=== PATIENT | male | born 1960 | race Caucasian/White ===

== ENCOUNTER 2016-05-01 06:13 | Emergency (ER) | payer OTHER ==
[~2016-05-01] VITALS: Ht 167.6 cm; Wt 90.1 kg
[~2016-05-01 06:13] MED LIST: ALBUAER2 PO; ANT25 PO; ATR25 PO; FLUT0.15 NAE; FLV1 PO; FRS/40 PO; LCTL30 PO; OMEP20CA9 PO; ONDA4TAB46 PO; RIFA550T2 PO; SPRN100 PO; THIA100T11 PO; VALA1TAB31 PO; VTMB12100 PO
[2016-05-01 06:18] VITALS: Ht 167.6 cm; Wt 90.1 kg
[2016-05-01] MEDS ORDERED: SODIUM CHLORIDE 0.9% 1000ML 1,000 ML IV STA (06:40)
[2016-05-01] MEDS ORDERED: ONDANSETRON INJ 2 MG/ML 2 ML VIAL IV PRN (06:45)
[2016-05-01] MEDS ORDERED: VNTHFA/IN INH (06:54)
[2016-05-01 06:56] LABS: ALT/SGPT 37 U/L (12-78); BLOOD UREA NITROGEN 14 mg/dl (7-18); BUN/CREATININE RATIO 10.8 (10-20); CALCIUM 9.2 mg/dl (8.5-10.1); CARBON DIOXIDE 23 mmol/L (21-32); CHLORIDE 98 mmol/L (98-107); GLUCOSE 115 mg/dl (70-99); POTASSIUM 3.5 mmol/L (3.5-5.1); SODIUM 133 mmol/L (136-145)
--- NOTE | 2016-05-01 06:59 | EMERGENCY ROOM VISIT NOTE ---
History Report prepared by Stanley: Dakota Richardson Under the Supervision of: Dr. Kendall Faye M.D. First contact with patient: 06:36 Chief Complaint: ABDOMINAL PAIN Stated Complaint: ABDOMINAL PAIN Nursing Triage Summary: PT REPORTS 3 day of abdominal pain with a hx of cirrohsis , pt states now my head hurts and this means my ammonia level is increased , and when I move my head I feel nauseated reports increased pain with BM X 2 days. History of Present Illness The patient is a 56 year old male who presents to the Emergency Room with complaints of persistent abdominal pain for the past 3 days. The patient also complains of headache and nausea. He describes the headache as a pressure. The patient thinks this is because his ammonia levels are high. The discomfort is relieved by resting and laying down. The patient notes that he has a history of cirrhosis and used to be a heavy drinker. He denies any trouble moving his bowels or passing urine. Source of History: patient Onset: 3 days Position: abdomen Timing: other (persistent) Modifying Factors (Relieving): rest, other (laying down) Associated Symptoms: + headache, No urinary symptoms Note: Denies: trouble moving his bowels Review of Systems All systems have been listed, reviewed, and are negative other than those previously mentioned. Please see Additional Medical History Sheet. 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 (7) Genital herpes (8) Hepatic encephalopathy (9) History of portal vein thrombosis (10) Portal hypertensive gastropathy (11) Thrombocytopenia (12) Tobacco Use Disorder Surgical Problems: (1) History of carpal tunnel surgery (2) History of dental surgery Family History Alcohol abuse SISTER Cancer MOTHER (Lymphoma) Diabetes mellitus FATHER Heart disease Hypertension Social History Smoking Status: Former Smoker Alcohol Use: none Drug Use: none Marital Status: , in relationship Housing Status: lives alone Occupation Status: unemployed Current/Historical Medications Scheduled Cyanocobalamin (Vitamin B-12), 100 MCG PO QAM Fluticasone Propionate (Nasal) (Flonase Allergy Relief), 2 SPRAYS GUANAKO DAILY Folic Acid (Folic Acid), 1 MG PO QAM Furosemide (Lasix), 40 MG PO BID Lactulose (Lactulose), 2 TBS PO QID Omeprazole (Prilosec), 40 MG PO DAILY Rifaximin (Xifaxan), 550 MG PO BID Spironolactone (Spironolactone), 300 MG PO DAILY Thiamine Hcl (Vitamin B-1), 100 MG PO QAM Valacyclovir Hcl (Valtrex), 1 GM PO QAM Scheduled PRN Albuterol Hfa (Ventolin Hfa), 2 PUFFS INH Q4 PRN for SOB/Wheezing Hydroxyzine HCl (Hydroxyzine HCl), 25 MG PO Q6 PRN for Anxiety Ondansetron Hcl (Zofran), 4 MG PO Q6 PRN for Nausea Allergies Coded Allergies: No Known Allergies (Unverified , 05/01/16) Physical Exam Vital Signs Date Time Temp Pulse Resp B/P Pulse Ox O2 Delivery O2 Flow Rate FiO2 05/01/16 15:31 36.4 80 18 125/75 98 05/01/16 15:31 80 18 125/75 98 Room Air 05/01/16 11:51 80 18 123/77 98 Room Air 05/01/16 10:00 72 18 131/70 100 Room Air 05/01/16 09:07 84 05/01/16 07:44 73 16 109/74 93 Room Air 05/01/16 06:23 76 05/01/16 06:18 36.4 78 18 142/82 96 Room Air Physical Exam GENERAL: Patient awake, alert, oriented x 3. Patient follows commands. Patient does not appear toxic. Patient is adequately hydrated and well- nourished. SKIN: No erythema, pallor, cyanosis or rash HEENT: Normal head, pupils equal, reactive to light and accommodation. Oral cavity is edentulous. Neck: Without adenopathy, no neck vein distention. LUNGS: Clear to auscultation. No wheezes, no rales, no rhonchi. HEART: No murmurs. No gallops. No rubs ABDOMEN: Slightly distended but nontender. No masses, no rebound, no hepatomegaly or splenomegaly. EXTREMITIES: No signs of trauma. No pedal or pretibial edema. No calf or thigh tenderness. NEUROLOGIC: Cranial nerves II-XII within normal limits. No gross motor sensory function deficits. Medical Decision & Procedures ER Provider Diagnostic Interpretation: CT results are interpretations by the radiologist and per my review. CT ABD/PELVIS IV AND ORAL CONT CLINICAL HISTORY: Abdominal pain. Cirrhosis. Nausea, vomiting. COMPARISON STUDY: 11/18/2015 TECHNIQUE: Following the IV administration of 93 mL of Optiray-320, CT scan of the abdomen and pelvis was performed from the lung bases to the proximal femurs. Images are reviewed in the axial, sagittal, and coronal planes. IV contrast was administered without complication. CT DOSE: 881.22 mGycm FINDINGS: Lower chest: There is mild bibasilar atelectasis Liver: The liver has a nodular serosal pattern consistent with cirrhosis. No focal hepatic masses are visualized. There is recanalization of the umbilical vein. Gallbladder: There is minimal pericholecystic edema/fluid, likely secondary to hepatocellular disease. Spleen: The spleen is enlarged measuring 15 cm Pancreas: Unremarkable. Adrenal glands: Unremarkable. Kidneys: There is symmetric renal cortical enhancement. The kidneys are normal in size without hydronephrosis. Bowel: There are no transition zones indicate bowel obstruction. The appendix appears normal. There is no acute diverticulitis. Peritoneum: There is no intraperitoneal free air or abdominal ascites. Vasculature: The abdominal aorta is normal in course and caliber. Adenopathy: None. Pelvic viscera: The bladder, and pelvic viscera are unremarkable. Skeletal structures: No destructive osseous lesions are seen. IMPRESSION: 1. Hepatic cirrhosis with evidence of portal hypertension and splenomegaly. 2. No evidence of bowel obstruction. No evidence of free air 3. Normal appendix. No acute inflammatory changes Electronically signed by: Layo Murillo M.D. 05/01/2016 1:04 PM Dictated Date/Time: 05/01/2016 1:00 PM Laboratory Results 05/01/16 06:25 Red Blood Count 4.42, Mean Corpuscular Volume 97.3, Mean Corpuscular Hemoglobin 35.7, Mean Corpuscular Hemoglobin Concent 36.7, Mean Platelet Volume 12.2, Neutrophils (%) (Auto) 54.6, Lymphocytes (%) (Auto) 28.9, Monocytes (%) (Auto) 12.6, Eosinophils (%) (Auto) 2.9, Basophils (%) (Auto) 0.9, Neutrophils # (Auto ) 3.79, Lymphocytes # (Auto) 2.00, Monocytes # (Auto) 0.87, Eosinophils # (Auto ) 0.20, Basophils # (Auto) 0.06 05/01/16 06:25 Test 05/01/16 06:25 05/01/16 06:55 05/01/16 09:04 White Blood Count 6.93 K/uL (4.8-10.8) Red Blood Count 4.42 M/uL (4.7-6.1) Hemoglobin 15.8 g/dL (14.0-18.0) Hematocrit 43.0 % (42-52) Mean Corpuscular Volume 97.3 fL (80-100) Mean Corpuscular Hemoglobin 35.7 pg (25-34) Mean Corpuscular Hemoglobin Concent 36.7 g/dl (32-36) Platelet Count 72 K/uL (130-400) Mean Platelet Volume 12.2 fL (7.4-10.4) Neutrophils (%) (Auto) 54.6 % Lymphocytes (%) (Auto) 28.9 % Monocytes (%) (Auto) 12.6 % Eosinophils (%) (Auto) 2.9 % Basophils (%) (Auto) 0.9 % Neutrophils # (Auto) 3.79 K/uL (1.4-6.5) Lymphocytes # (Auto) 2.00 K/uL (1.2-3.4) Monocytes # (Auto) 0.87 K/uL (0.11-0.59) Eosinophils # (Auto) 0.20 K/uL (0-0.5) Basophils # (Auto) 0.06 K/uL (0-0.2) RDW Standard Deviation 50.2 fL (36.4-46.3) RDW Coefficient of Variation 14.0 % (11.5-14.5) Immature Granulocyte % (Auto) 0.1 % Immature Granulocyte # (Auto) 0.01 K/uL (0.00-0.02) Anion Gap 12.0 mmol/L (3-11) Est Creatinine Clear Calc Drug Dose 66.7 ml/min Estimated GFR () 70.7 Estimated GFR (Non- 61.0 BUN/Creatinine Ratio 10.8 (10-20) Calcium Level 9.2 mg/dl (8.5-10.1) Total Bilirubin 1.6 mg/dl (0.2-1) Aspartate Amino Transf (AST/SGOT) 57 U/L (15-37) Alanine Aminotransferase (ALT/SGPT) 37 U/L (12-78) Alkaline Phosphatase 93 U/L (45-117) Troponin I < 0.015 ng/ml (0-0.045) Total Protein 8.0 gm/dl (6.4-8.2) Albumin 3.6 gm/dl (3.4-5.0) Globulin 4.4 gm/dl (2.5-4.0) Albumin/Globulin Ratio 0.8 (0.9-2) Lipase 224 U/L (73-393) Ammonia 69.0 umol/L (11-32) Urine Color YELLOW Urine Appearance CLEAR (CLEAR) Urine pH 6.5 (4.5-7.5) Urine Specific Goode 1.018 (1.000-1.030) Urine Protein NEG (NEG) Urine Glucose (UA) NEG (NEG) Urine Ketones TRACE (NEG) Urine Occult Blood NEG (NEG) Urine Nitrite POS (NEG) Urine Bilirubin NEG (NEG) Urine Urobilinogen NEG (NEG) Urine Leukocyte Esterase SMALL (NEG) Urine WBC (Auto) 5-10 /hpf (0-5) Urine RBC (Auto) 0-4 /hpf (0-4) Urine Hyaline Casts (Auto) 1-5 /lpf (0-5) Urine Epithelial Cells (Auto) >30 /lpf (0-5) Urine Bacteria (Auto) 2+ (NEG) Urine Mucus PRESENT (NONE PRSENT) Laboratory results as stated above per my review. Medications Administered Medications (Trade) Dose Ordered Sig/Kiya Route Start Time Stop Time Status Last Admin Dose Admin Ondansetron HCl 4 mg 4 mg Q1HWA PRN IV 05/01/16 06:45 05/01/16 15:47 DC 05/01/16 06:58 4 MG Sodium Chloride (Nss 1000ml) 1,000 ml @ 300 mls/hr Q3H20M STAT IV 05/01/16 06:40 05/01/16 09:59 DC 05/01/16 07:01 300 MLS/HR ECG Indication: abdominal pain Rate (beats per minute): 83 Rhythm: normal sinus Findings: no acute ischemic change, prolonged QT, no ectopy ED Course 0636: Past medical records reviewed. The patient was evaluated in room B6. A complete history and physical examination was performed. 0640: Ordered NSS 1000 ml @ 300 mls/hr IV. 0645: Ordered Zofran Inj 4 mg IV/nausea. 0955: At this time, the patient was reevaluated and he was resting. The patient was still having discomfort. Further testing was discussed and ordered. 1341: At this time, I reevaluated the patient and he was starting to feel better. He wants to try to walk and eat. 1457: Upon reevaluation, the patient appeared to have improvement of his symptoms. I discussed today's findings with him. He verbalized agreement of the treatment plan. The patient was discharged home. Medical Decision Differential diagnoses include hepatic failure, hyperammonemia, cirrhosis, or metabolic disorder. Multiple labs, EKG and imaging were obtained. Please see above. The patient has chronic cirrhosis. He was concerned that his ammonia level was too high. It is elevated but not nearly as high as it has been in the past. I do not believe that is the cause for his distress. The patient is not anemic. Electrolytes are grossly within normal range. The patient was given IV fluids. CT does not really obstruction or significant ascites. Urinalysis reveals some white cells but this may be a contaminated specimen. Culture is pending. Patient did have some improvement. He was able to ambulate without difficulty. I believe the patient can safely return home but I expect him to have recurrent problems with his cirrhosis. Case management also saw the patient to see about home health. Impression Primary Impression: Hepatic insufficiency Additional Impression: History of cirrhosis Scribe Attestation The scribe's documentation has been prepared under my direction and personally reviewed by me in its entirety. I confirm that the note above accurately reflects all work, treatment, procedures, and medical decision making performed by me. Departure Information Dispostion Home / Self-Care Referrals Najma Garcia M.D. (PCP) Forms Call Back Authorization, HOME CARE DOCUMENTATION FORM, IMPORTANT VISIT INFORMATION Patient Instructions My [facility] Additional Instructions Continue all of your current medications as prescribed. Drink extra fluids. Zofran as needed for nausea. Follow-up with your family physician and or your architectural model maker this week. Problem Qualifiers
[2016-05-01 07:00] LABS: ALB/GLOB RATIO 0.8 (0.9-2); ALKALINE PHOSPHATASE 93 U/L (45-117); AST/SGOT 57 U/L (15-37)
[2016-05-01 07:45] LABS: BASO % 0.9 %; BASO ABS # 0.06 K/uL (0-0.2); COMPLETE YES; EOS % 2.9 %; IG% 0.1 %; LYMPH % 28.9 %; MEAN CELL VOLUME 97.3 fL (80-100); MEAN CORPUSCULAR HEMOGLOBIN 35.7 pg (25-34); MEAN CORPUSCULAR HGB CONC 36.7 g/dl (32-36); MEAN PLATELET VOLUME 12.2 fL (7.4-10.4); MONO % 12.6 %; NEUT % 54.6 %; PLATELET COUNT 72 K/uL (130-400); RED BLOOD COUNT 4.42 M/uL (4.7-6.1); WHITE BLOOD COUNT 6.93 K/uL (4.8-10.8)
[2016-05-01 09:18] LABS: URINE APPEARANCE CLEAR (CLEAR); URINE BILIRUBIN NEG (NEG); URINE COLOR YELLOW; URINE EPITHELIAL CELL AUTO >30 /lpf (0-5); URINE NITRITE POS (NEG); URINE PH 6.5 (4.5-7.5); URINE SPECIFIC GRAVITY 1.018 (1.000-1.030); UROBILINOGEN NEG (NEG); ZZUR CULT IF INDIC CLEAN CATCH YES
[2016-05-01 09:23] LABS: MANUAL MICROSCOPIC REQUIRED? NO; REVIEW REQ? YES
[2016-05-01 09:42] LABS: URINE MUCUS PRESENT (NONE PRSENT)
[2016-05-01] MEDS ORDERED: OPTIRAY 320 IV PRN (12:30)
--- NOTE | 2016-05-01 13:05 | DIAGNOSTIC IMAGING REPORT ---
CT ABD/PELVIS IV AND ORAL CONT CLINICAL HISTORY: Abdominal pain. Cirrhosis. Nausea, vomiting. COMPARISON STUDY: 11/18/2015 TECHNIQUE: Following the IV administration of 93 mL of Optiray-320, CT scan of the abdomen and pelvis was performed from the lung bases to the proximal femurs. Images are reviewed in the axial, sagittal, and coronal planes. IV contrast was administered without complication. CT DOSE: 881.22 mGycm FINDINGS: Lower chest: There is mild bibasilar atelectasis Liver: The liver has a nodular serosal pattern consistent with cirrhosis. No focal hepatic masses are visualized. There is recanalization of the umbilical vein. Gallbladder: There is minimal pericholecystic edema/fluid, likely secondary to hepatocellular disease. Spleen: The spleen is enlarged measuring 15 cm Pancreas: Unremarkable. Adrenal glands: Unremarkable. Kidneys: There is symmetric renal cortical enhancement. The kidneys are normal in size without hydronephrosis. Bowel: There are no transition zones indicate bowel obstruction. The appendix appears normal. There is no acute diverticulitis. Peritoneum: There is no intraperitoneal free air or abdominal ascites. Vasculature: The abdominal aorta is normal in course and caliber. Adenopathy: None. Pelvic viscera: The bladder, and pelvic viscera are unremarkable. Skeletal structures: No destructive osseous lesions are seen. IMPRESSION: 1. Hepatic cirrhosis with evidence of portal hypertension and splenomegaly. 2. No evidence of bowel obstruction. No evidence of free air 3. Normal appendix. No acute inflammatory changes Electronically signed by: Layo Murillo M.D. 05/01/2016 1:04 PM Dictated Date/Time: 05/01/2016 1:00 PM
[2016-05-01 15:31] VITALS: BP 125/75; PULSE 80; TEMP 36.4; O2SAT 98
--- NOTE | 2016-05-03 17:45 | Pharmacy Progress Note ---
ED Pharmacist Culture FollowUp Date of Service: May 03, 2016. Coag negative Staph growing from the patient's urine culture. UA with multiple epithelial cells. Patient denied trouble passing urine. Likely contaminant. Called patient - denied dysuria in addition to urinary urgency/hesitancy. No antibiotics needed at this time. Counseled to see PCP if any of aforementioned symptoms develop. Case discussed w Dr. Sorto.
== END 2016-05-01 15:32 | disposition home or self-care (01) ==
LOC: EDBD 06:13 → C.EDB 06:14
DX: K72.90 Hepatic failure, unspecified without coma (principal); K70.31 Alcoholic cirrhosis of liver with ascites; I85.10 Secondary esophageal varices without bleeding; Z86.2 Personal history of diseases of the blood and blood-forming organs and certain disorders involving the immune mechanism; Z86.718 Personal history of other venous thrombosis and embolism; D69.6 Thrombocytopenia, unspecified; Z87.891 Personal history of nicotine dependence; Z80.9 Family history of malignant neoplasm, unspecified; Z83.3 Family history of diabetes mellitus; Z82.49 Family history of ischemic heart disease and other diseases of the circulatory system; Z79.899 Other long term (current) drug therapy

== ENCOUNTER 2016-05-17 21:33 | Emergency (ER) | payer OTHER ==
[~2016-05-17] VITALS: Ht 167.6 cm; Wt 93.0 kg
[2016-05-17 21:20] VITALS: TEMP 36.7; Ht 167.6 cm; Wt 93.0 kg
[~2016-05-17 21:33] MED LIST changes: -ALBUAER2 PO; -ANT25 PO; -FLUT0.15 NAE; -FLV1 PO; -FRS/40 PO; -LCTL30 PO; -ONDA4TAB46 PO; -RIFA550T2 PO; -SPRN100 PO; -THIA100T11 PO; -VALA1TAB31 PO; -VTMB12100 PO
[2016-05-17] MEDS ORDERED: HYDROmorphone INJ 1 MG/ML SYR IV STA ×2 (22:28→23:20)
[2016-05-17] MEDS ORDERED: ONDANSETRON INJ 2 MG/ML 2 ML VIAL IV STA (22:28)
[2016-05-17] MEDS ORDERED: SODIUM CHLORIDE 0.9% 1000ML 1,000 ML IV STA (22:28)
--- NOTE | 2016-05-17 22:44 | EMERGENCY ROOM VISIT NOTE ---
History Report prepared by Stanley: Jami Newby Under the Supervision of: Dr. Efra Seymour M.D. First contact with patient: 22:17 Chief Complaint: LEG PAIN,LEG INJURY Stated Complaint: ARM & LEG CRAMPING History of Present Illness The patient is a 56 year old male who presents to the Emergency Room with complaints of persistent bilateral leg pain that began two hours prior to arrival. He currently rates his discomfort as an 8/10 in severity and describes his pain as a cramping pain. The patient states that he has had similar pain in the past, but not this severe. He states that two hours ago he first started his right arm going numb. The patient states that he went to lie down and then noted that he could not get out of bed because his legs cramped. The patient noted a stabbing pain in his left chest. He states that his leg pain has been worsened with movement. The patient additionally notes a pressure headache in his head. Source of History: patient Onset: two hours prior to arrival Position: leg (bilateral) Symptom Intensity: 8/10 Quality: cramping Timing: other (persistent) Modifying Factors (Worsening): movement Associated Symptoms: + chest pain (stabbing left chest), + headache ( pressure), + numbness (right arm) Review of Systems See HPI for pertinent positives & negatives. A total of 10 systems reviewed and were otherwise negative. 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 (7) Genital herpes (8) Hepatic encephalopathy (9) History of portal vein thrombosis (10) Portal hypertensive gastropathy (11) Thrombocytopenia (12) Tobacco Use Disorder Surgical Problems: (1) History of carpal tunnel surgery (2) History of dental surgery Family History Alcohol abuse SISTER Cancer MOTHER (Lymphoma) Diabetes mellitus FATHER Heart disease Hypertension Social History Smoking Status: Former Smoker Alcohol Use: none Drug Use: none Marital Status: , in relationship Housing Status: lives alone Occupation Status: unemployed Current/Historical Medications Scheduled Cyanocobalamin (Vitamin B-12), 100 MCG PO QAM Doxycycline Monohydrate (Monodox), 100 MG PO BID Folic Acid (Folic Acid), 1 MG PO QAM Furosemide (Lasix), 40 MG PO BID Lactulose (Lactulose), 2 TBS PO QID Omeprazole (Prilosec), 40 MG PO DAILY Rifaximin (Xifaxan), 550 MG PO BID Spironolactone (Spironolactone), 300 MG PO DAILY Thiamine Hcl (Vitamin B-1), 100 MG PO QAM Valacyclovir Hcl (Valtrex), 1 GM PO QAM Scheduled PRN Albuterol Hfa (Ventolin Hfa), 2 PUFFS INH Q4 PRN for SOB/Wheezing Fluticasone Propionate (Nasal) (Flonase Allergy Relief), 2 SPRAYS GUANAKO DAILY PRN for PRN\ Hydroxyzine HCl (Hydroxyzine HCl), 25 MG PO Q6 PRN for Anxiety Ondansetron Hcl (Zofran), 4 MG PO Q6 PRN for Nausea Allergies Coded Allergies: No Known Allergies (Unverified , 05/17/16) Physical Exam Vital Signs Date Time Temp Pulse Resp B/P Pulse Ox O2 Delivery O2 Flow Rate FiO2 05/18/16 02:34 84 18 121/73 97 05/18/16 01:59 78 16 124/81 96 Room Air 05/18/16 00:20 79 20 98/84 94 Room Air 05/17/16 23:20 76 18 121/70 94 Room Air 05/17/16 21:38 72 05/17/16 21:20 36.7 77 20 130/72 97 Room Air Physical Exam GENERAL: Patient is a healthy-appearing well-nourished HEAD: Normocephalic atraumatic EYES: Ocular movements intact pupils equal and react to light OROPHARYNX mucous membranes are moist no exudates present no erythema or edema present NECK: Supple no nuchal rigidity CHEST: Good equal expansion LUNGS: Clear and equal to auscultation CARDIAC: Normal S1 and S2 ABDOMEN: Soft nontender no guarding BACK: No CVA tenderness EXTREMITIES: No pain upon palpation normal muscle strength in all groups no clubbing cyanosis or edema NEURO: Patient is following commands is answering questions appropriately. Alert and oriented x3 Cranial Nerves 2-12 grossly intact Medical Decision & Procedures ER Provider Diagnostic Interpretation: Radiology results as stated below per my review and radiologist interpretation: HEAD CT NONCONTRAST CT DOSE: 614.27 mGy.cm HISTORY: Pain. Change in mental status. Pt c/o head pressure TECHNIQUE: Multiaxial CT images of the head were performed without the use of intravenous contrast. Comparison: 11/05/2015 Findings: The paranasal sinuses and mastoid air cells are clear. The calvarium and skull base are intact. The ventricles and sulci are within normal limits. There is no mass, hematoma, midline shift, or acute infarct. Impression: No acute intracranial abnormality. No change from the prior study. Electronically signed by: Samir Garcia M.D. 05/17/2016 10:56 PM Dictated Date/Time: 05/17/2016 10:55 PM One view chest x-ray interpreted by me: no pneumonia, congestion, or pneumothorax. Laboratory Results 05/17/16 21:45 Red Blood Count 3.74, Mean Corpuscular Volume 96.5, Mean Corpuscular Hemoglobin 35.3, Mean Corpuscular Hemoglobin Concent 36.6, Mean Platelet Volume 12.1, Neutrophils (%) (Auto) 51.2, Lymphocytes (%) (Auto) 25.4, Monocytes (%) (Auto) 19.6, Eosinophils (%) (Auto) 2.9, Basophils (%) (Auto) 0.9, Neutrophils # (Auto ) 2.80, Lymphocytes # (Auto) 1.39, Monocytes # (Auto) 1.07, Eosinophils # (Auto ) 0.16, Basophils # (Auto) 0.05 05/17/16 21:45 Test 05/17/16 21:45 05/17/16 22:28 05/18/16 00:20 White Blood Count 5.47 K/uL (4.8-10.8) Red Blood Count 3.74 M/uL (4.7-6.1) Hemoglobin 13.2 g/dL (14.0-18.0) Hematocrit 36.1 % (42-52) Mean Corpuscular Volume 96.5 fL (80-100) Mean Corpuscular Hemoglobin 35.3 pg (25-34) Mean Corpuscular Hemoglobin Concent 36.6 g/dl (32-36) Platelet Count 56 K/uL (130-400) Mean Platelet Volume 12.1 fL (7.4-10.4) Neutrophils (%) (Auto) 51.2 % Lymphocytes (%) (Auto) 25.4 % Monocytes (%) (Auto) 19.6 % Eosinophils (%) (Auto) 2.9 % Basophils (%) (Auto) 0.9 % Neutrophils # (Auto) 2.80 K/uL (1.4-6.5) Lymphocytes # (Auto) 1.39 K/uL (1.2-3.4) Monocytes # (Auto) 1.07 K/uL (0.11-0.59) Eosinophils # (Auto) 0.16 K/uL (0-0.5) Basophils # (Auto) 0.05 K/uL (0-0.2) RDW Standard Deviation 48.6 fL (36.4-46.3) RDW Coefficient of Variation 13.7 % (11.5-14.5) Immature Granulocyte % (Auto) 0.0 % Immature Granulocyte # (Auto) 0.00 K/uL (0.00-0.02) Large Platelets 1+ Anion Gap 11.0 mmol/L (3-11) Est Creatinine Clear Calc Drug Dose 67.7 ml/min Estimated GFR () 70.7 Estimated GFR (Non- 61.0 BUN/Creatinine Ratio 10.8 (10-20) Calcium Level 8.7 mg/dl (8.5-10.1) Total Bilirubin 1.4 mg/dl (0.2-1) Aspartate Amino Transf (AST/SGOT) 47 U/L (15-37) Alanine Aminotransferase (ALT/SGPT) 30 U/L (12-78) Alkaline Phosphatase 78 U/L (45-117) Total Creatine Kinase 173 U/L (39-308) Creatine Kinase MB 1.0 ng/ml (0.5-3.6) Troponin I < 0.015 ng/ml (0-0.045) Total Protein 6.8 gm/dl (6.4-8.2) Albumin 3.4 gm/dl (3.4-5.0) Globulin 3.4 gm/dl (2.5-4.0) Albumin/Globulin Ratio 1.0 (0.9-2) Creatine Kinase MB Ratio (0-3.0) Lyme Disease IgG Antibody POS (NEG) Labs reviewed by ED physician. Medications Administered Medications (Trade) Dose Ordered Sig/Kiya Route Start Time Stop Time Status Last Admin Dose Admin Sodium Chloride (Nss 1000ml) 1,000 ml @ 999 mls/hr Q1H1M STAT IV 05/17/16 22:28 05/17/16 23:28 DC 05/17/16 22:40 999 MLS/HR Hydromorphone HCl (Dilaudid Inj) 1 mg NOW STAT IV 05/17/16 22:28 05/17/16 22:31 DC 05/17/16 22:42 1 MG Ondansetron HCl (Zofran Inj) 4 mg NOW STAT IV 05/17/16 22:28 05/17/16 22:31 DC 05/17/16 22:40 4 MG Hydromorphone HCl (Dilaudid Inj) 1 mg NOW STAT IV 05/17/16 23:20 05/17/16 23:22 DC 05/17/16 23:29 1 MG Ketorolac Tromethamine (Toradol Inj) 30 mg NOW STAT IV 05/17/16 23:57 05/17/16 23:58 DC 05/18/16 00:15 30 MG Prochlorperazine Edisylate (Compazine Inj) 10 mg NOW STAT IV 05/17/16 23:57 05/17/16 23:58 DC 05/18/16 00:15 10 MG Diphenhydramine HCl (Benadryl Inj) 25 mg NOW STAT IV 05/17/16 23:57 05/17/16 23:58 DC 05/18/16 00:15 25 MG Magnesium Sulfate (Magnesium Sulfate) 1 gm NOW STAT IV 05/17/16 23:57 05/17/16 23:58 DC 05/18/16 00:15 1 GM Ceftriaxone Sodium (Rocephin Inj) 2 gm NOW STAT IV 05/18/16 01:28 05/18/16 01:29 DC 05/18/16 01:41 2 GM Doxycycline Hyclate 100 mg 100 mg ONE STAT PO 05/18/16 01:28 05/18/16 01:29 DC 05/18/16 01:41 100 MG Promethazine HCl/ Sodium Chloride (Phenergan Inj/ Nss 50ml) 51 ml @ 204 mls/hr NOW STAT IV 05/18/16 01:29 05/18/16 01:43 DC 05/18/16 01:54 204 MLS/HR ECG Indication: weakness Rate (beats per minute): 74 Rhythm: normal sinus Findings: no acute ischemic change, no ectopy ED Course 2222: Past medical records reviewed. The patient was evaluated in room C6. A complete history and physical examination was performed. 2228: Ordered Zofran Inj 4 mg IV, Dilaudid Inj 1 mg IV, Sodium Chloride 1000 ml @ 999 mls/hr IV. 2315: I reevaluated the patient and he does not feel any better. He will have further testing. 2320: Ordered Dilaudid Inj 1 mg IV. Medical Decision Differential diagnosis: Etiologies such as appendicitis, diverticulitis, PUD, biliary pathology, UTI, pancreatitis, obstruction, mesenteric ischemia, aortic pathology, infections, inflammatory bowel disease, renal colic, as well as others were entertained. This is a 56-year-old male who presents emergency Department with multiple complaints. The patient is complaining of head pressure along with right arm numbness along with bilateral leg cramping. The right arm numbness has been going on since at least 4 PM today. Aced on this finding I would expect this to show up on his CAT scan of his head if this were an acute stroke. As such it did not. In addition the patient also has a normal CTA head and neck. Because of the acuteness of the issue he was sent for an MRI of the head. His Lyme test is positive here in the emergency department for this reason he was started on 2 g of Rocephin here. I will continue the patient on doxycycline however I feel the patient needs to follow up with infectious disease. He was given a migraine cocktail for his symptoms which included Toradol Compazine and Benadryl. He was also fed in the emergency department. He has no evidence of meningitis or encephalitis on examination. Impression Primary Impression: Right upper extremity numbness Additional Impression: Lyme disease Scribe Attestation The scribe's documentation has been prepared under my direction and personally reviewed by me in its entirety. I confirm that the note above accurately reflects all work, treatment, procedures, and medical decision making performed by me. Departure Information Dispostion Home / Self-Care Prescriptions Doxycycline Monohydrate (Monodox) 100 Mg Cap 100 MG PO BID for 21 Days, #42 CAP Prov: Efra Seymour MD 05/18/16 Referrals Ezekiel Ruiz MD (PCP) Patient Instructions My [facility] Problem Qualifiers
[2016-05-17 22:46] LABS: HEMATOCRIT 36.1 % (42-52); MEAN CELL VOLUME 96.5 fL (80-100); MEAN CORPUSCULAR HEMOGLOBIN 35.3 pg (25-34); MEAN CORPUSCULAR HGB CONC 36.6 g/dl (32-36); MEAN PLATELET VOLUME 12.1 fL (7.4-10.4); PLATELET COUNT 56 K/uL (130-400); RED BLOOD COUNT 3.74 M/uL (4.7-6.1); WHITE BLOOD COUNT 5.47 K/uL (4.8-10.8)
[2016-05-17 22:49] LABS: BASO % 0.9 %; BASO ABS # 0.05 K/uL (0-0.2); COMPLETE YES; EOS % 2.9 %; LARGE PLATELETS 1+; LYMPH % 25.4 %; LYMPH ABS # 1.39 K/uL (1.2-3.4); MONO % 19.6 %; NEUT % 51.2 %
[2016-05-17 22:58] LABS: ALT/SGPT 30 U/L (12-78); AST/SGOT 47 U/L (15-37); BLOOD UREA NITROGEN 14 mg/dl (7-18); BUN/CREATININE RATIO 10.8 (10-20); CALCIUM 8.7 mg/dl (8.5-10.1); CARBON DIOXIDE 24 mmol/L (21-32); CHLORIDE 104 mmol/L (98-107); GLUCOSE 75 mg/dl (70-99); POTASSIUM 4.1 mmol/L (3.5-5.1); SODIUM 139 mmol/L (136-145)
--- NOTE | 2016-05-17 22:58 | DIAGNOSTIC IMAGING REPORT ---
HEAD CT NONCONTRAST CT DOSE: 614.27 mGy.cm HISTORY: Pain. Change in mental status. Pt c/o head pressure TECHNIQUE: Multiaxial CT images of the head were performed without the use of intravenous contrast. Comparison: 11/05/2015 Findings: The paranasal sinuses and mastoid air cells are clear. The calvarium and skull base are intact. The ventricles and sulci are within normal limits. There is no mass, hematoma, midline shift, or acute infarct. Impression: No acute intracranial abnormality. No change from the prior study. Electronically signed by: Samir Garcia M.D. 05/17/2016 10:56 PM Dictated Date/Time: 05/17/2016 10:55 PM
[2016-05-17 23:03] LABS: ALKALINE PHOSPHATASE 78 U/L (45-117); CKMB/CK RATIO 0.6 (0-3.0)
[2016-05-17] MEDS ORDERED: OPTIRAY 320 IV PRN (23:30)
[2016-05-17] MEDS ORDERED: PROCHLORPERAZINE 5 MG/ML 2 ML VIAL IV STA (23:57)
[2016-05-17] MEDS ORDERED: MAGNESIUM SULFATE 1GM / D5W 1 GM BAG IV STA (23:57)
[2016-05-17] MEDS ORDERED: DiphenhydrAMINE HCL 50 MG/ML VIAL IV STA (23:57)
[2016-05-17] MEDS ORDERED: KETOROLAC TROMETHAMINE 30 MG/ML VIAL IV STA (23:57)
[2016-05-18 01:26] LABS: LYME DISEASE AB IGG POS (NEG); LYME DISEASE AB IGM EQUIVOCAL (NEG)
[2016-05-18] MEDS ORDERED: DOXYCYCLINE HYCLATE 100 MG CAP PO STA (01:28)
[2016-05-18] MEDS ORDERED: CEFTRIAXONE SOD INJ 1 GM ADDVIAL IV STA (01:28)
[2016-05-18] MEDS ORDERED: PROMETHAZINE HCL INJ 25 MG in SODIUM CHLORIDE 0.9% 50ML 50 ML IV STA (01:29)
[2016-05-18] MEDS ORDERED: DOXY100C76 PO (02:10)
[2016-05-18 02:34] VITALS: BP 121/73; PULSE 84; O2SAT 97
--- NOTE | 2016-05-18 07:19 | DIAGNOSTIC IMAGING REPORT ---
MRI OF THE BRAIN WITHOUT IV CONTRAST CLINICAL HISTORY: Right upper extremity numbness. COMPARISON STUDY: CT of the brain dated 05/17/2016. MRI of the brain dated 11/15/2015. TECHNIQUE: MRI of the brain was performed utilizing various T1 and T2-weighted sequences in the axial, sagittal, and coronal planes. IV contrast was not administered for this examination. The examination is modestly degraded by motion artifact. FINDINGS: Brain parenchyma: There is minimal patchy subcortical and periventricular microangiopathic disease. The brain parenchyma is otherwise normal in appearance. There is no hemorrhage or mass effect. There is no restricted diffusion to suggest acute ischemia. Michel-white matter differentiation is preserved. No extra-axial fluid collection is seen. The cerebellar tonsils are normal in configuration. Ventricles, sulci, and cisterns: Normal in configuration. Pituitary and sella: Unremarkable. Intracranial vasculature: Normal flow voids are maintained at the skull base. Orbits: The bony orbits are grossly intact. Orbital contents are normal in appearance. Sinuses and mastoids: There is trace fluid within the mastoid air cells. The paranasal sinuses are clear. Calvarium: Unremarkable. Cervical cord: Partially visualized cervical spinal cord is normal in morphology and signal intensity. IMPRESSION: No acute intracranial abnormality. Electronically signed by: Jamil Freedman M.D. 05/18/2016 7:17 AM Dictated Date/Time: 05/18/2016 7:14 AM
--- NOTE | 2016-05-18 07:20 | DIAGNOSTIC IMAGING REPORT ---
NECK CTA HISTORY: Right arm numbness. TECHNIQUE: Multiaxial CT images of the neck were performed following the intravenous administration of contrast to evaluate the major cervical vessels. Maximum intensity projection images were also obtained. All measurements were calculated based on NASCET criteria. COMPARISON STUDY: None. FINDINGS: The aortic arch and proximal great vessels are widely patent. There is no significant stenosis, occlusion, or dissection identified within the bilateral common carotid, internal carotid, or vertebral arteries. IMPRESSION: No significant stenosis, occlusion, or dissection identified within the carotid or vertebral arteries. Electronically signed by: Ángel Wilson M.D. 05/18/2016 7:18 AM Dictated Date/Time: 05/18/2016 7:16 AM
--- NOTE | 2016-05-18 07:25 | DIAGNOSTIC IMAGING REPORT ---
CT ANGIOGRAM OF THE BRAIN CLINICAL HISTORY: Right upper extremity numbness. COMPARISON STUDY: Unenhanced CT of the brain dated 05/17/2016. MRI of the brain dated 11/15/2015. TECHNIQUE: Following the IV administration of 94 cc of Optiray 320, CT angiogram of the brain was performed from the skull base to the vertex. Images are reviewed in the axial, sagittal, and coronal planes. 3-D MIPS images are created and assessed. IV contrast was administered without complication. FINDINGS: Brain parenchyma: Brain parenchyma is normal in appearance. There is no evidence of hemorrhage, mass effect, or acute territorial ischemia by CT criteria. There is no evidence of enhancing mass lesion on these angiogram phase images. No extra-axial fluid collection is seen. Michel-white matter differentiation is preserved. Ventricles, sulci, and cisterns: Normal in configuration. CT angiogram of the brain: The [place] is developmentally complete noting small bilateral posterior communicating arteries. The internal carotid arteries are widely patent, as are the anterior and middle cerebral arteries. The vertebrobasilar system and posterior cerebral arteries are widely patent. The left vertebral artery is dominant. There is no aneurysm, high-grade stenosis, or focal vessel cutoff identified throughout the intracranial circulation. Dural sinuses: Clear as visualized. Orbits: The bony orbits are intact. The orbital contents are normal as visualized. Sinuses and mastoids: The visualized paranasal sinuses are clear. The mastoid air cells are well pneumatized. Calvarium: Unremarkable. IMPRESSION: 1. There is no hemorrhage, mass effect, or evidence of acute territorial ischemia by CT criteria. 2. Unremarkable CT angiogram of the brain. Electronically signed by: Jamil Freedman M.D. 05/18/2016 7:23 AM Dictated Date/Time: 05/18/2016 7:19 AM
--- NOTE | 2016-05-18 07:41 | DIAGNOSTIC IMAGING REPORT ---
SINGLE VIEW CHEST CLINICAL HISTORY: Atypical chest pain. FINDINGS: An AP, portable, upright chest radiograph is compared to study dated 11/05/2015. The examination is degraded by portable technique and apical lordotic positioning. The cardiomediastinal silhouette is unremarkable. The lungs and pleural spaces are clear. No pneumothorax is seen. The bony thorax is grossly intact. IMPRESSION: No active disease in the chest. Electronically signed by: Jamil Freedman M.D. 05/18/2016 7:39 AM Dictated Date/Time: 05/18/2016 7:39 AM
[2016-05-22 23:54] LABS: 18KDIGG BAND REACTIVE (NONREACTIVE); 23KDIGG BAND REACTIVE (NONREACTIVE); 23KDIGM BAND REACTIVE (NONREACTIVE); 28KDIGG BAND REACTIVE (NONREACTIVE); 30KDIGG BAND REACTIVE (NONREACTIVE); 39KDIGG BAND REACTIVE (NONREACTIVE); 39KDIGM BAND NONREACTIVE (NONREACTIVE); 41KDIGG BAND REACTIVE (NONREACTIVE); 41KDIGM BAND NONREACTIVE (NONREACTIVE); 45KDIGG BAND REACTIVE (NONREACTIVE); 58KDIGG BAND REACTIVE (NONREACTIVE); 66KDIGG BAND REACTIVE (NONREACTIVE); 93KDIGG BAND REACTIVE (NONREACTIVE)
--- NOTE | 2016-05-23 11:40 | Pharmacy Progress Note ---
ED Pharmacist Culture FollowUp Date of Service: May 23, 2016. Received notification from the lab today that this patient's Lyme IgG Western Blot is positive. The patient had been dx w/ Lyme dz in the ER on 05/[address] Seymour. He was given Rocephin 2mg IV and Doxy 100mg PO in the ER, then discharged w/ Rx for Doxycycline 100mg PO BID x 21 days and instructed to f/u with infectious disease. No further action required.
[2016-12-07] MEDS ORDERED: VNTHFA/IN INH (06:54)
[2016-12-07] MEDS ORDERED: OMEP40CA41 PO (08:53)
[2016-12-07] MEDS ORDERED: LCTL30 PO (09:54)
[2016-12-07] MEDS ORDERED: ONDA4TAB46 PO (09:54)
[2016-12-07] MEDS ORDERED: VTMB12100 PO (10:46)
[2016-12-07] MEDS ORDERED: FRS/40 PO (10:48)
[2016-12-07] MEDS ORDERED: FLUT0.15 NAE (14:29)
[2016-12-07] MEDS ORDERED: PRED20TA PO (16:31)
[2016-12-07] MEDS ORDERED: ANT25 PO (16:31)
[2016-12-07] MEDS ORDERED: SPIR100T PO (16:34)
[2016-12-07] MEDS ORDERED: FERR1TAB23 PO (16:34)
[2016-12-07] MEDS ORDERED: VALA1TAB31 PO (16:51)
[2016-12-07] MEDS ORDERED: RIFA550T2 PO (16:51)
[2016-12-07] MEDS ORDERED: FLV1 PO (16:51)
[2016-12-07] MEDS ORDERED: SPRN100 PO (19:24)
[2016-12-07] MEDS ORDERED: THIA100T11 PO (19:29)
== END 2016-05-18 02:36 | disposition home or self-care (01) ==
LOC: EDBD 21:33 → C.EDC 21:35 → C.EDA 05-18 02:36
DX: R20.0 Anesthesia of skin (principal); A69.20 Lyme disease, unspecified; F10.20 Alcohol dependence, uncomplicated; K70.31 Alcoholic cirrhosis of liver with ascites; R41.82 Altered mental status, unspecified; D64.9 Anemia, unspecified; D69.6 Thrombocytopenia, unspecified; Z83.3 Family history of diabetes mellitus; Z82.49 Family history of ischemic heart disease and other diseases of the circulatory system; Z87.891 Personal history of nicotine dependence; K72.90 Hepatic failure, unspecified without coma

== ENCOUNTER 2016-05-18 02:49 | Emergency (ER) | payer OTHER ==
[~2016-05-18] VITALS: Ht 167.6 cm; Wt 86.0 kg
[~2016-05-18 02:49] MED LIST changes: +DOXY100C76 PO
[2016-05-18 03:04] VITALS: TEMP 36.9; Ht 167.6 cm; Wt 86.0 kg
--- NOTE | 2016-05-18 03:33 | EMERGENCY ROOM VISIT NOTE ---
History Report prepared by Stanley: Dylan Aguilar Under the Supervision of: Dr. Venessa Donnelly M.D. First contact with patient: 03:20 Chief Complaint: PAIN (GENERALIZED) Stated Complaint: CRAMPS ALL THROUGH BODY History of Present Illness The patient is a 56 year old male who presents to the Emergency Room with complaints of persistent head pain starting a few minutes ago. He describes it to be a pressure in his head. The patient feels lethargic and reports shortness of breath. He was discharged from the Emergency Room about 30 minutes ago after being evaluated for bilateral lower extremity pain. The patient received Compazine prior to discharge. He is unable to get a ride home. He denies chest pain, or any other complaints. Source of History: patient Onset: a few minutes ago Position: head Quality: pressure Timing: other (persistent) Associated Symptoms: No chest pain Review of Systems See HPI for pertinent positives & negatives. A total of 10 systems reviewed and were otherwise negative. 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 (7) Genital herpes (8) Hepatic encephalopathy (9) History of portal vein thrombosis (10) Portal hypertensive gastropathy (11) Thrombocytopenia (12) Tobacco Use Disorder Surgical Problems: (1) History of carpal tunnel surgery (2) History of dental surgery Family History Alcohol abuse SISTER Cancer MOTHER (Lymphoma) Diabetes mellitus FATHER Heart disease Hypertension Social History Smoking Status: Never Smoker Alcohol Use: none Drug Use: none Marital Status: , in relationship Housing Status: lives alone Occupation Status: unemployed Current/Historical Medications Scheduled Cyanocobalamin (Vitamin B-12), 100 MCG PO QAM Doxycycline Monohydrate (Monodox), 100 MG PO BID Folic Acid (Folic Acid), 1 MG PO QAM Furosemide (Lasix), 40 MG PO BID Lactulose (Lactulose), 2 TBS PO QID Omeprazole (Prilosec), 40 MG PO DAILY Rifaximin (Xifaxan), 550 MG PO BID Spironolactone (Spironolactone), 300 MG PO DAILY Thiamine Hcl (Vitamin B-1), 100 MG PO QAM Valacyclovir Hcl (Valtrex), 1 GM PO QAM Scheduled PRN Albuterol Hfa (Ventolin Hfa), 2 PUFFS INH Q4 PRN for SOB/Wheezing Fluticasone Propionate (Nasal) (Flonase Allergy Relief), 2 SPRAYS GUANAKO DAILY PRN for PRN\ Hydroxyzine HCl (Hydroxyzine HCl), 25 MG PO Q6 PRN for Anxiety Ondansetron Hcl (Zofran), 4 MG PO Q6 PRN for Nausea Allergies Coded Allergies: No Known Allergies (Unverified , 05/17/16) Physical Exam Vital Signs Date Time Temp Pulse Resp B/P Pulse Ox O2 Delivery O2 Flow Rate FiO2 05/18/16 07:05 68 15 115/67 96 Room Air 05/18/16 06:00 75 05/18/16 05:53 78 16 108/81 95 Room Air 05/18/16 05:05 71 16 102/71 98 Room Air 05/18/16 03:04 36.9 117 18 136/86 96 Room Air Physical Exam Vital signs reviewed. General: Well-appearing , in no significant distress. HEENT: No scleral icterus, PERRLA, neck supple. Atraumatic. Cardiovascular: Regular rate and rhythm, no extra sounds. Pulmonary: Clear to auscultation bilaterally, normal work of breathing. Abdomen: Soft, nontender, nondistended, positive bowel sounds. Musculoskeletal: Atraumatic, no peripheral edema. Neurologic: Patient is somnolent, but arousable. Some slurred speech, no facial droop, equal waste recycler strength, equal strength in bilateral lower extremities, follows commands appropriately. Skin: Warm, dry, no rash Medical Decision & Procedures ER Provider Diagnostic Interpretation: CT results as stated below per my review and radiologist interpretation: CT HEAD Compared with MRI head tonight. CT head 05/17/16. No acute intracranial abnormality. Radiologist: Ulysses Garcia MD ED Course 0320: Past medical records reviewed. The patient was evaluated in room A02. A complete history and physical examination was performed. Medical Decision Differential diagnosis: Etiologies such as metabolic, infection, hypo/hyperglycemia, electrolyte abnormalities, cardiac sources, intracerebral event, toxicologic, neurologic, as well as others were entertained. This patient was evaluated and appeared to be in no significant distress. IV access was obtained and laboratory work was drawn. Patient was placed on the playground monitor. Patient does appear to be somnolent and has some speech slurring however does not seem to be focal on exam. The patient had had brain imaging earlier in the evening and a significant amount of medication to control his symptoms. I suspect he is not able to clear the medication as effectively as was expected. The patient was observed on the playground monitor. CT scan of the head was performed and is negative for acute abnormality. The patient slept for several hours in the emergency department. He then awoke and was able to ambulate to the restroom. Transportation arrangements have been made. The patient will be discharged to a ride and will return to the ER for worsening of symptoms or any medical concerns. He is encouraged to follow up with his primary care physician this week. Impression Primary Impression: Altered mental status Scribe Attestation The scribe's documentation has been prepared under my direction and personally reviewed by me in its entirety. I confirm that the note above accurately reflects all work, treatment, procedures, and medical decision making performed by me. Departure Information Referrals No Doctor, Assigned (PCP) Patient Instructions My [facility]
--- NOTE | 2016-05-18 07:17 | DIAGNOSTIC IMAGING REPORT ---
HEAD CT NONCONTRAST CT DOSE: 614.27 mGy.cm HISTORY: Altered mental status. TECHNIQUE: Multiaxial CT images of the head were performed without the use of intravenous contrast. Automated exposure control was utilized for this study. Comparison: Head CT 05/17/2016. Findings: The paranasal sinuses and mastoid air cells are clear. The calvarium and skull base are intact. The ventricles and sulci are within normal limits. There is no mass, hematoma, midline shift, or acute infarct. Impression: No acute intracranial abnormality. Electronically signed by: Ángel Wilson M.D. 05/18/2016 7:16 AM Dictated Date/Time: 05/18/2016 7:14 AM
[2016-05-18 07:48] VITALS: BP 116/69; PULSE 70; O2SAT 96
[2016-12-07] MEDS ORDERED: VNTHFA/IN INH (06:54)
[2016-12-07] MEDS ORDERED: OMEP40CA41 PO (08:53)
[2016-12-07] MEDS ORDERED: LCTL30 PO (09:54)
[2016-12-07] MEDS ORDERED: ONDA4TAB46 PO (09:54)
[2016-12-07] MEDS ORDERED: VTMB12100 PO (10:46)
[2016-12-07] MEDS ORDERED: FRS/40 PO (10:48)
[2016-12-07] MEDS ORDERED: FLUT0.15 NAE (14:29)
[2016-12-07] MEDS ORDERED: ANT25 PO (16:31)
[2016-12-07] MEDS ORDERED: PRED20TA PO (16:31)
[2016-12-07] MEDS ORDERED: SPIR100T PO (16:34)
[2016-12-07] MEDS ORDERED: FERR1TAB23 PO (16:34)
[2016-12-07] MEDS ORDERED: RIFA550T2 PO (16:51)
[2016-12-07] MEDS ORDERED: VALA1TAB31 PO (16:51)
[2016-12-07] MEDS ORDERED: FLV1 PO (16:51)
[2016-12-07] MEDS ORDERED: SPRN100 PO (19:24)
[2016-12-07] MEDS ORDERED: THIA100T11 PO (19:29)
== END 2016-05-18 08:07 | disposition home or self-care (01) ==
LOC: C.EDB 02:51 → C.EDA 08:07
DX: R41.82 Altered mental status, unspecified (principal); F10.20 Alcohol dependence, uncomplicated; K70.30 Alcoholic cirrhosis of liver without ascites; I85.10 Secondary esophageal varices without bleeding; Z86.718 Personal history of other venous thrombosis and embolism; Z80.7 Family history of other malignant neoplasms of lymphoid, hematopoietic and related tissues; Z83.3 Family history of diabetes mellitus; Z82.49 Family history of ischemic heart disease and other diseases of the circulatory system; Z81.1 Family history of alcohol abuse and dependence; Z79.899 Other long term (current) drug therapy; R20.0 Anesthesia of skin; A69.20 Lyme disease, unspecified; D64.9 Anemia, unspecified; D69.6 Thrombocytopenia, unspecified; Z87.891 Personal history of nicotine dependence; K72.90 Hepatic failure, unspecified without coma

== ENCOUNTER 2016-09-16 12:15 | Emergency (ER) | payer OTHER ==
[~2016-09-16] VITALS: Ht 167.6 cm; Wt 97.0 kg
[~2016-09-16 12:15] MED LIST changes: -DOXY100C76 PO; +FLUT0.15 NAE; +FLV1 PO; +FRS/40 PO; +LCTL30 PO; +ONDA4TAB46 PO; +RIFA550T2 PO; +SPRN100 PO; +THIA100T11 PO; +VALA1TAB31 PO; +VNTHFA/IN INH; +VTMB12100 PO
[2016-09-16 12:28] VITALS: TEMP 36.5; Ht 167.6 cm; Wt 97.0 kg
[2016-09-16] MEDS ORDERED: MECLIZINE HCL 25 MG TAB PO STA (12:34)
[2016-09-16] MEDS ORDERED: SODIUM CHLORIDE 0.9% 1000ML 1,000 ML IV STA (12:34)
[2016-09-16] MEDS ORDERED: ONDANSETRON INJ 2 MG/ML 2 ML VIAL IV STA (12:34)
--- NOTE | 2016-09-16 12:50 | DIAGNOSTIC IMAGING REPORT ---
CHEST ONE VIEW PORTABLE HISTORY: vomiting COMPARISON: Chest 05/17/2016. FINDINGS: The lungs are clear. Cardiac silhouette is normal in size. No pleural effusions. No pneumothorax. IMPRESSION: No acute process. Electronically signed by: Ángel Wilson M.D. 09/16/2016 12:49 PM Dictated Date/Time: 09/16/2016 12:48 PM
[2016-09-16] MEDS ORDERED: SPRN100 PO (13:24)
[2016-09-16 13:37] LABS: HEMATOCRIT 39.5 % (42-52); MEAN CORPUSCULAR HEMOGLOBIN 35.5 pg (25-34); MEAN CORPUSCULAR HGB CONC 36.2 g/dl (32-36); MEAN PLATELET VOLUME 12.5 fL (7.4-10.4); RED BLOOD COUNT 4.03 M/uL (4.7-6.1); WHITE BLOOD COUNT 4.96 K/uL (4.8-10.8)
[2016-09-16 13:45] LABS: ALT/SGPT 34 U/L (12-78); BLOOD UREA NITROGEN 17 mg/dl (7-18); BUN/CREATININE RATIO 15.3 (10-20); CALCIUM 9.1 mg/dl (8.5-10.1); CARBON DIOXIDE 25 mmol/L (21-32); CHLORIDE 103 mmol/L (98-107); GLUCOSE 91 mg/dl (70-99); POTASSIUM 4.5 mmol/L (3.5-5.1); SODIUM 134 mmol/L (136-145)
[2016-09-16] MEDS ORDERED: OPTIRAY 320 IV PRN (13:45)
[2016-09-16 13:50] LABS: ALKALINE PHOSPHATASE 74 U/L (45-117); AST/SGOT 50 U/L (15-37)
[2016-09-16 14:00] LABS: PLATELET COUNT 52 K/uL (130-400)
[2016-09-16 14:01] LABS: BASO % 0.8 %; BASO ABS # 0.04 K/uL (0-0.2); COMPLETE YES; IG% 0.2 %; LYMPH % 14.5 %; LYMPH ABS # 0.72 K/uL (1.2-3.4); MONO % 12.3 %; NEUT % 71.2 %; PLT ESTIMATE DECREASED
[2016-09-16 14:16] LABS: URINE APPEARANCE CLEAR (CLEAR); URINE BILIRUBIN NEG (NEG); URINE COLOR DK YELLOW; URINE EPITHELIAL CELL AUTO >30 /lpf (0-5); URINE NITRITE NEG (NEG); URINE PH 6.5 (4.5-7.5); UROBILINOGEN NEG (NEG); ZZUR CULT IF INDIC CLEAN CATCH NO
[2016-09-16 14:19] LABS: MANUAL MICROSCOPIC REQUIRED? NO; REVIEW REQ? NO
--- NOTE | 2016-09-16 14:40 | DIAGNOSTIC IMAGING REPORT ---
HEAD CT NONCONTRAST CT DOSE: 1702.62 mGy.cm HISTORY: Headache. Vomiting. TECHNIQUE: Multiaxial CT images of the head were performed without the use of intravenous contrast. Automated exposure control was utilized for this study. A dose lowering technique was utilized adhering to the principles of ALARA. Comparison: Head CT 05/18/2016. Findings: Mild motion artifact. The paranasal sinuses and mastoid air cells are clear. The calvarium and skull base are intact. The ventricles and sulci are within normal limits. There is no mass, hematoma, midline shift, or acute infarct. Impression: No acute intracranial abnormality. Electronically signed by: Ángel Wilson M.D. 09/16/2016 2:39 PM Dictated Date/Time: 09/16/2016 2:34 PM
--- NOTE | 2016-09-16 14:48 | DIAGNOSTIC IMAGING REPORT ---
ABDOMEN AND PELVIS CT WITH IV CONTRAST CT DOSE: HISTORY: Generalized abdominal pain with vomiting. TECHNIQUE: Multiaxial CT images of the abdomen and pelvis were performed following the use of intravenous contrast. A dose lowering technique was utilized adhering to the principles of ALARA. COMPARISON STUDY: Abdomen and pelvis CT 05/01/2016. FINDINGS: Lower chest: There are few small pericardial calcifications, unchanged. Mild dependent changes seen within the lung bases. Liver: The liver has a nodular serosal pattern consistent with cirrhosis. No focal hepatic masses are visualized. There is recanalization of the umbilical vein. Gallbladder: Mild gallbladder wall thickening, unchanged. This is likely secondary to hepatocellular disease. Spleen: The spleen is enlarged measuring 15 cm Pancreas: Unremarkable. Adrenal glands: Unremarkable. Kidneys: There is symmetric renal cortical enhancement. The kidneys are normal in size without hydronephrosis. Bowel: There are no transition zones indicate bowel obstruction. The appendix appears normal. There is no acute diverticulitis. Peritoneum: There is no intraperitoneal free air or abdominal ascites. Vasculature: The abdominal aorta is normal in course and caliber. Large varicosity within the left para-aortic location. Adenopathy: None. Pelvic viscera: The bladder, and pelvic viscera are unremarkable. Skeletal structures: No destructive osseous lesions are seen. Bilateral L5 spondylolysis. IMPRESSION: 1. Hepatic cirrhosis with evidence of portal hypertension and splenomegaly. 2. No evidence of bowel obstruction. No evidence of free air 3. Normal appendix. No acute inflammatory changes. 4. Mild gallbladder wall thickening, unchanged. This is likely secondary to the hepatocellular disease. 5. Overall, no significant change compared to the prior study. Electronically signed by: Ángel Wilson M.D. 09/16/2016 2:46 PM Dictated Date/Time: 09/16/2016 2:39 PM
[2016-09-16 17:04] VITALS: BP 135/78; PULSE 72; O2SAT 98
--- NOTE | 2016-09-16 19:47 | EMERGENCY ROOM VISIT NOTE ---
History Report prepared by Stanley: Jami Newby Under the Supervision of: Dr. Dylan Alaniz D.O. First contact with patient: 12:22 Stated Complaint: NAUSEA History of Present Illness The patient is a 56 year old male who presents to the Emergency Room with complaints of intermittent epigastric abdominal pain that began this morning when he woke. The patient states that he has a history of cirrhosis of the liver from alcohol use. He states that he has not had a drink within the last four years. The patient additionally reports nausea that began this morning with his abdominal pain. He states that when he woke this morning he was feeling dizzy with movement. The patient states that he has been experiencing a headache that he describes as a head pressure. He states that he is concerned that his ammonia level may be off. The patient states that he has been experiencing increasing shortness of breath over the last several weeks. Pt denies change in vision, fevers, chest pain, vomiting, diarrhea, pain with urination, and melena. Source of History: patient Onset: this morning when he woke Position: abdomen (epigastric) Timing: intermittent Associated Symptoms: + headache, + SOB, + nausea Note: Associated Symptoms: dizziness Review of Systems See HPI for pertinent positives & negatives. A total of 10 systems reviewed and were otherwise negative. 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 (7) Genital herpes (8) Hepatic encephalopathy (9) History of portal vein thrombosis (10) Portal hypertensive gastropathy (11) Thrombocytopenia (12) Tobacco Use Disorder Surgical Problems: (1) History of carpal tunnel surgery (2) History of dental surgery Family History Alcohol abuse SISTER Cancer MOTHER (Lymphoma) Diabetes mellitus FATHER Heart disease Hypertension Social History Smoking Status: Never Smoker Alcohol Use: none Drug Use: none Marital Status: , in relationship Housing Status: lives alone Occupation Status: unemployed Current/Historical Medications Scheduled Cyanocobalamin (Vitamin B-12), 100 MCG PO QAM Folic Acid (Folic Acid), 1 MG PO QAM Furosemide (Lasix), 40 MG PO BID Lactulose (Lactulose), 2 TBS PO QID Omeprazole (Prilosec), 40 MG PO DAILY Rifaximin (Xifaxan), 550 MG PO BID Spironolactone (Spironolactone), 200 MG PO QAM Spironolactone (Spironolactone), 100 MG PO DAILYBL Thiamine Hcl (Vitamin B-1), 100 MG PO QAM Valacyclovir Hcl (Valtrex), 1 GM PO QAM Scheduled PRN Albuterol Hfa (Ventolin Hfa), 2 PUFFS INH Q4 PRN for SOB/Wheezing Fluticasone Propionate (Nasal) (Flonase Allergy Relief), 2 SPRAYS GUANAKO DAILY PRN for PRN\ Hydroxyzine HCl (Hydroxyzine HCl), 25 MG PO Q6 PRN for Anxiety Ondansetron Hcl (Zofran), 4 MG PO Q6 PRN for Nausea Allergies Coded Allergies: No Known Allergies (Unverified , 09/16/16) Physical Exam Vital Signs Date Time Temp Pulse Resp B/P (MAP) Pulse Ox O2 Delivery O2 Flow Rate FiO2 09/16/16 17:04 72 18 135/78 98 09/16/16 15:29 84 16 123/70 98 Room Air 09/16/16 14:00 77 20 150/74 98 Room Air 09/16/16 12:51 77 09/16/16 12:28 36.5 87 18 128/69 97 Room Air Physical Exam GENERAL: Sitting up in bed, disheveled, chronically ill appearing, no acute distress EYE EXAM: normal conjunctiva, PERRL and EOM's intact OROPHARYNX: no exudate, no erythema, lips, buccal mucosa, and tongue normal and mucous membranes are moist NECK: supple, no nuchal rigidity, no adenopathy, non-tender LUNGS: Clear to auscultation. Normal chest wall mechanics HEART: no murmurs, S1 normal and S2 normal ABDOMEN: abdomen soft, non-tender, normo-active bowel sounds, no masses, no rebound or guarding. BACK: Back is symmetrical on inspection and there is no deformity, no midline tenderness, no CVA tenderness. SKIN: no rashes and no bruising UPPER EXTREMITIES: upper extremities are grossly normal. LOWER EXTREMITIES: No pitting edema. NEURO EXAM: Awake, alert, oriented to person, place, and states that he does not know the year, cranial nerves II-XII grossly intact, normal speech, no gross weakness of arms, no gross weakness of legs. No drift. Finger to nose intact. Gross sensation intact. Medical Decision & Procedures ER Provider Diagnostic Interpretation: Radiology results as stated below per my review and the radiologist's interpretation: CHEST ONE VIEW PORTABLE HISTORY: vomiting COMPARISON: Chest 05/17/2016. FINDINGS: The lungs are clear. Cardiac silhouette is normal in size. No pleural effusions. No pneumothorax. IMPRESSION: No acute process. Electronically signed by: Ángel Wilson M.D. 09/16/2016 12:49 PM Dictated Date/Time: 09/16/2016 12:[address] CT DOSE: 1702.62 mGy.cm HISTORY: Headache. Vomiting. TECHNIQUE: Multiaxial CT images of the head were performed without the use of intravenous contrast. Automated exposure control was utilized for this study. A dose lowering technique was utilized adhering to the principles of ALARA. Comparison: Head CT 05/18/2016. Findings: Mild motion artifact. The paranasal sinuses and mastoid air cells are clear. The calvarium and skull base are intact. The ventricles and sulci are within normal limits. There is no mass, hematoma, midline shift, or acute infarct. Impression: No acute intracranial abnormality. Electronically signed by: Ángel Wilson M.D. 09/16/2016 2:39 PM Dictated Date/Time: 09/16/2016 2:34 PM A[address]OMEN AND PELVIS CT WITH IV CONTRAST CT DOSE: HISTORY: Generalized abdominal pain with vomiting. TECHNIQUE: Multiaxial CT images of the abdomen and pelvis were performed following the use of intravenous contrast. A dose lowering technique was utilized adhering to the principles of ALARA. COMPARISON STUDY: Abdomen and pelvis CT 05/01/2016. FINDINGS: Lower chest: There are few small pericardial calcifications, unchanged. Mild dependent changes seen within the lung bases. Liver: The liver has a nodular serosal pattern consistent with cirrhosis. No focal hepatic masses are visualized. There is recanalization of the umbilical vein. Gallbladder: Mild gallbladder wall thickening, unchanged. This is likely secondary to hepatocellular disease. Spleen: The spleen is enlarged measuring 15 cm Pancreas: Unremarkable. Adrenal glands: Unremarkable. Kidneys: There is symmetric renal cortical enhancement. The kidneys are normal in size without hydronephrosis. Bowel: There are no transition zones indicate bowel obstruction. The appendix appears normal. There is no acute diverticulitis. Peritoneum: There is no intraperitoneal free air or abdominal ascites. Vasculature: The abdominal aorta is normal in course and caliber. Large varicosity within the left para-aortic location. Adenopathy: None. Pelvic viscera: The bladder, and pelvic viscera are unremarkable. Skeletal structures: No destructive osseous lesions are seen. Bilateral L5 spondylolysis. IMPRESSION: 1. Hepatic cirrhosis with evidence of portal hypertension and splenomegaly. 2. No evidence of bowel obstruction. No evidence of free air 3. Normal appendix. No acute inflammatory changes. 4. Mild gallbladder wall thickening, unchanged. This is likely secondary to the hepatocellular disease. 5. Overall, no significant change compared to the prior study. Electronically signed by: Ángel Wilson M.D. 09/16/2016 2:46 PM Dictated Date/Time: 09/16/2016 2:39 PM Laboratory Results 09/16/16 13:01 Red Blood Count 4.03, Mean Corpuscular Volume 98.0, Mean Corpuscular Hemoglobin 35.5, Mean Corpuscular Hemoglobin Concent 36.2, Mean Platelet Volume 12.5, Neutrophils (%) (Auto) 71.2, Lymphocytes (%) (Auto) 14.5, Monocytes (%) (Auto) 12.3, Eosinophils (%) (Auto) 1.0, Basophils (%) (Auto) 0.8, Neutrophils # (Auto ) 3.53, Lymphocytes # (Auto) 0.72, Monocytes # (Auto) 0.61, Eosinophils # (Auto ) 0.05, Basophils # (Auto) 0.04 09/16/16 13:11 Test 09/16/16 13:01 09/16/16 13:11 09/16/16 13:55 09/16/16 15:12 White Blood Count 4.96 K/uL (4.8-10.8) Red Blood Count 4.03 M/uL (4.7-6.1) Hemoglobin 14.3 g/dL (14.0-18.0) Hematocrit 39.5 % (42-52) Mean Corpuscular Volume 98.0 fL (80-100) Mean Corpuscular Hemoglobin 35.5 pg (25-34) Mean Corpuscular Hemoglobin Concent 36.2 g/dl (32-36) Platelet Count 52 K/uL (130-400) Mean Platelet Volume 12.5 fL (7.4-10.4) Neutrophils (%) (Auto) 71.2 % Lymphocytes (%) (Auto) 14.5 % Monocytes (%) (Auto) 12.3 % Eosinophils (%) (Auto) 1.0 % Basophils (%) (Auto) 0.8 % Neutrophils # (Auto) 3.53 K/uL (1.4-6.5) Lymphocytes # (Auto) 0.72 K/uL (1.2-3.4) Monocytes # (Auto) 0.61 K/uL (0.11-0.59) Eosinophils # (Auto) 0.05 K/uL (0-0.5) Basophils # (Auto) 0.04 K/uL (0-0.2) RDW Standard Deviation 47.7 fL (36.4-46.3) RDW Coefficient of Variation 13.2 % (11.5-14.5) Immature Granulocyte % (Auto) 0.2 % Immature Granulocyte # (Auto) 0.01 K/uL (0.00-0.02) Platelet Estimate DECREASED Red Blood Cell Morphology Unremarkable D-Dimer 500 ug/L FEU (0-500) Ammonia 45.0 umol/L (11-32) Anion Gap 6.0 mmol/L (3-11) Est Creatinine Clear Calc Drug Dose 81.7 ml/min Estimated GFR () 86.5 Estimated GFR (Non- 74.6 BUN/Creatinine Ratio 15.3 (10-20) Calcium Level 9.1 mg/dl (8.5-10.1) Total Bilirubin 1.1 mg/dl (0.2-1) Direct Bilirubin 0.3 mg/dl (0-0.2) Aspartate Amino Transf (AST/SGOT) 50 U/L (15-37) Alanine Aminotransferase (ALT/SGPT) 34 U/L (12-78) Alkaline Phosphatase 74 U/L (45-117) Total Protein 7.1 gm/dl (6.4-8.2) Albumin 3.2 gm/dl (3.4-5.0) Lipase 164 U/L (73-393) Urine Color DK YELLOW Urine Appearance CLEAR (CLEAR) Urine pH 6.5 (4.5-7.5) Urine Specific [place] 1.020 (1.000-1.030) Urine Protein NEG (NEG) Urine Glucose (UA) NEG (NEG) Urine Ketones TRACE (NEG) Urine Occult Blood NEG (NEG) Urine Nitrite NEG (NEG) Urine Bilirubin NEG (NEG) Urine Urobilinogen NEG (NEG) Urine Leukocyte Esterase NEG (NEG) Urine WBC (Auto) 1-5 /hpf (0-5) Urine RBC (Auto) 0-4 /hpf (0-4) Urine Hyaline Casts (Auto) 1-5 /lpf (0-5) Urine Epithelial Cells (Auto) >30 /lpf (0-5) Urine Bacteria (Auto) NEG (NEG) Troponin I ng/ml (0-0.045) Test 09/16/16 16:38 Bedside Troponin I < 0.030 ng/ml (0-0.045) Laboratory results per my review. Medications Administered Medications (Trade) Dose Ordered Sig/Kiya Route Start Time Stop Time Status Last Admin Dose Admin Sodium Chloride 1,000 ml @ 999 mls/hr Q1H1M STAT IV 09/16/16 12:34 09/16/16 13:34 DC 09/16/16 13:07 999 MLS/HR Ondansetron HCl (Zofran Inj) 4 mg NOW STAT IV 09/16/16 12:34 09/16/16 12:36 DC 09/16/16 13:11 4 MG Meclizine HCl (Antivert Tab) 25 mg NOW STAT PO 09/16/16 12:34 09/16/16 12:36 DC 09/16/16 13:11 25 MG ECG Indication: other (dizziness) Rate (beats per minute): 82 Rhythm: sinus rhythm Findings: other (normal axis low voltage) Comparison ECG Date: 05/17/16 ED Course ED COURSE: Vital signs were reviewed and showed hypertensive The patients medical record was reviewed The above diagnostic studies were performed and reviewed. ED treatments and interventions as stated above. 1225: The patient was evaluated in room C6. A complete history and physical examination was performed. 1234: Ordered Antivert Tab 25 mg PO, Zofran Inj 4 mg IV, Sodium Chloride 1000 l @ 999 mls/hr IV. 1400: I reevaluated the patient and he is resting. I updated him on his test results thus far. He will have a CT scan. 1500: I spoke to the patients sister and she notes that the patient is currently at his baseline. She has been updated on the exam findings and treatment plan. 1658: Upon reevaluation, the patient is resting comfortably.I discussed my findings with the patient and he understands and agrees with the treatment plan. Based on the patients age, coexisting illnesses, exam and lab findings the decision to treat as an outpatient was made. The patient remained stable while under my care. The patient appeared well at the time of discharge. Medical Decision Differential diagnoses includes but is not limited to gastritis, peptic ulcer disease, GERD, gallbladder disease, pancreatitis, small bowel obstruction, acute coronary syndrome, pericarditis, ischemic bowel, irritable bowel disease, irritable bowel syndrome, appendicitis, diverticulitis, malignancy, hernia, urinary tract infection, torsion, perforation, trauma, infectious. Patient is a 56 year old female who presents the ER for abdominal pain associated with dizziness. He is a previous alcoholic with cirrhosis and notes that he normally gets this way when his ammonia becomes elevated. He admits to taking all his medications. He has mid to a mild headache. CT head was negative. His dizziness which was positional has completely resolved. He was given fluids. CT abdomen and pelvis was unremarkable. D-dimer was negative and troponins were negative 2 with shortness of breath. He denies any chest pain. CBC along with BMP was unremarkable. Bilirubin was slightly elevated at 1.1. Ammonia was 45. UA was unremarkable. Discussed with sister who notes that he is at his baseline. Following this patient the patient is feeling much better. He was discharged follow-up with PCP and GI as an outpatient. Discussed with Pt concerning signs and symptoms to watch out for. Pt was instructed to follow up with their PCP and discussed with the patient their option to return to the ED at anytime for persistent or worsening symptoms. The appropriate anticipatory guidance and out-patient management, including indications for return to the emergency department, were explained at length to the patient and understood. Medication Reconcilliation Current Medication List: was personally reviewed by me Blood Pressure Screening Patient's blood pressure: Elevated blood pressure Blood pressure disposition: Elevated BP felt to be situational, Did not require urgent referral Impression Primary Impression: Diffuse abdominal pain Additional Impression: Dizzy Scribe Attestation The scribe's documentation has been prepared under my direction and personally reviewed by me in its entirety. I confirm that the note above accurately reflects all work, treatment, procedures, and medical decision making performed by me. Departure Information Dispostion Home / Self-Care Referrals No Doctor, Assigned (PCP) Najma Garcia M.D. Forms Call Back Authorization, HOME CARE DOCUMENTATION FORM, IMPORTANT VISIT INFORMATION Patient Instructions Abdominal Pain - [facility], My [facility] Additional Instructions Please follow up with your primary care doctor or if you are a student, [facility] with in the next 24 hours. Any worsening of your symptoms, please return to the ED immediately. This includes any fevers greater than 100.4, headaches, change in vision, dizziness, worsening pain, chest pain, shortness breath, persistent nausea, vomiting, unable to eat or drink, or any other concerning signs or symptoms from your standpoint. Problem Qualifiers
== END 2016-09-16 17:05 | disposition home or self-care (01) ==
LOC: EDBD 12:15 → C.EDC 12:18
DX: R10.9 Unspecified abdominal pain (principal); R42 Dizziness and giddiness; F10.10 Alcohol abuse, uncomplicated; D64.9 Anemia, unspecified; K31.89 Other diseases of stomach and duodenum; D69.6 Thrombocytopenia, unspecified; Z83.3 Family history of diabetes mellitus; Z82.49 Family history of ischemic heart disease and other diseases of the circulatory system

== ENCOUNTER 2016-09-23 15:34 | Emergency (ER) | payer OTHER ==
[~2016-09-23] VITALS: Ht 167.6 cm; Wt 90.0 kg
[2016-09-23 15:40] VITALS: TEMP 36.6; Ht 167.6 cm; Wt 90.0 kg
[2016-09-23] MEDS ORDERED: ONDANSETRON INJ 2 MG/ML 2 ML VIAL IV STA (15:59)
[2016-09-23] MEDS ORDERED: SODIUM CHLORIDE 0.9% 1000ML 1,000 ML IV STA (15:59)
[2016-09-23] MEDS ORDERED: MECLIZINE HCL 25 MG TAB PO STA (16:02)
--- NOTE | 2016-09-23 16:04 | EMERGENCY ROOM VISIT NOTE ---
History Report prepared by Stanley: Rahat Morrison Under the Supervision of: Dr. Gordy Maxwell D.O. First contact with patient: 15:40 Chief Complaint: VERTIGO Stated Complaint: NUASEA/ VOMIT Nursing Triage Summary: pt arrives via ALS per ALS pt called 911 for dizziness and nausea ALS arrived on scene and he was neeling on floor projectile vomiting he reports pain in epigastric region abd is tender to palpation pt reports he took 2 doses of meclizine, one about an hour before EMS arrived He has a history of alcohol abuse, has been clean for 4 years He has a history of liver cirrhosis and hepatits History of Present Illness The patient is a 56 year old male who presents to the Emergency Room via ALS with complaints of dizziness that began recently. The patient has a history of vertigo. While he was at [facility], the room suddenly began to spin. He felt very nauseated and says he felt his blood pressure rise. He states that he took his Meclizine like usual when he gets dizzy, once in the morning and again at [facility], but it did not help. When he got home, he vomited. He then called EMS. He states this happened to him 1 week ago as well. He denies any fevers or abdominal pain. He has a history of liver cirrhosis. Source of History: patient Onset: recently Position: other (global) Symptom Intensity: moderate Quality: other (Dizziness) Timing: constant Associated Symptoms: + nausea, + vomiting, No fevers, No abdominal pain Note: He describes his dizziness as room spinning. Review of Systems See HPI for pertinent positives & negatives. A total of 10 systems reviewed and were otherwise negative. 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 (7) Genital herpes (8) Hepatic encephalopathy (9) History of portal vein thrombosis (10) Portal hypertensive gastropathy (11) Thrombocytopenia (12) Tobacco Use Disorder Surgical Problems: (1) History of carpal tunnel surgery (2) History of dental surgery Family History Alcohol abuse SISTER Cancer MOTHER (Lymphoma) Diabetes mellitus FATHER Heart disease Hypertension Social History Smoking Status: Former Smoker Alcohol Use: none Drug Use: none Marital Status: , in relationship Housing Status: lives alone Occupation Status: unemployed Current/Historical Medications Scheduled Cyanocobalamin (Vitamin B-12), 100 MCG PO QAM Folic Acid (Folic Acid), 1 MG PO QAM Furosemide (Lasix), 40 MG PO BID Lactulose (Lactulose), 2 TBS PO QID Omeprazole (Prilosec), 40 MG PO DAILY Rifaximin (Xifaxan), 550 MG PO BID Spironolactone (Spironolactone), 200 MG PO QAM Spironolactone (Spironolactone), 100 MG PO DAILYBL Thiamine Hcl (Vitamin B-1), 100 MG PO QAM Valacyclovir Hcl (Valtrex), 1 GM PO QAM Scheduled PRN Albuterol Hfa (Ventolin Hfa), 2 PUFFS INH Q4 PRN for SOB/Wheezing Fluticasone Propionate (Nasal) (Flonase Allergy Relief), 2 SPRAYS GUANAKO DAILY PRN for PRN\ Hydroxyzine HCl (Hydroxyzine HCl), 25 MG PO Q6 PRN for Anxiety Ibuprofen (Advil), 400 MG PO Q4 PRN for Pain Ondansetron Hcl (Zofran), 4 MG PO Q6 PRN for Nausea Allergies Coded Allergies: No Known Allergies (Unverified , 09/23/16) Physical Exam Vital Signs Date Time Temp Pulse Resp B/P (MAP) Pulse Ox O2 Delivery O2 Flow Rate FiO2 09/23/16 17:28 80 19 111/71 96 Room Air 09/23/16 16:10 79 15 135/75 79 131/76 09/23/16 16:09 95 Room Air 09/23/16 16:09 95 Room Air 09/23/16 15:50 78 09/23/16 15:40 36.6 75 16 126/86 94 Room Air Physical Exam GENERAL: Patient is awake, alert, and in no acute distress. Patient is resting comfortably and showing no signs of anxiety EYES: The conjunctivae are clear. The pupils are round and reactive. EARS, NOSE, MOUTH AND THROAT: The nose is without any evidence of any deformity. Mucous membranes are moist tongue is midline NECK: The neck is nontender and supple. RESPIRATORY: Normal respiratory effort is noted there is no evidence of wheezing rhonchi or rales CARDIOVASCULAR: Regular rate and rhythm noted there no murmurs rubs or gallops normal S1 normal S2 GASTROINTESTINAL: The abdomen is soft and mildly distended. Bowel sounds are present in all quadrants. Abdomen is nontender. No guarding or rigidity. MUSCULOSKELETAL/EXTREMITIES: There is no evidence of gross deformity full range of motion is noted in the hips and shoulders SKIN: There is no obvious evidence of any rash. There are no petechiae, pallor or cyanosis noted. NEUROLOGIC: Patient is awake alert and oriented x3 strength is symmetric patellar reflexes are 2+ bilaterally Medical Decision & Procedures ER Provider Diagnostic Interpretation: Radiology results as stated below per my review and radiologist interpretation: CHEST ONE VIEW PORTABLE CLINICAL HISTORY: Altered mental status. Weakness. COMPARISON STUDY: Chest radiograph September 16, 2016. FINDINGS: There is no pneumothorax or pleural effusion. Mild bibasilar opacities favor atelectasis. There is no evidence of pulmonary edema. Cardiomediastinal silhouette is normal. IMPRESSION: 1. No acute cardiopulmonary findings. 2. Mild bibasilar opacities which favor atelectasis. Electronically signed by: Leonardo Brewster M.D. 09/23/2016 5:01 PM Dictated Date/Time: 09/23/2016 5:00 PM Laboratory Results 09/23/16 15:04 Red Blood Count 4.42, Mean Corpuscular Volume 98.4, Mean Corpuscular Hemoglobin 34.8, Mean Corpuscular Hemoglobin Concent 35.4, Mean Platelet Volume 11.7, Neutrophils (%) (Auto) 63.9, Lymphocytes (%) (Auto) 20.8, Monocytes (%) (Auto) 12.1, Eosinophils (%) (Auto) 2.2, Basophils (%) (Auto) 0.7, Neutrophils # (Auto ) 4.61, Lymphocytes # (Auto) 1.50, Monocytes # (Auto) 0.87, Eosinophils # (Auto ) 0.16, Basophils # (Auto) 0.05 09/23/16 15:04 Test 09/23/16 15:04 09/23/16 16:25 09/23/16 16:42 White Blood Count 7.21 K/uL (4.8-10.8) Red Blood Count 4.42 M/uL (4.7-6.1) Hemoglobin 15.4 g/dL (14.0-18.0) Hematocrit 43.5 % (42-52) Mean Corpuscular Volume 98.4 fL (80-100) Mean Corpuscular Hemoglobin 34.8 pg (25-34) Mean Corpuscular Hemoglobin Concent 35.4 g/dl (32-36) Platelet Count 75 K/uL (130-400) Mean Platelet Volume 11.7 fL (7.4-10.4) Neutrophils (%) (Auto) 63.9 % Lymphocytes (%) (Auto) 20.8 % Monocytes (%) (Auto) 12.1 % Eosinophils (%) (Auto) 2.2 % Basophils (%) (Auto) 0.7 % Neutrophils # (Auto) 4.61 K/uL (1.4-6.5) Lymphocytes # (Auto) 1.50 K/uL (1.2-3.4) Monocytes # (Auto) 0.87 K/uL (0.11-0.59) Eosinophils # (Auto) 0.16 K/uL (0-0.5) Basophils # (Auto) 0.05 K/uL (0-0.2) RDW Standard Deviation 48.5 fL (36.4-46.3) RDW Coefficient of Variation 13.5 % (11.5-14.5) Immature Granulocyte % (Auto) 0.3 % Immature Granulocyte # (Auto) 0.02 K/uL (0.00-0.02) Anion Gap 10.0 mmol/L (3-11) Est Creatinine Clear Calc Drug Dose 66.6 ml/min Estimated GFR () 70.7 Estimated GFR (Non- 61.0 BUN/Creatinine Ratio 13.2 (10-20) Calcium Level 9.4 mg/dl (8.5-10.1) Magnesium Level 2.1 mg/dl (1.8-2.4) Total Bilirubin 1.9 mg/dl (0.2-1) Direct Bilirubin 0.5 mg/dl (0-0.2) Aspartate Amino Transf (AST/SGOT) 49 U/L (15-37) Alanine Aminotransferase (ALT/SGPT) 34 U/L (12-78) Alkaline Phosphatase 80 U/L (45-117) Troponin I < 0.015 ng/ml (0-0.045) Total Protein 7.7 gm/dl (6.4-8.2) Albumin 3.8 gm/dl (3.4-5.0) Thyroid Stimulating Hormone (TSH) 2.990 uIu/ml (0.300-4.500) Urine Color YELLOW Urine Appearance CLEAR (CLEAR) Urine pH 7.0 (4.5-7.5) Urine Specific Charlo 1.014 (1.000-1.030) Urine Protein NEG (NEG) Urine Glucose (UA) NEG (NEG) Urine Ketones NEG (NEG) Urine Occult Blood NEG (NEG) Urine Nitrite NEG (NEG) Urine Bilirubin NEG (NEG) Urine Urobilinogen NEG (NEG) Urine Leukocyte Esterase NEG (NEG) Ammonia 41.0 umol/L (11-32) Laboratory results per my review. Medications Administered Medications (Trade) Dose Ordered Sig/Kiya Route Start Time Stop Time Status Last Admin Dose Admin Ondansetron HCl (Zofran Inj) 4 mg NOW STAT IV 09/23/16 15:59 09/23/16 16:00 DC 09/23/16 16:09 4 MG Sodium Chloride 1,000 ml @ 999 mls/hr Q1H1M STAT IV 09/23/16 15:59 09/23/16 16:59 DC 09/23/16 15:59 999 MLS/HR Meclizine HCl (Antivert Tab) 25 mg NOW STAT PO 09/23/16 16:02 09/23/16 16:03 DC 09/23/16 16:14 25 MG ECG Indication: nausea, vomiting Rate (beats per minute): 75 Rhythm: normal sinus Findings: no ectopy, other (no acute STS) Comparison ECG Date: 16 Sep 2016 Change: no significant change ED Course 1540: The patient was evaluated in room A3. A complete history and physical examination were performed. 1559: Ordered NSS 1,000 ml @ 999 mls/hr IV, Zofran Inj 4 mg IV 1602: Ordered Antivert Tab 25 mg PO 1825: Upon reevaluation, the patient is resting. I discussed the results and treatment plan with him. He verbalized agreement of the treatment plan. He was discharged home. Medical Decision Differential diagnosis: Etiologies such as benign positional vertigo, dehydration, hypovolemia, anemia, tumor, infection, hypoglycemia, electrolyte abnormalities, cardiac sources, intracerebral event, toxicologic, neurologic, as well as others were entertained. Nursing notes reviewed. Patient's previous electronic medical records reviewed. The patient is a 56-year-old male who presented to the emergency department for an evaluation of vertigo. The patient has a history of vertigo in the past. The patient has had a very significant episode of vertigo today. He presented to the emergency department with prehospital personnel. The patient took his outpatient meclizine with some response. The patient was also treated with meclizine as well as Zofran in the emergency department. He was reevaluated multiple times. On subsequent reevaluation he was feeling much better. I discussed the patient's laboratory and radiographic studies with him. I discussed his case with the emergency department pillowcase cleaner. The patient does not criteria for inpatient treatment at this time. We will try to get the patient in for outpatient rehabilitation this Sunday. He was encouraged to rest and avoid any strenuous activity. He was encouraged to continue all medications as prescribed and call his family doctor to schedule a follow-up appointment as soon as possible. He was also encouraged return to the emergency department immediately symptoms change worsen or the need arises. Medication Reconcilliation Current Medication List: was personally reviewed by me Blood Pressure Screening Patient's blood pressure: Normal blood pressure Blood pressure disposition: Did not require urgent referral Impression Primary Impression: Vertigo Scribe Attestation The scribe's documentation has been prepared under my direction and personally reviewed by me in its entirety. I confirm that the note above accurately reflects all work, treatment, procedures, and medical decision making performed by me. Departure Information Dispostion Home / Self-Care Referrals Najma Garcia M.D. (PCP) Forms HOME CARE DOCUMENTATION FORM, IMPORTANT VISIT INFORMATION, WORK / SCHOOL INSTRUCTIONS Patient Instructions ED Dizziness [facility], My [facility] Additional Instructions Continue all medications as prescribed. Call your family doctor on Sunday to schedule a follow-up appointment. Follow-up with the rehabilitation facility. We will set up this follow-up on Sunday morning our case maker.
[2016-09-23 16:09] VITALS: O2SAT 95
[2016-09-23 16:10] LABS: HEMATOCRIT 43.5 % (42-52); MEAN CELL VOLUME 98.4 fL (80-100); MEAN CORPUSCULAR HEMOGLOBIN 34.8 pg (25-34); MEAN CORPUSCULAR HGB CONC 35.4 g/dl (32-36); RED BLOOD COUNT 4.42 M/uL (4.7-6.1); WHITE BLOOD COUNT 7.21 K/uL (4.8-10.8)
[2016-09-23 16:17] LABS: MEAN PLATELET VOLUME 11.7 fL (7.4-10.4); PLATELET COUNT 75 K/uL (130-400)
[2016-09-23 16:27] LABS: ALT/SGPT 34 U/L (12-78); AST/SGOT 49 U/L (15-37); BLOOD UREA NITROGEN 17 mg/dl (7-18); BUN/CREATININE RATIO 13.2 (10-20); CALCIUM 9.4 mg/dl (8.5-10.1); CARBON DIOXIDE 23 mmol/L (21-32); CHLORIDE 100 mmol/L (98-107); GLUCOSE 91 mg/dl (70-99); MAGNESIUM 2.1 mg/dl (1.8-2.4); POTASSIUM 4.2 mmol/L (3.5-5.1); SODIUM 133 mmol/L (136-145)
[2016-09-23 16:38] LABS: ALKALINE PHOSPHATASE 80 U/L (45-117); BASO % 0.7 %; BASO ABS # 0.05 K/uL (0-0.2); COMPLETE YES; EOS % 2.2 %; IG% 0.3 %; LYMPH % 20.8 %; MONO % 12.1 %; NEUT % 63.9 %
[2016-09-23 16:38] LABS: URINE APPEARANCE CLEAR (CLEAR); URINE BILIRUBIN NEG (NEG); URINE COLOR YELLOW; URINE NITRITE NEG (NEG); URINE SPECIFIC GRAVITY 1.014 (1.000-1.030); UROBILINOGEN NEG (NEG)
[2016-09-23 16:39] LABS: MANUAL MICROSCOPIC REQUIRED? NO; REVIEW REQ? NO
--- NOTE | 2016-09-23 17:02 | DIAGNOSTIC IMAGING REPORT ---
CHEST ONE VIEW PORTABLE CLINICAL HISTORY: Altered mental status. Weakness. COMPARISON STUDY: Chest radiograph September 16, 2016. FINDINGS: There is no pneumothorax or pleural effusion. Mild bibasilar opacities favor atelectasis. There is no evidence of pulmonary edema. Cardiomediastinal silhouette is normal. IMPRESSION: 1. No acute cardiopulmonary findings. 2. Mild bibasilar opacities which favor atelectasis. Electronically signed by: Leonardo Brewster M.D. 09/23/2016 5:01 PM Dictated Date/Time: 09/23/2016 5:00 PM
[2016-09-23] MEDS ORDERED: IBUP-1050 PO (17:09)
[2016-09-23 18:59] VITALS: BP 125/75; PULSE 95; O2SAT 98
== END 2016-09-23 19:04 | disposition home or self-care (01) ==
LOC: EDBD 15:34 → C.EDA 15:37
DX: R42 Dizziness and giddiness (principal); K70.30 Alcoholic cirrhosis of liver without ascites; K70.40 Alcoholic hepatic failure without coma; D64.9 Anemia, unspecified; F17.200 Nicotine dependence, unspecified, uncomplicated; Z98.890 Other specified postprocedural states; Z87.891 Personal history of nicotine dependence; Z79.899 Other long term (current) drug therapy; Z80.9 Family history of malignant neoplasm, unspecified; Z83.3 Family history of diabetes mellitus; Z82.49 Family history of ischemic heart disease and other diseases of the circulatory system

== ENCOUNTER → 2016-11-28 | Day surgery (SDC) | payer OTHER ==
[2016-11-22 08:53] VITALS: Ht 170.2 cm; Wt 93.2 kg
[~2016-11-28] VITALS: Ht 170.2 cm; Wt 93.2 kg
[~2016-11-28] MED LIST changes: +IBUP-1050 PO; +LIDOCAINE HCL 2% 2 ML VIAL (20MG/ML) ONE; +MIDAZOLAM HCL 1 MG/ML 2ML VIAL ONE; -OMEP20CA9 PO; +OMEP40CA41 PO; +ONDANSETRON INJ 2 MG/ML 2 ML VIAL IV PRN; +ONDANSETRON INJ 2 MG/ML 2 ML VIAL ONE; +PHENYLEPHRINE 100MCG/ML 5ML SYR ONE; +PROPOFOL IV EMULSION 10 MG/ML 20 ML VIAL IV ONE
--- NOTE | 2016-11-28 12:59 | Endo History and Physical ---
History & Physical Date of Service: Nov 28, 2016. Chief Complaint: Cirrhosis Referring Physician: Dr Garcia History of Present Illness Patient with a history of cirrhosis for upper endoscopy today to screen for esophageal varices. He is also due for colorectal cancer screening. He denies having any symptoms other than persistent right-sided abdominal discomfort. Past Medical History Gastrointestinal Disorder, Hypertension, Liver Disease, Depression Past Surgical History Hx Cardiac Surgery: No Hx Internal Defibrillator: No Hx Pacemaker: No Hx Abdominal Surgery: No Hx of Implantable Prosthesis: No Hx Post-Op Nausea and Vomiting: No Hx Cancer Surgery: No Hx Thoracic Surgery: No Hx Orthopedic: Yes (RT ULNAR NERVE SX) Hx Urinary Tract Surgery: No Family History None Social History Smoking Status: Former Smoker Hx Substance Use: No Hx Alcohol Use: No (NONE FOR 4 YEARS) Allergies Coded Allergies: No Known Allergies (Unverified , 11/22/16) Current Medications Reported Home Medications Medications Dose Route/Sig Max Daily Dose Days Date Category Dose Instructions Prilosec (Omeprazole) 40 Mg Cap 40 Mg PO QAM 11/22/16 Reported Advil (Ibuprofen) 200 Mg Tab 400 Mg PO Q4 PRN 09/23/16 Reported Ventolin Hfa (Albuterol) 200 Puffs/02607 Mcg Aers 2 Puffs INH Q4 PRN 05/01/16 Reported Hydroxyzine HCl 25 Mg Tab 25 Mg PO Q6 PRN 11/05/15 Reported Flonase Allergy Relief (Fluticasone Propionate (Nasal)) 50 Mcg/Act Spr 2 Sprays GUANAKO DAILY PRN 06/07/15 Reported Zofran (Ondansetron HCl) 4 Mg Tab 4 Mg PO Q6 PRN 11/12/14 Reported Lactulose 20 Gm/30 Ml Syrp 2 Tbs PO QID 11/12/14 Reported HOLD AFTER 3 BMS A DAY. Vitamin B-1 (Thiamine HCl) 100 Mg Tab 100 Mg PO QAM 04/15/14 Reported Spironolactone 100 Mg Tab 200 Mg PO QAM 04/15/14 Reported Lasix (Furosemide) 40 Mg Tab 40 Mg PO BID 04/04/14 Reported Vitamin B-12 (Cyanocobalamin) 100 Mcg Tab 100 Mcg PO QAM 04/04/14 Reported Valtrex (Valacyclovir Hcl) 1 Gm Tab 1 Gm PO QAM 03/26/14 Reported Xifaxan (Rifaximin) 550 Mg Tab 550 Mg PO BID 03/26/14 Reported Folic Acid 1 Mg Tab 1 Mg PO QAM 03/26/14 Reported Vital Signs Weight (Kilograms): 93.18 Height (Feet): 5 Height (Inches): 7 Date Time Temp Pulse Resp B/P (MAP) Pulse Ox O2 Delivery O2 Flow Rate FiO2 11/28/16 12:49 37 94 24 141/85 (103) 99 Nasal Cannula 4 Physical Exam General Appearance: no apparent distress Respiratory/Chest: Auscultation: deminished air movement Cardiovascular: Heart Auscultation: RRR Abdomen: Inspection & Palpation: soft Assessment and Plan Patient for upper endoscopy to screen for esophageal varices and a screening colonoscopy. We've discussed the risks to include bleeding, infection, perforation pain and missed polyps.
--- NOTE | 2016-11-28 13:55 | GI REPORT ---
Procedure Date: 11/28/2016 1:04 PM Procedure: Upper GI endoscopy Indications: Cirrhosis rule out esophageal varices Medicines: Monitored Anesthesia Care Complications: No immediate complications. Estimated Blood Loss: Estimated blood loss: none. Procedure: Pre-Anesthesia Assessment: - Prior to the procedure, a History and Physical was performed, and patient medications and allergies were reviewed. The patient is competent. The risks and benefits of the procedure and the sedation options and risks were discussed with the patient. All questions were answered and informed consent was obtained. Patient identification and proposed procedure were verified by the physician, the nurse and the bilingual recruiter in the procedure room. Mental Status Examination: alert and oriented. Airway Examination: normal oropharyngeal airway and neck mobility. Respiratory Examination: clear to auscultation. CV Examination: normal. ASA Grade Assessment: III - A patient with severe systemic disease. After reviewing the risks and benefits, the patient was deemed in satisfactory condition to undergo the procedure. The anesthesia plan was to use monitored anesthesia care (MAC). Immediately prior to administration of medications, the patient was re-assessed for adequacy to receive sedatives. The heart rate, respiratory rate, oxygen saturations, blood pressure, adequacy of pulmonary ventilation, and response to care were monitored throughout the procedure. The physical status of the patient was re-assessed after the procedure. After obtaining informed consent, the endoscope was passed under direct vision. Throughout the procedure, the patient's blood pressure, pulse, and oxygen saturations were monitored continuously. The scope was introduced through the mouth, and advanced to the second part of duodenum. The upper GI endoscopy was accomplished without difficulty. The patient tolerated the procedure well. Findings: Grade I varices were found in the lower third of the esophagus. The entire examined stomach was normal. The duodenal bulb and 2nd part of the duodenum were normal. Impression: - Grade I esophageal varices. - Normal stomach. - Normal duodenal bulb and 2nd part of the duodenum. - No specimens collected. Recommendation: - Discharge patient to home (ambulatory). - Resume regular diet today. - Repeat the upper endoscopy in 3 years for surveillance. Peter Daniel D.O. Peter Daniel DO 11/28/2016 1:54:50 PM This report has been signed electronically. Cristiano Tomas M.d. Note Initiated On: 11/28/2016 1:04 PM I attest to the content of the Intraoperative Record and orders documented therein, exceptions below
--- NOTE | 2016-11-28 14:03 | Discharge Instructions ---
Endoscopy Patient Instructions Date / Procedure(s) Performed Nov 28, 2016. Colonoscopy, EGD Allergy Information Coded Allergies: No Known Allergies (Unverified , 11/22/16) Discharge Date / Findings Nov 28, 2016. Small esophageal Varices found on endoscopy otherwise unremarkable. Good prep colonoscopy. 6mm polyp in cecum resected. 20 mm sessile polyp in the transverse colon with surrounding tattoo near the polyp, this was resected in piecemeal. 6 mm polyp in the rectum resected. Nonbleeding internal hemorrhoids. Medication Instructions Reported Home Medications Medications Dose Route/Sig Max Daily Dose Days Date Category Dose Instructions Prilosec (Omeprazole) 40 Mg Cap 40 Mg PO QAM 11/22/16 Reported Advil (Ibuprofen) 200 Mg Tab 400 Mg PO Q4 PRN 09/23/16 Reported Ventolin Hfa (Albuterol) 200 Puffs/07227 Mcg Aers 2 Puffs INH Q4 PRN 05/01/16 Reported Hydroxyzine HCl 25 Mg Tab 25 Mg PO Q6 PRN 11/05/15 Reported Flonase Allergy Relief (Fluticasone Propionate (Nasal)) 50 Mcg/Act Spr 2 Sprays GUANAKO DAILY PRN 06/07/15 Reported Zofran (Ondansetron HCl) 4 Mg Tab 4 Mg PO Q6 PRN 11/12/14 Reported Lactulose 20 Gm/30 Ml Syrp 2 Tbs PO QID 11/12/14 Reported HOLD AFTER 3 BMS A DAY. Vitamin B-1 (Thiamine HCl) 100 Mg Tab 100 Mg PO QAM 04/15/14 Reported Spironolactone 100 Mg Tab 200 Mg PO QAM 04/15/14 Reported Lasix (Furosemide) 40 Mg Tab 40 Mg PO BID 04/04/14 Reported Vitamin B-12 (Cyanocobalamin) 100 Mcg Tab 100 Mcg PO QAM 04/04/14 Reported Valtrex (Valacyclovir Hcl) 1 Gm Tab 1 Gm PO QAM 03/26/14 Reported Xifaxan (Rifaximin) 550 Mg Tab 550 Mg PO BID 03/26/14 Reported Folic Acid 1 Mg Tab 1 Mg PO QAM 03/26/14 Reported Provider Instructions Activity Restrictions - No exercising or heavy lifting for 24 hours. - Do not drink alcohol the day of the procedure. - Do not drive a car or operate machinery until the day after the procedure. - Do not make any important decisions or sign important papers in 24 hours after the procedure. Following Day: - Return to full activity which may include returning to work/school. Diet Start your diet with liquids and light foods (jello, soup, juice, toast). Then eat your usual diet if not nauseated. Treatment For Common After Affects For mild abdominal pain, bloating, or excessive gas: - Rest - Eat lightly - Lie on right side Follow-Up Information Await pathology Repeat egd in 1 year repeat colonsocopy in 6 months Anesthesia Information What You Should Know You have had a procedure that required some medicine to reduce anxiety and discomfort. This treatment is called moderate sedation. After receiving the treatment, you may be sleepy, but you will be able to breathe on your own. The effects of the treatment may last for several hours. Follow these instructions along with Activity/Diet recommendations noted above: * Do NOT do anything where dizziness or clumsiness would be dangerous. * Rest quietly at home today, then you can be up and about tomorrow. * Have a responsible person stay with you the rest of today. * You may have had an I.V. today. If so, you may take the dressing off later today. Recommendations Call your doctor if: * Trouble breathing * Continuous vomiting for more than 24 hours * Temperature above 101 degrees * Severe abdominal pain or bloating * Pain not relieved by pain medicine ordered * There is increased drainage or redness from any incision * A large amount of rectal bleeding greater than 2-3 tablespoons. (If you had a polyp/s removed or have hemorrhoids, a small amount of blood - from the rectum is to be expected.) * You have any unanswered questions or concerns. IN THE EVENT OF A SERIOUS EMERGENCY, GO TO THE NEAREST EMERGENCY ROOM Your discharge instructions were prepared by provider Peter Daniel. Patient Instructions Signature Page Andrea Harvey Patient (or Guardian) Signature/Date: I have read and understand the instructions given to me by my caregivers. Caregiver/RN/Doctor Signature/Date: The above-named patient and/or guardian has received patient instructions on this date. + Original Patient Signature Page (only) stays with chart. Please make copy for patient.
--- NOTE | 2016-11-28 14:08 | GI REPORT ---
Procedure Date: 11/28/2016 1:08 PM Procedure: Colonoscopy Indications: Screening for colorectal malignant neoplasm Medicines: Monitored Anesthesia Care Complications: No immediate complications. Estimated Blood Loss: Estimated blood loss: none. Procedure: Pre-Anesthesia Assessment: - Prior to the procedure, a History and Physical was performed, and patient medications and allergies were reviewed. The patient is competent. The risks and benefits of the procedure and the sedation options and risks were discussed with the patient. All questions were answered and informed consent was obtained. Patient identification and proposed procedure were verified by the physician, the nurse and the cross country truck driver in the procedure room. Mental Status Examination: alert and oriented. Airway Examination: normal oropharyngeal airway and neck mobility. Respiratory Examination: clear to auscultation. CV Examination: normal. ASA Grade Assessment: III - A patient with severe systemic disease. After reviewing the risks and benefits, the patient was deemed in satisfactory condition to undergo the procedure. The anesthesia plan was to use monitored anesthesia care (MAC). Immediately prior to administration of medications, the patient was re-assessed for adequacy to receive sedatives. The heart rate, respiratory rate, oxygen saturations, blood pressure, adequacy of pulmonary ventilation, and response to care were monitored throughout the procedure. The physical status of the patient was re-assessed after the procedure. After I obtained informed consent, the scope was passed under direct vision. Throughout the procedure, the patient's blood pressure, pulse, and oxygen saturations were monitored continuously. The scope was introduced through the anus and advanced to the cecum, identified by appendiceal orifice and ileocecal valve. The colonoscopy was performed without difficulty. The patient tolerated the procedure well. The quality of the bowel preparation was good. The ileocecal valve, appendiceal orifice, and rectum were photographed. Findings: The perianal and digital rectal examinations were normal. A 6 mm polyp was found in the cecum. The polyp was sessile. The polyp was removed with a cold snare. Resection and retrieval were complete. Verification of patient identification for the specimen was done by the physician and nurse using the patient's name and date. Estimated blood loss was minimal. A 20 mm polyp was found in the transverse colon. The polyp was sessile. The polyp was removed with a hot snare. The polyp was removed with a piecemeal technique using a hot snare. Resection and retrieval were complete. A prior tattoo was seen in the transverse colon near the polyp. A 6 mm polyp was found in the rectum. The polyp was sessile. The polyp was removed with a cold snare. Resection and retrieval were complete. Non-bleeding internal hemorrhoids were found during retroflexion. The hemorrhoids were small. Impression: - One 6 mm polyp in the cecum, removed with a cold snare. Resected and retrieved. - One 20 mm polyp in the transverse colon, removed with a hot snare and removed piecemeal using a hot snare. Resected and retrieved. A prior tattoo was seen near the polyp. - One 6 mm polyp in the rectum, removed with a cold snare. Resected and retrieved. - Non-bleeding internal hemorrhoids. Recommendation: - Discharge patient to home (ambulatory). - Resume regular diet today. - Continue present medications. - Await pathology results. - Repeat colonoscopy in 6 months for surveillance after piecemeal polypectomy. Peter Daniel D.O. Peter Daniel, 11/28/2016 2:08:40 PM This report has been signed electronically. Cristiano Tomas M.d. Note Initiated On: 11/28/2016 1:08 PM I attest to the content of the Intraoperative Record and orders documented therein, exceptions below
--- NOTE | 2016-11-28 14:09 | Anesthesiology Progress Note ---
Anesthesia Post Op Note Date & Time Nov 28, 2016 at 14:08 Vital Signs Pain Intensity: 0 Vital Signs Past 12 Hours Date Time Temp Pulse Resp B/P (MAP) Pulse Ox O2 Delivery O2 Flow Rate FiO2 11/28/16 13:54 102 22 106/58 (74) 95 Room Air 11/28/16 12:49 37 94 24 141/85 (103) 99 Nasal Cannula 4 Notes Mental Status: alert / awake / arousable, participated in evaluation Pt Amnestic to Procedure: Yes Nausea / Vomiting: adequately controlled Pain: adequately controlled Airway Patency, RR, SpO2: stable & adequate BP & HR: stable & adequate Hydration State: stable & adequate Anesthetic Complications: no major complications apparent
[2016-11-28 14:25] VITALS: BP 123/71; PULSE 89; O2SAT 96
== END | disposition home or self-care (01) ==
LOC: C.GI 12:13
PROVIDERS: ATTEND Internal Medicine Gastroenterology
DX: K70.30 Alcoholic cirrhosis of liver without ascites (principal); D12.0 Benign neoplasm of cecum; D12.3 Benign neoplasm of transverse colon; K62.1 Rectal polyp; K64.8 Other hemorrhoids; I85.00 Esophageal varices without bleeding; K72.90 Hepatic failure, unspecified without coma; K21.9 Gastro-esophageal reflux disease without esophagitis; I10 Essential (primary) hypertension; J45.909 Unspecified asthma, uncomplicated; D69.6 Thrombocytopenia, unspecified; J44.9 Chronic obstructive pulmonary disease, unspecified; Z98.890 Other specified postprocedural states; Z87.891 Personal history of nicotine dependence; Z68.32 Body mass index [BMI] 32.0-32.9, adult

== ENCOUNTER 2017-02-21 21:38 | Inpatient (IN) | payer OTHER ==
[~2017-02-21] VITALS: Ht 167.6 cm; Wt 92.0 kg
[~2017-02-21 21:38] MED LIST changes: +ANT25 PO; -ATR25 PO; +FERR1TAB23 PO; -IBUP-1050 PO; -LIDOCAINE HCL 2% 2 ML VIAL (20MG/ML) ONE; -MIDAZOLAM HCL 1 MG/ML 2ML VIAL ONE; -ONDANSETRON INJ 2 MG/ML 2 ML VIAL IV PRN; -ONDANSETRON INJ 2 MG/ML 2 ML VIAL ONE; -PHENYLEPHRINE 100MCG/ML 5ML SYR ONE; -PROPOFOL IV EMULSION 10 MG/ML 20 ML VIAL IV ONE; +SPIR100T PO
[2017-02-21] MEDS ORDERED: DICL1GEL12 TOP (22:46)
[2017-02-21] MEDS ORDERED: NICO21DI35 TD (22:46)
[2017-02-21] MEDS ORDERED: SODIUM CHLORIDE 0.9% 500ML 500 ML IV STA (22:48)
[2017-02-21] MEDS ORDERED: ALBUT/IPRATROP 3MG/0.5MG NEB 3 ML VIAL INH STA (22:48)
[2017-02-21] MEDS ORDERED: KETOROLAC TROMETHAMINE 30 MG/ML VIAL IV STA (22:48)
[2017-02-21] MEDS ORDERED: DEXAMETHASONE **PF** INJ 10 MG/ML VIAL ONE (22:55)
[2017-02-21] MEDS ORDERED: DEXAMETHASONE INJ 10 MG in SYRINGE 0 ML IV ONE (23:00)
[2017-02-21 23:56] LABS: BLOOD UREA NITROGEN 14 mg/dl (7-18); CALCIUM 8.7 mg/dl (8.5-10.1); CARBON DIOXIDE 23 mmol/L (21-32); CREATININE 1.22 mg/dl (0.60-1.40); GLUCOSE 81 mg/dl (70-99); LIPASE 166 U/L (73-393); POTASSIUM 3.7 mmol/L (3.5-5.1); SODIUM 132 mmol/L (136-145)
[2017-02-22] VITALS (12 sets, daily range): BP systolic 98–123; BP diastolic 54–86; PULSE 80–134; TEMP 36.1–37.1; O2SAT 95–98; BMI 32.8
[2017-02-22 00:03] LABS: CKMB 2.1 ng/ml (0.5-3.6)
[2017-02-22 00:05] LABS: MEAN CORPUSCULAR HGB CONC 36.3 g/dl (32-36); MEAN PLATELET VOLUME 11.6 fL (7.4-10.4); PLATELET COUNT 49 K/uL (130-400)
[2017-02-22 00:09] LABS: HEMATOCRIT 36.1 % (42-52); HEMOGLOBIN 13.1 g/dL (14.0-18.0); MEAN CELL VOLUME 100.3 fL (80-100); MEAN CORPUSCULAR HEMOGLOBIN 36.4 pg (25-34); RED CELL DISTRIBUTION WIDTH CV 12.8 % (11.5-14.5); RED CELL DISTRIBUTION WIDTH SD 46.8 fL (36.4-46.3); WHITE BLOOD COUNT 1.87 K/uL (4.8-10.8)
[2017-02-22 00:49] LABS: ALKALINE PHOSPHATASE 57 U/L (45-117); ALT/SGPT 38 U/L (12-78); AST/SGOT 61 U/L (15-37); TOTAL PROTEIN 6.5 gm/dl (6.4-8.2)
[2017-02-22] MEDS ORDERED: CEFEPIME IV 2,000 MG in DEXTROSE 5% 100ML 100 ML IV ONE (01:00)
--- NOTE | 2017-02-22 01:20 | EMERGENCY ROOM VISIT NOTE ---
History Report prepared by Stanley: Denise Johnson Under the Supervision of: Dr. Efra Sorto D.O. First contact with patient: 22:10 Chief Complaint: COUGH Stated Complaint: COUGH, CHEST DISCOMFORT Nursing Triage Summary: pt brought to main ED by ALS services from home. ALS reports pt has been having cough/congestion "for a couple days," and reported some chest discomfort. ALS reports "he needs a new liver." pt states he is on a liver transplant list. upon assessment pt states "oh, my lungs feel like they are on fire." pt states he had chest pain 11/14 at home, states "now it's kind of mellowed out." pt c/o cough and congestion x2.5 days. pt alert and oriented x4, breathing regularly and independently. dry/hacking cough noted. History of Present Illness The patient is a 57 year old male who presents to the Emergency Room with complaints of persistent cough starting 2 days ago. The patient presents to the ED by EMS. He reports he felt something tear in his chest while he was coughing. He reports chest pain and SOB. He has a "splitting" headache. His legs feel "like rubber". He has a history of alcohol abuse. He does not drink anymore. He in on a liver transplant list. Source of History: patient Onset: 2 days ago Position: other (global) Quality: other (cough) Timing: other (persistent) Associated Symptoms: + headache, + chest pain, + SOB, + weakness Review of Systems See HPI for pertinent positives & negatives. A total of 10 systems reviewed and were otherwise negative. Past Medical & Surgical Medical Problems: (1) Alcoh Dep Nec/Nos-Unspec (2) Alcohol Cirrhosis Liver (3) Alcoholic cirrhosis of liver with ascites (4) Altered mental status (5) Anemia (6) Bolus impaction of digestive tract (7) Esophageal varices in alcoholic cirrhosis (8) Genital herpes (9) Hepatic encephalopathy (10) History of portal vein thrombosis (11) Portal hypertensive gastropathy (12) SOB (shortness of breath) (13) Thrombocytopenia (14) Tobacco Use Disorder Surgical Problems: (1) History of carpal tunnel surgery (2) History of dental surgery Family History Alcohol abuse SISTER Cancer MOTHER (Lymphoma) Diabetes mellitus FATHER Heart disease Hypertension Social History Smoking Status: Never Smoker Alcohol Use: none Drug Use: none Marital Status: , in relationship Housing Status: lives alone Occupation Status: unemployed Current/Historical Medications Scheduled Cyanocobalamin (Vitamin B-12), 100 MCG PO QAM Folic Acid (Folic Acid), 1 MG PO QAM Furosemide (Lasix), 40 MG PO BID Lactulose (Lactulose), 2 TBS PO QID Nicotine (Nicoderm Cq 21MG Patch), 1 PATCH TD DAILY Omeprazole (Prilosec), 40 MG PO QAM Rifaximin (Xifaxan), 550 MG PO BID Spironolactone (Spironolactone), 200 MG PO QAM Spironolactone (Aldactone), 100 MG PO QPM Thiamine Hcl (Vitamin B-1), 100 MG PO QAM Valacyclovir Hcl (Valtrex), 1 GM PO QAM Scheduled PRN Albuterol Hfa (Ventolin Hfa), 2 PUFFS INH Q4 PRN for SOB/Wheezing Diclofenac Sodium (Topical) (Voltaren 1% Top Gel), 1 APPLN TOP BID PRN for Fluticasone Propionate (Nasal) (Flonase Allergy Relief), 2 SPRAYS GUANAKO DAILY PRN for PRN\\ Meclizine HCl (Meclizine HCl), 25 MG PO TID PRN for Dizziness or Vertigo Ondansetron Hcl (Zofran), 4 MG PO Q6 PRN for Nausea Allergies Coded Allergies: No Known Allergies (Unverified , 11/22/16) Physical Exam Vital Signs Date Time Temp Pulse Resp B/P (MAP) Pulse Ox O2 Delivery O2 Flow Rate FiO2 02/22/17 01:02 96 Nasal Cannula 2.0 02/22/17 01:01 103 24 99/57 88 Room Air 02/22/17 00:00 99 20 103/68 93 Room Air 02/21/17 23:11 100 24 133/91 100 Nebulizer 02/21/17 22:53 94 Room Air 02/21/17 22:04 98 02/21/17 22:00 94 22 138/76 97 Room Air 02/21/17 21:45 96 Room Air 02/21/17 21:45 37.1 95 22 116/63 96 Room Air Physical Exam CONSTITUTIONAL/VITAL SIGNS: Reviewed / noted above. GENERAL: Non-toxic in appearance. INTEGUMENTARY: Warm, dry, and [place]. HEAD: Normocephalic. EYES: without scleral icterus or trauma. ENT/OROPHARYNX: clear and moist. LYMPHADENOPATHY/NECK: Is supple without lymphadenopathy or meningismus. RESPIRATORY: Scattered wheezes. CARDIOVASCULAR: Regular rate and rhythm. GI/ABDOMEN: Soft. Mild tenderness to palpation of the left upper abdomen. No organomegaly or pulsatile mass. No rebound or guarding. Normal bowel sounds. EXTREMITIES: Warm and well perfused. BACK: No CVA tenderness. NEUROLOGICAL: Intact without focal deficits. PSYCHIATRIC: normal affect. MUSCULOSKELETAL: Normally developed with good muscle tone. Medical Decision & Procedures ER Provider Diagnostic Interpretation: Chest x-ray:per my interpretation is negative for acute disease. No pneumonia or pneumothorax. Laboratory Results 02/21/17 21:45 Red Blood Count 3.60, Mean Corpuscular Volume 100.3, Mean Corpuscular Hemoglobin 36.4, Mean Corpuscular Hemoglobin Concent 36.3, Mean Platelet Volume 11.6 02/21/17 21:45 Test 02/21/17 21:45 02/22/17 00:49 02/22/17 00:52 02/22/17 01:01 White Blood Count 1.87 K/uL (4.8-10.8) Red Blood Count 3.60 M/uL (4.7-6.1) Hemoglobin 13.1 g/dL (14.0-18.0) Hematocrit 36.1 % (42-52) Mean Corpuscular Volume 100.3 fL (80-100) Mean Corpuscular Hemoglobin 36.4 pg (25-34) Mean Corpuscular Hemoglobin Concent 36.3 g/dl (32-36) Platelet Count 49 K/uL (130-400) Mean Platelet Volume 11.6 fL (7.4-10.4) RDW Standard Deviation 46.8 fL (36.4-46.3) RDW Coefficient of Variation 12.8 % (11.5-14.5) Neutrophils % (Manual) 49.5 % Lymphocytes % (Manual) 20.4 % Monocytes % (Manual) 26.5 % Eosinophils % (Manual) 1.8 % Basophils % (Manual) 1.8 % (0-2) Neutrophils # (Manual) 0.93 K/uL (1.4-6.5) Total Absolute Neutrophils 0.93 K/uL (1.4-6.5) Lymphocytes # (Manual) 0.38 K/uL (1.2-3.4) Total Absolute Lymphocytes 0.38 K/uL (1.2-3.4) Monocytes # (Manual) 0.50 K/uL (0.11-0.59) Eosinophils # (Manual) 0.03 K/uL (0-0.5) Basophils # (Manual) 0.03 K/uL (0-0.2) Anion Gap 10.0 mmol/L (3-11) Est Creatinine Clear Calc Drug Dose 71.7 ml/min Estimated GFR () 75.8 Estimated GFR (Non- 65.4 BUN/Creatinine Ratio 11.4 (10-20) Calcium Level 8.7 mg/dl (8.5-10.1) Magnesium Level 1.7 mg/dl (1.8-2.4) Total Bilirubin 1.4 mg/dl (0.2-1) Direct Bilirubin 0.4 mg/dl (0-0.2) Aspartate Amino Transf (AST/SGOT) 61 U/L (15-37) Alanine Aminotransferase (ALT/SGPT) 38 U/L (12-78) Alkaline Phosphatase 57 U/L (45-117) Total Creatine Kinase 167 U/L (39-308) Creatine Kinase MB 2.1 ng/ml (0.5-3.6) Creatine Kinase MB Ratio 1.3 (0-3.0) Troponin I < 0.015 ng/ml (0-0.045) Total Protein 6.5 gm/dl (6.4-8.2) Albumin 3.0 gm/dl (3.4-5.0) Lipase 166 U/L (73-393) Thyroid Stimulating Hormone (TSH) 0.668 uIu/ml (0.300-4.500) Laboratory results as stated above per my review. Medications Administered Medications (Trade) Dose Ordered Sig/Kiya Route Start Time Stop Time Status Last Admin Dose Admin Ketorolac Tromethamine (Toradol Inj) 30 mg NOW STAT IV 02/21/17 22:48 02/21/17 22:51 DC 02/21/17 23:03 30 MG Albuterol/ Ipratropium (Duoneb) 3 ml NOW STAT INH 02/21/17 22:48 02/21/17 22:51 DC 02/21/17 23:04 3 ML Sodium Chloride 500 ml @ 999 mls/hr Q31M STAT IV 02/21/17 22:48 02/21/17 23:18 DC 02/21/17 23:08 999 MLS/HR Dexamethasone Sodium Phosphate (Dexamethasone Inj Pf) 10 mg STK-MED ONCE .ROUTE 02/21/17 22:55 02/21/17 22:56 DC 02/21/17 23:08 10 MG ECG Indication: chest pain Rate (beats per minute): 95 Rhythm: normal sinus Findings: no ectopy, other (no acute injury, low voltage QRS) Change: Patient's electrocardiogram interpreted by me. ED Course 8: Previous medical records were reviewed. The patient was evaluated in room C10. A complete history and physical examination was performed. 2248: NSS 500 ml @ 999 mls/hr IV, Duoneb 3 ml INH, Toradol Inj 30 mg IV. 2255: Dexamethasone Sodium Phosphate 10 mg IV. 0039: On reevaluation, the patient is stable. I discussed the results and findings with him. He verbalized agreement of the treatment plan. The patient will be evaluated for further management and care. 0044: I discussed the patient's [facility] The patient will be evaluated for further treatment and disposition. Medical Decision the differential was considered includes acute myocardial infarction, acute coronary syndrome, myocarditis, pericarditis, pericardial effusions /tamponad, esophageal perforation, pulmonary embolism, pneumonia, pneumothorax, cardiomyopathy, congestive heart, anemia , COPD/asthma exacerbation. This is a 57-year-old male who presents to the ED with a chief complaint of a cough. The patient states that he is coughing frequently over the past several days. He reports that he coughs so hard he feels like he may have torn a muscle in his left upper abdomen. The patient also reports some generalized weakness. His vital signs are normal. His physical exam was relatively unremarkable with exception of some mild tenderness of the left upper quadrant. A twelve-lead EKG reveals per my interpretation normal sinus rhythm at a rate of 95 with low voltage. Chest x-ray did not show any obvious acute process per my interpretation. The patient's white blood cell count is low at 1.87, platelet count is low at 49. ANC was 0.93. Troponin and PRP were normal, lipase is negative. The patient did have some hypoxia while he was resting in bed with oxygen saturations around 88%. He also developed significant coughing at one point during his ED stay. Because of the patient's low white count, hypoxia and symptoms of cough as well as his history, the patient will be evaluated by the hospitalist for inpatient evaluation. The patient did report some generalized weakness and does not feel capable of getting around his house adequately. Medication Reconcilliation Current Medication List: was personally reviewed by me Blood Pressure Screening Patient's blood pressure: Normal blood pressure Blood pressure disposition: Did not require urgent referral Consults Time Called: 41 Consulting Physician: Dr. Goss [facility] hospitalist Returned Call: 0044 Discussed the patient's case. The patient will be evaluated for further treatment and disposition. Impression Primary Impression: Leukopenia Additional Impressions: URI (upper respiratory infection) Hypoxia Generalized weakness Thrombocytopenia Scribe Attestation The scribe's documentation has been prepared under my direction and personally reviewed by me in its entirety. I confirm that the note above accurately reflects all work, treatment, procedures, and medical decision making performed by me. Departure Information Dispostion Being Evaluated By Hospitalist Referrals Najma Garcia M.D. (PCP) Patient Instructions My [facility] Problem Qualifiers
[2017-02-22] MEDS ORDERED: MoRPHine SULFATE 4 MG/ML 1 ML CARP\\VIAL IV PRN (01:30)
[2017-02-22] MEDS ORDERED: LEVALBUTEROL/IPRATROPIUM NEB INH PRN (01:30)
[2017-02-22] MEDS ORDERED: PROCHLORPERAZINE INJ 5 MG in SYRINGE 4 ML IV PRN (01:30)
[2017-02-22] MEDS ORDERED: OPTIRAY 320 IV PRN (01:30)
[2017-02-22] MEDS ORDERED: ACETAMINOPHEN 325 MG TAB PO PRN (01:30)
[2017-02-22] MEDS ORDERED: IV FLUIDS COMPLETED PRN (01:45)
[2017-02-22 02:17] LABS: INFLUENZA B ANTIGEN Neg for Influ B (NEG)
[2017-02-22] MEDS ORDERED: MAGNESIUM SULFATE 1GM / D5W 1 GM in PREMIXED IN D5W 100 ML IV ONE (02:30)
[2017-02-22 02:31] LABS: PTT PATIENT 26.7 SECONDS (21.0-31.0)
[2017-02-22] MEDS ORDERED: LACTULOSE SYRUP 20 GM/30 ML UDC PO ONE (02:39)
[2017-02-22] MEDS ORDERED: RIFAXIMIN TAB 550 MG TAB PO ONE (02:39)
[2017-02-22] MEDS ORDERED: OSELTAMIVIR PHOSPHATE 75 MG CAP PO ONE (02:45)
[2017-02-22] MEDS ORDERED: GUAIFENESIN 600 MG TABCR PO ONE (02:45)
[2017-02-22] MEDS ORDERED: NSS + 20MEQ KCL 1000ML 1,000 ML IV ONE (02:45)
--- NOTE | 2017-02-22 02:56 | HISTORY & PHYSICAL EXAMINATION ---
DATE OF ADMISSION: 02/22/2017 PRIMARY CARE PHYSICIAN: Najma Garcia MD. CHIEF COMPLAINT: Shortness of breath. HISTORY OF PRESENT ILLNESS: History obtained from patient and records. Medical history is significant for alcoholic cirrhosis, past tobacco abuse, genital herpes on chronic acyclovir, portal vein thrombosis as per records, chronic thrombocytopenia, chronic anemia (baseline hemoglobin of 13), chronic hyponatremia. Recent confinement last December 2016 for hepatic encephalopathy. Last 2 days, the patient noted cough symptoms mostly dry with pleuritic central chest pain with shortness of breath symptoms. Denies aspiration. Patient also noted achy left-sided, abdominal pain, usual loose stools attributed to lactulose, nonbloody as per patient. No known sick contacts. Generalized weakness, "legs felt like noodles." The patient brought to Emergency Room by EMS. O2 sats 80s on room air. Given Decadron, nebs in the ER for bronchitis. MEDICAL HISTORY: As above. A 2D echo from November 2016 showed EF of 60-64%. No evidence of pulmonary hypertension. SURGERIES: none. HOME MEDICATIONS: Include Aldactone, spironolactone, thiamine, Valtrex, lactulose, meclizine, Nicoderm, Prilosec, Zofran, Ventolin, vitamin B12, Voltaren, Flonase, folic acid, Lasix. ALLERGIES: No known drug allergies. FAMILY HISTORY: Diabetes. PERSONAL AND SOCIAL HISTORY: Past tobacco/alcohol abuse, disabled. REVIEW OF SYSTEMS: As per HPI. All 10 systems reviewed. All other ROS negative. PHYSICAL EXAMINATION: VITAL SIGNS: Blood pressure was noted to be 130/91, pulse rate 105, RR 24, temperature 37.1, O2 sats 88 RA later 94 on 2 liters. GENERAL: Noted to be uncomfortable, obese, min respiratory distress. Mild slurring. SKIN: Pallor. Warm. HEENT: Pale palpebral conjunctivae. No ptosis. Dry mucosa. NECK: Supple, nontender. CHEST: Occasional expiratory wheezes. anterior chest wall tenderness. HEART: Tachycardic. No murmur. ABDOMEN: Soft, some distension, nontender. EXTREMITIES: Minimal LE edema, no tenderness. No gross deformities. NEUROLOGIC: Coherent. No gross focality except for occasional slurring. LABORATORY DATA: Hemoglobin was noted to be 13.1, hematocrit 36.1, white cell count 1.87, platelets noted to be 49. Sodium noted to be 132, potassium 3.7, chloride 99, CO2 20, BUN 40, creatinine 1.0, glucose was noted to be 81. Troponin noted to be 0.015. Chest x-ray as per my interpretation atelectasis. EKG as per my interpretation, normal sinus rhythm, no ischemia. ASSESSMENT: 1. Hypoxemic respiratory failure secondary to viral bronchitis Rule out influenza rule out pulmonary embolism with pleuritic chest pain/dyspnea symptoms. 2. Left-sided abdominal pain from cough, rule out splenic rupture . 3. History of alcoholic cirrhosis, no overt decompensation. Patient somewhat on the dry side. 4. Past tobacco abuse. 5. Occasional slurring/lethargy at the ER ? hepatic encephalopathy. 6. Leukopenia secondary to a viral illness ? acyclovir toxicity. (Chronic Rx for herpes) 7. chronic thrombocytopenia secondary to cirrhosis 8. Chronic anemia, hemoglobin at baseline 9. chronic hyponatremia secondary to cirrhosis PLAN: PCU supplemental O2. Baseline ABG. Flu swab supportive measures for viral bronchitis. CT chest, PE study. CT abdomen and pelvis, left quadrant pain. Check ammonia level Hold home diuretics for now until patient euvolemic. Peripheral blood smear, follow WBC, hold Acyclovir for now, may need Hematology opinion if without improvement DVT prophylaxis, SCDs. RE Thrombocytopenia. Full code. MTDD
[2017-02-22] MEDS: LEVALBUTEROL 1.25MG/0.5ML NEB INH SCH ×5 (03:00→18:39)
[2017-02-22] MEDS: IPRATROPIUM BROMIDE NEB SOLN 0.02% 2.5 ML VIAL INH SCH ×5 (03:00→18:39)
[2017-02-22] MEDS ORDERED: LEVALBUTEROL/IPRATROPIUM NEB INH SCH (03:00)
[2017-02-22] MEDS: NICOTINE 21 MG/24 HR TDSY TD SCH (03:01)
[2017-02-22] MEDS ORDERED: COUGH DROP (SUGAR FREE) LOZ 24 LOZ/1 BOX ONE (04:38)
[2017-02-22] MEDS ORDERED: COUGH DROP (SUGAR FREE) LOZ 24 LOZ/1 BOX PO PRN (05:00)
[2017-02-22 06:23] LABS: HEMATOCRIT 34.7 % (42-52); HEMOGLOBIN 12.5 g/dL (14.0-18.0); MEAN CELL VOLUME 100.9 fL (80-100); MEAN CORPUSCULAR HEMOGLOBIN 36.3 pg (25-34); MEAN PLATELET VOLUME 11.1 fL (7.4-10.4); PLATELET COUNT 37 K/uL (130-400); RED CELL DISTRIBUTION WIDTH CV 12.9 % (11.5-14.5); RED CELL DISTRIBUTION WIDTH SD 47.6 fL (36.4-46.3); WHITE BLOOD COUNT 0.86 K/uL (4.8-10.8)
[2017-02-22 06:24] LABS: BASO % 1.2 %; BASO ABS # 0.01 K/uL (0-0.2); EOS % 1.2 %; EOS ABS # 0.01 K/uL (0-0.5); LYMPH % 16.3 %; LYMPH ABS # 0.14 K/uL (1.2-3.4); MONO % 9.3 %; MONO ABS # 0.08 K/uL (0.11-0.59); NEUT ABS # 0.62 K/uL (1.4-6.5)
[2017-02-22 06:27] LABS: ALBUMIN 2.9 gm/dl (3.4-5.0); ALT/SGPT 37 U/L (12-78); AST/SGOT 61 U/L (15-37); BLOOD UREA NITROGEN 15 mg/dl (7-18); CALCIUM 8.3 mg/dl (8.5-10.1); CARBON DIOXIDE 21 mmol/L (21-32); CREATININE 1.42 mg/dl (0.60-1.40); GLUCOSE 210 mg/dl (70-99); SODIUM 129 mmol/L (136-145)
[2017-02-22 06:32] LABS: ALKALINE PHOSPHATASE 57 U/L (45-117); TOTAL PROTEIN 6.5 gm/dl (6.4-8.2)
--- NOTE | 2017-02-22 06:32 | DIAGNOSTIC IMAGING REPORT ---
CHEST ONE VIEW PORTABLE CLINICAL HISTORY: Fever, sepsis COMPARISON STUDY: No previous studies for comparison. FINDINGS: The heart is at the upper limits of normal in size. There is slight interstitial prominence. There is no focal pulmonary consolidation. There are no pleural effusions.[ IMPRESSION: Mild nonspecific interstitial thickening. No evidence of focal pulmonary consolidation. Electronically signed by: Layo Murillo M.D. 02/22/2017 6:31 AM Dictated Date/Time: 02/22/2017 6:30 AM
[2017-02-22] MEDS ORDERED: SODIUM CHLORIDE 0.9% 1000ML 1,000 ML IV STA (06:43)
--- NOTE | 2017-02-22 06:49 | DIAGNOSTIC IMAGING REPORT ---
(CHEST FOR PE) ANGIO WITH CT DOSE: 1097.17 mGy.cm HISTORY: 57 years-old Male presents with acute cough. TECHNIQUE: Multiple CTA images of the chest were obtained after the intravenous administration of 93 ml Optiray 320. Coronal and sagittal MIPS were obtained from the axial data set and were submitted for review. A dose lowering technique was utilized adhering to the principles of ALARA. COMPARISON: Chest radiograph 02/21/2017, CTA of the chest 03/28/2014. FINDINGS: CTA: The heart is normal in size and demonstrates scattered pericardial calcifications. The thoracic aorta is normal in both course and caliber without aneurysm or dissection. Minimal atheromatous plaquing of the aorta. The pulmonary arterial tree is opacified to level of the proximal subsegmental branches and demonstrates no focal filling defects to suggest pulmonary thromboembolic disease. CT CHEST: No dominant thyroid nodule identified. No pathologically enlarged lymph nodes about the chest identified. Mildly prominent 8 mm right hilar lymph node is seen on image 144 series 4, likely reactive. No pleural effusion or pneumothorax. Mild dependent subsegmental groundglass opacities suggest atelectasis. There is moderate bilateral bronchial wall thickening within a multilobar distribution. No lobar airspace consolidation to suggest pneumonia. No suspicious pulmonary nodules or masses. Central airways are patent. Cirrhotic morphology of the liver. No acute abnormality identified of the imaged upper abdomen. Soft tissues are unremarkable. Bones appear intact. IMPRESSION: 1. No acute aortic pathology or evidence of pulmonary thromboembolic disease. 2. Moderate multilobar bilateral distribution of bronchial wall thickening suggests bronchitis without focal airspace consolidation to suggest pneumonia. 3. Scattered pericardial calcifications suggests sequela of remote pericarditis. 4. Cirrhotic liver disease. The above report was generated using voice recognition software. It may contain grammatical, syntax or spelling errors. Electronically signed by: Eliceo Herrera M.D. 02/22/2017 6:47 AM Dictated Date/Time: 02/22/2017 6:41 AM
--- NOTE | 2017-02-22 06:56 | DIAGNOSTIC IMAGING REPORT ---
ABD/PELVIS IV CONTRAST ONLY CT DOSE: HISTORY: Pain LUQ pain TECHNIQUE: Multiaxial CT images of the abdomen and pelvis were performed following the use of intravenous contrast. A dose lowering technique was utilized adhering to the principles of ALARA. COMPARISON STUDY: 09/16/2016 FINDINGS: Lung bases are clear. Cardiac cortical scarring of the outer margins of the liver consistent with cirrhotic change. Gallbladder is negative for distention. Spleen is top limits normal terms of size. Pancreas is uniform. Small distal periesophageal nodes unaltered from the prior study. Nonobstructive bowel pattern. No free fluid within the pelvic cul-de-sac. Bladder is midline. IMPRESSION: 1. Hepatic cirrhosis. 2. Mild stable splenomegaly. 3. No acute process in the abdomen or pelvis. The above report was generated using voice recognition software. It may contain grammatical, syntax or spelling errors. Electronically signed by: Samir Garcia M.D. 02/22/2017 6:54 AM Dictated Date/Time: 02/22/2017 6:50 AM
[2017-02-22] MEDS ORDERED: PNEUMOCOCCAL ADMINISTRATION CHARGE ONE (08:00)
[2017-02-22] MEDS ORDERED: PNEUMOCOCCAL POLYSACCHARIDES 25 MCG/0.5 ML VIAL/SYR IM. ONE (08:00)
[2017-02-22] MEDS ORDERED: SODIUM CHLORIDE 0.9% 1000ML 1,000 ML IV SCH (08:00)
[2017-02-22] MEDS: THIAMINE HCL 100 MG TAB PO SCH (08:29)
[2017-02-22] MEDS: CYANOCOBALAMIN 100 MCG TAB (VIT B-12) PO SCH (08:30)
[2017-02-22] MEDS: LACTULOSE SYRUP 20 GM/30 ML UDC PO SCH ×4 (08:30→21:00)
[2017-02-22] MEDS: PANTOprazole SOD 40 MG TAB PO SCH (08:30)
[2017-02-22] MEDS: RIFAXIMIN TAB 550 MG TAB PO SCH ×2 (08:30→22:31)
[2017-02-22] MEDS: TRAMADOL HCL 50 MG TAB PO PRN ×3 (08:36→19:26)
[2017-02-22] MEDS ORDERED: MECLIZINE HCL 12.5 MG TAB PO PRN (12:15)
[2017-02-22] MEDS ORDERED: TRAMADOL HCL 50 MG TAB PO ONE (12:45)
[2017-02-22 13:14] LABS: CALCIUM 8.2 mg/dl (8.5-10.1); CREATININE 1.32 mg/dl (0.60-1.40)
[2017-02-22] MEDS: LORAZEPAM 2 MG/ML 1 ML VIAL IV PRN (15:19)
[2017-02-22] MEDS ORDERED: METOPROLOL TARTRATE 1 MG/ML VIAL IV PRN (18:15)
--- NOTE | 2017-02-22 18:58 | Progress Note ---
Medicine Progress Note Date & Time of Visit: Feb 22, 2017 at 09:43. Subjective Pt was seen and examined Lying in bed with no distress Pt said that he feels slightly better He said that He continues to cough and his breathing slightly improved Pt said that he feels very weak denies any chest pain and fever Objective Last 8 Hrs Date Time Temp Pulse Resp B/P (MAP) Pulse Ox O2 Delivery O2 Flow Rate FiO2 02/22/17 18:39 102 24 97 Nasal Cannula 2.0 02/22/17 18:23 122 02/22/17 16:00 Nasal Cannula 2.0 02/22/17 15:15 36.8 134 28 123/86 (98) 98 Nasal Cannula 2.0 02/22/17 14:29 88 28 98 Nasal Cannula 2.0 02/22/17 12:30 Nasal Cannula 2.0 02/22/17 11:26 36.6 113 20 122/68 (86) 96 Nasal Cannula 2.0 Physical Exam: General- No acute distress Head- atraumatic Eyes- PERRL, EOMI ENT- oropharynx clear Neck- supple, no JVD Lungs- + wheezing Heart- +tachycardia Abdomen- normal bowel sounds, soft Extremities- no calf tenderness Neuro- alert, oriented x 3; PERRL, EOMI Skin- warm & dry Laboratory Results: Last 24 Hours Test 02/21/17 21:45 02/22/17 01:01 02/22/17 01:41 02/22/17 05:31 White Blood Count 1.87 K/uL 0.86 K/uL Red Blood Count 3.60 M/uL 3.44 M/uL Hemoglobin 13.1 g/dL 12.5 g/dL Hematocrit 36.1 % 34.7 % Mean Corpuscular Volume 100.3 fL 100.9 fL Mean Corpuscular Hemoglobin 36.4 pg 36.3 pg Mean Corpuscular Hemoglobin Concent 36.3 g/dl 36.0 g/dl Platelet Count 49 K/uL 37 K/uL Mean Platelet Volume 11.6 fL 11.1 fL RDW Standard Deviation 46.8 fL 47.6 fL RDW Coefficient of Variation 12.8 % 12.9 % Neutrophils % (Manual) 49.5 % Lymphocytes % (Manual) 20.4 % Monocytes % (Manual) 26.5 % Eosinophils % (Manual) 1.8 % Basophils % (Manual) 1.8 % Neutrophils # (Manual) 0.93 K/uL Total Absolute Neutrophils 0.93 K/uL Lymphocytes # (Manual) 0.38 K/uL Total Absolute Lymphocytes 0.38 K/uL Monocytes # (Manual) 0.50 K/uL Eosinophils # (Manual) 0.03 K/uL Basophils # (Manual) 0.03 K/uL Peripheral Blood Smear Path Consult Sodium Level 132 mmol/L 129 mmol/L Potassium Level 3.7 mmol/L 4.0 mmol/L Chloride Level 99 mmol/L 100 mmol/L Carbon Dioxide Level 23 mmol/L 21 mmol/L Anion Gap 10.0 mmol/L 8.0 mmol/L Blood Urea Nitrogen 14 mg/dl 15 mg/dl Creatinine 1.22 mg/dl 1.42 mg/dl Est Creatinine Clear Calc Drug Dose 71.7 ml/min 61.0 ml/min Estimated GFR () 75.8 63.1 Estimated GFR (Non- 65.4 54.4 BUN/Creatinine Ratio 11.4 10.3 Random Glucose 81 mg/dl 210 mg/dl Calcium Level 8.7 mg/dl 8.3 mg/dl Magnesium Level 1.7 mg/dl 2.3 mg/dl Total Bilirubin 1.4 mg/dl 1.4 mg/dl Direct Bilirubin 0.4 mg/dl 0.5 mg/dl Aspartate Amino Transf (AST/SGOT) 61 U/L 61 U/L Alanine Aminotransferase (ALT/SGPT) 38 U/L 37 U/L Alkaline Phosphatase 57 U/L 57 U/L Total Creatine Kinase 167 U/L Creatine Kinase MB 2.1 ng/ml Creatine Kinase MB Ratio 1.3 Troponin I < 0.015 ng/ml < 0.015 ng/ml Total Protein 6.5 gm/dl 6.5 gm/dl Albumin 3.0 gm/dl 2.9 gm/dl Lipase 166 U/L Thyroid Stimulating Hormone (TSH) 0.668 uIu/ml Influenza Type A Antigen POS for Influ A Influenza Type B Antigen Neg for Influ B Activated Partial Thromboplast Time 26.7 SECONDS Partial Thromboplastin Ratio 1.0 Venous Blood pH 7.43 Venous Blood Partial Pressure CO2 36 mmHg Venous Blood Partial Pressure O2 44 mmHg Venous Blood HCO3 23 mmol/L Venous Blood Oxygen Saturation 78.8 % Venous Blood Base Excess -0.6 mEq/L Ammonia 53.0 umol/L Ethyl Alcohol mg/dL < 3.0 mg/dl Neutrophils (%) (Auto) 72.0 % Lymphocytes (%) (Auto) 16.3 % Monocytes (%) (Auto) 9.3 % Eosinophils (%) (Auto) 1.2 % Basophils (%) (Auto) 1.2 % Neutrophils # (Auto) 0.62 K/uL Lymphocytes # (Auto) 0.14 K/uL Monocytes # (Auto) 0.08 K/uL Eosinophils # (Auto) 0.01 K/uL Basophils # (Auto) 0.01 K/uL Immature Granulocyte % (Auto) 0.0 % Immature Granulocyte # (Auto) 0.00 K/uL Test 02/22/17 05:36 02/22/17 12:23 02/22/17 16:05 02/22/17 17:42 Lactic Acid Level 3.4 mmol/L 6.0 mmol/L 4.7 mmol/L Sodium Level 129 mmol/L Potassium Level 4.0 mmol/L Chloride Level 100 mmol/L Carbon Dioxide Level 15 mmol/L Anion Gap 15.0 mmol/L Blood Urea Nitrogen 15 mg/dl Creatinine 1.32 mg/dl Est Creatinine Clear Calc Drug Dose 65.6 ml/min Estimated GFR () 68.9 Estimated GFR (Non- 59.5 BUN/Creatinine Ratio 11.5 Random Glucose 307 mg/dl Calcium Level 8.2 mg/dl Ammonia 78.7 umol/L Beta-Hydroxybutyric Acid 0.94 mg/dL Bedside Glucose 283 mg/dl Date/Time Source Procedure Growth Status 02/22/17 01:41 Blood Blood Culture Pending Received 02/22/17 01:35 Blood Blood Culture Pending Received Assessment & Plan Hypoxemic respiratory failure Influenza A CXR showed Mild nonspecific interstitial thickening. No evidence of focal pulmonary consolidation. CTA chest showed NO PE Continue Tamiflu and prednisone Continue guaifenesin for the cough Elevated lactic acid, will monitor Blood cx pending Will check Procalcitonin and if positive will start on IV abx Elevated Lactic acid Possible related to hypoxia vs infection WBC 0.8 Check procalciton Will repeat lactic acid received cefepime in the ER Blood cx pending Left-sided abdominal pain Secondary to cough CT abd/pelvis showed No acute process in the abdomen or pelvis History of alcoholic cirrhosis Stable Tobacco abuse Recently quit On nicotine patch Leukopenia/Thrombocytopenia secondary to acute illness/Liver Cirrhosis Monitor CBC Will monitor for sign of bleeding Hematology consulted Chronic anemia Hbg 12.5 stable Chronic hyponatremia secondary to Liver cirrhosis Received IVF Monitor BMP ILIA on CKD Creatine on admission 1.4 Creatine today 1.3 Lasix and spironolactone held Will resume D/C IVF DVT px on SCDs due to low platelet CODE STATUS FULL CODE Current Inpatient Medications: Current Inpatient Medications Medications (Trade) Dose Ordered Sig/Kiya Route Start Time Stop Time Status Last Admin Dose Admin Ioversol (Optiray 320) 100 ml UD PRN IV 02/22/17 01:30 02/26/17 01:29 Acetaminophen (Tylenol Tab) 325 mg Q6H PRN PO 02/22/17 01:30 03/24/17 01:29 Prochlorperazine Edisylate 5 mg/ Syringe 5 ml @ 5 mls/min Q6H PRN IV 02/22/17 01:30 03/24/17 01:29 Tramadol HCl (Ultram Tab) 25 mg Q6H PRN PO 02/22/17 01:30 03/24/17 01:29 02/22/17 12:26 50 MG Lorazepam (Ativan Inj) 0.5 mg Q4H PRN IV 02/22/17 01:30 03/24/17 01:29 02/22/17 15:19 0.5 MG Morphine Sulfate (MoRPHine SULFATE INJ) 4 mg Q6H PRN IV 02/22/17 01:30 03/08/17 01:29 Guaifenesin (Mucinex Contr Rel Tab) 600 mg Q12 PO 02/22/17 21:00 03/24/17 20:59 Benzonatate (Tessalon Perles Cap) 100 mg TID PRN PO 02/22/17 01:30 03/24/17 01:29 Cyanocobalamin (Vitamin B-12 Tab) 100 mcg QAM PO 02/22/17 09:00 03/24/17 08:59 02/22/17 08:30 100 MCG Folic Acid (Folvite Tab) 1 mg QAM PO 02/22/17 09:00 03/24/17 08:59 02/22/17 08:29 1 MG Lactulose (Chronulac Syrup) 20 gm QID PO 02/22/17 09:00 03/24/17 08:59 02/22/17 17:14 20 GM Nicotine (Nicoderm Cq 21MG Patch) 1 patch DAILY TD 02/22/17 09:00 03/24/17 08:59 02/22/17 03:01 1 PATCH Rifaximin (Xifaxan Tab) 550 mg BID PO 02/22/17 09:00 03/24/17 08:59 02/22/17 08:30 550 MG Thiamine HCl (Vitamin B-1 Tab) 100 mg QAM PO 02/22/17 09:00 03/24/17 08:59 02/22/17 08:29 100 MG Pantoprazole Sodium (Protonix Tab) 40 mg QAM PO 02/22/17 09:00 03/24/17 08:59 02/22/17 08:30 40 MG Miscellaneous (Iv Fluids Completed) 1 ea PRN PRN N/A 02/22/17 01:45 02/22/18 01:44 Ipratropium [place] (Atrovent 0.02% 0.5MG/2.5ML Neb) 0.5 mg Q6R INH 02/22/17 03:00 03/24/17 02:59 02/22/17 18:39 0.5 MG Levalbuterol (Xopenex 1.25MG/ 0.5ML Neb) 1.25 mg Q6R INH 02/22/17 03:00 03/24/17 02:59 02/22/17 18:39 1.25 MG Ipratropium [place] (Atrovent 0.02% 0.5MG/2.5ML Neb) 0.5 mg Q4H PRN INH 02/22/17 02:00 03/24/17 01:59 Levalbuterol (Xopenex 1.25MG/ 0.5ML Neb) 1.25 mg Q4H PRN INH 02/22/17 02:00 03/24/17 01:59 Miscellaneous (Remove Nicoderm Patch) 1 ea QAM N/A 02/23/17 09:00 03/25/17 08:59 Oseltamivir Phosphate (Tamiflu Cap) 75 mg BID PO 02/22/17 21:00 02/27/17 20:59 Menthol (Nice Wilber) 1 wilber PRN PRN PO 02/22/17 05:00 03/24/17 04:59 Prednisone (PredniSONE TAB) 20 mg DAILY PO 02/23/17 09:00 02/27/17 08:59 Meclizine HCl (Antivert Tab) 12.5 mg Q6 PRN PO 02/22/17 12:15 03/24/17 12:14 Metoprolol Tartrate (Lopressor Iv) 2.5 mg Q6 PRN IV 02/22/17 18:15 03/24/17 18:14 02/22/17 18:23 2.5 MG
[2017-02-22] MEDS: BENZONATATE 100MG CAP PO PRN (20:15)
[2017-02-22 20:35] LABS: RETIC COUNT % 1.6 % (0.5-2.0)
--- NOTE | 2017-02-22 21:06 | Medical Consult ---
Consultation Date of Consultation: Feb 22, 2017. Attending Physician: Elizabeth Adame M.D. Reason for Consultation: pancytopenia History of Present Illness 57 year old male with history of alcoholic liver cirrhosis with portal hypertension, mild splenomegaly and chronic thrombocytopenia admitted with generalized weakness decreased appetite and cough and shortness of breath and left sided abdominal pain. Patient states that symptoms started about 2 days before with malaise and cough and generally weak. He tested positive for Influenza A. On 01/15/17 WBC 5.25 hemoglobin 14.6 and platelet count 63,000 MCV 102.5 CBC shows pancytopenia with absolute neutropenia and macrocytic anemia His platelet count is decreased from baseline He denies hemoptysis Cough is mostly nonproductive denies any known sick contacts Past Medical/Surgical History PMH: Alcoholic cirrhosis hepatic encephalopathy, past history of alcohol abuse, esophageal varices, portal hypertensive gastropathy, genital herpes PSH: elbow surgery Medical Problems: (1) Abdominal pain Status: Acute (2) Generalized weakness Status: Acute (3) Hepatic insufficiency Status: Acute (4) History of cirrhosis Status: Acute (5) Hypoxia Status: Acute (6) Leukopenia Status: Acute (7) Lyme disease Status: Acute (8) Right arm numbness Status: Acute (9) Thrombocytopenia Status: Chronic (10) URI (upper respiratory infection) Status: Acute (11) Vertigo Status: Acute Family History Alcohol abuse SISTER Cancer MOTHER (Lymphoma) Diabetes mellitus FATHER Heart disease Hypertension mother had cancer and he said she was a smoker Social History Smoking Status: Former Smoker Smokeless Tobacco Use: Yes (chew) Alcohol Use: none (denies any recent alcohol, quit in 2013) Drug Use: none Marital Status: , in relationship Housing Status: lives alone Occupation Status: unemployed Allergies Coded Allergies: No Known Allergies (Unverified , 11/22/16) Current Inpatient Medications Current Inpatient Medications Medications (Trade) Dose Ordered Sig/Kiya Route Start Time Stop Time Status Last Admin Dose Admin Ioversol (Optiray 320) 100 ml UD PRN IV 02/22/17 01:30 02/26/17 01:29 Acetaminophen (Tylenol Tab) 325 mg Q6H PRN PO 02/22/17 01:30 03/24/17 01:29 Prochlorperazine Edisylate 5 mg/ Syringe 5 ml @ 5 mls/min Q6H PRN IV 02/22/17 01:30 03/24/17 01:29 Tramadol HCl (Ultram Tab) 25 mg Q6H PRN PO 02/22/17 01:30 03/24/17 01:29 02/22/17 19:26 25 MG Lorazepam (Ativan Inj) 0.5 mg Q4H PRN IV 02/22/17 01:30 03/24/17 01:29 02/22/17 15:19 0.5 MG Morphine Sulfate (MoRPHine SULFATE INJ) 4 mg Q6H PRN IV 02/22/17 01:30 03/08/17 01:29 Guaifenesin (Mucinex Contr Rel Tab) 600 mg Q12 PO 02/22/17 21:00 03/24/17 20:59 Benzonatate (Tessalon Perles Cap) 100 mg TID PRN PO 02/22/17 01:30 03/24/17 01:29 02/22/17 20:15 100 MG Cyanocobalamin (Vitamin B-12 Tab) 100 mcg QAM PO 02/22/17 09:00 03/24/17 08:59 02/22/17 08:30 100 MCG Folic Acid (Folvite Tab) 1 mg QAM PO 02/22/17 09:00 03/24/17 08:59 02/22/17 08:29 1 MG Lactulose (Chronulac Syrup) 20 gm QID PO 02/22/17 09:00 03/24/17 08:59 02/22/17 17:14 20 GM Nicotine (Nicoderm Cq 21MG Patch) 1 patch DAILY TD 02/22/17 09:00 03/24/17 08:59 02/22/17 03:01 1 PATCH Rifaximin (Xifaxan Tab) 550 mg BID PO 02/22/17 09:00 03/24/17 08:59 02/22/17 08:30 550 MG Thiamine HCl (Vitamin B-1 Tab) 100 mg QAM PO 02/22/17 09:00 03/24/17 08:59 02/22/17 08:29 100 MG Pantoprazole Sodium (Protonix Tab) 40 mg QAM PO 02/22/17 09:00 03/24/17 08:59 02/22/17 08:30 40 MG Miscellaneous (Iv Fluids Completed) 1 ea PRN PRN N/A 02/22/17 01:45 02/22/18 01:44 Ipratropium [place] (Atrovent 0.02% 0.5MG/2.5ML Neb) 0.5 mg Q6R INH 02/22/17 03:00 03/24/17 02:59 02/22/17 18:39 0.5 MG Levalbuterol (Xopenex 1.25MG/ 0.5ML Neb) 1.25 mg Q6R INH 02/22/17 03:00 03/24/17 02:59 02/22/17 18:39 1.25 MG Ipratropium [place] (Atrovent 0.02% 0.5MG/2.5ML Neb) 0.5 mg Q4H PRN INH 02/22/17 02:00 03/24/17 01:59 Levalbuterol (Xopenex 1.25MG/ 0.5ML Neb) 1.25 mg Q4H PRN INH 02/22/17 02:00 03/24/17 01:59 Miscellaneous (Remove Nicoderm Patch) 1 ea QAM N/A 02/23/17 09:00 03/25/17 08:59 Oseltamivir Phosphate (Tamiflu Cap) 75 mg BID PO 02/22/17 21:00 02/27/17 20:59 Menthol (Nice Jovanna) 1 jovanna PRN PRN PO 02/22/17 05:00 03/24/17 04:59 Prednisone (PredniSONE TAB) 20 mg DAILY PO 02/23/17 09:00 02/27/17 08:59 Meclizine HCl (Antivert Tab) 12.5 mg Q6 PRN PO 02/22/17 12:15 03/24/17 12:14 Metoprolol Tartrate (Lopressor Iv) 2.5 mg Q6 PRN IV 02/22/17 18:15 03/24/17 18:14 02/22/17 18:23 2.5 MG Spironolactone (Aldactone Tab) 200 mg QAM PO 02/23/17 09:00 03/25/17 08:59 Review of Systems Constitutional: + weakness (generalized), + fatigue, No fever, No chills ENT: + nasal symptoms, No unusual epistaxis, No sore throat, No trouble swallowing Respiratory: + cough, + sputum, + wheezing, + shortness of breath, No hemoptysis Cardiovascular: No chest pain, No edema, No palpitations Abdomen: + pain (left sided), No nausea, No vomiting, No diarrhea, No constipation, No GI bleeding Musculoskeletal: No joint pain Genitourinary - Male: No hematuria, No dysuria, No urinary frequency Neurologic: No numbness/tingling Endocrine: + fatigue Hematologic / Lymphatic: + problem reported (easy bruising) Integumentary: No rash, No itch Physical Exam Date Time Temp Pulse Resp B/P (MAP) Pulse Ox O2 Delivery O2 Flow Rate FiO2 02/22/17 18:39 102 24 97 Nasal Cannula 2.0 02/22/17 18:23 122 02/22/17 16:00 Nasal Cannula 2.0 02/22/17 15:15 36.8 134 28 123/86 (98) 98 Nasal Cannula 2.0 02/22/17 14:29 88 28 98 Nasal Cannula 2.0 02/22/17 12:30 Nasal Cannula 2.0 02/22/17 11:26 36.6 113 20 122/68 (86) 96 Nasal Cannula 2.0 02/22/17 08:30 98 Nasal Cannula 2.0 02/22/17 07:42 36.1 114 20 119/73 (88) 98 Nasal Cannula 2.0 02/22/17 07:14 88 22 98 Nasal Cannula 2.0 02/22/17 06:12 93 22 98 Nasal Cannula 3.0 02/22/17 04:03 37.1 94 16 116/54 (74) 95 Room Air 02/22/17 04:00 Nasal Cannula 2.0 02/22/17 02:05 37.0 86 18 120/74 97 Nasal Cannula 2.0 02/22/17 01:43 97 20 97/64 98 02/22/17 01:02 96 Nasal Cannula 2.0 02/22/17 01:01 103 24 99/57 88 Room Air 02/22/17 00:00 99 20 103/68 93 Room Air 02/21/17 23:11 100 24 133/91 100 Nebulizer 02/21/17 22:53 94 Room Air 02/21/17 22:04 98 02/21/17 22:00 94 22 138/76 97 Room Air 02/21/17 21:45 96 Room Air 02/21/17 21:45 37.1 95 22 116/63 96 Room Air General Appearance: WD/WN, no apparent distress Head: normocephalic, atraumatic Eyes: EOMI, sclerae normal Neck: supple, no adenopathy, no JVD Respiratory/Chest: chest non-tender, lungs clear Cardiovascular: regular rate, rhythm, no gallop Abdomen/GI: normal bowel sounds, non tender, soft, + distended, + pertinent finding (obese, no guarding ) Back: normal inspection, no CVA tenderness Extremities/Musculoskelatal: no calf tenderness, no pedal edema Neurologic/Psych: alert, oriented x 3, + pertinent finding (grossly nonfocal) Skin: warm/dry Lymphatic: no adenopathy Laboratory Results Last 24 Hours Test 02/21/17 21:45 02/22/17 01:01 02/22/17 01:41 02/22/17 05:31 White Blood Count 1.87 K/uL 0.86 K/uL Red Blood Count 3.60 M/uL 3.44 M/uL Hemoglobin 13.1 g/dL 12.5 g/dL Hematocrit 36.1 % 34.7 % Mean Corpuscular Volume 100.3 fL 100.9 fL Mean Corpuscular Hemoglobin 36.4 pg 36.3 pg Mean Corpuscular Hemoglobin Concent 36.3 g/dl 36.0 g/dl Platelet Count 49 K/uL 37 K/uL Mean Platelet Volume 11.6 fL 11.1 fL RDW Standard Deviation 46.8 fL 47.6 fL RDW Coefficient of Variation 12.8 % 12.9 % Neutrophils % (Manual) 49.5 % Lymphocytes % (Manual) 20.4 % Monocytes % (Manual) 26.5 % Eosinophils % (Manual) 1.8 % Basophils % (Manual) 1.8 % Neutrophils # (Manual) 0.93 K/uL Total Absolute Neutrophils 0.93 K/uL Lymphocytes # (Manual) 0.38 K/uL Total Absolute Lymphocytes 0.38 K/uL Monocytes # (Manual) 0.50 K/uL Eosinophils # (Manual) 0.03 K/uL Basophils # (Manual) 0.03 K/uL Peripheral Blood Smear Path Consult Sodium Level 132 mmol/L 129 mmol/L Potassium Level 3.7 mmol/L 4.0 mmol/L Chloride Level 99 mmol/L 100 mmol/L Carbon Dioxide Level 23 mmol/L 21 mmol/L Anion Gap 10.0 mmol/L 8.0 mmol/L Blood Urea Nitrogen 14 mg/dl 15 mg/dl Creatinine 1.22 mg/dl 1.42 mg/dl Est Creatinine Clear Calc Drug Dose 71.7 ml/min 61.0 ml/min Estimated GFR () 75.8 63.1 Estimated GFR (Non- 65.4 54.4 BUN/Creatinine Ratio 11.4 10.3 Random Glucose 81 mg/dl 210 mg/dl Calcium Level 8.7 mg/dl 8.3 mg/dl Magnesium Level 1.7 mg/dl 2.3 mg/dl Total Bilirubin 1.4 mg/dl 1.4 mg/dl Direct Bilirubin 0.4 mg/dl 0.5 mg/dl Aspartate Amino Transf (AST/SGOT) 61 U/L 61 U/L Alanine Aminotransferase (ALT/SGPT) 38 U/L 37 U/L Alkaline Phosphatase 57 U/L 57 U/L Total Creatine Kinase 167 U/L Creatine Kinase MB 2.1 ng/ml Creatine Kinase MB Ratio 1.3 Troponin I < 0.015 ng/ml < 0.015 ng/ml Total Protein 6.5 gm/dl 6.5 gm/dl Albumin 3.0 gm/dl 2.9 gm/dl Lipase 166 U/L Thyroid Stimulating Hormone (TSH) 0.668 uIu/ml Influenza Type A Antigen POS for Influ A Influenza Type B Antigen Neg for Influ B Activated Partial Thromboplast Time 26.7 SECONDS Partial Thromboplastin Ratio 1.0 Venous Blood pH 7.43 Venous Blood Partial Pressure CO2 36 mmHg Venous Blood Partial Pressure O2 44 mmHg Venous Blood HCO3 23 mmol/L Venous Blood Oxygen Saturation 78.8 % Venous Blood Base Excess -0.6 mEq/L Ammonia 53.0 umol/L Ethyl Alcohol mg/dL < 3.0 mg/dl Neutrophils (%) (Auto) 72.0 % Lymphocytes (%) (Auto) 16.3 % Monocytes (%) (Auto) 9.3 % Eosinophils (%) (Auto) 1.2 % Basophils (%) (Auto) 1.2 % Neutrophils # (Auto) 0.62 K/uL Lymphocytes # (Auto) 0.14 K/uL Monocytes # (Auto) 0.08 K/uL Eosinophils # (Auto) 0.01 K/uL Basophils # (Auto) 0.01 K/uL Immature Granulocyte % (Auto) 0.0 % Immature Granulocyte # (Auto) 0.00 K/uL Test 02/22/17 05:36 02/22/17 12:23 02/22/17 16:05 02/22/17 17:42 Lactic Acid Level 3.4 mmol/L 6.0 mmol/L 4.7 mmol/L Sodium Level 129 mmol/L Potassium Level 4.0 mmol/L Chloride Level 100 mmol/L Carbon Dioxide Level 15 mmol/L Anion Gap 15.0 mmol/L Blood Urea Nitrogen 15 mg/dl Creatinine 1.32 mg/dl Est Creatinine Clear Calc Drug Dose 65.6 ml/min Estimated GFR () 68.9 Estimated GFR (Non- 59.5 BUN/Creatinine Ratio 11.5 Random Glucose 307 mg/dl Calcium Level 8.2 mg/dl Ammonia 78.7 umol/L Beta-Hydroxybutyric Acid 0.94 mg/dL Bedside Glucose 283 mg/dl Procalcitonin 0.19 ng/ml Test 02/22/17 20:01 02/22/17 20:03 02/22/17 20:08 02/22/17 20:09 Transferrin % Saturation % % Assessment & Plan 57 year old male with history of alcoholic liver cirrhosis with portal hypertension and mild splenomegaly and chronic thrombocytopenia admitted with cough and shortness of breath, left sided abdominal pain, Influenza A positive, with pancytopenia Acute on chronic thrombocytopenia, leukopenia likely due to the acute infection - patient admitted with Influenza. Paitent has chronic thrombocytopenia from cirrhosis/splenomegaly Macroytosis may be from liver disease. Check B12 folate immature platelet fraction, retic count, flow cytometry check quantitative immunoglobulins f/u blood cultures chekc fibrinogen level neutropenia precautions monitor cbc w/ diff thank you for consult
[2017-02-22] MEDS: GUAIFENESIN 600 MG TABCR PO SCH (22:31)
[2017-02-22] MEDS: OSELTAMIVIR PHOSPHATE 75 MG CAP PO SCH (22:31)
[2017-02-23] VITALS (10 sets, daily range): BP systolic 100–144; BP diastolic 70–90; PULSE 71–109; TEMP 36.5–37.1; O2SAT 95–99; Ht 167.6 cm; Wt 92.0 kg
[2017-02-23] MEDS: IPRATROPIUM BROMIDE NEB SOLN 0.02% 2.5 ML VIAL INH SCH ×4 (01:56→19:21)
[2017-02-23] MEDS: LEVALBUTEROL 1.25MG/0.5ML NEB INH SCH ×4 (01:56→19:21)
[2017-02-23] MEDS: BENZONATATE 100MG CAP PO PRN (03:35)
[2017-02-23] MEDS: LORAZEPAM 2 MG/ML 1 ML VIAL IV PRN (03:35)
[2017-02-23 08:28] LABS: HEMATOCRIT 34.1 % (42-52); HEMOGLOBIN 12.1 g/dL (14.0-18.0); MEAN CELL VOLUME 101.2 fL (80-100); MEAN CORPUSCULAR HEMOGLOBIN 35.9 pg (25-34); MEAN CORPUSCULAR HGB CONC 35.5 g/dl (32-36); RED CELL DISTRIBUTION WIDTH SD 47.5 fL (36.4-46.3)
[2017-02-23 08:37] LABS: MEAN PLATELET VOLUME 11.3 fL (7.4-10.4); PLATELET COUNT 41 K/uL (130-400)
[2017-02-23 09:00] LABS: IG# 0.01 K/uL (0.00-0.02); LYMPH % 6.5 %; LYMPH ABS # 0.35 K/uL (1.2-3.4); MONO % 8.5 %; MONO ABS # 0.46 K/uL (0.11-0.59); NEUT % 84.8 %; NEUT ABS # 4.58 K/uL (1.4-6.5)
[2017-02-23] MEDS: NICOTINE 21 MG/24 HR TDSY TD SCH ×2 (09:00→11:40)
[2017-02-23] MEDS: SPIRONOLACTONE 100 MG TAB PO SCH (09:28)
[2017-02-23] MEDS: LACTULOSE SYRUP 20 GM/30 ML UDC PO SCH ×4 (09:28→21:00)
[2017-02-23] MEDS: GUAIFENESIN 600 MG TABCR PO SCH ×2 (09:29→21:19)
[2017-02-23] MEDS: PANTOprazole SOD 40 MG TAB PO SCH (09:29)
[2017-02-23] MEDS: OSELTAMIVIR PHOSPHATE 75 MG CAP PO SCH ×2 (09:30→21:21)
[2017-02-23] MEDS: THIAMINE HCL 100 MG TAB PO SCH (09:30)
[2017-02-23] MEDS: RIFAXIMIN TAB 550 MG TAB PO SCH ×2 (09:30→21:20)
[2017-02-23] MEDS: CYANOCOBALAMIN 100 MCG TAB (VIT B-12) PO SCH (09:30)
--- NOTE | 2017-02-23 15:00 | Progress Note ---
Medicine Progress Note Date & Time of Visit: Feb 23, 2017 at 14:49. Subjective Pt was seen and examined Lying in bed with no distress Pt said that he feels slightly better He said that his cough seems to improve Denies any chest pain, palpitation, dizziness Objective Last 8 Hrs Date Time Temp Pulse Resp B/P (MAP) Pulse Ox O2 Delivery O2 Flow Rate FiO2 02/23/17 14:20 71 18 97 Nasal Cannula 2.0 02/23/17 12:00 Nasal Cannula 02/23/17 11:49 36.7 101 24 131/78 (95) 95 02/23/17 08:00 Nasal Cannula 02/23/17 07:48 36.7 74 18 100/71 (81) 99 3.0 02/23/17 07:31 77 18 97 Nasal Cannula 2.0 Physical Exam: General- No acute distress Head- atraumatic Eyes- PERRL, EOMI ENT- oropharynx clear Neck- supple, no JVD Lungs- + mild wheezing Heart- +tachycardia Abdomen- normal bowel sounds, soft Extremities- no calf tenderness Neuro- alert, oriented x 3; PERRL, EOMI Skin- warm & dry Laboratory Results: Last 24 Hours Test 02/22/17 16:05 02/22/17 17:42 02/22/17 20:03 02/22/17 20:18 Bedside Glucose 283 mg/dl Lactic Acid Level 4.7 mmol/L Procalcitonin 0.19 ng/ml Transferrin % Saturation % 19 % Immature Platelet Fraction 6.9 % Absolute Reticulocyte Count 0.05 10^6/uL Percent Reticulocyte Count 1.6 % Iron Level 52 mcg/dl Total Iron Binding Capacity 246 mcg/dl Transferrin 196 mg/dl Vitamin B12 Level 1398 pg/mL Folate 15.18 ng/mL Immunoglobulin G 1190.0 mg/dL Immunoglobulin A 287.0 mg/dL Immunoglobulin M 151.0 mg/dL Test 02/23/17 07:34 02/23/17 11:26 White Blood Count 5.40 K/uL Red Blood Count 3.37 M/uL Hemoglobin 12.1 g/dL Hematocrit 34.1 % Mean Corpuscular Volume 101.2 fL Mean Corpuscular Hemoglobin 35.9 pg Mean Corpuscular Hemoglobin Concent 35.5 g/dl Platelet Count 41 K/uL Mean Platelet Volume 11.3 fL Neutrophils (%) (Auto) 84.8 % Lymphocytes (%) (Auto) 6.5 % Monocytes (%) (Auto) 8.5 % Eosinophils (%) (Auto) 0.0 % Basophils (%) (Auto) 0.0 % Neutrophils # (Auto) 4.58 K/uL Lymphocytes # (Auto) 0.35 K/uL Monocytes # (Auto) 0.46 K/uL Eosinophils # (Auto) 0.00 K/uL Basophils # (Auto) 0.00 K/uL RDW Standard Deviation 47.5 fL RDW Coefficient of Variation 13.0 % Immature Granulocyte % (Auto) 0.2 % Immature Granulocyte # (Auto) 0.01 K/uL Fibrinogen 275 mg/dl Bedside Glucose 168 mg/dl Assessment & Plan Hypoxemic respiratory failure Influenza A CXR showed Mild nonspecific interstitial thickening. No evidence of focal pulmonary consolidation. CTA chest showed NO PE Continue Tamiflu and prednisone Continue guaifenesin for the cough Elevated lactic acid, will monitor Blood cx no growth Procalcitonin WNL Elevated Lactic acid Possible related to hypoxia vs infection WBC back to normal lactic acid trend down received cefepime in the ER Blood cx no growth Sinus Tachycardia related to acute illness Starting on low dose lopresso Improved Elevated glucose Possible related to prednisone/acute illness Will check Hba1c in am Consider to start on sliding scale Continue monitor BS Left-sided abdominal pain Secondary to cough CT abd/pelvis showed No acute process in the abdomen or pelvis Improved History of alcoholic cirrhosis Resume spironolactone/Lasix Continue rifaximin and lactulose Stable Tobacco abuse Recently quit On nicotine patch Leukopenia/Thrombocytopenia secondary to acute illness/Liver Cirrhosis Plt slightly improved to 41 WBC WNL Monitor CBC Will monitor for sign of bleeding Hematology con board Chronic anemia Hbg 12.5 stable Chronic hyponatremia secondary to Liver cirrhosis Received IVF Monitor BMP ILIA on CKD Creatine on admission 1.4 Creatine today 1.3 Lasix and spironolactone resumed D/C IVF DVT px on SCDs due to low platelet CODE STATUS FULL CODE Current Inpatient Medications: Current Inpatient Medications Medications (Trade) Dose Ordered Sig/Kiya Route Start Time Stop Time Status Last Admin Dose Admin Ioversol (Optiray 320) 100 ml UD PRN IV 02/22/17 01:30 02/26/17 01:29 Acetaminophen (Tylenol Tab) 325 mg Q6H PRN PO 02/22/17 01:30 03/24/17 01:29 Prochlorperazine Edisylate 5 mg/ Syringe 5 ml @ 5 mls/min Q6H PRN IV 02/22/17 01:30 03/24/17 01:29 Tramadol HCl (Ultram Tab) 25 mg Q6H PRN PO 02/22/17 01:30 03/24/17 01:29 02/22/17 19:26 25 MG Lorazepam (Ativan Inj) 0.5 mg Q4H PRN IV 02/22/17 01:30 03/24/17 01:29 02/23/17 03:35 0.5 MG Morphine Sulfate (MoRPHine SULFATE INJ) 4 mg Q6H PRN IV 02/22/17 01:30 03/08/17 01:29 Guaifenesin (Mucinex Contr Rel Tab) 600 mg Q12 PO 02/22/17 21:00 03/24/17 20:59 02/23/17 09:29 600 MG Benzonatate (Tessalon Perles Cap) 100 mg TID PRN PO 02/22/17 01:30 03/24/17 01:29 02/23/17 03:35 100 MG Cyanocobalamin (Vitamin B-12 Tab) 100 mcg QAM PO 02/22/17 09:00 03/24/17 08:59 02/23/17 09:30 100 MCG Folic Acid (Folvite Tab) 1 mg QAM PO 02/22/17 09:00 03/24/17 08:59 02/23/17 09:29 1 MG Lactulose (Chronulac Syrup) 20 gm QID PO 02/22/17 09:00 03/24/17 08:59 02/23/17 13:00 20 GM Nicotine (Nicoderm Cq 21MG Patch) 1 patch DAILY TD 02/22/17 09:00 03/24/17 08:59 02/23/17 11:40 1 PATCH Rifaximin (Xifaxan Tab) 550 mg BID PO 02/22/17 09:00 03/24/17 08:59 02/23/17 09:30 550 MG Thiamine HCl (Vitamin B-1 Tab) 100 mg QAM PO 02/22/17 09:00 03/24/17 08:59 02/23/17 09:30 100 MG Pantoprazole Sodium (Protonix Tab) 40 mg QAM PO 02/22/17 09:00 03/24/17 08:59 02/23/17 09:29 40 MG Miscellaneous (Iv Fluids Completed) 1 ea PRN PRN N/A 02/22/17 01:45 02/22/18 01:44 Ipratropium [place] (Atrovent 0.02% 0.5MG/2.5ML Neb) 0.5 mg Q6R INH 02/22/17 03:00 03/24/17 02:59 02/23/17 14:20 0.5 MG Levalbuterol (Xopenex 1.25MG/ 0.5ML Neb) 1.25 mg Q6R INH 02/22/17 03:00 03/24/17 02:59 02/23/17 14:20 1.25 MG Ipratropium [place] (Atrovent 0.02% 0.5MG/2.5ML Neb) 0.5 mg Q4H PRN INH 02/22/17 02:00 03/24/17 01:59 Levalbuterol (Xopenex 1.25MG/ 0.5ML Neb) 1.25 mg Q4H PRN INH 02/22/17 02:00 03/24/17 01:59 Miscellaneous (Remove Nicoderm Patch) 1 ea QAM N/A 02/23/17 09:00 03/25/17 08:59 02/23/17 09:28 1 EA Oseltamivir Phosphate (Tamiflu Cap) 75 mg BID PO 02/22/17 21:00 02/27/17 20:59 02/23/17 09:30 75 MG Menthol (Nice Wilber) 1 wilber PRN PRN PO 02/22/17 05:00 03/24/17 04:59 Prednisone (PredniSONE TAB) 20 mg DAILY PO 02/23/17 09:00 02/27/17 08:59 02/23/17 09:29 20 MG Meclizine HCl (Antivert Tab) 12.5 mg Q6 PRN PO 02/22/17 12:15 03/24/17 12:14 Metoprolol Tartrate (Lopressor Iv) 2.5 mg Q6 PRN IV 02/22/17 18:15 03/24/17 18:14 02/22/17 18:23 2.5 MG Spironolactone (Aldactone Tab) 200 mg QAM PO 02/23/17 09:00 03/25/17 08:59 02/23/17 09:28 200 MG Furosemide (Lasix Tab) 40 mg BID17 PO 02/23/17 17:00 03/25/17 16:59
[2017-02-23] MEDS: FUROSEMIDE 40 MG TAB PO SCH (17:55)
[2017-02-23] MEDS: TRAMADOL HCL 50 MG TAB PO PRN (17:56)
[2017-02-24] VITALS (10 sets, daily range): BP systolic 96–149; BP diastolic 68–100; PULSE 91–118; TEMP 36.5–37; O2SAT 94–99
[2017-02-24] MEDS: IPRATROPIUM BROMIDE NEB SOLN 0.02% 2.5 ML VIAL INH PRN (00:13)
[2017-02-24] MEDS: LEVALBUTEROL 1.25MG/0.5ML NEB INH PRN (00:13)
[2017-02-24] MEDS: IPRATROPIUM BROMIDE NEB SOLN 0.02% 2.5 ML VIAL INH SCH ×4 (02:11→19:10)
[2017-02-24] MEDS: LEVALBUTEROL 1.25MG/0.5ML NEB INH SCH ×4 (02:11→19:10)
[2017-02-24 06:55] LABS: HEMATOCRIT 32.8 % (42-52); HEMOGLOBIN 11.5 g/dL (14.0-18.0); MEAN CELL VOLUME 102.2 fL (80-100); MEAN CORPUSCULAR HEMOGLOBIN 35.8 pg (25-34); MEAN CORPUSCULAR HGB CONC 35.1 g/dl (32-36); RED CELL DISTRIBUTION WIDTH CV 13.2 % (11.5-14.5); RED CELL DISTRIBUTION WIDTH SD 49.3 fL (36.4-46.3); WHITE BLOOD COUNT 4.88 K/uL (4.8-10.8)
[2017-02-24 07:00] LABS: BASO % 0.2 %; BASO ABS # 0.01 K/uL (0-0.2); EOS % 0.2 %; EOS ABS # 0.01 K/uL (0-0.5); IG# 0.01 K/uL (0.00-0.02); LYMPH % 11.1 %; LYMPH ABS # 0.54 K/uL (1.2-3.4); MEAN PLATELET VOLUME 11.3 fL (7.4-10.4); MONO % 11.9 %; MONO ABS # 0.58 K/uL (0.11-0.59); NEUT % 76.4 %; NEUT ABS # 3.73 K/uL (1.4-6.5); PLATELET COUNT 44 K/uL (130-400)
[2017-02-24 07:34] LABS: CALCIUM 8.3 mg/dl (8.5-10.1); CREATININE 0.76 mg/dl (0.60-1.40); POTASSIUM 4.5 mmol/L (3.5-5.1)
[2017-02-24 08:31] LABS: HEMOGLOBIN A1C 5.3 % (4.5-5.6)
[2017-02-24] MEDS: SPIRONOLACTONE 100 MG TAB PO SCH ×3 (08:58→21:16)
[2017-02-24] MEDS: LACTULOSE SYRUP 20 GM/30 ML UDC PO SCH ×4 (08:59→19:53)
[2017-02-24] MEDS: NICOTINE 21 MG/24 HR TDSY TD SCH (09:00)
[2017-02-24] MEDS: GUAIFENESIN 600 MG TABCR PO SCH ×2 (09:00→19:55)
[2017-02-24] MEDS: OSELTAMIVIR PHOSPHATE 75 MG CAP PO SCH ×2 (09:01→19:55)
[2017-02-24] MEDS: PANTOprazole SOD 40 MG TAB PO SCH (09:01)
[2017-02-24] MEDS: CYANOCOBALAMIN 100 MCG TAB (VIT B-12) PO SCH (09:02)
[2017-02-24] MEDS: RIFAXIMIN TAB 550 MG TAB PO SCH ×2 (09:02→19:56)
[2017-02-24] MEDS: THIAMINE HCL 100 MG TAB PO SCH (09:02)
[2017-02-24] MEDS: TRAMADOL HCL 50 MG TAB PO PRN ×2 (09:09→16:13)
[2017-02-24] MEDS: FUROSEMIDE 40 MG TAB PO SCH ×2 (09:42→16:46)
--- NOTE | 2017-02-24 19:32 | Progress Note ---
Medicine Progress Note Date & Time of Visit: Feb 24, 2017 at 10:25. Subjective Pt was seen and examined Lying in bed with no distress Pt said that his breathing feels a little better he said that he feels weak denies any chest pain, palpitation, dizziness Objective Last 8 Hrs Date Time Temp Pulse Resp B/P (MAP) Pulse Ox O2 Delivery O2 Flow Rate FiO2 02/24/17 16:00 Nasal Cannula 02/24/17 15:41 91 16 95 Nasal Cannula 2.0 02/24/17 15:30 36.5 94 20 123/74 (90) 97 Nasal Cannula 1.0 02/24/17 12:00 Nasal Cannula 02/24/17 11:59 36.5 101 27 96/68 (77) 97 Nasal Cannula 2.0 Physical Exam: General- No acute distress Head- atraumatic Eyes- PERRL, EOMI ENT- oropharynx clear Neck- supple, no JVD Lungs- decrease BS Heart- +tachycardia Abdomen- normal bowel sounds, soft Extremities- no calf tenderness Neuro- alert, oriented x 3; PERRL, EOMI Skin- warm & dry Laboratory Results: Last 24 Hours Test 02/23/17 20:51 02/24/17 06:30 02/24/17 07:11 02/24/17 11:34 Bedside Glucose 143 mg/dl 124 mg/dl 100 mg/dl White Blood Count 4.88 K/uL Red Blood Count 3.21 M/uL Hemoglobin 11.5 g/dL Hematocrit 32.8 % Mean Corpuscular Volume 102.2 fL Mean Corpuscular Hemoglobin 35.8 pg Mean Corpuscular Hemoglobin Concent 35.1 g/dl Platelet Count 44 K/uL Mean Platelet Volume 11.3 fL Neutrophils (%) (Auto) 76.4 % Lymphocytes (%) (Auto) 11.1 % Monocytes (%) (Auto) 11.9 % Eosinophils (%) (Auto) 0.2 % Basophils (%) (Auto) 0.2 % Neutrophils # (Auto) 3.73 K/uL Lymphocytes # (Auto) 0.54 K/uL Monocytes # (Auto) 0.58 K/uL Eosinophils # (Auto) 0.01 K/uL Basophils # (Auto) 0.01 K/uL RDW Standard Deviation 49.3 fL RDW Coefficient of Variation 13.2 % Immature Granulocyte % (Auto) 0.2 % Immature Granulocyte # (Auto) 0.01 K/uL Sodium Level 133 mmol/L Potassium Level 4.5 mmol/L Chloride Level 102 mmol/L Carbon Dioxide Level 24 mmol/L Anion Gap 7.0 mmol/L Blood Urea Nitrogen 17 mg/dl Creatinine 0.76 mg/dl Est Creatinine Clear Calc Drug Dose 113.8 ml/min Estimated GFR () 117.4 Estimated GFR (Non- 101.3 BUN/Creatinine Ratio 22.9 Random Glucose 103 mg/dl Estimated Average Glucose 105 mg/dl Hemoglobin A1c 5.3 % Calcium Level 8.3 mg/dl Test 02/24/17 16:21 Bedside Glucose 139 mg/dl Assessment & Plan Hypoxemic respiratory failure Influenza A CXR showed Mild nonspecific interstitial thickening. No evidence of focal pulmonary consolidation. CTA chest showed NO PE Continue Tamiflu and prednisone Continue guaifenesin for the cough Elevated lactic acid, will monitor Blood cx no growth Procalcitonin WNL Clinically improved Elevated Lactic acid Possible related to hypoxia vs infection WBC back to normal lactic acid trend down received cefepime in the ER Blood cx no growth Sinus Tachycardia related to acute illness Starting on low dose Lopressor Improved Will transfer to medically Elevated glucose Possible related to prednisone/acute illness Hba1c 5.3 Stable Continue monitor BS Left-sided abdominal pain Secondary to cough CT abd/pelvis showed No acute process in the abdomen or pelvis Improved History of alcoholic cirrhosis Resume spironolactone/Lasix Continue rifaximin and lactulose Stable Tobacco abuse Recently quit On nicotine patch Leukopenia/Thrombocytopenia secondary to acute illness/Liver Cirrhosis Plt slightly improved to 44 WBC WNL Monitor CBC Will monitor for sign of bleeding Hematology con board Chronic anemia Hbg 11.5 stable Chronic hyponatremia secondary to Liver cirrhosis Received IVF Monitor BMP ILIA on CKD Creatine on admission 1.4 Creatine today 0.7 Lasix and spironolactone resumed D/C IVF DVT px on SCDs due to low platelet CODE STATUS FULL CODE Current Inpatient Medications: Current Inpatient Medications Medications (Trade) Dose Ordered Sig/Kiya Route Start Time Stop Time Status Last Admin Dose Admin Ioversol (Optiray 320) 100 ml UD PRN IV 02/22/17 01:30 02/26/17 01:29 Acetaminophen (Tylenol Tab) 325 mg Q6H PRN PO 02/22/17 01:30 03/24/17 01:29 Prochlorperazine Edisylate 5 mg/ Syringe 5 ml @ 5 mls/min Q6H PRN IV 02/22/17 01:30 03/24/17 01:29 Tramadol HCl (Ultram Tab) 25 mg Q6H PRN PO 02/22/17 01:30 03/24/17 01:29 02/24/17 16:13 25 MG Lorazepam (Ativan Inj) 0.5 mg Q4H PRN IV 02/22/17 01:30 03/24/17 01:29 02/23/17 03:35 0.5 MG Guaifenesin (Mucinex Contr Rel Tab) 600 mg Q12 PO 02/22/17 21:00 03/24/17 20:59 02/24/17 09:00 600 MG Benzonatate (Tessalon Perles Cap) 100 mg TID PRN PO 02/22/17 01:30 03/24/17 01:29 02/23/17 03:35 100 MG Cyanocobalamin (Vitamin B-12 Tab) 100 mcg QAM PO 02/22/17 09:00 03/24/17 08:59 02/24/17 09:02 100 MCG Folic Acid (Folvite Tab) 1 mg QAM PO 02/22/17 09:00 03/24/17 08:59 02/24/17 08:59 1 MG Lactulose (Chronulac Syrup) 20 gm QID PO 02/22/17 09:00 03/24/17 08:59 02/24/17 16:45 20 GM Nicotine (Nicoderm Cq 21MG Patch) 1 patch DAILY TD 02/22/17 09:00 03/24/17 08:59 02/23/17 11:40 1 PATCH Rifaximin (Xifaxan Tab) 550 mg BID PO 02/22/17 09:00 03/24/17 08:59 02/24/17 09:02 550 MG Thiamine HCl (Vitamin B-1 Tab) 100 mg QAM PO 02/22/17 09:00 03/24/17 08:59 02/24/17 09:02 100 MG Pantoprazole Sodium (Protonix Tab) 40 mg QAM PO 02/22/17 09:00 03/24/17 08:59 02/24/17 09:01 40 MG Miscellaneous (Iv Fluids Completed) 1 ea PRN PRN N/A 02/22/17 01:45 02/22/18 01:44 Ipratropium [place] (Atrovent 0.02% 0.5MG/2.5ML Neb) 0.5 mg Q6R INH 02/22/17 03:00 03/24/17 02:59 02/24/17 19:10 0.5 MG Levalbuterol (Xopenex 1.25MG/ 0.5ML Neb) 1.25 mg Q6R INH 02/22/17 03:00 03/24/17 02:59 02/24/17 19:10 1.25 MG Ipratropium [place] (Atrovent 0.02% 0.5MG/2.5ML Neb) 0.5 mg Q4H PRN INH 02/22/17 02:00 03/24/17 01:59 02/24/17 00:13 0.5 MG Levalbuterol (Xopenex 1.25MG/ 0.5ML Neb) 1.25 mg Q4H PRN INH 02/22/17 02:00 03/24/17 01:59 02/24/17 00:13 1.25 MG Miscellaneous (Remove Nicoderm Patch) 1 ea QAM N/A 02/23/17 09:00 03/25/17 08:59 02/24/17 08:58 1 EA Oseltamivir Phosphate (Tamiflu Cap) 75 mg BID PO 02/22/17 21:00 02/27/17 20:59 02/24/17 09:01 75 MG Menthol (Nice Wilber) 1 wilber PRN PRN PO 02/22/17 05:00 03/24/17 04:59 Prednisone (PredniSONE TAB) 20 mg DAILY PO 02/23/17 09:00 02/27/17 08:59 02/24/17 09:00 20 MG Meclizine HCl (Antivert Tab) 12.5 mg Q6 PRN PO 02/22/17 12:15 03/24/17 12:14 Metoprolol Tartrate (Lopressor Iv) 2.5 mg Q6 PRN IV 02/22/17 18:15 03/24/17 18:14 02/22/17 18:23 2.5 MG Spironolactone (Aldactone Tab) 200 mg QAM PO 02/23/17 09:00 03/25/17 08:59 02/24/17 08:58 200 MG Furosemide (Lasix Tab) 40 mg BID17 PO 02/23/17 17:00 03/25/17 16:59 02/24/17 16:46 40 MG Morphine Sulfate (MoRPHine SULFATE INJ) 2 mg Q6H PRN IV 02/23/17 19:15 03/08/17 01:29
[2017-02-24] MEDS: MoRPHine SULFATE 2 MG/ML CARP IV PRN (21:15)
[2017-02-25] VITALS (9 sets, daily range): BP systolic 115–145; BP diastolic 68–81; PULSE 89–108; TEMP 36.5–36.7; O2SAT 95–98
[2017-02-25] MEDS: IPRATROPIUM BROMIDE NEB SOLN 0.02% 2.5 ML VIAL INH SCH ×4 (02:10→19:33)
[2017-02-25] MEDS: LEVALBUTEROL 1.25MG/0.5ML NEB INH SCH ×4 (02:10→19:33)
[2017-02-25 07:20] LABS: HEMATOCRIT 33.5 % (42-52); HEMOGLOBIN 11.8 g/dL (14.0-18.0); MEAN CELL VOLUME 102.8 fL (80-100); MEAN CORPUSCULAR HEMOGLOBIN 36.2 pg (25-34); MEAN CORPUSCULAR HGB CONC 35.2 g/dl (32-36); RED CELL DISTRIBUTION WIDTH CV 13.3 % (11.5-14.5); RED CELL DISTRIBUTION WIDTH SD 50.2 fL (36.4-46.3); WHITE BLOOD COUNT 4.37 K/uL (4.8-10.8)
[2017-02-25 07:24] LABS: BASO % 0.2 %; BASO ABS # 0.01 K/uL (0-0.2); EOS % 1.4 %; EOS ABS # 0.06 K/uL (0-0.5); IG# 0.01 K/uL (0.00-0.02); LYMPH % 16.7 %; LYMPH ABS # 0.73 K/uL (1.2-3.4); MONO % 16.5 %; MONO ABS # 0.72 K/uL (0.11-0.59); NEUT ABS # 2.84 K/uL (1.4-6.5); PLATELET COUNT 48 K/uL (130-400)
[2017-02-25] MEDS: LACTULOSE SYRUP 20 GM/30 ML UDC PO SCH ×4 (09:00→20:08)
[2017-02-25] MEDS: CYANOCOBALAMIN 100 MCG TAB (VIT B-12) PO SCH (09:00)
[2017-02-25] MEDS: NICOTINE 21 MG/24 HR TDSY TD SCH (09:00)
[2017-02-25] MEDS: THIAMINE HCL 100 MG TAB PO SCH (09:00)
[2017-02-25] MEDS: GUAIFENESIN 600 MG TABCR PO SCH ×2 (09:01→20:10)
[2017-02-25] MEDS: OSELTAMIVIR PHOSPHATE 75 MG CAP PO SCH ×2 (09:01→20:09)
[2017-02-25] MEDS: FUROSEMIDE 40 MG TAB PO SCH ×2 (09:01→16:37)
[2017-02-25] MEDS: PANTOprazole SOD 40 MG TAB PO SCH (09:01)
[2017-02-25] MEDS: RIFAXIMIN TAB 550 MG TAB PO SCH ×2 (09:01→20:08)
[2017-02-25] MEDS: SPIRONOLACTONE 100 MG TAB PO SCH ×2 (09:02→20:09)
[2017-02-25] MEDS: MoRPHine SULFATE 2 MG/ML CARP IV PRN ×2 (10:19→22:34)
--- NOTE | 2017-02-25 17:19 | Progress Note ---
Medicine Progress Note Date & Time of Visit: Feb 25, 2017 at 13:14. Subjective Pt was seen and examined Sitting in bed with no distress Pt said that he is having tenderness in RUQ Tolerated diet well Breathing improved Denies any chest pain, palpitation, dizziness Objective Last 8 Hrs Date Time Temp Pulse Resp B/P (MAP) Pulse Ox O2 Delivery O2 Flow Rate FiO2 02/25/17 16:00 Nasal Cannula 2.0 02/25/17 15:52 36.6 103 20 145/80 (101) 97 Nasal Cannula 1.0 02/25/17 14:09 96 18 98 Nasal Cannula 2.0 Physical Exam: General- No acute distress Head- atraumatic Eyes- PERRL, EOMI ENT- oropharynx clear Neck- supple, no JVD Lungs- decrease BS Heart- +tachycardia Abdomen- normal bowel sounds, soft Extremities- no calf tenderness Neuro- alert, oriented x 3; PERRL, EOMI Skin- warm & dry Laboratory Results: Last 24 Hours Test 02/24/17 19:48 02/25/17 06:42 Bedside Glucose 152 mg/dl White Blood Count 4.37 K/uL Red Blood Count 3.26 M/uL Hemoglobin 11.8 g/dL Hematocrit 33.5 % Mean Corpuscular Volume 102.8 fL Mean Corpuscular Hemoglobin 36.2 pg Mean Corpuscular Hemoglobin Concent 35.2 g/dl Platelet Count 48 K/uL Mean Platelet Volume 11.0 fL Neutrophils (%) (Auto) 65.0 % Lymphocytes (%) (Auto) 16.7 % Monocytes (%) (Auto) 16.5 % Eosinophils (%) (Auto) 1.4 % Basophils (%) (Auto) 0.2 % Neutrophils # (Auto) 2.84 K/uL Lymphocytes # (Auto) 0.73 K/uL Monocytes # (Auto) 0.72 K/uL Eosinophils # (Auto) 0.06 K/uL Basophils # (Auto) 0.01 K/uL RDW Standard Deviation 50.2 fL RDW Coefficient of Variation 13.3 % Immature Granulocyte % (Auto) 0.2 % Immature Granulocyte # (Auto) 0.01 K/uL Assessment & Plan Hypoxemic respiratory failure Influenza A CXR showed Mild nonspecific interstitial thickening. No evidence of focal pulmonary consolidation. CTA chest showed NO PE Continue Tamiflu and prednisone Continue guaifenesin for the cough Elevated lactic acid, will monitor Blood cx no growth Procalcitonin WNL Clinically improved Elevated Lactic acid Possible related to hypoxia vs infection WBC back to normal lactic acid trend down received cefepime in the ER Blood cx no growth RUQ Abdominal pain Continue morphine for pain Will get an u/s of abd Check liver enzymes in am Sinus Tachycardia related to acute illness Starting on low dose Lopressor Stable Elevated glucose Possible related to prednisone/acute illness Hba1c 5.3 Stable Continue monitor BS Left-sided abdominal pain Secondary to cough CT abd/pelvis showed No acute process in the abdomen or pelvis resolved History of alcoholic cirrhosis Resume spironolactone/Lasix Continue rifaximin and lactulose Stable Tobacco abuse Recently quit On nicotine patch Leukopenia/Thrombocytopenia secondary to acute illness/Liver Cirrhosis Plt slightly improved to 48 WBC WNL Monitor CBC Will monitor for sign of bleeding Hematology con board Chronic anemia Hbg 11.8 stable Chronic hyponatremia secondary to Liver cirrhosis Received IVF Monitor BMP ILIA on CKD Creatine on admission 1.4 Creatine today 0.7 Lasix and spironolactone resumed D/C IVF DVT px on SCDs due to low platelet CODE STATUS FULL CODE Current Inpatient Medications: Current Inpatient Medications Medications (Trade) Dose Ordered Sig/Kiya Route Start Time Stop Time Status Last Admin Dose Admin Ioversol (Optiray 320) 100 ml UD PRN IV 02/22/17 01:30 02/26/17 01:29 Acetaminophen (Tylenol Tab) 325 mg Q6H PRN PO 02/22/17 01:30 03/24/17 01:29 Prochlorperazine Edisylate 5 mg/ Syringe 5 ml @ 5 mls/min Q6H PRN IV 02/22/17 01:30 03/24/17 01:29 Tramadol HCl (Ultram Tab) 25 mg Q6H PRN PO 02/22/17 01:30 03/24/17 01:29 02/24/17 16:13 25 MG Lorazepam (Ativan Inj) 0.5 mg Q4H PRN IV 02/22/17 01:30 03/24/17 01:29 02/23/17 03:35 0.5 MG Guaifenesin (Mucinex Contr Rel Tab) 600 mg Q12 PO 02/22/17 21:00 03/24/17 20:59 02/25/17 09:01 600 MG Benzonatate (Tessalon Perles Cap) 100 mg TID PRN PO 02/22/17 01:30 03/24/17 01:29 02/23/17 03:35 100 MG Cyanocobalamin (Vitamin B-12 Tab) 100 mcg QAM PO 02/22/17 09:00 03/24/17 08:59 02/25/17 09:00 100 MCG Folic Acid (Folvite Tab) 1 mg QAM PO 02/22/17 09:00 03/24/17 08:59 02/25/17 09:02 1 MG Lactulose (Chronulac Syrup) 20 gm QID PO 02/22/17 09:00 03/24/17 08:59 02/25/17 16:35 20 GM Nicotine (Nicoderm Cq 21MG Patch) 1 patch DAILY TD 02/22/17 09:00 03/24/17 08:59 02/23/17 11:40 1 PATCH Rifaximin (Xifaxan Tab) 550 mg BID PO 02/22/17 09:00 03/24/17 08:59 02/25/17 09:01 550 MG Thiamine HCl (Vitamin B-1 Tab) 100 mg QAM PO 02/22/17 09:00 03/24/17 08:59 02/25/17 09:00 100 MG Pantoprazole Sodium (Protonix Tab) 40 mg QAM PO 02/22/17 09:00 03/24/17 08:59 02/25/17 09:01 40 MG Miscellaneous (Iv Fluids Completed) 1 ea PRN PRN N/A 02/22/17 01:45 02/22/18 01:44 Ipratropium [place] (Atrovent 0.02% 0.5MG/2.5ML Neb) 0.5 mg Q6R INH 02/22/17 03:00 03/24/17 02:59 02/25/17 14:08 0.5 MG Levalbuterol (Xopenex 1.25MG/ 0.5ML Neb) 1.25 mg Q6R INH 02/22/17 03:00 03/24/17 02:59 02/25/17 14:08 1.25 MG Ipratropium [place] (Atrovent 0.02% 0.5MG/2.5ML Neb) 0.5 mg Q4H PRN INH 02/22/17 02:00 03/24/17 01:59 02/24/17 00:13 0.5 MG Levalbuterol (Xopenex 1.25MG/ 0.5ML Neb) 1.25 mg Q4H PRN INH 02/22/17 02:00 03/24/17 01:59 02/24/17 00:13 1.25 MG Miscellaneous (Remove Nicoderm Patch) 1 ea QAM N/A 02/23/17 09:00 03/25/17 08:59 02/25/17 09:04 1 EA Oseltamivir Phosphate (Tamiflu Cap) 75 mg BID PO 02/22/17 21:00 02/27/17 20:59 02/25/17 09:01 75 MG Menthol (Nice Wilber) 1 wilber PRN PRN PO 02/22/17 05:00 03/24/17 04:59 Prednisone (PredniSONE TAB) 20 mg DAILY PO 02/23/17 09:00 02/27/17 08:59 02/25/17 09:00 20 MG Meclizine HCl (Antivert Tab) 12.5 mg Q6 PRN PO 02/22/17 12:15 03/24/17 12:14 Metoprolol Tartrate (Lopressor Iv) 2.5 mg Q6 PRN IV 02/22/17 18:15 03/24/17 18:14 02/22/17 18:23 2.5 MG Spironolactone (Aldactone Tab) 200 mg QAM PO 02/23/17 09:00 03/25/17 08:59 02/25/17 09:02 200 MG Furosemide (Lasix Tab) 40 mg BID17 PO 02/23/17 17:00 03/25/17 16:59 02/25/17 16:37 40 MG Morphine Sulfate (MoRPHine SULFATE INJ) 2 mg Q6H PRN IV 02/23/17 19:15 03/08/17 01:29 02/25/17 10:19 2 MG Spironolactone (Aldactone Tab) 100 mg QPM PO 02/24/17 21:00 03/26/17 20:59 Valacyclovir HCl (Valtrex Tab) 1,000 mg QAM PO 02/25/17 09:00 03/27/17 08:59 02/25/17 09:00 1,000 MG
[2017-02-25 21:48] LABS: ALBUMIN 3.2 gm/dl (3.4-5.0); CREATININE 1.22 mg/dl (0.60-1.40); POTASSIUM 4.3 mmol/L (3.5-5.1)
[2017-02-25 21:51] LABS: TOTAL PROTEIN 6.9 gm/dl (6.4-8.2)
[2017-02-25] MEDS: LEVALBUTEROL 1.25MG/0.5ML NEB INH PRN (23:59)
[2017-02-25] MEDS: IPRATROPIUM BROMIDE NEB SOLN 0.02% 2.5 ML VIAL INH PRN (23:59)
[2017-02-26] VITALS (7 sets, daily range): BP systolic 90–137; BP diastolic 57–77; PULSE 86–102; TEMP 36.4–36.7; O2SAT 92–96
[2017-02-26] MEDS: IPRATROPIUM BROMIDE NEB SOLN 0.02% 2.5 ML VIAL INH SCH ×3 (02:03→20:21)
[2017-02-26] MEDS: LEVALBUTEROL 1.25MG/0.5ML NEB INH SCH ×3 (02:03→20:21)
--- NOTE | 2017-02-26 07:13 | DIAGNOSTIC IMAGING REPORT ---
ABDOMINAL ULTRASOUND, RIGHT UPPER QUADRANT HISTORY: Generalized abdominal pain.. COMPARISON: Abdomen and pelvis CT 02/22/2017. FINDINGS: Pancreas: The pancreas demonstrates a normal echotexture. Liver: Nodular contour consistent with cirrhosis. No hepatic masses. Gallbladder: No gallbladder wall thickening. No gallstones. CBD: 5 mm. Right kidney: No hydronephrosis. IMPRESSION: 1. Cirrhosis. 2. Normal gallbladder. No gallstones. Electronically signed by: Ángel Wilson M.D. 02/26/2017 7:12 AM Dictated Date/Time: 02/26/2017 7:11 AM
[2017-02-26 08:20] LABS: HEMATOCRIT 34.4 % (42-52); HEMOGLOBIN 12.3 g/dL (14.0-18.0); MEAN CELL VOLUME 102.4 fL (80-100); MEAN CORPUSCULAR HEMOGLOBIN 36.6 pg (25-34); MEAN CORPUSCULAR HGB CONC 35.8 g/dl (32-36); RED CELL DISTRIBUTION WIDTH CV 13.3 % (11.5-14.5); RED CELL DISTRIBUTION WIDTH SD 49.6 fL (36.4-46.3); WHITE BLOOD COUNT 5.22 K/uL (4.8-10.8)
[2017-02-26 08:29] LABS: MEAN PLATELET VOLUME 10.7 fL (7.4-10.4); PLATELET COUNT 52 K/uL (130-400)
[2017-02-26] MEDS: NICOTINE 21 MG/24 HR TDSY TD SCH (08:37)
[2017-02-26] MEDS: OSELTAMIVIR PHOSPHATE 75 MG CAP PO SCH ×2 (08:38→21:10)
[2017-02-26] MEDS: FUROSEMIDE 40 MG TAB PO SCH ×2 (08:38→17:12)
[2017-02-26] MEDS: BENZONATATE 100MG CAP PO PRN (08:39)
[2017-02-26] MEDS: CYANOCOBALAMIN 100 MCG TAB (VIT B-12) PO SCH (08:39)
[2017-02-26] MEDS: PANTOprazole SOD 40 MG TAB PO SCH (08:40)
[2017-02-26] MEDS: RIFAXIMIN TAB 550 MG TAB PO SCH ×2 (08:40→21:09)
[2017-02-26] MEDS: THIAMINE HCL 100 MG TAB PO SCH (08:41)
[2017-02-26] MEDS: GUAIFENESIN 600 MG TABCR PO SCH ×2 (08:41→21:10)
[2017-02-26] MEDS: SPIRONOLACTONE 100 MG TAB PO SCH ×2 (08:41→21:08)
[2017-02-26] MEDS: LACTULOSE SYRUP 20 GM/30 ML UDC PO SCH ×4 (08:42→21:00)
[2017-02-26 08:48] LABS: ALBUMIN 2.9 gm/dl (3.4-5.0); CALCIUM 8.7 mg/dl (8.5-10.1); CREATININE 1.14 mg/dl (0.60-1.40); POTASSIUM 3.8 mmol/L (3.5-5.1)
[2017-02-26 08:49] LABS: BASO % 0.2 %; BASO ABS # 0.01 K/uL (0-0.2); EOS % 2.5 %; EOS ABS # 0.13 K/uL (0-0.5); IG# 0.01 K/uL (0.00-0.02); LYMPH % 20.9 %; LYMPH ABS # 1.09 K/uL (1.2-3.4); MONO % 16.1 %; MONO ABS # 0.84 K/uL (0.11-0.59); NEUT % 60.1 %; NEUT ABS # 3.14 K/uL (1.4-6.5)
[2017-02-26 08:50] LABS: TOTAL PROTEIN 6.3 gm/dl (6.4-8.2)
[2017-02-26] MEDS ORDERED: LEVALBUTEROL 1.25MG/0.5ML NEB INH SCH (09:00)
[2017-02-26] MEDS ORDERED: IPRATROPIUM BROMIDE NEB SOLN 0.02% 2.5 ML VIAL INH SCH (09:00)
[2017-02-26] MEDS ORDERED: NURSING VERBAL MED ORDER ONE ×2 (14:00→14:30)
[2017-02-26] MEDS ORDERED: POLYETHYLENE (MIRALAX) 17 GM PACK PO ONE (14:00)
[2017-02-26] MEDS ORDERED: BISACODYL 10 MG SUPP PR ONE (15:00)
--- NOTE | 2017-02-26 19:25 | Progress Note ---
Medicine Progress Note Date & Time of Visit: Feb 26, 2017 at 19:18. Subjective Pt was seen and examined Sitting in bed with no distress eating Pt said that he continue to have pain between his right rib cage and his RUQ Pt is very anxious because he did not have any BM yesterday His breathing his better Denies any chest pain, palpitation, dizziness Objective Last 8 Hrs Date Time Temp Pulse Resp B/P (MAP) Pulse Ox O2 Delivery O2 Flow Rate FiO2 02/26/17 16:10 Room Air 02/26/17 16:01 36.7 86 20 137/77 (97) 96 Physical Exam: General- No acute distress Head- atraumatic Eyes- PERRL, EOMI ENT- oropharynx clear Neck- supple, no JVD Lungs- decrease BS Heart- +tachycardia Abdomen- normal bowel sounds, soft Extremities- no calf tenderness Neuro- alert, oriented x 3; PERRL, EOMI Skin- warm & dry Laboratory Results: Last 24 Hours Test 02/25/17 21:13 02/26/17 07:41 Sodium Level 133 mmol/L 134 mmol/L Potassium Level 4.3 mmol/L 3.8 mmol/L Chloride Level 98 mmol/L 99 mmol/L Carbon Dioxide Level 26 mmol/L 26 mmol/L Anion Gap 9.0 mmol/L 9.0 mmol/L Blood Urea Nitrogen 16 mg/dl 16 mg/dl Creatinine 1.22 mg/dl 1.14 mg/dl Est Creatinine Clear Calc Drug Dose 70.9 ml/min 75.9 ml/min Estimated GFR () 75.8 82.3 Estimated GFR (Non- 65.4 71.0 BUN/Creatinine Ratio 13.4 14.3 Random Glucose 96 mg/dl 81 mg/dl Calcium Level 9.0 mg/dl 8.7 mg/dl Total Bilirubin 1.2 mg/dl 1.2 mg/dl Aspartate Amino Transf (AST/SGOT) 75 U/L 67 U/L Alanine Aminotransferase (ALT/SGPT) 48 U/L 46 U/L Alkaline Phosphatase 65 U/L 61 U/L Total Protein 6.9 gm/dl 6.3 gm/dl Albumin 3.2 gm/dl 2.9 gm/dl Globulin 3.7 gm/dl 3.4 gm/dl Albumin/Globulin Ratio 0.9 0.9 Lipase 157 U/L White Blood Count 5.22 K/uL Red Blood Count 3.36 M/uL Hemoglobin 12.3 g/dL Hematocrit 34.4 % Mean Corpuscular Volume 102.4 fL Mean Corpuscular Hemoglobin 36.6 pg Mean Corpuscular Hemoglobin Concent 35.8 g/dl Platelet Count 52 K/uL Mean Platelet Volume 10.7 fL Neutrophils (%) (Auto) 60.1 % Lymphocytes (%) (Auto) 20.9 % Monocytes (%) (Auto) 16.1 % Eosinophils (%) (Auto) 2.5 % Basophils (%) (Auto) 0.2 % Neutrophils # (Auto) 3.14 K/uL Lymphocytes # (Auto) 1.09 K/uL Monocytes # (Auto) 0.84 K/uL Eosinophils # (Auto) 0.13 K/uL Basophils # (Auto) 0.01 K/uL RDW Standard Deviation 49.6 fL RDW Coefficient of Variation 13.3 % Immature Granulocyte % (Auto) 0.2 % Immature Granulocyte # (Auto) 0.01 K/uL Assessment & Plan Hypoxemic respiratory failure Influenza A CXR showed Mild nonspecific interstitial thickening. No evidence of focal pulmonary consolidation. CTA chest showed NO PE Continue Tamiflu and prednisone Continue guaifenesin for the cough Elevated lactic acid, will monitor Blood cx no growth Procalcitonin WNL Clinically improved Stable Elevated Lactic acid Possible related to hypoxia vs infection WBC back to normal lactic acid trend down received cefepime in the ER Blood cx no growth RUQ Abdominal pain Continue pain control CT abd/pelvis showed No acute process in the abdomen or pelvis U/S RUQ showed Cirrhosis. Normal gallbladder. No gallstones. Liver enzymes stable Sinus Tachycardia related to acute illness Starting on low dose Lopressor Stable Elevated glucose Possible related to prednisone/acute illness Hba1c 5.3 Stable Continue monitor BS Left-sided abdominal pain Secondary to cough CT abd/pelvis showed No acute process in the abdomen or pelvis resolved History of alcoholic cirrhosis Resume spironolactone/Lasix Continue rifaximin and lactulose Had a large BM Stable Tobacco abuse Recently quit On nicotine patch Leukopenia/Thrombocytopenia secondary to acute illness/Liver Cirrhosis Plt slightly improved to 52 WBC WNL Monitor CBC Will monitor for sign of bleeding Hematology con board Chronic anemia Hbg 12.3 stable Chronic hyponatremia secondary to Liver cirrhosis Received IVF Monitor BMP ILIA on CKD Creatine on admission 1.4 Creatine today 1.14 Lasix and spironolactone resumed D/C IVF DVT px on SCDs due to low platelet CODE STATUS FULL CODE Current Inpatient Medications: Current Inpatient Medications Medications (Trade) Dose Ordered Sig/Kiya Route Start Time Stop Time Status Last Admin Dose Admin Acetaminophen (Tylenol Tab) 325 mg Q6H PRN PO 02/22/17 01:30 03/24/17 01:29 Prochlorperazine Edisylate 5 mg/ Syringe 5 ml @ 5 mls/min Q6H PRN IV 02/22/17 01:30 03/24/17 01:29 Tramadol HCl (Ultram Tab) 25 mg Q6H PRN PO 02/22/17 01:30 03/24/17 01:29 02/24/17 16:13 25 MG Lorazepam (Ativan Inj) 0.5 mg Q4H PRN IV 02/22/17 01:30 03/24/17 01:29 02/23/17 03:35 0.5 MG Guaifenesin (Mucinex Contr Rel Tab) 600 mg Q12 PO 02/22/17 21:00 03/24/17 20:59 02/26/17 08:41 600 MG Benzonatate (Tessalon Perles Cap) 100 mg TID PRN PO 02/22/17 01:30 03/24/17 01:29 02/26/17 08:39 100 MG Cyanocobalamin (Vitamin B-12 Tab) 100 mcg QAM PO 02/22/17 09:00 03/24/17 08:59 02/26/17 08:39 100 MCG Folic Acid (Folvite Tab) 1 mg QAM PO 02/22/17 09:00 03/24/17 08:59 02/26/17 08:39 1 MG Lactulose (Chronulac Syrup) 20 gm QID PO 02/22/17 09:00 03/24/17 08:59 02/26/17 17:12 20 GM Nicotine (Nicoderm Cq 21MG Patch) 1 patch DAILY TD 02/22/17 09:00 03/24/17 08:59 02/23/17 11:40 1 PATCH Rifaximin (Xifaxan Tab) 550 mg BID PO 02/22/17 09:00 03/24/17 08:59 02/26/17 08:40 550 MG Thiamine HCl (Vitamin B-1 Tab) 100 mg QAM PO 02/22/17 09:00 03/24/17 08:59 02/26/17 08:41 100 MG Pantoprazole Sodium (Protonix Tab) 40 mg QAM PO 02/22/17 09:00 03/24/17 08:59 02/26/17 08:40 40 MG Miscellaneous (Iv Fluids Completed) 1 ea PRN PRN N/A 02/22/17 01:45 02/22/18 01:44 Ipratropium [place] (Atrovent 0.02% 0.5MG/2.5ML Neb) 0.5 mg Q6R INH 02/22/17 03:00 03/24/17 02:59 02/26/17 07:32 0.5 MG Levalbuterol (Xopenex 1.25MG/ 0.5ML Neb) 1.25 mg Q6R INH 02/22/17 03:00 03/24/17 02:59 02/26/17 07:32 1.25 MG Ipratropium [place] (Atrovent 0.02% 0.5MG/2.5ML Neb) 0.5 mg Q4H PRN INH 02/22/17 02:00 03/24/17 01:59 02/25/17 23:59 0.5 MG Levalbuterol (Xopenex 1.25MG/ 0.5ML Neb) 1.25 mg Q4H PRN INH 02/22/17 02:00 03/24/17 01:59 02/25/17 23:59 1.25 MG Miscellaneous (Remove Nicoderm Patch) 1 ea QAM N/A 02/23/17 09:00 03/25/17 08:59 02/25/17 09:04 1 EA Oseltamivir Phosphate (Tamiflu Cap) 75 mg BID PO 02/22/17 21:00 02/27/17 20:59 02/26/17 08:38 75 MG Menthol (Nice Wilber) 1 wilber PRN PRN PO 02/22/17 05:00 03/24/17 04:59 Prednisone (PredniSONE TAB) 20 mg DAILY PO 02/23/17 09:00 02/27/17 08:59 02/26/17 08:41 20 MG Meclizine HCl (Antivert Tab) 12.5 mg Q6 PRN PO 02/22/17 12:15 03/24/17 12:14 Metoprolol Tartrate (Lopressor Iv) 2.5 mg Q6 PRN IV 02/22/17 18:15 03/24/17 18:14 02/22/17 18:23 2.5 MG Spironolactone (Aldactone Tab) 200 mg QAM PO 02/23/17 09:00 03/25/17 08:59 02/26/17 08:41 200 MG Furosemide (Lasix Tab) 40 mg BID17 PO 02/23/17 17:00 03/25/17 16:59 02/26/17 17:12 40 MG Morphine Sulfate (MoRPHine SULFATE INJ) 2 mg Q6H PRN IV 02/23/17 19:15 03/08/17 01:29 02/25/17 22:34 2 MG Spironolactone (Aldactone Tab) 100 mg QPM PO 02/24/17 21:00 03/26/17 20:59 02/25/17 20:09 100 MG Valacyclovir HCl (Valtrex Tab) 1,000 mg QAM PO 02/25/17 09:00 03/27/17 08:59 02/26/17 08:41 1,000 MG
[2017-02-26] MEDS ORDERED: SODIUM CHLORIDE 0.65% NA SOLN 45 ML (OCEAN) PRN (21:15)
[2017-02-27] VITALS (7 sets, daily range): BP systolic 101–133; BP diastolic 68–82; PULSE 80–105; TEMP 36.8–36.9; O2SAT 95–97
[2017-02-27] MEDS: LEVALBUTEROL 1.25MG/0.5ML NEB INH SCH ×2 (01:58→07:37)
[2017-02-27] MEDS: IPRATROPIUM BROMIDE NEB SOLN 0.02% 2.5 ML VIAL INH SCH ×2 (01:58→07:36)
[2017-02-27 07:56] LABS: HEMOGLOBIN 12.8 g/dL (14.0-18.0); MEAN CELL VOLUME 101.7 fL (80-100); MEAN CORPUSCULAR HEMOGLOBIN 36.2 pg (25-34); MEAN CORPUSCULAR HGB CONC 35.6 g/dl (32-36); RED CELL DISTRIBUTION WIDTH CV 13.2 % (11.5-14.5); RED CELL DISTRIBUTION WIDTH SD 48.9 fL (36.4-46.3); WHITE BLOOD COUNT 6.44 K/uL (4.8-10.8)
[2017-02-27 08:02] LABS: BASO % 0.5 %; BASO ABS # 0.03 K/uL (0-0.2); EOS ABS # 0.26 K/uL (0-0.5); IG# 0.02 K/uL (0.00-0.02); LYMPH % 24.1 %; LYMPH ABS # 1.55 K/uL (1.2-3.4); MEAN PLATELET VOLUME 10.5 fL (7.4-10.4); MONO % 15.1 %; MONO ABS # 0.97 K/uL (0.11-0.59); NEUT ABS # 3.61 K/uL (1.4-6.5); PLATELET COUNT 62 K/uL (130-400)
[2017-02-27] MEDS: TRAMADOL HCL 50 MG TAB PO PRN ×2 (08:15→16:52)
[2017-02-27] MEDS: NICOTINE 21 MG/24 HR TDSY TD SCH (08:15)
[2017-02-27] MEDS: OSELTAMIVIR PHOSPHATE 75 MG CAP PO SCH (08:16)
[2017-02-27] MEDS: BENZONATATE 100MG CAP PO PRN ×2 (08:17→16:56)
[2017-02-27] MEDS: THIAMINE HCL 100 MG TAB PO SCH (08:17)
[2017-02-27] MEDS: GUAIFENESIN 600 MG TABCR PO SCH ×2 (08:17→20:50)
[2017-02-27] MEDS: SPIRONOLACTONE 100 MG TAB PO SCH ×2 (08:19→20:51)
[2017-02-27] MEDS: FUROSEMIDE 40 MG TAB PO SCH ×2 (08:19→16:52)
[2017-02-27] MEDS: CYANOCOBALAMIN 100 MCG TAB (VIT B-12) PO SCH (08:20)
[2017-02-27] MEDS: PANTOprazole SOD 40 MG TAB PO SCH (08:20)
[2017-02-27] MEDS: RIFAXIMIN TAB 550 MG TAB PO SCH ×2 (08:21→20:50)
[2017-02-27] MEDS: LACTULOSE SYRUP 20 GM/30 ML UDC PO SCH ×4 (08:22→20:46)
[2017-02-27] MEDS: NICOTINE 7 MG/24 HR TDSY TD SCH (09:15)
--- NOTE | 2017-02-27 09:52 | Progress Note ---
Medicine Progress Note Date & Time of Visit: Feb 27, 2017 at 09:52. Subjective Patient is upset about having pain in his right side, states he is worried about his liver and is upset that he is being sent out of the hospital while "still sick" and states his cough is still present and productive. No overnight events noted. Tolerating PO without difficulty. Objective Last 8 Hrs Date Time Temp Pulse Resp B/P (MAP) Pulse Ox O2 Delivery O2 Flow Rate FiO2 02/27/17 08:14 105 109/68 (82) 02/27/17 08:03 36.8 84 18 101/68 (79) 96 02/27/17 08:00 Room Air 02/27/17 02:01 80 18 97 Nasal Cannula 2.0 Physical Exam: GENERAL: Patient is in no acute distress. HEENT: No acute trauma, normocephalic, mucous membranes moist, no nasal congestion, no scleral icterus, conjunctivae clear NECK: No stridor, trachea is midline. LUNGS: Coarse breath sounds bilaterally, no wheeze, no rhonchi, breath sounds equal. HEART: Without murmurs gallops or rubs, regular rate and rhythm. ABDOMEN: Soft, nontender, bowel sounds positive, no hepatosplenomegaly EXTREMITIES: No cyanosis or edema, full range of motion of all the joints without pain or difficulty, no signs for acute trauma. NEUROLOGIC: Oriented x 3, no acute motor or sensory deficits, no focal weakness. SKIN: No rash, no jaundice, no diaphoresis. Laboratory Results: Last 24 Hours Test 02/27/17 07:25 02/27/17 07:34 Bedside Glucose 97 mg/dl White Blood Count 6.44 K/uL Red Blood Count 3.54 M/uL Hemoglobin 12.8 g/dL Hematocrit 36.0 % Mean Corpuscular Volume 101.7 fL Mean Corpuscular Hemoglobin 36.2 pg Mean Corpuscular Hemoglobin Concent 35.6 g/dl Platelet Count 62 K/uL Mean Platelet Volume 10.5 fL Neutrophils (%) (Auto) 56.0 % Lymphocytes (%) (Auto) 24.1 % Monocytes (%) (Auto) 15.1 % Eosinophils (%) (Auto) 4.0 % Basophils (%) (Auto) 0.5 % Neutrophils # (Auto) 3.61 K/uL Lymphocytes # (Auto) 1.55 K/uL Monocytes # (Auto) 0.97 K/uL Eosinophils # (Auto) 0.26 K/uL Basophils # (Auto) 0.03 K/uL RDW Standard Deviation 48.9 fL RDW Coefficient of Variation 13.2 % Immature Granulocyte % (Auto) 0.3 % Immature Granulocyte # (Auto) 0.02 K/uL Assessment & Plan ACUTE HYPOXEMIC RESPIRATORY FAILURE: -likely secondary to Influenza A and bronchitis -CXR showed Mild nonspecific interstitial thickening. No evidence of focal pulmonary consolidation. -CTA chest showed NO PE, no pneumonia, but bronchial thickening suggestive of bronchitis -completed coarse of Tamiflu -on prednisone taper -no longer requiring oxygen -continue guaifenesin for the cough -elevated lactic acid initially, likely from the respiratory distress; has since trended down -blood cx no growth -Procalcitonin WNL -clinically improved -received cefepime in the ER -leukopenia resolved RUQ PAIN/RIGHT LOWER RIBS: -pain control -CT abd/pelvis showed No acute process in the abdomen or pelvis -U/S RUQ showed Cirrhosis. Normal gallbladder. No gallstones. -Liver enzymes stable SINUS TACHYCARDIA: improved -related to acute illness -on low dose Lopressor HYPERGLYCEMIA -likely related to prednisone/acute illness -HbA1c: 5.3 -monitor BSG LEFT SIDED ABDOMINAL PAIN: -secondary to cough -CT abd/pelvis showed No acute process in the abdomen or pelvis -resolved ALCOHOLIC CIRRHOSIS: -resumed spironolactone/Lasix -continue rifaximin and lactulose -has been moving bowels PANCYTOPENIA: -acute on chronic; secondary to acute illness and longstanding Liver Cirrhosis -all counts improving -no longer neutropenic -no sign of bleeding -Hematology consulted, appreciate recs -monitor CHRONIC HYPONATREMIA: -secondary to Liver cirrhosis -was on IV fluids initially -monitor ILIA on CKD Stage II: -Creatine on admission 1.4 -Cr improved to baseline -Lasix and spironolactone resumed -IV fluids stopped Current Inpatient Medications: Current Inpatient Medications Medications (Trade) Dose Ordered Sig/Kiya Route Start Time Stop Time Status Last Admin Dose Admin Acetaminophen (Tylenol Tab) 325 mg Q6H PRN PO 02/22/17 01:30 03/24/17 01:29 Prochlorperazine Edisylate 5 mg/ Syringe 5 ml @ 5 mls/min Q6H PRN IV 02/22/17 01:30 03/24/17 01:29 Lorazepam (Ativan Inj) 0.5 mg Q4H PRN IV 02/22/17 01:30 03/24/17 01:29 02/23/17 03:35 0.5 MG Guaifenesin (Mucinex Contr Rel Tab) 600 mg Q12 PO 02/22/17 21:00 03/24/17 20:59 02/27/17 08:17 600 MG Benzonatate (Tessalon Perles Cap) 100 mg TID PRN PO 02/22/17 01:30 03/24/17 01:29 02/27/17 08:17 100 MG Cyanocobalamin (Vitamin B-12 Tab) 100 mcg QAM PO 02/22/17 09:00 03/24/17 08:59 02/27/17 08:20 100 MCG Folic Acid (Folvite Tab) 1 mg QAM PO 02/22/17 09:00 03/24/17 08:59 02/27/17 08:21 1 MG Lactulose (Chronulac Syrup) 20 gm QID PO 02/22/17 09:00 03/24/17 08:59 02/27/17 08:22 20 GM Rifaximin (Xifaxan Tab) 550 mg BID PO 02/22/17 09:00 03/24/17 08:59 02/27/17 08:21 550 MG Thiamine HCl (Vitamin B-1 Tab) 100 mg QAM PO 02/22/17 09:00 03/24/17 08:59 02/27/17 08:17 100 MG Pantoprazole Sodium (Protonix Tab) 40 mg QAM PO 02/22/17 09:00 03/24/17 08:59 02/27/17 08:20 40 MG Miscellaneous (Iv Fluids Completed) 1 ea PRN PRN N/A 02/22/17 01:45 02/22/18 01:44 Ipratropium [place] (Atrovent 0.02% 0.5MG/2.5ML Neb) 0.5 mg Q4H PRN INH 02/22/17 02:00 03/24/17 01:59 02/25/17 23:59 0.5 MG Levalbuterol (Xopenex 1.25MG/ 0.5ML Neb) 1.25 mg Q4H PRN INH 02/22/17 02:00 03/24/17 01:59 02/25/17 23:59 1.25 MG Miscellaneous (Remove Nicoderm Patch) 1 ea QAM N/A 02/23/17 09:00 03/25/17 08:59 02/25/17 09:04 1 EA Oseltamivir Phosphate (Tamiflu Cap) 75 mg BID PO 02/22/17 21:00 02/27/17 20:59 02/27/17 08:16 75 MG Menthol (Nice Wilber) 1 wilber PRN PRN PO 02/22/17 05:00 03/24/17 04:59 Meclizine HCl (Antivert Tab) 12.5 mg Q6 PRN PO 02/22/17 12:15 03/24/17 12:14 Metoprolol Tartrate (Lopressor Iv) 2.5 mg Q6 PRN IV 02/22/17 18:15 03/24/17 18:14 02/22/17 18:23 2.5 MG Spironolactone (Aldactone Tab) 200 mg QAM PO 02/23/17 09:00 03/25/17 08:59 02/27/17 08:19 200 MG Furosemide (Lasix Tab) 40 mg BID17 PO 02/23/17 17:00 03/25/17 16:59 02/27/17 08:19 40 MG Spironolactone (Aldactone Tab) 100 mg QPM PO 02/24/17 21:00 03/26/17 20:59 02/26/17 21:08 100 MG Valacyclovir HCl (Valtrex Tab) 1,000 mg QAM PO 02/25/17 09:00 03/27/17 08:59 02/27/17 08:17 1,000 MG Tramadol HCl (Ultram Tab) not relieved by tylenol @ Q6H PRN PO 02/26/17 19:30 03/24/17 01:29 02/27/17 08:15 50 MG Sodium Chloride ([place] Nasal [place]) 1 sprays PRN PRN NA 02/26/17 21:15 03/28/17 21:14 Nicotine (Nicoderm Cq 7 Mg Patch) 1 patch QAM TD 02/27/17 09:15 03/29/17 09:14 UNV Miscellaneous (Remove Nicoderm Patch) 1 ea HS N/A 02/27/17 21:00 03/29/17 20:59 UNV
[2017-02-27] MEDS ORDERED: ONDANSETRON 4MG OD TAB ONE (18:26)
[2017-02-27] MEDS ORDERED: ONDANSETRON 8MG OD TAB PO PRN (18:30)
[2017-02-28] MEDS: BENZONATATE 100MG CAP PO PRN (01:02)
[2017-02-28] MEDS: IPRATROPIUM BROMIDE NEB SOLN 0.02% 2.5 ML VIAL INH PRN (01:32)
[2017-02-28] MEDS: LEVALBUTEROL 1.25MG/0.5ML NEB INH PRN (01:32)
[2017-02-28 01:33] VITALS: PULSE 82; O2SAT 95
[2017-02-28 07:23] VITALS: BP 110/67; PULSE 67; TEMP 36.8; O2SAT 92
[2017-02-28 07:43] LABS: HEMATOCRIT 36.7 % (42-52); HEMOGLOBIN 12.9 g/dL (14.0-18.0); MEAN CELL VOLUME 101.1 fL (80-100); MEAN CORPUSCULAR HEMOGLOBIN 35.5 pg (25-34); MEAN CORPUSCULAR HGB CONC 35.1 g/dl (32-36); RED CELL DISTRIBUTION WIDTH SD 48.1 fL (36.4-46.3); WHITE BLOOD COUNT 5.69 K/uL (4.8-10.8)
[2017-02-28 07:52] LABS: PLATELET COUNT 62 K/uL (130-400)
[2017-02-28 08:10] LABS: BASO % 0.5 %; BASO ABS # 0.03 K/uL (0-0.2); EOS % 5.3 %; IG# 0.02 K/uL (0.00-0.02); LYMPH % 20.2 %; LYMPH ABS # 1.15 K/uL (1.2-3.4); MONO % 14.9 %; MONO ABS # 0.85 K/uL (0.11-0.59); NEUT % 58.7 %; NEUT ABS # 3.34 K/uL (1.4-6.5)
[2017-02-28] MEDS: NICOTINE 7 MG/24 HR TDSY TD SCH (09:45)
[2017-02-28] MEDS: PANTOprazole SOD 40 MG TAB PO SCH (09:46)
[2017-02-28] MEDS: RIFAXIMIN TAB 550 MG TAB PO SCH ×2 (09:46→17:13)
[2017-02-28] MEDS: LACTULOSE SYRUP 20 GM/30 ML UDC PO SCH ×4 (09:46→17:12)
[2017-02-28] MEDS: CYANOCOBALAMIN 100 MCG TAB (VIT B-12) PO SCH (09:46)
[2017-02-28] MEDS: FUROSEMIDE 40 MG TAB PO SCH ×2 (09:46→17:00)
[2017-02-28] MEDS: THIAMINE HCL 100 MG TAB PO SCH (09:47)
[2017-02-28] MEDS: GUAIFENESIN 600 MG TABCR PO SCH ×2 (09:47→17:12)
[2017-02-28] MEDS: SPIRONOLACTONE 100 MG TAB PO SCH ×2 (09:47→17:12)
[2017-02-28 11:41] VITALS: BP 152/69; PULSE 108; TEMP 36.8; O2SAT 93
--- NOTE | 2017-02-28 12:34 | Gastrointestinal Consultation ---
Gastrointestinal Consultation Date of Consultation: Feb 28, 2017 Attending Physician: Jaswant Consulting Physician: Fredy Reason for Consultation: UGIB History of Present Illness Patient is a 57 year old male with ETOH liver disease, sober from ETOH x 4 years and others listed below who presented to the ED for evaluation of respiratory complaints including SOB - positive for flu. Pt was seen and evaluated, chart reviewed. Pt notes he had breakfast this AM, tolerated and had some lunch. Went for a walk, noted some upper abdominal discomfort. Went back to room and had an episode of emesis. Per nursing staff, this was all BRB from his mouth. Per pt, this was clear emesis w/ some BRB from a concurrent nose bleed. Pt notes his stool have been brown, no black or bloody stools. No other episodes of hematemesis or coffee ground emesis. No fever, chills, CP, SOB. VSS updated w/ BP 152/69 pulse 104. H&H 12.9/36.7 Decompensations Hepatic encephalopathy: on lactulose and xifaxan Ascites: on Lasix and Aldactone Varices: grade 1, no BB therapy indicated Screenings EGD: due 2017 HCC: due May 2017 Immunizations: unknown RUQ US 02/25/17: Cirrhosis. Normal gallbladder. No gallstones. CT ABD/Pelvis 02/22/17: Hepatic cirrhosis. Mild stable splenomegaly. No acute process in the abdomen or pelvis EGD 11/28/16: Grade I esophageal varices. Normal stomach. Normal duodenal bulb and 2nd part of the duodenum. No specimens collected. Past Medical/Surgical History Medical Problems: (1) Abdominal pain Status: Acute (2) Generalized weakness Status: Acute (3) Hepatic insufficiency Status: Acute (4) History of cirrhosis Status: Acute (5) Hypoxia Status: Acute (6) Leukopenia Status: Acute (7) Lyme disease Status: Acute (8) Right arm numbness Status: Acute (9) Thrombocytopenia Status: Chronic (10) URI (upper respiratory infection) Status: Acute (11) Vertigo Status: Acute Past Medical History: history portal vein thrombosis, grade 1 varices, ascites, ETOH cirrhosis, portal hypertensive gastropathy, HE, SOB, adrenal insufficiency, emphysema Past Surgical History: EGD x 4, colonoscopy x 2, paracentesis x 5, dental extraction Family History Alcohol abuse SISTER Cancer MOTHER (Lymphoma) Diabetes mellitus FATHER Heart disease Hypertension Social History Smoking Status: Former Smoker Alcohol Use: none Drug Use: none Marital Status: , in relationship Housing Status: lives alone Occupation Status: unemployed Allergies Coded Allergies: No Known Allergies (Unverified , 11/22/16) Current Medications Home Meds and Scripts Medications Dose Route/Sig Max Daily Dose Days Date Category Dose Instructions Voltaren 1% Top Gel (Diclofenac Sodium (Topical)) 1 % Gel 1 Appln TOP BID PRN 02/21/17 Reported Nicoderm Cq 21MG Patch (Nicotine) 21 Mg/24 Hr Dis 1 Patch TD DAILY 02/21/17 Reported Aldactone (Spironolactone) 100 Mg Tab 100 Mg PO QPM 12/07/16 Reported TAKE IN AFTERNOON Meclizine HCl 25 Mg Tab 25 Mg PO TID PRN 12/07/16 Reported Prilosec (Omeprazole) 40 Mg Cap 40 Mg PO QAM 11/22/16 Reported Ventolin Hfa (Albuterol) 200 Puffs/30159 Mcg Aers 2 Puffs INH Q4 PRN 05/01/16 Reported Flonase Allergy Relief (Fluticasone Propionate (Nasal)) 50 Mcg/Act Spr 2 Sprays [place] DAILY PRN 06/07/15 Reported Zofran (Ondansetron HCl) 4 Mg Tab 4 Mg PO Q6 PRN 11/12/14 Reported Lactulose 20 Gm/30 Ml Syrp 2 Tbs PO QID 11/12/14 Reported HOLD AFTER 3 BMS A DAY. Vitamin B-1 (Thiamine HCl) 100 Mg Tab 100 Mg PO QAM 04/15/14 Reported Spironolactone 100 Mg Tab 200 Mg PO QAM 04/15/14 Reported Lasix (Furosemide) 40 Mg Tab 40 Mg PO BID 04/04/14 Reported Vitamin B-12 (Cyanocobalamin) 100 Mcg Tab 100 Mcg PO QAM 04/04/14 Reported Valtrex (Valacyclovir Hcl) 1 Gm Tab 1 Gm PO QAM 03/26/14 Reported Xifaxan (Rifaximin) 550 Mg Tab 550 Mg PO BID 03/26/14 Reported Folic Acid 1 Mg Tab 1 Mg PO QAM 03/26/14 Reported Review of Systems Constitutional: No fever, No chills Respiratory: + cough, + shortness of breath Cardiac: No chest pain, No edema Abdomen: + pain, + nausea, + vomiting, + GI bleeding, No diarrhea, No constipation Physical Exam Date Time Temp Pulse Resp B/P (MAP) Pulse Ox O2 Delivery O2 Flow Rate FiO2 02/28/17 11:41 36.8 108 20 152/69 (96) 93 Room Air 02/28/17 08:50 Room Air 02/28/17 07:23 36.8 67 18 110/67 (81) 92 Room Air 02/28/17 01:33 82 18 95 Nasal Cannula 2.0 02/28/17 00:30 Room Air 02/27/17 23:03 36.9 83 17 116/73 (87) 95 Room Air 02/27/17 20:00 95 Room Air 02/27/17 16:50 96 133/82 (99) 02/27/17 16:00 Room Air 02/27/17 15:22 90 18 106/70 (82) 95 Room Air General Appearance: no apparent distress Eyes: PERRL ENT: hearing grossly normal Neck: supple Respiratory/Chest: chest non-tender, no accessory muscle use, + decreased breath sounds, + pertinent finding (coarse breath sounds) Cardiovascular: regular rate, rhythm Abdomen: normal bowel sounds, non tender, soft, no organomegaly Neurologic/Psych: alert, normal mood/affect, oriented x 3 Skin: normal color, no jaundice, warm/dry, no rash Laboratory Results Last 24 Hours Test 02/28/17 07:01 White Blood Count 5.69 K/uL Red Blood Count 3.63 M/uL Hemoglobin 12.9 g/dL Hematocrit 36.7 % Mean Corpuscular Volume 101.1 fL Mean Corpuscular Hemoglobin 35.5 pg Mean Corpuscular Hemoglobin Concent 35.1 g/dl Platelet Count 62 K/uL Mean Platelet Volume 11.0 fL Neutrophils (%) (Auto) 58.7 % Lymphocytes (%) (Auto) 20.2 % Monocytes (%) (Auto) 14.9 % Eosinophils (%) (Auto) 5.3 % Basophils (%) (Auto) 0.5 % Neutrophils # (Auto) 3.34 K/uL Lymphocytes # (Auto) 1.15 K/uL Monocytes # (Auto) 0.85 K/uL Eosinophils # (Auto) 0.30 K/uL Basophils # (Auto) 0.03 K/uL RDW Standard Deviation 48.1 fL RDW Coefficient of Variation 13.0 % Immature Granulocyte % (Auto) 0.4 % Immature Granulocyte # (Auto) 0.02 K/uL Hypersegmented Polys 1+ Impression Patient is a 57 year old male w/ ETOH induced cirrhosis and known varices with UGI discomfort after breakfast and lunch with an isolated episode of emesis, per nursing staff this was hematemesis per the pt this was associated w/ a nose bleed. No BRBPR, melena. He does have some nausea. No lightheadness, he has chronic dizziness which is unchanged. No CP or SOB Plan - NPO - Plan for EGD tomorrow unless there are repeat episodes of hematemesis as the pt had breakfast and lunch - Monitor stools - Monitor emesis - Monitor vital signs - Zofran PRN - Trend H&H - Transfuse PRN - PPI Bolus and drip - Octreotide Bolus and drip - IV ceftriaxone GI to follow, please call with any acute changes, questions or concerns. I saw and evaluated the patient. He initially presented to the hospital yesterday for evaluation of nausea, shortness of breath and dyspnea on exertion. After review of the medical records it appears that he was given a diagnosis of flu. We are consult at due to a long history of cirrhosis related to alcohol abuse and a question of hematemesis. The patient reports that he's had bloody noses and suspects that the blood that came up with his emesis is related to that. He denies having dark sticky stool repeated episodes of emesis today. During our evaluation today the patient was eating a regular meal. Physical examination Mild distress Expiratory wheezes heard Mild abdominal distention noted with a fluid wave Peripheral edema noted Impression: Patient presented to the hospital with flulike symptoms presently admitted for shortness of breath. GI consult for progression of hematemesis. Upon review with the patient we suspect that this may be from nasopharyngeal etiology as opposed to varices. I would recommend that the patient be left nothing by mouth today for potential upper endoscopy if needed tomorrow. Given the patient's comorbid flu if there is no evidence of a drop in blood count we likely defer endoscopy to a later date. Recommendations Nothing by mouth Begin octreotide Begin Protonix Monitor CBC Please call with any questions or concerns Dr. Peter Daniel
[2017-02-28] MEDS ORDERED: OCTREOTIDE IV BOLUS & DRIP IV STA (12:59)
[2017-02-28] MEDS ORDERED: PANTOprazole INJ 80 MG in DEXTROSE 5% 100ML IV ONE (13:15)
[2017-02-28] MEDS ORDERED: OCTREOTIDE ACETATE INJ 100 MCG in SYR 9 ML PHA PREPARED IV ONE (13:30)
[2017-02-28] MEDS: OCTREOTIDE ACETATE INJ 500 MCG in NSS 100ML IV SCH (13:47)
[2017-02-28] MEDS: CEFTRIAXONE SOD INJ 1,000 MG in DEXTROSE 5% 50ML 50 ML IV SCH (13:47)
[2017-02-28] MEDS: PANTOprazole INJ 40 MG in DEXTROSE 5% 100ML 100 ML IV SCH ×3 (13:47→23:27)
[2017-02-28 14:52] LABS: HEMATOCRIT 37.7 % (42-52); HEMOGLOBIN 13.7 g/dL (14.0-18.0)
[2017-02-28 16:25] VITALS: BP 111/72; PULSE 85; TEMP 36.7; O2SAT 92
--- NOTE | 2017-02-28 18:59 | Progress Note ---
Medicine Progress Note Date & Time of Visit: Feb 28, 2017 at 18:59. Subjective Patient states he was doing well, he ambulated last night but it made him cough and made his right sided rib/RUQ pain worse; he reports having hematemesis this morning, the RN witnessed the emesis and said it was mostly bright red blood and appeared more significant than blood from a nose bleed as the patient was reporting. The patient denied any additional symptoms but later in the day said he might have felt a "tearing sensation" in his stomach when ambulating. Reports his cough is better. Is upset about being NPO. Objective Last 8 Hrs Date Time Temp Pulse Resp B/P (MAP) Pulse Ox O2 Delivery O2 Flow Rate FiO2 02/28/17 16:25 36.7 85 18 111/72 (85) 92 Room Air 02/28/17 11:41 36.8 108 20 152/69 (96) 93 Room Air Physical Exam: GENERAL: Patient is in no acute distress. HEENT: No acute trauma, normocephalic, mucous membranes moist, no nasal congestion, no scleral icterus, conjunctivae clear NECK: No stridor, trachea is midline. LUNGS: Coarse breath sounds bilaterally, no wheeze, no rhonchi, breath sounds equal. HEART: Without murmurs gallops or rubs, regular rate and rhythm. ABDOMEN: Soft, nontender, bowel sounds positive, no hepatosplenomegaly; tenderness between right lower ribs EXTREMITIES: No cyanosis or edema, full range of motion of all the joints without pain or difficulty, no signs for acute trauma. NEUROLOGIC: Oriented x 3, no acute motor or sensory deficits, no focal weakness. SKIN: No rash, no jaundice, no diaphoresis. Laboratory Results: Last 24 Hours Test 02/28/17 07:01 02/28/17 14:27 White Blood Count 5.69 K/uL Red Blood Count 3.63 M/uL Hemoglobin 12.9 g/dL 13.7 g/dL Hematocrit 36.7 % 37.7 % Mean Corpuscular Volume 101.1 fL Mean Corpuscular Hemoglobin 35.5 pg Mean Corpuscular Hemoglobin Concent 35.1 g/dl Platelet Count 62 K/uL Mean Platelet Volume 11.0 fL Neutrophils (%) (Auto) 58.7 % Lymphocytes (%) (Auto) 20.2 % Monocytes (%) (Auto) 14.9 % Eosinophils (%) (Auto) 5.3 % Basophils (%) (Auto) 0.5 % Neutrophils # (Auto) 3.34 K/uL Lymphocytes # (Auto) 1.15 K/uL Monocytes # (Auto) 0.85 K/uL Eosinophils # (Auto) 0.30 K/uL Basophils # (Auto) 0.03 K/uL RDW Standard Deviation 48.1 fL RDW Coefficient of Variation 13.0 % Immature Granulocyte % (Auto) 0.4 % Immature Granulocyte # (Auto) 0.02 K/uL Hypersegmented Polys 1+ Assessment & Plan ACUTE HYPOXEMIC RESPIRATORY FAILURE: -likely secondary to Influenza A and bronchitis -CXR showed Mild nonspecific interstitial thickening. No evidence of focal pulmonary consolidation. -CTA chest showed NO PE, no pneumonia, but bronchial thickening suggestive of bronchitis -completed course of Tamiflu -on prednisone taper -no longer requiring oxygen -continue guaifenesin for the cough -elevated lactic acid initially, likely from the respiratory distress; has since trended down -blood cx no growth -Procalcitonin WNL -clinically improved -received cefepime in the ER -leukopenia resolved HEMATEMESIS: -question as to whether this was from the nose however with his history of cirrhosis and varices will consult GI for further evaluation -Hb and VSS -GI to plan for possible endoscopy tomorrow RUQ PAIN/RIGHT LOWER RIBS: -pain control -CT abd/pelvis showed No acute process in the abdomen or pelvis -U/S RUQ showed Cirrhosis. Normal gallbladder. No gallstones. -Liver enzymes stable SINUS TACHYCARDIA: improved -related to acute illness -on low dose Lopressor HYPERGLYCEMIA -likely related to prednisone/acute illness -HbA1c: 5.3 -monitor BSG LEFT SIDED ABDOMINAL PAIN: -secondary to cough -CT abd/pelvis showed No acute process in the abdomen or pelvis -resolved ALCOHOLIC CIRRHOSIS: -resumed spironolactone/Lasix -continue rifaximin and lactulose -has been moving bowels PANCYTOPENIA: -acute on chronic; secondary to acute illness and longstanding Liver Cirrhosis -all counts improving -no longer neutropenic -no sign of bleeding -Hematology consulted, appreciate recs -monitor CHRONIC HYPONATREMIA: -secondary to Liver cirrhosis -was on IV fluids initially -monitor ILIA on CKD Stage II: -Creatine on admission 1.4 -Cr improved to baseline -Lasix and spironolactone resumed -IV fluids stopped Current Inpatient Medications: Current Inpatient Medications Medications (Trade) Dose Ordered Sig/Kiya Route Start Time Stop Time Status Last Admin Dose Admin Acetaminophen (Tylenol Tab) 325 mg Q6H PRN PO 02/22/17 01:30 03/24/17 01:29 Prochlorperazine Edisylate 5 mg/ Syringe 5 ml @ 5 mls/min Q6H PRN IV 02/22/17 01:30 03/24/17 01:29 02/28/17 11:45 5 MLS/MIN Lorazepam (Ativan Inj) 0.5 mg Q4H PRN IV 02/22/17 01:30 03/24/17 01:29 02/23/17 03:35 0.5 MG Guaifenesin (Mucinex Contr Rel Tab) 600 mg Q12 PO 02/22/17 21:00 03/24/17 20:59 02/28/17 09:47 600 MG Benzonatate (Tessalon Perles Cap) 100 mg TID PRN PO 02/22/17 01:30 03/24/17 01:29 02/28/17 01:02 100 MG Cyanocobalamin (Vitamin B-12 Tab) 100 mcg QAM PO 02/22/17 09:00 03/24/17 08:59 02/28/17 09:46 100 MCG Folic Acid (Folvite Tab) 1 mg QAM PO 02/22/17 09:00 03/24/17 08:59 02/28/17 09:46 1 MG Lactulose (Chronulac Syrup) 20 gm QID PO 02/22/17 09:00 03/24/17 08:59 02/28/17 09:46 20 GM Rifaximin (Xifaxan Tab) 550 mg BID PO 02/22/17 09:00 03/24/17 08:59 02/28/17 09:46 550 MG Thiamine HCl (Vitamin B-1 Tab) 100 mg QAM PO 02/22/17 09:00 03/24/17 08:59 02/28/17 09:47 100 MG Miscellaneous (Iv Fluids Completed) 1 ea PRN PRN N/A 02/22/17 01:45 02/22/18 01:44 Ipratropium [place] (Atrovent 0.02% 0.5MG/2.5ML Neb) 0.5 mg Q4H PRN INH 02/22/17 02:00 03/24/17 01:59 02/28/17 01:32 0.5 MG Levalbuterol (Xopenex 1.25MG/ 0.5ML Neb) 1.25 mg Q4H PRN INH 02/22/17 02:00 03/24/17 01:59 02/28/17 01:32 1.25 MG Miscellaneous (Remove Nicoderm Patch) 1 ea QAM N/A 02/23/17 09:00 03/25/17 08:59 02/25/17 09:04 1 EA Menthol (Nice Wilber) 1 wilber PRN PRN PO 02/22/17 05:00 03/24/17 04:59 Meclizine HCl (Antivert Tab) 12.5 mg Q6 PRN PO 02/22/17 12:15 03/24/17 12:14 Metoprolol Tartrate (Lopressor Iv) 2.5 mg Q6 PRN IV 02/22/17 18:15 03/24/17 18:14 02/22/17 18:23 2.5 MG Spironolactone (Aldactone Tab) 200 mg QAM PO 02/23/17 09:00 03/25/17 08:59 02/28/17 09:47 200 MG Furosemide (Lasix Tab) 40 mg BID17 PO 02/23/17 17:00 03/25/17 16:59 02/28/17 09:46 40 MG Spironolactone (Aldactone Tab) 100 mg QPM PO 02/24/17 21:00 03/26/17 20:59 02/27/17 20:51 100 MG Valacyclovir HCl (Valtrex Tab) 1,000 mg QAM PO 02/25/17 09:00 03/27/17 08:59 02/28/17 09:47 1,000 MG Tramadol HCl (Ultram Tab) not relieved by tylenol @ Q6H PRN PO 02/26/17 19:30 03/24/17 01:29 02/27/17 16:52 50 MG Sodium Chloride ([place] Nasal [place]) 1 sprays PRN PRN NA 02/26/17 21:15 03/28/17 21:14 Nicotine (Nicoderm Cq 7 Mg Patch) 1 patch QAM TD 02/27/17 09:15 03/29/17 09:14 02/28/17 09:45 1 PATCH Ondansetron HCl (Zofran Odt) 8 mg Q8H PRN PO 02/27/17 18:30 03/29/17 18:29 02/28/17 05:47 8 MG Pantoprazole Sodium 40 mg/ Dextrose 110 ml @ 20 mls/hr Q5H IV 02/28/17 13:30 03/30/17 13:29 02/28/17 18:33 20 MLS/HR Ceftriaxone Sodium 1000 mg/ Dextrose 60 ml @ 100 mls/hr DAILY IV 02/28/17 13:45 03/10/17 13:44 02/28/17 13:47 100 MLS/HR Octreotide Acetate 500 mcg/ Sodium Chloride 105 ml @ 10 mls/hr [id number] IV 02/28/17 13:30 03/30/17 13:29 02/28/17 13:47 10 MLS/HR
[2017-02-28 23:47] VITALS: BP 115/74; PULSE 78; TEMP 36.9; O2SAT 92
[2017-03-01] MEDS: OCTREOTIDE ACETATE INJ 500 MCG in NSS 100ML IV SCH (00:07)
[2017-03-01] MEDS: PANTOprazole INJ 40 MG in DEXTROSE 5% 100ML 100 ML IV SCH ×2 (04:22→07:51)
[2017-03-01 06:26] LABS: HEMATOCRIT 36.1 % (42-52); MEAN CELL VOLUME 100.6 fL (80-100); MEAN CORPUSCULAR HEMOGLOBIN 36.2 pg (25-34); RED CELL DISTRIBUTION WIDTH CV 12.9 % (11.5-14.5); RED CELL DISTRIBUTION WIDTH SD 47.4 fL (36.4-46.3); WHITE BLOOD COUNT 4.13 K/uL (4.8-10.8)
[2017-03-01 06:27] LABS: MEAN PLATELET VOLUME 10.5 fL (7.4-10.4); PLATELET COUNT 55 K/uL (130-400)
[2017-03-01 07:06] LABS: BASO % 0.7 %; BASO ABS # 0.03 K/uL (0-0.2); EOS % 5.1 %; EOS ABS # 0.21 K/uL (0-0.5); IG# 0.02 K/uL (0.00-0.02); LYMPH % 18.2 %; LYMPH ABS # 0.75 K/uL (1.2-3.4); MONO ABS # 0.91 K/uL (0.11-0.59); NEUT % 53.5 %; NEUT ABS # 2.21 K/uL (1.4-6.5)
[2017-03-01] MEDS: SPIRONOLACTONE 100 MG TAB PO SCH ×3 (07:42→20:20)
[2017-03-01] MEDS: LACTULOSE SYRUP 20 GM/30 ML UDC PO SCH ×6 (07:42→20:21)
[2017-03-01] MEDS: GUAIFENESIN 600 MG TABCR PO SCH ×3 (07:42→20:21)
[2017-03-01] MEDS: FUROSEMIDE 40 MG TAB PO SCH ×3 (07:42→16:51)
[2017-03-01] MEDS: THIAMINE HCL 100 MG TAB PO SCH ×2 (07:43→08:36)
[2017-03-01] MEDS: RIFAXIMIN TAB 550 MG TAB PO SCH ×3 (07:43→20:21)
[2017-03-01] MEDS: CYANOCOBALAMIN 100 MCG TAB (VIT B-12) PO SCH ×2 (07:43→08:34)
[2017-03-01] MEDS: NICOTINE 7 MG/24 HR TDSY TD SCH ×2 (07:50→08:36)
[2017-03-01] MEDS: CEFTRIAXONE SOD INJ 1,000 MG in DEXTROSE 5% 50ML 50 ML IV SCH (07:50)
[2017-03-01 08:00] VITALS: BP 118/71; PULSE 78; TEMP 36.7; O2SAT 93
[2017-03-01] MEDS ORDERED: NURSING VERBAL MED ORDER ONE (08:30)
[2017-03-01] MEDS: BENZONATATE 100MG CAP PO PRN (08:35)
--- NOTE | 2017-03-01 09:53 | Gastroenterology Progress Note ---
Progress Note Date of Service: Mar 01, 2017 Subjective Pt evaluation today including: conversation w/ patient, physical exam, chart review, lab review Pt was seen and evaluated, chart reviewed. Care coordinated w/ nursing. No plan for EGD today as there was no further question of hematemesis. Pt has been moving his bowels, brown stools no black or bloody stools. He likely had a nose bleed. Vital signs were stable and repeat H&H were stable at recheck. Pt feels well, tells me he wants to go home. He is quite irritated this AM about not being fed since last night. No fever, chills, CP, SOB. Decompensations Hepatic encephalopathy: on lactulose and xifaxan Ascites: on Lasix and Aldactone Varices: grade 1, no BB therapy indicated Screenings EGD: due 2017 HCC: due May 2017 Immunizations: unknown RUQ US 02/25/17: Cirrhosis. Normal gallbladder. No gallstones. CT ABD/Pelvis 02/22/17: Hepatic cirrhosis. Mild stable splenomegaly. No acute process in the abdomen or pelvis EGD 11/28/16: Grade I esophageal varices. Normal stomach. Normal duodenal bulb and 2nd part of the duodenum. No specimens collected. Review of Systems Constitutional: No fever, No chills Respiratory: No cough Cardiac: No chest pain Abdomen: No pain, No nausea, No vomiting, No diarrhea, No constipation, No GI bleeding Medications Current Inpatient Medications Medications (Trade) Dose Ordered Sig/Kiya Route Start Time Stop Time Status Last Admin Dose Admin Acetaminophen (Tylenol Tab) 325 mg Q6H PRN PO 02/22/17 01:30 03/24/17 01:29 Prochlorperazine Edisylate 5 mg/ Syringe 5 ml @ 5 mls/min Q6H PRN IV 02/22/17 01:30 03/24/17 01:29 02/28/17 11:45 5 MLS/MIN Lorazepam (Ativan Inj) 0.5 mg Q4H PRN IV 02/22/17 01:30 03/24/17 01:29 02/23/17 03:35 0.5 MG Guaifenesin (Mucinex Contr Rel Tab) 600 mg Q12 PO 02/22/17 21:00 03/24/17 20:59 03/01/17 08:36 600 MG Benzonatate (Tessalon Perles Cap) 100 mg TID PRN PO 02/22/17 01:30 03/24/17 01:29 03/01/17 08:35 100 MG Cyanocobalamin (Vitamin B-12 Tab) 100 mcg QAM PO 02/22/17 09:00 03/24/17 08:59 03/01/17 08:34 100 MCG Folic Acid (Folvite Tab) 1 mg QAM PO 02/22/17 09:00 03/24/17 08:59 03/01/17 08:36 1 MG Lactulose (Chronulac Syrup) 20 gm QID PO 02/22/17 09:00 03/24/17 08:59 03/01/17 08:38 20 GM Rifaximin (Xifaxan Tab) 550 mg BID PO 02/22/17 09:00 03/24/17 08:59 03/01/17 08:34 550 MG Thiamine HCl (Vitamin B-1 Tab) 100 mg QAM PO 02/22/17 09:00 03/24/17 08:59 03/01/17 08:36 100 MG Miscellaneous (Iv Fluids Completed) 1 ea PRN PRN N/A 02/22/17 01:45 02/22/18 01:44 Ipratropium [place] (Atrovent 0.02% 0.5MG/2.5ML Neb) 0.5 mg Q4H PRN INH 02/22/17 02:00 03/24/17 01:59 02/28/17 01:32 0.5 MG Levalbuterol (Xopenex 1.25MG/ 0.5ML Neb) 1.25 mg Q4H PRN INH 02/22/17 02:00 03/24/17 01:59 02/28/17 01:32 1.25 MG Miscellaneous (Remove Nicoderm Patch) 1 ea QAM N/A 02/23/17 09:00 03/25/17 08:59 03/01/17 07:50 1 EA Menthol (Nice Wilber) 1 wilber PRN PRN PO 02/22/17 05:00 03/24/17 04:59 Meclizine HCl (Antivert Tab) 12.5 mg Q6 PRN PO 02/22/17 12:15 03/24/17 12:14 Metoprolol Tartrate (Lopressor Iv) 2.5 mg Q6 PRN IV 02/22/17 18:15 03/24/17 18:14 02/22/17 18:23 2.5 MG Spironolactone (Aldactone Tab) 200 mg QAM PO 02/23/17 09:00 03/25/17 08:59 03/01/17 08:35 200 MG Furosemide (Lasix Tab) 40 mg BID17 PO 02/23/17 17:00 03/25/17 16:59 03/01/17 08:37 40 MG Spironolactone (Aldactone Tab) 100 mg QPM PO 02/24/17 21:00 03/26/17 20:59 02/27/17 20:51 100 MG Valacyclovir HCl (Valtrex Tab) 1,000 mg QAM PO 02/25/17 09:00 03/27/17 08:59 03/01/17 08:35 1,000 MG Tramadol HCl (Ultram Tab) not relieved by tylenol @ Q6H PRN PO 02/26/17 19:30 03/24/17 01:29 02/27/17 16:52 50 MG Sodium Chloride ([place] Nasal [place]) 1 sprays PRN PRN NA 02/26/17 21:15 03/28/17 21:14 Nicotine (Nicoderm Cq 7 Mg Patch) 1 patch QAM TD 02/27/17 09:15 03/29/17 09:14 03/01/17 08:36 1 PATCH Ondansetron HCl (Zofran Odt) 8 mg Q8H PRN PO 02/27/17 18:30 03/29/17 18:29 02/28/17 05:47 8 MG Objective Vital Signs Date Time Temp Pulse Resp B/P (MAP) Pulse Ox O2 Delivery O2 Flow Rate FiO2 03/01/17 08:00 36.7 78 18 118/71 (87) 93 Room Air 03/01/17 00:10 Room Air 02/28/17 23:47 36.9 78 20 115/74 (88) 92 Room Air 02/28/17 16:25 36.7 85 18 111/72 (85) 92 Room Air 02/28/17 16:00 Room Air 1/24/18 11:41 36.8 108 20 152/69 (96) 93 Room Air Physical Exam General Appearance: no apparent distress Eyes: PERRL ENT: hearing grossly normal Neck: supple Respiratory/Chest: lungs clear, normal breath sounds Cardiovascular: regular rate, rhythm Abdomen: normal bowel sounds, non tender, soft Neurologic/Psych: alert, normal mood/affect, oriented x 3 Skin: normal color Laboratory Results Last 24 Hours Test 02/28/17 14:27 03/01/17 05:47 Hemoglobin 13.7 g/dL 13.0 g/dL Hematocrit 37.7 % 36.1 % White Blood Count 4.13 K/uL Red Blood Count 3.59 M/uL Mean Corpuscular Volume 100.6 fL Mean Corpuscular Hemoglobin 36.2 pg Mean Corpuscular Hemoglobin Concent 36.0 g/dl Platelet Count 55 K/uL Mean Platelet Volume 10.5 fL Neutrophils (%) (Auto) 53.5 % Lymphocytes (%) (Auto) 18.2 % Monocytes (%) (Auto) 22.0 % Eosinophils (%) (Auto) 5.1 % Basophils (%) (Auto) 0.7 % Neutrophils # (Auto) 2.21 K/uL Lymphocytes # (Auto) 0.75 K/uL Monocytes # (Auto) 0.91 K/uL Eosinophils # (Auto) 0.21 K/uL Basophils # (Auto) 0.03 K/uL RDW Standard Deviation 47.4 fL RDW Coefficient of Variation 12.9 % Immature Granulocyte % (Auto) 0.5 % Immature Granulocyte # (Auto) 0.02 K/uL Assessment and Plan Patient is a 57 year old male w/ ETOH induced cirrhosis and known varices with UGI discomfort after breakfast and lunch with an isolated episode of emesis, per nursing staff this was hematemesis per the pt this was associated w/ a nose bleed. No BRBPR, melena. He does have some nausea. No lightheadness, he has chronic dizziness which is unchanged. No CP or SOB. Pts vitals signs, blood count were stable throughout the night, there has not been any recurrence of UGI bleed, and no evidence of lower GIB. Blood loss likely from nasopharyngeal source as pt reports a nose bleed. No plan for EGD today. GI to sign off. Please resume diet Please stop PPI, octreotide and ceftriaxone Please call with any questions, concerns, acute changes I saw and evaluated the patient this afternoon. There is been no reports of hematemesis or melena. Based on a discussion with the patient we suspect that his bleeding was epistaxis or nasopharyngeal in etiology. Recommendations Discontinue octreotide Low-sodium diet Please call with any questions or concerns, GI to sign off for the present time
[2017-03-01 15:17] VITALS: BP 124/71; PULSE 77; TEMP 36.8; O2SAT 93
--- NOTE | 2017-03-01 18:58 | Progress Note ---
Medicine Progress Note Date & Time of Visit: Mar 01, 2017 at 18:58. Subjective Patient reports feeling his cough and SOB are ongoing, states he is intentionally limiting his activity to keep himself from coughing as that also makes his pain worse. No additional episodes of hematemesis noted. No overnight events noted. Objective Last 8 Hrs Date Time Temp Pulse Resp B/P (MAP) Pulse Ox O2 Delivery O2 Flow Rate FiO2 03/01/17 16:00 Room Air 03/01/17 15:17 36.8 77 18 124/71 (88) 93 Room Air Physical Exam: GENERAL: Patient is in no acute distress. HEENT: No acute trauma, normocephalic, mucous membranes moist, no nasal congestion, no scleral icterus, conjunctivae clear NECK: No stridor, trachea is midline. LUNGS: CTA bilaterally, no wheeze, no rhonchi, breath sounds equal. HEART: Without murmurs gallops or rubs, regular rate and rhythm. ABDOMEN: Soft, nontender, bowel sounds positive, no hepatosplenomegaly; tenderness between right lower ribs and epigastric EXTREMITIES: No cyanosis or edema, full range of motion of all the joints without pain or difficulty, no signs for acute trauma. NEUROLOGIC: Oriented x 3, no acute motor or sensory deficits, no focal weakness. SKIN: No rash, no jaundice, no diaphoresis. Laboratory Results: Last 24 Hours Test 03/01/17 05:47 White Blood Count 4.13 K/uL Red Blood Count 3.59 M/uL Hemoglobin 13.0 g/dL Hematocrit 36.1 % Mean Corpuscular Volume 100.6 fL Mean Corpuscular Hemoglobin 36.2 pg Mean Corpuscular Hemoglobin Concent 36.0 g/dl Platelet Count 55 K/uL Mean Platelet Volume 10.5 fL Neutrophils (%) (Auto) 53.5 % Lymphocytes (%) (Auto) 18.2 % Monocytes (%) (Auto) 22.0 % Eosinophils (%) (Auto) 5.1 % Basophils (%) (Auto) 0.7 % Neutrophils # (Auto) 2.21 K/uL Lymphocytes # (Auto) 0.75 K/uL Monocytes # (Auto) 0.91 K/uL Eosinophils # (Auto) 0.21 K/uL Basophils # (Auto) 0.03 K/uL RDW Standard Deviation 47.4 fL RDW Coefficient of Variation 12.9 % Immature Granulocyte % (Auto) 0.5 % Immature Granulocyte # (Auto) 0.02 K/uL Assessment & Plan ACUTE HYPOXEMIC RESPIRATORY FAILURE: -likely secondary to Influenza A and bronchitis -CXR showed Mild nonspecific interstitial thickening. No evidence of focal pulmonary consolidation. -CTA chest showed NO PE, no pneumonia, but bronchial thickening suggestive of bronchitis -completed course of Tamiflu -on prednisone taper -no longer requiring oxygen -continue guaifenesin for the cough -elevated lactic acid initially, likely from the respiratory distress; has since trended down -blood cx no growth -Procalcitonin WNL -clinically improved -received cefepime in the ER -leukopenia resolved HEMATEMESIS: -question as to whether this was from the nose however with his history of cirrhosis and varices will consult GI for further evaluation -Hb and VSS -GI not planning for endoscopy as no additional episodes occurred, will follow up as outpatient RUQ PAIN/RIGHT LOWER RIBS: -pain control -CT abd/pelvis showed No acute process in the abdomen or pelvis -U/S RUQ showed Cirrhosis. Normal gallbladder. No gallstones. -Liver enzymes stable SINUS TACHYCARDIA: improved -related to acute illness -on low dose Lopressor HYPERGLYCEMIA -likely related to prednisone/acute illness -HbA1c: 5.3% -monitor BSG LEFT SIDED ABDOMINAL PAIN: -secondary to cough -CT abd/pelvis showed No acute process in the abdomen or pelvis -resolved ALCOHOLIC CIRRHOSIS: -resumed spironolactone/Lasix -continue rifaximin and lactulose -has been moving bowels PANCYTOPENIA: -acute on chronic; secondary to acute illness and longstanding Liver Cirrhosis -all counts improving -no longer neutropenic -no sign of bleeding -Hematology consulted, appreciate recs -monitor CHRONIC HYPONATREMIA: -secondary to Liver cirrhosis -was on IV fluids initially -monitor ILIA on CKD Stage II: -Creatine on admission 1.4 -Cr improved to baseline -Lasix and spironolactone resumed -IV fluids stopped Current Inpatient Medications: Current Inpatient Medications Medications (Trade) Dose Ordered Sig/Kiya Route Start Time Stop Time Status Last Admin Dose Admin Acetaminophen (Tylenol Tab) 325 mg Q6H PRN PO 02/22/17 01:30 03/24/17 01:29 Prochlorperazine Edisylate 5 mg/ Syringe 5 ml @ 5 mls/min Q6H PRN IV 02/22/17 01:30 03/24/17 01:29 02/28/17 11:45 5 MLS/MIN Lorazepam (Ativan Inj) 0.5 mg Q4H PRN IV 02/22/17 01:30 03/24/17 01:29 02/23/17 03:35 0.5 MG Guaifenesin (Mucinex Contr Rel Tab) 600 mg Q12 PO 02/22/17 21:00 03/24/17 20:59 03/01/17 08:36 600 MG Benzonatate (Tessalon Perles Cap) 100 mg TID PRN PO 02/22/17 01:30 03/24/17 01:29 03/01/17 08:35 100 MG Cyanocobalamin (Vitamin B-12 Tab) 100 mcg QAM PO 02/22/17 09:00 03/24/17 08:59 03/01/17 08:34 100 MCG Folic Acid (Folvite Tab) 1 mg QAM PO 02/22/17 09:00 03/24/17 08:59 03/01/17 08:36 1 MG Lactulose (Chronulac Syrup) 20 gm QID PO 02/22/17 09:00 03/24/17 08:59 03/01/17 14:17 20 GM Rifaximin (Xifaxan Tab) 550 mg BID PO 02/22/17 09:00 03/24/17 08:59 03/01/17 08:34 550 MG Thiamine HCl (Vitamin B-1 Tab) 100 mg QAM PO 02/22/17 09:00 03/24/17 08:59 03/01/17 08:36 100 MG Miscellaneous (Iv Fluids Completed) 1 ea PRN PRN N/A 02/22/17 01:45 02/22/18 01:44 Ipratropium [place] (Atrovent 0.02% 0.5MG/2.5ML Neb) 0.5 mg Q4H PRN INH 02/22/17 02:00 03/24/17 01:59 02/28/17 01:32 0.5 MG Levalbuterol (Xopenex 1.25MG/ 0.5ML Neb) 1.25 mg Q4H PRN INH 02/22/17 02:00 03/24/17 01:59 02/28/17 01:32 1.25 MG Miscellaneous (Remove Nicoderm Patch) 1 ea QAM N/A 02/23/17 09:00 03/25/17 08:59 03/01/17 07:50 1 EA Menthol (Nice Wilber) 1 wilber PRN PRN PO 02/22/17 05:00 03/24/17 04:59 Meclizine HCl (Antivert Tab) 12.5 mg Q6 PRN PO 02/22/17 12:15 03/24/17 12:14 Metoprolol Tartrate (Lopressor Iv) 2.5 mg Q6 PRN IV 02/22/17 18:15 03/24/17 18:14 02/22/17 18:23 2.5 MG Spironolactone (Aldactone Tab) 200 mg QAM PO 02/23/17 09:00 03/25/17 08:59 03/01/17 08:35 200 MG Furosemide (Lasix Tab) 40 mg BID17 PO 02/23/17 17:00 03/25/17 16:59 03/01/17 16:51 40 MG Spironolactone (Aldactone Tab) 100 mg QPM PO 02/24/17 21:00 03/26/17 20:59 02/27/17 20:51 100 MG Valacyclovir HCl (Valtrex Tab) 1,000 mg QAM PO 02/25/17 09:00 03/27/17 08:59 03/01/17 08:35 1,000 MG Tramadol HCl (Ultram Tab) not relieved by tylenol @ Q6H PRN PO 02/26/17 19:30 03/24/17 01:29 02/27/17 16:52 50 MG Sodium Chloride ([place] Nasal [place]) 1 sprays PRN PRN NA 02/26/17 21:15 03/28/17 21:14 Nicotine (Nicoderm Cq 7 Mg Patch) 1 patch QAM TD 02/27/17 09:15 03/29/17 09:14 03/01/17 08:36 1 PATCH Ondansetron HCl (Zofran Odt) 8 mg Q8H PRN PO 02/27/17 18:30 03/29/17 18:29 02/28/17 05:47 8 MG
[2017-03-01 23:47] VITALS: BP 113/71; PULSE 83; TEMP 36.7; O2SAT 95
[2017-03-02 00:18] VITALS: PULSE 83; O2SAT 98
[2017-03-02] MEDS: LEVALBUTEROL 1.25MG/0.5ML NEB INH PRN (00:18)
[2017-03-02] MEDS: IPRATROPIUM BROMIDE NEB SOLN 0.02% 2.5 ML VIAL INH PRN (00:18)
[2017-03-02 07:23] VITALS: BP 124/78; PULSE 80; TEMP 37.2; O2SAT 94
[2017-03-02] MEDS: CYANOCOBALAMIN 100 MCG TAB (VIT B-12) PO SCH (08:06)
[2017-03-02] MEDS: LACTULOSE SYRUP 20 GM/30 ML UDC PO SCH ×2 (08:06→13:00)
[2017-03-02] MEDS: RIFAXIMIN TAB 550 MG TAB PO SCH (08:06)
[2017-03-02] MEDS: GUAIFENESIN 600 MG TABCR PO SCH (08:07)
[2017-03-02] MEDS: THIAMINE HCL 100 MG TAB PO SCH (08:07)
[2017-03-02] MEDS: SPIRONOLACTONE 100 MG TAB PO SCH (08:07)
[2017-03-02] MEDS: FUROSEMIDE 40 MG TAB PO SCH (08:07)
[2017-03-02] MEDS: NICOTINE 7 MG/24 HR TDSY TD SCH (08:10)
[2017-03-02] MEDS ORDERED: BENZ100C7 PO (11:34)
--- NOTE | 2017-03-02 11:38 | Discharge Instructions ---
Discharge Instructions Date of Service Mar 02, 2017. Admission Reason for Admission: Respiratory Failure Discharge Discharge Diagnosis / Problem: Respiratory failure, influenza Discharge Goals Goal(s): Therapeutic intervention Activity Recommendations Activity Limitations: resume your previous activity . Instructions / Follow-Up Instructions / Follow-Up Please see Dr. Garcia on SundayMarch 06 at 2:05PM for hospital follow up Please follow up with GI as scheduled Current Hospital Diet Patient's current hospital diet: Low Sodium Diet (2gm Na) Discharge Diet Recommended Diet: Low Sodium Diet (2gm Na) Pending Studies Studies pending at discharge: no Laboratory Results Hemoglobin A1c Test 02/24/17 06:30 Range/Units Estimated Average Glucose 105 mg/dl Hemoglobin A1c 5.3 4.5-5.6 % Medical Emergencies . Who to Call and When: Medical Emergencies: If at any time you feel your situation is an emergency, please call 911 immediately. . Non-Emergent Contact Non-Emergency issues call your: Primary Care Provider, Lead Software Engineer . . "Provider Documentation" section prepared by Maria Victoria Michaud. . VTE Core Measure Inpt VTE Proph given/why not?: SCD's, Contraindicated
[2017-03-02 11:45] VITALS: BP 124/78; PULSE 80; TEMP 37.2; O2SAT 94
--- NOTE | 2017-03-03 09:07 | Discharge Summary ---
Discharge Summary Date of Service Mar 03, 2017. Discharge Summary Admission Date: Feb 22, 2017 at 01:23 Discharge Date: Mar 02, 2017 Discharge Disposition: Home Principal Diagnosis: Influenza, respiratory distress, bronchitis Pending Studies/Follow-Up: GI follow up Medication Reconciliation New Medications: Benzonatate (Benzonatate) 100 Mg Cap 100 MG PO TID PRN for Cough, #30 CAP Continued Medications: Albuterol Hfa (Ventolin Hfa) 200 Puffs/74817 Mcg Aers 2 PUFFS INH Q4 PRN for SOB/Wheezing, #1 INHALER Cyanocobalamin (Vitamin B-12) 100 Mcg Tab 100 MCG PO QAM Diclofenac Sodium (Topical) (Voltaren 1% Top Gel) 1 % Gel 1 APPLN TOP BID PRN for Fluticasone Propionate (Nasal) (Flonase Allergy Relief) 50 Mcg/Act Spr 2 SPRAYS GUANAKO DAILY PRN for PRN\\ Folic Acid (Folic Acid) 1 Mg Tab 1 MG PO QAM Furosemide (Lasix) 40 Mg Tab 40 MG PO BID, TAB Lactulose (Lactulose) 20 Gm/30 Ml Syrp 2 TBS PO QID HOLD AFTER 3 BMS A DAY. Meclizine HCl (Meclizine HCl) 25 Mg Tab 25 MG PO TID PRN for Dizziness or Vertigo Nicotine (Nicoderm Cq 21MG Patch) 21 Mg/24 Hr Dis 1 PATCH TD DAILY, PATCH Omeprazole (Prilosec) 40 Mg Cap 40 MG PO QAM, CAP Ondansetron Hcl (Zofran) 4 Mg Tab 4 MG PO Q6 PRN for Nausea, TAB Rifaximin (Xifaxan) 550 Mg Tab 550 MG PO BID Spironolactone (Spironolactone) 100 Mg Tab 200 MG PO QAM Spironolactone (Aldactone) 100 Mg Tab 100 MG PO QPM, TAB TAKE IN AFTERNOON Thiamine Hcl (Vitamin B-1) 100 Mg Tab 100 MG PO QAM Valacyclovir Hcl (Valtrex) 1 Gm Tab 1 GM PO QAM Admission Information HPI (per Admitting provider): CHIEF COMPLAINT: Shortness of breath. HISTORY OF PRESENT ILLNESS: History obtained from patient and records. Medical history is significant for alcoholic cirrhosis, past tobacco abuse, genital herpes on chronic acyclovir, portal vein thrombosis as per records, chronic thrombocytopenia, chronic anemia (baseline hemoglobin of 13), chronic hyponatremia. Recent confinement last December 2016 for hepatic encephalopathy. Last 2 days, the patient noted cough symptoms mostly dry with pleuritic central chest pain with shortness of breath symptoms. Denies aspiration. Patient also noted achy left-sided, abdominal pain, usual loose stools attributed to lactulose, nonbloody as per patient. No known sick contacts. Generalized weakness, "legs felt like noodles." The patient brought to Emergency Room by EMS. O2 sats 80s on room air. Given Decadron, nebs in the ER for bronchitis. MEDICAL HISTORY: As above. A 2D echo from November 2016 showed EF of 60-64%. No evidence of pulmonary hypertension. SURGERIES: none. HOME MEDICATIONS: Include Aldactone, spironolactone, thiamine, Valtrex, lactulose, meclizine, Nicoderm, Prilosec, Zofran, Ventolin, vitamin B12, Voltaren, Flonase, folic acid, Lasix. ALLERGIES: No known drug allergies. FAMILY HISTORY: Diabetes. PERSONAL AND SOCIAL HISTORY: Past tobacco/alcohol abuse, disabled. REVIEW OF SYSTEMS: As per HPI. All 10 systems reviewed. All other ROS negative. PHYSICAL EXAMINATION: VITAL SIGNS: Blood pressure was noted to be 130/91, pulse rate 105, RR 24, temperature 37.1, O2 sats 88 RA later 94 on 2 liters. GENERAL: Noted to be uncomfortable, obese, min respiratory distress. Mild slurring. SKIN: Pallor. Warm. HEENT: Pale palpebral conjunctivae. No ptosis. Dry mucosa. NECK: Supple, nontender. CHEST: Occasional expiratory wheezes. anterior chest wall tenderness. HEART: Tachycardic. No murmur. ABDOMEN: Soft, some distension, nontender. EXTREMITIES: Minimal LE edema, no tenderness. No gross deformities. NEUROLOGIC: Coherent. No gross focality except for occasional slurring. Hospital Course ACUTE HYPOXEMIC RESPIRATORY FAILURE: -likely secondary to Influenza A and bronchitis -CXR showed Mild nonspecific interstitial thickening. No evidence of focal pulmonary consolidation. -CTA chest showed NO PE, no pneumonia, but bronchial thickening suggestive of bronchitis -completed course of Tamiflu -on prednisone taper -no longer requiring oxygen -continue guaifenesin for the cough -elevated lactic acid initially, likely from the respiratory distress; has since trended down -blood cx no growth -Procalcitonin WNL -clinically improved -received cefepime in the ER; no indications for additional abx -leukopenia resolved HEMATEMESIS: -question as to whether this was from the nose however with his history of cirrhosis and varices will consult GI for further evaluation -Hb and VSS -GI not planning for endoscopy as no additional episodes occurred, will follow up as outpatient RUQ PAIN/RIGHT LOWER RIBS: -pain control -CT abd/pelvis showed No acute process in the abdomen or pelvis -U/S RUQ showed Cirrhosis. Normal gallbladder. No gallstones. -Liver enzymes stable SINUS TACHYCARDIA: improved -related to acute illness -on low dose Lopressor HYPERGLYCEMIA -likely related to prednisone/acute illness -HbA1c: 5.3% -monitor BSG LEFT SIDED ABDOMINAL PAIN: -secondary to cough -CT abd/pelvis showed No acute process in the abdomen or pelvis -resolved ALCOHOLIC CIRRHOSIS: -resumed spironolactone/Lasix -continue rifaximin and lactulose -has been moving bowels PANCYTOPENIA: -acute on chronic; secondary to acute illness and longstanding Liver Cirrhosis -all counts improving -no longer neutropenic -no sign of bleeding -Hematology consulted, appreciate recs -monitor CHRONIC HYPONATREMIA: -secondary to Liver cirrhosis -was on IV fluids initially -monitor ILIA on CKD Stage II: -Creatine on admission 1.4 -Cr improved to baseline -Lasix and spironolactone resumed -IV fluids stopped PHYSICAL EXAM ON DAY OF DISCHARGE: GENERAL: Patient is in no acute distress. HEENT: No acute trauma, normocephalic, mucous membranes moist, no nasal congestion, no scleral icterus, conjunctivae clear NECK: No stridor, trachea is midline. LUNGS: CTA bilaterally, no wheeze, no rhonchi, breath sounds equal. HEART: Without murmurs gallops or rubs, regular rate and rhythm. ABDOMEN: Soft, nontender, bowel sounds positive, no hepatosplenomegaly; mild pain between right lower ribs and epigastric with deep breathing EXTREMITIES: No cyanosis or edema, full range of motion of all the joints without pain or difficulty, no signs for acute trauma. NEUROLOGIC: Oriented x 3, no acute motor or sensory deficits, no focal weakness. SKIN: No rash, no jaundice, no diaphoresis. Total time spent on discharge = 37 This includes examination of the patient, discharge planning, medication reconciliation, and communication with other providers. Discharge Instructions see patient instructions
== END 2017-03-02 13:05 | disposition home or self-care (01) | DRG 193 ==
LOC: EDBD 21:38 → C.EDC 21:39 → ENRESERV 02-22 01:10 → C.2E 02-22 01:23 → EDBEDREQ 02-22 01:25 → ENRESERV 02-24 19:47 → C.MS2W 02-24 20:37
PROVIDERS: ADMIT Internal Medicine; ATTEND Internal Medicine
DX: J10.1 Influenza due to other identified influenza virus with other respiratory manifestations (principal); J96.91 Respiratory failure, unspecified with hypoxia; E87.1 Hypo-osmolality and hyponatremia; N17.9 Acute kidney failure, unspecified; T38.0X1A Poisoning by glucocorticoids and synthetic analogues, accidental (unintentional), initial encounter; K70.30 Alcoholic cirrhosis of liver without ascites; Z87.891 Personal history of nicotine dependence; A60.02 Herpesviral infection of other male genital organs; Z86.718 Personal history of other venous thrombosis and embolism; D69.6 Thrombocytopenia, unspecified; J20.8 Acute bronchitis due to other specified organisms; R10.11 Right upper quadrant pain; N18.2 Chronic kidney disease, stage 2 (mild); R73.9 Hyperglycemia, unspecified

== ENCOUNTER 2017-04-21 12:51 | Inpatient (IN) | payer OTHER ==
[~2017-04-21] VITALS: Ht 167.6 cm; Wt 89.7 kg
[~2017-04-21 12:51] MED LIST changes: +BENZ100C7 PO; +DICL1GEL12 TOP; -FERR1TAB23 PO; +NICO21DI35 TD
--- NOTE | 2017-04-21 13:28 | DIAGNOSTIC IMAGING REPORT ---
CHEST ONE VIEW PORTABLE CLINICAL HISTORY: CP eval for pna pain COMPARISON STUDY: 02/21/2017 FINDINGS: The bones soft tissues and hemidiaphragms are normal. The cardiomediastinal silhouette is normal. The lungs are clear. The pulmonary vasculature is normal. IMPRESSION: Negative chest. The above report was generated using voice recognition software. It may contain grammatical, syntax or spelling errors. Electronically signed by: Samir Garcia M.D. 04/21/2017 1:27 PM Dictated Date/Time: 04/21/2017 1:26 PM
[2017-04-21 13:39] LABS: HEMATOCRIT 42.1 % (42-52); HEMOGLOBIN 15.5 g/dL (14.0-18.0); MEAN CELL VOLUME 99.3 fL (80-100); MEAN CORPUSCULAR HEMOGLOBIN 36.6 pg (25-34); MEAN CORPUSCULAR HGB CONC 36.8 g/dl (32-36); RED CELL DISTRIBUTION WIDTH CV 14.1 % (11.5-14.5); RED CELL DISTRIBUTION WIDTH SD 50.6 fL (36.4-46.3); WHITE BLOOD COUNT 6.32 K/uL (4.8-10.8)
[2017-04-21 13:47] LABS: INR 1.1 (0.9-1.1); PTT PATIENT 25.1 SECONDS (21.0-31.0)
[2017-04-21 13:56] LABS: ALBUMIN 3.8 gm/dl (3.4-5.0); CALCIUM 9.8 mg/dl (8.5-10.1); CREATININE 1.18 mg/dl (0.60-1.40); POTASSIUM 4.4 mmol/L (3.5-5.1)
[2017-04-21 13:59] LABS: TOTAL PROTEIN 8.4 gm/dl (6.4-8.2)
[2017-04-21 14:04] LABS: MEAN PLATELET VOLUME 10.8 fL (7.4-10.4); PLATELET COUNT 66 K/uL (130-400)
[2017-04-21 14:05] LABS: BASO % 0.6 %; BASO ABS # 0.04 K/uL (0-0.2); EOS % 1.1 %; EOS ABS # 0.07 K/uL (0-0.5); IG# 0.01 K/uL (0.00-0.02); LYMPH % 12.7 %; MONO ABS # 0.76 K/uL (0.11-0.59); NEUT % 73.4 %; NEUT ABS # 4.64 K/uL (1.4-6.5)
[2017-04-21 15:00] VITALS: O2SAT 98; Ht 167.6 cm; Wt 89.7 kg
[2017-04-21] MEDS ORDERED: SERT25TA PO (15:01)
[2017-04-21] MEDS ORDERED: ONDANSETRON 4 MG TAB PO PRN (15:15)
[2017-04-21] MEDS ORDERED: FLUTICASONE PROPIONATE NA SPR 16 GM BTL NAE PRN (15:15)
[2017-04-21] MEDS ORDERED: POLYETHYLENE (MIRALAX) 17 GM PACK PO PRN (15:15)
[2017-04-21] MEDS ORDERED: ALBUTEROL HFA 8 GM INHALER INH PRN (15:15)
--- NOTE | 2017-04-21 15:17 | DIAGNOSTIC IMAGING REPORT ---
HEAD WITHOUT CONTRAST (CT) CT DOSE: 638.56 mGycm HISTORY: Mental status change dizzy eval for bleed TECHNIQUE: Multiaxial CT images of the head were performed without the use of intravenous contrast. A dose lowering technique was utilized adhering to the principles of ALARA. Comparison: 09/16/2016 Findings: The paranasal sinuses and mastoid air cells are clear. The calvarium and skull base are intact. The ventricles and sulci are within normal limits. There is no mass, hematoma, midline shift, or acute infarct. Impression: No acute intracranial abnormality. The above report was generated using voice recognition software. It may contain grammatical, syntax or spelling errors. Electronically signed by: Samir Garcia M.D. 04/21/2017 3:16 PM Dictated Date/Time: 04/21/2017 3:15 PM
[2017-04-21] MEDS ORDERED: VALA1TAB2 PO (15:20)
[2017-04-21 16:09] VITALS: BP 128/84; TEMP 36.8; O2SAT 97
--- NOTE | 2017-04-21 16:11 | History and Physical ---
History & Physical Date & Time of Service: Apr 21, 2017 at 15:21 Chief Complaint: Illness Primary Care Physician: Najma Garcia M.D. History of Present Illness Source: patient, clinic records, hospital records The patient is a 57-year-old man with alcoholic cirrhosis who presents with difficulties walking since 5 AM this morning. He reports waking up and having bowel movement, but not feeling quite right. He reports having some orange juice mixed with lactulose and immediate urgency to have another BM again which was associated with vomiting one time. There was no diarrhea noted and no blood in his stool. He has not felt ill recently. The vomitus was nonbloody. He reported feeling a dysequilibrium as he has in the past. He denies any weight gain or swelling in the abdomen or legs. He denies any changes in diuretics or diet. He is not on a fluid restriction as outpatient. He has chronic shortness of breath which has not changed. He denies any fevers chills or abdominal pain. He does have chronic visual changes which are unchanged. He denies any strokelike symptoms. He admits to some chest pain in his left anterior chest wall that felt like daggers, were not precipitated her triggered by anything, where fleeting, and were intermittent throughout the day. He denies any history of heart disease. He denies any associated symptoms of diaphoresis, palpitations, or shortness of breath cough. He is currently not having any chest pain. He reports tolerating p.o. He has a walker at home for time such as these when he has difficulty walking. He reports difficulty walking at least once weekly in the ER he is mentating well and is alert and appropriate with blood pressure 136/76 pulse 92 respirations 18 oxygenating 98% on room air. He is afebrile. Physical exam was unremarkable. A chest x-ray was negative a CT of his head was negative. Labs reveal a normal white count and H&H with a chronic thrombocytopenia, platelets of 60 6K. Sodium was 129 which is around his baseline and he had normal renal function. INR was 1.1 albumin was 3.8 urinalysis was negative liver function tests were unremarkable, ammonia level was 69. EKG revealed sinus rhythm with no ST elevations or other signs of ischemia. He was admitted to the hospital for further evaluation of his abnormal gait. Past Medical/Surgical History Medical Problems: (1) Alcoholic cirrhosis of liver with ascites Status: Chronic (2) Anemia Status: Chronic (3) Ascites due to alcoholic cirrhosis Status: Chronic (4) Bolus impaction of digestive tract Status: Resolved (5) Esophageal varices in alcoholic cirrhosis Permanent Comment: EGD 10/24/13-grade 1 varices EGD: 11/28/16 - grade 1 varices lower third esophagus Status: Chronic (6) Genital herpes Status: Chronic (7) Gynecomastia Status: Chronic (8) Hepatic encephalopathy Status: Chronic (9) History of portal vein thrombosis Status: Chronic (10) Portal hypertensive gastropathy Status: Chronic (11) Portal vein thrombosis Status: Chronic (12) Thrombocytopenia Status: Chronic Surgical Problems: (1) History of carpal tunnel surgery Status: Resolved (2) History of dental surgery Status: Resolved Family History Alcohol abuse SISTER Cancer MOTHER (Lymphoma) Diabetes mellitus FATHER Heart disease Hypertension Social History Smoking Status: Former Smoker (Quit 45 years ago) Smokeless Tobacco Use: Yes (Currently on NicoDerm) Alcohol Use: none Drug Use: none Marital Status: , in relationship Housing status: lives alone Occupational Status: unemployed Immunizations History of Influenza Vaccine: Yes Influenza Vaccine Date: Nov 21, 2016 History of Tetanus Vaccine?: Yes Tetanus Immunization Date: Mar 08, 2009 History of Pneumococcal: Yes Pneumococcal Date: Aug 01, 2016 History of Hepatitis B Vaccine: Yes Hepatitis Immunization Date: Mar 30, 2017 Allergies Coded Allergies: No Known Allergies (Unverified , 04/21/17) Home Medications Scheduled Cyanocobalamin (Vitamin B-12), 100 MCG PO QAM Folic Acid (Folic Acid), 1 MG PO QAM Furosemide (Lasix), 40 MG PO BID Lactulose (Lactulose), 20 GM PO QID Nicotine (Nicoderm Cq 21MG Patch), 1 PATCH TD DAILY Omeprazole (Prilosec), 40 MG PO QAM Rifaximin (Xifaxan), 550 MG PO BID Sertraline (Zoloft), 25 MG PO DAILY Spironolactone (Spironolactone), 200 MG PO QAM Spironolactone (Aldactone), 100 MG PO QPM Thiamine Hcl (Vitamin B-1), 100 MG PO QAM Valacyclovir Hcl (Valtrex), 1,000 MG PO DAILY Scheduled PRN Albuterol Hfa (Ventolin Hfa), 2 PUFFS INH Q4 PRN for SOB/Wheezing Diclofenac Sodium (Topical) (Voltaren 1% Top Gel), 1 APPLN TOP BID PRN for Fluticasone Propionate (Nasal) (Flonase Allergy Relief), 2 SPRAYS GUANAKO DAILY PRN for PRN\ Meclizine HCl (Meclizine HCl), 25 MG PO TID PRN for Dizziness or Vertigo Ondansetron Hcl (Zofran), 4 MG PO Q6 PRN for Nausea Review of Systems At least 10 systems were reviewed and negative except as indicated in HPI above. Physical Exam Vital Signs Date Time Temp Pulse Resp B/P (MAP) Pulse Ox O2 Delivery O2 Flow Rate FiO2 04/21/17 15:18 88 18 134/85 98 Room Air 04/21/17 13:05 104 04/21/17 12:57 36.8 92 18 136/76 98 Room Air General Appearance: WD/WN, no apparent distress Head: normocephalic, atraumatic Eyes: normal inspection, PERRL, EOMI, sclerae normal ENT: normal ENT inspection, hearing grossly normal, pharynx normal Neck: supple, no adenopathy, trachea midline Respiratory/Chest: chest non-tender, lungs clear, normal breath sounds, no respiratory distress, no accessory muscle use Cardiovascular: regular rate, rhythm, no edema, no gallop, no JVD, no murmur, normal peripheral pulses Abdomen/GI: normal bowel sounds, non tender, soft, no organomegaly Back: normal inspection Extremities/Musculoskelatal: normal inspection, no calf tenderness, no pedal edema, normal range of motion, non-tender, + pertinent finding (Strength 5/5 throughout) 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, no motor/sensory deficits, alert, normal mood/affect, oriented x 3 Skin: normal color, warm/dry, no rash Diagnostics Laboratory Results 04/21/17 13:25 Red Blood Count 4.24, Mean Corpuscular Volume 99.3, Mean Corpuscular Hemoglobin 36.6, Mean Corpuscular Hemoglobin Concent 36.8, Mean Platelet Volume 10.8, Neutrophils (%) (Auto) 73.4, Lymphocytes (%) (Auto) 12.7, Monocytes (%) (Auto) 12.0, Eosinophils (%) (Auto) 1.1, Basophils (%) (Auto) 0.6, Neutrophils # (Auto ) 4.64, Lymphocytes # (Auto) 0.80, Monocytes # (Auto) 0.76, Eosinophils # (Auto ) 0.07, Basophils # (Auto) 0.04 04/21/17 13:25 Test 04/21/17 13:05 04/21/17 13:25 Urine Color YELLOW Urine Appearance CLEAR (CLEAR) Urine pH 7.0 (4.5-7.5) Urine Specific [place] 1.005 (1.000-1.030) Urine Protein NEG (NEG) Urine Glucose (UA) NEG (NEG) Urine Ketones NEG (NEG) Urine Occult Blood NEG (NEG) Urine Nitrite NEG (NEG) Urine Bilirubin NEG (NEG) Urine Urobilinogen NEG (NEG) Urine Leukocyte Esterase NEG (NEG) White Blood Count 6.32 K/uL (4.8-10.8) Red Blood Count 4.24 M/uL (4.7-6.1) Hemoglobin 15.5 g/dL (14.0-18.0) Hematocrit 42.1 % (42-52) Mean Corpuscular Volume 99.3 fL (80-100) Mean Corpuscular Hemoglobin 36.6 pg (25-34) Mean Corpuscular Hemoglobin Concent 36.8 g/dl (32-36) Platelet Count 66 K/uL (130-400) Mean Platelet Volume 10.8 fL (7.4-10.4) Neutrophils (%) (Auto) 73.4 % Lymphocytes (%) (Auto) 12.7 % Monocytes (%) (Auto) 12.0 % Eosinophils (%) (Auto) 1.1 % Basophils (%) (Auto) 0.6 % Neutrophils # (Auto) 4.64 K/uL (1.4-6.5) Lymphocytes # (Auto) 0.80 K/uL (1.2-3.4) Monocytes # (Auto) 0.76 K/uL (0.11-0.59) Eosinophils # (Auto) 0.07 K/uL (0-0.5) Basophils # (Auto) 0.04 K/uL (0-0.2) RDW Standard Deviation 50.6 fL (36.4-46.3) RDW Coefficient of Variation 14.1 % (11.5-14.5) Immature Granulocyte % (Auto) 0.2 % Immature Granulocyte # (Auto) 0.01 K/uL (0.00-0.02) Platelet Estimate DECREASED Prothrombin Time 12.0 SECONDS (9.0-12.0) Prothromb Time International Ratio 1.1 (0.9-1.1) Activated Partial Thromboplast Time 25.1 SECONDS (21.0-31.0) Partial Thromboplastin Ratio 1.0 Anion Gap 9.0 mmol/L (3-11) Est Creatinine Clear Calc Drug Dose 73.6 ml/min Estimated GFR () 78.9 Estimated GFR (Non- 68.1 BUN/Creatinine Ratio 7.6 (10-20) Calcium Level 9.8 mg/dl (8.5-10.1) Magnesium Level 2.1 mg/dl (1.8-2.4) Total Bilirubin 2.5 mg/dl (0.2-1) Direct Bilirubin 0.8 mg/dl (0-0.2) Aspartate Amino Transf (AST/SGOT) 45 U/L (15-37) Alanine Aminotransferase (ALT/SGPT) 34 U/L (12-78) Alkaline Phosphatase 87 U/L (45-117) Ammonia 69.0 umol/L (11-32) Total Protein 8.4 gm/dl (6.4-8.2) Albumin 3.8 gm/dl (3.4-5.0) Lipase 153 U/L (73-393) Results Past 24 Hours Test 04/21/17 13:05 04/21/17 13:25 04/21/17 15:09 Range/Units Urine Color YELLOW Urine Appearance CLEAR CLEAR Urine pH 7.0 4.5-7.5 Urine Specific [place] 1.005 1.000-1.030 Urine Protein NEG NEG Urine Glucose (UA) NEG NEG Urine Ketones NEG NEG Urine Occult Blood NEG NEG Urine Nitrite NEG NEG Urine Bilirubin NEG NEG Urine Urobilinogen NEG NEG Urine Leukocyte Esterase NEG NEG White Blood Count 6.32 4.8-10.8 K/uL Red Blood Count 4.24 4.7-6.1 M/uL Hemoglobin 15.5 14.0-18.0 g/dL Hematocrit 42.1 42-52 % Mean Corpuscular Volume 99.3 80-100 fL Mean Corpuscular Hemoglobin 36.6 25-34 pg Mean Corpuscular Hemoglobin Concent 36.8 32-36 g/dl Platelet Count 66 130-400 K/uL Mean Platelet Volume 10.8 7.4-10.4 fL Neutrophils (%) (Auto) 73.4 % Lymphocytes (%) (Auto) 12.7 % Monocytes (%) (Auto) 12.0 % Eosinophils (%) (Auto) 1.1 % Basophils (%) (Auto) 0.6 % Neutrophils # (Auto) 4.64 1.4-6.5 K/uL Lymphocytes # (Auto) 0.80 1.2-3.4 K/uL Monocytes # (Auto) 0.76 0.11-0.59 K/uL Eosinophils # (Auto) 0.07 0-0.5 K/uL Basophils # (Auto) 0.04 0-0.2 K/uL RDW Standard Deviation 50.6 36.4-46.3 fL RDW Coefficient of Variation 14.1 11.5-14.5 % Immature Granulocyte % (Auto) 0.2 % Immature Granulocyte # (Auto) 0.01 0.00-0.02 K/uL Platelet Estimate DECREASED Prothrombin Time 12.0 9.0-12.0 SECONDS Prothromb Time International Ratio 1.1 0.9-1.1 Activated Partial Thromboplast Time 25.1 21.0-31.0 SECONDS Partial Thromboplastin Ratio 1.0 Sodium Level 129 136-145 mmol/L Potassium Level 4.4 3.5-5.1 mmol/L Chloride Level 96 98-107 mmol/L Carbon Dioxide Level 24 21-32 mmol/L Anion Gap 9.0 3-11 mmol/L Blood Urea Nitrogen 9 7-18 mg/dl Creatinine 1.18 0.60-1.40 mg/dl Est Creatinine Clear Calc Drug Dose 73.6 ml/min Estimated GFR () 78.9 Estimated GFR (Non- 68.1 BUN/Creatinine Ratio 7.6 10-20 Random Glucose 83 70-99 mg/dl Calcium Level 9.8 8.5-10.1 mg/dl Total Bilirubin 2.5 0.2-1 mg/dl Direct Bilirubin 0.8 0-0.2 mg/dl Aspartate Amino Transf (AST/SGOT) 45 15-37 U/L Alanine Aminotransferase (ALT/SGPT) 34 12-78 U/L Alkaline Phosphatase 87 45-117 U/L Ammonia 69.0 11-32 umol/L Total Protein 8.4 6.4-8.2 gm/dl Albumin 3.8 3.4-5.0 gm/dl Lipase 153 73-393 U/L Diagnostic Radiology HEAD WITHOUT CONTRAST (CT) CT DOSE: 638.56 mGycm HISTORY: Mental status change dizzy eval for bleed TECHNIQUE: Multiaxial CT images of the head were performed without the use of intravenous contrast. A dose lowering technique was utilized adhering to the principles of ALARA. Comparison: 09/16/2016 Findings: The paranasal sinuses and mastoid air cells are clear. The calvarium and skull base are intact. The ventricles and sulci are within normal limits. There is no mass, hematoma, midline shift, or acute infarct. Impression: No acute intracranial abnormality. CHEST ONE VIEW PORTABLE CLINICAL HISTORY: CP eval for pna pain COMPARISON STUDY: 02/21/2017 FINDINGS: The bones soft tissues and hemidiaphragms are normal. The cardiomediastinal silhouette is normal. The lungs are clear. The pulmonary vasculature is normal. IMPRESSION: Negative chest. EKG SR 96, no ST changes to suggest acute ischemia Impression Assessment and Plan 57-year-old patient with alcoholic cirrhosis 1. Dysequilibrium-cirrhosis appears compensated with normal liver function tests on lab work, no overt ascites on exam and no history of acute weight gain or swelling. SBP appears unlikely with soft benign abdomen along with no fevers or chills and compensated cirrhosis picture. Last paracentesis was 2 years ago, with patient managed well on current diuretic therapy. He does report this same type of disequilibrium frequently at home. He did have in response this morning to drinking orange juice mixed with lactulose, and did have urgency with bowel movement that he has not had in the past. He says to me that he is not sure how much longer he will be able to take the lactulose as it seems too strong. He is alert and appropriate with a ammonia level of 69 and a normal neuro exam limited by no gait assessment secondary to fall risk. Will have PT/OT evaluate him. Of note, doubt any new ascites as patient has been well-managed on diuretics for the last 2 years, with last paracentesis 2 years ago, no abdominal swelling, recent weight gain, new abdominal hernia, abdominal pain, new dyspnea, or early satiety. 2. Chest pain-no history of CAD, no active smoking, chest pain was fleeting and clinical picture not consistent with ACS. Normal EKG. Will obtain cardiac enzymes and monitor on telemetry overnight. Aspirin contraindicated in setting of thrombocytopenia. 3. Alcoholic cirrhosis-continue medical management with Lasix and Aldactone at current dosages, vitamin therapy, rifaximin 4. Tobacco use-continue NicoDerm patch. Counseled on risks of continuing to chew tobacco. 5. Chronic thrombocytopenia-2/2 underlying cirrhosis 6. hyponatremia-around baseline, likely 2/2 underlying cirrhosis. Not at level for fluid restriction, but will consider if continues to decline <125. DVT proph-SCDs, chemoprophylaxis contraindicated in setting of chronic thrombocytopenia. Full Code as discussed with him on admission. Dispo-telemetry Ct Healy DO [facility] Hospitalist Resuscitation Status VTE Prophylaxis Will order VTE Prophylaxis: Yes
[2017-04-21] MEDS: LACTULOSE SYRUP 20 GM/30 ML UDC PO SCH ×3 (16:58→20:31)
[2017-04-21] MEDS: FUROSEMIDE 40 MG TAB PO SCH (17:27)
[2017-04-21] MEDS: ONDANSETRON INJ 2 MG/ML 2 ML VIAL IV PRN ×2 (17:34→23:11)
[2017-04-21 19:25] VITALS: BP 122/80; PULSE 99; TEMP 36.3; O2SAT 99
--- NOTE | 2017-04-21 19:45 | EMERGENCY ROOM VISIT NOTE ---
History Report prepared by Stanley: Andrea Oreilly Under the Supervision of: Dr. Andrea Moore M.D. First contact with patient: 12:56 Chief Complaint: ABDOMINAL PAIN Stated Complaint: ILLNESS History of Present Illness The patient is a 57 year old male who presents to the Emergency Room with complaints of waxing and waning upper left-sided chest pain that began 8 hours ago. Patient describes the pain as sharp, brief pains. Patient has associated symptoms of a distended stomach and vomiting. Patient states that he still has a distended stomach in the ER. Patient denies diarrhea, melena, hematochezia, any changes in breathing, problems urinating, and leg swelling. Pertinent past medical history includes cirrhosis from alcoholic drinking. Patient denies drinking alcohol anymore. Patient states that his blood pressure "fluctuates from time to time". He adds that he has a history of elevated ammonia levels. Today he felt dizzy as if his ammonia level was elevated. Patient adds that he was signed up at [place] for a liver transplant but not anymore because his "liver is working better than before." Source of History: patient Onset: 8 hours ago Position: chest (left) Quality: sharp Timing: waxes/wanes Associated Symptoms: + vomiting, No melena, No hematochezia, No diarrhea, No urinary symptoms Note: Patient has a distended stomach. He denies changing in breathing and leg swelling. Review of Systems See HPI for pertinent positives & negatives. A total of 10 systems reviewed and were otherwise negative. Past Medical & Surgical Medical Problems: (1) Alcoh Dep Nec/Nos-Unspec (2) Alcohol Cirrhosis Liver (3) Alcoholic cirrhosis of liver with ascites (4) Altered mental status (5) Anemia (6) Ascites due to alcoholic cirrhosis (7) Bolus impaction of digestive tract (8) Esophageal varices in alcoholic cirrhosis (9) Generalized weakness (10) Genital herpes (11) Gynecomastia (12) Hepatic encephalopathy (13) History of portal vein thrombosis (14) Portal hypertensive gastropathy (15) Portal vein thrombosis (16) Respiratory failure (17) SOB (shortness of breath) (18) Thrombocytopenia (19) Tobacco Use Disorder Surgical Problems: (1) History of carpal tunnel surgery (2) History of dental surgery Family History Alcohol abuse SISTER Cancer MOTHER (Lymphoma) Diabetes mellitus FATHER Heart disease Hypertension Social History Smoking Status: Former Smoker Alcohol Use: none Drug Use: none Marital Status: , in relationship Housing Status: lives alone Occupation Status: unemployed Current/Historical Medications Scheduled Cyanocobalamin (Vitamin B-12), 100 MCG PO QAM Folic Acid (Folic Acid), 1 MG PO QAM Furosemide (Lasix), 40 MG PO BID Lactulose (Lactulose), 20 GM PO QID Nicotine (Nicoderm Cq 21MG Patch), 1 PATCH TD DAILY Omeprazole (Prilosec), 40 MG PO QAM Rifaximin (Xifaxan), 550 MG PO BID Sertraline (Zoloft), 25 MG PO DAILY Spironolactone (Spironolactone), 200 MG PO QAM Spironolactone (Aldactone), 100 MG PO QPM Thiamine Hcl (Vitamin B-1), 100 MG PO QAM Valacyclovir Hcl (Valtrex), 1,000 MG PO DAILY Scheduled PRN Albuterol Hfa (Ventolin Hfa), 2 PUFFS INH Q4 PRN for SOB/Wheezing Diclofenac Sodium (Topical) (Voltaren 1% Top Gel), 1 APPLN TOP BID PRN for Fluticasone Propionate (Nasal) (Flonase Allergy Relief), 2 SPRAYS GUANAKO DAILY PRN for PRN\\ Meclizine HCl (Meclizine HCl), 25 MG PO TID PRN for Dizziness or Vertigo Ondansetron Hcl (Zofran), 4 MG PO Q6 PRN for Nausea Allergies Coded Allergies: No Known Allergies (Unverified , 04/21/17) Physical Exam Vital Signs Date Time Temp Pulse Resp B/P (MAP) Pulse Ox O2 Delivery O2 Flow Rate FiO2 04/21/17 13:05 104 04/21/17 12:57 36.8 92 18 136/76 98 Room Air Physical Exam Constitutional: Vital signs reviewed. Eyes: Pupils are equal round reactive to light. Conjunctiva are noninjected. ENT: Pharynx is clear without erythema or exudate. Mucous membranes are moist. Neck supple without meningeal signs. Respiratory: Clear to auscultation bilaterally. Breath sounds are equal bilaterally. Cardiovascular: Regular rate and rhythm. No rubs or gallops. GI: Soft, nondistended mild epigastric tenderness. No guarding. Bowel sounds are present. Musculoskeletal: No peripheral edema. No lower extremity tenderness. Integumentary: No cyanosis. Neurologic: The patient is awake and alert. Cranial nerves II-XII are intact. Motor is 5 out of 5 all extremities. Sensation is intact to light touch all extremities. Normal speech. Resting tremor. No pronator drift. No asterixis. No limb ataxia. Psychiatric: Slightly anxious. Medical Decision & Procedures ER Provider Diagnostic Interpretation: Radiology results as stated below per my review and the radiologist's interpretation: CHEST ONE VIEW PORTABLE CLINICAL HISTORY: CP eval for pna pain COMPARISON STUDY: 02/21/2017 FINDINGS: The bones soft tissues and hemidiaphragms are normal. The cardiomediastinal silhouette is normal. The lungs are clear. The pulmonary vasculature is normal. IMPRESSION: Negative chest. The above report was generated using voice recognition software. It may contain grammatical, syntax or spelling errors. Electronically signed by: Samir Garcia M.D. 04/21/2017 1:27 PM HEAD WITHOUT CONTRAST (CT) CT DOSE: 638.56 mGycm HISTORY: Mental status change dizzy eval for bleed TECHNIQUE: Multiaxial CT images of the head were performed without the use of intravenous contrast. A dose lowering technique was utilized adhering to the principles of ALARA. Comparison: 09/16/2016 Findings: The paranasal sinuses and mastoid air cells are clear. The calvarium and skull base are intact. The ventricles and sulci are within normal limits. There is no mass, hematoma, midline shift, or acute infarct. Impression: No acute intracranial abnormality. The above report was generated using voice recognition software. It may contain grammatical, syntax or spelling errors. Electronically signed by: Samir Garcia M.D. 04/21/2017 3:16 PM Laboratory Results 04/21/17 13:25 Red Blood Count 4.24, Mean Corpuscular Volume 99.3, Mean Corpuscular Hemoglobin 36.6, Mean Corpuscular Hemoglobin Concent 36.8, Mean Platelet Volume 10.8, Neutrophils (%) (Auto) 73.4, Lymphocytes (%) (Auto) 12.7, Monocytes (%) (Auto) 12.0, Eosinophils (%) (Auto) 1.1, Basophils (%) (Auto) 0.6, Neutrophils # (Auto ) 4.64, Lymphocytes # (Auto) 0.80, Monocytes # (Auto) 0.76, Eosinophils # (Auto ) 0.07, Basophils # (Auto) 0.04 04/21/17 13:25 Test 04/21/17 13:05 04/21/17 13:25 Urine Color YELLOW Urine Appearance CLEAR (CLEAR) Urine pH 7.0 (4.5-7.5) Urine Specific [place] 1.005 (1.000-1.030) Urine Protein NEG (NEG) Urine Glucose (UA) NEG (NEG) Urine Ketones NEG (NEG) Urine Occult Blood NEG (NEG) Urine Nitrite NEG (NEG) Urine Bilirubin NEG (NEG) Urine Urobilinogen NEG (NEG) Urine Leukocyte Esterase NEG (NEG) White Blood Count 6.32 K/uL (4.8-10.8) Red Blood Count 4.24 M/uL (4.7-6.1) Hemoglobin 15.5 g/dL (14.0-18.0) Hematocrit 42.1 % (42-52) Mean Corpuscular Volume 99.3 fL (80-100) Mean Corpuscular Hemoglobin 36.6 pg (25-34) Mean Corpuscular Hemoglobin Concent 36.8 g/dl (32-36) Platelet Count 66 K/uL (130-400) Mean Platelet Volume 10.8 fL (7.4-10.4) Neutrophils (%) (Auto) 73.4 % Lymphocytes (%) (Auto) 12.7 % Monocytes (%) (Auto) 12.0 % Eosinophils (%) (Auto) 1.1 % Basophils (%) (Auto) 0.6 % Neutrophils # (Auto) 4.64 K/uL (1.4-6.5) Lymphocytes # (Auto) 0.80 K/uL (1.2-3.4) Monocytes # (Auto) 0.76 K/uL (0.11-0.59) Eosinophils # (Auto) 0.07 K/uL (0-0.5) Basophils # (Auto) 0.04 K/uL (0-0.2) RDW Standard Deviation 50.6 fL (36.4-46.3) RDW Coefficient of Variation 14.1 % (11.5-14.5) Immature Granulocyte % (Auto) 0.2 % Immature Granulocyte # (Auto) 0.01 K/uL (0.00-0.02) Platelet Estimate DECREASED Prothrombin Time 12.0 SECONDS (9.0-12.0) Prothromb Time International Ratio 1.1 (0.9-1.1) Activated Partial Thromboplast Time 25.1 SECONDS (21.0-31.0) Partial Thromboplastin Ratio 1.0 Anion Gap 9.0 mmol/L (3-11) Est Creatinine Clear Calc Drug Dose 73.6 ml/min Estimated GFR () 78.9 Estimated GFR (Non- 68.1 BUN/Creatinine Ratio 7.6 (10-20) Calcium Level 9.8 mg/dl (8.5-10.1) Magnesium Level 2.1 mg/dl (1.8-2.4) Total Bilirubin 2.5 mg/dl (0.2-1) Direct Bilirubin 0.8 mg/dl (0-0.2) Aspartate Amino Transf (AST/SGOT) 45 U/L (15-37) Alanine Aminotransferase (ALT/SGPT) 34 U/L (12-78) Alkaline Phosphatase 87 U/L (45-117) Ammonia 69.0 umol/L (11-32) Troponin I < 0.015 ng/ml (0-0.045) Total Protein 8.4 gm/dl (6.4-8.2) Albumin 3.8 gm/dl (3.4-5.0) Lipase 153 U/L (73-393) Laboratory results as reviewed by me. ECG Per My Interpretation Indication: chest pain Rate (beats per minute): 96 Rhythm: normal sinus Findings: no ectopy, other (No ST elevations, low voltage QRS) ED Course 1258: The patient was evaluated in room B2. A complete history and physical exam was performed. 1540: I discussed the patient's test results with him. Patient states that he still feels dizzy and nauseated. [facility] Patient was agreeable to the treatment plan. Medical Decision This is a 57-year-old male who presents with chest pain and abdominal discomfort with dizziness. Differential diagnosis includes hepatic encephalopathy, hyperammonemia, pleurisy, pneumonia, WI, hepatitis. I did perform a limited focused review of portions of the patient's old chart on the electronic medical record. The patient was admitted in February for influenza. Patient had abdominal pain at the time and had an unremarkable CT Abd/Pelvis. I did evaluate the patient as noted above. The patient is presenting with left- sided chest pain which is intermittent since yesterday. He currently has no chest pain. He also states that he feels dizzy and off balance as if his ammonia was elevated. He is neurologically intact. He has a resting tremor but no asterixis. IV access was established. The patient was placed on a continuous hospital monitor. I did order and personally review the patient's 12- lead EKG and chest x-ray as described above. I did order and review the patient 's blood work as noted in the electronic medical record. His ammonia is 69. He does have chronic thrombocytopenia. He also has some hyponatremia. I did order a CT of the head. I did review the images myself as well as the radiology report as described above. I did discuss the test results with the patient. He did have difficulty walking to the bathroom. He will require hospitalization for further care and evaluation. I did discuss the case with the hospitalist and outpatient case manager. Medication Reconcilliation Current Medication List: was personally reviewed by me Blood Pressure Screening Patient's blood pressure: Elevated blood pressure Blood pressure disposition: Elevated BP felt to be situational Consults Time Called: 1420 Consulting Physician: Dr. Healy - [facility] Returned Call: [address] Healy of [facility]. We discussed the patient and his results. The patient will be further evaluated by Dr. Healy. Impression Primary Impression: Dizziness Additional Impressions: Hyponatremia Hyperammonemia Left sided chest pain Thrombocytopenia Scribe Attestation The scribe's documentation has been prepared under my direct and personally reviewed by me in its entirety. I confirm that the note above accurately reflects all work, treatment, procedures, and medical decision making performed by me. Departure Information Dispostion Being Evaluated By Hospitalist Referrals Najma Garcia M.D. (PCP) Forms Call Back Authorization, HOME CARE DOCUMENTATION FORM, IMPORTANT VISIT INFORMATION Patient Instructions My [facility] Health Problem Qualifiers
[2017-04-21 20:00] VITALS: O2SAT 97
[2017-04-21] MEDS: RIFAXIMIN TAB 550 MG TAB PO SCH (20:31)
[2017-04-21] MEDS: SPIRONOLACTONE 100 MG TAB PO SCH (20:31)
[2017-04-21 23:35] VITALS: BP 108/64; PULSE 84; TEMP 36.6; O2SAT 97
[2017-04-22] VITALS (10 sets, daily range): BP systolic 100–147; BP diastolic 59–82; PULSE 70–87; TEMP 36.4–36.9; O2SAT 93–98
[2017-04-22] MEDS ORDERED: MECLIZINE HCL 12.5 MG TAB PO PRN (05:45)
[2017-04-22 06:43] LABS: CALCIUM 8.7 mg/dl (8.5-10.1); CREATININE 1.16 mg/dl (0.60-1.40); POTASSIUM 3.9 mmol/L (3.5-5.1)
[2017-04-22] MEDS: LACTULOSE SYRUP 20 GM/30 ML UDC PO SCH ×4 (08:05→20:53)
[2017-04-22] MEDS: THIAMINE HCL 100 MG TAB PO SCH (08:05)
[2017-04-22] MEDS: CYANOCOBALAMIN 100 MCG TAB (VIT B-12) PO SCH (08:05)
[2017-04-22] MEDS: SERTRALINE HCL 50 MG TAB PO SCH (08:05)
[2017-04-22] MEDS: FUROSEMIDE 40 MG TAB PO SCH ×2 (08:54→16:48)
[2017-04-22] MEDS: RIFAXIMIN TAB 550 MG TAB PO SCH ×2 (08:54→20:53)
[2017-04-22] MEDS: SPIRONOLACTONE 100 MG TAB PO SCH ×2 (08:54→20:53)
[2017-04-22] MEDS: PANTOprazole SOD 40 MG TAB PO SCH (08:54)
[2017-04-22] MEDS: NICOTINE 21 MG/24 HR TDSY TD SCH (08:54)
--- NOTE | 2017-04-22 09:25 | Progress Note ---
Internal Med Progress Note Date of Service: Apr 22, 2017. Provider Documentation: SUBJECTIVE: Seen and examined at bedside Reports feeling nauseous this morning but denies vomiting (Has chronic nausea intermittently) Denies any chest pain, SOB Has some dizziness Denies abd pain, diarrhea Also reports chronic Vertigo No other complaints Reports being compliant with medications Denies recent alcohol use OBJECTIVE: Vital Signs-as noted below Physical Exam: Vitals signs as noted above General Appearance:Moderately built and nourished, no apparent distress Head: normocephalic, Atraumatic Eyes: normal inspection, EOMI, PERRL Neck: supple, Trachea midline Respiratory/Chest: Normal breath sounds, CTA Cardiovascular: S1, S2, No murmur Abdomen/GI:Soft, Non tender, Bowel sounds present Extremities/Musculoskelatal:normal inspection, no edema Neurologic/Psych:AAOX3, grossly no focal neurological deficits Skin: normal color, warm Lab data as noted below. ASSESSMENT & PLAN: Patient is a 57 yr old patient with alcoholic cirrhosis presents with Dysequilibrium and chest pain Dysequilibrium: Likely secondary to Vertigo CT head:No acute intracranial abnormality Reports having Vertigo since many years Using Meclizine PRN which helps Denies weakness in extremities PT/OT Hyponatremia and hyperammonemia could be contributing Chest pain: No H/O CAD EKG: No signs of Ischemia Chest pain resolved par patient Troponin X 2: negative Aspirin contraindicated in setting of thrombocytopenia. Chronic Hyponatremia: Likely secondary to Cirrhosis Gentle IV Fluids given Monitor Sodium levels Chronic Thrombocytopenia: Likely secondary to Cirrhosis No active bleeding issues Monitor Platelets Hb stable Alcoholic Cirrhosis: No signs of decompensation Denies any recent alcohol use Has been complaints with meds Continue Diuretics, Lactulose, Rifaximin Follows with as outpatient Chronic Vertigo: Meclizine PRN May need follow up with ENT as outpatient Tobacco use: Counseled to quit smoking Nicotine Patch DVT Px: SCDs Re:thrombocytopenia Code Status: Full Code Disposition: Expect to discharge home when stable PT/OT Vital Signs: Date Time Temp Pulse Resp B/P (MAP) Pulse Ox O2 Delivery O2 Flow Rate FiO2 04/22/17 08:00 Room Air 04/22/17 07:34 36.6 74 20 126/78 (94) 98 Room Air 04/22/17 05:46 87 147/82 (103) 04/22/17 04:00 97 Room Air 3/18/18 03:40 36.7 70 18 100/59 (73) 96 Room Air 04/22/17 00:00 97 Room Air 04/21/17 23:35 36.6 84 16 108/64 (79) 97 Room Air 04/21/17 20:00 97 Room Air 04/21/17 19:25 36.3 99 22 122/80 (94) 99 Room Air 04/21/17 16:09 36.8 20 128/84 (99) 97 Room Air 04/21/17 15:18 88 18 134/85 98 Room Air 04/21/17 15:00 98 Room Air 04/21/17 13:05 104 04/21/17 12:57 36.8 92 18 136/76 98 Room Air Lab Results: Results Past 24 Hours Test 04/21/17 13:05 04/21/17 13:25 04/21/17 22:16 04/22/17 06:10 Range/Units Urine Color YELLOW Urine Appearance CLEAR CLEAR Urine pH 7.0 4.5-7.5 Urine Specific [place] 1.005 1.000-1.030 Urine Protein NEG NEG Urine Glucose (UA) NEG NEG Urine Ketones NEG NEG Urine Occult Blood NEG NEG Urine Nitrite NEG NEG Urine Bilirubin NEG NEG Urine Urobilinogen NEG NEG Urine Leukocyte Esterase NEG NEG White Blood Count 6.32 4.8-10.8 K/uL Red Blood Count 4.24 4.7-6.1 M/uL Hemoglobin 15.5 14.0-18.0 g/dL Hematocrit 42.1 42-52 % Mean Corpuscular Volume 99.3 80-100 fL Mean Corpuscular Hemoglobin 36.6 25-34 pg Mean Corpuscular Hemoglobin Concent 36.8 32-36 g/dl Platelet Count 66 130-400 K/uL Mean Platelet Volume 10.8 7.4-10.4 fL Neutrophils (%) (Auto) 73.4 % Lymphocytes (%) (Auto) 12.7 % Monocytes (%) (Auto) 12.0 % Eosinophils (%) (Auto) 1.1 % Basophils (%) (Auto) 0.6 % Neutrophils # (Auto) 4.64 1.4-6.5 K/uL Lymphocytes # (Auto) 0.80 1.2-3.4 K/uL Monocytes # (Auto) 0.76 0.11-0.59 K/uL Eosinophils # (Auto) 0.07 0-0.5 K/uL Basophils # (Auto) 0.04 0-0.2 K/uL RDW Standard Deviation 50.6 36.4-46.3 fL RDW Coefficient of Variation 14.1 11.5-14.5 % Immature Granulocyte % (Auto) 0.2 % Immature Granulocyte # (Auto) 0.01 0.00-0.02 K/uL Platelet Estimate DECREASED Prothrombin Time 12.0 9.0-12.0 SECONDS Prothromb Time International Ratio 1.1 0.9-1.1 Activated Partial Thromboplast Time 25.1 21.0-31.0 SECONDS Partial Thromboplastin Ratio 1.0 Sodium Level 129 125 136-145 mmol/L Potassium Level 4.4 3.9 3.5-5.1 mmol/L Chloride Level 96 93 98-107 mmol/L Carbon Dioxide Level 24 22 21-32 mmol/L Anion Gap 9.0 9.0 3-11 mmol/L Blood Urea Nitrogen 9 13 7-18 mg/dl Creatinine 1.18 1.16 0.60-1.40 mg/dl Est Creatinine Clear Calc Drug Dose 73.6 73.6 ml/min Estimated GFR () 78.9 80.6 Estimated GFR (Non- 68.1 69.5 BUN/Creatinine Ratio 7.6 11.5 10-20 Random Glucose 83 124 70-99 mg/dl Calcium Level 9.8 8.7 8.5-10.1 mg/dl Magnesium Level 2.1 2.0 1.8-2.4 mg/dl Total Bilirubin 2.5 0.2-1 mg/dl Direct Bilirubin 0.8 0-0.2 mg/dl Aspartate Amino Transf (AST/SGOT) 45 15-37 U/L Alanine Aminotransferase (ALT/SGPT) 34 12-78 U/L Alkaline Phosphatase 87 45-117 U/L Ammonia 69.0 101.4 11-32 umol/L Troponin I < 0.015 < 0.015 0-0.045 ng/ml Total Protein 8.4 6.4-8.2 gm/dl Albumin 3.8 3.4-5.0 gm/dl Lipase 153 73-393 U/L
[2017-04-22] MEDS ORDERED: SODIUM CHLORIDE 0.9% 1000ML 500 ML IV ONE (09:30)
[2017-04-22] MEDS: ONDANSETRON INJ 2 MG/ML 2 ML VIAL IV PRN (09:53)
[2017-04-23] VITALS: O2SAT 97
[2017-04-23 03:40] VITALS: BP 125/70; PULSE 76; TEMP 36.5; O2SAT 97
[2017-04-23 05:30] LABS: HEMATOCRIT 40.1 % (42-52); HEMOGLOBIN 14.8 g/dL (14.0-18.0); MEAN CELL VOLUME 99.3 fL (80-100); MEAN CORPUSCULAR HEMOGLOBIN 36.6 pg (25-34); MEAN CORPUSCULAR HGB CONC 36.9 g/dl (32-36); MEAN PLATELET VOLUME 11.1 fL (7.4-10.4); PLATELET COUNT 64 K/uL (130-400); RED CELL DISTRIBUTION WIDTH CV 13.9 % (11.5-14.5); RED CELL DISTRIBUTION WIDTH SD 50.3 fL (36.4-46.3); WHITE BLOOD COUNT 6.14 K/uL (4.8-10.8)
[2017-04-23 05:48] LABS: CALCIUM 8.8 mg/dl (8.5-10.1); CREATININE 1.19 mg/dl (0.60-1.40); POTASSIUM 4.2 mmol/L (3.5-5.1)
[2017-04-23 07:25] VITALS: BP 126/76; PULSE 76; TEMP 37.1; O2SAT 96
[2017-04-23] MEDS: LACTULOSE SYRUP 20 GM/30 ML UDC PO SCH ×4 (08:11→20:25)
[2017-04-23] MEDS: THIAMINE HCL 100 MG TAB PO SCH (08:12)
[2017-04-23] MEDS: RIFAXIMIN TAB 550 MG TAB PO SCH ×2 (08:13→20:25)
[2017-04-23] MEDS: SPIRONOLACTONE 100 MG TAB PO SCH ×2 (08:13→20:25)
[2017-04-23] MEDS: PANTOprazole SOD 40 MG TAB PO SCH (08:13)
[2017-04-23] MEDS: FUROSEMIDE 40 MG TAB PO SCH ×2 (08:14→17:13)
[2017-04-23] MEDS: CYANOCOBALAMIN 100 MCG TAB (VIT B-12) PO SCH (08:14)
[2017-04-23] MEDS: NICOTINE 21 MG/24 HR TDSY TD SCH (08:14)
[2017-04-23] MEDS: SERTRALINE HCL 50 MG TAB PO SCH (08:15)
[2017-04-23] MEDS: ONDANSETRON INJ 2 MG/ML 2 ML VIAL IV PRN (09:06)
--- NOTE | 2017-04-23 09:36 | Progress Note ---
Internal Med Progress Note Date of Service: Apr 23, 2017. Provider Documentation: SUBJECTIVE: Seen and examined at bedside Reports persistent nausea, denies vomiting, abd pain Denies any chest pain, SOB reports chronic Vertigo but denies change with position No other complaints OBJECTIVE: Vital Signs-as noted below Physical Exam: Vitals signs as noted above General Appearance:Moderately built and nourished, no apparent distress Head: normocephalic, Atraumatic Eyes: normal inspection, EOMI, PERRL Neck: supple, Trachea midline Respiratory/Chest: Normal breath sounds, CTA Cardiovascular: S1, S2, No murmur Abdomen/GI:Soft, Non tender, Bowel sounds present Extremities/Musculoskelatal:normal inspection, no edema Neurologic/Psych:AAOX3, grossly no focal neurological deficits Skin: normal color, warm Lab data as noted below. ASSESSMENT & PLAN: Patient is a 57 yr old patient with alcoholic cirrhosis presents with Dysequilibrium and chest pain Dysequilibrium: Likely secondary to Vertigo CT head:No acute intracranial abnormality Reports having Vertigo since many years Denies any change with position Using Meclizine PRN which helps Denies weakness in extremities PT/OT Hyponatremia and hyperammonemia could be contributing Chest pain: Resolved No H/O CAD EKG: No signs of Ischemia Troponin X 2: negative Aspirin contraindicated in setting of thrombocytopenia. Chronic Hyponatremia: Likely secondary to Cirrhosis S/P IV Fluids Monitor Sodium levels improving Chronic Thrombocytopenia: Likely secondary to Cirrhosis No active bleeding issues Monitor Platelets Hb stable Alcoholic Cirrhosis: No signs of decompensation Denies any recent alcohol use Has been complaints with meds Continue Diuretics, Lactulose, Rifaximin Follows with as outpatient Check KUB for persistent nausea Consulted GI for Input Chronic Vertigo: Denies change with position Meclizine PRN May need follow up with ENT as outpatient Tobacco use: Counseled to quit smoking Nicotine Patch DVT Px: SCDs Re:thrombocytopenia Code Status: Full Code Disposition: Expect to discharge home when stable PT/OT Vital Signs: Date Time Temp Pulse Resp B/P (MAP) Pulse Ox O2 Delivery O2 Flow Rate FiO2 04/23/17 08:00 Room Air 04/23/17 07:25 37.1 76 20 126/76 (93) 96 Room Air 04/23/17 04:00 Room Air 04/23/17 03:40 36.5 76 17 125/70 (88) 97 Room Air 04/23/17 00:00 97 Room Air 04/22/17 23:40 36.8 75 20 122/73 (89) 97 Room Air 04/22/17 20:00 97 Room Air 04/22/17 19:11 36.9 72 20 112/67 (82) 97 Room Air 04/22/17 16:00 Room Air 04/22/17 15:28 36.4 77 20 115/73 (87) 93 Room Air 04/22/17 12:00 Room Air 04/22/17 11:48 36.7 79 16 118/62 (80) 98 Room Air Lab Results: Results Past 24 Hours Test 04/23/17 05:18 04/23/17 05:19 Range/Units Ammonia 75.0 11-32 umol/L White Blood Count 6.14 4.8-10.8 K/uL Red Blood Count 4.04 4.7-6.1 M/uL Hemoglobin 14.8 14.0-18.0 g/dL Hematocrit 40.1 42-52 % Mean Corpuscular Volume 99.3 80-100 fL Mean Corpuscular Hemoglobin 36.6 25-34 pg Mean Corpuscular Hemoglobin Concent 36.9 32-36 g/dl RDW Standard Deviation 50.3 36.4-46.3 fL RDW Coefficient of Variation 13.9 11.5-14.5 % Platelet Count 64 130-400 K/uL Mean Platelet Volume 11.1 7.4-10.4 fL Sodium Level 129 136-145 mmol/L Potassium Level 4.2 3.5-5.1 mmol/L Chloride Level 97 98-107 mmol/L Carbon Dioxide Level 25 21-32 mmol/L Anion Gap 7.0 3-11 mmol/L Blood Urea Nitrogen 14 7-18 mg/dl Creatinine 1.19 0.60-1.40 mg/dl Est Creatinine Clear Calc Drug Dose 71.7 ml/min Estimated GFR () 78.1 Estimated GFR (Non- 67.4 BUN/Creatinine Ratio 11.4 10-20 Random Glucose 99 70-99 mg/dl Calcium Level 8.8 8.5-10.1 mg/dl
[2017-04-23] MEDS ORDERED: PROMETHAZINE HCL INJ 12.5 MG in SODIUM CHLORIDE 0.9% 50ML 50 ML IV STA (10:27)
--- NOTE | 2017-04-23 10:45 | DIAGNOSTIC IMAGING REPORT ---
KUB HISTORY: Generalized abdominal pain. persistent nausea COMPARISON: Chest and abdominal series 07/22/2013. FINDINGS: The bowel gas pattern is unremarkable. There are no dilated loops of small bowel to suggest an obstruction. No renal calculi. No ureteral calculi. Calcifications in the deep pelvis likely represent phleboliths. No change in the mild bilateral femoral head deformity, left greater than right. No pneumoperitoneum or pneumatosis. IMPRESSION: Unremarkable bowel gas pattern. No evidence for bowel obstruction. Electronically signed by: Ángel Wilson M.D. 04/23/2017 10:44 AM Dictated Date/Time: 04/23/2017 10:42 AM
[2017-04-23 11:06] VITALS: BP 126/76; PULSE 76; TEMP 37.1; O2SAT 96
[2017-04-23 11:36] VITALS: BP 123/75; PULSE 72; TEMP 36.6; O2SAT 96
--- NOTE | 2017-04-23 12:17 | Gastrointestinal Consultation ---
Gastrointestinal Consultation Date of Consultation: Apr 23, 2017 Attending Physician: Darshan Arevalo Consulting Physician: Harjinder Napoles Reason for Consultation: ETOH cirrhosis, nausea History of Present Illness Patient is a 57 year old male with hx of ETOH cirrhosis, presented to ED w c/o weakness, n/v. He does have chronic nausea at baseline but not this bad per his report. Mild abd pain and loose stools but had been on Lactulose for hx of encephalopathy. He denies any blood in emesis or stools. He denies any sick contact. Does feel also to have vertigo. No CP, SOB. Reports weight is down as he's not eating much, and doesn't leg edema. No jaundice. Labs on eval quite at baseline - no leukocytosis, no anemia, + thrombocytopenia at baseline. Na 120s with known chronic hyponatremia. No increased BUN/Cr. LFTs showed elevated Tbili also at baseline. Mild AST elevation. CXR and Head CT negative. Last EGD/Colonoscopy 11/201617. Grade I varices. + colon polyps (Tubular adenoma and hyperplastic). EGD to be repeated in 3 yrs, Colonoscopy due in 6 months to eval piecemeal polyp Past Medical/Surgical History Medical Problems: (1) Abdominal pain Status: Acute (2) Dizziness Status: Acute (3) Generalized weakness Status: Acute (4) Hepatic insufficiency Status: Acute (5) History of cirrhosis Status: Acute (6) Hyperammonemia Status: Acute (7) Hyponatremia Status: Acute (8) Hypoxia Status: Acute (9) Left sided chest pain Status: Acute (10) Leukopenia Status: Acute (11) Lyme disease Status: Acute (12) Right arm numbness Status: Acute (13) Thrombocytopenia Status: Chronic (14) URI (upper respiratory infection) Status: Acute (15) Vertigo Status: Acute Past Medical History: See above; anemia, genital herpes, gynecomastia, hepatic encephalopathy, PVT, Past Surgical History: Carpal tunnel, dental surgery Family History Alcohol abuse SISTER Cancer MOTHER (Lymphoma) Diabetes mellitus FATHER Heart disease Hypertension Social History Smoking Status: Former Smoker Alcohol Use: none Drug Use: none Marital Status: , in relationship Housing Status: lives alone Occupation Status: unemployed Allergies Coded Allergies: No Known Allergies (Unverified , 04/21/17) Current Medications Home Meds and Scripts Medications Dose Route/Sig Max Daily Dose Days Date Category Dose Instructions Valtrex (Valacyclovir Hcl) 1 Gm Tab 1,000 Mg PO DAILY 04/21/17 Reported Zoloft (Sertraline HCl) 25 Mg Tab 25 Mg PO DAILY 04/21/17 Reported Voltaren 1% Top Gel (Diclofenac Sodium (Topical)) 1 % Gel 1 Appln TOP BID PRN 02/21/17 Reported Nicoderm Cq 21MG Patch (Nicotine) 21 Mg/24 Hr Dis 1 Patch TD DAILY 02/21/17 Reported Aldactone (Spironolactone) 100 Mg Tab 100 Mg PO QPM 12/07/16 Reported TAKE IN AFTERNOON Meclizine HCl 25 Mg Tab 25 Mg PO TID PRN 12/07/16 Reported Prilosec (Omeprazole) 40 Mg Cap 40 Mg PO QAM 11/22/16 Reported Ventolin Hfa (Albuterol) 200 Puffs/99651 Mcg Aers 2 Puffs INH Q4 PRN 05/01/16 Reported Flonase Allergy Relief (Fluticasone Propionate (Nasal)) 50 Mcg/Act Spr 2 Sprays GUANAKO DAILY PRN 06/07/15 Reported Zofran (Ondansetron HCl) 4 Mg Tab 4 Mg PO Q6 PRN 11/12/14 Reported Lactulose 20 Gm/30 Ml Syrp 20 Gm PO QID 11/12/14 Reported HOLD AFTER 3 BMS A DAY. Vitamin B-1 (Thiamine HCl) 100 Mg Tab 100 Mg PO QAM 04/15/14 Reported Spironolactone 100 Mg Tab 200 Mg PO QAM 04/15/14 Reported Lasix (Furosemide) 40 Mg Tab 40 Mg PO BID 04/04/14 Reported Vitamin B-12 (Cyanocobalamin) 100 Mcg Tab 100 Mcg PO QAM 04/04/14 Reported Xifaxan (Rifaximin) 550 Mg Tab 550 Mg PO BID 03/26/14 Reported Folic Acid 1 Mg Tab 1 Mg PO QAM 03/26/14 Reported Review of Systems Constitutional: + weakness, No fever, No chills Respiratory: No cough, No shortness of breath Cardiac: No chest pain Abdomen: No pain, No nausea, No vomiting, No GI bleeding Neuro: + vertigo Skin: No rash, No itch, No jaundice Physical Exam Date Time Temp Pulse Resp B/P (MAP) Pulse Ox O2 Delivery O2 Flow Rate FiO2 04/23/17 11:36 36.6 72 17 123/75 (91) 96 Room Air 04/23/17 11:06 37.1 76 20 96 04/23/17 08:00 Room Air 04/23/17 07:25 37.1 76 20 126/76 (93) 96 Room Air 04/23/17 04:00 Room Air 04/23/17 03:40 36.5 76 17 125/70 (88) 97 Room Air 04/23/17 00:00 97 Room Air 04/22/17 23:40 36.8 75 20 122/73 (89) 97 Room Air 04/22/17 20:00 97 Room Air 04/22/17 19:11 36.9 72 20 112/67 (82) 97 Room Air 04/22/17 16:00 Room Air 04/22/17 15:28 36.4 77 20 115/73 (87) 93 Room Air General Appearance: + mild distress (seen at commode having nausea, no vomiting ), + cachetic Eyes: normal inspection, PERRL, EOMI Neck: supple, no JVD, trachea midline Respiratory/Chest: normal breath sounds, no respiratory distress, no accessory muscle use Cardiovascular: regular rate, rhythm, no gallop, no murmur Abdomen: normal bowel sounds, non tender, soft Extremities: normal inspection, no pedal edema, no calf tenderness Neurologic/Psych: alert, normal mood/affect, oriented x 3 Skin: normal color, no jaundice, no rash Laboratory Results Last 24 Hours Test 04/23/17 05:18 04/23/17 05:19 Ammonia 75.0 umol/L White Blood Count 6.14 K/uL Red Blood Count 4.04 M/uL Hemoglobin 14.8 g/dL Hematocrit 40.1 % Mean Corpuscular Volume 99.3 fL Mean Corpuscular Hemoglobin 36.6 pg Mean Corpuscular Hemoglobin Concent 36.9 g/dl RDW Standard Deviation 50.3 fL RDW Coefficient of Variation 13.9 % Platelet Count 64 K/uL Mean Platelet Volume 11.1 fL Sodium Level 129 mmol/L Potassium Level 4.2 mmol/L Chloride Level 97 mmol/L Carbon Dioxide Level 25 mmol/L Anion Gap 7.0 mmol/L Blood Urea Nitrogen 14 mg/dl Creatinine 1.19 mg/dl Est Creatinine Clear Calc Drug Dose 71.7 ml/min Estimated GFR () 78.1 Estimated GFR (Non- 67.4 BUN/Creatinine Ratio 11.4 Random Glucose 99 mg/dl Calcium Level 8.8 mg/dl Impression Patient is a 57 year old male w hx of ETOH cirrhosis admitted for weakness, n/v , vertigo. From cirrhosis standpoint he's stable w/o s/s of worsening decompensation. No confusion, jaundice, increased abd distension w ascites or edema. + chronic thrombocytopenia and hyponatremia at baseline. He had in fact just been seen by Liver Transplant team last month, MELD score 11 and may be too good for transplant. - F/U KUB - Abd u/s to check for ascites; if present may obtain diagnostic tap to r/o SBP though less likely - CL diet at most for now - Symptomatic management; IVF hydration. - May consider EGD eval if not improved n/v I performed a history and physical examination of the patient. I have discussed the patient's case, impression and plan with BECKY Khan. Her note reflects my findings and plan. Agree with martin. Patient was able to tolerate some of his lunch tray today. Harjinder Napoles MD
--- NOTE | 2017-04-23 14:01 | DIAGNOSTIC IMAGING REPORT ---
ASCITES-ABDOMEN LIMITED CLINICAL HISTORY: 57 years-old Male presenting with ascites check. TECHNIQUE: Real-time grayscale and limited color Doppler ultrasound imaging of the abdomen was performed for a focused evaluation for ascites. COMPARISON: 02/25/2017. FINDINGS: No ascites. Mildly enlarged spleen measuring 14.8 cm in sagittal dimension. IMPRESSION: 1. No ascites. 2. Splenomegaly. Electronically signed by: Lavon Church M.D. 04/23/2017 2:00 PM Dictated Date/Time: 04/23/2017 1:59 PM
[2017-04-23 15:58] VITALS: BP 135/73; PULSE 74; TEMP 36.7; O2SAT 97
[2017-04-24 00:44] VITALS: BP 118/69; PULSE 77; TEMP 36.7; O2SAT 96
[2017-04-24 04:00] VITALS: BP 137/74; PULSE 71; TEMP 36.5; O2SAT 97
[2017-04-24] MEDS ORDERED: LACTULOSE SYRUP 20 GM/30 ML UDC PO ONE (04:23)
[2017-04-24] MEDS ORDERED: POLYETHYLENE (MIRALAX) 17 GM PACK PO ONE (04:23)
[2017-04-24] MEDS ORDERED: DOCUSATE SODIUM/SENNA 50/8.6MG TAB PO ONE (04:23)
[2017-04-24] MEDS ORDERED: RIFAXIMIN TAB 550 MG TAB PO ONE (04:23)
[2017-04-24] MEDS ORDERED: POLYETHYLENE (MIRALAX) 17 GM PACK PO PRN ×2 (04:30)
[2017-04-24 07:22] LABS: HEMATOCRIT 35.4 % (42-52); HEMOGLOBIN 13.2 g/dL (14.0-18.0); MEAN CELL VOLUME 98.1 fL (80-100); MEAN CORPUSCULAR HEMOGLOBIN 36.6 pg (25-34); MEAN CORPUSCULAR HGB CONC 37.3 g/dl (32-36); RED CELL DISTRIBUTION WIDTH CV 13.6 % (11.5-14.5); RED CELL DISTRIBUTION WIDTH SD 48.6 fL (36.4-46.3); WHITE BLOOD COUNT 4.28 K/uL (4.8-10.8)
[2017-04-24 07:26] LABS: MEAN PLATELET VOLUME 11.3 fL (7.4-10.4); PLATELET COUNT 54 K/uL (130-400)
[2017-04-24 07:39] VITALS: BP 125/69; PULSE 64; TEMP 36.6; O2SAT 97
[2017-04-24 07:48] LABS: CALCIUM 8.5 mg/dl (8.5-10.1); CREATININE 1.12 mg/dl (0.60-1.40); POTASSIUM 3.8 mmol/L (3.5-5.1)
[2017-04-24] MEDS: NICOTINE 21 MG/24 HR TDSY TD SCH (07:52)
[2017-04-24] MEDS: SERTRALINE HCL 50 MG TAB PO SCH (07:53)
[2017-04-24] MEDS: THIAMINE HCL 100 MG TAB PO SCH (07:56)
[2017-04-24] MEDS: FUROSEMIDE 40 MG TAB PO SCH (07:56)
[2017-04-24] MEDS: PANTOprazole SOD 40 MG TAB PO SCH (07:56)
[2017-04-24] MEDS: SPIRONOLACTONE 100 MG TAB PO SCH (07:56)
[2017-04-24] MEDS: CYANOCOBALAMIN 100 MCG TAB (VIT B-12) PO SCH (07:56)
[2017-04-24] MEDS: POLYETHYLENE (MIRALAX) 17 GM PACK PO SCH (07:58)
[2017-04-24] MEDS: LACTULOSE SYRUP 20 GM/30 ML UDC PO SCH ×3 (11:18→20:15)
--- NOTE | 2017-04-24 11:43 | Gastroenterology Progress Note ---
Progress Note Date of Service: Apr 24, 2017 Subjective Pt evaluation today including: conversation w/ patient, physical exam, chart review, lab review, review of inpatient medication list Pt w mild nausea, no vomiting, tolerating solid meals. He is c/o today of some constipation. Had been given Miralax and Lactulose Review of Systems Constitutional: No fever Respiratory: No cough, No shortness of breath Cardiac: No chest pain Abdomen: + nausea, + constipation, No pain, No vomiting, No diarrhea Medications Current Inpatient Medications Medications (Trade) Dose Ordered Sig/Kiya Route Start Time Stop Time Status Last Admin Dose Admin Ondansetron HCl (Zofran Inj) 4 mg Q6H PRN IV 04/21/17 15:15 05/21/17 15:14 04/23/17 09:06 4 MG Albuterol (Ventolin Hfa Inhaler) 2 puffs Q4 PRN INH 04/21/17 15:15 05/21/17 15:14 Cyanocobalamin (Vitamin B-12 Tab) 100 mcg QAM PO 04/22/17 09:00 05/22/17 08:59 04/24/17 07:56 100 MCG Fluticasone Propionate (Flonase Nasal [place]) 2 sprays DAILY PRN GUANAKO 04/21/17 15:15 05/21/17 15:14 Folic Acid (Folvite Tab) 1 mg QAM PO 04/22/17 09:00 05/22/17 08:59 04/24/17 07:56 1 MG Furosemide (Lasix Tab) 40 mg BID17 PO 04/21/17 17:00 05/21/17 16:59 04/24/17 07:56 40 MG Ondansetron HCl (Zofran Tab) 4 mg Q6 PRN PO 04/21/17 15:15 05/21/17 15:14 Sertraline HCl (Zoloft Tab) 25 mg DAILY PO 04/22/17 09:00 05/22/17 08:59 04/23/17 08:15 25 MG Spironolactone (Aldactone Tab) 200 mg QAM PO 04/22/17 09:00 05/22/17 08:59 04/24/17 07:56 200 MG Spironolactone (Aldactone Tab) 100 mg QPM PO 04/21/17 21:00 05/21/17 20:59 3/19/18 20:25 100 MG Thiamine HCl (Vitamin B-1 Tab) 100 mg QAM PO 04/22/17 09:00 05/22/17 08:59 04/24/17 07:56 100 MG Pantoprazole Sodium (Protonix Tab) 40 mg QAM PO 04/22/17 09:00 05/22/17 08:59 04/24/17 07:56 40 MG Valacyclovir HCl (Valtrex Tab) 1,000 mg DAILY PO 04/22/17 09:00 05/22/17 08:59 04/24/17 07:56 1,000 MG Nicotine (Nicoderm Cq 21MG Patch) 1 patch DAILY TD 04/22/17 09:00 05/22/17 08:59 Meclizine HCl (Antivert Tab) 12.5 mg TID PRN PO 04/22/17 05:45 05/22/17 05:44 04/22/17 06:45 12.5 MG Lactulose (Chronulac Syrup) 20 gm QID PO 04/24/17 12:00 05/21/17 16:59 04/24/17 11:18 20 GM Rifaximin (Xifaxan Tab) 550 mg BID PO 04/24/17 20:00 05/21/17 20:59 Senna/Docusate Sodium (Senokot S Tab) 1 tab BID PO 04/24/17 20:00 05/24/17 19:59 Polyethylene (Miralax Powder Packet) 17 gm DAILY PRN PO 04/24/17 04:30 05/24/17 04:29 Polyethylene (Miralax Powder Packet) 17 gm DAILY PO 04/24/17 08:00 05/24/17 07:59 04/24/17 07:58 17 GM Objective Vital Signs Date Time Temp Pulse Resp B/P (MAP) Pulse Ox O2 Delivery O2 Flow Rate FiO2 04/24/17 08:00 Room Air 04/24/17 07:39 36.6 64 18 125/69 (87) 97 Room Air 04/24/17 04:00 36.5 71 18 137/74 (95) 97 Room Air 04/24/17 00:44 36.7 77 20 118/69 (85) 96 Room Air 04/23/17 23:15 Room Air 04/23/17 16:00 Room Air 04/23/17 15:58 36.7 74 18 135/73 (93) 97 Room Air Physical Exam General Appearance: WD/WN, no apparent distress Eyes: normal inspection, PERRL, EOMI Neck: supple, no JVD, trachea midline Respiratory/Chest: normal breath sounds, no respiratory distress, no accessory muscle use Cardiovascular: regular rate, rhythm, no gallop, no murmur Abdomen: normal bowel sounds, soft, + tenderness (mid abd ) Extremities: normal inspection, no pedal edema, no calf tenderness Neurologic/Psych: alert, normal mood/affect, oriented x 3 Skin: normal color, no jaundice, no rash Laboratory Results Last 24 Hours Test 04/24/17 07:12 White Blood Count 4.28 K/uL Red Blood Count 3.61 M/uL Hemoglobin 13.2 g/dL Hematocrit 35.4 % Mean Corpuscular Volume 98.1 fL Mean Corpuscular Hemoglobin 36.6 pg Mean Corpuscular Hemoglobin Concent 37.3 g/dl RDW Standard Deviation 48.6 fL RDW Coefficient of Variation 13.6 % Platelet Count 54 K/uL Mean Platelet Volume 11.3 fL Sodium Level 127 mmol/L Potassium Level 3.8 mmol/L Chloride Level 95 mmol/L Carbon Dioxide Level 23 mmol/L Anion Gap 8.0 mmol/L Blood Urea Nitrogen 12 mg/dl Creatinine 1.12 mg/dl Est Creatinine Clear Calc Drug Dose 76.3 ml/min Estimated GFR () 84.1 Estimated GFR (Non- 72.5 BUN/Creatinine Ratio 11.1 Random Glucose 95 mg/dl Calcium Level 8.5 mg/dl Ammonia 117.4 umol/L Assessment and Plan Patient is a 57 year old male w hx of ETOH cirrhosis admitted for weakness, n/v , vertigo. From cirrhosis standpoint he's stable w/o s/s of worsening decompensation. No confusion, jaundice, increased abd distension w ascites or edema. + chronic thrombocytopenia and hyponatremia at baseline. He had in fact just been seen by Liver Transplant team last month, MELD score 11 and may be too good for transplant. Nausea better, no vomiting. Tolerating solid meals. No imaging evidence of bowel obstruction, severe constipation or ascites. - June DC home from GI standpoint I have seen and examined the patient with BECKY Khan whose note reflects our findings and plan.
--- NOTE | 2017-04-24 13:25 | Progress Note ---
Medicine Progress Note Date & Time of Visit: Apr 24, 2017 at 13:17. Subjective resting in bed, comfortable reports nausea this morning (+) constipation (+) flatus still feels "lightheaded" when standing no other symptoms Objective Last 8 Hrs Date Time Temp Pulse Resp B/P (MAP) Pulse Ox O2 Delivery O2 Flow Rate FiO2 04/24/17 08:00 Room Air 04/24/17 07:39 36.6 64 18 125/69 (87) 97 Room Air Physical Exam: General- oriented x 3, not in distress, speaks in sentences with no effort Head- atraumatic Eyes- PERRL, EOMI, anicteric ENT- oropharynx clear Neck- supple, no JVD, no adenopathy, no thyromegaly; carotids +2/2 Lungs- clear breath sounds bilaterally, no rales/wheezes Heart- regular rhythm; no murmur, normal rate Abdomen- normal bowel sounds, mildly distended, soft, nontender Extremities- no pretibial edema, no calf tenderness; peripheral pulses intact Neuro- alert, oriented x 3; no gross focal deficits Skin- warm & dry Laboratory Results: Last 24 Hours Test 04/24/17 07:12 04/24/17 13:12 White Blood Count 4.28 K/uL Red Blood Count 3.61 M/uL Hemoglobin 13.2 g/dL Hematocrit 35.4 % Mean Corpuscular Volume 98.1 fL Mean Corpuscular Hemoglobin 36.6 pg Mean Corpuscular Hemoglobin Concent 37.3 g/dl RDW Standard Deviation 48.6 fL RDW Coefficient of Variation 13.6 % Platelet Count 54 K/uL Mean Platelet Volume 11.3 fL Sodium Level 127 mmol/L Potassium Level 3.8 mmol/L Chloride Level 95 mmol/L Carbon Dioxide Level 23 mmol/L Anion Gap 8.0 mmol/L Blood Urea Nitrogen 12 mg/dl Creatinine 1.12 mg/dl Est Creatinine Clear Calc Drug Dose 76.3 ml/min Estimated GFR () 84.1 Estimated GFR (Non- 72.5 BUN/Creatinine Ratio 11.1 Random Glucose 95 mg/dl Calcium Level 8.5 mg/dl Ammonia 117.4 umol/L Assessment & Plan Patient is a 57 yr old patient with alcoholic cirrhosis presents with Dysequilibrium and chest pain Dysequilibrium: Likely secondary to Vertigo Hyponatremia and hyperammonemia could be contributing CT head:No acute intracranial abnormality Using Meclizine PRN which helps PT/OT: recommend return home management of hyponatremia and hyper-ammonemia as noted below Hyponatremia baseline low 130s decreased to 127 again today patient appears clinically dry repeat Na this afternoon may need to hold off on PM Lasix and Aldactone will consult Nephro Elevated Ammonia increased again today no signs of hepatic encephalopathy continue Lactulose QID GI consulted Chest pain: Resolved No H/O CAD EKG: No signs of Ischemia Troponin X 2: negative Aspirin contraindicated in setting of thrombocytopenia. Chronic Thrombocytopenia: Likely secondary to Cirrhosis No active bleeding issues Monitor Platelets Hb stable Alcoholic Cirrhosis: No signs of decompensation Denies any recent alcohol use Has been complaints with meds Continue Diuretics, Lactulose, Rifaximin Follows with as outpatient KUB: no obstruction Chronic Vertigo: Denies change with position Meclizine PRN May need follow up with ENT as outpatient check Orthostatic vital signs Tobacco use: Counseled to quit smoking Nicotine Patch DVT Px: SCDs Re:thrombocytopenia Code Status: Full Code Disposition: Expect to discharge home when stable PT/OT Current Inpatient Medications: Current Inpatient Medications Medications (Trade) Dose Ordered Sig/Kiya Route Start Time Stop Time Status Last Admin Dose Admin Ondansetron HCl (Zofran Inj) 4 mg Q6H PRN IV 04/21/17 15:15 05/21/17 15:14 04/23/17 09:06 4 MG Albuterol (Ventolin Hfa Inhaler) 2 puffs Q4 PRN INH 04/21/17 15:15 05/21/17 15:14 Cyanocobalamin (Vitamin B-12 Tab) 100 mcg QAM PO 04/22/17 09:00 05/22/17 08:59 04/24/17 07:56 100 MCG Fluticasone Propionate (Flonase Nasal [place]) 2 sprays DAILY PRN GUANAKO 04/21/17 15:15 05/21/17 15:14 Folic Acid (Folvite Tab) 1 mg QAM PO 04/22/17 09:00 05/22/17 08:59 04/24/17 07:56 1 MG Furosemide (Lasix Tab) 40 mg BID17 PO 04/21/17 17:00 05/21/17 16:59 04/24/17 07:56 40 MG Ondansetron HCl (Zofran Tab) 4 mg Q6 PRN PO 04/21/17 15:15 05/21/17 15:14 Sertraline HCl (Zoloft Tab) 25 mg DAILY PO 04/22/17 09:00 05/22/17 08:59 04/23/17 08:15 25 MG Spironolactone (Aldactone Tab) 200 mg QAM PO 04/22/17 09:00 05/22/17 08:59 04/24/17 07:56 200 MG Spironolactone (Aldactone Tab) 100 mg QPM PO 04/21/17 21:00 05/21/17 20:59 04/23/17 20:25 100 MG Thiamine HCl (Vitamin B-1 Tab) 100 mg QAM PO 04/22/17 09:00 05/22/17 08:59 04/24/17 07:56 100 MG Pantoprazole Sodium (Protonix Tab) 40 mg QAM PO 04/22/17 09:00 05/22/17 08:59 04/24/17 07:56 40 MG Valacyclovir HCl (Valtrex Tab) 1,000 mg DAILY PO 04/22/17 09:00 05/22/17 08:59 04/24/17 07:56 1,000 MG Nicotine (Nicoderm Cq 21MG Patch) 1 patch DAILY TD 04/22/17 09:00 05/22/17 08:59 Meclizine HCl (Antivert Tab) 12.5 mg TID PRN PO 04/22/17 05:45 05/22/17 05:44 04/22/17 06:45 12.5 MG Lactulose (Chronulac Syrup) 20 gm QID PO 04/24/17 12:00 05/21/17 16:59 04/24/17 11:18 20 GM Rifaximin (Xifaxan Tab) 550 mg BID PO 04/24/17 20:00 05/21/17 20:59 Senna/Docusate Sodium (Senokot S Tab) 1 tab BID PO 04/24/17 20:00 05/24/17 19:59 Polyethylene (Miralax Powder Packet) 17 gm DAILY PRN PO 04/24/17 04:30 05/24/17 04:29 Polyethylene (Miralax Powder Packet) 17 gm DAILY PO 04/24/17 08:00 05/24/17 07:59 04/24/17 07:58 17 GM
--- NOTE | 2017-04-24 14:56 | NEPHROLOGY CONSULTATION ---
DATE OF CONSULTATION: 04/24/2017 ATTENDING OF RECORD: Dr. Gaming. REASON FOR CONSULTATION: Hyponatremia. HISTORY OF PRESENT ILLNESS: This is a 57-year-old male who came in with some chest discomfort. He does have an underlying history of alcoholic cirrhosis. He has been alcohol free for about 5 years and was recently evaluated by the liver transplant service. He has not required any recent paracenteses. He has been stable on his current outpatient diuretics. He does have a history of grade 1 varices and does have thrombocytopenia at baseline and does suffer with sodium levels in the 120s with known chronic hyponatremia although previous sodium levels have been in the 130s. The patient had been feeling constipated, having some worsening nausea. Ammonia levels were trending up; however, now starting to move bowels better and having some more diarrhea. He is more comfortable now. PAST MEDICAL HISTORY: Alcoholic cirrhosis, chronic thrombocytopenia, and history of chronic hyponatremia. PAST SURGICAL HISTORY: Carpal tunnel surgery. FAMILY HISTORY: Alcohol abuse and diabetes and hypertension. SOCIAL HISTORY: Former smoker. No alcohol in the last 5 years. No drugs. Lives alone. REVIEW OF SYSTEMS: Positive headache. Positive lightheadedness when standing up. Positive constipation, now with diarrhea. Positive intermittent nausea. Positive decreased appetite. Positive generalized weakness. No blurry vision, no dysphagia, and no shortness of breath. All other review of systems otherwise negative. CURRENT MEDICATIONS: Rifaximin 550 mg p.o. b.i.d., senna 1 tab p.o. b.i.d., lactulose 20 grams p.o. 4 times a day, MiraLax 17 grams daily, vitamin B12 of 100 mcg daily, folic acid 1 mg daily, spironolactone 200 mg a day, thiamine 100 mg a day, Protonix 40 mg a day, Valtrex 1 gram p.o. daily, Nicoderm patch daily, Lasix 40 mg p.o. b.i.d., and spironolactone 100 mg at night. PHYSICAL EXAMINATION: VITAL SIGNS: Temperature 36.6, pulse 64, respiratory rate 18, blood pressure 125/69, and satting 97% on room air. GENERAL: Awake, alert, and oriented x3. EYES: No scleral icterus. ENT: Moist mucous membranes. NECK: Supple. PULMONARY: Clear to auscultation. CARDIAC: Regular rate and rhythm. ABDOMEN: Mildly distended. Bowel sounds positive. Soft and nontender. EXTREMITIES: No significant clubbing, cyanosis or edema. NEUROLOGICALLY: Nonfocal. DERMATOLOGIC: No rash or ulcers noted. LABORATORIES: White count is 4, H&H 13 and 35, and platelet count is 54. Sodium level is 125 and down from 127, potassium 3.8, chlorides 95, bicarbonate is 23, BUN is 12, creatinine is 1.12, glucose is 95, and calcium is 8.5. Ammonia level is trending up from 69 now up to 117.4. Sodium level was 129 on admission on the and now has trended down to 125. UA was bland with specific gravity of 1.005. Abdominal ultrasound shows no ascites or splenomegaly. ASSESSMENT AND PLAN: Hyponatremia in the setting of alcoholic cirrhosis. Normally with alcoholic cirrhosis, hyponatremia is secondary to volume overload. Currently on appropriate doses of Lasix and spironolactone. He has not required any recent paracenteses. Abdominal ultrasound revealed no ascites at this time. The patient does get lightheaded when he stands up and I feel that the patient may be on the dry side contributing to the hyponatremia. I would like to temporarily hold the diuretics and give normal saline at 80 mL an hour. Check urine osmolality and repeat the sodium levels in the morning and place on 1 liter fluid restriction. I feel that the patient may have hyponatremia from volume depletion since no overt signs of volume overload. He is alcoholic cirrhotic, who was relatively well maintained as an outpatient. With a combination of fluid restriction and normal saline, sodium level should improve nicely. I appreciate the consultation. ANTHONY
[2017-04-24] MEDS: SODIUM CHLORIDE 0.9% 1000ML 1,000 ML IV SCH (15:48)
[2017-04-24 16:11] VITALS: BP_SYST 108; BP_SYST 122; BP_DIAS 53; BP_DIAS 65; BP_DIAS 67; PULSE 75; PULSE 80; PULSE 81; TEMP 36.7; O2SAT 96
[2017-04-24] MEDS: DOCUSATE SODIUM/SENNA 50/8.6MG TAB PO SCH (20:15)
[2017-04-24] MEDS: RIFAXIMIN TAB 550 MG TAB PO SCH (20:15)
[2017-04-24 23:18] VITALS: BP_SYST 111; BP_SYST 116; BP_SYST 85; BP_DIAS 49; BP_DIAS 59; BP_DIAS 66; PULSE 70; TEMP 36.6; O2SAT 97
[2017-04-25] MEDS: SODIUM CHLORIDE 0.9% 1000ML 1,000 ML IV SCH ×2 (03:07→15:37)
[2017-04-25] MEDS ORDERED: IBUPROFEN 200 MG TAB PO STA (04:19)
[2017-04-25 07:46] VITALS: BP 125/80; PULSE 85; TEMP 36.6; O2SAT 96
[2017-04-25 08:22] LABS: CALCIUM 8.5 mg/dl (8.5-10.1); POTASSIUM 4.3 mmol/L (3.5-5.1)
--- NOTE | 2017-04-25 08:46 | Nephrology Progress Note ---
Nephrology Progress Note Date of Service: Apr 25, 2017. Subjective 57 yo male with alcoholic cirrhosis who developed hyponatremia. attributed to volume depletion. pt concerned about lightheadedness which he states is chronic but would like it to improve. pt also having difficult time with fluid restriction. Objective Date Time Temp Pulse Resp B/P (MAP) Pulse Ox O2 Delivery O2 Flow Rate FiO2 04/25/17 08:00 Room Air 04/25/17 07:46 36.6 85 20 125/80 (95) 96 Room Air 04/24/17 23:45 Room Air 04/24/17 23:18 36.6 70 18 85/49 (61) 97 Room Air 116/66 (83) 111/59 (76) 04/24/17 16:11 36.7 75 16 122/67 (85) 96 Room Air 81 108/65 (79) 80 108/53 (71) 04/24/17 16:10 Room Air Physical Exam: General-aaox3 Eyes-no scleral icterus ENT-mmm Neck-supple Lungs-cta Heart-rrr Abdomen-bs+ s/nt/nd Extremities-no c/c/e Neuro-nonfocal Current Inpatient Medications Medications (Trade) Dose Ordered Sig/Kiya Route Start Time Stop Time Status Last Admin Dose Admin Ondansetron HCl (Zofran Inj) 4 mg Q6H PRN IV 04/21/17 15:15 05/21/17 15:14 04/23/17 09:06 4 MG Albuterol (Ventolin Hfa Inhaler) 2 puffs Q4 PRN INH 04/21/17 15:15 05/21/17 15:14 Cyanocobalamin (Vitamin B-12 Tab) 100 mcg QAM PO 04/22/17 09:00 05/22/17 08:59 04/24/17 07:56 100 MCG Fluticasone Propionate (Flonase Nasal [place]) 2 sprays DAILY PRN GUANAKO 04/21/17 15:15 05/21/17 15:14 Folic Acid (Folvite Tab) 1 mg QAM PO 04/22/17 09:00 05/22/17 08:59 04/24/17 07:56 1 MG Ondansetron HCl (Zofran Tab) 4 mg Q6 PRN PO 04/21/17 15:15 05/21/17 15:14 Sertraline HCl (Zoloft Tab) 25 mg DAILY PO 04/22/17 09:00 05/22/17 08:59 04/23/17 08:15 25 MG Thiamine HCl (Vitamin B-1 Tab) 100 mg QAM PO 04/22/17 09:00 05/22/17 08:59 04/24/17 07:56 100 MG Pantoprazole Sodium (Protonix Tab) 40 mg QAM PO 04/22/17 09:00 05/22/17 08:59 04/24/17 07:56 40 MG Valacyclovir HCl (Valtrex Tab) 1,000 mg DAILY PO 04/22/17 09:00 05/22/17 08:59 04/24/17 07:56 1,000 MG Nicotine (Nicoderm Cq 21MG Patch) 1 patch DAILY TD 04/22/17 09:00 05/22/17 08:59 Meclizine HCl (Antivert Tab) 12.5 mg TID PRN PO 04/22/17 05:45 05/22/17 05:44 04/22/17 06:45 12.5 MG Lactulose (Chronulac Syrup) 20 gm QID PO 04/24/17 12:00 05/21/17 16:59 04/24/17 20:15 20 GM Rifaximin (Xifaxan Tab) 550 mg BID PO 04/24/17 20:00 05/21/17 20:59 04/24/17 20:15 550 MG Senna/Docusate Sodium (Senokot S Tab) 1 tab BID PO 04/24/17 20:00 05/24/17 19:59 04/24/17 20:15 1 TAB Polyethylene (Miralax Powder Packet) 17 gm DAILY PRN PO 04/24/17 04:30 05/24/17 04:29 Polyethylene (Miralax Powder Packet) 17 gm DAILY PO 04/24/17 08:00 05/24/17 07:59 04/24/17 07:58 17 GM Sodium Chloride 1,000 ml @ 80 mls/hr [id number] IV 04/24/17 15:00 05/24/17 14:59 04/25/17 03:07 80 MLS/HR Last 24 Hours Test 04/24/17 13:12 04/25/17 03:00 04/25/17 07:26 04/25/17 08:20 Sodium Level 125 mmol/L 131 mmol/L Urine Osmolality 390 mOms/kg Potassium Level 4.3 mmol/L Chloride Level 100 mmol/L Carbon Dioxide Level 24 mmol/L Anion Gap 7.0 mmol/L Blood Urea Nitrogen 13 mg/dl Creatinine 1.00 mg/dl Est Creatinine Clear Calc Drug Dose 85.5 ml/min Estimated GFR () 96.4 Estimated GFR (Non- 83.2 BUN/Creatinine Ratio 12.6 Random Glucose 85 mg/dl Calcium Level 8.5 mg/dl Ammonia umol/L Assessment & Plan hyponatremia-sodium levels are improving on fluid restriction and low rate normal saline and holding of diuretics. sodium is above 130 although is still concerned about his lightheadedness. discussed options with patient. would like to continue current therapy for another 24 hours to see if any improvement in the lightheadedness and may also improve the sodium levels into the mid 130s which would be ideal. then restart the diuretics and stop the fluid restriction tomorrow.
[2017-04-25] MEDS: POLYETHYLENE (MIRALAX) 17 GM PACK PO SCH (09:18)
[2017-04-25] MEDS: NICOTINE 21 MG/24 HR TDSY TD SCH (09:19)
[2017-04-25] MEDS: SERTRALINE HCL 50 MG TAB PO SCH (09:19)
[2017-04-25] MEDS: LACTULOSE SYRUP 20 GM/30 ML UDC PO SCH ×4 (09:21→19:59)
[2017-04-25] MEDS: RIFAXIMIN TAB 550 MG TAB PO SCH ×2 (09:22→19:59)
[2017-04-25] MEDS: DOCUSATE SODIUM/SENNA 50/8.6MG TAB PO SCH ×2 (09:22→19:59)
[2017-04-25] MEDS: CYANOCOBALAMIN 100 MCG TAB (VIT B-12) PO SCH (09:22)
[2017-04-25] MEDS: THIAMINE HCL 100 MG TAB PO SCH (09:22)
[2017-04-25] MEDS: PANTOprazole SOD 40 MG TAB PO SCH (09:22)
[2017-04-25 15:14] VITALS: BP_SYST 108; BP_SYST 117; BP_DIAS 57; PULSE 75; TEMP 36.6; O2SAT 98
[2017-04-25 15:15] VITALS: BP 117/63; PULSE 75
[2017-04-25] MEDS ORDERED: BISACODYL 10 MG SUPP PR PRN (16:30)
[2017-04-25] MEDS ORDERED: BISACODYL 10 MG SUPP PR ONE (16:30)
[2017-04-25] MEDS ORDERED: TAP WATER ENEMA PR PRN (16:30)
--- NOTE | 2017-04-25 16:35 | Progress Note ---
Medicine Progress Note Date & Time of Visit: Apr 25, 2017 at 16:32. Subjective seen resting in bed, comfortable states he feels a little better today less lightheadedness still with no BM no abdominal pain ,nausea (+) Flatus no other symptoms Objective Last 8 Hrs Date Time Temp Pulse Resp B/P (MAP) Pulse Ox O2 Delivery O2 Flow Rate FiO2 04/25/17 16:00 Room Air 04/25/17 15:15 75 117/63 (81) 04/25/17 15:14 75 117/57 (77) 04/25/17 15:14 36.6 75 20 108/57 (74) 98 Room Air Physical Exam: General- oriented x 3, not in distress, speaks in sentences with no effort Eyes- anicteric ENT- oropharynx clear Neck- supple, no JVD Lungs- clear breath sounds bilaterally Heart- regular rhythm; no murmur, normal rate Abdomen- normal bowel sounds, mildly distended, soft, nontender Extremities- no pretibial edema, no calf tenderness; peripheral pulses intact Neuro- alert, oriented x 3; no gross focal deficits Skin- warm & dry Laboratory Results: Last 24 Hours Test 04/25/17 03:00 04/25/17 07:26 04/25/17 08:20 Urine Osmolality 390 mOms/kg Sodium Level 131 mmol/L Potassium Level 4.3 mmol/L Chloride Level 100 mmol/L Carbon Dioxide Level 24 mmol/L Anion Gap 7.0 mmol/L Blood Urea Nitrogen 13 mg/dl Creatinine 1.00 mg/dl Est Creatinine Clear Calc Drug Dose 85.5 ml/min Estimated GFR () 96.4 Estimated GFR (Non- 83.2 BUN/Creatinine Ratio 12.6 Random Glucose 85 mg/dl Calcium Level 8.5 mg/dl Ammonia umol/L 89.5 umol/L Assessment & Plan Patient is a 57 yr old patient with alcoholic cirrhosis presents with Dysequilibrium and chest pain Dysequilibrium: Likely secondary to Vertigo Hyponatremia and hyperammonemia could be contributing CT head:No acute intracranial abnormality Using Meclizine PRN which helps PT/OT: recommend return home --management of hyponatremia and hyper-ammonemia as noted below Hyponatremia baseline low 130s decreased to 127 again --> held off diuretics, given IV NSS Nephro consulted Na improving to 130s continue gentle IV NSS monitor Na appreciate Dr. Valle's recommendations Elevated Ammonia improved no signs of hepatic encephalopathy continue Lactulose QID GI consulted Constipation add PRN Dulcolax suppository add PRN Tap water enema monitor Chest pain: Resolved No H/O CAD EKG: No signs of Ischemia Troponin X 2: negative Aspirin contraindicated in setting of thrombocytopenia. Chronic Thrombocytopenia: Likely secondary to Cirrhosis No active bleeding issues Monitor Platelets Hb stable Alcoholic Cirrhosis: No signs of decompensation Denies any recent alcohol use Has been complaints with meds hold diuretics continue Lactulose, Rifaximin Follows with as outpatient KUB: no obstruction Chronic Vertigo: Denies change with position Meclizine PRN May need follow up with ENT as outpatient Orthostatic vital signs: no orthostasis Tobacco use: Counseled to quit smoking Nicotine Patch DVT Px: SCDs Re:thrombocytopenia Code Status: Full Code Disposition: Expect to discharge home when stable PT/OT Current Inpatient Medications: Current Inpatient Medications Medications (Trade) Dose Ordered Sig/Kiya Route Start Time Stop Time Status Last Admin Dose Admin Ondansetron HCl (Zofran Inj) 4 mg Q6H PRN IV 04/21/17 15:15 05/21/17 15:14 04/23/17 09:06 4 MG Albuterol (Ventolin Hfa Inhaler) 2 puffs Q4 PRN INH 04/21/17 15:15 05/21/17 15:14 Cyanocobalamin (Vitamin B-12 Tab) 100 mcg QAM PO 04/22/17 09:00 05/22/17 08:59 04/25/17 09:22 100 MCG Fluticasone Propionate (Flonase Nasal [place]) 2 sprays DAILY PRN GUA[place]KO 04/21/17 15:15 05/21/17 15:14 Folic Acid (Folvite Tab) 1 mg QAM PO 04/22/17 09:00 05/22/17 08:59 04/25/17 09:21 1 MG Ondansetron HCl (Zofran Tab) 4 mg Q6 PRN PO 04/21/17 15:15 05/21/17 15:14 Sertraline HCl (Zoloft Tab) 25 mg DAILY PO 04/22/17 09:00 05/22/17 08:59 04/23/17 08:15 25 MG Thiamine HCl (Vitamin B-1 Tab) 100 mg QAM PO 04/22/17 09:00 05/22/17 08:59 04/25/17 09:22 100 MG Pantoprazole Sodium (Protonix Tab) 40 mg QAM PO 04/22/17 09:00 05/22/17 08:59 04/25/17 09:22 40 MG Valacyclovir HCl (Valtrex Tab) 1,000 mg DAILY PO 04/22/17 09:00 05/22/17 08:59 04/25/17 09:22 1,000 MG Nicotine (Nicoderm Cq 21MG Patch) 1 patch DAILY TD 04/22/17 09:00 05/22/17 08:59 Meclizine HCl (Antivert Tab) 12.5 mg TID PRN PO 04/22/17 05:45 05/22/17 05:44 04/22/17 06:45 12.5 MG Lactulose (Chronulac Syrup) 20 gm QID PO 04/24/17 12:00 05/21/17 16:59 04/25/17 11:43 20 GM Rifaximin (Xifaxan Tab) 550 mg BID PO 04/24/17 20:00 05/21/17 20:59 04/25/17 09:22 550 MG Senna/Docusate Sodium (Senokot S Tab) 1 tab BID PO 04/24/17 20:00 05/24/17 19:59 04/25/17 09:22 1 TAB Polyethylene (Miralax Powder Packet) 17 gm DAILY PRN PO 04/24/17 04:30 05/24/17 04:29 Polyethylene (Miralax Powder Packet) 17 gm DAILY PO 04/24/17 08:00 05/24/17 07:59 04/24/17 07:58 17 GM Sodium Chloride 1,000 ml @ 80 mls/hr [id number] IV 04/24/17 15:00 05/24/17 14:59 04/25/17 15:37 80 MLS/HR
[2017-04-25 23:36] VITALS: BP 103/62; PULSE 73; TEMP 36.8; O2SAT 98
[2017-04-26] MEDS: SODIUM CHLORIDE 0.9% 1000ML 1,000 ML IV SCH (04:06)
[2017-04-26 07:44] LABS: CALCIUM 8.2 mg/dl (8.5-10.1); CREATININE 0.91 mg/dl (0.60-1.40); POTASSIUM 4.2 mmol/L (3.5-5.1)
[2017-04-26 07:56] VITALS: BP_SYST 100; BP_SYST 114; BP_SYST 92; BP_DIAS 50; BP_DIAS 62; BP_DIAS 71; PULSE 69; PULSE 75; PULSE 93; TEMP 36.7; O2SAT 96
[2017-04-26 08:00] VITALS: O2SAT 96
[2017-04-26] MEDS: LACTULOSE SYRUP 20 GM/30 ML UDC PO SCH ×4 (08:00→20:22)
[2017-04-26] MEDS: SERTRALINE HCL 50 MG TAB PO SCH (08:00)
[2017-04-26] MEDS: PANTOprazole SOD 40 MG TAB PO SCH (08:30)
[2017-04-26] MEDS: THIAMINE HCL 100 MG TAB PO SCH (08:31)
[2017-04-26] MEDS: DOCUSATE SODIUM/SENNA 50/8.6MG TAB PO SCH ×2 (08:31→20:23)
[2017-04-26] MEDS: CYANOCOBALAMIN 100 MCG TAB (VIT B-12) PO SCH (08:31)
[2017-04-26] MEDS: RIFAXIMIN TAB 550 MG TAB PO SCH ×2 (08:32→20:23)
[2017-04-26] MEDS: NICOTINE 21 MG/24 HR TDSY TD SCH (08:34)
[2017-04-26] MEDS: POLYETHYLENE (MIRALAX) 17 GM PACK PO SCH (08:40)
[2017-04-26 14:51] VITALS: BP 115/71; PULSE 78; TEMP 36.8; O2SAT 96
--- NOTE | 2017-04-26 15:01 | Nephrology Progress Note ---
Nephrology Progress Note Date of Service: Apr 26, 2017. Subjective 57 yo male with alcoholic cirrhosis who developed hyponatremia. attributed to volume depletion. today patient states that he is eager to go home. he was concerned with constipation but has had 4 bm's since receiving an enema yesterday. patient also reports good urine output. has issues with fluid restriction at home. continues to report lightheadedness which he says is unchanged. Objective Date Time Temp Pulse Resp B/P (MAP) Pulse Ox O2 Delivery O2 Flow Rate FiO2 04/26/17 14:51 36.8 78 17 115/71 (86) 96 Room Air 04/26/17 08:00 96 Room Air 04/26/17 07:56 36.7 69 18 92/50 (64) 96 Room Air 75 100/62 (75) 93 114/71 (85) 04/25/17 23:36 36.8 73 18 103/62 (76) 98 Room Air 04/25/17 23:20 Room Air 04/25/17 16:00 Room Air 04/25/17 15:15 75 117/63 (81) 04/25/17 15:14 75 117/57 (77) 04/25/17 15:14 36.6 75 20 108/57 (74) 98 Room Air Physical Exam: General-aaox3 Eyes-no scleral icterus ENT-mmm Neck-supple Lungs-cta Heart-rrr Abdomen-bs+ s/nt/nd Extremities-no c/c/e Neuro-nonfocal Current Inpatient Medications Medications (Trade) Dose Ordered Sig/Kiya Route Start Time Stop Time Status Last Admin Dose Admin Ondansetron HCl (Zofran Inj) 4 mg Q6H PRN IV 04/21/17 15:15 05/21/17 15:14 04/23/17 09:06 4 MG Albuterol (Ventolin Hfa Inhaler) 2 puffs Q4 PRN INH 04/21/17 15:15 05/21/17 15:14 04/26/17 01:56 2 PUFFS Cyanocobalamin (Vitamin B-12 Tab) 100 mcg QAM PO 04/22/17 09:00 05/22/17 08:59 04/26/17 08:31 100 MCG Fluticasone Propionate (Flonase Nasal [place]) 2 sprays DAILY PRN GUANAKO 04/21/17 15:15 05/21/17 15:14 Folic Acid (Folvite Tab) 1 mg QAM PO 04/22/17 09:00 05/22/17 08:59 04/26/17 08:32 1 MG Ondansetron HCl (Zofran Tab) 4 mg Q6 PRN PO 04/21/17 15:15 05/21/17 15:14 Sertraline HCl (Zoloft Tab) 25 mg DAILY PO 04/22/17 09:00 05/22/17 08:59 04/23/17 08:15 25 MG Thiamine HCl (Vitamin B-1 Tab) 100 mg QAM PO 04/22/17 09:00 05/22/17 08:59 04/26/17 08:31 100 MG Pantoprazole Sodium (Protonix Tab) 40 mg QAM PO 04/22/17 09:00 05/22/17 08:59 04/26/17 08:30 40 MG Valacyclovir HCl (Valtrex Tab) 1,000 mg DAILY PO 04/22/17 09:00 05/22/17 08:59 04/26/17 08:32 1,000 MG Nicotine (Nicoderm Cq 21MG Patch) 1 patch DAILY TD 04/22/17 09:00 05/22/17 08:59 04/26/17 08:34 1 PATCH Meclizine HCl (Antivert Tab) 12.5 mg TID PRN PO 04/22/17 05:45 05/22/17 05:44 04/22/17 06:45 12.5 MG Lactulose (Chronulac Syrup) 20 gm QID PO 04/24/17 12:00 05/21/17 16:59 04/26/17 12:47 20 GM Rifaximin (Xifaxan Tab) 550 mg BID PO 04/24/17 20:00 05/21/17 20:59 04/26/17 08:32 550 MG Senna/Docusate Sodium (Senokot S Tab) 1 tab BID PO 04/24/17 20:00 05/24/17 19:59 04/26/17 08:31 1 TAB Polyethylene (Miralax Powder Packet) 17 gm DAILY PRN PO 04/24/17 04:30 05/24/17 04:29 Polyethylene (Miralax Powder Packet) 17 gm DAILY PO 04/24/17 08:00 05/24/17 07:59 04/26/17 08:40 17 GM Sodium Chloride 1,000 ml @ 80 mls/hr [id number] IV 04/24/17 15:00 05/24/17 14:59 04/26/17 04:06 80 MLS/HR Bisacodyl (Dulcolax Supp) 10 mg DAILY PRN [place] 04/25/17 16:30 05/25/17 16:29 Miscellaneous (Tap Water Enema) 1 ea DAILY PRN [place] 04/25/17 16:30 05/25/17 16:29 04/25/17 19:04 1 EA Last 24 Hours Test 04/25/17 19:50 04/26/17 06:51 Urine Color YELLOW Urine Appearance CLEAR Urine pH 6.0 Urine Specific [place] 1.015 Urine Protein NEG Urine Glucose (UA) NEG Urine Ketones NEG Urine Occult Blood NEG Urine Nitrite NEG Urine Bilirubin NEG Urine Urobilinogen NEG Urine Leukocyte Esterase NEG Sodium Level 134 mmol/L Potassium Level 4.2 mmol/L Chloride Level 106 mmol/L Carbon Dioxide Level 20 mmol/L Anion Gap 8.0 mmol/L Blood Urea Nitrogen 11 mg/dl Creatinine 0.91 mg/dl Est Creatinine Clear Calc Drug Dose 93.9 ml/min Estimated GFR () 108.0 Estimated GFR (Non- 93.2 BUN/Creatinine Ratio 12.3 Random Glucose 113 mg/dl Calcium Level 8.2 mg/dl Assessment & Plan hyponatremia-sodium levels are improving on fluid restriction and low rate normal saline and holding of diuretics. sodium continues to improve. now at 134. patient states that he feels well. volume status appropriate. plan to restart diuretics and stop fluid restriction tomorrow. as long as tolerated patient is good from a renal standpoint to go home. This patient was seen and treated with direct collaboration with Dr. Valle. Thank you for the opportunity to participate in this patient's care. Appreciate the Consult. ATTENDING NOTE: I performed a history and physical examination of the patient, including specifically on history- continues to feel lightheaded when he sits up,on physical exam-cta, no edema, and my impression and plan are hyponatremia-sodium levels improved with normal saline. stop the iv fluids and restart home diuretics. ok from renal perspective to go home. would recommend repeating sodium next week. I have discussed the patient's management with Cherrie Madsen PA-C, Please refer to above note for the documented findings and plan of care. Lula Oncu DO
--- NOTE | 2017-04-26 16:46 | Progress Note ---
Medicine Progress Note Date & Time of Visit: Apr 26, 2017 at 16:45. Subjective feeling better overall today had BMs no abdominal pain, confusion lightheadedness improving denies other symptoms Objective Last 8 Hrs Date Time Temp Pulse Resp B/P (MAP) Pulse Ox O2 Delivery O2 Flow Rate FiO2 04/26/17 16:10 Room Air 04/26/17 14:51 36.8 78 17 115/71 (86) 96 Room Air Physical Exam: General- oriented x 3, not in distress, speaks in sentences with no effort Neck- no JVD Lungs- clear breath sounds bilaterally Heart- regular rhythm; no murmur, normal rate Abdomen- normal bowel sounds, mildly distended, soft, nontender Extremities- no pretibial edema, no calf tenderness; peripheral pulses intact Neuro- alert, oriented x 3; no gross focal deficits Skin- warm & dry Laboratory Results: Last 24 Hours Test 04/25/17 19:50 04/26/17 06:51 Urine Color YELLOW Urine Appearance CLEAR Urine pH 6.0 Urine Specific [place] 1.015 Urine Protein NEG Urine Glucose (UA) NEG Urine Ketones NEG Urine Occult Blood NEG Urine Nitrite NEG Urine Bilirubin NEG Urine Urobilinogen NEG Urine Leukocyte Esterase NEG Sodium Level 134 mmol/L Potassium Level 4.2 mmol/L Chloride Level 106 mmol/L Carbon Dioxide Level 20 mmol/L Anion Gap 8.0 mmol/L Blood Urea Nitrogen 11 mg/dl Creatinine 0.91 mg/dl Est Creatinine Clear Calc Drug Dose 93.9 ml/min Estimated GFR () 108.0 Estimated GFR (Non- 93.2 BUN/Creatinine Ratio 12.3 Random Glucose 113 mg/dl Calcium Level 8.2 mg/dl Assessment & Plan Patient is a 57 yr old patient with alcoholic cirrhosis presents with Dysequilibrium and chest pain Dysequilibrium: Likely secondary to Vertigo Hyponatremia and hyperammonemia could be contributing CT head:No acute intracranial abnormality Using Meclizine PRN which helps PT/OT: recommend return home --management of hyponatremia and hyper-ammonemia as noted below Hyponatremia baseline low 130s decreased to 127 again --> held off diuretics, given IV NSS Nephro consulted Na improved to 134 d/c IV fluids resume diuretics tomorrow monitor Na in [address] Valle's recommendations Elevated Ammonia improved no signs of hepatic encephalopathy continue Lactulose QID GI consulted Constipation, resolved PRN Dulcolax suppository PRN Tap water enema Chest pain: Resolved No H/O CAD EKG: No signs of Ischemia Troponin X 2: negative Aspirin contraindicated in setting of thrombocytopenia. Chronic Thrombocytopenia: Likely secondary to Cirrhosis No active bleeding issues Monitor Platelets Hb stable Alcoholic Cirrhosis: No signs of decompensation Denies any recent alcohol use Has been complaints with meds resume diuretics tomorrow continue Lactulose, Rifaximin Follows with as outpatient KUB: no obstruction Chronic Vertigo: Denies change with position Meclizine PRN May need follow up with ENT as outpatient Orthostatic vital signs: no orthostasis Tobacco use: Counseled to quit smoking Nicotine Patch DVT Px: SCDs Re:thrombocytopenia Code Status: Full Code Disposition: anticipate d/c home tomorrow Current Inpatient Medications: Current Inpatient Medications Medications (Trade) Dose Ordered Sig/Kiya Route Start Time Stop Time Status Last Admin Dose Admin Ondansetron HCl (Zofran Inj) 4 mg Q6H PRN IV 04/21/17 15:15 05/21/17 15:14 04/23/17 09:06 4 MG Albuterol (Ventolin Hfa Inhaler) 2 puffs Q4 PRN INH 04/21/17 15:15 05/21/17 15:14 04/26/17 01:56 2 PUFFS Cyanocobalamin (Vitamin B-12 Tab) 100 mcg QAM PO 04/22/17 09:00 05/22/17 08:59 04/26/17 08:31 100 MCG Fluticasone Propionate (Flonase Nasal [place]) 2 sprays DAILY PRN GUANAKO 04/21/17 15:15 05/21/17 15:14 Folic Acid (Folvite Tab) 1 mg QAM PO 04/22/17 09:00 05/22/17 08:59 04/26/17 08:32 1 MG Ondansetron HCl (Zofran Tab) 4 mg Q6 PRN PO 04/21/17 15:15 05/21/17 15:14 Sertraline HCl (Zoloft Tab) 25 mg DAILY PO 04/22/17 09:00 05/22/17 08:59 04/23/17 08:15 25 MG Thiamine HCl (Vitamin B-1 Tab) 100 mg QAM PO 04/22/17 09:00 05/22/17 08:59 04/26/17 08:31 100 MG Pantoprazole Sodium (Protonix Tab) 40 mg QAM PO 04/22/17 09:00 05/22/17 08:59 04/26/17 08:30 40 MG Valacyclovir HCl (Valtrex Tab) 1,000 mg DAILY PO 04/22/17 09:00 05/22/17 08:59 04/26/17 08:32 1,000 MG Nicotine (Nicoderm Cq 21MG Patch) 1 patch DAILY TD 04/22/17 09:00 05/22/17 08:59 04/26/17 08:34 1 PATCH Meclizine HCl (Antivert Tab) 12.5 mg TID PRN PO 04/22/17 05:45 05/22/17 05:44 04/22/17 06:45 12.5 MG Lactulose (Chronulac Syrup) 20 gm QID PO 04/24/17 12:00 05/21/17 16:59 04/26/17 12:47 20 GM Rifaximin (Xifaxan Tab) 550 mg BID PO 04/24/17 20:00 05/21/17 20:59 04/26/17 08:32 550 MG Senna/Docusate Sodium (Senokot S Tab) 1 tab BID PO 04/24/17 20:00 05/24/17 19:59 04/26/17 08:31 1 TAB Polyethylene (Miralax Powder Packet) 17 gm DAILY PRN PO 04/24/17 04:30 05/24/17 04:29 Polyethylene (Miralax Powder Packet) 17 gm DAILY PO 04/24/17 08:00 05/24/17 07:59 04/26/17 08:40 17 GM Bisacodyl (Dulcolax Supp) 10 mg DAILY PRN [place] 04/25/17 16:30 05/25/17 16:29 Miscellaneous (Tap Water Enema) 1 ea DAILY PRN [place] 04/25/17 16:30 05/25/17 16:29 04/25/17 19:04 1 EA
[2017-04-27] VITALS: BP 137/80; PULSE 80; TEMP 36.7; O2SAT 97
[2017-04-27 07:33] VITALS: BP 111/65; PULSE 84; TEMP 36.7; O2SAT 98
--- NOTE | 2017-04-27 08:07 | Progress Note ---
Medicine Progress Note Date & Time of Visit: Apr 27, 2017 at 08:04. Subjective patient seen resting in bed. comfortable alert states he feels fine overall has BMs no confusion lightheadedness is better ambulating at baseline no other symptoms states he is ready and would like to be discharged today Objective Last 8 Hrs Date Time Temp Pulse Resp B/P (MAP) Pulse Ox O2 Delivery O2 Flow Rate FiO2 04/27/17 07:38 Room Air 04/27/17 07:33 36.7 84 18 111/65 (80) 98 Room Air Physical Exam: General- oriented x 3, not in distress, speaks in sentences with no effort Neck- no JVD Lungs- clear breath sounds bilaterally, no rales. no wheezes Heart- regular rhythm; no murmur, normal rate Abdomen- normal bowel sounds, non distended, soft, nontender Extremities- no pretibial edema, no calf tenderness; peripheral pulses intact Neuro- alert, oriented x 3; no gross focal deficits Skin- warm & dry Assessment & Plan Patient is a 57 yr old patient with alcoholic cirrhosis presents with Dysequilibrium and chest pain Dysequilibrium: Likely secondary to Vertigo Hyponatremia and hyperammonemia could be contributory CT head:No acute intracranial abnormality Using Meclizine PRN which helps PT/OT: recommend return home --management of hyponatremia and hyper-ammonemia as noted below Hyponatremia baseline low 130s Na decreased to 127 --> held off diuretics, given IV NSS Nephro consulted Dr. Valle Na improved to 134 resume diuretics monitor Na in 1 week and regularly Elevated Ammonia improved no signs of hepatic encephalopathy continue Lactulose QID GI consulted Constipation, resolved PRN Dulcolax suppository PRN Tap water enema Chest pain: Resolved No H/O CAD EKG: No signs of Ischemia Troponin X 2: negative Aspirin contraindicated in setting of thrombocytopenia. Chronic Thrombocytopenia: Likely secondary to Cirrhosis No active bleeding issues Monitor Platelets and Hg Alcoholic Cirrhosis: No signs of decompensation Denies any recent alcohol use Has been adherent with meds continue Diuretics, Lactulose, Rifaximin Follows with as outpatient Chronic Vertigo: Orthostatic vital signs: no orthostasis Meclizine PRN May need follow up with ENT as outpatient Tobacco use: Counseled to quit smoking Nicotine Patch DVT Px: SCDs Re:thrombocytopenia Code Status: Full Code Disposition: d/c home ff up with PCP in 3-5 days ff up with GI in 1-2 weeks Current Inpatient Medications: Current Inpatient Medications Medications (Trade) Dose Ordered Sig/Kiya Route Start Time Stop Time Status Last Admin Dose Admin Ondansetron HCl (Zofran Inj) 4 mg Q6H PRN IV 04/21/17 15:15 05/21/17 15:14 04/23/17 09:06 4 MG Albuterol (Ventolin Hfa Inhaler) 2 puffs Q4 PRN INH 04/21/17 15:15 05/21/17 15:14 04/26/17 01:56 2 PUFFS Cyanocobalamin (Vitamin B-12 Tab) 100 mcg QAM PO 04/22/17 09:00 05/22/17 08:59 04/26/17 08:31 100 MCG Fluticasone Propionate (Flonase Nasal [place]) 2 sprays DAILY PRN GUA[place] 04/21/17 15:15 05/21/17 15:14 Folic Acid (Folvite Tab) 1 mg QAM PO 04/22/17 09:00 05/22/17 08:59 04/26/17 08:32 1 MG Ondansetron HCl (Zofran Tab) 4 mg Q6 PRN PO 04/21/17 15:15 05/21/17 15:14 Sertraline HCl (Zoloft Tab) 25 mg DAILY PO 04/22/17 09:00 05/22/17 08:59 04/23/17 08:15 25 MG Thiamine HCl (Vitamin B-1 Tab) 100 mg QAM PO 04/22/17 09:00 05/22/17 08:59 04/26/17 08:31 100 MG Pantoprazole Sodium (Protonix Tab) 40 mg QAM PO 04/22/17 09:00 05/22/17 08:59 04/26/17 08:30 40 MG Valacyclovir HCl (Valtrex Tab) 1,000 mg DAILY PO 04/22/17 09:00 05/22/17 08:59 04/26/17 08:32 1,000 MG Nicotine (Nicoderm Cq 21MG Patch) 1 patch DAILY TD 04/22/17 09:00 05/22/17 08:59 04/26/17 08:34 1 PATCH Meclizine HCl (Antivert Tab) 12.5 mg TID PRN PO 04/22/17 05:45 05/22/17 05:44 04/22/17 06:45 12.5 MG Lactulose (Chronulac Syrup) 20 gm QID PO 04/24/17 12:00 05/21/17 16:59 04/26/17 20:22 20 GM Rifaximin (Xifaxan Tab) 550 mg BID PO 04/24/17 20:00 05/21/17 20:59 04/26/17 20:23 550 MG Senna/Docusate Sodium (Senokot S Tab) 1 tab BID PO 04/24/17 20:00 05/24/17 19:59 04/26/17 20:23 1 TAB Polyethylene (Miralax Powder Packet) 17 gm DAILY PRN PO 04/24/17 04:30 05/24/17 04:29 Polyethylene (Miralax Powder Packet) 17 gm DAILY PO 04/24/17 08:00 05/24/17 07:59 04/26/17 08:40 17 GM Bisacodyl (Dulcolax Supp) 10 mg DAILY PRN [place] 04/25/17 16:30 05/25/17 16:29 Miscellaneous (Tap Water Enema) 1 ea DAILY PRN [place] 04/25/17 16:30 05/25/17 16:29 04/25/17 19:04 1 EA
[2017-04-27] MEDS ORDERED: SPIR100T PO (08:11)
[2017-04-27] MEDS ORDERED: ANT25 PO (08:11)
--- NOTE | 2017-04-27 08:17 | Discharge Instructions ---
Discharge Instructions Date of Service Apr 27, 2017. Admission Reason for Admission: Generalized Weakness Discharge Discharge Diagnosis / Problem: DIZZINESS Discharge Goals Goal(s): Diagnostic testing, Therapeutic intervention Activity Recommendations Activity Limitations: as noted below (NO HEAVY EXERTION UNTIL RE-EVALUATED BY PRIMARY CARE PHYSICIAN) Lifting Limitations: until after follow-up appointment Exercise/Sports Limitations: until after follow-up appointment Driving or Machine Use: no driving until re-evaluated by primary care physician . Instructions / Follow-Up Instructions / Follow-Up PLEASE REVIEW YOUR NEW MEDICATION LIST AND FOLLOW INSTRUCTIONS CAREFULLY. PLEASE CALL PRIMARY CARE PHYSICIAN OR RETURN TO ER IMMEDIATELY IF WITH RECURRENCE OF SYMPTOMS, INCREASED DIZZINESS, WEAKNESS, CONFUSION, CONSTIPATION, ABDOMINAL OR LEG SWELLING. FOLLOW UP WITH DR. MARITNEZ WEDNESDAY MAY 03, 2017 AT 1045 AM. FOLLOW UP WITH GASTROENTEROLOGY CLINIC IN 1-2 WEEKS. Current Hospital Diet Patient's current hospital diet: Low Sodium Diet (2gm Na) Discharge Diet Recommended Diet: Low Sodium Diet (2gm Na) Pending Studies Studies pending at discharge: yes List of pending studies: REPEAT BLOOD WORK C/O PRIMARY CARE PHYSICIAN NEXT WEEK. Laboratory Results Hemoglobin A1c Test 02/24/17 06:30 Range/Units Estimated Average Glucose 105 mg/dl Hemoglobin A1c 5.3 4.5-5.6 % Medical Emergencies . Who to Call and When: Medical Emergencies: If at any time you feel your situation is an emergency, please call 911 immediately. . Non-Emergent Contact Non-Emergency issues call your: Primary Care Provider, Bedspread Seamer Call Non-Emergent contact if: you have a fever, you have any medication questions . . "Provider Documentation" section prepared by Fernando Gaming. .
--- NOTE | 2017-04-27 08:22 | Discharge Summary ---
Discharge Summary Date of Service Apr 27, 2017. Discharge Summary Admission Date: Apr 21, 2017 at 14:53 Discharge Date: Apr 27, 2017 Discharge Disposition: Home Principal Diagnosis: Dysequilibrium: Likely secondary to Vertigo; Hyponatremia and hyperammonemia could be contributory Secondary Diagnoses/Problems: Please refer to hospital course below for further details. Procedures: CHEST ONE VIEW PORTABLE CLINICAL HISTORY: CP eval for pna pain COMPARISON STUDY: 02/21/2017 FINDINGS: The bones soft tissues and hemidiaphragms are normal. The cardiomediastinal silhouette is normal. The lungs are clear. The pulmonary vasculature is normal. IMPRESSION: Negative chest. HEAD WITHOUT CONTRAST (CT) CT DOSE: 638.56 mGycm HISTORY: Mental status change dizzy eval for bleed TECHNIQUE: Multiaxial CT images of the head were performed without the use of intravenous contrast. A dose lowering technique was utilized adhering to the principles of ALARA. Comparison: 09/16/2016 Findings: The paranasal sinuses and mastoid air cells are clear. The calvarium and skull base are intact. The ventricles and sulci are within normal limits. There is no mass, hematoma, midline shift, or acute infarct. Impression: No acute intracranial abnormality. The above report was generated using voice recognition software. It may contain grammatical, syntax or spelling errors. Electronically signed by: Samir Garcia M.D. 04/21/2017 3:16 PM KUB HISTORY: Generalized abdominal pain. persistent nausea COMPARISON: Chest and abdominal series 07/22/2013. FINDINGS: The bowel gas pattern is unremarkable. There are no dilated loops of small bowel to suggest an obstruction. No renal calculi. No ureteral calculi. Calcifications in the deep pelvis likely represent phleboliths. No change in the mild bilateral femoral head deformity, left greater than right. No pneumoperitoneum or pneumatosis. IMPRESSION: Unremarkable bowel gas pattern. No evidence for bowel obstruction. Electronically signed by: Ángel Wilson M.D. 04/23/2017 10:44 AM ASCITES-ABDOMEN LIMITED CLINICAL HISTORY: 57 years-old Male presenting with ascites check. TECHNIQUE: Real-time grayscale and limited color Doppler ultrasound imaging of the abdomen was performed for a focused evaluation for ascites. COMPARISON: 02/25/2017. FINDINGS: No ascites. Mildly enlarged spleen measuring 14.8 cm in sagittal dimension. IMPRESSION: 1. No ascites. 2. Splenomegaly. Electronically signed by: Lavon Church M.D. 04/23/2017 2:00 PM Consultations: GASTROENTEROLOGY Pending Studies/Follow-Up: REPEAT PARTIAL RENAL PROFILE ON FOLLOW UP WITH PCP 1 WEEK POST DISCHARGE, PLEASE REFER TO HOSPITAL COURSE BELOW. Medication Reconciliation Changed Medications: Meclizine HCl (Meclizine HCl) 25 Mg Tab 12.5 MG PO TID PRN for Dizziness or Vertigo for 30 Days (Changed from: 25 MG) Spironolactone (Aldactone) 100 Mg Tab 100 MG PO BID for 30 Days (Changed from: QPM; Removed Instructions) Continued Medications: Albuterol Hfa (Ventolin Hfa) 200 Puffs/08088 Mcg Aers 2 PUFFS INH Q4 PRN for SOB/Wheezing, #1 INHALER Cyanocobalamin (Vitamin B-12) 100 Mcg Tab 100 MCG PO QAM Diclofenac Sodium (Topical) (Voltaren 1% Top Gel) 1 % Gel 1 APPLN TOP BID PRN for Fluticasone Propionate (Nasal) (Flonase Allergy Relief) 50 Mcg/Act Spr 2 SPRAYS GUANAKO DAILY PRN for PRN\\ Folic Acid (Folic Acid) 1 Mg Tab 1 MG PO QAM Furosemide (Lasix) 40 Mg Tab 40 MG PO BID, TAB Lactulose (Lactulose) 20 Gm/30 Ml Syrp 20 GM PO QID HOLD AFTER 3 BMS A DAY. Nicotine (Nicoderm Cq 21MG Patch) 21 Mg/24 Hr Dis 1 PATCH TD DAILY, PATCH Omeprazole (Prilosec) 40 Mg Cap 40 MG PO QAM, CAP Ondansetron Hcl (Zofran) 4 Mg Tab 4 MG PO Q6 PRN for Nausea, TAB Rifaximin (Xifaxan) 550 Mg Tab 550 MG PO BID Sertraline (Zoloft) 25 Mg Tab 25 MG PO DAILY, TAB Thiamine Hcl (Vitamin B-1) 100 Mg Tab 100 MG PO QAM Valacyclovir Hcl (Valtrex) 1 Gm Tab 1000 MG PO DAILY, #21 TAB Discontinued Medications: Spironolactone (Spironolactone) 100 Mg Tab 200 MG PO QAM Admission Information HPI (per Admitting provider): The patient is a 57-year-old man with alcoholic cirrhosis who presents with difficulties walking since 5 AM this morning. He reports waking up and having bowel movement, but not feeling quite right. He reports having some orange juice mixed with lactulose and immediate urgency to have another BM again which was associated with vomiting one time. There was no diarrhea noted and no blood in his stool. He has not felt ill recently. The vomitus was nonbloody. He reported feeling a dysequilibrium as he has in the past. He denies any weight gain or swelling in the abdomen or legs. He denies any changes in diuretics or diet. He is not on a fluid restriction as outpatient. He has chronic shortness of breath which has not changed. He denies any fevers chills or abdominal pain. He does have chronic visual changes which are unchanged. He denies any strokelike symptoms. He admits to some chest pain in his left anterior chest wall that felt like daggers, were not precipitated her triggered by anything, where fleeting, and were intermittent throughout the day. He denies any history of heart disease. He denies any associated symptoms of diaphoresis, palpitations, or shortness of breath cough. He is currently not having any chest pain. He reports tolerating p.o. He has a walker at home for time such as these when he has difficulty walking. He reports difficulty walking at least once weekly in the ER he is mentating well and is alert and appropriate with blood pressure 136/76 pulse 92 respirations 18 oxygenating 98% on room air. He is afebrile. Physical exam was unremarkable. A chest x-ray was negative a CT of his head was negative. Labs reveal a normal white count and H&H with a chronic thrombocytopenia, platelets of 60 6K. Sodium was 129 which is around his baseline and he had normal renal function. INR was 1.1 albumin was 3.8 urinalysis was negative liver function tests were unremarkable, ammonia level was 69. EKG revealed sinus rhythm with no ST elevations or other signs of ischemia. He was admitted to the hospital for further evaluation of his abnormal gait. Physical Exam (per Admitting): General Appearance: WD/WN, no apparent distress Head: normocephalic, atraumatic Eyes: normal inspection, PERRL, EOMI, sclerae normal ENT: normal ENT inspection, hearing grossly normal, pharynx normal Neck: supple, no adenopathy, trachea midline Respiratory/Chest: chest non-tender, lungs clear, normal breath sounds, no respiratory distress, no accessory muscle use Cardiovascular: regular rate, rhythm, no edema, no gallop, no JVD, no murmur , normal peripheral pulses Abdomen/GI: normal bowel sounds, non tender, soft, no organomegaly Back: normal inspection Extremities/Musculoskelatal: normal inspection, no calf tenderness, no pedal edema, normal range of motion, non-tender, + pertinent finding (Strength 5 /5 throughout) Neurologic/Psych: bone char operator II-XII nml as tested, no motor/sensory deficits, alert , normal mood/affect, oriented x 3 Skin: normal color, warm/dry, no rash Hospital Course Patient is a 57 yr old patient with alcoholic cirrhosis presents with Dysequilibrium and chest pain Dysequilibrium: Likely secondary to Vertigo Hyponatremia and Hyperammonemia could be contributory CT head: No acute intracranial abnormality Using Meclizine PRN which helps PT/OT: recommend return home --management of hyponatremia and hyper-ammonemia as noted below Hyponatremia baseline low 130s Na decreased to 127 --> held off diuretics, given IV NSS Nephro consulted Dr. Valle Na improved to 134 resume diuretics , decrease Spironolactone from 200mg in AM and 100mg in PM to 100mg BID monitor Na and K level in 1 week and regularly monitor volume status, and adjust Spironolactone accordingly Elevated Ammonia improved no signs of hepatic encephalopathy continue Lactulose QID GI consulted Constipation, resolved PRN Dulcolax suppository PRN Tap water enema Chest pain: Resolved No H/O CAD EKG: No signs of Ischemia Troponin X 2: negative Aspirin contraindicated in setting of thrombocytopenia. Chronic Thrombocytopenia: Likely secondary to Cirrhosis No active bleeding issues Monitor Platelets and Hg Alcoholic Cirrhosis: No signs of decompensation Denies any recent alcohol use Has been adherent with meds continue Diuretics, Lactulose, Rifaximin Follows with as outpatient Chronic Vertigo: Orthostatic vital signs: no orthostasis Meclizine PRN May need follow up with ENT as outpatient Tobacco use: Counseled to quit smoking Nicotine Patch Disposition: d/c home ff up with PCP in 3-5 days ff up with GI in 1-2 weeks Total time spent on discharge = 35 minutes This includes examination of the patient, discharge planning, medication reconciliation, and communication with other providers. Discharge Instructions Discharge Instructions Date of Service Apr 27, 2017. Admission Reason for Admission: Generalized Weakness Discharge Discharge Diagnosis / Problem: DIZZINESS Discharge Goals Goal(s): Diagnostic testing, Therapeutic intervention Activity Recommendations Activity Limitations: as noted below (NO HEAVY EXERTION UNTIL RE-EVALUATED BY PRIMARY CARE PHYSICIAN) Lifting Limitations: until after follow-up appointment Exercise/Sports Limitations: until after follow-up appointment Driving or Machine Use: no driving until re-evaluated by primary care physician . Instructions / Follow-Up Instructions / Follow-Up PLEASE REVIEW YOUR NEW MEDICATION LIST AND FOLLOW INSTRUCTIONS CAREFULLY. PLEASE CALL PRIMARY CARE PHYSICIAN OR RETURN TO ER IMMEDIATELY IF WITH RECURRENCE OF SYMPTOMS, INCREASED DIZZINESS, WEAKNESS, CONFUSION, CONSTIPATION, ABDOMINAL OR LEG SWELLING. FOLLOW UP WITH DR. MARTINEZ WEDNESDAY MAY 03, 2017 AT 1045 AM. FOLLOW UP WITH GASTROENTEROLOGY CLINIC IN 1-2 WEEKS. Current Hospital Diet Patient's current hospital diet: Low Sodium Diet (2gm Na) Discharge Diet Recommended Diet: Low Sodium Diet (2gm Na) Pending Studies Studies pending at discharge: yes List of pending studies: REPEAT BLOOD WORK C/O PRIMARY CARE PHYSICIAN NEXT WEEK. Laboratory Results Hemoglobin A1c Test 02/24/17 06:30 Range/Units Estimated Average Glucose 105 mg/dl Hemoglobin A1c 5.3 4.5-5.6 % Medical Emergencies . Who to Call and When: Medical Emergencies: If at any time you feel your situation is an emergency, please call 911 immediately. . Non-Emergent Contact Non-Emergency issues call your: Primary Care Provider, Brick Grader Call Non-Emergent contact if: you have a fever, you have any medication questions . . "Provider Documentation" section prepared by Fernando Gaming. .
[2017-04-27] MEDS: PANTOprazole SOD 40 MG TAB PO SCH (08:33)
[2017-04-27] MEDS: DOCUSATE SODIUM/SENNA 50/8.6MG TAB PO SCH (08:33)
[2017-04-27] MEDS: SERTRALINE HCL 50 MG TAB PO SCH (08:33)
[2017-04-27] MEDS: RIFAXIMIN TAB 550 MG TAB PO SCH (08:34)
[2017-04-27] MEDS: THIAMINE HCL 100 MG TAB PO SCH (08:34)
[2017-04-27] MEDS: CYANOCOBALAMIN 100 MCG TAB (VIT B-12) PO SCH (08:35)
[2017-04-27] MEDS: NICOTINE 21 MG/24 HR TDSY TD SCH (08:36)
[2017-04-27] MEDS: LACTULOSE SYRUP 20 GM/30 ML UDC PO SCH ×2 (08:36→12:00)
[2017-04-27] MEDS: POLYETHYLENE (MIRALAX) 17 GM PACK PO SCH (08:38)
[2017-04-27 08:58] VITALS: BP 111/65; PULSE 84; TEMP 36.7; O2SAT 98
--- NOTE | 2017-04-27 10:00 | Nephrology Progress Note ---
Nephrology Progress Note Date of Service: Apr 27, 2017. Subjective 57 yo male with alcoholic cirrhosis who developed hyponatremia. attributed to volume depletion.Patient is seated comfortably in bed. awaiting discharge. reviewed outpatient diuretic dosing and importance of not having excessive fluid intake. bowel movements still good. good urine output. chronic lightheadedness unchanged with sudden elevating movement such as standing quickly. Objective Date Time Temp Pulse Resp B/P (MAP) Pulse Ox O2 Delivery O2 Flow Rate FiO2 04/27/17 08:58 36.7 84 18 98 Room Air 04/27/17 07:38 Room Air 04/27/17 07:33 36.7 84 18 111/65 (80) 98 Room Air 04/27/17 00:00 36.7 80 20 137/80 (99) 97 Room Air 04/27/17 00:00 Room Air 04/26/17 16:10 Room Air 04/26/17 14:51 36.8 78 17 115/71 (86) 96 Room Air Physical Exam: General-aaox3 Eyes-no scleral icterus ENT-mmm Neck-supple Lungs-cta Heart-rrr Abdomen-bs+ s/nt/nd Extremities-no c/c/e Neuro-nonfocal Current Inpatient Medications Medications (Trade) Dose Ordered Sig/Kiya Route Start Time Stop Time Status Last Admin Dose Admin Ondansetron HCl (Zofran Inj) 4 mg Q6H PRN IV 04/21/17 15:15 05/21/17 15:14 04/23/17 09:06 4 MG Albuterol (Ventolin Hfa Inhaler) 2 puffs Q4 PRN INH 04/21/17 15:15 05/21/17 15:14 04/26/17 01:56 2 PUFFS Cyanocobalamin (Vitamin B-12 Tab) 100 mcg QAM PO 04/22/17 09:00 05/22/17 08:59 04/27/17 08:35 100 MCG Fluticasone Propionate (Flonase Nasal [place]) 2 sprays DAILY PRN GUANAKO 04/21/17 15:15 05/21/17 15:14 Folic Acid (Folvite Tab) 1 mg QAM PO 04/22/17 09:00 05/22/17 08:59 04/27/17 08:35 1 MG Ondansetron HCl (Zofran Tab) 4 mg Q6 PRN PO 04/21/17 15:15 05/21/17 15:14 Sertraline HCl (Zoloft Tab) 25 mg DAILY PO 04/22/17 09:00 05/22/17 08:59 04/27/17 08:33 25 MG Thiamine HCl (Vitamin B-1 Tab) 100 mg QAM PO 04/22/17 09:00 05/22/17 08:59 04/27/17 08:34 100 MG Pantoprazole Sodium (Protonix Tab) 40 mg QAM PO 04/22/17 09:00 05/22/17 08:59 04/27/17 08:33 40 MG Valacyclovir HCl (Valtrex Tab) 1,000 mg DAILY PO 04/22/17 09:00 05/22/17 08:59 04/27/17 08:33 1,000 MG Nicotine (Nicoderm Cq 21MG Patch) 1 patch DAILY TD 04/22/17 09:00 05/22/17 08:59 04/27/17 08:36 1 PATCH Meclizine HCl (Antivert Tab) 12.5 mg TID PRN PO 04/22/17 05:45 05/22/17 05:44 04/22/17 06:45 12.5 MG Lactulose (Chronulac Syrup) 20 gm QID PO 04/24/17 12:00 05/21/17 16:59 04/26/17 20:22 20 GM Rifaximin (Xifaxan Tab) 550 mg BID PO 04/24/17 20:00 05/21/17 20:59 04/27/17 08:34 550 MG Senna/Docusate Sodium (Senokot S Tab) 1 tab BID PO 04/24/17 20:00 05/24/17 19:59 04/27/17 08:33 1 TAB Polyethylene (Miralax Powder Packet) 17 gm DAILY PRN PO 04/24/17 04:30 05/24/17 04:29 Polyethylene (Miralax Powder Packet) 17 gm DAILY PO 04/24/17 08:00 05/24/17 07:59 04/26/17 08:40 17 GM Bisacodyl (Dulcolax Supp) 10 mg DAILY PRN [place] 04/25/17 16:30 05/25/17 16:29 Miscellaneous (Tap Water Enema) 1 ea DAILY PRN NH 04/25/17 16:30 05/25/17 16:29 04/25/17 19:04 1 EA Assessment & Plan hyponatremia-to continue outpt diuretics and to avoid high fluid intake. volume status appropriate. can continue to follow hyponatremia from an outpatient setting. This patient was seen and treated with direct collaboration with Dr. Valle. Thank you for the opportunity to participate in this patient's care. Appreciate the Consult. ATTENDING NOTE: I performed a history and physical examination of the patient, including specifically on history-continued lightheadedness which is a chronic condition , on physical exam-cta, and my impression and plan are hyponatremia-continue outpt diuretics and repeat bmp as an outpt. I have discussed the patient's management with Cherrie Madsen PA-C, Please refer to above note for the documented findings and plan of care. Lula Valle DO
== END 2017-04-27 13:40 | disposition home health service (06) | DRG 642 ==
LOC: EDBD 12:51 → C.EDB 12:55 → C.2T 14:53 → ENRESERV 15:24 → C.MS4W 04-23 11:16
PROVIDERS: ADMIT Hospitalist; ATTEND Internal Medicine
DX: E72.20 Disorder of urea cycle metabolism, unspecified (principal); E87.1 Hypo-osmolality and hyponatremia; R42 Dizziness and giddiness; K70.30 Alcoholic cirrhosis of liver without ascites; R07.9 Chest pain, unspecified; K59.00 Constipation, unspecified; D69.59 Other secondary thrombocytopenia; A60.02 Herpesviral infection of other male genital organs; F10.21 Alcohol dependence, in remission; F17.220 Nicotine dependence, chewing tobacco, uncomplicated; Z79.899 Other long term (current) drug therapy; Z81.1 Family history of alcohol abuse and dependence; Z82.49 Family history of ischemic heart disease and other diseases of the circulatory system; Z83.3 Family history of diabetes mellitus

== ENCOUNTER 2017-05-04 11:09 | Observation (INO) | payer OTHER ==
[~2017-05-04] VITALS: Ht 167.6 cm; Wt 93.6 kg
[~2017-05-04 11:09] MED LIST changes: -BENZ100C7 PO; +SERT25TA PO; -SPRN100 PO; +VALA1TAB2 PO; -VALA1TAB31 PO
[2017-05-04] MEDS ORDERED: ONDANSETRON INJ 2 MG/ML 2 ML VIAL IV STA (11:59)
[2017-05-04] MEDS ORDERED: HYDROmorphone INJ 1 MG/ML SYR IV ONE ×2 (12:00→16:15)
--- NOTE | 2017-05-04 12:28 | EMERGENCY ROOM VISIT NOTE ---
History First contact with patient: 11:44 Chief Complaint: ABDOMINAL PAIN Stated Complaint: BACK/ABDOMINAL PAIN History of Present Illness The patient is a 57 year old male who presents to the Emergency Room with complaints of left-sided flank pain radiating to the left side of the abdomen and up into his chest that started at 2 AM this morning. It awoke him from sleep. He describes as a sharp, stabbing sensation that is worse with sitting up. He also had 2 episodes of nausea, vomiting and diarrhea. He denies any fever. The patient has a history of alcoholic cirrhosis. He was admitted to the hospital 1 week ago. He reports never feeling a whole lot better after being discharged. He denies any difficulty breathing. He tried Zofran at home for his symptoms with no relief Review of Systems 10 system review performed and negative unless noted in HPI or below Past Medical/Surgical History Medical Problems: (1) Abdominal pain (2) Alcoh Dep Nec/Nos-Unspec (3) Alcohol Cirrhosis Liver (4) Alcoholic cirrhosis of liver with ascites (5) Anemia (6) Ascites due to alcoholic cirrhosis (7) Esophageal varices in alcoholic cirrhosis (8) Genital herpes (9) Gynecomastia (10) Hepatic encephalopathy (11) History of portal vein thrombosis (12) Intractable nausea and vomiting (13) Portal hypertensive gastropathy (14) Portal vein thrombosis (15) Thrombocytopenia (16) Tobacco Use Disorder Surgical Problems: (1) History of carpal tunnel surgery (2) History of dental surgery Family History Alcohol abuse SISTER Cancer MOTHER (Lymphoma) Diabetes mellitus FATHER Heart disease Hypertension Social History Smoking Status: Former Smoker Alcohol Use: none Drug Use: none Marital Status: , in relationship Housing Status: lives alone Occupation Status: unemployed Current/Historical Medications Scheduled Cyanocobalamin (Vitamin B-12), 100 MCG PO QAM Folic Acid (Folic Acid), 1 MG PO QAM Furosemide (Lasix), 40 MG PO BID Lactulose (Lactulose), 20 GM PO QID Nicotine (Nicoderm Cq 21MG Patch), 1 PATCH TD DAILY Omeprazole (Prilosec), 40 MG PO QAM Rifaximin (Xifaxan), 550 MG PO BID Sertraline (Zoloft), 25 MG PO DAILY Spironolactone (Aldactone), 100 MG PO BID Thiamine Hcl (Vitamin B-1), 100 MG PO QAM Valacyclovir Hcl (Valtrex), 1,000 MG PO DAILY Scheduled PRN Albuterol Hfa (Ventolin Hfa), 2 PUFFS INH Q4 PRN for SOB/Wheezing Diclofenac Sodium (Topical) (Voltaren 1% Top Gel), 1 APPLN TOP BID PRN for Fluticasone Propionate (Nasal) (Flonase Allergy Relief), 2 SPRAYS GUANAKO DAILY PRN for PRN\ Meclizine HCl (Meclizine HCl), 12.5 MG PO TID PRN for Dizziness or Vertigo Ondansetron Hcl (Zofran), 4 MG PO Q6 PRN for Nausea Physical Exam Vital Signs Date Time Temp Pulse Resp B/P (MAP) Pulse Ox O2 Delivery O2 Flow Rate FiO2 05/04/17 20:08 101 20 132/95 96 Room Air 05/04/17 18:12 91 05/04/17 17:28 88 20 110/74 95 Room Air 05/04/17 16:29 96 20 115/67 95 Room Air 05/04/17 15:30 93 16 117/74 95 Room Air 05/04/17 15:12 95 20 152/97 95 Room Air 05/04/17 13:46 92 18 108/66 93 Room Air 05/04/17 12:53 95 05/04/17 12:50 92 20 95/56 95 Room Air 05/04/17 11:17 37.3 95 18 134/69 97 Room Air Physical Exam VITALS: Vitals are noted on the nurse's note and reviewed by myself. Vital signs stable. GENERAL: 57-year-old male, in moderate discomfort, SKIN: Old ecchymosis noted to the left arm HEAD: Normocephalic atraumatic. MOUTH: Mucous membranes slightly dry NECK: Supple without nuchal rigidity. No lymphadenopathy. Cervical spine is nontender. No JVD. HEART: Regular rate and rhythm without murmurs gallops or rubs. LUNGS: Clear to auscultation bilaterally without wheezes, rales or rhonchi. No accessory muscle use. ABDOMEN: Positive bowel sounds x 4.Soft, tenderness to palpation in the epigastric region without organomegaly. No guarding or rebound tenderness. MUSCULOSKELETAL: +1 pitting edema in the lower extremities bilaterally Strength 5/5 throughout. NEURO: Patient was alert and oriented to person place and time. Normal sensation to touch. No focal neurological deficits. Medical Decision & Procedures ER Provider Diagnostic Interpretation: CT abd/pelvis IMPRESSION: 1. No evidence of bowel obstruction or acute intra-abdominal pathology. 2. Cirrhosis with portal hypertension evidenced by splenomegaly and varices. 3. Physiologically distended gallbladder without other evidence to suggest cholecystitis. Electronically signed by: Lavon Church M.D. 05/04/2017 4:58 PM Dictated Date/Time: 05/04/2017 4:51 PM The status of this report is Signed. Draft = Not yet reviewed or approved by Radiologist. Signed = Reviewed and approved by Radiologist. Chest and abdominal x-ray IMPRESSION: 1. Interval development of mild small bowel dilatation since KUB of April 23, 2017. This may reflect a partial small bowel obstruction or ileus. 2. No acute cardiopulmonary findings. Electronically signed by: Leonardo Brewster M.D. 05/04/2017 1:13 PM Dictated Date/Time: 05/04/2017 1:10 PM The status of this report is Signed. Draft = Not yet reviewed or approved by Radiologist. Signed = Reviewed and approved by Radiologist. <AttendingPhy></AttendingPhy> <FamilyPhy>Najma Garcia M.D.</FamilyPhy> < PrimaryPhy>Najma Garcia M.D.</PrimaryPhy> <UnitNumber>[id number]</UnitNumber > <VisitNumber>[id number]</VisitNumber> <PatientName>KENDYAFBIANA W</ PatientName> <DateOfBirth>1960</DateOfBirth> <Location>C.EDB</Location> < ServiceDate>05/04/17</ServiceDate> <MNE>ESINDI</MNE> <OrderingPhy>Allison Castellano PA-C</OrderingPhy> <OrderingPhyMNE>f rep ord dr adkins</OrderingPhyMNE> < DictatingPhyMNE>f rep dict dr adkins</DictatingPhyMNE> <CCListMNE>f rep ct mne</ CCListMNE> <AdmittingPhyMNE>f pt admit dr adkins</AdmittingPhyMNE> <AttendingPhyMNE >f pt attend dr adkins</AttendingPhyMNE> <ConsultingPhyMNE>f pt consult dr adkins</ConsultingPhyMNE> <FamilyPhyMNE>f pt fam dr adkins</FamilyPhyMNE> <OtherPhyMNE>f pt other dr adkins</OtherPhyMNE> < PrimaryPhyMNE>f pt prim care dr adkins</PrimaryPhyMNE> <ReferringPhyMNE>f pt referring dr adkins</ReferringPhyMNE> Laboratory Results 05/04/17 12:30 Red Blood Count 3.76, Mean Corpuscular Volume 101.9, Mean Corpuscular Hemoglobin 35.4, Mean Corpuscular Hemoglobin Concent 34.7, Mean Platelet Volume 11.0, Neutrophils (%) (Auto) 90.6, Lymphocytes (%) (Auto) 2.4, Monocytes (%) ( Auto) 6.2, Eosinophils (%) (Auto) 0.6, Basophils (%) (Auto) 0.2, Neutrophils # ( Auto) 4.57, Lymphocytes # (Auto) 0.12, Monocytes # (Auto) 0.31, Eosinophils # ( Auto) 0.03, Basophils # (Auto) 0.01 05/04/17 12:30 Test 05/04/17 12:30 05/04/17 15:10 White Blood Count 5.04 K/uL (4.8-10.8) Red Blood Count 3.76 M/uL (4.7-6.1) Hemoglobin 13.3 g/dL (14.0-18.0) Hematocrit 38.3 % (42-52) Mean Corpuscular Volume 101.9 fL (80-100) Mean Corpuscular Hemoglobin 35.4 pg (25-34) Mean Corpuscular Hemoglobin Concent 34.7 g/dl (32-36) Platelet Count 56 K/uL (130-400) Mean Platelet Volume 11.0 fL (7.4-10.4) Neutrophils (%) (Auto) 90.6 % Lymphocytes (%) (Auto) 2.4 % Monocytes (%) (Auto) 6.2 % Eosinophils (%) (Auto) 0.6 % Basophils (%) (Auto) 0.2 % Neutrophils # (Auto) 4.57 K/uL (1.4-6.5) Lymphocytes # (Auto) 0.12 K/uL (1.2-3.4) Monocytes # (Auto) 0.31 K/uL (0.11-0.59) Eosinophils # (Auto) 0.03 K/uL (0-0.5) Basophils # (Auto) 0.01 K/uL (0-0.2) RDW Standard Deviation 51.0 fL (36.4-46.3) RDW Coefficient of Variation 13.6 % (11.5-14.5) Immature Granulocyte % (Auto) 0.0 % Immature Granulocyte # (Auto) 0.00 K/uL (0.00-0.02) Anion Gap 6.0 mmol/L (3-11) Est Creatinine Clear Calc Drug Dose 79.3 ml/min Estimated GFR () 85.9 Estimated GFR (Non- 74.1 BUN/Creatinine Ratio 13.3 (10-20) Lactic Acid Level 1.8 mmol/L (0.4-2.0) Calcium Level 8.6 mg/dl (8.5-10.1) Total Bilirubin 1.8 mg/dl (0.2-1) Aspartate Amino Transf (AST/SGOT) 44 U/L (15-37) Alanine Aminotransferase (ALT/SGPT) 30 U/L (12-78) Alkaline Phosphatase 62 U/L (45-117) Ammonia 38.0 umol/L (11-32) Troponin I < 0.015 ng/ml (0-0.045) Total Protein 6.9 gm/dl (6.4-8.2) Albumin 3.2 gm/dl (3.4-5.0) Globulin 3.7 gm/dl (2.5-4.0) Albumin/Globulin Ratio 0.9 (0.9-2) Lipase 121 U/L (73-393) Urine Color DK YELLOW Urine Appearance CLOUDY (CLEAR) Urine pH 6.5 (4.5-7.5) Urine Specific [place] 1.026 (1.000-1.030) Urine Protein NEG (NEG) Urine Glucose (UA) NEG (NEG) Urine Ketones TRACE (NEG) Urine Occult Blood NEG (NEG) Urine Nitrite POS (NEG) Urine Bilirubin NEG (NEG) Urine Urobilinogen NEG (NEG) Urine Leukocyte Esterase TRACE (NEG) Urine WBC (Auto) 1-5 /hpf (0-5) Urine RBC (Auto) 5-10 /hpf (0-4) Urine Hyaline Casts (Auto) 5-10 /lpf (0-5) Urine Epithelial Cells (Auto) >30 /lpf (0-5) Urine Bacteria (Auto) NEG (NEG) Medications Administered Medications (Trade) Dose Ordered Sig/Kiya Route Start Time Stop Time Status Last Admin Dose Admin Hydromorphone HCl (Dilaudid Inj) 1 mg ONE ONCE IV 05/04/17 12:00 05/04/17 12:02 DC 05/04/17 12:40 1 MG Ondansetron HCl (Zofran Inj) 4 mg NOW STAT IV 05/04/17 11:59 05/04/17 12:02 DC 05/04/17 12:40 4 MG Hydromorphone HCl (Dilaudid Inj) 0.5 mg ONE ONCE IV 05/04/17 16:15 05/04/17 16:16 DC 05/04/17 16:30 0.5 MG Promethazine HCl 25 mg/Sodium Chloride 51 ml @ 204 mls/hr NOW STAT IV 05/04/17 17:03 05/04/17 17:21 DC 05/04/17 17:27 204 MLS/HR ECG Per My Interpretation Indication: nausea Rate (beats per minute): 91 Rhythm: normal sinus ED Course Patient was seen and examined Vital signs including blood pressure were reviewed medications list was verified with patient Labs were obtained, and a saline lock was established The patient was medicated with Dilaudid 1 mg IV and Zofran 4 mg IV Upon reassessment, the patient was still complaining of nausea. He was given Phenergan 25 mg IV. Imaging was performed and reviewed Upon reassessment, the patient was resting. We discussed his workup. He voiced understanding, was comfortable being admitted. The case was discussed with case management and the [facility] service. He will be admitted for further workup and treatment. Medical Decision Differential diagnosis: Pancreatitis, cirrhosis, metabolic encephalopathy, bowel obstruction, ileus, viral GI illness, bacterial GI illness, ureteral stone , diverticulitis, cardiac ischemia, choledocholithiasis, cholecystitis This patient is a 57-year-old male with a history of cirrhosis that presents to the emergency department with abdominal pain, nausea and vomiting. On exam, he was dehydrated and tender in the epigastric region. His labs are fairly unchanged when compared to previous. His ammonia has improved. There is no leukocytosis. X-rays were performed concerning for an ileus or partial small bowel obstruction. A CT was ordered. No bowel obstruction was noted. The patient unfortunately continued to have nausea and vomiting despite treatments with multiple antiemetics. For this reason, I do not feel comfortable sending the patient home. He will be admitted to the hospital for further workup and treatment. This chart was completed in part utilizing [employer] Speech Voice Recognition software. Attempts were made to minimize the grammatical errors, random word insertions, pronoun errors and incomplete sentences. Any formal questions or concerns about the content, text or information contained within the body of this dictation should be directly addressed to the provider for clarification. Medication Reconcilliation Current Medication List: was personally reviewed by me Blood Pressure Screening Patient's blood pressure: Normal blood pressure Consults Consulting Physician: Dick hiltonist Impression Primary Impression: Intractable nausea and vomiting Departure Information Referrals Najma Garcia M.D. (PCP) Patient Instructions My [facility]
[2017-05-04 12:53] LABS: HEMATOCRIT 38.3 % (42-52); HEMOGLOBIN 13.3 g/dL (14.0-18.0); MEAN CELL VOLUME 101.9 fL (80-100); MEAN CORPUSCULAR HEMOGLOBIN 35.4 pg (25-34); MEAN CORPUSCULAR HGB CONC 34.7 g/dl (32-36); RED CELL DISTRIBUTION WIDTH CV 13.6 % (11.5-14.5); WHITE BLOOD COUNT 5.04 K/uL (4.8-10.8)
[2017-05-04 12:55] LABS: PLATELET COUNT 56 K/uL (130-400)
[2017-05-04 13:13] LABS: ALBUMIN 3.2 gm/dl (3.4-5.0); ALKALINE PHOSPHATASE 62 U/L (45-117); ALT/SGPT 30 U/L (12-78); AST/SGOT 44 U/L (15-37); BLOOD UREA NITROGEN 15 mg/dl (7-18); CALCIUM 8.6 mg/dl (8.5-10.1); CARBON DIOXIDE 23 mmol/L (21-32); GLUCOSE 87 mg/dl (70-99); LIPASE 121 U/L (73-393); POTASSIUM 4.6 mmol/L (3.5-5.1); SODIUM 135 mmol/L (136-145); TOTAL PROTEIN 6.9 gm/dl (6.4-8.2)
--- NOTE | 2017-05-04 13:14 | DIAGNOSTIC IMAGING REPORT ---
PA CHEST RADIOGRAPH AND UPRIGHT AND SUPINE AP RADIOGRAPHS OF THE ABDOMEN CLINICAL HISTORY: Epigastric pain, nausea and vomiting. COMPARISON STUDY: Chest CT February 22, 2017 and KUB April 23, 2017. FINDINGS: Pericardial calcifications are again noted. There is no pneumothorax or pleural effusion. There is no consolidation. Pulmonary vascularity is normal. Cardiomediastinal silhouette is stable. There is no free air. There has been interval development of mild small bowel dilatation since KUB of April 23, 2017. There is scattered colonic gas. Chronic deformity of both femoral heads is incidentally noted. IMPRESSION: 1. Interval development of mild small bowel dilatation since KUB of April 23, 2017. This may reflect a partial small bowel obstruction or ileus. 2. No acute cardiopulmonary findings. Electronically signed by: Leonardo Brewster M.D. 05/04/2017 1:13 PM Dictated Date/Time: 05/04/2017 1:10 PM
[2017-05-04 13:17] LABS: BASO % 0.2 %; BASO ABS # 0.01 K/uL (0-0.2); EOS % 0.6 %; EOS ABS # 0.03 K/uL (0-0.5); LYMPH % 2.4 %; LYMPH ABS # 0.12 K/uL (1.2-3.4); MONO % 6.2 %; MONO ABS # 0.31 K/uL (0.11-0.59); NEUT % 90.6 %; NEUT ABS # 4.57 K/uL (1.4-6.5)
[2017-05-04] MEDS ORDERED: OPTIRAY 320 IV PRN (14:15)
--- NOTE | 2017-05-04 14:17 | EMERGENCY ROOM VISIT NOTE ---
ED Visit Note First contact with patient: 11:44 I did evaluate and examine this patient myself. I did guide management for the patient. I agree with the PA's assessment as discussed. Please see the PAs dictation for further details. I did independently review the x-rays, CAT scan and blood work.
--- NOTE | 2017-05-04 16:59 | DIAGNOSTIC IMAGING REPORT ---
ABD/PELVIS IV AND ORAL CONT CLINICAL HISTORY: 57 years-old Male presenting with n/v abd pain ?SBO. TECHNIQUE: Multidetector CT of the abdomen and pelvis was performed after the administration of oral and intravenous contrast. IV contrast: 93 mL of Optiray 320. A dose lowering technique was used consistent with the principles of ALARA (as low as reasonably achievable). COMPARISON: 02/22/2017. CT DOSE (mGy.cm): The estimated cumulative dose is 588.12 mGy.cm. 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 Lung bases: Minimal basilar opacities, likely atelectasis. Normal heart size. Coronary artery calcification. No pericardial or pleural effusion. Liver: Nodular contour of the liver consistent with cirrhosis. No focal lesion allowing for the single phase of contrast. Patent hepatic vasculature with hypertrophy of the hepatic artery. Recanalization of periumbilical veins. Biliary: No intrahepatic or extrahepatic biliary ductal dilatation. Physiologically distended gallbladder. No wall thickening, pericholecystic fluid, or inflammatory change. Pancreas: Normal. Spleen: Enlarged, which measures 16.3 cm in maximal sagittal dimension.. Adrenal glands: Normal. 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 Normal renal parenchyma. No hydronephrosis. No nephrolithiasis. Normal ureters. Bladder: Incompletely evaluated secondary to underdistention. Pelvic organs: Prostate and seminal vesicles normal. Bowel: Normal appendix. No bowel obstruction. Peritoneal cavity: No free fluid or intraperitoneal gas. Trace vague infiltration of the root of the small bowel mesentery somewhat centered at the pancreatic head and tail. Lymph nodes: No enlarged lymph nodes in the abdomen or pelvis. Vasculature: Aorta and IVC patent and normal in caliber. Evidence of esophageal/esophageal varices. Abdominal wall: Normal. Musculoskeletal: Degenerative changes of the spine. Bilateral pars defects of L5. IMPRESSION: 1. No evidence of bowel obstruction or acute intra-abdominal pathology. 2. Cirrhosis with portal hypertension evidenced by splenomegaly and varices. 3. Physiologically distended gallbladder without other evidence to suggest cholecystitis. Electronically signed by: Lavon Church M.D. 05/04/2017 4:58 PM Dictated Date/Time: 05/04/2017 4:51 PM
[2017-05-04] MEDS ORDERED: PROMETHAZINE HCL INJ 25 MG in SODIUM CHLORIDE 0.9% 50ML 50 ML IV STA (17:03)
--- NOTE | 2017-05-04 18:31 | History and Physical ---
History & Physical Date & Time of Service: May 04, 2017 at 18:30 Chief Complaint: Back/Abdominal Pain Primary Care Physician: Najma Garcia M.D. History of Present Illness Source: patient, clinic records, hospital records Patient is a 57-year-old male with a past medical history of alcoholic cirrhosis , chronic thrombocytopenia, hyponatremia and vertigo and other medical problems listed below who presents with nausea/vomiting beginning last night. Patient states that he awoke during the night with sharp, stabbing left-sided flank pain with radiation to his LLQ. Today, pain localized to bilateral lower abdomen. Pain is described as a constant, 6/10 pressure. Associated nausea and 3 episodes of bilious vomit. Took Zofran at home without relief. Denies any hematemesis, melena or hematochezia but does endorse frontal headache, dizziness (chronic) and generalized weakness. Has shortness of breath but states that it is at baseline. Denies fever, chills, lightheadedness, near syncope, visual changes, chest pain, dysuria, constipation or LE swelling. Had a pork chop for dinner last night. Has been having 2-3 loose BMs daily on lactulose QID for h/o hepatic encephalopathy. States that has not been taking all medications but is unable to tell me which ones. Patient was recently hospitalized from 04/21-04/27 for ambulatory dysfunction, hyponatremia and dizziness. During admission, patient was seen by nephrology and GI. Spironolactone dose was changed from 200mg in the morning 100mg day and meclizine dose was decreased from 25-12.[address], orthostatics and chest x-ray were without abnormalities. Patient completed in-patient PT/OT and was discharged home with home health. States that he has continued to feel generally weak since discharge. Follows with [facility] and last EGD was in Nov 2016 with Grade 1 esophageal varices and colonoscopy was in Nov 2016 with colon polyps (Tubular adenoma and hyperplastic). Past Medical/Surgical History Medical Problems: (1) Alcoholic cirrhosis of liver with ascites Status: Chronic (2) Anemia Status: Chronic (3) Ascites due to alcoholic cirrhosis Status: Chronic (4) Esophageal varices in alcoholic cirrhosis Permanent Comment: EGD 10/24/13-grade 1 varices EGD: 11/28/16 - grage 1 varices lower third esophagus Status: Chronic (5) Genital herpes Status: Chronic (6) Gynecomastia Status: Chronic (7) Hepatic encephalopathy Status: Chronic (8) History of portal vein thrombosis Status: Chronic (9) Portal hypertensive gastropathy Status: Chronic (10) Portal vein thrombosis Status: Chronic (11) Thrombocytopenia Status: Chronic Surgical Problems: (1) History of carpal tunnel surgery Status: Resolved (2) History of dental surgery Status: Resolved Family History Alcohol abuse SISTER Cancer MOTHER (Lymphoma) Diabetes mellitus FATHER Heart disease Hypertension Social History Smoking Status: Former Smoker Smokeless Tobacco Use: Yes (some days) Drug Use: none Marital Status: , in relationship Housing status: lives alone Occupational Status: unemployed Immunizations History of Influenza Vaccine: Yes Influenza Vaccine Date: Nov 21, 2016 History of Tetanus Vaccine?: Yes Tetanus Immunization Date: Mar 08, 2009 History of Pneumococcal: Yes Pneumococcal Date: Aug 01, 2016 History of Hepatitis B Vaccine: Yes Hepatitis Immunization Date: Mar 30, 2017 Allergies Coded Allergies: No Known Allergies (Unverified , 05/04/17) Home Medications Scheduled Cyanocobalamin (Vitamin B-12), 100 MCG PO QAM Folic Acid (Folic Acid), 1 MG PO QAM Furosemide (Lasix), 40 MG PO BID Lactulose (Lactulose), 20 GM PO QID Nicotine (Nicoderm Cq 21MG Patch), 1 PATCH TD DAILY Omeprazole (Prilosec), 40 MG PO QAM Rifaximin (Xifaxan), 550 MG PO BID Sertraline (Zoloft), 25 MG PO DAILY Spironolactone (Aldactone), 100 MG PO BID Thiamine Hcl (Vitamin B-1), 100 MG PO QAM Valacyclovir Hcl (Valtrex), 1,000 MG PO DAILY Scheduled PRN Albuterol Hfa (Ventolin Hfa), 2 PUFFS INH Q4 PRN for SOB/Wheezing Diclofenac Sodium (Topical) (Voltaren 1% Top Gel), 1 APPLN TOP BID PRN for Fluticasone Propionate (Nasal) (Flonase Allergy Relief), 2 SPRAYS GUANAKO DAILY PRN for PRN\ Meclizine HCl (Meclizine HCl), 12.5 MG PO TID PRN for Dizziness or Vertigo Ondansetron Hcl (Zofran), 4 MG PO Q6 PRN for Nausea Review of Systems Constitutional: + weakness, + fatigue, No fever, No chills Eyes: No worsening of vision, No diplopia ENT: No hearing loss, No unusual epistaxis, No nasal symptoms Respiratory: + shortness of breath (chronic ) Cardiovascular: No chest pain, No orthopnea, No PND, No edema, No palpitations Abdomen: + pain, + nausea, + vomiting Musculoskeletal: No joint pain, No muscle pain Genitourinary - Male: No hematuria, No dysuria, No urinary frequency, No urinary urgency Neurologic: + balance problems, No memory loss, No paralysis, No weakness, No numbness/tingling Integumentary: No rash, No itch, No new/changing skin lesions, No bleeding Physical Exam Vital Signs Date Time Temp Pulse Resp B/P (MAP) Pulse Ox O2 Delivery O2 Flow Rate FiO2 05/04/17 18:12 91 05/04/17 17:28 88 20 110/74 95 Room Air 05/04/17 16:29 96 20 115/67 95 Room Air 05/04/17 15:30 93 16 117/74 95 Room Air 05/04/17 15:12 95 20 152/97 95 Room Air 05/04/17 13:46 92 18 108/66 93 Room Air 05/04/17 12:53 95 05/04/17 12:50 92 20 95/56 95 Room Air 05/04/17 11:17 37.3 95 18 134/69 97 Room Air General Appearance: no apparent distress, + pertinent finding (appears older than stated age ) Head: normocephalic, atraumatic Eyes: normal inspection, PERRL, sclerae normal ENT: normal ENT inspection, hearing grossly normal, pharynx normal (dry mucous membranes ) Neck: supple, thyroid normal, trachea midline Respiratory/Chest: chest non-tender, lungs clear, normal breath sounds, no respiratory distress, no accessory muscle use Cardiovascular: regular rate, rhythm, no murmur, normal peripheral pulses Abdomen/GI: soft, no organomegaly, + tenderness (Diffuse TTP, no guarding ) Back: normal inspection Extremities/Musculoskelatal: normal inspection, no calf tenderness, no pedal edema Neurologic/Psych: car examiner II-XII nml as tested, no motor/sensory deficits, alert, normal mood/affect, oriented x 3, + abnormal gait (unsteady ) Skin: normal color, warm/dry, + pertinent finding (multiple bruises on forearms ) Diagnostics Laboratory Results Results Past 24 Hours Test 05/04/17 12:30 05/04/17 15:10 Range/Units White Blood Count 5.04 4.8-10.8 K/uL Red Blood Count 3.76 4.7-6.1 M/uL Hemoglobin 13.3 14.0-18.0 g/dL Hematocrit 38.3 42-52 % Mean Corpuscular Volume 101.9 80-100 fL Mean Corpuscular Hemoglobin 35.4 25-34 pg Mean Corpuscular Hemoglobin Concent 34.7 32-36 g/dl Platelet Count 56 130-400 K/uL Mean Platelet Volume 11.0 7.4-10.4 fL Neutrophils (%) (Auto) 90.6 % Lymphocytes (%) (Auto) 2.4 % Monocytes (%) (Auto) 6.2 % Eosinophils (%) (Auto) 0.6 % Basophils (%) (Auto) 0.2 % Neutrophils # (Auto) 4.57 1.4-6.5 K/uL Lymphocytes # (Auto) 0.12 1.2-3.4 K/uL Monocytes # (Auto) 0.31 0.11-0.59 K/uL Eosinophils # (Auto) 0.03 0-0.5 K/uL Basophils # (Auto) 0.01 0-0.2 K/uL RDW Standard Deviation 51.0 36.4-46.3 fL RDW Coefficient of Variation 13.6 11.5-14.5 % Immature Granulocyte % (Auto) 0.0 % Immature Granulocyte # (Auto) 0.00 0.00-0.02 K/uL Sodium Level 135 136-145 mmol/L Potassium Level 4.6 3.5-5.1 mmol/L Chloride Level 106 98-107 mmol/L Carbon Dioxide Level 23 21-32 mmol/L Anion Gap 6.0 3-11 mmol/L Blood Urea Nitrogen 15 7-18 mg/dl Creatinine 1.10 0.60-1.40 mg/dl Est Creatinine Clear Calc Drug Dose 79.3 ml/min Estimated GFR () 85.9 Estimated GFR (Non- 74.1 BUN/Creatinine Ratio 13.3 10-20 Random Glucose 87 70-99 mg/dl Lactic Acid Level 1.8 0.4-2.0 mmol/L Calcium Level 8.6 8.5-10.1 mg/dl Total Bilirubin 1.8 0.2-1 mg/dl Aspartate Amino Transf (AST/SGOT) 44 15-37 U/L Alanine Aminotransferase (ALT/SGPT) 30 12-78 U/L Alkaline Phosphatase 62 45-117 U/L Ammonia 38.0 11-32 umol/L Troponin I < 0.015 0-0.045 ng/ml Total Protein 6.9 6.4-8.2 gm/dl Albumin 3.2 3.4-5.0 gm/dl Globulin 3.7 2.5-4.0 gm/dl Albumin/Globulin Ratio 0.9 0.9-2 Lipase 121 73-393 U/L Urine Color DK YELLOW Urine Appearance CLOUDY CLEAR Urine pH 6.5 4.5-7.5 Urine Specific [place] 1.026 1.000-1.030 Urine Protein NEG NEG Urine Glucose (UA) NEG NEG Urine Ketones TRACE NEG Urine Occult Blood NEG NEG Urine Nitrite POS NEG Urine Bilirubin NEG NEG Urine Urobilinogen NEG NEG Urine Leukocyte Esterase TRACE NEG Urine WBC (Auto) 1-5 0-5 /hpf Urine RBC (Auto) 5-10 0-4 /hpf Urine Hyaline Casts (Auto) 5-10 0-5 /lpf Urine Epithelial Cells (Auto) >30 0-5 /lpf Urine Bacteria (Auto) NEG NEG Diagnostic Radiology Abd/pelvis CT: IMPRESSION: 1. No evidence of bowel obstruction or acute intra-abdominal pathology. 2. Cirrhosis with portal hypertension evidenced by splenomegaly and varices. 3. Physiologically distended gallbladder without other evidence to suggest cholecystitis. Chest/abd XR: IMPRESSION: 1. Interval development of mild small bowel dilatation since KUB of April 23, 2017. This may reflect a partial small bowel obstruction or ileus. 2. No acute cardiopulmonary findings. Abd us: IMPRESSION: 1. No acute sonographic abnormality is identified in the right upper quadrant. No gallstones are seen. 2. Cirrhotic liver morphology. EKG NSR at 91 bpm Normal EKG Impression Assessment and Plan Patient is a 57-year-old male with a past medical history of alcoholic cirrhosis , chronic thrombocytopenia, hyponatremia and vertigo and other medical problems listed below who presents with nausea/vomiting beginning last night. Diffuse abdominal pain: -Pain began last night after dinner of pork chops -Ddx: Viral gastroenteritis vs. cholecystitis vs ? -CT abd/pelvis with cirrhosis with portal hypertension evidenced by splenomegaly and varices No evidence of SBO, ascites Physiologically distended gallbladder -RUQ ultrasound without evidence of gall stones, cholecystitis -Liver enzymes at baseline. Lipase wnl. Consider GI consult if no improvement -Repeat CMP in AM Nausea, vomiting: -Clinically dry on exam -Gentle IVF resuscitation -Hold diuretics for now until able to tolerate -Antiemetics PRN Etoh cirrhosis: -H/o esophageal varices, hepatic encephalopathy -Compensated -Continue Rifaximin BID, Lactulose QID Ambulatory dysfunction: -Generally weak since previous admission -Unsteady gait with cane -PT/OT eval Chronic hyponatremia: -Improved from baseline -Gentle IVF Vertigo: -Chronic -Often is nauseated -Previous work up: negative MRI of the brain May 2016 -Has been to vestibular therapy without benefit -Meclizine PRN Chronic thrombocytopenia: -Stable with plt of 60 -SCDs for VTE ppx Dispo: -May benefit from rehab vs longer term care in prolonged setting of ambulatory dysfunction, difficulty with self-care -Discharge planning ordered DVT Ppx: SCDs Code status: FULL PCP: Radha Dispo: Observation med/surg. Discharge planning ordered. Patient seen in collaboration with Dr. Arevalo. Please see addendum. Attending Note: Patient is a 57 yr male with PMH of Alcoholic cirrhosis, chronic vertigo and dizziness, Tobacco use, Chronic Hyponatremia and chronic thrombocytopenia presents with history of nausea, vomiting, abdominal pain and diarrhea which started after eating Pork Chop yesterday. States abdominal is predominantly LLQ , sharp radiates to left flank region. Denies fever, chills, any blood in stools. Reports chronic dizziness which is unchanged. Denies any chest pain, SOB , dysuria. Patient is on lactulose at home. CT abdomen showed no acute process. Denies any recent antibiotic use. Last colonoscopy was in Nov 2016 which showed colonic polyp and internal hemorrhoids. Physical Exam: Vitals signs as noted above General Appearance:Moderately built and nourished, no apparent distress Head: normocephalic, Atraumatic Eyes: normal inspection, EOMI, PERRL Neck: supple, Trachea midline Respiratory/Chest: Normal breath sounds, CTA Cardiovascular: S1, S2, No murmur Abdomen/GI:Soft, LLQ mild tender, distended, No guarding, rigidity, Bowel sounds present Extremities/Musculoskelatal:normal inspection, 1+ b/l edema Neurologic/Psych:grossly no focal neurological deficits Skin:normal color,warm Assessment and Plan: Nausea, Vomiting, Abdominal Pain, Diarrhea: Likely Gastroenteritis: No signs of decompensated Cirrhosis Consider stool studies if diarrhea persistent (Also on lactulose) CT abd, ABD USD: No acute process, No signs of obstruction Gentle IV fluids as clinically mild dehydration 2/2 nausea, vomiting, diarrhea Resume diuretics as able consider GI eval if clinically deteriorates Chronic thrombocytopenia: No acute bleeding issues monitor platelets Chronic Dizziness: 2/2 chronic Vertigo Meclizine PRN I personally reviewed the record. Patient is interviewed and examined at bedside. Patient's care is coordinated with Daina Olmos PA-C. Please refer to the documentation above for details of patient's presentation and for discussion of other issues. Resuscitation Status VTE Prophylaxis Will order VTE Prophylaxis: Yes
[2017-05-04] MEDS ORDERED: ONDANSETRON INJ 2 MG/ML 2 ML VIAL IV PRN (19:00)
[2017-05-04] MEDS ORDERED: IV FLUIDS COMPLETED PRN (19:00)
[2017-05-04] MEDS ORDERED: KETOROLAC TROMETHAMINE 15 MG/ML VIAL IM PRN (19:00)
[2017-05-04 20:11] VITALS: BP 169/80; PULSE 91; TEMP 37.2; Ht 167.6 cm; Wt 93.6 kg
--- NOTE | 2017-05-04 21:22 | DIAGNOSTIC IMAGING REPORT ---
ULTRASOUND RIGHT UPPER QUADRANT ABDOMEN CLINICAL HISTORY: Right upper quadrant abdominal pain. COMPARISON STUDY: Abdominal CT dated 05/04/2017. TECHNIQUE: Real-time, grayscale, and color flow sonography of the right upper quadrant of the abdomen was performed. Images are reviewed in the transverse and longitudinal planes. FINDINGS: Liver: The liver is stroke and morphology and heterogeneous in echotexture. There is nodularity of the surface contour. There is no intrahepatic biliary ductal dilatation. The main portal vein is patent. Gallbladder: The gallbladder is mildly distended and otherwise normal in appearance. No gallstones are identified. There is no gallbladder wall thickening or pericholecystic fluid. A sonographic Garcia's sign is reportedly absent. The common bile duct measures up to 0.5 cm in diameter. Pancreas: Not well visualized due to overlying bowel gas. Right kidney: Survey images of the right kidney demonstrate normal size and echotexture. There is no hydronephrosis. Ascites: None. IMPRESSION: 1. No acute sonographic abnormality is identified in the right upper quadrant. No gallstones are seen. 2. Cirrhotic liver morphology. Electronically signed by: Jamil Freedman M.D. 05/04/2017 9:21 PM Dictated Date/Time: 05/04/2017 9:19 PM
[2017-05-04] MEDS ORDERED: ALBUTEROL HFA 8 GM INHALER INH PRN (21:45)
[2017-05-04] MEDS ORDERED: FLUTICASONE PROPIONATE NA SPR 16 GM BTL NAE PRN (21:45)
[2017-05-04] MEDS ORDERED: MECLIZINE HCL 25 MG TAB PO PRN (21:45)
[2017-05-04] MEDS: SODIUM CHLORIDE 0.9% 1000ML 1,000 ML IV SCH (21:50)
[2017-05-04 23:15] VITALS: BP 119/73; PULSE 85; TEMP 37; O2SAT 95
[2017-05-05] MEDS ORDERED: OXYCODONE HCL IR 5 MG TAB (IMMEDIATE RELEASE) PO PRN (03:00)
[2017-05-05] MEDS ORDERED: ACETAMINOPHEN 325 MG TAB PO PRN (03:00)
[2017-05-05] MEDS ORDERED: MoRPHine SULFATE 4 MG/ML 1 ML CARP\\VIAL IV PRN (03:00)
[2017-05-05] MEDS ORDERED: OXYCODONE HCL IR 5 MG TAB (IMMEDIATE RELEASE) ONE (03:16)
[2017-05-05 06:14] LABS: HEMATOCRIT 33.4 % (42-52); HEMOGLOBIN 11.3 g/dL (14.0-18.0); MEAN CELL VOLUME 101.8 fL (80-100); MEAN CORPUSCULAR HEMOGLOBIN 34.5 pg (25-34); MEAN CORPUSCULAR HGB CONC 33.8 g/dl (32-36); RED CELL DISTRIBUTION WIDTH CV 13.7 % (11.5-14.5); RED CELL DISTRIBUTION WIDTH SD 51.4 fL (36.4-46.3); WHITE BLOOD COUNT 4.01 K/uL (4.8-10.8)
[2017-05-05 06:18] LABS: MEAN PLATELET VOLUME 10.5 fL (7.4-10.4); PLATELET COUNT 51 K/uL (130-400)
[2017-05-05 06:21] LABS: INR 1.3 (0.9-1.1)
[2017-05-05 06:58] LABS: ALBUMIN 2.9 gm/dl (3.4-5.0); CALCIUM 7.9 mg/dl (8.5-10.1); CREATININE 1.04 mg/dl (0.60-1.40); POTASSIUM 4.2 mmol/L (3.5-5.1)
[2017-05-05 07:01] LABS: TOTAL PROTEIN 6.1 gm/dl (6.4-8.2)
[2017-05-05 07:43] VITALS: BP 111/69; PULSE 77; TEMP 36.8; O2SAT 96
[2017-05-05 08:00] VITALS: O2SAT 96
[2017-05-05] MEDS ORDERED: LACTULOSE SYRUP 20 GM/30 ML UDC PO SCH (08:00)
[2017-05-05] MEDS: NICOTINE 21 MG/24 HR TDSY TD SCH (08:00)
[2017-05-05] MEDS: SERTRALINE HCL 50 MG TAB PO SCH (08:00)
[2017-05-05] MEDS: PANTOprazole SOD 40 MG TAB PO SCH (08:20)
[2017-05-05] MEDS: CYANOCOBALAMIN 100 MCG TAB (VIT B-12) PO SCH (08:21)
[2017-05-05] MEDS: RIFAXIMIN TAB 550 MG TAB PO SCH ×2 (08:21→20:05)
[2017-05-05] MEDS: THIAMINE HCL 100 MG TAB PO SCH (08:21)
--- NOTE | 2017-05-05 08:42 | Progress Note ---
Medicine Progress Note Date & Time of Visit: May 05, 2017 at 08:20 . Subjective Admitted yesterday with abdominal pain, nausea, and frequent loose stools. Feels better today. Nausea, vomiting, abdominal pain improved. Persistent loose watery stool without gross blood. No fever. No chills or sweats since yesterday. No chest pain, cough, shortness of breath. . Objective Last 8 Hrs Date Time Temp Pulse Resp B/P (MAP) Pulse Ox O2 Delivery O2 Flow Rate FiO2 05/05/17 07:43 36.8 77 18 111/69 (83) 96 Room Air Physical Exam: General- sitting on side of bed; no distress Eyes- anicteric Lungs- clear to auscultation; no respiratory distress Cardiovascular- RRR; no gallop appreciated; no JVD; 1+ pretibial edema Abdomen- + bowel sounds, soft, mild epigastric tenderness Extremities- no cyanosis; no calf tenderness Neuro- alert, oriented Skin- warm & dry . Laboratory Results: Last 24 Hours Test 05/04/17 12:30 05/04/17 15:10 05/05/17 05:51 White Blood Count 5.04 K/uL 4.01 K/uL Red Blood Count 3.76 M/uL 3.28 M/uL Hemoglobin 13.3 g/dL 11.3 g/dL Hematocrit 38.3 % 33.4 % Mean Corpuscular Volume 101.9 fL 101.8 fL Mean Corpuscular Hemoglobin 35.4 pg 34.5 pg Mean Corpuscular Hemoglobin Concent 34.7 g/dl 33.8 g/dl Platelet Count 56 K/uL 51 K/uL Mean Platelet Volume 11.0 fL 10.5 fL Neutrophils (%) (Auto) 90.6 % Lymphocytes (%) (Auto) 2.4 % Monocytes (%) (Auto) 6.2 % Eosinophils (%) (Auto) 0.6 % Basophils (%) (Auto) 0.2 % Neutrophils # (Auto) 4.57 K/uL Lymphocytes # (Auto) 0.12 K/uL Monocytes # (Auto) 0.31 K/uL Eosinophils # (Auto) 0.03 K/uL Basophils # (Auto) 0.01 K/uL RDW Standard Deviation 51.0 fL 51.4 fL RDW Coefficient of Variation 13.6 % 13.7 % Immature Granulocyte % (Auto) 0.0 % Immature Granulocyte # (Auto) 0.00 K/uL Sodium Level 135 mmol/L 131 mmol/L Potassium Level 4.6 mmol/L 4.2 mmol/L Chloride Level 106 mmol/L 104 mmol/L Carbon Dioxide Level 23 mmol/L 20 mmol/L Anion Gap 6.0 mmol/L 7.0 mmol/L Blood Urea Nitrogen 15 mg/dl 13 mg/dl Creatinine 1.10 mg/dl 1.04 mg/dl Est Creatinine Clear Calc Drug Dose 79.3 ml/min 83.9 ml/min Estimated GFR () 85.9 91.9 Estimated GFR (Non- 74.1 79.3 BUN/Creatinine Ratio 13.3 12.6 Random Glucose 87 mg/dl 79 mg/dl Lactic Acid Level 1.8 mmol/L Calcium Level 8.6 mg/dl 7.9 mg/dl Total Bilirubin 1.8 mg/dl 1.7 mg/dl Aspartate Amino Transf (AST/SGOT) 44 U/L 39 U/L Alanine Aminotransferase (ALT/SGPT) 30 U/L 26 U/L Alkaline Phosphatase 62 U/L 52 U/L Ammonia 38.0 umol/L Troponin I < 0.015 ng/ml Total Protein 6.9 gm/dl 6.1 gm/dl Albumin 3.2 gm/dl 2.9 gm/dl Globulin 3.7 gm/dl 3.2 gm/dl Albumin/Globulin Ratio 0.9 0.9 Lipase 121 U/L Urine Color DK YELLOW Urine Appearance CLOUDY Urine pH 6.5 Urine Specific [place] 1.026 Urine Protein NEG Urine Glucose (UA) NEG Urine Ketones TRACE Urine Occult Blood NEG Urine Nitrite POS Urine Bilirubin NEG Urine Urobilinogen NEG Urine Leukocyte Esterase TRACE Urine WBC (Auto) 1-5 /hpf Urine RBC (Auto) 5-10 /hpf Urine Hyaline Casts (Auto) 5-10 /lpf Urine Epithelial Cells (Auto) >30 /lpf Urine Bacteria (Auto) NEG Prothrombin Time 13.4 SECONDS Prothromb Time International Ratio 1.3 Assessment & Plan GI SYMPTOMS Presented with abdominal pain, nausea, vomiting, diarrhea. No coffee grounds, grossly bloody emesis, melena, hematochezia. No acute findings on CT of abdomen. Probable gastroenteritis. Check stools for fecal leukocytes, routine enteric pathogens, C. difficile. Advance diet as tolerated. CIRRHOSIS History of cirrhosis with portal hypertension. Compensated. No encephalopathy or ascites. Hold diuretics until diarrhea improves. Hold lactulose until diarrhea improves. HYPONATREMIA Chronic. Due to underlying hepatic disease. Follow. COPD Stable. Albuterol PRN. VERTIGO Has undergone evaluation. Continue meclizine PRN. VTE PROPHYLAXIS SCD's. Ambulate. DISPOSITION Expected discharge to home. Family Medicine follow-up with Dr. Roy. Follow-up with [facility]. . Current Inpatient Medications: Current Inpatient Medications Medications (Trade) Dose Ordered Sig/Kiya Route Start Time Stop Time Status Last Admin Dose Admin Ioversol (Optiray 320) 125 ml UD PRN IV 05/04/17 14:15 05/08/17 14:14 Sodium Chloride 1,000 ml @ 75 mls/hr [id number] IV 05/04/17 19:00 06/03/17 18:59 05/04/17 21:50 75 MLS/HR Ondansetron HCl (Zofran Inj) 4 mg Q6H PRN IV 05/04/17 19:00 06/03/17 18:59 Miscellaneous (Iv Fluids Completed) 1 ea PRN PRN N/A 05/04/17 19:00 05/04/18 18:59 Albuterol (Ventolin Hfa Inhaler) 2 puffs Q4 PRN INH 05/04/17 21:45 06/03/17 21:44 Cyanocobalamin (Vitamin B-12 Tab) 100 mcg QAM PO 05/05/17 08:00 06/04/17 07:59 05/05/17 08:21 100 MCG Fluticasone Propionate (Flonase Nasal [place]) 2 sprays DAILY PRN GUANAKO 05/04/17 21:45 06/03/17 21:44 Folic Acid (Folvite Tab) 1 mg QAM PO 05/05/17 08:00 06/04/17 07:59 05/05/17 08:20 1 MG Lactulose (Chronulac Syrup) 20 gm QID PO 05/05/17 08:00 06/04/17 07:59 Meclizine HCl (Antivert Tab) 12.5 mg TID PRN PO 05/04/17 21:45 06/03/17 21:44 Nicotine (Nicoderm Cq 21MG Patch) 1 patch DAILY TD 05/05/17 08:00 06/04/17 07:59 Rifaximin (Xifaxan Tab) 550 mg BID PO 05/05/17 08:00 06/04/17 07:59 05/05/17 08:21 550 MG Sertraline HCl (Zoloft Tab) 25 mg DAILY PO 05/05/17 08:00 06/04/17 07:59 Thiamine HCl (Vitamin B-1 Tab) 100 mg QAM PO 05/05/17 08:00 06/04/17 07:59 05/05/17 08:21 100 MG Valacyclovir HCl (Valtrex Tab) 1,000 mg DAILY PO 05/05/17 08:00 06/04/17 07:59 05/05/17 08:20 1,000 MG Pantoprazole Sodium (Protonix Tab) 40 mg QAM PO 05/05/17 08:00 06/04/17 07:59 05/05/17 08:20 40 MG Miscellaneous (Remove Nicoderm Patch) 1 ea QPM N/A 05/04/17 21:00 06/03/17 20:59 Acetaminophen (Tylenol Tab) 325 mg Q6H PRN PO 05/05/17 03:00 06/04/17 02:59 Oxycodone HCl (Roxicodone Immediate Rel Tab) 5 mg Q6H PRN PO 05/05/17 03:00 05/19/17 02:59 Morphine Sulfate (MoRPHine SULFATE INJ) 4 mg Q8H PRN IV 05/05/17 03:00 05/19/17 02:59
[2017-05-05] MEDS: SODIUM CHLORIDE 0.9% 1000ML 1,000 ML IV SCH (08:53)
[2017-05-05] MEDS ORDERED: SPIRONOLACTONE 100 MG TAB PO SCH (09:00)
--- NOTE | 2017-05-05 09:00 | Gastrointestinal Consultation ---
Gastrointestinal Consultation Date of Consultation: May 05, 2017 Attending Physician: Rich Person Consulting Physician: Diomedes Preciado Reason for Consultation: Diarrhea History of Present Illness Patient is a 57 year old male medical comorbid of alcoholic cirrhosis (MELD 11) , chronic thrombocytopenia, hyponatremia and vertigo, presented to the hospital with nausea, vomiting and diarrhea after eating Pork chops few days ago. He denies abdominal pain now but bothered by the diarrhea. No hematemesis, melena or rectal bleeding, no fever, chills or jaundice. No recent ABx use but multiple hospitalizations recently. Usually takes Lactulose for diarrhea. Recent EGD showed small esophageal varices and colonoscopy showed few polyps. CT scan and Sono this admission are unremarkable for acute pathology. Past Medical/Surgical History Medical Problems: (1) Abdominal pain Status: Acute (2) Dizziness Status: Acute (3) Generalized weakness Status: Acute (4) Hepatic insufficiency Status: Acute (5) History of cirrhosis Status: Acute (6) Hyperammonemia Status: Acute (7) Hyponatremia Status: Acute (8) Hypoxia Status: Acute (9) Left sided chest pain Status: Acute (10) Leukopenia Status: Acute (11) Lyme disease Status: Acute (12) Right arm numbness Status: Acute (13) URI (upper respiratory infection) Status: Acute (14) Vertigo Status: Acute Family History Alcohol abuse SISTER Cancer MOTHER (Lymphoma) Diabetes mellitus FATHER Heart disease Hypertension Social History Smoking Status: Former Smoker Alcohol Use: none Drug Use: none Marital Status: , in relationship Housing Status: lives alone Occupation Status: unemployed Allergies Coded Allergies: No Known Allergies (Unverified , 05/04/17) Current Medications Home Meds and Scripts Medications Dose Route/Sig Max Daily Dose Days Date Category Dose Instructions Aldactone (Spironolactone) 100 Mg Tab 100 Mg PO BID 30 04/27/17 Rx Meclizine HCl 25 Mg Tab 12.5 Mg PO TID PRN 30 04/27/17 Rx Valtrex (Valacyclovir Hcl) 1 Gm Tab 1,000 Mg PO DAILY 04/21/17 Reported Zoloft (Sertraline HCl) 25 Mg Tab 25 Mg PO DAILY 04/21/17 Reported Voltaren 1% Top Gel (Diclofenac Sodium (Topical)) 1 % Gel 1 Appln TOP BID PRN 02/21/17 Reported Nicoderm Cq 21MG Patch (Nicotine) 21 Mg/24 Hr Dis 1 Patch TD DAILY 02/21/17 Reported Prilosec (Omeprazole) 40 Mg Cap 40 Mg PO QAM 11/22/16 Reported Ventolin Hfa (Albuterol) 200 Puffs/[id number] Mcg Aers 2 Puffs INH Q4 PRN 05/01/16 Reported Flonase Allergy Relief (Fluticasone Propionate (Nasal)) 50 Mcg/Act Spr 2 Sprays GUANAKO DAILY PRN 06/07/15 Reported Zofran (Ondansetron HCl) 4 Mg Tab 4 Mg PO Q6 PRN 11/12/14 Reported Lactulose 20 Gm/30 Ml Syrp 20 Gm PO QID 11/12/14 Reported HOLD AFTER 3 BMS A DAY. Vitamin B-1 (Thiamine HCl) 100 Mg Tab 100 Mg PO QAM 04/15/14 Reported Lasix (Furosemide) 40 Mg Tab 40 Mg PO BID 04/04/14 Reported Vitamin B-12 (Cyanocobalamin) 100 Mcg Tab 100 Mcg PO QAM 04/04/14 Reported Xifaxan (Rifaximin) 550 Mg Tab 550 Mg PO BID 03/26/14 Reported Folic Acid 1 Mg Tab 1 Mg PO QAM 03/26/14 Reported Review of Systems Constitutional: No fever, No chills Eyes: No worsening of vision, No eye pain ENT: No hearing loss, No unusual epistaxis Respiratory: No cough, No sputum Cardiac: No chest pain, No PND Abdomen: + see HPI Musculoskeletal: No joint pain, No muscle pain Male : No dysuria, No urinary frequency Neuro: No memory loss, No weakness Psych: No anxiety Heme: No abnormal bleeding/bruising Endo: No fatigue Skin: No rash, No itch Physical Exam Date Time Temp Pulse Resp B/P (MAP) Pulse Ox O2 Delivery O2 Flow Rate FiO2 05/05/17 07:43 36.8 77 18 111/69 (83) 96 Room Air 05/05/17 00:00 Room Air 05/04/17 23:15 37.0 85 18 119/73 (88) 95 Room Air 05/04/17 20:11 37.2 91 18 169/80 Room Air 05/04/17 20:08 101 20 132/95 96 Room Air 05/04/17 18:12 91 05/04/17 17:28 88 20 110/74 95 Room Air 05/04/17 16:29 96 20 115/67 95 Room Air 05/04/17 15:30 93 16 117/74 95 Room Air 05/04/17 15:12 95 20 152/97 95 Room Air 05/04/17 13:46 92 18 108/66 93 Room Air 05/04/17 12:53 95 05/04/17 12:50 92 20 95/56 95 Room Air 05/04/17 11:17 37.3 95 18 134/69 97 Room Air General Appearance: no apparent distress Eyes: PERRL ENT: pharynx normal Neck: supple, no JVD Respiratory/Chest: lungs clear, normal breath sounds Cardiovascular: regular rate, rhythm, no edema Abdomen: normal bowel sounds, non tender, soft Neurologic/Psych: oriented x 3 Skin: normal color, no jaundice Laboratory Results Last 24 Hours Test 05/04/17 12:30 05/04/17 15:10 05/05/17 05:51 White Blood Count 5.04 K/uL 4.01 K/uL Red Blood Count 3.76 M/uL 3.28 M/uL Hemoglobin 13.3 g/dL 11.3 g/dL Hematocrit 38.3 % 33.4 % Mean Corpuscular Volume 101.9 fL 101.8 fL Mean Corpuscular Hemoglobin 35.4 pg 34.5 pg Mean Corpuscular Hemoglobin Concent 34.7 g/dl 33.8 g/dl Platelet Count 56 K/uL 51 K/uL Mean Platelet Volume 11.0 fL 10.5 fL Neutrophils (%) (Auto) 90.6 % Lymphocytes (%) (Auto) 2.4 % Monocytes (%) (Auto) 6.2 % Eosinophils (%) (Auto) 0.6 % Basophils (%) (Auto) 0.2 % Neutrophils # (Auto) 4.57 K/uL Lymphocytes # (Auto) 0.12 K/uL Monocytes # (Auto) 0.31 K/uL Eosinophils # (Auto) 0.03 K/uL Basophils # (Auto) 0.01 K/uL RDW Standard Deviation 51.0 fL 51.4 fL RDW Coefficient of Variation 13.6 % 13.7 % Immature Granulocyte % (Auto) 0.0 % Immature Granulocyte # (Auto) 0.00 K/uL Sodium Level 135 mmol/L 131 mmol/L Potassium Level 4.6 mmol/L 4.2 mmol/L Chloride Level 106 mmol/L 104 mmol/L Carbon Dioxide Level 23 mmol/L 20 mmol/L Anion Gap 6.0 mmol/L 7.0 mmol/L Blood Urea Nitrogen 15 mg/dl 13 mg/dl Creatinine 1.10 mg/dl 1.04 mg/dl Est Creatinine Clear Calc Drug Dose 79.3 ml/min 83.9 ml/min Estimated GFR () 85.9 91.9 Estimated GFR (Non- 74.1 79.3 BUN/Creatinine Ratio 13.3 12.6 Random Glucose 87 mg/dl 79 mg/dl Lactic Acid Level 1.8 mmol/L Calcium Level 8.6 mg/dl 7.9 mg/dl Total Bilirubin 1.8 mg/dl 1.7 mg/dl Aspartate Amino Transf (AST/SGOT) 44 U/L 39 U/L Alanine Aminotransferase (ALT/SGPT) 30 U/L 26 U/L Alkaline Phosphatase 62 U/L 52 U/L Ammonia 38.0 umol/L Troponin I < 0.015 ng/ml Total Protein 6.9 gm/dl 6.1 gm/dl Albumin 3.2 gm/dl 2.9 gm/dl Globulin 3.7 gm/dl 3.2 gm/dl Albumin/Globulin Ratio 0.9 0.9 Lipase 121 U/L Urine Color DK YELLOW Urine Appearance CLOUDY Urine pH 6.5 Urine Specific [place] 1.026 Urine Protein NEG Urine Glucose (UA) NEG Urine Ketones TRACE Urine Occult Blood NEG Urine Nitrite POS Urine Bilirubin NEG Urine Urobilinogen NEG Urine Leukocyte Esterase TRACE Urine WBC (Auto) 1-5 /hpf Urine RBC (Auto) 5-10 /hpf Urine Hyaline Casts (Auto) 5-10 /lpf Urine Epithelial Cells (Auto) >30 /lpf Urine Bacteria (Auto) NEG Prothrombin Time 13.4 SECONDS Prothromb Time International Ratio 1.3 Impression Patient is a 57 year old male with compensated Liver cirrhosis, admitted with symptoms suggestive of acute gastroenteritis and diarrhea likely food born illness. No acute pathology on CT scan. Plan Stool work up including stool for C.diff and Cx. Supportive care. Hold Lactulose till diarrhea resolve. Further plan based on results of C.diff.
[2017-05-05 16:00] VITALS: O2SAT 96
[2017-05-05 16:14] VITALS: BP 116/66; PULSE 76; TEMP 36.5; O2SAT 95
[2017-05-06 00:01] VITALS: BP 128/75; PULSE 81; TEMP 36.2; O2SAT 96
[2017-05-06 06:28] LABS: HEMOGLOBIN 10.7 g/dL (14.0-18.0); MEAN CORPUSCULAR HEMOGLOBIN 35.7 pg (25-34); MEAN CORPUSCULAR HGB CONC 35.7 g/dl (32-36); MEAN PLATELET VOLUME 10.4 fL (7.4-10.4); PLATELET COUNT 41 K/uL (130-400); RED CELL DISTRIBUTION WIDTH CV 13.6 % (11.5-14.5); RED CELL DISTRIBUTION WIDTH SD 49.8 fL (36.4-46.3); WHITE BLOOD COUNT 2.34 K/uL (4.8-10.8)
[2017-05-06 07:13] LABS: ALBUMIN 2.5 gm/dl (3.4-5.0); CALCIUM 7.7 mg/dl (8.5-10.1); CREATININE 0.7 mg/dl (0.60-1.40); POTASSIUM 3.9 mmol/L (3.5-5.1); TOTAL PROTEIN 5.5 gm/dl (6.4-8.2)
[2017-05-06 07:52] VITALS: BP 96/60; PULSE 74; TEMP 36.5; O2SAT 96
[2017-05-06 08:00] VITALS: O2SAT 96
[2017-05-06] MEDS: SERTRALINE HCL 50 MG TAB PO SCH (08:00)
[2017-05-06] MEDS: NICOTINE 21 MG/24 HR TDSY TD SCH (08:00)
[2017-05-06] MEDS ORDERED: PROMETHAZINE HCL INJ 12.5 MG in SODIUM CHLORIDE 0.9% 50ML 50 ML IV PRN (08:45)
[2017-05-06] MEDS: PANTOprazole SOD 40 MG TAB PO SCH (09:59)
[2017-05-06] MEDS: THIAMINE HCL 100 MG TAB PO SCH (09:59)
[2017-05-06] MEDS: CYANOCOBALAMIN 100 MCG TAB (VIT B-12) PO SCH (09:59)
[2017-05-06] MEDS: RIFAXIMIN TAB 550 MG TAB PO SCH ×2 (10:00→20:26)
--- NOTE | 2017-05-06 10:03 | Gastroenterology Progress Note ---
Gastroenterology Progress Note Patient seen and examined, feels better today, diarrhea is less by 50% as per patient. No abdominal pain. On exam abdomen is soft and nontender. C.diff is negative. Likely acute gastroenteritis related to food born illness, no clinical indication for ABx given lack of fever and rectal bleeding. Continue supportive care. Recall GI if needed.
[2017-05-06 16:00] VITALS: O2SAT 96
[2017-05-06 16:03] VITALS: BP 113/71; PULSE 70; TEMP 36.2; O2SAT 97
[2017-05-06] MEDS ORDERED: LACTULOSE SYRUP 30 GM/45 ML UDP PO ONE (16:30)
[2017-05-06] MEDS: LACTULOSE SYRUP 30 GM/45 ML UDP PO SCH (20:26)
--- NOTE | 2017-05-06 21:30 | Progress Note ---
Medicine Progress Note Date & Time of Visit: May 06, 2017 at 14:30 . Subjective Diarrhea improved. Would like to resume lactulose therapy. Has some nausea earlier; relieved by promethazine. No fever. No cough or shortness of breath. No chest pain. . Objective Last 8 Hrs Date Time Temp Pulse Resp B/P (MAP) Pulse Ox O2 Delivery O2 Flow Rate FiO2 05/06/17 19:45 Room Air 05/06/17 16:03 36.2 70 20 113/71 (85) 97 Room Air 05/06/17 16:00 96 Room Air Physical Exam: General- lying in bed; no distress Eyes- anicteric Lungs- clear to auscultation; no respiratory distress Cardiovascular- RRR; no gallop appreciated; no JVD; 1+ pretibial edema Abdomen- + bowel sounds, slightly distended, soft, mild epigastric tenderness Extremities- no cyanosis; no calf tenderness Neuro- alert, oriented Skin- warm & dry . Laboratory Results: Last 24 Hours Test 05/06/17 06:14 White Blood Count 2.34 K/uL Red Blood Count 3.00 M/uL Hemoglobin 10.7 g/dL Hematocrit 30.0 % Mean Corpuscular Volume 100.0 fL Mean Corpuscular Hemoglobin 35.7 pg Mean Corpuscular Hemoglobin Concent 35.7 g/dl RDW Standard Deviation 49.8 fL RDW Coefficient of Variation 13.6 % Platelet Count 41 K/uL Mean Platelet Volume 10.4 fL Sodium Level 134 mmol/L Potassium Level 3.9 mmol/L Chloride Level 106 mmol/L Carbon Dioxide Level 22 mmol/L Anion Gap 6.0 mmol/L Blood Urea Nitrogen 11 mg/dl Creatinine 0.70 mg/dl Est Creatinine Clear Calc Drug Dose 124.7 ml/min Estimated GFR () 121.4 Estimated GFR (Non- 104.8 BUN/Creatinine Ratio 15.5 Random Glucose 87 mg/dl Calcium Level 7.7 mg/dl Magnesium Level 2.0 mg/dl Total Bilirubin 1.3 mg/dl Aspartate Amino Transf (AST/SGOT) 42 U/L Alanine Aminotransferase (ALT/SGPT) 24 U/L Alkaline Phosphatase 48 U/L Total Protein 5.5 gm/dl Albumin 2.5 gm/dl Globulin 3.0 gm/dl Albumin/Globulin Ratio 0.8 Assessment & Plan GI SYMPTOMS Presented with abdominal pain, nausea, vomiting, diarrhea. No coffee grounds, grossly bloody emesis, melena, hematochezia. No acute findings on CT of abdomen. Probable gastroenteritis. Stools negative for fecal leukocytes, routine enteric pathogens, C. difficile. Advance diet as tolerated. CIRRHOSIS History of cirrhosis with portal hypertension. Compensated. No encephalopathy or ascites. Hold diuretics and lactulose due to profuse diarrhea. Diarrhea improving, so we will resume usual medications. HYPONATREMIA Chronic. Due to underlying hepatic disease. Serum sodium today = 134. Follow. COPD Stable. Albuterol PRN. VERTIGO Has undergone evaluation. Continue meclizine PRN. VTE PROPHYLAXIS SCD's. Ambulate. DISPOSITION Expected discharge to home. Family Medicine follow-up with Dr. Roy. Follow-up with Elida [facility]. . Current Inpatient Medications: Current Inpatient Medications Medications (Trade) Dose Ordered Sig/Kiya Route Start Time Stop Time Status Last Admin Dose Admin Ioversol (Optiray 320) 125 ml UD PRN IV 05/04/17 14:15 05/08/17 14:14 Ondansetron HCl (Zofran Inj) 4 mg Q6H PRN IV 05/04/17 19:00 06/03/17 18:59 Miscellaneous (Iv Fluids Completed) 1 ea PRN PRN N/A 05/04/17 19:00 05/04/18 18:59 Albuterol (Ventolin Hfa Inhaler) 2 puffs Q4 PRN INH 05/04/17 21:45 06/03/17 21:44 Cyanocobalamin (Vitamin B-12 Tab) 100 mcg QAM PO 05/05/17 08:00 06/04/17 07:59 05/06/17 09:59 100 MCG Fluticasone Propionate (Flonase Nasal [place]) 2 sprays DAILY PRN GUANAKO 05/04/17 21:45 06/03/17 21:44 Folic Acid (Folvite Tab) 1 mg QAM PO 05/05/17 08:00 06/04/17 07:59 05/06/17 09:59 1 MG Lactulose (Chronulac Syrup) 20 gm QID PO 05/05/17 08:00 06/04/17 07:59 Future Hold Meclizine HCl (Antivert Tab) 12.5 mg TID PRN PO 05/04/17 21:45 06/03/17 21:44 Nicotine (Nicoderm Cq 21MG Patch) 1 patch DAILY TD 05/05/17 08:00 06/04/17 07:59 Rifaximin (Xifaxan Tab) 550 mg BID PO 05/05/17 08:00 06/04/17 07:59 05/06/17 20:26 550 MG Sertraline HCl (Zoloft Tab) 25 mg DAILY PO 05/05/17 08:00 06/04/17 07:59 Thiamine HCl (Vitamin B-1 Tab) 100 mg QAM PO 05/05/17 08:00 06/04/17 07:59 05/06/17 09:59 100 MG Pantoprazole Sodium (Protonix Tab) 40 mg QAM PO 05/05/17 08:00 06/04/17 07:59 05/06/17 09:59 40 MG Miscellaneous (Remove Nicoderm Patch) 1 ea QPM N/A 05/04/17 21:00 06/03/17 20:59 05/06/17 20:27 1 EA Acetaminophen (Tylenol Tab) 325 mg Q6H PRN PO 05/05/17 03:00 06/04/17 02:59 Oxycodone HCl (Roxicodone Immediate Rel Tab) 5 mg Q6H PRN PO 05/05/17 03:00 05/19/17 02:59 Morphine Sulfate (MoRPHine SULFATE INJ) 4 mg Q8H PRN IV 05/05/17 03:00 05/19/17 02:59 Valacyclovir HCl (Valtrex Tab) 1,000 mg BID PO 05/05/17 20:00 06/04/17 07:59 05/06/17 20:26 1,000 MG Promethazine HCl 12.5 mg/Sodium Chloride 50.5 ml @ 204 mls/hr Q6H PRN IV 05/06/17 08:45 06/05/17 08:44 05/06/17 08:58 204 MLS/HR Lactulose (Chronulac Syrup) 30 gm TID PO 05/06/17 20:00 06/05/17 19:59 05/06/17 20:26 30 GM
[2017-05-07] VITALS (8 sets, daily range): BP systolic 106–147; BP diastolic 65–79; PULSE 63–80; TEMP 36.4–36.9; O2SAT 94–99
[2017-05-07] MEDS: THIAMINE HCL 100 MG TAB PO SCH (07:54)
[2017-05-07] MEDS: RIFAXIMIN TAB 550 MG TAB PO SCH (07:54)
[2017-05-07] MEDS: NICOTINE 21 MG/24 HR TDSY TD SCH (07:55)
[2017-05-07] MEDS: LACTULOSE SYRUP 30 GM/45 ML UDP PO SCH ×2 (07:55→15:19)
[2017-05-07] MEDS: CYANOCOBALAMIN 100 MCG TAB (VIT B-12) PO SCH (07:55)
[2017-05-07] MEDS: PANTOprazole SOD 40 MG TAB PO SCH (07:55)
[2017-05-07] MEDS: SERTRALINE HCL 50 MG TAB PO SCH (07:56)
[2017-05-07] MEDS ORDERED: FUROSEMIDE 40 MG TAB PO SCH (08:00)
[2017-05-07] MEDS ORDERED: SPIRONOLACTONE 100 MG TAB PO SCH (08:00)
--- NOTE | 2017-05-07 14:55 | Progress Note ---
Medicine Progress Note Date & Time of Visit: May 07, 2017 at 14:55 . Subjective Abdominal pain, nausea, vomiting, profuse diarrhea resolved. Back on lactulose. Episode of vertigo this morning, improved after receiving meclizine. Vertigo is a chronic problem and nothing unusual for him. . Objective Last 8 Hrs Date Time Temp Pulse Resp B/P (MAP) Pulse Ox O2 Delivery O2 Flow Rate FiO2 05/07/17 10:50 36.5 63 18 108/65 (79) 95 Room Air 05/07/17 09:24 98 Room Air 05/07/17 09:05 74 20 108/ (36) 76 115/67 (83) 05/07/17 08:55 36.6 80 18 147/79 (101) 99 05/07/17 08:30 97 Room Air 05/07/17 07:39 36.4 72 18 108/70 (83) 97 Physical Exam: General- lying in bed; no distress Eyes- anicteric Lungs- clear to auscultation; no respiratory distress Cardiovascular- RRR; no gallop appreciated; no JVD; 1+ pretibial edema Abdomen- + bowel sounds, slightly distended, soft, mild epigastric tenderness Extremities- no cyanosis; no calf tenderness Neuro- alert, oriented Skin- warm & dry . Assessment & Plan GI SYMPTOMS Presented with abdominal pain, nausea, vomiting, diarrhea. No coffee grounds, grossly bloody emesis, melena, hematochezia. No acute findings on CT of abdomen. Probable gastroenteritis. Stools negative for fecal leukocytes, routine enteric pathogens, C. difficile. Diet advance. CIRRHOSIS History of cirrhosis with portal hypertension. Compensated. No encephalopathy or ascites. Held diuretics and lactulose due to profuse diarrhea. Discharge on usual medications. HYPONATREMIA Chronic. Due to underlying hepatic disease. Serum sodium 05/06 was 134. Follow. COPD Stable. Albuterol PRN. VERTIGO Has undergone evaluation. Continue meclizine PRN. VTE PROPHYLAXIS SCD's. Ambulate. DISPOSITION Discharge to home. Family Medicine follow-up with Dr. Garcia. Follow-up with Elida [facility]. . Current Inpatient Medications: Current Inpatient Medications Medications (Trade) Dose Ordered Sig/Kiya Route Start Time Stop Time Status Last Admin Dose Admin Ioversol (Optiray 320) 125 ml UD PRN IV 05/04/17 14:15 05/08/17 14:14 Ondansetron HCl (Zofran Inj) 4 mg Q6H PRN IV 05/04/17 19:00 06/03/17 18:59 Miscellaneous (Iv Fluids Completed) 1 ea PRN PRN N/A 05/04/17 19:00 05/04/18 18:59 Albuterol (Ventolin Hfa Inhaler) 2 puffs Q4 PRN INH 05/04/17 21:45 06/03/17 21:44 Cyanocobalamin (Vitamin B-12 Tab) 100 mcg QAM PO 05/05/17 08:00 06/04/17 07:59 05/07/17 07:55 100 MCG Fluticasone Propionate (Flonase Nasal [place]) 2 sprays DAILY PRN GUANAKO 05/04/17 21:45 06/03/17 21:44 Folic Acid (Folvite Tab) 1 mg QAM PO 05/05/17 08:00 06/04/17 07:59 05/07/17 07:54 1 MG Lactulose (Chronulac Syrup) 20 gm QID PO 05/05/17 08:00 06/04/17 07:59 Future Hold Meclizine HCl (Antivert Tab) 12.5 mg TID PRN PO 05/04/17 21:45 06/03/17 21:44 05/07/17 12:10 12.5 MG Nicotine (Nicoderm Cq 21MG Patch) 1 patch DAILY TD 05/05/17 08:00 06/04/17 07:59 Rifaximin (Xifaxan Tab) 550 mg BID PO 05/05/17 08:00 06/04/17 07:59 05/07/17 07:54 550 MG Sertraline HCl (Zoloft Tab) 25 mg DAILY PO 05/05/17 08:00 06/04/17 07:59 Thiamine HCl (Vitamin B-1 Tab) 100 mg QAM PO 05/05/17 08:00 06/04/17 07:59 05/07/17 07:54 100 MG Pantoprazole Sodium (Protonix Tab) 40 mg QAM PO 05/05/17 08:00 06/04/17 07:59 05/07/17 07:55 40 MG Miscellaneous (Remove Nicoderm Patch) 1 ea QPM N/A 05/04/17 21:00 06/03/17 20:59 05/06/17 20:27 1 EA Acetaminophen (Tylenol Tab) 325 mg Q6H PRN PO 05/05/17 03:00 06/04/17 02:59 Oxycodone HCl (Roxicodone Immediate Rel Tab) 5 mg Q6H PRN PO 05/05/17 03:00 05/19/17 02:59 Morphine Sulfate (MoRPHine SULFATE INJ) 4 mg Q8H PRN IV 05/05/17 03:00 05/19/17 02:59 Valacyclovir HCl (Valtrex Tab) 1,000 mg BID PO 05/05/17 20:00 06/04/17 07:59 05/07/17 07:55 1,000 MG Promethazine HCl 12.5 mg/Sodium Chloride 50.5 ml @ 204 mls/hr Q6H PRN IV 05/06/17 08:45 06/05/17 08:44 05/06/17 08:58 204 MLS/HR Lactulose (Chronulac Syrup) 30 gm TID PO 05/06/17 20:00 06/05/17 19:59 05/06/17 20:26 30 GM Furosemide (Lasix Tab) 40 mg BID PO 05/07/17 08:00 06/06/17 07:59 05/07/17 05:49 40 MG Spironolactone (Aldactone Tab) 100 mg BID PO 05/07/17 08:00 06/06/17 07:59 05/07/17 05:50 100 MG
--- NOTE | 2017-05-07 15:00 | Discharge Instructions ---
Discharge Instructions Date of Service May 07, 2017. Admission Reason for Admission: nausea, vomiting, diarrhea . Discharge Discharge Diagnosis / Problem: probable gastroenteritis Discharge Goals Goal(s): Improve disease control Activity Recommendations Activity Limitations: resume your previous activity . Instructions / Follow-Up Instructions / Follow-Up APPOINTMENTS: NEPHROLOGY 05/10/2017 1:10 PM Lula Valle DO GASTROENTEROLOGY 06/14/2017 8:40 AM Peter Daniel DO FAMILY MEDICINE 06/28/2017 11:20 AM Najma Garcia MD OTHER INSTRUCTIONS: Seek medical attention if you have: * temperature above 101 * chest pain or trouble breathing * abdominal pain, nausea, vomiting * diarrhea, dark stools or bloody stools * any unanswered questions or concerns Call 911 if symptoms are severe. Call if you have any questions or problems. My cell # is [phone]. You can also reach a [facility] hospitalist on duty at [facility] 24 hours a day by calling [phone]. Please take good care of yourself. Diomedes Preciado . Current Hospital Diet Patient's current hospital diet: Low Fiber Diet, Low Fat Diet, Low Lactose Diet Discharge Diet Recommended Diet: Low Sodium Diet (2gm Na) Pending Studies Studies pending at discharge: no Laboratory Results Hemoglobin A1c Test 02/24/17 06:30 Range/Units Estimated Average Glucose 105 mg/dl Hemoglobin A1c 5.3 4.5-5.6 % Medical Emergencies . Who to Call and When: Medical Emergencies: If at any time you feel your situation is an emergency, please call 911 immediately. . Non-Emergent Contact Non-Emergency issues call your: Primary Care Provider, Acid Condenser, Hospital Doctor . . "Provider Documentation" section prepared by Diomedes Preciado. .
--- NOTE | 2017-05-14 10:09 | Discharge Summary ---
Discharge Summary Date of Service May 14, 2017. Discharge Summary Admission Date: May 04, 2017 at 18:50 Discharge Date: May 07, 2017 Discharge Disposition: Home Principal Diagnosis: abdominal pain, diarrhea . Secondary Diagnoses/Problems: Chronic and Resolved Medical Problems: (1) Alcoholic cirrhosis of liver with ascites Status: Chronic (2) Anemia Status: Chronic (3) Ascites due to alcoholic cirrhosis Status: Chronic (4) Esophageal varices in alcoholic cirrhosis Permanent Comment: EGD 10/24/13-grade 1 varices EGD: 11/28/16 - grage 1 varices lower third esophagus Status: Chronic (5) Genital herpes Status: Chronic (6) Gynecomastia Status: Chronic (7) Hepatic encephalopathy Status: Chronic (8) History of portal vein thrombosis Status: Chronic (9) Portal hypertensive gastropathy Status: Chronic (10) Portal vein thrombosis Status: Chronic (11) Thrombocytopenia Status: Chronic Surgical Problems: (1) History of carpal tunnel surgery Status: Resolved (2) History of dental surgery Status: Resolved . Medication Reconciliation Continued Medications: Albuterol Hfa (Ventolin Hfa) 200 Puffs/76976 Mcg Aers 2 PUFFS INH Q4 PRN for SOB/Wheezing, #1 INHALER Cyanocobalamin (Vitamin B-12) 100 Mcg Tab 100 MCG PO QAM Diclofenac Sodium (Topical) (Voltaren 1% Top Gel) 1 % Gel 1 APPLN TOP BID PRN for Fluticasone Propionate (Nasal) (Flonase Allergy Relief) 50 Mcg/Act Spr 2 SPRAYS GUANAKO DAILY PRN for PRN\\ Folic Acid (Folic Acid) 1 Mg Tab 1 MG PO QAM Furosemide (Lasix) 40 Mg Tab 40 MG PO BID, TAB Lactulose (Lactulose) 20 Gm/30 Ml Syrp 20 GM PO QID HOLD AFTER 3 BMS A DAY. Meclizine HCl (Meclizine HCl) 25 Mg Tab 12.5 MG PO TID PRN for Dizziness or Vertigo for 30 Days Nicotine (Nicoderm Cq 21MG Patch) 21 Mg/24 Hr Dis 1 PATCH TD DAILY, PATCH Omeprazole (Prilosec) 40 Mg Cap 40 MG PO QAM, CAP Ondansetron Hcl (Zofran) 4 Mg Tab 4 MG PO Q6 PRN for Nausea, TAB Rifaximin (Xifaxan) 550 Mg Tab 550 MG PO BID Sertraline (Zoloft) 25 Mg Tab 25 MG PO DAILY, TAB Spironolactone (Aldactone) 100 Mg Tab 100 MG PO BID for 30 Days Thiamine Hcl (Vitamin B-1) 100 Mg Tab 100 MG PO QAM Valacyclovir Hcl (Valtrex) 1 Gm Tab 1000 MG PO DAILY, #21 TAB Admission Information HPI (per Admitting provider): Patient is a 57-year-old male with a past medical history of alcoholic cirrhosis , chronic thrombocytopenia, hyponatremia and vertigo and other medical problems listed below who presents with nausea/vomiting beginning last night. Patient states that he awoke during the night with sharp, stabbing left-sided flank pain with radiation to his LLQ. Today, pain localized to bilateral lower abdomen. Pain is described as a constant, 6/10 pressure. Associated nausea and 3 episodes of bilious vomit. Took Zofran at home without relief. Denies any hematemesis, melena or hematochezia but does endorse frontal headache, dizziness (chronic) and generalized weakness. Has shortness of breath but states that it is at baseline. Denies fever, chills, lightheadedness, near syncope, visual changes, chest pain, dysuria, constipation or LE swelling. Had a pork chop for dinner last night. Has been having 2-3 loose BMs daily on lactulose QID for h/o hepatic encephalopathy. States that has not been taking all medications but is unable to tell me which ones. Patient was recently hospitalized from 04/21-04/27 for ambulatory dysfunction, hyponatremia and dizziness. During admission, patient was seen by nephrology and GI. Spironolactone dose was changed from 200mg in the morning 100mg day and meclizine dose was decreased from 25-12.[address], orthostatics and chest x-ray were without abnormalities. Patient completed in-patient PT/OT and was discharged home with home health. States that he has continued to feel generally weak since discharge. Follows with [facility] and last EGD was in Nov 2016 with Grade 1 esophageal varices and colonoscopy was in Nov 2016 with colon polyps (Tubular adenoma and hyperplastic). . Physical Exam (per Admitting): General Appearance: no apparent distress, + pertinent finding (appears older than stated age ) Head: normocephalic, atraumatic Eyes: normal inspection, PERRL, sclerae normal ENT: normal ENT inspection, hearing grossly normal, pharynx normal (dry mucous membranes ) Neck: supple, thyroid normal, trachea midline Respiratory/Chest: chest non-tender, lungs clear, normal breath sounds, no respiratory distress, no accessory muscle use Cardiovascular: regular rate, rhythm, no murmur, normal peripheral pulses Abdomen/GI: soft, no organomegaly, + tenderness (Diffuse TTP, no guarding ) Back: normal inspection Extremities/Musculoskelatal: normal inspection, no calf tenderness, no pedal edema Neurologic/Psych: 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 No coffee grounds, grossly bloody emesis, melena, hematochezia. No acute findings on CT of abdomen. Probable gastroenteritis. Stools negative for fecal leukocytes, routine enteric pathogens, C. difficile. Diet advanced. CIRRHOSIS History of cirrhosis with portal hypertension. Compensated. No encephalopathy or ascites. Held diuretics and lactulose due to profuse diarrhea. Discharged on usual medications. HYPONATREMIA Chronic. Due to underlying hepatic disease. Serum sodium 05/06 was 134. Follow. COPD Stable. Albuterol PRN. VERTIGO Has undergone evaluation. Continue meclizine PRN. VTE PROPHYLAXIS SCD's. Ambulate. DISPOSITION Discharged to home. Family Medicine follow-up with Dr. Garcia. Follow-up with Elida ABDUL . [place] [address] Discharge Medical Patient Name: Andrea Harvey Unit Number: [id number] Date of : 1960 Patient Status: Discharged Inpatient (obs) Attending Doctor: Diomedes Preciado M.D. DI: Medical v5 Discharge Instructions Date of Service May 07, 2017. Admission Reason for Admission: nausea, vomiting, diarrhea . Discharge Discharge Diagnosis / Problem: probable gastroenteritis Discharge Goals Goal(s): Improve disease control Activity Recommendations Activity Limitations: resume your previous activity . Instructions / Follow-Up Instructions / Follow-Up APPOINTMENTS: NEPHROLOGY 05/10/2017 1:10 PM Lula Kathleen Oncu, DO GASTROENTEROLOGY 06/14/2017 8:40 AM Peter Daniel DO FAMILY MEDICINE 06/28/2017 11:20 AM Najma Garcia MD OTHER INSTRUCTIONS: Seek medical attention if you have: * temperature above 101 * chest pain or trouble breathing * abdominal pain, nausea, vomiting * diarrhea, dark stools or bloody stools * any unanswered questions or concerns Call 911 if symptoms are severe. Call if you have any questions or problems. My cell # is [phone]. You can also reach a [facility] hospitalist on duty at [facility] 24 hours a day by calling [phone]. Please take good care of yourself. Diomedes Preciado . Current Hospital Diet Patient's current hospital diet: Low Fiber Diet, Low Fat Diet, Low Lactose Diet Discharge Diet Recommended Diet: Low Sodium Diet (2gm Na) Pending Studies Studies pending at discharge: no Laboratory Results Hemoglobin A1c Test 02/24/17 06:30 Range/Units Estimated Average Glucose 105 mg/dl Hemoglobin A1c 5.3 4.5-5.6 % Medical Emergencies . Who to Call and When: Medical Emergencies: If at any time you feel your situation is an emergency, please call 911 immediately. . Non-Emergent Contact Non-Emergency issues call your: Primary Care Provider, Geophysical Observer, Hospital Doctor . . "Provider Documentation" section prepared by Diomedes Preciado. . .
== END 2017-05-07 16:15 | disposition home or self-care (01) ==
LOC: EDBD 11:09 → C.EDB 11:10 → C.4E 18:50 → ENRESERV 19:53
PROVIDERS: ADMIT Internal Medicine; ATTEND Hospitalist
DX: R11.2 Nausea with vomiting, unspecified (principal); R19.7 Diarrhea, unspecified; R10.9 Unspecified abdominal pain; M54.9 Dorsalgia, unspecified; K70.30 Alcoholic cirrhosis of liver without ascites; K76.6 Portal hypertension; E87.1 Hypo-osmolality and hyponatremia; J44.9 Chronic obstructive pulmonary disease, unspecified; I81 Portal vein thrombosis; D69.6 Thrombocytopenia, unspecified; R26.9 Unspecified abnormalities of gait and mobility; A60.02 Herpesviral infection of other male genital organs; N62 Hypertrophy of breast; Z87.891 Personal history of nicotine dependence; Z81.1 Family history of alcohol abuse and dependence; Z83.3 Family history of diabetes mellitus; Z82.49 Family history of ischemic heart disease and other diseases of the circulatory system

== ENCOUNTER → 2017-08-27 | Outpatient (CLI) | payer OTHER ==
[~2017-08-27] MED LIST changes: +CYAN100T6 PO; +FLNIN/ NAE; +FOLI800T17 PO; +LACT10SO3 PO; -LCTL30 PO; +MECL1TAB42 PO; -NICO21DI35 TD; -SERT25TA PO; +SPRN100 PO; +THIA100T10 PO; -THIA100T11 PO; +THIA100T27 PO; -VALA1TAB2 PO; +VALA1TAB31 PO; +VALA500T60 PO
== END | disposition home or self-care (01) ==
LOC: C.LABPBG 08:48
PROVIDERS: ATTEND Internal Medicine Endocrinology, Diabetes & Metabolism
DX: E16.2 Hypoglycemia, unspecified (principal); R41.82 Altered mental status, unspecified

== ENCOUNTER 2017-09-04 18:34 | Inpatient (IN) | payer OTHER ==
[~2017-09-04] VITALS: Ht 167.6 cm; Wt 93.2 kg
[~2017-09-04 18:34] MED LIST changes: -ANT25 PO; -FLNIN/ NAE; -FLV1 PO; -OMEP40CA41 PO; -SPRN100 PO; -THIA100T27 PO; -VALA1TAB31 PO; -VTMB12100 PO
[2017-09-04] MEDS ORDERED: ONDANSETRON INJ 2 MG/ML 2 ML VIAL IV STA (18:46)
[2017-09-04] MEDS ORDERED: DIPHTHERIA/TETANUS/PERTUSSIS 0.5 ML SYR/VIAL IM. ONE (19:00)
--- NOTE | 2017-09-04 19:19 | DIAGNOSTIC IMAGING REPORT ---
CHEST ONE VIEW PORTABLE HISTORY: 57 years-old Male EVALUATE FOR TRAUMA/INJURY acute chest trauma status post fall with syncope COMPARISON: Acute abdominal series radiographs 05/04/2017 TECHNIQUE: Portable AP view of the chest FINDINGS: Cardiomediastinal and hilar silhouettes are within normal limits. No pneumothorax, pleural effusion, focal airspace consolidation or overt pulmonary edema. Bones of the chest appear grossly intact. IMPRESSION: No acute process. The above report was generated using voice recognition software. It may contain grammatical, syntax or spelling errors. Electronically signed by: Eliceo Herrera M.D. 09/04/2017 7:18 PM Dictated Date/Time: 09/04/2017 7:17 PM
[2017-09-04 19:49] LABS: HEMATOCRIT 39.5 % (42-52); HEMOGLOBIN 14.3 g/dL (14.0-18.0); MEAN CELL VOLUME 99.5 fL (80-100); MEAN CORPUSCULAR HGB CONC 36.2 g/dl (32-36); MEAN PLATELET VOLUME 12.4 fL (7.4-10.4); PLATELET COUNT 61 K/uL (130-400); RED CELL DISTRIBUTION WIDTH CV 13.5 % (11.5-14.5); RED CELL DISTRIBUTION WIDTH SD 48.5 fL (36.4-46.3); WHITE BLOOD COUNT 5.51 K/uL (4.8-10.8)
--- NOTE | 2017-09-04 19:50 | DIAGNOSTIC IMAGING REPORT ---
HEAD WITHOUT CONTRAST (CT) CLINICAL HISTORY: 57 years-old Male with EVALUATE FOR TRAUMA/INJURY. Acute head injury TECHNIQUE: Multiple axial CT images of the head were obtained without contrast. A dose lowering technique was utilized adhering to the principles of ALARA. COMPARISON: CT cervical spine of same day, CT head 04/21/2017 FINDINGS: No acute intracranial hemorrhage, midline shift, intracranial mass, hydrocephalus, territorial ischemia or abnormal extra-axial collection. Cerebral vascular calcifications are noted. The calvarium is intact. The paranasal sinuses, mastoid air cells, and middle ear cavities are clear. IMPRESSION: No acute intracranial abnormality. The above report was generated using voice recognition software. It may contain grammatical, syntax or spelling errors. Electronically signed by: Eliceo Herrera M.D. 09/04/2017 7:49 PM Dictated Date/Time: 09/04/2017 7:46 PM
[2017-09-04 19:52] LABS: INR 1.1 (0.9-1.1); PTT PATIENT 25.7 SECONDS (21.0-31.0)
--- NOTE | 2017-09-04 20:00 | DIAGNOSTIC IMAGING REPORT ---
CERVICAL SPINE W/O CT DOSE: 1019.23 mGy.cm CLINICAL HISTORY: 57 years-old Male with EVALUATE FOR TRAUMA/INJURY. Acute neck injury COMPARISON: CTA of the neck 05/17/2016 TECHNIQUE: Multiple axial CT images of the cervical spine were obtained without contrast. A dose lowering technique was utilized adhering to the principles of ALARA. FINDINGS: Mastoid air cells and middle ear cavities are clear. No acute cervical spine fracture or subluxation. Moderate intervertebral disc space narrowing at C6-C7. 2 mm retrolisthesis C6 on C7 is likely on a degenerative basis. Posterior disc osteophyte complex formation is noted at this level. Mild multilevel facet arthropathy. Evaluation of the central canal and neuroforamina is better assessed by MRI. C6-C7 there is moderate left and mild right foraminal narrowing. There is no prevertebral soft tissue swelling. No definite high-grade central canal stenosis. Soft tissues of the neck are unremarkable. Mild mixed plaque formation about the left carotid bulb. Lung apices are clear. IMPRESSION: 1. No acute cervical spine fracture or subluxation. 2. Moderate intervertebral disc space narrowing with posterior disc osteophyte complex formation at C6-C7. 2 mm retrolisthesis C6 on C7 is likely on a degenerative basis. The above report was generated using voice recognition software. It may contain grammatical, syntax or spelling errors. Electronically signed by: Eliceo Herrera M.D. 09/04/2017 7:59 PM Dictated Date/Time: 09/04/2017 7:52 PM
[2017-09-04 20:06] LABS: ALBUMIN 3.3 gm/dl (3.4-5.0); ALT/SGPT 35 U/L (12-78); BLOOD UREA NITROGEN 14 mg/dl (7-18); CALCIUM 8.7 mg/dl (8.5-10.1); CARBON DIOXIDE 23 mmol/L (21-32); CREATININE 0.99 mg/dl (0.60-1.40); GLUCOSE 84 mg/dl (70-99); LIPASE 164 U/L (73-393); POTASSIUM 3.9 mmol/L (3.5-5.1); SODIUM 135 mmol/L (136-145)
[2017-09-04 20:07] LABS: BASO % 0.5 %; BASO ABS # 0.03 K/uL (0-0.2); EOS % 1.8 %; LYMPH ABS # 0.99 K/uL (1.2-3.4); MONO % 13.2 %; MONO ABS # 0.73 K/uL (0.11-0.59); NEUT % 66.5 %; NEUT ABS # 3.66 K/uL (1.4-6.5)
[2017-09-04] MEDS ORDERED: VALA1TAB31 PO (20:07)
[2017-09-04] MEDS ORDERED: FLNIN/ NAE (20:07)
[2017-09-04] MEDS ORDERED: THIA100T27 PO (20:07)
[2017-09-04] MEDS ORDERED: VTMB12100 PO (20:07)
[2017-09-04] MEDS ORDERED: ANT25 PO (20:07)
[2017-09-04] MEDS ORDERED: OMEP40CA41 PO (20:07)
[2017-09-04] MEDS ORDERED: FLV1 PO (20:07)
[2017-09-04 20:08] LABS: ALKALINE PHOSPHATASE 86 U/L (45-117); TOTAL PROTEIN 7.6 gm/dl (6.4-8.2)
[2017-09-04 20:09] LABS: AST/SGOT 58 U/L (15-37)
[2017-09-04] MEDS ORDERED: SPRN100 PO (20:10)
--- NOTE | 2017-09-04 20:37 | EMERGENCY ROOM VISIT NOTE ---
History Report prepared by Stanley: Dana Frost Under the Supervision of: Dr. Fredo Edwards M.D. First contact with patient: 18:38 Chief Complaint: FALL Stated Complaint: FALL/SYNCOPE History of Present Illness The patient is a 57 year old male who presents to the Emergency Room with complaints of an episode of syncope beginning this evening. He notes he lost consciousness and hit the ground. The patient reports he is experiencing neck and L shoulder pain. He notes he does not remember the fall and that he woke up in a puddle of ice water from a glass he dropped. He reports he is unsure how long he was out. The patient denies abdominal pain, chest pain, leg pain, or vision changes. He notes some mild nausea that improved following Zofran. The patient also reports dizziness that worsens with movement. Nursing staff notes the patient is diabetic and had a normal blood sugar. The patient notes he felt fine and ate as usual today before the fall, and did not feel dizzy before the episode of syncope. He reports he was able to get to his feet on his own and slowly made his way to his bedroom after the event. The patient notes he has not drank alcohol for 4.5 years and he does not smoke. Source of History: patient, nursing staff Onset: this evening Position: head Quality: other (syncope) Timing: other (episode) Associated Symptoms: + nausea (mild, improved with Zofran), No chest pain, No abdominal pain Note: Associated symptom: dizziness. Denies: leg pain or vision changes Review of Systems See HPI for pertinent positives and negatives. A total of ten systems were reviewed and were otherwise negative. Past Medical & Surgical Medical Problems: (1) Abdominal pain (2) Alcoh Dep Nec/Nos-Unspec (3) Alcohol Cirrhosis Liver (4) Alcoholic cirrhosis of liver with ascites (5) Anemia (6) Ascites due to alcoholic cirrhosis (7) Esophageal varices in alcoholic cirrhosis (8) Genital herpes (9) Gynecomastia (10) Hepatic encephalopathy (11) History of portal vein thrombosis (12) Intractable nausea and vomiting (13) Portal hypertensive gastropathy (14) Portal vein thrombosis (15) Thrombocytopenia (16) Tobacco Use Disorder Surgical Problems: (1) History of carpal tunnel surgery (2) History of dental surgery Family History Alcohol abuse SISTER Cancer MOTHER (Lymphoma) Diabetes mellitus FATHER Heart disease Hypertension Social History Smoking Status: Never Smoker Smokeless Tobacco Use: No Alcohol Use: none Drug Use: none Marital Status: , in relationship Housing Status: lives alone Occupation Status: unemployed Current/Historical Medications Scheduled Cyanocobalamin (Vitamin B-12), 100 MCG PO DAILY Folic Acid (Folic Acid), 1 MG PO DAILY Furosemide (Lasix), 40 MG PO BID Lactulose (Chronulac), 30 ML PO QID Omeprazole (Prilosec), 40 MG PO DAILY Rifaximin (Xifaxan), 550 MG PO BID Spironolactone (Spironolactone), 100 MG PO BID Thiamine HCl (Vitamin B-1), 100 MG PO DAILY Valacyclovir Hcl (Valtrex), 1 GM PO DAILY Scheduled PRN Albuterol Hfa (Ventolin Hfa), 2 PUFFS INH Q4H PRN for Shortness of Breath Diclofenac Sodium (Topical) (Voltaren 1% Top Gel), 2 GM TOP BID PRN for Pain Fluticasone Propionate (Fluticasone Propionate), 2 SPRAYS GUANAKO DAILY PRN for Allergy Symptoms Meclizine HCl (Meclizine HCl), 12.5-25 MG PO TID PRN for Dizziness or Vertigo Allergies Coded Allergies: No Known Allergies (Verified , 07/25/17) Physical Exam Vital Signs Date Time Temp Pulse Resp B/P (MAP) Pulse Ox O2 Delivery O2 Flow Rate FiO2 09/04/17 22:09 81 16 136/93 95 Room Air 09/04/17 20:24 79 18 146/97 97 Room Air 09/04/17 19:35 97 Room Air 09/04/17 19:35 97 Room Air 09/04/17 18:35 37.1 81 20 117/76 97 Room Air Physical Exam GENERAL: Awake, alert, well-appearing, in no distress. C-collar in place. HENT: Normocephalic, 2cm contusion over L forehead. Oropharynx unremarkable. EYES: Normal conjunctiva. Sclera non-icteric. NECK: Supple. Mild R sided posterior neck pain RESPIRATORY: Clear to auscultation. No wheezes. Normal respiratory effort. CARDIAC: Normal rate. Normal rhythm. Extremities warm and well perfused. GI: Soft, non-distended. No tenderness to palpation. No rebound or guarding. No masses. RECTAL: Deferred. MUSCULOSKELETAL: Atraumatic. Chest examination reveals no tenderness. There is no CVA tenderness to palpation. UPPER EXTREMITIES: 3x7cm area of contusion and superficial abrasion in the L upper arm without evidence of foreign body. LOWER EXTREMITIES: Calves are equal size bilaterally and non-tender. No edema NEURO: Normal sensorium. No sensory or motor deficits noted. No facial droop. SKIN: Warm and dry. No rash or jaundice noted. Medical Decision & Procedures ER Provider Diagnostic Interpretation: Radiology results as stated below per my review and radiologist interpretation: HEAD WITHOUT CONTRAST (CT) CLINICAL HISTORY: 57 years-old Male with EVALUATE FOR TRAUMA/INJURY. Acute head injury TECHNIQUE: Multiple axial CT images of the head were obtained without contrast. A dose lowering technique was utilized adhering to the principles of ALARA. COMPARISON: CT cervical spine of same day, CT head 04/21/2017 FINDINGS: No acute intracranial hemorrhage, midline shift, intracranial mass, hydrocephalus, territorial ischemia or abnormal extra-axial collection. Cerebral vascular calcifications are noted. The calvarium is intact. The paranasal sinuses, mastoid air cells, and middle ear cavities are clear. IMPRESSION: No acute intracranial abnormality. The above report was generated using voice recognition software. It may contain grammatical, syntax or spelling errors. Electronically signed by: Eliceo Herrera M.D. 09/04/2017 7:49 PM Dictated Date/Time: 09/04/2017 7:46 PM CERVICAL SPINE W/O CT DOSE: 1019.23 mGy.cm CLINICAL HISTORY: 57 years-old Male with EVALUATE FOR TRAUMA/INJURY. Acute neck injury COMPARISON: CTA of the neck 05/17/2016 TECHNIQUE: Multiple axial CT images of the cervical spine were obtained without contrast. A dose lowering technique was utilized adhering to the principles of ALARA. FINDINGS: Mastoid air cells and middle ear cavities are clear. No acute cervical spine fracture or subluxation. Moderate intervertebral disc space narrowing at C6-C7. 2 mm retrolisthesis C6 on C7 is likely on a degenerative basis. Posterior disc osteophyte complex formation is noted at this level. Mild multilevel facet arthropathy. Evaluation of the central canal and neuroforamina is better assessed by MRI. C6-C7 there is moderate left and mild right foraminal narrowing. There is no prevertebral soft tissue swelling. No definite high-grade central canal stenosis. Soft tissues of the neck are unremarkable. Mild mixed plaque formation about the left carotid bulb. Lung apices are clear. IMPRESSION: 1. No acute cervical spine fracture or subluxation. 2. Moderate intervertebral disc space narrowing with posterior disc osteophyte complex formation at C6-C7. 2 mm retrolisthesis C6 on C7 is likely on a degenerative basis. The above report was generated using voice recognition software. It may contain grammatical, syntax or spelling errors. Electronically signed by: Eliceo Herrera M.D. 09/04/2017 7:59 PM Dictated Date/Time: 09/04/2017 7:52 PM CHEST ONE VIEW PORTABLE HISTORY: 57 years-old Male EVALUATE FOR TRAUMA/INJURY acute chest trauma status post fall with syncope COMPARISON: Acute abdominal series radiographs 05/04/2017 TECHNIQUE: Portable AP view of the chest FINDINGS: Cardiomediastinal and hilar silhouettes are within normal limits. No pneumothorax, pleural effusion, focal airspace consolidation or overt pulmonary edema. Bones of the chest appear grossly intact. IMPRESSION: No acute process. The above report was generated using voice recognition software. It may contain grammatical, syntax or spelling errors. Electronically signed by: Eliceo Herrera M.D. 09/04/2017 7:18 PM Dictated Date/Time: 09/04/2017 7:17 PM L SHOULDER MIN 2 VIEWS ROUTINE HISTORY: 57 years-old Male pain, fall acute left shoulder pain status post fall COMPARISON: Chest radiograph 02/21/2017 TECHNIQUE: 2 views of the left shoulder FINDINGS: Mild glenohumeral and AC joint osteoarthritis. There is no acute fracture or dislocation. Imaged lung munguia appear clear. No opaque foreign body. IMPRESSION: No acute fracture or dislocation. The above report was generated using voice recognition software. It may contain grammatical, syntax or spelling errors. Electronically signed by: Eliceo Herrera M.D. 09/04/2017 9:12 PM Dictated Date/Time: 09/04/2017 9:11 PM Laboratory Results 09/04/17 19:26 Red Blood Count 3.97, Mean Corpuscular Volume 99.5, Mean Corpuscular Hemoglobin 36.0, Mean Corpuscular Hemoglobin Concent 36.2, Mean Platelet Volume 12.4, Neutrophils (%) (Auto) 66.5, Lymphocytes (%) (Auto) 18.0, Monocytes (%) (Auto) 13.2, Eosinophils (%) (Auto) 1.8, Basophils (%) (Auto) 0.5, Neutrophils # (Auto ) 3.66, Lymphocytes # (Auto) 0.99, Monocytes # (Auto) 0.73, Eosinophils # (Auto ) 0.10, Basophils # (Auto) 0.03 09/04/17 19:26 Test 09/04/17 00:00 09/04/17 19:26 09/04/17 19:48 09/04/17 22:22 Urine Color YELLOW Urine Appearance CLEAR (CLEAR) Urine pH 6.0 (4.5-7.5) Urine Specific [place] 1.012 (1.000-1.030) Urine Protein NEG (NEG) Urine Glucose (UA) NEG (NEG) Urine Ketones NEG (NEG) Urine Occult Blood NEG (NEG) Urine Nitrite NEG (NEG) Urine Bilirubin NEG (NEG) Urine Urobilinogen NEG (NEG) Urine Leukocyte Esterase NEG (NEG) White Blood Count 5.51 K/uL (4.8-10.8) Red Blood Count 3.97 M/uL (4.7-6.1) Hemoglobin 14.3 g/dL (14.0-18.0) Hematocrit 39.5 % (42-52) Mean Corpuscular Volume 99.5 fL (80-100) Mean Corpuscular Hemoglobin 36.0 pg (25-34) Mean Corpuscular Hemoglobin Concent 36.2 g/dl (32-36) Platelet Count 61 K/uL (130-400) Mean Platelet Volume 12.4 fL (7.4-10.4) Neutrophils (%) (Auto) 66.5 % Lymphocytes (%) (Auto) 18.0 % Monocytes (%) (Auto) 13.2 % Eosinophils (%) (Auto) 1.8 % Basophils (%) (Auto) 0.5 % Neutrophils # (Auto) 3.66 K/uL (1.4-6.5) Lymphocytes # (Auto) 0.99 K/uL (1.2-3.4) Monocytes # (Auto) 0.73 K/uL (0.11-0.59) Eosinophils # (Auto) 0.10 K/uL (0-0.5) Basophils # (Auto) 0.03 K/uL (0-0.2) RDW Standard Deviation 48.5 fL (36.4-46.3) RDW Coefficient of Variation 13.5 % (11.5-14.5) Immature Granulocyte % (Auto) 0.0 % Immature Granulocyte # (Auto) 0.00 K/uL (0.00-0.02) Tear Drop Cells 1+ Prothrombin Time 11.4 SECONDS (9.0-12.0) Prothromb Time International Ratio 1.1 (0.9-1.1) Activated Partial Thromboplast Time 25.7 SECONDS (21.0-31.0) Partial Thromboplastin Ratio 1.0 Anion Gap 8.0 mmol/L (3-11) Est Creatinine Clear Calc Drug Dose 88.4 ml/min Estimated GFR () 97.6 Estimated GFR (Non- 84.2 BUN/Creatinine Ratio 13.8 (10-20) Calcium Level 8.7 mg/dl (8.5-10.1) Magnesium Level 2.1 mg/dl (1.8-2.4) Total Bilirubin 1.1 mg/dl (0.2-1) Direct Bilirubin 0.5 mg/dl (0-0.2) Aspartate Amino Transf (AST/SGOT) 58 U/L (15-37) Alanine Aminotransferase (ALT/SGPT) 35 U/L (12-78) Alkaline Phosphatase 86 U/L (45-117) Troponin I < 0.015 ng/ml (0-0.045) Total Protein 7.6 gm/dl (6.4-8.2) Albumin 3.3 gm/dl (3.4-5.0) Lipase 164 U/L (73-393) Ethyl Alcohol mg/dL < 3.0 mg/dl (0-3) Bedside Glucose 81 mg/dl (70-99) Ammonia 125.2 umol/L (11-32) Laboratory results reviewed by me Medications Administered Medications (Trade) Dose Ordered Sig/Kiya Route Start Time Stop Time Status Last Admin Dose Admin Ondansetron HCl (Zofran Inj) 4 mg NOW STAT IV 09/04/17 18:46 09/04/17 18:50 DC 09/04/17 20:23 4 MG Diphtheria/ Pertussis/Tetanus Vacc (Adacel Inj) 0.5 ml ONCE ONCE IM. 09/04/17 19:00 09/04/17 19:01 DC 09/04/17 19:34 0.5 ML Fentanyl Citrate (Fentanyl Inj) 25 mcg NOW ONCE IV 09/04/17 22:45 09/04/17 22:46 DC 09/04/17 22:56 25 MCG ECG Per My Interpretation Indication: syncope Rate (beats per minute): 79 Rhythm: normal sinus Findings: other (normal axis. normal intervals. no ST segment elevation. ) Comparison ECG Date: 05/04/17 Change: no significant change ED Course 1838: The patient was evaluated in room A11B. A complete history and physical exam was performed. 1845: Ordered Zofran Inj 4 mg IV. 1899: Ordered Adacel Inj 0.5 ml IM. 2012: I reevaluated and updated the patient. 2241: Upon reevaluation, the patient is complaining of significant diffuse pain. His ammonia level is 125. 2244: Ordered Fentanyl Inj 25 mcg IV. 2258: Discussed the patient's case with Dr. Goss, [facility]. The patient will be evaluated for further treatment and disposition. Medical Decision Etiologies such as vasovagal event, infection, hypoglycemia, electrolyte abnormalities, cardiac sources, intracerebral event, toxicologic, neurologic, as well as others were entertained. Patient presents after feeling somewhat dizzy and lightheaded passing out following the ground at home. Unsure how long the stent was able to get up and make his way to his room. Called his home nursing agency recommend he take his Antivert. Has chronic dizziness issues and then call 911. Patient complains of some neck pain and left shoulder pain. Abrasion over the left shoulder. Unsure of last tetanus shot. This was updated. Denies any chest pain or abdominal pain. No foreign body noted in the wound. Does not require closure. CT of the cervical spine unremarkable for acute injury and CT the head is unremarkable. Patient did have significant posterior midline tenderness. Will maintain a c-collar and follow-up with orthopedic spine. EKG unremarkable. Negative alcohol level. No signs of infection. Benign abdomen. Has chronic vertiginous symptoms likely caused his symptoms today. Chronic thrombocytopenia. I did check an ammonia level given his liver history which was significantly elevated 125. Difficult for me to assess if the patient is having encephalopathy from this although he is a bit slow to respond; prior NH3 levels much lower. Complains of diffuse pain. Shoulder x-rays negative. Head imaging is negative. Unable to clear his cervical collar secondary to significant pain on palpation. Kept in hard collar. Discussed with him the need to maintain this at all times until follow-up. Given that he had a syncopal episode and his ammonia is elevated have concerns about sending this gentleman home especially in a c-collar. Discussed with the [facility] hospitalist group will evaluate for admission. Medication Reconcilliation Current Medication List: was personally reviewed by me Blood Pressure Screening Patient's blood pressure: Normal blood pressure Blood pressure disposition: Did not require urgent referral Consults Time Called: 2250 Consulting Physician: Elida Stark [facility], [place] Returned Call: [phone] [facility] the [facility] The patient will be evaluated for further treatment and disposition. Impression Primary Impression: Syncope Additional Impressions: Neck pain Vertigo Hyperammonemia Scribe Attestation The scribe's documentation has been prepared under my direction and personally reviewed by me in its entirety. I confirm that the note above accurately reflects all work, treatment, procedures, and medical decision making performed by me. Departure Information Dispostion Being Evaluated By Hospitalist Referrals Najma Garcia M.D. (PCP) Patient Instructions My [facility] Health Problem Qualifiers Primary Impression: Syncope Syncope type: unspecified Qualified Codes: R55 - Syncope and collapse
--- NOTE | 2017-09-04 21:13 | DIAGNOSTIC IMAGING REPORT ---
L SHOULDER MIN 2 VIEWS ROUTINE HISTORY: 57 years-old Male pain, fall acute left shoulder pain status post fall COMPARISON: Chest radiograph 02/21/2017 TECHNIQUE: 2 views of the left shoulder FINDINGS: Mild glenohumeral and AC joint osteoarthritis. There is no acute fracture or dislocation. Imaged lung munguia appear clear. No opaque foreign body. IMPRESSION: No acute fracture or dislocation. The above report was generated using voice recognition software. It may contain grammatical, syntax or spelling errors. Electronically signed by: Eliceo Herrera M.D. 09/04/2017 9:12 PM Dictated Date/Time: 09/04/2017 9:11 PM
[2017-09-04] MEDS ORDERED: FENTANYL CITRATE INJ 50 MCG/1 ML 2 ML VIAL IV ONE (22:45)
[2017-09-04] MEDS ORDERED: RIFAXIMIN TAB 550 MG TAB PO ONE (23:41)
[2017-09-04] MEDS ORDERED: NITROGLYCERIN 0.4 MG SL PER TAB CHARGE SL PRN (23:45)
[2017-09-04] MEDS ORDERED: MoRPHine SULFATE 4 MG/ML 1 ML CARP\\VIAL IV PRN (23:45)
[2017-09-04] MEDS ORDERED: ACETAMINOPHEN 325 MG TAB PO PRN (23:45)
[2017-09-04] MEDS ORDERED: FLUTICASONE PROPIONATE NA SPR 16 GM BTL NAE PRN (23:45)
[2017-09-04] MEDS ORDERED: PROCHLORPERAZINE INJ 5 MG in SYRINGE 4 ML IV PRN (23:45)
[2017-09-05] VITALS (12 sets, daily range): BP systolic 105–157; BP diastolic 50–104; PULSE 68–87; TEMP 36.4–37.2; O2SAT 97–99; Ht 167.6 cm; Wt 93.2 kg
[2017-09-05] MEDS ORDERED: LACTULOSE SYRUP 30 GM/45 ML UDP PO ONE (00:45)
[2017-09-05] MEDS: TRAMADOL HCL 50 MG TAB PO PRN ×3 (00:58→22:02)
[2017-09-05] MEDS ORDERED: NSS + 20MEQ KCL 1000ML 1,000 ML IV SCH (01:00)
[2017-09-05] MEDS ORDERED: LACTULOSE SYRUP 20 GM/30 ML UDC PO ONE (01:00)
--- NOTE | 2017-09-05 02:10 | HISTORY & PHYSICAL EXAMINATION ---
DATE OF ADMISSION: 09/04/2017 PRIMARY CARE DOCTOR. Najma Garcia MD. CHIEF COMPLAINT: Fall, black-out. HISTORY OF PRESENT ILLNESS: Medical history significant for alcoholic cirrhosis, past tobacco and alcohol abuse, chronic anemia (baseline hemoglobin 13), history of portal vein thrombosis as per records. Recent confinement last May 2017 for acute gastroenteritis. Last night, patient had attack of dizziness, some spinning, felt lightheaded. Subsequently blacked out prior to hitting the floor. Some head trauma after. No chest pain, no shortness of breath, no unusual abdominal distention. Appetite not too good. No black, no bloody stools. Compliant with home meds. Patient brought to the ER. MEDICAL HISTORY: As above. A 2D echo from November 2016 showed EF of 63%, normal LV wall motion. RV chamber size normal. No valvular disease. SURGERIES: He has had carpal tunnel surgery, dental surgery. HOME MEDICATIONS: Include Valtrex, lactulose, magnesium, Prilosec, Xifaxan, spironolactone, thiamine, Ventolin, B12, Voltaren, fluticasone, folic acid, Lasix. ALLERGIES: No known drug allergies. FAMILY HISTORY: Heart disease, hypertension, alcohol abuse. PERSONAL AND SOCIAL HISTORY: Past tobacco/ETOH abuse. He is disabled. REVIEW OF SYSTEMS: As per HPI, all 10 systems reviewed, all other ROS negative. PHYSICAL EXAMINATION: VITAL SIGNS: Blood pressure was noted to be 117/76, pulse rate 81, RR 20, temperature 37.1, sats 97 on room air. GENERAL: Noted to be obese, slightly uncomfortable, in no respiratory distress. SKIN: Pallor, warm. HEENT: Contusion, left forehead, pink palpebral conjunctivae. No ptosis. Dry mucosa. NECK: Cervical collar noted. Unable to test for mobility. CHEST: Decreased breath sounds. No tenderness. HEART: Regular rate and rhythm, no murmur. ABDOMEN: Minimal epigastric tenderness, some distention. EXTREMITIES: Minimal LE edema, no tenderness. No other gross deformities. NEUROLOGIC: Coherent. No gross focality. LABORATORY DATA: Hemoglobin was noted to be 14.3, hematocrit 39.4, white blood cells 5.5, platelets 61. Sodium noted to be 135, potassium 3.9, BUN 14, creatinine 0.9, glucose 84. Troponin 0.015. serum ammonia 125 CT head, no acute pathology. CT neck, no dislocation. EKG as per my interpretation, NSR, low voltage, PRWP ASSESSMENT: 1. Syncope secondary to acute vertiginous attack rule out orthostasis, arrhythmia. 2. Alcoholic cirrhosis no overt decompensation/encephalopathy despite hyperammonemia Patient possibly on the dry side. 3. Past tobacco abuse 4. chronic anemia, hemoglobin better than baseline likely secondary to hemoconcentration . PLAN: PCU Check orthostatic vitals. Gentle IV fluids. Hold home diuretics for now until patient is euvolemic. Symptomatic management for vertigo. Facilitate home lactulose/Xifaxan for hyperammonemia. Follow ammonia levels. PT eval DVT prophylaxis, SCDs RE thrombocytopenia. Full code. MTDD
[2017-09-05 06:17] LABS: HEMATOCRIT 35.9 % (42-52); HEMOGLOBIN 12.9 g/dL (14.0-18.0); MEAN CELL VOLUME 99.2 fL (80-100); MEAN CORPUSCULAR HEMOGLOBIN 35.6 pg (25-34); MEAN CORPUSCULAR HGB CONC 35.9 g/dl (32-36); MEAN PLATELET VOLUME 12.2 fL (7.4-10.4); PLATELET COUNT 50 K/uL (130-400); RED CELL DISTRIBUTION WIDTH CV 13.5 % (11.5-14.5); RED CELL DISTRIBUTION WIDTH SD 48.8 fL (36.4-46.3); WHITE BLOOD COUNT 3.23 K/uL (4.8-10.8)
[2017-09-05 06:40] LABS: BASO % 0.9 %; BASO ABS # 0.03 K/uL (0-0.2); EOS % 3.1 %; LYMPH ABS # 0.97 K/uL (1.2-3.4); MONO % 16.4 %; MONO ABS # 0.53 K/uL (0.11-0.59); NEUT % 49.6 %
[2017-09-05 07:02] LABS: ALBUMIN 2.9 gm/dl (3.4-5.0); CALCIUM 8.7 mg/dl (8.5-10.1); CREATININE 0.91 mg/dl (0.60-1.40); POTASSIUM 3.6 mmol/L (3.5-5.1); TOTAL PROTEIN 6.1 gm/dl (6.4-8.2)
[2017-09-05] MEDS: LACTULOSE SYRUP 20 GM/30 ML UDC PO SCH ×4 (08:09→19:46)
[2017-09-05] MEDS: PANTOprazole SOD 40 MG TAB PO SCH (08:11)
[2017-09-05] MEDS: RIFAXIMIN TAB 550 MG TAB PO SCH ×2 (08:11→20:08)
[2017-09-05] MEDS: THIAMINE HCL 100 MG TAB PO SCH (08:11)
[2017-09-05] MEDS: CYANOCOBALAMIN 100 MCG TAB (VIT B-12) PO SCH (08:12)
[2017-09-05] MEDS ORDERED: NURSING VERBAL MED ORDER ONE (16:45)
--- NOTE | 2017-09-05 17:26 | Progress Note ---
Medicine Progress Note Date & Time of Visit: Sep 05, 2017 at 17:05. Subjective Pt was seen and examined Lying in bed with no distress Pt said that today while walking with physical therapy, he felt dizzy He said that he continues to have pain in his shoulder and hip Denies any chest pain, palpitation and fever Objective Last 8 Hrs Date Time Temp Pulse Resp B/P (MAP) Pulse Ox O2 Delivery O2 Flow Rate FiO2 09/05/17 15:42 Room Air 09/05/17 15:31 37.2 74 18 120/77 (91) 97 Nasal Cannula 09/05/17 15:13 115/70 (85) 09/05/17 15:12 113/62 (79) 09/05/17 14:55 116/69 (85) 09/05/17 11:15 72 98 09/05/17 11:06 36.6 72 18 125/76 (92) 98 Room Air 09/05/17 09:31 Room Air Physical Exam: General- No acute distress Head- atraumatic Eyes- PERRL, EOMI ENT- oropharynx clear Neck- supple, no JVD Lungs- No wheezing Heart- regular rhythm Abdomen- normal bowel sounds, +tenderness Extremities- no calf tenderness Neuro- alert, oriented x 3; PERRL, EOMI Skin- warm & dry Laboratory Results: Last 24 Hours Test 09/04/17 19:26 09/04/17 19:48 09/04/17 20:15 09/04/17 21:34 White Blood Count 5.51 K/uL Red Blood Count 3.97 M/uL Hemoglobin 14.3 g/dL Hematocrit 39.5 % Mean Corpuscular Volume 99.5 fL Mean Corpuscular Hemoglobin 36.0 pg Mean Corpuscular Hemoglobin Concent 36.2 g/dl Platelet Count 61 K/uL Mean Platelet Volume 12.4 fL Neutrophils (%) (Auto) 66.5 % Lymphocytes (%) (Auto) 18.0 % Monocytes (%) (Auto) 13.2 % Eosinophils (%) (Auto) 1.8 % Basophils (%) (Auto) 0.5 % Neutrophils # (Auto) 3.66 K/uL Lymphocytes # (Auto) 0.99 K/uL Monocytes # (Auto) 0.73 K/uL Eosinophils # (Auto) 0.10 K/uL Basophils # (Auto) 0.03 K/uL RDW Standard Deviation 48.5 fL RDW Coefficient of Variation 13.5 % Immature Granulocyte % (Auto) 0.0 % Immature Granulocyte # (Auto) 0.00 K/uL Tear Drop Cells 1+ Prothrombin Time 11.4 SECONDS Prothromb Time International Ratio 1.1 Activated Partial Thromboplast Time 25.7 SECONDS Partial Thromboplastin Ratio 1.0 Sodium Level 135 mmol/L Potassium Level 3.9 mmol/L Chloride Level 103 mmol/L Carbon Dioxide Level 23 mmol/L Anion Gap 8.0 mmol/L Blood Urea Nitrogen 14 mg/dl Creatinine 0.99 mg/dl Est Creatinine Clear Calc Drug Dose 88.4 ml/min Estimated GFR () 97.6 Estimated GFR (Non- 84.2 BUN/Creatinine Ratio 13.8 Random Glucose 84 mg/dl Calcium Level 8.7 mg/dl Magnesium Level 2.1 mg/dl Total Bilirubin 1.1 mg/dl Direct Bilirubin 0.5 mg/dl Aspartate Amino Transf (AST/SGOT) 58 U/L Alanine Aminotransferase (ALT/SGPT) 35 U/L Alkaline Phosphatase 86 U/L Ammonia umol/L umol/L umol/L Troponin I < 0.015 ng/ml Total Protein 7.6 gm/dl Albumin 3.3 gm/dl Lipase 164 U/L Ethyl Alcohol mg/dL < 3.0 mg/dl Bedside Glucose 81 mg/dl Test 09/04/17 22:22 09/05/17 05:51 Ammonia 125.2 umol/L 113.9 umol/L White Blood Count 3.23 K/uL Red Blood Count 3.62 M/uL Hemoglobin 12.9 g/dL Hematocrit 35.9 % Mean Corpuscular Volume 99.2 fL Mean Corpuscular Hemoglobin 35.6 pg Mean Corpuscular Hemoglobin Concent 35.9 g/dl Platelet Count 50 K/uL Mean Platelet Volume 12.2 fL Neutrophils (%) (Auto) 49.6 % Lymphocytes (%) (Auto) 30.0 % Monocytes (%) (Auto) 16.4 % Eosinophils (%) (Auto) 3.1 % Basophils (%) (Auto) 0.9 % Neutrophils # (Auto) 1.60 K/uL Lymphocytes # (Auto) 0.97 K/uL Monocytes # (Auto) 0.53 K/uL Eosinophils # (Auto) 0.10 K/uL Basophils # (Auto) 0.03 K/uL RDW Standard Deviation 48.8 fL RDW Coefficient of Variation 13.5 % Immature Granulocyte % (Auto) 0.0 % Immature Granulocyte # (Auto) 0.00 K/uL Large Platelets 1+ Sodium Level 139 mmol/L Potassium Level 3.6 mmol/L Chloride Level 106 mmol/L Carbon Dioxide Level 25 mmol/L Anion Gap 8.0 mmol/L Blood Urea Nitrogen 13 mg/dl Creatinine 0.91 mg/dl Est Creatinine Clear Calc Drug Dose 94.6 ml/min Estimated GFR () 108.0 Estimated GFR (Non- 93.2 BUN/Creatinine Ratio 14.2 Random Glucose 90 mg/dl Calcium Level 8.7 mg/dl Total Bilirubin 1.0 mg/dl Aspartate Amino Transf (AST/SGOT) 47 U/L Alanine Aminotransferase (ALT/SGPT) 28 U/L Alkaline Phosphatase 65 U/L Total Protein 6.1 gm/dl Albumin 2.9 gm/dl Globulin 3.2 gm/dl Albumin/Globulin Ratio 0.9 Assessment & Plan Syncope Seems to be related to vertigo Prior episode of dizziness CT head on admission showed no acute finding Orthostatic BP Will get a carotid doppler Fall precaution Elevated Ammonia no signs of hepatic encephalopathy continue Lactulose QID Chronic Thrombocytopenia: Likely secondary to Cirrhosis No active bleeding issues Monitor Platelets Platelet 50 Alcoholic Cirrhosis: No signs of decompensation Denies any recent alcohol use continue Lactulose, Rifaximin Resume diuretics tomorrow Chronic Vertigo: Denies change with position Meclizine PRN Orthostatic vital signs: no orthostasis Tobacco use: Counseled to quit smoking DVT Px: SCDs Re:thrombocytopenia Code Status: Full Code Current Inpatient Medications: Current Inpatient Medications Medications (Trade) Dose Ordered Sig/Kiya Route Start Time Stop Time Status Last Admin Dose Admin Acetaminophen (Tylenol Tab) 325 mg Q6H PRN PO 09/04/17 23:45 10/04/17 23:44 Nitroglycerin (Nitrostat Tab) 0.4 mg UD PRN SL 09/04/17 23:45 10/04/17 23:44 Prochlorperazine Edisylate 5 mg/ Syringe 5 ml @ 5 mls/min Q6H PRN IV 09/04/17 23:45 10/04/17 23:44 Tramadol HCl (Ultram Tab) 25 mg Q6H PRN PO 09/04/17 23:45 10/04/17 23:44 09/05/17 11:16 25 MG Morphine Sulfate (MoRPHine SULFATE INJ) 4 mg Q8H PRN IV 09/04/17 23:45 09/18/17 23:44 Cyanocobalamin (Vitamin B-12 Tab) 100 mcg DAILY PO 09/05/17 09:00 10/05/17 08:59 09/05/17 08:12 100 MCG Fluticasone Propionate (Flonase Nasal [place]) 2 sprays DAILY PRN GUANAKO 09/04/17 23:45 10/04/17 23:44 Folic Acid (Folvite Tab) 1 mg DAILY PO 09/05/17 09:00 10/05/17 08:59 09/05/17 08:12 1 MG Lactulose (Chronulac Syrup) 20 gm QID PO 09/05/17 09:00 10/05/17 08:59 09/05/17 16:57 20 GM Rifaximin (Xifaxan Tab) 550 mg BID PO 09/05/17 09:00 10/05/17 08:59 09/05/17 08:11 550 MG Thiamine HCl (Vitamin B-1 Tab) 100 mg DAILY PO 09/05/17 09:00 10/05/17 08:59 09/05/17 08:11 100 MG Pantoprazole Sodium (Protonix Tab) 40 mg QAM PO 09/05/17 09:00 10/05/17 08:59 09/05/17 08:11 40 MG Meclizine HCl (Antivert Tab) 12.5 mg QID PRN PO 09/05/17 00:15 10/05/17 00:14
[2017-09-05] MEDS: FUROSEMIDE 40 MG TAB PO SCH (18:12)
[2017-09-06 00:21] VITALS: BP 117/63; PULSE 71; TEMP 37.1; O2SAT 98
[2017-09-06 03:06] VITALS: BP 100/62; PULSE 73; TEMP 37.2; O2SAT 96
[2017-09-06] MEDS: TRAMADOL HCL 50 MG TAB PO PRN ×2 (03:32→21:32)
[2017-09-06 06:59] VITALS: BP 134/75; PULSE 78; TEMP 37.1; O2SAT 99
[2017-09-06] MEDS: FUROSEMIDE 40 MG TAB PO SCH ×2 (07:56→17:23)
[2017-09-06] MEDS: RIFAXIMIN TAB 550 MG TAB PO SCH ×2 (07:57→21:31)
[2017-09-06] MEDS: CYANOCOBALAMIN 100 MCG TAB (VIT B-12) PO SCH (07:57)
[2017-09-06] MEDS: PANTOprazole SOD 40 MG TAB PO SCH (07:57)
[2017-09-06] MEDS: THIAMINE HCL 100 MG TAB PO SCH (07:57)
[2017-09-06] MEDS: LACTULOSE SYRUP 20 GM/30 ML UDC PO SCH ×4 (07:58→21:31)
[2017-09-06 11:04] VITALS: BP 122/77; PULSE 78; TEMP 36.8; O2SAT 98
[2017-09-06] MEDS: MECLIZINE HCL 12.5 MG TAB PO PRN ×2 (12:02→15:09)
--- NOTE | 2017-09-06 15:29 | DIAGNOSTIC IMAGING REPORT ---
ULTRASOUND OF THE CAROTID ARTERIES CLINICAL HISTORY: dizziness COMPARISON STUDY: December 2014 TECHNIQUE: Real-time, grayscale, and color Doppler sonography of the carotid arteries was performed. Imaging reviewed in the transverse and longitudinal planes. NASCET criteria was utilized for stenosis calcification. FINDINGS: There is minimal atherosclerotic plaque present . The peak systolic velocity within the right internal carotid artery is 110 cm/sec. The systolic velocity ratio of right internal to common carotid artery is 0.9. The peak systolic velocity within the left internal carotid artery is 155 cm/sec. The systolic velocity ratio left internal to common carotid artery is 1.5. Antegrade flow is seen in the vertebral arteries. The external carotid arteries are patent. IMPRESSION: Slight elevation of the peak systolic velocity of the left internal carotid artery, but no evidence of hemodynamically significant carotid stenosis. Electronically signed by: Layo Murillo M.D. 09/06/2017 3:28 PM Dictated Date/Time: 09/06/2017 3:26 PM
[2017-09-06 15:48] VITALS: BP 106/63; PULSE 72; TEMP 36.8; O2SAT 96
--- NOTE | 2017-09-06 18:37 | Progress Note ---
Medicine Progress Note Date & Time of Visit: Sep 06, 2017 at 18:30. Subjective Pt was seen and examined Lying in bed with no distress Continue complaint of shoulder pain and dizziness Denies any chest pain, palpitation, dizziness and SOB Objective Last 8 Hrs Date Time Temp Pulse Resp B/P (MAP) Pulse Ox O2 Delivery O2 Flow Rate FiO2 09/06/17 15:48 36.8 72 20 106/63 (77) 96 Room Air 09/06/17 11:04 36.8 78 20 122/77 (92) 98 Room Air Physical Exam: General- No acute distress Head- atraumatic Eyes- PERRL, EOMI ENT- oropharynx clear Neck- supple, no JVD Lungs- No wheezing Heart- regular rhythm Abdomen- normal bowel sounds, +tenderness Extremities- no calf tenderness Neuro- alert, oriented x 3; PERRL, EOMI Skin- warm & dry Laboratory Results: Last 24 Hours Test 09/06/17 05:29 09/06/17 15:13 Ammonia 129.0 umol/L Bedside Glucose 134 mg/dl Assessment & Plan Syncope Seems to be related to vertigo Previous admission for dizziness CT head on admission showed no acute finding Carotid Doppler showed no evidence of hemodynamically significant carotid stenosis. Orthostatic BP Fall precaution Elevated Ammonia no signs of hepatic encephalopathy continue Lactulose QID Chronic Thrombocytopenia: Likely secondary to Cirrhosis No active bleeding issues Monitor Platelets Platelet 50 Alcoholic Cirrhosis: No signs of decompensation Denies any recent alcohol use continue Lactulose, Rifaximin Continue Lasix bid Spironolactone resumed Chronic Vertigo Denies change with position Carotid doppler showed no significant stenosis Meclizine PRN Orthostatic vital signs: no orthostasis Tobacco use: Counseled to quit smoking DVT Px: SCDs Re:thrombocytopenia Code Status: Full Code Disposition Will transfer to Medical Current Inpatient Medications: Current Inpatient Medications Medications (Trade) Dose Ordered Sig/Kiya Route Start Time Stop Time Status Last Admin Dose Admin Acetaminophen (Tylenol Tab) 325 mg Q6H PRN PO 09/04/17 23:45 10/04/17 23:44 Nitroglycerin (Nitrostat Tab) 0.4 mg UD PRN SL 09/04/17 23:45 10/04/17 23:44 Prochlorperazine Edisylate 5 mg/ Syringe 5 ml @ 5 mls/min Q6H PRN IV 09/04/17 23:45 10/04/17 23:44 Tramadol HCl (Ultram Tab) 25 mg Q6H PRN PO 09/04/17 23:45 10/04/17 23:44 09/06/17 03:32 25 MG Morphine Sulfate (MoRPHine SULFATE INJ) 4 mg Q8H PRN IV 09/04/17 23:45 09/18/17 23:44 Cyanocobalamin (Vitamin B-12 Tab) 100 mcg DAILY PO 09/05/17 09:00 10/05/17 08:59 09/06/17 07:57 100 MCG Fluticasone Propionate (Flonase Nasal [place]) 2 sprays DAILY PRN GUANAKO 09/04/17 23:45 10/04/17 23:44 Folic Acid (Folvite Tab) 1 mg DAILY PO 09/05/17 09:00 10/05/17 08:59 09/06/17 07:57 1 MG Lactulose (Chronulac Syrup) 20 gm QID PO 09/05/17 09:00 10/05/17 08:59 09/06/17 17:22 20 GM Rifaximin (Xifaxan Tab) 550 mg BID PO 09/05/17 09:00 10/05/17 08:59 09/06/17 07:57 550 MG Thiamine HCl (Vitamin B-1 Tab) 100 mg DAILY PO 09/05/17 09:00 10/05/17 08:59 09/06/17 07:57 100 MG Pantoprazole Sodium (Protonix Tab) 40 mg QAM PO 09/05/17 09:00 10/05/17 08:59 09/06/17 07:57 40 MG Meclizine HCl (Antivert Tab) 12.5 mg QID PRN PO 09/05/17 00:15 10/05/17 00:14 09/06/17 15:09 12.5 MG Furosemide (Lasix Tab) 40 mg BID17 PO 09/05/17 18:00 10/05/17 17:59 09/06/17 17:23 40 MG
[2017-09-06 19:28] VITALS: BP 122/73; PULSE 71; TEMP 36.8; O2SAT 97
[2017-09-07] VITALS (7 sets, daily range): BP systolic 94–128; BP diastolic 58–76; PULSE 66–85; TEMP 36.5–36.8; O2SAT 95–98
[2017-09-07] MEDS: RIFAXIMIN TAB 550 MG TAB PO SCH (09:54)
[2017-09-07] MEDS: CYANOCOBALAMIN 100 MCG TAB (VIT B-12) PO SCH (09:54)
[2017-09-07] MEDS: THIAMINE HCL 100 MG TAB PO SCH (09:54)
[2017-09-07] MEDS: LACTULOSE SYRUP 20 GM/30 ML UDC PO SCH ×3 (09:55→16:05)
[2017-09-07] MEDS: FUROSEMIDE 40 MG TAB PO SCH ×2 (09:55→16:05)
[2017-09-07] MEDS: PANTOprazole SOD 40 MG TAB PO SCH (09:55)
[2017-09-07] MEDS: SPIRONOLACTONE 100 MG TAB PO SCH ×2 (12:23→16:05)
[2017-09-07] MEDS: MECLIZINE HCL 12.5 MG TAB PO PRN (13:24)
--- NOTE | 2017-09-07 15:35 | Progress Note ---
Medicine Progress Note Date & Time of Visit: Sep 07, 2017 at 15:29. Subjective Pt was seen and examined He was sitting in bed with no distress He said that his dizziness improves Denies any chest pain, palpitation, dizziness and SOB Objective Last 8 Hrs Date Time Temp Pulse Resp B/P (MAP) Pulse Ox O2 Delivery O2 Flow Rate FiO2 09/07/17 11:26 36.8 85 18 112/60 (77) 95 09/07/17 10:31 96 Room Air 09/07/17 07:40 36.7 82 20 116/69 (85) 96 Room Air Physical Exam: General- No acute distress Head- atraumatic Eyes- PERRL, EOMI ENT- oropharynx clear Neck- supple, no JVD Lungs- No wheezing Heart- regular rhythm Abdomen- normal bowel sounds, +tenderness Extremities- no calf tenderness Neuro- alert, oriented x 3; PERRL, EOMI Skin- warm & dry Assessment & Plan Syncope Seems to be related to vertigo Previous admission for dizziness CT head on admission showed no acute finding Carotid Doppler showed no evidence of hemodynamically significant carotid stenosis. Orthostatic BP Fall precaution Continue meclizine Elevated Ammonia no signs of hepatic encephalopathy continue Lactulose QID Chronic Thrombocytopenia: Likely secondary to Cirrhosis No active bleeding issues Monitor Platelets Platelet 50 Alcoholic Cirrhosis: No signs of decompensation Denies any recent alcohol use continue Lactulose, Rifaximin Continue Lasix bid Spironolactone resumed Chronic Vertigo Denies change with position Carotid doppler showed no significant stenosis Meclizine PRN Orthostatic vital signs: no orthostasis Tobacco use: Counseled to quit smoking DVT Px: SCDs Re:thrombocytopenia Code Status: Full Code Disposition Continue PT Current Inpatient Medications: Current Inpatient Medications Medications (Trade) Dose Ordered Sig/Kiya Route Start Time Stop Time Status Last Admin Dose Admin Acetaminophen (Tylenol Tab) 325 mg Q6H PRN PO 09/04/17 23:45 10/04/17 23:44 Nitroglycerin (Nitrostat Tab) 0.4 mg UD PRN SL 09/04/17 23:45 10/04/17 23:44 Prochlorperazine Edisylate 5 mg/ Syringe 5 ml @ 5 mls/min Q6H PRN IV 09/04/17 23:45 10/04/17 23:44 Tramadol HCl (Ultram Tab) 25 mg Q6H PRN PO 09/04/17 23:45 10/04/17 23:44 09/06/17 21:32 25 MG Morphine Sulfate (MoRPHine SULFATE INJ) 4 mg Q8H PRN IV 09/04/17 23:45 09/18/17 23:44 Cyanocobalamin (Vitamin B-12 Tab) 100 mcg DAILY PO 09/05/17 09:00 10/05/17 08:59 09/07/17 09:54 100 MCG Fluticasone Propionate (Flonase Nasal [place]) 2 sprays DAILY PRN GUANAKO 09/04/17 23:45 10/04/17 23:44 Folic Acid (Folvite Tab) 1 mg DAILY PO 09/05/17 09:00 10/05/17 08:59 09/07/17 09:54 1 MG Lactulose (Chronulac Syrup) 20 gm QID PO 09/05/17 09:00 10/05/17 08:59 09/07/17 12:25 20 GM Rifaximin (Xifaxan Tab) 550 mg BID PO 09/05/17 09:00 10/05/17 08:59 09/07/17 09:54 550 MG Thiamine HCl (Vitamin B-1 Tab) 100 mg DAILY PO 09/05/17 09:00 10/05/17 08:59 09/07/17 09:54 100 MG Pantoprazole Sodium (Protonix Tab) 40 mg QAM PO 09/05/17 09:00 10/05/17 08:59 09/07/17 09:55 40 MG Meclizine HCl (Antivert Tab) 12.5 mg QID PRN PO 09/05/17 00:15 10/05/17 00:14 09/07/17 13:24 12.5 MG Furosemide (Lasix Tab) 40 mg BID17 PO 09/05/17 18:00 10/05/17 17:59 09/07/17 09:55 40 MG Spironolactone (Aldactone Tab) 100 mg BID17 PO 09/07/17 09:00 10/07/17 08:59 09/07/17 12:23 100 MG Valacyclovir HCl (Valtrex Tab) 1,000 mg DAILY PO 09/07/17 09:00 10/07/17 08:59 09/07/17 12:23 1,000 MG
--- NOTE | 2017-09-07 15:44 | Discharge Instructions ---
Discharge Instructions Date of Service Sep 07, 2017. Admission Reason for Admission: Hyperammonemia,Syncope Discharge Discharge Diagnosis / Problem: Syncope, Dizziness, Alcoholic Cirrhosis, Chronic thrombocytopenia Discharge Goals Goal(s): Decrease discomfort, Improve function, Improve disease control Activity Recommendations Activity Limitations: resume your previous activity (as tolerated) . Instructions / Follow-Up Instructions / Follow-Up Follow up with your primary care provider Dr. Garcia on 09/13 @ 10:45 AM Fall precaution Continue physical therapy (order given to patient) Counseling on smoking cessation Avoid NSAID such as (Naproxen, aleve, motrin, ibuprofen, advil) due to risk of bleeding Check CBC in 1 week to monitor platelet level Current Hospital Diet Patient's current hospital diet: Low Sodium Diet (2gm Na) Discharge Diet Recommended Diet: Low Sodium Diet (2gm Na) Pending Studies Studies pending at discharge: no Medical Emergencies . Who to Call and When: Medical Emergencies: If at any time you feel your situation is an emergency, please call 911 immediately. . Non-Emergent Contact Non-Emergency issues call your: Primary Care Provider Call Non-Emergent contact if: you have any medication questions . . "Provider Documentation" section prepared by Elizabeth Adame. .
--- NOTE | 2017-09-10 08:11 | Discharge Summary ---
Discharge Summary Date of Service Sep 10, 2017. Discharge Summary Admission Date: Sep 05, 2017 at 00:05 Discharge Date: Sep 07, 2017 Discharge Disposition: Home with services Principal Diagnosis: Syncope Secondary Diagnoses/Problems: Elevated Ammonia Chronic Thrombocytopenia Alcoholic Cirrhosis: Chronic Vertigo Tobacco use: Procedures: ULTRASOUND OF THE CAROTID ARTERIES CLINICAL HISTORY: dizziness COMPARISON STUDY: December 2014 TECHNIQUE: Real-time, grayscale, and color Doppler sonography of the carotid arteries was performed. Imaging reviewed in the transverse and longitudinal planes. NASCET criteria was utilized for stenosis calcification. FINDINGS: There is minimal atherosclerotic plaque present . The peak systolic velocity within the right internal carotid artery is 110 cm/sec. The systolic velocity ratio of right internal to common carotid artery is 0.9. The peak systolic velocity within the left internal carotid artery is 155 cm/sec. The systolic velocity ratio left internal to common carotid artery is 1.5. Antegrade flow is seen in the vertebral arteries. The external carotid arteries are patent. IMPRESSION: Slight elevation of the peak systolic velocity of the left internal carotid artery, but no evidence of hemodynamically significant carotid stenosis. Electronically signed by: Layo Murillo M.D. 09/06/2017 3:28 PM Dictated Date/Time: 09/06/2017 3:26 PM L SHOULDER MIN 2 VIEWS ROUTINE HISTORY: 57 years-old Male pain, fall acute left shoulder pain status post fall COMPARISON: Chest radiograph 02/21/2017 TECHNIQUE: 2 views of the left shoulder FINDINGS: Mild glenohumeral and AC joint osteoarthritis. There is no acute fracture or dislocation. Imaged lung munguia appear clear. No opaque foreign body. IMPRESSION: No acute fracture or dislocation. The above report was generated using voice recognition software. It may contain grammatical, syntax or spelling errors. Electronically signed by: Eliceo Herrera M.D. 09/04/2017 9:12 PM Dictated Date/Time: 09/04/2017 9:11 PM CERVICAL SPINE W/O CT DOSE: 1019.23 mGy.cm CLINICAL HISTORY: 57 years-old Male with EVALUATE FOR TRAUMA/INJURY. Acute neck injury COMPARISON: CTA of the neck 05/17/2016 TECHNIQUE: Multiple axial CT images of the cervical spine were obtained without contrast. A dose lowering technique was utilized adhering to the principles of ALARA. FINDINGS: Mastoid air cells and middle ear cavities are clear. No acute cervical spine fracture or subluxation. Moderate intervertebral disc space narrowing at C6-C7. 2 mm retrolisthesis C6 on C7 is likely on a degenerative basis. Posterior disc osteophyte complex formation is noted at this level. Mild multilevel facet arthropathy. Evaluation of the central canal and neuroforamina is better assessed by MRI. C6-C7 there is moderate left and mild right foraminal narrowing. There is no prevertebral soft tissue swelling. No definite high-grade central canal stenosis. Soft tissues of the neck are unremarkable. Mild mixed plaque formation about the left carotid bulb. Lung apices are clear. IMPRESSION: 1. No acute cervical spine fracture or subluxation. 2. Moderate intervertebral disc space narrowing with posterior disc osteophyte complex formation at C6-C7. 2 mm retrolisthesis C6 on C7 is likely on a degenerative basis. The above report was generated using voice recognition software. It may contain grammatical, syntax or spelling errors. Electronically signed by: Eliceo Herrera M.D. 09/04/2017 7:59 PM Dictated Date/Time: 09/04/2017 7:52 PM HEAD WITHOUT CONTRAST (CT) CLINICAL HISTORY: 57 years-old Male with EVALUATE FOR TRAUMA/INJURY. Acute head injury TECHNIQUE: Multiple axial CT images of the head were obtained without contrast. A dose lowering technique was utilized adhering to the principles of ALARA. COMPARISON: CT cervical spine of same day, CT head 04/21/2017 FINDINGS: No acute intracranial hemorrhage, midline shift, intracranial mass, hydrocephalus, territorial ischemia or abnormal extra-axial collection. Cerebral vascular calcifications are noted. The calvarium is intact. The paranasal sinuses, mastoid air cells, and middle ear cavities are clear. IMPRESSION: No acute intracranial abnormality. The above report was generated using voice recognition software. It may contain grammatical, syntax or spelling errors. Electronically signed by: Eliceo Herrera M.D. 09/04/2017 7:49 PM Dictated Date/Time: 09/04/2017 7:46 PM CHEST ONE VIEW PORTABLE HISTORY: 57 years-old Male EVALUATE FOR TRAUMA/INJURY acute chest trauma status post fall with syncope COMPARISON: Acute abdominal series radiographs 05/04/2017 TECHNIQUE: Portable AP view of the chest FINDINGS: Cardiomediastinal and hilar silhouettes are within normal limits. No pneumothorax, pleural effusion, focal airspace consolidation or overt pulmonary edema. Bones of the chest appear grossly intact. IMPRESSION: No acute process. The above report was generated using voice recognition software. It may contain grammatical, syntax or spelling errors. Electronically signed by: Eliceo Herrera M.D. 09/04/2017 7:18 PM Dictated Date/Time: 09/04/2017 7:17 PM Medication Reconciliation Continued Medications: Albuterol Hfa (Ventolin Hfa) 200 Puffs/10409 Mcg Aers 2 PUFFS INH Q4H PRN for Shortness of Breath, INHALER Cyanocobalamin (Vitamin B-12) 100 Mcg Tab 100 MCG PO DAILY Diclofenac Sodium (Topical) (Voltaren 1% Top Gel) 1 % Gel 2 GM TOP BID PRN for Pain Fluticasone Propionate (Fluticasone Propionate) 120 Sprays/6000 Mcg Inha 2 SPRAYS GUANAKO DAILY PRN for Allergy Symptoms Folic Acid (Folic Acid) 1 Mg Tab 1 MG PO DAILY Furosemide (Lasix) 40 Mg Tab 40 MG PO BID, TAB Lactulose (Chronulac) 10 Gm/15 Ml Syrp 30 ML PO QID HOLD THIS MEDICATION AFTER 3 BOWEL MOVEMENTS A DAY Meclizine HCl (Meclizine HCl) 25 Mg Tab 12.5-25 MG PO TID PRN for Dizziness or Vertigo Omeprazole (Prilosec) 40 Mg Cap 40 MG PO DAILY Rifaximin (Xifaxan) 550 Mg Tab 550 MG PO BID, TAB Spironolactone (Spironolactone) 100 Mg Tab 100 MG PO BID Thiamine HCl (Vitamin B-1) 100 Mg Tab 100 MG PO DAILY Valacyclovir Hcl (Valtrex) 1 Gm Tab 1 GM PO DAILY Admission Information HPI (per Admitting provider): CHIEF COMPLAINT: Fall, black-out. HISTORY OF PRESENT ILLNESS: Medical history significant for alcoholic cirrhosis, past tobacco and alcohol abuse, chronic anemia (baseline hemoglobin 13), history of portal vein thrombosis as per records. Recent confinement last May 2017 for acute gastroenteritis. Last night, patient had attack of dizziness, some spinning, felt lightheaded. Subsequently blacked out prior to hitting the floor. Some head trauma after. No chest pain, no shortness of breath, no unusual abdominal distention. Appetite not too good. No black, no bloody stools. Compliant with home meds. Patient brought to the ER. Physical Exam (per Admitting): PHYSICAL EXAMINATION: VITAL SIGNS: Blood pressure was noted to be 117/76, pulse rate 81, RR 20, temperature 37.1, sats 97 on room air. GENERAL: Noted to be obese, slightly uncomfortable, in no respiratorydistress. SKIN: Pallor, warm. HEENT: Contusion, left forehead, pink palpebral conjunctivae. No ptosis. Dry mucosa. NECK: Cervical collar noted. Unable to test for mobility. CHEST: Decreased breath sounds. No tenderness. HEART: Regular rate and rhythm, no murmur. ABDOMEN: Minimal epigastric tenderness, some distention. EXTREMITIES: Minimal LE edema, no tenderness. No other gross deformities. NEUROLOGIC: Coherent. No gross focality. Hospital Course Syncope Seems to be related to vertigo Previous admission for dizziness CT head on admission showed no acute finding Carotid Doppler showed no evidence of hemodynamically significant carotid stenosis. Orthostatic BP Fall precaution Continue meclizine Elevated Ammonia no signs of hepatic encephalopathy continue Lactulose QID Chronic Thrombocytopenia: Likely secondary to Cirrhosis No active bleeding issues Monitor Platelets Platelet 50 Alcoholic Cirrhosis: No signs of decompensation Denies any recent alcohol use continue Lactulose, Rifaximin Continue Lasix bid Spironolactone resumed Chronic Vertigo Denies change with position Carotid doppler showed no significant stenosis Meclizine PRN Orthostatic vital signs: no orthostasis Tobacco use: Counseled to quit smoking DVT Px: SCDs Re:thrombocytopenia Code Status: Full Code Disposition Continue PT Total time spent on discharge = 35 minutes This includes examination of the patient, discharge planning, medication reconciliation, and communication with other providers. Discharge Instructions Discharge Instructions Date of Service Sep 07, 2017. Admission Reason for Admission: Hyperammonemia,Syncope Discharge Discharge Diagnosis / Problem: Syncope, Dizziness, Alcoholic Cirrhosis, Chronic thrombocytopenia Discharge Goals Goal(s): Decrease discomfort, Improve function, Improve disease control Activity Recommendations Activity Limitations: resume your previous activity (as tolerated) . Instructions / Follow-Up Instructions / Follow-Up Follow up with your primary care provider Dr. Garcia on 09/13 @ 10:45 AM Fall precaution Continue physical therapy (order given to patient) Counseling on smoking cessation Avoid NSAID such as (Naproxen, aleve, motrin, ibuprofen, advil) due to risk of bleeding Check CBC in 1 week to monitor platelet level Current Hospital Diet Patient's current hospital diet: Low Sodium Diet (2gm Na) Discharge Diet Recommended Diet: Low Sodium Diet (2gm Na) Pending Studies Studies pending at discharge: no Medical Emergencies . Who to Call and When: Medical Emergencies: If at any time you feel your situation is an emergency, please call 911 immediately. . Non-Emergent Contact Non-Emergency issues call your: Primary Care Provider Call Non-Emergent contact if: you have any medication questions . . "Provider Documentation" section prepared by Elizabeth Adame. . Additional Copies To Najma Garcia M.D.
== END 2017-09-07 16:05 | disposition home or self-care (01) | DRG 149 ==
LOC: EDBD 18:34 → C.EDA 18:35 → UNDOADMIN 23:11 → C.2T 23:11 → ENRESERV 23:19 → C.2T 09-05 00:05 → C.MED 09-06 23:47
PROVIDERS: ADMIT Internal Medicine; ATTEND Internal Medicine
DX: R42 Dizziness and giddiness (principal); I85.10 Secondary esophageal varices without bleeding; F10.21 Alcohol dependence, in remission; K70.30 Alcoholic cirrhosis of liver without ascites; D69.6 Thrombocytopenia, unspecified; K31.89 Other diseases of stomach and duodenum; Z87.891 Personal history of nicotine dependence

== ENCOUNTER 2018-10-25 07:32 | Inpatient (IN) ==
--- NOTE | 2018-09-24 17:27 | PAT Medication Instructions ---
Medication Instructions Date of Service September 25, 2018 Home Medications Xifaxan 550 mg PO BID cyanocobalamin (vitamin B-12) [Vitamin B-12] 100 mcg PO Q OTHER DAY folic acid 1 mg PO QAM furosemide [Lasix] 40 mg PO BID lactulose 10 g PO DAILY NEEDED meclizine 25 mg PO TID NEEDED omeprazole 40 mg PO QAM spironolactone 100 mg PO BID thiamine HCl (vitamin B1) [Vitamin B-1] 100 mg PO QAM valacyclovir [Valtrex] 1,000 mg PO QAM fluticasone propionate 2 spray INTRANASAL DAILY NEEDED ondansetron HCl [Zofran] 4 mg PO Q6H NEEDED albuterol sulfate [Ventolin HFA] 2 puff INHALATION Q4 NEEDED duloxetine 40 mg PO QPM potassium chloride 20 meq PO DAILY NEEDED amitriptyline 10 mg PO HS DO NOT take the morning of surgery cyanocobalamin (vitamin B-12) [Vitamin B-12] 100 mcg PO Q OTHER DAY folic acid 1 mg PO QAM furosemide [Lasix] 40 mg PO BID meclizine 25 mg PO TID NEEDED spironolactone 100 mg PO BID thiamine HCl (vitamin B1) [Vitamin B-1] 100 mg PO QAM fluticasone propionate 2 spray INTRANASAL DAILY NEEDED ondansetron HCl [Zofran] 4 mg PO Q6H NEEDED potassium chloride 20 meq PO DAILY NEEDED Take morning of surgery With a small sip of water, OTHERWISE NOTHING TO EAT OR DRINK AFTER MIDNIGHT: Xifaxan 550 mg PO BID omeprazole 40 mg PO QAM valacyclovir [Valtrex] 1,000 mg PO QAM lactulose 10 g PO DAILY NEEDED (if needed) albuterol sulfate [Ventolin HFA] 2 puff INHALATION Q4 NEEDED (if needed; bring to hospital) Take evening before surgery Xifaxan 550 mg PO BID furosemide [Lasix] 40 mg PO BID spironolactone 100 mg PO BID duloxetine 40 mg PO QPM amitriptyline 10 mg PO HS lactulose 10 g PO DAILY NEEDED (if needed) meclizine 25 mg PO TID NEEDED (if needed) albuterol sulfate [Ventolin HFA] 2 puff INHALATION Q4 NEEDED (if needed) ondansetron HCl [Zofran] 4 mg PO Q6H NEEDED (if needed) Other Notes If you have any questions please call us at [phone] or [phone] or [phone] or [phone]
--- NOTE | 2018-09-25 13:13 | Anesthesiology Consultation ---
Date of Service September 25, 2018 Assessment & Plan (1) Encounter for pre-operative examination: - Discussed labs with Daina at Dr. Recinos office. She will discuss with Dr. Allen re: possible platelet transfusion or referral to GI prior to surgery. Discussed the fact that patient will likely not be able to have spinal due to low platelets. Dr. Allen's office to let us know. Chart Review Chart Review: Pending: Refer to Additional Notes / Consult section (Pending input from Dr. Allen re: low platelets and from PCP preoperative evaluation. May need platelet transfusion. ) and Patient seen in Pre Admission Testing Consults Requested medical & cardiac (Dr. Garcia (10/02) & Samir White (09/03)) Patient was seen by cardiology on 09/03 for preoperative evaluation. Per note from that visit, "I see no overt cardiac contraindications to right hip replacement as planned." Teaching & Discussion Pre-Anesthesia Teaching/Discussion Notes: Instructed NPO after midnight before surgery, except medications with 15 cc of water. Medication instructions provided according to the PAT guidelines. History Surgery Operation Date: 10/25/18 08:55 Proposed Procedures p Right Anterior Total Hip Arthroplasty - Quinn Allen, Height/Weight Height: 5 ft 6 in Weight: 85.2 kg Allergies Allergy/AdvReac Type Severity Reaction Status Date / Time No Known Allergies Allergy Verified 09/11/18 11:31 Medications Home Medications Medication Instructions Recorded Confirmed Last Taken Xifaxan 550 mg PO BID 11/04/17 09/11/18 05/08/18 06:00 cyanocobalamin (vitamin B-12) 100 mcg PO Q OTHER DAY 11/04/17 09/11/18 05/07/18 08:00 [Vitamin B-12] folic acid 1 mg PO QAM 11/04/17 09/11/18 05/07/18 08:00 furosemide [Lasix] 40 mg PO BID 11/04/17 09/11/18 05/07/18 15:00 lactulose 10 g PO DAILY PRN 11/04/17 09/11/18 05/07/18 11:00 meclizine 25 mg PO TID PRN 11/04/17 09/11/18 05/06/18 13:00 omeprazole 40 mg PO QAM 11/04/17 09/11/18 05/07/18 08:00 spironolactone 100 mg PO BID 11/04/17 09/11/18 05/07/18 08:00 thiamine HCl (vitamin B1) [Vitamin 100 mg PO QAM 11/04/17 09/11/18 05/07/18 08:00 B-1] valacyclovir [Valtrex] 1,000 mg PO QAM 11/04/17 09/11/18 05/06/18 20:00 fluticasone propionate 2 spray INTRANASAL DAILY PRN 04/11/18 09/11/18 05/06/18 12:00 ondansetron HCl [Zofran] 4 mg PO Q6H PRN 04/11/18 09/11/18 05/07/18 20:00 albuterol sulfate [Ventolin HFA] 2 puff INHALATION Q4 PRN 04/30/18 09/11/18 04/23/18 12:00 duloxetine 40 mg PO QPM 04/30/18 09/11/18 05/07/18 14:00 potassium chloride 20 meq PO DAILY PRN 04/30/18 09/11/18 05/06/18 08:00 amitriptyline 10 mg PO HS 09/11/18 09/11/18 Unknown Past Medical History Medical History Anxiety Chronic back pain Depression Hearing deficit History of alcohol abuse History of anemia History of cirrhosis of liver D/T ALCOHOL - LAST ALCOHOL 5 YR AGO History of colon polyps Hx of ascites Hx of encephalopathy HEAPTIC Hx of esophageal varices Hx of gynecomastia Hx of herpes genitalis Hx of thrombocytopenia Hypertension Osteoarthritis Vertigo Exercise / Class Metabolic Activity IV < 2 Limit ADL/Bedbound (Uses motorized wheelchair mostly. Walks occasionally with walker. Does UE stretches. Able to climb 3 stairs to get into house if holding onto something. Can SLOWLY climb full FOS to get up/down to basement. Does get very SOB. H/O chest pain with normal cardiac testing. No chest pain recently. ) Past Family History Family History Father Family history of diabetes mellitus Other No family history of adverse response to anesthesia No pertinent family history Past Surgical History Surgical History History of colonoscopy History of esophagogastroduodenoscopy (EGD) History of tooth extraction all teeth removed Hx of decompression of ulnar nerve RIGHT Past Anesthesia History No Hx of Anesthesia Complications and No Family Hx of Anesthesia Complications History of PONV No Hx of PONV and Hx of Motion Sickness (When sitting at red lights) Social History Smoking Status: Former smoker Smoking cigarettes per day: 1ppd x 2 years Do You Dip or Chew Tobacco: Yes (Rarely - Advised) Smoking End Date: QUIT 40 YR AGO Hx Alcohol Use: Yes Alcohol type: beer Alcohol Intake Frequency Comment: HX ALCOHOL ABUSE - quit 06/07/13 Hx Substance Use: No substance use type: marijuana Last Used Substance Other:: 2 months ago Review of Systems Patient denies chest pain, cough, wheezing, palpitations. +SOB/ROONEY +Joint Pain (Back, Hips, knees) +Acid Reflux (controlled by current medications) Physical Exam Vital Signs BP: 114/75 P: 66 R: 16 T: 98.6 SPO2: 98% on RA ENMT Mouth: + dentures (has upper and lower dentures, but isn't wearing them today) and + edentulous Thyromental Distance: > or= 3.5 Finger Breadths (4) Mallampati Class: I Neck normal visual inspection and + facial hair (Advised); neck extension not limited Respiratory normal respiratory effort Auscultation: lungs clear to auscultation bilaterally Cardiovascular Rate/Rhythm: regular rate and regular rhythm Heart Sounds: no murmur Vessels: no carotid bruit Neurologic moves all extremities Psychiatric Orientation: alert and oriented x 3 Testing Laboratory Results 09/25/18 13:34 09/25/18 13:34 PT 12.3 Seconds (9.0-12.0) H 09/25/18 13:34 INR 1.2 (0.9-1.1) H 09/25/18 13:34 APTT 26.2 Seconds (21.0-31.0) 09/25/18 13:34 Urine Color Dark Yellow 09/25/18 Unknown Urine Appearance Clear (Clear) 09/25/18 Unknown Urine pH 5.5 (4.5-7.5) 09/25/18 Unknown Ur Specific [place] 1.020 (1.000-1.030) 09/25/18 Unknown Urine Protein Negative (Negative) 09/25/18 Unknown Urine Glucose (UA) Negative (Negative) 09/25/18 Unknown Urine Ketones Negative (Negative) 09/25/18 Unknown Urine Nitrite Negative (Negative) 09/25/18 Unknown Ur Leukocyte Esterase Negative (Negative) 09/25/18 Unknown Blood Type A Positive 09/25/18 13:34 Antibody Screen NEGATIVE 09/25/18 13:34 Discussed labs with Daina at Dr. Recinos office. She will discuss with Dr. Allen re: possible platelet transfusion or referral to GI prior to surgery. Discussed the fact that patient will likely not be able to have spinal due to low platelets. Dr. Allen's office to let us know. Electrocardiogram Date: 06/20/18 Findings: + NSR @ (81) and + no change from (11/14/16) Rightward axis Echocardiogram Date: 03/27/14 EF: 55-60% LV Function: normal RWMA: + none Other Findings: + diastolic dysfunction (Grade I (abnormal relaxation pattern)) Valvular Disease: + no significant valvular disease Stress Test Date: 07/10/18 Type: DSE Findings: + WNL Resting EF: 55-59% Resting LV Function: normal LV diastolic function is mildly abnormal (grade I)
[2018-09-25 14:10] LABS: Hematocrit (blood only) 41.7 % (42-52); Hemoglobin 14.8 g/dL (14.0-18.0); Mean Corpuscular Hgb Conc 35.5 g/dL (32-36); Mean Corpuscular Volume 98.6 fL (80-100); Mean Platelet Volume 11.7 fL (7.4-10.4); Platelet Count 63 K/uL (130-400); RDW Coefficient of Variation 14.1 % (11.5-14.5); RDW Standard Deviation 50.8 fL (36.4-46.3); Red Blood Count 4.23 M/uL (4.7-6.1); White Blood Count 4.87 K/uL (4.8-10.8)
[2018-09-25 14:20] LABS: Albumin Level 3.5 gm/dl (3.4-5.0); BUN Creatinine Ratio 11.4 (10-20); Bilirubin Direct 0.6 mg/dl (0-0.2); Creatinine Clr Calc Pharmacy 99.3 ml/min; Est GFR (African American) 112.4; Potassium 3.6 mmol/L (3.5-5.1)
[2018-09-25 14:22] LABS: Bilirubin,Total 2.2 mg/dl (0.2-1); Total Protein 7.2 gm/dl (6.4-8.2)
[2018-09-25 14:29] LABS: Basophils # (auto) 0.03 K/uL (0-0.2); Basophils % (auto) 0.6 %; Eosinophils # (auto) 0.11 K/uL (0-0.5); Eosinophils % (auto) 2.3 %; Immature Granulocytes # (auto) 0.01 K/uL (0.00-0.02); Immature Granulocytes % (auto) 0.2 %; Lymphocytes # (auto) 1.16 K/uL (1.2-3.4); Lymphocytes % (auto) 23.8 %; Monocytes # (auto) 0.56 K/uL (0.11-0.59); Monocytes % (auto) 11.5 %; Neutrophils % (auto) 61.6 %
[2018-09-25 14:30] LABS: INR 1.2 (0.9-1.1); Partial Thromboplastin Time 26.2 Seconds (21.0-31.0); Prothrombin Time 12.3 Seconds (9.0-12.0)
[2018-09-25 14:40] LABS: Appearance Urine Clear (Clear); Bilirubin Urine Negative (Negative); Blood Urine Negative (Negative); Color Urine Dark Yellow; Glucose Urine UA Negative (Negative); Ketones Urine Negative (Negative); Leukocyte Esterase Urine Negative (Negative); Nitrite Urine Negative (Negative); Protein Urine Negative (Negative); Urobilinogen Urine Positive (Negative); pH Urine 5.5 (4.5-7.5)
--- NOTE | 2018-10-24 15:08 | History & Physical Report ---
Date of Service October 24, 2018 Assessment & Plan (1) Osteoarthritis of right hip: We will proceed with a right anterior total hip arthroplasty. Postoperatively he will be placed on aspirin for DVT prophylaxis and kept overnight in the hospital for postoperative medical management. He plans to use Cognea upon discharge. Present on Admission?: Yes History of Present Illness Chief Complaint: Primary osteoarthritis of the right hip Primary Care Provider: Najma Garcia MD Andrea is a pleasant 58-year-old male who is been dealing with increasing severe right hip pain. X-rays and clinical examination have been diagnostic for advanced osteoarthritis and a little dysplasia of his right hip. He needs a cane in the scooter to ambulate because of his hip. After failing extensive conservative treatment, he has elected proceed with a right total hip arthroplasty. Allergies Allergy/AdvReac Type Severity Reaction Status Date / Time No Known Allergies Allergy Verified 09/11/18 11:31 Home Medications Home Medications Medication Instructions Recorded Confirmed Type Xifaxan 550 mg PO BID 11/04/17 09/11/18 History cyanocobalamin (vitamin B-12) 100 mcg PO Q OTHER DAY 11/04/17 09/11/18 History [Vitamin B-12] folic acid 1 mg PO QAM 11/04/17 09/11/18 History furosemide [Lasix] 40 mg PO BID 11/04/17 09/11/18 History lactulose 10 g PO DAILY PRN 11/04/17 09/11/18 History meclizine 25 mg PO TID PRN 11/04/17 09/11/18 History omeprazole 40 mg PO QAM 11/04/17 09/11/18 History spironolactone 100 mg PO BID 11/04/17 09/11/18 History thiamine HCl (vitamin B1) [Vitamin 100 mg PO QAM 11/04/17 09/11/18 History B-1] valacyclovir [Valtrex] 1,000 mg PO QAM 11/04/17 09/11/18 History fluticasone propionate 2 spray INTRANASAL DAILY PRN 04/11/18 09/11/18 History ondansetron HCl [Zofran] 4 mg PO Q6H PRN 04/11/18 09/11/18 History albuterol sulfate [Ventolin HFA] 2 puff INHALATION Q4 PRN 04/30/18 09/11/18 History duloxetine 40 mg PO QPM 04/30/18 09/11/18 History potassium chloride 20 meq PO DAILY PRN 04/30/18 09/11/18 History amitriptyline 10 mg PO HS 09/11/18 09/11/18 History Past Med/Surg History Medical History Anxiety Chronic back pain Depression Hearing deficit History of alcohol abuse History of anemia History of cirrhosis of liver D/T ALCOHOL - LAST ALCOHOL 5 YR AGO History of colon polyps Hx of ascites Hx of encephalopathy HEAPTIC Hx of esophageal varices Hx of gynecomastia Hx of herpes genitalis Hx of thrombocytopenia Hypertension Osteoarthritis Vertigo Surgical History History of colonoscopy History of esophagogastroduodenoscopy (EGD) History of tooth extraction all teeth removed Hx of decompression of ulnar nerve RIGHT Family History Father Family history of diabetes mellitus Other No family history of adverse response to anesthesia No pertinent family history Social History Preferred Language: Polish Communication Ability: Effective Contribution Solicitor Required: No Beliefs That Will Affect Care: None Current Living Situation: Alone Current Living Situation Comment: [facility] s/o Feels Safe at Home: Yes Smoking Status: Former smoker Cigarettes Per Day: 1ppd x 2 years ; Second Hand Exposure: Yes (REGULAR BASIS) ; Hx Alcohol Use: Yes Alcohol type: beer Alcohol Intake Frequency Comment: history of alcoholism, quit 4+ years ago Hx Substance Use: No Review of Systems All systems reviewed & are unremarkable except as noted in HPI & below Physical Exam Constitutional: WD/WN, vitals as above Eyes: PERRL, conjunctivae normal, anicteric sclerae ENMT: external ear and nose normal, oropharynx normal Neck: trachea midline, no thyromegaly Respiratory: normal respiratory effort Cardiovascular: RRR, no murmur, no edema Gastrointestinal (Abdomen): normal bowel sounds, soft, nontender, no hepatosplenomegaly Musculoskeletal: Physical examination of the right hip reveals decreased range of motion with flexion, internal and external rotation. There is significant groin pain with forced internal rotation of the hip his leg lengths are essentially equal. Psychiatric: A+Ox3, euthymic affect Results & Data Diagnostic Findings Radiographs of the right hip and pelvis demonstrate advanced osteoarthritis with joint space narrowing osteophyte formation and [id number] articulation.
[~2018-10-25 07:32] MED LIST changes: +ACETAMINOPHEN 500 MG TAB PO SCH; +BUPIVACAINE 0.5 % 5 MG/1 ML PF 10ML VIAL ONE; +CEFAZOLIN 2000MG 2,000 MG/15 ML SYR IV SCH; -CYAN100T6 PO; -DICL1GEL12 TOP; -FLUT0.15 NAE; -FOLI800T17 PO; -FRS/40 PO; +GABAPENTIN 600 MG DOSE PO SCH; -LACT10SO3 PO; +LR 500ML BOLUS, THEN 15ML/HR IV SCH; +LR 60ML/HR IV SCH; -MECL1TAB42 PO; -ONDA4TAB46 PO; -RIFA550T2 PO; +ROPIVACAINE 0.5% HCL/PF 150 MG, BUPIVACAINE 0.5% MPF 30 ML, EPINEPHrine 30MG/30ML (OR U... INFIL SCH; +SODIUM CHLORIDE 0.9% 250 ML IV PRN; -SPIR100T PO; -THIA100T10 PO; +TRANEXAMIC ACID 1,000 MG **IV Intra-op IV SCH; +TRANEXAMIC ACID 1,000 MG **IV Pre-op IV SCH; -VALA500T60 PO; -VNTHFA/IN INH
--- NOTE | 2018-10-25 08:27 | History & Physical Bridge Note ---
Date of Service October 25, 2018 History & Physical Bridge Note I have examined the patient, reviewed the History & Physical and in the interval since the performance of the History & Physical I have noted the following changes of clinical significance: no changes noted
[2018-10-25 08:29] LABS: Hematocrit (blood only) 37.2 % (42-52); Hemoglobin 13.2 g/dL (14.0-18.0); Mean Corpuscular Hemoglobin 35.1 pg (25-34); Mean Corpuscular Volume 98.9 fL (80-100); RDW Coefficient of Variation 13.4 % (11.5-14.5); RDW Standard Deviation 48.4 fL (36.4-46.3); Red Blood Count 3.76 M/uL (4.7-6.1); White Blood Count 3.38 K/uL (4.8-10.8)
[2018-10-25 08:40] LABS: INR 1.2 (0.9-1.1); Partial Thromboplastin Time 25.9 Seconds (21.0-31.0)
[2018-10-25 08:42] LABS: Mean Corpuscular Hgb Conc 35.5 g/dL (32-36); Mean Platelet Volume 11.4 fL (7.4-10.4); Platelet Count 50 K/uL (130-400)
[2018-10-25] MEDS ORDERED: MIDAZOLAM HCL 1 MG/ML 2ML VIAL ONE (08:50)
[2018-10-25] MEDS ORDERED: ONDANSETRON INJ 2 MG/ML 2 ML VIAL ONE (08:50)
[2018-10-25] MEDS ORDERED: PROPOFOL IV EMULSION 10 MG/ML 20 ML VIAL IV ONE (08:50)
[2018-10-25] MEDS ORDERED: fentaNYL citrate 100 MCG/2 ML VIAL ONE (08:50)
[2018-10-25] MEDS ORDERED: CISATRACURIUM BESYLATE IV SOLN 2 MG/ML 10 ML VIAL IV ONE (08:50)
[2018-10-25] MEDS ORDERED: LIDOCAINE HCL 2% 2 ML VIAL/AMP(20MG/ML) INFIL ONE (08:50)
[2018-10-25 09:08] LABS: Basophils # (auto) 0.03 K/uL (0-0.2); Basophils % (auto) 0.9 %; Eosinophils # (auto) 0.08 K/uL (0-0.5); Eosinophils % (auto) 2.4 %; Giant Platelets 1+; Lymphocytes # (auto) 0.94 K/uL (1.2-3.4); Lymphocytes % (auto) 27.8 %; Monocytes # (auto) 0.47 K/uL (0.11-0.59); Monocytes % (auto) 13.9 %; Neutrophils # (auto) 1.86 K/uL (1.4-6.5)
[2018-10-25] MEDS ORDERED: HYDROmorphone INJ 1 MG/ML SYRINGE IV PRN (09:27)
[2018-10-25] MEDS ORDERED: ONDANSETRON INJ 2 MG/ML 2 ML VIAL IV PRN ×2 (09:27→13:11)
[2018-10-25] MEDS ORDERED: ePHEDrine sulfate 50 MG/ML AMP IV PRN (09:27)
[2018-10-25] MEDS ORDERED: ATROPINE SULFATE 0.1 MG/ML 10ML SYR IV PRN (09:27)
[2018-10-25] MEDS ORDERED: ORTHO JOINT ANESTHETIC ONE (10:00)
[2018-10-25] MEDS ORDERED: HYDROmorphone INJ 2 MG/ML SYR/VIAL ONE (10:21)
[2018-10-25] MEDS ORDERED: ALBUMIN HUMAN 5% 12.5 GM/250 ML VIAL IV ONE (10:53)
--- NOTE | 2018-10-25 11:32 | Operative Report ---
Post Operative Report Pre & Post Diagnosis Operation Date: 10/25/18 10:20 Pre-Op Diagnosis: RIGHT HIP DEGENERATIVE JOINT DISEASE Post-Op Diagnosis: RIGHT HIP DEGENERATIVE JOINT DISEASE Procedure Operation Date: 10/25/18 10:20 Actual Procedures p Right Anterior Total Hip Arthroplasty(Right) - Quinn Allen DO Surgeon Quinn Allen DO Leader Assembler Quinn Tsai PAC Estimated Blood Loss 800 Findings Consistent with Post-Op Diagnosis Specimens Right femoral head Complications none Disposition Disposition: Recovery Room Indications Amara is a pleasant 58-year-old male with a history of cirrhosis of the liver from alcoholism and thrombocytopenia. Unfortunately he is been dealing with severe right hip pain. X-rays and clinical examination were diagnostic for osteoarthritis of the right hip. It is affecting his quality of life. He needs a cane and a scooter to get around. After extensive discussions in the office. He elected proceed with a right total hip arthroplasty. Description of Procedure Implants used Biomet Taperloc total hip arthroplasty system with a size 10 high offset Taperloc stem, a 56 mm G7 cup with a 25mm screw, an E1 polyethylene liner, a 40 mm ceramic head with a -3 neck. Patient arrived at the hospital for the above procedure. They were seen in the preoperative holding area and the operative extremity was identified and signed. They were given a spinal anesthetic. They were given a preoperative antibiotic and TXA. They were taken back To the operating room and laid on the table in the supine position. The leg was brought out through a Puristst leg positioner. The hip was then prepped and draped in sterile fashion. A timeout was done and the patient in upper extremities properly identified. An anterior approach was used. Dissection was taken down through the fascia and the tensor muscle belly was retracted laterally and the rectus was retracted medially. The circumflex vessels were identified and ligated. The capsule was then incised and tagged for later repair. The femoral neck was then cut and the femoral head was removed. The acetabulum was exposed. Time was spent doing a complete circumferential labral release. Sequential reaming of the acetabulum up to a size 55 reamer was done. Final reamings were done under fluoroscopy to ensure appropriate version. A Biomet 56 mm G7 cup was then impacted into place. A single 25 mm screw was placed. The E1 polyethylene liner was then snapped into place. Surrounding soft tissues were then injected with 100 cc of an orthopedic pain control cocktail. The proximal femur was then exposed. Sequential broaching up to a size 10 broach was done. Off that broach a size 40 head with a -3 neck was trialed. The hip was reduced and fluoroscopic images showed anatomic alignment of the implants in acceptable length. The broach was removed. The final size 10 high offset Taperloc stem was then impacted into place. A ceramic 40 mm head with a -3 neck was then impacted into place in the hip was reduced. Final fluoroscopic images showed anatomic reduction of the hip. The capsule was then closed with #1 Vicryl suture. A dilute betadyne lavage was then done for 3 minutes. The joint was then irrigated with normal saline solution. The fascia was closed with #1 PDS suture. Skin was closed with 2-0 Vicryl, tegan, and a Lalita VAC dressing. The patient was then transferred to a hospital bed and taken to the post anesthesia care unit in stable condition. They tolerated the procedure well. I attest to the content of the Intraoperative Record and any orders documented therein. Any exceptions are noted below.
--- NOTE | 2018-10-25 12:15 | Fluoroscopy Report ---
FL hip RT 1V CLINICAL HISTORY: Intraoperative study during right hip arthroplasty COMPARISON STUDY: X-ray study performed July 2018 FLUOROSCOPY TIME: 32 seconds. NUMBER OF FLUOROSCOPIC IMAGES: 2 FINDINGS: Image #1 demonstrates a prosthetic acetabular cup. The femoral head has been resected image #2 demonstrates a total right hip arthroplasty. There is no dislocation. IMPRESSION: Intraoperative fluoroscopic spot images demonstrating a total right hip arthroplasty. Electronically signed by: Layo Murillo M.D. 10/25/2018 12:14 PM
[2018-10-25] MEDS: fentaNYL citrate 100 MCG/2 ML VIAL IV PRN ×2 (12:20→12:26)
--- NOTE | 2018-10-25 12:30 | XRay Report ---
XR hip 1V RT w pelvis CLINICAL HISTORY: IN PACU - A/P PELVIS and LATERAL HIP COMPARISON: None. DISCUSSION: Anatomic alignment posttotal right hip arthroplasty. Could contact between prosthetic and underlying bone. Expected soft tissue postoperative change. Note is made of dysplastic changes left hip. IMPRESSION: Anatomic alignment posttotal right hip arthroplasty. note is made of dysplastic changes l eft hip. The above report was generated using voice recognition software. It may contain grammatical, syntax or spelling errors. Electronically signed by: Samir Garcia M.D. 10/25/2018 12:29 PM
[2018-10-25 12:32] LABS: iSTAT Creatinine 0.8 mg/dl (0.6-1.3); iSTAT Hemoglobin 9.9 g/dl (14.0-18.0); iSTAT Ionized Calcium 1.14 mmol/l (1.12-1.32); iSTAT Potassium 3.8 mEq/L (3.3-5.0)
[2018-10-25] MEDS ORDERED: METOCLOPRAMIDE HCL INJ 5 MG/ML 2 ML VIAL IV PRN (13:11)
[2018-10-25] MEDS ORDERED: NALOXONE HCL 0.4 MG/1 ML VIAL/CARP IV PRN (13:11)
[2018-10-25] MEDS ORDERED: BISACODYL 10 MG SUPP PR PRN (13:11)
[2018-10-25] MEDS ORDERED: ALBUTEROL HFA 8 GM INHALER INH PRN (13:11)
[2018-10-25] MEDS ORDERED: FLUTICASONE PROPIONATE NA SPR 16 GM BTL PRN (13:11)
[2018-10-25] MEDS ORDERED: HYDROmorphone INJ 0.5 MG/0.5 ML SYR IV PRN (13:11)
[2018-10-25] MEDS ORDERED: MAGNESIUM HYDROXIDE SUSP 30 ML UDC PO PRN (13:11)
[2018-10-25] MEDS ORDERED: POTASSIUM CHLORIDE PWD 20 MEQ PACK PO PRN (13:11)
[2018-10-25] MEDS ORDERED: MECLIZINE HCL 25 MG TAB PO PRN (13:11)
[2018-10-25] MEDS ORDERED: SODIUM CHLORIDE 0.9% 1000ML 1,000 ML IV SCH (13:30)
--- NOTE | 2018-10-25 13:50 | Anesthesiology Progress Note ---
Date of Service October 25, 2018 Anesthesia Post Procedure Vital Signs Vital Signs: Temp Pulse Pulse Resp BP Pulse Ox 10/25/18 13:22 97.3 F L 94 H 18 116/69 100 10/25/18 12:55 97.5 F L 98 H 16 120/68 100 10/25/18 12:45 97.5 F L 98 H 14 122/70 98 10/25/18 12:35 100 H 12 127/68 98 10/25/18 12:25 105 H 14 118/78 100 10/25/18 12:15 106 H 13 128/78 100 10/25/18 12:05 97.9 F 116 H 15 142/80 H 100 10/25/18 08:22 98.4 F 76 17 124/76 98 Pain Intensity Right Hip: Pain Intensity: 10 Lower Back: Pain Intensity: 4 Transfer of Care Handoff Completed per policy Notes Mental Status: alert / awake / arousable and participated in evaluation Patient Amnestic to Procedure: Yes Nausea / Vomiting: adequately controlled Pain: adequately controlled Airway Patency, RR, SpO2: stable & adequate BP & HR: stable & adequate Hydration State: stable & adequate Anesthetic Complications: no major complications apparent and Pt Satisfied with anesthetic care
[2018-10-25] MEDS: KETOROLAC 30 MG/ML VIAL IV SCH ×2 (14:08→19:26)
[2018-10-25] MEDS: ACETAMINOPHEN 500 MG TAB PO SCH ×3 (14:09→21:13)
[2018-10-25] MEDS: FUROSEMIDE 40 MG TAB PO SCH (16:14)
[2018-10-25] MEDS: SPIRONOLACTONE 100 MG TAB PO SCH (16:14)
[2018-10-25] MEDS: CEFAZOLIN 2000MG 2,000 MG/15 ML SYR IV SCH (17:21)
[2018-10-25] MEDS: DOCUSATE SODIUM 100 MG CAP PO SCH (20:13)
[2018-10-25] MEDS: DULOXETINE HCL 20 MG CAP PO SCH (20:13)
[2018-10-25] MEDS: ASPIRIN 81 MG ECTAB PO SCH (20:14)
[2018-10-25] MEDS: SENNA 8.6 MG TAB PO SCH (20:14)
[2018-10-25] MEDS: RIFAXIMIN 550 MG TABLET PO SCH (20:14)
[2018-10-25] MEDS: AMITRIPTYLINE HCL 10 MG TAB PO SCH (20:15)
[2018-10-26] MEDS: CEFAZOLIN 2000MG 2,000 MG/15 ML SYR IV SCH (02:18)
[2018-10-26] MEDS: KETOROLAC 30 MG/ML VIAL IV SCH ×4 (02:19→19:51)
[2018-10-26] MEDS: ACETAMINOPHEN 500 MG TAB PO SCH ×3 (05:55→21:12)
[2018-10-26 06:57] LABS: Hematocrit (blood only) 27.8 % (42-52); Hemoglobin 9.8 g/dL (14.0-18.0); Mean Corpuscular Hemoglobin 35.4 pg (25-34); Mean Corpuscular Hgb Conc 35.3 g/dL (32-36); Mean Corpuscular Volume 100.4 fL (80-100); Mean Platelet Volume 11.7 fL (7.4-10.4); Platelet Count 66 K/uL (130-400); RDW Coefficient of Variation 13.6 % (11.5-14.5); RDW Standard Deviation 48.7 fL (36.4-46.3); Red Blood Count 2.77 M/uL (4.7-6.1); White Blood Count 11.92 K/uL (4.8-10.8)
[2018-10-26 07:13] LABS: Basophils # (auto) 0.01 K/uL (0-0.2); Basophils % (auto) 0.1 %; Calcium 8.8 mg/dl (8.5-10.1); Est GFR (African American) 70.4; Est GFR (Non-African American) 60.7; Immature Granulocytes # (auto) 0.02 K/uL (0.00-0.02); Immature Granulocytes % (auto) 0.2 %; Lymphocytes # (auto) 0.73 K/uL (1.2-3.4); Lymphocytes % (auto) 6.1 %; Monocytes # (auto) 1.28 K/uL (0.11-0.59); Monocytes % (auto) 10.7 %; Neutrophils # (auto) 9.88 K/uL (1.4-6.5); Neutrophils % (auto) 82.9 %; Potassium 4.4 mmol/L (3.5-5.1)
--- NOTE | 2018-10-26 08:32 | Orthopedic Progress Note ---
Date of Service October 26, 2018 Assessment & Plan (1) Osteoarthritis of right hip: Overall he is doing fairly well. He is on aspirin for DVT prophylaxis. His blood counts look okay today but we will get another complete blood count tomorrow. He is feeling well. He will be seen by physical therapy today for ambulation and range of motion exercises. It is a little bit unclear right now if he is a better candidate for rehab or returning to home. He states that if he did return to home that he will have full-time nursing care at home. Case management will look into this. We will keep him in the hospital today and plan discharge to home possibly tomorrow, or to rehab tomorrow or Sunday. Present on Admission?: Yes Subjective Ed was seen and examined at bedside this morning. Overall is doing fairly well. He is a little bit of soreness in his right hip but is not too bad. He is happy with his progress to this point and has no complaints. Physical Exam Musculoskeletal: On physical examination of the right hip, the Lalita VAC dressing is to suction. His leg lengths are equal. He has active dorsiflexion and plantarflexion of the right ankle. Results & Data Vital Signs (Past 12 Hours) Vital Signs Temp Pulse Resp BP Pulse Ox 10/26/18 07:54 36.9 C 89 16 105/61 93 10/26/18 03:12 36.7 C 101 H 16 97/63 L 96 10/25/18 23:06 36.3 C L 96 H 16 104/71 100 10/25/18 21:09 36.3 C L 89 16 95/59 L 95 Laboratory Results H & H 09/25/18 10/25/18 10/26/18 Range/Units 13:34 08:21 06:20 Hgb 14.8 13.2 L 9.8 L D (14.0-18.0) g/dL Hct 41.7 L 37.2 L 27.8 L (42-52) % Coagulation 09/25/18 10/25/18 Range/Units 13:34 08:21 INR 1.2 H 1.2 H (0.9-1.1) Diagnostic Findings Postoperative x-rays of the right hip show the prosthesis to be in anatomic alignment without any evidence of fracture, dislocation, or loosening. PG Care Time/CCT Total # of Minutes Spent Total Time Spent with Patient: Total time spent is greater than 50% in coordination of care (as documented) at patient's floor/unit and/or counseling patient:
[2018-10-26] MEDS: SPIRONOLACTONE 100 MG TAB PO SCH ×2 (08:46→17:54)
[2018-10-26] MEDS: ASPIRIN 81 MG ECTAB PO SCH ×2 (08:46→21:12)
[2018-10-26] MEDS: DOCUSATE SODIUM 100 MG CAP PO SCH ×2 (08:46→21:11)
[2018-10-26] MEDS: FUROSEMIDE 40 MG TAB PO SCH ×2 (08:46→17:54)
[2018-10-26] MEDS: FOLIC ACID 1 MG TAB PO SCH (08:46)
[2018-10-26] MEDS: MULTIVITAMIN TAB PO SCH (08:47)
[2018-10-26] MEDS: VALACYCLOVIR HCL 500 MG TABLET PO SCH (08:47)
[2018-10-26] MEDS: RIFAXIMIN 550 MG TABLET PO SCH ×2 (08:47→21:11)
[2018-10-26] MEDS: PANTOprazole 40 MG TAB PO SCH (08:47)
[2018-10-26] MEDS: THIAMINE HCL 100 MG TAB PO SCH (08:47)
[2018-10-26] MEDS ORDERED: CYANOCOBALAMIN (VITAMIN B-12) 100 MCG TABLET PO SCH (09:00)
[2018-10-26] MEDS: OXYCODONE HCL IR 5 MG TAB (IMMEDIATE RELEASE) PO PRN (18:38)
[2018-10-26] MEDS: DULOXETINE HCL 20 MG CAP PO SCH (21:11)
[2018-10-26] MEDS: AMITRIPTYLINE HCL 10 MG TAB PO SCH (21:11)
[2018-10-26] MEDS: SENNA 8.6 MG TAB PO SCH (21:11)
[2018-10-27] MEDS: KETOROLAC 30 MG/ML VIAL IV SCH ×2 (02:26→08:09)
[2018-10-27] MEDS: ACETAMINOPHEN 500 MG TAB PO SCH ×3 (05:22→21:32)
[2018-10-27 05:34] LABS: Hematocrit (blood only) 24.2 % (42-52); Hemoglobin 8.6 g/dL (14.0-18.0); Mean Corpuscular Hemoglobin 35.4 pg (25-34); Mean Corpuscular Hgb Conc 35.5 g/dL (32-36); Mean Corpuscular Volume 99.6 fL (80-100); RDW Coefficient of Variation 13.8 % (11.5-14.5); RDW Standard Deviation 49.4 fL (36.4-46.3); Red Blood Count 2.43 M/uL (4.7-6.1); White Blood Count 7.83 K/uL (4.8-10.8)
[2018-10-27 05:43] LABS: Mean Platelet Volume 11.9 fL (7.4-10.4); Platelet Count 44 K/uL (130-400)
[2018-10-27 06:10] LABS: Basophils # (auto) 0.01 K/uL (0-0.2); Basophils % (auto) 0.1 %; Eosinophils # (auto) 0.01 K/uL (0-0.5); Eosinophils % (auto) 0.1 %; Immature Granulocytes # (auto) 0.01 K/uL (0.00-0.02); Immature Granulocytes % (auto) 0.1 %; Lymphocytes # (auto) 0.87 K/uL (1.2-3.4); Lymphocytes % (auto) 11.1 %; Monocytes # (auto) 1.07 K/uL (0.11-0.59); Monocytes % (auto) 13.7 %; Neutrophils # (auto) 5.86 K/uL (1.4-6.5); Neutrophils % (auto) 74.9 %
[2018-10-27] MEDS ORDERED: SODIUM CHLORIDE 0.9% 250 ML IV PRN (07:44)
[2018-10-27] MEDS: SPIRONOLACTONE 100 MG TAB PO SCH ×2 (08:34→16:55)
[2018-10-27] MEDS: FOLIC ACID 1 MG TAB PO SCH (08:35)
[2018-10-27] MEDS: DOCUSATE SODIUM 100 MG CAP PO SCH ×2 (08:35→21:30)
[2018-10-27] MEDS: PANTOprazole 40 MG TAB PO SCH (08:36)
[2018-10-27] MEDS: MULTIVITAMIN TAB PO SCH (08:36)
[2018-10-27] MEDS: FUROSEMIDE 40 MG TAB PO SCH ×2 (08:36→16:55)
[2018-10-27] MEDS: VALACYCLOVIR HCL 500 MG TABLET PO SCH (08:36)
[2018-10-27] MEDS: THIAMINE HCL 100 MG TAB PO SCH (08:37)
[2018-10-27] MEDS: RIFAXIMIN 550 MG TABLET PO SCH ×2 (08:37→21:31)
[2018-10-27] MEDS: ASPIRIN 81 MG ECTAB PO SCH ×2 (08:59→21:31)
--- NOTE | 2018-10-27 09:30 | Orthopedic Progress Note ---
Date of Service October 27, 2018 Assessment & Plan (1) Osteoarthritis of right hip: Overall he is doing okay. He will be seen by physical therapy again today for some ambulation. I am going to give him 2 units of packed red blood cells. His postoperative anemia was expected. He has cirrhosis of the liver and thrombocytopenia. I will also get an ultrasound of his right calf. He was complaining of some calf pain. I would be surprised if he has a DVT given his cirrhosis and thrombocytopenia. We will continue aspirin for DVT prophylaxis. [facility] if he is discharged home, however, I think he be a better candidate for rehab placement. Case management should see him today. If he is medically stable we can possibly get him to rehab tomorrow. Present on Admission?: Yes Subjective Ed was seen and examined at bedside this morning. Overall he is doing fairly well. He is having some soreness in his hip but is not too bad. He has been up and ambulating yesterday with physical therapy. He is relying on the walker. He feels a little bit weak and lightheaded today. He is concerned that he has only had one bowel movement. He has no other complaints. Physical Exam Musculoskeletal: On physical examination of the right hip, the Lalita VAC dressing is to suction. His leg lengths are equal. He is neurovascularly intact. He was complaining of some right calf pain. Results & Data Vital Signs (Past 12 Hours) Vital Signs Temp Pulse Pulse Resp BP BP Pulse Ox 10/27/18 08:46 36.8 C 79 18 97/60 L 98 10/27/18 08:31 36.5 C 86 18 104/62 10/27/18 08:28 36.9 C 79 18 103/60 95 10/27/18 08:12 36.5 C 66 20 105/62 98 10/27/18 06:57 36.8 C 76 18 116/59 L 96 10/26/18 23:34 36.7 C 66 16 92/56 L 95 Laboratory Results H & H 09/25/18 10/25/18 10/26/18 Range/Units 13:34 08:21 06:20 Hgb 14.8 13.2 L 9.8 L D (14.0-18.0) g/dL Hct 41.7 L 37.2 L 27.8 L (42-52) % 10/27/18 Range/Units 05:08 Hgb 8.6 L (14.0-18.0) g/dL Hct 24.2 L (42-52) % Coagulation 09/25/18 10/25/18 Range/Units 13:34 08:21 INR 1.2 H 1.2 H (0.9-1.1) PG Care Time/CCT Total # of Minutes Spent Total Time Spent with Patient: Total time spent is greater than 50% in coordination of care (as documented) at patient's floor/unit and/or counseling patient:
[2018-10-27] MEDS ORDERED: Nursing to Pharmacy Communication ONE (11:05)
--- NOTE | 2018-10-27 11:11 | Ultrasound Report ---
US venous doppler LE RT CLINICAL HISTORY: 58 years-old Male presenting with right calf pain and swelling. TECHNIQUE: Real-time grayscale and color and spectral Doppler ultrasound imaging of the veins of the right lower extremity was performed. Compression and augmentation were also utilized. COMPARISON: None. FINDINGS: RIGHT: Common femoral vein: Patent. Greater saphenous vein (superficial): Patent. Deep femoral vein: Patent. Femoral vein: Patent. Popliteal vein: Patent. Calf veins: Patent. Other: In the proximal lateral right thigh, there is a complex hypoechoic collection measuring 12.8 x 1.0 x 6.7 cm. This is in the region of the total right hip arthroplasty. This is superficial to the musculature and tracks along the superficial fascia. IMPRESSION: 1. No evidence of deep venous thrombosis. 2. Laminar collection in the region of the total hip arthroplasty tracking along the superficial fas irasema, possibly expected postsurgical fluid/seroma versus hematoma. Sterility cannot be confirmed. Electronically signed by: Lavon Church M.D. 10/27/2018 11:10 AM
[2018-10-27] MEDS ORDERED: CYANOCOBALAMIN (VITAMIN B-12) 100 MCG TABLET PO SCH (11:15)
[2018-10-27] MEDS: OXYCODONE HCL IR 5 MG TAB (IMMEDIATE RELEASE) PO PRN ×2 (13:48→21:34)
[2018-10-27] MEDS: DULOXETINE HCL 20 MG CAP PO SCH (21:30)
[2018-10-27] MEDS: AMITRIPTYLINE HCL 10 MG TAB PO SCH (21:30)
[2018-10-27] MEDS: SENNA 8.6 MG TAB PO SCH (21:31)
[2018-10-28] MEDS: ACETAMINOPHEN 500 MG TAB PO SCH ×2 (06:21→14:23)
--- NOTE | 2018-10-28 06:38 | Orthopedic Progress Note ---
Date of Service October 28, 2018 Assessment & Plan (1) Osteoarthritis of right hip: Overall is doing well. He is feeling better after his blood transfusion yesterday. He will be seen by physical therapy today for ambulation and range of motion exercises. The ultrasound of his right lower extremity was negative for DVT. I ordered a repeat H&H this morning which should be back briefly. We will hopefully get him discharged to rehab later today. He is on aspirin for DVT prophylaxis. He will follow-up with orthopedics in 2 weeks. Present on Admission?: Yes Subjective Ed was seen and examined at bedside this morning. Overall he is doing very well. He suffered a little bit of soreness in his hip but is not too bad. He is been participating well with physical therapy. He received 2 units of packed red blood cells yesterday and is feeling better. He is awaiting discharge to rehab. Physical Exam Musculoskeletal: Physical examination of the right hip, the Lalita VAC dressing is to suction. His leg lengths are equal. He has active dorsiflexion and plantarflexion of his right ankle. Sensation is intact throughout. Results & Data Vital Signs (Past 12 Hours) Vital Signs Temp Pulse Resp BP Pulse Ox 10/27/18 22:51 36.5 C 62 16 95/55 L 95 PG Care Time/CCT Total # of Minutes Spent Total Time Spent with Patient: Total time spent is greater than 50% in coordination of care (as documented) at patient's floor/unit and/or counseling patient:
[2018-10-28 07:14] LABS: Hemoglobin 11.5 g/dL (14.0-18.0)
[2018-10-28] MEDS: SPIRONOLACTONE 100 MG TAB PO SCH ×2 (08:26→17:50)
[2018-10-28] MEDS: ASPIRIN 81 MG ECTAB PO SCH (08:26)
[2018-10-28] MEDS: DOCUSATE SODIUM 100 MG CAP PO SCH (08:26)
[2018-10-28] MEDS: FOLIC ACID 1 MG TAB PO SCH (08:27)
[2018-10-28] MEDS: PANTOprazole 40 MG TAB PO SCH (08:27)
[2018-10-28] MEDS: FUROSEMIDE 40 MG TAB PO SCH ×2 (08:27→17:50)
[2018-10-28] MEDS: THIAMINE HCL 100 MG TAB PO SCH (08:27)
[2018-10-28] MEDS: MULTIVITAMIN TAB PO SCH (08:27)
[2018-10-28] MEDS: RIFAXIMIN 550 MG TABLET PO SCH (08:28)
[2018-10-28] MEDS ORDERED: CYANOCOBALAMIN (VITAMIN B-12) 100 MCG TABLET PO SCH (09:00)
[2018-10-28] MEDS: OXYCODONE HCL IR 5 MG TAB (IMMEDIATE RELEASE) PO PRN (15:15)
== END 2018-10-28 18:50 | disposition home health service (06) | DRG 470 ==
LOC: ASU 07:32 → 3E 12:08
DX: M16.11 Unilateral primary osteoarthritis, right hip; Z87.891 Personal history of nicotine dependence; M79.662 Pain in left lower leg; Z79.899 Other long term (current) drug therapy

== ENCOUNTER 2018-10-31 11:52 | Observation (INO) ==
[2018-10-31] MEDS ORDERED: SODIUM CHLORIDE 0.9% 1000ML 1,000 ML IV SCH ×2 (12:45→19:45)
[2018-10-31] MEDS ORDERED: SODIUM CHLORIDE 0.9% 500 ML IV SCH (12:45)
--- NOTE | 2018-10-31 12:54 | XRay Report ---
SINGLE VIEW CHEST CLINICAL HISTORY: Generalized weakness. FINDINGS: An AP, portable, upright chest radiograph is compared to study dated 11/04/2017. The cardiom ediastinal silhouette is unremarkable. The lungs and pleural spaces are clear. No pneumothorax is see n. The bony thorax is grossly intact. IMPRESSION: No active disease in the chest. Electronically signed by: Jamil Freedman M.D. 10/31/2018 12:52 PM
[2018-10-31 13:30] LABS: INR 1.2 (0.9-1.1); Prothrombin Time 11.9 Seconds (9.0-12.0)
[2018-10-31 13:35] LABS: Albumin Level 2.8 gm/dl (3.4-5.0); Calcium 8.1 mg/dl (8.5-10.1); Creatinine Clr Calc Pharmacy 88.9 ml/min; Est GFR (African American) 101.9; Est GFR (Non-African American) 87.9; Potassium 3.8 mmol/L (3.5-5.1)
[2018-10-31 13:37] LABS: Albumin Globulin Ratio 0.9 (0.9-2); Bilirubin,Total 1.7 mg/dl (0.2-1); Total Protein 5.8 gm/dl (6.4-8.2)
--- NOTE | 2018-10-31 14:19 | Ultrasound Report ---
RIGHT LOWER EXTREMITY VENOUS DOPPLER HISTORY: Right leg swelling. COMPARISON STUDY: None. FINDINGS: There is normal compressibility, flow, and augmentation within the right lower extremity de ep venous system. IMPRESSION: No DVT within the right lower extremity Electronically signed by: Ángel Wilson M.D. 10/31/2018 2:18 PM
[2018-10-31 15:10] LABS: Hematocrit (blood only) 31.1 % (42-52); Hemoglobin 10.8 g/dL (14.0-18.0); Mean Corpuscular Hemoglobin 33.8 pg (25-34); Mean Corpuscular Hgb Conc 34.7 g/dL (32-36); Mean Corpuscular Volume 97.2 fL (80-100); Mean Platelet Volume 11.4 fL (7.4-10.4); Platelet Count 78 K/uL (130-400); RDW Coefficient of Variation 17.1 % (11.5-14.5); White Blood Count 4.17 K/uL (4.8-10.8)
[2018-10-31 15:11] LABS: Basophils # (auto) 0.01 K/uL (0-0.2); Basophils % (auto) 0.2 %; Eosinophils # (auto) 0.15 K/uL (0-0.5); Eosinophils % (auto) 3.6 %; Immature Granulocytes # (auto) 0.01 K/uL (0.00-0.02); Immature Granulocytes % (auto) 0.2 %; Lymphocytes # (auto) 0.94 K/uL (1.2-3.4); Lymphocytes % (auto) 22.5 %; Monocytes # (auto) 0.59 K/uL (0.11-0.59); Monocytes % (auto) 14.1 %; Neutrophils # (auto) 2.47 K/uL (1.4-6.5); Neutrophils % (auto) 59.4 %
--- NOTE | 2018-10-31 15:35 | XRay Report ---
XR hip RT min 2V CLINICAL HISTORY: 58 years-old Male presenting with ELI. TECHNIQUE: Frontal and frog-leg lateral views of the right hip were obtained. COMPARISON: 10/25/2018. FINDINGS: Postsurgical changes of total right hip arthroplasty. No malalignment or periprosthetic fracture. Ove rlying skin tegan and wound VAC in place. Resolution of prior soft tissue emphysema. The bony pelvi s is intact and the visualized portion. IMPRESSION: Expected postsurgical appearance status post total right hip arthroplasty. Electronically signed by: Lavon Church M.D. 10/31/2018 3:34 PM
--- NOTE | 2018-10-31 16:21 | Emergency Department Note ---
Entered by Ramírez Gatica acting as a scribe for History of Present Illness General Chief complaint: Swelling/Edema to Extremity Source: patient History of Present Illness Onset (ago): hour(s) (this morning) Location: lower extremity and right Severity: moderate Pain Consistency: + constant Maximum Pain Intensity: 6 Quality: + other (swelling) Associated symptoms: + denies other symptoms (abdominal pain) and + other; no chest pain and no shortness of breath The patient is a 58 y/o male who presents to the ED w/ CC of constant, moderate, swelling to his right lower extremity beginning this morning. The patient states he woke up this morning and his right lower extremity was hard, swollen, and hot. He reports he had a hip replacement on Sunday by Dr. Allen. The patient notes he has a WoundVac. He states he cannot walk because doing so causes too much discomfort and pain. The patient reports a history of cirrhosis of the liver secondary to alcoholism, and he has been sober for five years. He notes he is on Lasix. The patient denies abdominal pain, chest pain, and any increased shortness of breath. Home Medications Home Medications Medication Instructions Recorded Confirmed Type Xifaxan 550 mg PO BID 11/04/17 10/31/18 History cyanocobalamin (vitamin B-12) 100 mcg PO Q2D 11/04/17 10/31/18 History [Vitamin B-12] folic acid 1 mg PO QAM 11/04/17 10/31/18 History furosemide [Lasix] 40 mg PO BID 11/04/17 10/31/18 History lactulose 10 g PO DAILY PRN 11/04/17 10/31/18 History meclizine 25 mg PO TID PRN 11/04/17 10/31/18 History omeprazole 40 mg PO QAM 11/04/17 10/31/18 History spironolactone 100 mg PO BID 11/04/17 10/31/18 History thiamine HCl (vitamin B1) [Vitamin 100 mg PO QAM 11/04/17 10/31/18 History B-1] valacyclovir [Valtrex] 1,000 mg PO HS 11/04/17 10/31/18 History fluticasone propionate 2 spray INTRANASAL DAILY PRN 04/11/18 10/31/18 History ondansetron HCl [Zofran] 4 mg PO Q6H PRN 04/11/18 10/31/18 History albuterol sulfate [Ventolin HFA] 2 puff INHALATION Q4 PRN 04/30/18 10/31/18 History duloxetine 40 mg PO HS 04/30/18 10/31/18 History potassium chloride 20 meq PO Q2D PRN 04/30/18 10/31/18 History amitriptyline 10 mg PO HS 09/11/18 10/31/18 History aspirin [Ecotrin Low Strength] 81 mg PO BID #84 tab 10/27/18 10/31/18 Rx oxycodone 5 mg PO Q4H PRN #30 tab 11/02/18 Rx Allergies Allergy/AdvReac Type Severity Reaction Status Date / Time No Known Allergies Allergy Verified 10/25/18 08:09 Past Med/Surg History Medical History History of hepatitis C (Acute) Anxiety Chronic back pain Depression Hearing deficit History of alcohol abuse History of anemia History of cirrhosis of liver D/T ALCOHOL - LAST ALCOHOL 5 YR AGO History of colon polyps Hx of ascites Hx of encephalopathy HEAPTIC Hx of esophageal varices Hx of gynecomastia Hx of herpes genitalis Hx of thrombocytopenia Hypertension Osteoarthritis Vertigo Surgical History History of colonoscopy History of esophagogastroduodenoscopy (EGD) History of tooth extraction all teeth removed Hx of decompression of ulnar nerve RIGHT Family History Father Family history of diabetes mellitus Other No family history of adverse response to anesthesia No pertinent family history Social History Preferred Language: Iranian Communication Ability: Effective Poultry 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 and A total of 10 systems reviewed and were otherwise negative Physical Exam Vital Signs Vital Signs - 24 hr 09/26/19 12:09 10/31/18 12:18 10/31/18 12:26 Temperature 36.2 C L Temperature Source Oral Sepsis Recent Fever Within 48 Hours Yes Sepsis New/Unexplained Change in Mental Status No Sepsis Action Taken by Nursing Physician Notified Pulse Rate 77 79 78 Pulse Rate from SpO2 Sensor 78 77 Respiratory Rate 19 19 14 Respiratory Effort / Characteristics Non-Labored Spontaneous Respiratory Depth Normal Respiratory Pattern Regular Blood Pressure 130/72 130/72 Blood Pressure Mean 91 91 Pulse Oximetry 99 98 97 Oxygen Delivery Method Room Air 10/31/18 12:30 10/31/18 13:00 10/31/18 13:30 Temperature Temperature Source Sepsis Recent Fever Within 48 Hours Sepsis New/Unexplained Change in Mental Status Sepsis Action Taken by Nursing Pulse Rate 78 69 74 Pulse Rate from SpO2 Sensor 78 70 74 Respiratory Rate 24 19 13 Respiratory Effort / Characteristics Respiratory Depth Respiratory Pattern Blood Pressure 118/70 Blood Pressure Mean 86 Pulse Oximetry 99 96 96 Oxygen Delivery Method 10/31/18 14:29 10/31/18 14:30 10/31/18 16:46 Temperature Temperature Source Sepsis Recent Fever Within 48 Hours Sepsis New/Unexplained Change in Mental Status Sepsis Action Taken by Nursing Pulse Rate 74 74 Pulse Rate from SpO2 Sensor 71 78 76 Respiratory Rate 18 20 13 Respiratory Effort / Characteristics Respiratory Depth Respiratory Pattern Blood Pressure 107/52 L 119/58 L Blood Pressure Mean 70 78 Pulse Oximetry 98 96 97 Oxygen Delivery Method 10/31/18 16:47 10/31/18 17:00 10/31/18 17:30 Temperature Temperature Source Sepsis Recent Fever Within 48 Hours Sepsis New/Unexplained Change in Mental Status Sepsis Action Taken by Nursing Pulse Rate 68 73 69 Pulse Rate from SpO2 Sensor 70 73 70 Respiratory Rate 18 15 16 Respiratory Effort / Characteristics Respiratory Depth Respiratory Pattern Blood Pressure 97/61 L 101/57 L Blood Pressure Mean 73 71 Pulse Oximetry 98 96 97 Oxygen Delivery Method 10/31/18 18:00 10/31/18 18:30 10/31/18 19:00 Temperature Temperature Source Sepsis Recent Fever Within 48 Hours Sepsis New/Unexplained Change in Mental Status Sepsis Action Taken by Nursing Pulse Rate 78 69 68 Pulse Rate from SpO2 Sensor 79 69 Respiratory Rate 14 13 12 Respiratory Effort / Characteristics Respiratory Depth Respiratory Pattern Blood Pressure 102/59 L 112/57 L Blood Pressure Mean 73 75 Pulse Oximetry 96 95 Oxygen Delivery Method 10/31/18 19:01 Temperature Temperature Source Sepsis Recent Fever Within 48 Hours Sepsis New/Unexplained Change in Mental Status Sepsis Action Taken by Nursing Pulse Rate 64 Pulse Rate from SpO2 Sensor Respiratory Rate 16 Respiratory Effort / Characteristics Respiratory Depth Respiratory Pattern Blood Pressure 128/64 Blood Pressure Mean 85 Pulse Oximetry Oxygen Delivery Method Vital signs reviewed. General: Chronically ill appearing, in no significant distress. HEENT: No scleral icterus, PERRLA, neck supple. Atraumatic. Somewhat pale appearance to the conjunctiva. Cardiovascular: Regular rate and rhythm, no extra sounds. Pulmonary: Clear to auscultation bilaterally, normal work of breathing. Abdomen: Soft, nontender, nondistended, positive bowel sounds. Musculoskeletal: Atraumatic. Anterior hip has WoundVac with surrounding ecchymotic changes with 3+ pitting edema to the RLE. Neurologic: Patient awake alert and oriented x 3. Skin: Warm, dry, RLE skin changes as above Course 1224: Past medical records reviewed. The patient was evaluated in room C10. A complete history and physical examination was performed. 1501: I discussed the patient's case with Dr. Allen, Orthopedics, after he evaluated the patient. He recommends the patient receive inpatient rehab because he is unable to ambulate and continue post-operative care independently. 1519: Upon reevaluation, the patient is resting comfortably. I discussed labora tory and radiographic results with him. He verbalized agreement of the treatment plan. Case management will find a rehabilitation facility for the patient. 1809: I rediscussed with Dr. Allen. He will keep him for observation until rehabilitation services can be found. Administered Medications Discontinued Medications Amitriptyline HCl (Elavil) 10 mg PO HS AMBER Stop: 11/30/18 20:59 Last Admin: 11/01/18 20:51 Dose: 10 mg Documented by: [id number] Admin: 10/31/18 20:51 Dose: 10 mg Documented by: [id number] Aspirin (Ecotrin Ectab) 81 mg PO BID AMBER Stop: 11/30/18 20:59 Last Admin: 11/02/18 09:29 Dose: 81 mg Documented by: [id number] Admin: 11/01/18 20:53 Dose: 81 mg Documented by: [id number] Admin: 11/01/18 09:12 Dose: 81 mg Documented by: [id number] Admin: 10/31/18 20:49 Dose: 81 mg Documented by: [id number] Cyanocobalamin (Vitamin B-12) 100 mcg PO Q2D@0900 AMBER Stop: 12/02/18 08:59 Last Admin: 11/02/18 09:29 Dose: 100 mcg Documented by: [id number] Docusate Sodium (Colace) 100 mg PO BID AMBER Stop: 11/30/18 20:59 Last Admin: 11/02/18 09:29 Dose: Not Given Documented by: [id number] Admin: 11/01/18 18:42 Dose: Not Given Documented by: [id number] Admin: 11/01/18 09:12 Dose: 100 mg Documented by: [id number] Admin: 10/31/18 20:47 Dose: Not Given Documented by: [id number] Duloxetine HCl (Cymbalta) 40 mg PO HS AMBER Stop: 11/30/18 20:59 Last Admin: 11/01/18 20:54 Dose: 40 mg Documented by: [id number] Admin: 10/31/18 21:02 Dose: Not Given Documented by: [id number] Folic Acid (Folvite) 1 mg PO QAM AMBER Stop: 12/01/18 08:59 Last Admin: 11/02/18 09:29 Dose: 1 mg Documented by: [id number] Admin: 11/01/18 09:12 Dose: 1 mg Documented by: [id number] Furosemide (Lasix) 40 mg PO BID17 AMBER Stop: 11/30/18 20:59 Last Admin: 11/02/18 09:29 Dose: 40 mg Documented by: [id number] Admin: 11/01/18 15:53 Dose: 40 mg Documented by: [id number] Admin: 11/01/18 09:12 Dose: 40 mg Documented by: [id number] Admin: 10/31/18 20:50 Dose: 40 mg Documented by: [id number] Sodium Chloride (Nss) 500 mls @ 999 mls/hr IV .Q31M AMBER Stop: 10/31/18 13:15 Last Infusion: 10/31/18 14:07 Dose: 0 mls/hr Documented by: [id number] Admin: 10/31/18 13:25 Dose: 999 mls/hr Documented by: [id number] Sodium Chloride (Nss 1000ml) 1,000 mls @ 100 mls/hr IV .Q10H AMBER Stop: 11/01/18 06:00 Last Admin: 10/31/18 20:25 Dose: Not Given Documented by: [id number] Influenza Virus Vaccine Quadrival (Flucelvax Quad Vaccine) 0.5 ml IM .ONCE ONE Stop: 10/31/18 22:01 Last Admin: 11/01/18 06:30 Dose: 0.5 ml Documented by: [id number] Ketorolac Tromethamine (Toradol) 30 mg IV Q6 AMBER Stop: 11/02/18 18:01 Last Admin: 11/02/18 12:07 Dose: 30 mg Documented by: [id number] Admin: 11/02/18 06:08 Dose: 30 mg Documented by: [id number] Admin: 11/01/18 23:37 Dose: 30 mg Documented by: [id number] Admin: 11/01/18 18:36 Dose: 30 mg Documented by: [id number] Admin: 11/01/18 11:51 Dose: 30 mg Documented by: [id number] Admin: 11/01/18 06:36 Dose: 30 mg Documented by: [id number] Admin: 10/31/18 20:51 Dose: 30 mg Documented by: [id number] Menthol (Nice) Confirm Administered Dose 24 jovanna BUCCAL .STK-MED ONE Stop: 11/01/18 21:00 Last Admin: 11/01/18 21:01 Dose: 24 jovanna Documented by: [id number] Multivitamins (Multivitamin Tab) [address] [facility] Stop: 12/01/18 08:59 Last Admin: 11/02/18 09:29 Dose: 1 tab Documented by: [id number] Admin: 11/01/18 09:12 Dose: 1 tab Documented by: [id number] Oxycodone HCl (Roxicodone Immediate Rel) 5 mg PO Q4H PRN PRN Reason: pain Stop: 11/14/18 19:44 Last Admin: 11/01/18 20:57 Dose: 5 mg Documented by: [id number] Admin: 11/01/18 15:53 Dose: 5 mg Documented by: [id number] Admin: 11/01/18 10:06 Dose: 5 mg Documented by: [id number] Admin: 10/31/18 20:02 Dose: 5 mg Documented by: [id number] Pantoprazole S[facility] (Protonix) [facility] Stop: 12/01/18 08:59 Last Admin: 11/02/18 09:29 Dose: 40 mg Documented by: [id number] Admin: 11/01/18 09:12 Dose: 40 mg Documented by: [id number] Potassium Chloride (Klor-Con Pwd) 20 meq PO Q2D PRN PRN Reason: CRAMPING Stop: 11/30/18 19:44 Last Admin: 11/01/18 09:11 Dose: 20 meq Documented by: [id number] Rifaximin (Xifaxan) 550 mg PO BID [facility] Stop: 11/30/18 20:59 Last Admin: 11/02/18 09:29 Dose: 550 mg Documented by: [id number] Admin: 11/01/18 20:53 Dose: 550 mg Documented by: [id number] Admin: 11/01/18 09:13 Dose: 550 mg Documented by: [id number] Admin: 10/31/18 20:51 Dose: 550 mg Documented by: [id number] Sennosides (Senokot) 17.2 mg PO [facility] Stop: 11/30/18 20:59 Last Admin: 11/01/18 18:42 Dose: Not Given Documented by: [id number] Admin: 10/31/18 20:48 Dose: Not Given Documented by: [id number] Spironolactone (Aldactone) 100 mg PO BID17 [facility] Stop: 11/30/18 20:59 Last Admin: 11/02/18 09:29 Dose: 100 mg Documented by: [id number] Admin: 11/01/18 15:53 Dose: 100 mg Documented by: [id number] Admin: 11/01/18 09:12 Dose: 100 mg Documented by: [id number] Admin: 10/31/18 20:47 Dose: 100 mg Documented by: [id number] Thiamine HCl (Vitamin B-1) [facility] Stop: 12/01/18 08:59 Last Admin: 11/02/18 09:28 Dose: 100 mg Documented by: [id number] Admin: 11/01/18 09:12 Dose: 100 mg Documented by: [id number] Valacyclovir HCl (Valtrex) 1,000 mg PO [facility] Stop: 11/30/18 20:59 Last Admin: 11/01/18 20:52 Dose: 1,000 mg Documented by: [id number] Admin: 10/31/18 20:50 Dose: 1,000 mg Documented by: [id number] Medical Decision Making Differential Diagnosis Differential diagnosis: Etiologies such as DVT, vascular ischemia, radiculopathy, fracture, hem atoma/contusion, myositis, abscess, septic arthritis cellulitis, joint effusion, trauma, lymphedema, idiopathic, CHF, as well as others were entertained. Medical Records Attestation: I reviewed the patient's medical records. Home Medications Current Medication List: was personally reviewed by me Laboratory Data Attestation: I reviewed the patient's lab results. Result diagrams: 10/31/18 14:35 10/31/18 13:07 Lab Results 10/31/18 10/31/18 10/31/18 Range/Units 13:07 13:07 13:07 WBC (4.8-10.8) K/uL RBC (4.7-6.1) M/uL Hgb (14.0-18.0) g/dL Hct (42-52) % MCV (80-100) fL MCH (25-34) pg MCHC (32-36) g/dL RDW Std Deviation (36.4-46.3) fL RDW Coeff of Abhijit (11.5-14.5) % Plt Count (130-400) K/uL MPV (7.4-10.4) fL Immature Gran % (Auto) % Neut % (Auto) % Lymph % (Auto) % [place] % (Auto) % Eos % (Auto) % Baso % (Auto) % Immature Gran # (Auto) (0.00-0.02) K/uL Neut # (Auto) (1.4-6.5) K/uL Lymph # (Auto) (1.2-3.4) K/uL [place] # (Auto) (0.11-0.59) K/uL Eos # (Auto) (0-0.5) K/uL Baso # (Auto) (0-0.2) K/uL PT 11.9 (9.0-12.0) Seconds INR 1.2 H (0.9-1.1) Sodium (136-145) mmol/L Potassium (3.5-5.1) mmol/L Chloride (98-107) mmol/L Carbon Dioxide (21-32) mmol/L Anion Gap (3-11) BUN (7-18) mg/dl Creatinine (0.6-1.4) mg/dl Est Cr Clr Drug Dosing ml/min Est GFR ( Amer) Est GFR (Non-Af Amer) BUN/Creatinine Ratio (10-20) Glucose (70-99) mg/dl Lactate 1.5 (0.4-2.0) mmol/L Calcium (8.5-10.1) mg/dl Magnesium 2.0 (1.8-2.4) mg/dl Total Bilirubin (0.2-1) mg/dl AST (15-37) U/L ALT (12-78) U/L Alkaline Phosphatase (45-117) U/L Total Protein (6.4-8.2) gm/dl Albumin (3.4-5.0) gm/dl Globulin (2.5-4.0) gm/dl Albumin/Globulin Ratio (0.9-2) 10/31/18 10/31/18 Range/Units 13:07 14:35 WBC 4.17 L (4.8-10.8) K/uL RBC 3.20 L (4.7-6.1) M/uL Hgb 10.8 L (14.0-18.0) g/dL Hct 31.1 L (42-52) % MCV 97.2 (80-100) fL MCH 33.8 (25-34) pg MCHC 34.7 (32-36) g/dL RDW Std Deviation 59.0 H (36.4-46.3) fL RDW Coeff of Abhijit 17.1 H (11.5-14.5) % Plt Count 78 L (130-400) K/uL MPV 11.4 H (7.4-10.4) fL Immature Gran % (Auto) 0.2 % Neut % (Auto) 59.4 % Lymph % (Auto) 22.5 % [place] % (Auto) 14.1 % Eos % (Auto) 3.6 % Baso % (Auto) 0.2 % Immature Gran # (Auto) 0.01 (0.00-0.02) K/uL Neut # (Auto) 2.47 (1.4-6.5) K/uL Lymph # (Auto) 0.94 L (1.2-3.4) K/uL [place] # (Auto) 0.59 (0.11-0.59) K/uL Eos # (Auto) 0.15 (0-0.5) K/uL Baso # (Auto) 0.01 (0-0.2) K/uL PT (9.0-12.0) Seconds INR (0.9-1.1) Sodium 135 L (136-145) mmol/L Potassium 3.8 (3.5-5.1) mmol/L Chloride 101 (98-107) mmol/L Carbon Dioxide 28 (21-32) mmol/L Anion Gap 6.0 (3-11) BUN 15 (7-18) mg/dl Creatinine 0.95 (0.6-1.4) mg/dl Est Cr Clr Drug Dosing 88.9 ml/min Est GFR ( Amer) 101.9 Est GFR (Non-Af Amer) 87.9 BUN/Creatinine Ratio 16.0 (10-20) Glucose 92 (70-99) mg/dl Lactate (0.4-2.0) mmol/L Calcium 8.1 L (8.5-10.1) mg/dl Magnesium (1.8-2.4) mg/dl Total Bilirubin 1.7 H (0.2-1) mg/dl AST 94 H (15-37) U/L ALT 33 (12-78) U/L Alkaline Phosphatase 87 (45-117) U/L Total Protein 5.8 L (6.4-8.2) gm/dl Albumin 2.8 L (3.4-5.0) gm/dl Globulin 3.0 (2.5-4.0) gm/dl Albumin/Globulin Ratio 0.9 (0.9-2) Imaging Data Radiologist's Impression: Radiology results as stated below per my review and the radiologist's interpretation: RIGHT LOWER EXTREMITY VENOUS DOPPLER HISTORY: Right leg swelling. COMPARISON STUDY: None. FINDINGS: There is normal compressibility, flow, and augmentation within the right lower extremity deep venous system. IMPRESSION: No DVT within the right lower extremity Electronically signed by: Ángel Wilson M.D. 10/31/2018 2:18 PM SINGLE VIEW CHEST CLINICAL HISTORY: Generalized weakness. FINDINGS: An AP, portable, upright chest radiograph is compared to study dated 11/04/2017. The cardiomediastinal silhouette is unremarkable. The lungs and pleural spaces are clear. No pneumothorax is seen. The bony thorax is grossly intact. IMPRESSION: No active disease in the chest. Electronically signed by: Jamil Freedman M.D. 10/31/2018 12:52 PM XR hip RT min 2V CLINICAL HISTORY: 58 years-old Male presenting with ELI. TECHNIQUE: Frontal and frog-leg lateral views of the right hip were obtained. COMPARISON: 10/25/2018. FINDINGS: Postsurgical changes of total right hip arthroplasty. No malalignment or periprosthetic fracture. Overlying skin tegan and wound VAC in place. Resolution of prior soft tissue emphysema. The bony pelvis is intact and the visualized portion. IMPRESSION: Expected postsurgical appearance status post total right hip arthroplasty. Electronically signed by: Lavon Church M.D. 10/31/2018 3:34 PM ECG Data Attestation: I personally reviewed and interpreted this ECG as follows: Indication: weakness Rate (beats per minute): 72 Rhythm: normal sinus Findings: + other (low voltage, QTc 457, old septal infarct); no PAC, no PVC, no ST depression, no ST elevation, no acute ischemic change and no ectopy Blood Pressure Blood Pressure Findings: Normal blood pressure Blood Pressure Disposition: did not require urgent referral MDM Narrative This pt was evaluated and appeared to be in no distress. PT was placed on the school lunch monitor. RLE is edematous and ecchymotic. DVT study is negative. Lab work reveals a mild leukopenia and anemia, but is otherwise reassuring. Dr. Allen of orthopedics evaluated the pt and feels the leg is c/w post-operative changes. No cellulitic concerns. XR of the R hip was performed and reveals ELI, no acute anna fx or dislocation. Attempts to get pt to rehab were made after PT/OT consults, however the insurance company was not able to make the approval before closing. Dr Allen was made aware and will keep the pt at [facility] until inpt rehab can be established. Impression & Plan Generalized weakness, Swelling of right lower extremity, S/P total hip arthroplasty Discharge Plan Visit Data *Final* Discharge Date/Time: 10/31/18 19:31 Chief Complaint: Swelling/Edema to Extremity ED Provider: Venessa Donnelly Discharge Problem: Generalized weakness, Swelling of right lower extremity, S/P total hip arthroplasty Patient Disposition: Admitted As Inpatient Discharge Instructions Interventions: ED Discharge Assessment Last Done: 10/31/18 19:31 Discharge Problem: S/P total hip arthroplasty Qualifiers: Laterality: right Qualified Code(s): Z96.641 - Presence of right artificial hip joint The scribe's documentation has been prepared under my direction and personally reviewed by me in its entirety. I confirm that the note above accurately reflects all work, treatment, procedures, and medical decision making performed by me.
[2018-10-31] MEDS ORDERED: LACTULOSE SYRUP 10 GM/15 ML BTL 473 ML PO PRN (19:45)
[2018-10-31] MEDS ORDERED: MAGNESIUM HYDROXIDE SUSP 30 ML UDC PO PRN (19:45)
[2018-10-31] MEDS ORDERED: MECLIZINE HCL 25 MG TAB PO PRN (19:45)
[2018-10-31] MEDS ORDERED: bisacodyL 10 MG SUPP PR PRN (19:45)
[2018-10-31] MEDS ORDERED: ALBUTEROL HFA 8 GM INHALER INH PRN (19:45)
[2018-10-31] MEDS ORDERED: METOCLOPRAMIDE HCL INJ 5 MG/ML 2 ML VIAL IV PRN (19:45)
[2018-10-31] MEDS ORDERED: NALOXONE HCL 0.4 MG/1 ML VIAL/CARP IV PRN (19:45)
[2018-10-31] MEDS ORDERED: ONDANSETRON 4 MG TAB PO PRN (19:45)
[2018-10-31] MEDS ORDERED: POTASSIUM CHLORIDE PWD 20 MEQ PACK PO PRN (19:45)
[2018-10-31] MEDS ORDERED: ONDANSETRON INJ 2 MG/ML 2 ML VIAL IV PRN (19:45)
[2018-10-31] MEDS ORDERED: FLUTICASONE PROPIONATE NA SPR 16 GM BTL NAE PRN (19:45)
[2018-10-31] MEDS ORDERED: HYDROmorphone INJ 0.5 MG/0.5 ML SYR IV PRN (19:45)
[2018-10-31] MEDS: OXYCODONE HCL IR 5 MG TAB (IMMEDIATE RELEASE) PO PRN (20:02)
[2018-10-31] MEDS: SPIRONOLACTONE 100 MG TAB PO SCH (20:47)
[2018-10-31] MEDS: DOCUSATE SODIUM 100 MG CAP PO SCH (20:47)
[2018-10-31] MEDS: SENNA 8.6 MG TAB PO SCH (20:48)
[2018-10-31] MEDS: DULOXETINE HCL 20 MG CAP PO SCH ×2 (20:49→21:02)
[2018-10-31] MEDS: ASPIRIN 81 MG ECTAB PO SCH (20:49)
[2018-10-31] MEDS: VALACYCLOVIR HCL 500 MG TABLET PO SCH (20:50)
[2018-10-31] MEDS: FUROSEMIDE 40 MG TAB PO SCH (20:50)
[2018-10-31] MEDS: AMITRIPTYLINE HCL 10 MG TAB PO SCH (20:51)
[2018-10-31] MEDS: KETOROLAC 30 MG/ML VIAL IV SCH (20:51)
[2018-10-31] MEDS: RIFAXIMIN 550 MG TABLET PO SCH (20:51)
[2018-10-31] MEDS ORDERED: INFLUENZA VIRUS QUAD VACCINE 0.5 ML SYR IM ONE (22:00)
[2018-10-31] MEDS ORDERED: INFLUENZA ADMINISTRATION CHARGE ONE (22:00)
--- NOTE | 2018-11-01 06:23 | History & Physical Report ---
Date of Service November 01, 2018 Assessment & Plan (1) Swelling of right lower extremity: The swelling of his right leg is expected postoperatively from a hip replacement surgery, especially if the patient is in a hypocoagulable state. The ultrasound of his lower extremity was negative and x-rays were negative of his hip. His H&H is normal. We are going to keep him in the hospital under observation for now. He will be seen by physical therapy. Case management will hopefully work at eating him set up for discharge to a rehab facility. We will continue the use of LASHA hose stockings and ice on his right leg to help calm down some of the swelling. Present on Admission?: Yes History of Present Illness Chief Complaint: Postoperative right leg swelling Primary Care Provider: Najma Garcia MD Andrea is a pleasant 58-year-old male who underwent a right anterior total hip arthroplasty last week. He lives by himself and normally ambulates with a scooter or a cane. He has alcohol induced liver cirrhosis as well as thrombocytopenia and is in a general hypocoagulable state. Postoperatively he initially did fairly well with physical therapy, however, given his home status I recommended discharge to a rehab facility. Unfortunately the insurance company denied a rehab stay. He was subsequently discharged home with [facility] nursing. He was initially doing well until the morning of October 31. He said he woke up and there was a lot of swelling in his right leg and he had trouble moving it. He called [facility] who sent him directly to the emergency room via ambulance. While in the emergency room a Doppler ultrasound of his right lower extremity was negative for DVT and x-rays of his hip were negative. He was seen by physical therapy but had difficulty ambulating. The swelling of his leg is likely secondary to postoperative hematoma extending down his leg secondary to his hypercoagulable state. His H&H was within normal limits. After discussions with case management in the emergency room team, we elected to admit him to the hospital under observation awaiting transfer to a rehab facility. Allergies Allergy/AdvReac Type Severity Reaction Status Date / Time No Known Allergies Allergy Verified 10/25/18 08:09 Home Medications Home Medications Medication Instructions Recorded Confirmed Type Xifaxan 550 mg PO BID 11/04/17 10/31/18 History cyanocobalamin (vitamin B-12) 100 mcg PO Q2D 11/04/17 10/31/18 History [Vitamin B-12] folic acid 1 mg PO QAM 11/04/17 10/31/18 History furosemide [Lasix] 40 mg PO BID 11/04/17 10/31/18 History lactulose 10 g PO DAILY PRN 11/04/17 10/31/18 History meclizine 25 mg PO TID PRN 11/04/17 10/31/18 History omeprazole 40 mg PO QAM 11/04/17 10/31/18 History spironolactone 100 mg PO BID 11/04/17 10/31/18 History thiamine HCl (vitamin B1) [Vitamin 100 mg PO QAM 11/04/17 10/31/18 History B-1] valacyclovir [Valtrex] 1,000 mg PO HS 11/04/17 10/31/18 History fluticasone propionate 2 spray INTRANASAL DAILY PRN 04/11/18 10/31/18 History ondansetron HCl [Zofran] 4 mg PO Q6H PRN 04/11/18 10/31/18 History albuterol sulfate [Ventolin HFA] 2 puff INHALATION Q4 PRN 04/30/18 10/31/18 History duloxetine 40 mg PO HS 04/30/18 10/31/18 History potassium chloride 20 meq PO Q2D PRN 04/30/18 10/31/18 History amitriptyline 10 mg PO HS 09/11/18 10/31/18 History aspirin [Ecotrin Low Strength] 81 mg PO BID #84 tab 10/27/18 10/31/18 Rx oxycodone 5 mg PO Q4H PRN #40 tab 10/27/18 10/31/18 Rx Past Med/Surg History Medical History History of hepatitis C (Acute) Anxiety Chronic back pain Depression Hearing deficit History of alcohol abuse History of anemia History of cirrhosis of liver D/T ALCOHOL - LAST ALCOHOL 5 YR AGO History of colon polyps Hx of ascites Hx of encephalopathy HEAPTIC Hx of esophageal varices Hx of gynecomastia Hx of herpes genitalis Hx of thrombocytopenia Hypertension Osteoarthritis Vertigo Surgical History History of colonoscopy History of esophagogastroduodenoscopy (EGD) History of tooth extraction all teeth removed Hx of decompression of ulnar nerve RIGHT Family History Father Family history of diabetes mellitus Other No family history of adverse response to anesthesia No pertinent family history Social History Preferred Language: Kazakh Communication Ability: Effective C 40A Crew Chief Required: No Beliefs That Will Affect Care: None Current Living Situation: Alone Current Living Situation Comment: [facility] s/o Feels Safe at Home: Yes Smoking Status: Former smoker Cigarettes Per Day: 1ppd x 2 years ; Second Hand Exposure: Yes (parents smoked) ; Hx Alcohol Use: No Hx Substance Use: No Review of Systems All systems reviewed & are unremarkable except as noted in HPI & below Physical Exam Musculoskeletal: On physical examination of his right leg, his leg lengths are equal. He has active dorsi flexion plantar flexion of his right ankle. The Lalita VAC dressing is to suction. He does have significant swelling of his whole right leg. It is all dependent edema. He has ecchymosis from his knee down towards his ankle. There is no signs of cellulitis, no signs of infection. Results & Data Vital Signs (Past 12 Hours) Vital Signs Temp Pulse Pulse Pulse Resp BP BP 10/31/18 23:09 36.6 C 91 H 16 118/56 L 10/31/18 20:15 36.3 C L 76 18 129/62 10/31/18 19:31 36.2 C L 64 16 128/64 10/31/18 19:30 36.2 C L 64 16 128/64 10/31/18 19:01 64 16 128/64 10/31/18 19:00 68 12 10/31/18 18:30 69 13 112/57 L Pulse Ox 10/31/18 23:09 97 10/31/18 20:15 96 10/31/18 19:31 95 10/31/18 19:30 95 10/31/18 19:01 10/31/18 19:00 10/31/18 18:30 95 Laboratory Results H & H 10/31/18 Range/Units 14:35 Hgb 10.8 L (14.0-18.0) g/dL Hct 31.1 L (42-52) % Coagulation 10/31/18 Range/Units 13:07 INR 1.2 H (0.9-1.1) Diagnostic Findings X-rays of his right hip show the prosthesis to be in anatomic alignment without any evidence of fracture, dislocation, or loosening. Code Status & VTE Plan VTE Prophylaxis Plan VTE Prophylaxis will be ordered: Yes
[2018-11-01] MEDS: KETOROLAC 30 MG/ML VIAL IV SCH ×4 (06:36→23:37)
[2018-11-01] MEDS: DOCUSATE SODIUM 100 MG CAP PO SCH ×2 (09:12→18:42)
[2018-11-01] MEDS: FUROSEMIDE 40 MG TAB PO SCH ×2 (09:12→15:53)
[2018-11-01] MEDS: MULTIVITAMIN TAB PO SCH (09:12)
[2018-11-01] MEDS: ASPIRIN 81 MG ECTAB PO SCH ×2 (09:12→20:53)
[2018-11-01] MEDS: THIAMINE HCL 100 MG TAB PO SCH (09:12)
[2018-11-01] MEDS: SPIRONOLACTONE 100 MG TAB PO SCH ×2 (09:12→15:53)
[2018-11-01] MEDS: FOLIC ACID 1 MG TAB PO SCH (09:12)
[2018-11-01] MEDS: PANTOprazole 40 MG TAB PO SCH (09:12)
[2018-11-01] MEDS: RIFAXIMIN 550 MG TABLET PO SCH ×2 (09:13→20:53)
[2018-11-01] MEDS: OXYCODONE HCL IR 5 MG TAB (IMMEDIATE RELEASE) PO PRN ×3 (10:06→20:57)
--- NOTE | 2018-11-01 16:46 | Orthopedic Progress Note ---
Date of Service November 01, 2018 Assessment & Plan (1) Swelling of right lower extremity: Overall he is doing better. He is in better spirits today. His pain is better controlled. He can be discharged to [facility] tomorrow at 1:00. He will follow-up with orthopedics in 2 weeks. Present on Admission?: Yes Subjective Ed was seen and examined at bedside this afternoon. Overall is doing better. He still some swelling in his leg but he was able to ambulate up and down the hallways earlier today with physical therapy. He is just waiting for discharge at this time. Physical Exam Musculoskeletal: On physical examination of his right leg, he still has a lot of swelling. The Lalita VAC dressing is intact. His leg lengths are equal he has good range of motion of his right ankle. The ecchymosis is actually improved from yesterday. Results & Data Vital Signs (Past 12 Hours) Vital Signs Temp Pulse Resp BP Pulse Ox 11/01/18 15:22 36.5 C 75 19 115/62 99 11/01/18 07:40 36.3 C L 65 18 110/72 95 PG Care Time/CCT Total # of Minutes Spent Total Time Spent with Patient: Total time spent is greater than 50% in coordination of care (as documented) at patient's floor/unit and/or counseling patient:
[2018-11-01] MEDS: SENNA 8.6 MG TAB PO SCH (18:42)
[2018-11-01] MEDS: AMITRIPTYLINE HCL 10 MG TAB PO SCH (20:51)
[2018-11-01] MEDS: VALACYCLOVIR HCL 500 MG TABLET PO SCH (20:52)
[2018-11-01] MEDS: DULOXETINE HCL 20 MG CAP PO SCH (20:54)
[2018-11-01] MEDS ORDERED: COUGH DROP (SUGAR FREE) LOZ 24 LOZ/1 BOX BUCCAL ONE (20:59)
[2018-11-02] MEDS: KETOROLAC 30 MG/ML VIAL IV SCH ×2 (06:08→12:07)
--- NOTE | 2018-11-02 08:29 | Orthopedic Progress Note ---
Date of Service November 02, 2018 Assessment & Plan (1) Swelling of right lower extremity: Overall is doing well. He is improving from when he arrived at the hospital. He has been ambulating well with physical therapy. He is scheduled to go to [facility] today. He is orthopedically stable for discharge. He will continue aspirin twice a day. He will follow-up with orthopedics as previously scheduled in about 2 weeks. Present on Admission?: Yes Subjective Ed was seen and examined at bedside this morning. Overall is doing very well. He is not having much pain in the right leg. The swelling is improving. He has no complaints. Physical Exam Musculoskeletal: On physical examination of the right leg, the Lalita VAC dressing has been removed. The incision looks good. His leg swelling is starting to go down. He is neurovascular intact. Results & Data Vital Signs (Past 12 Hours) Vital Signs Temp Pulse Resp BP Pulse Ox 11/02/18 07:36 36.4 C L 63 18 111/61 95 11/01/18 23:42 36.8 C 78 16 107/60 95 PG Care Time/CCT Total # of Minutes Spent Total Time Spent with Patient: Total time spent is greater than 50% in coordination of care (as documented) at patient's floor/unit and/or counseling patient:
--- NOTE | 2018-11-02 08:31 | Discharge Summary ---
Date of Service November 02, 2018 Admission HPI Per Admitting Provider Andrea is a pleasant 58-year-old male who underwent a right anterior total hip arthroplasty last week. He lives by himself and normally ambulates with a scooter or a cane. He has alcohol induced liver cirrhosis as well as thrombocytopenia and is in a general hypocoagulable state. Postoperatively he initially did fairly well with physical therapy, however, given his home status I recommended discharge to a rehab facility. Unfortunately the insurance company denied a rehab stay. He was subsequently discharged home with [facility] nursing. He was initially doing well until the morning of October 31. He said he woke up and there was a lot of swelling in his right leg and he had trouble moving it. He called [facility] who sent him directly to the emergency room via ambulance. While in the emergency room a Doppler ultrasound of his right lower extremity was negative for DVT and x-rays of his hip were negative. He was seen by physical therapy but had difficulty ambulating. The swelling of his leg is likely secondary to postoperative hematoma extending down his leg secondary to his hypercoagulable state. His H&H was within normal limits. After discussions with case management in the emergency room team, we elected to admit him to the hospital under observation awaiting transfer to a rehab facility. Principal Diagnosis Postoperative right leg swelling Discharge Data Allergies Allergy/AdvReac Type Severity Reaction Status Date / Time No Known Allergies Allergy Verified 10/25/18 08:09 Consultations 10/31/18 18:09 ED Decision to Admit Stat 11/01/18 08:00 Consult Case Management - Discharge Planning Routine Ordered Studies 10/31/18 12:38 US venous doppler LE RT Stat Hospital Course (1) Swelling of right lower extremity: On October 31, 2018 and was admitted to the hospital for his postoperative leg swelling. He was told to keep his leg elevated and put plenty of ice over the leg. On hospital day #1 he was seen by case management and set up for discharge to [facility] facility at [facility]. He was also seen by physical therapy and able to ambulate into the hallways. On hospital day #2 he continued to improve. His swelling was starting to subside. He was then discharged to [facility]. He will follow-up with orthopedics as previously scheduled. Total Time Total Time Spent Total Time Spent (In Minutes): 20 Discharge Plan Discharge Items Patient Disposition: Transfer [facility] Reason For Visit: POST OP LEG SWELLING Discharge Diagnosis: Postop leg swelling Activity: As commented below Non-emergency contact: Surgeon Call non-emergency contact if: your wound has increased redness and your wound has increased drainage Follow-up/Referrals: Najma Garcia MD [Primary Care Provider] - Diet: Regular Addtl Attending Provider Instructions: Activity and Therapy Recommendations: * If you are using [facility] then therapy will be provided at your home until they feel you have accomplished all of your goals. * If you are using [facility] then Physical Therapy will be provided until they feel you are ready to start Outpatient Physical Therapy. * If you are not using home therapy then Outpatient Physical Therapy should start about 3-5 days from your day of surgery. Therapy will last about 6-10 weeks * You were shown a series of exercises in the hospital. Do these exercises three times each day including the exercises you were shown in physical therapy. * Get up and walk several times each day.~ For the first four weeks, try not to stand or walk for more than one hour at a time. If you do stand or walk for more than one hour, you will not hurt anything, but your leg will likely swell.~~ * As you feel comfortable, you may change from the walker or crutches to a cane and~then to independent walking. Medications: * Narcotic You will likely be sent home from the hospital with a prescription for the narcotic pain medication that worked best throughout your stay. * Aspirin Most patients will be required to take Aspirin 81mg twice a day for 6 weeks after surgery. This is obtained [id number] and a prescription is not necessary. * Other medications may be prescribed for specific circumstances. If you have any questions, please call the office at . * Resume previous home medications unless otherwise instructed TEDs/Elastic Stockings: The white elastic stockings help limit swelling and prevent blood clots from forming in your legs. The more you wear them, the more they work. Wear them for six weeks. Dressing Care: You will likely have a purple VAC dressing after surgery. This dressing will keep the incision dry and promote early healing. After about 7 days the batteries will wear out and the VAC will lose suction. Simply remove the dressing at that time and throw everything away, including the small suction machine. Then, you may leave the tegan open to air or cover them with a dry dressing so they do not rub on your pants. The tegan will be removed at your 2 week follow-up appointment. Showering: You may shower immediately with the purple VAC dressing. Let the shower spray hit your opposite side and slowly pat the plastic dry. Do not soak the dressing. After the dressing is removed you may shower normally with the tegan exposed. Let soapy water run over the tegan and pat them dry. Things To Watch For: * Drainage from the incision site that occurs more than one week after your surgery. * Increased redness at the incision site. * Fever above 102 degrees Fahrenheit. * Unusual chest pain or shortness of breath. * Call [facility] at with any of the above problems Follow-Up Visit: Follow-up with Dr. Allen 2-3 weeks after your day of surgery. An appointment was probably scheduled when you signed-up for surgery in the office. If you have any questions call Office Instructions: More detailed instructions as well as Frequently Asked Questions were provided in a folder by our office when you signed-up for surgery. Please review these instructions when you get home. If you have any further questions or concerns, please feel free to call the office at [phone] Pending Studies at Discharge: No Stand-Alone Forms: My [facility] Skilled Items Patient informed of condition?: Yes DNR: No Discharge Level of Care: Skilled Communicable Disease: No Discharge Prognosis: Improving Lines: None Urinary Catheter: No Medications and DC Order Prescriptions: New oxycodone 5 mg Tablet 5 mg PO Q4H PRN (Reason: pain) Qty: 30 RF: 0 Continued fluticasone propionate 50 mcg/actuation [place],Suspension 2 spray INTRANASAL DAILY PRN (Reason: Nasal Congestion) RF: 0 ondansetron HCl [Zofran] 4 mg Tablet 4 mg PO Q6H PRN (Reason: nausea/vomiting) RF: 0 potassium chloride 20 mEq Packet 20 meq PO Q2D PRN (Reason: CRAMPING) RF: 0 albuterol sulfate [Ventolin HFA] 90 mcg/actuation Hfa Aerosol Inhaler 2 puff INHALATION Q4 PRN (Reason: Shortness Of Breath) RF: 0 duloxetine 20 mg Capsule,Delayed Release(Dr/Ec) 40 mg PO HS RF: 0 amitriptyline 10 mg Tablet 10 mg PO HS RF: 0 aspirin [Ecotrin Low Strength] 81 mg Tablet,Delayed Release (Dr/Ec) 81 mg PO BID Qty: 84 RF: 0 furosemide [Lasix] 40 mg Tablet 40 mg PO BID RF: 0 cyanocobalamin (vitamin B-12) [Vitamin B-12] 100 mcg Tablet 100 mcg PO Q2D RF: 0 valacyclovir [Valtrex] 1 gram Tablet 1,000 mg PO HS RF: 0 spironolactone 100 mg Tablet 100 mg PO BID RF: 0 thiamine HCl (vitamin B1) [Vitamin B-1] 100 mg Tablet 100 mg PO QAM RF: 0 omeprazole 40 mg Capsule,Delayed Release(Dr/Ec) 40 mg PO QAM RF: 0 meclizine 25 mg Tablet 25 mg PO TID PRN (Reason: Dizziness) RF: 0 folic acid 1 mg Tablet 1 mg PO QAM RF: 0 lactulose 10 gram/15 mL Solution 10 g PO DAILY PRN (Reason: Constipation) RF: 0 Xifaxan 550 mg Tablet 550 mg PO BID RF: 0 Discharge Orders: Discharge Order (Routine); Ordered 11/02/18 Ordered By: Quinn Aleln Admission Data Admit Date/Time: 10/31/18 19:05 Attending Provider: Quinn Allen Admit Provider: uQinn Allen Primary Care Provider: Najma Garcia Other Providers: Quinn Allen ; [facility]
[2018-11-02] MEDS ORDERED: CYANOCOBALAMIN (VITAMIN B-12) 100 MCG TABLET PO SCH (09:00)
[2018-11-02] MEDS: THIAMINE HCL 100 MG TAB PO SCH (09:28)
[2018-11-02] MEDS: MULTIVITAMIN TAB PO SCH (09:29)
[2018-11-02] MEDS: ASPIRIN 81 MG ECTAB PO SCH (09:29)
[2018-11-02] MEDS: DOCUSATE SODIUM 100 MG CAP PO SCH (09:29)
[2018-11-02] MEDS: FOLIC ACID 1 MG TAB PO SCH (09:29)
[2018-11-02] MEDS: PANTOprazole 40 MG TAB PO SCH (09:29)
[2018-11-02] MEDS: SPIRONOLACTONE 100 MG TAB PO SCH (09:29)
[2018-11-02] MEDS: RIFAXIMIN 550 MG TABLET PO SCH (09:29)
[2018-11-02] MEDS: FUROSEMIDE 40 MG TAB PO SCH (09:29)
--- NOTE | 2018-11-25 09:57 | Coding Query ---
A supporting diagnosis is required for the test/procedure performed on this patient in order for us to be reimbursed by the patient's insurance. Please provide a supporting diagnosis for the following test/procedure listed below next to the test name along with your signature. *If there is no additional diagnosis for this patient that would support the following test/procedure please document that below next to the test/procedure. Test(s)/Procedure(s) that require a supporting diagnosis: VENOUS DOPPLER LOWER EXT UNILATERAL DIAGNOSIS: Provider Signature: Date: Thank you Vanesa Dinero Health Information Management Once completed, please kindly fax back to [phone] For questions please call [phone] ANTHONY
== END 2018-11-02 12:56 ==
LOC: 3W 11:52 → ED 11:52 → 3W 19:31

== ENCOUNTER 2018-12-17 10:05 | Observation (INO) ==
[2018-12-17 11:15] LABS: Hematocrit (blood only) 34.6 % (42-52); Hemoglobin 11.5 g/dL (14.0-18.0); Mean Corpuscular Hgb Conc 33.2 g/dL (32-36); Mean Corpuscular Volume 96.4 fL (80-100); RDW Coefficient of Variation 14.8 % (11.5-14.5); Red Blood Count 3.59 M/uL (4.7-6.1)
[2018-12-17 11:20] LABS: Mean Platelet Volume 11.5 fL (7.4-10.4); Platelet Count 65 K/uL (130-400)
[2018-12-17 11:26] LABS: INR 1.2 (0.9-1.1); Partial Thromboplastin Time 26.5 Seconds (21.0-31.0); Prothrombin Time 12.5 Seconds (9.0-12.0)
[2018-12-17 11:32] LABS: BUN Creatinine Ratio 17.8 (10-20); Bilirubin Direct 0.4 mg/dl (0-0.2); Calcium 8.9 mg/dl (8.5-10.1); Creatinine Clr Calc Pharmacy 112.3 ml/min; Est GFR (African American) 118.5; Est GFR (Non-African American) 102.2; Potassium 4.1 mmol/L (3.5-5.1)
[2018-12-17 11:33] LABS: Bilirubin,Total 1.1 mg/dl (0.2-1); Total Protein 6.6 gm/dl (6.4-8.2)
[2018-12-17 11:51] LABS: Basophils # (auto) 0.02 K/uL (0-0.2); Basophils % (auto) 0.7 %; Eosinophils % (auto) 3.6 %; Lymphocytes # (auto) 0.87 K/uL (1.2-3.4); Lymphocytes % (auto) 31.1 %; Monocytes % (auto) 14.3 %; Neutrophils # (auto) 1.41 K/uL (1.4-6.5); Neutrophils % (auto) 50.3 %
--- NOTE | 2018-12-17 12:49 | XRay Report ---
XR abdomen 2V w PA chest HISTORY: 58 years-old Male ab pain s/p colonoscopy acute generalized abdominal pain with rectal blee ding. Recent colonoscopy COMPARISON: Chest radiograph 10/31/2018 TECHNIQUE: PA view of the chest with erect and supine views of the abdomen FINDINGS: Cardiomediastinal and hilar silhouettes are within normal limits. No pneumothorax, pleural effusion, focal airspace consolidation or overt pulmonary edema. Bones of the chest appear grossly intact. No p neumatosis or pneumoperitoneum. Mild fecal retention. Mildly prominent air-filled loops of small new l are seen within the abdominal right upper quadrant measuring up to 2.8 cm. Nonobstructive bowel gas pattern. No definite urolith identified. Mild convex left curvature of the lumbar spine. Right hip t otal joint arthroplasty. Abnormally widened appearance of the left femoral head. IMPRESSION: 1. Nonobstructive bowel gas pattern. There are a few mildly prominent air-filled loops of small bowel within the central abdomen which may be physiologic or reflect a mild enteritis or ileus. 2. Mild fecal retention. 3. No pneumatosis or pneumoperitoneum. 4. No acute process of the chest. The above report was generated using voice recognition software. It may contain grammatical, syntax o r spelling errors. Electronically signed by: Eliceo Herrera M.D. 12/17/2018 12:48 PM
--- NOTE | 2018-12-17 12:56 | Gastrointestinal Consultation ---
Date of Consultation December 17, 2018 Supervising Physician Co-Signing Physician Notes I saw and evaluated the patient and agree with the plan from . History of Present Illness Reason for Consultation: Rectal bleeding Attending Physician: Elida Velasquez History of Present Illness Mr. Andrea Harvey is a 58 yr old male pt of Dr. Griffin with a hx of Cirrhosis with ascites, prior hepatic encephalopathy, Grade I EV. He underwent colonoscopy yesterday with polypectomy with a cold snare. It was a 5mm sigmoid polyp. Last evening, around 7Pm and again around 9PM, he experienced abdominal cramping and passed clots, each time about 2 clots, each being about a big as his thumb. He did not sleep well last night due to worry. This morning, when he called the GI office, he was directed to present to the ED. On arrival, Hb is 11.5, actually higher than prior in October of 10.8. He is mildly hypotensive: BP 99/53/. His BPs typically run 110 - 120/50 -60. HR is normal in the 60's. He is awake, alert, oriented and feels well while resting in bed but c/o feeling lightheaded/dizzy if he tries to stand. BUN 13/Cr 0.7, and INR 1.2. He has some mild upper abdomen discomfort, no significant abdominal pain. Allergies Allergy/AdvReac Type Severity Reaction Status Date / Time No Known Allergies Allergy Verified 12/17/18 11:37 Home Medications Home Medications Medication Instructions Recorded Confirmed Type Xifaxan 550 mg PO BID 11/04/17 12/17/18 History cyanocobalamin (vitamin B-12) 100 mcg PO Q2D 11/04/17 12/17/18 History [Vitamin B-12] folic acid 1 mg PO QAM 11/04/17 12/17/18 History furosemide [Lasix] 40 mg PO BID 11/04/17 12/17/18 History lactulose 20 g PO QID PRN 11/04/17 12/17/18 History meclizine 25 mg PO TID PRN 11/04/17 12/17/18 History omeprazole 40 mg PO QAM 11/04/17 12/17/18 History spironolactone 100 mg PO BID 11/04/17 12/17/18 History thiamine HCl (vitamin B1) [Vitamin 100 mg PO QAM 11/04/17 12/17/18 History B-1] valacyclovir [Valtrex] 1,000 mg PO HS 11/04/17 12/17/18 History fluticasone propionate 2 spray INTRANASAL DAILY PRN 04/11/18 12/17/18 History ondansetron HCl [Zofran] 4 mg PO Q6H PRN 04/11/18 12/17/18 History albuterol sulfate [Ventolin HFA] 2 puff INHALATION Q4 PRN 04/30/18 12/17/18 History potassium chloride 20 meq PO Q2D 04/30/18 12/17/18 History amitriptyline 10 mg PO HS 09/11/18 12/17/18 History oxycodone 5 mg PO Q4H PRN #30 tab 11/02/18 12/17/18 Rx duloxetine 60 mg PO DAILY 12/17/18 12/17/18 History Patient History Medical History Anxiety Chronic back pain Depression Genital herpes GERD (gastroesophageal reflux disease) Hearing deficit History of alcohol abuse History of anemia History of cirrhosis of liver D/T ALCOHOL History of colon polyps History of hepatitis C (Acute) Hx of ascites Hx of encephalopathy HEAPTIC Hx of esophageal varices Hx of gynecomastia Hx of thrombocytopenia Hypertension Osteoarthritis Portal hypertensive gastropathy Portal vein thrombosis Vertigo Surgical History History of tooth extraction all teeth removed History of total right hip arthroplasty Hx of decompression of ulnar nerve RIGHT Family History Father Diabetes Other No family history of adverse response to anesthesia Social History Preferred Language: Hungarian Communication Ability: Effective Product Director Required: No Beliefs That Will Affect Care: None marital status: / Current Living Situation: Alone Current Living Situation Comment: Coral Sherman s/o Other Information That Helps Us Care for You: No Feels Safe at Home: Yes Safety Concerns: Feels Safe At This Time Smoking Status: Former smoker Tobacco Type: smokeless tobacco ; Cigarettes Per Day: 1ppd x 2 years ; Second Hand Exposure: Yes (parents smoked) ; Hx Alcohol Use: No (Former heavy alcohol use) Hx Substance Use: Yes substance use type: marijuana Substance Use Type Other:: Occasional marijuana use Review of Systems Review of Systems: ROS: Gen: + lightheaded when he tries to stand. No fevers. Eyes: No eye redness, or pain, no recent vision changes Resp: No SOB, no cough Cardio: No palpitations/irregular beats, no chest pain GI: + bright red blood/clots rectally yesterday; + upper abdomen discomfort; intermittent lower abdomen discomfort; no nausea/vomiting : Denies pain on urination Skin: No jaundice, itching or new rashes M/S: no red swollen or painful joints Physical Exam Constitutional: WD/WN, vitals as above average body habitus Eyes: PERRL, conjunctivae normal, anicteric sclerae ENMT: external ear and nose normal, oropharynx normal Neck: trachea midline, no thyromegaly Respiratory: normal respiratory effort, lungs clear to auscultation Cardiovascular: RRR, no murmur, no edema Gastrointestinal (Abdomen): Inspection/Auscultation: abdomen normal to inspection; abdomen not distended Percussion/Palpation: + abdomen tender (mild epigastric discomfort) and abdomen soft Musculoskeletal: no cyanosis or clubbing, extremities motor strength 5/5 Skin: no rashes, warm and dry no jaundice Neurologic: PERRL, EOMI, accommodation nl, no face palsy, no dysarthria Psychiatric: A+Ox3, euthymic affect Lymphatic: no cervical or axillary lymphadenopathy Results & Data Vital Signs (Past 12 Hours) Vital Signs Temp Pulse Resp BP Pulse Ox 12/17/18 11:15 78 14 97 12/17/18 11:00 78 15 98 12/17/18 10:45 88 18 97 12/17/18 10:31 65 16 97 12/17/18 10:30 64 17 99/53 L 94 12/17/18 10:21 65 18 95 12/17/18 10:16 68 19 119/66 95 12/17/18 10:05 36.6 C 67 18 119/66 99 Diagnostic Findings X-ray chest/abdomen: Non obstructive process, mild fecal retention, no pneumatosis or pneumoperitoneum.
--- NOTE | 2018-12-17 13:55 | History & Physical Report ---
Date of Service December 17, 2018 Assessment & Plan (1) Rectal bleeding: -Admit to [facility] -Patient presented from home with reports of rectal bleeding; underwent colonoscopy yesterday and had a polyp removed from the sigmoid colon, internal hemorrhoids were also noted -Suspect bleeding is from polypectomy -Hgb stable at 11.5 (baseline ~ 10-12) -Case was discussed with BECKY Gonzales -Full liquid diet for today -Recheck H&H this evening -Transfuse PRN -BP is intermittent/borderline low, will hold diuretics for today and give gentle IVF (2) Portal hypertensive gastropathy: (3) Hx of esophageal varices: (4) Alcoholic cirrhosis: -Sober for 5 years -Holding diuretics as above -Continue routine medications including Xifaxan and lactulose; not on beta- louis therapy secondary to hypotension in the past (5) Thrombocytopenia: (6) Anemia: -Hgb and platelets at baseline (7) Chronic back pain: -Continue routine home medications (8) DVT prophylaxis: -SCDs due to rectal bleeding, anemia, from a cytopenia History of Present Illness Chief Complaint: Rectal bleeding Primary Care Provider: Najma Garcia MD 58-year-old male who presents to the ED for evaluation of rectal bleeding. Patient underwent routine colonoscopy as an outpatient yesterday. One polyp was removed from the sigmoid colon and internal hemorrhoids were noted as well. Patient reports that last evening, he started to pass blood clots per rectum. He had some associated bright red bleeding as well. He reports he felt lightheaded and dizzy however denies any syncopal event. This morning, patient reports a brown-colored bowel movement. No further bleeding. However he reports he continued to feel lightheaded and dizzy and therefore came to the ED for further evaluation. Patient denies nausea and vomiting. No abdominal pain. He denies chest pain. He has chronic exertional shortness of breath which is unchanged from baseline. No fevers or chills. He denies any urinary symptoms. In the ED, Hgb is 11.5 (at baseline). He is also chronically thrombocytopenic with platelet count 65K. Patient is hemodynamically stable. Allergies Allergy/AdvReac Type Severity Reaction Status Date / Time No Known Allergies Allergy Verified 12/17/18 11:37 Home Medications Home Medications Medication Instructions Recorded Confirmed Type Xifaxan 550 mg PO BID 11/04/17 12/17/18 History cyanocobalamin (vitamin B-12) 100 mcg PO Q2D 11/04/17 12/17/18 History [Vitamin B-12] folic acid 1 mg PO QAM 11/04/17 12/17/18 History furosemide [Lasix] 40 mg PO BID 11/04/17 12/17/18 History lactulose 20 g PO QID PRN 11/04/17 12/17/18 History meclizine 25 mg PO TID PRN 11/04/17 12/17/18 History omeprazole 40 mg PO QAM 11/04/17 12/17/18 History spironolactone 100 mg PO BID 11/04/17 12/17/18 History thiamine HCl (vitamin B1) [Vitamin 100 mg PO QAM 11/04/17 12/17/18 History B-1] valacyclovir [Valtrex] 1,000 mg PO HS 11/04/17 12/17/18 History fluticasone propionate 2 spray INTRANASAL DAILY PRN 04/11/18 12/17/18 History ondansetron HCl [Zofran] 4 mg PO Q6H PRN 04/11/18 12/17/18 History albuterol sulfate [Ventolin HFA] 2 puff INHALATION Q4 PRN 04/30/18 12/17/18 History potassium chloride 20 meq PO Q2D 04/30/18 12/17/18 History amitriptyline 10 mg PO HS 09/11/18 12/17/18 History oxycodone 5 mg PO Q4H PRN #30 tab 11/02/18 12/17/18 Rx duloxetine 60 mg PO DAILY 12/17/18 12/17/18 History Past Med/Surg History Medical History Anxiety Chronic back pain Depression Genital herpes GERD (gastroesophageal reflux disease) Hearing deficit History of alcohol abuse History of anemia History of cirrhosis of liver D/T ALCOHOL History of colon polyps History of hepatitis C (Acute) Hx of ascites Hx of encephalopathy HEAPTIC Hx of esophageal varices Hx of gynecomastia Hx of thrombocytopenia Hypertension Osteoarthritis Portal hypertensive gastropathy Portal vein thrombosis Vertigo Surgical History History of tooth extraction all teeth removed History of total right hip arthroplasty Hx of decompression of ulnar nerve RIGHT Family History Father Diabetes Other No family history of adverse response to anesthesia Social History Preferred Language: Guamanian Communication Ability: Effective Medical Operations Supervisor Required: No Beliefs That Will Affect Care: None marital status: / Current Living Situation: Alone Current Living Situation Comment: Coral Sherman s/o Other Information That Helps Us Care for You: No Feels Safe at Home: Yes Safety Concerns: Feels Safe At This Time Smoking Status: Former smoker Tobacco Type: smokeless tobacco ; Cigarettes Per Day: 1ppd x 2 years ; Second Hand Exposure: Yes (parents smoked) ; Hx Alcohol Use: No (Former heavy alcohol use) Hx Substance Use: Yes substance use type: marijuana Substance Use Type Other:: Occasional marijuana use Review of Systems Review of Systems: ROS per HPI, all other systems reviewed and negative Physical Exam Constitutional: WD/WN, vitals as above Eyes: PERRL, conjunctivae normal, anicteric sclerae ENMT: external ear and nose normal, oropharynx normal Respiratory: normal respiratory effort, lungs clear to auscultation Cardiovascular: Rate/Rhythm: regular rate and regular rhythm Vessels: normal peripheral pulses Extremities: no edema Gastrointestinal (Abdomen): normal bowel sounds, soft, nontender, no hepatosplenomegaly Musculoskeletal: no cyanosis or clubbing, extremities motor strength 5/5 Skin: no rashes, warm and dry Neurologic: PERRL, EOMI, accommodation nl, no face palsy, no dysarthria Psychiatric: A+Ox3, euthymic affect Results & Data Vital Signs (Past 12 Hours) Vital Signs Temp Pulse Resp BP Pulse Ox 12/17/18 12:15 76 16 99 12/17/18 12:01 79 22 100 12/17/18 12:00 72 18 115/66 95 12/17/18 11:45 79 20 96 12/17/18 11:31 70 19 94 12/17/18 11:30 66 21 113/68 95 12/17/18 11:15 78 14 97 12/17/18 11:00 78 15 98 12/17/18 10:45 88 18 97 12/17/18 10:31 65 16 97 12/17/18 10:30 64 17 99/53 L 94 12/17/18 10:21 65 18 95 12/17/18 10:16 68 19 119/66 95 12/17/18 10:05 36.6 C 67 18 119/66 99 Laboratory Results Short CBC 12/17/18 Range/Units 10:46 WBC 2.80 L (4.8-10.8) K/uL Hgb 11.5 L (14.0-18.0) g/dL Hct 34.6 L (42-52) % Plt Count 65 L (130-400) K/uL BMP 12/17/18 10:46 Sodium 139 Potassium 4.1 Chloride 108 H Carbon Dioxide 25 BUN 13 Creatinine 0.73 Glucose 79 Calcium 8.9 Liver Function 12/17/18 Range/Units 10:46 Total Bilirubin 1.1 H (0.2-1) mg/dl Direct Bilirubin 0.4 H (0-0.2) mg/dl AST 45 H (15-37) U/L ALT 27 (12-78) U/L Alkaline Phosphatase 96 (45-117) U/L Albumin 3.0 L (3.4-5.0) gm/dl Diagnostic Findings CXR/ABDOMEN X-RAY IMPRESSION: 1. Nonobstructive bowel gas pattern. There are a few mildly prominent air-filled loops of small bowel within the central abdomen which may be physiologic or reflect a mild enteritis or ileus. 2. Mild fecal retention. 3. No pneumatosis or pneumoperitoneum. 4. No acute process of the chest. Code Status & VTE Plan VTE Prophylaxis Plan VTE Prophylaxis will be ordered: Yes Supervising Physician Co-Signing Physician Notes Date of Service: December 17, 2018 Attending Addendum: care coordinated with BECKY Monten[place]ro please refer to her notes for full details, I agree with her notes patient seen and examined, records reviewed by myself as well on exam, patient seen resting in bed, comfortable no recurrence of rectal bleed at the ER denies abdominal discomfort, nausea, dyspnea, dizziness no other symptoms VS noted and reviewed oriented x 3, not in distress, speaks in sentences with no effort nor accessory muscle use normal rate, regular rhythm, no murmurs clear breath sounds bilaterally non distended, soft, nontender no bipedal edema, erythema, warmth no neuro deficits WBC 2.8 Hg 11.5 Plt 65 Crea 0.73 Chest/Abd xray: IMPRESSION: 1. Nonobstructive bowel gas pattern. There are a few mildly prominent air-filled loops of small bowel within the central abdomen which may be physiologic or reflect a mild enteritis or ileus. 2. Mild fecal retention. 3. No pneumatosis or pneumoperitoneum. 4. No acute process of the chest. ASSESSMENT AND PLAN RECTAL BLEED, S/P COLONOSCOPY WITH POLYPECTOMY Hg at baseline chronic thrombocytopenia monitor above discussed with GI, full liquid diet for today, observe overnight ALCOHOLIC LIVER CIRRHOSIS compensated other diagnoses and plan of care as per BECKY Montenegro's notes Fernando Gaming MD
--- NOTE | 2018-12-17 14:05 | Communication Note ---
Date of Service: December 17, 2018 Attending Addendum: care coordinated with BECKY [place] please refer to her notes for full details, I agree with her notes patient seen and examined, records reviewed by myself as well on exam, patient seen resting in bed, comfortable no recurrence of rectal bleed at the ER denies abdominal discomfort, nausea, dyspnea, dizziness no other symptoms VS noted and reviewed oriented x 3, not in distress, speaks in sentences with no effort nor accessory muscle use normal rate, regular rhythm, no murmurs clear breath sounds bilaterally non distended, soft, nontender no bipedal edema, erythema, warmth no neuro deficits WBC 2.8 Hg 11.5 Plt 65 Crea 0.73 Chest/Abd xray: IMPRESSION: 1. Nonobstructive bowel gas pattern. There are a few mildly prominent air-filled loops of small bowel within the central abdomen which may be physiologic or reflect a mild enteritis or ileus. 2. Mild fecal retention. 3. No pneumatosis or pneumoperitoneum. 4. No acute process of the chest. ASSESSMENT AND PLAN RECTAL BLEED, S/P COLONOSCOPY WITH POLYPECTOMY Hg at baseline chronic thrombocytopenia monitor above discussed with GI, full liquid diet for today, observe overnight ALCOHOLIC LIVER CIRRHOSIS compensated other diagnoses and plan of care as per BECKY Montenegro's notes Fernando Gaming MD
[2018-12-17] MEDS ORDERED: LACTULOSE SYRUP 20 GM/30 ML UDC PO PRN (14:39)
[2018-12-17] MEDS ORDERED: ACETAMINOPHEN 325 MG TAB PO PRN (14:39)
[2018-12-17] MEDS ORDERED: SODIUM CHLORIDE 0.9% 1000ML 1,000 ML IV SCH (15:00)
--- NOTE | 2018-12-17 17:46 | Emergency Department Note ---
Entered by Vishnu Parker acting as a scribe for History of Present Illness General Chief complaint: Rectal Bleed Time Seen by Provider: 12/17/18 10:31 Source: patient History of Present Illness Provider complaint: Rectal bleed Onset (ago): hour(s) (This morning) Location: abdomen Pain Consistency: + other (Episodic) Maximum Pain Intensity: 6 Current Pain Intensity: 6 Associated symptoms: + other (Abdominal pain, Dizzy ); no nausea/vomiting The patient is a 58 year old male who presents to the Emergency Room with complaints of an episode of hematochezia that occurred this morning. The patient reports that he felt as though he needed to move his bowels but when he did all that came out was a blood clot which he described as "bright red and about the size of my thumb". The patient states that a short time later he felt a similar sensation so he went to move his bowels and could not. During this episode the patient became dizzy but did not lose consciousness. The patient mentioned that yesterday he had a colonoscopy done with Dr. Daniel but he has had multiple in the past and has never moved blood clots like this before. Currently the patient endorses some upper abdominal pain rating it a 6/10. The patient denies any nausea or vomiting. He also mentioned that he quit drinking 5 years ago after developing cirrhosis of the liver. Home Medications Home Medications Medication Instructions Recorded Confirmed Type Xifaxan 550 mg PO BID 11/04/17 12/17/18 History cyanocobalamin (vitamin B-12) 100 mcg PO Q2D 11/04/17 12/17/18 History [Vitamin B-12] folic acid 1 mg PO QAM 11/04/17 12/17/18 History furosemide [Lasix] 40 mg PO BID 11/04/17 12/17/18 History lactulose 20 g PO QID PRN 11/04/17 12/17/18 History meclizine 25 mg PO TID PRN 11/04/17 12/17/18 History omeprazole 40 mg PO QAM 11/04/17 12/17/18 History spironolactone 100 mg PO BID 11/04/17 12/17/18 History thiamine HCl (vitamin B1) [Vitamin 100 mg PO QAM 11/04/17 12/17/18 History B-1] valacyclovir [Valtrex] 1,000 mg PO HS 11/04/17 12/17/18 History fluticasone propionate 2 spray INTRANASAL DAILY PRN 04/11/18 12/17/18 History ondansetron HCl [Zofran] 4 mg PO Q6H PRN 04/11/18 12/17/18 History albuterol sulfate [Ventolin HFA] 2 puff INHALATION Q4 PRN 04/30/18 12/17/18 History potassium chloride 20 meq PO Q2D 04/30/18 12/17/18 History amitriptyline 10 mg PO HS 09/11/18 12/17/18 History oxycodone 5 mg PO Q4H PRN #30 tab 11/02/18 12/17/18 Rx duloxetine 60 mg PO DAILY 12/17/18 12/17/18 History Allergies Allergy/AdvReac Type Severity Reaction Status Date / Time No Known Allergies Allergy Verified 12/17/18 11:37 Past Med/Surg History Medical History Anxiety Chronic back pain Depression Genital herpes GERD (gastroesophageal reflux disease) Hearing deficit History of alcohol abuse History of anemia History of cirrhosis of liver D/T ALCOHOL History of colon polyps History of hepatitis C (Acute) Hx of ascites Hx of encephalopathy HEAPTIC Hx of esophageal varices Hx of gynecomastia Hx of thrombocytopenia Hypertension Osteoarthritis Portal hypertensive gastropathy Portal vein thrombosis Vertigo Surgical History History of tooth extraction all teeth removed History of total right hip arthroplasty Hx of decompression of ulnar nerve RIGHT Family History Father Diabetes Other No family history of adverse response to anesthesia Social History Preferred Language: Italian Communication Ability: Effective Spinner Frame Required: No Beliefs That Will Affect Care: None marital status: / Current Living Situation: Alone Current Living Situation Comment: [facility] s/o Other Information That Helps Us Care for You: No Feels Safe at Home: Yes Safety Concerns: Feels Safe At This Time Smoking Status: Former smoker Tobacco Type: smokeless tobacco ; Cigarettes Per Day: 1ppd x 2 years ; Second Hand Exposure: Yes (parents smoked) ; Hx Alcohol Use: No (Former heavy alcohol use) Hx Substance Use: Yes substance use type: marijuana Substance Use Type Other:: Occasional marijuana use Review of Systems See HPI for pertinent positives & negatives. and A total of 10 systems reviewed and were otherwise negative Physical Exam Vital Signs Vital Signs - 24 hr 12/17/18 10:05 12/17/18 10:16 12/17/18 10:21 Temperature 36.6 C Temperature Source Oral Pulse Rate 67 68 65 Pulse Rate from SpO2 Sensor 68 66 Respiratory Rate 18 19 18 Respiratory Effort / Characteristics Non-Labored Spontaneous Respiratory Depth Normal Respiratory Pattern Regular Blood Pressure 119/66 119/66 Blood Pressure Mean 83 82 Blood Pressure Position Lying Pulse Oximetry 99 95 95 Oxygen Delivery Method Room Air Sepsis Recent Fever Within 48 Hours No Sepsis New/Unexplained Change in Mental Status No Sepsis Action Taken by Nursing No Action Required 12/17/18 10:30 12/17/18 10:31 12/17/18 10:45 Temperature Temperature Source Pulse Rate 64 65 88 Pulse Rate from SpO2 Sensor 64 66 84 Respiratory Rate 17 16 18 Respiratory Effort / Characteristics Respiratory Depth Respiratory Pattern Blood Pressure 99/53 L Blood Pressure Mean 61 Blood Pressure Position Pulse Oximetry 94 97 97 Oxygen Delivery Method Sepsis Recent Fever Within 48 Hours Sepsis New/Unexplained Change in Mental Status Sepsis Action Taken by Nursing 12/17/18 11:00 12/17/18 11:15 12/17/18 11:30 Temperature Temperature Source Pulse Rate 78 78 66 Pulse Rate from SpO2 Sensor 77 78 68 Respiratory Rate 15 14 21 Respiratory Effort / Characteristics Respiratory Depth Respiratory Pattern Blood Pressure 113/68 Blood Pressure Mean 84 Blood Pressure Position Pulse Oximetry 98 97 95 Oxygen Delivery Method Sepsis Recent Fever Within 48 Hours Sepsis New/Unexplained Change in Mental Status Sepsis Action Taken by Nursing 12/17/18 11:31 12/17/18 11:45 12/17/18 12:00 Temperature Temperature Source Pulse Rate 70 79 72 Pulse Rate from SpO2 Sensor 67 78 67 Respiratory Rate 19 20 18 Respiratory Effort / Characteristics Respiratory Depth Respiratory Pattern Blood Pressure 115/66 Blood Pressure Mean 75 Blood Pressure Position Pulse Oximetry 94 96 95 Oxygen Delivery Method Sepsis Recent Fever Within 48 Hours Sepsis New/Unexplained Change in Mental Status Sepsis Action Taken by Nursing 12/17/18 12:01 12/17/18 12:15 Temperature Temperature Source Pulse Rate 79 76 Pulse Rate from SpO2 Sensor 79 76 Respiratory Rate 22 16 Respiratory Effort / Characteristics Respiratory Depth Respiratory Pattern Blood Pressure Blood Pressure Mean Blood Pressure Position Pulse Oximetry 100 99 Oxygen Delivery Method Sepsis Recent Fever Within 48 Hours Sepsis New/Unexplained Change in Mental Status Sepsis Action Taken by Nursing GENERAL: He is oriented to person, place, and time. He appears well-developed and well-nourished. He does not appear distressed. HENT: Exam performed. - Head: Normocephalic and atraumatic. - Right Ear: External ear normal. No mastoid tenderness. - Left Ear: External ear normal. No mastoid tenderness. - Mouth/Throat: The oropharynx is clear and moist. No trismus in the jaw. No dental abscesses or uvula swelling. No oropharyngeal exudate or tonsillar abscesses. EYES: Conjunctivae and EOM are normal. Pupils are equal, round, and reactive to light. Right eye exhibits no discharge. Left eye exhibits no discharge. Mild scleral icterus. NECK: Normal range of motion. Neck supple. No JVD present. No spinous process tenderness present. No carotid bruit present. No rigidity. No tracheal deviation and normal range of motion present. No Brudzinski's sign and no Kernig's sign noted. CV: Normal rate, regular rhythm, normal heart sounds and intact distal pulses. There is no peripheral edema. Palpable radial pulses bue. PULM/CHEST: Effort normal and breath sounds normal. No respiratory distress. No stridor. He has no wheezes. He has no rales. - Chest Wall: He exhibits no tenderness. ABD: The abdomen is soft. Bowel sounds are normal. He has no distension. No mass is present. There is no tenderness. There is no rebound, no guarding, no Garcia's sign and no tenderness at McBurney's point. Rovsig negative. RECTAL: Heme negative. MUSC/SKEL: Normal range of motion. There is no peripheral edema, tenderness or deformity. LYMPH: No cervical adenopathy. NEURO: He is alert and oriented to person, place, and time. He has normal strength. No cranial nerve deficit or sensory deficit. Coordination and gait normal. GCS eye subscore is 4. GCS verbal subscore is 5. GCS motor subscore is 6. Cerebellar tests wnl. SKIN: Skin is warm and dry. He is not diaphoretic. PSYCH: He has a normal mood and affect. Behavior is normal. Judgment and thought content normal. Course Course 1039: Past medical records reviewed. The patient was evaluated in room B06, and a complete history and physical examination were performed.EMR showed colonoscopy was done yesterday by Dr. Daniel. During the procedure he had a 5mm polyp removed and internal hemorrhoids were noted. He has a history of anemia, thrombocytopenia, and cirrhosis. 1220: I spoke to Zohaib LINK who evaluated the patient and would like for him to be admitted for observation for a GI bleed. Vital signs are stable. Hemoglobin, platelet and bilirubin are baseline. I spoke to Daina Marrero PAC under Dr. Gaming about the patient's case. They are going to accept the patient for further evaluation. Consultations Consultation #1: I spoke to Zohaib LINK who evaluated the patient and would like for him to be admitted for observation for a GI bleed. Time: 12:20 Consultation #2: I spoke to Daina Marrero PAC under Dr. Gaming about the patient's case. They are going to accept the patient for further evaluation. Time: 12:20 Administered Medications Sodium Chloride (Nss 1000ml) 1,000 mls @ 80 mls/hr IV .[id number] AMBER Stop: 12/18/18 03:29 Last Admin: 12/17/18 15:05 Dose: 80 mls/hr Documented by: [id number] Impression & Plan Anemia, Thrombocytopenia Medical Decision Making Medical Records Attestation: I reviewed the patient's medical records. Home Medications Current Medication List: was personally reviewed by me Laboratory Data Attestation: I reviewed the patient's lab results. Result diagrams: 12/17/18 10:46 12/17/18 10:46 Lab Results 12/17/18 12/17/18 12/17/18 Range/Units 10:46 10:46 10:46 WBC 2.80 L (4.8-10.8) K/uL RBC 3.59 L (4.7-6.1) M/uL Hgb 11.5 L (14.0-18.0) g/dL Hct 34.6 L (42-52) % MCV 96.4 (80-100) fL MCH 32.0 (25-34) pg MCHC 33.2 (32-36) g/dL RDW Std Deviation 52.0 H (36.4-46.3) fL RDW Coeff of Abhijit 14.8 H (11.5-14.5) % Plt Count 65 L (130-400) K/uL MPV 11.5 H (7.4-10.4) fL Immature Gran % (Auto) 0.0 % Neut % (Auto) 50.3 % Lymph % (Auto) 31.1 % [place] % (Auto) 14.3 % Eos % (Auto) 3.6 % Baso % (Auto) 0.7 % Immature Gran # (Auto) 0.00 (0.00-0.02) K/uL Neut # (Auto) 1.41 (1.4-6.5) K/uL Lymph # (Auto) 0.87 L (1.2-3.4) K/uL [place] # (Auto) 0.40 (0.11-0.59) K/uL Eos # (Auto) 0.10 (0-0.5) K/uL Baso # (Auto) 0.02 (0-0.2) K/uL PT 12.5 H (9.0-12.0) Seconds INR 1.2 H (0.9-1.1) APTT 26.5 (21.0-31.0) Seconds PTT Ratio 1.0 Sodium (136-145) mmol/L Potassium (3.5-5.1) mmol/L Chloride (98-107) mmol/L Carbon Dioxide (21-32) mmol/L Anion Gap (3-11) BUN (7-18) mg/dl Creatinine (0.6-1.4) mg/dl Est Cr Clr Drug Dosing ml/min Est GFR ( Amer) Est GFR (Non-Af Amer) BUN/Creatinine Ratio (10-20) Glucose (70-99) mg/dl Calcium (8.5-10.1) mg/dl Total Bilirubin (0.2-1) mg/dl Direct Bilirubin (0-0.2) mg/dl AST (15-37) U/L ALT (12-78) U/L Alkaline Phosphatase (45-117) U/L Total Protein (6.4-8.2) gm/dl Albumin (3.4-5.0) gm/dl Lipase (73-393) U/L Blood Type A Positive Antibody Screen NEGATIVE 12/17/18 Range/Units 10:46 WBC (4.8-10.8) K/uL RBC (4.7-6.1) M/uL Hgb (14.0-18.0) g/dL Hct (42-52) % MCV (80-100) fL MCH (25-34) pg MCHC (32-36) g/dL RDW Std Deviation (36.4-46.3) fL RDW Coeff of Abhijit (11.5-14.5) % Plt Count (130-400) K/uL MPV (7.4-10.4) fL Immature Gran % (Auto) % Neut % (Auto) % Lymph % (Auto) % [place] % (Auto) % Eos % (Auto) % Baso % (Auto) % Immature Gran # (Auto) (0.00-0.02) K/uL Neut # (Auto) (1.4-6.5) K/uL Lymph # (Auto) (1.2-3.4) K/uL [place] # (Auto) (0.11-0.59) K/uL Eos # (Auto) (0-0.5) K/uL Baso # (Auto) (0-0.2) K/uL PT (9.0-12.0) Seconds INR (0.9-1.1) APTT (21.0-31.0) Seconds PTT Ratio Sodium 139 (136-145) mmol/L Potassium 4.1 (3.5-5.1) mmol/L Chloride 108 H (98-107) mmol/L Carbon Dioxide 25 (21-32) mmol/L Anion Gap 6.0 (3-11) BUN 13 (7-18) mg/dl Creatinine 0.73 (0.6-1.4) mg/dl Est Cr Clr Drug Dosing 112.3 ml/min Est GFR ( Amer) 118.5 Est GFR (Non-Af Amer) 102.2 BUN/Creatinine Ratio 17.8 (10-20) Glucose 79 (70-99) mg/dl Calcium 8.9 (8.5-10.1) mg/dl Total Bilirubin 1.1 H (0.2-1) mg/dl Direct Bilirubin 0.4 H (0-0.2) mg/dl AST 45 H (15-37) U/L ALT 27 (12-78) U/L Alkaline Phosphatase 96 (45-117) U/L Total Protein 6.6 (6.4-8.2) gm/dl Albumin 3.0 L (3.4-5.0) gm/dl Lipase 141 (73-393) U/L Blood Type Antibody Screen Imaging Data Radiologist's Impression: Radiology results as stated below per my review and the radiologist's interpretation: XR abdomen 2V w PA chest HISTORY: 58 years-old Male ab pain s/p colonoscopy acute generalized abdominal pain with rectal bleeding. Recent colonoscopy COMPARISON: Chest radiograph 10/31/2018 TECHNIQUE: PA view of the chest with erect and supine views of the abdomen FINDINGS: Cardiomediastinal and hilar silhouettes are within normal limits. No pneumothorax, pleural effusion, focal airspace consolidation or overt pulmonary edema. Bones of the chest appear grossly intact. No pneumatosis or pneumoperitoneum. Mild fecal retention. Mildly prominent air-filled loops of small bowel are seen within the abdominal right upper quadrant measuring up to 2.8 cm. Nonobstructive bowel gas pattern. No definite urolith identified. Mild convex left curvature of the lumbar spine. Right hip total joint arthroplasty. Abnormally widened appearance of the left femoral head. IMPRESSION: 1. Nonobstructive bowel gas pattern. There are a few mildly prominent air-filled loops of small bowel within the central abdomen which may be physiologic or refl ect a mild enteritis or ileus. 2. Mild fecal retention. 3. No pneumatosis or pneumoperitoneum. 4. No acute process of the chest. The above report was generated using voice recognition software. It may contain grammatical, syntax or spelling errors. Electronically signed by: Eliceo Herrera M.D. 12/17/2018 12:48 PM Blood Pressure Blood Pressure Findings: Normal blood pressure MDM Narrative 1039: Past medical records reviewed. The patient was evaluated in room B06, and a complete history and physical examination were performed.EMR showed colonoscopy was done yesterday by Dr. Daniel. During the procedure he had a 5mm polyp removed and internal hemorrhoids were noted. He has a history of anemia, thrombocytopenia, and cirrhosis. 1220: I spoke to Zohaib LINK who evaluated the patient and would like for him to be admitted for observation for a GI bleed. Vital signs are stable. Hemoglobin, platelet and bilirubin are baseline. I spoke to Daina Marrero PAC under Dr. Gaming about the patient's case. They are going to accept the patient for further evaluation. Discharge Plan Visit Data *Final* Discharge Date/Time: 12/17/18 14:07 Chief Complaint: Rectal Bleed ED Provider: Alessio Roland Discharge Problem: Anemia, Thrombocytopenia Patient Disposition: Being Evaluated by Hospitalist Discharge Instructions Interventions: ED Discharge Assessment Last Done: 12/17/18 14:07 Discharge Problem: Anemia Qualifiers: Anemia type: unspecified type Qualified Code(s): D64.9 - Anemia, unspecified The scribe's documentation has been prepared under my direction and personally reviewed by me in its entirety. I confirm that the note above accurately reflects all work, treatment, procedures, and medical decision making performed by me.
[2018-12-17 19:17] LABS: Hematocrit (blood only) 32.2 % (42-52); Hemoglobin 10.8 g/dL (14.0-18.0)
[2018-12-17] MEDS: RIFAXIMIN 550 MG TABLET PO SCH (20:24)
[2018-12-17] MEDS ORDERED: VALACYCLOVIR HCL 500 MG TABLET PO SCH (21:00)
[2018-12-17] MEDS ORDERED: AMITRIPTYLINE HCL 10 MG TAB PO SCH (21:00)
[2018-12-18] MEDS ORDERED: MoRPHine SULFATE 4 MG/ML 1 ML CARP\\VIAL IV STA (00:26)
[2018-12-18 06:09] LABS: Hematocrit (blood only) 31.1 % (42-52); Hemoglobin 10.6 g/dL (14.0-18.0); Mean Corpuscular Hemoglobin 32.5 pg (25-34); Mean Corpuscular Hgb Conc 34.1 g/dL (32-36); Mean Corpuscular Volume 95.4 fL (80-100); Platelet Count 56 K/uL (130-400); RDW Coefficient of Variation 14.6 % (11.5-14.5); RDW Standard Deviation 50.6 fL (36.4-46.3); Red Blood Count 3.26 M/uL (4.7-6.1); White Blood Count 2.33 K/uL (4.8-10.8)
[2018-12-18 06:26] LABS: BUN Creatinine Ratio 13.1 (10-20); Calcium 8.5 mg/dl (8.5-10.1); Creatinine Clr Calc Pharmacy 130.1 ml/min; Est GFR (African American) 125.9; Est GFR (Non-African American) 108.6; Potassium 3.9 mmol/L (3.5-5.1)
[2018-12-18] MEDS ORDERED: DULOXETINE HCL 60 MG CAP PO SCH (09:00)
[2018-12-18] MEDS ORDERED: PANTOprazole 40 MG TAB PO SCH (09:00)
[2018-12-18] MEDS ORDERED: FOLIC ACID 1 MG TAB PO SCH (09:00)
[2018-12-18] MEDS ORDERED: THIAMINE HCL 100 MG TAB PO SCH (09:00)
[2018-12-18] MEDS ORDERED: CYANOCOBALAMIN (VITAMIN B-12) 100 MCG TABLET PO SCH (09:00)
[2018-12-18] MEDS: RIFAXIMIN 550 MG TABLET PO SCH (09:01)
--- NOTE | 2018-12-18 09:54 | Gastroenterology Progress Note ---
Date of Service December 18, 2018 Assessment & Plan (1) Rectal bleedin58 year old male admitted with 2 episodes of scant rectal bleeding following colonoscopy w/ polypectomy (5mm sigmoid polyp) w/ stable hemoglobin, vital signs, now passing formed, brown stools. No GI contraindication to advancing diet No GI contraindication to D/C home HGB remained stable No further evidence of lower GIB Continued follow up as OP for cirrhosis Thank you for allowing us to participate in the care of this patient. Please call with any acute changes, questions or concerns. Please see addendum below with additional recommendation from my supervising physician. Present on Admission?: Yes Supervising Physician Co-Signing Physician Notes I saw and evaluated the patient. He had no recurrent hematochezia overnight. I suspect the initial hematochezia from the day of his procedure was simply from the polyp that was removed with a cold snare technique. Please call with any additional questions or concerns. Subjective pt was seen and evaluated, chart reviewed tolerating clear liquid diet no abd pain no nausea, vomiting having semi-formed brown stools no further episodes of rectal bleeding vitals stable hgb stable Review of Systems Constitutional: no fever and no chills Respiratory: no cough and no dyspnea Cardiovascular: no chest pain and no radiating jaw, neck or arm pain Gastrointestinal: no abdominal pain, no vomiting, no coffee ground emesis, no hematemesis, no blood in stools and no melena Physical Exam Constitutional: well nourished; no acute distress Neck: trachea midline Respiratory: normal respiratory effort Cardiovascular: Rate/Rhythm: regular rate and regular rhythm Gastrointestinal (Abdomen): normal bowel sounds, soft, nontender, no hepatosplenomegaly Skin: no rashes, warm and dry Results & Data Vital Signs (Past 12 Hours) Vital Signs Temp Pulse Resp BP Pulse Ox 12/18/18 07:09 36.6 C 70 18 121/50 L 98 12/17/18 22:33 36.6 C 75 18 145/76 H 98 Laboratory Results 12/18/18 12/18/18 12/17/18 Range/Units 05:24 05:24 18:59 WBC 2.33 L (4.8-10.8) K/uL RBC 3.26 L (4.7-6.1) M/uL Hgb 10.6 L 10.8 L (14.0-18.0) g/dL Hct 31.1 L 32.2 L (42-52) % MCV 95.4 (80-100) fL MCH 32.5 (25-34) pg MCHC 34.1 (32-36) g/dL RDW Std Deviation 50.6 H (36.4-46.3) fL RDW Coeff of Abhijit 14.6 H (11.5-14.5) % Plt Count 56 L (130-400) K/uL MPV 12.0 H (7.4-10.4) fL Immature Gran % (Auto) % Neut % (Auto) % Lymph % (Auto) % [place] % (Auto) % Eos % (Auto) % Baso % (Auto) % Immature Gran # (Auto) (0.00-0.02) K/uL Neut # (Auto) (1.4-6.5) K/uL Lymph # (Auto) (1.2-3.4) K/uL [place] # (Auto) (0.11-0.59) K/uL Eos # (Auto) (0-0.5) K/uL Baso # (Auto) (0-0.2) K/uL PT (9.0-12.0) Seconds INR (0.9-1.1) APTT (21.0-31.0) Seconds PTT Ratio Sodium 141 (136-145) mmol/L Potassium 3.9 (3.5-5.1) mmol/L Chloride 111 H (98-107) mmol/L Carbon Dioxide 23 (21-32) mmol/L Anion Gap 7.0 (3-11) BUN 8 D (7-18) mg/dl Creatinine 0.63 (0.6-1.4) mg/dl Est Cr Clr Drug Dosing 130.1 ml/min Est GFR ( Amer) 125.9 Est GFR (Non-Af Amer) 108.6 BUN/Creatinine Ratio 13.1 (10-20) Glucose 73 (70-99) mg/dl Calcium 8.5 (8.5-10.1) mg/dl Total Bilirubin (0.2-1) mg/dl Direct Bilirubin (0-0.2) mg/dl AST (15-37) U/L ALT (12-78) U/L Alkaline Phosphatase (45-117) U/L Total Protein (6.4-8.2) gm/dl Albumin (3.4-5.0) gm/dl Lipase (73-393) U/L Blood Type Antibody Screen 12/17/18 12/17/18 12/17/18 Range/Units 10:46 10:46 10:46 WBC 2.80 L (4.8-10.8) K/uL RBC 3.59 L (4.7-6.1) M/uL Hgb 11.5 L (14.0-18.0) g/dL Hct 34.6 L (42-52) % MCV 96.4 (80-100) fL MCH 32.0 (25-34) pg MCHC 33.2 (32-36) g/dL RDW Std Deviation 52.0 H (36.4-46.3) fL RDW Coeff of Abhijit 14.8 H (11.5-14.5) % Plt Count 65 L (130-400) K/uL MPV 11.5 H (7.4-10.4) fL Immature Gran % (Auto) 0.0 % Neut % (Auto) 50.3 % Lymph % (Auto) 31.1 % [place] % (Auto) 14.3 % Eos % (Auto) 3.6 % Baso % (Auto) 0.7 % Immature Gran # (Auto) 0.00 (0.00-0.02) K/uL Neut # (Auto) 1.41 (1.4-6.5) K/uL Lymph # (Auto) 0.87 L (1.2-3.4) K/uL [place] # (Auto) 0.40 (0.11-0.59) K/uL Eos # (Auto) 0.10 (0-0.5) K/uL Baso # (Auto) 0.02 (0-0.2) K/uL PT 12.5 H (9.0-12.0) Seconds INR 1.2 H (0.9-1.1) APTT 26.5 (21.0-31.0) Seconds PTT Ratio 1.0 Sodium 139 (136-145) mmol/L Potassium 4.1 (3.5-5.1) mmol/L Chloride 108 H (98-107) mmol/L Carbon Dioxide 25 (21-32) mmol/L Anion Gap 6.0 (3-11) BUN 13 (7-18) mg/dl Creatinine 0.73 (0.6-1.4) mg/dl Est Cr Clr Drug Dosing 112.3 ml/min Est GFR ( Amer) 118.5 Est GFR (Non-Af Amer) 102.2 BUN/Creatinine Ratio 17.8 (10-20) Glucose 79 (70-99) mg/dl Calcium 8.9 (8.5-10.1) mg/dl Total Bilirubin 1.1 H (0.2-1) mg/dl Direct Bilirubin 0.4 H (0-0.2) mg/dl AST 45 H (15-37) U/L ALT 27 (12-78) U/L Alkaline Phosphatase 96 (45-117) U/L Total Protein 6.6 (6.4-8.2) gm/dl Albumin 3.0 L (3.4-5.0) gm/dl Lipase 141 (73-393) U/L Blood Type Antibody Screen 12/17/18 Range/Units 10:46 WBC (4.8-10.8) K/uL RBC (4.7-6.1) M/uL Hgb (14.0-18.0) g/dL Hct (42-52) % MCV (80-100) fL MCH (25-34) pg MCHC (32-36) g/dL RDW Std Deviation (36.4-46.3) fL RDW Coeff of Abhijit (11.5-14.5) % Plt Count (130-400) K/uL MPV (7.4-10.4) fL Immature Gran % (Auto) % Neut % (Auto) % Lymph % (Auto) % [place] % (Auto) % Eos % (Auto) % Baso % (Auto) % Immature Gran # (Auto) (0.00-0.02) K/uL Neut # (Auto) (1.4-6.5) K/uL Lymph # (Auto) (1.2-3.4) K/uL [place] # (Auto) (0.11-0.59) K/uL Eos # (Auto) (0-0.5) K/uL Baso # (Auto) (0-0.2) K/uL PT (9.0-12.0) Seconds INR (0.9-1.1) APTT (21.0-31.0) Seconds PTT Ratio Sodium (136-145) mmol/L Potassium (3.5-5.1) mmol/L Chloride (98-107) mmol/L Carbon Dioxide (21-32) mmol/L Anion Gap (3-11) BUN (7-18) mg/dl Creatinine (0.6-1.4) mg/dl Est Cr Clr Drug Dosing ml/min Est GFR ( Amer) Est GFR (Non-Af Amer) BUN/Creatinine Ratio (10-20) Glucose (70-99) mg/dl Calcium (8.5-10.1) mg/dl Total Bilirubin (0.2-1) mg/dl Direct Bilirubin (0-0.2) mg/dl AST (15-37) U/L ALT (12-78) U/L Alkaline Phosphatase (45-117) U/L Total Protein (6.4-8.2) gm/dl Albumin (3.4-5.0) gm/dl Lipase (73-393) U/L Blood Type A Positive Antibody Screen NEGATIVE
--- NOTE | 2018-12-18 10:41 | Hospitalist Progress Note ---
Date of Service December 18, 2018 Assessment & Plan (1) Rectal bleeding: -Patient presented from home with reports of rectal bleeding -recent colonoscopy had a polyp removed from the sigmoid colon, internal hemorrhoids were also noted -Suspect bleeding is from polypectomy -another possibility is that patient recently completed course of aspirin after surgery at end of October 2018 -baseline hemoglobin of 10 to 12 -admission hemoglobin 11.5 on 12/17/18 -hemoglobin has been stable above 10 and rectal bleeding has appeared to have stopped -patient seen by gastroenterology which has advised non-invasive course and hospital discharge -Patient should have blood counts repeated after hospital discharge through outpatient gastroenterology clinic or primary care clinic (2) Anemia: -management as above (3) Thrombocytopenia: -chronic thrombocytopenia -discharge day 12/18/18 platelets are above 50,000 (4) Alcoholic cirrhosis: -Sober for 5 years -Holding diuretics as above -Continue routine medications including Xifaxan and lactulose; not on beta- louis therapy secondary to hypotension in the past (5) Portal hypertensive gastropathy: -chronic (6) Hx of esophageal varices: (7) Chronic back pain: -Continue routine home medications (8) DVT prophylaxis: -SCDs while in the hospital Discharge Diagnosis: Rectal bleeding, anemia, thrombocytopenia, history of alcoholic cirrhosis Subjective Patient reports that he has been able to tolerate the regular diet. he denies any recent bleeding in the hospital stay. Denies acute abdominal pain. no vomiting. no lightheadedness. no dizziness Review of Systems Review of Systems: All systems reviewed & are unremarkable except as noted in HPI & below Results & Data Vital Signs (Past 12 Hours) Vital Signs Temp Pulse Resp BP Pulse Ox 12/18/18 07:09 36.6 C 70 18 121/50 L 98 (1) Anemia Anemia type: unspecified type Qualified Code(s): D64.9 - Anemia, unspecified
--- NOTE | 2018-12-18 11:08 | Discharge Summary ---
Date of Service December 18, 2018 Admission HPI Per Admitting Provider 58-year-old male who presents to the ED for evaluation of rectal bleeding. Patient underwent routine colonoscopy as an outpatient yesterday. One polyp was removed from the sigmoid colon and internal hemorrhoids were noted as well. Patient reports that last evening, he started to pass blood clots per rectum. He had some associated bright red bleeding as well. He reports he felt lightheaded and dizzy however denies any syncopal event. This morning, patient reports a brown-colored bowel movement. No further bleeding. However he reports he continued to feel lightheaded and dizzy and therefore came to the ED for further evaluation. Patient denies nausea and vomiting. No abdominal pain. He denies chest pain. He has chronic exertional shortness of breath which is unchanged from baseline. No fevers or chills. He denies any urinary symptoms. In the ED, Hgb is 11.5 (at baseline). He is also chronically thrombocytopenic with platelet count 65K. Patient is hemodynamically stable. Principal Diagnosis Rectal Bleeding, Anemia, Thrombocytopenia, History of alcoholic cirrhosis Discharge Exam Constitutional WD/WN, vitals as above Eyes PERRL, conjunctivae normal, anicteric sclerae ENMT external ear and nose normal, oropharynx normal Neck normal visual inspection Respiratory normal respiratory effort, lungs clear to auscultation Cardiovascular RRR, no murmur, no edema Gastrointestinal (Abdomen) normal bowel sounds, soft, nontender, no hepatosplenomegaly Musculoskeletal no cyanosis or clubbing, extremities motor strength 5/5 Head/Neck/Chest: normocephalic and head atraumatic Neurologic PERRL, EOMI, accommodation nl, no face palsy, no dysarthria CN's II-XI intact bilaterally Psychiatric A+Ox3, euthymic affect Discharge Data Allergies Allergy/AdvReac Type Severity Reaction Status Date / Time No Known Allergies Allergy Verified 12/17/18 11:37 Consultations 12/17/18 12:22 ED Decision to Admit Stat 12/17/18 14:39 Consult Gastroenterology Routine Hospital Course (1) Rectal bleeding: -Patient presented from home with reports of rectal bleeding -recent colonoscopy had a polyp removed from the sigmoid colon, internal hemorrhoids were also noted -Suspect bleeding is from polypectomy -another possibility is that patient recently completed course of aspirin after surgery at end of October 2018 -baseline hemoglobin of 10 to 12 -admission hemoglobin 11.5 on 12/17/18 -hemoglobin has been stable above 10 and rectal bleeding has appeared to have stopped -patient seen by gastroenterology which has advised non-invasive course and hospital discharge -Patient should have blood counts repeated after hospital discharge through outpatient gastroenterology clinic or primary care clinic (2) Anemia: -management as above (3) Thrombocytopenia: -chronic thrombocytopenia -discharge day 12/18/18 platelets are above 50,000 (4) Alcoholic cirrhosis: -Sober for 5 years -Holding diuretics as above -Continue routine medications including Xifaxan and lactulose; not on beta- louis therapy secondary to hypotension in the past (5) Portal hypertensive gastropathy: -chronic (6) Hx of esophageal varices: (7) Chronic back pain: -Continue routine home medications (8) DVT prophylaxis: -SCDs while in the hospital Discharge Diagnosis: Rectal bleeding, anemia, thrombocytopenia, history of alcoholic cirrhosis Total Time Total Time Spent Total Time Spent (In Minutes): 40 minutes Total Time Includes: Examination of the Patient, Discharge Planning, Medication Reconciliation and Communication With Other Providers Discharge Plan Discharge Items Patient Disposition: Home - Self-Care Reason For Visit: RECTAL BLEED Discharge Diagnosis: Rectal Bleeding, Anemia, Thrombocytopenia, History of Alcoholic Cirrohosis Activity: Per Instructions section Non-emergency contact: Primary Care Provider and [employer] Call non-emergency contact if: you have any medication questions Follow-up/Referrals: Najma Garcia MD [Primary Care Provider] - Diet: Regular Addtl Attending Provider Instructions: Patient should have repeat blood counts checked by outpatient gastroenterology or primary care doctor after hospital stay Follow up appointments Dr. Ezekiel Ruiz of Gastroenterology at [facility] on 12/25/18 at 1:[address] Najma Garcia of primary care on 12/27/18 at 1 PM Pending Studies at Discharge: No Stand-Alone Forms: My [employer], Smoking Cessation Medications and DC Order Prescriptions: Continued fluticasone propionate 50 mcg/actuation Zamora,Suspension 2 spray INTRANASAL DAILY PRN (Reason: Nasal Congestion) RF: 0 ondansetron HCl [Zofran] 4 mg Tablet 4 mg PO Q6H PRN (Reason: nausea/vomiting) RF: 0 potassium chloride 20 mEq Packet 20 meq PO Q2D RF: 0 albuterol sulfate [Ventolin HFA] 90 mcg/actuation Hfa Aerosol Inhaler 2 puff INHALATION Q4 PRN (Reason: Shortness Of Breath) RF: 0 amitriptyline 10 mg Tablet 10 mg PO HS RF: 0 oxycodone 5 mg Tablet 5 mg PO Q4H PRN (Reason: pain) Qty: 30 RF: 0 duloxetine 60 mg capsule,delayed release(DR/EC) 60 mg PO DAILY RF: 0 furosemide [Lasix] 40 mg Tablet 40 mg PO BID RF: 0 cyanocobalamin (vitamin B-12) [Vitamin B-12] 100 mcg Tablet 100 mcg PO Q2D RF: 0 valacyclovir [Valtrex] 1 gram Tablet 1,000 mg PO HS RF: 0 spironolactone 100 mg Tablet 100 mg PO BID RF: 0 thiamine HCl (vitamin B1) [Vitamin B-1] 100 mg Tablet 100 mg PO QAM RF: 0 omeprazole 40 mg Capsule,Delayed Release(Dr/Ec) 40 mg PO QAM RF: 0 meclizine 25 mg Tablet 25 mg PO TID PRN (Reason: Dizziness) RF: 0 folic acid 1 mg Tablet 1 mg PO QAM RF: 0 lactulose 10 gram/15 mL Solution 20 g PO QID PRN (Reason: Constipation) RF: 0 Xifaxan 550 mg Tablet 550 mg PO BID RF: 0 Discharge Orders: Discharge Order (Routine); Ordered 12/18/18 Ordered By: Gomez Viera Admission Data Admit Date/Time: 12/17/18 13:08 Attending Provider: Gomez Viera Admit Provider: Fernando Gaming Primary Care Provider: Najma Garcai Other Interventions: Discharge Summary Assessment (RN) Last Done: 12/18/18 10:57
== END 2018-12-18 16:11 | disposition home health service (06) ==
LOC: ED 10:05 → 4W 10:05 → SUATTDRO 13:08 → 4W 14:07

== ENCOUNTER 2019-03-01 16:33 | Inpatient (IN) ==
[2019-03-01] MEDS ORDERED: ONDANSETRON INJ 2 MG/ML 2 ML VIAL IV STA (16:46)
[2019-03-01] MEDS ORDERED: DEXAMETHASONE SOD INJ 4 MG/ML VIAL IV STA (16:46)
--- NOTE | 2019-03-01 16:48 | Emergency Department Note ---
Entered by Giulia Ornelas acting as a scribe for Gordy Maxwell DO History of Present Illness General Chief complaint: Back Injury/Pain Stated complaint: BACK PAIN, FALLS, TOE PAIN Time Seen by Provider: 03/01/19 16:35 Source: patient History of Present Illness Onset (ago): year(s) 1 Location: back (lower ), lower extremity (bilateral leg numbness and weakness (recently worse on left)), left (ongoing pain on left side of body ) and right (flank pain ) Severity: similar to prior episodes (today is worse than past episodes, 5 episodes of left leg numbness today ) Pain Consistency: + constant (back pain, flank pain ) and + intermittent (leg pain/numbness) Relieved By: + other (leg numbness relieved by laying or sitting down) Exacerbated By: + other (leg numbness exacerbated by standing in one position for too long ) Associated symptoms: + denies other symptoms (mid back pain, trouble urinating), + diaphoresis (1x today ), + headaches and + nausea/vomiting (1x today ) The patient is a 59 year old male with a history of chronic back pain, sacroiliitis, anemia, alcoholic cirrhosis, DVT prophylaxis, and thrombocytopenia who presents to the Emergency Room with complaints of back injury/pain. The patient states that 1 year ago he began to experience intermittent bilateral leg numbness and weakness which is exacerbated when he stands in one position for too long and is relieved when he sits or lays down. He explains that these episodes have gotten worse since onset and that his left leg gave out 5 times today. The patient also reports experiencing ongoing pain in his left side as well as pain in his right flank which radiates to his lower back. He also complains of a headache as well as an episode of nausea, vomiting, and diaphoresis today. The patient was seen at [facility] 2 days ago for the same where he received x-rays but was not yet informed of the results. He admits that he does not think he ever had an MRI done of his back. Of note, he takes Lasix and recently began a steroid. He denies mid back pain and trouble urinating. The patient offers no further concerns at this time. Home Medications Home Medications Medication Instructions Recorded Confirmed Type Xifaxan 550 mg PO BID 11/04/17 03/01/19 History cyanocobalamin (vitamin B-12) 100 mcg PO Q2D 11/04/17 03/01/19 History [Vitamin B-12] folic acid 1 mg PO QAM 11/04/17 03/01/19 History furosemide [Lasix] 40 mg PO BID 11/04/17 03/01/19 History meclizine 25 mg PO TID PRN 11/04/17 03/01/19 History omeprazole 40 mg PO QAM 11/04/17 03/01/19 History spironolactone 100 mg PO BID 11/04/17 03/01/19 History thiamine HCl (vitamin B1) [Vitamin 100 mg PO QAM 11/04/17 03/01/19 History B-1] valacyclovir [Valtrex] 1,000 mg PO HS 11/04/17 03/01/19 History fluticasone propionate 2 spray INTRANASAL DAILY PRN 04/11/18 03/01/19 History ondansetron HCl [Zofran] 4 mg PO Q6H PRN 04/11/18 03/01/19 History albuterol sulfate [Ventolin HFA] 2 puff INHALATION Q4 PRN 04/30/18 03/01/19 History potassium chloride 20 meq PO Q2D 04/30/18 03/01/19 History duloxetine 60 mg PO DAILY 12/17/18 03/01/19 History diclofenac sodium [Voltaren] 2 g TOPICAL QID PRN 03/01/19 03/01/19 History lactulose [Kristalose] 10 g PO QAM 03/01/19 03/01/19 History methylprednisolone 0 mg PO .DAILY/UD 03/01/19 03/01/19 History Allergies Allergy/AdvReac Type Severity Reaction Status Date / Time No Known Allergies Allergy Verified 03/01/19 18:21 Past Med/Surg History Medical History Anxiety Chronic back pain Depression Genital herpes GERD (gastroesophageal reflux disease) Hearing deficit History of alcohol abuse History of anemia History of cirrhosis of liver D/T ALCOHOL History of colon polyps History of hepatitis C (Acute) Hx of ascites Hx of encephalopathy HEAPTIC Hx of esophageal varices Hx of gynecomastia Hx of thrombocytopenia Hypertension Osteoarthritis Portal hypertensive gastropathy Portal vein thrombosis Vertigo Surgical History History of tooth extraction all teeth removed History of total right hip arthroplasty Hx of decompression of ulnar nerve RIGHT Family History Father Diabetes Other No family history of adverse response to anesthesia Social History Preferred Language: French Communication Ability: Effective E Commerce Developer Required: No Beliefs That Will Affect Care: None marital status: / Current Living Situation: Alone Current Living Situation Comment: [facility] s/o Feels Safe at Home: Yes Smoking Status: Former smoker Tobacco Type: smokeless tobacco ; Cigarettes Per Day: 1ppd x 2 years ; Second Hand Exposure: Yes (parents smoked) ; Hx Alcohol Use: No (Former heavy alcohol use) Hx Substance Use: Yes substance use type: marijuana Substance Use Type Other:: Occasional marijuana use Review of Systems See HPI for pertinent positives & negatives. and A total of 10 systems reviewed and were otherwise negative Physical Exam Vital Signs Vital Signs - 24 hr 03/01/19 16:35 03/01/19 16:46 03/01/19 17:09 Temperature 37.3 C Temperature Source Oral Pulse Rate 72 70 Pulse Rate from SpO2 Sensor 67 Respiratory Rate 20 19 Respiratory Effort / Characteristics Non-Labored Spontaneous Respiratory Depth Normal Respiratory Pattern Regular Blood Pressure 113/62 117/75 Blood Pressure Mean 79 79 Pulse Oximetry 98 99 98 Oxygen Delivery Method Room Air Room Air Sepsis Recent Fever Within 48 Hours No Sepsis New/Unexplained Change in Mental Status No Sepsis Action Taken by Nursing No Action Required 03/01/19 18:00 03/01/19 18:09 03/01/19 19:56 Temperature Temperature Source Pulse Rate 71 76 Pulse Rate from SpO2 Sensor 70 64 67 Respiratory Rate 19 16 Respiratory Effort / Characteristics Respiratory Depth Respiratory Pattern Blood Pressure 138/71 124/71 Blood Pressure Mean 105 104 Pulse Oximetry 97 98 97 Oxygen Delivery Method Sepsis Recent Fever Within 48 Hours Sepsis New/Unexplained Change in Mental Status Sepsis Action Taken by Nursing GENERAL: The patient is awake and alert. He is very anxious appearing and appears to be uncomfortable. EYES: The conjunctivae are clear. The pupils are round and reactive. EARS, NOSE, MOUTH AND THROAT: The nose is without any evidence of any deformity. Mucous membranes are moist. Tongue is midline. NECK: The neck is nontender and supple. RESPIRATORY: Normal respiratory effort is noted there is no evidence of wheezing rhonchi or rales CARDIOVASCULAR: Regular rate and rhythm noted there no murmurs rubs or gallops normal S1 normal S2. GASTROINTESTINAL: The abdomen is soft. Abdomen is nontender. BACK: Low lumbar spine tenderness was noted to palpation. There is also significant left paravertebral muscle tenderness especially in low lumbar spine. Range of motion elicited significant pain. Straight leg raise elicited pain with the left leg. MUSCULOSKELETAL/EXTREMITIES: There is no evidence of gross deformity full range of motion is noted in the hips and shoulders. SKIN: There is no obvious evidence of any rash. Skin was warm and dry. Pulses were symmetric in both feet. NEUROLOGIC: Patient is awake alert and oriented x3. Patellar tendon reflexes were absent bilaterally. Achilles tendon reflexes were absent bilaterally. Great toe raise was symmetric. Course Course 163: Past medical records reviewed. The patient was evaluated in room A04B. A complete history and physical exam was performed. 1799: I checked on the patient and updated him on test results. 1939: I spoke to Dr. Newman, Ortho Spine about the patient. 1999: I spoke to Dr. Snyder who will evaluate the patient for inpatient admission. 2004: I re-checked the patient and updated him on plan to admit. The patient verbally expressed understanding and agreement of the treatment plan. The patient will be evaluated for further treatment. Administered Medications Fentanyl Citrate (Fentanyl Citrate) 50 mcg IV Q15M PRN PRN Reason: Pain Stop: 03/15/19 16:45 Last Admin: 03/01/19 18:20 Dose: 50 mcg Documented by: [id number] Admin: 03/01/19 17:05 Dose: 50 mcg Documented by: [id number] Discontinued Medications Dexamethasone (Decadron) 10 mg IV NOW STA Stop: 03/01/19 16:47 Last Admin: 03/01/19 17:04 Dose: 10 mg Documented by: [id number] Sodium Chloride (Nss) 500 mls @ 999 mls/hr IV .Q31M AMBER Stop: 03/01/19 17:30 Last Infusion: 03/01/19 17:38 Dose: 0 mls/hr Documented by: [id number] Admin: 03/01/19 17:05 Dose: 999 mls/hr Documented by: [id number] Ondansetron HCl (Zofran) 4 mg IV NOW STA Stop: 03/01/19 16:47 Last Admin: 03/01/19 17:05 Dose: 4 mg Documented by: [id number] Medical Decision Making Differential Diagnosis Differential diagnoses includes but is not limited to lumbar radiculopathy, muscle strain, fracture, cauda equina, mass, and disc herniation. Medical Records Attestation: I reviewed the patient's medical records. Home Medications Current Medication List: was personally reviewed by me Laboratory Data Attestation: I reviewed the patient's lab results. Result diagrams: 03/01/19 16:49 03/01/19 16:49 Lab Results 03/01/19 03/01/19 Range/Units 16:49 16:49 WBC 5.47 (4.8-10.8) K/uL RBC 3.68 L (4.7-6.1) M/uL Hgb 11.8 L (14.0-18.0) g/dL Hct 35.4 L (42-52) % MCV 96.2 (80-100) fL MCH 32.1 (25-34) pg MCHC 33.3 (32-36) g/dL RDW Std Deviation 58.0 H (36.4-46.3) fL RDW Coeff of Abhijit 16.6 H (11.5-14.5) % Plt Count 74 L (130-400) K/uL MPV 11.0 H (7.4-10.4) fL Immature Gran % (Auto) 0.2 % Neut % (Auto) 70.2 % Lymph % (Auto) 15.2 % [place] % (Auto) 13.3 % Eos % (Auto) 0.9 % Baso % (Auto) 0.2 % Immature Gran # (Auto) 0.01 (0.00-0.02) K/uL Neut # (Auto) 3.84 (1.4-6.5) K/uL Lymph # (Auto) 0.83 L (1.2-3.4) K/uL [place] # (Auto) 0.73 H (0.11-0.59) K/uL Eos # (Auto) 0.05 (0-0.5) K/uL Baso # (Auto) 0.01 (0-0.2) K/uL Sodium 139 (136-145) mmol/L Potassium 4.0 (3.5-5.1) mmol/L Chloride 109 H (98-107) mmol/L Carbon Dioxide 27 (21-32) mmol/L Anion Gap 3.0 (3-11) BUN 15 (7-18) mg/dl Creatinine 0.88 (0.6-1.4) mg/dl Est Cr Clr Drug Dosing 90.4 ml/min Est GFR ( Amer) 109.0 Est GFR (Non-Af Amer) 94.0 BUN/Creatinine Ratio 17.3 (10-20) Glucose 98 (70-99) mg/dl Calcium 8.6 (8.5-10.1) mg/dl Total Bilirubin 1.5 H (0.2-1) mg/dl AST 63 H (15-37) U/L ALT 52 (12-78) U/L Alkaline Phosphatase 90 (45-117) U/L Total Protein 6.4 (6.4-8.2) gm/dl Albumin 2.9 L (3.4-5.0) gm/dl Globulin 3.5 (2.5-4.0) gm/dl Albumin/Globulin Ratio 0.8 L (0.9-2) Lipase 294 (73-393) U/L Imaging Data Radiologist's Impression: Radiology results as stated below per my review and the radiologist's interpretation: MRI LUMBAR SPINE WITHOUT IV CONTRAST CLINICAL HISTORY: Low back pain. Left lower extremity radiculopathy. COMPARISON STUDY: Radiographs of lumbar spine dated 01/08/2019. Abdominal CT dated 05/04/2017. TECHNIQUE: MRI of the lumbar spine is performed using various T1 and T2-weighted sequences in the axial and sagittal planes. IV contrast was not administered for this examination. The examination is degraded by motion artifact. Several sequences were repeated. FINDINGS: Lumbar spine: Marrow signal intensity is heterogeneous. Vertebral body height and alignment are maintained throughout the lumbar spine. Anterior and lateral marginal osteophytes are seen throughout. The transverse and spinous processes appear intact. There are bilateral pars defects at L5. Chronic degenerative endplate change seen at all levels between L2-L3 and L5-S1. Degenerative endplate edema is noted at L3-L4. No destructive osseous lesion is identified. Intervertebral discs: Degenerative disc desiccation is seen throughout the lumbar spine. There is mild loss of height at L2-L3 and L3-L4. Spinal cord: The visualized spinal cord is normal in morphology and signal intensity. The conus medullaris terminates at the level of T12. The nerve roots of the cauda equina are normal in morphology. L1-L2: There is minimal posterior disc bulge. The central canal is clear. Disc bulge contributes to mild bilateral neural foraminal stenosis. L2-L3: There is broad-based posterior disc bulge. In conjunction with hy pertrophy of the ligamentum flavum there is minimal acquired compromise of the central canal. The minimum AP diameter measures 9 mm. There is bilateral subarticular stenosis, right greater than left. This likely impinges on the exiting bilateral L2 nerve roots. This also abuts the transiting bilateral nerve roots. In conjunction with facet arthropathy there is mild to moderate bilateral neural foraminal stenosis. L3-L4: There is a disc herniation eccentric to the left with a superiorly extruded fragment. The disc fragment measures 2.2 cm, best seen on sagittal image #11. There is severe central canal stenosis identified at L3 and L3-L4. The minimum central canal diameter measures 5 mm. There is severe bilateral subarticular stenosis with probable impingement on the exiting bilateral L3 ne rve roots. In conjunction with facet arthropathy there is severe bilateral neural foraminal stenosis. There are bilateral facet joint effusions at this level. L4-L5: There is no significant acquired compromise of the central canal. Lateral disc bulge causes bilateral subarticular stenosis. This abuts the exiting bilateral L4 and the transiting bilateral L5 nerve roots. In conjunction with facet arthropathy there is mild bilateral neural foraminal stenosis. L5-S1: There is no significant acquired compromise of the central canal. There is bilateral subarticular stenosis, with possible impingement on the exiting bilateral L5 nerve roots. Facet arthropathy contributes to mild bilateral neural foraminal stenosis. Sacrum: The visualized sacrum is normal in morphology and signal intensity. Soft tissues: The paraspinous soft tissues are normal in appearance. The partially visualized retroperitoneal structures are grossly unremarkable but incompletely assessed. Cirrhotic liver morphology and splenomegaly are noted on the manager proposal sequence. IMPRESSION: 1. There is a disc herniation eccentric to the left at L3-L4 with a superiorly extruded fragment. This causes severe central canal stenosis at this level. 2. Multilevel lumbosacral spondylosis at additional levels as above. See discussion for detailed level by level analysis. 3. No destructive bony lesion is identified. Dictated: 03/01/2019 7:18 PM Transcribed: 03/01/2019 7:35 PM Danica [id number] [email or web address] Electronically signed by: Jamil Freedman M.D. 03/01/2019 7:36 PM LEFT FOOT 3 VIEWS CLINICAL HISTORY: Left foot pain. FINDINGS: 3 views of the left foot are obtained. No prior studies are available for comparison at the time of dictation. The skeletal structures are well mineralized. There is a subtle nondisplaced distracted fracture through the proximal shaft of the fifth proximal phalanx. No additional fracture is seen. Minimal degenerative change is seen at the first metatarsophalangeal joint. The overlying soft tissues are normal in appearance. There is mild atherosclerotic calcification of the regional arteries. IMPRESSION: Nondistracted fracture of the fifth proximal phalanx as above. Electronically signed by: Jamil Freedman M.D. 03/01/2019 5:27 PM Blood Pressure Blood Pressure Findings: Elevated blood pressure Blood Pressure Disposition: further management by hospitalist MDM Narrative The patient is a 59-year-old male who presented to the emergency department for an evaluation of left leg pain and back pain. The patient has had ongoing back pain for many months. He has been having episodes of his leg "buckling underneath" him. The patient presented to the emergency department today after his left leg became weak and he was unable to stand. The patient's history and physical exam appear to be consistent with a significant lumbar radiculopathy. MRI of the spine did reveal a very significant disc herniation with superior extrusion and central canal stenosis. The patient was treated with steroids in the emergency department. He was reevaluated multiple times. I discussed the patient's laboratory and radiographic studies with him. I also discussed his case with the on-call orthopedic product marketing specialist. I discussed his case with the on-call [facility] hospitalist group. They have agreed to evaluate the pat ient in the emergency department for further inpatient management and disposition. The patient may require surgery due to the degree of symptoms in his left leg as well as the findings on MRI. The patient was agreeable to this. Impression & Plan Lumbar disc herniation, Lumbar radiculopathy, Closed fracture of fifth toe of left foot, Weakness of left lower extremity Discharge Plan Visit Data Chief Complaint: Back Injury/Pain Stated Complaint: BACK PAIN, FALLS, TOE PAIN ED Provider: Gordy Maxwell Discharge Problem: Lumbar disc herniation, Lumbar radiculopathy, Closed fracture of fifth toe of left foot, Weakness of left lower extremity Patient Disposition: Being Evaluated by Hospitalist Forms Stand Alone Forms: My [facility] Prescriptions Prescriptions: No Action fluticasone propionate 50 mcg/actuation [place],Suspension 2 spray INTRANASAL DAILY PRN (Reason: Nasal Congestion) RF: 0 ondansetron HCl [Zofran] 4 mg Tablet 4 mg PO Q6H PRN (Reason: nausea/vomiting) RF: 0 potassium chloride 20 mEq Packet 20 meq PO Q2D RF: 0 albuterol sulfate [Ventolin HFA] 90 mcg/actuation Hfa Aerosol Inhaler 2 puff INHALATION Q4 PRN (Reason: Shortness Of Breath) RF: 0 duloxetine 60 mg capsule,delayed release(DR/EC) 60 mg PO DAILY RF: 0 lactulose [Kristalose] 10 gram Packet 10 g PO QAM RF: 0 methylprednisolone 4 mg tablets,dose pack 0 mg PO .DAILY/UD RF: 0 diclofenac sodium [Voltaren] 1 % Gel 2 g TOPICAL QID PRN (Reason: Pain) RF: 0 furosemide [Lasix] 40 mg Tablet 40 mg PO BID RF: 0 cyanocobalamin (vitamin B-12) [Vitamin B-12] 100 mcg Tablet 100 mcg PO Q2D RF: 0 valacyclovir [Valtrex] 1 gram Tablet 1,000 mg PO HS RF: 0 spironolactone 100 mg Tablet 100 mg PO BID RF: 0 thiamine HCl (vitamin B1) [Vitamin B-1] 100 mg Tablet 100 mg PO QAM RF: 0 omeprazole 40 mg Capsule,Delayed Release(Dr/Ec) 40 mg PO QAM RF: 0 meclizine 25 mg Tablet 25 mg PO TID PRN (Reason: Dizziness) RF: 0 folic acid 1 mg Tablet 1 mg PO QAM RF: 0 Xifaxan 550 mg Tablet 550 mg PO BID RF: 0 Referrals Referrals: Najma Garcia MD [Primary Care Provider] - Discharge Problem: Closed fracture of fifth toe of left foot Qualifiers: Encounter type: initial encounter Qualified Code(s): S92.502A - Displaced unspecified fracture of left lesser toe(s), initial encounter for closed fracture The scribe's documentation has been prepared under my direction and personally reviewed by me in its entirety. I confirm that the note above accurately reflects all work, treatment, procedures, and medical decision making performed by me.
[2019-03-01] MEDS ORDERED: SODIUM CHLORIDE 0.9% 500 ML IV SCH (17:00)
[2019-03-01 17:02] LABS: Hematocrit (blood only) 35.4 % (42-52); Hemoglobin 11.8 g/dL (14.0-18.0); Mean Corpuscular Hemoglobin 32.1 pg (25-34); Mean Corpuscular Hgb Conc 33.3 g/dL (32-36); Mean Corpuscular Volume 96.2 fL (80-100); RDW Coefficient of Variation 16.6 % (11.5-14.5); Red Blood Count 3.68 M/uL (4.7-6.1); White Blood Count 5.47 K/uL (4.8-10.8)
[2019-03-01] MEDS: fentaNYL citrate 100 MCG/2 ML VIAL IV PRN ×2 (17:05→18:20)
[2019-03-01 17:19] LABS: Albumin Level 2.9 gm/dl (3.4-5.0); BUN Creatinine Ratio 17.3 (10-20); Calcium 8.6 mg/dl (8.5-10.1); Creatinine Clr Calc Pharmacy 90.4 ml/min
[2019-03-01 17:20] LABS: Platelet Count 74 K/uL (130-400)
[2019-03-01 17:21] LABS: Albumin Globulin Ratio 0.8 (0.9-2); Bilirubin,Total 1.5 mg/dl (0.2-1); Globulin 3.5 gm/dl (2.5-4.0); Total Protein 6.4 gm/dl (6.4-8.2)
[2019-03-01 17:27] LABS: Basophils # (auto) 0.01 K/uL (0-0.2); Basophils % (auto) 0.2 %; Eosinophils # (auto) 0.05 K/uL (0-0.5); Eosinophils % (auto) 0.9 %; Immature Granulocytes # (auto) 0.01 K/uL (0.00-0.02); Immature Granulocytes % (auto) 0.2 %; Lymphocytes # (auto) 0.83 K/uL (1.2-3.4); Lymphocytes % (auto) 15.2 %; Monocytes # (auto) 0.73 K/uL (0.11-0.59); Monocytes % (auto) 13.3 %; Neutrophils # (auto) 3.84 K/uL (1.4-6.5); Neutrophils % (auto) 70.2 %
--- NOTE | 2019-03-01 17:28 | XRay Report ---
LEFT FOOT 3 VIEWS CLINICAL HISTORY: Left foot pain. FINDINGS: 3 views of the left foot are obtained. No prior studies are available for comparison at the time of dictation. The skeletal structures are well mineralized. There is a subtle nondisplaced dist racted fracture through the proximal shaft of the fifth proximal phalanx. No additional fracture is s een. Minimal degenerative change is seen at the first metatarsophalangeal joint. The overlying soft t issues are normal in appearance. There is mild atherosclerotic calcification of the regional arteries . IMPRESSION: Nondistracted fracture of the fifth proximal phalanx as above. Electronically signed by: Jamil Freedman M.D. 03/01/2019 5:27 PM
--- NOTE | 2019-03-01 19:37 | Magnetic Resonance Report ---
MRI LUMBAR SPINE WITHOUT IV CONTRAST CLINICAL HISTORY: Low back pain. Left lower extremity radiculopathy. COMPARISON STUDY: Radiographs of lumbar spine dated 01/08/2019. Abdominal CT dated 05/04/2017. TECHNIQUE: MRI of the lumbar spine is performed using various T1 and T2-weighted sequences in the axi al and sagittal planes. IV contrast was not administered for this examination. The examination is deg raded by motion artifact. Several sequences were repeated. FINDINGS: Lumbar spine: Marrow signal intensity is heterogeneous. Vertebral body height and alignment are maint ained throughout the lumbar spine. Anterior and lateral marginal osteophytes are seen throughout. The transverse and spinous processes appear intact. There are bilateral pars defects at L5. Chronic dege nerative endplate change seen at all levels between L2-L3 and L5-S1. Degenerative endplate edema is n oted at L3-L4. No destructive osseous lesion is identified. Intervertebral discs: Degenerative disc desiccation is seen throughout the lumbar spine. There is mil d loss of height at L2-L3 and L3-L4. Spinal cord: The visualized spinal cord is normal in morphology and signal intensity. The conus medul gigi terminates at the level of T12. The nerve roots of the cauda equina are normal in morphology. L1-L2: There is minimal posterior disc bulge. The central canal is clear. Disc bulge contributes to m ild bilateral neural foraminal stenosis. L2-L3: There is broad-based posterior disc bulge. In conjunction with hypertrophy of the ligamentum f lavum there is minimal acquired compromise of the central canal. The minimum AP diameter measures 9 m m. There is bilateral subarticular stenosis, right greater than left. This likely impinges on the exi ting bilateral L2 nerve roots. This also abuts the transiting bilateral nerve roots. In conjunction w ith facet arthropathy there is mild to moderate bilateral neural foraminal stenosis. L3-L4: There is a disc herniation eccentric to the left with a superiorly extruded fragment. The disc fragment measures 2.2 cm, best seen on sagittal image #11. There is severe central canal stenosis id entified at L3 and L3-L4. The minimum central canal diameter measures 5 mm. There is severe bilateral subarticular stenosis with probable impingement on the exiting bilateral L3 nerve roots. In conjunct ion with facet arthropathy there is severe bilateral neural foraminal stenosis. There are bilateral f acet joint effusions at this level. L4-L5: There is no significant acquired compromise of the central canal. Lateral disc bulge causes bi lateral subarticular stenosis. This abuts the exiting bilateral L4 and the transiting bilateral L5 ne rve roots. In conjunction with facet arthropathy there is mild bilateral neural foraminal stenosis. L5-S1: There is no significant acquired compromise of the central canal. There is bilateral subarticu lar stenosis, with possible impingement on the exiting bilateral L5 nerve roots. Facet arthropathy co ntributes to mild bilateral neural foraminal stenosis. Sacrum: The visualized sacrum is normal in morphology and signal intensity. Soft tissues: The paraspinous soft tissues are normal in appearance. The partially visualized retrope ritoneal structures are grossly unremarkable but incompletely assessed. Cirrhotic liver morphology an d splenomegaly are noted on the ssis architect sequence. IMPRESSION: 1. There is a disc herniation eccentric to the left at L3-L4 with a superiorly extruded fragment. Thi s causes severe central canal stenosis at this level. 2. Multilevel lumbosacral spondylosis at additional levels as above. See discussion for detailed leve l by level analysis. 3. No destructive bony lesion is identified. Dictated: 03/01/2019 7:18 PM Transcribed: 03/01/2019 7:35 PM Danica [id number] [email or web address] Electronically signed by: Jamil Freedman M.D. 03/01/2019 7:36 PM
[2019-03-01] MEDS ORDERED: PANTOprazole 40 MG TAB PO STA (20:36)
[2019-03-01] MEDS ORDERED: FAMOTIDINE 20MG IV PUSH 20 MG/5 ML SYR IV STA (20:36)
[2019-03-01] MEDS ORDERED: POLYETHYLENE (MIRALAX) 17 GM PACK PO PRN (21:26)
[2019-03-01] MEDS ORDERED: ACETAMINOPHEN 325 MG TAB PO PRN (21:26)
[2019-03-01] MEDS ORDERED: ONDANSETRON INJ 2 MG/ML 2 ML VIAL IV PRN (21:26)
[2019-03-01] MEDS ORDERED: D5W AND NSS 1,000 ML IV SCH (21:26)
[2019-03-01] MEDS ORDERED: DICLOFENAC SOD 1% GEL 100 GM TUBE EXT PRN (21:26)
[2019-03-01] MEDS ORDERED: ALBUTEROL HFA 8 GM INHALER INH PRN (21:26)
[2019-03-01] MEDS ORDERED: FLUTICASONE PROPIONATE NA SPR 16 GM BTL PRN (21:26)
[2019-03-01] MEDS ORDERED: ONDANSETRON 4 MG TAB PO PRN (21:26)
[2019-03-01] MEDS ORDERED: MECLIZINE HCL 25 MG TAB PO PRN (21:31)
[2019-03-01] MEDS: VALACYCLOVIR HCL 500 MG TABLET PO SCH (22:02)
[2019-03-01] MEDS: SPIRONOLACTONE 100 MG TAB PO SCH (22:03)
[2019-03-01] MEDS: FUROSEMIDE 40 MG TAB PO SCH (22:03)
[2019-03-01] MEDS: RIFAXIMIN 550 MG TABLET PO SCH (22:05)
[2019-03-01] MEDS: HYDROmorphone INJ 0.5 MG/0.5 ML SYR IV PRN (22:12)
--- NOTE | 2019-03-01 22:20 | History and Physical Report ---
DATE OF ADMISSION: 03/01/2019 CHIEF COMPLAINT: Severe back pain. HISTORY OF PRESENT ILLNESS: A 59-year-old male with past medical history significant for alcoholic liver cirrhosis and alcoholism who was in remission for the last 5 years. Smokes marijuana every twice a month, which helps his back pain. Quit drugs 30 years ago, history of hypoglycemia, hyperinsulinemia, history of esophageal varices, portal vein thrombosis, hypertension, portal hypertensive gastropathy, GERD, status post right hip replacement, peripheral polyneuropathy, chronic thrombocytopenia, recurrent vertigo, ambulatory dysfunction, anxiety, depression, lives in a rented house, walks with a cane outside, but at home he walks with a walker, having back pain since last about a year, follows with the PCP, generally uses heating pad or ice to his back in the morning and he was able to get around, but it is getting worse lately and recently started on prednisone but is not helping and today it did seem different when he tried to get up from the bed. He was not able to lift his left leg up and walk, he fell several times today and he had episode of nausea and he was diaphoretic and with severe excruciating pain in the back and decided to come to the ER. He received a dose of Decadron and fentanyl in the ER. Currently, pain is better. He has some decreased sensation in the left leg. Denies any bowel or bladder incontinence. Denies any fever, chills. Appetite is okay. No chest pain or shortness of breath. No cough. He had some headache, no blurred visions, no earache, no runny nose, has some sore throat, No dysphagia or odynophagia. He takes lactulose daily in the morning which helps in 3-4 bowel movements every day. He takes his diuretics which makes him micturate many times a day. Denies any burning micturition or blood in the urine or any black stools. Currently, resting comfortable and hemodynamically stable. ALLERGIES: No known drug allergies. PAST MEDICAL HISTORY: As mentioned above. PAST SURGICAL HISTORY: Abdominal paracentesis in 2013, right aspiration of the bursa, colonoscopy, dental surgery, EGDs, surgery on the right elbow, injection of sacroiliac joint in 2018, right total hip replacement in 10/2018. MEDICATIONS: The patient currently on albuterol 2 puffs every 4 hours p.r.n., vitamin B12 100 mcg every other day, diclofenac sodium 2 g topically q.i.d. p.r.n., Cymbalta 60 mg p.o. daily, Flonase 2 sprays intranasal daily p.r.n., folic acid 1 mg p.o. daily, Lasix 40 mg p.o. b.i.d., lactulose 10 grams p.o. a.m., meclizine 25 mg p.o. t.i.d. p.r.n., prednisone tapering dose, omeprazole 40 mg p.o. q.a.m., Zofran 4 mg p.o. q. 6 hours p.r.n., potassium 20 mEq p.o. every other day, spironolactone 100 mg p.o. b.i.d., vitamin B1 100 mg p.o. q.a.m., Valtrex 1000 mg p.o. at bedtime, Xifaxan 550 mg p.o. b.i.d. SOCIAL HISTORY: , currently living alone. Quit smoking in , smoked half pack a day for 15 years, currently snuffs tobacco. History of alcoholism, but last drink was in June 2013. Used to do drugs, but stopped in , 30 years ago. Currently smokes marijuana a couple of times a month. FAMILY HISTORY: Significant for father had diabetes. Mother has lymphoma. Sister had alcoholism. REVIEW OF SYMPTOMS: As per HPI. Rest of review of symptoms are negative. PHYSICAL EXAMINATION: GENERAL: The patient is of moderate build, not in acute distress. VITAL SIGNS: Temperature 37.3, pulse 76, respiratory rate 16, blood pressure 124/71, oxygen 97% room air. HEENT: No pallor, no icterus. Pupils equal, round, reactive to light. NECK: No JVD, no neck masses, no carotid bruits. Supple. CARDIOVASCULAR: S1, S2 heard, regular rate and rhythm, no murmur, no gallop. RESPIRATORY SYSTEM: Normal AP diameter. No accessory muscle use. No wheezing, no crackles. ABDOMEN: Soft, bowel sounds present, nontender. No distention. CENTRAL NERVOUS SYSTEM: Alert and oriented. Obeys commands. Speech is clear. Moves extremities, but decreased sensation in the left lower extremity and mild weakness in the left lower extremities. EXTREMITIES: Trace pedal edema present. MUSCULOSKELETAL: Straight leg raise positive on the left leg. LABORATORY DATA: WBC 5.4, hemoglobin 11.8, hematocrit 35.4, platelets 74. Sodium 139, potassium 4, chloride 109, bicarbonate 27, BUN 15, creatinine 0.8, serum glucose 98, calcium 8.6, total bilirubin 1.5, AST 63, ALT 52, alkaline phosphatase 90, lipase 294. Foot x-ray, nondisplaced fracture of the fifth proximal phalanx. Lumbar spine MRI with disc herniation, eccentric to the left at L3-L4 with a superiorly extended fragment. This causes severe central stenosis at this level. Multilevel lumbosacral spondylosis. No destructive bony lesions identified. ASSESSMENT AND PLAN: This 59-year-old male presents with severe back pain. 1. Severe back pain and some mild weakness in left lower extremity and also mild decreased sensation in left lower extremity, ambulatory dysfunction. MRI scans showing disc herniation, eccentric to left L3-L4 with a superior extruded fragment which is causing severe central canal stenosis at this level and also multilevel lumbosacral spondylosis. We going to admit the patient in the hospital. Received a dose of Decadron in the ER and also fentanyl. He was recently started on prednisone taper and last dose tomorrow as per patient which was not helping. We will admit to medical floor. We will hold on further steroids at this time and wait for the Ortho input. Ortho consulted and notified. IV Dilaudid p.r.n. PT/OT when stable. Await Ortho input. Monitor on medical floor. 2. History of alcoholic liver cirrhosis: Currently not drinking alcohol since last 5 years. Continue his home diuretics and lactulose and Xifaxan and monitor. 3. Gastroesophageal reflux disease. PPI 4. Depression. Continue Cymbalta. 5. History of portal hypertensive gastropathy, history of esophageal varices: Not on beta louis secondary to hypotension in the past.ON PPI 6. Chronic thrombocytopenia from his cirrhosis. We will monitor. 7. History of recent rectal bleeding in December after colonoscopy which showed hyperplastic polyp. There is a plan for repeat colonoscopy in 3 years. 8. Deep venous thrombosis prophylaxis, sequential compression devices for now. 9. Disposition: Admit to medical floor. Expect to discharge home and follow with family doctor. PT and OT prior to discharge. Social Service to help with discharge planning. Level 1 full code. MTDD
[2019-03-02] MEDS: HYDROmorphone INJ 0.5 MG/0.5 ML SYR IV PRN ×4 (01:13→23:33)
[2019-03-02 03:18] LABS: Appearance Urine Clear (Clear); Bilirubin Urine Negative (Negative); Blood Urine Negative (Negative); Color Urine Dark Yellow; Glucose Urine UA Negative (Negative); Ketones Urine Negative (Negative); Leukocyte Esterase Urine Negative (Negative); Nitrite Urine Negative (Negative); Protein Urine Negative (Negative); Specific Gravity Urine 1.026 (1.000-1.030); Urobilinogen Urine Negative (Negative); pH Urine 5.5 (4.5-7.5)
[2019-03-02 05:34] LABS: Hematocrit (blood only) 34.7 % (42-52); Hemoglobin 11.5 g/dL (14.0-18.0); Mean Corpuscular Hemoglobin 32.2 pg (25-34); Mean Corpuscular Hgb Conc 33.1 g/dL (32-36); Mean Corpuscular Volume 97.2 fL (80-100); RDW Coefficient of Variation 16.5 % (11.5-14.5); RDW Standard Deviation 58.4 fL (36.4-46.3); Red Blood Count 3.57 M/uL (4.7-6.1); White Blood Count 3.32 K/uL (4.8-10.8)
[2019-03-02 05:50] LABS: Lymphocytes # (auto) 0.21 K/uL (1.2-3.4); Lymphocytes % (auto) 6.3 %; Mean Platelet Volume 12.1 fL (7.4-10.4); Monocytes # (auto) 0.23 K/uL (0.11-0.59); Monocytes % (auto) 6.9 %; Neutrophils # (auto) 2.88 K/uL (1.4-6.5); Neutrophils % (auto) 86.8 %; Platelet Count 52 K/uL (130-400); Platelet Estimate Decreased (Normal)
[2019-03-02 05:53] LABS: BUN Creatinine Ratio 18.3 (10-20); Calcium 8.3 mg/dl (8.5-10.1); Creatinine Clr Calc Pharmacy 80.5 ml/min; Est GFR (African American) 96.2; Magnesium 2.1 mg/dl (1.8-2.4); Potassium 4.2 mmol/L (3.5-5.1)
--- NOTE | 2019-03-02 07:41 | Hospitalist Progress Note ---
Date of Service March 02, 2019 Subjective Addendum to hand p: Non displaced fracture of left fifth proximal phalanx on xr ay. Patient says when he fell today he injured his left foot but currently has no pain. Await ortho input. Results & Data Vital Signs (Past 12 Hours) Vital Signs Temp Pulse Pulse Resp BP BP Pulse Ox 03/01/19 22:53 37.0 C 72 16 123/69 96 03/01/19 21:31 37.1 C 81 18 142/73 H 96 03/01/19 21:17 71 18 124/71 97 03/01/19 19:56 124/71 97
[2019-03-02] MEDS: CYANOCOBALAMIN (VITAMIN B-12) 100 MCG TABLET PO SCH (07:56)
[2019-03-02] MEDS: RIFAXIMIN 550 MG TABLET PO SCH ×2 (07:56→20:27)
[2019-03-02] MEDS: LACTULOSE SYRUP 10 GM/15 ML BTL 960 ML PO SCH ×2 (07:56→08:52)
[2019-03-02] MEDS: PANTOprazole 40 MG TAB PO SCH (07:57)
[2019-03-02] MEDS: THIAMINE HCL 100 MG TAB PO SCH (07:57)
[2019-03-02] MEDS: POTASSIUM CHLORIDE PWD 20 MEQ PACK PO SCH (07:57)
[2019-03-02] MEDS: SPIRONOLACTONE 100 MG TAB PO SCH ×2 (07:57→20:26)
[2019-03-02] MEDS: FUROSEMIDE 40 MG TAB PO SCH ×3 (07:57→20:31)
[2019-03-02] MEDS: FOLIC ACID 1 MG TAB PO SCH (07:58)
[2019-03-02] MEDS ORDERED: DULOXETINE HCL 60 MG CAP PO SCH (09:00)
--- NOTE | 2019-03-02 09:02 | Orthopedic Consultation ---
Date of Consultation March 02, 2019 Assessment & Plan (1) Lumbar disc herniation: Images: His lumbar spine films were reviewed in detail plain x-rays MRI scan. Profound stenosis lumbar spine L3-4 he has a large disc herniation L3-4. He has significant compromise of the cauda equina he has no cauda equina syndrome Plan: We have gone over conservative care surgical care nonoperative care by to cover all her bases here today. I have analyzed him thoroughly the most appropriate professional and medical decision making as to address his problem surgically during this hospital stay. Believe it is inappropriate send the patient home the potential of significant consequences Explained to the patient my situation I will be here in [facility] for the next 6 weeks should allow good follow-up appointments appropriate care. We will make connections that he will have follow-up care as well with other community surgeons. He is pleased he is asked intelligent questions he would like us to proceed as he cannot continue with his current state of health (2) Lumbar radiculopathy: History of Present Illness Reason for Consultation: Back pain lower extremity difficulty dense weakness to the lower extremities. Falling several times over last several weeks History: Andrea is a pleasant gentleman he is 59 years of age. He has a profound problem of spinal stenosis and lower extremity difficulties with severe spinal stenosis of lumbar spine on top of which she has a disc herniation at L3- 4 compromising the cauda equina area nerve roots. Amazingly he has no bowel bladder consequences. I reviewed his history thoroughly and to make a long story shorter we will proceed with surgery while he is here at [facility] Attending Physician: Diomedes Preciado MD Allergies Allergy/AdvReac Type Severity Reaction Status Date / Time No Known Allergies Allergy Verified 03/01/19 18:21 Home Medications Home Medications Medication Instructions Recorded Confirmed Type Xifaxan 550 mg PO BID 11/04/17 03/01/19 History cyanocobalamin (vitamin B-12) 100 mcg PO Q2D 11/04/17 03/01/19 History [Vitamin B-12] folic acid 1 mg PO QAM 11/04/17 03/01/19 History furosemide [Lasix] 40 mg PO BID 11/04/17 03/01/19 History meclizine 25 mg PO TID PRN 11/04/17 03/01/19 History omeprazole 40 mg PO QAM 11/04/17 03/01/19 History spironolactone 100 mg PO BID 11/04/17 03/01/19 History thiamine HCl (vitamin B1) [Vitamin 100 mg PO QAM 11/04/17 03/01/19 History B-1] valacyclovir [Valtrex] 1,000 mg PO HS 11/04/17 03/01/19 History fluticasone propionate 2 spray INTRANASAL DAILY PRN 04/11/18 03/01/19 History ondansetron HCl [Zofran] 4 mg PO Q6H PRN 04/11/18 03/01/19 History albuterol sulfate [Ventolin HFA] 2 puff INHALATION Q4 PRN 04/30/18 03/01/19 History potassium chloride 20 meq PO Q2D 04/30/18 03/01/19 History duloxetine 60 mg PO DAILY 12/17/18 03/01/19 History diclofenac sodium [Voltaren] 2 g TOPICAL QID PRN 03/01/19 03/01/19 History lactulose [Kristalose] 10 g PO QAM 03/01/19 03/01/19 History methylprednisolone 0 mg PO .DAILY/UD 03/01/19 03/01/19 History Patient History Medical History Anxiety Chronic back pain Depression Genital herpes GERD (gastroesophageal reflux disease) Hearing deficit History of alcohol abuse History of anemia History of cirrhosis of liver D/T ALCOHOL History of colon polyps History of hepatitis C (Acute) Hx of ascites Hx of encephalopathy HEAPTIC Hx of esophageal varices Hx of gynecomastia Hx of thrombocytopenia Hypertension Osteoarthritis Portal hypertensive gastropathy Portal vein thrombosis Vertigo Surgical History History of tooth extraction all teeth removed History of total right hip arthroplasty Hx of decompression of ulnar nerve RIGHT Family History Father Diabetes Other No family history of adverse response to anesthesia Social History Preferred Language: Ivorian Communication Ability: Effective Soap Slabber Required: No Beliefs That Will Affect Care: None marital status: / Current Living Situation: Alone Current Living Situation Comment: [facility] s/o Feels Safe at Home: Yes Smoking Status: Former smoker Tobacco Type: smokeless tobacco ; Cigarettes Per Day: 1ppd x 2 years ; Do You Dip or Chew Tobacco: Yes (Smokes marijuana 2-3 times a month for back pain) ; Second Hand Exposure: Yes ; Tobacco Cessation Education Requested by Patient: No Hx Alcohol Use: No Hx Substance Use: Yes substance use type: marijuana Substance Use Type Other:: 2-3 times a month Last Used Substance: Days (ago) Last Used Substance Other:: 02/24/2019 Review of Systems Review of Systems: He denies any fever sweats chills weight loss gain Denies any chest pain palpitations No asthma wheezing shortness of breath currently No nausea vomiting or bowel bladder incontinence. Negative for urgency frequency dysuria Positive musculoskeletal back and lower extremity difficulty Admits to significant weakness to the lower extremities particularly the left leg and left quadriceps region Physical Exam Physical Exam: Eitel signs stable blood pressure 132/72. Pulse 68. Afebrile. HEENT examination essentially normal Lungs clear to auscultation no rales rhonchi wheezing Abdomen soft nontender Extremities and examined in detail he has no upper motor neuron pathology His weakness of quadriceps graded at 3/5 in the supine position. His leg gives out on him when he stands.. He cannot stand without the use of a walker his legs will completely give out on him He also reports difficulty with his right lower extremity. No weakness of dorsiflexion plantar flexion Results & Data Vital Signs (Past 12 Hours) Vital Signs Temp Pulse Pulse Resp BP BP Pulse Ox 03/02/19 08:25 36.8 C 68 18 132/72 98 03/01/19 22:53 37.0 C 72 16 123/69 96 03/01/19 21:31 37.1 C 81 18 142/73 H 96 03/01/19 21:17 71 18 124/71 97 PG Care Time/CCT Total # of Minutes Spent Total Time Spent with Patient: Total time spent is greater than 50% in coordination of care (as documented) at patient's floor/unit and/or counseling patient: Coding Level of Care Code 71715 Initial Inpt Care Lvl 3 Diagnoses Lumbar disc herniation M51.26 Lumbar radiculopathy M54.16
--- NOTE | 2019-03-02 11:28 | XRay Report ---
XR chest 1V portable HISTORY: 59 years-old Male preop clearance preoperative exam. No acute chest complaints COMPARISON: Acute abdominal series radiographs 12/17/2018 TECHNIQUE: Portable AP view of the chest FINDINGS: Cardiac mediastinal and hilar silhouettes are within normal limits. No pneumothorax, pleural effusion , focal airspace consolidation or overt pulmonary edema. Bones of the chest appear grossly intact. IMPRESSION: No acute process. ACT 112: Negative or not required by law. The above report was generated using voice recognition software. It may contain grammatical, syntax o r spelling errors. Electronically signed by: Eliceo Herrera M.D. 03/02/2019 11:27 AM
[2019-03-02] MEDS ORDERED: COUGH DROP (SUGAR FREE) LOZ 24 LOZ/1 BOX BUCCAL PRN (12:42)
--- NOTE | 2019-03-02 17:56 | Hospitalist Progress Note ---
Date of Service March 02, 2019 Assessment & Plan (1) Lumbar disc herniation: MR imaging as noted. Seen in consultation by Ortho Spine. Surgical intervention recommended. (2) Alcoholic cirrhosis: Compensated. INR 1.2. Chronic thrombocytopenia. Sober x several years. (3) Thrombocytopenia: Chronic, secondary to cirrhosis. (4) DVT prophylaxis: No anticoagulants due to thrombocytopenia. SCD's. Ambulate as able. (5) Discharge planning issues: Disposition to be determined. May need rehab. Family Medicine follow-up with Dr. Garcia. Subjective Recheck for severe back pain. Patient seen in their room around 1150. Ongoing severe low back pain with left sciatica and LLE weakness. No bowel or bladder dysfunction. Review of Systems: Constitutional- no fever. Cardiac- no chest pain. Pulmonary- no cough or SOB. GI- no nausea, vomiting, diarrhea, melena, hematochezia. - no urinary symptoms. Otherwise, as noted above. Physical Exam Constitutional: no acute distress Respiratory: no respiratory distress Auscultation: lungs clear to auscultation bilaterally Cardiovascular: Rate/Rhythm: regular rate and regular rhythm Vessels: no JVD Extremities: no calf tenderness and no edema Gastrointestinal (Abdomen): normal bowel sounds, soft, nontender, no hepatosplenomegaly Musculoskeletal: Spine: + lumbar spinal tenderness and + paraspinal tenderness Skin: no rashes, warm and dry Psychiatric: Orientation: alert and oriented x 3 Results & Data Vital Signs (Past 12 Hours) Vital Signs Temp Pulse Resp BP Pulse Ox 03/02/19 15:09 37.1 C 77 16 123/66 98 03/02/19 08:25 36.8 C 68 18 132/72 98 Laboratory Results Laboratory Results - last 24 hr 03/02/19 03/02/19 03/02/19 03:05 04:48 04:48 WBC 3.32 L RBC 3.57 L Hgb 11.5 L Hct 34.7 L MCV 97.2 MCH 32.2 MCHC 33.1 RDW Std Deviation 58.4 H RDW Coeff of Abhijit 16.5 H Plt Count 52 L MPV 12.1 H Immature Gran % (Auto) 0.0 Neut % (Auto) 86.8 Lymph % (Auto) 6.3 Grant % (Auto) 6.9 Eos % (Auto) 0.0 Baso % (Auto) 0.0 Immature Gran # (Auto) 0.00 Neut # (Auto) 2.88 Lymph # (Auto) 0.21 L Grant # (Auto) 0.23 Eos # (Auto) 0.00 Baso # (Auto) 0.00 Platelet Estimate Decreased L Sodium 139 Potassium 4.2 Chloride 109 H Carbon Dioxide 25 Anion Gap 5.0 BUN 18 Creatinine 0.99 Est Cr Clr Drug Dosing 80.5 Est GFR ( Amer) 96.2 Est GFR (Non-Af Amer) 83.0 BUN/Creatinine Ratio 18.3 Glucose 157 H Calcium 8.3 L Magnesium 2.1 Urine Color Dark Yellow Urine Appearance Clear Urine pH 5.5 Ur Specific [place] 1.026 Urine Protein Negative Urine Glucose (UA) Negative Urine Ketones Negative Urine Blood Negative Urine Nitrite Negative Urine Bilirubin Negative Urine Urobilinogen Negative Ur Leukocyte Esterase Negative Diagnostic Findings PORTABLE CHEST X-RAY FINDINGS: Cardiac mediastinal and hilar silhouettes are within normal limits. No pneumothorax, pleural effusion, focal airspace consolidation or overt pulmonary edema. Bones of the chest appear grossly intact. IMPRESSION: No acute process. ACT 112: Negative or not required by law. The above report was generated using voice recognition software. It may contain grammatical, syntax or spelling errors. Electronically signed by: Eliceo Herrera M.D. MRI LUMBAR SPINE 03/01/19 IMPRESSION: 1. There is a disc herniation eccentric to the left at L3-L4 with a superiorly extruded fragment. This causes severe central canal stenosis at this level. 2. Multilevel lumbosacral spondylosis at additional levels as above. See discussion for detailed level by level analysis. 3. No destructive bony lesion is identified. Electronically signed by: Jamil Freedman M.D.
--- NOTE | 2019-03-02 18:15 | Electrocardiogram Report ---
Test Reason : Blood Pressure : / mmHG Vent. Rate : 064 BPM Atrial Rate : 064 BPM P-R Int : 152 ms QRS Dur : 082 ms QT Int : 414 ms P-R-T Axes : 066 057 067 degrees QTc Int : 427 ms Normal sinus rhythm Low voltage QRS Abnormal ECG When compared with ECG of 31-OCT-2018 13:19, No significant change was found Confirmed by Rey Edwards ([id number]) on 03/02/2019 6:15:18 PM Referred By: REFERRED SELF Confirmed By:Jac Edwards
[2019-03-02] MEDS: DULOXETINE HCL 60 MG CAP PO SCH (20:26)
[2019-03-02] MEDS: VALACYCLOVIR HCL 500 MG TABLET PO SCH (20:26)
[2019-03-03] MEDS: HYDROmorphone INJ 0.5 MG/0.5 ML SYR IV PRN (08:38)
[2019-03-03] MEDS ORDERED: MIDAZOLAM HCL 1 MG/ML 2ML VIAL ONE (09:10)
[2019-03-03] MEDS ORDERED: fentaNYL citrate 100 MCG/2 ML VIAL ONE (09:10)
--- NOTE | 2019-03-03 09:40 | History & Physical Bridge Note ---
Date of Service March 03, 2019 History & Physical Bridge Note I have examined the patient, reviewed the History & Physical and in the interval since the performance of the History & Physical I have noted the following changes of clinical significance: no changes noted
[2019-03-03] MEDS ORDERED: THROMBIN FOR SOLN 20000 UNIT KIT ONE (10:01)
[2019-03-03] MEDS ORDERED: BACITRACIN INJ 50,000 UNIT VIAL ONE (10:01)
[2019-03-03] MEDS ORDERED: BUPIVACAINE/EPINEPHRINE 0.25% 1:200,000 30 ML VIAL ONE (10:01)
[2019-03-03] MEDS ORDERED: GELATIN SPONGE SZ 100 ONE ×2 (10:01→11:44)
[2019-03-03] MEDS ORDERED: VANCOMYCIN HCL 1000MG/20ML VIAL ONE (10:01)
[2019-03-03] MEDS ORDERED: CEFAZOLIN 2000MG 2,000 MG/15 ML SYR IV ONE (10:16)
[2019-03-03] MEDS: FUROSEMIDE 40 MG TAB PO SCH ×2 (10:17→16:47)
[2019-03-03] MEDS: LACTULOSE SYRUP 10 GM/15 ML BTL 960 ML PO SCH (10:17)
--- NOTE | 2019-03-03 10:17 | Anesthesiology Consultation ---
Date of Service March 03, 2019 Assessment & Plan Chart Review Chart Review: Acceptable Risk for Surgery Consults Requested none History Surgery Operation Date: 03/03/19 10:30 Proposed Procedures p L3-L4 Decompression and Fusion - Diomedes Newman DO Height/Weight Height: 5 ft 6 in Weight: 81.4 kg Allergies Allergy/AdvReac Type Severity Reaction Status Date / Time No Known Allergies Allergy Verified 03/01/19 18:21 Medications Home Medications Medication Instructions Recorded Confirmed Last Taken Xifaxan 550 mg PO BID 11/04/17 03/01/19 12/16/18 08:00 cyanocobalamin (vitamin B-12) 100 mcg PO Q2D 11/04/17 03/01/19 12/16/18 [Vitamin B-12] folic acid 1 mg PO QAM 11/04/17 03/01/19 12/16/18 furosemide [Lasix] 40 mg PO BID 11/04/17 03/01/19 12/16/18 08:00 meclizine 25 mg PO TID PRN 11/04/17 03/01/19 10/30/18 omeprazole 40 mg PO QAM 11/04/17 03/01/19 12/16/18 spironolactone 100 mg PO BID 11/04/17 03/01/19 12/16/18 08:00 thiamine HCl (vitamin B1) [Vitamin 100 mg PO QAM 11/04/17 03/01/19 12/16/18 08:00 B-1] valacyclovir [Valtrex] 1,000 mg PO HS 11/04/17 03/01/19 12/15/18 fluticasone propionate 2 spray INTRANASAL DAILY PRN 04/11/18 03/01/19 10/22/18 ondansetron HCl [Zofran] 4 mg PO Q6H PRN 04/11/18 03/01/19 12/09/18 albuterol sulfate [Ventolin HFA] 2 puff INHALATION Q4 PRN 04/30/18 03/01/19 12/17/18 potassium chloride 20 meq PO Q2D 04/30/18 03/01/19 02/28/19 duloxetine 60 mg PO DAILY 12/17/18 03/01/19 Unknown diclofenac sodium [Voltaren] 2 g TOPICAL QID PRN 03/01/19 03/01/19 Unknown lactulose [Kristalose] 10 g PO QAM 03/01/19 03/01/19 Unknown methylprednisolone 0 mg PO .DAILY/UD 03/01/19 03/01/19 Unknown Active Medications Generic Name Dose Route Start Last Admin Trade Name Freq PRN Reason Stop Dose Admin Cyanocobalamin 100 mcg 03/02/19 09:00 03/02/19 07:56 Vitamin B-12 PO 04/01/19 08:59 100 mcg Q2D@0900 AMBER Administration Duloxetine HCl 60 mg 03/02/19 21:00 03/02/19 20:26 Cymbalta PO 04/01/19 20:59 60 mg HS AMBER Administration Folic Acid 1 mg 03/02/19 09:00 03/02/19 07:58 Folvite PO 04/01/19 08:59 1 mg QAM AMBER Administration Hydromorphone HCl 0.5 mg 03/01/19 21:26 03/03/19 08:38 Dilaudid IV 03/15/19 21:25 0.5 mg Q3H PRN Administration Pain Lactulose 10 gm 03/02/19 09:00 03/02/19 08:52 Chronulac PO 04/01/19 08:59 Not Given QAM AMBER Pantoprazole Sodium 40 mg 03/02/19 09:00 03/02/19 07:57 Protonix PO 04/01/19 08:59 40 mg QAM AMBER Administration Potassium Chloride 20 meq 03/02/19 09:00 03/02/19 07:57 Klor-Con Pwd PO 04/01/19 08:59 20 meq Q2D@0900 AMBER Administration Rifaximin 550 mg 03/01/19 21:26 03/02/19 20:27 Xifaxan PO 03/31/19 21:25 550 mg BID AMBER Administration Spironolactone 100 mg 03/01/19 21:26 03/02/19 20:26 Aldactone PO 03/31/19 21:25 100 mg BID AMBER Administration Thiamine HCl 100 mg 03/02/19 09:00 03/02/19 07:57 Vitamin B-1 PO 04/01/19 08:59 100 mg QAM AMBER Administration Valacyclovir HCl 1,000 mg 03/01/19 21:26 03/02/19 20:26 Valtrex PO 03/31/19 21:25 1,000 mg HS AMBER Administration NPO Date Last Intake of Fluids: 03/02/19 Time Last Intake of Fluids: 23:00 Date Last Intake of Solids: 03/02/19 Time Last Intake of Solids: 22:00 Past Medical History Medical History Anxiety Chronic back pain Depression Genital herpes GERD (gastroesophageal reflux disease) Hearing deficit History of alcohol abuse History of anemia History of cirrhosis of liver D/T ALCOHOL History of colon polyps History of hepatitis C (Acute) Hx of ascites Hx of encephalopathy HEAPTIC Hx of esophageal varices Hx of gynecomastia Hx of thrombocytopenia Hypertension Osteoarthritis Portal hypertensive gastropathy Portal vein thrombosis Vertigo Past Family History Family History Father Diabetes Other No family history of adverse response to anesthesia Past Surgical History Surgical History History of tooth extraction all teeth removed History of total right hip arthroplasty Hx of decompression of ulnar nerve RIGHT Social History Smoking Status: Former smoker tobacco type: smokeless tobacco Smoking cigarettes per day: 1ppd x 2 years Do You Dip or Chew Tobacco: Yes (Smokes marijuana 2-3 times a month for back pain) Hx Alcohol Use: No Alcohol type: beer Alcohol Intake Frequency Comment: Quit 5 years ago Hx Substance Use: Yes substance use type: marijuana Substance Use Type Other:: 2-3 times a month Last Used Substance: Days (ago) Last Used Substance Other:: 02/24/2019 Physical Exam Vital Signs Last Vital Signs Temp 36.9 C 03/03/19 10:06 Pulse 69 03/03/19 10:06 Resp 18 03/03/19 10:06 BP 139/75 03/03/19 10:06 Pulse Ox 96 03/03/19 10:06 Testing Laboratory Results 03/02/19 04:48 03/02/19 04:48 Urine Color Dark Yellow 03/02/19 03:05 Urine Appearance Clear (Clear) 03/02/19 03:05 Urine pH 5.5 (4.5-7.5) 03/02/19 03:05 Ur Specific [place] 1.026 (1.000-1.030) 03/02/19 03:05 Urine Protein Negative (Negative) 03/02/19 03:05 Urine Glucose (UA) Negative (Negative) 03/02/19 03:05 Urine Ketones Negative (Negative) 03/02/19 03:05 Urine Nitrite Negative (Negative) 03/02/19 03:05 Ur Leukocyte Esterase Negative (Negative) 03/02/19 03:05
[2019-03-03] MEDS: SPIRONOLACTONE 100 MG TAB PO SCH ×2 (10:18→21:38)
[2019-03-03] MEDS ORDERED: CEFAZOLIN 2,000 MG/15 ML IV PUSH IV ONE (10:18)
[2019-03-03] MEDS: RIFAXIMIN 550 MG TABLET PO SCH ×2 (10:19→21:38)
[2019-03-03] MEDS ORDERED: PROMETHAZINE HCL 12.5 MG in SODIUM CHLORIDE 0.9% 50 ML IV PRN ×2 (10:20→15:53)
[2019-03-03] MEDS ORDERED: KETOROLAC 30 MG/ML VIAL IV PRN (10:20)
[2019-03-03] MEDS ORDERED: ONDANSETRON INJ 2 MG/ML 2 ML VIAL IV PRN ×2 (10:20→15:53)
[2019-03-03] MEDS ORDERED: HYDROmorphone INJ 2 MG/ML SYR/VIAL IV PRN (10:20)
[2019-03-03] MEDS ORDERED: METOCLOPRAMIDE HCL INJ 5 MG/ML 2 ML VIAL IV PRN (10:20)
[2019-03-03] MEDS ORDERED: ePHEDrine sulfate 50 MG/ML AMP IV PRN (10:20)
[2019-03-03] MEDS ORDERED: DEXAMETHASONE SOD INJ 4 MG/ML VIAL IV PRN (10:20)
[2019-03-03] MEDS ORDERED: ATROPINE SULFATE 0.1 MG/ML 10ML SYR IV PRN (10:20)
[2019-03-03] MEDS ORDERED: fentaNYL citrate 100 MCG/2 ML VIAL IV PRN (10:20)
[2019-03-03] MEDS ORDERED: NEOSTIGMINE METHYLSULFATE 5 MG/5 ML SYR ONE (11:06)
[2019-03-03] MEDS ORDERED: LARYING-O-JET KIT (LTA) ONE (11:06)
[2019-03-03] MEDS ORDERED: DEXAMETHASONE SOD INJ 4 MG/ML VIAL ONE (11:06)
[2019-03-03] MEDS ORDERED: ROCURONIUM BROMIDE 10 MG/ML 5 ML VIAL ONE (11:06)
[2019-03-03] MEDS ORDERED: ePHEDrine sulfate 50 MG/ML SYR ONE (11:06)
[2019-03-03] MEDS ORDERED: ONDANSETRON INJ 2 MG/ML 2 ML VIAL ONE (11:06)
[2019-03-03] MEDS ORDERED: PROPOFOL IV EMULSION 10 MG/ML 20 ML VIAL IV ONE (11:06)
[2019-03-03] MEDS ORDERED: GLYCOPYRROLATE 0.2 MG/ML VIAL ONE (11:06)
[2019-03-03] MEDS ORDERED: LIDOCAINE HCL 2% 2 ML VIAL/AMP(20MG/ML) INFIL ONE (11:06)
[2019-03-03] MEDS ORDERED: HYDROmorphone INJ 2 MG/ML SYR/VIAL ONE (11:07)
[2019-03-03] MEDS ORDERED: SODIUM CHLORIDE 0.9% 250 ML IV PRN (11:24)
[2019-03-03] MEDS ORDERED: FLOSEAL HEMOSTATIC MATRIX 10ML TOP ONE (12:32)
--- NOTE | 2019-03-03 13:01 | Post Operative Brief Note ---
PG Immediate Post Op with CF Date of Surgery March 03, 2019 Pre & Post Diagnosis Operation Date: 03/03/19 10:30 Pre-Op Diagnosis: Lumbar disc herniation Post-Op Diagnosis: Lumbar disc herniation I identified the patient and participated in the time-out.: Yes Procedure Operation Date: 03/03/19 10:30 Actual Procedures p L3-L4 Decompression and Fusion, Discectomy(Not Applicable) - Diomedes Newman DO Surgeon Diomedes Newman DO Brush Loader And Handle Attacher Coy minor Estimated Blood Loss 300 Findings Consistent with Post-Op Diagnosis Specimens Specimen Description: none Drains Reyes Catheter and Hemovac Drain (10 fr single trocar) Disposition Accompanied Patient To Recovery: Yes Overlapping Procedure I was immediately available: during the entire case.
--- NOTE | 2019-03-03 13:05 | Operative Report ---
PG Post Operative Report Pre & Post Diagnosis Operation Date: 03/03/19 10:30 Pre-Op Diagnosis: Lumbar disc herniation Post-Op Diagnosis: Lumbar disc herniation I identified the patient and participated in the time-out.: Yes Procedure Operation Date: 03/03/19 10:30 Actual Procedures p L3-L4 Decompression and Fusion, Discectomy(Not Applicable) - Diomedes Newman DO Surgeon Diomedes Newman DO Car Groomer Coy minor Estimated Blood Loss 300 Findings Consistent with Post-Op Diagnosis Specimens No specimens Drains Hemovac Anesthesia Type General Disposition Accompanied Patient To Recovery: Yes Indications Profound pain, inability to stand or walk unaided, decreased quadriceps strength, multiple falls Description of Procedure Procedure: Patient was taken to the operating room a general intubated anesthetic provide the patient. Reyes catheter administered placed prone on the Norm table he was first scrubbed prepped draped sterile. Normal timeout derrick en. We made a skin incision made a fascial incision we came down on the lamina and the facet joints. As his platelets were low we used multiple techniques meticulously got all leading surfaces controlled. Approximately 30 minutes into the procedure we ordered transfusion of 2 packs of platelets. We carefully dissected free the neural structures and a classic laminectomy of 3 classic laminectomy at 4 me partial facetectomy. Was profound redundancy of the ligamentum flavum this was resected massive herniation L3-4 on the left that had migrated up into the L3 nerve root total aggregate estimated to be 2 cm x 2 cm x 1 cm in size. I was pleased with the decompression procedure performed no evidence of any injury to the neurovascular structures Patient had a low-grade spondylolisthesis. We sacrificed all the facet joints for the most part. I felt he had very little structural integrity and was essentially unstable. I use the pedicle screw system safely getting pedicle screws into 3 and 4 bilaterally. Is controlled the spondylolisthesis and spinal segment. Locked down the construct. Then bone grafted out of the transverse processes with demineralized bone matrix initiate the spinal fusion implants used were the [employer] Estimated blood loss 300 cc No apparent intraoperative complications. Sponge and needle count was correct at the close Implants used [employer] Bone use demineralized bone matrix, no autograft I attest to the content of the Intraoperative Record and any orders documented therein. Any exceptions are noted below.
[2019-03-03 13:40] LABS: Hematocrit (blood only) 35.3 % (42-52); Hemoglobin 11.8 g/dL (14.0-18.0); Mean Corpuscular Hemoglobin 32.9 pg (25-34); Mean Corpuscular Hgb Conc 33.4 g/dL (32-36); Mean Corpuscular Volume 98.3 fL (80-100); Mean Platelet Volume 10.9 fL (7.4-10.4); Platelet Count 94 K/uL (130-400); RDW Coefficient of Variation 16.6 % (11.5-14.5); RDW Standard Deviation 59.7 fL (36.4-46.3); Red Blood Count 3.59 M/uL (4.7-6.1)
[2019-03-03] MEDS: THIAMINE HCL 100 MG TAB PO SCH (13:41)
[2019-03-03] MEDS: PANTOprazole 40 MG TAB PO SCH (13:41)
[2019-03-03] MEDS: FOLIC ACID 1 MG TAB PO SCH (13:41)
--- NOTE | 2019-03-03 13:48 | Fluoroscopy Report ---
FL spine 1V any level CLINICAL HISTORY: L3-L4 Decompression and Fusion COMPARISON STUDY: 01/08/2019 FLUOROSCOPY TIME: 13 seconds. NUMBER OF FLUOROSCOPIC IMAGES: 2 FINDINGS: 2 lateral fluoroscopic spot images are provided for interpretation. The first demonstrates a metallic probe projected over the posterior aspect of the L3-4 disc. The second demonstrates consec utive level dual pedicle screws. Exact numbering is difficult due to the limited [id number] but th is appears to be at the L3-4 level. IMPRESSION: Intraoperative fluoroscopic spot images obtained during an L3-4 spinal decompression and fusion. ACT 112: Negative or not required by law. Electronically signed by: Layo Murillo M.D. 03/03/2019 1:47 PM
--- NOTE | 2019-03-03 13:56 | Anesthesiology Progress Note ---
Date of Service March 03, 2019 Anesthesia Post Procedure Vital Signs Vital Signs: Temp Pulse Pulse Resp BP Pulse Ox 03/03/19 13:50 112 H 13 175/95 H 99 03/03/19 13:40 110 H 14 211/95 H 97 03/03/19 13:30 111 H 14 219/105 H 97 03/03/19 13:20 110 H 17 173/97 H 95 03/03/19 13:10 110 H 17 174/98 H 96 03/03/19 13:04 36.4 C L 113 H 18 205/97 H 99 03/03/19 10:06 36.9 C 69 18 139/75 96 03/03/19 07:48 36.7 C 69 16 135/68 95 03/02/19 23:20 36.7 C 73 18 133/67 95 03/02/19 15:09 37.1 C 77 16 123/66 98 Pain Intensity Back: Pain Intensity: 8 Transfer of Care Handoff Completed per policy Notes Mental Status: alert / awake / arousable and participated in evaluation Patient Amnestic to Procedure: Yes Nausea / Vomiting: adequately controlled Pain: adequately controlled Airway Patency, RR, SpO2: stable & adequate BP & HR: stable & adequate Hydration State: stable & adequate Anesthetic Complications: no major complications apparent
[2019-03-03 14:00] LABS: Basophils # (auto) 0.01 K/uL (0-0.2); Basophils % (auto) 0.1 %; Eosinophils # (auto) 0.03 K/uL (0-0.5); Eosinophils % (auto) 0.2 %; Immature Granulocytes # (auto) 0.05 K/uL (0.00-0.02); Immature Granulocytes % (auto) 0.4 %; Lymphocytes # (auto) 1.43 K/uL (1.2-3.4); Lymphocytes % (auto) 11.6 %; Monocytes # (auto) 1.13 K/uL (0.11-0.59); Monocytes % (auto) 9.2 %; Neutrophils # (auto) 9.65 K/uL (1.4-6.5); Neutrophils % (auto) 78.5 %
[2019-03-03] MEDS ORDERED: SOD PHOSPHATE/SOD BIPHOSPHATE ENEMA 132 ML BTL PR PRN (15:53)
[2019-03-03] MEDS ORDERED: DO NOT ADMINISTER FLU VACCINE PRN (15:53)
[2019-03-03] MEDS ORDERED: ONDANSETRON 4 MG OD TAB PO PRN (15:53)
[2019-03-03] MEDS ORDERED: HYDROmorphone INJ 0.5 MG/0.5 ML SYR IV PRN (15:53)
[2019-03-03] MEDS ORDERED: FAMOTIDINE 20 MG TAB PO PRN (15:53)
[2019-03-03] MEDS ORDERED: MAGNESIUM HYDROXIDE SUSP 30 ML UDC PO PRN (15:53)
[2019-03-03] MEDS ORDERED: DO NOT ADMINISTER PNEUMOCOCCAL VACCINE PRN (15:53)
[2019-03-03] MEDS ORDERED: ACETAMINOPHEN 1,000 MG/100 ML VIAL IV PRN (15:53)
[2019-03-03] MEDS ORDERED: NALOXONE HCL 0.4 MG/1 ML VIAL/CARP IV PRN (15:53)
[2019-03-03] MEDS ORDERED: ALUMINUM/MAGNESIUM SUSP 30 ML UDC PO PRN (15:53)
[2019-03-03] MEDS ORDERED: bisacodyL 10 MG SUPP PR PRN (15:53)
[2019-03-03] MEDS: SODIUM CHLORIDE 0.9% 1000ML 1,000 ML IV SCH (16:39)
[2019-03-03] MEDS: KETOROLAC 30 MG/ML VIAL IV SCH ×2 (16:48→22:10)
[2019-03-03] MEDS: CEFAZOLIN 2000MG 2,000 MG/15 ML SYR IV SCH (18:01)
--- NOTE | 2019-03-03 20:04 | Hospitalist Progress Note ---
Date of Service March 03, 2019 Assessment & Plan (1) Lumbar disc herniation: MR imaging as noted. Seen in consultation by Ortho Spine. Surgical intervention recommended. Lumbar decompression performed by Dr. Newman. (2) Alcoholic cirrhosis: Compensated. INR 1.2. Chronic thrombocytopenia. Sober x several years. (3) Thrombocytopenia: Chronic, secondary to cirrhosis. (4) DVT prophylaxis: No anticoagulants due to thrombocytopenia. SCD's. Ambulate as able. (5) Discharge planning issues: Disposition to be determined. May need rehab. Family Medicine follow-up with Dr. Garcia. Subjective Recheck for severe back pain. Patient seen in their room around 1520. Underwent lumbar decompression this morning. Sedated postop. Review of Systems: Unable to obtain due to sedation. Physical Exam Constitutional: no acute distress Respiratory: no respiratory distress Auscultation: + rhonchi (few) Cardiovascular: Rate/Rhythm: regular rate and regular rhythm Vessels: no JVD Extremities: no calf tenderness and no edema Gastrointestinal (Abdomen): normal bowel sounds, soft, nontender, no hepatosplenomegaly Musculoskeletal: SCD's applied. Skin: no rashes, warm and dry Psychiatric: Orientation: + not alert (sedated) Results & Data Vital Signs (Past 12 Hours) Vital Signs Temp Pulse Pulse Resp BP BP Pulse Ox 03/03/19 17:35 36.8 C 67 18 130/69 96 03/03/19 17:27 37.1 C 66 16 124/58 L 99 03/03/19 16:37 36.8 C 72 16 149/73 H 97 03/03/19 15:44 36.8 C 70 16 146/76 H 95 03/03/19 15:06 36.3 C L 84 20 169/83 H 96 03/03/19 14:35 36.7 C 76 12 140/66 94 03/03/19 14:00 36.6 C 107 H 19 165/89 H 97 03/03/19 13:50 112 H 13 175/95 H 99 03/03/19 13:40 110 H 14 211/95 H 97 03/03/19 13:30 111 H 14 219/105 H 97 03/03/19 13:20 110 H 17 173/97 H 95 03/03/19 13:10 110 H 17 174/98 H 96 03/03/19 13:04 36.4 C L 113 H 18 205/97 H 99 03/03/19 10:06 36.9 C 69 18 139/75 96 Laboratory Results 03/03/19 13:20 03/02/19 04:48
[2019-03-03] MEDS: DOCUSATE SODIUM/SENNA 50/8.6MG TAB PO SCH (21:38)
[2019-03-03] MEDS: VALACYCLOVIR HCL 500 MG TABLET PO SCH (21:39)
[2019-03-03] MEDS: DULOXETINE HCL 60 MG CAP PO SCH (21:39)
[2019-03-04] MEDS ORDERED: Nursing to Pharmacy Communication ONE (02:48)
[2019-03-04] MEDS: CEFAZOLIN 2000MG 2,000 MG/15 ML SYR IV SCH (02:51)
[2019-03-04] MEDS: KETOROLAC 30 MG/ML VIAL IV SCH ×2 (04:52→10:25)
[2019-03-04 05:04] LABS: Hematocrit (blood only) 29.3 % (42-52); Hemoglobin 9.7 g/dL (14.0-18.0); Mean Corpuscular Hemoglobin 32.2 pg (25-34); Mean Corpuscular Hgb Conc 33.1 g/dL (32-36); Mean Corpuscular Volume 97.3 fL (80-100); RDW Coefficient of Variation 16.3 % (11.5-14.5); RDW Standard Deviation 58.2 fL (36.4-46.3); Red Blood Count 3.01 M/uL (4.7-6.1); White Blood Count 6.64 K/uL (4.8-10.8)
[2019-03-04 05:06] LABS: Mean Platelet Volume 10.9 fL (7.4-10.4); Platelet Count 57 K/uL (130-400)
[2019-03-04 05:21] LABS: BUN Creatinine Ratio 26.3 (10-20); Calcium 7.6 mg/dl (8.5-10.1); Creatinine Clr Calc Pharmacy 83.9 ml/min; Est GFR (African American) 101.1; Est GFR (Non-African American) 87.3; Potassium 4.3 mmol/L (3.5-5.1)
[2019-03-04] MEDS: SODIUM CHLORIDE 0.9% 1000ML 1,000 ML IV SCH (05:27)
[2019-03-04] MEDS: POLYETHYLENE (MIRALAX) 17 GM PACK PO SCH ×4 (05:28→23:38)
[2019-03-04 05:31] LABS: Immature Granulocytes # (auto) 0.02 K/uL (0.00-0.02); Immature Granulocytes % (auto) 0.3 %; Lymphocytes # (auto) 0.59 K/uL (1.2-3.4); Lymphocytes % (auto) 8.9 %; Monocytes # (auto) 1.03 K/uL (0.11-0.59); Monocytes % (auto) 15.5 %; Neutrophils % (auto) 75.3 %
--- NOTE | 2019-03-04 07:53 | Anesthesiology Progress Note ---
Date of Service March 04, 2019 Anesthesia Post Procedure Vital Signs Vital Signs: Temp Pulse Pulse Resp BP BP Pulse Ox 03/04/19 02:30 37.1 C 84 16 136/71 96 03/03/19 23:25 36.8 C 70 16 109/56 L 93 03/03/19 21:37 106/59 L 03/03/19 20:00 36.6 C 75 16 117/58 L 93 03/03/19 17:35 36.8 C 67 18 130/69 96 03/03/19 17:27 37.1 C 66 16 124/58 L 99 03/03/19 16:37 36.8 C 72 16 149/73 H 97 03/03/19 15:44 36.8 C 70 16 146/76 H 95 03/03/19 15:06 36.3 C L 84 20 169/83 H 96 03/03/19 14:35 36.7 C 76 12 140/66 94 03/03/19 14:00 36.6 C 107 H 19 165/89 H 97 03/03/19 13:50 112 H 13 175/95 H 99 03/03/19 13:40 110 H 14 211/95 H 97 03/03/19 13:30 111 H 14 219/105 H 97 03/03/19 13:20 110 H 17 173/97 H 95 03/03/19 13:10 110 H 17 174/98 H 96 03/03/19 13:04 36.4 C L 113 H 18 205/97 H 99 03/03/19 10:06 36.9 C 69 18 139/75 96 Pain Intensity Back: Pain Intensity: 0 Notes Mental Status: alert / awake / arousable and participated in evaluation Nausea / Vomiting: adequately controlled Pain: adequately controlled Airway Patency, RR, SpO2: stable & adequate BP & HR: stable & adequate Hydration State: stable & adequate
[2019-03-04] MEDS: FOLIC ACID 1 MG TAB PO SCH (09:30)
[2019-03-04] MEDS: SPIRONOLACTONE 100 MG TAB PO SCH ×2 (09:30→20:19)
[2019-03-04] MEDS: POTASSIUM CHLORIDE PWD 20 MEQ PACK PO SCH (09:30)
[2019-03-04] MEDS: THIAMINE HCL 100 MG TAB PO SCH (09:31)
[2019-03-04] MEDS: FUROSEMIDE 40 MG TAB PO SCH ×2 (09:31→16:15)
[2019-03-04] MEDS: RIFAXIMIN 550 MG TABLET PO SCH ×2 (09:31→20:19)
[2019-03-04] MEDS: CYANOCOBALAMIN (VITAMIN B-12) 100 MCG TABLET PO SCH (09:31)
[2019-03-04] MEDS: PANTOprazole 40 MG TAB PO SCH (09:31)
[2019-03-04] MEDS: LACTULOSE SYRUP 10 GM/15 ML BTL 960 ML PO SCH (11:02)
[2019-03-04] MEDS: OXYCODONE HCL IR 5 MG TAB (IMMEDIATE RELEASE) PO PRN ×2 (17:07→21:29)
[2019-03-04] MEDS: DOCUSATE SODIUM/SENNA 50/8.6MG TAB PO SCH (20:19)
[2019-03-04] MEDS: DULOXETINE HCL 60 MG CAP PO SCH (20:19)
[2019-03-04] MEDS: VALACYCLOVIR HCL 500 MG TABLET PO SCH (20:19)
--- NOTE | 2019-03-04 21:03 | Hospitalist Progress Note ---
Date of Service March 04, 2019 Assessment & Plan (1) Lumbar disc herniation: MR imaging as noted. Seen in consultation by Ortho Spine. Surgical intervention recommended. Lumbar decompression performed by Dr. Newman - POD # 1. Increase activity as tolerated. (2) Alcoholic cirrhosis: Compensated. INR 1.2. Chronic thrombocytopenia. Sober x several years. (3) Thrombocytopenia: Chronic, secondary to cirrhosis. (4) DVT prophylaxis: No anticoagulants due to thrombocytopenia. SCD's. Ambulate as able. (5) Discharge planning issues: Anticipated discharge to home once able to ambulate safely. Family Medicine follow-up with Dr. Garcia. Orthopedics follow-up with Dr. eNwman. Subjective Recheck for severe back pain. Patient seen in their room around 0930. Underwent lumbar decompression yesterday. Having postop low back pain with left sciatica. Review of Systems: Constitutional- no fever. Cardiac- no chest pain. Pulmonary- no cough or SOB. GI- no nausea, vomiting, diarrhea, melena, hematochezia. - no urinary symptoms. Otherwise, as noted above. Physical Exam Constitutional: no acute distress Respiratory: no respiratory distress Cardiovascular: Rate/Rhythm: regular rate and regular rhythm Vessels: no JVD Extremities: no calf tenderness and no edema Gastrointestinal (Abdomen): normal bowel sounds, soft, nontender, no hepatosplenomegaly Musculoskeletal: Spine: + lumbar spinal tenderness and + paraspinal tenderness Skin: no rashes, warm and dry Psychiatric: Orientation: alert (sedated) Results & Data Vital Signs (Past 12 Hours) Vital Signs Temp Pulse Resp BP BP Pulse Ox 03/04/19 20:18 83 121/61 03/04/19 14:55 36.8 C 75 16 133/69 98 03/04/19 11:05 36.7 C 80 16 110/68 96 Laboratory Results 03/04/19 04:38 03/04/19 04:38
[2019-03-05] MEDS: OXYCODONE HCL IR 5 MG TAB (IMMEDIATE RELEASE) PO PRN ×4 (03:50→20:37)
[2019-03-05] MEDS: POLYETHYLENE (MIRALAX) 17 GM PACK PO SCH ×4 (05:59→23:34)
[2019-03-05 07:03] LABS: Mean Corpuscular Hemoglobin 32.5 pg (25-34); Mean Corpuscular Hgb Conc 33.3 g/dL (32-36); Mean Corpuscular Volume 97.4 fL (80-100); RDW Coefficient of Variation 16.2 % (11.5-14.5); RDW Standard Deviation 57.7 fL (36.4-46.3); Red Blood Count 3.08 M/uL (4.7-6.1); White Blood Count 5.61 K/uL (4.8-10.8)
[2019-03-05 07:16] LABS: Mean Platelet Volume 11.4 fL (7.4-10.4); Platelet Count 53 K/uL (130-400)
[2019-03-05 07:41] LABS: Albumin Globulin Ratio 0.8 (0.9-2); Albumin Level 2.5 gm/dl (3.4-5.0); BUN Creatinine Ratio 22.1 (10-20); Bilirubin,Total 1.1 mg/dl (0.2-1); Creatinine Clr Calc Pharmacy 82.2 ml/min; Est GFR (African American) 98.6; Est GFR (Non-African American) 85.1; Globulin 3.2 gm/dl (2.5-4.0); Potassium 4.1 mmol/L (3.5-5.1); Total Protein 5.7 gm/dl (6.4-8.2)
[2019-03-05 08:07] LABS: Eosinophils # (auto) 0.06 K/uL (0-0.5); Eosinophils % (auto) 1.1 %; Immature Granulocytes # (auto) 0.02 K/uL (0.00-0.02); Immature Granulocytes % (auto) 0.4 %; Lymphocytes # (auto) 0.76 K/uL (1.2-3.4); Lymphocytes % (auto) 13.5 %; Monocytes # (auto) 0.94 K/uL (0.11-0.59); Monocytes % (auto) 16.8 %; Neutrophils # (auto) 3.83 K/uL (1.4-6.5); Neutrophils % (auto) 68.2 %; RBC Morphology Unremarkable
[2019-03-05] MEDS ORDERED: bisacodyL 5 MG TABEC PO ONE (08:37)
--- NOTE | 2019-03-05 08:45 | Orthopedic Progress Note ---
Date of Service March 05, 2019 Assessment & Plan (1) Lumbar disc herniation: Assessment: Status post reconstructive spine surgery removal of massive disc herniation stabilization for a spondylolisthesis pedicle screw instrumentation Plan: Dressing change today, Dulcolax tablets ordered for constipation, discharge home tomorrow with home health. Present on Admission?: Yes Subjective Moderate complaints of low back pain. Minimal complaints of leg pain.. Denies chest pain shortness of breath he is not confuse.no calf tenderness d Review of Systems Review of Systems: Denies any fever sweats chills shakes. Denies any nausea vomiting is constipated No dysuria Physical Exam Physical Exam: Wound clean dry protected. Ambulatory without deficits Results & Data ([facility]) Vital Signs (Past 12 Hours) Vital Signs Temp Pulse Resp BP Pulse Ox 03/05/19 07:23 36.6 C 89 19 162/78 H 97 03/04/19 23:17 37.1 C 80 16 144/70 H 96 PG Care Time/CCT Total # of Minutes Spent Total Time Spent with Patient: Total time spent is greater than 50% in coordination of care (as documented) at patient's floor/unit and/or counseling patient: Coding Level of Care Code 01646 Subseq Hosp Care Lvl 1 Diagnoses Lumbar disc herniation M51.26
[2019-03-05] MEDS: LACTULOSE SYRUP 10 GM/15 ML BTL 960 ML PO SCH (09:39)
[2019-03-05] MEDS: SPIRONOLACTONE 100 MG TAB PO SCH ×2 (09:39→20:37)
[2019-03-05] MEDS: THIAMINE HCL 100 MG TAB PO SCH (09:40)
[2019-03-05] MEDS: RIFAXIMIN 550 MG TABLET PO SCH ×2 (09:40→20:37)
[2019-03-05] MEDS: PANTOprazole 40 MG TAB PO SCH (09:40)
[2019-03-05] MEDS: FOLIC ACID 1 MG TAB PO SCH (09:40)
[2019-03-05] MEDS: FUROSEMIDE 40 MG TAB PO SCH ×2 (09:40→16:54)
--- NOTE | 2019-03-05 10:03 | Hospitalist Progress Note ---
Date of Service March 05, 2019 Assessment & Plan (1) Lumbar disc herniation: MR imaging as noted. Seen in consultation by Ortho Spine. Surgical intervention recommended. Lumbar decompression performed by Dr. Newman - POD # 2. Increase activity as tolerated. (2) Alcoholic cirrhosis: Compensated. INR 1.2. Chronic thrombocytopenia. Sober x several years. (3) Thrombocytopenia: Chronic, secondary to cirrhosis. Anemia acute on chronic - normocytic, likely secondary to chronic liver disease - current Hgb down to 10.0 (stable since yesterday), but Hgb 11.8 on admission - likely acute blood anemia secondary surg. procedure - cont. to monitor (4) DVT prophylaxis: No anticoagulants due to thrombocytopenia. SCD's. Ambulate as able. (5) Discharge planning issues: Anticipated discharge to home once able to ambulate safely. Family Medicine follow-up with Dr. Garcia. Orthopedics follow-up with Dr. Newman. Subjective Pt is sitting up in bed, in no acute distress, eating supper. Says his LE feels better, however, complains of low back pain. Denies any fevers, chills, chest pain, shortness of breath, abdominal pain, nausea or vomiting. Patient is ambulating with a walker, says that he has walker, cane, and scooter at home. Review of Systems Review of Systems: All systems reviewed & are unremarkable except as noted in HPI & below Constitutional: no fever and no chills Respiratory: no cough and no dyspnea Cardiovascular: no chest pain, no dyspnea on exertion and no palpitations Gastrointestinal: no abdominal pain, no nausea and no vomiting Physical Exam Physical Exam: Constitutional: WD, WN male sitting up in bed, in no acute distress Respiratory: no respiratory distress, clear to auscultation bilaterally, no wheezing, rhonchi or crackles Cardiovascular: Rate/Rhythm: regular rate and regular rhythm Vessels: no JVD Extremities: no calf tenderness and no edema Gastrointestinal (Abdomen): normal bowel sounds, soft, nontender, nondistended Musculoskeletal: Normocephalic, atraumatic, moves all extremities spontaneously Back : Clean dry dressings applied on lower back, no edema, erythema or drainage noted Skin: no rashes, warm and dry Neuro/Psych: Alert and oriented x3, no facial asymmetry, speech is fluent, moves all 4 extremities spontaneously Results & Data Vital Signs (Past 12 Hours) Vital Signs Temp Pulse Resp BP Pulse Ox 03/05/19 07:23 36.6 C 89 19 162/78 H 97 03/04/19 23:17 37.1 C 80 16 144/70 H 96 Laboratory Results 03/05/19 03/05/19 03/05/19 Range/Units 07:46 06:39 06:39 WBC 5.61 (4.8-10.8) K/uL RBC 3.08 L (4.7-6.1) M/uL Hgb 10.0 L (14.0-18.0) g/dL Hct 30.0 L (42-52) % MCV 97.4 (80-100) fL MCH 32.5 (25-34) pg MCHC 33.3 (32-36) g/dL RDW Std Deviation 57.7 H (36.4-46.3) fL RDW Coeff of Abhijit 16.2 H (11.5-14.5) % Plt Count 53 L (130-400) K/uL MPV 11.4 H (7.4-10.4) fL Immature Gran % (Auto) 0.4 % Neut % (Auto) 68.2 % Lymph % (Auto) 13.5 % Hand % (Auto) 16.8 % Eos % (Auto) 1.1 % Baso % (Auto) 0.0 % Immature Gran # (Auto) 0.02 (0.00-0.02) K/uL Neut # (Auto) 3.83 (1.4-6.5) K/uL Lymph # (Auto) 0.76 L (1.2-3.4) K/uL Hand # (Auto) 0.94 H (0.11-0.59) K/uL Eos # (Auto) 0.06 (0-0.5) K/uL Baso # (Auto) 0.00 (0-0.2) K/uL RBC Morphology Unremarkable Sodium 136 (136-145) mmol/L Potassium 4.1 (3.5-5.1) mmol/L Chloride 105 (98-107) mmol/L Carbon Dioxide 27 (21-32) mmol/L Anion Gap 4.0 (3-11) BUN 21 H (7-18) mg/dl Creatinine 0.97 (0.6-1.4) mg/dl Est Cr Clr Drug Dosing 82.2 ml/min Est GFR ( Amer) 98.6 Est GFR (Non-Af Amer) 85.1 BUN/Creatinine Ratio 22.1 H (10-20) Glucose 146 H (70-99) mg/dl Calcium 8.0 L (8.5-10.1) mg/dl Total Bilirubin 1.1 H (0.2-1) mg/dl Direct Bilirubin 0.3 H (0-0.2) mg/dl AST 56 H (15-37) U/L ALT 39 (12-78) U/L Alkaline Phosphatase 91 (45-117) U/L Total Protein 5.7 L (6.4-8.2) gm/dl Albumin 2.5 L (3.4-5.0) gm/dl Globulin 3.2 (2.5-4.0) gm/dl Albumin/Globulin Ratio 0.8 L (0.9-2) Specimen Hemolysis Medications Administered Current Inpatient Medications Al Hydrox/Mg Hydrox/Simethicone (Maalox) 30 ml PO Q6H PRN PRN Reason: Dyspepsia Stop: 04/02/19 15:52 Albuterol (Ventolin Hfa) 2 puffs INH Q4 PRN PRN Reason: Shortness Of Breath Stop: 03/31/19 21:25 Bisacodyl (Dulcolax) 10 mg NE DAILY PRN PRN Reason: Constipation Stop: 04/02/19 15:52 Cyanocobalamin (Vitamin B-12) 100 mcg PO Q2D@0900 AMBER Stop: 04/01/19 08:59 Last Admin: 03/04/19 09:31 Dose: 100 mcg Documented by: Diclofenac Sodium (Voltaren 1% Top) 2 gm EXT QID PRN PRN Reason: Pain Stop: 03/31/19 21:25 Duloxetine HCl (Cymbalta) 60 mg PO HS AMBER Stop: 04/01/19 20:59 Last Admin: 03/04/19 20:19 Dose: 60 mg Documented by: Famotidine (Pepcid) 20 mg PO Q12H PRN PRN Reason: Dyspepsia Stop: 04/02/19 15:52 Fluticasone Propionate (Flonase) 2 sprays NA DAILY PRN PRN Reason: Nasal Congestion Stop: 03/31/19 21:25 Folic Acid (Folvite) 1 mg PO QAM [facility] Stop: 04/01/19 08:59 Last Admin: 03/05/19 09:40 Dose: 1 mg Documented by: Furosemide (Lasix) 40 mg PO BID@0900,1600 [facility] Stop: 03/31/19 21:25 Last Admin: 03/05/19 09:40 Dose: 40 mg Documented by: Hydromorphone HCl (Dilaudid) 0.5 mg IV Q3H PRN PRN Reason: Severe Pain Stop: 03/17/19 15:52 Last Admin: 03/04/19 02:51 Dose: 0.5 mg Documented by: Promethazine HCl 12.5 mg/ (Sodium Chloride) 50.5 mls @ 204 mls/hr IV Q6H PRN PRN Reason: Nausea &/or Vomiting Stop: 04/02/19 15:52 Influenza Virus Vaccine Quadrival (Flu Vaccine, Do Not Administer) 1 ea N/A PRN PRN PRN Reason: Notification Stop: 04/02/19 15:52 Lactulose (Chronulac) 10 gm PO [facility] Stop: 04/01/19 08:59 Last Admin: 03/05/19 09:39 Dose: 10 gm Documented by: Magnesium Hydroxide (Milk Of Magnesia) 30 ml PO DAILY PRN PRN Reason: Constipation Stop: 04/02/19 15:52 Meclizine HCl (Antivert) 25 mg PO TID PRN PRN Reason: UD Stop: 03/31/19 21:30 Menthol (Nice) 1 jovanna BUCCAL PRN PRN PRN Reason: Sore Throat Stop: 04/01/19 12:41 Last Admin: 03/04/19 03:41 Dose: 1 jovanna Documented by: Naloxone HCl (Narcan) 0.1 mg IV Q5M PRN; Protocol PRN Reason: Oversedation/Resp Depression Stop: 04/02/19 15:52 Ondansetron HCl (Zofran) 4 mg IV Q6H PRN PRN Reason: Nausea &/or Vomiting Stop: 04/02/19 15:52 Last Admin: 03/05/19 09:33 Dose: 4 mg Documented by: Ondansetron HCl (Zofran Odt) 4 mg PO Q6H PRN PRN Reason: Nausea Stop: 04/02/19 15:52 Oxycodone HCl (Roxicodone Immediate Rel) 5 - 10 mg PO Q4H PRN PRN Reason: Moderate-Severe Pain Stop: 03/17/19 15:52 Last Admin: 03/05/19 09:57 Dose: 10 mg Documented by: Pantoprazole Sodium (Protonix) 40 mg PO QAM [facility] Stop: 04/01/19 08:59 Last Admin: 03/05/19 09:40 Dose: 40 mg Documented by: Pneumococcal Polyvalent Vaccine (Pneumococcal Vacc, Do Not Administer) 1 ea N/A PRN PRN PRN Reason: Notification Stop: 04/02/19 15:52 Polyethylene Glycol (Miralax Powder Packet) 17 gm PO Q6 [facility] Stop: 04/03/19 05:59 Last Admin: 03/05/19 05:59 Dose: 17 gm Documented by: Potassium Chloride (Klor-Con Pwd) 20 meq PO Q2D@0900 [facility] Stop: 04/01/19 08:59 Last Admin: 03/04/19 09:30 Dose: 20 meq Documented by: Rifaximin (Xifaxan) 550 mg PO BID [facility] Stop: 03/31/19 21:25 Last Admin: 03/05/19 09:40 Dose: 550 mg Documented by: Senna/Docusate Sodium (Senokot S) 2 tab PO [facility] Stop: 04/02/19 20:59 Last Admin: 03/04/19 20:19 Dose: 2 tab Documented by: Sodium Biphosphate/Sodium Phosphate (Fleet Enema) 132 ml NE ONE PRN PRN Reason: Constipation Stop: 04/02/19 15:52 Spironolactone (Aldactone) 100 mg PO BID [facility] Stop: 03/31/19 21:25 Last Admin: 03/05/19 09:39 Dose: 100 mg Documented by: Thiamine HCl (Vitamin B-1) 100 mg PO QAM [facility] Stop: 04/01/19 08:59 Last Admin: 03/05/19 09:40 Dose: 100 mg Documented by: Valacyclovir HCl (Valtrex) 1,000 mg PO [facility] Stop: 03/31/19 21:25 Last Admin: 03/04/19 20:19 Dose: 1,000 mg Documented by:
[2019-03-05] MEDS ORDERED: OXYCODONE HCL IR 5 MG TAB (IMMEDIATE RELEASE) PO PRN (12:49)
[2019-03-05] MEDS: VALACYCLOVIR HCL 500 MG TABLET PO SCH (20:37)
[2019-03-05] MEDS: DULOXETINE HCL 60 MG CAP PO SCH (20:37)
[2019-03-05] MEDS: DOCUSATE SODIUM/SENNA 50/8.6MG TAB PO SCH (20:37)
[2019-03-06] MEDS: OXYCODONE HCL IR 5 MG TAB (IMMEDIATE RELEASE) PO PRN ×3 (00:45→11:42)
[2019-03-06] MEDS: POLYETHYLENE (MIRALAX) 17 GM PACK PO SCH (05:58)
[2019-03-06 06:21] LABS: Hematocrit (blood only) 30.5 % (42-52); Hemoglobin 10.1 g/dL (14.0-18.0); Mean Corpuscular Hemoglobin 32.5 pg (25-34); Mean Corpuscular Hgb Conc 33.1 g/dL (32-36); Mean Corpuscular Volume 98.1 fL (80-100); RDW Coefficient of Variation 16.2 % (11.5-14.5); Red Blood Count 3.11 M/uL (4.7-6.1); White Blood Count 8.41 K/uL (4.8-10.8)
[2019-03-06 06:25] LABS: Mean Platelet Volume 11.6 fL (7.4-10.4); Platelet Count 65 K/uL (130-400)
[2019-03-06 06:58] LABS: Calcium 7.8 mg/dl (8.5-10.1); Creatinine Clr Calc Pharmacy 102.2 ml/min; Est GFR (African American) 114.5; Est GFR (Non-African American) 98.8; Potassium 4.4 mmol/L (3.5-5.1)
[2019-03-06] MEDS: SPIRONOLACTONE 100 MG TAB PO SCH (08:50)
[2019-03-06] MEDS: LACTULOSE SYRUP 10 GM/15 ML BTL 960 ML PO SCH (08:50)
[2019-03-06] MEDS: POTASSIUM CHLORIDE PWD 20 MEQ PACK PO SCH (08:50)
[2019-03-06] MEDS: FOLIC ACID 1 MG TAB PO SCH (08:50)
[2019-03-06] MEDS: RIFAXIMIN 550 MG TABLET PO SCH (08:51)
[2019-03-06] MEDS: FUROSEMIDE 40 MG TAB PO SCH (08:51)
[2019-03-06] MEDS: CYANOCOBALAMIN (VITAMIN B-12) 100 MCG TABLET PO SCH (08:51)
[2019-03-06] MEDS: PANTOprazole 40 MG TAB PO SCH (08:51)
[2019-03-06] MEDS: THIAMINE HCL 100 MG TAB PO SCH (08:51)
--- NOTE | 2019-03-06 10:57 | Discharge Summary ---
Date of Service March 06, 2019 Admission HPI Per Admitting Provider A 59-year-old male with past medical history significant for alcoholic liver cirrhosis and alcoholism who was in remission for the last 5 years. Smokes marijuana every twice a month, which helps his back pain. Quit drugs 30 years ago, history of hypoglycemia, hyperinsulinemia, history of esophageal varices, portal vein thrombosis, hypertension, portal hypertensive gastropathy, GERD, status post right hip replacement, peripheral polyneuropathy, chronic thrombocytopenia, recurrent vertigo, ambulatory dysfunction, anxiety, depression, lives in a rented house, walks with a cane outside, but at home he walks with a walker, having back pain since last about a year, follows with the PCP, generally uses heating pad or ice to his back in the morning and he was able to get around, but it is getting worse lately and recently started on prednisone but is not helping and today it did seem different when he tried to get up from the bed. He was not able to lift his left leg up and walk, he fell several times today and he had episode of nausea and he was diaphoretic and with severe excruciating pain in the back and decided to come to the ER. He received a dose of Decadron and fentanyl in the ER. Currently, pain is better. He has some decreased sensation in the left leg. Denies any bowel or bladder incontinence. Denies any fever, chills. Appetite is okay. No chest pain or shortness of breath. No cough. He had some headache, no blurred visions, no earache, no runny nose, has some sore throat, No dysphagia or odynophagia. He takes lactulose daily in the morning which helps in 3-4 bowel movements every day. He takes his diuretics which makes him micturate many times a day. Denies any burning micturition or blood in the urine or any black stools. Currently, resting comfortable and hemodynamically stable. Admission Exam Per Admitting Provider GENERAL: The patient is of moderate build, not in acute distress. VITAL SIGNS: Temperature 37.3, pulse 76, respiratory rate 16, blood pressure 124/71, oxygen 97% room air. HEENT: No pallor, no icterus. Pupils equal, round, reactive to light. NECK: No JVD, no neck masses, no carotid bruits. Supple. CARDIOVASCULAR: S1, S2 heard, regular rate and rhythm, no murmur, no gallop. RESPIRATORY SYSTEM: Normal AP diameter. No accessory muscle use. No wheezing, no crackles. ABDOMEN: Soft, bowel sounds present, nontender. No distention. CENTRAL NERVOUS SYSTEM: Alert and oriented. Obeys commands. Speech is clear. Moves extremities, but decreased sensation in the left lower extremity and mild weakness in the left lower extremities. EXTREMITIES: Trace pedal edema present. MUSCULOSKELETAL: Straight leg raise positive on the left leg. Principal Diagnosis Large disc herniation spondylolisthesis severe spinal stenosis Discharge Exam Constitutional: WD, WN male sitting up in bed, in no acute distress Respiratory: no respiratory distress, clear to auscultation bilaterally, no wheezing, or crackles Cardiovascular: Rate/Rhythm: regular rate and regular rhythm Vessels: no JVD Extremities: no calf tenderness and no edema Gastrointestinal (Abdomen): normal bowel sounds, soft, nontender, nondistended Musculoskeletal: Normocephalic, atraumatic, moves all extremities spontaneously Back : Clean dry dressings applied on lower back, no edema, erythema or drainage noted Skin: no rashes, warm and dry Neuro/Psych: Alert and oriented x3, no facial asymmetry, speech is fluent, moves all 4 extremities spontaneously Discharge Data Allergies Allergy/AdvReac Type Severity Reaction Status Date / Time No Known Allergies Allergy Verified 03/01/19 18:21 Consultations 03/01/19 19:59 ED Decision to Admit Stat 03/01/19 21:26 Consult Case Management - Discharge Planning Routine Consult Orthopedic Surgery Routine 03/03/19 15:53 Consult Case Management - Discharge Planning Routine 03/04/19 08:34 Consult Case Management - Discharge Planning Routine Procedures Performed Operation Date: 03/03/19 10:30 Actual Procedures p L3-L4 Decompression and Fusion, Discectomy(Not Applicable) - Diomedes Newman DO Ordered Studies 03/01/19 16:46 MR lumbar spine wo con Stat 03/03/19 07:00 FL fluoroscopy <1hr Routine FL spine 1V any level Routine Hospital Course (1) Lumbar disc herniation: MR imaging as noted. Seen in consultation by Ortho Spine. Surgical intervention recommended. Lumbar decompression performed by Dr. Newman - POD # 3. Increase activity as tolerated. Pt ambulates with a walker. (2) Alcoholic cirrhosis: Compensated. INR 1.2. Chronic thrombocytopenia. Sober x several years. (3) Thrombocytopenia: Chronic, secondary to cirrhosis. Anemia acute on chronic - normocytic, likely secondary to chronic liver disease - current Hgb down to 10.1 (stable for past 3 days), but Hgb 11.8 on admission - likely acute blood anemia secondary surg. procedure - cont. to monitor (4) DVT prophylaxis: No anticoagulants due to thrombocytopenia. SCD's. Ambulate as able. (5) Discharge planning issues: Anticipated discharge to home with home health today. Family Medicine follow-up with Dr. Garcia. Orthopedics follow-up with Dr. Newman. Total Time Total Time Spent Total Time Spent (In Minutes): 35 Total Time Includes: Examination of the Patient, Discharge Planning, Medication Reconciliation and Communication With Other Providers Discharge Plan Discharge Items Patient Disposition: Home - Home Health Services Reason For Visit: SEVERE BACK PAIN Discharge Diagnosis: Large disc herniation spondylolisthesis severe spinal stenosis Activity: As commented below Activity Comment: Home rest recover. Short walks permitted.. Back brace mandatory when ambulatory Lifting: No more than 5 pounds Bathing: Keep incision dry Bathing Comment: May change dressing approximately every 48 hours. Keep the wound clean dry. Shower should be appropriate on March 07 Non-emergency contact: Primary Care Provider Call non-emergency contact if: you have any medication questions Follow-up/Referrals: Najma Garcia MD [Primary Care Provider] - Diet: Regular Addtl Attending Provider Instructions: MEDICATIONS: Please take your prescriptions as instructed at your pre-op appointment. SPECIAL CARE: The following information is intended to answer some of the common questions and concerns regarding your surgery. Each patient is an individual and receives individual counselling throughout the course of treatment, from diagnosis to surgery all the way through recovery. What follows is not an exhaustive list, but should be a useful guide to some of the common questions and concerns patients have regarding their surgeries. These are not provided to keep you from calling us; rather, they give you something accurate and concrete to reference as you recover from your procedure. If you need us, we are available to you. As always, if you are not sure about something, call us at [phone]. MEDICAL EMERGENCIES: For these conditions, call 911 or go to your local hospital-based Emergency Department - not [facility] or equivalent. * Paralysis * Severe chest pain or difficulty breathing * Swelling or redness of either leg Spine procedures can be rather complex and though complications are rare, they do occur. In such cases, effective advice regarding emergency situations cannot always be addressed over the telephone. You may be referred to the emergency department for more effective management of your problem. Activity Limitations: It is important to give your body time to heal, so please limit your activities: * In general, don't do anything that moves your spine too much. You should avoid contact sports, twisting or heavy lifting while you recover. * 5-10 pounds is all you should attempt to lift. * You should not plan on driving for approximately 3 weeks and you should avoid traveling more than 30-45 minutes at a time. Longer trips should be broken down with walking breaks spaced appropriately. * Physical therapy is not usually required. * Walking and good posture practices will help you recover and regain your function. * Avoid straining or sudden changes in position. * In general, the goal is to take it easy and recover. Don't cause any new problems. Just relax. Showers: * Do not take a bath, use a Jacuzzi or hot tub or otherwise submerge your in cision. * It is usually safe to take a shower 4-5 days after your surgery. * Your incision does not require any special creams or ointments. * Simply clean it with soap and water, dry and re-dress with a clean bandage afterwards. Incision: * Keep incision clean, dry and protected until your first follow-up appointment. * Some amount of drainage and redness is normal. Any drainage should be fairly clear and not have a foul odor. * If you feel anything is wrong or you have excessive drainage, please call us. * Your stitches and tegan will be removed 10-14 days after your surgery. At the time of your first post-op visit. * Neck surgeries are typically closed with a suture underneath the skin. The steri-strips over the incision should be maintained until we see you in the office. Bracing: * You may be provided with a back or neck brace to encourage good posture and prevent injury. It will remind you not to do too much as you heal and will alert others to the fact that you have had a surgery. * Back braces may be removed for showers and when you are resting at home. They must be worn when you are walking around for any period of time or for travel. * For neck surgery, you will likely be provided with two cervical collars. The soft collar (Fleming or foam rubber) is worn most commonly throughout the day and while sleeping. The plastic collar (provided at the hospital) is for showering/bathing. * Except while eating, collars should remain in place. More specifically, bracing is provided for a purpose and should be worn. * Please obtain your brace or collars prior to your operation and bring them to the hospital with you on the day of surgery. * You should also bring your collars to your post-op appointment with Dr. Newman. You should always take good care of your body and practice healthy habits, especially following surgery. You should: * Follow your doctor's treatment plan * Sit and stand properly with good posture (ears over shoulders, shoulders over hips) Don't slouch * Learn to lift correctly * Exercise regularly (low-impact aerobic exercise is especially good, but check with your doctor first) * Generally, be up and walking for 5-10 minutes at a time at least 3-4 times per day from the day you get home * Increasing walking to tolerance until you can walk for 20-30 minutes at a time * Attain and maintain a healthy body weight * Eat healthy foods ( a well-balanced, low-fat diet rich in fruits and vegetable s) and get enough calcium * Avoid excessive use of alcohol When to call our office - If you notice any of the following: * Increased pain not relieve by pain medicine * Fevers greater then 100 degrees F, chills or flu symptoms * Increased redness around incision * Drainage from the incision that is not clear * Any foul smelling drainage * Swelling or fluid collection beneath the skin Miscellaneous: * In the hospital, you may be given a walker or cane for support while walking. These are temporary needs and are intended to prevent injuries due to falls. You may discontinue them when you feel strong and steady enough on your feet. * Sleep in a comfortable position. We find that many patients find a lounge chair or recliner with several pillows to be beneficial in the early post-operative period. * The support stockings should be used for 7-10 days and may be discontinued when you are back to walking more and conducting usual household activities. No problem is insignificant. We are here to help you and get you well. Contact us at [phone]. Definitions: Foraminotomy: If part of the disc or a bone spur (osteophyte) is pressing on a nerve as it leaves the vertebra (through an exit called the foramen), a foraminotomy may be done. Otomy means "to make an opening." A foraminotomy is making the opening of the foramen larger, so the nerve can exit without being compressed. Laminotomy: Similar to the foraminotomy, a laminotomy makes a larger opening, this time in your bony plate protecting your spinal canal and spinal cord (the lamina). The lamina may be pressing on your nerve, so the surgeon may make more room for the nerves using a laminotomy. Laminectomy: Sometimes, a laminotomy is not sufficient. The surgeon may need to remove all or part of the lamina. This procedure is called a laminectomy. This can often be done at many levels without any harmful effects. Addtl Glue Jointer Operator Provider Instructions: call [phone], and make an appointment to see Dr. Newman (orthopedic surgeon) in 10 days to 2 weeks You should also follow up with your primary care provider in 1-2 weeks. For pain, you can take tylenol (but no more than 2,000 mg a day because of your liver disease), advil 200 mg very 4 to 6 hrs. For more severe pain, take o xycodone as prescribed. Pending Studies at Discharge: No Stand-Alone Forms: My [facility], Opioid Pain Management, Smoking Cessation Medications and DC Order Prescriptions: New oxycodone 5 mg capsule 10 mg PO Q6H PRN (Reason: pain) Qty: 40 RF: 0 oxycodone 10 mg tablet 10 mg PO Q6H PRN (Reason: pain) Qty: 40 RF: 0 Continued fluticasone propionate 50 mcg/actuation [place],Suspension 2 spray INTRANASAL DAILY PRN (Reason: Nasal Congestion) RF: 0 ondansetron HCl [Zofran] 4 mg Tablet 4 mg PO Q6H PRN (Reason: nausea/vomiting) RF: 0 potassium chloride 20 mEq Packet 20 meq PO Q2D RF: 0 albuterol sulfate [Ventolin HFA] 90 mcg/actuation Hfa Aerosol Inhaler 2 puff INHALATION Q4 PRN (Reason: Shortness Of Breath) RF: 0 duloxetine 60 mg capsule,delayed release(DR/EC) 60 mg PO DAILY RF: 0 lactulose [Kristalose] 10 gram Packet 10 g PO QAM RF: 0 methylprednisolone 4 mg tablets,dose pack 0 mg PO .DAILY/UD RF: 0 diclofenac sodium [Voltaren] 1 % Gel 2 g TOPICAL QID PRN (Reason: Pain) RF: 0 furosemide [Lasix] 40 mg Tablet 40 mg PO BID RF: 0 cyanocobalamin (vitamin B-12) [Vitamin B-12] 100 mcg Tablet 100 mcg PO Q2D RF: 0 valacyclovir [Valtrex] 1 gram Tablet 1,000 mg PO HS RF: 0 spironolactone 100 mg Tablet 100 mg PO BID RF: 0 thiamine HCl (vitamin B1) [Vitamin B-1] 100 mg Tablet 100 mg PO QAM RF: 0 omeprazole 40 mg Capsule,Delayed Release(Dr/Ec) 40 mg PO QAM RF: 0 meclizine 25 mg Tablet 25 mg PO TID PRN (Reason: Dizziness) RF: 0 folic acid 1 mg Tablet 1 mg PO QAM RF: 0 Xifaxan 550 mg Tablet 550 mg PO BID RF: 0 Discharge Orders: Discharge Order (Routine); Ordered 03/05/19 Ordered By: Diomedes Tidwell/Other Patient Handouts: Surgery Prevent DVT After Admission Data Admit Date/Time: 03/03/19 13:05 Attending Provider: John Cisse Admit Provider: Maynor Snyder Primary Care Provider: Najma Garcia Other Providers: Maynor Snyder ; Diomedes Newman ; Diomedes Preciado Other Interventions: Discharge Summary Assessment (RN) Last Done: 03/06/19 09:16
--- NOTE | 2019-03-06 11:30 | Discharge Summary ---
Andrea was admitted a few days ago with severe back pain and large herniation, spondylolisthesis and profound spinal stenosis. I took him to surgery within 24 hours, decompressed the spinal canal, and fused the spine at L3-L4. He has done well. He has been out of bed to chair. His wound has been clean, dry. Other than back pain he has no chest pain, shortness of breath. He has no confusion. He has no lower extremity difficulties such as calf tenderness. OBJECTIVE: Vital signs stable, afebrile. Wound clean. PLAN: He will be discharged home later on today 03/06/2019 improved stable condition. He has a prescription sent to his pharmacy. He has a back brace for support. He is to use ice as much as possible. Up ambulatory. Careful with bending, stooping, lifting as he recovers. No heavy activity. He is existence is really bed to chair to commode and stick with that activity until I see him back for followup. The patient is to call the office at [phone]. I am to see him in followup examination in approximately 10-14 days.
== END 2019-03-06 12:53 | disposition home health service (06) | DRG 460 ==
LOC: ED 16:33 → INTOOBSV 20:48 → 3N 20:48 → SUATTDRO 03-03 13:05

== ENCOUNTER 2019-08-06 16:41 | Inpatient (IN) ==
--- NOTE | 2019-08-06 17:29 | Emergency Department Note ---
Impression & Plan Hyperammonemia, Acute confusion, History of cirrhosis of liver, Pancytopenia ED Provider Note NAME: FABIANA LARRY AGE: 59 SEX: M : 1960 ARRIVES VIA: Ambulance INFORMANT: Patient, ED PROVIDER(S): Des Burns MD Chief Complaint: Confusion HPI: Patient believes that his confusion began this morning. The patient does have a known history of cirrhosis and states that he does take lactulose daily. The patient denies any recent falls, chest pains. Patient does have some chronic shortness of breath but no nausea or vomiting. No concerns for COVID at this time. The patient last drank alcohol in 2001. The patient denies tobacco or drug use. Patient states that he has been taking his medications and is compliant. Patient does have trouble with thinking. The patient denies any weakness but does have some chronic numbness in the left lower extremity which is been present ever since he had a back surgery. Patient denies any fevers or chills or urinary symptoms. Patient has had a recent bowel movement. ROS: See HPI for pertinent positives and negatives. A total of 10 systems were reviewed and otherwise negative. Past medical history: See below Surgical history: See below Social history: See below Physical Exam: GENERAL: Wearing glasses, NAD, non-toxic. EYE EXAM: Normal conjunctiva. PERRL, no anisocoria and EOM's grossly intact w/o pain. NECK: Supple, no nuchal rigidity, no adenopathy, non-tender. No signs of meningismus. LUNGS: Clear to auscultation. Normal chest wall mechanics. HEART: NSR, no MRG. ABDOMEN: Abdomen soft, non-tender, normo-active bowel sounds, no masses, no rebound or guarding. BACK: No CVA TTP. SKIN: No rashes and no bruising. UPPER EXTREMITIES: Upper extremities are grossly normal. LOWER EXTREMITIES: Grossly normal, no edema. NEURO EXAM: Awake and alert, follows basic commands is oriented to person place and birthdate does have some intermittent confusion, good [id number] no sensory deficits with exception of left lower extremity which is chronic. Symmetric strength in bilateral upper and lower extremities with no focal weakness. Differential diagnoses: Infection, dehydration, metabolic abnormality, hypo/hyperglycemia, electrolyte disturbance, anemia, hypoxia, cardiac sources, intracerebral event, toxicologic, neurologic, as well as other pathologies. Course: Patient was seen and evaluated the bedside. Full history physical exam was performed. EKG: Indication: Confusion Normal sinus rhythm, rate of 97, prolonged QTC, normal axis, no obvious ST changes or T WI. Rate and QT is lengthened compared to EKG March 02, 2019. Imaging Studies: Radiology results as stated below per my review in the radiologist's interpretation: XR chest 1V portable CLINICAL HISTORY: weakness dyspnea COMPARISON STUDY: No previous studies for comparison. FINDINGS: The bones soft tissues and hemidiaphragms are normal. The cardiomediastinal silhouette is normal. The lungs are clear. The pulmonary vasculature is normal. IMPRESSION: Negative chest. ACT 112: Negative or not required by law. The above report was generated using voice recognition software. It may contain grammatical, syntax or spelling errors. Electronically signed by: Samir Garcia M.D. 08/06/2019 5:[address] head/brain wo con CT DOSE: 614.27 mGy.cm HISTORY: Mental status change confusion TECHNIQUE: Multiaxial CT images of the head were performed without the use of intravenous contrast. A dose lowering technique was utilized adhering to the principles of ALARA. Comparison: None. Findings: The paranasal sinuses and mastoid air cells are clear. The calvarium and skull base are intact. The ventricles and sulci are within normal limits. There is no mass, hematoma, midline shift, or acute infarct. Impression: No acute intracranial abnormality. ACT 112: Negative or not required by law. The above report was generated using voice recognition software. It may contain grammatical, syntax or spelling errors. Electronically signed by: Samir Garcia M.D. 08/06/2019 7:21 PM Dictated: 08/06/191917 Transcribed: 08/06/191917 Cardiac monitoring: An order was placed for continuous cardiac monitoring. The monitor shows a rate of 96 with sinus rhythm. MDM: Patient was seen due to confusion. Blood work was obtained along with urinalysi s EKG ammonia alcohol and CT of the head. Patient's blood work shows very mild leukopenia with trace anemia. Platelet count is 77,000. Anemia and thrombocytopenia appear chronic. INR 1.2. Patient has unremarkable kidney function. Bilirubin 1.8 with slight changes in AST and alk phos. Ammonia 62. Patient is still somewhat confused. Urinalysis was obtained which does show positive nitrites and leuks but no whites or bacteria. Many epithelial cells. Alcohol negative. Given the patient's persistent confusion with the patient would benefit for treatment given the patient's elevated ammonia. CT of the head was negative as was the patient's chest x-ray. I did speak with the on-call hospitalist Dr. Asencio and the patient was admitted to [facility]. Past Med/Surg History Medical History Anxiety Chronic back pain Depression Genital herpes GERD (gastroesophageal reflux disease) Hearing deficit History of alcohol abuse History of anemia History of cirrhosis of liver D/T ALCOHOL History of colon polyps History of hepatitis C (Acute) Hx of ascites Hx of encephalopathy HEAPTIC Hx of esophageal varices Hx of gynecomastia Hx of thrombocytopenia Hypertension Osteoarthritis Portal hypertensive gastropathy Portal vein thrombosis Vertigo Surgical History History of tooth extraction all teeth removed History of total right hip arthroplasty Hx of decompression of ulnar nerve RIGHT Family History Father Diabetes Other No family history of adverse response to anesthesia Social History Preferred Language: Kittitian Communication Ability: Effective Director Process Improvement Required: No Beliefs That Will Affect Care: None marital status: / Current Living Situation: Alone Current Living Situation Comment: [facility] s/o Feels Safe at Home: Yes Smoking Status: Never smoker Tobacco Type: smokeless tobacco ; Cigarettes Per Day: 1ppd x 2 years ; Second Hand Exposure: Yes ; Hx Alcohol Use: No Hx Substance Use: Yes substance use type: marijuana Substance Use Type Other:: 2-3 times a month Last Used Substance: Days (ago) Allergies Allergies Allergy/AdvReac Type Severity Reaction Status Date / Time No Known Allergies Allergy Verified 08/06/19 22:07 Home Meds Home Medications Medication Instructions Recorded Confirmed Xifaxan 550 mg PO BID 11/04/17 08/06/19 cyanocobalamin (vitamin B-12) 100 mcg PO DAILY 11/04/17 08/06/19 [Vitamin B-12] folic acid 1 mg PO QAM 11/04/17 08/06/19 furosemide [Lasix] 40 mg PO BID 11/04/17 08/06/19 meclizine 25 mg PO TID PRN 11/04/17 08/06/19 omeprazole 40 mg PO QAM 11/04/17 08/06/19 spironolactone 100 mg PO BID 11/04/17 08/06/19 thiamine HCl (vitamin B1) [Vitamin 100 mg PO QAM 11/04/17 08/06/19 B-1] valacyclovir [Valtrex] 1,000 mg PO HS 11/04/17 08/06/19 fluticasone propionate 2 spray INTRANASAL DAILY PRN 04/11/18 08/06/19 ondansetron HCl [Zofran] 4 mg PO Q6H PRN 04/11/18 08/06/19 albuterol sulfate [Ventolin HFA] 2 puff INHALATION Q4 PRN 04/30/18 08/06/19 duloxetine 60 mg PO DAILY 12/17/18 08/06/19 diclofenac sodium [Voltaren] 2 g TOPICAL QID PRN 03/01/19 08/06/19 lactulose [Kristalose] 10 g PO DAILY 03/01/19 08/06/19 baclofen 10 mg PO BID PRN 08/06/19 08/06/19 potassium chloride 20 meq PO DAILY 08/06/19 08/06/19 sildenafil (pulm.hypertension) 40 mg PO WK PRN 08/06/19 08/06/19 [Revatio] Results & Data (ED) Vital Signs Vital Signs - 24 hr 08/06/19 16:48 08/06/19 16:56 08/06/19 18:39 Temperature 36.9 C Temperature Source Oral Pulse Rate 96 H 96 H 105 H Pulse Rate [Finger] Respiratory Rate 14 20 18 Respiratory Effort / Characteristics Non-Labored Respiratory Depth Normal Blood Pressure 145/80 H 145/80 H 160/85 H Blood Pressure [Right Arm] Blood Pressure Mean 94 101 119 Blood Pressure Mean [Right Arm] Blood Pressure Position Lying Pulse Oximetry 97 94 98 Oxygen Delivery Method Room Air Sepsis Recent Fever Within 48 Hours No Sepsis Action Taken by Nursing No Action Required 08/06/19 20:07 Temperature Temperature Source Pulse Rate Pulse Rate [Finger] 108 H Respiratory Rate 18 Respiratory Effort / Characteristics Respiratory Depth Blood Pressure Blood Pressure [Right Arm] 141/98 H Blood Pressure Mean Blood Pressure Mean [Right Arm] 112 Blood Pressure Position Pulse Oximetry 98 Oxygen Delivery Method Room Air Sepsis Recent Fever Within 48 Hours Sepsis Action Taken by Half-Way Medications Current Medication List: was personally reviewed by me Laboratory Data Attestation: I reviewed the patient's lab results. Result diagrams: 08/06/19 17:42 08/06/19 17:42 Lab Results 08/06/19 08/06/19 08/06/19 Range/Units 17:42 17:42 17:42 WBC 4.14 L (4.8-10.8) K/uL RBC 4.15 L (4.7-6.1) M/uL Hgb 12.2 L (14.0-18.0) g/dL Hct 37.0 L (42-52) % MCV 89.2 (80-100) fL MCH 29.4 (25-34) pg MCHC 33.0 (32-36) g/dL RDW Std Deviation 59.3 H (36.4-46.3) fL RDW Coeff of Abhijit 18.5 H (11.5-14.5) % Plt Count 77 L (130-400) K/uL MPV 10.4 (7.4-10.4) fL Immature Gran % (Auto) 0.0 % Neut % (Auto) 62.4 % Lymph % (Auto) 21.0 % [place] % (Auto) 13.5 % Eos % (Auto) 1.9 % Baso % (Auto) 1.2 % Neut # (Auto) 2.58 (1.4-6.5) K/uL Lymph # (Auto) 0.87 L (1.2-3.4) K/uL [place] # (Auto) 0.56 (0.11-0.59) K/uL Eos # (Auto) 0.08 (0-0.5) K/uL Baso # (Auto) 0.05 (0-0.2) K/uL Immature Gran # (Auto) 0.00 (0.00-0.02) K/uL Echinocytes 1+ PT 12.4 H (9.0-12.0) Seconds INR 1.2 H (0.9-1.1) Sodium 144 (136-145) mmol/L Potassium 3.9 (3.5-5.1) mmol/L Chloride 115 H (98-107) mmol/L Carbon Dioxide 22 (21-32) mmol/L Anion Gap 7.0 (3-11) BUN 14 (7-18) mg/dl Creatinine 0.93 (0.6-1.4) mg/dl Est Cr Clr Drug Dosing 87.6 ml/min Est GFR ( Amer) 103.8 Est GFR (Non-Af Amer) 89.5 BUN/Creatinine Ratio 15.5 (10-20) Glucose 76 (70-99) mg/dl Lactate (0.4-2.0) mmol/L Calcium 9.2 (8.5-10.1) mg/dl Magnesium 2.1 (1.8-2.4) mg/dl Total Bilirubin 1.8 H (0.2-1) mg/dl AST 49 H (15-37) U/L ALT 26 (12-78) U/L Alkaline Phosphatase 121 H (45-117) U/L Ammonia (11-32) umol/L Troponin I < 0.015 (0-0.045) ng/ml Total Protein 7.4 (6.4-8.2) gm/dl Albumin 3.2 L (3.4-5.0) gm/dl Globulin 4.2 H (2.5-4.0) gm/dl Albumin/Globulin Ratio 0.8 L (0.9-2) TSH 1.690 (0.300-4.500) uIu/ml Urine Color Urine Appearance (Clear) Urine pH (4.5-7.5) Ur Specific [place] (1.000-1.030) Urine Protein (Negative) Urine Glucose (UA) (Negative) Urine Ketones (Negative) Urine Blood (Negative) Urine Nitrite (Negative) Urine Bilirubin (Negative) Urine Urobilinogen (Negative) Ur Leukocyte Esterase (Negative) Urine WBC (Auto) (0-5) /hpf Urine RBC (Auto) (0-4) /hpf U Hyaline Cast (Auto) (0-5) /lpf U Epithel Cells (Auto) (0-5) /lpf Urine Bacteria (Auto) (Negative) Urine Yeast (None Prsent) Ethyl Alcohol mg/dL (0-3) mg/dl 08/06/19 08/06/19 08/06/19 Range/Units 17:42 17:42 20:00 WBC (4.8-10.8) K/uL RBC (4.7-6.1) M/uL Hgb (14.0-18.0) g/dL Hct (42-52) % MCV (80-100) fL MCH (25-34) pg MCHC (32-36) g/dL RDW Std Deviation (36.4-46.3) fL RDW Coeff of Abhijit (11.5-14.5) % Plt Count (130-400) K/uL MPV (7.4-10.4) fL Immature Gran % (Auto) % Neut % (Auto) % Lymph % (Auto) % [place] % (Auto) % Eos % (Auto) % Baso % (Auto) % Neut # (Auto) (1.4-6.5) K/uL Lymph # (Auto) (1.2-3.4) K/uL [place] # (Auto) (0.11-0.59) K/uL Eos # (Auto) (0-0.5) K/uL Baso # (Auto) (0-0.2) K/uL Immature Gran # (Auto) (0.00-0.02) K/uL Echinocytes PT (9.0-12.0) Seconds INR (0.9-1.1) Sodium (136-145) mmol/L Potassium (3.5-5.1) mmol/L Chloride (98-107) mmol/L Carbon Dioxide (21-32) mmol/L Anion Gap (3-11) BUN (7-18) mg/dl Creatinine (0.6-1.4) mg/dl Est Cr Clr Drug Dosing ml/min Est GFR ( Amer) Est GFR (Non-Af Amer) BUN/Creatinine Ratio (10-20) Glucose (70-99) mg/dl Lactate (0.4-2.0) mmol/L Calcium (8.5-10.1) mg/dl Magnesium (1.8-2.4) mg/dl Total Bilirubin (0.2-1) mg/dl AST (15-37) U/L ALT (12-78) U/L Alkaline Phosphatase (45-117) U/L Ammonia 62.0 H (11-32) umol/L Troponin I (0-0.045) ng/ml Total Protein (6.4-8.2) gm/dl Albumin (3.4-5.0) gm/dl Globulin (2.5-4.0) gm/dl Albumin/Globulin Ratio (0.9-2) TSH (0.300-4.500) uIu/ml Urine Color Dark Yellow Urine Appearance Cloudy A (Clear) Urine pH 5.5 (4.5-7.5) Ur Specific [place] 1.026 (1.000-1.030) Urine Protein Negative (Negative) Urine Glucose (UA) Negative (Negative) Urine Ketones 1+ H (Negative) Urine Blood Negative (Negative) Urine Nitrite Positive A (Negative) Urine Bilirubin Negative (Negative) Urine Urobilinogen Positive H (Negative) Ur Leukocyte Esterase Trace H (Negative) Urine WBC (Auto) 1-5 (0-5) /hpf Urine RBC (Auto) 0-4 (0-4) /hpf U Hyaline Cast (Auto) 1-5 (0-5) /lpf U Epithel Cells (Auto) >30 H (0-5) /lpf Urine Bacteria (Auto) Negative (Negative) Urine Yeast Budding A (None Prsent) Ethyl Alcohol mg/dL < 3.0 (0-3) mg/dl 08/06/19 Range/Units 21:06 WBC (4.8-10.8) K/uL RBC (4.7-6.1) M/uL Hgb (14.0-18.0) g/dL Hct (42-52) % MCV (80-100) fL MCH (25-34) pg MCHC (32-36) g/dL RDW Std Deviation (36.4-46.3) fL RDW Coeff of Abhijit (11.5-14.5) % Plt Count (130-400) K/uL MPV (7.4-10.4) fL Immature Gran % (Auto) % Neut % (Auto) % Lymph % (Auto) % [place] % (Auto) % Eos % (Auto) % Baso % (Auto) % Neut # (Auto) (1.4-6.5) K/uL Lymph # (Auto) (1.2-3.4) K/uL [place] # (Auto) (0.11-0.59) K/uL Eos # (Auto) (0-0.5) K/uL Baso # (Auto) (0-0.2) K/uL Immature Gran # (Auto) (0.00-0.02) K/uL Echinocytes PT (9.0-12.0) Seconds INR (0.9-1.1) Sodium (136-145) mmol/L Potassium (3.5-5.1) mmol/L Chloride (98-107) mmol/L Carbon Dioxide (21-32) mmol/L Anion Gap (3-11) BUN (7-18) mg/dl Creatinine (0.6-1.4) mg/dl Est Cr Clr Drug Dosing ml/min Est GFR ( Amer) Est GFR (Non-Af Amer) BUN/Creatinine Ratio (10-20) Glucose (70-99) mg/dl Lactate 2.0 (0.4-2.0) mmol/L Calcium (8.5-10.1) mg/dl Magnesium (1.8-2.4) mg/dl Total Bilirubin (0.2-1) mg/dl AST (15-37) U/L ALT (12-78) U/L Alkaline Phosphatase (45-117) U/L Ammonia (11-32) umol/L Troponin I (0-0.045) ng/ml Total Protein (6.4-8.2) gm/dl Albumin (3.4-5.0) gm/dl Globulin (2.5-4.0) gm/dl Albumin/Globulin Ratio (0.9-2) TSH (0.300-4.500) uIu/ml Urine Color Urine Appearance (Clear) Urine pH (4.5-7.5) Ur Specific [place] (1.000-1.030) Urine Protein (Negative) Urine Glucose (UA) (Negative) Urine Ketones (Negative) Urine Blood (Negative) Urine Nitrite (Negative) Urine Bilirubin (Negative) Urine Urobilinogen (Negative) Ur Leukocyte Esterase (Negative) Urine WBC (Auto) (0-5) /hpf Urine RBC (Auto) (0-4) /hpf U Hyaline Cast (Auto) (0-5) /lpf U Epithel Cells (Auto) (0-5) /lpf Urine Bacteria (Auto) (Negative) Urine Yeast (None Prsent) Ethyl Alcohol mg/dL (0-3) mg/dl Administered Medications Lactated Ringer's (Lr) 1,000 mls @ 60 mls/hr IV .[id number] ONE Stop: 08/07/19 14:09 Last Admin: 08/06/19 22:19 Dose: 60 mls/hr Documented by: [id number] Discontinued Medications Ceftriaxone Sodium (Rocephin) 1,000 mg in 50 mls @ 100 mls/hr IV NOW STA Stop: 08/06/19 21:07 Last Infusion: 08/06/19 21:38 Dose: 0 mls/hr Documented by: [id number] Admin: 08/06/19 21:04 Dose: 100 mls/hr Documented by: [id number] Sodium Chloride (Nss) 500 mls @ 500 mls/hr IV .Q1H ONE Stop: 08/06/19 21:39 Last Infusion: 08/06/19 22:26 Dose: 0 mls/hr Documented by: [id number] Admin: 08/06/19 21:04 Dose: 500 mls/hr Documented by: [id number] Lactulose (Chronulac) 30 gm PO NOW STA Stop: 08/06/19 21:26 Last Admin: 08/06/19 21:43 Dose: 30 gm Documented by: [id number] Discharge Plan Visit Data *Final* Discharge Date/Time: 08/06/19 22:02 Chief Complaint: Confusion Stated Complaint: CONFUSION ED Provider: Des Burns Discharge Problem: Hyperammonemia, Acute confusion, History of cirrhosis of liver, Pancytopenia Patient Disposition: Admitted As Inpatient Discharge Instructions Interventions: ED Discharge Assessment Last Done: 08/06/19 22:02
--- NOTE | 2019-08-06 17:36 | XRay Report ---
XR chest 1V portable CLINICAL HISTORY: weakness dyspnea COMPARISON STUDY: No previous studies for comparison. FINDINGS: The bones soft tissues and hemidiaphragms are normal. The cardiomediastinal silhouette is n ormal. The lungs are clear. The pulmonary vasculature is normal. IMPRESSION: Negative chest. ACT 112: Negative or not required by law. The above report was generated using voice recognition software. It may contain grammatical, syntax or spelling errors. Electronically signed by: Samir Garcia M.D. 08/06/2019 5:34 PM
[2019-08-06 18:26] LABS: Alanine Aminotransferase 26 U/L (12-78); Albumin Level 3.2 gm/dl (3.4-5.0); Aspartate Aminotransferase 49 U/L (15-37); BUN Creatinine Ratio 15.5 (10-20); Blood Urea Nitrogen 14 mg/dl (7-18); Calcium 9.2 mg/dl (8.5-10.1); Carbon Dioxide 22 mmol/L (21-32); Chloride 115 mmol/L (98-107); Creatinine Clr Calc Pharmacy 87.6 ml/min; Est GFR (African American) 103.8; Est GFR (Non-African American) 89.5; Glucose 76 mg/dl (70-99); Magnesium 2.1 mg/dl (1.8-2.4); Potassium 3.9 mmol/L (3.5-5.1); Sodium 144 mmol/L (136-145)
[2019-08-06 18:33] LABS: Hemoglobin 12.2 g/dL (14.0-18.0); Mean Corpuscular Hemoglobin 29.4 pg (25-34); Mean Corpuscular Volume 89.2 fL (80-100); Mean Platelet Volume 10.4 fL (7.4-10.4); Platelet Count 77 K/uL (130-400); RDW Coefficient of Variation 18.5 % (11.5-14.5); RDW Standard Deviation 59.3 fL (36.4-46.3); Red Blood Count 4.15 M/uL (4.7-6.1); White Blood Count 4.14 K/uL (4.8-10.8)
[2019-08-06 18:36] LABS: Albumin Globulin Ratio 0.8 (0.9-2); Alkaline Phosphatase 121 U/L (45-117); Bilirubin,Total 1.8 mg/dl (0.2-1); Globulin 4.2 gm/dl (2.5-4.0); Total Protein 7.4 gm/dl (6.4-8.2); Troponin I < 0.015 ng/ml (0-0.045)
[2019-08-06 18:38] LABS: INR 1.2 (0.9-1.1); Prothrombin Time 12.4 Seconds (9.0-12.0)
[2019-08-06 18:47] LABS: Basophils # (auto) 0.05 K/uL (0-0.2); Basophils % (auto) 1.2 %; Echinocytes 1+; Eosinophils # (auto) 0.08 K/uL (0-0.5); Eosinophils % (auto) 1.9 %; Lymphocytes # (auto) 0.87 K/uL (1.2-3.4); Monocytes # (auto) 0.56 K/uL (0.11-0.59); Monocytes % (auto) 13.5 %; Neutrophils # (auto) 2.58 K/uL (1.4-6.5); Neutrophils % (auto) 62.4 %
--- NOTE | 2019-08-06 19:22 | CT Scan Report ---
CT head/brain wo con CT DOSE: 614.27 mGy.cm HISTORY: Mental status change confusion TECHNIQUE: Multiaxial CT images of the head were performed without the use of intravenous contrast. A dose lowering technique was utilized adhering to the principles of ALARA. Comparison: None. Findings: The paranasal sinuses and mastoid air cells are clear. The calvarium and skull base are int act. The ventricles and sulci are within normal limits. There is no mass, hematoma, midline shift, or acute infarct. Impression: No acute intracranial abnormality. ACT 112: Negative or not required by law. The above report was generated using voice recognition software. It may contain grammatical, syntax or spelling errors. Electronically signed by: Samir Garcia M.D. 08/06/2019 7:21 PM
[2019-08-06 20:15] LABS: Appearance Urine Cloudy (Clear); Bacteria Urine Automated Negative (Negative); Bilirubin Urine Negative (Negative); Blood Urine Negative (Negative); Color Urine Dark Yellow; Epithelial Cell Urine Auto >30 /lpf (0-5); Glucose Urine UA Negative (Negative); Ketones Urine 1+ (Negative); Leukocyte Esterase Urine Trace (Negative); Nitrite Urine Positive (Negative); Protein Urine Negative (Negative); RBC Urine Automated 0-4 /hpf (0-4); Specific Gravity Urine 1.026 (1.000-1.030); Urobilinogen Urine Positive (Negative); pH Urine 5.5 (4.5-7.5)
[2019-08-06] MEDS ORDERED: cefTRIAXone SODIUM 1,000 MG/50 ML BAG IV STA (20:38)
[2019-08-06] MEDS ORDERED: SODIUM CHLORIDE 0.9% 500 ML IV ONE (20:40)
[2019-08-06] MEDS ORDERED: LACTULOSE SYRUP 20 GM/30 ML UDC PO STA (21:25)
--- NOTE | 2019-08-06 21:25 | History & Physical Report ---
Date of Service August 06, 2019 Assessment & Plan (1) Altered mental status: Slowed mentation/trouble concentrating as per patient account Multifactorial : Hepatic encephalopathy Complicated UTI, possible sepsis hx alcoholic cirrhosis, elevated ammonia, patient intravascularly dry however on my assessment past tobacco and alcohol abuse, chronic anemia, hemoglobin at baseline Medical telemetry Increase lactulose to twice daily dosing for now, facilitate Xifaxan Cultures. Check lactic acid IVF, Ceftriaxone for now Hold home diuretics until volume status improved DVT prophylaxis. SCDs RE thrombocytopenia Full code Text document was generated using [employer] voice recognition software. It may contain grammatical or spelling errors. Kindly contact undersigned for clarification of any documentation item in question. History of Present Illness Chief Complaint: Feel confused Primary Care Provider: Najma Garcia MD History obtained from patient and records. Medical history significant for alcoholic cirrhosis, past tobacco and alcohol abuse, chronic anemia (baseline hemoglobin 10), history of portal vein thrombosis as per records. Recent confinement February 2019 for lumbar disc herniation status post surgery. This morning patient woke up having trouble thinking. No chest pain, no S OB. Claims to be compliant with home medications. No abdominal pain, diarrhea/dysuria symptoms. Usual dark green stools. No chest pain, S OB, flulike symptoms. No known recent COVID-19 contacts. MEDICAL HISTORY: As above. SURGERIES: He has had carpal tunnel surgery, dental surgery, back surgery, hip replacement. FAMILY HISTORY: Heart disease, hypertension, alcohol abuse. PERSONAL AND SOCIAL HISTORY: Past tobacco/ETOH abuse. He is disabled. Allergies Allergy/AdvReac Type Severity Reaction Status Date / Time No Known Allergies Allergy Verified 08/06/19 22:07 Home Medications Home Medications Medication Instructions Recorded Confirmed Type Xifaxan 550 mg PO BID 11/04/17 08/06/19 History cyanocobalamin (vitamin B-12) 100 mcg PO DAILY 11/04/17 08/06/19 History [Vitamin B-12] folic acid 1 mg PO QAM 11/04/17 08/06/19 History furosemide [Lasix] 40 mg PO BID 11/04/17 08/06/19 History meclizine 25 mg PO TID PRN 11/04/17 08/06/19 History omeprazole 40 mg PO QAM 11/04/17 08/06/19 History spironolactone 100 mg PO BID 11/04/17 08/06/19 History thiamine HCl (vitamin B1) [Vitamin 100 mg PO QAM 11/04/17 08/06/19 History B-1] valacyclovir [Valtrex] 1,000 mg PO HS 11/04/17 08/06/19 History fluticasone propionate 2 spray INTRANASAL DAILY PRN 04/11/18 08/06/19 History ondansetron HCl [Zofran] 4 mg PO Q6H PRN 04/11/18 08/06/19 History albuterol sulfate [Ventolin HFA] 2 puff INHALATION Q4 PRN 04/30/18 08/06/19 History duloxetine 60 mg PO DAILY 12/17/18 08/06/19 History diclofenac sodium [Voltaren] 2 g TOPICAL QID PRN 03/01/19 08/06/19 History lactulose [Kristalose] 10 g PO DAILY 03/01/19 08/06/19 History baclofen 10 mg PO BID PRN 08/06/19 08/06/19 History potassium chloride 20 meq PO DAILY 08/06/19 08/06/19 History sildenafil (pulm.hypertension) 40 mg PO WK PRN 08/06/19 08/06/19 History [Revatio] Past Med/Surg History Medical History Anxiety Chronic back pain Depression Genital herpes GERD (gastroesophageal reflux disease) Hearing deficit History of alcohol abuse History of anemia History of cirrhosis of liver D/T ALCOHOL History of colon polyps History of hepatitis C (Acute) Hx of ascites Hx of encephalopathy HEAPTIC Hx of esophageal varices Hx of gynecomastia Hx of thrombocytopenia Hypertension Osteoarthritis Portal hypertensive gastropathy Portal vein thrombosis Vertigo Surgical History History of tooth extraction all teeth removed History of total right hip arthroplasty Hx of decompression of ulnar nerve RIGHT Family History Father Diabetes Other No family history of adverse response to anesthesia Social History Preferred Language: B[place] Communication Ability: Effective Cloth Shrinker Required: No Beliefs That Will Affect Care: None marital status: / Current Living Situation: Alone Current Living Situation Comment: [facility] s/o Feels Safe at Home: Yes Smoking Status: Former smoker Tobacco Type: smokeless tobacco ; Cigarettes Per Day: 1ppd x 2 years ; Second Hand Exposure: Yes ; Hx Alcohol Use: No Hx Substance Use: Yes substance use type: marijuana Substance Use Type Other:: 2-3 times a month Last Used Substance: Unknown Review of Systems Review of Systems: As per HPI, all 10 systems reviewed, all other ROS negative Physical Exam Physical Exam: GENERAL: Anxious, coherent, occasional slowed response to questions, no respiratory distress SKIN: Pallor , warm HEENT: Pale palpebral conjunctivae, no ptosis, dry buccal mucosa NECK : Supple, no tenderness CHEST : CTA, no tenderness HEART : Tachycardic, no obvious murmurs ABDOMEN: Some distention, nontender EXTREMITIES : No LE swelling/tenderness, no other conspicuous deformities noted NEUROLOGIC : Coherent, occasional slow response to questions, no facial asymmetry, no other gross focality Results & Data Results & Data ([facility]) Vital Signs (Past 12 Hours) Vital Signs Temp Pulse Pulse Resp BP BP Pulse Ox 08/06/19 20:07 108 H 18 141/98 H 98 08/06/19 18:39 105 H 18 160/85 H 98 08/06/19 16:56 36.9 C 96 H 20 145/80 H 94 08/06/19 16:48 96 H 14 145/80 H 97 Laboratory Results Laboratory Results WBC 4.14 K/uL (4.8-10.8) L 08/06/19 17:42 RBC 4.15 M/uL (4.7-6.1) L 08/06/19 17:42 Hgb 12.2 g/dL (14.0-18.0) L 08/06/19 17:42 Hct 37.0 % (42-52) L 08/06/19 17:42 MCV 89.2 fL (80-100) 08/06/19 17:42 MCH 29.4 pg (25-34) 08/06/19 17:42 MCHC 33.0 g/dL (32-36) 08/06/19 17:42 RDW Std Deviation 59.3 fL (36.4-46.3) H 08/06/19 17:42 RDW Coeff of Abhijit 18.5 % (11.5-14.5) H 08/06/19 17:42 Plt Count 77 K/uL (130-400) L 08/06/19 17:42 MPV 10.4 fL (7.4-10.4) 08/06/19 17:42 Immature Gran % (Auto) 0.0 % 08/06/19 17:42 Neut % (Auto) 62.4 % 08/06/19 17:42 Lymph % (Auto) 21.0 % 08/06/19 17:42 [place] % (Auto) 13.5 % 08/06/19 17:42 Eos % (Auto) 1.9 % 08/06/19 17:42 Baso % (Auto) 1.2 % 08/06/19 17:42 Neut # (Auto) 2.58 K/uL (1.4-6.5) 08/06/19 17:42 Lymph # (Auto) 0.87 K/uL (1.2-3.4) L 08/06/19 17:42 [place] # (Auto) 0.56 K/uL (0.11-0.59) 08/06/19 17:42 Eos # (Auto) 0.08 K/uL (0-0.5) 08/06/19 17:42 Baso # (Auto) 0.05 K/uL (0-0.2) 08/06/19 17:42 Immature Gran # (Auto) 0.00 K/uL (0.00-0.02) 08/06/19 17:42 Echinocytes 1+ 08/06/19 17:42 PT 12.4 Seconds (9.0-12.0) H 08/06/19 17:42 INR 1.2 (0.9-1.1) H 08/06/19 17:42 Sodium 144 mmol/L (136-145) 08/06/19 17:42 Potassium 3.9 mmol/L (3.5-5.1) 08/06/19 17:42 Chloride 115 mmol/L (98-107) H 08/06/19 17:42 Carbon Dioxide 22 mmol/L (21-32) 08/06/19 17:42 Anion Gap 7.0 (3-11) 08/06/19 17:42 BUN 14 mg/dl (7-18) 08/06/19 17:42 Creatinine 0.93 mg/dl (0.6-1.4) 08/06/19 17:42 Est Cr Clr Drug Dosing 87.6 ml/min 08/06/19 17:42 Est GFR ( Amer) 103.8 08/06/19 17:42 Est GFR (Non-Af Amer) 89.5 08/06/19 17:42 BUN/Creatinine Ratio 15.5 (10-20) 08/06/19 17:42 Glucose 76 mg/dl (70-99) 08/06/19 17:42 Calcium 9.2 mg/dl (8.5-10.1) 08/06/19 17:42 Magnesium 2.1 mg/dl (1.8-2.4) 08/06/19 17:42 Total Bilirubin 1.8 mg/dl (0.2-1) H 08/06/19 17:42 AST 49 U/L (15-37) H 08/06/19 17:42 ALT 26 U/L (12-78) 08/06/19 17:42 Alkaline Phosphatase 121 U/L (45-117) H 08/06/19 17:42 Ammonia 62.0 umol/L (11-32) H 08/06/19 17:42 Troponin I < 0.015 ng/ml (0-0.045) 08/06/19 17:42 Total Protein 7.4 gm/dl (6.4-8.2) 08/06/19 17:42 Albumin 3.2 gm/dl (3.4-5.0) L 08/06/19 17:42 Globulin 4.2 gm/dl (2.5-4.0) H 08/06/19 17:42 Albumin/Globulin Ratio 0.8 (0.9-2) L 08/06/19 17:42 TSH 1.690 uIu/ml (0.300-4.500) 08/06/19 17:42 Urine Color Dark Yellow 08/06/19 20:00 Urine Appearance Cloudy (Clear) A 08/06/19 20:00 Urine pH 5.5 (4.5-7.5) 08/06/19 20:00 Ur Specific [place] 1.026 (1.000-1.030) 08/06/19 20:00 Urine Protein Negative (Negative) 08/06/19 20:00 Urine Glucose (UA) Negative (Negative) 08/06/19 20:00 Urine Ketones 1+ (Negative) H 08/06/19 20:00 Urine Blood Negative (Negative) 08/06/19 20:00 Urine Nitrite Positive (Negative) A 08/06/19 20:00 Urine Bilirubin Negative (Negative) 08/06/19 20:00 Urine Urobilinogen Positive (Negative) H 08/06/19 20:00 Ur Leukocyte Esterase Trace (Negative) H 08/06/19 20:00 Urine WBC (Auto) 1-5 /hpf (0-5) 08/06/19 20:00 Urine RBC (Auto) 0-4 /hpf (0-4) 08/06/19 20:00 U Hyaline Cast (Auto) 1-5 /lpf (0-5) 08/06/19 20:00 U Epithel Cells (Auto) >30 /lpf (0-5) H 08/06/19 20:00 Urine Bacteria (Auto) Negative (Negative) 08/06/19 20:00 Urine Yeast Budding (None Prsent) A 08/06/19 20:00 Ethyl Alcohol mg/dL < 3.0 mg/dl (0-3) 08/06/19 17:[address] head: No acute intracranial abnormality. Chest x-ray : Negative EKG as per my interpretation : Rate 95, normal axis, septal infarct, low voltage
[2019-08-06] MEDS ORDERED: LACTATED RINGER'S 1,000 ML IV ONE (21:30)
[2019-08-06] MEDS ORDERED: ACETAMINOPHEN 325 MG TAB PO PRN (22:42)
[2019-08-06] MEDS ORDERED: TRAMADOL HCL 50 MG TABLET PO PRN (22:42)
[2019-08-06] MEDS ORDERED: PROMETHAZINE HCL 12.5 MG in SODIUM CHLORIDE 0.9% 50 ML IV PRN (22:42)
[2019-08-06] MEDS ORDERED: FLUTICASONE PROPIONATE NA SPR 16 GM BTL PRN (22:52)
[2019-08-06] MEDS ORDERED: DICLOFENAC SOD 1% GEL 100 GM TUBE EXT PRN (22:52)
[2019-08-06] MEDS ORDERED: BACLOFEN 10 MG TAB PO PRN (22:52)
[2019-08-07] MEDS: RIFAXIMIN 550 MG TABLET PO SCH ×3 (00:11→20:26)
[2019-08-07 05:42] LABS: Hematocrit (blood only) 32.6 % (42-52); Hemoglobin 10.5 g/dL (14.0-18.0); Mean Corpuscular Hemoglobin 28.7 pg (25-34); Mean Corpuscular Hgb Conc 32.2 g/dL (32-36); Mean Corpuscular Volume 89.1 fL (80-100); RDW Coefficient of Variation 18.8 % (11.5-14.5); RDW Standard Deviation 60.8 fL (36.4-46.3); Red Blood Count 3.66 M/uL (4.7-6.1); White Blood Count 2.58 K/uL (4.8-10.8)
[2019-08-07 06:01] LABS: Albumin Level 2.7 gm/dl (3.4-5.0); BUN Creatinine Ratio 19.3 (10-20); Calcium 8.3 mg/dl (8.5-10.1); Est GFR (African American) 117.7; Est GFR (Non-African American) 101.5
[2019-08-07 06:04] LABS: Mean Platelet Volume 11.9 fL (7.4-10.4); Platelet Count 66 K/uL (130-400)
[2019-08-07 06:09] LABS: Albumin Globulin Ratio 0.8 (0.9-2); Bilirubin,Total 1.6 mg/dl (0.2-1); Globulin 3.3 gm/dl (2.5-4.0)
[2019-08-07 06:19] LABS: Basophils # (auto) 0.02 K/uL (0-0.2); Basophils % (auto) 0.8 %; Eosinophils # (auto) 0.06 K/uL (0-0.5); Eosinophils % (auto) 2.3 %; Lymphocytes # (auto) 0.85 K/uL (1.2-3.4); Lymphocytes % (auto) 32.9 %; Monocytes # (auto) 0.46 K/uL (0.11-0.59); Monocytes % (auto) 17.8 %; Neutrophils # (auto) 1.19 K/uL (1.4-6.5); Neutrophils % (auto) 46.2 %; Ovalocytes 1+
[2019-08-07] MEDS: DULOXETINE HCL 60 MG CAP PO SCH (07:12)
[2019-08-07] MEDS: CYANOCOBALAMIN (VITAMIN B-12) 100 MCG TABLET PO SCH (07:12)
[2019-08-07] MEDS: FOLIC ACID 1 MG TAB PO SCH (07:12)
[2019-08-07] MEDS: PANTOprazole 40 MG TAB PO SCH (07:12)
[2019-08-07] MEDS: THIAMINE HCL 100 MG TAB PO SCH (07:12)
[2019-08-07] MEDS: LACTULOSE SYRUP 30 GM/45 ML UDP PO SCH ×3 (07:12→20:21)
--- NOTE | 2019-08-07 08:13 | Electrocardiogram Report ---
Test Reason : Blood Pressure : / mmHG Vent. Rate : 097 BPM Atrial Rate : 097 BPM P-R Int : 174 ms QRS Dur : 088 ms QT Int : 386 ms P-R-T Axes : 067 038 053 degrees QTc Int : 490 ms Normal sinus rhythm Low voltage QRS Borderline ECG When compared with ECG of 02-MAR-2019 09:26, Vent. rate has increased BY 33 BPM QT has lengthened Confirmed by Selvin Chandler ([id number]) on 08/07/2019 8:13:49 AM Referred By: REFERRED SELF Confirmed By:Selvin Chandler
--- NOTE | 2019-08-07 15:37 | Hospitalist Progress Note ---
Date of Service August 07, 2019 Assessment & Plan (1) Altered mental status: Hepatic/Metabolic Encephalopathy CT head:No acute intracranial abnormality. Ammonia:62 on admission Mental status seems to have much improved Continue lactulose, rifaximin Continue antibiotics for UTI Monitor Urinary tract infection Possible Sepsis CXR: No signs of pneumonia Normal lactate levels Blood culture: pending Urine culture: staph species Received IV fluids Continue Rocephin empirically H/O Alcoholic cirrhosis Denies any recent alcohol use, drug use Evaluated by [facility] gastroenterology previously ? Compliance Continue lactulose, rifaximin Resume home diuretics as able Chronic anemia Hb at baseline Monitor Thrombocytopenia Chronic secondary to cirrhosis Monitor No acute bleeding issues DVT Px: SCDs RE thrombocytopenia Code Status Full code Disposition Expected discharge home when medically stable Admission and Anticipated Discharge Date Admission Date: August 06, 2019 Subjective Patient is seen and examined at bedside Feels a lot better this morning Confusion seems to have resolved Nauseous earlier today but resolved Denies any dysuria, hematuria, increased urinary frequency Denies any chest pain, shortness of breath, dizziness, abdominal pain Review of Systems Review of Systems: All systems reviewed & are unremarkable except as noted in HPI & below Physical Exam Physical Exam: Physical Exam: Vitals signs as noted above General Appearance:Moderately built and nourished, no apparent distress Head: normocephalic, Atraumatic Eyes: normal inspection, EOMI Neck: supple, Trachea midline Respiratory/Chest: Normal breath sounds, CTA, No accessory muscle use Cardiovascular: S1, S2, No murmur Abdomen/GI:Soft, Non tender, mild distended, Bowel sounds present Extremities/Musculoskelatal:normal inspection, no edema Neurologic/Psych:AAOX3, grossly no focal neurological deficits Skin: normal color, warm Results & Data Results & Data ([facility]) Vital Signs (Past 12 Hours) Vital Signs Temp Pulse Pulse Resp BP BP Pulse Ox 08/07/19 11:06 36.9 C 70 16 158/64 H 97 08/07/19 08:44 74 08/07/19 07:20 37.0 C 84 18 132/71 98 Laboratory Results Short CBC 08/06/19 08/07/19 Range/Units 17:42 05:35 WBC 4.14 L 2.58 L (4.8-10.8) K/uL Hgb 12.2 L 10.5 L (14.0-18.0) g/dL Hct 37.0 L 32.6 L (42-52) % Plt Count 77 L 66 L (130-400) K/uL BMP 08/06/19 08/07/19 17:42 05:35 Sodium 144 144 Potassium 3.9 4.0 Chloride 115 H 118 H Carbon Dioxide 22 23 BUN 14 14 Creatinine 0.93 0.73 Glucose 76 82 Calcium 9.2 8.3 L Cardiac Enzymes 08/06/19 Range/Units 17:42 Troponin I < 0.015 (0-0.045) ng/ml Liver Function 08/06/19 08/07/19 Range/Units 17:42 05:35 Total Bilirubin 1.8 H 1.6 H (0.2-1) mg/dl AST 49 H 33 (15-37) U/L ALT 26 21 (12-78) U/L Alkaline Phosphatase 121 H 92 (45-117) U/L Albumin 3.2 L 2.7 L (3.4-5.0) gm/dl Urine 08/06/19 Range/Units 20:00 Urine Color Dark Yellow Urine Appearance Cloudy A (Clear) Urine pH 5.5 (4.5-7.5) Ur Specific [place] 1.026 (1.000-1.030) Urine Protein Negative (Negative) Urine Glucose (UA) Negative (Negative)
[2019-08-07] MEDS ORDERED: cefTRIAXone SODIUM 2,000 MG in DEXTROSE 5% 50 ML IV SCH (21:00)
[2019-08-08] MEDS: RIFAXIMIN 550 MG TABLET PO SCH ×2 (08:17→20:41)
[2019-08-08] MEDS: DULOXETINE HCL 60 MG CAP PO SCH (08:17)
[2019-08-08] MEDS: LACTULOSE SYRUP 30 GM/45 ML UDP PO SCH (08:17)
[2019-08-08] MEDS: THIAMINE HCL 100 MG TAB PO SCH (08:17)
[2019-08-08] MEDS: CYANOCOBALAMIN (VITAMIN B-12) 100 MCG TABLET PO SCH (08:17)
[2019-08-08] MEDS: PANTOprazole 40 MG TAB PO SCH (08:18)
[2019-08-08] MEDS: FOLIC ACID 1 MG TAB PO SCH (08:18)
[2019-08-08 08:37] LABS: Hematocrit (blood only) 33.9 % (42-52); Mean Corpuscular Hemoglobin 29.2 pg (25-34); Mean Corpuscular Hgb Conc 32.4 g/dL (32-36); Mean Corpuscular Volume 89.9 fL (80-100); RDW Coefficient of Variation 18.6 % (11.5-14.5); Red Blood Count 3.77 M/uL (4.7-6.1); White Blood Count 3.36 K/uL (4.8-10.8)
[2019-08-08 08:38] LABS: INR 1.2 (0.9-1.1); Prothrombin Time 12.5 Seconds (9.0-12.0)
[2019-08-08 08:41] LABS: Mean Platelet Volume 9.8 fL (7.4-10.4); Platelet Count 65 K/uL (130-400)
[2019-08-08 08:47] LABS: Albumin Level 2.9 gm/dl (3.4-5.0); BUN Creatinine Ratio 16.9 (10-20); Calcium 8.7 mg/dl (8.5-10.1); Creatinine Clr Calc Pharmacy 107.7 ml/min; Est GFR (African American) 116.4; Est GFR (Non-African American) 100.4; Magnesium 1.9 mg/dl (1.8-2.4); Potassium 4.1 mmol/L (3.5-5.1)
[2019-08-08 08:50] LABS: Albumin Globulin Ratio 0.8 (0.9-2); Bilirubin,Total 1.3 mg/dl (0.2-1); Globulin 3.6 gm/dl (2.5-4.0); Total Protein 6.5 gm/dl (6.4-8.2)
[2019-08-08] MEDS: LACTULOSE SYRUP 10 GM/15 ML BTL 960 ML PO SCH ×2 (14:52→20:42)
--- NOTE | 2019-08-08 17:54 | Hospitalist Progress Note ---
Date of Service August 08, 2019 Assessment & Plan (1) Altered mental status: Hepatic/Metabolic Encephalopathy CT head:No acute intracranial abnormality. Ammonia:62 on admission Continue lactulose, rifaximin Continue antibiotics for UTI Mental status is back to baseline We will decrease lactulose to titrate for 3-4 BMs Urinary tract infection Possible Sepsis CXR: No signs of pneumonia Normal lactate levels Blood culture: No growth to date Urine culture: Coagulase negative staph Received IV fluids Rocephin transition to Augmentin H/O Alcoholic cirrhosis Denies any recent alcohol use, drug use Evaluated by [facility] gastroenterology previously ? Compliance Continue lactulose, rifaximin Resume home diuretics as able Chronic anemia Hb at baseline Monitor Thrombocytopenia Chronic secondary to cirrhosis Monitor No acute bleeding issues DVT Px: SCDs RE thrombocytopenia Code Status Full code Disposition Expected discharge home when medically stable Admission and Anticipated Discharge Date Admission Date: August 06, 2019 Subjective Patient is seen and examined at bedside Reports having 7-8 bowel movements overnight States having nausea Dysuria resolved Denies any chest pain, SOB, hematuria, dizziness Review of Systems Review of Systems: All systems reviewed & are unremarkable except as noted in HPI & below Physical Exam Physical Exam: Physical Exam: Vitals signs as noted above General Appearance:Moderately built and nourished, no apparent distress Head: normocephalic, Atraumatic Eyes: normal inspection, EOMI Neck: supple, Trachea midline Respiratory/Chest: Normal breath sounds, CTA, No accessory muscle use Cardiovascular: S1, S2, No murmur Abdomen/GI:Soft, Non tender, mild distended, Bowel sounds present Extremities/Musculoskelatal:normal inspection, no edema Neurologic/Psych:AAOX3, grossly no focal neurological deficits Skin: normal color, warm Results & Data Results & Data ([facility]) Vital Signs (Past 12 Hours) Vital Signs Temp Pulse Pulse Resp BP Pulse Ox 08/08/19 15:11 36.7 C 87 18 144/72 H 94 08/08/19 11:35 37.0 C 64 18 130/69 95 08/08/19 07:26 65 08/08/19 07:17 37.0 C 68 16 118/74 95 Laboratory Results Short CBC 08/08/19 Range/Units 08:18 WBC 3.36 L (4.8-10.8) K/uL Hgb 11.0 L (14.0-18.0) g/dL Hct 33.9 L (42-52) % Plt Count 65 L (130-400) K/uL BMP 08/08/19 08:18 Sodium 139 Potassium 4.1 Chloride 111 H Carbon Dioxide 22 BUN 13 Creatinine 0.75 Glucose 101 H Calcium 8.7 Liver Function 08/08/19 Range/Units 08:18 Total Bilirubin 1.3 H (0.2-1) mg/dl AST 39 H (15-37) U/L ALT 22 (12-78) U/L Alkaline Phosphatase 98 (45-117) U/L Albumin 2.9 L (3.4-5.0) gm/dl
[2019-08-09] MEDS: THIAMINE HCL 100 MG TAB PO SCH (07:50)
[2019-08-09] MEDS: LACTULOSE SYRUP 10 GM/15 ML BTL 960 ML PO SCH ×2 (07:50→13:45)
[2019-08-09] MEDS: DULOXETINE HCL 60 MG CAP PO SCH (07:50)
[2019-08-09] MEDS: FOLIC ACID 1 MG TAB PO SCH (07:50)
[2019-08-09] MEDS: PANTOprazole 40 MG TAB PO SCH (07:50)
[2019-08-09] MEDS: CYANOCOBALAMIN (VITAMIN B-12) 100 MCG TABLET PO SCH (07:51)
[2019-08-09] MEDS: RIFAXIMIN 550 MG TABLET PO SCH (07:51)
[2019-08-09] MEDS ORDERED: AMOXICILLIN/CLAVULANATE 500 MG TAB PO SCH ×2 (08:00→12:30)
[2019-08-09 08:23] LABS: Hematocrit (blood only) 34.4 % (42-52); Hemoglobin 10.8 g/dL (14.0-18.0); Mean Corpuscular Hemoglobin 28.6 pg (25-34); Mean Corpuscular Hgb Conc 31.4 g/dL (32-36); RDW Coefficient of Variation 18.2 % (11.5-14.5); RDW Standard Deviation 58.9 fL (36.4-46.3); Red Blood Count 3.78 M/uL (4.7-6.1); White Blood Count 3.63 K/uL (4.8-10.8)
[2019-08-09 08:30] LABS: Mean Platelet Volume 10.9 fL (7.4-10.4); Platelet Count 65 K/uL (130-400)
[2019-08-09 08:44] LABS: Albumin Level 2.9 gm/dl (3.4-5.0); BUN Creatinine Ratio 13.3 (10-20); Calcium 8.5 mg/dl (8.5-10.1); Creatinine Clr Calc Pharmacy 123.3 ml/min; Est GFR (African American) 122.7; Est GFR (Non-African American) 105.8; Magnesium 1.8 mg/dl (1.8-2.4); Potassium 3.8 mmol/L (3.5-5.1)
[2019-08-09 08:53] LABS: Albumin Globulin Ratio 0.8 (0.9-2); Bilirubin,Total 1.7 mg/dl (0.2-1); Globulin 3.5 gm/dl (2.5-4.0); Total Protein 6.4 gm/dl (6.4-8.2)
--- NOTE | 2019-08-09 12:38 | Hospitalist Progress Note ---
Date of Service August 09, 2019 Assessment & Plan (1) Altered mental status: Hepatic/Metabolic Encephalopathy CT head:No acute intracranial abnormality. Ammonia:62 on admission Continue lactulose, rifaximin Continue antibiotics for UTI Mental status is back to baseline Resolved Urinary tract infection Possible Sepsis CXR: No signs of pneumonia Normal lactate levels Blood culture: No growth to date Urine culture: Coagulase negative staph Received IV fluids Rocephin transition to Augmentin H/O Alcoholic cirrhosis Denies any recent alcohol use, drug use Evaluated by [facility] gastroenterology previously ? Compliance Continue lactulose, rifaximin Continue home diuretics upon discharge Chronic anemia Hb at baseline Monitor Thrombocytopenia Chronic secondary to cirrhosis Monitor No acute bleeding issues DVT Px: SCDs RE thrombocytopenia Code Status Full code Disposition Expected discharge home when medically stable Admission and Anticipated Discharge Date Admission Date: August 06, 2019 Subjective Patient is seen and examined at bedside Doing well today 2 BMs today Confusion completely resolved No new complaints Denies any chest pain, SOB, hematuria, dizziness, nausea, abd pain, dysuria Review of Systems Review of Systems: All systems reviewed & are unremarkable except as noted in HPI & below Physical Exam Physical Exam: Physical Exam: Vitals signs as noted above General Appearance:Moderately built and nourished, no apparent distress Head: normocephalic, Atraumatic Eyes: normal inspection, EOMI Neck: supple, Trachea midline Respiratory/Chest: Normal breath sounds, CTA, No accessory muscle use Cardiovascular: S1, S2, No murmur Abdomen/GI:Soft, Non tender, Bowel sounds present Extremities/Musculoskelatal:normal inspection, no edema Neurologic/Psych:AAOX3, grossly no focal neurological deficits Skin: normal color, warm Results & Data Results & Data ([facility]) Vital Signs (Past 12 Hours) Vital Signs Temp Pulse Pulse Resp BP BP Pulse Ox 08/09/19 11:25 36.8 C 65 20 117/62 129/73 98 08/09/19 11:23 36.8 C 65 20 129/73 98 08/09/19 08:42 63 08/09/19 07:29 36.8 C 66 18 126/71 98 08/09/19 04:07 37 C 64 20 118/70 96 Laboratory Results Short CBC 08/09/19 Range/Units 07:40 WBC 3.63 L (4.8-10.8) K/uL Hgb 10.8 L (14.0-18.0) g/dL Hct 34.4 L (42-52) % Plt Count 65 L (130-400) K/uL BMP 08/09/19 07:40 Sodium 135 L Potassium 3.8 Chloride 105 Carbon Dioxide 22 BUN 9 Creatinine 0.66 Glucose 84 Calcium 8.5 Liver Function 08/09/19 Range/Units 07:40 Total Bilirubin 1.7 H (0.2-1) mg/dl AST 45 H (15-37) U/L ALT 23 (12-78) U/L Alkaline Phosphatase 94 (45-117) U/L Albumin 2.9 L (3.4-5.0) gm/dl
--- NOTE | 2019-08-09 12:45 | Discharge Summary ---
Date of Service August 09, 2019 Admission HPI Per Admitting Provider History obtained from patient and records. Medical history significant for alcoholic cirrhosis, past tobacco and alcohol abuse, chronic anemia (baseline hemoglobin 10), history of portal vein thrombosis as per records. Recent confinement February 2019 for lumbar disc herniation status post surgery. This morning patient woke up having trouble thinking. No chest pain, no S OB. Claims to be compliant with home medications. No abdominal pain, diarrhea/dysuria symptoms. Usual dark green stools. No chest pain, S OB, flulike symptoms. No known recent COVID-19 contacts. MEDICAL HISTORY: As above. SURGERIES: He has had carpal tunnel surgery, dental surgery, back surgery, hip replacement. FAMILY HISTORY: Heart disease, hypertension, alcohol abuse. PERSONAL AND SOCIAL HISTORY: Past tobacco/ETOH abuse. He is disabled. Admission Exam Per Admitting Provider Physical Exam Physical Exam: GENERAL: Anxious, coherent, occasional slowed response to questions, no respiratory distress SKIN: Pallor , warm HEENT: Pale palpebral conjunctivae, no ptosis, dry buccal mucosa NECK : Supple, no tenderness CHEST : CTA, no tenderness HEART : Tachycardic, no obvious murmurs ABDOMEN: Some distention, nontender EXTREMITIES : No LE swelling/tenderness, no other conspicuous deformities noted NEUROLOGIC : Coherent, occasional slow response to questions, no facial asymmetry, no other gross focality Principal Diagnosis Urinary tract infection Acute metabolic/Hepatic encephalopathy Thrombocytopenia Discharge Data Allergies Allergy/AdvReac Type Severity Reaction Status Date / Time No Known Allergies Allergy Verified 08/06/19 22:07 Consultations 08/06/19 20:20 ED Decision to Admit Stat Procedures Performed CT head:No acute intracranial abnormality. CXR: Negative chest. Ordered Studies 08/06/19 17:16 CT head/brain wo con Stat Hospital Course (1) Altered mental status: Hepatic/Metabolic Encephalopathy CT head:No acute intracranial abnormality. Ammonia:62 on admission Continue lactulose, rifaximin Continue antibiotics for UTI Mental status is back to baseline Resolved Urinary tract infection Possible Sepsis CXR: No signs of pneumonia Normal lactate levels Blood culture: No growth to date Urine culture: Coagulase negative staph Received IV fluids Rocephin transition to Augmentin H/O Alcoholic cirrhosis Denies any recent alcohol use, drug use Evaluated by [facility] gastroenterology previously ? Compliance Continue lactulose, rifaximin Continue home diuretics upon discharge Chronic anemia Hb at baseline Monitor Thrombocytopenia Chronic secondary to cirrhosis Monitor No acute bleeding issues DVT Px: SCDs RE thrombocytopenia Code Status Full code Disposition Expected discharge home when medically stable Total Time Total Time Spent Total Time Spent (In Minutes): 37 minutes Total Time Includes: Examination of the Patient, Discharge Planning, Medication Reconciliation, Communication With Other Providers and Other Discharge Plan Discharge Items Patient Disposition: Home - Self-Care Reason For Visit: SEPSIS Discharge Diagnosis: Urinary tract infection Acute metabolic/Hepatic encephalopathy Thrombocytopenia Activity: Resume your previous activity Exercise/Sports: Gradually increase as tolerated Driving/Machine Use: No driving until cleared by your primary care physician. Non-emergency contact: Primary Care Provider and Academic Affairs Vice President Call non-emergency contact if: you have any medication questions, your symptoms worsen, your pain is not controlled, your pain is worsening, your pain is unusual for you, your pain is concerning for you and you have a fever Follow-up/Referrals: Najma Garcia MD [Primary Care Provider] - Diet: Low Sodium (2gm) Addtl Attending Provider Instructions: Follow-up with your primary care physician Dr. Garcia in 1 week as advised Follow-up with your jailkeeper in 3 to 4 weeks as advised Complete antibiotic course Augmentin for urinary tract infection as prescribed Titrate your lactulose for 3-4 good bowel movements as instructed. Seek immediate medical attention if your symptoms reoccur or worsen Pending Studies at Discharge: No Stand-Alone Forms: My [employer], Smoking Cessation Medications and DC Order Prescriptions: New amoxicillin-pot clavulanate 500-125 mg Tablet 1 tab PO BIDM 5 Days Qty: 10 RF: 0 Lactobacillus acidoph-L.bulgar [Floranex] 1 million cell Tablet 4 tab PO TIDM 7 Days Qty: 84 RF: 0 Continued fluticasone propionate 50 mcg/actuation Gary,Suspension 2 spray INTRANASAL DAILY PRN (Reason: Nasal Congestion) RF: 0 ondansetron HCl [Zofran] 4 mg Tablet 4 mg PO Q6H PRN (Reason: nausea/vomiting) RF: 0 albuterol sulfate [Ventolin HFA] 90 mcg/actuation Hfa Aerosol Inhaler 2 puff INHALATION Q4 PRN (Reason: Shortness Of Breath) RF: 0 duloxetine 60 mg capsule,delayed release(DR/EC) 60 mg PO DAILY RF: 0 diclofenac sodium [Voltaren] 1 % Gel 2 g TOPICAL QID PRN (Reason: Pain) RF: 0 baclofen 10 mg tablet 10 mg PO BID PRN (Reason: MUSCLE SPASMS) RF: 0 sildenafil (pulm.hypertension) [Revatio] 20 mg tablet 40 mg PO WK PRN (Reason: Sexual Activity) RF: 0 potassium chloride 20 mEq tablet extended release 20 meq PO DAILY RF: 0 furosemide [Lasix] 40 mg Tablet 40 mg PO BID RF: 0 cyanocobalamin (vitamin B-12) [Vitamin B-12] 100 mcg Tablet 100 mcg PO DAILY RF: 0 valacyclovir [Valtrex] 1 gram Tablet 1,000 mg PO HS RF: 0 spironolactone 100 mg Tablet 100 mg PO BID RF: 0 thiamine HCl (vitamin B1) [Vitamin B-1] 100 mg Tablet 100 mg PO QAM RF: 0 omeprazole 40 mg Capsule,Delayed Release(Dr/Ec) 40 mg PO QAM RF: 0 meclizine 25 mg Tablet 25 mg PO TID PRN (Reason: Dizziness) RF: 0 folic acid 1 mg Tablet 1 mg PO QAM RF: 0 Xifaxan 550 mg Tablet 550 mg PO BID RF: 0 Changed lactulose [Kristalose] 10 gram Packet 10 g PO BID Qty: 0 RF: 0 Discharge Orders: Discharge Order (Routine); Ordered 08/09/19 Ordered By: Darshan Arevalo Admission Data Admit Date/Time: 08/06/19 21:26 Attending Provider: Darshan Arevalo Admit Provider: Yoni Goss Primary Care Provider: Najma Garcia Other Providers: Yoni Goss Other Interventions: Discharge Summary Assessment (RN) Last Done: 08/09/19 11:25 DC Date/Time DO NOT enter until pt leaves facility: 08/09/19 14:47
[2019-08-09] MEDS ORDERED: LACTOBACILLUS ACIDOPHILUS (FLORANEX) TAB PO SCH (17:00)
== END 2019-08-09 14:47 | disposition home health service (06) | DRG 871 ==
LOC: ED 16:41 → 2W 21:26

== ENCOUNTER 2019-11-10 21:15 | Inpatient (IN) ==
[2019-11-10 21:47] LABS: Appearance Urine Clear (Clear); Bilirubin Urine Negative (Negative); Blood Urine Negative (Negative); Color Urine Yellow; Glucose Urine UA Negative (Negative); Ketones Urine Negative (Negative); Leukocyte Esterase Urine Negative (Negative); Nitrite Urine Negative (Negative); Protein Urine Negative (Negative); Specific Gravity Urine 1.014 (1.000-1.030); Urobilinogen Urine Negative (Negative)
[2019-11-10 21:57] LABS: Hematocrit (blood only) 42.5 % (42-52); Hemoglobin 15.1 g/dL (14.0-18.0); Mean Corpuscular Hemoglobin 34.3 pg (25-34); Mean Corpuscular Hgb Conc 35.5 g/dL (32-36); Mean Corpuscular Volume 96.6 fL (80-100); Mean Platelet Volume 11.7 fL (7.4-10.4); Platelet Count 62 K/uL (130-400); RDW Coefficient of Variation 15.7 % (11.5-14.5); RDW Standard Deviation 55.5 fL (36.4-46.3); White Blood Count 8.71 K/uL (4.8-10.8)
[2019-11-10 22:10] LABS: Basophils # (auto) 0.01 K/uL (0-0.2); Basophils % (auto) 0.1 %; Eosinophils # (auto) 0.22 K/uL (0-0.5); Eosinophils % (auto) 2.5 %; Immature Granulocytes # (auto) 0.03 K/uL (0.00-0.02); Immature Granulocytes % (auto) 0.3 %; Lymphocytes # (auto) 1.05 K/uL (1.2-3.4); Lymphocytes % (auto) 12.1 %; Monocytes # (auto) 1.14 K/uL (0.11-0.59); Monocytes % (auto) 13.1 %; Neutrophils # (auto) 6.26 K/uL (1.4-6.5); Neutrophils % (auto) 71.9 %
[2019-11-10 22:12] LABS: Alanine Aminotransferase 60 U/L (12-78); Albumin Globulin Ratio 0.8 (0.9-2); Albumin Level 2.9 gm/dl (3.4-5.0); Alkaline Phosphatase 128 U/L (45-117); Aspartate Aminotransferase 56 U/L (15-37); BUN Creatinine Ratio 18.5 (10-20); Blood Urea Nitrogen 21 mg/dl (7-18); Calcium 9.1 mg/dl (8.5-10.1); Carbon Dioxide 25 mmol/L (21-32); Chloride 104 mmol/L (98-107); Est GFR (Non-African American) 70.8; Globulin 3.7 gm/dl (2.5-4.0); Glucose 148 mg/dl (70-99); Potassium 3.8 mmol/L (3.5-5.1); Sodium 137 mmol/L (136-145); Total Protein 6.6 gm/dl (6.4-8.2)
[2019-11-10] MEDS ORDERED: IOVERSOL 100ml IV ONE (23:27)
[2019-11-11 00:22] LABS: INR 1.2 (0.9-1.1); Prothrombin Time 12.1 Seconds (9.0-12.0)
--- NOTE | 2019-11-11 02:19 | Emergency Department Note ---
History of Present Illness General Chief complaint: Illness Time Seen by Provider: 11/10/19 22:33 Source: patient Mode of arrival: EMS Limitations: no limitations History of Present Illness Maximum Pain Intensity: 5 This patient is a 59-year-old male who presents to the emergency department for evaluation of generalized illness for the past 1 week. Patient reports that he feels like his ammonia is elevated. He states that he has had upper abdominal pain, nausea/vomiting and increased gassiness over the past week. He reports that "his head feels off." He states that he feels "all over the place." He reports that he has felt this way in the past when his ammonia was elevated. He has a history of alcoholic cirrhosis. Denies any recent alcohol use. He denies any blood in his vomit, melena or hematochezia. He denies any fevers, chest pain or shortness of breath. Home Medications Home Medications Medication Instructions Recorded Confirmed Type Xifaxan 550 mg PO BID 11/04/17 11/10/19 History cyanocobalamin (vitamin B-12) 100 mcg PO DAILY 11/04/17 11/10/19 History [Vitamin B-12] folic acid 1 mg PO QAM 11/04/17 11/10/19 History furosemide [Lasix] 40 mg PO BID 11/04/17 11/10/19 History omeprazole 40 mg PO QAM 11/04/17 11/10/19 History spironolactone 100 mg PO BID 11/04/17 11/10/19 History thiamine HCl (vitamin B1) [Vitamin 100 mg PO QAM 11/04/17 11/10/19 History B-1] valacyclovir [Valtrex] 1,000 mg PO HS 11/04/17 11/10/19 History albuterol sulfate [Ventolin HFA] 2 puff INHALATION Q4 PRN 04/30/18 11/10/19 History sildenafil (pulm.hypertension) 40 mg PO WK PRN 08/06/19 11/10/19 History [Revatio] diclofenac sodium 2 g TOPICAL BID PRN 11/10/19 11/10/19 History gabapentin 100 mg PO TID 11/10/19 11/10/19 History sucralfate 1 g PO BID 11/10/19 11/10/19 History duloxetine 60 mg PO BID 11/11/19 11/11/19 History potassium chloride 20 meq PO DAILY 11/11/19 11/11/19 History Allergies Allergy/AdvReac Type Severity Reaction Status Date / Time No Known Allergies Allergy Verified 11/10/19 23:50 Past Med/Surg History Medical History Anxiety Chronic back pain Depression Fusion of spine February 2019 Genital herpes GERD (gastroesophageal reflux disease) Hearing deficit right ear perf eardrum History of alcohol abuse History of anemia History of cirrhosis of liver D/T ALCOHOL History of colon polyps History of hepatitis C Hx of ascites Hx of encephalopathy HEAPTIC Hx of esophageal varices Hx of gynecomastia Hx of thrombocytopenia Hypertension Osteoarthritis Portal hypertensive gastropathy Portal vein thrombosis Urinary tract infection history of Surgical History History of tooth extraction all teeth removed History of total right hip arthroplasty 2018 Hx of decompression of ulnar nerve RIGHT Family History Father Diabetes Other No family history of adverse response to anesthesia Social History Smoking Status: Former smoker Cigarettes Per Day: 1ppd x 2 years; Second Hand Exposure: Yes; Hx Alcohol Use: No Hx Substance Use: No Preferred Language: Iraqi Communication Ability: Effective Salvage Grinder Required: No Beliefs That Will Affect Care: None marital status: / Current Living Situation: Alone Current Living Situation Comment: Lives with friend How many Children do You have: 0 Other Information That Helps Us Care for You: No Feels Safe at Home: Yes Safety Concerns: Feels Safe At This Time Assistive Devices: Cane Review of Systems A total of 10 systems reviewed and were otherwise negative Physical Exam Vital Signs Vital Signs - 24 hr 11/10/19 21:27 11/10/19 21:31 11/10/19 23:00 Temperature 37.0 C Temperature Source Oral Pulse Rate 108 H 105 H 104 H Pulse Rate from SpO2 Sensor 106 H 104 H Respiratory Rate 20 19 16 Respiratory Effort / Characteristics Non-Labored Spontaneous Respiratory Depth Normal Respiratory Pattern Regular Blood Pressure 153/139 H 136/89 126/73 Blood Pressure Mean 143 115 98 Pulse Oximetry 96 96 97 Oxygen Delivery Method Room Air Sepsis Recent Fever Within 48 Hours No Sepsis New/Unexplained Change in Mental Status N/A Sepsis Action Taken by Nursing No Action Required 11/11/19 00:51 Temperature Temperature Source Pulse Rate 99 H Pulse Rate from SpO2 Sensor Respiratory Rate 18 Respiratory Effort / Characteristics Respiratory Depth Respiratory Pattern Blood Pressure 156/87 H Blood Pressure Mean 110 Pulse Oximetry 96 Oxygen Delivery Method Room Air Sepsis Recent Fever Within 48 Hours Sepsis New/Unexplained Change in Mental Status Sepsis Action Taken by Nursing VITALS: Vitals are noted on the nurse's note and reviewed by myself. Vital signs stable. GENERAL: This is a 59-year-old male, in no acute distress, well-developed well- nourished. SKIN: The skin was without rashes. HEAD: Normocephalic atraumatic. EARS: External auditory canals clear, tympanic membranes pearly dorantes without erythema or effusion bilaterally. EYES: Pupils equal round and reactive to light and accommodation. No scleral icterus noted. MOUTH: Mucous membranes moist. Tonsils are not enlarged. Pharynx without erythema or exudate. NECK: Supple without nuchal rigidity. No lymphadenopathy. HEART: Regular rate and rhythm without murmurs gallops or rubs. LUNGS: Clear to auscultation bilaterally without wheezes, rales or rhonchi. ABDOMEN: Positive bowel sounds x 4. Soft, mild epigastric tenderness to palpation. No guarding or rebound tenderness. NEURO: Patient was alert and oriented to person place and time. Course Administered Medications Dextrose/Sodium Chloride (D5w And Nss) 1,000 mls @ 50 mls/hr IV .Q20H AMBER Stop: 11/11/19 18:00 Last Admin: 11/11/19 04:40 Dose: 50 mls/hr Documented by: [id number] Discontinued Medications Ioversol (Ioversol 100ml) 95 ml IV ONCE ONE Stop: 11/10/19 23:28 Last Admin: 11/10/19 23:27 Dose: 95 ml Documented by: [id number] Lactulose (Lactulose Syrup 30 Gm/45 Ml Udp) 30 gm PO NOW STA Stop: 11/11/19 03:47 Last Admin: 11/11/19 04:40 Dose: 30 gm Documented by: [id number] Medical Decision Making Differential Diagnosis Appendicitis, testicular torsion, infections, diverticulitis, UTI, obstruction, mesenteric ischemia, aortic pathology, inflammatory bowel disease, renal colic, PUD, pancreatitis, biliary pathology, hernia, volvulus, constipation, as well as other pathologies. Home Medications Current Medication List: was personally reviewed by me Laboratory Data Attestation: I reviewed the patient's lab results. Result diagrams: 11/10/19 20:58 11/10/19 20:58 Lab Results 11/10/19 11/10/19 11/10/19 Range/Units 20:58 20:58 21:35 WBC 8.71 (4.8-10.8) K/uL RBC 4.40 L (4.7-6.1) M/uL Hgb 15.1 (14.0-18.0) g/dL Hct 42.5 (42-52) % MCV 96.6 (80-100) fL MCH 34.3 H (25-34) pg MCHC 35.5 (32-36) g/dL RDW Std Deviation 55.5 H (36.4-46.3) fL RDW Coeff of Abhijit 15.7 H (11.5-14.5) % Plt Count 62 L (130-400) K/uL MPV 11.7 H (7.4-10.4) fL Immature Gran % (Auto) 0.3 % Neut % (Auto) 71.9 % Lymph % (Auto) 12.1 % Guthrie % (Auto) 13.1 % Eos % (Auto) 2.5 % Baso % (Auto) 0.1 % Neut # (Auto) 6.26 (1.4-6.5) K/uL Lymph # (Auto) 1.05 L (1.2-3.4) K/uL Guthrie # (Auto) 1.14 H (0.11-0.59) K/uL Eos # (Auto) 0.22 (0-0.5) K/uL Baso # (Auto) 0.01 (0-0.2) K/uL Immature Gran # (Auto) 0.03 H (0.00-0.02) K/uL PT (9.0-12.0) Seconds INR (0.9-1.1) Sodium 137 (136-145) mmol/L Potassium 3.8 (3.5-5.1) mmol/L Chloride 104 (98-107) mmol/L Carbon Dioxide 25 (21-32) mmol/L Anion Gap 8.0 (3-11) BUN 21 H (7-18) mg/dl Creatinine 1.13 (0.6-1.4) mg/dl Est Cr Clr Drug Dosing Not Reportable Est GFR ( Amer) 82.0 Est GFR (Non-Af Amer) 70.8 BUN/Creatinine Ratio 18.5 (10-20) Glucose 148 H (70-99) mg/dl Calcium 9.1 (8.5-10.1) mg/dl Total Bilirubin 3.0 H (0.2-1) mg/dl AST 56 H (15-37) U/L ALT 60 (12-78) U/L Alkaline Phosphatase 128 H (45-117) U/L Ammonia (11-32) umol/L Total Protein 6.6 (6.4-8.2) gm/dl Albumin 2.9 L (3.4-5.0) gm/dl Globulin 3.7 (2.5-4.0) gm/dl Albumin/Globulin Ratio 0.8 L (0.9-2) Specimen Hemolysis Urine Color Yellow Urine Appearance Clear (Clear) Urine pH 6.0 (4.5-7.5) Ur Specific Coy 1.014 (1.000-1.030) Urine Protein Negative (Negative) Urine Glucose (UA) Negative (Negative) Urine Ketones Negative (Negative) Urine Blood Negative (Negative) Urine Nitrite Negative (Negative) Urine Bilirubin Negative (Negative) Urine Urobilinogen Negative (Negative) Ur Leukocyte Esterase Negative (Negative) 11/10/19 11/10/19 Range/Units 23:56 23:56 WBC (4.8-10.8) K/uL RBC (4.7-6.1) M/uL Hgb (14.0-18.0) g/dL Hct (42-52) % MCV (80-100) fL MCH (25-34) pg MCHC (32-36) g/dL RDW Std Deviation (36.4-46.3) fL RDW Coeff of Abhijit (11.5-14.5) % Plt Count (130-400) K/uL MPV (7.4-10.4) fL Immature Gran % (Auto) % Neut % (Auto) % Lymph % (Auto) % Guthrie % (Auto) % Eos % (Auto) % Baso % (Auto) % Neut # (Auto) (1.4-6.5) K/uL Lymph # (Auto) (1.2-3.4) K/uL Guthrie # (Auto) (0.11-0.59) K/uL Eos # (Auto) (0-0.5) K/uL Baso # (Auto) (0-0.2) K/uL Immature Gran # (Auto) (0.00-0.02) K/uL PT 12.1 H (9.0-12.0) Seconds INR 1.2 H (0.9-1.1) Sodium (136-145) mmol/L Potassium (3.5-5.1) mmol/L Chloride (98-107) mmol/L Carbon Dioxide (21-32) mmol/L Anion Gap (3-11) BUN (7-18) mg/dl Creatinine (0.6-1.4) mg/dl Est Cr Clr Drug Dosing Est GFR ( Amer) Est GFR (Non-Af Amer) BUN/Creatinine Ratio (10-20) Glucose (70-99) mg/dl Calcium (8.5-10.1) mg/dl Total Bilirubin (0.2-1) mg/dl AST (15-37) U/L ALT (12-78) U/L Alkaline Phosphatase (45-117) U/L Ammonia 132.0 H (11-32) umol/L Total Protein (6.4-8.2) gm/dl Albumin (3.4-5.0) gm/dl Globulin (2.5-4.0) gm/dl Albumin/Globulin Ratio (0.9-2) Specimen Hemolysis Urine Color Urine Appearance (Clear) Urine pH (4.5-7.5) Ur Specific Coy (1.000-1.030) Urine Protein (Negative) Urine Glucose (UA) (Negative) Urine Ketones (Negative) Urine Blood (Negative) Urine Nitrite (Negative) Urine Bilirubin (Negative) Urine Urobilinogen (Negative) Ur Leukocyte Esterase (Negative) Imaging Data Attestation: I personally reviewed and interpreted this imaging study as follows: Radiologist's Impression: CT ABDOMEN & PELVIS With Contrast: The liver is somewhat small and nodular. There are signs of cirrhosis including splenomegaly measuring 15 cm craniocaudad, a recanalized paraumbilical vein, and a large portal systemic collateral vein in the central mesentery measuring 1.6 cm in diameter. No ascites. No focal liver mass lesion is seen. The pancreas, adrenal glands, and kidneys are unremarkable. Bowel loops are nondilated but no pneumoperitoneum, free fluid, or acute focal inflammatory changes are seen involving the bowel. Degenerative changes in the spine with previous instrumentation and fusion of L3-4. There is a right hip arthroplasty. Radiologist: Fredo Olmos MD ECG Data Rate (beats per minute): 107 Rhythm: + normal sinus ECG ST segments: + Normal ST segments ECG Findings: + Other (low voltage QRS) Change: no significant change MDM Narrative The patient is a 59-year-old male who presents today complaining of upper abdominal pain and confusion. Patient feels similar to when his ammonia has been elevated in the past. Labs revealed no leukocytosis or anemia. Patient has a stable thrombocytopenia. INR is 1.2 which is unchanged. Bilirubin is elevated at 3.0, which is up from the patient's baseline. Patient's ammonia found to be significantly elevated at 132, which is well above the patient's baseline. The case was discussed with the [facility] hospitalist, who agreed to evaluate the patient for inpatient care. Impression & Plan Hyperammonemia, Encephalopathy, hepatic Discharge Plan Visit Data Chief Complaint: Illness ED Provider: Dylan Alaniz ED Midlevel Provider: Emma Aguilera Discharge Problem: Hyperammonemia, Encephalopathy, hepatic Patient Disposition: Admitted As Inpatient Discharge Instructions Interventions: ED Discharge Assessment Last Done: 11/11/19 03:11
--- NOTE | 2019-11-11 02:54 | History and Physical Report ---
DATE OF ADMISSION: 11/11/2019 CHIEF COMPLAINT: Not feeling well, elevated ammonia. HISTORY OF PRESENT ILLNESS: This is a 59-year-old male with past medical history significant for alcoholic liver cirrhosis, alcoholism in remission, history of portal hypertensive gastropathy, GERD, without esophagitis, hypertension, portal vein thrombosis, esophageal varices, peripheral neuropathy, history of thrombocytopenia, history of pancytopenia, history of cocaine use disorder in remission; cannabis use disorder in remission, gynecomastia, ambulatory dysfunction, anxiety, depression, who lives with a roommate, comes because of not feeling well since last 1 week. He says he does not feel good. Loss of appetite and he is also having abdominal pain. He says he has burning micturition yesterday, his home nurse told him he might have got UTI. Denies any fever, chills. Denies any cough, no loss of sense of smell or taste. No exposure to COVID patients. Denies any headache, no blurred vision, no earache, no runny nose, no sore throat. No dysphagia, no chest pain. He is always short of breath, no cough. He says he is taking his lactulose, but he says has a small amount of bowel movement today. He is trying to go, but is not coming. No swelling in the legs. Currently resting comfortably and hemodynamically stable and alert and oriented. ALLERGIES: No known drug allergies. PAST MEDICAL HISTORY: As mentioned above. PAST SURGICAL HISTORY: History of paracentesis, right, colonoscopy, dental procedure, EGDs, ulnar nerve surgery, back surgery, sacroiliac joint injection, right total hip replacement. MEDICATIONS: As per [facility]. The patient is on Lasix 40 mg p.o. b.i.d., lactulose 10 mg 1-2 packet daily for 2-3 bowel movements a day, rifaximin 550 mg p.o. b.i.d., albuterol 2 puffs every 4 hours p.r.n., diclofenac sodium 1 gm topically to affected area b.i.d. p.r.n., duloxetine 60 mg p.o. daily, Flonase 2 sprays into each nostril daily, folic acid 1 mg p.o. daily, Prilosec 40 mg p.o. daily, potassium chloride 20 mEq p.o. daily, Revatio 20 mg 2 tablets once a week, spironolactone 100 mg p.o. b.i.d., valacyclovir 1 gram p.o. daily, vitamin B1 100 mg p.o. daily, vitamin B12 100 mcg p.o. daily. FAMILY HISTORY: Significant for sister has alcoholism, mother has lymphoma. Father has diabetes. SOCIAL HISTORY: . Former smoker, quit in , smoked 1 pack a day for 15 years. Snuffs tobacco 1 can every 3 days. History of alcoholism, last drink was in 2013, stopped crank, marijuana prior to . REVIEW OF SYMPTOMS: As per HPI. Rest of review of symptoms negative. PHYSICAL EXAMINATION: GENERAL: The patient is of moderate build, not in acute distress. VITAL SIGNS: Temperature 37, pulse 99, respiratory rate 18, blood pressure 156/87, oxygen 96% on room air. HEENT: No pallor. Pupils equal, round, and reactive to light. Oral mucosa moist. NECK: No JVD, no neck masses. CARDIOVASCULAR: S1, S2 heard, regular rate and rhythm, no murmur, no gallop. RESPIRATORY SYSTEM: Normal AP diameter. No accessory muscle use. No wheezing, no crackles. ABDOMEN: Soft, bowel sounds present, nontender. No distention. CENTRAL NERVOUS SYSTEM: Cranial nerves II-XII grossly intact, nonfocal. EXTREMITIES: No edema, no erythema. LABORATORY DATA: WBC 8.7, hemoglobin 15.1, hematocrit 42.5, platelets 62. PT 12.1, INR 1.2. Sodium 137, potassium 3.8, chloride 104, bicarbonate 25, BUN 21, creatinine 1.1, serum glucose 148, calcium 9.1, total bilirubin 3, AST 56, ALT 60, alkaline phosphatase 128. Ammonia 132. Urinalysis negative. IMAGING: CT of abdomen and pelvis, no ascites, liver cirrhosis seen. EKG: Sinus tachycardia at a rate of 107, no significant change from previous EKG. ASSESSMENT AND PLAN: A 59-year-old male who presents with not feeling well since 1 week, poor appetite and found to have elevated ammonia. 1. Elevated ammonia. The patient is not confused. The patient has liver cirrhosis, he says he takes lactulose, but he is not moving his bowels well, so I have place on lactulose 30 grams q.i.d. and recheck ammonia levels and consult GI in the a.m. for further recommendation, and adjustment of medication. Abdominal pain but Ct scan no ascites. 2. Elevated total bilirubin. The patient has liver cirrhosis, not drinking alcohol currently, we will follow the repeat labs .Await GI input. 3. Alcohol liver cirrhosis. Continue his home Lasix and Aldactone. The patient also potassium supplements. We will follow the labs. 4. History of thrombocytopenia secondary to liver cirrhosis. Follow the labs. 5. History of depression and anxiety, seem to be on duloxetine as per Epic. Will check with patient when he is more stable. 6. Chronic anemia, hemoglobin 15.. We will follow the labs. 7. Deep venous thrombosis prophylaxis, sequential compression devices. DISPOSITION: Admit to med/tele. PT and OT prior to discharge. Social service help with discharge planning. Level 1 full code. MTDD
[2019-11-11] MEDS ORDERED: DICLOFENAC SOD 1% GEL 100 GM TUBE EXT PRN (03:46)
[2019-11-11] MEDS ORDERED: ALBUTEROL HFA 8 GM INHALER INH PRN (03:46)
[2019-11-11] MEDS ORDERED: LACTULOSE SYRUP 30 GM/45 ML UDP PO STA (03:46)
[2019-11-11] MEDS ORDERED: NITROGLYCERIN SL 0.4 MG/TAB TAB SL PRN (03:46)
[2019-11-11] MEDS ORDERED: ONDANSETRON INJ 2 MG/ML 2 ML VIAL IV PRN (03:46)
[2019-11-11] MEDS ORDERED: D5W AND NSS 1,000 ML IV SCH (03:46)
[2019-11-11 07:20] LABS: Hematocrit (blood only) 40.5 % (42-52); Hemoglobin 14.2 g/dL (14.0-18.0); Mean Corpuscular Hemoglobin 33.9 pg (25-34); Mean Corpuscular Hgb Conc 35.1 g/dL (32-36); Mean Corpuscular Volume 96.7 fL (80-100); Platelet Count 52 K/uL (130-400); RDW Standard Deviation 56.7 fL (36.4-46.3); Red Blood Count 4.19 M/uL (4.7-6.1); White Blood Count 6.32 K/uL (4.8-10.8)
--- NOTE | 2019-11-11 07:26 | CT Scan Report ---
CT abd pelvis IV con only CLINICAL HISTORY: Upper abdominal pain. History of cirrhosis. COMPARISON STUDY: May 04, 2017 TECHNIQUE: The patient was scanned in a dynamic helical fashion during the intravenous administration of 95 cc of Optiray 320 A dose lowering technique was utilized adhering to the principles of ALARA. CT DOSE: 611.98 mGy.cm FINDINGS: Lower chest: There are pericardial calcifications. There is no significant pericardial effusion. Ther e are no significant pleural effusions Liver: The liver has a cirrhotic morphology. No focal masses are visualized. The portal vein appears patent. There is recanalization of the umbilical vein. There are multiple varices. Gallbladder: Contracted which likely explains the minimal thickened wall Spleen: Enlarged measuring 15.5 cm Pancreas: Unremarkable. Adrenal glands: Unremarkable. Kidneys: There is symmetric renal cortical enhancement. The kidneys are normal in size without hydron ephrosis. Bowel: There are no transition zones indicate bowel obstruction. There is no evidence of acute divert iculitis. The appendix appears normal Peritoneum: There is no intraperitoneal free air or abdominal ascites. There is a tiny umbilical jessica ia. A small bowel loop is beginning to insinuate into itself into the base the hernia. No obstructive changes are evident the Vasculature: The abdominal aorta is normal in course and caliber. Adenopathy: None. Pelvic viscera: The uterus is surgically Skeletal structures: No destructive lesions are visualized. The patient is status post a total right hip arthroplasty. Postsurgical changes are present within the lumbar spine. There are bilateral L5 pa rs defects. At the L4 level, there is a pars fracture as well as a fracture the superior articulating facet IMPRESSION: 1. Hepatic cirrhosis, multiple large varices, and splenomegaly 2. No evidence of bowel structure. No evidence of free air 3. No acute inflammatory changes ACT 112: Negative or not required by law. Electronically signed by: Layo Murillo M.D. 11/11/2019 7:24 AM
[2019-11-11 07:38] LABS: Eosinophils # (auto) 0.29 K/uL (0-0.5); Eosinophils % (auto) 4.6 %; Immature Granulocytes # (auto) 0.03 K/uL (0.00-0.02); Immature Granulocytes % (auto) 0.5 %; Lymphocytes # (auto) 1.18 K/uL (1.2-3.4); Lymphocytes % (auto) 18.7 %; Monocytes # (auto) 0.95 K/uL (0.11-0.59); Neutrophils # (auto) 3.87 K/uL (1.4-6.5); Neutrophils % (auto) 61.2 %
[2019-11-11 07:43] LABS: Calcium 8.8 mg/dl (8.5-10.1); Creatinine Clr Calc Pharmacy 82.9 ml/min; Est GFR (African American) 97.4; Est GFR (Non-African American) 84.1; Magnesium 2.2 mg/dl (1.8-2.4); Potassium 3.6 mmol/L (3.5-5.1)
[2019-11-11] MEDS: LACTULOSE SYRUP 30 GM/45 ML UDP PO SCH ×3 (08:10→16:27)
[2019-11-11] MEDS: FUROSEMIDE 40 MG TAB PO SCH ×2 (08:10→16:27)
[2019-11-11] MEDS: SPIRONOLACTONE 100 MG TAB PO SCH ×2 (08:10→16:27)
[2019-11-11] MEDS ORDERED: RIFAXIMIN 550 MG TABLET PO SCH (09:00)
[2019-11-11] MEDS ORDERED: SUCRALFATE 1 GM TAB PO SCH (09:00)
[2019-11-11] MEDS ORDERED: FOLIC ACID 1 MG TAB PO SCH (09:00)
[2019-11-11] MEDS ORDERED: THIAMINE HCL 100 MG TAB PO SCH (09:00)
[2019-11-11] MEDS ORDERED: PANTOprazole 40 MG TAB PO SCH (09:00)
[2019-11-11] MEDS ORDERED: CYANOCOBALAMIN (VITAMIN B-12) 100 MCG TABLET PO SCH (09:00)
--- NOTE | 2019-11-11 09:42 | Gastrointestinal Consultation ---
Date of Consultation November 11, 2019 Assessment & Plan (1) Alcoholic cirrhosis: (2) Encephalopathy, hepatic: (3) Abdominal pain: Pt is a 59 y/o male w ETOH cirrhosis, portal HTN, varices (baseline MELD 10), admitted overnight for nausea, abd discomfort, burning urination symptoms. No leukocytosis, UA normal, CT abd/pelvis w/o signs of inflammatory/obstructive changes. Noted on LFTs, Tbili up around 3. Ammonia 130s, suspected due to less stool output despite Lactulose/Rifaximin uses at home. On exam today, he's seen eating solid breakfast, abd generalized tenderness on palpation - Continue current doses of Lactulose and Rifaximin. Goal BM 3-5x a day - Obtain CXR to r/o infectious process; MRCP to r/o biliary obstruction - Continue routine f/u in outpt GI clinic for cirrhosis care. Supervising Physician Co-Signing Physician Notes I performed a history and physical examination of the patient today, including specifically on physical exam - soft abdomen. I have discussed the patient's management with the advanced practitioner. Please refer to the nurse practitioner's note for the documented findings and plan of care. Obtain MRCP. Septic work up. Lactulose + Xifaxan. History of Present Illness Reason for Consultation: Cirrhosis, elevated ammonia Requesting Physician: Dr. Marissa Bower Attending Physician: Dr. Rich Person History of Present Illness Pt is a 59 y/o male w hx of ETOH cirrhosis complicated by portal HTN, varices who presented yesterday w generalized feeling of unwell. He noted low appetite and abd discomfort in last few days. Also burning w urination. On eval not signs of leukocytosis, no anemia, he denies any s/s of dong GI bleeding. It's noted that his Tbili is up at 3, baseline around 1. Ammonia level 130s. Though he is taking Lactulose and Rifaximin at home, he noted smaller amt of stools in last few days. On exam today, he is AAOx3, in NAD, mild asterixis. He has generalized abd tenderness, but no n/v, he is eating solid breakfast. Last EGD 08/2019: grade I varices, portal HTN; recall 1 year Last colonoscopy 12/2018: hyperplastic polyp; recall [address] abd/pelvis w contrast: 1. Hepatic cirrhosis, multiple large varices, and splenomegaly 2. No evidence of bowel structure. No evidence of free air 3. No acute inflammatory change Allergies Allergy/AdvReac Type Severity Reaction Status Date / Time No Known Allergies Allergy Verified 11/10/19 23:50 Home Medications Home Medications Medication Instructions Recorded Confirmed Type Xifaxan 550 mg PO BID 11/04/17 11/10/19 History cyanocobalamin (vitamin B-12) 100 mcg PO DAILY 11/04/17 11/10/19 History [Vitamin B-12] folic acid 1 mg PO QAM 11/04/17 11/10/19 History furosemide [Lasix] 40 mg PO BID 11/04/17 11/10/19 History omeprazole 40 mg PO QAM 11/04/17 11/10/19 History spironolactone 100 mg PO BID 11/04/17 11/10/19 History thiamine HCl (vitamin B1) [Vitamin 100 mg PO QAM 11/04/17 11/10/19 History B-1] valacyclovir [Valtrex] 1,000 mg PO HS 11/04/17 11/10/19 History albuterol sulfate [Ventolin HFA] 2 puff INHALATION Q4 PRN 04/30/18 11/10/19 History sildenafil (pulm.hypertension) 40 mg PO WK PRN 08/06/19 11/10/19 History [Revatio] diclofenac sodium 2 g TOPICAL BID PRN 11/10/19 11/10/19 History gabapentin 100 mg PO TID 11/10/19 11/10/19 History sucralfate 1 g PO BID 11/10/19 11/10/19 History duloxetine 60 mg PO BID 11/11/19 11/11/19 History potassium chloride 20 meq PO DAILY 11/11/19 11/11/19 History Patient History Medical History Anxiety Chronic back pain Depression Fusion of spine February 2019 Genital herpes GERD (gastroesophageal reflux disease) Hearing deficit right ear perf eardrum History of alcohol abuse History of anemia History of cirrhosis of liver D/T ALCOHOL History of colon polyps History of hepatitis C Hx of ascites Hx of encephalopathy HEAPTIC Hx of esophageal varices Hx of gynecomastia Hx of thrombocytopenia Hypertension Osteoarthritis Portal hypertensive gastropathy Portal vein thrombosis Urinary tract infection history of Surgical History History of tooth extraction all teeth removed History of total right hip arthroplasty 2019 Sept Hx of decompression of ulnar nerve RIGHT Family History Father Diabetes Other No family history of adverse response to anesthesia Social History Smoking Status: Former smoker Cigarettes Per Day: 1ppd x 2 years; Second Hand Exposure: Yes; Hx Alcohol Use: No Hx Substance Use: No Preferred Language: Yemeni Communication Ability: Effective Radial Drill Operator Required: No Beliefs That Will Affect Care: None marital status: Single Current Living Situation: Alone Current Living Situation Comment: Lives with friend How many Children do You have: 0 Other Information That Helps Us Care for You: No Feels Safe at Home: Yes Safety Concerns: Feels Safe At This Time Assistive Devices: Cane and Glasses Review of Systems Review of Systems: All systems reviewed & are unremarkable except as noted in HPI & below Physical Exam Constitutional: WD/WN, vitals as above well groomed, cooperative and comfortable Eyes: PERRL, conjunctivae normal, anicteric sclerae ENMT: external ear and nose normal, oropharynx normal Respiratory: normal respiratory effort, lungs clear to auscultation Cardiovascular: RRR, no murmur, no edema Gastrointestinal (Abdomen): Inspection/Auscultation: normal bowel sounds Percussion/Palpation: + abdomen tender (generalized) and abdomen soft Skin: no rashes, warm and dry no jaundice Neurologic: Motor/Sensory: + asterixis (mild) Psychiatric: A+Ox3, euthymic affect Lymphatic: no lymphedema Results & Data ([facility]) Vital Signs (Past 12 Hours) Vital Signs Temp Pulse Pulse Resp BP BP Pulse Ox 11/11/19 08:00 36.5 C 111 H 111 H 22 142/86 H 95 11/11/19 05:28 98 H 15 133/81 95 11/11/19 04:28 73 16 153/72 H 96 11/11/19 03:40 36.7 C 91 H 16 135/79 96 11/11/19 03:15 102 H 20 148/92 H 98 11/11/19 00:51 99 H 18 156/87 H 96 11/10/19 23:00 104 H 16 126/73 97
--- NOTE | 2019-11-11 13:48 | XRay Report ---
XR chest 2V PA/lateral CLINICAL HISTORY: Cough. COMPARISON STUDY: Chest radiograph August 06, 2019. FINDINGS: Lung volumes are normal. Lungs are clear. There is no pneumothorax or pleural effusion. Car diac size is normal. Mediastinal contours are normal. There is no evidence for pulmonary edema. IMPRESSION: No acute cardiopulmonary findings. No change in appearance of the chest. ACT 112: Negative or not required by law. Electronically signed by: Leonardo Brewster M.D. 11/11/2019 1:47 PM
--- NOTE | 2019-11-11 15:48 | Hospitalist Progress Note ---
Date of Service November 11, 2019 Assessment & Plan (1) Abdominal pain: History of alcoholic cirrhosis with portal hypertension and varices was admitted with nausea and abdominal discomfort CT scan of the abdomen remains unremarkable Complains to have abdominal discomfort Could be secondary to ulcer disease, stretching of the liver capsule and/or splenomegaly We will continue Protonix and sucralfate and try Maalox and or Mylanta on top of that (2) Alcoholic cirrhosis: History of alcoholic cirrhosis with varices thrombocytopenia, splenomegaly and portal hypertension. Appreciate GI input and recommendation Will have MRCP (3) Generalized weakness: Secondary to comorbid conditions Does not have any infection during this time PT and OT evaluation (4) Hyperammonemia: Noted to have ammonia more than 130 No acute confusion, hepatic flap is negative No encephalopathy We will continue lactulose to have regular bowel movement (5) Thrombocytopenia: Has multiple generalized bruising Letter count is low at 52 Depression and anxiety Continue current medication DVT prophylaxis STD Admission and Anticipated Discharge Date Admission Date: November 11, 2019 Subjective 11/11/2019 Patient was seen and examined in ICU He was admitted with generalized weakness not feeling well and noted to have high ammonia Complains of epigastric discomfort with some nausea but no vomiting Denies any other symptoms Review of Systems Review of Systems: All systems reviewed and are unremarkable except as noted below Gastrointestinal: + abdominal pain (Epigastric discomfort), + bloating and + nausea; no vomiting Integumentary: + unusual bruising Physical Exam Physical Exam: Lying in bed with some distress secondary to epigastric discomfort Constitutional: well developed, well nourished, + ill appearing and + obese Eyes: PERRL, conjunctivae normal, anicteric sclerae ENMT: external ear and nose normal, oropharynx normal Neck: trachea midline, no thyromegaly Respiratory: normal respiratory effort; no respiratory distress Auscultation: lungs clear to auscultation bilaterally Cardiovascular: Rate/Rhythm: regular rate and regular rhythm Heart Sounds: no murmur Gastrointestinal (Abdomen): Inspection/Auscultation: + abdomen distended and normal bowel sounds Percussion/Palpation: + abdomen tender (Minimally tender upper quadrants mainly in the epigastrium) Musculoskeletal: No acute arthritis involving any joints Skin: Generalized bruising Psychiatric: Orientation: alert Insight: + limited insight Lymphatic: no cervical or axillary lymphadenopathy Results & Data Results & Data ([facility]) Vital Signs (Past 12 Hours) Vital Signs Temp Pulse Pulse Resp BP BP Pulse Ox 11/11/19 08:00 36.5 C 111 H 111 H 22 142/86 H 95 11/11/19 05:28 98 H 15 133/81 95 11/11/19 04:28 73 16 153/72 H 96 11/11/19 03:40 36.7 C 91 H 16 135/79 96 Laboratory Results Short CBC 11/10/19 11/11/19 Range/Units 20:58 07:02 WBC 8.71 6.32 (4.8-10.8) K/uL Hgb 15.1 14.2 (14.0-18.0) g/dL Hct 42.5 40.5 L (42-52) % Plt Count 62 L 52 L (130-400) K/uL BMP 11/10/19 11/11/19 20:58 07:02 Sodium 137 138 Potassium 3.8 3.6 Chloride 104 105 Carbon Dioxide 25 28 BUN 21 H 19 H Creatinine 1.13 0.98 Glucose 148 H 149 H Calcium 9.1 8.8 Liver Function 11/10/19 Range/Units 20:58 Total Bilirubin 3.0 H (0.2-1) mg/dl AST 56 H (15-37) U/L ALT 60 (12-78) U/L Alkaline Phosphatase 128 H (45-117) U/L Albumin 2.9 L (3.4-5.0) gm/dl Urine 11/10/19 Range/Units 21:35 Urine Color Yellow Urine Appearance Clear (Clear) Urine pH 6.0 (4.5-7.5) Ur Specific [place] 1.014 (1.000-1.030) Urine Protein Negative (Negative) Urine Glucose (UA) Negative (Negative) Medications Administered Current Inpatient Medications Albuterol (Albuterol Hfa 8 Gm Inhaler) 2 puffs INH Q4 PRN PRN Reason: Shortness Of Breath Stop: 12/11/19 03:45 Cyanocobalamin (Cyanocobalamin (Vitamin B-12) 100 Mcg Tablet) 100 mcg PO DAILY AMBER Stop: 12/11/19 08:59 Last Admin: 11/11/19 08:10 Dose: 100 mcg Documented by: Diclofenac Sodium (Diclofenac Sod 1% Gel 100 Gm Tube) 2 gm EXT BID PRN PRN Reason: Pain Stop: 12/11/19 03:45 Folic Acid (Folic Acid 1 Mg Tab) 1 mg PO QAM [facility] Stop: 12/11/19 08:59 Last Admin: 11/11/19 08:10 Dose: 1 mg Documented by: Furosemide (Furosemide 40 Mg Tab) 40 mg PO BID17 [facility] Stop: 12/11/19 08:59 Last Admin: 11/11/19 08:10 Dose: 40 mg Documented by: Dextrose/Sodium Chloride (D5w And Nss) 1,000 mls @ 50 mls/hr IV .Q20H AMBER Stop: 11/11/19 18:00 Last Admin: 11/11/19 04:40 Dose: 50 mls/hr Documented by: Lactulose (Lactulose Syrup 30 Gm/45 Ml Udp) 30 gm PO QID [facility] Stop: 12/11/19 08:59 Last Admin: 11/11/19 13:05 Dose: 30 gm Documented by: Nitroglycerin (Nitroglycerin Sl 0.4 Mg/Tab Tab) 0.4 mg SL UD PRN PRN Reason: Chest Pain Stop: 12/11/19 03:45 Ondansetron HCl (Ondansetron Inj 2 Mg/Ml 2 Ml Vial) 4 mg IV Q6H PRN PRN Reason: Nausea Stop: 12/11/19 03:45 Pantoprazole Sodium (Pantoprazole 40 Mg Tab) [facility] Stop: 12/11/19 08:59 Last Admin: 11/11/19 08:10 Dose: 40 mg Documented by: Rifaximin (Rifaximin 550 Mg Tablet) 550 mg PO BID [facility] Stop: 12/11/19 08:59 Last Admin: 11/11/19 08:10 Dose: 550 mg Documented by: Spironolactone (Spironolactone 100 Mg Tab) 100 mg PO BID17 [facility] Stop: 12/11/19 08:59 Last Admin: 11/11/19 08:10 Dose: 100 mg Documented by: Sucralfate (Sucralfate 1 Gm Tab) 1 gm PO BID [facility] Stop: 12/11/19 08:59 Last Admin: 11/11/19 08:10 Dose: 1 gm Documented by: Thiamine HCl (Thiamine Hcl 100 Mg Tab) 100 mg PO QAM [facility] Stop: 12/11/19 08:59 Last Admin: 11/11/19 08:10 Dose: 100 mg Documented by: Valacyclovir HCl (Valacyclovir Hcl 500 Mg Tablet) 1,000 mg PO [facility]; Protocol Stop: 12/11/19 20:59
--- NOTE | 2019-11-11 16:44 | Magnetic Resonance Report ---
MRCP CLINICAL HISTORY: Generalized abdominal pain. Elevated bilirubin. COMPARISON STUDY: Abdominal CT dated 11/10/2019. Abdominal ultrasound dated 05/04/2017. TECHNIQUE: Abdominal MRCP is performed utilizing various T2-weighted sequences in the axial and coron al planes. IV contrast was not administered for this examination. 3-D reformats are created and asses sed. The examination is degraded by motion artifact. FINDINGS: Mild gallbladder wall thickening is likely related to cirrhosis. No gallstones are identified. There is no intra or extrahepatic biliary ductal dilatation. The common bile duct measures up to 3.5 mm in diameter. There are no intraluminal filling defects to suggest choledocholithiasis. The pancreatic du ct is normal in caliber. The liver is cirrhotic in morphology and heterogeneous in signal intensity. There is recanalization o f the periumbilical vein. The spleen is enlarged, measuring 14.1 cm in length. The unenhanced pancrea s, kidneys, and adrenal glands are grossly normal. The abdominal aorta is normal in caliber. There is no abdominal ascites. No bowel obstruction is seen. No abdominal lymphadenopathy is identified. Fusi on hardware is noted in the lumbar spine. There is no pleural effusion. Esophageal varices are noted. IMPRESSION: 1. Normal MRCP. 2. Cirrhosis. 3. Splenomegaly, a recanalized umbilical vein, and esophageal varices indicate portal hypertension. 4. Mild gallbladder wall thickening is likely related to adjacent hepatocellular disease. Dictated: 11/11/2019 4:15 PM Transcribed: 11/11/2019 4:27 PM Vicki [id number] [email or web address] Electronically signed by: Jamil Freedman M.D. 11/11/2019 4:43 PM
--- NOTE | 2019-11-11 17:22 | Electrocardiogram Report ---
Test Reason : Blood Pressure : / mmHG Vent. Rate : 107 BPM Atrial Rate : 107 BPM P-R Int : 150 ms QRS Dur : 084 ms QT Int : 362 ms P-R-T Axes : 071 051 066 degrees QTc Int : 483 ms Sinus tachycardia Possible Left atrial enlargement Low voltage QRS Abnormal ECG When compared with ECG of 06-AUG-2019 16:53, No significant change was found Confirmed by Rey Edwards ([id number]) on 11/11/2019 5:22:04 PM Referred By: REFERRED SELF Confirmed By:Jac Edwards
[2019-11-11] MEDS ORDERED: VALACYCLOVIR HCL 500 MG TABLET PO SCH (21:00)
--- NOTE | 2019-11-12 10:32 | Discharge Summary ---
Date of Service November 12, 2019 Admission HPI Per Admitting Provider DICTATED BY: Maynor Snyder MD DATE OF ADMISSION: 11/11/2019 CHIEF COMPLAINT: Not feeling well, elevated ammonia. HISTORY OF PRESENT ILLNESS: This is a 59-year-old male with past medical history significant for alcoholic liver cirrhosis, alcoholism in remission, history of portal hypertensive gastropathy, GERD, without esophagitis, hypertension, portal vein thrombosis, esophageal varices, peripheral neuropathy, history of thrombocytopenia, history of pancytopenia, history of cocaine use disorder in remission; cannabis use disorder in remission, gynecomastia, ambulatory dysfunction, anxiety, depression, who lives with a roommate, comes because of not feeling well since last 1 week. He says he does not feel good. Loss of appetite and he is also having abdominal pain. He says he has burning micturition yesterday, his home nurse told him he might have got UTI. Denies any fever, chills. Denies any cough, no loss of sense of smell or taste. No exposure to COVID patients. Denies any headache, no blurred vision, no earache, no runny nose, no sore throat. No dysphagia, no chest pain. He is always short of breath, no cough. He says he is taking his lactulose, but he says has a small amount of bowel movement today. He is trying to go, but is not coming. No swelling in the legs. Currently resting comfortably and hemodynamically stable and alert and oriented. Admission Exam Per Admitting Provider GENERAL: The patient is of moderate build, not in acute distress. VITAL SIGNS: Temperature 37, pulse 99, respiratory rate 18, blood pressure 156/87, oxygen 96% on room air. HEENT: No pallor. Pupils equal, round, and reactive to light. Oral mucosa moist. NECK: No JVD, no neck masses. CARDIOVASCULAR: S1, S2 heard, regular rate and rhythm, no murmur, no gallop. RESPIRATORY SYSTEM: Normal AP diameter. No accessory muscle use. No wheezing, no crackles. ABDOMEN: Soft, bowel sounds present, nontender. No distention. CENTRAL NERVOUS SYSTEM: Cranial nerves II-XII grossly intact, nonfocal. EXTREMITIES: No edema, no erythema. Principal Diagnosis Alcoholic cirrhosis, abdominal discomfort-no significant colitis found, generalized weakness, diarrhea secondary to overuse of lactulose Discharge Exam Constitutional well developed, well nourished, + ill appearing and + obese Eyes PERRL, conjunctivae normal, anicteric sclerae ENMT external ear and nose normal, oropharynx normal Neck trachea midline, no thyromegaly Respiratory normal respiratory effort; no respiratory distress Auscultation: lungs clear to auscultation bilaterally Cardiovascular Rate/Rhythm: regular rate and regular rhythm Heart Sounds: no murmur Gastrointestinal (Abdomen) Inspection/Auscultation: + abdomen distended and normal bowel sounds Percussion/Palpation: + abdomen tender (Minimally tender upper quadrants mainly in the epigastrium) Psychiatric Orientation: alert Insight: + limited insight Lymphatic no cervical or axillary lymphadenopathy Discharge Data Allergies Allergy/AdvReac Type Severity Reaction Status Date / Time No Known Allergies Allergy Verified 11/10/19 23:50 Consultations 11/11/19 00:44 ED Decision to Admit Stat 11/11/19 03:46 Consult Case Management - Discharge Planning Routine 11/11/19 08:00 Consult Gastroenterology Routine Ordered Studies 11/10/19 22:43 CT abd pelvis IV con only Urgent 11/11/19 09:42 MR MRCP Routine Hospital Course (1) Abdominal pain: History of alcoholic cirrhosis with portal hypertension and varices was admitted with nausea and abdominal discomfort CT scan of the abdomen remains unremarkable Complains to have abdominal discomfort Could be secondary to ulcer disease, stretching of the liver capsule and/or splenomegaly We will continue Protonix and sucralfate and try Maalox and or Mylanta on top of that (2) Alcoholic cirrhosis: History of alcoholic cirrhosis with varices thrombocytopenia, splenomegaly and portal hypertension. Appreciate GI input and recommendation Will have MRCP (3) Generalized weakness: Secondary to comorbid conditions Does not have any infection during this time PT and OT evaluation (4) Hyperammonemia: Noted to have ammonia more than 130 No acute confusion, hepatic flap is negative No encephalopathy We will continue lactulose to have regular bowel movement (5) Thrombocytopenia: Has multiple generalized bruising Letter count is low at 52 Depression and anxiety Continue current medication DVT prophylaxis STD Total Time Total Time Spent Total Time Spent (In Minutes): 35 minutes Total Time Includes: Examination of the Patient, Discharge Planning, Medication Reconciliation and Communication With Other Providers Discharge Plan Discharge Items Patient Disposition: Home - Home Health Services Reason For Visit: ILLNESS Discharge Diagnosis: Alcoholic cirrhosis, abdominal discomfort-no significant colitis found, generalized weakness, diarrhea secondary to overuse of lactulose Condition on Discharge: Fair Activity: Resume your previous activity Non-emergency contact: Primary Care Provider Call non-emergency contact if: you have any medication questions and your symptoms worsen Follow-up/Referrals: Najma Garcia MD [Primary Care Provider] - (Your PCPs office will call you with an appointment within 7 days) Diet: Regular and Low Sodium (2gm) Fluids: 1500ml (6 cups) Addtl Attending Provider Instructions: Please take precaution to avoid falls Take your lactulose as needed to have 2 or 3 bowel movements daily as advised Pending Studies at Discharge: No Stand-Alone Forms: [employer], Smoking Cessation Medications and DC Order Prescriptions: New lactulose 20 gram packet 20 g PO TID Qty: 30 RF: 0 Continued albuterol sulfate [Ventolin HFA] 90 mcg/actuation Hfa Aerosol Inhaler 2 puff INHALATION Q4 PRN (Reason: Shortness Of Breath) RF: 0 sildenafil (pulm.hypertension) [Revatio] 20 mg tablet 40 mg PO WK PRN (Reason: Sexual Activity) RF: 0 furosemide [Lasix] 40 mg Tablet 40 mg PO BID RF: 0 cyanocobalamin (vitamin B-12) [Vitamin B-12] 100 mcg Tablet 100 mcg PO DAILY RF: 0 valacyclovir [Valtrex] 1 gram Tablet 1,000 mg PO HS RF: 0 spironolactone 100 mg Tablet 100 mg PO BID RF: 0 thiamine HCl (vitamin B1) [Vitamin B-1] 100 mg Tablet 100 mg PO QAM RF: 0 omeprazole 40 mg Capsule,Delayed Release(Dr/Ec) 40 mg PO QAM RF: 0 folic acid 1 mg Tablet 1 mg PO QAM RF: 0 Xifaxan 550 mg Tablet 550 mg PO BID RF: 0 sucralfate 1 gram tablet 1 g PO BID RF: 0 gabapentin 100 mg capsule 100 mg PO TID RF: 0 diclofenac sodium 1 % gel 2 g TOPICAL BID PRN (Reason: Pain) RF: 0 duloxetine 60 mg capsule,delayed release(DR/EC) 60 mg PO BID RF: 0 potassium chloride 20 mEq Tablet Extended Release 20 meq PO DAILY RF: 0 Discharge Orders: Discharge Order (Routine); Ordered 11/11/19 Ordered By: Marissa Bower Admission Data Admit Date/Time: 10/06/20 01:51 Attending Provider: Marissa Bower Admit Provider: Maynor Snyder Primary Care Provider: Najma Garcia Other Providers: Laron [facility] ; Maynor Snyder Other Interventions: Discharge Summary Assessment (RN) Last Done: 11/11/19 17:43
== END 2019-11-11 18:57 | disposition home health service (06) | DRG 433 ==
LOC: ED 21:15 → 1E 11-11 01:51

== ENCOUNTER 2020-01-28 14:44 | Inpatient (IN) ==
--- NOTE | 2020-01-28 15:55 | Emergency Department Note ---
Impression & Plan Lethargic, Medication reaction ED Provider Note Provider: Fredo Edwards MD DATE OF SERVICE:01/28/2020 CHIEF COMPLAINT: Lethargy HISTORY OF PRESENT ILLNESS: Patient is a 59-year-old gentleman history of GERD, lumbar fusion and chronic back pain, alcoholic cirrhosis, esophageal varices, pancytopenia and setting of EMS today from his home. EMS reports patient was found by family member with 4 Butrans patches on (prescription for only 1 at a time) and seemed groggy/sleepy. EMS reports this was possibly these multiple patches over the past 3 days but unsure the validity of that information. Some possible report of a recent lip surgery/repair. Patient evidently recently tested Covid negative they said but did have contact with family MRSA Covid positive. Patient self denies trauma. He states he lives alone. States he did eat earlier but unable provide a good history of this. States he has some diffuse pain in his back and stomach. Denies significant chest pain or shortness of breath. Denies alcohol use. Unable to explain how he might of had multiple pain patches on before but states he has chronic pain issues. During all this he is somewhat slow to answer and seems a bit groggy requiring multiple prompts. REVIEW OF SYSTEMS: A total of 10 review of systems was obtained and negative except as stated above in the HPI obtained after some slow extensive questioning. PAST MEDICAL HISTORY: As noted above MEDICATIONS: Reviewed home education listings SOCIAL HISTORY: , former smoker, prior history of alcoholism. PHYSICAL EXAM: GENERAL: alert to verbal stimuli but appears somewhat fatigued and is a bit slow to answer. Initially resting with eyes closed upon my entering the room Head: normocephalic and atraumatic EYES: No significant discharge. Eyes are PERRL. NECK: Trachea midline. Supple. ENT: Mucous membranes pink and moist. LUNGS: Airway patent. No retractions. Breath sounds clear HEART: Regular rate and rhythm. No chest wall tenderness ABDOMEN: Soft with some slight diffuse tenderness but not peritoneal without guarding or rebound. No masses appreciated. Not tense. SKIN: Acyanotic, warm, dry with some scattered bruising in the upper extremities. EXTREMITIES: Without swelling, tenderness or deformity NEUROLOGICAL: No focal deficits. No aphasia. No facial droop but occasionally a little bit of slurred speech. Follows commands but slowly to do this. Not the best historian is somewhat slow to answer appears somewhat groggy. EK bpm normal sinus rhythm. No PVC or PAC. No acute ST segment elevation or depression. QTC 467. CONTINUOUS CARDIAC MONITORING: was ordered and showed a heart rate of 86 bpm in normal sinus rhythm PDMP was checked Patient's laboratory studies and imaging reviewed. Differential includes Infection, dehydration, metabolic abnormality, hypo/hyperglycemia, electrolyte disturbance, anemia, hypoxia, cardiac sources, intracerebral event, toxicologic, neurologic, as well as other pathologies. IMPRESSION/MEDICAL DECISION MAKING: Patient presents after being found confused and altered by family members with multiple pain patches on. This is likely contributing. Does have a history of liver disease and cirrhosis and questionable possible hepatic encephalopathy. Recent Covid exposure and will retest. Complains of some abdominal pain. Not peritoneal or guarding and lower suspicion for SBP but a CT scan of the abdomen pelvis to be completed given his history was basic laboratory studies. CT head was completed given his fatigue/grogginess although his exam is nonfocal and I have a lower suspicion for acute intracranial hemorrhage or mass at this time. There is no trauma history related no significant findings of trauma though he has some scattered bruising on extremities and body believe is likely related to his history of pancytopenia. Medical alcohol, Tylenol/aspirin, UDS, and VBG were sent as well for completeness to exclude other toxic/metabolic causes for symptoms. Patient's lip without significant swelling or obvious signs of infection or injury. Unsure what possible surgery he may have had here recently that EMS reported. Chest x-ray without acute pathology noted per radiology my review of the film. Covid test as well as influenza is negative today. Leukopenia slightly worse than previous but no significant anemia. Thrombocytopenia appears stable. VBG without significant hypercarbia pH of 7.34. Ammonia is only elevated at 38 not explaining his symptoms today. This is not indicative of hepatic encephalopathy. No significant electrolyte abnormality noted or signs of renal dysfunction. AST slightly elevated at 69 and bilirubin of 3.4. These are not that far off previous values. Troponin is undetectable. Procalcitonin is extremely low and TSH is within normal limits and I doubt an acute thyroid dysfunction issue or systemic infection. Alcohol is undetectable. Acetaminophen and salicylate levels compromise secondary to the bilirubin elevation to perform the testing here but does not sound like this was an aspirin or Tylenol overdose do not feel that we need to empirically give Acetadote or alkalize. CT the head was completed and per radiology without acute intracranial abnormality bleed or fracture appreciated. CT abdomen pelvis showed no acute intra-abdominal or pelvic pathologies but does question possible loosening of L3-L4 pedicle screws from prior hardware/surgery. Not having acute neurological deficit on reassessment the patient's resting comfortably in bed. Still quite groggy. Appears that time the majority of his symptoms are likely related to the effects of wearing multiple Butrans patches earlier and this medication does have somewhat of a long half-life. Given that he still appears groggy after multiple hours here in the emergency department or observational I do not feel he needs Narcan at this time I do not feel that discharge home would be appropriate as he lives by himself. Patient was in agreement with this plan. The hospitalist contacted. DIAGNOSIS: Lethargy, medication reaction DISPOSITION: Hospitalist will evaluate Past Med/Surg History Medical History (Updated 01/28/20 @ 19:31 by Fredo Edwards M.D.) Anxiety Chronic back pain Depression Encephalopathy, hepatic Fusion of spine February 2019 Genital herpes GERD (gastroesophageal reflux disease) Hearing deficit right ear perf eardrum History of alcohol abuse History of anemia History of cirrhosis of liver D/T ALCOHOL History of colon polyps History of hepatitis C Hx of ascites Hx of encephalopathy HEAPTIC Hx of esophageal varices Hx of gynecomastia Hx of thrombocytopenia Hypertension Osteoarthritis Portal hypertensive gastropathy Portal vein thrombosis Urinary tract infection history of Surgical History (Updated 12/04/19 @ 10:58 by Coy Castellon PA-C) History of lumbar fusion History of tooth extraction all teeth removed History of total right hip arthroplasty 2018 Hx of decompression of ulnar nerve RIGHT Family History Father Diabetes Other No family history of adverse response to anesthesia Social History Smoking Status: Never smoker Cigarettes Per Day: 1ppd x 2 years; Second Hand Exposure: Yes; Hx Alcohol Use: No Hx Substance Use: No Preferred Language: Filipino Communication Ability: Effective Allied Health Instructor Required: No Beliefs That Will Affect Care: None marital status: Single Current Living Situation: Alone Current Living Situation Comment: Lives with friend How many Children do You have: 0 Feels Safe at Home: Yes Assistive Devices: Cane and Glasses Allergies Allergies Allergy/AdvReac Type Severity Reaction Status Date / Time No Known Allergies Allergy Verified 12/21/19 01:53 Home Meds Home Medications Medication Instructions Recorded Confirmed Xifaxan 550 mg PO BID 11/04/17 12/21/19 cyanocobalamin (vitamin B-12) 100 mcg PO DAILY 11/04/17 12/21/19 [Vitamin B-12] folic acid 1 mg PO QAM 11/04/17 12/21/19 furosemide [Lasix] 40 mg PO BID 11/04/17 12/21/19 omeprazole 40 mg PO QAM 11/04/17 12/21/19 spironolactone 100 mg PO BID 11/04/17 12/21/19 thiamine HCl (vitamin B1) [Vitamin 100 mg PO QAM 11/04/17 12/21/19 B-1] valacyclovir [Valtrex] 1,000 mg PO HS 11/04/17 12/21/19 albuterol sulfate [Ventolin HFA] 2 puff INHALATION Q4 PRN 04/30/18 12/21/19 sildenafil (pulm.hypertension) 40 mg PO WK PRN 08/06/19 12/21/19 [Revatio] diclofenac sodium 2 g TOPICAL BID PRN 11/10/19 12/21/19 sucralfate 1 g PO DAILY 11/10/19 12/21/19 potassium chloride 20 meq PO DAILY 11/11/19 12/21/19 duloxetine 30 mg PO DAILY 12/21/19 12/21/19 lactulose [Kristalose] 20 g PO TID 12/21/19 12/21/19 Results & Data (ED) Vital Signs Vital Signs - 24 hr 01/28/20 14:53 01/28/20 16:11 01/28/20 16:13 Temperature 37.2 C Temperature Source Oral Pulse Rate 97 H Pulse Rate [Apical] 89 89 Pulse Rhythm [Apical] Regular Pulse Strength [Apical] Normal Respiratory Rate 16 20 Respiratory Effort / Characteristics Non-Labored Spontaneous Non-Labored Spontaneous Respiratory Depth Normal Normal Respiratory Pattern Regular Blood Pressure 148/81 H Blood Pressure [Right Arm] 148/81 H 124/66 Blood Pressure Mean 103 Blood Pressure Mean [Right Arm] 103 85 Blood Pressure Position [Right Arm] Pulse Oximetry 97 96 97 Oxygen Delivery Method Room Air Room Air Room Air Sepsis Recent Fever Within 48 Hours No Sepsis New/Unexplained Change in Mental Status Yes Sepsis Action Taken by Nursing No Action Required 01/28/20 18:00 Temperature Temperature Source Pulse Rate Pulse Rate [Apical] 90 Pulse Rhythm [Apical] Regular Pulse Strength [Apical] Normal Respiratory Rate 18 Respiratory Effort / Characteristics Non-Labored Spontaneous Respiratory Depth Normal Respiratory Pattern Regular Blood Pressure Blood Pressure [Right Arm] 126/83 Blood Pressure Mean Blood Pressure Mean [Right Arm] 97 Blood Pressure Position [Right Arm] Lying Pulse Oximetry 97 Oxygen Delivery Method Room Air Sepsis Recent Fever Within 48 Hours Sepsis New/Unexplained Change in Mental Status Sepsis Action Taken by Nursing Laboratory Data Result diagrams: 01/28/20 17:27 01/28/20 17:27 Lab Results 01/28/20 01/28/20 01/28/20 Range/Units 16:45 16:45 16:45 WBC (4.8-10.8) K/uL RBC (4.7-6.1) M/uL Hgb (14.0-18.0) g/dL Hct (42-52) % MCV (80-100) fL MCH (25-34) pg MCHC (32-36) g/dL RDW Std Deviation (36.4-46.3) fL RDW Coeff of Abhijit (11.5-14.5) % Plt Count (130-400) K/uL MPV (7.4-10.4) fL Immature Gran % (Auto) % Neut % (Auto) % Lymph % (Auto) % [place] % (Auto) % Eos % (Auto) % Baso % (Auto) % Neut # (Auto) (1.4-6.5) K/uL Lymph # (Auto) (1.2-3.4) K/uL [place] # (Auto) (0.11-0.59) K/uL Eos # (Auto) (0-0.5) K/uL Baso # (Auto) (0-0.2) K/uL Immature Gran # (Auto) (0.00-0.02) K/uL Platelet Estimate (Normal) VBG pH (7.36-7.41) VBG pCO2 (38-50) mmHg VBG pO2 mmHg VBG HCO3 mmol/L VBG O2 Saturation % VBG Base Excess mEq/L Barometric Pressure mm/Hg Sodium (136-145) mmol/L Potassium (3.5-5.1) mmol/L Chloride (98-107) mmol/L Carbon Dioxide (21-32) mmol/L Anion Gap (3-11) BUN (7-18) mg/dl Creatinine (0.6-1.4) mg/dl Est Cr Clr Drug Dosing ml/min Est GFR ( Amer) Est GFR (Non-Af Amer) BUN/Creatinine Ratio (10-20) Glucose (70-99) mg/dl Calcium (8.5-10.1) mg/dl Magnesium (1.8-2.4) mg/dl Total Bilirubin (0.2-1) mg/dl AST (15-37) U/L ALT (12-78) U/L Alkaline Phosphatase (45-117) U/L Ammonia (11-32) umol/L Troponin I (0-0.045) ng/ml Total Protein (6.4-8.2) gm/dl Albumin (3.4-5.0) gm/dl Globulin (2.5-4.0) gm/dl Albumin/Globulin Ratio (0.9-2) Lipase (73-393) U/L Procalcitonin (0-0.5) ng/ml TSH (0.300-4.500) uIu/ml Specimen Hemolysis Salicylates (2.8-20) mg/dl Acetaminophen (10-30) ug/ml Ethyl Alcohol mg/dL (0-3) mg/dl COVID-19 Eval [facility] Influ A Molecular Assay Negative (Negative) Influ B Molecular Assay Negative (Negative) SARS-CoV-2, RNA, NAAT NEGATIVE (NEGATIVE) 01/28/20 01/28/20 01/28/20 Range/Units 17:27 17:27 17:27 WBC 4.72 L (4.8-10.8) K/uL RBC 4.32 L (4.7-6.1) M/uL Hgb 14.8 (14.0-18.0) g/dL Hct 43.4 (42-52) % MCV 100.5 H (80-100) fL MCH 34.3 H (25-34) pg MCHC 34.1 (32-36) g/dL RDW Std Deviation 48.5 H (36.4-46.3) fL RDW Coeff of Abhijit 13.2 (11.5-14.5) % Plt Count 64 L (130-400) K/uL MPV 10.8 H (7.4-10.4) fL Immature Gran % (Auto) 0.0 % Neut % (Auto) 54.7 % Lymph % (Auto) 24.6 % [place] % (Auto) 16.7 % Eos % (Auto) 3.4 % Baso % (Auto) 0.6 % Neut # (Auto) 2.58 (1.4-6.5) K/uL Lymph # (Auto) 1.16 L (1.2-3.4) K/uL [place] # (Auto) 0.79 H (0.11-0.59) K/uL Eos # (Auto) 0.16 (0-0.5) K/uL Baso # (Auto) 0.03 (0-0.2) K/uL Immature Gran # (Auto) 0.00 (0.00-0.02) K/uL Platelet Estimate Decreased L (Normal) VBG pH (7.36-7.41) VBG pCO2 (38-50) mmHg VBG pO2 mmHg VBG HCO3 mmol/L VBG O2 Saturation % VBG Base Excess mEq/L Barometric Pressure mm/Hg Sodium 141 (136-145) mmol/L Potassium 4.2 (3.5-5.1) mmol/L Chloride 109 H (98-107) mmol/L Carbon Dioxide 27 (21-32) mmol/L Anion Gap 5.0 (3-11) BUN 13 (7-18) mg/dl Creatinine 0.83 (0.6-1.4) mg/dl Est Cr Clr Drug Dosing 102.1 ml/min Est GFR ( Amer) 111.6 Est GFR (Non-Af Amer) 96.3 BUN/Creatinine Ratio 16.0 (10-20) Glucose 73 (70-99) mg/dl Calcium 9.4 (8.5-10.1) mg/dl Magnesium 2.2 (1.8-2.4) mg/dl Total Bilirubin 3.4 H (0.2-1) mg/dl AST 69 H (15-37) U/L ALT 35 (12-78) U/L Alkaline Phosphatase 109 (45-117) U/L Ammonia 38.0 H (11-32) umol/L Troponin I < 0.015 (0-0.045) ng/ml Total Protein 7.1 (6.4-8.2) gm/dl Albumin 3.3 L (3.4-5.0) gm/dl Globulin 3.8 (2.5-4.0) gm/dl Albumin/Globulin Ratio 0.9 (0.9-2) Lipase 99 (73-393) U/L Procalcitonin (0-0.5) ng/ml TSH 0.729 (0.300-4.500) uIu/ml Specimen Hemolysis Salicylates (2.8-20) mg/dl Acetaminophen (10-30) ug/ml Ethyl Alcohol mg/dL (0-3) mg/dl COVID-19 Eval Order Influ A Molecular Assay (Negative) Influ B Molecular Assay (Negative) SARS-CoV-2, RNA, NAAT (NEGATIVE) 01/28/20 01/28/20 01/28/20 Range/Units 17:27 17:27 17:27 WBC (4.8-10.8) K/uL RBC (4.7-6.1) M/uL Hgb (14.0-18.0) g/dL Hct (42-52) % MCV (80-100) fL MCH (25-34) pg MCHC (32-36) g/dL RDW Std Deviation (36.4-46.3) fL RDW Coeff of Abhijit (11.5-14.5) % Plt Count (130-400) K/uL MPV (7.4-10.4) fL Immature Gran % (Auto) % Neut % (Auto) % Lymph % (Auto) % [place] % (Auto) % Eos % (Auto) % Baso % (Auto) % Neut # (Auto) (1.4-6.5) K/uL Lymph # (Auto) (1.2-3.4) K/uL [place] # (Auto) (0.11-0.59) K/uL Eos # (Auto) (0-0.5) K/uL Baso # (Auto) (0-0.2) K/uL Immature Gran # (Auto) (0.00-0.02) K/uL Platelet Estimate (Normal) VBG pH 7.34 L (7.36-7.41) VBG pCO2 50 (38-50) mmHg VBG pO2 26 mmHg VBG HCO3 27 mmol/L VBG O2 Saturation < 60.0 % VBG Base Excess 0.1 mEq/L Barometric Pressure 738.6 mm/Hg Sodium (136-145) mmol/L Potassium (3.5-5.1) mmol/L Chloride (98-107) mmol/L Carbon Dioxide (21-32) mmol/L Anion Gap (3-11) BUN (7-18) mg/dl Creatinine (0.6-1.4) mg/dl Est Cr Clr Drug Dosing ml/min Est GFR ( Amer) Est GFR (Non-Af Amer) BUN/Creatinine Ratio (10-20) Glucose (70-99) mg/dl Calcium (8.5-10.1) mg/dl Magnesium (1.8-2.4) mg/dl Total Bilirubin (0.2-1) mg/dl AST (15-37) U/L ALT (12-78) U/L Alkaline Phosphatase (45-117) U/L Ammonia (11-32) umol/L Troponin I (0-0.045) ng/ml Total Protein (6.4-8.2) gm/dl Albumin (3.4-5.0) gm/dl Globulin (2.5-4.0) gm/dl Albumin/Globulin Ratio (0.9-2) Lipase (73-393) U/L Procalcitonin 0.09 (0-0.5) ng/ml TSH (0.300-4.500) uIu/ml Specimen Hemolysis Salicylates (2.8-20) mg/dl Acetaminophen (10-30) ug/ml Ethyl Alcohol mg/dL (0-3) mg/dl COVID-19 Eval Order Influ A Molecular Assay (Negative) Influ B Molecular Assay (Negative) SARS-CoV-2, RNA, NAAT (NEGATIVE) 01/28/20 Range/Units 17:27 WBC (4.8-10.8) K/uL RBC (4.7-6.1) M/uL Hgb (14.0-18.0) g/dL Hct (42-52) % MCV (80-100) fL MCH (25-34) pg MCHC (32-36) g/dL RDW Std Deviation (36.4-46.3) fL RDW Coeff of Abhijit (11.5-14.5) % Plt Count (130-400) K/uL MPV (7.4-10.4) fL Immature Gran % (Auto) % Neut % (Auto) % Lymph % (Auto) % [place] % (Auto) % Eos % (Auto) % Baso % (Auto) % Neut # (Auto) (1.4-6.5) K/uL Lymph # (Auto) (1.2-3.4) K/uL [place] # (Auto) (0.11-0.59) K/uL Eos # (Auto) (0-0.5) K/uL Baso # (Auto) (0-0.2) K/uL Immature Gran # (Auto) (0.00-0.02) K/uL Platelet Estimate (Normal) VBG pH (7.36-7.41) VBG pCO2 (38-50) mmHg VBG pO2 mmHg VBG HCO3 mmol/L VBG O2 Saturation % VBG Base Excess mEq/L Barometric Pressure mm/Hg Sodium (136-145) mmol/L Potassium (3.5-5.1) mmol/L Chloride (98-107) mmol/L Carbon Dioxide (21-32) mmol/L Anion Gap (3-11) BUN (7-18) mg/dl Creatinine (0.6-1.4) mg/dl Est Cr Clr Drug Dosing ml/min Est GFR ( Amer) Est GFR (Non-Af Amer) BUN/Creatinine Ratio (10-20) Glucose (70-99) mg/dl Calcium (8.5-10.1) mg/dl Magnesium (1.8-2.4) mg/dl Total Bilirubin (0.2-1) mg/dl AST (15-37) U/L ALT (12-78) U/L Alkaline Phosphatase (45-117) U/L Ammonia (11-32) umol/L Troponin I (0-0.045) ng/ml Total Protein (6.4-8.2) gm/dl Albumin (3.4-5.0) gm/dl Globulin (2.5-4.0) gm/dl Albumin/Globulin Ratio (0.9-2) Lipase (73-393) U/L Procalcitonin (0-0.5) ng/ml TSH (0.300-4.500) uIu/ml Specimen Hemolysis Salicylates (2.8-20) mg/dl Acetaminophen (10-30) ug/ml Ethyl Alcohol mg/dL < 3.0 (0-3) mg/dl COVID-19 Eval Order Influ A Molecular Assay (Negative) Influ B Molecular Assay (Negative) SARS-CoV-2, RNA, NAAT (NEGATIVE) Administered Medications Discontinued Medications Ioversol (Ioversol 100ml) 94 ml IV ONCE ONE Stop: 01/28/20 19:00 Last Admin: 01/28/20 19:00 Dose: 94 ml Documented by: [id number] Discharge Plan Visit Data Chief Complaint: Overdose (Intentional) ED Provider: Fredo Edwards Discharge Problem: Lethargic, Medication reaction Patient Disposition: Being Evaluated by Hospitalist Forms Stand Alone Forms: [facility], Suicide Prevention Resources Prescriptions Prescriptions: No Action albuterol sulfate [Ventolin HFA] 90 mcg/actuation Hfa Aerosol Inhaler 2 puff INHALATION Q4 PRN (Reason: Shortness Of Breath) RF: 0 sildenafil (pulm.hypertension) [Revatio] 20 mg tablet 40 mg PO WK PRN (Reason: Sexual Activity) RF: 0 furosemide [Lasix] 40 mg Tablet 40 mg PO BID RF: 0 cyanocobalamin (vitamin B-12) [Vitamin B-12] 100 mcg Tablet 100 mcg PO DAILY RF: 0 valacyclovir [Valtrex] 1 gram Tablet 1,000 mg PO HS RF: 0 spironolactone 100 mg Tablet 100 mg PO BID RF: 0 thiamine HCl (vitamin B1) [Vitamin B-1] 100 mg Tablet 100 mg PO QAM RF: 0 omeprazole 40 mg Capsule,Delayed Release(Dr/Ec) 40 mg PO QAM RF: 0 folic acid 1 mg Tablet 1 mg PO QAM RF: 0 Xifaxan 550 mg Tablet 550 mg PO BID RF: 0 sucralfate 1 gram tablet 1 g PO DAILY RF: 0 diclofenac sodium 1 % gel 2 g TOPICAL BID PRN (Reason: Pain) RF: 0 potassium chloride 20 mEq Tablet Extended Release 20 meq PO DAILY RF: 0 Kristalose 20 gram packet 20 g PO TID RF: 0 duloxetine 30 mg capsule,delayed release(DR/EC) 30 mg PO DAILY RF: 0 Referrals Referrals: Najma Garcia MD [Primary Care Provider] - Discharge Problem: Medication reaction Qualifiers: Encounter type: initial encounter Qualified Code(s): T50.905A - Adverse effect of unspecified drugs, medicaments and biological substances, initial encounter
--- NOTE | 2020-01-28 16:32 | XRay Report ---
XR chest 1V portable HISTORY: 59 years-old Male confusion/lethargy acutely altered mental status with lethargy. Acute carolann g overdose. COMPARISON: Chest radiograph 12/21/2019 TECHNIQUE: Portable AP view of the chest FINDINGS: Cardiomediastinal and hilar silhouettes are unchanged. There is no pneumothorax, pleural effusion, ai rspace consolidation or overt pulmonary edema. Bones of the chest appear grossly intact. Mild chronic interstitial coarsening. IMPRESSION: No acute process. ACT 112: Negative or not required by law. The above report was generated using voice recognition software. It may contain grammatical, syntax o r spelling errors. Electronically signed by: Eliceo Herrera M.D. 01/28/2020 4:31 PM
[2020-01-28 17:30] LABS: Influenza A virus by PCR Negative (Negative); Influenza B virus by PCR Negative (Negative)
[2020-01-28 17:40] LABS: Hematocrit (blood only) 43.4 % (42-52); Hemoglobin 14.8 g/dL (14.0-18.0); Mean Corpuscular Hemoglobin 34.3 pg (25-34); Mean Corpuscular Hgb Conc 34.1 g/dL (32-36); Mean Corpuscular Volume 100.5 fL (80-100); RDW Coefficient of Variation 13.2 % (11.5-14.5); RDW Standard Deviation 48.5 fL (36.4-46.3); Red Blood Count 4.32 M/uL (4.7-6.1); White Blood Count 4.72 K/uL (4.8-10.8)
[2020-01-28 17:46] LABS: Base Excess VBG 0.1 mEq/L; HCO3 VBG 27 mmol/L; Oxygen Saturation VBG < 60.0 %; PCO2 VBG 50 mmHg (38-50); PO2 VBG 26 mmHg; pH VBG 7.34 (7.36-7.41)
[2020-01-28 17:59] LABS: Alanine Aminotransferase 35 U/L (12-78); Albumin Level 3.3 gm/dl (3.4-5.0); Aspartate Aminotransferase 69 U/L (15-37); Blood Urea Nitrogen 13 mg/dl (7-18); Calcium 9.4 mg/dl (8.5-10.1); Carbon Dioxide 27 mmol/L (21-32); Chloride 109 mmol/L (98-107); Creatinine Clr Calc Pharmacy 102.1 ml/min; Est GFR (African American) 111.6; Est GFR (Non-African American) 96.3; Glucose 73 mg/dl (70-99); Lipase 99 U/L (73-393); Magnesium 2.2 mg/dl (1.8-2.4); Potassium 4.2 mmol/L (3.5-5.1); Sodium 141 mmol/L (136-145)
[2020-01-28 18:06] LABS: Basophils # (auto) 0.03 K/uL (0-0.2); Basophils % (auto) 0.6 %; Eosinophils # (auto) 0.16 K/uL (0-0.5); Eosinophils % (auto) 3.4 %; Lymphocytes # (auto) 1.16 K/uL (1.2-3.4); Lymphocytes % (auto) 24.6 %; Mean Platelet Volume 10.8 fL (7.4-10.4); Monocytes # (auto) 0.79 K/uL (0.11-0.59); Monocytes % (auto) 16.7 %; Neutrophils # (auto) 2.58 K/uL (1.4-6.5); Neutrophils % (auto) 54.7 %; Platelet Count 64 K/uL (130-400); Platelet Estimate Decreased (Normal)
[2020-01-28 18:09] LABS: Albumin Globulin Ratio 0.9 (0.9-2); Alkaline Phosphatase 109 U/L (45-117); Bilirubin,Total 3.4 mg/dl (0.2-1); Globulin 3.8 gm/dl (2.5-4.0); Thyroid Stimulating Hormone 0.729 uIu/ml (0.300-4.500); Total Protein 7.1 gm/dl (6.4-8.2); Troponin I < 0.015 ng/ml (0-0.045)
[2020-01-28] MEDS ORDERED: IOVERSOL 100ml IV ONE (18:59)
--- NOTE | 2020-01-28 19:13 | CT Scan Report ---
CT head/brain wo con CLINICAL HISTORY: 59 years-old Male with weakness. Acute weakness TECHNIQUE: Multiple axial CT images of the head were obtained without contrast. A dose lowering tech nique was utilized adhering to the principles of ALARA. CT DOSE: 537.48 mGy.cm COMPARISON: Head CT 08/06/2019 FINDINGS: No acute intracranial hemorrhage, midline shift, intracranial mass, hydrocephalus, territorial ischem ia or abnormal extra-axial collection. The calvarium is intact. The paranasal sinuses, mastoid air cells, and middle ear cavities are clear . IMPRESSION: No acute intracranial abnormality. ACT 112: Negative or not required by law. The above report was generated using voice recognition software. It may contain grammatical, syntax o r spelling errors. Electronically signed by: Eliceo Herrera M.D. 01/28/2020 7:12 PM
--- NOTE | 2020-01-28 19:23 | CT Scan Report ---
ABDOMEN AND PELVIS CT WITH IV CONTRAST CT DOSE: 533.06 mGy.cm HISTORY: Acute upper abdominal pain with confusion upper abdominal pain, confusion TECHNIQUE: Multiaxial CT images of the abdomen and pelvis were performed following the IV administrat ion of 94 cc of Optiray 320, A dose lowering technique was utilized adhering to the principles of AL JACK. COMPARISON STUDY: CT abdomen and pelvis 11/10/2019 FINDINGS: Pericardial calcifications. The imaged inferior cardiac chambers are otherwise unremarkable . Bibasilar groundglass densities suggest probable atelectasis. No pneumatosis or pneumoperitoneum. T he spleen is enlarged measuring up to 14.5 cm. Unremarkable pancreas and adrenal glands. Mildly diste nded gallbladder with equivocal gallbladder wall thickening. No cholelithiasis or biliary ductal dila tion. Cirrhotic morphology of the liver. No hepatic mass lesion identified. Numerous varices of the u pper abdomen included periesophageal varices. No hydronephrosis. Kidneys appear unremarkable. Delayed phase imaging with contrast noted within the dependent urinary bladder. Unremarkable prostate. No aortic aneurysm or adenopathy. There is no bowel obstruction or bowel wall thickening. Colonic diverticulosis. Mild fecal retention. There is no ascites or mesenteric inflammation. Noninflamed appendix. Unremarkable soft tissues. No acute fracture. Prior laminectomy with posterior interbody mohan and screw fusion at L3-L4. There is derek cency surrounding the bilateral L3 and left L4 pedicle screws. The right L3 pedicle screw partially e xtends through the superior endplate. Mild levoscoliosis. Remote bilateral L5 and L4 pars defects. IMPRESSION: 1. No bowel obstruction or bowel wall thickening. Normal appendix. 2. Cirrhotic morphology of the liver with stigmata of portal venous hypertension including splenomega ly with abdominal varices. 3. Prior laminectomy with posterior interbody mohan and screw fusion at L3-L4. Lucency surrounding the bilateral L3 and left L4 pedicle screws suggests hardware loosening. 4. Additional findings as above. ACT 112: Negative or not required by law. The above report was generated using voice recognition software. It may contain grammatical, syntax o r spelling errors. Electronically signed by: Eliceo Herrera M.D. 01/28/2020 7:22 PM
[2020-01-28 20:50] LABS: Amphetamines+Metham, Urine Neg (Neg); Barbiturates, Urine Neg (Neg); Benzodiazepine, Urine Neg (Neg); Cocaine, Urine Neg (Neg); MDMA (Ecstacy), Urine Neg (Neg); Methadone, Urine Neg (Neg); Opiate, Urine Neg (Neg); Phencyclidine, Urine Neg (Neg)
[2020-01-28] MEDS ORDERED: ALBUTEROL HFA 8 GM INHALER INH PRN (23:51)
[2020-01-28] MEDS ORDERED: SODIUM CHLORIDE 0.9% 1000ML 1,000 ML IV SCH (23:51)
[2020-01-28] MEDS ORDERED: DICLOFENAC SOD 1% GEL 100 GM TUBE EXT PRN (23:51)
[2020-01-28] MEDS ORDERED: NITROGLYCERIN SL 0.4 MG/TAB TAB SL PRN (23:51)
--- NOTE | 2020-01-29 01:51 | History and Physical Report ---
DATE OF ADMISSION: 01/28/2020 CHIEF COMPLAINT: Drug overdose. HISTORY OF PRESENT ILLNESS: This is a 59-year-old male with past medical history significant for alcoholic liver cirrhosis, history of alcoholism, in remission, history of portal hypertensive gastropathy, GERD without esophagitis, hypertension, portal vein thrombosis, esophageal varices, peripheral neuropathy, history of thrombocytopenia, history of pancytopenia, history of cocaine use disorder, in remission, cannabis use disorder, in remission, gynecomastia, ambulatory dysfunction, anxiety, depression, who lives alone, was brought into the hospital because family members found that he had 4 buprenorphine patches on him. As per the family he needs to be on one at a time for a week, and seems groggy and sleepy. There is a question that he might be having these patches for the last few days. The patient is currently awake but somewhat groggy in the ER, afebrile currently, somewhat restless, but alert to name. When questioned, he states that he is in the hospital and denies any back pain or belly pain or chest pain. No nausea, no cough, no fever. Appetite is okay. Denies any other complaints. Could not get a complete review of systems on the patient. He was somewhat slow to answer and also somewhat groggy. ALLERGIES: No known drug allergies. PAST MEDICAL HISTORY: As mentioned above. PAST SURGICAL HISTORY: Abdominal paracentesis, arthrocentesis, colonoscopy, dental surgery, EGDs, surgery on right elbow, back surgery, injection of the sacroiliac joint, right total hip replacement. MEDICATIONS: The patient is on folic acid 1 mg p.o. daily, lactulose 20 grams p.o. t.i.d., buprenorphine 5 mcg per hour transdermal patch weekly, rifaximin 550 mg p.o. b.i.d., prednisone tapering dose, duloxetine 30 mg p.o. daily, Zofran 4 mg p.o. p.r.n., Lasix 40 mg p.o. b.i.d., albuterol 2 puffs every 4 hours p.r.n., diclofenac sodium 2 grams topical b.i.d. p.r.n., Flonase 2 sprays each nostril daily, omeprazole 40 mg p.o. daily, potassium chloride 20 mEq p.o. daily, Revatio 2 tablets once a week p.r.n., spironolactone 100 mg p.o. daily, Valtrex 1 gram p.o. daily, vitamin B 100 mcg p.o. daily, vitamin B12 100 mcg p.o. daily. FAMILY HISTORY: Significant for sister has alcoholism and mental disorder; mother had lymphoma; father had diabetes; daughter has cirrhosis. SOCIAL HISTORY: , lives alone. Former smoker, quit in 1979, smoked half pack a day for 15 years. Snuffs tobacco 1 can for every 3 days. Last drink of his alcohol was in June 2013. No drug use currently. Stopped crank and marijuana prior to 1979. REVIEW OF SYSTEMS: As per HPI. Rest of review of the systems, could not get as the patient is somewhat groggy. PHYSICAL EXAMINATION: GENERAL: The patient is alert and awake, oriented to name, questionable to place. VITAL SIGNS: Temperature 37.2, pulse 90, respiratory rate 20, blood pressure 173/98, oxygen 96% on room air. HEENT: Pupils are equal, round, reactive to light. Oral mucosa dry. NECK: No neck masses seen. CARDIOVASCULAR: S1, S2 heard. Regular rate and rhythm. No murmur, no gallop. RESPIRATORY SYSTEM: Normal AP diameter. No accessory muscle use. No wheezing, no crackles. ABDOMEN: Soft, bowel sounds present, nontender. No distention. CENTRAL NERVOUS SYSTEM: Alert and awake and oriented to name. Obeys simple commands. Moves extremities. EXTREMITIES: Mild bilateral lower extremity pedal edema present, no erythema seen. LABORATORY DATA: WBC 4.7, hemoglobin 14.8, hematocrit 43.4, platelets 64. Venous blood gas, pH of 7.34, pCO2 of 50, pO2 of 26, and bicarbonate of 27. Sodium 141, potassium 4.2, chloride 109, bicarbonate 27, BUN 13, creatinine 0.8, serum glucose 73, calcium 9.4, magnesium 2.2, total bilirubin 3.4, AST 16, ALT 35, alkaline phosphatase 109, ammonia 38. Troponin I less than 0.015. Lipase 99. Procalcitonin 0.09. TSH 0.7. Urine drug screen negative. Alcohol level less than 3. COVID-19 SARS-CoV-2 RNA negative. IMAGING DATA: Chest x-ray, no acute process. CT of the head, no acute intracranial abnormality seen. CT of the abdomen and pelvis, no bowel obstruction or bowel wall thickening, normal appendix. Chronic cirrhotic morphology of the liver with stigmata of portal venous hypertension including splenomegaly with abdominal varices. Prior laminectomy with posterior interbody mohan and screw fixation into L3-L4, lucency surrounding the bilateral L3 and L4 pedestal screw suggestive of hardware loosening. EKG: Normal sinus rhythm, rate of 88, no significant change was found. ASSESSMENT AND PLAN: This is a 59-year-old male presents with prescription drug overdose. 1. Prescription drug overdose. The patient is on buprenorphine 5 mcg once a week, but he has 4 patches on his body and is somewhat groggy. Rest of the drug screen is negative. He is hemodynamically stable. We will monitor in the tele floor. Follow the labs in the a.m., gentle fluids. If he gets any hypoxia or any respiratory distress, we will give him naloxone. Closely monitor in the tele floor. 2. Leukopenia and thrombocytopenia secondary to alcoholic liver cirrhosis. Follow the labs. 3. Alcoholic liver cirrhosis, quit alcohol in 2013. Holding his diuretics. . Continue Xifaxan and lactulose. His ammonia is 38, not in hepatic encephalopathy. Will follow the repeat ammonia level in the a.m. His bilirubin is 3.4, chronically it is around 2.3 to 3 from his cirrhosis. We will follow the repeat labs in a.m. Monitor for any volume overload as diuretics are held. 4. Chronic pain from back surgery. The CAT scan is showing his back surgery screws are loosening. We will consult orthopedics when the patient is stable, and PT/OT, . 5. Depression and anxiety. Currently holding all his p.o. medications. 6. Deep vein thrombosis prophylaxis, sequential compression devices for now. 7. Disposition: Closely monitor in the tele floor. Level 1 full code. MTDD
[2020-01-29 05:35] LABS: Hemoglobin 15.2 g/dL (14.0-18.0); Mean Corpuscular Hemoglobin 34.8 pg (25-34); Mean Corpuscular Hgb Conc 34.5 g/dL (32-36); Mean Corpuscular Volume 100.7 fL (80-100); RDW Coefficient of Variation 13.3 % (11.5-14.5); RDW Standard Deviation 48.8 fL (36.4-46.3); Red Blood Count 4.37 M/uL (4.7-6.1); White Blood Count 4.99 K/uL (4.8-10.8)
[2020-01-29 05:40] LABS: Mean Platelet Volume 10.7 fL (7.4-10.4); Platelet Count 74 K/uL (130-400)
[2020-01-29 05:51] LABS: BUN Creatinine Ratio 15.9 (10-20); Creatinine Clr Calc Pharmacy 103.3 ml/min; Est GFR (African American) 112.2; Est GFR (Non-African American) 96.8; Magnesium 1.9 mg/dl (1.8-2.4); Potassium 3.7 mmol/L (3.5-5.1)
[2020-01-29 06:42] LABS: Basophils # (auto) 0.07 K/uL (0-0.2); Basophils % (auto) 1.4 %; Eosinophils # (auto) 0.24 K/uL (0-0.5); Eosinophils % (auto) 4.8 %; Immature Granulocytes # (auto) 0.01 K/uL (0.00-0.02); Immature Granulocytes % (auto) 0.2 %; Lymphocytes # (auto) 1.66 K/uL (1.2-3.4); Lymphocytes % (auto) 33.3 %; Monocytes # (auto) 0.77 K/uL (0.11-0.59); Monocytes % (auto) 15.4 %; Neutrophils # (auto) 2.24 K/uL (1.4-6.5); Neutrophils % (auto) 44.9 %
[2020-01-29] MEDS ORDERED: LACTULOSE SYRUP 30 GM/45 ML UDP PO STA (06:46)
--- NOTE | 2020-01-29 07:53 | Electrocardiogram Report ---
Test Reason : Blood Pressure : / mmHG Vent. Rate : 088 BPM Atrial Rate : 088 BPM P-R Int : 168 ms QRS Dur : 078 ms QT Int : 386 ms P-R-T Axes : 061 026 053 degrees QTc Int : 467 ms Normal sinus rhythm Low voltage QRS Old Septal infarct (cited on or before 21-DEC-2019) Abnormal ECG When compared with ECG of 21-DEC-2019 00:51, No significant change was found Confirmed by Selvin Chandler ([id number]) on 01/29/2020 7:53:12 AM Referred By: REFERRED SELF Confirmed By:Selvin Chandler
[2020-01-29] MEDS: THIAMINE HCL 100 MG TAB PO SCH (08:25)
[2020-01-29] MEDS: LACTULOSE SYRUP 20 GM/30 ML UDC PO SCH ×3 (08:25→20:21)
[2020-01-29] MEDS: PANTOprazole 40 MG TAB PO SCH (08:25)
[2020-01-29] MEDS: SUCRALFATE 1 GM TAB PO SCH (08:25)
[2020-01-29] MEDS: FOLIC ACID 1 MG TAB PO SCH (08:26)
[2020-01-29] MEDS: CYANOCOBALAMIN (VITAMIN B-12) 100 MCG TABLET PO SCH (08:26)
[2020-01-29] MEDS: rifAXIMin 550 MG TABLET PO SCH ×2 (08:26→20:17)
--- NOTE | 2020-01-29 09:35 | Electrocardiogram Report ---
Test Reason : Blood Pressure : / mmHG Vent. Rate : 073 BPM Atrial Rate : 073 BPM P-R Int : 174 ms QRS Dur : 088 ms QT Int : 436 ms P-R-T Axes : 070 049 077 degrees QTc Int : 480 ms Normal sinus rhythm Low voltage QRS Old Septal infarct (cited on or before 21-DEC-2019) Abnormal ECG When compared with ECG of 28-JAN-2020 14:53, No significant change was found Confirmed by Selvin Chandler ([id number]) on 01/29/2020 9:35:24 AM Referred By: REFERRED SELF Confirmed By:Selvin Chandler
--- NOTE | 2020-01-29 12:31 | Hospitalist Progress Note ---
Date of Service January 29, 2020 Assessment & Plan (1) Acute metabolic encephalopathy: Drug Overdose Possible Hepatic Encephalopathy -This is a patient who presented to the ED on 01/28/2020 by EMS with altered mental status ( EMS reports patient was found by family member with 4 Butrans patches on (prescription for only 1 at a time) and seemed groggy/sleepy. EMS reports this was possibly these multiple patches over the past 3 days but unsure the validity of that information) and was admitted by hospitalist Dr. Snyder to medical telemetry gomez -Patient also noted to have history of alcoholic liver cirrhosis and fluctuating elevation in serum ammonia levels -Patient was given IV fluids by admitting physician in regards to buprenorphine overdose but nurse concerns of possible noncompliance with lactulose - patient's serum second ammonia level increased compared to 83 compared to initial serum ammonia of 38 but suspect that patient's ammonia can be fluctuating up and down above normal levels at baseline -when seen in the day time of 01/29/2020, patient demanding to go home but he reports of gaps in his memory and he does not appear to able to make medical decisions for himself as he could not follow with hospitalist medicine about consequences of action or demonstrate he can comprehend the medical medical care. Review of systems is unobtainable despite patient being verbal -will request behavioral health service to follow with medicine hospitalist team in regards to mental status Alcoholic liver cirrhosis Leukopenia and thrombocytopenia secondary to alcoholic liver cirrhosis -management with lactulose or Xifaxan and furosemide depends on patient's medical adherence History of depression and anxiety -will request behavioral health service to follow with medicine hospitalist team in regards to mental status or any psychiatric medications History of Back Surgery -Prior laminectomy with posterior interbody mohan and screw fusion at L3-L4. Lucency surrounding the bilateral L3 and left L4 pedicle screws suggests hardware loosening. -admitting physician Dr. Snyder requesting orthopedic surgery consult but this issue appears to be secondary to patient's confusion Deep vein thrombosis prophylaxis: sequential compression devices for now Admission and Anticipated Discharge Date Admission Date: January 28, 2020 Subjective -when seen in the day time of 01/29/2020, patient demanding to go home but he reports of gaps in his memory and he does not appear to able to make medical decisions for himself as he could not follow with hospitalist medicine about consequences of action or demonstrate he can comprehend the medical medical care . Review of systems is unobtainable despite patient being verbal Review of Systems Review of Systems: Unobtainable due to cognitive status Physical Exam Constitutional: + disheveled Eyes: EOM intact bilaterally ENMT: external ear and nose normal, oropharynx normal Neck: normal visual inspection Respiratory: normal respiratory effort, lungs clear to auscultation Cardiovascular: Rate/Rhythm: regular rate and regular rhythm Gastrointestinal (Abdomen): Inspection/Auscultation: normal bowel sounds Percussion/Palpation: abdomen soft Musculoskeletal: Head/Neck/Chest: normocephalic and head atraumatic Neurologic: PERRL, EOMI, accommodation nl, no face palsy, no dysarthria moves all extremities Psychiatric: Orientation: alert Results & Data Results & Data ([facility]) Vital Signs (Past 12 Hours) Vital Signs Temp Pulse Pulse Resp BP Pulse Ox 01/29/20 08:08 36.5 C 77 18 128/77 93 01/29/20 07:00 73 01/29/20 05:03 36.4 C L 90 18 124/76 96 01/29/20 01:00 70
[2020-01-29] MEDS: valACYclovir HCL 500 MG TABLET PO SCH (20:17)
[2020-01-30] MEDS: SUCRALFATE 1 GM TAB PO SCH (08:05)
[2020-01-30] MEDS: rifAXIMin 550 MG TABLET PO SCH ×2 (08:05→20:24)
[2020-01-30] MEDS: THIAMINE HCL 100 MG TAB PO SCH (08:05)
[2020-01-30] MEDS: CYANOCOBALAMIN (VITAMIN B-12) 100 MCG TABLET PO SCH (08:06)
[2020-01-30] MEDS: PANTOprazole 40 MG TAB PO SCH (08:06)
[2020-01-30] MEDS: FOLIC ACID 1 MG TAB PO SCH (08:06)
[2020-01-30] MEDS: LACTULOSE SYRUP 20 GM/30 ML UDC PO SCH ×3 (08:09→20:25)
--- NOTE | 2020-01-30 09:28 | Hospitalist Progress Note ---
Date of Service January 30, 2020 Assessment & Plan (1) Acute metabolic encephalopathy: Drug Overdose Possible Hepatic Encephalopathy Hyperammonemia -This is a patient who presented to the ED on 01/28/2020 by EMS with altered mental status ( EMS reports patient was found by family member with 4 Butrans (buprenorphine) patches on (prescription for only 1 at a time) and seemed groggy/sleepy. EMS reports this was possibly these multiple patches over the past 3 days but unsure the validity of that information) and was admitted by hospitalist Dr. Snyder to medical telemetry gomez.Patient also noted to have history of alcoholic liver cirrhosis and fluctuating elevation in serum ammonia levels. Patient was given IV fluids by admitting physician in regards to buprenorphine overdose but nurse concerns of possible noncompliance with lactulose - patient's serum second ammonia level increased compared to 83 compared to initial serum ammonia of 38 but suspect that patient's ammonia can be fluctuating up and down above normal levels at baseline. when seen in the day time of 01/29/2020, patient demanding to go home but he reports of gaps in his memory and he does not appear to able to make medical decisions for himself as he could not follow with hospitalist medicine about consequences of action or demonstrate he can comprehend the medical medical care. Review of systems is unobtainable despite patient being verbal -as of 01/30/2020 exam, patient is far more oriented and explains that he understood that he was found to have too many buprenorphine patches when he came to the ED. He cannot explain as to why he had multiples patches on at home but he now says he will no longer use those patches for back pain. By his history today, he reports that besides his use of the patches, he claims his only other medication use at home is lactulose 3 times a day at home. Patient is cooperative today to allow blood draws and for re-assessment of his health while in the hospital by 01/31/2020 Alcoholic liver cirrhosis Leukopenia and thrombocytopenia secondary to alcoholic liver cirrhosis -management with lactulose or Xifaxan and furosemide depends on patient's medical adherence History of depression and anxiety -behavioral health service was asked to follow with medicine hospitalist team if any acute issues regarding mental health History of Back Surgery -Prior laminectomy with posterior interbody mohan and screw fusion at L3-L4. Lucency surrounding the bilateral L3 and left L4 pedicle screws suggests hardware loosening. -request hospital orthopedic back surgeon to assess this issue -patient appears to be walking on his own power -avoid buprenorphine patches Prolonger QTc on EKG -QTC appears to be chronically prolonged based on review of past EKGs in [facility] system Deep vein thrombosis prophylaxis: sequential compression devices for now Admission and Anticipated Discharge Date Admission Date: January 28, 2020 Subjective -as of 01/30/2020 exam, patient is far more oriented and explains that he understood that he was found to have too many buprenorphine patches when he came to the ED. He cannot explain as to why he had multiples patches on at home but he now says he will no longer use those patches for back pain. By his history today, he reports that besides his use of the patches, he claims his only other medication use at home is lactulose 3 times a day at home. Patient is cooperative today to allow blood draws and for re-assessment of his health while in the hospital by 01/31/2020 Review of Systems Review of Systems: All systems reviewed & are unremarkable except as noted in Subjective Physical Exam Constitutional: + disheveled Eyes: EOM intact bilaterally ENMT: external ear and nose normal, oropharynx normal Neck: normal visual inspection Respiratory: normal respiratory effort, lungs clear to auscultation Cardiovascular: Rate/Rhythm: regular rate and regular rhythm Gastrointestinal (Abdomen): Inspection/Auscultation: normal bowel sounds Percussion/Palpation: abdomen soft Musculoskeletal: Head/Neck/Chest: normocephalic and head atraumatic Neurologic: PERRL, EOMI, accommodation nl, no face palsy, no dysarthria moves all extremities Psychiatric: Orientation: alert Results & Data Results & Data ([facility]) Vital Signs (Past 12 Hours) Vital Signs Temp Pulse Resp BP Pulse Ox 01/29/20 23:42 36.7 C 84 17 127/60 95
[2020-01-30 09:48] LABS: Hematocrit (blood only) 39.4 % (42-52); Hemoglobin 13.7 g/dL (14.0-18.0); Mean Corpuscular Hemoglobin 34.5 pg (25-34); Mean Corpuscular Hgb Conc 34.8 g/dL (32-36); Mean Corpuscular Volume 99.2 fL (80-100); RDW Coefficient of Variation 13.1 % (11.5-14.5); Red Blood Count 3.97 M/uL (4.7-6.1); White Blood Count 3.29 K/uL (4.8-10.8)
[2020-01-30 10:10] LABS: ALC (manual) 0.78 K/uL (1.2-3.4); ANC (manual) 1.85 K/uL (1.4-6.5); Basophils # (manual) 0.03 K/uL (0-0.2); Basophils % (manual) 0.9 %; Eosinophils # (manual) 0.14 K/uL (0-0.5); Eosinophils % (manual) 4.4 %; Lymphocytes # (manual) 0.29 K/uL (1.2-3.4); Lymphocytes % (manual) 8.8 %; Mean Platelet Volume 10.8 fL (7.4-10.4); Monocytes # (manual) 0.49 K/uL (0.11-0.59); Monocytes % (manual) 14.9 %; Neutrophils # (manual) 1.85 K/uL (1.4-6.5); Neutrophils % (manual) 56.1 %; Platelet Count 66 K/uL (130-400); Platelet Estimate Decreased (Normal); Reactive Lymphocytes # (manual) 0.49 K/uL; Reactive Lymphocytes % (manual) 14.9 %
[2020-01-30 10:12] LABS: Albumin Level 3.2 gm/dl (3.4-5.0); Creatinine Clr Calc Pharmacy 92.1 ml/min; Est GFR (African American) 105.1; Est GFR (Non-African American) 90.7; Magnesium 1.8 mg/dl (1.8-2.4); Potassium 3.7 mmol/L (3.5-5.1)
[2020-01-30 10:22] LABS: Albumin Globulin Ratio 0.9 (0.9-2); Bilirubin,Total 2.7 mg/dl (0.2-1); Globulin 3.5 gm/dl (2.5-4.0); Phosphorus 2.2 mg/dl (2.5-4.9); Total Protein 6.7 gm/dl (6.4-8.2)
[2020-01-30] MEDS ORDERED: MAGNESIUM SULFATE / D5W 1 GM/100 ML BAG IV ONE (15:30)
[2020-01-30] MEDS: MAGNESIUM OXIDE 400 MG TAB PO SCH (15:51)
[2020-01-30] MEDS: valACYclovir HCL 500 MG TABLET PO SCH (20:24)
[2020-01-31] MEDS: SUCRALFATE 1 GM TAB PO SCH (08:45)
[2020-01-31] MEDS: LACTULOSE SYRUP 20 GM/30 ML UDC PO SCH (08:46)
[2020-01-31] MEDS: PANTOprazole 40 MG TAB PO SCH (08:46)
[2020-01-31] MEDS: rifAXIMin 550 MG TABLET PO SCH (08:46)
[2020-01-31] MEDS: FOLIC ACID 1 MG TAB PO SCH (08:46)
[2020-01-31] MEDS: MAGNESIUM OXIDE 400 MG TAB PO SCH (08:46)
[2020-01-31] MEDS: THIAMINE HCL 100 MG TAB PO SCH (08:46)
[2020-01-31] MEDS: CYANOCOBALAMIN (VITAMIN B-12) 100 MCG TABLET PO SCH (08:46)
--- NOTE | 2020-01-31 11:04 | Orthopedic Consultation ---
Date of Consultation January 31, 2020 Assessment & Plan (1) History of lumbar fusion: This time the patient is planning to leave today. He would require a outpatient follow-up and most likely a CAT scan and MRI lumbar spine for thorough evaluation. Present on Admission?: Yes History of Present Illness Reason for Consultation: Chronic back and right leg pain Attending Physician: Gomez Viera MD History of Present Illness This is a 59-year-old male who presents with chronic back and leg pain status post lumbar decompression fusion. There are some concern of loosening hardware. He states his symptoms are worse with standing and walking. They radiate predominantly in the right buttock and groin. He denies any weakness. States he has numbness affecting both the bilateral anterior thighs to the knees. Describes himself as a recovering alcoholic and is not had a drink in 6 years. Allergies Allergy/AdvReac Type Severity Reaction Status Date / Time No Known Allergies Allergy Verified 01/28/20 21:22 Home Medications Medication Instructions Recorded Confirmed Type Xifaxan 550 mg PO BID 11/04/17 01/28/20 History cyanocobalamin (vitamin B-12) 100 mcg PO DAILY 11/04/17 01/28/20 History [Vitamin B-12] folic acid 1 mg PO QAM 11/04/17 01/28/20 History furosemide [Lasix] 40 mg PO BID 11/04/17 01/28/20 History omeprazole 40 mg PO QAM 11/04/17 01/28/20 History spironolactone 100 mg PO BID 11/04/17 01/28/20 History thiamine HCl (vitamin B1) [Vitamin 100 mg PO QAM 11/04/17 01/28/20 History B-1] albuterol sulfate [Ventolin HFA] 2 puff INHALATION Q4H PRN 04/30/18 01/28/20 History sildenafil (pulm.hypertension) 40 mg PO WK PRN 08/06/19 01/28/20 History [Revatio] diclofenac sodium 2 g TOPICAL BID PRN 11/10/19 01/28/20 History potassium chloride 20 meq PO DAILY 11/11/19 01/28/20 History duloxetine 30 mg PO DAILY 12/21/19 01/28/20 History lactulose [Kristalose] 20 g PO TID 12/21/19 01/28/20 History buprenorphine 1 patch TRANSDERMAL Q7D 01/28/20 01/28/20 History fluticasone propionate [Flonase 2 spray INTRANASAL DAILY 01/28/20 01/28/20 History Allergy Relief] ondansetron 4 mg PO Q6H PRN 01/28/20 01/28/20 History valacyclovir 1,000 mg PO HS 01/28/20 01/28/20 History Patient History Medical History (Updated 01/29/20 @ 12:19 by Gomez Viera MD) Anxiety Chronic back pain Depression Encephalopathy, hepatic Fusion of spine February 2019 Genital herpes GERD (gastroesophageal reflux disease) Hearing deficit right ear perf eardrum History of alcohol abuse History of anemia History of cirrhosis of liver D/T ALCOHOL History of colon polyps History of hepatitis C Hx of ascites Hx of encephalopathy HEAPTIC Hx of esophageal varices Hx of gynecomastia Hx of thrombocytopenia Hypertension Osteoarthritis Portal hypertensive gastropathy Portal vein thrombosis Urinary tract infection history of Surgical History (Updated 12/04/19 @ 10:58 by Coy Castellon PA-C) History of lumbar fusion History of tooth extraction all teeth removed History of total right hip arthroplasty 2018 Hx of decompression of ulnar nerve RIGHT Family History Father Diabetes Other No family history of adverse response to anesthesia Social History Smoking Status: Never smoker Cigarettes Per Day: 1ppd x 2 years; Second Hand Exposure: Yes; Hx Alcohol Use: No Hx Substance Use: No Preferred Language: Uzbek Communication Ability: Impaired Adult Neurologist Required: No Beliefs That Will Affect Care: None marital status: Single Current Living Situation: Alone Current Living Situation Comment: Lives with friend How many Children do You have: 0 Other Information That Helps Us Care for You: No Feels Safe at Home: Yes Safety Concerns: Feels Safe At This Time Assistive Devices: None Physical Exam Physical Exam: Patient is able to stand. Muscle strength testing. Incision of the lumbar spine well-healed. Results & Data ([facility]) Vital Signs (Past 12 Hours) Vital Signs Temp Pulse Pulse Resp BP Pulse Ox 01/31/20 09:53 106 H 01/31/20 07:22 36.8 C 102 H 20 171/82 H 98 01/31/20 03:38 36.3 C L 97 H 18 144/90 H 99 01/30/20 23:32 96 H 01/30/20 23:27 36.5 C 90 18 129/69 98
--- NOTE | 2020-01-31 11:37 | Hospitalist Progress Note ---
Date of Service January 31, 2020 Assessment & Plan (1) Acute metabolic encephalopathy: Drug Overdose Possible Hepatic Encephalopathy Hyperammonemia -This is a patient who presented to the ED on 01/28/2020 by EMS with altered mental status ( EMS reports patient was found by family member with 4 Butrans (buprenorphine) patches on (prescription for only 1 at a time) and seemed groggy/sleepy. EMS reports this was possibly these multiple patches over the past 3 days but unsure the validity of that information) and was admitted by hospitalist Dr. Snyder to medical telemetry gomez.Patient also noted to have history of alcoholic liver cirrhosis and fluctuating elevation in serum ammonia levels. Patient was given IV fluids by admitting physician in regards to buprenorphine overdose but nurse concerns of possible noncompliance with lactulose - patient's serum second ammonia level increased compared to 83 compared to initial serum ammonia of 38 but suspect that patient's ammonia can be fluctuating up and down above normal levels at baseline. when seen in the day time of 01/29/2020, patient demanding to go home but he reports of gaps in his memory and he does not appear to able to make medical decisions for himself as he could not follow with hospitalist medicine about consequences of action or demonstrate he can comprehend the medical medical care. Review of systems is unobtainable despite patient being verbal -as of 01/30/2020 exam, patient is far more oriented and explains that he understood that he was found to have too many buprenorphine patches when he came to the ED. He cannot explain as to why he had multiples patches on at home but he now says he will no longer use those patches for back pain. By his history today, he reports that besides his use of the patches, he claims his only other medication use at home is lactulose 3 times a day at home. Patient is cooperative today to allow blood draws and for re-assessment of his health while in the hospital by 01/31/2020 -as of 01/31/2020, patient seen by hospitalist and he is ambulating well and s peaking comfortably. He was seen by orthopedics Dr. Bauer who made outpatient recommendations. Hospitalist to discharge the patient as per his request and medications to help optimize the chronic liver issues have been sent sent electronically to [facility] [id number] [place] [address]. Patient is advised on medical adherence Patient is recommended to follow up with orthopedic clinic in regards to management of back pain including any potential issues with hardware of the back. Review of [facility] notes that patient follows with [facility] orthopedics group (as per inpatient orthopedic assessment Dr. Bauer, he recommends outpatient follow-up and most likely a CAT scan and MRI lumbar spine for thorough evaluation) scheduled appointments 02/05/2020 3:00 PM Provider Kermit Roy MD Department Internal Medicine [facility] 02/17/2020 10:00 AM Provider BECKY Valdez Department Gastroenterology, [facility] 02/27/2020 10:00 AM Provider Gene Vallejo MD Department [facility] [place], [facility] Alcoholic liver cirrhosis Leukopenia and thrombocytopenia secondary to alcoholic liver cirrhosis -management with lactulose or Xifaxan and furosemide depends on patient's medical adherence History of depression and anxiety -behavioral health service was asked to follow with medicine hospitalist team if any acute issues regarding mental health History of Back Surgery -Prior laminectomy with posterior interbody mohan and screw fusion at L3-L4. Lucency surrounding the bilateral L3 and left L4 pedicle screws suggests hardware loosening. -request hospital orthopedic back surgeon to assess this issue -patient appears to be walking on his own power -avoid buprenorphine patches -He would require a outpatient follow-up and most likely a CAT scan and MRI lumbar spine for thorough evaluation as outpatient Prolonger QTc on EKG -QTC appears to be chronically prolonged based on review of past EKGs in [facility] system Admission and Anticipated Discharge Date Admission Date: January 28, 2020 Subjective Patient in no acute distress. Ambulating well. Breathing on room air. He is answering questions well. He denies any new acute symptoms Review of Systems Review of Systems: All systems reviewed & are unremarkable except as noted in Subjective Physical Exam Constitutional: comfortable Eyes: EOM intact bilaterally ENMT: external ear and nose normal, oropharynx normal Neck: normal visual inspection Respiratory: normal respiratory effort, lungs clear to auscultation Cardiovascular: Rate/Rhythm: regular rate and regular rhythm Gastrointestinal (Abdomen): Inspection/Auscultation: normal bowel sounds Percussion/Palpation: abdomen soft Musculoskeletal: Head/Neck/Chest: normocephalic and head atraumatic Neurologic: PERRL, EOMI, accommodation nl, no face palsy, no dysarthria moves all extremities Psychiatric: A+Ox3, euthymic affect Results & Data Results & Data ([facility]) Vital Signs (Past 12 Hours) Vital Signs Temp Pulse Pulse Resp BP Pulse Ox 01/31/20 09:53 106 H 01/31/20 07:22 36.8 C 102 H 20 171/82 H 98 01/31/20 03:38 36.3 C L 97 H 18 144/90 H 99
--- NOTE | 2020-01-31 11:45 | Discharge Summary ---
Date of Service January 31, 2020 Admission HPI Per Admitting Provider DATE OF ADMISSION: 01/28/2020 CHIEF COMPLAINT: Drug overdose. HISTORY OF PRESENT ILLNESS: This is a 59-year-old male with past medical history significant for alcoholic liver cirrhosis, history of alcoholism, in remission, history of portal hypertensive gastropathy, GERD without esophagitis, hypertension, portal vein thrombosis, esophageal varices, peripheral neuropathy, history of thrombocytopenia, history of pancytopenia, history of cocaine use disorder, in remission, cannabis use disorder, in remission, gynecomastia, ambulatory dysfunction, anxiety, depression, who lives alone, was brought into the hospital because family members found that he had 4 buprenorphine patches on him. As per the family he needs to be on one at a time for a week, and seems groggy and sleepy. There is a question that he might be having these patches for the last few days. The patient is currently awake but somewhat groggy in the ER, afebrile currently, somewhat restless, but alert to name. When questioned, he states that he is in the hospital and denies any back pain or belly pain or chest pain. No nausea, no cough, no fever. Appetite is okay. Denies any other complaints. Could not get a complete review of systems on the patient. He was somewhat slow to answer and also somewhat groggy. Principal Diagnosis Acute metabolic encephalopathy from Drug Overdose, Possible Hepatic Encephalopathy Hyperammonemia from Alcoholic liver cirrhosis with Leukopenia and thrombocytopenia secondary to alcoholic liver cirrhosis Prolonged QTc on EKG (chronic) History of Back Surgery (Prior laminectomy with posterior interbody mohan and screw fusion at L3-L4. Lucency surrounding the bilateral L3 and left L4 pedicle screws suggests hardware loosening.) Discharge Exam Constitutional comfortable Eyes EOM intact bilaterally ENMT external ear and nose normal, oropharynx normal Neck normal visual inspection Respiratory normal respiratory effort, lungs clear to auscultation Cardiovascular Rate/Rhythm: regular rate and regular rhythm Gastrointestinal (Abdomen) Inspection/Auscultation: normal bowel sounds Percussion/Palpation: abdomen soft Musculoskeletal Head/Neck/Chest: normocephalic and head atraumatic Neurologic PERRL, EOMI, accommodation nl, no face palsy, no dysarthria moves all extremities Psychiatric A+Ox3, euthymic affect Orientation: alert Discharge Data Allergies Allergy/AdvReac Type Severity Reaction Status Date / Time No Known Allergies Allergy Verified 01/28/20 21:22 Consultations 01/28/20 19:43 ED Decision to Admit Stat 01/28/20 23:51 Consult Case Management - Discharge Planning Routine 01/29/20 12:16 Consult Behavioral Health Liaison Routine 01/30/20 09:33 Consult Orthopedic Surgery Routine Ordered Studies 01/28/20 15:51 CT abd pelvis IV con only Stat CT head/brain wo con Stat Hospital Course (1) Acute metabolic encephalopathy: Drug Overdose Possible Hepatic Encephalopathy Hyperammonemia -This is a patient who presented to the ED on 01/28/2020 by EMS with altered mental status ( EMS reports patient was found by family member with 4 Butrans (buprenorphine) patches on (prescription for only 1 at a time) and seemed groggy/sleepy. EMS reports this was possibly these multiple patches over the past 3 days but unsure the validity of that information) and was admitted by hospitalist Dr. Snyder to medical telemetry gomez.Patient also noted to have history of alcoholic liver cirrhosis and fluctuating elevation in serum ammonia levels. Patient was given IV fluids by admitting physician in regards to buprenorphine overdose but nurse concerns of possible noncompliance with lactulose - patient's serum second ammonia level increased compared to 83 compared to initial serum ammonia of 38 but suspect that patient's ammonia can be fluctuating up and down above normal levels at baseline. when seen in the day time of 01/29/2020, patient demanding to go home but he reports of gaps in his memory and he does not appear to able to make medical decisions for himself as he could not follow with hospitalist medicine about consequences of action or demonstrate he can comprehend the medical medical care. Review of systems is unobtainable despite patient being verbal -as of 01/30/2020 exam, patient is far more oriented and explains that he understood that he was found to have too many buprenorphine patches when he came to the ED. He cannot explain as to why he had multiples patches on at home but he now says he will no longer use those patches for back pain. By his history today, he reports that besides his use of the patches, he claims his only other medication use at home is lactulose 3 times a day at home. 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 He was seen by orthopedics Dr. Bauer who made outpatient recommendations. Hospitalist to discharge the patient as per his request and medications to help optimize the chronic liver issues have been sent sent electronically to [address] [id number] Patient is advised on medical adherence Patient is recommended to follow up with orthopedic clinic in regards to managem ent of back pain including any potential issues with hardware of the back. Review of [facility] notes that patient follows with [facility] orthopedics group (as per inpatient orthopedic assessment Dr. Bauer, he recommends outpatient follow-up and most likely a CAT scan and MRI lumbar spine for thorough evaluation) scheduled appointments 02/05/2020 3:00 PM Provider Kermit Roy MD Department Internal Medicine [facility] 02/17/2020 10:00 AM Provider BECKY Valdez Department Gastroenterology, [facility] 02/27/2020 10:00 AM Provider Gene Vallejo MD Department [facility] Alcoholic liver cirrhosis Leukopenia and thrombocytopenia secondary to alcoholic liver cirrhosis -management with lactulose or Xifaxan and furosemide depends on patient's medical adherence History of depression and anxiety -behavioral health service was asked to follow with medicine hospitalist team if any acute issues regarding mental health History of Back Surgery -Prior laminectomy with posterior interbody mohan and screw fusion at L3-L4. Lucency surrounding the bilateral L3 and left L4 pedicle screws suggests hardware loosening. -request hospital orthopedic back surgeon to assess this issue -patient appears to be walking on his own power -avoid buprenorphine patches -He would require a outpatient follow-up and most likely a CAT scan and MRI lumbar spine for thorough evaluation as outpatient Prolonger QTc on EKG -QTC appears to be chronically prolonged based on review of past EKGs in [facility] system Total Time Total Time Spent Total Time Spent (In Minutes): 40 minutes Total Time Includes: Examination of the Patient, Discharge Planning, Medication Reconciliation and Communication With Other Providers Discharge Plan Discharge Items Patient Disposition: Home - Home Health Services Reason For Visit: DRUG OVERDOSE Discharge Diagnosis: Acute metabolic encephalopathy from Drug Overdose, Possible Hepatic Encephalopathy Hyperammonemia from Alcoholic liver cirrhosis with Leukopenia and thrombocy topenia secondary to alcoholic liver cirrhosis Prolonged QTc on EKG (chronic) History of Back Surgery (Prior laminectomy with posterior interbody mohan and screw fusion at L3-L4. Lucency surrounding the bilateral L3 and left L4 pedicle screws suggests hardware loosening.) Condition on Discharge: Fair Activity: Per Instructions section Weightbearing: Full weightbearing Non-emergency contact: Primary Care Provider and Mine Motor Engineer Call non-emergency contact if: you have any medication questions Follow-up/Referrals: Najma Garcia MD [Primary Care Provider] - Diet: Low Sodium (2gm) Addtl Attending Provider Instructions: discharge medications sent electronically to [address] [address] Patient is recommended to follow up with orthopedic clinic in regards to management of back pain including any potential issues with hardware of the back. Review of [facility] notes that patient follows with [facility] orthopedics group (as per inpatient orthopedic assessment Dr. Bauer, he recommends outpatient follow-up and most likely a CAT scan and MRI lumbar spine for thorough evaluation) scheduled appointments 02/05/2020 3:00 PM Provider Kermit Roy MD Department Internal Medicine [facility] 02/17/2020 10:00 AM Provider BECKY Valdez Department Gastroenterology, [facility] 02/27/2020 10:00 AM Provider Gene Vallejo MD Department [facility] [place], [facility] Pending Studies at Discharge: No Stand-Alone Forms: My [facility], Smoking Cessation Medications and DC Order Prescriptions: New Xifaxan 550 mg Tablet 550 mg PO BID 30 Days Qty: 60 RF: 0 magnesium oxide 400 mg (241.3 mg magnesium) Tablet 400 mg PO QAM 30 Days Qty: 30 RF: 0 pantoprazole 40 mg Tablet,Delayed Release (Dr/Ec) 40 mg PO QAM 30 Days Qty: 30 RF: 0 lactulose 20 gram/30 mL Solution 30 ml PO TID 30 Days Qty: 2700 RF: 0 cyanocobalamin (vitamin B-12) [Vitamin B-12] 100 mcg Tablet 100 mcg PO DAILY 30 Days Qty: 30 RF: 0 thiamine HCl (vitamin B1) [Vitamin B-1] 100 mg Tablet 100 mg PO QAM 30 Days Qty: 30 RF: 0 folic acid 1 mg Tablet 1 mg PO QAM 30 Days Qty: 30 RF: 0 furosemide [Lasix] 40 mg tablet 40 mg PO DAILY 30 Days Qty: 30 RF: 0 spironolactone 100 mg tablet 100 mg PO DAILY 30 Days Qty: 30 RF: 0 potassium chloride 20 mEq tablet,ER particles/crystals 20 meq PO DAILY 30 Days Qty: 30 RF: 0 Continued albuterol sulfate [Ventolin HFA] 90 mcg/actuation Hfa Aerosol Inhaler 2 puff INHALATION Q4H PRN (Reason: Shortness Of Breath) RF: 0 sildenafil (pulm.hypertension) [Revatio] 20 mg tablet 40 mg PO WK PRN (Reason: Sexual Activity) RF: 0 Discontinued furosemide [Lasix] 40 mg Tablet 40 mg PO BID RF: 0 cyanocobalamin (vitamin B-12) [Vitamin B-12] 100 mcg Tablet 100 mcg PO DAILY RF: 0 spironolactone 100 mg Tablet 100 mg PO BID RF: 0 thiamine HCl (vitamin B1) [Vitamin B-1] 100 mg Tablet 100 mg PO QAM RF: 0 omeprazole 40 mg Capsule,Delayed Release(Dr/Ec) 40 mg PO QAM RF: 0 folic acid 1 mg Tablet 1 mg PO QAM RF: 0 Xifaxan 550 mg Tablet 550 mg PO BID RF: 0 diclofenac sodium 1 % gel 2 g TOPICAL BID PRN (Reason: Pain) RF: 0 potassium chloride 20 mEq Tablet Extended Release 20 meq PO DAILY RF: 0 Kristalose 20 gram packet 20 g PO TID RF: 0 duloxetine 30 mg capsule,delayed release(DR/EC) 30 mg PO DAILY RF: 0 ondansetron 4 mg tablet,disintegrating 4 mg PO Q6H PRN (Reason: Nausea) RF: 0 fluticasone propionate [Flonase Allergy Relief] 50 mcg/actuation spray,suspension 2 spray INTRANASAL DAILY RF: 0 buprenorphine 5 mcg/hour Patch Weekly 1 patch TRANSDERMAL Q7D RF: 0 valacyclovir 1 gram tablet 1,000 mg PO HS RF: 0 Discharge Orders: Discharge Order (Routine); Ordered 01/31/20 Ordered By: Gomez Viera Admission Data Admit Date/Time: 01/28/20 20:16 Attending Provider: Gomez Viera Admit Provider: Maynor Snyder Primary Care Provider: Najma Garcia Other Providers: Maynor Snyder ; Viraj Bauer
--- NOTE | 2020-01-31 13:20 | Electrocardiogram Report ---
Test Reason : Blood Pressure : / mmHG Vent. Rate : 084 BPM Atrial Rate : 084 BPM P-R Int : 162 ms QRS Dur : 096 ms QT Int : 406 ms P-R-T Axes : 071 064 061 degrees QTc Int : 479 ms Normal sinus rhythm Low voltage QRS Borderline ECG When compared with ECG of 29-JAN-2020 07:47, No significant change was found Confirmed by Gordy Pinto ([id number]) on 01/31/2020 1:20:02 PM Referred By: REFERRED SELF Confirmed By:Gordy Pinto
== END 2020-01-31 12:02 | disposition home health service (06) | DRG 917 ==
LOC: ED 14:44 → 2S 20:16

== ENCOUNTER 2020-02-29 15:29 | Inpatient (IN) ==
[2020-02-29 15:54] LABS: Hematocrit (blood only) 43.4 % (42-52); Hemoglobin 15.4 g/dL (14.0-18.0); Mean Corpuscular Hemoglobin 34.5 pg (25-34); Mean Corpuscular Hgb Conc 35.5 g/dL (32-36); Mean Corpuscular Volume 97.3 fL (80-100); RDW Standard Deviation 49.7 fL (36.4-46.3); Red Blood Count 4.46 M/uL (4.7-6.1); White Blood Count 4.69 K/uL (4.8-10.8)
[2020-02-29] MEDS ORDERED: rifAXIMin 550 MG TABLET PO ONE (15:59)
--- NOTE | 2020-02-29 16:00 | Emergency Department Note ---
Impression & Plan Acute hepatic encephalopathy, Confusion ED Provider Note Provider: Fredo Edwards MD DATE OF SERVICE:02/29/2020 CHIEF COMPLAINT: Confusion HISTORY OF PRESENT ILLNESS: Patient is a 60-year-old gentleman history of thrombocytopenia, lumbar disc herniation status post repair, liver cirrhosis wi th a history of hyperammonemia, esophageal varices, and GERD presenting here today via ambulance. Patient evidently was feeling more confused and called the ambulance. He states he limits this way when his ammonia is a bit off states has been taking his lactulose (he later tells me that he is only taking a little bit and then the story continues to change I do have some compliance questions with his home lactulose dosing). Denies fall. Patient is somewhat confused on exam and do not provide the clearest of histories. Denies any nausea or vomiting or abdominal pain. States he had multiple bowel movements today. Patient denies headache. His only complaint is occasionally have a little bit of pain in his right knee but again denies falling. Patient denies use of any drugs or medication patches. Denies use of alcohol. REVIEW OF SYSTEMS: A total of 10 review of systems was obtained and negative except as stated above in the HPI. PAST MEDICAL HISTORY: As noted above MEDICATIONS: Reviewed home medications. SOCIAL HISTORY:, former smoker, denies current alcohol use. 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 PERRL NECK: Trachea midline. Supple. ENT: Mucous membranes pink and moist. LUNGS: Airway patent. No retractions. Breath sounds clear HEART: Regular rate and rhythm. No chest wall tenderness ABDOMEN: Soft and non-tender, without guarding or rebound. BACK: No midline tenderness, no SI joint tenderness. SKIN: Acyanotic, warm, dry, without rashes EXTREMITIES: Without swelling, tenderness or deformity except for some slight tenderness of the right kneecap. No obvious deformity. Neuro intact distal in the right foot. NEUROLOGICAL: Moves all extremities. No facial droop. Occasionally some slightly slurred speech. Moves all extremities and follows commands. Denies numbness in the extremities. Patient does appear to have a bit of asterixis on exam. He is occasionally making some odd comments about his being in the room, she is not. EK bpm sinus tachycardia. No PVC or PAC. No acute ST segment elevation or depression. CONTINUOUS CARDIAC MONITORING: was ordered and showed a heart rate of bpm in Patient's laboratory studies and imaging reviewed. Differential includes Infection, dehydration, metabolic abnormality, hypo/hyperglycemia, electrolyte disturbance, anemia, hypoxia, cardiac sources, intracerebral event, toxicologic, neurologic, gastrointestinal, hyperammonemia, as well as other pathologies. IMPRESSION/MEDICAL DECISION MAKING: Patient presents via ambulance complaining of some confusion. Has a long history of liver dysfunction as well as some recent history of possible drug overdose. Patient denies any intoxicant usage. Does not appear to have any transdermal medication patches in place. Does have some asterixis and question if he has having elevated ammonia. Patient is compliant with home lactulose and has had multiple bowel movements per his report initially but this report from the patient later changes to only taking small amounts once a day and I do question if he is actually being compliant with this at home. Did give a dose of rifaximin here with concerns for hyperammonemia while labs were pending. VBG was ordered. Patient has history of thrombocytopenia and while he does not report trauma given his altered status although nonfocal a CT of the head will be completed. Patient states his little bit of pain of the right knee but denies falling and there is no significant swelling or erythema or wound here. Neuro intact. Doubt joint infection or hemarthrosis. Patient denies any s ymptoms consistent with GI bleed at this time Blood work shows slightly improved leukopenia, no anemia, and stable thrombocytopenia with a platelet of 61. INR of 1.2 appears stable. Bilirubin 2.6 similar to previous. Ammonia significantly better 112 today. Troponin is undetectable. No evidence of severe electrolyte abnormality or renal dysfunction. VBG without significant acidosis or hypercarbia. Rapid Covid test was ordered for need for admission for this patient with a negative result. CT the head again will be complete exclude intracranial abnormality. Chest x-ray with active disease in the chest. Medical alcohol to be added to to exclude this is etiology although the patient denies alcohol use. Again the patient received rifaximin here already but is declining lactulose at this time. Small amount of normal saline given. Discussed with patient need for admission he is in agreement and the hospitalist team was contacted. Patient is having some intermittent odd comments and seems to be having some hallucinations at times. DIAGNOSIS: Hepatic encephalopathy, confusion DISPOSITION: Hospitalist will evaluate Patient was agreeable with this plan. Past Med/Surg History Medical History (Updated 02/29/20 @ 16:44 by Fredo Edwards M.D.) Anxiety Chronic back pain Depression Encephalopathy, hepatic Fusion of spine February 2019 Genital herpes GERD (gastroesophageal reflux disease) Hearing deficit right ear perf eardrum History of alcohol abuse History of anemia History of cirrhosis of liver D/T ALCOHOL History of colon polyps History of hepatitis C Hx of ascites Hx of encephalopathy HEAPTIC Hx of esophageal varices Hx of gynecomastia Hx of thrombocytopenia Hypertension Lethargic Medication reaction Osteoarthritis Portal hypertensive gastropathy Portal vein thrombosis Urinary tract infection history of Surgical History (Updated 12/04/19 @ 10:58 by Coy Castellon PA-C) History of lumbar fusion History of tooth extraction all teeth removed History of total right hip arthroplasty 2018 Sept Hx of decompression of ulnar nerve RIGHT Family History Father Diabetes Other No family history of adverse response to anesthesia Social History Smoking Status: Current some day smoker Cigarettes Per Day: 1ppd x 2 years; Second Hand Exposure: Yes; Hx Alcohol Use: No Hx Substance Use: No Preferred Language: Macedonian Communication Ability: Impaired Clutch Specialist Required: No Beliefs That Will Affect Care: None marital status: Single Current Living Situation: Alone Current Living Situation Comment: Lives with friend How many Children do You have: 0 Feels Safe at Home: Yes Assistive Devices: None Allergies Allergies Allergy/AdvReac Type Severity Reaction Status Date / Time No Known Allergies Allergy Verified 02/29/20 17:02 Home Meds Home Medications Medication Instructions Recorded Confirmed sildenafil (pulm.hypertension) 40 mg PO WK PRN 08/06/19 02/29/20 [Revatio] amoxicillin 500 mg PO BID 02/29/20 02/29/20 diclofenac sodium 2 g TOPICAL BID PRN 02/29/20 02/29/20 duloxetine 60 mg PO DAILY 02/29/20 02/29/20 oxycodone 5 mg PO Q4H PRN 02/29/20 02/29/20 Previous Rx's Medication Instructions Recorded cyanocobalamin (vitamin B-12) 100 mcg PO DAILY 30 Days #30 tab 01/31/20 [Vitamin B-12] folic acid 1 mg PO QAM 30 Days #30 tab 01/31/20 furosemide [Lasix] 40 mg PO DAILY 30 Days #30 tab 01/31/20 lactulose 30 ml PO TID 30 Days #2700 ml 01/31/20 magnesium oxide 400 mg PO QAM 30 Days #30 tab 01/31/20 pantoprazole 40 mg PO QAM 30 Days #30 tab 01/31/20 potassium chloride 20 meq PO DAILY 30 Days #30 tab 01/31/20 rifaximin [Xifaxan] 550 mg PO BID 30 Days #60 tab 01/31/20 spironolactone 100 mg PO DAILY 30 Days #30 tab 01/31/20 thiamine HCl (vitamin B1) [Vitamin 100 mg PO QAM 30 Days #30 tab 01/31/20 B-1] Results & Data (ED) Vital Signs Vital Signs - 24 hr 02/29/20 15:35 02/29/20 15:40 02/29/20 15:43 Temperature 36.7 C Temperature Source Oral Pulse Rate 103 H 101 H 103 H Pulse Rate [Left] Pulse Rate from SpO2 Sensor 102 H 100 H Respiratory Rate 22 20 20 Respiratory Effort / Characteristics Blood Pressure 148/83 H 161/90 H Blood Pressure [Right Arm] Blood Pressure Mean 104 113 Blood Pressure Mean [Right Arm] Blood Pressure Position [Right Arm] Pulse Oximetry 99 98 95 Oxygen Delivery Method Room Air Sepsis Recent Fever Within 48 Hours No Sepsis New/Unexplained Change in Mental Status Yes Sepsis Action Taken by Nursing No Action Required 02/29/20 15:53 02/29/20 15:56 02/29/20 16:00 Temperature Temperature Source Pulse Rate 109 H 100 H 104 H Pulse Rate [Left] Pulse Rate from SpO2 Sensor Respiratory Rate 18 13 19 Respiratory Effort / Characteristics Blood Pressure 142/110 H 161/90 H Blood Pressure [Right Arm] Blood Pressure Mean 120 113 Blood Pressure Mean [Right Arm] Blood Pressure Position [Right Arm] Pulse Oximetry Oxygen Delivery Method Sepsis Recent Fever Within 48 Hours Sepsis New/Unexplained Change in Mental Status Sepsis Action Taken by Nursing 02/29/20 16:01 02/29/20 16:10 02/29/20 16:20 Temperature Temperature Source Pulse Rate 103 H 105 H 103 H Pulse Rate [Left] Pulse Rate from SpO2 Sensor 103 H Respiratory Rate 17 17 17 Respiratory Effort / Characteristics Blood Pressure Blood Pressure [Right Arm] Blood Pressure Mean Blood Pressure Mean [Right Arm] Blood Pressure Position [Right Arm] Pulse Oximetry 96 Oxygen Delivery Method Sepsis Recent Fever Within 48 Hours Sepsis New/Unexplained Change in Mental Status Sepsis Action Taken by Nursing 02/29/20 16:25 02/29/20 16:30 02/29/20 16:31 Temperature Temperature Source Pulse Rate 103 H 100 H 99 H Pulse Rate [Left] 107 H Pulse Rate from SpO2 Sensor 106 H 100 H Respiratory Rate 18 20 18 Respiratory Effort / Characteristics Non-Labored Spontaneous Blood Pressure 121/83 Blood Pressure [Right Arm] 161/90 H Blood Pressure Mean 95 Blood Pressure Mean [Right Arm] 113 Blood Pressure Position [Right Arm] Lying Pulse Oximetry 99 98 Oxygen Delivery Method Room Air Sepsis Recent Fever Within 48 Hours Sepsis New/Unexplained Change in Mental Status Sepsis Action Taken by Nursing 02/29/20 16:40 02/29/20 16:50 Temperature Temperature Source Pulse Rate 104 H 100 H Pulse Rate [Left] Pulse Rate from SpO2 Sensor 104 H 100 H Respiratory Rate 19 18 Respiratory Effort / Characteristics Blood Pressure Blood Pressure [Right Arm] Blood Pressure Mean Blood Pressure Mean [Right Arm] Blood Pressure Position [Right Arm] Pulse Oximetry 96 94 Oxygen Delivery Method Sepsis Recent Fever Within 48 Hours Sepsis New/Unexplained Change in Mental Status Sepsis Action Taken by Nursing Laboratory Data Result diagrams: 02/29/20 15:41 02/29/20 15:41 Lab Results 02/29/20 02/29/20 02/29/20 Range/Units 15:41 15:41 15:41 WBC 4.69 L (4.8-10.8) K/uL RBC 4.46 L (4.7-6.1) M/uL Hgb 15.4 (14.0-18.0) g/dL Hct 43.4 (42-52) % MCV 97.3 (80-100) fL MCH 34.5 H (25-34) pg MCHC 35.5 (32-36) g/dL RDW Std Deviation 49.7 H (36.4-46.3) fL RDW Coeff of Abhijit 14.0 (11.5-14.5) % Plt Count 61 L (130-400) K/uL MPV 11.2 H (7.4-10.4) fL Immature Gran % (Auto) 0.0 % Neut % (Auto) 66.1 % Lymph % (Auto) 18.3 % [place] % (Auto) 12.6 % Eos % (Auto) 2.1 % Baso % (Auto) 0.9 % Neut # (Auto) 3.10 (1.4-6.5) K/uL Lymph # (Auto) 0.86 L (1.2-3.4) K/uL [place] # (Auto) 0.59 (0.11-0.59) K/uL Eos # (Auto) 0.10 (0-0.5) K/uL Baso # (Auto) 0.04 (0-0.2) K/uL Immature Gran # (Auto) 0.00 (0.00-0.02) K/uL PT 12.8 H (9.0-12.0) Seconds INR 1.2 H (0.9-1.1) APTT 24.7 (21.0-31.0) Seconds PTT Ratio 0.9 VBG pH (7.36-7.41) VBG pCO2 (38-50) mmHg VBG pO2 mmHg VBG HCO3 mmol/L VBG O2 Saturation % VBG Base Excess mEq/L Barometric Pressure mm/Hg Sodium 142 (136-145) mmol/L Potassium 3.7 (3.5-5.1) mmol/L Chloride 108 H (98-107) mmol/L Carbon Dioxide 26 (21-32) mmol/L Anion Gap 8.0 (3-11) BUN 15 (7-18) mg/dl Creatinine 1.06 (0.6-1.4) mg/dl Est Cr Clr Drug Dosing 81.5 ml/min Est GFR ( Amer) 88.0 Est GFR (Non-Af Amer) 75.9 BUN/Creatinine Ratio 13.8 (10-20) Glucose 90 (70-99) mg/dl Calcium 9.4 (8.5-10.1) mg/dl Magnesium 2.0 (1.8-2.4) mg/dl Total Bilirubin 2.6 H (0.2-1) mg/dl AST 43 H (15-37) U/L ALT 32 (12-78) U/L Alkaline Phosphatase 118 H (45-117) U/L Ammonia (11-32) umol/L Troponin I < 0.015 (0-0.045) ng/ml Total Protein 7.0 (6.4-8.2) gm/dl Albumin 3.2 L (3.4-5.0) gm/dl Globulin 3.8 (2.5-4.0) gm/dl Albumin/Globulin Ratio 0.9 (0.9-2) TSH 1.230 (0.300-4.500) uIu/ml Ethyl Alcohol mg/dL (0-3) mg/dl COVID-19 Eval Order SARS-CoV-2, RNA, NAAT (NEGATIVE) 02/29/20 02/29/20 02/29/20 Range/Units 15:41 16:20 16:20 WBC (4.8-10.8) K/uL RBC (4.7-6.1) M/uL Hgb (14.0-18.0) g/dL Hct (42-52) % MCV (80-100) fL MCH (25-34) pg MCHC (32-36) g/dL RDW Std Deviation (36.4-46.3) fL RDW Coeff of Abhijit (11.5-14.5) % Plt Count (130-400) K/uL MPV (7.4-10.4) fL Immature Gran % (Auto) % Neut % (Auto) % Lymph % (Auto) % [place] % (Auto) % Eos % (Auto) % Baso % (Auto) % Neut # (Auto) (1.4-6.5) K/uL Lymph # (Auto) (1.2-3.4) K/uL [place] # (Auto) (0.11-0.59) K/uL Eos # (Auto) (0-0.5) K/uL Baso # (Auto) (0-0.2) K/uL Immature Gran # (Auto) (0.00-0.02) K/uL PT (9.0-12.0) Seconds INR (0.9-1.1) APTT (21.0-31.0) Seconds PTT Ratio VBG pH (7.36-7.41) VBG pCO2 (38-50) mmHg VBG pO2 mmHg VBG HCO3 mmol/L VBG O2 Saturation % VBG Base Excess mEq/L Barometric Pressure mm/Hg Sodium (136-145) mmol/L Potassium (3.5-5.1) mmol/L Chloride (98-107) mmol/L Carbon Dioxide (21-32) mmol/L Anion Gap (3-11) BUN (7-18) mg/dl Creatinine (0.6-1.4) mg/dl Est Cr Clr Drug Dosing ml/min Est GFR ( Amer) Est GFR (Non-Af Amer) BUN/Creatinine Ratio (10-20) Glucose (70-99) mg/dl Calcium (8.5-10.1) mg/dl Magnesium (1.8-2.4) mg/dl Total Bilirubin (0.2-1) mg/dl AST (15-37) U/L ALT (12-78) U/L Alkaline Phosphatase (45-117) U/L Ammonia 112.6 H (11-32) umol/L Troponin I (0-0.045) ng/ml Total Protein (6.4-8.2) gm/dl Albumin (3.4-5.0) gm/dl Globulin (2.5-4.0) gm/dl Albumin/Globulin Ratio (0.9-2) TSH (0.300-4.500) uIu/ml Ethyl Alcohol mg/dL (0-3) mg/dl COVID-19 Eval [id number] SARS-CoV-2, RNA, NAAT NEGATIVE (NEGATIVE) 02/29/20 02/29/20 Range/Units 16:27 16:36 WBC (4.8-10.8) K/uL RBC (4.7-6.1) M/uL Hgb (14.0-18.0) g/dL Hct (42-52) % MCV (80-100) fL MCH (25-34) pg MCHC (32-36) g/dL RDW Std Deviation (36.4-46.3) fL RDW Coeff of Abhijit (11.5-14.5) % Plt Count (130-400) K/uL MPV (7.4-10.4) fL Immature Gran % (Auto) % Neut % (Auto) % Lymph % (Auto) % [place] % (Auto) % Eos % (Auto) % Baso % (Auto) % Neut # (Auto) (1.4-6.5) K/uL Lymph # (Auto) (1.2-3.4) K/uL [place] # (Auto) (0.11-0.59) K/uL Eos # (Auto) (0-0.5) K/uL Baso # (Auto) (0-0.2) K/uL Immature Gran # (Auto) (0.00-0.02) K/uL PT (9.0-12.0) Seconds INR (0.9-1.1) APTT (21.0-31.0) Seconds PTT Ratio VBG pH 7.44 H (7.36-7.41) VBG pCO2 36 L (38-50) mmHg VBG pO2 40 mmHg VBG HCO3 24 mmol/L VBG O2 Saturation 73.1 % VBG Base Excess 0.2 mEq/L Barometric Pressure 735.2 mm/Hg Sodium (136-145) mmol/L Potassium (3.5-5.1) mmol/L Chloride (98-107) mmol/L Carbon Dioxide (21-32) mmol/L Anion Gap (3-11) BUN (7-18) mg/dl Creatinine (0.6-1.4) mg/dl Est Cr Clr Drug Dosing ml/min Est GFR ( Amer) Est GFR (Non-Af Amer) BUN/Creatinine Ratio (10-20) Glucose (70-99) mg/dl Calcium (8.5-10.1) mg/dl Magnesium (1.8-2.4) mg/dl Total Bilirubin (0.2-1) mg/dl AST (15-37) U/L ALT (12-78) U/L Alkaline Phosphatase (45-117) U/L Ammonia (11-32) umol/L Troponin I (0-0.045) ng/ml Total Protein (6.4-8.2) gm/dl Albumin (3.4-5.0) gm/dl Globulin (2.5-4.0) gm/dl Albumin/Globulin Ratio (0.9-2) TSH (0.300-4.500) uIu/ml Ethyl Alcohol mg/dL < 3.0 (0-3) mg/dl COVID-19 Eval Order SARS-CoV-2, RNA, NAAT (NEGATIVE) Administered Medications Discontinued Medications Sodium Chloride (Nss) 500 mls @ 999 mls/hr IV .Q31M ONE Stop: 02/29/20 17:06 Last Infusion: 02/29/20 17:29 Dose: 0 mls/hr Documented by: [id number] Admin: 02/29/20 16:50 Dose: 999 mls/hr Documented by: [id number] Rifaximin (Rifaximin 550 Mg Tablet) 550 mg PO ONCE ONE Stop: 02/29/20 16:00 Last Admin: 02/29/20 16:18 Dose: 550 mg Documented by: [id number] Discharge Plan Visit Data Chief Complaint: Confusion Stated Complaint: CONFUSION ED Provider: Fredo Edwards Discharge Problem: Acute hepatic encephalopathy, Confusion Patient Disposition: Being Evaluated by Hospitalist Forms Stand Alone Forms: [facility] Prescriptions Prescriptions: No Action sildenafil (pulm.hypertension) [Revatio] 20 mg tablet 40 mg PO WK PRN (Reason: Sexual Activity) RF: 0 Xifaxan 550 mg Tablet 550 mg PO BID 30 Days Qty: 60 RF: 0 magnesium oxide 400 mg (241.3 mg magnesium) Tablet 400 mg PO QAM 30 Days Qty: 30 RF: 0 pantoprazole 40 mg Tablet,Delayed Release (Dr/Ec) 40 mg PO QAM 30 Days Qty: 30 RF: 0 lactulose 20 gram/30 mL Solution 30 ml PO TID 30 Days Qty: 2700 RF: 0 cyanocobalamin (vitamin B-12) [Vitamin B-12] 100 mcg Tablet 100 mcg PO DAILY 30 Days Qty: 30 RF: 0 thiamine HCl (vitamin B1) [Vitamin B-1] 100 mg Tablet 100 mg PO QAM 30 Days Qty: 30 RF: 0 folic acid 1 mg Tablet 1 mg PO QAM 30 Days Qty: 30 RF: 0 furosemide [Lasix] 40 mg tablet 40 mg PO DAILY 30 Days Qty: 30 RF: 0 spironolactone 100 mg tablet 100 mg PO DAILY 30 Days Qty: 30 RF: 0 potassium chloride 20 mEq tablet,ER particles/crystals 20 meq PO DAILY 30 Days Qty: 30 RF: 0 amoxicillin 500 mg capsule 500 mg PO BID RF: 0 oxycodone 5 mg tablet 5 mg PO Q4H PRN (Reason: Pain) RF: 0 duloxetine 60 mg capsule,delayed release(DR/EC) 60 mg PO DAILY RF: 0 diclofenac sodium 1 % gel 2 g topical BID PRN (Reason: Pain) RF: 0 Referrals Referrals: Najma Garcia MD [Primary Care Provider] -
[2020-02-29 16:06] LABS: INR 1.2 (0.9-1.1); Partial Thromboplastin Ratio 0.9; Partial Thromboplastin Time 24.7 Seconds (21.0-31.0); Prothrombin Time 12.8 Seconds (9.0-12.0)
[2020-02-29 16:13] LABS: Mean Platelet Volume 11.2 fL (7.4-10.4); Platelet Count 61 K/uL (130-400)
[2020-02-29 16:15] LABS: Basophils # (auto) 0.04 K/uL (0-0.2); Basophils % (auto) 0.9 %; Eosinophils % (auto) 2.1 %; Lymphocytes # (auto) 0.86 K/uL (1.2-3.4); Lymphocytes % (auto) 18.3 %; Monocytes # (auto) 0.59 K/uL (0.11-0.59); Monocytes % (auto) 12.6 %; Neutrophils % (auto) 66.1 %
[2020-02-29 16:23] LABS: Alanine Aminotransferase 32 U/L (12-78); Albumin Level 3.2 gm/dl (3.4-5.0); Aspartate Aminotransferase 43 U/L (15-37); BUN Creatinine Ratio 13.8 (10-20); Blood Urea Nitrogen 15 mg/dl (7-18); Calcium 9.4 mg/dl (8.5-10.1); Carbon Dioxide 26 mmol/L (21-32); Chloride 108 mmol/L (98-107); Creatinine Clr Calc Pharmacy 81.5 ml/min; Est GFR (Non-African American) 75.9; Glucose 90 mg/dl (70-99); Potassium 3.7 mmol/L (3.5-5.1); Sodium 142 mmol/L (136-145)
--- NOTE | 2020-02-29 16:27 | XRay Report ---
SINGLE VIEW CHEST CLINICAL HISTORY: Change in mental status. FINDINGS: An AP, portable, upright chest radiograph is compared to study dated 01/28/2020. The cardio mediastinal silhouette is unremarkable. Pericardial calcification is similar to previous. There is mi ld bibasilar atelectasis. The lungs and pleural spaces are otherwise clear. No pneumothorax is seen. The bony thorax is grossly intact. IMPRESSION: No active disease in the chest. Electronically signed by: Jamil Freedman M.D. 02/29/2020 4:26 PM
[2020-02-29 16:33] LABS: Albumin Globulin Ratio 0.9 (0.9-2); Alkaline Phosphatase 118 U/L (45-117); Bilirubin,Total 2.6 mg/dl (0.2-1); Globulin 3.8 gm/dl (2.5-4.0); Troponin I < 0.015 ng/ml (0-0.045)
[2020-02-29] MEDS ORDERED: SODIUM CHLORIDE 0.9% 500 ML IV ONE (16:36)
[2020-02-29 16:49] LABS: Base Excess VBG 0.2 mEq/L; Oxygen Saturation VBG 73.1 %; pH VBG 7.44 (7.36-7.41)
--- NOTE | 2020-02-29 17:55 | CT Scan Report ---
CT SCAN OF THE BRAIN WITHOUT IV CONTRAST CLINICAL HISTORY: Change in mental status. COMPARISON STUDY: CT of the brain dated 01/28/2020. TECHNIQUE: Unenhanced axial CT scan of the brain is performed from the vertex to the skull base. A d ose lowering technique was utilized adhering to the principles of ALARA. CT DOSE: 614.27 mGy.cm FINDINGS: Brain parenchyma: The brain parenchyma is normal in appearance. There is no hemorrhage, mass effect, or evidence of acute territorial ischemia by CT criteria. Michel-white matter differentiation is preser kb. No extra-axial fluid collection is seen. Ventricles, sulci, cisterns: Normal in configuration. Intracranial vasculature: There is atherosclerotic calcification of the cavernous carotid and vertebr al arteries. Calvarium: Unremarkable. Sinuses and mastoids: The visualized paranasal sinuses are clear. The mastoid air cells are well pneu matized. Orbits: The bony orbits are grossly intact. IMPRESSION: There is no hemorrhage, mass effect, or evidence of acute territorial ischemia by CT reny robins. ACT 112: Negative or not required by law. Electronically signed by: Jamil Freedman M.D. 02/29/2020 5:54 PM
--- NOTE | 2020-02-29 18:59 | History & Physical Report ---
Date of Service February 29, 2020 Assessment & Plan (1) Confusion: (2) Acute hepatic encephalopathy: Possible drug related confusion Pt is 60 y/o M with PMH alcoholic liver cirrhosis, prior history of alcoholism, portal vein thrombosis, esophageal varices, portal hypertensive gastropathy, GERD, HTN, peripheral neuropathy, thrombocytopenia, pancytopenia, prior drug use, anxiety, depression presented to ER for confusion. PDMP reviewed oxycodone filled 02/27/2020 for #28 tablets In ER pt afebrile, P: 103 down to 98, R: 18, BP: 151/81, 95% on RA. WBC: 4, ammonia: 112. negative ETOH. CT head negative. CXR: no acute process. Negative COVID 19 testing. In ER given rifaximin as pt refused lactulose UA and urine drug tox pending. Blood cultures pending however no overt signs of infection at this time. No abdominal pain Reports last ETOH use and drug use 6 years ago Increase lactulose dosing to QID Continue rifaximin, Lasix, Aldactone, potassium and magnesium supplements Hold oxycodone for now Repeat labs in am GI consult H/O ANEMIA & THROMBOCYTOPENIA Hgb: 15 (baseline in 14's), Plt: 61 (baseline 60-70s) DEPRESSION/ANXIETY Continue duloxetine DVT Prophylaxis -SCDs Follows with Dr Roy for routine care Pt was seen and care coordinated with Dr Parekh. See addendum History of Present Illness Chief Complaint: Confusion Primary Care Provider: Najma Garcia MD Pt is 60 y/o M with PMH alcoholic liver cirrhosis, prior history of alcoholism, portal vein thrombosis, esophageal varices, portal hypertensive gastropathy, GERD, HTN, peripheral neuropathy, thrombocytopenia, pancytopenia, prior drug use, anxiety, depression presented to ER for confusion. History obtained from ER staff and record review secondary to pt's confusion. Pt oriented to self and knows he is in hospital. He states his head feels weird and he feels confused. Pt states taking his lactulose daily, however having a difficult time remembering so it is unclear if pt taking his medications appropriately. Of note pt with recent hospital admission 01/28/20-01/31/20 for encephalopathy related to drug overdose (had 4 buprenorphine patches on) and possible hepatic encephalopathy. Pt denies CP, SOB. Reports "don't feel good & I don't feel right". Allergies Allergy/AdvReac Type Severity Reaction Status Date / Time No Known Allergies Allergy Verified 02/29/20 17:02 Home Medications Medication Instructions Recorded Confirmed Type sildenafil (pulm.hypertension) 40 mg PO WK PRN 08/06/19 02/29/20 History [Revatio] cyanocobalamin (vitamin B-12) 100 mcg PO DAILY 30 Days #30 tab 01/31/20 02/29/20 Rx [Vitamin B-12] folic acid 1 mg PO QAM 30 Days #30 tab 01/31/20 02/29/20 Rx furosemide [Lasix] 40 mg PO DAILY 30 Days #30 tab 01/31/20 02/29/20 Rx lactulose 30 ml PO TID 30 Days #2700 ml 01/31/20 02/29/20 Rx magnesium oxide 400 mg PO QAM 30 Days #30 tab 01/31/20 02/29/20 Rx pantoprazole 40 mg PO QAM 30 Days #30 tab 01/31/20 02/29/20 Rx potassium chloride 20 meq PO DAILY 30 Days #30 tab 01/31/20 02/29/20 Rx rifaximin [Xifaxan] 550 mg PO BID 30 Days #60 tab 01/31/20 02/29/20 Rx spironolactone 100 mg PO DAILY 30 Days #30 tab 01/31/20 02/29/20 Rx thiamine HCl (vitamin B1) [Vitamin 100 mg PO QAM 30 Days #30 tab 01/31/20 02/29/20 Rx B-1] amoxicillin 500 mg PO BID 02/29/20 02/29/20 History diclofenac sodium 2 g TOPICAL BID PRN 02/29/20 02/29/20 History duloxetine 60 mg PO DAILY 02/29/20 02/29/20 History oxycodone 5 mg PO Q4H PRN 02/29/20 02/29/20 History Past Med/Surg History Medical History Anxiety Chronic back pain Depression Encephalopathy, hepatic Fusion of spine February 2019 Genital herpes GERD (gastroesophageal reflux disease) Hearing deficit right ear perf eardrum History of alcohol abuse History of anemia History of cirrhosis of liver D/T ALCOHOL History of colon polyps History of hepatitis C Hx of ascites Hx of encephalopathy HEAPTIC Hx of esophageal varices Hx of gynecomastia Hx of thrombocytopenia Hypertension Lethargic Medication reaction Osteoarthritis Portal hypertensive gastropathy Portal vein thrombosis Urinary tract infection history of Surgical History History of lumbar fusion History of tooth extraction all teeth removed History of total right hip arthroplasty 2019 Sept Hx of decompression of ulnar nerve RIGHT Family History Father Diabetes Other No family history of adverse response to anesthesia Social History Smoking Status: Current some day smoker Cigarettes Per Day: 1ppd x 2 years; Second Hand Exposure: Yes; Hx Alcohol Use: No Hx Substance Use: No Preferred Language: [place] Communication Ability: Impaired Stubber Required: No Beliefs That Will Affect Care: None marital status: Single Current Living Situation: Alone Current Living Situation Comment: Lives with friend How many Children do You have: 0 Feels Safe at Home: Yes Assistive Devices: None Review of Systems Review of Systems: Unobtainable due to cognitive status Physical Exam Physical Exam: Per Dr Parekh Results & Data Results & Data ([facility]) Vital Signs (Past 12 Hours) Vital Signs Temp Pulse Pulse Resp BP BP Pulse Ox 02/29/20 18:36 98 H 21 151/81 H 95 02/29/20 17:31 99 H 18 163/91 H 02/29/20 17:30 97 H 15 02/29/20 17:00 98 H 14 120/78 97 02/29/20 16:50 100 H 18 94 02/29/20 16:40 104 H 19 96 02/29/20 16:31 99 H 18 121/83 98 02/29/20 16:30 100 H 20 02/29/20 16:25 103 H 107 H 18 161/90 H 99 02/29/20 16:20 103 H 17 96 02/29/20 16:10 105 H 17 02/29/20 16:01 103 H 17 02/29/20 16:00 104 H 19 161/90 H 02/29/20 15:56 100 H 13 142/110 H 02/29/20 15:53 109 H 18 02/29/20 15:43 36.7 C 103 H 20 161/90 H 95 02/29/20 15:40 101 H 20 98 02/29/20 15:35 103 H 22 148/83 H 99 Laboratory Results Short CBC 02/29/20 02/29/20 Range/Units 15:41 15:41 WBC 4.69 L (4.8-10.8) K/uL Hgb 15.4 (14.0-18.0) g/dL Hct 43.4 (42-52) % Plt Count 61 L (130-400) K/uL Ammonia 112.6 H (11-32) umol/L BMP 02/29/20 15:41 Sodium 142 Potassium 3.7 Chloride 108 H Carbon Dioxide 26 BUN 15 Creatinine 1.06 Glucose 90 Calcium 9.4 Cardiac Enzymes 02/29/20 Range/Units 15:41 Troponin I < 0.015 (0-0.045) ng/ml Liver Function 02/29/20 Range/Units 15:41 Total Bilirubin 2.6 H (0.2-1) mg/dl AST 43 H (15-37) U/L ALT 32 (12-78) U/L Alkaline Phosphatase 118 H (45-117) U/L Albumin 3.2 L (3.4-5.0) gm/dl Diagnostic Findings CT HEAD: IMPRESSION: There is no hemorrhage, mass effect, or evidence of acute territorial ischemia by CT criteria. CXR: IMPRESSION: No active disease in the chest. Code Status & VTE Plan VTE Prophylaxis Plan VTE Prophylaxis will be ordered: Yes Supervising Physician Co-Signing Physician Notes 60 y/o M with PMH alcoholic liver cirrhosis, prior history of alcoholism, portal vein thrombosis, esophageal varices, portal hypertensive gastropathy, GERD, HTN, peripheral neuropathy, thrombocytopenia, pancytopenia, prior drug use, anxiety, depression presented to ER for confusion. Patient could not provide detailed history due to mental status. General: Alert but confused, in no distress Eyes: PERRL, conjunctivae normal, EOM intact bilaterally ENMT: External ear and nose normal, oropharynx normal Respiratory: Normal respiratory effort, no respiratory distress, lungs clear to auscultation, no crackles and no wheezes Cardiovascular: RRR S1-S2 Gastrointestinal (Abdomen): Abdomen is not distended, soft, non-tender to palpation, no guarding, no palpable hepatosplenomegaly, normal bowel sounds Musculoskeletal: No cyanosis or clubbing, all extremities motor strength 5/5 Genitourinary: No CVA tenderness Neurologic: Alert and oriented to person only, confused, has asterixis, no focal deficits Psychiatric: Confused Lab work notable for bilirubin of 2.6, AST of 43, alkaline phosphatase of 118, ammonia of 112 CT head did not show any acute abnormalities -Hepatic encephalopathy in the setting of liver cirrhosis Likely due to poor adherence Start lactulose 4 times daily monitor mental status Continue rifaximin Check UDS Hold opioids for now. Appeared to have been started on oxycodone by palliative care for chronic pain GI consult Follow-up urinalysis and culture and blood cultures. Low suspicion for sepsis at this time Other plans as detailed above
[2020-02-29] MEDS ORDERED: DICLOFENAC SOD 1% GEL 100 GM TUBE EXT PRN (20:04)
[2020-02-29] MEDS ORDERED: ACETAMINOPHEN 325 MG TAB PO PRN (20:04)
[2020-02-29 20:33] LABS: Appearance Urine Clear (Clear); Bacteria Urine Automated Negative (Negative); Blood Urine Negative (Negative); Color Urine Dark Yellow; Epithelial Cell Urine Auto >30 /lpf (0-5); Glucose Urine UA Negative (Negative); Ketones Urine 1+ (Negative); Leukocyte Esterase Urine Trace (Negative); Nitrite Urine Positive (Negative); Protein Urine Negative (Negative); RBC Urine Automated 0-4 /hpf (0-4); Specific Gravity Urine 1.028 (1.000-1.030); Urobilinogen Urine Positive (Negative); pH Urine 5.5 (4.5-7.5)
[2020-02-29 20:45] LABS: Bilirubin Urine 1+ (Negative)
[2020-02-29] MEDS: LACTULOSE SYRUP 20 GM/30 ML UDC PO SCH ×2 (21:05→21:06)
[2020-02-29] MEDS: rifAXIMin 550 MG TABLET PO SCH (21:06)
[2020-02-29 21:09] LABS: Amphetamines+Metham, Urine Neg (Neg); Barbiturates, Urine Neg (Neg); Benzodiazepine, Urine Neg (Neg); Cocaine, Urine Neg (Neg); MDMA (Ecstacy), Urine Neg (Neg); Methadone, Urine Neg (Neg); Opiate, Urine Neg (Neg); Phencyclidine, Urine Neg (Neg)
[2020-03-01 06:00] LABS: Hematocrit (blood only) 38.2 % (42-52); Hemoglobin 13.3 g/dL (14.0-18.0); Mean Corpuscular Hgb Conc 34.8 g/dL (32-36); Mean Corpuscular Volume 97.7 fL (80-100); RDW Coefficient of Variation 14.1 % (11.5-14.5); RDW Standard Deviation 50.6 fL (36.4-46.3); Red Blood Count 3.91 M/uL (4.7-6.1); White Blood Count 3.41 K/uL (4.8-10.8)
[2020-03-01 06:08] LABS: Mean Platelet Volume 11.6 fL (7.4-10.4); Platelet Count 57 K/uL (130-400)
[2020-03-01 06:37] LABS: Albumin Level 2.8 gm/dl (3.4-5.0); BUN Creatinine Ratio 17.9 (10-20); Bilirubin Direct 0.8 mg/dl (0-0.2); Calcium 8.7 mg/dl (8.5-10.1); Creatinine Clr Calc Pharmacy 94.6 ml/min; Est GFR (African American) 110.8; Est GFR (Non-African American) 95.6; Potassium 3.5 mmol/L (3.5-5.1)
[2020-03-01 06:39] LABS: Albumin Globulin Ratio 0.9 (0.9-2); Bilirubin,Total 2.4 mg/dl (0.2-1); Globulin 3.1 gm/dl (2.5-4.0); Total Protein 5.9 gm/dl (6.4-8.2)
--- NOTE | 2020-03-01 08:34 | Gastrointestinal Consultation ---
Date of Consultation March 01, 2020 Assessment & Plan (1) Acute hepatic encephalopathy: This is a 60 y/o male with h/o ETOH cirrhosis with ascites, hepatic encephalopathy, varices, PHG, admitted with mental status changes, confusion, but pt seems improved with regular doses of lactulose. Labs are stable; he's had no GIB; ascites appears well controlled. MELD 12 (baseline 10). Overall picture c/w confusion, likely related to HE (? compliance with home meds), unclear what role recent addition of narcotics for chronic pain may have had as well. Abd is soft. - Head CT neg - CXR neg - Awaiting septic w/u with BC/UC - Continue Lactulose, TID-QID, aim for 3-4 loose BMs daily - Continue rifaximin - Continue Lasix - Continue Aldactone - Continue daily PPI - Encouraged to continuing to abstain from ETOH, illicit drugs - APAP no more than 2g daily - Low Na diet < 2 gm daily - Daily weights Supervising Physician Co-Signing Physician Notes Late entry: Patient was seen and examined on 03/01 with Mir Elam PA-C whose note reflects our findings and plan. Hep enceph. Improving alreadt with lactulose. Work up for potential triggers negative so far. History of Present Illness Reason for Consultation: hepatic encephalopathy Requesting Physician: Mai Garnica PA-C Attending Physician: Ct Healy DO History of Present Illness Andrea Harvey is a 59 year old male w hx of ETOH cirrhosis, complicated by hepatic encephalopathy, esophageal varices, ascites, portal HTN, admitted yesterday with mental status changes, confusion. On arrival, WBC 4, ammonia 112, ETOH neg, COVID neg. Head CT and CXR neg. Labs today with AST 39, ALT 26, tbili 2.4 (chronically elevated), INR 1.2, ALP 99, Na 144, K 3.5, BUN/Cr WNL, WBC 3, HGB 13.3, plt 57. BC/US pending. Appears he's been started on opioids for chronic pain and these have been held. Baseline MELD is 10, is 12 today. Pt states he feels more alert today, tolerated solid food for breakfast. Reports 2 loose brown BMs since admission. States he felt "mentally foggy" over the last few days. States he takes lactulose sometimes 2-3 x per day; has 2-3 loose stools per day. States he is complaint with rifaximin, Lasix, Aldactone, K and mag supplements. States his last drink was 6 years ago. Denies nausea, vomiting, hematemesis, melena, hematochezia, abd pain, jaundice, fever, falls, headaches, dysuria, CP, SOB, leg or abd edema. - Last EGD 08/21/19: Nonbleeding grade I EV, PHG, repeat 1 year - Last Colonoscopy: 12/16/2018, hyperplastic polyp. Recall in 3 yrs Allergies Allergy/AdvReac Type Severity Reaction Status Date / Time No Known Allergies Allergy Verified 02/29/20 17:02 Home Medications Medication Instructions Recorded Confirmed Type sildenafil (pulm.hypertension) 40 mg PO WK PRN 08/06/19 02/29/20 History [Revatio] cyanocobalamin (vitamin B-12) 100 mcg PO DAILY 30 Days #30 tab 01/31/20 02/29/20 Rx [Vitamin B-12] folic acid 1 mg PO QAM 30 Days #30 tab 01/31/20 02/29/20 Rx furosemide [Lasix] 40 mg PO DAILY 30 Days #30 tab 01/31/20 02/29/20 Rx lactulose 30 ml PO TID 30 Days #2700 ml 01/31/20 02/29/20 Rx magnesium oxide 400 mg PO QAM 30 Days #30 tab 01/31/20 02/29/20 Rx pantoprazole 40 mg PO QAM 30 Days #30 tab 01/31/20 02/29/20 Rx potassium chloride 20 meq PO DAILY 30 Days #30 tab 01/31/20 02/29/20 Rx rifaximin [Xifaxan] 550 mg PO BID 30 Days #60 tab 01/31/20 02/29/20 Rx spironolactone 100 mg PO DAILY 30 Days #30 tab 01/31/20 02/29/20 Rx thiamine HCl (vitamin B1) [Vitamin 100 mg PO QAM 30 Days #30 tab 01/31/20 02/29/20 Rx B-1] amoxicillin 500 mg PO BID 02/29/20 02/29/20 History diclofenac sodium 2 g TOPICAL BID PRN 02/29/20 02/29/20 History duloxetine 60 mg PO DAILY 02/29/20 02/29/20 History Patient History Medical History Anxiety Chronic back pain Depression Encephalopathy, hepatic Fusion of spine February 2019 Genital herpes GERD (gastroesophageal reflux disease) Hearing deficit right ear perf eardrum History of alcohol abuse History of anemia History of cirrhosis of liver D/T ALCOHOL History of colon polyps History of hepatitis C Hx of ascites Hx of encephalopathy HEAPTIC Hx of esophageal varices Hx of gynecomastia Hx of thrombocytopenia Hypertension Lethargic Medication reaction Osteoarthritis Portal hypertensive gastropathy Portal vein thrombosis Urinary tract infection history of Surgical History History of lumbar fusion History of tooth extraction all teeth removed History of total right hip arthroplasty 2018 Hx of decompression of ulnar nerve RIGHT Family History Father Diabetes Other No family history of adverse response to anesthesia Social History Smoking Status: Former smoker Cigarettes Per Day: 1ppd x 2 years; Smoking End Date: 1998; Second Hand Exposure: No; Do You Dip or Chew Tobacco: Yes; Hx Alcohol Use: Yes Alcohol type: beer Alcohol Intake Frequency Comment: history of alcoholism, quit 4+ years ago Hx Substance Use: Yes Last Used Substance: Unknown Last Used Substance Other:: 5 months ago Substance Use Type Other:: 2-3 times a month Preferred Language: [place] Communication Ability: Effective Tile Erector Required: No Beliefs That Will Affect Care: None marital status: Single Current Living Situation: Other Current Living Situation Comment: [facility] How many Children do You have: 0 Other Information That Helps Us Care for You: No Feels Safe at Home: Yes Safety Concerns: Feels Safe At This Time Assistive Devices: Glasses Review of Systems Constitutional: no fever and no weight loss Respiratory: as per Subjective / HPI Cardiovascular: as per Subjective / HPI Gastrointestinal: as per Subjective / HPI Neurologic: Denies jaundice Physical Exam Constitutional: WD/WN, vitals as above Eyes: + anicteric sclerae Respiratory: normal respiratory effort, lungs clear to auscultation Cardiovascular: RRR, no murmur, no edema Gastrointestinal (Abdomen): Inspection/Auscultation: abdomen normal to inspection and normal bowel sounds; abdomen not distended Percussion/Palpation: abdomen soft; abdomen nontender and no guarding Skin: no rashes, warm and dry Psychiatric: A+Ox3, euthymic affect + mild asterixis Results & Data ([facility]) Vital Signs (Past 12 Hours) Vital Signs Temp Pulse Pulse Pulse Resp BP Pulse Ox 03/01/20 07:27 36.5 C 69 18 151/74 H 95 03/01/20 07:17 72 03/01/20 04:09 36.6 C 78 15 128/70 94 03/01/20 00:48 82 02/29/20 22:44 36.7 C 75 18 115/71 96 02/29/20 22:21 36.9 C 87 18 127/77 96 02/29/20 22:18 90 Laboratory Results 03/01/20 03/01/20 03/01/20 Range/Units 05:48 05:48 05:48 WBC 3.41 L (4.8-10.8) K/uL RBC 3.91 L (4.7-6.1) M/uL Hgb 13.3 L (14.0-18.0) g/dL Hct 38.2 L (42-52) % MCV 97.7 (80-100) fL MCH 34.0 (25-34) pg MCHC 34.8 (32-36) g/dL RDW Std Deviation 50.6 H (36.4-46.3) fL RDW Coeff of Abhijti 14.1 (11.5-14.5) % Plt Count 57 L (130-400) K/uL MPV 11.6 H (7.4-10.4) fL Immature Gran % (Auto) % Neut % (Auto) % Lymph % (Auto) % Taney % (Auto) % Eos % (Auto) % Baso % (Auto) % Neut # (Auto) (1.4-6.5) K/uL Lymph # (Auto) (1.2-3.4) K/uL Taney # (Auto) (0.11-0.59) K/uL Eos # (Auto) (0-0.5) K/uL Baso # (Auto) (0-0.2) K/uL Immature Gran # (Auto) (0.00-0.02) K/uL PT (9.0-12.0) Seconds INR (0.9-1.1) APTT (21.0-31.0) Seconds PTT Ratio VBG pH (7.36-7.41) VBG pCO2 (38-50) mmHg VBG pO2 mmHg VBG HCO3 mmol/L VBG O2 Saturation % VBG Base Excess mEq/L Barometric Pressure mm/Hg Sodium 144 (136-145) mmol/L Potassium 3.5 (3.5-5.1) mmol/L Chloride 113 H (98-107) mmol/L Carbon Dioxide 26 (21-32) mmol/L Anion Gap 5.0 (3-11) BUN 15 (7-18) mg/dl Creatinine 0.83 (0.6-1.4) mg/dl Est Cr Clr Drug Dosing 94.6 ml/min Est GFR ( Amer) 110.8 Est GFR (Non-Af Amer) 95.6 BUN/Creatinine Ratio 17.9 (10-20) Glucose 126 H (70-99) mg/dl Calcium 8.7 (8.5-10.1) mg/dl Magnesium (1.8-2.4) mg/dl Total Bilirubin 2.4 H (0.2-1) mg/dl Direct Bilirubin 0.8 H (0-0.2) mg/dl AST 39 H (15-37) U/L ALT 26 (12-78) U/L Alkaline Phosphatase 99 (45-117) U/L Ammonia 104.0 H (11-32) umol/L Troponin I (0-0.045) ng/ml Total Protein 5.9 L (6.4-8.2) gm/dl Albumin 2.8 L (3.4-5.0) gm/dl Globulin 3.1 (2.5-4.0) gm/dl Albumin/Globulin Ratio 0.9 (0.9-2) TSH (0.300-4.500) uIu/ml Urine Color Urine Appearance (Clear) Urine pH (4.5-7.5) Ur Specific [place] (1.000-1.030) Urine Protein (Negative) Urine Glucose (UA) (Negative) Urine Ketones (Negative) Urine Blood (Negative) Urine Nitrite (Negative) Urine Bilirubin (Negative) Urine Urobilinogen (Negative) Ur Leukocyte Esterase (Negative) Urine WBC (Auto) (0-5) /hpf Urine RBC (Auto) (0-4) /hpf U Hyaline Cast (Auto) (0-5) /lpf U Epithel Cells (Auto) (0-5) /lpf Urine Bacteria (Auto) (Negative) Urine Yeast Urine Opiates Screen (Neg) Ur Methadone, Qual (Neg) Urine Barbiturates (Neg) Ur Phencyclidine (PCP) (Neg) U Amphetamin/Meth Scrn (Neg) MDMA (Ecstasy) Screen (Neg) U Benzodiazepines Scrn (Neg) Ur Cocaine Metabolite (Neg) U Marijuana (THC) Screen (Neg) Ethyl Alcohol mg/dL (0-3) mg/dl COVID-19 Eval Order SARS-CoV-2, RNA, NAAT (NEGATIVE) 02/29/20 02/29/20 02/29/20 Range/Units 20:00 20:00 16:36 WBC (4.8-10.8) K/uL RBC (4.7-6.1) M/uL Hgb (14.0-18.0) g/dL Hct (42-52) % MCV (80-100) fL MCH (25-34) pg MCHC (32-36) g/dL RDW Std Deviation (36.4-46.3) fL RDW Coeff of Abhijit (11.5-14.5) % Plt Count (130-400) K/uL MPV (7.4-10.4) fL Immature Gran % (Auto) % Neut % (Auto) % Lymph % (Auto) % [place] % (Auto) % Eos % (Auto) % Baso % (Auto) % Neut # (Auto) (1.4-6.5) K/uL Lymph # (Auto) (1.2-3.4) K/uL Taney # (Auto) (0.11-0.59) K/uL Eos # (Auto) (0-0.5) K/uL Baso # (Auto) (0-0.2) K/uL Immature Gran # (Auto) (0.00-0.02) K/uL PT (9.0-12.0) Seconds INR (0.9-1.1) APTT (21.0-31.0) Seconds PTT Ratio VBG pH 7.44 H (7.36-7.41) VBG pCO2 36 L (38-50) mmHg VBG pO2 40 mmHg VBG HCO3 24 mmol/L VBG O2 Saturation 73.1 % VBG Base Excess 0.2 mEq/L Barometric Pressure 735.2 mm/Hg Sodium (136-145) mmol/L Potassium (3.5-5.1) mmol/L Chloride (98-107) mmol/L Carbon Dioxide (21-32) mmol/L Anion Gap (3-11) BUN (7-18) mg/dl Creatinine (0.6-1.4) mg/dl Est Cr Clr Drug Dosing ml/min Est GFR ( Amer) Est GFR (Non-Af Amer) BUN/Creatinine Ratio (10-20) Glucose (70-99) mg/dl Calcium (8.5-10.1) mg/dl Magnesium (1.8-2.4) mg/dl Total Bilirubin (0.2-1) mg/dl Direct Bilirubin (0-0.2) mg/dl AST (15-37) U/L ALT (12-78) U/L Alkaline Phosphatase (45-117) U/L Ammonia (11-32) umol/L Troponin I (0-0.045) ng/ml Total Protein (6.4-8.2) gm/dl Albumin (3.4-5.0) gm/dl Globulin (2.5-4.0) gm/dl Albumin/Globulin Ratio (0.9-2) TSH (0.300-4.500) uIu/ml Urine Color Dark Yellow Urine Appearance Clear (Clear) Urine pH 5.5 (4.5-7.5) Ur Specific [place] 1.028 (1.000-1.030) Urine Protein Negative (Negative) Urine Glucose (UA) Negative (Negative) Urine Ketones 1+ H (Negative) Urine Blood Negative (Negative) Urine Nitrite Positive A (Negative) Urine Bilirubin 1+ H (Negative) Urine Urobilinogen Positive H (Negative) Ur Leukocyte Esterase Trace H (Negative) Urine WBC (Auto) 1-5 (0-5) /hpf Urine RBC (Auto) 0-4 (0-4) /hpf U Hyaline Cast (Auto) 5-10 H (0-5) /lpf U Epithel Cells (Auto) >30 H (0-5) /lpf Urine Bacteria (Auto) Negative (Negative) Urine Yeast Not Reportable Urine Opiates Screen Neg (Neg) Ur Methadone, Qual Neg (Neg) Urine Barbiturates Neg (Neg) Ur Phencyclidine (PCP) Neg (Neg) U Amphetamin/Meth Scrn Neg (Neg) MDMA (Ecstasy) Screen Neg (Neg) U Benzodiazepines Scrn Neg (Neg) Ur Cocaine Metabolite Neg (Neg) U Marijuana (THC) Screen Neg (Neg) Ethyl Alcohol mg/dL (0-3) mg/dl COVID-19 Eval Order SARS-CoV-2, RNA, NAAT (NEGATIVE) 02/29/20 02/29/20 02/29/20 Range/Units 16:27 16:20 16:20 WBC (4.8-10.8) K/uL RBC (4.7-6.1) M/uL Hgb (14.0-18.0) g/dL Hct (42-52) % MCV (80-100) fL MCH (25-34) pg MCHC (32-36) g/dL RDW Std Deviation (36.4-46.3) fL RDW Coeff of Abhijit (11.5-14.5) % Plt Count (130-400) K/uL MPV (7.4-10.4) fL Immature Gran % (Auto) % Neut % (Auto) % Lymph % (Auto) % [place] % (Auto) % Eos % (Auto) % Baso % (Auto) % Neut # (Auto) (1.4-6.5) K/uL Lymph # (Auto) (1.2-3.4) K/uL T[place] # (Auto) (0.11-0.59) K/uL Eos # (Auto) (0-0.5) K/uL Baso # (Auto) (0-0.2) K/uL Immature Gran # (Auto) (0.00-0.02) K/uL PT (9.0-12.0) Seconds INR (0.9-1.1) APTT (21.0-31.0) Seconds PTT Ratio VBG pH (7.36-7.41) VBG pCO2 (38-50) mmHg VBG pO2 mmHg VBG HCO3 mmol/L VBG O2 Saturation % VBG Base Excess mEq/L Barometric Pressure mm/Hg Sodium (136-145) mmol/L Potassium (3.5-5.1) mmol/L Chloride (98-107) mmol/L Carbon Dioxide (21-32) mmol/L Anion Gap (3-11) BUN (7-18) mg/dl Creatinine (0.6-1.4) mg/dl Est Cr Clr Drug Dosing ml/min Est GFR ( Amer) Est GFR (Non-Af Amer) BUN/Creatinine Ratio (10-20) Glucose (70-99) mg/dl Calcium (8.5-10.1) mg/dl Magnesium (1.8-2.4) mg/dl Total Bilirubin (0.2-1) mg/dl Direct Bilirubin (0-0.2) mg/dl AST (15-37) U/L ALT (12-78) U/L Alkaline Phosphatase (45-117) U/L Ammonia (11-32) umol/L Troponin I (0-0.045) ng/ml Total Protein (6.4-8.2) gm/dl Albumin (3.4-5.0) gm/dl Globulin (2.5-4.0) gm/dl Albumin/Globulin Ratio (0.9-2) TSH (0.300-4.500) uIu/ml Urine Color Urine Appearance (Clear) Urine pH (4.5-7.5) Ur Specific [place] (1.000-1.030) Urine Protein (Negative) Urine Glucose (UA) (Negative) Urine Ketones (Negative) Urine Blood (Negative) Urine Nitrite (Negative) Urine Bilirubin (Negative) Urine Urobilinogen (Negative) Ur Leukocyte Esterase (Negative) Urine WBC (Auto) (0-5) /hpf Urine RBC (Auto) (0-4) /hpf U Hyaline Cast (Auto) (0-5) /lpf U Epithel Cells (Auto) (0-5) /lpf Urine Bacteria (Auto) (Negative) Urine Yeast Urine Opiates Screen (Neg) Ur Methadone, Qual (Neg) Urine Barbiturates (Neg) Ur Phencyclidine (PCP) (Neg) U Amphetamin/Meth Scrn (Neg) MDMA (Ecstasy) Screen (Neg) U Benzodiazepines Scrn (Neg) Ur Cocaine Metabolite (Neg) U Marijuana (THC) Screen (Neg) Ethyl Alcohol mg/dL < 3.0 (0-3) mg/dl COVID-19 Eval [email or web address] SARS-CoV-2, RNA, NAAT NEGATIVE (NEGATIVE) 02/29/20 02/29/20 02/29/20 Range/Units 15:41 15:41 15:41 WBC (4.8-10.8) K/uL RBC (4.7-6.1) M/uL Hgb (14.0-18.0) g/dL Hct (42-52) % MCV (80-100) fL MCH (25-34) pg MCHC (32-36) g/dL RDW Std Deviation (36.4-46.3) fL RDW Coeff of Abhijit (11.5-14.5) % Plt Count (130-400) K/uL MPV (7.4-10.4) fL Immature Gran % (Auto) % Neut % (Auto) % Lymph % (Auto) % [place] % (Auto) % Eos % (Auto) % Baso % (Auto) % Neut # (Auto) (1.4-6.5) K/uL Lymph # (Auto) (1.2-3.4) K/uL Taney # (Auto) (0.11-0.59) K/uL Eos # (Auto) (0-0.5) K/uL Baso # (Auto) (0-0.2) K/uL Immature Gran # (Auto) (0.00-0.02) K/uL PT 12.8 H (9.0-12.0) Seconds INR 1.2 H (0.9-1.1) APTT 24.7 (21.0-31.0) Seconds PTT Ratio 0.9 VBG pH (7.36-7.41) VBG pCO2 (38-50) mmHg VBG pO2 mmHg VBG HCO3 mmol/L VBG O2 Saturation % VBG Base Excess mEq/L Barometric Pressure mm/Hg Sodium 142 (136-145) mmol/L Potassium 3.7 (3.5-5.1) mmol/L Chloride 108 H (98-107) mmol/L Carbon Dioxide 26 (21-32) mmol/L Anion Gap 8.0 (3-11) BUN 15 (7-18) mg/dl Creatinine 1.06 (0.6-1.4) mg/dl Est Cr Clr Drug Dosing 81.5 ml/min Est GFR ( Amer) 88.0 Est GFR (Non-Af Amer) 75.9 BUN/Creatinine Ratio 13.8 (10-20) Glucose 90 (70-99) mg/dl Calcium 9.4 (8.5-10.1) mg/dl Magnesium 2.0 (1.8-2.4) mg/dl Total Bilirubin 2.6 H (0.2-1) mg/dl Direct Bilirubin (0-0.2) mg/dl AST 43 H (15-37) U/L ALT 32 (12-78) U/L Alkaline Phosphatase 118 H (45-117) U/L Ammonia 112.6 H (11-32) umol/L Troponin I < 0.015 (0-0.045) ng/ml Total Protein 7.0 (6.4-8.2) gm/dl Albumin 3.2 L (3.4-5.0) gm/dl Globulin 3.8 (2.5-4.0) gm/dl Albumin/Globulin Ratio 0.9 (0.9-2) TSH 1.230 (0.300-4.500) uIu/ml Urine Color Urine Appearance (Clear) Urine pH (4.5-7.5) Ur Specific [place] (1.000-1.030) Urine Protein (Negative) Urine Glucose (UA) (Negative) Urine Ketones (Negative) Urine Blood (Negative) Urine Nitrite (Negative) Urine Bilirubin (Negative) Urine Urobilinogen (Negative) Ur Leukocyte Esterase (Negative) Urine WBC (Auto) (0-5) /hpf Urine RBC (Auto) (0-4) /hpf U Hyaline Cast (Auto) (0-5) /lpf U Epithel Cells (Auto) (0-5) /lpf Urine Bacteria (Auto) (Negative) Urine Yeast Urine Opiates Screen (Neg) Ur Methadone, Qual (Neg) Urine Barbiturates (Neg) Ur Phencyclidine (PCP) (Neg) U Amphetamin/Meth Scrn (Neg) MDMA (Ecstasy) Screen (Neg) U Benzodiazepines Scrn (Neg) Ur Cocaine Metabolite (Neg) U Marijuana (THC) Screen (Neg) Ethyl Alcohol mg/dL (0-3) mg/dl COVID-19 Eval Order SARS-CoV-2, RNA, NAAT (NEGATIVE) 02/29/20 Range/Units 15:41 WBC 4.69 L (4.8-10.8) K/uL RBC 4.46 L (4.7-6.1) M/uL Hgb 15.4 (14.0-18.0) g/dL Hct 43.4 (42-52) % MCV 97.3 (80-100) fL MCH 34.5 H (25-34) pg MCHC 35.5 (32-36) g/dL RDW Std Deviation 49.7 H (36.4-46.3) fL RDW Coeff of Abhijit 14.0 (11.5-14.5) % Plt Count 61 L (130-400) K/uL MPV 11.2 H (7.4-10.4) fL Immature Gran % (Auto) 0.0 % Neut % (Auto) 66.1 % Lymph % (Auto) 18.3 % [place] % (Auto) 12.6 % Eos % (Auto) 2.1 % Baso % (Auto) 0.9 % Neut # (Auto) 3.10 (1.4-6.5) K/uL Lymph # (Auto) 0.86 L (1.2-3.4) K/uL [place] # (Auto) 0.59 (0.11-0.59) K/uL Eos # (Auto) 0.10 (0-0.5) K/uL Baso # (Auto) 0.04 (0-0.2) K/uL Immature Gran # (Auto) 0.00 (0.00-0.02) K/uL PT (9.0-12.0) Seconds INR (0.9-1.1) APTT (21.0-31.0) Seconds PTT Ratio VBG pH (7.36-7.41) VBG pCO2 (38-50) mmHg VBG pO2 mmHg VBG HCO3 mmol/L VBG O2 Saturation % VBG Base Excess mEq/L Barometric Pressure mm/Hg Sodium (136-145) mmol/L Potassium (3.5-5.1) mmol/L Chloride (98-107) mmol/L Carbon Dioxide (21-32) mmol/L Anion Gap (3-11) BUN (7-18) mg/dl Creatinine (0.6-1.4) mg/dl Est Cr Clr Drug Dosing ml/min Est GFR ( Amer) Est GFR (Non-Af Amer) BUN/Creatinine Ratio (10-20) Glucose (70-99) mg/dl Calcium (8.5-10.1) mg/dl Magnesium (1.8-2.4) mg/dl Total Bilirubin (0.2-1) mg/dl Direct Bilirubin (0-0.2) mg/dl AST (15-37) U/L ALT (12-78) U/L Alkaline Phosphatase (45-117) U/L Ammonia (11-32) umol/L Troponin I (0-0.045) ng/ml Total Protein (6.4-8.2) gm/dl Albumin (3.4-5.0) gm/dl Globulin (2.5-4.0) gm/dl Albumin/Globulin Ratio (0.9-2) TSH (0.300-4.500) uIu/ml Urine Color Urine Appearance (Clear) Urine pH (4.5-7.5) Ur Specific [place] (1.000-1.030) Urine Protein (Negative) Urine Glucose (UA) (Negative) Urine Ketones (Negative) Urine Blood (Negative) Urine Nitrite (Negative) Urine Bilirubin (Negative) Urine Urobilinogen (Negative) Ur Leukocyte Esterase (Negative) Urine WBC (Auto) (0-5) /hpf Urine RBC (Auto) (0-4) /hpf U Hyaline Cast (Auto) (0-5) /lpf U Epithel Cells (Auto) (0-5) /lpf Urine Bacteria (Auto) (Negative) Urine Yeast Urine Opiates Screen (Neg) Ur Methadone, Qual (Neg) Urine Barbiturates (Neg) Ur Phencyclidine (PCP) (Neg) U Amphetamin/Meth Scrn (Neg) MDMA (Ecstasy) Screen (Neg) U Benzodiazepines Scrn (Neg) Ur Cocaine Metabolite (Neg) U Marijuana (THC) Screen (Neg) Ethyl Alcohol mg/dL (0-3) mg/dl COVID-19 Eval Order SARS-CoV-2, RNA, NAAT (NEGATIVE) Diagnostic Findings CT head: IMPRESSION: There is no hemorrhage, mass effect, or evidence of acute territorial ischemia by CT criteria. CXR: IMPRESSION: No active disease in the chest.
[2020-03-01] MEDS: MAGNESIUM OXIDE 400 MG TAB PO SCH (09:17)
[2020-03-01] MEDS: FUROSEMIDE 40 MG TAB PO SCH (09:17)
[2020-03-01] MEDS: SPIRONOLACTONE 100 MG TAB PO SCH (09:17)
[2020-03-01] MEDS: FOLIC ACID 1 MG TAB PO SCH (09:17)
[2020-03-01] MEDS: DULoxetine HCL 60 MG CAP PO SCH ×3 (09:17→20:02)
[2020-03-01] MEDS: THIAMINE HCL 100 MG TAB PO SCH (09:17)
[2020-03-01] MEDS: CYANOCOBALAMIN (VITAMIN B-12) 100 MCG TABLET PO SCH (09:17)
[2020-03-01] MEDS: POTASSIUM CHLORIDE CRTAB 20 MEQ TABCR PO SCH (09:17)
[2020-03-01] MEDS: PANTOprazole 40 MG TAB PO SCH ×2 (09:18→09:28)
[2020-03-01] MEDS: rifAXIMin 550 MG TABLET PO SCH ×2 (09:18→20:01)
[2020-03-01] MEDS: LACTULOSE SYRUP 20 GM/30 ML UDC PO SCH ×2 (09:18→13:13)
--- NOTE | 2020-03-01 11:17 | Electrocardiogram Report ---
Test Reason : Blood Pressure : / mmHG Vent. Rate : 103 BPM Atrial Rate : 103 BPM P-R Int : 170 ms QRS Dur : 096 ms QT Int : 372 ms P-R-T Axes : 068 069 053 degrees QTc Int : 487 ms Sinus tachycardia Low voltage QRS Abnormal ECG When compared with ECG of 30-JAN-2020 09:40, No significant change was found Confirmed by Rey Edwards ([id number] on 03/01/2020 11:16:56 AM Referred By: ED Confirmed By:Jac Edwards
--- NOTE | 2020-03-01 14:26 | Hospitalist Progress Note ---
Date of Service March 01, 2020 Assessment & Plan (1) Acute hepatic encephalopathy: Urine tox is negative. Elevated ammonia level. Concerns for hepatic encephalopathy. Patient is currently oriented x 3 and mentating very clearly this afternoon. He reports compliance with his lactulose, rifaximin and diuretics at home. No evidence or report of infectious symptoms. No abdominal pain or fever and denies any increase in swelling of his abdomen or weight gain recently. Per GI cont with current therapy and observe. (2) Chronic back pain: Intermittent narcotic use with oxycodone that is not consistently written daily use per PDMP data. Removed oxycodone from home med list so we don't become confused. This is given to him intermittently. The patient was recently seen by Dr. Bauer (ortho spine surgeon) n mid-Feb. There is some concern for hardware failure with plan to pursue additional imaging with Lspine MRI wo contrast and CT scan wo contrast as the patient appears to be quite limited by this. Will continue to pursue this after discharge. For now would recommend against any narcotics. Patient may benefit from a pain management consultation. (3) Alcoholic cirrhosis: Patient reports abstinence from alcohol for 6 years. Possible decompensation with HE. Appreciate GI recs. cont plan as above. (4) Esophageal varices: 2/2 chronic portal hypertension. No evidence of GI bleeding. (5) Depression with anxiety: chronic, stable. Cont duloxetine per home regimen. (6) Tobacco abuse: Cont to encourage to stay quit. (7) DVT prophylaxis: SCDs/ambulation-chemoprophy relatively contraindicated in setting of thrombocytopenia. Full Code Dispo-cont hospitalization. Remove telemetry monitoring. Ct Healy DO [facility] Hospitalist Admission and Anticipated Discharge Date Admission Date: February 29, 2020 Subjective cc: confusion, admitted with concerns of hepatic encephalopathy -patient is currently oriented -he denies abdominal pain -he is tolerating PO -denies fevers or chills -has had 3 BMs at least already (confirmed by nurse)-further lactulose held for today Review of Systems Review of Systems: All systems reviewed & are unremarkable except as noted in Subjective Physical Exam Physical Exam: CONSTITUTIONAL: WNWD, vitals as above, generally well- appearing EYES: normal conjunctivae, no scleral icterus ENT: external ear and nose normal, MMM RESPIRATORY: clear to auscultation bilaterally, no crackles, rales or wheezes, normal respiratory effort CARDIOVASCULAR: regular rate and rhythm, S1 and 2 heard without murmurs, gallops or rubs, no JVD, no peripheral edema GASTROINTESTINAL: soft, nontender, nondistended, slightly protuberant, no fluid wave MUSCULOSKELETAL: strength 5/5 throughout, head is normocephalic and atraumatic, ambulatory SKIN: warm and dry NEUROLOGIC: CN 2-12 grossly intact, no sensory deficit, normal cognition, normal speech, no tremor. No gross focal deficits. PSYCHIATRIC: alert cooperative and oriented to person, place and time. Results & Data Results & Data ([facility]) Vital Signs (Past 12 Hours) Vital Signs Temp Pulse Pulse Resp BP Pulse Ox 03/01/20 11:32 36.8 C 76 18 160/72 H 95 03/01/20 07:27 36.5 C 69 18 151/74 H 95 03/01/20 07:17 72 03/01/20 04:09 36.6 C 78 15 128/70 94 Laboratory Results Short CBC 02/29/20 03/01/20 Range/Units 15:41 05:48 WBC 4.69 L 3.41 L (4.8-10.8) K/uL Hgb 15.4 13.3 L (14.0-18.0) g/dL Hct 43.4 38.2 L (42-52) % Plt Count 61 L 57 L (130-400) K/uL BMP 02/29/20 03/01/20 15:41 05:48 Sodium 142 144 Potassium 3.7 3.5 Chloride 108 H 113 H Carbon Dioxide 26 26 BUN 15 15 Creatinine 1.06 0.83 Glucose 90 126 H Calcium 9.4 8.7 Cardiac Enzymes 02/29/20 Range/Units 15:41 Troponin I < 0.015 (0-0.045) ng/ml Liver Function 02/29/20 03/01/20 Range/Units 15:41 05:48 Total Bilirubin 2.6 H 2.4 H (0.2-1) mg/dl Direct Bilirubin 0.8 H (0-0.2) mg/dl AST 43 H 39 H (15-37) U/L ALT 32 26 (12-78) U/L Alkaline Phosphatase 118 H 99 (45-117) U/L Albumin 3.2 L 2.8 L (3.4-5.0) gm/dl Urine 02/29/20 Range/Units 20:00 Urine Color Dark Yellow Urine Appearance Clear (Clear) Urine pH 5.5 (4.5-7.5) Ur Specific [place] 1.028 (1.000-1.030) Urine Protein Negative (Negative) Urine Glucose (UA) Negative (Negative) Medications Administered Current Inpatient Medications Acetaminophen (Acetaminophen 325 Mg Tab) 650 mg PO Q4H PRN PRN Reason: Pain or Fever Stop: 03/30/20 20:03 Last Admin: 03/01/20 09:20 Dose: 650 mg Documented by: Cyanocobalamin (Cyanocobalamin (Vitamin B-12) 100 Mcg Tablet) 100 mcg PO DAILY [facility] Stop: 03/31/20 08:59 Last Admin: 03/01/20 09:17 Dose: 100 mcg Documented by: Diclofenac Sodium (Diclofenac Sod 1% Gel 100 Gm Tube) 2 gm EXT BID PRN PRN Reason: Pain Stop: 03/30/20 20:03 Duloxetine HCl (Duloxetine Hcl 60 Mg Cap) 60 mg PO HS [facility] Stop: 03/31/20 20:59 Folic Acid (Folic Acid 1 Mg Tab) 1 mg PO QAM [facility] Stop: 03/31/20 08:59 Last Admin: 03/01/20 09:17 Dose: 1 mg Documented by: Furosemide (Furosemide 40 Mg Tab) 40 mg PO DAILY [facility] Stop: 03/31/20 08:59 Last Admin: 03/01/20 09:17 Dose: 40 mg Documented by: Lactulose (Lactulose Syrup 20 Gm/30 Ml Udc) 20 gm PO QID [facility] Stop: 03/30/20 20:03 Last Admin: 03/01/20 13:13 Dose: 20 gm Documented by: Magnesium Oxide (Magnesium Oxide 400 Mg Tab) 400 mg PO QAM [facility] Stop: 03/31/20 08:59 Last Admin: 03/01/20 09:17 Dose: 400 mg Documented by: Pantoprazole Sodium (Pantoprazole 40 Mg Tab) 40 mg PO QAM [facility] Stop: 03/31/20 08:59 Last Admin: 03/01/20 09:28 Dose: Not Given Documented by: Potassium Chloride (Potassium Chloride Crtab 20 Meq Tabcr) 20 meq PO DAILY [facility] Stop: 03/31/20 08:59 Last Admin: 03/01/20 09:17 Dose: 20 meq Documented by: Rifaximin (Rifaximin 550 Mg Tablet) 550 mg PO BID [facility] Stop: 03/30/20 20:59 Last Admin: 03/01/20 09:18 Dose: 550 mg Documented by: Spironolactone (Spironolactone 100 Mg Tab) 100 mg PO DAILY [facility] Stop: 03/31/20 08:59 Last Admin: 03/01/20 09:17 Dose: 100 mg Documented by: Thiamine HCl (Thiamine Hcl 100 Mg Tab) 100 mg PO QAM [facility] Stop: 03/31/20 08:59 Last Admin: 03/01/20 09:17 Dose: 100 mg Documented by:
[2020-03-01] MEDS ORDERED: LACTULOSE SYRUP 20 GM/30 ML UDC PO PRN (16:08)
[2020-03-01] MEDS ORDERED: ONDANSETRON INJ 2 MG/ML 2 ML VIAL IV STA (23:14)
[2020-03-02 06:17] LABS: Albumin Globulin Ratio 0.9 (0.9-2); Albumin Level 2.6 gm/dl (3.4-5.0); BUN Creatinine Ratio 20.1 (10-20); Bilirubin,Total 1.5 mg/dl (0.2-1); Calcium 8.6 mg/dl (8.5-10.1); Creatinine Clr Calc Pharmacy 82.7 ml/min; Est GFR (African American) 100.4; Est GFR (Non-African American) 86.7; Potassium 4.4 mmol/L (3.5-5.1); Total Protein 5.6 gm/dl (6.4-8.2)
[2020-03-02 06:21] LABS: Hematocrit (blood only) 35.9 % (42-52); Hemoglobin 12.3 g/dL (14.0-18.0); Mean Corpuscular Hemoglobin 33.6 pg (25-34); Mean Corpuscular Hgb Conc 34.3 g/dL (32-36); Mean Corpuscular Volume 98.1 fL (80-100); Mean Platelet Volume 11.7 fL (7.4-10.4); Platelet Count 48 K/uL (130-400); RDW Coefficient of Variation 13.8 % (11.5-14.5); RDW Standard Deviation 49.2 fL (36.4-46.3); Red Blood Count 3.66 M/uL (4.7-6.1); White Blood Count 3.34 K/uL (4.8-10.8)
[2020-03-02] MEDS ORDERED: LACTULOSE SYRUP 30 GM/45 ML UDP PO STA (06:47)
[2020-03-02] MEDS: FUROSEMIDE 40 MG TAB PO SCH (08:14)
[2020-03-02] MEDS: POTASSIUM CHLORIDE CRTAB 20 MEQ TABCR PO SCH (08:15)
[2020-03-02] MEDS: THIAMINE HCL 100 MG TAB PO SCH (08:15)
[2020-03-02] MEDS: MAGNESIUM OXIDE 400 MG TAB PO SCH (08:15)
[2020-03-02] MEDS: rifAXIMin 550 MG TABLET PO SCH ×2 (08:15→20:18)
[2020-03-02] MEDS: FOLIC ACID 1 MG TAB PO SCH (08:16)
[2020-03-02] MEDS: SPIRONOLACTONE 100 MG TAB PO SCH (08:16)
[2020-03-02] MEDS: CYANOCOBALAMIN (VITAMIN B-12) 100 MCG TABLET PO SCH (08:16)
--- NOTE | 2020-03-02 10:55 | Gastroenterology Progress Note ---
Date of Service March 02, 2020 Assessment & Plan (1) Acute hepatic encephalopathy: This is a 60 y/o male with h/o ETOH cirrhosis with ascites, hepatic encephalopathy, varices, PHG, admitted with mental status changes, confusion, was improved with regular doses of lactulose, however overnight has become more confused; BMs have slowed. Suspect on the basis of missed doses of lactulose, and UC + for staph which can also contribute to AMS. VS stable and he's not hypoxic; abd is soft, don't suspect GIB or acute neuro event. Labs are overall stable including electrolytes; ammonia bumped. - Head CT neg - CXR neg - UC as above, awaiting final BC - Give another dose of lactulose now; would use 30 mg, and continue Lactulose 30 mg TID, aim for 3-4 loose BMs daily; order placed - ABX for UTI as per primary team - Daily LFTs, INR, CBC, BMP - Would hold meals until confusion improves - Continue rifaximin - Continue Lasix - Continue Aldactone - Continue daily PPI - Encouraged to continuing to abstain from ETOH, illicit drugs - APAP no more than 2g daily - Low Na diet < 2 gm daily - Daily weights Admission and Anticipated Discharge Date Admission Date: February 29, 2020 Supervising Physician Co-Signing Physician Notes Late entry: Patient was seen and examined on 03/02 with Mir Elam PA-C whose note reflects our findings and plan. Hep enceph. Was improving with lactulose but again confused in Am. Needs more lactulose. Only 2 BM yesterday. Work up for potential triggers in process. R/o infection. Subjective Pt seen and examined in f/u of encephalopathy. Overnight has become more confused, this AM not oriented stating he doesn't feel well but no specific abd pain, vomiting, CP, SOB, headache, fever, leg swelling. Only had 2 doses of lactulose yesterday; no documented BMs overnight, and this AM had a stat dose of lactulose 20 mg given around 7 AM and just now had a brown solid BM. UC + for staph species and was started on ceftriaxone. BC pending, preliminary neg. Labs overall stable, save for ammonia 100->200. Review of Systems Review of Systems: All systems reviewed & are unremarkable except as noted in HPI & below Physical Exam 2 Constitutional: WD/WN, vitals as above Eyes: + anicteric sclerae Respiratory: normal respiratory effort; no respiratory distress Auscultation: lungs clear to auscultation bilaterally Cardiovascular: RRR, no murmur, no edema Gastrointestinal (Abdomen): Inspection/Auscultation: abdomen normal to inspection and normal bowel sounds; abdomen not distended Percussi on/Palpation: abdomen soft; abdomen nontender no significant ascites Skin: no rashes, warm and dry Neurologic: Brief neuro exam with symmetric facies, no droop, control and recovery special tactics strength 5/5 bilat; without stretched arms there is no drift but + moderate asterixis; speech slightly garbled Psychiatric: Orientation: + not oriented x 3 Results & Data ([facility]) Vital Signs (Past 12 Hours) Vital Signs Temp Pulse Pulse Resp BP Pulse Ox 03/02/20 07:41 36.5 C 89 18 117/60 95 03/02/20 07:16 67 03/01/20 23:33 36.8 C 94 H 20 129/71 94 03/01/20 23:00 91 H Laboratory Results 03/02/20 03/02/20 03/02/20 Range/Units 05:30 05:30 05:30 WBC (4.8-10.8) K/uL RBC (4.7-6.1) M/uL Hgb (14.0-18.0) g/dL Hct (42-52) % MCV (80-100) fL MCH (25-34) pg MCHC (32-36) g/dL RDW Std Deviation (36.4-46.3) fL RDW Coeff of Abhijit (11.5-14.5) % Plt Count (130-400) K/uL MPV (7.4-10.4) fL Absolute Nucleated RBC (0-0) K/uL Nucleated RBC % (auto) % ESR 4 (0-14) mm/hr Sodium 142 (136-145) mmol/L Potassium 4.4 D (3.5-5.1) mmol/L Chloride 112 H (98-107) mmol/L Carbon Dioxide 28 (21-32) mmol/L Anion Gap 2.0 L (3-11) BUN 19 H (7-18) mg/dl Creatinine 0.95 (0.6-1.4) mg/dl Est Cr Clr Drug Dosing 82.7 ml/min Est GFR ( Amer) 100.4 Est GFR (Non-Af Amer) 86.7 BUN/Creatinine Ratio 20.1 H (10-20) Glucose 97 (70-99) mg/dl Calcium 8.6 (8.5-10.1) mg/dl Total Bilirubin 1.5 H (0.2-1) mg/dl AST 32 (15-37) U/L ALT 25 (12-78) U/L Alkaline Phosphatase 103 (45-117) U/L Ammonia 205.0 H (11-32) umol/L Total Creatine Kinase 138 (39-308) U/L Total Protein 5.6 L (6.4-8.2) gm/dl Albumin 2.6 L (3.4-5.0) gm/dl Globulin 3.0 (2.5-4.0) gm/dl Albumin/Globulin Ratio 0.9 (0.9-2) 03/02/20 Range/Units 05:30 WBC 3.34 L (4.8-10.8) K/uL RBC 3.66 L (4.7-6.1) M/uL Hgb 12.3 L (14.0-18.0) g/dL Hct 35.9 L (42-52) % MCV 98.1 (80-100) fL MCH 33.6 (25-34) pg MCHC 34.3 (32-36) g/dL RDW Std Deviation 49.2 H (36.4-46.3) fL RDW Coeff of Abhijit 13.8 (11.5-14.5) % Plt Count 48 L (130-400) K/uL MPV 11.7 H (7.4-10.4) fL Absolute Nucleated RBC 0.00 (0-0) K/uL Nucleated RBC % (auto) 0.0 % ESR (0-14) mm/hr Sodium (136-145) mmol/L Potassium (3.5-5.1) mmol/L Chloride (98-107) mmol/L Carbon Dioxide (21-32) mmol/L Anion Gap (3-11) BUN (7-18) mg/dl Creatinine (0.6-1.4) mg/dl Est Cr Clr Drug Dosing ml/min Est GFR ( Amer) Est GFR (Non-Af Amer) BUN/Creatinine Ratio (10-20) Glucose (70-99) mg/dl Calcium (8.5-10.1) mg/dl Total Bilirubin (0.2-1) mg/dl AST (15-37) U/L ALT (12-78) U/L Alkaline Phosphatase (45-117) U/L Ammonia (11-32) umol/L Total Creatine Kinase (39-308) U/L Total Protein (6.4-8.2) gm/dl Albumin (3.4-5.0) gm/dl Globulin (2.5-4.0) gm/dl Albumin/Globulin Ratio (0.9-2)
[2020-03-02] MEDS: cefTRIAXone SODIUM 2,000 MG in DEXTROSE 5% 50 ML IV SCH (11:41)
[2020-03-02 11:56] LABS: INR 1.2 (0.9-1.1)
[2020-03-02] MEDS: LACTULOSE SYRUP 30 GM/45 ML UDP PO SCH ×2 (14:46→20:18)
--- NOTE | 2020-03-02 15:40 | Hospitalist Progress Note ---
Date of Service March 02, 2020 Assessment & Plan (1) Acute hepatic encephalopathy: Urine tox is negative. Elevated ammonia level but patient remains oriented. Some intermittent confusion reported by nurses. Concerns for hepatic encephalopathy. Patient is again oriented x 3 and mentating very clearly this afternoon. He remains compliant with his lactulose, rifaximin and diuretics. UTI present-increased urinary urgency reported and now has staph in urine similar to last year. Started on ceftriaxone pending further sensitivities. Cont current management and monitor. (2) Acute cystitis without hematuria: Pansensitive coag negative staph twice in the past 2 years on prior urine cultures. He is currently growing staph species. Continue with Rocephin pending further sensitivities. (3) Chronic back pain: Intermittent narcotic use with oxycodone that is not consistently written daily for use per PDMP data. Removed oxycodone from home med list so we don't become confused. This is given to him very intermittently. The patient was recently seen by Dr. Bauer (ortho spine surgeon) in mid-Feb. There is some concern for hardware failure with plan to pursue additional imaging with L-spine MRI wo contrast and CT scan wo contrast as the patient appears to be quite limited by this. He was evaluated by therapy this admission and cleared to return home. Would continue to pursue this after discharge and follow-up with Dr. Bauer per the initial plan. For now would recommend against any narcotics with intermittent confusion and h/o substance abuse. 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 Patient may benefit from a pain management consultation. (4) Alcoholic cirrhosis: Patient reports abstinence from alcohol for 6 years. Possible de compensation with HE, although clinically he is improved. Ammonia levels remain high. Appreciate GI recs. cont plan as above. (5) Esophageal varices: 2/2 chronic portal hypertension. No evidence of GI bleeding. (6) Depression with anxiety: chronic, stable. Cont duloxetine per home regimen. (7) Tobacco abuse: Cont to encourage to stay quit. Declines nicotine replacement today. (8) Thrombocytopenia: chronic 2/2 cirrhosis. (9) DVT prophylaxis: SCDs/ambulation-chemoprophy relatively contraindicated in setting of thrombocytopenia. Full Code Dispo-cont hospitalization. Remove telemetry monitoring. Ct Healy DO [facility] Hospitalist Admission and Anticipated Discharge Date Admission Date: February 29, 2020 Subjective cc: encephalopathy Patient is oriented and feeling better per his report Urine culture positive for staph and started on abx patient reports urinary urgency recently but denies dysuria, or increased urinary frequency or pelvic pain he is wanting snuff and denying nicotine replacement. Review of Systems Review of Systems: All systems reviewed & are unremarkable except as noted in Subjective Physical Exam Physical Exam: CONSTITUTIONAL: WNWD, vitals as above, generally well- appearing EYES: normal conjunctivae, no scleral icterus ENT: external ear and nose normal, MMM RESPIRATORY: clear to auscultation bilaterally, no crackles, rales or wheezes, normal respiratory effort CARDIOVASCULAR: regular rate and rhythm, S1 and 2 heard without murmurs, gallops or rubs, no JVD, no peripheral edema GASTROINTESTINAL: soft, nontender, nondistended, slightly protuberant, no fluid wave MUSCULOSKELETAL: strength 5/5 throughout, head is normocephalic and atraumatic, ambulatory SKIN: warm and dry NEUROLOGIC: CN 2-12 grossly intact, no sensory deficit, normal cognition, normal speech, no tremor. No gross focal deficits. PSYCHIATRIC: alert cooperative and oriented to person, place and time. Results & Data Results & Data ([facility]) Vital Signs (Past 12 Hours) Vital Signs Temp Pulse Pulse Resp BP Pulse Ox 03/02/20 15:07 36.5 C 65 18 146/68 H 99 03/02/20 11:43 36.5 C 71 18 119/59 L 96 03/02/20 07:41 36.5 C 89 18 117/60 95 03/02/20 07:16 67 Laboratory Results Short CBC 03/02/20 Range/Units 05:30 WBC 3.34 L (4.8-10.8) K/uL Hgb 12.3 L (14.0-18.0) g/dL Hct 35.9 L (42-52) % Plt Count 48 L (130-400) K/uL BMP 03/02/20 05:30 Sodium 142 Potassium 4.4 D Chloride 112 H Carbon Dioxide 28 BUN 19 H Creatinine 0.95 Glucose 97 Calcium 8.6 Cardiac Enzymes 03/02/20 Range/Units 05:30 Total Creatine Kinase 138 (39-308) U/L Liver Function 03/02/20 Range/Units 05:30 Total Bilirubin 1.5 H (0.2-1) mg/dl AST 32 (15-37) U/L ALT 25 (12-78) U/L Alkaline Phosphatase 103 (45-117) U/L Albumin 2.6 L (3.4-5.0) gm/dl Medications Administered Current Inpatient Medications Acetaminophen (Acetaminophen 325 Mg Tab) 650 mg PO Q4H PRN PRN Reason: Pain or Fever Stop: 03/30/20 20:03 Last Admin: 03/01/20 09:20 Dose: 650 mg Documented by: Cyanocobalamin (Cyanocobalamin (Vitamin B-12) 100 Mcg Tablet) 100 mcg PO DAILY [facility] Stop: 03/31/20 08:59 Last Admin: 03/02/20 08:16 Dose: 100 mcg Documented by: Diclofenac Sodium (Diclofenac Sod 1% Gel 100 Gm Tube) 2 gm EXT BID PRN PRN Reason: Pain Stop: 03/30/20 20:03 Duloxetine HCl (Duloxetine Hcl 60 Mg Cap) 60 mg PO HS [facility] Stop: 03/31/20 20:59 Last Admin: 03/01/20 20:02 Dose: 60 mg Documented by: Folic Acid (Folic Acid 1 Mg Tab) 1 mg PO QAM [facility] Stop: 03/31/20 08:59 Last Admin: 03/02/20 08:16 Dose: 1 mg Documented by: Furosemide (Furosemide 40 Mg Tab) 40 mg PO DAILY [facility] Stop: 03/31/20 08:59 Last Admin: 03/02/20 08:14 Dose: 40 mg Documented by: Ceftriaxone Sodium 2,000 mg/ (Dextrose) 70 mls @ 100 mls/hr IV Q24H [facility]; Protocol Stop: 03/07/20 10:59 Last Infusion: 03/02/20 12:23 Dose: Infused Documented by: Lactulose (Lactulose Syrup 30 Gm/45 Ml Udp) 30 gm PO TID [facility] Stop: 04/01/20 13:59 Last Admin: 03/02/20 14:46 Dose: 30 gm Documented by: Magnesium Oxide (Magnesium Oxide 400 Mg Tab) 400 mg PO QAM [facility] Stop: 03/31/20 08:59 Last Admin: 03/02/20 08:15 Dose: 400 mg Documented by: Pantoprazole Sodium (Pantoprazole 40 Mg Tab) 40 mg PO QAM [facility] Stop: 03/31/20 08:59 Last Admin: 03/01/20 09:28 Dose: Not Given Documented by: Potassium Chloride (Potassium Chloride Crtab 20 Meq Tabcr) 20 meq PO DAILY [facility] Stop: 03/31/20 08:59 Last Admin: 03/02/20 08:15 Dose: 20 meq Documented by: Rifaximin (Rifaximin 550 Mg Tablet) 550 mg PO BID [facility] Stop: 03/30/20 20:59 Last Admin: 03/02/20 08:15 Dose: 550 mg Documented by: Spironolactone (Spironolactone 100 Mg Tab) 100 mg PO DAILY [facility] Stop: 03/31/20 08:59 Last Admin: 03/02/20 08:16 Dose: 100 mg Documented by: Thiamine HCl (Thiamine Hcl 100 Mg Tab) 100 mg PO QAM [facility] Stop: 03/31/20 08:59 Last Admin: 03/02/20 08:15 Dose: 100 mg Documented by:
[2020-03-02] MEDS: DULoxetine HCL 60 MG CAP PO SCH (20:18)
[2020-03-02 23:46] VITALS: O2SAT 97
[2020-03-03] MEDS ORDERED: CALCIUM CARBONATE 500 MG CHEWABLE TAB PO PRN (01:38)
[2020-03-03 07:04] LABS: BUN Creatinine Ratio 16.2 (10-20); Calcium 8.9 mg/dl (8.5-10.1); Creatinine Clr Calc Pharmacy 109.1 ml/min; Est GFR (African American) 117.5; Est GFR (Non-African American) 101.4; Magnesium 1.8 mg/dl (1.8-2.4); Potassium 4.1 mmol/L (3.5-5.1)
[2020-03-03 07:24] VITALS: BP 167/93; PULSE 80; TEMP 98.4
[2020-03-03] MEDS: THIAMINE HCL 100 MG TAB PO SCH (08:56)
[2020-03-03] MEDS: MAGNESIUM OXIDE 400 MG TAB PO SCH (08:56)
[2020-03-03] MEDS: rifAXIMin 550 MG TABLET PO SCH (08:56)
[2020-03-03] MEDS: CYANOCOBALAMIN (VITAMIN B-12) 100 MCG TABLET PO SCH (08:57)
[2020-03-03] MEDS: FUROSEMIDE 40 MG TAB PO SCH (08:57)
[2020-03-03] MEDS: POTASSIUM CHLORIDE CRTAB 20 MEQ TABCR PO SCH (08:57)
[2020-03-03] MEDS: FOLIC ACID 1 MG TAB PO SCH (08:57)
[2020-03-03] MEDS: SPIRONOLACTONE 100 MG TAB PO SCH (08:57)
[2020-03-03] MEDS: LACTULOSE SYRUP 30 GM/45 ML UDP PO SCH (08:58)
--- NOTE | 2020-03-03 11:19 | Gastroenterology Progress Note ---
Date of Service March 03, 2020 Assessment & Plan (1) Acute hepatic encephalopathy: This is a 60 y/o male with h/o ETOH cirrhosis with ascites, hepatic encephalopathy, varices, PHG, admitted with mental status changes, confusion, much improved today on lactulose. UC + for staph which can also contribute to AMS; ABX on board. Labs are overall stable; ammonia level diminished. Final results of septic work-up still pending. Unclear what inciting event was (? med compliance, UTI)? - Head CT neg - CXR neg - UC as above, awaiting final BC - Stressed importance of continuing Lactulose 30 mg TID, aim for 3-4 loose BMs daily; pt agrees to comply with this - ABX for UTI as per primary team - Monitor LFTs, INR, CBC, BMP - Continue rifaximin - Continue Lasix - Continue Aldactone - Continue daily PPI - Encouraged to continuing to abstain from ETOH, illicit drugs - APAP no more than 2g daily - Low Na diet < 2 gm daily - Daily weights Recommend he f/u with GI as an outpt on discharge. Admission and Anticipated Discharge Date Admission Date: February 29, 2020 Supervising Physician Co-Signing Physician Notes Late entry: Patient was seen and examined on 03/03 with Mir Elam PA-C whose note reflects our findings and plan. Hep enceph. Improved with lactulose. Being treated for UTI as well. Subjective Patient seen and examined, chart reviewed. Feeling much better today; encephalopathy improved. He's awake, alert, oriented; wanting to go home. Tolerated breakfast. Last documented stool was last evening, but pt reports having loose stool this AM. Denies specific complaints, including CP, SOB, abd pain, n/v, melena, hematochezia. Labs are stable. Review of Systems Review of Systems: All systems reviewed & are unremarkable except as noted in HPI & below Physical Exam Constitutional: WD/WN, vitals as above Eyes: + anicteric sclerae Respiratory: normal respiratory effort and + respiratory distress Auscultation: lungs clear to auscultation bilaterally Cardiovascular: RRR, no murmur, no edema Gastrointestinal (Abdomen): Inspection/Auscultation: abdomen normal to inspection and normal bowel sounds; abdomen not distended Percussion/Palpation: abdomen soft; abdomen nontender and no guarding Skin: no rashes, warm and dry Neurologic: no asterixis Psychiatric: Orientation: alert and oriented x 3 Results & Data ([facility]) Vital Signs (Past 12 Hours) Vital Signs Temp Pulse Resp BP Pulse Ox 03/03/20 07:23 36.9 C 80 16 167/93 H 97 03/02/20 23:45 36.7 C 86 17 139/69 97 Laboratory Results 03/03/20 03/03/20 03/02/20 Range/Units 06:12 06:12 11:29 PT 13.0 H (9.0-12.0) Seconds INR 1.2 H (0.9-1.1) Sodium 137 (136-145) mmol/L Potassium 4.1 (3.5-5.1) mmol/L Chloride 109 H (98-107) mmol/L Carbon Dioxide 23 (21-32) mmol/L Anion Gap 5.0 (3-11) BUN 12 (7-18) mg/dl Creatinine 0.72 (0.6-1.4) mg/dl Est Cr Clr Drug Dosing 109.1 ml/min Est GFR ( Amer) 117.5 Est GFR (Non-Af Amer) 101.4 BUN/Creatinine Ratio 16.2 (10-20) Glucose 89 (70-99) mg/dl Calcium 8.9 (8.5-10.1) mg/dl Magnesium 1.8 (1.8-2.4) mg/dl Ammonia 82.9 H (11-32) umol/L
--- NOTE | 2020-03-03 12:32 | Hospitalist Progress Note ---
Date of Service March 03, 2020 Assessment & Plan (1) Confusion: Possible related to hepatic encephalopathy VS UTI VS narcotic Urine tox is negative. Elevated ammonia level on admission 112 then increased to 205 CT head showed no acute intracranial abnormality Continue Lactulose 30mg TID and Rifaximin 550 mg BID Clinically improved. (2) Acute cystitis without hematuria: Urine cx positive for staph On IV Rocephin, will transition to macrobid PO 100mg BID (3) Chronic back pain: Intermittent narcotic use with oxycodone that is not consistently written daily for use per PDMP data. Removed oxycodone from home med list so we don't become confused. This is given to him very intermittently. The patient was recently seen by Dr. Bauer (ortho spine surgeon) in mid-Feb. There is some concern for hardware failure with plan to pursue additional imaging with L-spine MRI wo contrast and CT scan wo contrast as the patient appears to be quite limited by this. He was evaluated by therapy this admission and cleared to return home. Plan to follow up with Dr. Bauer on discharges. Advised pt to avoid taking any narcotic due to intermittent confusion (4) Alcoholic cirrhosis: Patient reports abstinence from alcohol for 6 years. Possible decompensation with HE, although clinically he is improved. GI on board and Lactulose increased to 30mg TID Will need outpatient follow up with GI (5) Esophageal varices: Due chronic portal hypertension. No evidence of GI bleeding (6) Depression with anxiety: chronic, stable. Continue duloxetine per home regimen. (7) Tobacco abuse: Declines nicotine replacement today. Counseling on tobacco cessation (8) Thrombocytopenia: chronic 2/2 cirrhosis. (9) DVT prophylaxis: SCDs/ambulation-chemoprophy relatively contraindicated in setting of thrombocytopenia. Full Code Admission and Anticipated Discharge Date Admission Date: February 29, 2020 Subjective Pt was seen and examined for follow up of confusion Sitting in chair with no distress Pt said that he feels ok He said that he is ready to discharge today He said that that he has to go home home to schedule for his back surgery He said that his back pain is stable He said that he has a bowel movement this morning He does not want to stay in the hospital tonight and said that he would leave today Denies any chest pain, palpitation, dizziness, dysuria and fever Physical Exam Physical Exam: General- No acute distress Head- atraumatic Eyes- PERRL, EOMI, ENT- oropharynx clear Neck- supple, no JVD Lungs- clear to auscultation Heart- regular rhythm; no murmur Abdomen- normal bowel sounds, soft, nontender Extremities- no calf tenderness Neuro- alert, oriented x 3; PERRL, EOMI; no facial palsy; no dysarthria Skin- warm & dry Results & Data Results & Data ([facility]) Vital Signs (Past 12 Hours) Vital Signs Temp Pulse Resp BP Pulse Ox 03/03/20 07:23 36.9 C 80 16 167/93 H 97
[2020-03-03] MEDS: cefTRIAXone SODIUM 2,000 MG in DEXTROSE 5% 50 ML IV SCH (12:55)
--- NOTE | 2020-03-05 09:20 | Discharge Summary ---
Date of Service March 03, 2020 Admission HPI Per Admitting Provider Pt is 60 y/o M with PMH alcoholic liver cirrhosis, prior history of alcoholism, portal vein thrombosis, esophageal varices, portal hypertensive gastropathy, GERD, HTN, peripheral neuropathy, thrombocytopenia, pancytopenia, prior drug use, anxiety, depression presented to ER for confusion. History obtained from ER staff and record review secondary to pt's confusion. Pt oriented to self and knows he is in hospital. He states his head feels weird and he feels confused. Pt states taking his lactulose daily, however having a difficult time remembering so it is unclear if pt taking his medications appropriately. Of note pt with recent hospital admission 01/28/20-01/31/20 for encephalopathy related to drug overdose (had 4 buprenorphine patches on) and possible hepatic encephalopathy. Pt denies CP, SOB. Reports "don't feel good & I don't feel right". Admission Exam Per Admitting Provider General: Alert but confused, in no distress Eyes: PERRL, conjunctivae normal, EOM intact bilaterally ENMT: External ear and nose normal, oropharynx normal Respiratory: Normal respiratory effort, no respiratory distress, lungs clear to auscultation, no crackles and no wheezes Cardiovascular: RRR S1-S2 Gastrointestinal (Abdomen): Abdomen is not distended, soft, non-tender to palpation, no guarding, no palpable hepatosplenomegaly, normal bowel sounds Musculoskeletal: No cyanosis or clubbing, all extremities motor strength 5/5 Genitourinary: No CVA tenderness Neurologic: Alert and oriented to person only, confused, has asterixis, no focal deficits Psychiatric: Confused Principal Diagnosis Confusion Acute cystitis without hematuria Chronic back pain Alcoholic cirrhosis Esophageal varices Depression with anxiety Tobacco abuse Thrombocytopenia Discharge Exam General- No acute distress Head- atraumatic Eyes- PERRL, EOMI, ENT- oropharynx clear Neck- supple, no JVD Lungs- clear to auscultation Heart- regular rhythm; no murmur Abdomen- normal bowel sounds, soft, nontender Extremities- no calf tenderness Neuro- alert, oriented x 3; PERRL, EOMI; no facial palsy; no dysarthria Skin- warm & dry Discharge Data Allergies Allergy/AdvReac Type Severity Reaction Status Date / Time No Known Allergies Allergy Verified 02/29/20 17:02 Consultations 02/29/20 17:51 ED Decision to Admit Stat 02/29/20 20:04 Consult Case Management - Discharge Planning Routine 03/01/20 08:00 Consult Gastroenterology Routine Ordered Studies 02/29/20 16:01 CT head/brain wo con Stat CT SCAN OF THE BRAIN WITHOUT IV CONTRAST CLINICAL HISTORY: Change in mental status. COMPARISON STUDY: CT of the brain dated 01/28/2020. TECHNIQUE: Unenhanced axial CT scan of the brain is performed from the vertex to the skull base. A dose lowering technique was utilized adhering to the principles of ALARA. CT DOSE: 614.27 mGy.cm FINDINGS: Brain parenchyma: The brain parenchyma is normal in appearance. There is no hemorrhage, mass effect, or evidence of acute territorial ischemia by CT criteria. Michel-white matter differentiation is preserved. No extra-axial fluid collection is seen. Ventricles, sulci, cisterns: Normal in configuration. Intracranial vasculature: There is atherosclerotic calcification of the cavernous carotid and vertebral arteries. Calvarium: Unremarkable. Sinuses and mastoids: The visualized paranasal sinuses are clear. The mastoid air cells are well pneumatized. Orbits: The bony orbits are grossly intact. IMPRESSION: There is no hemorrhage, mass effect, or evidence of acute territorial ischemia by CT criteria. ACT 112: Negative or not required by law. Electronically signed by: Jamil Freedman M.D. 02/29/2020 5:54 PM Dictated: 02/29/201751Transcribed: 02/29/201751 SINGLE VIEW CHEST CLINICAL HISTORY: Change in mental status. FINDINGS: An AP, portable, upright chest radiograph is compared to study dated 01/28/2020. The cardiomediastinal silhouette is unremarkable. Pericardial calcification is similar to previous. There is mild bibasilar atelectasis. The lungs and pleural spaces are otherwise clear. No pneumothorax is seen. The bony thorax is grossly intact. IMPRESSION: No active disease in the chest. Electronically signed by: Jamil Freedman M.D. 02/29/2020 4:26 PM Dictated: 02/29/20 1624Transcribed: 02/29/20 1624 Hospital Course (1) Confusion: Possible related to hepatic encephalopathy VS UTI VS narcotic Urine tox is negative. Elevated ammonia level on admission 112 then increased to 205 CT head showed no acute intracranial abnormality Continue Lactulose 30mg TID and Rifaximin 550 mg BID Clinically improved. (2) Acute cystitis without hematuria: Urine cx positive for staph On IV Rocephin, will transition to macrobid PO 100mg BID (3) Chronic back pain: Intermittent narcotic use with oxycodone that is not consistently written daily for use per PDMP data. Removed oxycodone from home med list so we don't become confused. This is given to him very intermittently. The patient was recently seen by Dr. Bauer (ortho spine surgeon) in mid-Feb. There is some concern for hardware failure with plan to pursue additional imaging with L-spine MRI wo contrast and CT scan wo contrast as the patient appears to be quite limited by this. He was evaluated by therapy this admission and cleared to return home. Plan to follow up with Dr. Bauer on discharges. Advised pt to avoid taking any narcotic due to intermittent confusion (4) Alcoholic cirrhosis: Patient reports abstinence from alcohol for 6 years. Possible decompensation with HE, although clinically he is improved. GI on board and Lactulose increased to 30mg TID Will need outpatient follow up with GI (5) Esophageal varices: Due chronic portal hypertension. No evidence of GI bleeding (6) Depression with anxiety: chronic, stable. Continue duloxetine per home regimen. (7) Tobacco abuse: Declines nicotine replacement today. Counseling on tobacco cessation (8) Thrombocytopenia: chronic 2/2 cirrhosis. (9) DVT prophylaxis: SCDs/ambulation-chemoprophy relatively contraindicated in setting of thrombocytopenia. Full Code Total Time Total Time Spent Total Time Spent (In Minutes): 35 minutes Total Time Includes: Examination of the Patient, Discharge Planning, Medication Reconciliation, Communication With Other Providers and Other Discharge Plan Discharge Items Patient Disposition: Home - Home Health Services Reason For Visit: AMS Discharge Diagnosis: Confusion Acute cystitis without hematuria Chronic back pain Alcoholic cirrhosis Esophageal varices Depression with anxiety Tobacco abuse Thrombocytopenia Activity: Resume your previous activity Non-emergency contact: Primary Care Provider, Surgeon and [employer] Call non-emergency contact if: you have any medication questions and your temperature is above 101 Follow-up/Referrals: Najma Garcia MD [Primary Care Provider] - Diet: Heart Healthy and Low Sodium (2gm) Addtl Attending Provider Instructions: Follow up with primary care provider Dr. Saucedo ( Dr. Garcia's colleague ) on 03/09/20 @ 12PM Follow up with Gastroenterology (Please call for the appointment) Follow up with Orthopedic Dr. Bauer for the back pain Fall precaution Continue daily Lactulose to have between 3-4 bowel movement per day Encouraged to continuing to abstain from ETOH, illicit drugs Counseling on tobacco abuse Please avoid any narcotic due to intermittent confusion Follow a low salt diet Pending Studies at Discharge: No Stand-Alone Forms: My [facility], Smoking Cessation Medications and DC Order Prescriptions: Continued sildenafil (pulm.hypertension) [Revatio] 20 mg tablet 40 mg PO WK PRN (Reason: Sexual Activity) RF: 0 amoxicillin 500 mg capsule 500 mg PO BID RF: 0 duloxetine 60 mg capsule,delayed release(DR/EC) 60 mg PO DAILY RF: 0 diclofenac sodium 1 % gel 2 g topical BID PRN (Reason: Pain) RF: 0 Discharge Orders: Discharge Order (Routine); Ordered 03/03/20 Ordered By: Elizabeth Adame Admission Data Admit Date/Time: 02/29/20 18:31 Attending Provider: Elizabeth Adame Admit Provider: Ledy Parekh I. Primary Care Provider: Najma Garcia Other Providers: Ledy Parekh I. ; Ritu Toribio ; Ct Healy ; Mateus Alvarez [facility] Other Interventions: Discharge Summary Assessment (RN) Last Done: 03/03/20 13:19
== END 2020-03-03 13:59 | disposition home health service (06) | DRG 442 ==
LOC: ED 15:29 → SUATTDRO 18:31 → 2N 18:31

== ENCOUNTER 2020-04-04 18:00 | Inpatient (IN) ==
--- NOTE | 2020-04-04 18:04 | Emergency Department Note ---
Impression & Plan Acute hepatic encephalopathy, Dehydration, Cystitis ED Provider Note NAME: FABIANA LARRY AGE: 60 SEX: M : 1960 ARRIVES VIA: Ambulance INFORMANT: Patient, ED PROVIDER(S): Des Burns MD Chief Complaint: Confusion HPI: The patient does present with worsening confusion that began yesterday. The patient reportedly had been going over to his neighbor's home trying to find his cell phone but was unaware to where it is. Patient did present via EMS with the patient had stable vitals and a BSG was in the 1 teens. The patient denies any fevers or chills but has noticed the confusion since yesterday has gotten progressively worse. The patient has had a history of liver cirrhosis and hyperammonemia. The patient states that he has been compliant with his medications. The patient denies fevers or chills. The patient denies any dysuria hematuria or issues with bowel movements. The patient denies any recent falls or head trauma. The patient denies taking any blood thinning medications. Patient also does have complaint of chronic back pain. The patient did have a prior procedure [address] Newman and is to follow with Dr. Bauer in the future. ROS: See HPI for pertinent positives and negatives. A total of 10 systems were reviewed and otherwise negative. Past medical history: See below Surgical history: See below Social history: See below Physical Exam: GENERAL: Wearing a mask. NAD, non-toxic. EYE EXAM: Normal conjunctiva. PERRL, no anisocoria and EOM's grossly intact w/o pain. NECK: Supple, no nuchal rigidity, no adenopathy, non-tender. No signs of meningismus. LUNGS: Clear to auscultation. Normal chest wall mechanics. HEART: NSR, no MRG. ABDOMEN: Abdomen soft, non-tender, normo-active bowel sounds, no masses, no rebound or guarding. BACK: Mild discomfort to the lower lumbar spine, well-healed midline lumbar incisional scar without overlying skin changes crepitus, erythema, fluctuance, or drainage.No CVA TTP. SKIN: No rashes and no bruising. UPPER EXTREMITIES: Upper extremities are grossly normal. Asterixis noted bilaterally. LOWER EXTREMITIES: Grossly normal, no edema. NEURO EXAM: A&O x3, cranial nerves II-XII grossly intact, normal speech, moves all 4 extremities on command w/o issue. Differential diagnoses: Infection, dehydration, metabolic abnormality, hypo/hyperglycemia, electrolyte disturbance, anemia, hypoxia, cardiac sources, intracerebral event, toxicologic, neurologic, as well as other pathologies. Course: Patient was seen and evaluated the bedside. Full history physical exam was performed. EKG: Indication: Confusion Normal sinus rhythm, rate of 92, normal W[place] and QRS, prolonged QTC, normal axis, no ST changes. Imaging Studies: Radiology results as stated below per my review in the radiologist's interpretation: XR chest 1V portable CLINICAL HISTORY: SEPSIS COMPARISON STUDY: Chest radiograph February 29, 2020. FINDINGS: Lung volumes are normal. Lungs are clear. There is no pneumothorax or pleural effusion. Cardiac size is normal. Mediastinal contours are normal. There is no evidence for pulmonary edema. IMPRESSION: No acute cardiopulmonary findings. ACT 112: Negative or not required by law. Electronically signed by: Leonardo Brewster M.D. 04/04/2020 8:01 PM Dictated: 04/04/202000 Transcribed: 04/04/202000 CT OF THE HEAD WITHOUT CONTRAST CLINICAL HISTORY: confusion COMPARISON STUDY: Head CT February 29, 2020. CT DOSE: 537.48 mGy.cm TECHNIQUE: Helical axial images of the head were obtained without IV contrast. Automated exposure control was utilized for the study. A dose lowering t echnique was utilized adhering to the principles of ALARA. FINDINGS: No acute intracranial hemorrhage, midline shift or mass effect is present. The ventricular system is unremarkable. The basal cisterns are patent. No extra-axial collections are present. There are no findings to suggest acute dural sinus thrombosis or acute territorial infarct. No significant calvarial abnormalities are present. Visualized portions of the sinuses and mastoid air cells are clear. IMPRESSION: No acute intracranial findings. ACT 112: Negative or not required by law. Electronically signed by: Leonardo Brewster M.D. 04/04/2020 7:28 PM Dictated: 04/04/201925 Transcribed: 04/04/201925 Cardiac monitoring: An order was placed for continuous cardiac monitoring. The monitor shows a rate of 94 with sinus rhythm. MDM: Patient did present with for concern for confusion. The patient does have a known history of liver cirrhosis and hyperammonemia. He is compliant with his lactulose. Patient did have bladder completed along with blood and urine cultures and IV fluids were given. The patient also did relate that he does have some chronic back pain. The patient does not have any bowel or bladder incontinence or retention. No sensory deficits in the lower extremities. The patient does have a well-healed midline lower lumbar incisional scar. Patient's blood work showed mild leukopenia with a normal hemoglobin and thrombocytopenia. Thrombocytopenia is chronic. Lactate of 2.4. The patient's bilirubin AST at 2.1 and 60 respectively. Ammonia at 92. Lactulose was ordered. Troponin undetectable. Urinalysis does show evidence of possible infection with positive nitrites and bacteria but has multiple epithelial cells. Given this and the patient's known cirrhosis history Rocephin ordered. Past Med/Surg History Medical History Acute hepatic encephalopathy Anxiety Chronic back pain Confusion Depression Encephalopathy, hepatic Fusion of spine February 2019 Genital herpes GERD (gastroesophageal reflux disease) Hearing deficit right ear perf eardrum History of alcohol abuse History of anemia History of cirrhosis of liver D/T ALCOHOL History of colon polyps History of hepatitis C Hx of ascites Hx of encephalopathy HEAPTIC Hx of esophageal varices Hx of gynecomastia Hx of thrombocytopenia Hypertension Lethargic Medication reaction Osteoarthritis Portal hypertensive gastropathy Portal vein thrombosis Urinary tract infection history of Surgical History History of lumbar fusion History of tooth extraction all teeth removed History of total right hip arthroplasty 2018 Hx of decompression of ulnar nerve RIGHT Family History Father Diabetes Other No family history of adverse response to anesthesia Social History Smoking Status: Unknown if ever smoked Cigarettes Per Day: 1ppd x 2 years; Second Hand Exposure: No; Hx Alcohol Use: Yes Alcohol type: beer Alcohol Intake Frequency Comment: history of alcoholism, quit 4+ years ago Hx Substance Use: Yes Last Used Substance: Unknown Last Used Substance Other:: 5 months ago Substance Use Type Other:: 2-3 times a month Preferred Language: Russian Communication Ability: Effective Radio Performer Required: No Beliefs That Will Affect Care: None marital status: Single Current Living Situation: Other Current Living Situation Comment: [facility] How many Children do You have: 0 Feels Safe at Home: Yes Assistive Devices: Cane Allergies Allergies Allergy/AdvReac Type Severity Reaction Status Date / Time No Known Allergies Allergy Verified 04/04/20 20:18 Home Meds Home Medications Medication Instructions Recorded Confirmed diclofenac sodium 2 g TOPICAL BID PRN 02/29/20 04/04/20 cyanocobalamin (vitamin B-12) 100 mcg PO DAILY 04/04/20 04/04/20 duloxetine 30 mg PO DAILY 04/04/20 04/04/20 furosemide 40 mg PO BID 04/04/20 04/04/20 rifaximin [Xifaxan] 550 mg PO BID 04/04/20 04/04/20 spironolactone 100 mg PO BID 04/04/20 04/04/20 thiamine mononitrate (vit B1) 100 mg PO DAILY 04/04/20 04/04/20 vitamin A 0 unit PO DAILY 04/04/20 04/04/20 Results & Data (ED) Vital Signs Vital Signs - 24 hr 04/04/20 18:07 04/04/20 19:03 04/04/20 19:07 Temperature 36.8 C Temperature Source Oral Pulse Rate 94 H Pulse Rate from SpO2 Sensor Respiratory Rate 18 18 Respiratory Effort / Characteristics Non-Labored Blood Pressure 155/81 H Blood Pressure Mean 105 Pulse Oximetry 98 96 99 Oxygen Delivery Method Room Air Room Air Sepsis Recent Fever Within 48 Hours No Sepsis New/Unexplained Change in Mental Status No Sepsis Action Taken by Nursing No Action Required 04/04/20 19:08 04/04/20 19:30 04/04/20 20:08 Temperature Temperature Source Pulse Rate 91 H 94 H 97 H Pulse Rate from SpO2 Sensor 92 H 94 H 97 H Respiratory Rate 15 22 17 Respiratory Effort / Characteristics Blood Pressure 101/60 175/101 H 172/94 H Blood Pressure Mean 73 125 120 Pulse Oximetry 99 98 100 Oxygen Delivery Method Room Air Room Air Room Air Sepsis Recent Fever Within 48 Hours Sepsis New/Unexplained Change in Mental Status Sepsis Action Taken by [facility] Medications Current Medication List: was personally reviewed by me Laboratory Data Attestation: I reviewed the patient's lab results. Result diagrams: 04/04/20 18:47 04/04/20 18:47 Lab Results 04/04/20 04/04/20 04/04/20 Range/Units 18:47 18:47 18:47 WBC 3.75 L (4.8-10.8) K/uL RBC 4.22 L (4.7-6.1) M/uL Hgb 14.4 (14.0-18.0) g/dL Hct 40.7 L (42-52) % MCV 96.4 (80-100) fL MCH 34.1 H (25-34) pg MCHC 35.4 (32-36) g/dL RDW Std Deviation 50.0 H (36.4-46.3) fL RDW Coeff of Abhijit 14.2 (11.5-14.5) % Plt Count 59 L (130-400) K/uL MPV 11.5 H (7.4-10.4) fL Immature Gran % (Auto) 0.0 % Neut % (Auto) 59.4 % Lymph % (Auto) 26.4 % Motley % (Auto) 9.9 % Eos % (Auto) 3.5 % Baso % (Auto) 0.8 % Neut # (Auto) 2.23 (1.4-6.5) K/uL Lymph # (Auto) 0.99 L (1.2-3.4) K/uL Motley # (Auto) 0.37 (0.11-0.59) K/uL Eos # (Auto) 0.13 (0-0.5) K/uL Baso # (Auto) 0.03 (0-0.2) K/uL Immature Gran # (Auto) 0.00 (0.00-0.02) K/uL PT 12.0 (9.0-12.0) Seconds INR 1.2 H (0.9-1.1) APTT 25.0 (21.0-31.0) Seconds PTT Ratio 1.0 Sodium 144 (136-145) mmol/L Potassium 4.0 (3.5-5.1) mmol/L Chloride 113 H (98-107) mmol/L Carbon Dioxide 22 (21-32) mmol/L Anion Gap 9.0 (3-11) BUN 13 (7-18) mg/dl Creatinine 0.86 (0.6-1.4) mg/dl Est Cr Clr Drug Dosing 91.6 ml/min Est GFR ( Amer) 109.2 Est GFR (Non-Af Amer) 94.3 BUN/Creatinine Ratio 14.8 (10-20) Glucose 83 (70-99) mg/dl Lactate (0.4-2.0) mmol/L Calcium 9.2 (8.5-10.1) mg/dl Magnesium 2.2 (1.8-2.4) mg/dl Total Bilirubin 2.1 H (0.2-1) mg/dl AST 60 H (15-37) U/L ALT 35 (12-78) U/L Alkaline Phosphatase 133 H (45-117) U/L Ammonia (11-32) umol/L Troponin I < 0.015 (0-0.045) ng/ml Total Protein 7.3 (6.4-8.2) gm/dl Albumin 3.4 (3.4-5.0) gm/dl Globulin 3.9 (2.5-4.0) gm/dl Albumin/Globulin Ratio 0.9 (0.9-2) Procalcitonin (0-0.5) ng/ml Urine Color Urine Appearance (Clear) Urine pH (4.5-7.5) Ur Specific Wesson (1.000-1.030) Urine Protein (Negative) Urine Glucose (UA) (Negative) Urine Ketones (Negative) Urine Blood (Negative) Urine Nitrite (Negative) Urine Bilirubin (Negative) Urine Urobilinogen (Negative) Ur Leukocyte Esterase (Negative) Urine WBC (Auto) (0-5) /hpf Urine RBC (Auto) (0-4) /hpf U Hyaline Cast (Auto) (0-5) /lpf U Epithel Cells (Auto) (0-5) /lpf Urine Bacteria (Auto) (Negative) COVID-19 Eval Order SARS-CoV-2, RNA, NAAT (NEGATIVE) 04/04/20 04/04/20 04/04/20 Range/Units 18:47 18:47 18:47 WBC (4.8-10.8) K/uL RBC (4.7-6.1) M/uL Hgb (14.0-18.0) g/dL Hct (42-52) % MCV (80-100) fL MCH (25-34) pg MCHC (32-36) g/dL RDW Std Deviation (36.4-46.3) fL RDW Coeff of Abhijit (11.5-14.5) % Plt Count (130-400) K/uL MPV (7.4-10.4) fL Immature Gran % (Auto) % Neut % (Auto) % Lymph % (Auto) % Motley % (Auto) % Eos % (Auto) % Baso % (Auto) % Neut # (Auto) (1.4-6.5) K/uL Lymph # (Auto) (1.2-3.4) K/uL Motley # (Auto) (0.11-0.59) K/uL Eos # (Auto) (0-0.5) K/uL Baso # (Auto) (0-0.2) K/uL Immature Gran # (Auto) (0.00-0.02) K/uL PT (9.0-12.0) Seconds INR (0.9-1.1) APTT (21.0-31.0) Seconds PTT Ratio Sodium (136-145) mmol/L Potassium (3.5-5.1) mmol/L Chloride (98-107) mmol/L Carbon Dioxide (21-32) mmol/L Anion Gap (3-11) BUN (7-18) mg/dl Creatinine (0.6-1.4) mg/dl Est Cr Clr Drug Dosing ml/min Est GFR ( Amer) Est GFR (Non-Af Amer) BUN/Creatinine Ratio (10-20) Glucose (70-99) mg/dl Lactate 2.4 H* (0.4-2.0) mmol/L Calcium (8.5-10.1) mg/dl Magnesium (1.8-2.4) mg/dl Total Bilirubin (0.2-1) mg/dl AST (15-37) U/L ALT (12-78) U/L Alkaline Phosphatase (45-117) U/L Ammonia 92.0 H (11-32) umol/L Troponin I (0-0.045) ng/ml Total Protein (6.4-8.2) gm/dl Albumin (3.4-5.0) gm/dl Globulin (2.5-4.0) gm/dl Albumin/Globulin Ratio (0.9-2) Procalcitonin 0.09 (0-0.5) ng/ml Urine Color Urine Appearance (Clear) Urine pH (4.5-7.5) Ur Specific Wesson (1.000-1.030) Urine Protein (Negative) Urine Glucose (UA) (Negative) Urine Ketones (Negative) Urine Blood (Negative) Urine Nitrite (Negative) Urine Bilirubin (Negative) Urine Urobilinogen (Negative) Ur Leukocyte Esterase (Negative) Urine WBC (Auto) (0-5) /hpf Urine RBC (Auto) (0-4) /hpf U Hyaline Cast (Auto) (0-5) /lpf U Epithel Cells (Auto) (0-5) /lpf Urine Bacteria (Auto) (Negative) COVID-19 Eval Order SARS-CoV-2, RNA, NAAT (NEGATIVE) 04/04/20 04/04/20 04/04/20 Range/Units 19:08 19:08 19:50 WBC (4.8-10.8) K/uL RBC (4.7-6.1) M/uL Hgb (14.0-18.0) g/dL Hct (42-52) % MCV (80-100) fL MCH (25-34) pg MCHC (32-36) g/dL RDW Std Deviation (36.4-46.3) fL RDW Coeff of Abhijit (11.5-14.5) % Plt Count (130-400) K/uL MPV (7.4-10.4) fL Immature Gran % (Auto) % Neut % (Auto) % Lymph % (Auto) % Motley % (Auto) % Eos % (Auto) % Baso % (Auto) % Neut # (Auto) (1.4-6.5) K/uL Lymph # (Auto) (1.2-3.4) K/uL Motley # (Auto) (0.11-0.59) K/uL Eos # (Auto) (0-0.5) K/uL Baso # (Auto) (0-0.2) K/uL Immature Gran # (Auto) (0.00-0.02) K/uL PT (9.0-12.0) Seconds INR (0.9-1.1) APTT (21.0-31.0) Seconds PTT Ratio Sodium (136-145) mmol/L Potassium (3.5-5.1) mmol/L Chloride (98-107) mmol/L Carbon Dioxide (21-32) mmol/L Anion Gap (3-11) BUN (7-18) mg/dl Creatinine (0.6-1.4) mg/dl Est Cr Clr Drug Dosing ml/min Est GFR ( Amer) Est GFR (Non-Af Amer) BUN/Creatinine Ratio (10-20) Glucose (70-99) mg/dl Lactate (0.4-2.0) mmol/L Calcium (8.5-10.1) mg/dl Magnesium (1.8-2.4) mg/dl Total Bilirubin (0.2-1) mg/dl AST (15-37) U/L ALT (12-78) U/L Alkaline Phosphatase (45-117) U/L Ammonia (11-32) umol/L Troponin I (0-0.045) ng/ml Total Protein (6.4-8.2) gm/dl Albumin (3.4-5.0) gm/dl Globulin (2.5-4.0) gm/dl Albumin/Globulin Ratio (0.9-2) Procalcitonin (0-0.5) ng/ml Urine Color Dark Yellow Urine Appearance Clear (Clear) Urine pH 7.5 (4.5-7.5) Ur Specific W[place]on 1.023 (1.000-1.030) Urine Protein Negative (Negative) Urine Glucose (UA) Negative (Negative) Urine Ketones Trace H (Negative) Urine Blood Negative (Negative) Urine Nitrite Positive A (Negative) Urine Bilirubin Negative (Negative) Urine Urobilinogen Positive H (Negative) Ur Leukocyte Esterase Negative (Negative) Urine WBC (Auto) 1-5 (0-5) /hpf Urine RBC (Auto) 0-4 (0-4) /hpf U Hyaline Cast (Auto) 1-5 (0-5) /lpf U Epithel Cells (Auto) 20-30 H (0-5) /lpf Urine Bacteria (Auto) 2+ H (Negative) COVID-19 Eval Order Covid19 [facility] SARS-CoV-2, RNA, NAAT NEGATIVE (NEGATIVE) Administered Medications Discontinued Medications Sodium Chloride (Nss 1000ml) 1,000 mls @ 999 mls/hr IV .[id number] AMBER Stop: 04/04/20 19:30 Last Infusion: 04/04/20 19:36 Dose: 0 mls/hr Documented by: [id number] Admin: 04/04/20 18:35 Dose: 999 mls/hr Documented by: [id number] Lactulose (Lactulose Syrup 20 Gm/30 Ml Udc) 30 gm PO NOW STA Stop: 04/04/20 19:51 Last Admin: 04/04/20 20:08 Dose: 30 gm Documented by: [id number] Ondansetron HCl (Ondansetron Inj 2 Mg/Ml 2 Ml Vial) 4 mg IV NOW STA Stop: 04/04/20 18:23 Last Admin: 04/04/20 18:35 Dose: 4 mg Documented by: [id number] Discharge Plan Visit Data Chief Complaint: Illness ED Provider: Des Burns Discharge Problem: Acute hepatic encephalopathy, Dehydration, Cystitis Forms Stand Alone Forms: [facility] Prescriptions Prescriptions: No Action furosemide 40 mg tablet 40 mg PO BID RF: 0 vitamin A 8,000 unit Capsule 0 unit PO DAILY RF: 0 cyanocobalamin (vitamin B-12) 100 mcg tablet 100 mcg PO DAILY RF: 0 spironolactone 100 mg tablet 100 mg PO BID RF: 0 duloxetine 30 mg capsule,delayed release(DR/EC) 30 mg PO DAILY RF: 0 Xifaxan 550 mg tablet 550 mg PO BID RF: 0 thiamine mononitrate (vit B1) 100 mg tablet 100 mg PO DAILY RF: 0 diclofenac sodium 1 % gel 2 g topical BID PRN (Reason: Pain) RF: 0
[2020-04-04] MEDS ORDERED: ONDANSETRON INJ 2 MG/ML 2 ML VIAL IV STA (18:22)
[2020-04-04] MEDS ORDERED: SODIUM CHLORIDE 0.9% 1000ML 1,000 ML IV SCH (18:30)
[2020-04-04 19:07] LABS: Hematocrit (blood only) 40.7 % (42-52); Hemoglobin 14.4 g/dL (14.0-18.0); Mean Corpuscular Hemoglobin 34.1 pg (25-34); Mean Corpuscular Hgb Conc 35.4 g/dL (32-36); Mean Corpuscular Volume 96.4 fL (80-100); RDW Coefficient of Variation 14.2 % (11.5-14.5); Red Blood Count 4.22 M/uL (4.7-6.1); White Blood Count 3.75 K/uL (4.8-10.8)
[2020-04-04 19:17] LABS: INR 1.2 (0.9-1.1)
[2020-04-04 19:23] LABS: Mean Platelet Volume 11.5 fL (7.4-10.4); Platelet Count 59 K/uL (130-400)
--- NOTE | 2020-04-04 19:29 | CT Scan Report ---
CT OF THE HEAD WITHOUT CONTRAST CLINICAL HISTORY: confusion COMPARISON STUDY: Head CT February 29, 2020. CT DOSE: 537.48 mGy.cm TECHNIQUE: Helical axial images of the head were obtained without IV contrast. Automated exposure con trol was utilized for the study. A dose lowering technique was utilized adhering to the principles o f ALARA. FINDINGS: No acute intracranial hemorrhage, midline shift or mass effect is present. The ventricular system is unremarkable. The basal cisterns are patent. No extra-axial collections are present. There are no findings to suggest acute dural sinus thrombosis or acute territorial infarct. No significant calvarial abnormalities are present. Visualized portions of the sinuses and mastoid air cells are lalita ar. IMPRESSION: No acute intracranial findings. ACT 112: Negative or not required by law. Electronically signed by: Leonardo Brewster M.D. 04/04/2020 7:28 PM
[2020-04-04 19:32] LABS: Basophils # (auto) 0.03 K/uL (0-0.2); Basophils % (auto) 0.8 %; Eosinophils # (auto) 0.13 K/uL (0-0.5); Eosinophils % (auto) 3.5 %; Lymphocytes # (auto) 0.99 K/uL (1.2-3.4); Lymphocytes % (auto) 26.4 %; Monocytes # (auto) 0.37 K/uL (0.11-0.59); Monocytes % (auto) 9.9 %; Neutrophils # (auto) 2.23 K/uL (1.4-6.5); Neutrophils % (auto) 59.4 %
[2020-04-04 19:33] LABS: Alanine Aminotransferase 35 U/L (12-78); Albumin Level 3.4 gm/dl (3.4-5.0); Aspartate Aminotransferase 60 U/L (15-37); BUN Creatinine Ratio 14.8 (10-20); Blood Urea Nitrogen 13 mg/dl (7-18); Calcium 9.2 mg/dl (8.5-10.1); Carbon Dioxide 22 mmol/L (21-32); Chloride 113 mmol/L (98-107); Creatinine Clr Calc Pharmacy 91.6 ml/min; Est GFR (African American) 109.2; Est GFR (Non-African American) 94.3; Glucose 83 mg/dl (70-99); Magnesium 2.2 mg/dl (1.8-2.4); Sodium 144 mmol/L (136-145)
[2020-04-04 19:38] LABS: Albumin Globulin Ratio 0.9 (0.9-2); Alkaline Phosphatase 133 U/L (45-117); Bilirubin,Total 2.1 mg/dl (0.2-1); Globulin 3.9 gm/dl (2.5-4.0); Total Protein 7.3 gm/dl (6.4-8.2); Troponin I < 0.015 ng/ml (0-0.045)
[2020-04-04] MEDS ORDERED: LACTULOSE SYRUP 20 GM/30 ML UDC PO STA (19:50)
[2020-04-04 20:02] LABS: Appearance Urine Clear (Clear); Bacteria Urine Automated 2+ (Negative); Bilirubin Urine Negative (Negative); Blood Urine Negative (Negative); Color Urine Dark Yellow; Epithelial Cell Urine Auto 20-30 /lpf (0-5); Glucose Urine UA Negative (Negative); Ketones Urine Trace (Negative); Leukocyte Esterase Urine Negative (Negative); Nitrite Urine Positive (Negative); Protein Urine Negative (Negative); RBC Urine Automated 0-4 /hpf (0-4); Specific Gravity Urine 1.023 (1.000-1.030); Urobilinogen Urine Positive (Negative); pH Urine 7.5 (4.5-7.5)
--- NOTE | 2020-04-04 20:03 | XRay Report ---
XR chest 1V portable CLINICAL HISTORY: SEPSIS COMPARISON STUDY: Chest radiograph February 29, 2020. FINDINGS: Lung volumes are normal. Lungs are clear. There is no pneumothorax or pleural effusion. Car diac size is normal. Mediastinal contours are normal. There is no evidence for pulmonary edema. IMPRESSION: No acute cardiopulmonary findings. ACT 112: Negative or not required by law. Electronically signed by: Leonardo Brewster M.D. 04/04/2020 8:01 PM
[2020-04-04] MEDS ORDERED: ACETAMINOPHEN 325 MG TAB PO PRN (20:11)
[2020-04-04] MEDS ORDERED: cefTRIAXone SODIUM 2,000 MG/70 ML BAG IV STA (20:33)
[2020-04-04] MEDS: LIDOCAINE 5% 1 PATCH TD SCH (20:36)
[2020-04-04] MEDS: oxyCODONE HCL IR 5 MG TAB (IMMEDIATE RELEASE) PO PRN (20:36)
[2020-04-04] MEDS ORDERED: LACTATED RINGER'S 1,000 ML IV ONE (21:43)
--- NOTE | 2020-04-04 22:02 | History & Physical Report ---
Date of Service April 04, 2020 Assessment & Plan (1) Acute hepatic encephalopathy: Precipitated by complicated UTI, GI illness, no sepsis for now hx alcoholic cirrhosis, elevated ammonia past tobacco and alcohol abuse, chronic anemia, hemoglobin better than baseline likely secondary to h emoconcentration Medical telemetry Facilitate lactulose Follow urine CS, Ceftriaxone IVF, follow lactic acid Appropriate to hold home diuretics until patient euvolemic. DVT prophylaxis. SCDs RE thrombocytopenia Full code Text document was generated using PPT [employer] voice recognition software. It may contain grammatical or spelling errors. Kindly contact undersigned for clarification of any documentation item in question. History of Present Illness Chief Complaint: Confusion, abdominal pain Primary Care Provider: Najma Garcia MD History obtained from patient and records. Medical history significant for alcoholic cirrhosis, past tobacco and alcohol abuse, chronic anemia (baseline hemoglobin 11-12), history of portal vein thrombosis as per records. Recent confinement February 2020 for hepatic encephalopathy. Few days history of achy epigastric pain without unusual diarrhea symptoms. Some nausea, no emesis. Stools not black or bloody. No chest pain, no S OB. Usual back pain complaints. Achy headache symptoms. Patient noted to be confused. Denies recent alcohol intake. Patient brought to the ER for evaluation. Lactulose and ceftriaxone given for hepatic encephalopathy and UTI, respectively . MEDICAL HISTORY: As above. SURGERIES: He has had carpal tunnel surgery, dental surgery, back surgery, hip replacement. FAMILY HISTORY: Heart disease, hypertension, alcohol abuse. PERSONAL AND SOCIAL HISTORY: Past tobacco/ETOH abuse. He is disabled. Allergies Allergy/AdvReac Type Severity Reaction Status Date / Time No Known Allergies Allergy Verified 04/04/20 20:18 Home Medications Medication Instructions Recorded Confirmed Type diclofenac sodium 2 g TOPICAL BID PRN 02/29/20 04/04/20 History cyanocobalamin (vitamin B-12) 100 mcg PO DAILY 04/04/20 04/04/20 History duloxetine 30 mg PO DAILY 04/04/20 04/04/20 History furosemide 40 mg PO BID 04/04/20 04/04/20 History rifaximin [Xifaxan] 550 mg PO BID 04/04/20 04/04/20 History spironolactone 100 mg PO BID 04/04/20 04/04/20 History thiamine mononitrate (vit B1) 100 mg PO DAILY 04/04/20 04/04/20 History vitamin A 0 unit PO DAILY 04/04/20 04/04/20 History Past Med/Surg History Medical History Acute hepatic encephalopathy Anxiety Chronic back pain Confusion Depression Encephalopathy, hepatic Fusion of spine February 2019 Genital herpes GERD (gastroesophageal reflux disease) Hearing deficit right ear perf eardrum History of alcohol abuse History of anemia History of cirrhosis of liver D/T ALCOHOL History of colon polyps History of hepatitis C Hx of ascites Hx of encephalopathy HEAPTIC Hx of esophageal varices Hx of gynecomastia Hx of thrombocytopenia Hypertension Lethargic Medication reaction Osteoarthritis Portal hypertensive gastropathy Portal vein thrombosis Urinary tract infection history of Surgical History History of lumbar fusion History of tooth extraction all teeth removed History of total right hip arthroplasty 2018 Hx of decompression of ulnar nerve RIGHT Family History Father Diabetes Other No family history of adverse response to anesthesia Social History Smoking Status: Smoker, status unknown Cigarettes Per Day: 1ppd x 2 years; Second Hand Exposure: No; Hx Alcohol Use: No Hx Substance Use: Yes Last Used Substance: Unknown Last Used Substance Other:: 5 months ago Substance Use Type Other:: 2-3 times a month Preferred Language: Indonesian Communication Ability: Effective 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 Beliefs That Will Affect Care: None marital status: Single Current Living Situation: Alone Current Living Situation Comment: [facility] How many Children do You have: 0 Other Information That Helps Us Care for You: No Feels Safe at Home: Yes Safety Concerns: Feels Safe At This Time Assistive Devices: None Review of Systems Review of Systems: As per HPI, all 10 systems reviewed, all other ROS negative Physical Exam Physical Exam: GENERAL: Slightly restless and uncomfortable, coherent but episodic slowed speech, no respiratory distress SKIN: Pallor , warm HEENT: Pale palpebral conjunctivae, no ptosis, dry buccal mucosa NECK : Supple, no tenderness CHEST : Decreased breath sounds , no tenderness HEART : RRR, no obvious murmurs ABDOMEN: Some distention, minimal epigastric tenderness EXTREMITIES : No LE swelling, no LE tenderness, no other conspicuous deformities noted NEUROLOGIC : Coherent, no facial asymmetry, speech slow from time to time, episodic RUE tremors, no other gross focality Results & Data Results & Data ([facility]) Vital Signs (Past 12 Hours) Vital Signs Temp Pulse Resp BP Pulse Ox 04/04/20 21:00 95 H 15 135/68 95 04/04/20 20:49 102 H 21 122/75 99 04/04/20 20:08 97 H 17 172/94 H 100 04/04/20 19:30 94 H 22 175/101 H 98 04/04/20 19:08 91 H 15 101/60 99 04/04/20 19:07 18 99 04/04/20 19:03 96 04/04/20 18:07 36.8 C 94 H 18 155/81 H 98 Laboratory Results Laboratory Results WBC 3.75 K/uL (4.8-10.8) L 04/04/20 18:47 RBC 4.22 M/uL (4.7-6.1) L 04/04/20 18:47 Hgb 14.4 g/dL (14.0-18.0) 04/04/20 18:47 Hct 40.7 % (42-52) L 04/04/20 18:47 MCV 96.4 fL (80-100) 04/04/20 18:47 MCH 34.1 pg (25-34) H 04/04/20 18:47 MCHC 35.4 g/dL (32-36) 04/04/20 18:47 RDW Std Deviation 50.0 fL (36.4-46.3) H 04/04/20 18:47 RDW Coeff of Abhijit 14.2 % (11.5-14.5) 04/04/20 18:47 Plt Count 59 K/uL (130-400) L 04/04/20 18:47 MPV 11.5 fL (7.4-10.4) H 04/04/20 18:47 Immature Gran % (Auto) 0.0 % 04/04/20 18:47 Neut % (Auto) 59.4 % 04/04/20 18:47 Lymph % (Auto) 26.4 % 04/04/20 18:47 Callahan % (Auto) 9.9 % 04/04/20 18:47 Eos % (Auto) 3.5 % 04/04/20 18:47 Baso % (Auto) 0.8 % 04/04/20 18:47 Neut # (Auto) 2.23 K/uL (1.4-6.5) 04/04/20 18:47 Lymph # (Auto) 0.99 K/uL (1.2-3.4) L 04/04/20 18:47 Callahan # (Auto) 0.37 K/uL (0.11-0.59) 04/04/20 18:47 Eos # (Auto) 0.13 K/uL (0-0.5) 04/04/20 18:47 Baso # (Auto) 0.03 K/uL (0-0.2) 04/04/20 18:47 Immature Gran # (Auto) 0.00 K/uL (0.00-0.02) 04/04/20 18:47 PT 12.0 Seconds (9.0-12.0) 04/04/20 18:47 INR 1.2 (0.9-1.1) H 04/04/20 18:47 APTT 25.0 Seconds (21.0-31.0) 04/04/20 18:47 PTT Ratio 1.0 04/04/20 18:47 Sodium 144 mmol/L (136-145) 04/04/20 18:47 Potassium 4.0 mmol/L (3.5-5.1) 04/04/20 18:47 Chloride 113 mmol/L (98-107) H 04/04/20 18:47 Carbon Dioxide 22 mmol/L (21-32) 04/04/20 18:47 Anion Gap 9.0 (3-11) 04/04/20 18:47 BUN 13 mg/dl (7-18) 04/04/20 18:47 Creatinine 0.86 mg/dl (0.6-1.4) 04/04/20 18:47 Est Cr Clr Drug Dosing 91.6 ml/min 04/04/20 18:47 Est GFR ( Amer) 109.2 04/04/20 18:47 Est GFR (Non-Af Amer) 94.3 04/04/20 18:47 BUN/Creatinine Ratio 14.8 (10-20) 04/04/20 18:47 Glucose 83 mg/dl (70-99) 04/04/20 18:47 Lactate 2.4 mmol/L (0.4-2.0) H* 04/04/20 20:38 Calcium 9.2 mg/dl (8.5-10.1) 04/04/20 18:47 Magnesium 2.2 mg/dl (1.8-2.4) 04/04/20 18:47 Total Bilirubin 2.1 mg/dl (0.2-1) H 04/04/20 18:47 AST 60 U/L (15-37) H 04/04/20 18:47 ALT 35 U/L (12-78) 04/04/20 18:47 Alkaline Phosphatase 133 U/L (45-117) H 04/04/20 18:47 Ammonia 92.0 umol/L (11-32) H 04/04/20 18:47 Troponin I < 0.015 ng/ml (0-0.045) 04/04/20 18:47 Total Protein 7.3 gm/dl (6.4-8.2) 04/04/20 18:47 Albumin 3.4 gm/dl (3.4-5.0) 04/04/20 18:47 Globulin 3.9 gm/dl (2.5-4.0) 04/04/20 18:47 Albumin/Globulin Ratio 0.9 (0.9-2) 04/04/20 18:47 Procalcitonin 0.09 ng/ml (0-0.5) 04/04/20 18:47 Urine Color Dark Yellow 04/04/20 19:50 Urine Appearance Clear (Clear) 04/04/20 19:50 Urine pH 7.5 (4.5-7.5) 04/04/20 19:50 Ur Specific [place] 1.023 (1.000-1.030) 04/04/20 19:50 Urine Protein Negative (Negative) 04/04/20 19:50 Urine Glucose (UA) Negative (Negative) 04/04/20 19:50 Urine Ketones Trace (Negative) H 04/04/20 19:50 Urine Blood Negative (Negative) 04/04/20 19:50 Urine Nitrite Positive (Negative) A 04/04/20 19:50 Urine Bilirubin Negative (Negative) 04/04/20 19:50 Urine Urobilinogen Positive (Negative) H 04/04/20 19:50 Ur Leukocyte Esterase Negative (Negative) 04/04/20 19:50 Urine WBC (Auto) 1-5 /hpf (0-5) 04/04/20 19:50 Urine RBC (Auto) 0-4 /hpf (0-4) 04/04/20 19:50 U Hyaline Cast (Auto) 1-5 /lpf (0-5) 04/04/20 19:50 U Epithel Cells (Auto) 20-30 /lpf (0-5) H 04/04/20 19:50 Urine Bacteria (Auto) 2+ (Negative) H 04/04/20 19:50 Ethyl Alcohol mg/dL < 3.0 mg/dl (0-3) 04/04/20 20:38 COVID-19 Eval [facility] Cov[facility] [place] 04/04/20 19:08 SARS-CoV-2, RNA, NAAT NEGATIVE (NEGATIVE) 04/04/20 19:[address] head: No acute intracranial findings. CT abdomen pelvis initial read: Atelectasis. Liver nodularity, cirrhosis. Splenomegaly. Small bowel distention, enteritis versus malabsorption. Unremarkable urinary bladder. No appendicitis. Chest x-ray : No acute cardiopulmonary findings. EKG as per my interpretation: Rate 90, NSR, normal axis, no ischemia, low volt age EKG as per my interpretation :
[2020-04-04] MEDS ORDERED: OPTIRAY 320 100ml IV ONE (23:01)
[2020-04-04] MEDS ORDERED: DICLOFENAC SOD 1% GEL 100 GM TUBE EXT PRN (23:18)
[2020-04-04] MEDS ORDERED: PROMETHAZINE HCL 12.5 MG in SODIUM CHLORIDE 0.9% 50 ML IV PRN (23:18)
[2020-04-05] MEDS: oxyCODONE HCL IR 5 MG TAB (IMMEDIATE RELEASE) PO PRN ×3 (00:35→21:13)
[2020-04-05] MEDS: rifAXIMin 550 MG TABLET PO SCH ×3 (00:36→21:10)
[2020-04-05] MEDS ORDERED: LACTATED RINGER'S 1,000 ML IV ONE ×2 (00:58→01:45)
[2020-04-05 05:42] LABS: Amphetamines+Metham, Urine Neg (Neg); Barbiturates, Urine Neg (Neg); Benzodiazepine, Urine Neg (Neg); Cocaine, Urine Neg (Neg); MDMA (Ecstacy), Urine Neg (Neg); Methadone, Urine Neg (Neg); Opiate, Urine Neg (Neg); Phencyclidine, Urine Neg (Neg)
[2020-04-05 05:42] LABS: Hematocrit (blood only) 34.5 % (42-52); Mean Corpuscular Hemoglobin 33.5 pg (25-34); Mean Corpuscular Hgb Conc 34.8 g/dL (32-36); Mean Corpuscular Volume 96.4 fL (80-100); RDW Coefficient of Variation 14.1 % (11.5-14.5); Red Blood Count 3.58 M/uL (4.7-6.1); White Blood Count 3.82 K/uL (4.8-10.8)
[2020-04-05 06:00] LABS: Albumin Level 2.9 gm/dl (3.4-5.0); BUN Creatinine Ratio 14.4 (10-20); Calcium 8.5 mg/dl (8.5-10.1); Creatinine Clr Calc Pharmacy 125.1 ml/min; Est GFR (African American) 123.3; Est GFR (Non-African American) 106.4; Mean Platelet Volume 11.4 fL (7.4-10.4); Platelet Count 59 K/uL (130-400); Potassium 3.7 mmol/L (3.5-5.1)
[2020-04-05 06:14] LABS: Albumin Globulin Ratio 0.9 (0.9-2); Bilirubin,Total 1.9 mg/dl (0.2-1); Globulin 3.1 gm/dl (2.5-4.0)
[2020-04-05 06:22] LABS: Basophils # (auto) 0.03 K/uL (0-0.2); Basophils % (auto) 0.8 %; Eosinophils # (auto) 0.18 K/uL (0-0.5); Eosinophils % (auto) 4.7 %; Immature Granulocytes # (auto) 0.01 K/uL (0.00-0.02); Immature Granulocytes % (auto) 0.3 %; Lymphocytes # (auto) 1.39 K/uL (1.2-3.4); Lymphocytes % (auto) 36.4 %; Monocytes # (auto) 0.51 K/uL (0.11-0.59); Monocytes % (auto) 13.4 %; Neutrophils % (auto) 44.4 %
--- NOTE | 2020-04-05 08:28 | CT Scan Report ---
CT OF THE ABDOMEN AND PELVIS WITH CONTRAST CLINICAL HISTORY: Abdominal pain. COMPARISON STUDY: CT of the abdomen and pelvis January 28, 2020. TECHNIQUE: Following IV administration of 94 mL of Optiray-320, axial images of the abdomen and pelvi s were obtained from the lung bases to the proximal femurs. Images were reviewed in the axial, sagitt al, and coronal planes. IV contrast was administered without complication. Automated exposure contro l was utilized for the study. A dose lowering technique was utilized adhering to the principles of A JANET. CT DOSE: 561.70 mGy.cm FINDINGS: Lung bases are unremarkable. Pericardial calcification is chronic. No pneumatosis, free air or portal venous gas is present. The liver is cirrhotic. Sensitivity for detection of hepatic lesion s is diminished on this portal venous phase exam but none are identified. Recanalized umbilical vein is noted. Splenomegaly is again noted. No evidence for ascites. Varices are again noted. The adrenal glands, kidneys and pancreas are normal. There is no biliary or pancreatic ductal dilatation. No hydr onephrosis. There is no evidence for a bowel obstruction. The appendix is normal. The caliber and wal l thickness of small and large bowel are normal. Right hip arthroplasty is noted. There is chronic de formity of the left femoral head with flattening. There may be avascular necrosis of the left femoral head. Postoperative findings within lumbar spine is similar to CT of March 16, 2020. There is an L 3-L4 posterior decompression with bilateral pedicle screw fusion. Lucency surrounding pedicle screws again noted. Incompletely healed fractures of the right pedicle of L4 and left pars interarticularis of L4 noted. Old L5 pars defects. Appearance is unchanged. IMPRESSION: 1. No acute process within the abdomen or pelvis. 2. Cirrhosis with manifestations of portal hypertension, as described above. 3. No bowel obstruction. Normal appendix. No bowel wall thickening. ACT 112: Negative or not required by law. Electronically signed by: Leonardo Brewster M.D. 04/05/2020 8:27 AM
[2020-04-05] MEDS: THIAMINE HCL 100 MG TAB PO SCH (08:42)
[2020-04-05] MEDS: CYANOCOBALAMIN (VITAMIN B-12) 100 MCG TABLET PO SCH (08:42)
[2020-04-05] MEDS: DULoxetine HCL 30 MG CAP PO SCH (08:42)
--- NOTE | 2020-04-05 09:11 | Gastrointestinal Consultation ---
Date of Consultation April 05, 2020 Assessment & Plan (1) Acute hepatic encephalopathy: 60 y/o male with h/o ETOH cirrhosis with ascites, hepatic encephalopathy, varices, PHG, admitted with mental status changes, confusion, much improved today on lactulose. Being treated for UTI w. ABX - Stressed importance of continuing Lactulose 30 mg TID, aim for 3-4 loose BMs daily; pt agrees to comply with this - ABX for UTI as per primary team - Monitor LFTs, INR, CBC, BMP - Continue rifaximin - Continue Lasix - Continue Aldactone - Continue daily PPI - Encouraged to continuing to abstain from ETOH, illicit drugs - APAP no more than 2g daily - Low Na diet < 2 gm daily - Daily weights - Will sign off. Thank you for allowing us to participate in the care of this patient. Please call with any acute changes, questions or concerns. Please see addendum below with additional recommendation from my supervising physician. Supervising Physician Co-Signing Physician Notes I performed a history and physical examination of the patient today, including specifically on physical exam - soft abdomen. I have discussed the patient's management with the advanced practitioner. Please refer to the nurse practitioner's note for the documented findings and plan of care. HE resolved. Follow up as OP in GI clinic. History of Present Illness Reason for Consultation: HE Requesting Physician: Deep Attending Physician: Elizabeth Adame MD History of Present Illness 60 year old male w hx of ETOH cirrhosis, complicated by hepatic encephalopathy, esophageal varices, ascites, portal HTN, admitted yesterday with mental status changes, confusion - UTI. Started on Lactulose and ceftriaxone. This AM denies abd pain. No nausea,vomiting. Just finished breakfast. Moving bowels. Denies black or bloody stools. Is awake, oriented to person, place, year but not month. Allergies Allergy/AdvReac Type Severity Reaction Status Date / Time No Known Allergies Allergy Verified 04/04/20 20:18 Home Medications Medication Instructions Recorded Confirmed Type diclofenac sodium 2 g TOPICAL BID PRN 02/29/20 04/04/20 History cyanocobalamin (vitamin B-12) 100 mcg PO DAILY 04/04/20 04/04/20 History duloxetine 30 mg PO DAILY 04/04/20 04/04/20 History furosemide 40 mg PO BID 04/04/20 04/04/20 History rifaximin [Xifaxan] 550 mg PO BID 04/04/20 04/04/20 History spironolactone 100 mg PO BID 04/04/20 04/04/20 History thiamine mononitrate (vit B1) 100 mg PO DAILY 04/04/20 04/04/20 History vitamin A 0 unit PO DAILY 04/04/20 04/04/20 History Patient History Medical History Acute hepatic encephalopathy Anxiety Chronic back pain Confusion Depression Encephalopathy, hepatic Fusion of spine February 2019 Genital herpes GERD (gastroesophageal reflux disease) Hearing deficit right ear perf eardrum History of alcohol abuse History of anemia History of cirrhosis of liver D/T ALCOHOL History of colon polyps History of hepatitis C Hx of ascites Hx of encephalopathy HEAPTIC Hx of esophageal varices Hx of gynecomastia Hx of thrombocytopenia Hypertension Lethargic Medication reaction Osteoarthritis Portal hypertensive gastropathy Portal vein thrombosis Urinary tract infection history of Surgical History History of lumbar fusion History of tooth extraction all teeth removed History of total right hip arthroplasty 2018 Hx of decompression of ulnar nerve RIGHT Family History Father Diabetes Other No family history of adverse response to anesthesia Social History Smoking Status: Smoker, status unknown Cigarettes Per Day: 1ppd x 2 years; Second Hand Exposure: No; Hx Alcohol Use: No Hx Substance Use: Yes Last Used Substance: Unknown Last Used Substance Other:: 5 months ago Substance Use Type Other:: 2-3 times a month Preferred Language: Greek Communication Ability: Effective Director Of Casino Required: No Beliefs That Will Affect Care: None marital status: Single Current Living Situation: Alone Current Living Situation Comment: [facility] How many Children do You have: 0 Other Information That Helps Us Care for You: No Feels Safe at Home: Yes Safety Concerns: Feels Safe At This Time Assistive Devices: None Review of Systems Constitutional: no fever, no chills and no fatigue Respiratory: no cough and no dyspnea Cardiovascular: no chest pain and no dyspnea Gastrointestinal: no abdominal pain, no nausea, no coffee ground emesis, no blood in stools and no melena Physical Exam Constitutional: + not well developed, + not well nourished, no acute distress and not ill appearing Neck: trachea midline Respiratory: normal respiratory effort, lungs clear to auscultation Gastrointestinal (Abdomen): Percussion/Palpation: abdomen soft; abdomen nontender, no guarding and abdomen not rigid Skin: no rashes, warm and dry Results & Data ([facility]) Vital Signs (Past 12 Hours) Vital Signs Temp Pulse Pulse Resp BP BP Pulse Ox 04/05/20 07:41 36.6 C 86 18 119/75 98 04/05/20 03:31 36.6 C 91 H 19 169/75 H 99 04/04/20 23:21 36.6 C 77 18 148/71 H 100 04/04/20 22:48 74 20 128/75 Laboratory Results 04/05/20 04/05/20 04/05/20 Range/Units 05:33 05:33 05:33 WBC 3.82 L (4.8-10.8) K/uL RBC 3.58 L (4.7-6.1) M/uL Hgb 12.0 L (14.0-18.0) g/dL Hct 34.5 L (42-52) % MCV 96.4 (80-100) fL MCH 33.5 (25-34) pg MCHC 34.8 (32-36) g/dL RDW Std Deviation 49.0 H (36.4-46.3) fL RDW Coeff of Abhijit 14.1 (11.5-14.5) % Plt Count 59 L (130-400) K/uL MPV 11.4 H (7.4-10.4) fL Immature Gran % (Auto) 0.3 % Neut % (Auto) 44.4 % Lymph % (Auto) 36.4 % Guthrie % (Auto) 13.4 % Eos % (Auto) 4.7 % Baso % (Auto) 0.8 % Neut # (Auto) 1.70 (1.4-6.5) K/uL Lymph # (Auto) 1.39 (1.2-3.4) K/uL Guthrie # (Auto) 0.51 (0.11-0.59) K/uL Eos # (Auto) 0.18 (0-0.5) K/uL Baso # (Auto) 0.03 (0-0.2) K/uL Immature Gran # (Auto) 0.01 (0.00-0.02) K/uL PT (9.0-12.0) Seconds INR (0.9-1.1) APTT (21.0-31.0) Seconds PTT Ratio Sodium 142 (136-145) mmol/L Potassium 3.7 (3.5-5.1) mmol/L Chloride 112 H (98-107) mmol/L Carbon Dioxide 22 (21-32) mmol/L Anion Gap 8.0 (3-11) BUN 9 (7-18) mg/dl Creatinine 0.64 (0.6-1.4) mg/dl Est Cr Clr Drug Dosing 125.1 ml/min Est GFR ( Amer) 123.3 Est GFR (Non-Af Amer) 106.4 BUN/Creatinine Ratio 14.4 (10-20) Glucose 84 (70-99) mg/dl Lactate 1.5 (0.4-2.0) mmol/L Calcium 8.5 (8.5-10.1) mg/dl Magnesium (1.8-2.4) mg/dl Total Bilirubin 1.9 H (0.2-1) mg/dl AST 46 H (15-37) U/L ALT 27 (12-78) U/L Alkaline Phosphatase 111 (45-117) U/L Ammonia (11-32) umol/L Troponin I (0-0.045) ng/ml Total Protein 6.0 L (6.4-8.2) gm/dl Albumin 2.9 L (3.4-5.0) gm/dl Globulin 3.1 (2.5-4.0) gm/dl Albumin/Globulin Ratio 0.9 (0.9-2) Procalcitonin (0-0.5) ng/ml Urine Color Urine Appearance (Clear) Urine pH (4.5-7.5) Ur Specific Addison (1.000-1.030) Urine Protein (Negative) Urine Glucose (UA) (Negative) Urine Ketones (Negative) Urine Blood (Negative) Urine Nitrite (Negative) Urine Bilirubin (Negative) Urine Urobilinogen (Negative) Ur Leukocyte Esterase (Negative) Urine WBC (Auto) (0-5) /hpf Urine RBC (Auto) (0-4) /hpf U Hyaline Cast (Auto) (0-5) /lpf U Epithel Cells (Auto) (0-5) /lpf Urine Bacteria (Auto) (Negative) Urine Opiates Screen (Neg) Ur Methadone, Qual (Neg) Urine Barbiturates (Neg) Ur Phencyclidine (PCP) (Neg) U Amphetamin/Meth Scrn (Neg) MDMA (Ecstasy) Screen (Neg) U Benzodiazepines Scrn (Neg) Ur Cocaine Metabolite (Neg) U Marijuana (THC) Screen (Neg) Ethyl Alcohol mg/dL (0-3) mg/dl COVID-19 Eval Order SARS-CoV-2, RNA, NAAT (NEGATIVE) 04/05/20 04/05/20 04/04/20 Range/Units 05:14 00:18 20:38 WBC (4.8-10.8) K/uL RBC (4.7-6.1) M/uL Hgb (14.0-18.0) g/dL Hct (42-52) % MCV (80-100) fL MCH (25-34) pg MCHC (32-36) g/dL RDW Std Deviation (36.4-46.3) fL RDW Coeff of Abhijit (11.5-14.5) % Plt Count (130-400) K/uL MPV (7.4-10.4) fL Immature Gran % (Auto) % Neut % (Auto) % Lymph % (Auto) % Guthrie % (Auto) % Eos % (Auto) % Baso % (Auto) % Neut # (Auto) (1.4-6.5) K/uL Lymph # (Auto) (1.2-3.4) K/uL Guthrie # (Auto) (0.11-0.59) K/uL Eos # (Auto) (0-0.5) K/uL Baso # (Auto) (0-0.2) K/uL Immature Gran # (Auto) (0.00-0.02) K/uL PT (9.0-12.0) Seconds INR (0.9-1.1) APTT (21.0-31.0) Seconds PTT Ratio Sodium (136-145) mmol/L Potassium (3.5-5.1) mmol/L Chloride (98-107) mmol/L Carbon Dioxide (21-32) mmol/L Anion Gap (3-11) BUN (7-18) mg/dl Creatinine (0.6-1.4) mg/dl Est Cr Clr Drug Dosing ml/min Est GFR ( Amer) Est GFR (Non-Af Amer) BUN/Creatinine Ratio (10-20) Glucose (70-99) mg/dl Lactate 2.7 H* 2.4 H* (0.4-2.0) mmol/L Calcium (8.5-10.1) mg/dl Magnesium (1.8-2.4) mg/dl Total Bilirubin (0.2-1) mg/dl AST (15-37) U/L ALT (12-78) U/L Alkaline Phosphatase (45-117) U/L Ammonia (11-32) umol/L Troponin I (0-0.045) ng/ml Total Protein (6.4-8.2) gm/dl Albumin (3.4-5.0) gm/dl Globulin (2.5-4.0) gm/dl Albumin/Globulin Ratio (0.9-2) Procalcitonin (0-0.5) ng/ml Urine Color Urine Appearance (Clear) Urine pH (4.5-7.5) Ur Specific Addison (1.000-1.030) Urine Protein (Negative) Urine Glucose (UA) (Negative) Urine Ketones (Negative) Urine Blood (Negative) Urine Nitrite (Negative) Urine Bilirubin (Negative) Urine Urobilinogen (Negative) Ur Leukocyte Esterase (Negative) Urine WBC (Auto) (0-5) /hpf Urine RBC (Auto) (0-4) /hpf U Hyaline Cast (Auto) (0-5) /lpf U Epithel Cells (Auto) (0-5) /lpf Urine Bacteria (Auto) (Negative) Urine Opiates Screen Neg (Neg) Ur Methadone, Qual Neg (Neg) Urine Barbiturates Neg (Neg) Ur Phencyclidine (PCP) Neg (Neg) U Amphetamin/Meth Scrn Neg (Neg) MDMA (Ecstasy) Screen Neg (Neg) U Benzodiazepines Scrn Neg (Neg) Ur Cocaine Metabolite Neg (Neg) U Marijuana (THC) Screen Neg (Neg) Ethyl Alcohol mg/dL (0-3) mg/dl COVID-19 Eval Order SARS-CoV-2, RNA, NAAT (NEGATIVE) 04/04/20 04/04/20 04/04/20 Range/Units 20:38 19:50 19:08 WBC (4.8-10.8) K/uL RBC (4.7-6.1) M/uL Hgb (14.0-18.0) g/dL Hct (42-52) % MCV (80-100) fL MCH (25-34) pg MCHC (32-36) g/dL RDW Std Deviation (36.4-46.3) fL RDW Coeff of Abhijit (11.5-14.5) % Plt Count (130-400) K/uL MPV (7.4-10.4) fL Immature Gran % (Auto) % Neut % (Auto) % Lymph % (Auto) % Guthrie % (Auto) % Eos % (Auto) % Baso % (Auto) % Neut # (Auto) (1.4-6.5) K/uL Lymph # (Auto) (1.2-3.4) K/uL Guthrie # (Auto) (0.11-0.59) K/uL Eos # (Auto) (0-0.5) K/uL Baso # (Auto) (0-0.2) K/uL Immature Gran # (Auto) (0.00-0.02) K/uL PT (9.0-12.0) Seconds INR (0.9-1.1) APTT (21.0-31.0) Seconds PTT Ratio Sodium (136-145) mmol/L Potassium (3.5-5.1) mmol/L Chloride (98-107) mmol/L Carbon Dioxide (21-32) mmol/L Anion Gap (3-11) BUN (7-18) mg/dl Creatinine (0.6-1.4) mg/dl Est Cr Clr Drug Dosing ml/min Est GFR ( Amer) Est GFR (Non-Af Amer) BUN/Creatinine Ratio (10-20) Glucose (70-99) mg/dl Lactate (0.4-2.0) mmol/L Calcium (8.5-10.1) mg/dl Magnesium (1.8-2.4) mg/dl Total Bilirubin (0.2-1) mg/dl AST (15-37) U/L ALT (12-78) U/L Alkaline Phosphatase (45-117) U/L Ammonia (11-32) umol/L Troponin I (0-0.045) ng/ml Total Protein (6.4-8.2) gm/dl Albumin (3.4-5.0) gm/dl Globulin (2.5-4.0) gm/dl Albumin/Globulin Ratio (0.9-2) Procalcitonin (0-0.5) ng/ml Urine Color Dark Yellow Urine Appearance Clear (Clear) Urine pH 7.5 (4.5-7.5) Ur Specific Addison 1.023 (1.000-1.030) Urine Protein Negative (Negative) Urine Glucose (UA) Negative (Negative) Urine Ketones Trace H (Negative) Urine Blood Negative (Negative) Urine Nitrite Positive A (Negative) Urine Bilirubin Negative (Negative) Urine Urobilinogen Positive H (Negative) Ur Leukocyte Esterase Negative (Negative) Urine WBC (Auto) 1-5 (0-5) /hpf Urine RBC (Auto) 0-4 (0-4) /hpf U Hyaline Cast (Auto) 1-5 (0-5) /lpf U Epithel Cells (Auto) 20-30 H (0-5) /lpf Urine Bacteria (Auto) 2+ H (Negative) Urine Opiates Screen (Neg) Ur Methadone, Qual (Neg) Urine Barbiturates (Neg) Ur Phencyclidine (PCP) (Neg) U Amphetamin/Meth Scrn (Neg) MDMA (Ecstasy) Screen (Neg) U Benzodiazepines Scrn (Neg) Ur Cocaine Metabolite (Neg) U Marijuana (THC) Screen (Neg) Ethyl Alcohol mg/dL < 3.0 (0-3) mg/dl COVID-19 Eval Order SARS-CoV-2, RNA, NAAT NEGATIVE (NEGATIVE) 04/04/20 04/04/20 04/04/20 Range/Units 19:08 18:47 18:47 WBC (4.8-10.8) K/uL RBC (4.7-6.1) M/uL Hgb (14.0-18.0) g/dL Hct (42-52) % MCV (80-100) fL MCH (25-34) pg MCHC (32-36) g/dL RDW Std Deviation (36.4-46.3) fL RDW Coeff of Abhijit (11.5-14.5) % Plt Count (130-400) K/uL MPV (7.4-10.4) fL Immature Gran % (Auto) % Neut % (Auto) % Lymph % (Auto) % Guthrie % (Auto) % Eos % (Auto) % Baso % (Auto) % Neut # (Auto) (1.4-6.5) K/uL Lymph # (Auto) (1.2-3.4) K/uL Guthrie # (Auto) (0.11-0.59) K/uL Eos # (Auto) (0-0.5) K/uL Baso # (Auto) (0-0.2) K/uL Immature Gran # (Auto) (0.00-0.02) K/uL PT (9.0-12.0) Seconds INR (0.9-1.1) APTT (21.0-31.0) Seconds PTT Ratio Sodium (136-145) mmol/L Potassium (3.5-5.1) mmol/L Chloride (98-107) mmol/L Carbon Dioxide (21-32) mmol/L Anion Gap (3-11) BUN (7-18) mg/dl Creatinine (0.6-1.4) mg/dl Est Cr Clr Drug Dosing ml/min Est GFR ( Amer) Est GFR (Non-Af Amer) BUN/Creatinine Ratio (10-20) Glucose (70-99) mg/dl Lactate (0.4-2.0) mmol/L Calcium (8.5-10.1) mg/dl Magnesium (1.8-2.4) mg/dl Total Bilirubin (0.2-1) mg/dl AST (15-37) U/L ALT (12-78) U/L Alkaline Phosphatase (45-117) U/L Ammonia 92.0 H (11-32) umol/L Troponin I (0-0.045) ng/ml Total Protein (6.4-8.2) gm/dl Albumin (3.4-5.0) gm/dl Globulin (2.5-4.0) gm/dl Albumin/Globulin Ratio (0.9-2) Procalcitonin 0.09 (0-0.5) ng/ml Urine Color Urine Appearance (Clear) Urine pH (4.5-7.5) Ur Specific Addison (1.000-1.030) Urine Protein (Negative) Urine Glucose (UA) (Negative) Urine Ketones (Negative) Urine Blood (Negative) Urine Nitrite (Negative) Urine Bilirubin (Negative) Urine Urobilinogen (Negative) Ur Leukocyte Esterase (Negative) Urine WBC (Auto) (0-5) /hpf Urine RBC (Auto) (0-4) /hpf U Hyaline Cast (Auto) (0-5) /lpf U Epithel Cells (Auto) (0-5) /lpf Urine Bacteria (Auto) (Negative) Urine Opiates Screen (Neg) Ur Methadone, Qual (Neg) Urine Barbiturates (Neg) Ur Phencyclidine (PCP) (Neg) U Amphetamin/Meth Scrn (Neg) MDMA (Ecstasy) Screen (Neg) U Benzodiazepines Scrn (Neg) Ur Cocaine Metabolite (Neg) U Marijuana (THC) Screen (Neg) Ethyl Alcohol mg/dL (0-3) mg/dl COVID-19 Eval Order Covid19 IDNow atMDEC SARS-CoV-2, RNA, NAAT (NEGATIVE) 04/04/20 04/04/20 04/04/20 Range/Units 18:47 18:47 18:47 WBC (4.8-10.8) K/uL RBC (4.7-6.1) M/uL Hgb (14.0-18.0) g/dL Hct (42-52) % MCV (80-100) fL MCH (25-34) pg MCHC (32-36) g/dL RDW Std Deviation (36.4-46.3) fL RDW Coeff of Abhijit (11.5-14.5) % Plt Count (130-400) K/uL MPV (7.4-10.4) fL Immature Gran % (Auto) % Neut % (Auto) % Lymph % (Auto) % Guthrie % (Auto) % Eos % (Auto) % Baso % (Auto) % Neut # (Auto) (1.4-6.5) K/uL Lymph # (Auto) (1.2-3.4) K/uL Guthrie # (Auto) (0.11-0.59) K/uL Eos # (Auto) (0-0.5) K/uL Baso # (Auto) (0-0.2) K/uL Immature Gran # (Auto) (0.00-0.02) K/uL PT 12.0 (9.0-12.0) Seconds INR 1.2 H (0.9-1.1) APTT 25.0 (21.0-31.0) Seconds PTT Ratio 1.0 Sodium 144 (136-145) mmol/L Potassium 4.0 (3.5-5.1) mmol/L Chloride 113 H (98-107) mmol/L Carbon Dioxide 22 (21-32) mmol/L Anion Gap 9.0 (3-11) BUN 13 (7-18) mg/dl Creatinine 0.86 (0.6-1.4) mg/dl Est Cr Clr Drug Dosing 91.6 ml/min Est GFR ( Amer) 109.2 Est GFR (Non-Af Amer) 94.3 BUN/Creatinine Ratio 14.8 (10-20) Glucose 83 (70-99) mg/dl Lactate 2.4 H* (0.4-2.0) mmol/L Calcium 9.2 (8.5-10.1) mg/dl Magnesium 2.2 (1.8-2.4) mg/dl Total Bilirubin 2.1 H (0.2-1) mg/dl AST 60 H (15-37) U/L ALT 35 (12-78) U/L Alkaline Phosphatase 133 H (45-117) U/L Ammonia (11-32) umol/L Troponin I < 0.015 (0-0.045) ng/ml Total Protein 7.3 (6.4-8.2) gm/dl Albumin 3.4 (3.4-5.0) gm/dl Globulin 3.9 (2.5-4.0) gm/dl Albumin/Globulin Ratio 0.9 (0.9-2) Procalcitonin (0-0.5) ng/ml Urine Color Urine Appearance (Clear) Urine pH (4.5-7.5) Ur Specific Addison (1.000-1.030) Urine Protein (Negative) Urine Glucose (UA) (Negative) Urine Ketones (Negative) Urine Blood (Negative) Urine Nitrite (Negative) Urine Bilirubin (Negative) Urine Urobilinogen (Negative) Ur Leukocyte Esterase (Negative) Urine WBC (Auto) (0-5) /hpf Urine RBC (Auto) (0-4) /hpf U Hyaline Cast (Auto) (0-5) /lpf U Epithel Cells (Auto) (0-5) /lpf Urine Bacteria (Auto) (Negative) Urine Opiates Screen (Neg) Ur Methadone, Qual (Neg) Urine Barbiturates (Neg) Ur Phencyclidine (PCP) (Neg) U Amphetamin/Meth Scrn (Neg) MDMA (Ecstasy) Screen (Neg) U Benzodiazepines Scrn (Neg) Ur Cocaine Metabolite (Neg) U Marijuana (THC) Screen (Neg) Ethyl Alcohol mg/dL (0-3) mg/dl COVID-19 Eval Order SARS-CoV-2, RNA, NAAT (NEGATIVE) 04/04/20 Range/Units 18:47 WBC 3.75 L (4.8-10.8) K/uL RBC 4.22 L (4.7-6.1) M/uL Hgb 14.4 (14.0-18.0) g/dL Hct 40.7 L (42-52) % MCV 96.4 (80-100) fL MCH 34.1 H (25-34) pg MCHC 35.4 (32-36) g/dL RDW Std Deviation 50.0 H (36.4-46.3) fL RDW Coeff of Abhijit 14.2 (11.5-14.5) % Plt Count 59 L (130-400) K/uL MPV 11.5 H (7.4-10.4) fL Immature Gran % (Auto) 0.0 % Neut % (Auto) 59.4 % Lymph % (Auto) 26.4 % Guthrie % (Auto) 9.9 % Eos % (Auto) 3.5 % Baso % (Auto) 0.8 % Neut # (Auto) 2.23 (1.4-6.5) K/uL Lymph # (Auto) 0.99 L (1.2-3.4) K/uL Guthrie # (Auto) 0.37 (0.11-0.59) K/uL Eos # (Auto) 0.13 (0-0.5) K/uL Baso # (Auto) 0.03 (0-0.2) K/uL Immature Gran # (Auto) 0.00 (0.00-0.02) K/uL PT (9.0-12.0) Seconds INR (0.9-1.1) APTT (21.0-31.0) Seconds PTT Ratio Sodium (136-145) mmol/L Potassium (3.5-5.1) mmol/L Chloride (98-107) mmol/L Carbon Dioxide (21-32) mmol/L Anion Gap (3-11) BUN (7-18) mg/dl Creatinine (0.6-1.4) mg/dl Est Cr Clr Drug Dosing ml/min Est GFR ( Amer) Est GFR (Non-Af Amer) BUN/Creatinine Ratio (10-20) Glucose (70-99) mg/dl Lactate (0.4-2.0) mmol/L Calcium (8.5-10.1) mg/dl Magnesium (1.8-2.4) mg/dl Total Bilirubin (0.2-1) mg/dl AST (15-37) U/L ALT (12-78) U/L Alkaline Phosphatase (45-117) U/L Ammonia (11-32) umol/L Troponin I (0-0.045) ng/ml Total Protein (6.4-8.2) gm/dl Albumin (3.4-5.0) gm/dl Globulin (2.5-4.0) gm/dl Albumin/Globulin Ratio (0.9-2) Procalcitonin (0-0.5) ng/ml Urine Color Urine Appearance (Clear) Urine pH (4.5-7.5) Ur Specific Addison (1.000-1.030) Urine Protein (Negative) Urine Glucose (UA) (Negative) Urine Ketones (Negative) Urine Blood (Negative) Urine Nitrite (Negative) Urine Bilirubin (Negative) Urine Urobilinogen (Negative) Ur Leukocyte Esterase (Negative) Urine WBC (Auto) (0-5) /hpf Urine RBC (Auto) (0-4) /hpf U Hyaline Cast (Auto) (0-5) /lpf U Epithel Cells (Auto) (0-5) /lpf Urine Bacteria (Auto) (Negative) Urine Opiates Screen (Neg) Ur Methadone, Qual (Neg) Urine Barbiturates (Neg) Ur Phencyclidine (PCP) (Neg) U Amphetamin/Meth Scrn (Neg) MDMA (Ecstasy) Screen (Neg) U Benzodiazepines Scrn (Neg) Ur Cocaine Metabolite (Neg) U Marijuana (THC) Screen (Neg) Ethyl Alcohol mg/dL (0-3) mg/dl COVID-19 Eval Order SARS-CoV-2, RNA, NAAT (NEGATIVE)
[2020-04-05] MEDS: LACTULOSE SYRUP 30 GM/45 ML UDP PO SCH ×3 (09:16→21:10)
--- NOTE | 2020-04-05 14:01 | Electrocardiogram Report ---
Test Reason : Blood Pressure : / mmHG Vent. Rate : 092 BPM Atrial Rate : 092 BPM P-R Int : 188 ms QRS Dur : 092 ms QT Int : 394 ms P-R-T Axes : 070 054 061 degrees QTc Int : 487 ms Normal sinus rhythm Low voltage QRS Prolonged QT Abnormal ECG When compared with ECG of 29-FEB-2020 15:41, No significant change was found Confirmed by Gordy Pinto ([id number]) on 04/05/2020 2:01:15 PM Referred By: REFERRED SELF Confirmed By:Gordy Pinto
--- NOTE | 2020-04-05 16:04 | Hospitalist Progress Note ---
Date of Service April 05, 2020 Assessment & Plan (1) Acute hepatic encephalopathy: Possible related to hepatic encephalopathy VS UTI Urine tox is negative. Elevated ammonia level on admission 92 CT head showed no acute intracranial abnormality gastro on board Continue Lactulose 30mg TID and Rifaximin 550 mg BID UTI UA positive for nitrite and bacteria urine cx pending Continue IV abx with Ceftriaxone Chronic back pain: Intermittent narcotic use with oxycodone that is not consistently written daily for use per PDMP data. Removed oxycodone from home med list so we don't become confused. This is given to him very intermittently. The patient was recently seen by Dr. Bauer (ortho spine surgeon) in mid-Feb. There is some concern for hardware failure with plan to pursue additional imaging with L-spine MRI wo contrast and CT scan wo contrast as the patient appears to be quite limited by this. He requested to see Dr. Bauer while admitting in the hospital Continue PT/OT eval On Oxycodone PRN Will consider to avoid taking too much narcotic due to intermittent confusion Alcoholic cirrhosis: Patient reports abstinence from alcohol for 6 years. GI on board and Lactulose increased to 30mg TID and Rifaximin Will need outpatient follow up with GI Esophageal varices: Due chronic portal hypertension. No evidence of GI bleeding Depression with anxiety: Continue duloxetine per home regimen. Stable Tobacco abuse: Declines nicotine replacement today. Counseling on tobacco cessation Thrombocytopenia: Mostly due to chronic liver cirrhosis Platelet stable at 59 DVT prophylaxis: SCDs/ambulation- contraindicated in setting of thrombocytopenia Full Code Admission and Anticipated Discharge Date Admission Date: April 04, 2020 Subjective Pt was seen and examined for follow up of confusion Lying in bed with no distress watching TV Pt said that he feels much better He did not want to take too much lactulose because he had multiple episodes of diarrhea last night about 8-9 times He said that he only has 1 BM so far He was walking in the hallway with therapy Denies any chest pain, palpitation, dizziness and fever Physical Exam Physical Exam: General- No acute distress Head- atraumatic Eyes- PERRL, EOMI, ENT- oropharynx clear Neck- supple, no JVD Lungs- clear to auscultation Heart- regular rhythm; no murmur Abdomen- normal bowel sounds, soft, nontender Extremities- no calf tenderness Neuro- alert, oriented x 3; PERRL, EOMI; no facial palsy; no dysarthria Skin- warm & dry Results & Data Results & Data ([facility]) Vital Signs (Past 12 Hours) Vital Signs Temp Pulse Pulse Resp BP Pulse Ox 04/05/20 14:53 36.5 C 68 20 148/68 H 96 04/05/20 13:14 96 H 04/05/20 11:40 36.8 C 75 18 128/73 98 04/05/20 07:41 36.6 C 86 18 119/75 98
[2020-04-05] MEDS ORDERED: cefTRIAXone SODIUM 2,000 MG in DEXTROSE 5% 50 ML IV SCH (20:30)
[2020-04-05] MEDS: LIDOCAINE 5% 1 PATCH TD SCH (21:10)
[2020-04-05] MEDS ORDERED: COUGH DROP (SUGAR FREE) LOZ 24 LOZ/1 BOX BUCCAL STA (23:15)
[2020-04-06 07:55] LABS: Hemoglobin 11.1 g/dL (14.0-18.0); Mean Corpuscular Hemoglobin 33.3 pg (25-34); Mean Corpuscular Hgb Conc 34.7 g/dL (32-36); Mean Corpuscular Volume 96.1 fL (80-100); RDW Coefficient of Variation 13.8 % (11.5-14.5); RDW Standard Deviation 48.3 fL (36.4-46.3); Red Blood Count 3.33 M/uL (4.7-6.1); White Blood Count 2.31 K/uL (4.8-10.8)
[2020-04-06 08:07] LABS: Mean Platelet Volume 11.7 fL (7.4-10.4); Platelet Count 42 K/uL (130-400)
[2020-04-06 08:24] LABS: Albumin Level 2.6 gm/dl (3.4-5.0); BUN Creatinine Ratio 17.1 (10-20); Calcium 8.5 mg/dl (8.5-10.1); Est GFR (Non-African American) 107.8
[2020-04-06 08:27] LABS: Albumin Globulin Ratio 0.9 (0.9-2); Bilirubin,Total 1.4 mg/dl (0.2-1); Globulin 2.9 gm/dl (2.5-4.0); Total Protein 5.5 gm/dl (6.4-8.2)
[2020-04-06] MEDS: CYANOCOBALAMIN (VITAMIN B-12) 100 MCG TABLET PO SCH (08:34)
[2020-04-06] MEDS: THIAMINE HCL 100 MG TAB PO SCH (08:34)
[2020-04-06] MEDS: DULoxetine HCL 30 MG CAP PO SCH (08:34)
[2020-04-06] MEDS: LACTULOSE SYRUP 30 GM/45 ML UDP PO SCH ×2 (08:34→13:37)
[2020-04-06] MEDS: rifAXIMin 550 MG TABLET PO SCH (08:34)
[2020-04-06] MEDS: oxyCODONE HCL IR 5 MG TAB (IMMEDIATE RELEASE) PO PRN (09:26)
--- NOTE | 2020-04-06 11:40 | Consultation ---
Date of Consultation April 06, 2020 Assessment & Plan (1) History of lumbar fusion: Case has been discussed and reviewed with Dr. Bauer. At this point time we will order a rigid LSO brace today. My recommendation is that he wear this with any type of ambulation or activity. Does not need to wear when sitting or lying down. This is for comfort measure only. There are no acute emergent surgical indications. It does appear to be to be a combination of factors of hardware lucency and a chronic pars defect of L5 which certainly could be contributing to some of his pain as well. He is going to keep his appointment with me in 2 days and we will discuss more detailed plan with possible revision surgery. Obviously medically he needs to be optimized before this can take place. Orthopedically stable for discharge from my standpoint. Supervising Physician Co-Signing Physician Notes Dr. Viraj Bauer History of Present Illness Is a pleasant 60-year-old gentleman well-known to us that we are asked to see in consultation regarding his lumbar spine. I have personally seen this patient about 3 to 4 weeks ago in our office for same complaints. He is status post posterior lumbar decompression and fusion by Dr.'s Newman in February 2019. Unfortunately short time thereafter Dr.' Newman left the area. Patient reports he has had no follow-up for his lumbar spine since. He has had chronic pain ever since. Pain is located on the lumbar area down the right buttock, right groin, right anterior lateral thigh to his knee. He also reports chronic numbness from the left knee distally to the ankle. He alternates between a scooter, walker, cane for ambulation. Any type of ambulation reproduces his pain. He is most comfortable lying down or in a seated position. He reports his family doctor provides him with oxycodone which he takes on an intermittent basis. Currently has a urinary tract infection. Has multiple medical comorbidities that appear to be chronic. Upon our visit a few weeks ago I had ordered updated imaging to include lumbar MRI and CT scan which were performed at [facility] in March. I do have an upcoming appointment with him to rev iew these 2 days from now which is April 082020. Attending Physician: Elizabeth Adame MD Allergies Allergy/AdvReac Type Severity Reaction Status Date / Time No Known Allergies Allergy Verified 04/04/20 20:18 Home Medications Medication Instructions Recorded Confirmed Type diclofenac sodium 2 g TOPICAL BID PRN 02/29/20 04/04/20 History cyanocobalamin (vitamin B-12) 100 mcg PO DAILY 04/04/20 04/04/20 History duloxetine 30 mg PO DAILY 04/04/20 04/04/20 History furosemide 40 mg PO BID 04/04/20 04/04/20 History rifaximin [Xifaxan] 550 mg PO BID 04/04/20 04/04/20 History spironolactone 100 mg PO BID 04/04/20 04/04/20 History thiamine mononitrate (vit B1) 100 mg PO DAILY 04/04/20 04/04/20 History vitamin A 0 unit PO DAILY 04/04/20 04/04/20 History Patient History Medical History Acute hepatic encephalopathy Anxiety Chronic back pain Confusion Depression Encephalopathy, hepatic Fusion of spine February 2019 Genital herpes GERD (gastroesophageal reflux disease) Hearing deficit right ear perf eardrum History of alcohol abuse History of anemia History of cirrhosis of liver D/T ALCOHOL History of colon polyps History of hepatitis C Hx of ascites Hx of encephalopathy HEAPTIC Hx of esophageal varices Hx of gynecomastia Hx of thrombocytopenia Hypertension Lethargic Medication reaction Osteoarthritis Portal hypertensive gastropathy Portal vein thrombosis Urinary tract infection history of Surgical History History of lumbar fusion History of tooth extraction all teeth removed History of total right hip arthroplasty 2018 Hx of decompression of ulnar nerve RIGHT Family History Father Diabetes Other No family history of adverse response to anesthesia Social History Smoking Status: Smoker, status unknown Cigarettes Per Day: 1ppd x 2 years; Second Hand Exposure: No; Hx Alcohol Use: No Hx Substance Use: Yes Last Used Substance: Unknown Last Used Substance Other:: 5 months ago Substance Use Type Other:: 2-3 times a month Preferred Language: Palauan Communication Ability: Effective Dispute Coordinator Required: No Beliefs That Will Affect Care: None marital status: Single Current Living Situation: Alone Current Living Situation Comment: [facility] How many Children do You have: 0 Other Information That Helps Us Care for You: No Feels Safe at Home: Yes Safety Concerns: Feels Safe At This Time Assistive Devices: Cane Review of Systems Review of Systems: All systems reviewed & are unremarkable except as noted in HPI & below Physical Exam Physical Exam: Patient sitting on the edge of the bed. Does have a cane in the room. He is cooperative with exam. Alert and oriented x3. Negative logrolling bilaterally. Negative tension signs bilaterally. He has a well-healed midline lumbar incision. Modest tenderness over the right sacroiliac notch. Motor testing is 5 5 bilateral EHL, dorsiflexion, plantarflexion, quadriceps, hamstrings, hip flexors, hip abductor's and hip adductor's. Constitutional: WD/WN, vitals as above Eyes: normal visual munguia by confrontation ENMT: external ear and nose normal, oropharynx normal Neck: normal visual inspection Respiratory: normal respiratory effort Cardiovascular: Extremities: normal capillary refill Chest (Breasts): Chest: normal inspection of chest Gastrointestinal (Abdomen): Inspection/Auscultation: abdomen normal to inspection Musculoskeletal: no cyanosis or clubbing, extremities motor strength 5/5 Skin: no rashes, warm and dry Neurologic: moves all extremities Psychiatric: A+Ox3, euthymic affect Results & Data ([facility]) Vital Signs (Past 12 Hours) Vital Signs Temp Pulse Pulse Resp BP Pulse Ox 04/06/20 07:57 36.5 C 60 18 111/65 94 04/06/20 07:17 64 04/06/20 02:49 36.5 C 87 18 121/70 94 04/06/20 01:17 68 Diagnostic Findings [facility], [id number] Magnetic Resonance Report Patient: FABIANA LARRY [facility] Date: 03/16/20#: [id number]: [address] RDAcct ID:[id number]: Date: 1960[facility] Zip: [place], [place] [address]Hda: 60Location: MRISex: MRoom/Bed:Att Phy: Ramírez Berrios PA-CDiagnosis: B/L LOWER EXTPri Phy: Najma Garcia MDService Date: 03/16/20Fa Phy:Interpreting Phy: Ángel Maldonadomadhavflash MDAdmit Phy: Ordering Phy: Ramírez Berrios PA-C cc: ~ LUMBAR SPINE MRI HISTORY: Bilateral lower extremity weakness. TECHNIQUE: Multiplanar multisequence MRI of the lumbar spine was performed without the use of contrast. COMPARISON: Lumbar spine MRI 03/01/2019. FINDINGS: For the purpose of the report the L5-S1 disc space will be located on axial image 23 of . Mild levoscoliosis. There is 3 mm of anterolisthesis of L3 on L4. This remains unchanged. There is suggestion of bilateral L5 spondylolysis. The conus terminates at the T12 level. Paravertebral soft tissues are unremarkable. Interval posterior decompression and fusion at L3-L4 with pedicle screws and rods. Mild to moderate disc space narrowing at L2-L3, unchanged. Moderate facet degenerative changes at L3-L4 and L4-L5. Mild disc space narrowing at T12-L1, unchanged. Fractures within the posterior elements of L4 better appreciated on the same day lumbar spine CT. L1-L2: Tiny broad-based posterior disc bulge with ligamentum and facet hypertrophy resulting in minimal central canal narrowing. No significant neural foraminal narrowing. L2-L3: Broad-based posterior disc bulge with ligamentum and facet hypertrophy resulting in [id number] central canal and mild bilateral neural foraminal narrowing. This has progressed in the interval. L3-L4: No significant central canal narrowing due to the posterior decompression. There is moderate bilateral neural foraminal narrowing. Broad- based posterior disc bulge at this level has improved. L4-L5: Broad-based posterior disc bulge with ligamentum and facet hypertrophy resulting in mild central canal and mild bilateral neural foraminal narrowing. Small focus of hypointense signal posteriorly within the central canal best seen on axial image 17. This could represent a small amount of hemosiderin or calcification within the subdural space. Therefore, this is of doubtful clinical significance. L5-S1: Small broad-based posterior disc bulge with a focal central annular tear. No significant central canal or neural foraminal narrowing. IMPRESSION: 1. Interval posterior decompression and fusion at L3-L4 with pedicle screws and rods. 2. The posterior element fractures at L4 are better present in the same day lumbar spine CT. 3. No significant central canal narrowing at L3-L4 due to the posterior decompression. Additional degenerative changes as described above with [id number] central canal narrowing at L2-L3 which has slightly progressed. ACT 112: Negative or not required by law. Electronically signed by: Ángel Wilson M.D. 03/16/2020 2:19 PM Dictated: 03/16/20 1407Transcribed: 03/16/20 140 [facility], [id number] CT Scan Report [facility]: [facility]MR#: [id number]: [address] RDAcct ID:[id number]: Date: 1960[facility] [place] [address]Hca: 60Location: MRISex: MRoom/Bed:Att Phy: Ramírez Berriosagnosis: B/L LOWER EXTPri Phy: Najma Garcia MDService Date: 03/16/20Fa Phy:Interpreting Phy: Leonardo Brewster [facility] Phy: Ordering Phy: Ramírez Berrios PA-C cc: ~ CT OF THE LUMBAR SPINE WITHOUT CONTRAST CLINICAL HISTORY: Bilateral lower extremity pain and left leg numbness. COMPARISON STUDY: Lumbar spine MRI March 16, 2020. TECHNIQUE: Axial images of the lumbar spine were obtained without IV contrast. Sagittal and coronal reconstructions were viewed. Automated exposure control was utilized for the study. A dose lowering technique was utilized adhering to the principles of ALARA. FINDINGS: For purposes of numbering on this exam, the L5-S1 disc space is assigned to axial image 344 of 408. There is 5 mm anterolisthesis of L3 on L4. There is mild levoscoliosis of the lumbar spine. The central canal and neural foramen are better depicted on the MRI of the lumbar spine which will be reported separately. There are postoperative findings consistent with an L3-L4 posterior decompression and bilateral pedicle screw fusion. There is lucency surrounding the bilateral L3 pedicle screws and to a lesser extent the bilateral L4 pedicle screws. The hardware is intact. There is moderate disc space narrowing at L2-L3. There is moderate multilevel facet arthrosis. There are old bilateral L5 pars defects. There is an incompletely healed fracture through the right pedicle of L4. Callus formation is noted. There is an incompletely healed fracture through the left pars interarticularis of L4 with mild callus formation. A lucency through the left inferior articulating facet of L3 is likely chronic. IMPRESSION: 1. Status post L3-L4 posterior decompression bilateral pedicle screw fusion. Lucency surrounding the bilateral L3 and L4 pedicle screws raises the possibility of loosening. 2. Incompletely healed fractures of the right pedicle of L4 and left pars interarticularis of L4. These fractures are likely subacute to chronic. Old bilateral L5 pars defects. Grade I anterolisthesis of L3 on L4. 3. Suboptimal evaluation of the central canal and neural foramen which are better depicted on the MRI of the lumbar spine which will be reported separately. ACT 112: Negative or not required by law. Electronically signed by: Leonardo Brewster M.D. 03/16/2020 2:38 PM Dictated: 03/16/20 1411Transcribed: 03/16/20 1412
--- NOTE | 2020-04-06 14:05 | Hospitalist Progress Note ---
Date of Service April 06, 2020 Assessment & Plan (1) Acute hepatic encephalopathy: Possible related to hepatic encephalopathy VS UTI Urine tox is negative. Elevated ammonia level on admission 92 CT head showed no acute intracranial abnormality gastro on board Continue Lactulose 30mg TID and Rifaximin 550 mg BID resolved UTI UA positive for nitrite and bacteria urine cx grew staph species Received IV abx with Ceftriaxone x 3 days Sensitivity pending, but patient would like to go home today We usually don't treat staph species in the urine since it might be contaminated Since pt came for confusion that might be related to hepatic encephalopathy vs uti, will do an additional 2 more days of Amoxicillin to complete 5 days course Chronic back pain: Intermittent narcotic use with oxycodone that is not consistently written daily for use per PDMP data. Removed oxycodone from home med list so we don't become confused. This is given to him very intermittently. The patient was recently seen by Dr. Bauer (ortho spine surgeon) in mid-Feb. There is some concern for hardware failure with plan to pursue additional imaging with L-spine MRI wo contrast and CT scan wo contrast as the patient appears to be quite limited by this. He requested to see Dr. Bauer while admitting in the hospital Continue PT/OT eval No acute emergent surgical intervention as per ortho recommended Rigid LSO brace to wear during ambulation or activity only for comfort only On Oxycodone PRN Will consider to avoid taking too much narcotic due to intermittent confusion Follow up with Dr. Bauer on 04/08 (Already scheduled) Alcoholic cirrhosis: Patient reports abstinence from alcohol for 6 years. GI on board and Lactulose increased to 30mg TID and Rifaximin Will need outpatient follow up with GI Esophageal varices: Due chronic portal hypertension. No evidence of GI bleeding Depression with anxiety: Continue duloxetine per home regimen. Stable Tobacco abuse: Declines nicotine replacement today. Counseling on tobacco cessation Thrombocytopenia: Mostly due to chronic liver cirrhosis Platelet 42 DVT prophylaxis: SCDs/ambulation- contraindicated in setting of thrombocytopenia Full Code Disposition Discharge home today Admission and Anticipated Discharge Date Admission Date: April 04, 2020 Subjective Pt was seen and examined for follow up of confusion Lying in bed with no distress watching TV He said that he is back to his baseline He said that he had 2 bowel movement so far He is very anxious to go home today because he has to go check a house Denies any chest pain, palpitation, dizziness and fever Review of Systems Review of Systems: All systems reviewed & are unremarkable except as noted in Subjective Physical Exam Physical Exam: General- No acute distress Head- atraumatic Eyes- PERRL, EOMI, ENT- oropharynx clear Neck- supple, no JVD Lungs- clear to auscultation Heart- regular rhythm; no murmur Abdomen- normal bowel sounds, soft, nontender Extremities- no calf tenderness Neuro- alert, oriented x 3; PERRL, EOMI; no facial palsy; no dysarthria Skin- warm & dry Results & Data Results & Data ([facility]) Vital Signs (Past 12 Hours) Vital Signs Temp Pulse Pulse Resp BP Pulse Ox 04/06/20 11:54 36.8 C 88 20 113/65 96 04/06/20 07:57 36.5 C 60 18 111/65 94 04/06/20 07:17 64 04/06/20 02:49 36.5 C 87 18 121/70 94
--- NOTE | 2020-04-11 08:24 | Discharge Summary ---
Date of Service April 06, 2020 Admission HPI Per Admitting Provider History obtained from patient and records. Medical history significant for alcoholic cirrhosis, past tobacco and alcohol abuse, chronic anemia (baseline hemoglobin 11-12), history of portal vein thrombosis as per records. Recent confinement February 2020 for hepatic encephalopathy. Few days history of achy epigastric pain without unusual diarrhea symptoms. Some nausea, no emesis. Stools not black or bloody. No chest pain, no S OB. Usual back pain complaints. Achy headache symptoms. Patient noted to be confused. Denies recent alcohol intake. Patient brought to the ER for evaluation. Lactulose and ceftriaxone given for hepatic encephalopathy and UTI, respectively. MEDICAL HISTORY: As above. SURGERIES: He has had carpal tunnel surgery, dental surgery, back surgery, hip replacement. FAMILY HISTORY: Heart disease, hypertension, alcohol abuse. PERSONAL AND SOCIAL HISTORY: Past tobacco/ETOH abuse. He is disabled. Admission Exam Per Admitting Provider GENERAL: Slightly restless and uncomfortable, coherent but episodic slowed speech, no respiratory distress SKIN: Pallor , warm HEENT: Pale palpebral conjunctivae, no ptosis, dry buccal mucosa NECK : Supple, no tenderness CHEST : Decreased breath sounds , no tenderness HEART : RRR, no obvious murmurs ABDOMEN: Some distention, minimal epigastric tenderness EXTREMITIES : No LE swelling, no LE tenderness, no other conspicuous deformities noted NEUROLOGIC : Coherent, no facial asymmetry, speech slow from time to time, episodic RUE tremors, no other gross focality Principal Diagnosis Acute hepatic encephalopathy: UTI (Urinary tract infection) Chronic back pain: History Alcoholic cirrhosis Esophageal varices Depression with anxiety: Tobacco abuse: Thrombocytopenia: Discharge Exam General- No acute distress Head- atraumatic Eyes- PERRL, EOMI, ENT- oropharynx clear Neck- supple, no JVD Lungs- clear to auscultation Heart- regular rhythm; no murmur Abdomen- normal bowel sounds, soft, nontender Extremities- no calf tenderness Neuro- alert, oriented x 3; PERRL, EOMI; no facial palsy; no dysarthria Skin- warm & dry Discharge Data Allergies Allergy/AdvReac Type Severity Reaction Status Date / Time No Known Allergies Allergy Verified 04/04/20 20:18 Consultations 04/04/20 19:50 ED Decision to Admit Stat 04/04/20 23:18 Consult Case Management - Discharge Planning Routine Consult Gastroenterology Routine 04/05/20 16:17 Consult Orthopedic Surgery Routine Ordered Studies 04/04/20 18:22 CT head/brain wo con Stat 04/04/20 22:16 CT abd pelvis IV con only Urgent CT OF THE ABDOMEN AND PELVIS WITH CONTRAST CLINICAL HISTORY: Abdominal pain. COMPARISON STUDY: CT of the abdomen and pelvis January 28, 2020. TECHNIQUE: Following IV administration of 94 mL of Optiray-320, axial images of the abdomen and pelvis were obtained from the lung bases to the proximal femurs. Images were reviewed in the axial, sagittal, and coronal planes. IV contrast was administered without complication. Automated exposure control was utilized for the study. A dose lowering technique was utilized adhering to the principles of ALARA. CT DOSE: 561.70 mGy.cm FINDINGS: Lung bases are unremarkable. Pericardial calcification is chronic. No pneumatosis, free air or portal venous gas is present. The liver is cirrhotic. Sensitivity for detection of hepatic lesions is diminished on this portal venous phase exam but none are identified. Recanalized umbilical vein is noted. Splenomegaly is again noted. No evidence for ascites. Varices are again noted. The adrenal glands, kidneys and pancreas are normal. There is no biliary or pancreatic ductal dilatation. No hydronephrosis. There is no evidence for a bowel obstruction. The appendix is normal. The caliber and wall thickness of small and large bowel are normal. Right hip arthroplasty is noted. There is chronic deformity of the left femoral head with flattening. There may be avascular necrosis of the left femoral head. Postoperative findings within lumbar spine is similar to CT of March 16, 2020. There is an L3-L4 posterior decompression with bilateral pedicle screw fusion. Lucency surrounding pedicle screws again noted. Incompletely healed fractures of the right pedicle of L4 and left pars interarticularis of L4 noted. Old L5 pars defects. Appearance is unchanged. IMPRESSION: 1. No acute process within the abdomen or pelvis. 2. Cirrhosis with manifestations of portal hypertension, as described above. 3. No bowel obstruction. Normal appendix. No bowel wall thickening. ACT 112: Negative or not required by law. Electronically signed by: Leonardo Brewster M.D. 04/05/2020 8:27 AM Dictated: 04/05/20 0813Transcribed: 04/05/2014 CT OF THE HEAD WITHOUT CONTRAST CLINICAL HISTORY: confusion COMPARISON STUDY: Head CT February 29, 2020. CT DOSE: 537.48 mGy.cm TECHNIQUE: Helical axial images of the head were obtained without IV contrast. Automated exposure control was utilized for the study. A dose lowering technique was utilized adhering to the principles of ALARA. FINDINGS: No acute intracranial hemorrhage, midline shift or mass effect is present. The ventricular system is unremarkable. The basal cisterns are patent. No extra-axial collections are present. There are no findings to suggest acute dural sinus thrombosis or acute territorial infarct. No significant calvarial abnormalities are present. Visualized portions of the sinuses and mastoid air cells are clear. IMPRESSION: No acute intracranial findings. ACT 112: Negative or not required by law. Electronically signed by: Leonardo Brewster M.D. 04/04/2020 7:28 PM Dictated: 04/04/201925Transcribed: 04/04/201925 XR chest 1V portable CLINICAL HISTORY: SEPSIS COMPARISON STUDY: Chest radiograph February 29, 2020. FINDINGS: Lung volumes are normal. Lungs are clear. There is no pneumothorax or pleural effusion. Cardiac size is normal. Mediastinal contours are normal. There is no evidence for pulmonary edema. IMPRESSION: No acute cardiopulmonary findings. ACT 112: Negative or not required by law. Electronically signed by: Leonardo Brewster M.D. 04/04/2020 8:01 PM Dictated: 04/04/202000Transcribed: 04/04/202000 Hospital Course (1) Acute hepatic encephalopathy: Possible related to hepatic encephalopathy VS UTI Urine tox is negative. Elevated ammonia level on admission 92 CT head showed no acute intracranial abnormality gastro on board Continue Lactulose 30mg TID and Rifaximin 550 mg BID resolved UTI UA positive for nitrite and bacteria urine cx grew staph species Received IV abx with Ceftriaxone x 3 days Sensitivity pending, but patient would like to go home today We usually don't treat staph species in the urine since it might be contaminated Since pt came for confusion that might be related to hepatic encephalopathy vs uti, will do an additional 2 more days of Amoxicillin to complete 5 days course Chronic back pain: Intermittent narcotic use with oxycodone that is not consistently written daily for use per PDMP data. Removed oxycodone from home med list so we don't become confused. This is given to him very intermittently. The patient was recently seen by Dr. Bauer (ortho spine surgeon) in mid-Feb. There is some concern for hardware failure with plan to pursue additional imaging with L-spine MRI wo contrast and CT scan wo contrast as the patient appears to be quite limited by this. He requested to see Dr. Bauer while admitting in the hospital Continue PT/OT eval No acute emergent surgical intervention as per ortho recommended Rigid LSO brace to wear during ambulation or activity only for comfort only On Oxycodone PRN Will consider to avoid taking too much narcotic due to intermittent confusion Follow up with Dr. Bauer on 04/08 (Already scheduled) Alcoholic cirrhosis: Patient reports abstinence from alcohol for 6 years. GI on board and Lactulose increased to 30mg TID and Rifaximin Will need outpatient follow up with GI Esophageal varices: Due chronic portal hypertension. No evidence of GI bleeding Depression with anxiety: Continue duloxetine per home regimen. Stable Tobacco abuse: Declines nicotine replacement today. Counseling on tobacco cessation Thrombocytopenia: Mostly due to chronic liver cirrhosis Platelet 42 DVT prophylaxis: SCDs/ambulation- contraindicated in setting of thrombocytopenia Full Code Disposition Discharge home today Total Time Total Time Spent Total Time Spent (In Minutes): 35 minutes Total Time Includes: Examination of the Patient, Discharge Planning, Medication Reconciliation, Communication With Other Providers and Other Discharge Plan Discharge Items Patient Disposition: Home - Self-Care Reason For Visit: ENCEPHALOPATHY Discharge Diagnosis: Acute hepatic encephalopathy: UTI (Urinary tract infection) Chronic back pain: History Alcoholic cirrhosis Esophageal varices Depression with anxiety: Tobacco abuse: Thrombocytopenia: Activity: Resume your previous activity Non-emergency contact: Primary Care Provider Call non-emergency contact if: you have any medication questions and your temperature is above 101 Follow-up/Referrals: Najma Garcia MD [Primary Care Provider] - (Date & Time 04/12/2020 12:40 PM Provider Najma Garcia MD Department Internal Medicine [facility] ) Diet: Low Sodium (2gm) Addtl Attending Provider Instructions: Follow up with your primary care provider Dr. Yao on 04/12/2020 @ 12:40 PM Follow up with orthopedic Dr. Bauer on (04/08) Follow up with Gastroenterology (Please call for the appointment) Continue to wear the brace during ambulation and activity for comfort care only (No need to wear it when sitting or lying down) Fall precaution Continue daily Lactulose to have between 3-4 bowel movement per day Encouraged to continuing to abstain from ETOH, illicit drugs Counseling on tobacco abuse Please avoid any narcotic due to intermittent confusion Follow a low salt diet Complete the course of the antibiotic Pending Studies at Discharge: Yes Studies:: urine sensitivity Stand-Alone Forms: My [facility], Smoking Cessation Medications and DC Order Prescriptions: Continued furosemide 40 mg tablet 40 mg PO BID RF: 0 vitamin A 8,000 unit Capsule 0 unit PO DAILY RF: 0 cyanocobalamin (vitamin B-12) 100 mcg tablet 100 mcg PO DAILY RF: 0 spironolactone 100 mg tablet 100 mg PO BID RF: 0 duloxetine 30 mg capsule,delayed release(DR/EC) 30 mg PO DAILY RF: 0 Xifaxan 550 mg tablet 550 mg PO BID RF: 0 thiamine mononitrate (vit B1) 100 mg tablet 100 mg PO DAILY RF: 0 diclofenac sodium 1 % gel 2 g topical BID PRN (Reason: Pain) RF: 0 Discharge Orders: Discharge Order (Routine); Ordered 04/06/20 Ordered By: Elizabeth Adame Admission Data Admit Date/Time: 04/04/20 22:00 Attending Provider: Elizabeth Adame Admit Provider: Yoni Goss Primary Care Provider: Najma Garcia Other Providers: Yoni Goss ; Zohaib Mendez ; Mely Elam ; Iraj Mendez ; Magdalena Olsen ; Ezekiel Ruiz ; Peter Daniel ; Laron Yuan ; Gordy Milner ; Harjinder Napoles ; Steph Swenson ; Ritu Toribio ; Micki Lundy ; Emilia Velarde ; Rich Person ; Viraj Bauer Other Interventions: Discharge Summary Assessment (RN) Last Done: 04/06/20 15:24
== END 2020-04-06 16:54 | disposition home or self-care (01) | DRG 442 ==
LOC: ED 18:00 → 2N 22:00

== ENCOUNTER 2020-05-27 07:44 | Inpatient (IN) ==
--- NOTE | 2020-04-29 15:04 | Anesthesiology Consultation ---
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 Preoperative COVID19 testing to be completed prior to surgery per surgeon's arrangements. Patient with chronic thrombocytopenia. Will check platelet count DOS. Surgeon's office aware, will let us know if surgeon planning transfusion prior to surgery. Chart Review Chart Review: Acceptable Risk for Surgery and Patient NOT seen in Pre Admission Testing History Surgery Operation Date: 05/27/20 07:45 Proposed Procedures p L3-S1 Decompression and Fusion, L3-L4 Hardware Removal, Spinal Cord Monitoring - Viraj Bauer, Height/Weight Height: 5 ft 6 in Weight: 82.554 kg Allergies Allergy/AdvReac Type Severity Reaction Status Date / Time No Known Allergies Allergy Verified 04/16/20 12:26 Medications Home Medications Medication Instructions Recorded Confirmed Last Taken diclofenac sodium 2 g TOPICAL TID PRN 02/29/20 04/16/20 04/04/20 Xifaxan 550 mg PO BID 04/04/20 04/16/20 04/04/20 cyanocobalamin (vitamin B-12) 100 mcg PO QAM 04/04/20 04/16/20 04/04/20 duloxetine 30 mg PO HS 04/04/20 04/16/20 04/04/20 furosemide 40 mg PO BID 04/04/20 04/16/20 04/04/20 spironolactone 100 mg PO BID 04/04/20 04/16/20 04/04/20 thiamine mononitrate (vit B1) 100 mg PO QAM 04/04/20 04/16/20 04/04/20 fluticasone propionate [Flonase 2 spray INTRANASAL DAILY PRN 04/16/20 04/16/20 Unknown Allergy Relief] lactulose [Kristalose] 20 g PO TID 04/16/20 04/16/20 Unknown ondansetron HCl [Zofran] 4 mg PO Q8H PRN 04/16/20 04/16/20 Unknown oxycodone 5 mg PO Q6H PRN 04/16/20 04/16/20 Unknown Past Medical History Medical History Anxiety Chronic back pain Confusion Admitted to [facility] 04/2020 for confusion felt 2/2 hepatic encephalopathy vs UTI. Cystitis Depression Genital herpes GERD (gastroesophageal reflux disease) Hearing deficit right ear perf eardrum History of alcohol abuse quit drinking 5 years ago History of anemia History of cirrhosis of liver D/T ALCOHOL History of colon polyps History of hepatitis C Hx of ascites Hx of encephalopathy See recent admission 04/2020 [facility] Hx of esophageal varices 2/2 chronic portal HTN Hx of gynecomastia Hx of thrombocytopenia Baseline platelets ~ 50-75k. 2/2 cirrhosis. Hypertension Osteoarthritis Portal hypertensive gastropathy Portal vein thrombosis hx Urinary tract infection hx, recurrent Past Family History Family History Father Diabetes Other No family history of adverse response to anesthesia Past Surgical History Surgical History Fusion of spine February 2019 History of tooth extraction all teeth removed History of total right hip arthroplasty 2018 Hx of decompression of ulnar nerve RIGHT Social History Smoking Status: Former smoker tobacco type: cigarettes Smoking cigarettes per day: 1ppd x 2 years Do You Dip or Chew Tobacco: Yes (1 every 3 days) Smoking End Date: 40 years ago Hx Alcohol Use: No Alcohol type: beer alcohol intake frequency: other Hx Substance Use: Yes substance use type: marijuana Substance Use Type Other:: special occassions Last Used Substance: Unknown Last Used Substance Other:: advised Testing Laboratory Results Blood Type A Positive 04/29/20 11:11 Antibody Screen NEGATIVE 04/29/20 11:11 04/29/20 WBC: 4.39 H/H: 12.8/37.1 PLATELETS: 76* SODIUM: 141 POTASSIUM: 3.8 CHLORIDE: 109 CO2: 27 BUN: 17 CREATININE: 0.83 GLUCOSE: 84 PT: 11.9 PTT: 26.2 INR: 1.2 UA: neg *SURGEON'S OFFICE MADE AWARE OF CHRONICALLY LOW PLATELETS. Electrocardiogram Date: 04/29/20 Findings: + NSR @ (78bpm) Low voltage QRS. No significant change from 03/2020. Chest X-Ray Date: 04/29/20 IMPRESSION: 1. No active disease in the chest 2. Stable pericardial calcifications Stress Test Date: 07/10/18 Type: DSE Resting EF: 55-59% Resting LV Function: normal Resting RWMA: + none Valvular Disease: no significant valvular disease and pertinent finding (grade I diastolic dysfunction) Negative for inducible ischemia by echo and EKG.
[~2020-05-27 07:44] MED LIST changes: -BUPIVACAINE 0.5 % 5 MG/1 ML PF 10ML VIAL ONE; -CEFAZOLIN 2000MG 2,000 MG/15 ML SYR IV SCH; +CeleBREX 200 MG CAP PO SCH; +LACTATED RINGER'S 1,000 ML IV SCH; -LR 500ML BOLUS, THEN 15ML/HR IV SCH; -LR 60ML/HR IV SCH; -ROPIVACAINE 0.5% HCL/PF 150 MG, BUPIVACAINE 0.5% MPF 30 ML, EPINEPHrine 30MG/30ML (OR U... INFIL SCH; -TRANEXAMIC ACID 1,000 MG **IV Intra-op IV SCH; -TRANEXAMIC ACID 1,000 MG **IV Pre-op IV SCH; +ceFAZolin 2000MG 2,000 MG/15 ML SYR IV SCH
[2020-05-27] MEDS ORDERED: fentaNYL citrate 100 MCG/2 ML VIAL ONE (08:16)
[2020-05-27] MEDS ORDERED: MIDAZOLAM HCL 1 MG/ML 2ML VIAL ONE (08:16)
[2020-05-27 08:51] LABS: Platelet Count 74 K/uL (130-400)
[2020-05-27 09:01] LABS: INR 1.2 (0.9-1.1); Partial Thromboplastin Time 25.5 Seconds (21.0-31.0); Prothrombin Time 11.8 Seconds (9.0-12.0)
[2020-05-27] MEDS ORDERED: ONDANSETRON INJ 2 MG/ML 2 ML VIAL IV PRN ×2 (09:24→14:10)
[2020-05-27] MEDS ORDERED: ATROPINE SULFATE 0.1 MG/ML 10ML SYR IV PRN (09:24)
[2020-05-27] MEDS ORDERED: fentaNYL citrate 100 MCG/2 ML VIAL IV PRN (09:24)
[2020-05-27] MEDS ORDERED: ePHEDrine sulfate 50 MG/ML AMP IV PRN (09:24)
[2020-05-27] MEDS ORDERED: METOCLOPRAMIDE HCL INJ 5 MG/ML 2 ML VIAL IV PRN ×2 (09:24→14:10)
[2020-05-27] MEDS ORDERED: PROMETHAZINE HCL 12.5 MG in SODIUM CHLORIDE 0.9% 50 ML IV PRN ×2 (09:24→14:10)
[2020-05-27] MEDS ORDERED: HYDROmorphone INJ 2 MG/ML SYR/VIAL IV PRN (09:24)
--- NOTE | 2020-05-27 09:28 | History & Physical Bridge Note ---
Date of Service May 27, 2020 History & Physical Bridge Note I have examined the patient, reviewed the History & Physical and in the interval since the performance of the History & Physical I have noted the following changes of clinical significance: no changes noted
--- NOTE | 2020-05-27 09:29 | History & Physical Report ---
Date of Service May 27, 2020 Assessment & Plan (1) Lumbar radiculopathy: Admission and Anticipated Discharge Date Admission Date: L3-S1 decompression fusion, L3-L4 hardware removal History of Present Illness Chief Complaint: Back and leg pain Primary Care Provider: Najma Garcia MD This is a 6-year-old male who presents with chronic persistent back and leg pain. After failing course of nonoperative care is here for surgical invention. Allergies Allergy/AdvReac Type Severity Reaction Status Date / Time No Known Allergies Allergy Verified 05/27/20 08:02 Home Medications Medication Instructions Recorded Confirmed Type diclofenac sodium 2 g TOPICAL TID PRN 02/29/20 05/27/20 History Xifaxan 550 mg PO BID 04/04/20 05/27/20 History cyanocobalamin (vitamin B-12) 100 mcg PO QAM 04/04/20 05/27/20 History duloxetine 30 mg PO HS 04/04/20 05/27/20 History furosemide 40 mg PO BID 04/04/20 05/27/20 History spironolactone 100 mg PO BID 04/04/20 05/27/20 History thiamine mononitrate (vit B1) 100 mg PO QAM 04/04/20 05/27/20 History fluticasone propionate [Flonase 2 spray INTRANASAL DAILY PRN 04/16/20 05/27/20 History Allergy Relief] lactulose [Kristalose] 20 g PO TID 04/16/20 05/27/20 History ondansetron HCl [Zofran] 4 mg PO Q8H PRN 04/16/20 05/27/20 History oxycodone 5 mg PO Q6H PRN 04/16/20 05/27/20 History Past Med/Surg History Medical History Anxiety Chronic back pain Confusion Admitted to [facility] 04/2020 for confusion felt 2/2 hepatic encephalopathy vs UTI. Cystitis Depression Genital herpes GERD (gastroesophageal reflux disease) Hearing deficit right ear perf eardrum History of alcohol abuse quit drinking 5 years ago History of anemia History of cirrhosis of liver D/T ALCOHOL History of colon polyps History of hepatitis C Hx of ascites Hx of encephalopathy See recent admission 04/2020 [facility] Hx of esophageal varices 2/2 chronic portal HTN Hx of gynecomastia Hx of thrombocytopenia Baseline platelets ~ 50-75k. 2/2 cirrhosis. Hypertension Osteoarthritis Portal hypertensive gastropathy Portal vein thrombosis hx Urinary tract infection hx, recurrent Surgical History Fusion of spine February 2019 History of tooth extraction all teeth removed History of total right hip arthroplasty 2018 Hx of decompression of ulnar nerve RIGHT Family History Father Diabetes Other No family history of adverse response to anesthesia Social History Smoking Status: Smoker, status unknown Cigarettes Per Day: 1ppd x 2 years; Smoking End Date: 40 years ago; Second Hand Exposure: No; Do You Dip or Chew Tobacco: Yes (1 every 3 days); Hx Alcohol Use: No Hx Substance Use: Yes Last Used Substance: Unknown Last Used Substance Other:: 5 months ago Substance Use Type Other:: 2-3 times a month Preferred Language: [place] Communication Ability: Effective Dials Supervisor Required: No Beliefs That Will Affect Care: None marital status: Single Current Living Situation: Alone Current Living Situation Comment: [facility] How many Children do You have: 0 Other Information That Helps Us Care for You: No Feels Safe at Home: Yes Safety Concerns: Feels Safe At This Time Assistive Devices: Cane, Crutches, Denture - Upper, Denture - Lower, Glasses and Walker Assistive Devices Comment: scooter Physical Exam Physical Exam: Patient is alert and oriented Heart regular in rhythm Lungs clear to auscultation Results & Data ([facility]) Vital Signs (Past 12 Hours) Vital Signs Temp Pulse Resp BP Pulse Ox 05/27/20 08:05 37 C 80 18 147/86 H 99
[2020-05-27] MEDS ORDERED: BACITRACIN INJ 50,000 UNIT VIAL ONE (09:32)
[2020-05-27] MEDS ORDERED: BUPIVACAINE/EPINEPHRINE 0.5% MPF 1:200,000 30 ML VIAL ONE (09:32)
[2020-05-27] MEDS ORDERED: THROMBIN FOR SOLN 20000 UNIT KIT ONE (10:16)
[2020-05-27] MEDS ORDERED: ROCURONIUM BROMIDE 10 MG/ML 5 ML VIAL IV ONE (10:30)
[2020-05-27] MEDS ORDERED: ONDANSETRON INJ 2 MG/ML 2 ML VIAL ONE (10:30)
[2020-05-27] MEDS ORDERED: NEOSTIGMINE METHYLSULFATE 1 MG/ML 10ML VIAL ONE (10:30)
[2020-05-27] MEDS ORDERED: PROPOFOL IV EMULSION 10 MG/ML 20 ML VIAL IV ONE (10:30)
[2020-05-27] MEDS ORDERED: PHENYLEPHRINE 100MCG/ML 5ML SYR ONE (10:30)
[2020-05-27] MEDS ORDERED: HYDROmorphone INJ 2 MG/ML SYR/VIAL ONE (10:30)
[2020-05-27] MEDS ORDERED: LIDOCAINE HCL 2% 2 ML VIAL/AMP(20MG/ML) INFIL ONE (10:30)
[2020-05-27] MEDS ORDERED: ePHEDrine sulfate 50 MG/ML SYR ONE (10:30)
[2020-05-27] MEDS ORDERED: DEXAMETHASONE SOD INJ 4 MG/ML VIAL ONE (10:30)
[2020-05-27] MEDS ORDERED: GLYCOPYRROLATE 0.2 MG/ML VIAL ONE (10:30)
[2020-05-27] MEDS ORDERED: LARYING-O-JET KIT (LTA) ONE (10:30)
[2020-05-27] MEDS ORDERED: FLOSEAL HEMOSTATIC MATRIX 10ML TOP ONE (10:42)
--- NOTE | 2020-05-27 11:54 | Operative Report ---
Post Operative Report Pre & Post Diagnosis Operation Date: 05/27/20 09:35 Pre-Op Diagnosis: #1 spondylolisthesis L3-L4. #2 recurrent disc herniation L3-L4. #3 nonunion of fusion L3-L4. Post-Op Diagnosis: Same I identified the patient and participated in the time-out.: Yes Procedure Operation Date: 05/27/20 09:35 Actual Procedures #1 removal of posterior instrumentation L3-L4. #2 exploration of fusion L3-L4. #3 revision decompression with medial facetectomy and foraminotomies L3-L4. #4 posterior spinal fusion L3-L4. #5 placement posterior instrumentation L3-L4. #6 interbody fusion L3-L4. #7 placement peek cage 13 x 26 mm at L3-L4. #8 placement locally harvested morselized autograft in the posterior gutters. #9 placement infuse collagen sponge, master graft in the posterior lateral gutters and I factor in the interbody space. Surgeon Viraj Bauer, Refrigeration Engineer Marisela Alford Estimated Blood Loss 150 Findings Consistent with Post-Op Diagnosis Specimens None Indications This is a 60-year-old male who presents above-mentioned diagnosis after failing course of nonoperative care is here for surgical invention. Description of Procedure Patient was met with identified informed consent obtained. Patient was then taken to the operative suite underwent a patient placed in prone position injectable top Francisco frame. All bony prominences well-padded eyes inspected to ensure no external pressure placed upon the bed at this point lumbar spine was prepped and draped in a sterile fashion. Sharp dissection with the assistance of Bovie cautery was then performed down to and exposing the instrumentation at L3-L4. Proceeded move the instrumentation bilaterally. Obvious loosening of the screws was noted bilaterally. There was no evidence of any mature bone graft that was very unstable. In light of this finding and the patient's underlying health issues I elected to forego the L4-5 L5-S1 levels. Majority of symptom complex undoubtedly is from the 3 level I had considerable concerns regarding his ability to heal a 3 level fusion. At this time procedure performed revision decompression L3-L4 with complete facetectomy on the right exposing and markedly compressed exiting L3 nerve root. There is evidence of recurrent disc herniation at this level as well. I remove the disc herniation. Larger pedicle screws were then placed in L3-L4 bilaterally with assistance of fluoroscopy the proper sized mohan placed. By way of a transforaminal approach on the right a complete discectomy was performed endplates curetted to subcortically bone and a 13 x 26 mm peek cage filled with I factor tapped in position. The rods were then locked into final position bilaterally. The transverse processes of L3 and L4 burred to subcortical leading bone. Infuse collagen sponge master graft lobe autograft was placed in the posterior gutters. 15 round MORAIMA drain inserted. The incision was then closed with 1 Vicryl the fascia 2-0 Vicryl subcutaneously and 4 Monocryl for final skin closure. Steri- Strip sterile dressings placed. Patient waken taken to PACU stable condition. Please note spinal cord monitoring was utilized at the procedure no changes noted. Lastly Marisela Alford was present at the entire surgery involved in patient positioning complex portions of the surgery and final skin closure. I attest to the content of the Intraoperative Record and any orders documented therein. Any exceptions are noted below.
[2020-05-27] MEDS ORDERED: MEPERIDINE HCL 25 MG/ML CARP/VIAL ONE (12:22)
[2020-05-27] MEDS ORDERED: LABETALOL HCL IV 5 MG/ML 20ML IV ONE (12:36)
[2020-05-27] MEDS: LABETALOL HCL IV 5 MG/ML 20ML IV PRN ×2 (12:37→12:42)
[2020-05-27] MEDS ORDERED: MEPERIDINE HCL 25 MG/ML CARP/VIAL IV PRN (12:38)
[2020-05-27] MEDS ORDERED: MEPERIDINE HCL 25 MG/ML CARP/VIAL IV ONE (12:42)
--- NOTE | 2020-05-27 12:50 | Fluoroscopy Report ---
FL lumbar spine 2-3V CLINICAL HISTORY: Hardware removal and fusion. COMPARISON STUDY: CT of the lumbar spine March 26, 2020. FLUOROSCOPY TIME: 6 seconds. FLUOROSCOPIC IMAGES: 2 FINDINGS: Fluoroscopy was provided during hardware removal with L3-L4 discectomy with interbody space r placement. Bilateral pedicle screws are noted at the L3 and L4 levels with interconnecting rods. Mcghee rdware is intact. IMPRESSION: Fluoroscopy provided during revision L3-L4 decompression and fusion. ACT 112: Negative or not required by law. Electronically signed by: Leonardo Brewster M.D. 05/27/2020 12:49 PM
--- NOTE | 2020-05-27 13:40 | Anesthesiology Progress Note ---
Date of Service May 27, 2020 Anesthesia Post Procedure Vital Signs Vital Signs: Temp Pulse Pulse Resp BP BP Pulse Ox 05/27/20 13:20 78 16 109/61 96 05/27/20 13:10 74 16 123/71 96 05/27/20 13:00 36.5 C 74 16 110/71 96 05/27/20 12:50 72 16 117/76 96 05/27/20 12:40 80 16 182/104 H 95 05/27/20 12:30 100 H 16 216/114 H 100 05/27/20 12:20 110 H 16 194/107 H 100 05/27/20 12:11 36.0 C L 110 H 16 180/96 H 100 05/27/20 08:05 37 C 80 18 147/86 H 99 Pain Intensity Back: Pain Intensity: 4 Transfer of Care Handoff Completed per policy Notes Mental Status: alert / awake / arousable and participated in evaluation Patient Amnestic to Procedure: Yes Nausea / Vomiting: adequately controlled Pain: adequately controlled Airway Patency, RR, SpO2: stable & adequate BP & HR: stable & adequate Hydration State: stable & adequate Anesthetic Complications: no major complications apparent
[2020-05-27] MEDS ORDERED: NON-FORMULARY MEDICATION (Ondansetron Hcl 4 mg Tablet) PO PRN (14:10)
[2020-05-27] MEDS ORDERED: HYDROmorphone INJ 0.5 MG/0.5 ML SYR IV PRN (14:10)
[2020-05-27] MEDS ORDERED: FAMOTIDINE 20 MG TAB PO PRN (14:10)
[2020-05-27] MEDS ORDERED: SOD PHOSPHATE/SOD BIPHOSPHATE ENEMA 132 ML BTL PR PRN (14:10)
[2020-05-27] MEDS ORDERED: ACETAMINOPHEN 500 MG TAB PO PRN (14:10)
[2020-05-27] MEDS ORDERED: LACTATED RINGER'S 1,000 ML IV SCH (14:10)
[2020-05-27] MEDS ORDERED: DO NOT ADMINISTER FLU VACCINE PRN (14:10)
[2020-05-27] MEDS ORDERED: hydrOXYzine HCl 25 MG TAB PO PRN (14:10)
[2020-05-27] MEDS ORDERED: HYDROmorphone INJ 1 MG/ML SYRINGE IV PRN (14:10)
[2020-05-27] MEDS ORDERED: LORazepam 0.5 MG TAB PO PRN (14:10)
[2020-05-27] MEDS ORDERED: bisacodyL 10 MG SUPP PR PRN (14:10)
[2020-05-27] MEDS ORDERED: ONDANSETRON 4 MG OD TAB PO PRN (14:10)
[2020-05-27] MEDS ORDERED: NALOXONE HCL 0.4 MG/1 ML VIAL/CARP IV PRN (14:10)
[2020-05-27] MEDS ORDERED: ALUMINUM/MAGNESIUM SUSP 30 ML UDC PO PRN (14:10)
[2020-05-27] MEDS ORDERED: MAGNESIUM HYDROXIDE SUSP 30 ML UDC PO PRN (14:10)
[2020-05-27] MEDS ORDERED: LORazepam 0.5 MG/1 ML VIAL IV PRN (14:10)
[2020-05-27] MEDS ORDERED: ACETAMINOPHEN 1,000 MG/100 ML VIAL IV PRN (14:10)
[2020-05-27] MEDS ORDERED: traMADol HCL 50 MG TABLET PO PRN (14:10)
[2020-05-27] MEDS ORDERED: diphenhydrAMINE Capsule 25 MG CAP PO PRN (14:10)
[2020-05-27] MEDS ORDERED: DO NOT ADMINISTER PNEUMOCOCCAL VACCINE PRN (14:10)
--- NOTE | 2020-05-27 14:29 | Hospitalist Consultation ---
Date of Consultation May 27, 2020 Assessment & Plan (1) S/P spinal surgery: (2) Thrombocytopenia: (3) Anemia: (4) History of cirrhosis of liver: (5) Hx of esophageal varices: (6) GERD (gastroesophageal reflux disease): (7) Depression: This is a 60-year-old male with PMH of alcoholic cirrhosis of liver, history of esophageal varices, thrombocytopenia, spinal stenosis of lumbar spine, history of alcohol and substance abuse and other medical problems listed below who is POD #0 s/p removal of posterior instrumentation L3-L4, revision decompression with medial facetectomy and foraminotomies L3 and posterior spinal fusion L3-L4 by Dr. Bauer. Status post spinal surgery POD #0 s/p removal of posterior instrumentation L3-L4, revision decompression with medial facetectomy and foraminotomies L3 and posterior spinal fusion L3-L4 by Dr. Bauer. Per ortho for pain control, wound care, anticoagulation and activities Monitor H&H (preop hgb 12.8), continue incentive spirometry, PT/OT when appropriate Fall precautions and bed alarm in place Alcohol cirrhosis of liver History of esophageal varices Delirious likely 2/2 anesthesia. Easily redirected. Considering possibility of hepatic encephalopathy given cirrhosis - ordering ammonia level Continue lactulose and Xifaxan as scheduled Continue home dose Lasix, spironolactone Thrombocytopenia Chronic, in setting of cirrhosis Platelets 74 today (baseline 50s-70s) Anemia Baseline hgb 11-12. Monitor with daily CBC Depression Continue duloxetine History of alcohol abuse Quit 5 years ago. Continue thiamine, B12 supplementation PCP: Radha Dispo: Per primary service Patient seen in collaboration with Dr. Sevilla. Please see addendum. Supervising Physician Co-Signing Physician Notes Attending note : pt seen and examined , care co-ordinated with Daina Olmos PA-C 60 yo M with of prior hx of alcohol and substance abuse ( Marijuana ) , alcoholic liver disease ( Cirrhosis ) , Esophageal varices /chronic thrombocytopenia due to liver cirrhosis , GERD , hx of prior lumber spine surgery underwent complex lumber spine surgery on L3-L4 level ( removal of prior instrumentation/foraminectomy and fusion ) by Dr Bauer today . pt seen post op in room 320/1 with Daina DILLARD pt was very lethargic , falling off to sleep in mid conversation ,wakes up to voice - very confused , seeing things in room " his scooter on the corner , asking for his Hat which is on the scooter " tried to sit up , later attempt to get out of bed settles down in bed after talking to him Physical Exam : as per Daina Olmos PA-C A/P : Chronic Back pain s/p lumber spine surgery : -cont post spinal surgery as per Ortho protocol post op H&H stable ~12 pt has MORAIMA drain , follow AM lab Confusion /Hepatic encephalopathy : ammonia level elevated 54 no s/s infection or GI bleed LFT's wnl ordered for 40 mg PO Lactulose now continue TID lactulose 30 mg ( dose increased from 20mg TID ) d/c other stool softener laxatives repeat ammonia level in am Delusion /Hallucination : possible due to above fall precaution /utilize bed and chair alarm urine tox screen ordered avoid sedatives/hypnotics as much as possible Chronic thrombocytopenia : Esophageal varices GERD : please refer to further documentation by Daina Olmos PA-C for detail Maxine Sevilla MD History of Present Illness Reason for Consultation: Postop medical management Attending Physician: Viraj Bauer DO History of Present Illness This is a 60-year-old male with PMH of alcoholic cirrhosis of liver, history of esophageal varices, thrombocytopenia, spinal stenosis of lumbar spine, history of alcohol and substance abuse and other medical problems listed below who is POD #0 s/p removal of posterior instrumentation L3-L4, revision decompression with medial facetectomy and foraminotomies L3 and posterior spinal fusion L3-L4 by Dr. Bauer. Patient is feeling confused following surgery and is "seeing things fly all over his room". Denies any surgical site pain. No fever, chills, dizziness or headache. No chest pain, shortness of breath or abdominal pain. Reyes catheter in place. Able to answer questions appropriately. Denies any recent alcohol or drug use. Allergies Allergy/AdvReac Type Severity Reaction Status Date / Time No Known Allergies Allergy Verified 05/27/20 08:02 Home Medications Medication Instructions Recorded Confirmed Type diclofenac sodium 2 g TOPICAL TID PRN 02/29/20 05/27/20 History Xifaxan 550 mg PO BID 04/04/20 05/27/20 History cyanocobalamin (vitamin B-12) 100 mcg PO QAM 04/04/20 05/27/20 History duloxetine 30 mg PO HS 04/04/20 05/27/20 History furosemide 40 mg PO BID 04/04/20 05/27/20 History spironolactone 100 mg PO BID 04/04/20 05/27/20 History thiamine mononitrate (vit B1) 100 mg PO QAM 04/04/20 05/27/20 History fluticasone propionate [Flonase 2 spray INTRANASAL DAILY PRN 04/16/20 05/27/20 History Allergy Relief] lactulose [Kristalose] 20 g PO TID 04/16/20 05/27/20 History ondansetron HCl [Zofran] 4 mg PO Q8H PRN 04/16/20 05/27/20 History oxycodone 5 mg PO Q6H PRN 04/16/20 05/27/20 History oxycodone 5 mg PO Q6H PRN #20 tab 05/28/20 Rx tramadol 50 mg PO Q6H PRN #30 tab 05/28/20 Rx Patient History Medical History Anxiety Chronic back pain Confusion Admitted to [facility] 04/2020 for confusion felt 2/2 hepatic encephalopathy vs UTI. Cystitis Depression Genital herpes GERD (gastroesophageal reflux disease) Hearing deficit right ear perf eardrum History of alcohol abuse quit drinking 5 years ago History of anemia History of cirrhosis of liver D/T ALCOHOL History of colon polyps History of hepatitis C Hx of ascites Hx of encephalopathy See recent admission 04/2020 [facility] Hx of esophageal varices 2/2 chronic portal HTN Hx of gynecomastia Hx of thrombocytopenia Baseline platelets ~ 50-75k. 2/2 cirrhosis. Hypertension Medial meniscus tear Osteoarthritis Osteoarthritis of right knee Portal hypertensive gastropathy Portal vein thrombosis hx Urinary tract infection hx, recurrent Surgical History Fusion of spine February 2019 History of tooth extraction all teeth removed History of total right hip arthroplasty 2018 Hx of decompression of ulnar nerve RIGHT Family History Father Diabetes Other No family history of adverse response to anesthesia Social History Smoking Status: Smoker, status unknown Cigarettes Per Day: 1ppd x 2 years; Smoking End Date: 40 years ago; Second Hand Exposure: No; Do You Dip or Chew Tobacco: Yes (1 every 3 days); Hx Alcohol Use: No Hx Substance Use: Yes Last Used Substance: Unknown Last Used Substance Other:: 5 months ago Substance Use Type Other:: 2-3 times a month Preferred Language: Swiss Communication Ability: Effective Square Shear Operator Required: No Beliefs That Will Affect Care: None marital status: Single Current Living Situation: Alone Current Living Situation Comment: [facility] How many Children do You have: 0 Other Information That Helps Us Care for You: No Feels Safe at Home: Yes Safety Concerns: Feels Safe At This Time Assistive Devices: None Assistive Devices Comment: scooter Review of Systems Review of Systems: At least ten systems reviewed and negative except as noted in the HPI. Physical Exam Physical Exam: General Appearance: WD/WN, vitals as above, NAD, sitting up in bed, pleasantly disoriented but easily redirected Head: normocephalic, atraumatic Eyes: normal inspection, PERRL, conjunctivae normal, anicteric sclerae ENT: external ear and nose normal, oropharynx normal Neck: normal visual inspection, trachea midline, no thyromegaly Respiratory: normal respiratory effort, lungs clear to auscultation, no wheeze, rales, rhonchi. No accessory muscle use Cardiovascular: regular rate, rhythm, no murmur, normal peripheral pulses, no BLE edema. Vessels: no JVD Abdomen/GI: normal bowel sounds, soft, nontender, no hepatosplenomegaly Extremities/Musculoskeletal: Lumbar surgical dressing c/d/i. MORAIMA drain visualized. No cyanosis or clubbing, extremities motor strength 5/5 Neurologic: PERRL, EOMI, CN's II-XI intact bilaterally and moves all extremities Psychiatric: A+Ox1 but not to place or time, euthymic affect Skin: no rashes, normal color, warm/dry Results & Data Results & Data ([facility]) Vital Signs (Past 12 Hours) Vital Signs Temp Pulse Pulse Resp BP BP Pulse Ox 05/27/20 13:20 78 16 109/61 96 05/27/20 13:10 74 16 123/71 96 05/27/20 13:00 36.5 C 74 16 110/71 96 05/27/20 12:50 72 16 117/76 96 05/27/20 12:40 80 16 182/104 H 95 05/27/20 12:30 100 H 16 216/114 H 100 05/27/20 12:20 110 H 16 194/107 H 100 05/27/20 12:11 36.0 C L 110 H 16 180/96 H 100 05/27/20 08:05 37 C 80 18 147/86 H 99 Laboratory Results Short CBC 05/27/20 Range/Units 08:33 Plt Count 74 L (130-400) K/uL Diagnostic Findings Lumbar Spine X-Ray 05/27/20 09:35 FL lumbar spine 2-3V CLINICAL HISTORY: Hardware removal and fusion. COMPARISON STUDY: CT of the lumbar spine March 26, 2020. FLUOROSCOPY TIME: 6 seconds. FLUOROSCOPIC IMAGES: 2 FINDINGS: Fluoroscopy was provided during hardware removal with L3-L4 discectomy with interbody spacer placement. Bilateral pedicle screws are noted at the L3 and L4 levels with interconnecting rods. Hardware is intact. IMPRESSION: Fluoroscopy provided during revision L3-L4 decompression and fusion. ACT 112: Negative or not required by law. Electronically signed by: Leonardo Brewster M.D. 05/27/2020 12:49 PM (1) Anemia Anemia type: unspecified type Qualified Code(s): D64.9 - Anemia, unspecified
[2020-05-27] MEDS ORDERED: LACTULOSE SYRUP 20 GM/30 ML UDC PO SCH (15:00)
[2020-05-27 15:30] LABS: Hematocrit (blood only) 36.6 % (42-52); Hemoglobin 12.8 g/dL (14.0-18.0); Mean Corpuscular Hemoglobin 33.4 pg (25-34); Mean Corpuscular Volume 95.6 fL (80-100); RDW Coefficient of Variation 14.5 % (11.5-14.5); RDW Standard Deviation 50.5 fL (36.4-46.3); Red Blood Count 3.83 M/uL (4.7-6.1); White Blood Count 4.23 K/uL (4.8-10.8)
[2020-05-27] MEDS ORDERED: SODIUM CHLORIDE 0.9% 500 ML IV SCH (15:30)
[2020-05-27 15:54] LABS: Mean Platelet Volume 11.7 fL (7.4-10.4); Platelet Count 69 K/uL (130-400); Platelet Estimate Decreased (Normal)
[2020-05-27] MEDS: FUROSEMIDE 40 MG TAB PO SCH (15:59)
[2020-05-27 16:01] LABS: Albumin Level 2.8 gm/dl (3.4-5.0); BUN Creatinine Ratio 18.4 (10-20); Calcium 8.9 mg/dl (8.5-10.1); Est GFR (African American) 114.3; Est GFR (Non-African American) 98.6; Potassium 4.1 mmol/L (3.5-5.1)
[2020-05-27 16:06] LABS: Albumin Globulin Ratio 0.8 (0.9-2); Bilirubin,Total 1.5 mg/dl (0.2-1); Globulin 3.5 gm/dl (2.5-4.0); Phosphorus 3.8 mg/dl (2.5-4.9); Total Protein 6.3 gm/dl (6.4-8.2)
[2020-05-27 16:10] LABS: Amphetamines+Metham, Urine Neg (Neg); Barbiturates, Urine Neg (Neg); Benzodiazepine, Urine Pos (Neg); Cocaine, Urine Neg (Neg); MDMA (Ecstacy), Urine Pos (Neg); Methadone, Urine Neg (Neg); Opiate, Urine Pos (Neg); Phencyclidine, Urine Neg (Neg)
[2020-05-27 16:30] LABS: Appearance Urine Cloudy (Clear); Bacteria Urine Automated Negative (Negative); Blood Urine 3+ (Negative); Epithelial Cell Urine Auto >30 /lpf (0-5); Glucose Urine UA Negative (Negative); Ketones Urine Trace (Negative); Leukocyte Esterase Urine Trace (Negative); Nitrite Urine Negative (Negative); Protein Urine 1+ (Negative); RBC Urine Automated >30 /hpf (0-4); Specific Gravity Urine 1.031 (1.000-1.030); Urobilinogen Urine Negative (Negative)
[2020-05-27] MEDS ORDERED: LACTULOSE PO SCH (16:30)
[2020-05-27 16:33] LABS: Bilirubin Urine 1+ (Negative); Color Urine Dark Yellow
[2020-05-27 16:53] LABS: Cast Urine Automated 0 /lpf (0-5)
[2020-05-27] MEDS: ceFAZolin 2000MG 2,000 MG/15 ML SYR IV SCH (17:26)
[2020-05-27] MEDS ORDERED: LACTULOSE SYRUP 20 GM/30 ML UDC PO ONE (18:01)
[2020-05-27] MEDS ORDERED: LACTULOSE PO ONE (18:45)
[2020-05-27] MEDS ORDERED: GLUCOSE 40% GEL 15 GM TUBE PO PRN (20:55)
[2020-05-27] MEDS ORDERED: DEXTROSE 50% 50 ML SYRINGE IV PRN (20:55)
[2020-05-27] MEDS ORDERED: GLUCOSE 10 TABS/TUBE PO PRN (20:55)
[2020-05-27] MEDS ORDERED: CARBOHYDRATES FOR HYPOGLYCEMIA PO PRN (20:55)
[2020-05-27] MEDS ORDERED: GLUCAGON FOR INJ 1 MG VIAL SQ PRN (20:55)
[2020-05-27] MEDS ORDERED: FUROSEMIDE 40 MG TAB PO SCH (21:00)
[2020-05-27] MEDS ORDERED: DOCUSATE SODIUM/SENNA 50/8.6MG TAB PO SCH (21:00)
[2020-05-27] MEDS ORDERED: LACTULOSE SYRUP 30 GM/45 ML UDP PO SCH (21:00)
--- NOTE | 2020-05-27 21:10 | Communication Note ---
Date of Service: May 27, 2020 Notified by RN around 8:50 PM of patient complaints of double vision when looking at the TV only. Blurred vision not present at other directions of gaze as per RN. Patient denies headache. Denies eye pain. BP 117/63. BSG noted to be 255. Patient self medicated with left over prednisone pills at home for back pain last week. AP Blurred vision ? secondary to steroid induced hyperglycemia Rule out DM ISS BG goal 110-1 40, check hemoglobin A1c May need basal Lantus pending hemoglobin A1c results. ADDENDUM : 2:20 AM BSG recheck post insulin administration 150. No further complaints of double vision as per RN.
[2020-05-27] MEDS: DULoxetine HCL 30 MG CAP PO SCH (21:11)
[2020-05-27] MEDS: SPIRONOLACTONE 100 MG TAB PO SCH (21:12)
[2020-05-27] MEDS: rifAXIMin 550 MG TABLET PO SCH (21:12)
[2020-05-27] MEDS: LACTULOSE PO SCH (21:13)
[2020-05-27] MEDS: INSULIN ASPART 100 UNITS/ML 3 ML PEN SC SCH (21:20)
[2020-05-27] MEDS: oxyCODONE HCL IR 5 MG TAB (IMMEDIATE RELEASE) PO PRN (23:07)
[2020-05-28] MEDS: ceFAZolin 2000MG 2,000 MG/15 ML SYR IV SCH (02:04)
[2020-05-28] MEDS: POLYETHYLENE (MIRALAX) 17 GM PACK PO SCH ×3 (06:14→17:55)
[2020-05-28] MEDS: FUROSEMIDE 40 MG TAB PO SCH ×2 (06:15→15:36)
[2020-05-28 06:38] LABS: Estimated Average Glucose 103 mg/dl; Hemoglobin A1C 5.2 % (4.5-5.6)
[2020-05-28] MEDS: SPIRONOLACTONE 100 MG TAB PO SCH ×2 (08:49→21:08)
[2020-05-28] MEDS: THIAMINE HCL 100 MG TAB PO SCH (08:49)
[2020-05-28] MEDS: rifAXIMin 550 MG TABLET PO SCH ×2 (08:49→21:09)
[2020-05-28] MEDS: CYANOCOBALAMIN (VITAMIN B-12) 100 MCG TABLET PO SCH (08:49)
[2020-05-28] MEDS: LACTULOSE PO SCH ×3 (08:50→21:08)
[2020-05-28] MEDS: INSULIN ASPART 100 UNITS/ML 3 ML PEN SC SCH ×4 (08:54→21:10)
--- NOTE | 2020-05-28 09:18 | Hospitalist Progress Note ---
Date of Service May 28, 2020 Assessment & Plan (1) S/P spinal surgery: (2) Thrombocytopenia: (3) Anemia: (4) History of cirrhosis of liver: (5) Hx of esophageal varices: (6) GERD (gastroesophageal reflux disease): (7) Depression: This is a 60-year-old male with PMH of alcoholic cirrhosis of liver, history of esophageal varices, thrombocytopenia, spinal stenosis of lumbar spine, history of alcohol and substance abuse and other medical problems listed below who is POD #1 s/p removal of posterior instrumentation L3-L4, revision decompression with medial facetectomy and foraminotomies L3 and posterior spinal fusion L3-L4 by Dr. Bauer. Status post spinal surgery POD #1 s/p removal of posterior instrumentation L3-L4, revision decompression with medial facetectomy and foraminotomies L3 and posterior spinal fusion L3-L4 by Dr. Bauer. Per ortho for pain control, wound care, anticoagulation and activities Monitor H&H (hgb 11.5 today, down from 12.8 yesterday), continue incentive spirometry, PT/OT when appropriate Fall precautions and bed alarm in place Alcohol cirrhosis of liver History of esophageal varices Post op delirium from yesterday fully resolved Cirrhosis appears compensated. Continue Lasix, spironolactone, lactulose and Xifaxan as scheduled Thrombocytopenia Chronic, in setting of cirrhosis Platelets 69 today (baseline 50s-70s) Anemia Baseline hgb 11-12. Monitor with daily CBC Depression Continue duloxetine History of alcohol abuse Quit 5 years ago. Continue thiamine, B12 supplementation PCP: Radha Dispo: Per primary service Patient seen in collaboration with Dr. Adame. Please see addendum. Admission and Anticipated Discharge Date Admission Date: May 27, 2020 Subjective Seen and examined in 320-1. Feeling better today. Minimal surgical site discomfort. No fever chills. Denies lightheadedness or headache. No chest pain or shortness of breath. Tolerating diet without issue. Having bowel move ments already on lactulose. Review of Systems Review of Systems: At least ten systems reviewed and negative except as noted in the HPI. Physical Exam Physical Exam: General Appearance: WD/WN, vitals as above, NAD, sitting up in bed, pleasantly disoriented but easily redirected Head: normocephalic, atraumatic Eyes: normal inspection, PERRL, conjunctivae normal, anicteric sclerae ENT: external ear and nose normal, oropharynx normal Neck: normal visual inspection, trachea midline, no thyromegaly Respiratory: normal respiratory effort, lungs clear to auscultation, no wheeze, rales, rhonchi. No accessory muscle use Cardiovascular: regular rate, rhythm, no murmur, normal peripheral pulses, no BLE edema. Vessels: no JVD Abdomen/GI: normal bowel sounds, soft, nontender, no hepatosplenomegaly Extremities/Musculoskeletal: Lumbar surgical dressing c/d/i. MORAIMA drain visualized. No cyanosis or clubbing, extremities motor strength 5/5 Neurologic: PERRL, EOMI, CN's II-XI intact bilaterally and moves all extremities Psychiatric: A+Ox1 but not to place or time, euthymic affect Skin: no rashes, normal color, warm/dry Results & Data Results & Data ([facility]) Vital Signs (Past 12 Hours) Vital Signs Temp Pulse Resp BP Pulse Ox 05/28/20 07:30 36.7 C 74 16 116/55 L 97 05/28/20 02:21 36.8 C 78 18 164/79 H 97 05/27/20 23:12 36.9 C 75 18 124/70 95 Laboratory Results Short CBC 05/27/20 Range/Units 15:23 WBC 4.23 L (4.8-10.8) K/uL Hgb 12.8 L (14.0-18.0) g/dL Hct 36.6 L (42-52) % Plt Count 69 L (130-400) K/uL BMP 05/27/20 15:23 Sodium 138 Potassium 4.1 Chloride 107 Carbon Dioxide 27 BUN 14 Creatinine 0.77 Glucose 114 H Calcium 8.9 Liver Function 05/27/20 Range/Units 15:23 Total Bilirubin 1.5 H (0.2-1) mg/dl AST 48 H (15-37) U/L ALT 30 (12-78) U/L Alkaline Phosphatase 106 (45-117) U/L Albumin 2.8 L (3.4-5.0) gm/dl Urine 05/27/20 Range/Units 15:24 Urine Color Dark Yellow Urine Appearance Cloudy A (Clear) Urine pH 5.0 (4.5-7.5) Ur Specific [place] 1.031 H (1.000-1.030) Urine Protein 1+ H (Negative) Urine Glucose (UA) Negative (Negative) Diagnostic Findings Lumbar Spine X-Ray 05/27/20 09:35 FL lumbar spine 2-3V CLINICAL HISTORY: Hardware removal and fusion. COMPARISON STUDY: CT of the lumbar spine March 26, 2020. FLUOROSCOPY TIME: 6 seconds. FLUOROSCOPIC IMAGES: 2 FINDINGS: Fluoroscopy was provided during hardware removal with L3-L4 discectomy with interbody spacer placement. Bilateral pedicle screws are noted at the L3 and L4 levels with interconnecting rods. Hardware is intact. IMPRESSION: Fluoroscopy provided during revision L3-L4 decompression and fusion. ACT 112: Negative or not required by law. Electronically signed by: Leonardo Brewster M.D. 05/27/2020 12:49 PM (1) Anemia Anemia type: unspecified type Qualified Code(s): D64.9 - Anemia, unspecified
[2020-05-28 09:30] LABS: Hematocrit (blood only) 32.9 % (42-52); Hemoglobin 11.5 g/dL (14.0-18.0); Mean Corpuscular Volume 94.3 fL (80-100); Mean Platelet Volume 11.2 fL (7.4-10.4); Platelet Count 76 K/uL (130-400); RDW Coefficient of Variation 14.3 % (11.5-14.5); RDW Standard Deviation 48.8 fL (36.4-46.3); Red Blood Count 3.49 M/uL (4.7-6.1); White Blood Count 10.89 K/uL (4.8-10.8)
[2020-05-28 09:44] LABS: Albumin Level 2.7 gm/dl (3.4-5.0); BUN Creatinine Ratio 20.8 (10-20); Calcium 8.5 mg/dl (8.5-10.1); Creatinine Clr Calc Pharmacy 83.5 ml/min; Est GFR (African American) 100.4; Est GFR (Non-African American) 86.7; Magnesium 1.9 mg/dl (1.8-2.4); Potassium 4.1 mmol/L (3.5-5.1)
[2020-05-28 09:48] LABS: Albumin Globulin Ratio 0.8 (0.9-2); Bilirubin,Total 1.8 mg/dl (0.2-1); Globulin 3.2 gm/dl (2.5-4.0); Phosphorus 2.7 mg/dl (2.5-4.9); Total Protein 5.9 gm/dl (6.4-8.2)
[2020-05-28 10:09] LABS: Basophils # (auto) 0.01 K/uL (0-0.2); Basophils % (auto) 0.1 %; Immature Granulocytes # (auto) 0.01 K/uL (0.00-0.02); Immature Granulocytes % (auto) 0.1 %; Lymphocytes # (auto) 0.73 K/uL (1.2-3.4); Lymphocytes % (auto) 6.7 %; Monocytes # (auto) 0.71 K/uL (0.11-0.59); Monocytes % (auto) 6.5 %; Neutrophils # (auto) 9.43 K/uL (1.4-6.5); Neutrophils % (auto) 86.6 %
[2020-05-28] MEDS: oxyCODONE HCL IR 5 MG TAB (IMMEDIATE RELEASE) PO PRN (12:28)
--- NOTE | 2020-05-28 14:03 | Orthopedic Progress Note ---
Date of Service May 28, 2020 Assessment & Plan (1) Lumbar radiculopathy: Admission and Anticipated Discharge Date Admission Date: May 27, 2020 At this time initiate physical therapy monitor his MORAIMA output. Hopefully discharge home later after this weekend. Subjective Back pain is controlled leg symptoms markedly improved. Physical Exam Physical Exam: Patient is sitting up in bed. Is good strength testing. Appears comfortable. Results & Data ([facility]) Vital Signs (Past 12 Hours) Vital Signs Temp Pulse Resp BP Pulse Ox 05/28/20 11:56 36.6 C 86 14 126/62 94 05/28/20 07:30 36.7 C 74 16 116/55 L 97 05/28/20 02:21 36.8 C 78 18 164/79 H 97
[2020-05-28] MEDS ORDERED: CHLORASEPTIC 1.4% SOLN 180 ML BTL MT PRN (19:35)
[2020-05-28] MEDS: DULoxetine HCL 30 MG CAP PO SCH (21:07)
[2020-05-29] MEDS: POLYETHYLENE (MIRALAX) 17 GM PACK PO SCH ×4 (00:27→17:31)
[2020-05-29 05:40] LABS: Hematocrit (blood only) 29.5 % (42-52); Hemoglobin 10.4 g/dL (14.0-18.0); Mean Corpuscular Hemoglobin 33.2 pg (25-34); Mean Corpuscular Hgb Conc 35.3 g/dL (32-36); Mean Corpuscular Volume 94.2 fL (80-100); RDW Coefficient of Variation 14.3 % (11.5-14.5); RDW Standard Deviation 48.8 fL (36.4-46.3); Red Blood Count 3.13 M/uL (4.7-6.1); White Blood Count 5.79 K/uL (4.8-10.8)
[2020-05-29 05:49] LABS: Platelet Count 59 K/uL (130-400)
[2020-05-29 06:17] LABS: BUN Creatinine Ratio 29.1 (10-20); Creatinine Clr Calc Pharmacy 114.9 ml/min; Est GFR (African American) 119.6; Est GFR (Non-African American) 103.2; Magnesium 2.4 mg/dl (1.8-2.4); Phosphorus 2.6 mg/dl (2.5-4.9); Potassium 3.8 mmol/L (3.5-5.1)
[2020-05-29] MEDS: CYANOCOBALAMIN (VITAMIN B-12) 100 MCG TABLET PO SCH (08:16)
[2020-05-29] MEDS: FUROSEMIDE 40 MG TAB PO SCH ×2 (08:16→15:29)
[2020-05-29] MEDS: dexAMETHasone 8 MG in SYRINGE 0 ML IV SCH (08:16)
[2020-05-29] MEDS: LACTULOSE PO SCH ×3 (08:17→21:47)
[2020-05-29] MEDS: THIAMINE HCL 100 MG TAB PO SCH (08:17)
[2020-05-29] MEDS: rifAXIMin 550 MG TABLET PO SCH ×2 (08:17→21:47)
[2020-05-29] MEDS: SPIRONOLACTONE 100 MG TAB PO SCH ×2 (08:17→21:48)
[2020-05-29] MEDS: INSULIN ASPART 100 UNITS/ML 3 ML PEN SC SCH ×4 (08:36→21:49)
--- NOTE | 2020-05-29 10:13 | Orthopedic Progress Note ---
Date of Service May 29, 2020 Assessment & Plan (1) Lumbar radiculopathy: Admission and Anticipated Discharge Date Admission Date: May 27, 2020 At this time we will continue physical therapy monitor his MORAIMA output anticipate discharge home Sunday. Subjective Patient's back and leg symptoms are improved. Physical Exam Physical Exam: Patient is standing and ambulating well. Good strength testing. Results & Data ([facility]) Vital Signs (Past 12 Hours) Vital Signs Temp Pulse Resp BP Pulse Ox 05/29/20 08:11 36.5 C 68 18 128/68 98 05/28/20 23:02 36.9 C 88 16 99/48 L 95
--- NOTE | 2020-05-29 10:50 | Hospitalist Progress Note ---
Date of Service May 29, 2020 Assessment & Plan (1) S/P spinal surgery: (2) Thrombocytopenia: (3) Anemia: (4) History of cirrhosis of liver: (5) Hx of esophageal varices: (6) GERD (gastroesophageal reflux disease): (7) Depression: This is a 60-year-old male with PMH of alcoholic cirrhosis of liver, history of esophageal varices, thrombocytopenia, spinal stenosis of lumbar spine, history of alcohol and substance abuse and other medical problems listed below who is POD #2 s/p removal of posterior instrumentation L3-L4, revision decompression with medial facetectomy and foraminotomies L3 and posterior spinal fusion L3-L4 by Dr. Bauer. Status post spinal surgery POD #2 s/p removal of posterior instrumentation L3-L4, revision decompression with medial facetectomy and foraminotomies L3 and posterior spinal fusion L3-L4 by Dr. Bauer. Per ortho for pain control, wound care, anticoagulation and activities Monitor H&H (hgb 10.4 today, down from 12.8 on day of surgery), continue incentive spirometry, PT/OT when appropriate Fall precautions and bed alarm in place Anemia Hemoglobin and hematocrit 10.4 and 29.5 Preop 12.8 Likely in setting of acute blood loss and dilutional Alcohol cirrhosis of liver History of esophageal varices Initially patient experienced postoperative delirium, this has resolved Cirrhosis appears compensated. Continue Lasix, spironolactone, lactulose and Xifaxan as scheduled Thrombocytopenia Chronic, in setting of cirrhosis Platelets 59 today (baseline 50s-70s) Depression Continue duloxetine History of alcohol abuse Quit 5 years ago. Continue thiamine, B12 supplementation PCP: Radha Dispo: Per primary service Patient seen in collaboration with Dr. Adame. Please see addendum. Thank you for this consultation. We will follow the patient with you during their hospital stay. You can reach a member of the [facility] [address] [facility] Hospitalist Team 28/08 via hospitalist role on tiger text. Admission and Anticipated Discharge Date Admission Date: May 27, 2020 Subjective Patient was seen and examined in room 320. Follow-up lumbar surgery and postoperative delirium. He is standing up at bedside today and states, "I am sore from all the therapy." He otherwise feels well and offers no acute concerns. He denies fever, chills, sweats, lightheadedness, dizziness, chest pain, shortness of breath, nausea, vom iting, abdominal pain. He had 2 BMs this morning. He takes lactulose chronically secondary to cirrhosis and maintains approximately 3-4 bowel movements a day. Appetite has been good. He offers no acute concerns. Review of Systems Review of Systems: All systems reviewed & are unremarkable except as noted in HPI & below Physical Exam Physical Exam: Gen: WD/WN, male, standing up at bedside, NAD, A&O x3 HEENT: Normocephalic, atraumatic, conjunctivae moist, sclerae anicteric, mucous membranes moist. Lung: Clear to Auscultation bilaterally, no wheezes/rales/rhonchi Heart: Regular rate, regular rhythm, no murmurs, rubs, or gallops Abdomen: Soft, NT, ND +BS x 4 Extremities: No edema, lumbar dressing CDI, MORAIMA drain with serosanguineous drainage Skin: Warm, no rash, negative turgor. Results & Data Results & Data ([facility]) Vital Signs (Past 12 Hours) Vital Signs Temp Pulse Resp BP Pulse Ox 05/29/20 08:11 36.5 C 68 18 128/68 98 05/28/20 23:02 36.9 C 88 16 99/48 L 95 Laboratory Results Short CBC 05/29/20 Range/Units 05:26 WBC 5.79 (4.8-10.8) K/uL Hgb 10.4 L (14.0-18.0) g/dL Hct 29.5 L (42-52) % Plt Count 59 L (130-400) K/uL BMP 05/29/20 05:26 Sodium 139 Potassium 3.8 Chloride 107 Carbon Dioxide 28 BUN 20 H Creatinine 0.69 Glucose 112 H Calcium 8.0 L Medications Administered Cyanocobalamin (Cyanocobalamin (Vitamin B-12) 100 Mcg Tablet) 100 mcg PO [facility] AMBER Stop: 06/27/20 08:59 Last Admin: 05/29/20 08:16 Dose: 100 mcg Documented by: [id number] Admin: 05/28/20 08:49 Dose: 100 mcg Documented by: [id number] Duloxetine HCl (Duloxetine Hcl 30 Mg Cap) 30 mg PO AMBER Stop: 06/26/20 20:59 Last Admin: 05/28/20 21:07 Dose: 30 mg Documented by: [id number] Admin: 05/27/20 21:11 Dose: 30 mg Documented by: [id number] Furosemide (Furosemide 40 Mg Tab) 40 mg PO BID@0700,1500 AMBER Stop: 06/26/20 14:59 Last Admin: 05/29/20 08:16 Dose: 40 mg Documented by: [id number] Admin: 05/28/20 15:36 Dose: 40 mg Documented by: [id number] Admin: 05/28/20 06:15 Dose: 40 mg Documented by: [id number] Admin: 05/27/20 15:59 Dose: 40 mg Documented by: [id number] Dexamethasone 8 mg/ Syringe 2 mls @ 1 mls/min IV DAILY AMBER Stop: 06/28/20 08:59 Last Admin: 05/29/20 08:16 Dose: 1 mls/min Documented by: [id number] Insulin Aspart (Insulin Aspart 100 Units/Ml 3 Ml Pen) 0 units SC ACHS AMBER Stop: 06/26/20 20:59 Last Admin: 05/29/20 08:36 Dose: Not Given Documented by: [id number] Admin: 05/28/20 21:10 Dose: Not Given Documented by: [id number] Cosigned by: [id number] Admin: 05/28/20 17:49 Dose: 3 units Documented by: [id number] Cosigned by: [id number] Admin: 05/28/20 12:30 Dose: 4 units Documented by: [id number] Cosigned by: [id number] Admin: 05/28/20 08:54 Dose: 5 units Documented by: [id number] Cosigned by: [id number] Admin: 05/27/20 21:20 Dose: 5 units Documented by: [id number] Cosigned by: [id number] Lactulose (Pt Own Med - Lactulose Powder Packet 20 Gm Pack) 30 gm PO TID AMBER Stop: 06/26/20 20:59 Last Admin: 05/29/20 08:17 Dose: 30 gm Documented by: [id number] Admin: 05/28/20 21:08 Dose: 30 gm Documented by: [id number] Admin: 05/28/20 15:37 Dose: 30 gm Documented by: [id number] Admin: 05/28/20 08:50 Dose: 30 gm Documented by: [id number] Admin: 05/27/20 21:13 Dose: 30 gm Documented by: [id number] Oxycodone HCl (Oxycodone Hcl Ir 5 Mg Tab (Immediate Release)) 5 - 10 mg PO Q4H PRN PRN Reason: Moderate-Severe Pain & Pre PT Stop: 06/10/20 14:09 Last Admin: 05/28/20 12:28 Dose: 10 mg Documented by: [id number] Admin: 05/27/20 23:07 Dose: 10 mg Documented by: [id number] Phenol (Chloraseptic 1.4% Soln 180 Ml Btl) 2 sprays MT PRN PRN PRN Reason: Sore Throat Stop: 06/27/20 19:34 Last Admin: 05/28/20 21:14 Dose: 2 sprays Documented by: [id number] Polyethylene Glycol (Polyethylene (Miralax) 17 Gm Pack) 17 gm PO Q6 [facility] Stop: 06/27/20 05:59 Last Admin: 05/29/20 06:08 Dose: Not Given Documented by: [id number] Admin: 05/29/20 00:27 Dose: Not Given Documented by: [id number] Admin: 05/28/20 17:55 Dose: Not Given Documented by: [id number] Admin: 05/28/20 12:33 Dose: Not Given Documented by: [id number] Admin: 05/28/20 06:14 Dose: Not Given Documented by: [id number] Rifaximin (Rifaximin 550 Mg Tablet) 550 mg PO BID [facility] Stop: 06/26/20 20:59 Last Admin: 05/29/20 08:17 Dose: 550 mg Documented by: [id number] Admin: 05/28/20 21:09 Dose: 550 mg Documented by: [id number] Admin: 05/28/20 08:49 Dose: 550 mg Documented by: [id number] Admin: 05/27/20 21:12 Dose: 550 mg Documented by: [id number] Spironolactone (Spironolactone 100 Mg Tab) 100 mg PO BID [facility] Stop: 06/26/20 20:59 Last Admin: 05/29/20 08:17 Dose: 100 mg Documented by: [id number] Admin: 05/28/20 21:08 Dose: 100 mg Documented by: [id number] Admin: 05/28/20 08:49 Dose: 100 mg Documented by: [id number] Admin: 05/27/20 21:12 Dose: 100 mg Documented by: [id number] Thiamine HCl (Thiamine Hcl 100 Mg Tab) 100 mg PO QAM [facility] Stop: 06/27/20 08:59 Last Admin: 05/29/20 08:17 Dose: 100 mg Documented by: [id number] Admin: 05/28/20 08:49 Dose: 100 mg Documented by: [id number] Discontinued Medications Acetaminophen (Acetaminophen 500 Mg Tab) 1,000 mg PO PREOP AMBER Stop: 05/27/20 18:00 Last Admin: 05/27/20 08:29 Dose: Not Given Documented by: [id number] Bacitracin (Bacitracin Inj 50,000 Unit Vial) Confirm Administered Dose 50,000 units .ROUTE .STK-MED ONE Stop: 05/27/20 09:33 Last Admin: 05/27/20 11:03 Dose: 50,000 units Documented by: [id number] Bupivacaine HCl/Epinephrine Bitart (Bupivacaine/Epinephrine 0.5% Mpf 1:200,000 30 Ml Vial) Confirm Administered Dose 30 ml .ROUTE .STK-MED ONE Stop: 05/27/20 09:33 Last Admin: 05/27/20 10:42 Dose: 20 ml Documented by: [id number] Celecoxib (Celebrex 200 Mg Cap) 200 mg PO PREOP AMBER Stop: 05/27/20 18:00 Last Admin: 05/27/20 08:30 Dose: 200 mg Documented by: [id number] Gabapentin (Gabapentin 600 Mg Dose) 600 mg PO PREOP AMBER Stop: 05/27/20 18:00 Last Admin: 05/27/20 08:30 Dose: 600 mg Documented by: [id number] Cefazolin Sodium (Ancef 2000mg) 2,000 mg in 15 mls @ 3.75 mls/min IV PREOP AMBER; Protocol Stop: 05/27/20 18:00 Last Admin: 05/27/20 09:48 Dose: 3.75 mls/min Documented by: [id number] Lactated Ringer's (Lr) 1,000 mls @ 15 mls/hr IV .Q24H AMBER Stop: 05/28/20 05:59 Last Infusion: 05/27/20 09:48 Dose: 0 mls/hr Documented by: [id number] Admin: 05/27/20 08:37 Dose: 15 mls/hr Documented by: [id number] Lactated Ringer's (Lr) 1,000 mls @ 100 mls/hr IV .Q10H AMBER Stop: 06/26/20 14:09 Last Admin: 05/27/20 15:45 Dose: Not Given Documented by: [id number] Cefazolin Sodium (Ancef 2000mg) 2,000 mg in 15 mls @ 3.75 mls/min IV Q8H [facility]; Protocol Stop: 05/28/20 02:03 Last Admin: 05/28/20 02:04 Dose: 3.75 mls/min Documented by: [id number] Admin: 05/27/20 17:26 Dose: 3.75 mls/min Documented by: [id number] Sodium Chloride (Nss) 500 mls @ 80 mls/hr IV .Q6H15M [facility] Stop: 05/27/20 21:44 Last Infusion: 05/27/20 19:29 Dose: 0 mls/hr Documented by: [id number] Admin: 05/27/20 15:59 Dose: 80 mls/hr Documented by: [id number] Labetalol HCl (Labetalol Hcl Iv 5 Mg/Ml 20ml) Confirm Administered Dose 10 mg IV .STK-MED ONE Stop: 05/27/20 12:37 Last Admin: 05/27/20 14:15 Dose: Not Given Documented by: [id number] Labetalol HCl (Labetalol Hcl Iv 5 Mg/Ml 20ml) 10 mg IV Q5M PRN PRN Reason: PACU Use-SBP>160 or DBP>100 Stop: 05/27/20 20:39 Last Admin: 05/27/20 12:42 Dose: 10 mg Documented by: [id number] Cosigned by: [id number] Admin: 05/27/20 12:37 Dose: 10 mg Documented by: [id number] Cosigned by: [id number] Lactulose (Lactulose Powder Packet 20 Gm Pack) 20 gm PO TID [facility] Stop: 06/26/20 16:29 Last Admin: 05/27/20 16:26 Dose: 20 gm Documented by: [id number] Lactulose (Pt Own Med - Lactulose Powder Packet 20 Gm Pack) 40 gm PO NOW ONE Stop: 05/27/20 18:46 Last Admin: 05/27/20 18:37 Dose: 40 gm Documented by: [id number] Meperidine HCl (Meperidine Hcl 25 Mg/Ml Carp/Vial) Confirm Administered Dose 25 mg .ROUTE .STK-MED ONE Stop: 05/27/20 12:23 Last Admin: 05/27/20 14:16 Dose: Not Given Documented by: [id number] Meperidine HCl (Meperidine Hcl 25 Mg/Ml Carp/Vial) 25 mg IV Q5M PRN PRN Reason: PACU Use Only-Pain/Shivering Stop: 05/27/20 20:39 Last Admin: 05/27/20 12:22 Dose: 25 mg Documented by: [id number] Miscellaneous ( Floseal Hemostatic Matrix 10ml) 10 ml TOP ONCE ONE Stop: 05/27/20 10:43 Last Admin: 05/27/20 11:42 Dose: 23 ml Documented by: [id number] Thrombin (Thrombin For Soln 55358 Unit Kit) Confirm Administered Dose 20,000 units .ROUTE .STK-MED ONE Stop: 05/27/20 10:17 Last Admin: 05/27/20 11:42 Dose: 20,000 units Documented by: [id number] (1) Anemia Anemia type: unspecified type Qualified Code(s): D64.9 - Anemia, unspecified
[2020-05-29] MEDS: DULoxetine HCL 30 MG CAP PO SCH (21:47)
[2020-05-30] MEDS: POLYETHYLENE (MIRALAX) 17 GM PACK PO SCH ×4 (00:21→17:54)
[2020-05-30] MEDS: FUROSEMIDE 40 MG TAB PO SCH ×2 (05:56→14:41)
[2020-05-30 06:31] LABS: Hematocrit (blood only) 28.6 % (42-52); Hemoglobin 10.1 g/dL (14.0-18.0); Mean Corpuscular Hemoglobin 33.1 pg (25-34); Mean Corpuscular Hgb Conc 35.3 g/dL (32-36); Mean Corpuscular Volume 93.8 fL (80-100); RDW Coefficient of Variation 14.3 % (11.5-14.5); RDW Standard Deviation 48.9 fL (36.4-46.3); Red Blood Count 3.05 M/uL (4.7-6.1); White Blood Count 6.81 K/uL (4.8-10.8)
[2020-05-30 06:32] LABS: Mean Platelet Volume 10.5 fL (7.4-10.4); Platelet Count 52 K/uL (130-400)
[2020-05-30 07:12] LABS: Calcium 8.3 mg/dl (8.5-10.1); Creatinine Clr Calc Pharmacy 136.7 ml/min; Est GFR (African American) 128.4; Est GFR (Non-African American) 110.8; Potassium 4.5 mmol/L (3.5-5.1)
[2020-05-30] MEDS: rifAXIMin 550 MG TABLET PO SCH ×2 (08:05→20:07)
[2020-05-30] MEDS: CYANOCOBALAMIN (VITAMIN B-12) 100 MCG TABLET PO SCH (08:05)
[2020-05-30] MEDS: dexAMETHasone 8 MG in SYRINGE 0 ML IV SCH (08:05)
[2020-05-30] MEDS: SPIRONOLACTONE 100 MG TAB PO SCH ×2 (08:05→20:08)
[2020-05-30] MEDS: LACTULOSE PO SCH ×3 (08:06→20:08)
[2020-05-30] MEDS: THIAMINE HCL 100 MG TAB PO SCH (08:06)
[2020-05-30] MEDS: INSULIN ASPART 100 UNITS/ML 3 ML PEN SC SCH ×4 (08:19→21:00)
--- NOTE | 2020-05-30 10:47 | Orthopedic Progress Note ---
Date of Service May 30, 2020 Assessment & Plan (1) Lumbar radiculopathy: Admission and Anticipated Discharge Date Admission Date: May 27, 2020 This time we will continue physical therapy anticipate discharge home tomorrow. Subjective Patient's back pain is controlled leg symptoms markedly improved. Physical Exam Physical Exam: Patient appears comfortable is good strength testing. Results & Data ([facility]) Vital Signs (Past 12 Hours) Vital Signs Temp Pulse Resp BP Pulse Ox 05/30/20 07:05 36.7 C 66 16 119/67 97
--- NOTE | 2020-05-30 11:11 | Hospitalist Progress Note ---
Date of Service May 30, 2020 Assessment & Plan (1) S/P spinal surgery: (2) Thrombocytopenia: (3) Anemia: (4) History of cirrhosis of liver: (5) Hx of esophageal varices: (6) GERD (gastroesophageal reflux disease): (7) Depression: This is a 60-year-old male with PMH of alcoholic cirrhosis of liver, history of esophageal varices, thrombocytopenia, spinal stenosis of lumbar spine, history of alcohol and substance abuse and other medical problems listed below who is POD #2 s/p removal of posterior instrumentation L3-L4, revision decompression with medial facetectomy and foraminotomies L3 and posterior spinal fusion L3-L4 by Dr. Bauer. Status post spinal surgery POD #3 s/p removal of posterior instrumentation L3-L4, revision decompression with medial facetectomy and foraminotomies L3 and posterior spinal fusion L3-L4 by Dr. Baure. Per ortho for pain control, wound care, anticoagulation and activities Monitor H&H (hgb 10.1 today, down from 12.8 on day of surgery), continue incentive spirometry, PT/OT when appropriate Fall precautions and bed alarm in place Anemia Hemoglobin and hematocrit 10.1 and 28.6 Preop 12.8 Likely in setting of acute blood loss and dilutional Alcohol cirrhosis of liver History of esophageal varices Initially patient experienced postoperative delirium, this has resolved Cirrhosis appears compensated. Continue Lasix, spironolactone, lactulose and Xifaxan as scheduled Thrombocytopenia Chronic, in setting of cirrhosis Platelets 59 today (baseline 50s-70s) Depression Continue duloxetine History of alcohol abuse Quit 5 years ago. Continue thiamine, B12 supplementation PCP: Radha Dispo: Per primary service Thank you for this consultation. We will follow the patient with you during their hospital stay. You can reach a member of the [facility] Hospitalist Team 28/08 via hospitalist role on tiger text. Admission and Anticipated Discharge Date Admission Date: May 27, 2020 Subjective Pt was seen and examined for post op follow up Pt was walking in the hallway with therapy He said that he feels fine Denies any chest pain. palpitation and Dizziness Review of Systems Review of Systems: All systems reviewed & are unremarkable except as noted in Subjective Physical Exam Physical Exam: Gen: WD/WN, male, standing up at bedside, NAD, A&O x3 HEENT: Normocephalic, atraumatic, conjunctivae moist, sclerae anicteric, mucous membranes moist. Lung: Clear to Auscultation bilaterally, no wheezes/rales/rhonchi Heart: Regular rate, regular rhythm, no murmurs, rubs, or gallops Abdomen: Soft, NT, ND +BS x 4 Extremities: No edema, lumbar dressing CDI, Skin: Warm, no rash, negative turgor. Results & Data Results & Data ([facility]) Vital Signs (Past 12 Hours) Vital Signs Temp Pulse Resp BP Pulse Ox 05/30/20 07:05 36.7 C 66 16 119/67 97 (1) Anemia Anemia type: unspecified type Qualified Code(s): D64.9 - Anemia, unspecified
[2020-05-30] MEDS: oxyCODONE HCL IR 5 MG TAB (IMMEDIATE RELEASE) PO PRN ×2 (14:41→20:12)
[2020-05-30] MEDS: DULoxetine HCL 30 MG CAP PO SCH (20:08)
[2020-05-31] MEDS: POLYETHYLENE (MIRALAX) 17 GM PACK PO SCH ×3 (01:41→12:38)
[2020-05-31] MEDS: LACTULOSE PO SCH (08:51)
[2020-05-31] MEDS: CYANOCOBALAMIN (VITAMIN B-12) 100 MCG TABLET PO SCH (08:52)
[2020-05-31] MEDS: FUROSEMIDE 40 MG TAB PO SCH (08:52)
[2020-05-31] MEDS: THIAMINE HCL 100 MG TAB PO SCH (08:52)
[2020-05-31] MEDS: rifAXIMin 550 MG TABLET PO SCH (08:53)
[2020-05-31] MEDS: SPIRONOLACTONE 100 MG TAB PO SCH (08:53)
[2020-05-31] MEDS: INSULIN ASPART 100 UNITS/ML 3 ML PEN SC SCH ×2 (08:54→12:38)
[2020-05-31] MEDS: dexAMETHasone 8 MG in SYRINGE 0 ML IV SCH (08:54)
--- NOTE | 2020-05-31 10:14 | Discharge Summary ---
Date of Service May 31, 2020 Admission HPI Per Admitting Provider This is a 6-year-old male who presents with chronic persistent back and leg pain. After failing course of nonoperative care is here for surgical invention. Principal Diagnosis Lumbar spinal stenosis with neurogenic claudication Discharge Data Allergies Allergy/AdvReac Type Severity Reaction Status Date / Time No Known Allergies Allergy Verified 05/27/20 08:02 Consultations 05/27/20 14:10 Consult Hospitalist Routine Procedures Performed Operation Date: 05/27/20 09:35 Actual Procedures p L3-L4 Decompression and Fusion, Spinal Cord Monitoring(Not Applicable) - Viraj Bauer DO s L3-L4 Hardware Removal,(Not Applicable) - Viraj Bauer DO Ordered Studies 05/27/20 09:35 FL lumbar spine 2-3V Routine Hospital Course (1) Lumbar radiculopathy: Patient underwent revision decompression fusion tolerated this well was taken to orthopedic for postoperative. Postop day 1 he was up and ambulating progressed to postop day #2 on postop day #3 his pain was well controlled MORAIMA dis continued and discharged home on postop day #4. Discharge orders and instructions found the chart for further review. 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 Activity: As commented below Non-emergency contact: Primary Care Provider Call non-emergency contact if: you have any medication questions Follow-up/Referrals: Najma Garcia MD [Primary Care Provider] - Diet: Regular Addtl Attending Provider Instructions: ACTIVITY RECOMMENDATIONS: SELF CARE INSTRUCTIONS AFTER THORACIC/LUMBAR FUSIONS 1. You may walk to your tolerance. It is good exercise for your legs and back. Expect some back and intermittent leg aches and pains. 2. You may perform "counter-top" level activities (make a sandwich, huber with a project, etc.). 3. No bending or lifting of more than 10 pounds or back twisting of any nature (roll like a log when turning in bed). 4. You may ride in a car for 20-30 minutes at a time. No driving until after your first visit with your doctor. 5. Frequent changes of position and restricting sitting to 30 minutes at a time will help limit the amount of back spasms and stiffness you may experience. 6. You may discontinue the use of ambulatory aids (cane, crutches, etc.) once your strength and confidence allow. 7. You may electric blasting cap assembler the shower and let water strike your incision when you arrive home at least once daily. Do not take a tub bath, sit in a hot tub or go into a swimming pool until after your first recheck in the office. SPECIAL CARE INSTRUCTIONS: VERY IMPORTANT TO READ AND REVIEW A. Your surgical incision has been closed with a cosmetic suture under the skin that will dissolve in about 6 weeks. In 14 days, you can use a pair of clean scissors and cut the suture that is left outside of the skin at th e ends of your incision. 1. The small skin tapes can be removed 7 days after surgery if they have not fallen off by that point. 2. You may keep the wound open to air as much as possible to promote healing after post-op day number 5 unless told otherwise by your doctor. 3. If you think the wound looks like it is becoming infected (redness or worsening drainage) and/or you are experiencing fever, chill or worsening back pain and muscle spasms, contact the office so that we may evaluate you as soon as possible. B. Complications are uncommon, but please contact us if you have any signs or symptoms of: 1. wound infection (fever higher than 102.5 degrees F, redness, separation of wound, drainage, or increasing pain from the incision) 2. blood clots in legs (pain, swelling, redness and warmth in legs) 3. urinary tract infection (fever higher than 102.5 degrees F, burning upon urination or increased frequency of urination) 4. nerve problems (inability to walk on your toes or heels, numbness, loss of bowel or bladder control) 5. any other symptoms that concern you C. Please call the office at if you have any concerns or questions about your operation or recovery. D. No smoking! Smoking drastically decreases the chance of a solid fusion. E. Do not take any anti-inflammatory medications (Indocin, Advil, Motrin, Aspirin, Naprosyn, etc.) as these may inhibit the chance of a solid fusion. Tylenol is okay to take for pain. MANAGING PAIN AFTER SPINAL SURGERY 1. Narcotic medication is intended for short-term use and will be provided for surgical pain. Surgical pain usually lasts for a period of 4-6 weeks. Narcotic medication includes Percocet, Vicodin, Darvocet, Tylenol #3 or Lortab. 2. Longer-term pain is more appropriately treated with non-narcotic medication such as Tylenol ES. 3. Muscle spasm is not appropriately treated with narcotics. Muscle relaxers such as Soma, Flexeril or Skelaxin can be used along with Tylenol ES. 4. Remember that we all live with some "aches and pains". This is not unusual or uncommon after an injury or as we get older. a. Back pain is expected and may include muscle spasms for 4 to 6 weeks after surgery. The pain should gradually improve. If the pain worsens for no apparent reason, please contact the office. b. Intermittent leg pain may also be experienced and should not be concerned about unless it worsens for no apparent reason. If so, please contact the office. 5. We will provide appropriate medication within the normal guidelines of their prescribed use. We will also be very cautious and aware of potential abuse and extended duration of patients' medication needs. a. Pain medications are for your comfort and to assist with sleep and rest so that the tissue can heal. They are not provided in order to return to normal activity and should not be used through the day. To do so or worsening pain at night can result from ongoing tissue damage and development of tolerance to the prescribed medicine. 6. Please allow 2-3 days to process refills. Prescriptions will not be mailed but must be picked up at the office. FOLLOW UP VISIT: Keep your scheduled follow-up appointment. Any questions, please call the office at . Pending Studies at Discharge: No Stand-Alone Forms: [employer], Smoking Cessation Medications and DC Order Prescriptions: New oxycodone 5 mg tablet 5 mg PO Q6H PRN (Reason: pain, severe) Qty: 20 RF: 0 tramadol 50 mg tablet 50 mg PO Q6H PRN (Reason: pain, moderate) Qty: 30 RF: 0 Continued furosemide 40 mg tablet 40 mg PO BID RF: 0 cyanocobalamin (vitamin B-12) 100 mcg tablet 100 mcg PO QAM RF: 0 spironolactone 100 mg tablet 100 mg PO BID RF: 0 duloxetine 30 mg capsule,delayed release(DR/EC) 30 mg PO HS RF: 0 Xifaxan 550 mg tablet 550 mg PO BID RF: 0 thiamine mononitrate (vit B1) 100 mg tablet 100 mg PO QAM RF: 0 diclofenac sodium 1 % gel 2 g topical TID PRN (Reason: Pain) RF: 0 ondansetron HCl [Zofran] 4 mg Tablet 4 mg PO Q8H PRN (Reason: Nausea) RF: 0 Kristalose 20 gram Packet 20 g PO TID RF: 0 fluticasone propionate [Flonase Allergy Relief] 50 mcg/actuation [place],Suspension 2 spray INTRANASAL DAILY PRN (Reason: Allergy Symptoms) RF: 0 oxycodone 5 mg Tablet 5 mg PO Q6H PRN (Reason: Pain) RF: 0 Discharge Orders: Discharge Order (Routine); Ordered 05/31/20 Ordered By: Viraj Bauer Admission Data Admit Date/Time: 05/27/20 12:28 Attending Provider: Viraj Bauer Admit Provider: Viraj Bauer Primary Care Provider: Najma Garcia Other Providers: Ct Healy ; Mateus Alvarez [facility] ; [facility] ; [place] ; Elizabeth Adame
--- NOTE | 2020-05-31 11:45 | Hospitalist Progress Note ---
Date of Service May 31, 2020 Assessment & Plan (1) S/P spinal surgery: (2) Thrombocytopenia: (3) Anemia: (4) History of cirrhosis of liver: (5) Hx of esophageal varices: (6) GERD (gastroesophageal reflux disease): (7) Depression: This is a 60-year-old male with PMH of alcoholic cirrhosis of liver, history of esophageal varices, thrombocytopenia, spinal stenosis of lumbar spine, history of alcohol and substance abuse and other medical problems listed below who is POD #2 s/p removal of posterior instrumentation L3-L4, revision decompression with medial facetectomy and foraminotomies L3 and posterior spinal fusion L3-L4 by Dr. Bauer. Status post spinal surgery POD #4 s/p removal of posterior instrumentation L3-L4, revision decompression with medial facetectomy and foraminotomies L3 and posterior spinal fusion L3-L4 by Dr. Bauer. Per ortho for pain control, wound care, anticoagulation and activities Monitor H&H (hgb 10.1 today, down from 12.8 on day of surgery), continue incentive spirometry, PT/OT when appropriate Follow up with ortho Fall precautions Anemia Hemoglobin and hematocrit 10.1 and 28.6 Preop 12.8 Likely in setting of acute blood loss and dilutional Alcohol cirrhosis of liver History of esophageal varices Initially patient experienced postoperative delirium, this has resolved Cirrhosis appears compensated. Continue Lasix, spironolactone, lactulose and Xifaxan as scheduled Thrombocytopenia Chronic, in setting of cirrhosis Platelets 59 today (baseline 50s-70s) Depression Continue duloxetine History of alcohol abuse Quit 5 years ago. Continue thiamine, B12 supplementation PCP: Radha Dispo: Per primary service Thank you for this consultation. We will follow the patient with you during their hospital stay. You can reach a member of the [facility] Hospitalist Team 28/08 via hospitalist role on tiger text. Admission and Anticipated Discharge Date Admission Date: May 27, 2020 Subjective Pt was seen and examined for post op follow up Sitting in bed with no distress He said that he feels fine He is going to discharge today Denies any chest pain. palpitation and Dizziness Review of Systems Review of Systems: All systems reviewed & are unremarkable except as noted in Subjective Physical Exam Physical Exam: Gen: WD/WN, male, standing up at bedside, NAD, A&O x3 HEENT: Normocephalic, atraumatic, conjunctivae moist, sclerae anicteric, mucous membranes moist. Lung: Clear to Auscultation bilaterally, no wheezes/rales/rhonchi Heart: Regular rate, regular rhythm, no murmurs, rubs, or gallops Abdomen: Soft, NT, ND +BS x 4 Extremities: No edema, lumbar dressing CDI, Skin: Warm, no rash, negative turgor. Results & Data Results & Data ([facility]) Vital Signs (Past 12 Hours) Vital Signs Temp Pulse Resp BP Pulse Ox 05/31/20 07:08 36.7 C 67 15 121/71 97 (1) Anemia Anemia type: unspecified type Qualified Code(s): D64.9 - Anemia, unspecified
[2020-06-02 11:02] LABS: 7-Aminoclonaz, Confirm NEGATIVE ng/mL (<25); Codeine Urine NEGATIVE ng/mL (<50); Hydro-Alp Ur, GC/MS NEGATIVE ng/mL (<25); Hydrocodone Urine NEGATIVE ng/mL (<50); Hydromor Urine 2920 ng/mL (<50); Hydroxyethylflurazepam, Conf NEGATIVE ng/mL (<50); Hydroxymidazolam Ur, GC/MS >2000 ng/mL (<50); Hydroxytriazolam NEGATIVE ng/mL (<50); Lorazepam, Ur GC/MS NEGATIVE ng/mL (<50); MDA negative; MDEA negative; MDMA (Ecstasy) Urine, Confirm negative; Morphine Urine NEGATIVE ng/mL (<50); Nordiazepam, Confirm NEGATIVE ng/mL (<50); Norhydrocodone Conf Ur NEGATIVE ng/mL (<50); Noroxycodone Urine 2600 ng/mL (<50); Oxazepam Ur, GC/MS NEGATIVE ng/mL (<50); Oxycodone Urine 1020 ng/mL (<50); Oxymorph Urine 266 ng/mL (<50); Temazepam, Confirm NEGATIVE ng/mL (<50)
== END 2020-05-31 15:15 | disposition home health service (06) | DRG 454 ==
LOC: ASU 07:44 → 3E 12:28

== ENCOUNTER 2020-09-19 12:53 | Inpatient (IN) ==
--- NOTE | 2020-09-19 13:50 | Emergency Department Note ---
Impression & Plan Acute confusion, Hyperammonemia, Weakness, Slurred speech, Acute UTI ED Provider Note NAME: FABIANA LARRY AGE: 60 SEX: M : 1960 ARRIVES VIA: Ambulance INFORMANT: [Patient][ems] ED PROVIDER(S): [Jamil Leiva MD] CHIEF COMPLAINT: Infusion HISTORY OF PRESENT ILLNESS: The patient is a 60-year-old male who presents by EMS for confusion. He by report had a high ammonia level on recent laboratory testing. As per EMS, the patient was found sitting on the floor in his bathroom. He was quite confused but did agree to come to the hospital. The patient is a terrible historian. He admits to drinking alcohol recently. He describes some diffuse, mild abdominal discomfort. He denies falling. The patient denies any previous stroke. No further history is really obtainable given his mental state. REVIEW OF SYSTEMS: Unobtainable given the mental state. PMHx/PSHx: See Below SOCIAL HISTORY: See Below. PHYSICAL EXAM: GENERAL: Patient is in no acute distress. HEENT: No acute trauma, normocephalic atraumatic, mucous membranes moist, no nasal congestion, no scleral icterus. NECK: No stridor, no adenopathy, no meningismus, trachea is midline. LUNGS: Clear to auscultation bilaterally when listening anterior, no wheeze, no rhonchi, breath sounds equal. HEART: Without murmurs gallops or rubs, regular rate and rhythm. ABDOMEN: Soft, mildly diffusely tender, bowel sounds positive, no hernias, no peritonitis. EXTREMITIES: No cyanosis, moderate bilateral pedal edema, full range of motion of all the joints without pain or difficulty, no signs for acute trauma. NEUROLOGIC: Awake but somnolent. Moves all extremities. Does not slur his speech, confused. SKIN: No rash, no jaundice, no diaphoresis. Groin: No erythema to suggest cellulitis. DIFFERENTIAL DIAGNOSIS: Infection, dehydration, metabolic abnormality, hypo/hyperglycemia, alcohol abuse, liver or renal failure, COVID-19, electrolyte disturbance, anemia, hypo catina, cardiac sources, intracerebral event, toxicologic issues, stroke, TIA, as well as other pathologies. EMERGENCY DEPARTMENT COURSE/PROCEDURES: ECG: Indication was weakness and confusion. The ECG shows a sinus rhythm with a rate of 76. There is an old septal infarct. No ST elevation, no PVCs. The QTc is 470. Continuous Cardiac Monitoring: An order was placed for continuous cardiac monitoring. The monitor shows a rate of 86 with normal sinus rhythm. Critical Care Note: I have personally spent 39 minutes of critical care time in the direct management of this patient. This includes bedside care, inter pretation of diagnostic studies, and testing, discussion with consultants, patient, and family members, and other required patient management activities. This 39 minutes is in excess of all separately billable procedures. MEDICAL DECISION MAKING: There is a lower white blood cell count, this has been demonstrated before. There is no anemia. Platelet count was low but at baseline when looking back at previous testing. There was no coagulopathy. No significant electrolyte abnormality or kidney failure. Lactic acid level was not elevated making sepsis less likely. There were some subtle liver enzyme elevations consistent with his liver disease. Total CK was only around 300, no significant elevation that would indicate rhabdomyolysis. ECG showed a sinus rhythm, no acute ischemia. Cardiac enzyme testing x1 was not consistent with acute cardiac injury. Patient appeared to be in a euthyroid state. Ammonia level was quite high at 93. Urinalysis returned consistent with possible infection. Urine tox returned negative. Alcohol level returned undetectable. Covid test returned negative. Chest x-ray did not show pneumonia or CHF. Brain CT showed no acute bleed or mass-effect. On exam, the patient was confused, slurring his speech and quite somnolent. No one-sided weakness noted. The patient received IV ceftriaxone as antibiotic therapy. The patient requires a hospital stay. He is in no condition to be discharged home. He has had presentations similar to today's presentation. I spoke with the patient, I talked with case maker. The on-call hospitalist has been consulted. I do think the elevation in his ammonia level could explain his confusion and slurred speech. Certainly, the UTI could be contributing. Past Med/Surg History Medical History Anxiety Chronic back pain Confusion Admitted to [facility] 04/2020 for confusion felt 2/2 hepatic encephalopathy vs UTI. Depression GERD (gastroesophageal reflux disease) Hearing deficit right ear perf eardrum History of alcohol abuse quit drinking 5 years ago History of anemia History of cirrhosis of liver D/T ALCOHOL History of hepatitis C Hx of ascites Hx of encephalopathy See recent admission 04/2020 [facility] Hx of esophageal varices 2/2 chronic portal HTN Hx of gynecomastia Hx of thrombocytopenia Baseline platelets ~ 50-75k. 2/2 cirrhosis. Hypertension Osteoarthritis of right knee Portal hypertensive gastropathy Portal vein thrombosis hx Urinary tract infection hx, recurrent Surgical History (Updated 08/24/20 @ 12:28 by Quinn Allen, DO) Fusion of spine February 2019 History of colonoscopy with polypectomy History of esophagogastroduodenoscopy (EGD) History of lumbar spinal fusion (~05/27/20) Dr. Bauer @ [facility] History of tooth extraction all teeth removed History of total right hip arthroplasty 2018 Hx of decompression of ulnar nerve RIGHT Family History Father Diabetes Other No family history of adverse response to anesthesia Social History Smoking Status: Never smoker Cigarettes Per Day: 1ppd x 2 years; Second Hand Exposure: No; Hx Alcohol Use: No Hx Substance Use: Yes (smokes marijuana once a month) Last Used Substance: Unknown Last Used Substance Other:: 5 months ago Substance Use Type Other:: 2-3 times a month Preferred Language: [place] African Communication Ability: Effective Carousel Operator Required: No Beliefs That Will Affect Care: None marital status: Single Current Living Situation: Alone Current Living Situation Comment: [facility] How many Children do You have: 0 Feels Safe at Home: Yes Allergies Allergies Allergy/AdvReac Type Severity Reaction Status Date / Time No Known Allergies Allergy Verified 09/19/20 14:12 Home Meds Home Medications Medication Instructions Recorded Confirmed diclofenac sodium 1 % topical gel 2 g TOPICAL TID PRN 02/29/20 09/19/20 cyanocobalamin (vitamin B-12) 100 100 mcg PO QAM 04/04/20 09/19/20 mcg tablet duloxetine 30 mg capsule,delayed 30 mg PO HS 04/04/20 09/19/20 release furosemide 40 mg tablet 40 mg PO BID 04/04/20 09/19/20 rifaximin 550 mg tablet (Xifaxan) 550 mg PO BID 04/04/20 09/19/20 spironolactone 100 mg tablet 100 mg PO BID 04/04/20 09/19/20 thiamine mononitrate (vit B1) 100 100 mg PO QAM 04/04/20 09/19/20 mg tablet fluticasone propionate 50 2 spray INTRANASAL DAILY PRN 04/16/20 09/19/20 mcg/actuation nasal spray,suspension (Flonase Allergy Relief) cyclobenzaprine 5 mg tablet 5 mg PO HS 09/19/20 09/19/20 ferrous sulfate 325 mg (65 mg 325 mg PO BID 09/19/20 09/19/20 iron) tablet folic acid 1 mg tablet 1 mg PO DAILY 09/19/20 09/19/20 lactulose 10 gram/15 mL oral syrup 20 g PO TID 09/19/20 09/19/20 oxycodone 10 mg tablet 10 mg PO Q6 PRN 09/19/20 09/19/20 pantoprazole 40 mg tablet,delayed 40 mg PO DAILY 09/19/20 09/19/20 release potassium chloride 20 mEq oral 20 meq PO DAILY 09/19/20 09/19/20 packet Results & Data (ED) Vital Signs Vital Signs - 24 hr 09/19/20 13:15 09/19/20 13:48 Temperature 36.8 C Temperature Source Oral Pulse Rate 86 Pulse Rate [Apical] 86 Respiratory Rate 17 20 Blood Pressure 146/82 H Blood Pressure [Right Arm] 146/82 H Blood Pressure Mean 103 Blood Pressure Mean [Right Arm] 103 Blood Pressure Position Lying Blood Pressure Position [Right Arm] Lying Pulse Oximetry 99 99 Oxygen Delivery Method Room Air Room Air Sepsis Recent Fever Within 48 Hours No Sepsis New/Unexplained Change in Mental Status Yes Sepsis Action Taken by Nursing No Action Required Home Medications Current Medication List: was personally reviewed by me Laboratory Data Attestation: I reviewed the patient's lab results. Result diagrams: 09/19/20 14:15 09/19/20 14:14 Lab Results 09/19/20 09/19/20 09/19/20 Range/Units 13:51 13:51 13:51 WBC (4.8-10.8) K/uL RBC (4.7-6.1) M/uL Hgb (14.0-18.0) g/dL Hct (42-52) % MCV (80-100) fL MCH (25-34) pg MCHC (32-36) g/dL RDW Std Deviation (36.4-46.3) fL RDW Coeff of Abhijit (11.5-14.5) % Plt Count (130-400) K/uL MPV (7.4-10.4) fL Immature Gran % (Auto) % Neut % (Auto) % Lymph % (Auto) % [place] % (Auto) % Eos % (Auto) % Baso % (Auto) % Neut # (Auto) (1.4-6.5) K/uL Lymph # (Auto) (1.2-3.4) K/uL [place] # (Auto) (0.11-0.59) K/uL Eos # (Auto) (0-0.5) K/uL Baso # (Auto) (0-0.2) K/uL Immature Gran # (Auto) (0.00-0.02) K/uL PT (9.0-12.0) Seconds INR (0.9-1.1) APTT (21.0-31.0) Seconds PTT Ratio Sodium (136-145) mmol/L Potassium (3.5-5.1) mmol/L Chloride (98-107) mmol/L Carbon Dioxide (21-32) mmol/L Anion Gap (3-11) BUN (7-18) mg/dl Creatinine (0.6-1.4) mg/dl Est Cr Clr Drug Dosing ml/min Est GFR ( Amer) ml/min Est GFR (Non-Af Amer) ml/min BUN/Creatinine Ratio (10-20) Glucose (70-99) mg/dl Lactate (0.4-2.0) mmol/L Calcium (8.5-10.1) mg/dl Magnesium (1.8-2.4) mg/dl Total Bilirubin (0.2-1) mg/dl AST (15-37) U/L ALT (12-78) U/L Alkaline Phosphatase (45-117) U/L Ammonia (11-32) umol/L Total Creatine Kinase (39-308) U/L Troponin I (0-0.045) ng/ml Total Protein (6.4-8.2) gm/dl Albumin (3.4-5.0) gm/dl Globulin (2.5-4.0) gm/dl Albumin/Globulin Ratio (0.9-2) TSH (0.300-4.500) uIu/ml Urine Color Yellow Urine Appearance Clear (Clear) Urine pH 8.0 H (4.5-7.5) Ur Specific [place] 1.005 (1.000-1.030) Urine Protein Negative (Negative) Urine Glucose (UA) Negative (Negative) Urine Ketones Negative (Negative) Urine Blood Trace H (Negative) Urine Nitrite Negative (Negative) Urine Bilirubin Negative (Negative) Urine Urobilinogen Negative (Negative) Ur Leukocyte Esterase 2+ H (Negative) Urine WBC (Auto) >30 H (0-5) /hpf Urine RBC (Auto) 0-4 (0-4) /hpf U Hyaline Cast (Auto) 1-5 (0-5) /lpf U Epithel Cells (Auto) 0-5 (0-5) /lpf Urine Bacteria (Auto) 2+ H (Negative) Urine Opiates Screen Neg (Neg) Ur Methadone, Qual Neg (Neg) Urine Barbiturates Neg (Neg) Ur Phencyclidine (PCP) Neg (Neg) U Amphetamin/Meth Scrn Neg (Neg) MDMA (Ecstasy) Screen Neg (Neg) U Benzodiazepines Scrn Neg (Neg) Ur Cocaine Metabolite Neg (Neg) U Marijuana (THC) Screen Neg (Neg) Ethyl Alcohol mg/dL (0-3) mg/dl COVID-19 Eval Order Covid19 at [facility] SARS-CoV-2 (PCR) (Negative) 09/19/20 09/19/20 09/19/20 Range/Units 13:51 14:14 14:14 WBC (4.8-10.8) K/uL RBC (4.7-6.1) M/uL Hgb (14.0-18.0) g/dL Hct (42-52) % MCV (80-100) fL MCH (25-34) pg MCHC (32-36) g/dL RDW Std Deviation (36.4-46.3) fL RDW Coeff of Abhijit (11.5-14.5) % Plt Count (130-400) K/uL MPV (7.4-10.4) fL Immature Gran % (Auto) % Neut % (Auto) % Lymph % (Auto) % [place] % (Auto) % Eos % (Auto) % Baso % (Auto) % Neut # (Auto) (1.4-6.5) K/uL Lymph # (Auto) (1.2-3.4) K/uL [place] # (Auto) (0.11-0.59) K/uL Eos # (Auto) (0-0.5) K/uL Baso # (Auto) (0-0.2) K/uL Immature Gran # (Auto) (0.00-0.02) K/uL PT 11.5 (9.0-12.0) Seconds INR 1.1 (0.9-1.1) APTT 25.6 (21.0-31.0) Seconds PTT Ratio 1.0 Sodium 141 (136-145) mmol/L Potassium 4.6 (3.5-5.1) mmol/L Chloride 111 H (98-107) mmol/L Carbon Dioxide 23 (21-32) mmol/L Anion Gap 7.0 (3-11) BUN 13 (7-18) mg/dl Creatinine 0.80 (0.6-1.4) mg/dl Est Cr Clr Drug Dosing 98.5 ml/min Est GFR ( Amer) 112.5 ml/min Est GFR (Non-Af Amer) 97.1 ml/min BUN/Creatinine Ratio 16.4 (10-20) Glucose 83 (70-99) mg/dl Lactate (0.4-2.0) mmol/L Calcium 9.6 (8.5-10.1) mg/dl Magnesium 2.3 (1.8-2.4) mg/dl Total Bilirubin 1.6 H (0.2-1) mg/dl AST 63 H (15-37) U/L ALT 42 (12-78) U/L Alkaline Phosphatase 116 (45-117) U/L Ammonia (11-32) umol/L Total Creatine Kinase 354 H (39-308) U/L Troponin I < 0.015 (0-0.045) ng/ml Total Protein 8.0 (6.4-8.2) gm/dl Albumin 3.7 (3.4-5.0) gm/dl Globulin 4.3 H (2.5-4.0) gm/dl Albumin/Globulin Ratio 0.9 (0.9-2) TSH 1.520 (0.300-4.500) uIu/ml Urine Color Urine Appearance (Clear) Urine pH (4.5-7.5) Ur Specific [place] (1.000-1.030) Urine Protein (Negative) Urine Glucose (UA) (Negative) Urine Ketones (Negative) Urine Blood (Negative) Urine Nitrite (Negative) Urine Bilirubin (Negative) Urine Urobilinogen (Negative) Ur Leukocyte Esterase (Negative) Urine WBC (Auto) (0-5) /hpf Urine RBC (Auto) (0-4) /hpf U Hyaline Cast (Auto) (0-5) /lpf U Epithel Cells (Auto) (0-5) /lpf Urine Bacteria (Auto) (Negative) Urine Opiates Screen (Neg) Ur Methadone, Qual (Neg) Urine Barbiturates (Neg) Ur Phencyclidine (PCP) (Neg) U Amphetamin/Meth Scrn (Neg) MDMA (Ecstasy) Screen (Neg) U Benzodiazepines Scrn (Neg) Ur Cocaine Metabolite (Neg) U Marijuana (THC) Screen (Neg) Ethyl Alcohol mg/dL (0-3) mg/dl COVID-19 Eval Order SARS-CoV-2 (PCR) NEGATIVE (Negative) 09/19/20 09/19/20 09/19/20 Range/Units 14:15 14:15 14:15 WBC 3.76 L (4.8-10.8) K/uL RBC 4.81 (4.7-6.1) M/uL Hgb 15.7 (14.0-18.0) g/dL Hct 45.3 (42-52) % MCV 94.2 (80-100) fL MCH 32.6 (25-34) pg MCHC 34.7 (32-36) g/dL RDW Std Deviation 55.3 H (36.4-46.3) fL RDW Coeff of Abhijit 15.9 H (11.5-14.5) % Plt Count 68 L (130-400) K/uL MPV 10.8 H (7.4-10.4) fL Immature Gran % (Auto) 0.0 % Neut % (Auto) 72.8 % Lymph % (Auto) 18.1 % [place] % (Auto) 6.4 % Eos % (Auto) 1.6 % Baso % (Auto) 1.1 % Neut # (Auto) 2.74 (1.4-6.5) K/uL Lymph # (Auto) 0.68 L (1.2-3.4) K/uL [place] # (Auto) 0.24 (0.11-0.59) K/uL Eos # (Auto) 0.06 (0-0.5) K/uL Baso # (Auto) 0.04 (0-0.2) K/uL Immature Gran # (Auto) 0.00 (0.00-0.02) K/uL PT (9.0-12.0) Seconds INR (0.9-1.1) APTT (21.0-31.0) Seconds PTT Ratio Sodium (136-145) mmol/L Potassium (3.5-5.1) mmol/L Chloride (98-107) mmol/L Carbon Dioxide (21-32) mmol/L Anion Gap (3-11) BUN (7-18) mg/dl Creatinine (0.6-1.4) mg/dl Est Cr Clr Drug Dosing ml/min Est GFR ( Amer) ml/min Est GFR (Non-Af Amer) ml/min BUN/Creatinine Ratio (10-20) Glucose (70-99) mg/dl Lactate 2.0 (0.4-2.0) mmol/L Calcium (8.5-10.1) mg/dl Magnesium (1.8-2.4) mg/dl Total Bilirubin (0.2-1) mg/dl AST (15-37) U/L ALT (12-78) U/L Alkaline Phosphatase (45-117) U/L Ammonia 93.5 H (11-32) umol/L Total Creatine Kinase (39-308) U/L Troponin I (0-0.045) ng/ml Total Protein (6.4-8.2) gm/dl Albumin (3.4-5.0) gm/dl Globulin (2.5-4.0) gm/dl Albumin/Globulin Ratio (0.9-2) TSH (0.300-4.500) uIu/ml Urine Color Urine Appearance (Clear) Urine pH (4.5-7.5) Ur Specific [place] (1.000-1.030) Urine Protein (Negative) Urine Glucose (UA) (Negative) Urine Ketones (Negative) Urine Blood (Negative) Urine Nitrite (Negative) Urine Bilirubin (Negative) Urine Urobilinogen (Negative) Ur Leukocyte Esterase (Negative) Urine WBC (Auto) (0-5) /hpf Urine RBC (Auto) (0-4) /hpf U Hyaline Cast (Auto) (0-5) /lpf U Epithel Cells (Auto) (0-5) /lpf Urine Bacteria (Auto) (Negative) Urine Opiates Screen (Neg) Ur Methadone, Qual (Neg) Urine Barbiturates (Neg) Ur Phencyclidine (PCP) (Neg) U Amphetamin/Meth Scrn (Neg) MDMA (Ecstasy) Screen (Neg) U Benzodiazepines Scrn (Neg) Ur Cocaine Metabolite (Neg) U Marijuana (THC) Screen (Neg) Ethyl Alcohol mg/dL (0-3) mg/dl COVID-19 Eval Order SARS-CoV-2 (PCR) (Negative) 09/19/20 Range/Units 14:15 WBC (4.8-10.8) K/uL RBC (4.7-6.1) M/uL Hgb (14.0-18.0) g/dL Hct (42-52) % MCV (80-100) fL MCH (25-34) pg MCHC (32-36) g/dL RDW Std Deviation (36.4-46.3) fL RDW Coeff of Abhijit (11.5-14.5) % Plt Count (130-400) K/uL MPV (7.4-10.4) fL Immature Gran % (Auto) % Neut % (Auto) % Lymph % (Auto) % [place] % (Auto) % Eos % (Auto) % Baso % (Auto) % Neut # (Auto) (1.4-6.5) K/uL Lymph # (Auto) (1.2-3.4) K/uL [place] # (Auto) (0.11-0.59) K/uL Eos # (Auto) (0-0.5) K/uL Baso # (Auto) (0-0.2) K/uL Immature Gran # (Auto) (0.00-0.02) K/uL PT (9.0-12.0) Seconds INR (0.9-1.1) APTT (21.0-31.0) Seconds PTT Ratio Sodium (136-145) mmol/L Potassium (3.5-5.1) mmol/L Chloride (98-107) mmol/L Carbon Dioxide (21-32) mmol/L Anion Gap (3-11) BUN (7-18) mg/dl Creatinine (0.6-1.4) mg/dl Est Cr Clr Drug Dosing ml/min Est GFR ( Amer) ml/min Est GFR (Non-Af Amer) ml/min BUN/Creatinine Ratio (10-20) Glucose (70-99) mg/dl Lactate (0.4-2.0) mmol/L Calcium (8.5-10.1) mg/dl Magnesium (1.8-2.4) mg/dl Total Bilirubin (0.2-1) mg/dl AST (15-37) U/L ALT (12-78) U/L Alkaline Phosphatase (45-117) U/L Ammonia (11-32) umol/L Total Creatine Kinase (39-308) U/L Troponin I (0-0.045) ng/ml Total Protein (6.4-8.2) gm/dl Albumin (3.4-5.0) gm/dl Globulin (2.5-4.0) gm/dl Albumin/Globulin Ratio (0.9-2) TSH (0.300-4.500) uIu/ml Urine Color Urine Appearance (Clear) Urine pH (4.5-7.5) Ur Specific [place] (1.000-1.030) Urine Protein (Negative) Urine Glucose (UA) (Negative) Urine Ketones (Negative) Urine Blood (Negative) Urine Nitrite (Negative) Urine Bilirubin (Negative) Urine Urobilinogen (Negative) Ur Leukocyte Esterase (Negative) Urine WBC (Auto) (0-5) /hpf Urine RBC (Auto) (0-4) /hpf U Hyaline Cast (Auto) (0-5) /lpf U Epithel Cells (Auto) (0-5) /lpf Urine Bacteria (Auto) (Negative) Urine Opiates Screen (Neg) Ur Methadone, Qual (Neg) Urine Barbiturates (Neg) Ur Phencyclidine (PCP) (Neg) U Amphetamin/Meth Scrn (Neg) MDMA (Ecstasy) Screen (Neg) U Benzodiazepines Scrn (Neg) Ur Cocaine Metabolite (Neg) U Marijuana (THC) Screen (Neg) Ethyl Alcohol mg/dL < 3.0 (0-3) mg/dl COVID-19 Eval Order SARS-CoV-2 (PCR) (Negative) Administered Medications Discontinued Medications Ceftriaxone Sodium (Rocephin) 2,000 mg in 70 mls @ 140 mls/hr IV NOW STA Stop: 09/19/20 14:59 Last Infusion: 09/19/20 15:22 Dose: 0 mls/hr Documented by: [id number] Admin: 09/19/20 14:52 Dose: 140 mls/hr Documented by: [id number] Imaging Data Radiologist's Impression: Chest X-Ray 09/19/20 13:38 XR chest 1V portable HISTORY: weakness COMPARISON: Chest 04/29/2020. FINDINGS: A few small bibasilar linear densities consistent with subsegmental atelectasis. Otherwise, lungs are clear. No pleural effusions. No pneumothorax. No evidence for pulmonary edema. The heart is normal in size. Pericardial calcifications are again noted. IMPRESSION: No significant change compared to the prior study. No acute process. ACT 112: Negative or not required by law. Electronically signed by: Ángel Wilson M.D. 09/19/2020 2:[address] 09/19/20 13:[address] DOSE: 537.48 mGy.cm HISTORY: confusion TECHNIQUE: Multiaxial CT images of the head were performed without the use of intravenous contrast. Automated exposure control was utilized for this study. A dose lowering technique was utilized adhering to the principles of ALARA. Comparison: Head CT 04/04/2020. Findings: The paranasal sinuses and mastoid air cells are clear. The calvarium and skull base are intact. The ventricles and sulci are within normal limits. There is no mass, hematoma, midline shift, or acute infarct. Impression: No acute intracranial abnormality. ACT 112: Negative or not required by law. Electronically signed by: Ángel Wilson M.D. 09/19/2020 2:04 PM Discharge Plan Visit Data Chief Complaint: Abnormal Labs/Diagnostic Testing ED Provider: Jamil Leiva Discharge Problem: Acute confusion, Hyperammonemia, Weakness, Slurred speech, Acute UTI Patient Disposition: Admitted As Inpatient Condition: Fair Forms Stand Alone Forms: [facility] [employer] Prescriptions Prescriptions: No Action furosemide 40 mg tablet 40 mg PO BID RF: 0 cyanocobalamin (vitamin B-12) 100 mcg tablet 100 mcg PO QAM RF: 0 spironolactone 100 mg tablet 100 mg PO BID RF: 0 duloxetine 30 mg capsule,delayed release(DR/EC) 30 mg PO HS RF: 0 Xifaxan 550 mg tablet 550 mg PO BID RF: 0 thiamine mononitrate (vit B1) 100 mg tablet 100 mg PO QAM RF: 0 diclofenac sodium 1 % gel 2 g topical TID PRN (Reason: Pain) RF: 0 fluticasone propionate [Flonase Allergy Relief] 50 mcg/actuation [place],Suspension 2 spray INTRANASAL DAILY PRN (Reason: Allergy Symptoms) RF: 0 folic acid 1 mg tablet 1 mg PO DAILY RF: 0 pantoprazole 40 mg tablet,delayed release (DR/EC) 40 mg PO DAILY RF: 0 potassium chloride 20 mEq packet 20 meq PO DAILY RF: 0 oxycodone 10 mg tablet 10 mg PO Q6 PRN (Reason: Pain, Severe) RF: 0 lactulose 10 gram/15 mL Syrup 20 g PO TID RF: 0 ferrous sulfate 325 mg (65 mg iron) Tablet 325 mg PO BID RF: 0 cyclobenzaprine 5 mg tablet 5 mg PO HS RF: 0 Referrals Referrals: Najma Garcia MD [Primary Care Provider] -
[2020-09-19 14:05] LABS: Appearance Urine Clear (Clear); Bacteria Urine Automated 2+ (Negative); Bilirubin Urine Negative (Negative); Blood Urine Trace (Negative); Color Urine Yellow; Epithelial Cell Urine Auto 0-5 /lpf (0-5); Glucose Urine UA Negative (Negative); Ketones Urine Negative (Negative); Leukocyte Esterase Urine 2+ (Negative); Nitrite Urine Negative (Negative); Protein Urine Negative (Negative); RBC Urine Automated 0-4 /hpf (0-4); Specific Gravity Urine 1.005 (1.000-1.030); Urobilinogen Urine Negative (Negative); WBC Urine Automated >30 /hpf (0-5)
--- NOTE | 2020-09-19 14:05 | CT Scan Report ---
HEAD CT NONCONTRAST CT DOSE: 537.48 mGy.cm HISTORY: confusion TECHNIQUE: Multiaxial CT images of the head were performed without the use of intravenous contrast. A utomated exposure control was utilized for this study. A dose lowering technique was utilized adheri ng to the principles of ALARA. Comparison: Head CT 04/04/2020. Findings: The paranasal sinuses and mastoid air cells are clear. The calvarium and skull base are int act. The ventricles and sulci are within normal limits. There is no mass, hematoma, midline shift, or acute infarct. Impression: No acute intracranial abnormality. ACT 112: Negative or not required by law. Electronically signed by: Ángel Wilson M.D. 09/19/2020 2:04 PM
--- NOTE | 2020-09-19 14:07 | XRay Report ---
XR chest 1V portable HISTORY: weakness COMPARISON: Chest 04/29/2020. FINDINGS: A few small bibasilar linear densities consistent with subsegmental atelectasis. Otherwise, lungs are clear. No pleural effusions. No pneumothorax. No evidence for pulmonary edema. The heart i s normal in size. Pericardial calcifications are again noted. IMPRESSION: No significant change compared to the prior study. No acute process. ACT 112: Negative or not required by law. Electronically signed by: Ángel Wilson M.D. 09/19/2020 2:06 PM
[2020-09-19] MEDS ORDERED: cefTRIAXone SODIUM 2,000 MG/70 ML BAG IV STA (14:30)
[2020-09-19 14:34] LABS: Amphetamines+Metham, Urine Neg (Neg); Barbiturates, Urine Neg (Neg); Benzodiazepine, Urine Neg (Neg); Cocaine, Urine Neg (Neg); MDMA (Ecstacy), Urine Neg (Neg); Methadone, Urine Neg (Neg); Opiate, Urine Neg (Neg); Phencyclidine, Urine Neg (Neg)
[2020-09-19 14:43] LABS: Hematocrit (blood only) 45.3 % (42-52); Hemoglobin 15.7 g/dL (14.0-18.0); Mean Corpuscular Hemoglobin 32.6 pg (25-34); Mean Corpuscular Hgb Conc 34.7 g/dL (32-36); Mean Corpuscular Volume 94.2 fL (80-100); Mean Platelet Volume 10.8 fL (7.4-10.4); Platelet Count 68 K/uL (130-400); RDW Coefficient of Variation 15.9 % (11.5-14.5); RDW Standard Deviation 55.3 fL (36.4-46.3); Red Blood Count 4.81 M/uL (4.7-6.1); White Blood Count 3.76 K/uL (4.8-10.8)
[2020-09-19 14:46] LABS: INR 1.1 (0.9-1.1); Partial Thromboplastin Time 25.6 Seconds (21.0-31.0); Prothrombin Time 11.5 Seconds (9.0-12.0)
[2020-09-19 14:48] LABS: Alanine Aminotransferase 42 U/L (12-78); Albumin Level 3.7 gm/dl (3.4-5.0); Aspartate Aminotransferase 63 U/L (15-37); BUN Creatinine Ratio 16.4 (10-20); Blood Urea Nitrogen 13 mg/dl (7-18); Calcium 9.6 mg/dl (8.5-10.1); Carbon Dioxide 23 mmol/L (21-32); Chloride 111 mmol/L (98-107); Creatinine Clr Calc Pharmacy 98.5 ml/min; Est GFR (African American) 112.5 ml/min; Est GFR (Non-African American) 97.1 ml/min; Glucose 83 mg/dl (70-99); Magnesium 2.3 mg/dl (1.8-2.4); Potassium 4.6 mmol/L (3.5-5.1); Sodium 141 mmol/L (136-145)
[2020-09-19 14:50] LABS: Basophils # (auto) 0.04 K/uL (0-0.2); Basophils % (auto) 1.1 %; Eosinophils # (auto) 0.06 K/uL (0-0.5); Eosinophils % (auto) 1.6 %; Lymphocytes # (auto) 0.68 K/uL (1.2-3.4); Lymphocytes % (auto) 18.1 %; Monocytes # (auto) 0.24 K/uL (0.11-0.59); Monocytes % (auto) 6.4 %; Neutrophils # (auto) 2.74 K/uL (1.4-6.5); Neutrophils % (auto) 72.8 %
[2020-09-19 14:59] LABS: Albumin Globulin Ratio 0.9 (0.9-2); Alkaline Phosphatase 116 U/L (45-117); Bilirubin,Total 1.6 mg/dl (0.2-1); Creatine Kinase 354 U/L (39-308); Globulin 4.3 gm/dl (2.5-4.0); Troponin I < 0.015 ng/ml (0-0.045)
--- NOTE | 2020-09-19 16:22 | Ultrasound Report ---
US abdomen ltd ascites CLINICAL HISTORY: ascites. Cirrhosis. COMPARISON STUDY: Abdomen and pelvis CT 04/04/2020. FINDINGS: Real-time sonographic imaging of the abdomen was performed with treasury representative images submi tted. No ascites identified. Nodular contour to the liver consistent with cirrhosis. The spleen is en larged measuring 16 cm in length. This is similar to the prior study is likely due to the portal hype rtension. IMPRESSION: 1. No ascites. 2. Cirrhosis with splenomegaly, unchanged. ACT 112: Negative or not required by law. Electronically signed by: Ángel Wilson M.D. 09/19/2020 4:21 PM
--- NOTE | 2020-09-19 17:57 | History & Physical Report ---
Date of Service September 19, 2020 Assessment & Plan (1) History of cirrhosis of liver: (2) Hepatic encephalopathy: Plan: -[facility] -Patient presenting from home with reports of confusion -History of alcoholic cirrhosis with grade 1 esophageal varices, ascites, portal hypertension, thrombocytopenia -Prescribed lactulose however has not been filled since May 2020 -Also noted to have possible UTI -Increase lactulose to 30g TID -Continue Xifaxan, furosemide, spironolactone -Hold Cymbalta and oxycodone until mental status improves -Ultrasound negative for ascites -GI consult, input appreciated (3) Acute UTI: Plan: -UA suggest possible UTI -Does not appear septic -History of MRSA UTI -IV ceftriaxone, p.o. doxy -Follow culture (4) Thrombocytopenia: Plan: -Chronic, due to underlying cirrhosis -Platelet count 68K, at baseline, no signs of bleeding (5) DVT prophylaxis: Plan: -SCDs due to thrombocytopenia History of Present Illness Chief Complaint: Confusion Primary Care Provider: Najma Garcia MD 60-year-old male with PMH alcoholic cirrhosis with grade 1 esophageal varices and portal hypertension, chronic thrombocytopenia, GERD, and other problems listed below who presents to the ED for evaluation of confusion. History is unobtainable from the patient. Reviewed outpatient record. Patient's roommate reports that the patient was walking around their apartment naked and he locked himself in the bathroom. Patient with history of alcoholic cirrhosis on lactulose, noted that this medication has not been filled since May 2020. In the ED, labs show ammonia level 93.5, otherwise unremarkable/at patient's baseline. Head CT negative for acute findings. Tox screen and alcohol level negative. UA suggestive of UTI. Patient was given IV ceftriaxone. Allergies Allergy/AdvReac Type Severity Reaction Status Date / Time No Known Allergies Allergy Verified 09/19/20 14:12 Home Medications Medication Instructions Recorded Confirmed Type diclofenac sodium 1 % topical gel 2 g TOPICAL TID PRN 02/29/20 09/19/20 History cyanocobalamin (vitamin B-12) 100 100 mcg PO QAM 04/04/20 09/19/20 History mcg tablet duloxetine 30 mg capsule,delayed 30 mg PO HS 04/04/20 09/19/20 History release furosemide 40 mg tablet 40 mg PO BID 04/04/20 09/19/20 History rifaximin 550 mg tablet (Xifaxan) 550 mg PO BID 04/04/20 09/19/20 History spironolactone 100 mg tablet 100 mg PO BID 04/04/20 09/19/20 History thiamine mononitrate (vit B1) 100 100 mg PO QAM 04/04/20 09/19/20 History mg tablet fluticasone propionate 50 2 spray INTRANASAL DAILY PRN 04/16/20 09/19/20 History mcg/actuation nasal spray,suspension (Flonase Allergy Relief) cyclobenzaprine 5 mg tablet 5 mg PO HS 09/19/20 09/19/20 History ferrous sulfate 325 mg (65 mg 325 mg PO BID 09/19/20 09/19/20 History iron) tablet folic acid 1 mg tablet 1 mg PO DAILY 09/19/20 09/19/20 History lactulose 10 gram/15 mL oral syrup 20 g PO TID 09/19/20 09/19/20 History oxycodone 10 mg tablet 10 mg PO Q6 PRN 09/19/20 09/19/20 History pantoprazole 40 mg tablet,delayed 40 mg PO DAILY 09/19/20 09/19/20 History release potassium chloride 20 mEq oral 20 meq PO DAILY 09/19/20 09/19/20 History packet Past Med/Surg History Medical History Anxiety Chronic back pain Closed fracture of fifth toe of left foot Depression GERD (gastroesophageal reflux disease) Hearing deficit right ear perf eardrum History of alcohol abuse quit drinking 5 years ago History of anemia History of cirrhosis of liver D/T ALCOHOL History of hepatitis C Hx of ascites Hx of encephalopathy See recent admission 04/2020 [facility] Hx of esophageal varices 2/2 chronic portal HTN Hx of gynecomastia Hx of thrombocytopenia Baseline platelets ~ 50-75k. 2/2 cirrhosis. Hypertension Lumbar disc herniation Lumbar radiculopathy Osteoarthritis of right knee Portal hypertensive gastropathy Portal vein thrombosis hx Sacroiliitis Urinary tract infection hx, recurrent Surgical History Fusion of spine February 2019 History of colonoscopy with polypectomy History of esophagogastroduodenoscopy (EGD) History of lumbar spinal fusion (~05/27/20) Dr. Bauer @ [facility] History of tooth extraction all teeth removed History of total right hip arthroplasty 2018 Hx of decompression of ulnar nerve RIGHT Family History Father Diabetes Other No family history of adverse response to anesthesia Social History Smoking Status: Never smoker Cigarettes Per Day: 1ppd x 2 years; Second Hand Exposure: No; Hx Alcohol Use: No Hx Substance Use: Yes (smokes marijuana once a month) Last Used Substance: Unknown Last Used Substance Other:: 5 months ago Substance Use Type Other:: 2-3 times a month Preferred Language: Irish Communication Ability: Effective 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 Arevalo's addendum for physical exam. Results & Data Results & Data ([facility]) Vital Signs (Past 12 Hours) Vital Signs Temp Pulse Pulse Resp BP BP Pulse Ox 09/19/20 13:48 20 99 09/19/20 13:15 36.8 C 86 86 17 146/82 H 146/82 H 99 Laboratory Results Short CBC 09/19/20 Range/Units 14:15 WBC 3.76 L (4.8-10.8) K/uL Hgb 15.7 (14.0-18.0) g/dL Hct 45.3 (42-52) % Plt Count 68 L (130-400) K/uL BMP 09/19/20 14:14 Sodium 141 Potassium 4.6 Chloride 111 H Carbon Dioxide 23 BUN 13 Creatinine 0.80 Glucose 83 Calcium 9.6 Cardiac Enzymes 09/19/20 Range/Units 14:14 Total Creatine Kinase 354 H (39-308) U/L Troponin I < 0.015 (0-0.045) ng/ml Liver Function 09/19/20 Range/Units 14:14 Total Bilirubin 1.6 H (0.2-1) mg/dl AST 63 H (15-37) U/L ALT 42 (12-78) U/L Alkaline Phosphatase 116 (45-117) U/L Albumin 3.7 (3.4-5.0) gm/dl Urine 09/19/20 Range/Units 13:51 Urine Color Yellow Urine Appearance Clear (Clear) Urine pH 8.0 H (4.5-7.5) Ur Specific [place] 1.005 (1.000-1.030) Urine Protein Negative (Negative) Urine Glucose (UA) Negative (Negative) Diagnostic Findings Chest X-Ray 09/19/20 13:38 XR chest 1V portable HISTORY: weakness COMPARISON: Chest 04/29/2020. FINDINGS: A few small bibasilar linear densities consistent with subsegmental atelectasis. Otherwise, lungs are clear. No pleural effusions. No pneumothorax. No evidence for pulmonary edema. The heart is normal in size. Pericardial calcifications are again noted. IMPRESSION: No significant change compared to the prior study. No acute process. ACT 112: Negative or not required by law. Electronically signed by: Ángel Wilson M.D. 09/19/2020 2:[address] 09/19/20 13:[address] DOSE: 537.48 mGy.cm HISTORY: confusion TECHNIQUE: Multiaxial CT images of the head were performed without the use of intravenous contrast. Automated exposure control was utilized for this study. A dose lowering technique was utilized adhering to the principles of ALARA. Comparison: Head CT 04/04/2020. Findings: The paranasal sinuses and mastoid air cells are clear. The calvarium and skull base are intact. The ventricles and sulci are within normal limits. There is no mass, hematoma, midline shift, or acute infarct. Impression: No acute intracranial abnormality. ACT 112: Negative or not required by law. Electronically signed by: Ángel Wilson M.D. 09/19/2020 2:04 PM Abdomen Ultrasound 09/19/20 15:42 US abdomen ltd ascites CLINICAL HISTORY: ascites. Cirrhosis. COMPARISON STUDY: Abdomen and pelvis CT 04/04/2020. FINDINGS: Real-time sonographic imaging of the abdomen was performed with authorization representative images submitted. No ascites identified. Nodular contour to the liver consistent with cirrhosis. The spleen is enlarged measuring 16 cm in length. This is similar to the prior study is likely due to the portal hypertension. IMPRESSION: 1. No ascites. 2. Cirrhosis with splenomegaly, unchanged. ACT 112: Negative or not required by law. Electronically signed by: Ángel Wilson M.D. 09/19/2020 4:21 PM Code Status & VTE Plan VTE Prophylaxis Plan VTE Prophylaxis will be ordered: Yes Supervising Physician Co-Signing Physician Notes Patient is a 60-year-old male with history of alcoholic cirrhosis, esophageal varices, portal hypertension and other medical problems presents with history of altered mental status. Currently patient is confused and oriented only to pe rson. Patient unable to provide any history, most of the history is obtained from old records and ER physician. Please review HPI for complete details of presentation. He was noted to have thrombocytopenia, bilirubin elevated 1.6, AST 63, ammonia 93, CK 354. Urinalysis suggestive of possible urinary tract infection. Toxicology screen negative. Chest x-ray, CT head no acute findings. Abdominal ultrasound showed findings suggestive of cirrhosis with splenomegaly. He follows simple commands while in ED. Physical Exam: Vitals signs as noted above General Appearance:Moderately built and nourished, no apparent distress Head: normocephalic, Atraumatic Eyes: normal inspection, EOMI Neck: supple, Trachea midline Respiratory/Chest: Normal breath sounds, CTA, No accessory muscle use Cardiovascular: S1, S2, No murmur Abdomen/GI:Soft, generalized tender, Bowel sounds present, no guarding or rigidity, +mild distention Extremities/Musculoskeletal:normal inspection, 1+ B/L LE edema Neurologic/Psych:AAOX1, Confused, grossly no focal neurological deficits, moves all extremities Skin: normal color, warm Acute metabolic/hepatic encephalopathy Acute urinary tract infection Thrombocytopenia Questionable compliance with home medications CT head as above Agree with increasing lactulose to 30 mg 3 times daily Continue rifaximin, diuretics Hold sedating meds, psychotropic meds Consulted GI for further input Follow-up cultures Avoid anticoagulation due to thrombocytopenia. I personally reviewed the record. Patient is interviewed and examined at bedside. Patient's care is coordinated with Echo Montenegro NP. Please refer to the documentation above for details of patient's presentation and for discussion of other issues.
[2020-09-19] MEDS: DOXYCYCLINE HYCLATE 100 MG CAP PO SCH (21:12)
[2020-09-19] MEDS: FERROUS SULFATE 325 MG TAB PO SCH (21:13)
[2020-09-19] MEDS: FUROSEMIDE 40 MG TAB PO SCH (21:14)
[2020-09-19] MEDS: LACTULOSE SYRUP 30 GM/45 ML UDP PO SCH (21:15)
[2020-09-19] MEDS: rifAXIMin 550 MG TABLET PO SCH (21:16)
[2020-09-19] MEDS: SPIRONOLACTONE 100 MG TAB PO SCH (21:17)
[2020-09-19] MEDS ORDERED: GABAPENTIN 600 MG TAB PO ONE (21:24)
[2020-09-19] MEDS ORDERED: LORazepam 1 MG/2 ML VIAL IV PRN (21:24)
[2020-09-19] MEDS ORDERED: LORazepam 2 MG/4 ML VIAL IV PRN (21:24)
[2020-09-19] MEDS ORDERED: LORazepam 3 MG/6 ML VIAL IV PRN (21:24)
[2020-09-19] MEDS ORDERED: GABAPENTIN 1200MG ALCOHOL WITHDRAWAL LOAD PO STA (21:24)
[2020-09-19] MEDS ORDERED: ATIVAN IV ALCOHOL WITHDRAWL IV PRN (21:24)
--- NOTE | 2020-09-19 21:26 | Communication Note ---
Date of Service: September 19, 2020 Made aware by RN of patient confusion, agitation. AP Possible alcohol withdrawal MARLIN S, DT precautions Will relay to AM provider.
[2020-09-19] MEDS ORDERED: LACTULOSE SYRUP 20 GM/30 ML UDC PO ONE (23:30)
[2020-09-20] MEDS: ACETAMINOPHEN 325 MG TAB PO PRN ×2 (05:49→18:24)
[2020-09-20] MEDS: GABAPENTIN 600 MG TAB PO SCH ×3 (06:07→21:03)
[2020-09-20] MEDS: FUROSEMIDE 40 MG TAB PO SCH ×2 (06:33→15:25)
[2020-09-20 07:24] LABS: Hematocrit (blood only) 39.8 % (42-52); Hemoglobin 13.5 g/dL (14.0-18.0); Mean Corpuscular Hemoglobin 32.4 pg (25-34); Mean Corpuscular Hgb Conc 33.9 g/dL (32-36); Mean Corpuscular Volume 95.4 fL (80-100); RDW Coefficient of Variation 16.3 % (11.5-14.5); RDW Standard Deviation 56.8 fL (36.4-46.3); Red Blood Count 4.17 M/uL (4.7-6.1); White Blood Count 4.19 K/uL (4.8-10.8)
[2020-09-20 07:31] LABS: INR 1.2 (0.9-1.1); Mean Platelet Volume 10.2 fL (7.4-10.4); Platelet Count 65 K/uL (130-400); Prothrombin Time 12.4 Seconds (9.0-12.0)
[2020-09-20 08:07] LABS: Albumin Level 2.9 gm/dl (3.4-5.0); Calcium 8.8 mg/dl (8.5-10.1); Creatinine Clr Calc Pharmacy 89.1 ml/min; Est GFR (African American) 108.2 ml/min; Est GFR (Non-African American) 93.4 ml/min; Potassium 4.1 mmol/L (3.5-5.1)
[2020-09-20 08:12] LABS: Albumin Globulin Ratio 0.8 (0.9-2); Bilirubin,Total 1.8 mg/dl (0.2-1); Globulin 3.5 gm/dl (2.5-4.0); Total Protein 6.4 gm/dl (6.4-8.2)
[2020-09-20] MEDS: LACTULOSE SYRUP 30 GM/45 ML UDP PO SCH ×3 (08:58→21:04)
[2020-09-20] MEDS: FERROUS SULFATE 325 MG TAB PO SCH ×2 (08:59→17:20)
[2020-09-20] MEDS: THIAMINE HCL 100 MG TAB PO SCH (08:59)
[2020-09-20] MEDS: SPIRONOLACTONE 100 MG TAB PO SCH ×2 (08:59→17:19)
[2020-09-20] MEDS: DOXYCYCLINE HYCLATE 100 MG CAP PO SCH ×2 (08:59→21:01)
[2020-09-20] MEDS: FOLIC ACID 1 MG TAB PO SCH (08:59)
[2020-09-20] MEDS: CYANOCOBALAMIN (VITAMIN B-12) 100 MCG TABLET PO SCH (08:59)
[2020-09-20] MEDS: PANTOprazole 40 MG TAB PO SCH (08:59)
[2020-09-20] MEDS: POTASSIUM CHLORIDE PWD 20 MEQ PACK PO SCH (08:59)
[2020-09-20] MEDS: rifAXIMin 550 MG TABLET PO SCH ×2 (08:59→21:02)
--- NOTE | 2020-09-20 11:02 | Gastrointestinal Consultation ---
Date of Consultation September 20, 2020 Assessment & Plan (1) Hepatic encephalopathy: Urine and blood cultures. VDUS to r/o PVT. Increase lactulose to 45ml TID. Continue Rifaximin 550mg BID. Will check Zinc level Hold diuretics until confusion resolves. Then would restart prior to DC. Supervising Physician Co-Signing Physician Notes I saw and evaluated the patient. He is known to our service for history of cirr hosis related to prior alcohol abuse. The patient has been abstinent for a number of years but has never undergone any formal rehabilitation. It appears that he presented with worsening hepatic encephalopathy. The patient does have a history notable for hepatic encephalopathy and is typically treated as an outpatient with twice daily rifaximin and lactulose. Physical examination Tremor noted Asterixis noted Problems with word finding and slurring of speech noted Impression: Patient presenting with recurrent hepatic encephalopathy, unclear if this is related to medical compliance as an outpatient. I would recommend continued use of rifaximin 550 twice daily, use of lactulose 3 times daily and obtaining a zinc level. Upon discharge we will likely recommend twice daily rifaximin in addition to once daily lactulose. History of Present Illness Reason for Consultation: Hepatic Encephalopathy Attending Physician: Darshan Arevalo MD History of Present Illness Mr. Andrea Harvey is a 60 yr old male pt of Dr. Garcia with a hx of ETOH cirrhosis (abstaining), complicated by prior hepatic encephalopathy (maintained on Xifaxian 550mg BID and lactulose 30ml TID), esophageal varices, ascites (maintained on furosemide 40/spironolactone 100mg BID), portal HTN, who was admitted yesterday with mental status changes, confusion. The pt is sitting up in bed, confused, unable to remember the details of his transport/admission. He is able to feed himself but is unable to tell his name or where he his. He has 2 bts of asterix present. He denies any alcohol intake. On arrival, CT head and CXR were normal. US w/o ascites. Urine with leukocytes, bacteria. Ammonia was 93 yesterday ->44 today. Allergies Allergy/AdvReac Type Severity Reaction Status Date / Time No Known Allergies Allergy Verified 09/19/20 14:12 Home Medications Medication Instructions Recorded Confirmed Type diclofenac sodium 1 % topical gel 2 g TOPICAL TID PRN 02/29/20 09/19/20 History cyanocobalamin (vitamin B-12) 100 100 mcg PO QAM 04/04/20 09/19/20 History mcg tablet duloxetine 30 mg capsule,delayed 30 mg PO HS 04/04/20 09/19/20 History release furosemide 40 mg tablet 40 mg PO BID 04/04/20 09/19/20 History rifaximin 550 mg tablet (Xifaxan) 550 mg PO BID 04/04/20 09/19/20 History spironolactone 100 mg tablet 100 mg PO BID 04/04/20 09/19/20 History thiamine mononitrate (vit B1) 100 100 mg PO QAM 04/04/20 09/19/20 History mg tablet fluticasone propionate 50 2 spray INTRANASAL DAILY PRN 04/16/20 09/19/20 History mcg/actuation nasal spray,suspension (Flonase Allergy Relief) cyclobenzaprine 5 mg tablet 5 mg PO HS 09/19/20 09/19/20 History ferrous sulfate 325 mg (65 mg 325 mg PO BID 09/19/20 09/19/20 History iron) tablet folic acid 1 mg tablet 1 mg PO DAILY 09/19/20 09/19/20 History lactulose 10 gram/15 mL oral syrup 20 g PO TID 09/19/20 09/19/20 History oxycodone 10 mg tablet 10 mg PO Q6 PRN 09/19/20 09/19/20 History pantoprazole 40 mg tablet,delayed 40 mg PO DAILY 09/19/20 09/19/20 History release potassium chloride 20 mEq oral 20 meq PO DAILY 09/19/20 09/19/20 History packet Patient History Medical History Anxiety Chronic back pain Closed fracture of fifth toe of left foot Depression GERD (gastroesophageal reflux disease) Hearing deficit right ear perf eardrum History of alcohol abuse quit drinking 5 years ago History of anemia History of cirrhosis of liver D/T ALCOHOL History of hepatitis C Hx of ascites Hx of encephalopathy See recent admission 04/2020 [facility] Hx of esophageal varices 2/2 chronic portal HTN Hx of gynecomastia Hx of thrombocytopenia Baseline platelets ~ 50-75k. 2/2 cirrhosis. Hypertension Lumbar disc herniation Lumbar radiculopathy Osteoarthritis of right knee Portal hypertensive gastropathy Portal vein thrombosis hx Sacroiliitis Urinary tract infection hx, recurrent Surgical History Fusion of spine February 2019 History of colonoscopy with polypectomy History of esophagogastroduodenoscopy (EGD) History of lumbar spinal fusion (~05/27/20) Dr. Bauer @ [facility] History of tooth extraction all teeth removed History of total right hip arthroplasty 2018 Hx of decompression of ulnar nerve RIGHT Family History Father Diabetes Other No family history of adverse response to anesthesia Social History Smoking Status: Current every day smoker Cigarettes Per Day: 1ppd x 2 years; Smoking End Date: 40 years ago; Second Hand Exposure: No; Do You Dip or Chew Tobacco: Yes; Hx Alcohol Use: Yes Alcohol type: beer Alcohol Intake Frequency Comment: history of alcoholism, quit 4+ years ago Hx Substance Use: Yes Last Used Substance: Unknown Last Used Substance Other:: 5 months ago Substance Use Type Other:: special occasions Preferred Language: Lithuanian Communication Ability: Effective 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 Service 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: No Beliefs That Will Affect Care: None marital status: Single Current Living Situation: Alone Current Living Situation Comment: [facility] How many Children do You have: 0 Other Information That Helps Us Care for You: No Feels Safe at Home: Yes Safety Concerns: Feels Safe At This Time Assistive Devices: None Review of Systems Review of Systems: ROS: Gen: + weakness, + confusion; denies any symptoms of illness such as fevers, aches/pain/chills/sweats Eyes: No eye redness, or pain, no recent vision changes Resp: No SOB, no cough Cardio: No palpitations/irregular beats, no chest pain GI: No abdominal pain, no nausea/vomiting : Denies pain on urination Skin: No jaundice, itching or new rashes Physical Exam Constitutional: + ill appearing (chronically), + thin, + disheveled and cooperative Eyes: PERRL, conjunctivae normal, anicteric sclerae ENMT: external ear and nose normal, oropharynx normal Neck: trachea midline, no thyromegaly Respiratory: normal respiratory effort, lungs clear to auscultation Cardiovascular: RRR, no murmur, no edema Gastrointestinal (Abdomen): normal bowel sounds, soft, nontender, no hepatosplenomegaly Neurologic: Coordination: + abnormal [id number] test 2+ ascterixes Psychiatric: Orientation: alert and cooperative; + not oriented x 3 Apperance: + disheveled Eye Contact: good eye contact Motor Behavior: + psychomotor agitation and + tremor Speech: + pressured speech Affect: + irritable affect Results & Data ([facility]) Vital Signs (Past 12 Hours) Vital Signs Temp Pulse Pulse Resp BP Pulse Ox 09/20/20 07:22 36.7 C 68 20 127/71 97 09/20/20 04:09 36.7 C 90 20 112/64 92 09/20/20 03:49 36.7 C 90 20 112/64 92 09/20/20 00:45 36.8 C 75 18 111/69 96 09/19/20 22:58 36.4 C L 79 18 157/88 H 98 Laboratory Results WBC 4, Hb 13.5, Hct 39, Plts 65, PT 12.4, INR 1.2, Na 143, K 4.1, BUN 12, Cr. 0.8. Diagnostic Findings Head CT 09/19/20: No acute intracranial abnormality. CXR 09/19/20: No significant change compared to the prior study. No acute process. US 09/19/20: 1. No ascites. 2. Cirrhosis with splenomegaly, unchanged.
[2020-09-20] MEDS ORDERED: LACTULOSE SYRUP 30 GM/45 ML UDP PO SCH (13:00)
--- NOTE | 2020-09-20 14:02 | Ultrasound Report ---
US duplex portal hepatic veins CLINICAL HISTORY: cirrhosis, hepatic encephalopathy, r/o portal vein thrombosis COMPARISON STUDY: Abdomen and pelvis CT 04/04/2020. FINDINGS: Nondiagnostic evaluation of the portal and hepatic veins due to patient motion and limited acoustic windows. Nodular contour to the liver consistent with cirrhosis. IMPRESSION: 1. Nondiagnostic evaluation of the portal vein. 2. Cirrhotic liver. ACT 112: Negative or not required by law. Electronically signed by: Ángel Wilson M.D. 09/20/2020 2:01 PM
[2020-09-20] MEDS: cefTRIAXone SODIUM 2,000 MG in DEXTROSE 5% 50 ML IV SCH (15:24)
[2020-09-20] MEDS: NICOTINE 21 MG/24 HR TDSY TD SCH (15:25)
--- NOTE | 2020-09-20 16:07 | Electrocardiogram Report ---
Test Reason : Blood Pressure : / mmHG Vent. Rate : 076 BPM Atrial Rate : 076 BPM P-R Int : 180 ms QRS Dur : 086 ms QT Int : 418 ms P-R-T Axes : 064 047 061 degrees QTc Int : 470 ms Sinus rhythm with Premature atrial complexes Low voltage QRS Borderline ECG When compared with ECG of 29-APR-2020 11:59, Premature atrial complexes are now Present Confirmed by Gordy Pinto ([id number]) on 09/20/2020 4:07:18 PM Referred By: Najma Garcia Confirmed By:Gordy Pinto
--- NOTE | 2020-09-20 16:23 | Electrocardiogram Report ---
Test Reason : Blood Pressure : / mmHG Vent. Rate : 084 BPM Atrial Rate : 084 BPM P-R Int : 176 ms QRS Dur : 082 ms QT Int : 412 ms P-R-T Axes : 080 064 076 degrees QTc Int : 486 ms Normal sinus rhythm Possible Left atrial enlargement Low voltage QRS Septal infarct (cited on or before 19-SEP-2020) Abnormal ECG When compared with ECG of 19-SEP-2020 13:03, (unconfirmed) Premature atrial complexes are no longer Present Confirmed by Gordy Pinto ([id number]) on 09/20/2020 4:23:00 PM Referred By: Najma Garcia Confirmed By:Gordy Pinto
--- NOTE | 2020-09-20 16:43 | Hospitalist Progress Note ---
Date of Service September 20, 2020 Assessment & Plan (1) History of cirrhosis of liver: (2) Hepatic encephalopathy: Plan: Hepatic encephalopathy -CT Head:No acute intracranial abnormality. -Portal vein ultrasound:Nondiagnostic evaluation of the portal vein. Cirrhotic liver. Questionable compliance with home medications Ammonia level improved Mental status improved as well Continue lactulose--titrate to have good 3-4 bowel movements per day Continue rifaximin Hold sedative, psychotropic meds for now Zinc levels pending Avoid hepatotoxic medications Appreciate GI Input Marijuana use States being prescribed medically as per patient Likely contributed to mental status change as well Counseled to quit marijuana use (3) Acute UTI: Plan: Urine culture growing gram-positive cocci Blood cultures negative to date On ceftriaxone, Doxy Day #2 Plan to adjust antibiotics as per cultures (4) Thrombocytopenia: Plan: Chronic, due to underlying cirrhosis Platelet count 65K No signs of bleeding Monitor H/O alcohol use Denies any recent use Last drinks more than 6 years ago as per patient On gabapentin protocol Thiamine, folic acid Tobacco use disorder Nicotine patch Counseled to quit smoking (5) DVT prophylaxis: Plan: SCDs due to thrombocytopenia Admission and Anticipated Discharge Date Admission Date: September 19, 2020 Subjective Patient is seen and examined at bedside Mental status slowly improving Complains of shakiness Admits to using marijuana Also states having chronic back pain Denies any dysuria, hematuria, chest pain, dyspnea Reports having dizziness as well. Review of Systems Review of Systems: All systems reviewed & are unremarkable except as noted in Subjective Physical Exam Physical Exam: Physical Exam: Vitals signs as noted above General Appearance:Moderately built and nourished, no apparent distress Head: normocephalic, Atraumatic Eyes: normal inspection, EOMI Neck: supple, Trachea midline Respiratory/Chest: Normal breath sounds, CTA, No accessory muscle use Cardiovascular: S1, S2, No murmur Abdomen/GI:Soft, generalized tender, Bowel sounds present, no guarding or rigidity, +mild distention Extremities/Musculoskeletal:normal inspection, 1+ B/L LE edema Neurologic/Psych:AAOX3, grossly no focal neurological deficits Skin: normal color, warm Results & Data Results & Data ([facility]) Vital Signs (Past 12 Hours) Vital Signs Temp Pulse Pulse Resp BP Pulse Ox 09/20/20 15:05 36.7 C 77 20 162/90 H 97 09/20/20 10:58 67 09/20/20 07:22 36.7 C 68 20 127/71 97 Laboratory Results Short CBC 09/20/20 Range/Units 07:14 WBC 4.19 L (4.8-10.8) K/uL Hgb 13.5 L (14.0-18.0) g/dL Hct 39.8 L (42-52) % Plt Count 65 L (130-400) K/uL BMP 09/20/20 07:14 Sodium 143 Potassium 4.1 Chloride 114 H Carbon Dioxide 26 BUN 12 Creatinine 0.88 Glucose 109 H Calcium 8.8 Liver Function 09/20/20 Range/Units 07:14 Total Bilirubin 1.8 H (0.2-1) mg/dl AST 42 H (15-37) U/L ALT 30 (12-78) U/L Alkaline Phosphatase 86 (45-117) U/L Albumin 2.9 L (3.4-5.0) gm/dl
[2020-09-20] MEDS: oxyCODONE HCL IR 5 MG TAB (IMMEDIATE RELEASE) PO PRN (21:03)
[2020-09-21] MEDS: oxyCODONE HCL IR 5 MG TAB (IMMEDIATE RELEASE) PO PRN (06:27)
[2020-09-21] MEDS: GABAPENTIN 600 MG TAB PO SCH ×2 (06:28→14:31)
[2020-09-21] MEDS: FUROSEMIDE 40 MG TAB PO SCH ×2 (06:28→15:05)
[2020-09-21 07:12] LABS: Hematocrit (blood only) 39.5 % (42-52); Hemoglobin 13.6 g/dL (14.0-18.0); Mean Corpuscular Hemoglobin 32.5 pg (25-34); Mean Corpuscular Hgb Conc 34.4 g/dL (32-36); Mean Corpuscular Volume 94.3 fL (80-100); RDW Coefficient of Variation 15.6 % (11.5-14.5); RDW Standard Deviation 54.2 fL (36.4-46.3); Red Blood Count 4.19 M/uL (4.7-6.1); White Blood Count 4.61 K/uL (4.8-10.8)
[2020-09-21 07:13] LABS: Platelet Count 68 K/uL (130-400)
[2020-09-21 07:55] LABS: BUN Creatinine Ratio 21.3 (10-20); Creatinine Clr Calc Pharmacy 105.4 ml/min; Est GFR (African American) 116.2 ml/min; Est GFR (Non-African American) 100.3 ml/min; Potassium 3.4 mmol/L (3.5-5.1)
[2020-09-21] MEDS: POTASSIUM CHLORIDE PWD 20 MEQ PACK PO SCH (08:01)
[2020-09-21] MEDS: FOLIC ACID 1 MG TAB PO SCH (08:01)
[2020-09-21] MEDS: SPIRONOLACTONE 100 MG TAB PO SCH ×2 (08:01→15:58)
[2020-09-21] MEDS: THIAMINE HCL 100 MG TAB PO SCH (08:01)
[2020-09-21] MEDS: rifAXIMin 550 MG TABLET PO SCH ×2 (08:01→20:12)
[2020-09-21] MEDS: DOXYCYCLINE HYCLATE 100 MG CAP PO SCH ×2 (08:01→20:12)
[2020-09-21] MEDS: PANTOprazole 40 MG TAB PO SCH (08:01)
[2020-09-21] MEDS: CYANOCOBALAMIN (VITAMIN B-12) 100 MCG TABLET PO SCH (08:01)
[2020-09-21] MEDS: NICOTINE 21 MG/24 HR TDSY TD SCH (08:01)
[2020-09-21] MEDS: LACTULOSE SYRUP 30 GM/45 ML UDP PO SCH ×3 (08:02→15:06)
[2020-09-21 08:13] LABS: Albumin Globulin Ratio 0.9 (0.9-2); Bilirubin,Total 1.5 mg/dl (0.2-1); Globulin 3.5 gm/dl (2.5-4.0); Total Protein 6.5 gm/dl (6.4-8.2)
--- NOTE | 2020-09-21 08:40 | Hospitalist Progress Note ---
Date of Service September 21, 2020 Assessment & Plan (1) History of cirrhosis of liver: (2) Hepatic encephalopathy: Plan: Hepatic encephalopathy -CT Head:No acute intracranial abnormality. -Portal vein ultrasound:Nondiagnostic evaluation of the portal vein. Cirrhotic liver. Questionable compliance with home medications--Patient reports to being compliant Ammonia level improved Continue lactulose--titrate to have good 3-4 bowel movements per day Continue rifaximin Mental status is back to baseline Zinc levels pending Avoid hepatotoxic medications Appreciate GI Input Advised to follow up with GI upon discharge Marijuana use States being prescribed medically as per patient Likely contributed to mental status change as well Counseled to quit marijuana use (3) Acute UTI: Plan: Urine culture growing gram-positive cocci Blood cultures negative to date On ceftriaxone, Doxy Day #3 Plan to adjust antibiotics as per cultures (4) Thrombocytopenia: Plan: Chronic, due to underlying cirrhosis Platelet count 68K No signs of bleeding Monitor H/O alcohol use Denies any recent use Last drinks more than 6 years ago as per patient On gabapentin protocol Thiamine, folic acid Chronic back pain S/P L3-L4 decompression fusion surgery by Dr. Bauer ? Greater trochanter bursitis Appreciate orthopedics input Advised to get injections to her SI joint as outpatient Tobacco use disorder Nicotine patch Counseled to quit smoking (5) DVT prophylaxis: Plan: SCDs due to thrombocytopenia Admission and Anticipated Discharge Date Admission Date: September 19, 2020 Subjective Patient is seen and examined at bedside Doing much better today Only minimal Tremor Mental status seemed to be back to baseline Has chronic back pain Denies any dysuria, hematuria, chest pain, dyspnea Review of Systems Review of Systems: All systems reviewed & are unremarkable except as noted in Subjective Physical Exam Physical Exam: Physical Exam: Vitals signs as noted above General Appearance:Moderately built and nourished, no apparent distress Head: normocephalic, Atraumatic Eyes: normal inspection, EOMI Neck: supple, Trachea midline Respiratory/Chest: Normal breath sounds, CTA, No accessory muscle use Cardiovascular: S1, S2, No murmur Abdomen/GI:Soft, generalized tender, Bowel sounds present, no guarding or rigidity, +mild distention Extremities/Musculoskeletal:normal inspection, 1+ B/L LE edema Neurologic/Psych:AAOX3, grossly no focal neurological deficits Skin: normal color, warm Results & Data Results & Data ([facility]) Vital Signs (Past 12 Hours) Vital Signs Temp Pulse Pulse Resp BP BP Pulse Ox 09/21/20 07:28 87 09/21/20 07:20 36.8 C 88 20 158/79 H 97 09/21/20 03:20 36.4 C L 68 18 130/69 97 09/20/20 23:38 87 09/20/20 22:32 92 H Laboratory Results Short CBC 09/21/20 Range/Units 06:36 WBC 4.61 L (4.8-10.8) K/uL Hgb 13.6 L (14.0-18.0) g/dL Hct 39.5 L (42-52) % Plt Count 68 L (130-400) K/uL BMP 09/21/20 06:36 Sodium 140 Potassium 3.4 L D Chloride 110 H Carbon Dioxide 23 BUN 16 Creatinine 0.74 Glucose 84 Calcium 9.0 Liver Function 09/21/20 Range/Units 06:36 Total Bilirubin 1.5 H (0.2-1) mg/dl AST 39 H (15-37) U/L ALT 30 (12-78) U/L Alkaline Phosphatase 94 (45-117) U/L Albumin 3.0 L (3.4-5.0) gm/dl
[2020-09-21] MEDS: FERROUS SULFATE 325 MG TAB PO SCH ×2 (09:37→16:59)
--- NOTE | 2020-09-21 10:24 | Consultation ---
Date of Consultation September 21, 2020 Assessment & Plan (1) Chronic back pain: Patient is 4 months status post revision fusion L3-[address] Bauer due to pseudoarthrosis. He is overall doing quite well compared to his pre-op status. Ambulate ad karin. Suggest a lifting limitation of 20-25 pounds. I believe the majority of his current pain is right SI joint dysfunction and right greater trochanter bursitis. These can be managed on an outpatient basis with injections. Patient requests these be performed in [place] as this is most convenient and easy for him to get a ride. He states he has had injections performed at this location in the past. I have urged him to keep his regular scheduled follow-up in our office. He is orthopedically stable. Will sign off. Thank you for this consult Supervising Physician Co-Signing Physician Notes Dr. Viraj Bauer History of Present Illness Reason for Consultation: Chronic back pain Attending Physician: Darshan Arevalo MD History of Present Illness This is a 60-year-old gentleman well-known to us. He was currently brought in to the emergency room with subsequent admission due to hepatic encephalopathy and acute UTI. About 4 months ago he underwent a revision hardware removal and fusion by Dr. Bauer. Initial surgery was performed by Dr.'s Newman almost 2 years ago. Postoperatively his right lower extremity pain has completely resolved. Currently he states he has numbness from the left knee distally. He has chronic back pain. Sometimes this requires oxycodone. He states about 4 weeks ago he had a follow-up in our office. There was concern for acetabular loosening of his right hip replacement and therefore was referred back to Dr. Allen for evaluation. Dr. Allen saw the patient on August 24 who felt x-rays were stable and no evidence of loosening. Recommended continue follow-up with for his lower back. Upon evaluation most of his pain is across the right sacroiliac joint and right greater trochanter bursa region. He alternates between a scooter, walker, cane for ambulation at home. Allergies Allergy/AdvReac Type Severity Reaction Status Date / Time No Known Allergies Allergy Verified 09/19/20 14:12 Home Medications Medication Instructions Recorded Confirmed Type diclofenac sodium 1 % topical gel 2 g TOPICAL TID PRN 02/29/20 09/19/20 History cyanocobalamin (vitamin B-12) 100 100 mcg PO QAM 04/04/20 09/19/20 History mcg tablet duloxetine 30 mg capsule,delayed 30 mg PO HS 04/04/20 09/19/20 History release furosemide 40 mg tablet 40 mg PO BID 04/04/20 09/19/20 History rifaximin 550 mg tablet (Xifaxan) 550 mg PO BID 04/04/20 09/19/20 History spironolactone 100 mg tablet 100 mg PO BID 04/04/20 09/19/20 History thiamine mononitrate (vit B1) 100 100 mg PO QAM 04/04/20 09/19/20 History mg tablet fluticasone propionate 50 2 spray INTRANASAL DAILY PRN 04/16/20 09/19/20 History mcg/actuation nasal spray,suspension (Flonase Allergy Relief) cyclobenzaprine 5 mg tablet 5 mg PO HS 09/19/20 09/19/20 History ferrous sulfate 325 mg (65 mg 325 mg PO BID 09/19/20 09/19/20 History iron) tablet folic acid 1 mg tablet 1 mg PO DAILY 09/19/20 09/19/20 History lactulose 10 gram/15 mL oral syrup 20 g PO TID 09/19/20 09/19/20 History oxycodone 10 mg tablet 10 mg PO Q6 PRN 09/19/20 09/19/20 History pantoprazole 40 mg tablet,delayed 40 mg PO DAILY 09/19/20 09/19/20 History release potassium chloride 20 mEq oral 20 meq PO DAILY 09/19/20 09/19/20 History packet Patient History Medical History (Updated 09/21/20 @ 10:31 by Marisela Mccain PA-C) Anxiety Chronic back pain Closed fracture of fifth toe of left foot Depression GERD (gastroesophageal reflux disease) Hearing deficit right ear perf eardrum History of alcohol abuse quit drinking 5 years ago History of anemia History of cirrhosis of liver D/T ALCOHOL History of hepatitis C Hx of ascites Hx of encephalopathy See recent admission 04/2020 [facility] Hx of esophageal varices 2/2 chronic portal HTN Hx of gynecomastia Hx of thrombocytopenia Baseline platelets ~ 50-75k. 2/2 cirrhosis. Hypertension Lumbar disc herniation Lumbar radiculopathy Osteoarthritis of right knee Portal hypertensive gastropathy Portal vein thrombosis hx Sacroiliitis Urinary tract infection hx, recurrent Surgical History Fusion of spine February 2019 History of colonoscopy with polypectomy History of esophagogastroduodenoscopy (EGD) History of lumbar spinal fusion (~05/27/20) Dr. Bauer @ [facility] History of tooth extraction all teeth removed History of total right hip arthroplasty 2018 Hx of decompression of ulnar nerve RIGHT Family History Father Diabetes Other No family history of adverse response to anesthesia Social History Smoking Status: Current every day smoker Cigarettes Per Day: 1ppd x 2 years; Smoking End Date: 40 years ago; Second Hand Exposure: No; Do You Dip or Chew Tobacco: Yes; Hx Alcohol Use: Yes Alcohol type: beer Alcohol Intake Frequency Comment: history of alcoholism, quit 4+ years ago Hx Substance Use: Yes Last Used Substance: Unknown Last Used Substance Other:: 5 months ago Substance Use Type Other:: special occasions Preferred Language: Maltese Communication Ability: Impaired School Transportation Supervisor Required: No Beliefs That Will Affect Care: None marital status: Single Current Living Situation: Alone Current Living Situation Comment: [facility] How many Children do You have: 3 Other Information That Helps Us Care for You: No Feels Safe at Home: Yes Safety Concerns: Feels Safe At This Time Assistive Devices: None Review of Systems Review of Systems: See HPI Physical Exam Physical Exam: Patient sitting on the edge of the bed eating breakfast No acute distress alert and oriented x3 He stands up with ease. Well-healed midline lumbar incision Tender to palpation over the right sacroiliac notch as well as over the right greater trochanter bursa region. 5/5 strength bilateral EHL, dorsiflexion, plantarflexion, quadriceps, hamstrings, hip flexors, hip abductor's and hip adductor's Negative logrolling bilaterally. Negative tension signs bilaterally Constitutional: WD/WN, vitals as above Eyes: normal visual munguia by confrontation ENMT: external ear and nose normal, oropharynx normal Neck: normal visual inspection Respiratory: normal respiratory effort Cardiovascular: Extremities: normal capillary refill Gastrointestinal (Abdomen): Inspection/Auscultation: abdomen normal to inspection Musculoskeletal: Extremities: extremities normal to inspection and strength 5/5 throughout Skin: no rashes, warm and dry Neurologic: moves all extremities Psychiatric: Orientation: alert and oriented x 3 Results & Data ([facility]) Vital Signs (Past 12 Hours) Vital Signs Temp Pulse Pulse Resp BP BP Pulse Ox 09/21/20 07:28 87 09/21/20 07:20 36.8 C 88 20 158/79 H 97 09/21/20 03:20 36.4 C L 68 18 130/69 97 09/20/20 23:38 87 09/20/20 22:32 92 H Diagnostic Findings Lumbar spine x-rays were performed this morning. Report not available. I have personally reviewed these images. Demonstrates instrumented fusion of L3-4. There is modest evidence of bone graft fusion mass and posterior gutters. No evidence of hardware failure. Adjacent level is well-maintained.
--- NOTE | 2020-09-21 10:46 | XRay Report ---
LUMBAR SPINE 3 VIEWS CLINICAL HISTORY: Low back pain. FINDINGS: 3 views of the lumbar spine are compared to study dated 01/08/[address] of the lumbar spine dated 03/16/2020. The skeletal structures are osteopenic. There is no radiographic ev idence of acute fracture or malalignment. There are minimal chronic compression deformities of L3 and L4. Vertebral body height is otherwise maintained throughout the lumbar spine. Alignment is preserve d. There is postoperative change from discectomy at L3-L4 with laminectomy and posterior fusion at th is level. Intrapedicular screws are in place. The orthopedic hardware appears intact. Small anterior and lateral marginal osteophytes are seen throughout. There is minimal lumbar levocurvature centered at L3-L4. The transverse processes are intact as visualized. The disc spaces appear maintained. Multi level facet arthropathy is identified. The bony pelvis is intact as imaged. Sclerotic change is noted in the sacroiliac joints. A right hip arthroplasty is partially imaged. There is no bowel obstructio n. IMPRESSION: 1. No acute bony abnormality is seen involving the lumbar spine. 2. Osteopenia with postoperative and spondylotic changes as above. Dictated: 09/21/2020 9:59 AM Transcribed: 09/21/2020 10:13 AM Jeannette [id number] JORGE_Arina Electronically signed by: Jamil Freedman M.D. 09/21/2020 10:45 AM
--- NOTE | 2020-09-21 11:41 | Gastroenterology Progress Note ---
Date of Service September 21, 2020 Assessment & Plan (1) Hepatic encephalopathy: Plan: Suspect UTI was trigger for heaptic encephalopathy. Will decrease lactulose to daily. Continue Rifaximin 550mg BID. Restart diuretics before discharge. Appreciate hospitalists management of UTI. GI will sign off. Continue OP GI f/u for cirrhosis. Admission and Anticipated Discharge Date Admission Date: September 19, 2020 Supervising Physician Co-Signing Physician Notes I saw and evaluated the patient. He appears much improved from the standpoint of his mental status this morning. He is no longer slurring his speech nor has evidence of asterixis. It appears that the patient did have a urinary tract infection which could certainly have contributed to his presentation with recurrent encephalopathy. Recommendations Continue rifaximin twice daily Continue lactulose 1 time daily Treatment and management of urinary tract infection per internal medicine service. Perhaps the patient would benefit from a urology evaluation. Please call with any questions or concerns, GI to sign off Subjective 60 yr old male admitted on 09/20 for ETOH cirrhosis (abstaining) with hepatic encephalopathy. Mentation back to baseline today. Able to walk with only slight instability likely secondary to back pain and left leg radiculopathy. Talked about frustration that he was told not to use marijuana. Urine + for gram + cocci. Review of Systems Review of Systems: ROS: Gen: today - no confusion, no weakness and no new problems. Eyes: No eye redness, or pain, no recent vision changes Resp: No SOB, no cough Cardio: No palpitations/irregular beats, no chest pain GI: No abdominal pain, no nausea/vomiting : Denies pain on urination Skin: No jaundice, itching or new rashes A total of 12 systems reviewed, all others (-). Physical Exam Constitutional: + ill appearing (chronically), + thin, + disheveled and cooperative Eyes: PERRL, conjunctivae normal, anicteric sclerae ENMT: external ear and nose normal, oropharynx normal Neck: trachea midline, no thyromegaly Respiratory: normal respiratory effort, lungs clear to auscultation Cardiovascular: RRR, no murmur, no edema Gastrointestinal (Abdomen): normal bowel sounds, soft, nontender, no hepatosplenomegaly Neurologic: PERRL, EOMI, accommodation nl, no face palsy, no dysarthria Psychiatric: Orientation: oriented x 3 Apperance: + disheveled Eye Contact: good eye contact Speech: + pressured speech Affect: + irritable affect Results & Data ([facility]) Vital Signs (Past 12 Hours) Vital Signs Temp Pulse Pulse Resp BP BP Pulse Ox 09/21/20 11:06 36.5 C 81 18 148/82 H 98 09/21/20 07:28 87 09/21/20 07:20 36.8 C 88 20 158/79 H 97 09/21/20 03:20 36.4 C L 68 18 130/69 97 09/20/20 23:38 87 Laboratory Results WBC 4, Hb 13, Hct 39, Plts 68, Na 140, K 3.4, Cl 110, CO2 23, BUN 16, Cr 0.74, glucose 84. T Bili 1.8-> 1.5, AST 42->39, ALT 30, Alk Phos 94. Zinc level is pending Diagnostic Findings US 09/19/20: 1. No ascites. 2. Cirrhosis with splenomegaly, unchanged.
[2020-09-21] MEDS ORDERED: FLUTICASONE PROPIONATE NA SPR 16 GM BTL PRN (14:05)
[2020-09-21] MEDS: cefTRIAXone SODIUM 2,000 MG in DEXTROSE 5% 50 ML IV SCH (14:29)
[2020-09-21] MEDS ORDERED: POTASSIUM CHLORIDE CRTAB 20 MEQ TABCR PO ONE (16:00)
[2020-09-21] MEDS ORDERED: DULoxetine HCL 30 MG CAP PO SCH (21:00)
[2020-09-21] MEDS: PROMETHAZINE HCL 12.5 MG in SODIUM CHLORIDE 0.9% 50 ML IV PRN (22:45)
[2020-09-22] MEDS: GABAPENTIN 600 MG TAB PO SCH ×2 (02:13→12:05)
[2020-09-22] MEDS: PROMETHAZINE HCL 12.5 MG in SODIUM CHLORIDE 0.9% 50 ML IV PRN (03:33)
[2020-09-22] MEDS: FUROSEMIDE 40 MG TAB PO SCH (07:02)
[2020-09-22 07:57] LABS: Hematocrit (blood only) 38.8 % (42-52); Hemoglobin 13.6 g/dL (14.0-18.0); Mean Corpuscular Hemoglobin 32.2 pg (25-34); Mean Corpuscular Hgb Conc 35.1 g/dL (32-36); Mean Corpuscular Volume 91.9 fL (80-100); RDW Coefficient of Variation 15.4 % (11.5-14.5); RDW Standard Deviation 51.8 fL (36.4-46.3); Red Blood Count 4.22 M/uL (4.7-6.1); White Blood Count 5.13 K/uL (4.8-10.8)
[2020-09-22 08:02] LABS: Mean Platelet Volume 11.2 fL (7.4-10.4); Platelet Count 65 K/uL (130-400)
[2020-09-22 08:16] LABS: Albumin Level 3.1 gm/dl (3.4-5.0); BUN Creatinine Ratio 18.1 (10-20); Creatinine Clr Calc Pharmacy 123.1 ml/min; Est GFR (African American) 123.3 ml/min; Est GFR (Non-African American) 106.4 ml/min; Magnesium 1.7 mg/dl (1.8-2.4)
[2020-09-22 08:21] LABS: Albumin Globulin Ratio 0.8 (0.9-2); Bilirubin,Total 1.2 mg/dl (0.2-1); Globulin 3.7 gm/dl (2.5-4.0); Total Protein 6.8 gm/dl (6.4-8.2)
[2020-09-22] MEDS ORDERED: LACTULOSE SYRUP 30 GM/45 ML UDP PO SCH (09:00)
[2020-09-22] MEDS: THIAMINE HCL 100 MG TAB PO SCH (09:39)
[2020-09-22] MEDS: CYANOCOBALAMIN (VITAMIN B-12) 100 MCG TABLET PO SCH (09:39)
[2020-09-22] MEDS: PANTOprazole 40 MG TAB PO SCH (09:39)
[2020-09-22] MEDS: NICOTINE 21 MG/24 HR TDSY TD SCH (09:39)
[2020-09-22] MEDS: POTASSIUM CHLORIDE PWD 20 MEQ PACK PO SCH (09:39)
[2020-09-22] MEDS: FOLIC ACID 1 MG TAB PO SCH (09:39)
[2020-09-22] MEDS: SPIRONOLACTONE 100 MG TAB PO SCH (09:40)
[2020-09-22] MEDS: FERROUS SULFATE 325 MG TAB PO SCH (09:40)
[2020-09-22] MEDS: DOXYCYCLINE HYCLATE 100 MG CAP PO SCH (09:40)
[2020-09-22] MEDS: rifAXIMin 550 MG TABLET PO SCH (09:40)
--- NOTE | 2020-09-22 11:18 | Hospitalist Progress Note ---
Date of Service September 22, 2020 Assessment & Plan (1) Hepatic encephalopathy: Plan: (1) History of cirrhosis of liver: (2) Hepatic encephalopathy: Plan: Hepatic encephalopathy Toxic and Metabolic Encephalopathy -CT Head:No acute intracranial abnormality. -Portal vein ultrasound:Nondiagnostic evaluation of the portal vein. Cirrhotic liver. Questionable compliance with home medications--Patient reports to being compliant Ammonia level elevated, improved Mental status is back to baseline GI consulted recommend to decrease Lactulose to once a day (goal 3-4 bowel movements per day, PRN second dose- explained to patient, he verbalized understanding) Continue rifaximin follow up with GI upon discharge Marijuana use States being prescribed medically as per patient Likely contributed to encephalopathy Counseled to quit marijuana use (3) Acute UTI: Plan: Urine culture: MRSA , > 100,000 colony units Blood cultures negative to date On ceftriaxone, Doxy Day #4 discharge on Doxycycline x 4 more days to complete 8 day course (4) Thrombocytopenia: Plan: Chronic, due to underlying cirrhosis Platelet count 68K No signs of bleeding H/O alcohol use Denies any recent use Last drinks more than 6 years ago as per patient placed On gabapentin protocol Thiamine, folic acid -- no signs of overt alcohol withdrawal Chronic back pain S/P L3-L4 decompression fusion surgery by Dr. Bauer ? Greater trochanter bursitis Ortho consulted: recommended SI joint injection as outpatient Tobacco use disorder Nicotine patch Counseled to quit smoking Disposition d/c home ff up with PCP in 1 week ff up with GI in 2 weeks ff up for SI joint injection as outpatient plan of care discussed with patient in detail and at length all questions answered he is understanding, agreeable, comfortable with the plan of care Admission and Anticipated Discharge Date Admission Date: September 19, 2020 Subjective ff up for hep enceph, etc seen resting in bed, comfortable oriented x 3, answers all questions appropriately states he feels much better overall no urinary symptoms no fever/chills denies other symptoms states he is ready and would like to be discharged today Review of Systems Review of Systems: all noted and negative except for above Physical Exam Physical Exam: General- oriented x 3, not in distress, speaks in sentences with no effort or accessory muscle use Eyes- anicteric Neck- no JVD Lungs- clear BS BL no rales/wheezing Heart- normal rate, regular rhythm; no murmurs Abdomen- normal bowel sounds, nondistended, soft, nontender Extremities- no pretibial edema, no calf tenderness Neuro- alert, oriented x 3; no gross focal neurologic deficits Skin- warm & dry Results & Data Results & Data ([facility]) Vital Signs (Past 12 Hours) Vital Signs Temp Pulse Pulse Pulse Resp BP Pulse Ox 09/22/20 07:51 91 H 09/22/20 07:45 37 C 67 20 145/81 H 96 09/22/20 03:43 36.6 C 88 18 132/70 96 09/22/20 00:36 81 09/21/20 23:56 36.5 C 77 18 116/66 97 all noted and reviewed including below
--- NOTE | 2020-09-22 11:49 | Discharge Summary ---
Date of Service September 22, 2020 Admission HPI Per Admitting Provider 60-year-old male with PMH alcoholic cirrhosis with grade 1 esophageal varices and portal hypertension, chronic thrombocytopenia, GERD, and other problems listed below who presents to the ED for evaluation of confusion. History is unobtainable from the patient. Reviewed outpatient record. Patient's roommate reports that the patient was walking around their apartment naked and he locked himself in the bathroom. Patient with history of alcoholic cirrhosis on lactulose, noted that this medication has not been filled since May 2020. In the ED, labs show ammonia level 93.5, otherwise unremarkable/at patient's baseline. Head CT negative for acute findings. Tox screen and alcohol level negative. UA suggestive of UTI. Patient was given IV ceftriaxone. Admission Exam Per Admitting Provider General Appearance:Moderately built and nourished, no apparent distress Head: normocephalic, Atraumatic Eyes: normal inspection, EOMI Neck: supple, Trachea midline Respiratory/Chest: Normal breath sounds, CTA, No accessory muscle use Cardiovascular: S1, S2, No murmur Abdomen/GI:Soft, generalized tender, Bowel sounds present, no guarding or rigidity, +mild distention Extremities/Musculoskeletal:normal inspection, 1+ B/L LE edema Neurologic/Psych:AAOX1, Confused, grossly no focal neurological deficits, moves all extremities Skin: normal color, warm Principal Diagnosis Hepatic encephalopathy Discharge Exam General- oriented x 3, not in distress, speaks in sentences with no effort or accessory muscle use Eyes- anicteric Neck- no JVD Lungs- clear BS BL no rales/wheezing Heart- normal rate, regular rhythm; no murmurs Abdomen- normal bowel sounds, nondistended, soft, nontender Extremities- no pretibial edema, no calf tenderness Neuro- alert, oriented x 3; no gross focal neurologic deficits Skin- warm & dry Discharge Data Allergies Allergy/AdvReac Type Severity Reaction Status Date / Time No Known Allergies Allergy Verified 09/19/20 14:12 Consultations 09/19/20 15:13 ED Decision to Admit Stat 09/19/20 19:42 Consult Gastroenterology Routine 09/20/20 12:09 Consult Orthopedic Surgery Routine Ordered Studies 09/19/20 13:38 CT head/brain wo con Stat Findings: The paranasal sinuses and mastoid air cells are clear. The calvarium and skull base are intact. The ventricles and sulci are within normal limits. There is no mass, hematoma, midline shift, or acute infarct. Impression: No acute intracranial abnormality. 09/19/20 15:42 US abdomen ltd ascites Urgent FINDINGS: Real-time sonographic imaging of the abdomen was performed with customer loyalty representative images submitted. No ascites identified. Nodular contour to the liver consistent with cirrhosis. The spleen is enlarged measuring 16 cm in length. This is similar to the prior study is likely due to the portal hypertension. IMPRESSION: 1. No ascites. 2. Cirrhosis with splenomegaly, unchanged. 09/20/20 11:03 US duplex portal hepatic veins Routine FINDINGS: Nondiagnostic evaluation of the portal and hepatic veins due to patient motion and limited acoustic windows. Nodular contour to the liver consistent with cirrhosis. IMPRESSION: 1. Nondiagnostic evaluation of the portal vein. 2. Cirrhotic liver. Hospital Course (1) Hepatic encephalopathy: Hepatic encephalopathy Toxic and Metabolic Encephalopathy History of cirrhosis of liver -CT Head:No acute intracranial abnormality. -Portal vein ultrasound:Nondiagnostic evaluation of the portal vein. Cirrhotic liver. Questionable compliance with home medications--Patient reports to being compliant Ammonia level elevated, improved Mental status is back to baseline GI consulted recommend to decrease Lactulose to once a day (goal 3-4 bowel movements per day, PRN second dose- explained to patient, he verbalized understanding) Continue rifaximin follow up with GI upon discharge Marijuana use States being prescribed medically as per patient Likely contributed to encephalopathy Counseled to quit marijuana use Acute UTI: Urine culture: MRSA , > 100,000 colony units Blood cultures negative to date On ceftriaxone, Doxy Day #4 discharge on Doxycycline x 4 more days to complete 8 day course Thrombocytopenia: Chronic, due to underlying cirrhosis Platelet count 68K No signs of bleeding H/O alcohol use Denies any recent use Last drinks more than 6 years ago as per patient placed On gabapentin protocol Thiamine, folic acid -- no signs of overt alcohol withdrawal Chronic back pain S/P L3-L4 decompression fusion surgery by Dr. Bauer ? Greater trochanter bursitis Ortho consulted: recommended SI joint injection as outpatient Tobacco use disorder Nicotine patch Counseled to quit smoking Disposition d/c home ff up with PCP in 1 week ff up with GI in 2 weeks ff up for SI joint injection as outpatient plan of care discussed with patient in detail and at length all questions answered he is understanding, agreeable, comfortable with the plan of care Total Time Total Time Spent Total Time Spent (In Minutes): > 30 minutes Discharge Plan Discharge Items Patient Disposition: Home - Self-Care Reason For Visit: ABNORMAL LABS Discharge Diagnosis: Hepatic encephalopathy Activity: Resume your previous activity Activity Comment: Resume activity gradually as tolerated Lifting: No more than 25 pounds Exercise/Sports: Wait until after follow-up appointment Driving/Machine Use: No driving until reevaluated and allowed by primary care physician Non-emergency contact: Primary Care Provider Call non-emergency contact if: you have any medication questions, your symptoms worsen, your pain is not controlled, your pain is worsening, your pain is unusual for you, your pain is concerning for you and you have a fever Follow-up/Referrals: Peter Daniel DO [Physician] - Najma Garcia MD [Primary Care Provider] - 09/28/20 12:00 pm Diet: Heart Healthy Addtl Attending Provider Instructions: Please review new medication list and follow instructions carefully. Medication change: Decrease lactulose to once a day, may take a second dose to ensure 3-4 bowel movements per day New medication: Doxycycline-antibiotic for bladder infection Follow-up with primary care physician as outlined above. Follow-up with [facility] Dr. Peter Daniel in 2 weeks. Please call their office for an appointment. Call primary care physician or return to the ER immediately if with worsening of symptoms. No smoking or alcohol. Always talk to your primary care physician before starting any new medication. Pending Studies at Discharge: No Stand-Alone Forms: My [facility] [employer], Smoking Cessation Medications and DC Order Prescriptions: New doxycycline hyclate 100 mg Capsule 100 mg PO BID 4 Days Qty: 8 RF: 0 lactulose 20 gram/30 mL Solution 30 g PO DAILY Qty: 1200 RF: 0 Continued furosemide 40 mg tablet 40 mg PO BID RF: 0 cyanocobalamin (vitamin B-12) 100 mcg tablet 100 mcg PO QAM RF: 0 spironolactone 100 mg tablet 100 mg PO BID RF: 0 duloxetine 30 mg capsule,delayed release(DR/EC) 30 mg PO HS RF: 0 Xifaxan 550 mg tablet 550 mg PO BID RF: 0 thiamine mononitrate (vit B1) 100 mg tablet 100 mg PO QAM RF: 0 diclofenac sodium 1 % gel 2 g topical TID PRN (Reason: Pain) RF: 0 fluticasone propionate [Flonase Allergy Relief] 50 mcg/actuation [place],Suspension 2 spray INTRANASAL DAILY PRN (Reason: Allergy Symptoms) RF: 0 folic acid 1 mg tablet 1 mg PO DAILY RF: 0 pantoprazole 40 mg tablet,delayed release (DR/EC) 40 mg PO DAILY RF: 0 potassium chloride 20 mEq packet 20 meq PO DAILY RF: 0 oxycodone 10 mg tablet 10 mg PO Q6 PRN (Reason: Pain, Severe) RF: 0 ferrous sulfate 325 mg (65 mg iron) Tablet 325 mg PO BID RF: 0 cyclobenzaprine 5 mg tablet 5 mg PO HS RF: 0 Discontinued lactulose 10 gram/15 mL Syrup 20 g PO TID RF: 0 Discharge Orders: Discharge Order (Routine); Ordered 09/22/20 Ordered By: Fernando Gaming Admission Data Admit Date/Time: 09/19/20 15:27 Attending Provider: Fernando Gaming Admit Provider: Darshan Arevalo Primary Care Provider: Najma Garcia Other Providers: Darshan Arevalo ; Emilia Velarde ; Viraj Bauer
[2020-09-22] MEDS: cefTRIAXone SODIUM 2,000 MG in DEXTROSE 5% 50 ML IV SCH (13:51)
[2020-09-23 03:16] LABS: Zinc 49 mcg/dL (60-130)
[2020-09-23] MEDS ORDERED: GABAPENTIN 600 MG TAB PO SCH (12:00)
== END 2020-09-22 15:39 | disposition home or self-care (01) | DRG 441 ==
LOC: ED 12:53 → SUATTDRO 15:27 → 2N 15:27

== ENCOUNTER 2021-04-25 13:30 | Inpatient (IN) ==
--- NOTE | 2021-04-25 14:39 | Emergency Department Note ---
Impression & Plan Hepatic encephalopathy, Hx of esophageal varices, Thrombocytopenia, History of cirrhosis of liver ED Provider Note NAME: FABIANA LARRY AGE: 61 SEX: M : 1960 ARRIVES VIA: Ambulance INFORMANT: Patient, ED PROVIDER(S): Des Burns MD Chief Complaint: Confusion HPI: Patient presents due to concern for some confusion. The patient states that he went to go turn his bed on and corrected himself and stated his TV on but was unable to do so this morning. [facility] nurse had called EMS and stated that he had about a 30-minute episode of confusion prior to their arrival the patient has been retaining some fluids. Patient did have recent changes in medications from Lasix to torsemide. BSG was 114 prior to arrival and the patient does use a cane to ambulate. Patient denies any head neck or chest pain currently although he reported some chest discomfort upon arrival here to the emergency department. The patient denies any fevers or chills. He does have a nonproductive cough and does chew tobacco. Patient is not used alcohol in over 6 years. Patient states been compliant with his medications especially his lactulose and has been having regular bowel movements. The patient denies any burning with urination but does have some low back pain with radiation to left lower extremity. Patient does complain of some decreased range of motion. No recent falls in the last 30 days. Patient denies any abdominal pain nausea or vomiting. Patient denies any fevers or chills or bowel or bladder continence or retention. Patient denies any saddle anesthesia. ROS: See HPI for pertinent positives and negatives. A total of 10 systems were reviewed and otherwise negative. Past medical history: See below Surgical history: See below Social history: See below Physical Exam: GENERAL: NAD, wearing glasses, wearing a mask, non-toxic. EYE EXAM: Normal conjunctiva. PERRL, no anisocoria and EOM's grossly intact w/o pain. OROPHARYNX: Dry mucous membranes, edentulous. NECK: Supple, no nuchal rigidity, no adenopathy, non-tender. No signs of meningismus. LUNGS: Clear to auscultation. Normal chest wall mechanics. HEART: NSR, no MRG. ABDOMEN: Abdomen soft, non-tender, normo-active bowel sounds, no masses, no rebound or guarding. BACK: Mild left paraspinal discomfort but no overlying skin changes. SKIN: No rashes and no bruising. UPPER EXTREMITIES: Upper extremities are grossly normal. LOWER EXTREMITIES: Grossly normal, no edema. EKG range of motion left lower extremity secondary pain but is able to raise the leg off the bed and bend the left knee. NEURO EXAM: Awake and alert oriented to person place but not time. Patient is oriented to location and does answer answer simple arithmetic appropriately, cranial nerves II-XII grossly intact, normal speech, moves all 4 extremities on command w/o issue. Good finger to nose, no drift, no sensory deficits. Differential diagnoses: Infection, dehydration, metabolic abnormality, hypo/hyperglycemia, electrolyte disturbance, anemia, hypoxia, cardiac sources, intracerebral event, toxicologic, neurologic, as well as other pathologies. Course: Patient was seen and evaluated the bedside. Full history physical exam was per formed. EKG interpreted by me Normal sinus rhythm, rate of 95, normal intervals, normal axis, no obvious ST elevations Imaging Studies: See Below Cardiac monitoring: An order was placed for continuous cardiac monitoring. The monitor shows a rate of 88 with sinus rhythm. MDM: Patient presented due to concern for confusion. The patient does have a known history of cirrhosis and is on lactulose. Blood work was obtained along with CT of the head urinalysis and ammonia level. Lower shows a normal white count and hemoglobin. The patient's platelet count is slightly low at 86,000. Is likely secondary to the patient's chronic history of liver dysfunction. The patient does have mild elevation in AST and bilirubin. Patient CK slightly elevated at 500. Patient did receive IV fluids. Ammonia is elevated at 106 and believe this is likely etiology of his symptoms as the patient's urinalysis is negative and CT of the head is negative. I did speak with the on-call hospitalist Dr. Healy and the patient was admitted to the medicine service. Patient was ordered first dose of lactulose. Patient's CT of the head is negative. The patient's chest x-ray is clear. The patient's L-spine x-ray does not show any acute bony abnormality. Past Med/Surg History Medical History Anxiety Chronic back pain Closed fracture of fifth toe of left foot Depression GERD (gastroesophageal reflux disease) Hearing deficit right ear perf eardrum History of alcohol abuse quit drinking 5 years ago History of anemia History of cirrhosis of liver D/T ALCOHOL History of hepatitis C Hx of ascites Hx of encephalopathy See recent admission 04/2020 [facility] Hx of esophageal varices 2/2 chronic portal HTN Hx of gynecomastia Hx of thrombocytopenia Baseline platelets ~ 50-75k. 2/2 cirrhosis. Hypertension Lumbar disc herniation Lumbar radiculopathy Osteoarthritis of right knee Portal hypertensive gastropathy Portal vein thrombosis hx Sacroiliitis Urinary tract infection hx, recurrent Surgical History Fusion of spine February 2019 History of colonoscopy with polypectomy History of esophagogastroduodenoscopy (EGD) History of lumbar spinal fusion (~05/27/20) Dr. Bauer @ [facility] History of tooth extraction all teeth removed History of total right hip arthroplasty 2018 Hx of decompression of ulnar nerve RIGHT Family History Father Diabetes Other No family history of adverse response to anesthesia Social History Smoking Status: Former smoker Tobacco Type: Cigarettes Cigarettes Per Day: 1ppd x 2 years; Second Hand Exposure: No; Hx Alcohol Use: Yes Alcohol type: beer Alcohol Intake Frequency Comment: history of alcoholism, quit 4+ years ago Hx Substance Use: Yes Last Used Substance: Days (ago) Last Used Substance Other:: 2 months ago Substance Use Type Other:: special occasions Preferred Language: Czech Communication Ability: Impaired Bottle Tester Required: No Beliefs That Will Affect Care: None marital status: Single Current Living Situation: Alone Current Living Situation Comment: [facility] How many Children do You have: 3 Other Information That Helps Us Care for You: No Feels Safe at Home: Yes Safety Concerns: Feels Safe At This Time Assistive Devices: Cane, Glasses and Walker Allergies Allergies Allergy/AdvReac Type Severity Reaction Status Date / Time No Known Allergies Allergy Verified 04/25/21 16:37 Home Meds Home Medications Medication Instructions Recorded Confirmed diclofenac sodium 1 % topical gel 2 g TOPICAL TID PRN 02/29/20 04/25/21 cyanocobalamin (vitamin B-12) 100 100 mcg PO QAM 04/04/20 04/25/21 mcg tablet duloxetine 30 mg capsule,delayed 30 mg PO HS 04/04/20 04/25/21 release rifaximin 550 mg tablet (Xifaxan) 550 mg PO BID 04/04/20 04/25/21 spironolactone 100 mg tablet 100 mg PO BID 04/04/20 04/25/21 thiamine mononitrate (vit B1) 100 100 mg PO QAM 04/04/20 04/25/21 mg tablet fluticasone propionate 50 2 spray INTRANASAL DAILY PRN 04/16/20 04/25/21 mcg/actuation nasal spray,suspension (Flonase Allergy Relief) ferrous sulfate 325 mg (65 mg 325 mg PO BID 09/19/20 04/25/21 iron) tablet folic acid 1 mg tablet 1 mg PO DAILY 09/19/20 04/25/21 oxycodone 10 mg tablet 10 mg PO Q6 PRN 09/19/20 04/25/21 pantoprazole 40 mg tablet,delayed 40 mg PO DAILY 09/19/20 04/25/21 release potassium chloride 20 mEq oral 20 meq PO DAILY 09/19/20 04/25/21 packet albuterol sulfate 90 mcg/actuation 2 puff INHALATION Q4 PRN 04/25/21 04/25/21 aerosol inhaler cyclobenzaprine 10 mg tablet 10 mg PO TID PRN 04/25/21 04/25/21 duloxetine 60 mg capsule,delayed 60 mg PO HS 04/25/21 04/25/21 release pregabalin 50 mg capsule 50 mg PO AMHS 04/25/21 04/25/21 torsemide 20 mg tablet 20 mg PO AMHS 04/25/21 04/25/21 Previous Rx's Medication Instructions Recorded lactulose 20 gram/30 mL oral 30 g PO DAILY #1200 ml 09/22/20 solution Results & Data (ED) Vital Signs Vital Signs - 24 hr 04/25/21 13:18 04/25/21 13:40 04/25/21 13:58 Temperature 37 C Temperature Source Oral Pulse Rate 97 H Pulse Rate [Apical] 92 H Pulse Rhythm [Apical] Respiratory Rate 17 21 Respiratory Effort / Characteristics Non-Labored Spontaneous Non-Labored Spontaneous Respiratory Depth Normal Normal Blood Pressure 141/92 H Blood Pressure [Right Arm] Blood Pressure Mean 108 Blood Pressure Mean [Right Arm] Blood Pressure Position Lying Pulse Oximetry 95 98 98 Oxygen Delivery Method Room Air Room Air Room Air Sepsis Recent Fever Within 48 Hours No Sepsis New/Unexplained Change in Mental Status Yes Sepsis Action Taken by Nursing No Action Required 04/25/21 14:31 04/25/21 17:00 Temperature Temperature Source Pulse Rate Pulse Rate [Apical] 90 Pulse Rhythm [Apical] Regular Respiratory Rate 12 Respiratory Effort / Characteristics Respiratory Depth Normal Blood Pressure Blood Pressure [Right Arm] 90/70 L Blood Pressure Mean Blood Pressure Mean [Right Arm] 76 Blood Pressure Position Pulse Oximetry 94 98 Oxygen Delivery Method Room Air Room Air Sepsis Recent Fever Within 48 Hours Sepsis New/Unexplained Change in Mental Status Sepsis Action Taken by Retirement Medications Current Medication List: was personally reviewed by me Laboratory Data Attestation: I reviewed the patient's lab results. Result diagrams: 04/25/21 13:00 04/25/21 13:00 Lab Results 04/25/21 04/25/21 04/25/21 Range/Units 13:00 13:00 13:00 WBC 5.14 (4.8-10.8) K/uL RBC 4.22 L (4.7-6.1) M/uL Hgb 15.0 (14.0-18.0) g/dL Hct 41.8 L (42-52) % MCV 99.1 (80-100) fL MCH 35.5 H (25-34) pg MCHC 35.9 (32-36) g/dL RDW Std Deviation 48.1 H (36.4-46.3) fL RDW Coeff of Abhijit 13.5 (11.5-14.5) % Plt Count 86 L (130-400) K/uL MPV 11.6 H (7.4-10.4) fL Immature Gran % (Auto) 0.0 % Neut % (Auto) 64.4 % Lymph % (Auto) 22.2 % [place] % (Auto) 10.9 % Eos % (Auto) 2.1 % Baso % (Auto) 0.4 % Neut # (Auto) 3.31 (1.4-6.5) K/uL Lymph # (Auto) 1.14 L (1.2-3.4) K/uL [place] # (Auto) 0.56 (0.11-0.59) K/uL Eos # (Auto) 0.11 (0-0.5) K/uL Baso # (Auto) 0.02 (0-0.2) K/uL Immature Gran # (Auto) 0.00 (0.00-0.02) K/uL Sodium 136 (136-145) mmol/L Potassium 3.9 (3.5-5.1) mmol/L Chloride 105 (98-107) mmol/L Carbon Dioxide 24 (21-32) mmol/L Anion Gap 7 (3-11) BUN 15 (6-23) mg/dl Creatinine 0.87 (0.6-1.4) mg/dl Est Cr Clr Drug Dosing 95.6 ml/min Est GFR ( Amer) 108.0 ml/min Est GFR (Non-Af Amer) 93.2 ml/min BUN/Creatinine Ratio 17.2 (10-20) Glucose 95 (70-99(Fasting)) mg/dl Calcium 9.3 (8.5-10.1) mg/dl Total Bilirubin 1.5 H (0.2-1.0) mg/dl AST 63 H (13-39) U/L ALT 34 (7-52) U/L Alkaline Phosphatase 92 (34-104) U/L Ammonia (18-72) umol/L Total Creatine Kinase 512 H (30-223) U/L Troponin I < 0.03 (0-0.04) ng/ml Total Protein 7.5 (6.0-8.3) gm/dl Albumin 3.9 (3.4-5.0) gm/dl Globulin 3.6 (2.5-4.0) gm/dl Albumin/Globulin Ratio 1.1 (0.9-2) TSH 1.508 (0.300-4.500) uIu/ml Urine Color Urine Appearance (Clear) Urine pH (4.5-7.5) Ur Specific [place] (1.000-1.030) Urine Protein (Negative) Urine Glucose (UA) (Negative) Urine Ketones (Negative) Urine Blood (Negative) Urine Nitrite (Negative) Urine Bilirubin (Negative) Urine Urobilinogen (Negative) Ur Leukocyte Esterase (Negative) SARS-CoV-2, RNA, NAAT (NEGATIVE) 04/25/21 04/25/21 04/25/21 Range/Units 13:00 15:14 15:47 WBC (4.8-10.8) K/uL RBC (4.7-6.1) M/uL Hgb (14.0-18.0) g/dL Hct (42-52) % MCV (80-100) fL MCH (25-34) pg MCHC (32-36) g/dL RDW Std Deviation (36.4-46.3) fL RDW Coeff of Abhijit (11.5-14.5) % Plt Count (130-400) K/uL MPV (7.4-10.4) fL Immature Gran % (Auto) % Neut % (Auto) % Lymph % (Auto) % [place] % (Auto) % Eos % (Auto) % Baso % (Auto) % Neut # (Auto) (1.4-6.5) K/uL Lymph # (Auto) (1.2-3.4) K/uL [place] # (Auto) (0.11-0.59) K/uL Eos # (Auto) (0-0.5) K/uL Baso # (Auto) (0-0.2) K/uL Immature Gran # (Auto) (0.00-0.02) K/uL Sodium (136-145) mmol/L Potassium (3.5-5.1) mmol/L Chloride (98-107) mmol/L Carbon Dioxide (21-32) mmol/L Anion Gap (3-11) BUN (6-23) mg/dl Creatinine (0.6-1.4) mg/dl Est Cr Clr Drug Dosing ml/min Est GFR ( Amer) ml/min Est GFR (Non-Af Amer) ml/min BUN/Creatinine Ratio (10-20) Glucose (70-99(Fasting)) mg/dl Calcium (8.5-10.1) mg/dl Total Bilirubin (0.2-1.0) mg/dl AST (13-39) U/L ALT (7-52) U/L Alkaline Phosphatase (34-104) U/L Ammonia 106.0 H (18-72) umol/L Total Creatine Kinase (30-223) U/L Troponin I (0-0.04) ng/ml Total Protein (6.0-8.3) gm/dl Albumin (3.4-5.0) gm/dl Globulin (2.5-4.0) gm/dl Albumin/Globulin Ratio (0.9-2) TSH (0.300-4.500) uIu/ml Urine Color Yellow Urine Appearance Clear (Clear) Urine pH 6.5 (4.5-7.5) Ur Specific [place] 1.011 (1.000-1.030) Urine Protein Negative (Negative) Urine Glucose (UA) Negative (Negative) Urine Ketones Negative (Negative) Urine Blood Negative (Negative) Urine Nitrite Negative (Negative) Urine Bilirubin Negative (Negative) Urine Urobilinogen Negative (Negative) Ur Leukocyte Esterase Negative (Negative) SARS-CoV-2, RNA, NAAT NEGATIVE (NEGATIVE) Administered Medications Discontinued Medications Lactulose (Lactulose Syrup 20 Gm/30 Ml Udc) 20 gm PO NOW ONE Stop: 04/25/21 16:21 Last Admin: 04/25/21 17:59 Dose: 20 gm Documented by: [id number] Imaging Data Radiologist's Impression: Chest X-Ray 04/25/21 14:31 XR chest 1V portable CLINICAL HISTORY: weakness. Evaluate cardiopulmonary status. COMPARISON STUDY: 09/19/2020 TECHNIQUE: 1 view of the chest FINDINGS: Single frontal view of the chest demonstrates the cardiomediastinal silhouette to be within normal limits. The lungs are clear of alveolar opacities. There is no evidence for pleural effusion. There is no evidence for vascular congestion. There is no acute osseous pathology. IMPRESSION: 1. No acute cardiopulmonary disease. ACT 112: Negative or not required by law. Electronically signed by: Chilo Smith M.D. 04/25/2021 3:[address] 04/25/21 14:56 CT head/brain wo con CLINICAL HISTORY: confusion, h/o liver disease COMPARISON STUDY: 09/19/2020 CT DOSE: 537.48 mGy.cm TECHNIQUE: Standard CT of the Brain was performed without IV contrast. A dose lowering technique was utilized adhering to the principles of ALARA. FINDINGS: Extraaxial space: There is no evidence for subdural hematoma. There are no extra-axial fluid collections. Ventricles and cisterns: The ventricles are normal in size and configuration. There is no evidence for midline shift or mass effect. Parenchyma: There is no subarachnoid or intraparenchymal hemorrhage. There is no evidence for an acute infarct or cerebral edema. There is homogeneous attenuation of the brain parenchyma. There are no gross mass lesions. Osseous structures: There is no evidence for an acute fracture. The visualized paranasal sinuses are clear. The mastoid air cells are clear bilaterally. Soft tissues: There is no evidence for focal soft tissue swelling. IMPRESSION: 1. No acute intracerebral pathology. ACT 112: Negative or not required by law. Electronically signed by: Chilo Smith M.D. 04/25/2021 3:41 PM Lumbar Spine X-Ray 04/25/21 15:14 LUMBAR SPINE 3 VIEWS CLINICAL HISTORY: Chronic low back pain. FINDINGS: 3 views of the lumbar spine are compared to study dated 09/21/[address] of the lumbar spine dated 03/16/2020. The skeletal structures are osteopenic. There is no radiographic evidence of acute fracture or malalignment. There are minimal chronic compression deformities of L3 and L4. Vertebral body height is otherwise maintained throughout the lumbar spine. Alignment is preserved. There is postoperative change from discectomy at L3-L4 with laminectomy and posterior fusion at this level. Intrapedicular screws are in place. The orthopedic hardware appears intact. Small anterior and lateral marginal osteophytes are seen throughout. There is minimal lumbar levocurvature centered at L3-L4. The transverse processes are intact as visualized. The disc spaces appear maintained. Multilevel facet arthropathy is identified. The bony pelvis is intact as imaged. Sclerotic change is noted in the sacroiliac joints. A right hip arthroplasty is partially imaged. There is no bowel obstruction. Moderate fecal retention is noted throughout the left colon. IMPRESSION: 1. No acute bony abnormality is seen involving the lumbar spine. 2. Osteopenia with postoperative and spondylotic changes as above. Electronically signed by: Jamil Freedman M.D. 04/25/2021 4:51 PM Discharge Plan Visit Data Chief Complaint: Confusion ED Provider: Des Burns Discharge Problem: Hepatic encephalopathy, Hx of esophageal varices, Thrombocytopenia, History of cirrhosis of liver Patient Disposition: Admitted As Inpatient Discharge Instructions Interventions: ED Discharge Assessment Last Done: 04/25/21 19:19
[2021-04-25 14:44] LABS: Appearance Urine Clear (Clear); Bilirubin Urine Negative (Negative); Blood Urine Negative (Negative); Color Urine Yellow; Glucose Urine UA Negative (Negative); Ketones Urine Negative (Negative); Leukocyte Esterase Urine Negative (Negative); Nitrite Urine Negative (Negative); Protein Urine Negative (Negative); Specific Gravity Urine 1.011 (1.000-1.030); Urobilinogen Urine Negative (Negative); pH Urine 6.5 (4.5-7.5)
[2021-04-25 15:02] LABS: Hematocrit (blood only) 41.8 % (42-52); Mean Corpuscular Hemoglobin 35.5 pg (25-34); Mean Corpuscular Hgb Conc 35.9 g/dL (32-36); Mean Corpuscular Volume 99.1 fL (80-100); Mean Platelet Volume 11.6 fL (7.4-10.4); Platelet Count 86 K/uL (130-400); RDW Coefficient of Variation 13.5 % (11.5-14.5); RDW Standard Deviation 48.1 fL (36.4-46.3); Red Blood Count 4.22 M/uL (4.7-6.1); White Blood Count 5.14 K/uL (4.8-10.8)
[2021-04-25 15:14] LABS: Alanine Aminotransferase 34 U/L (7-52); Albumin Globulin Ratio 1.1 (0.9-2); Albumin Level 3.9 gm/dl (3.4-5.0); Alkaline Phosphatase 92 U/L (34-104); Anion Gap 7 (3-11); Aspartate Aminotransferase 63 U/L (13-39); BUN Creatinine Ratio 17.2 (10-20); Basophils # (auto) 0.02 K/uL (0-0.2); Basophils % (auto) 0.4 %; Bilirubin,Total 1.5 mg/dl (0.2-1.0); Blood Urea Nitrogen 15 mg/dl (6-23); Calcium 9.3 mg/dl (8.5-10.1); Carbon Dioxide 24 mmol/L (21-32); Chloride 105 mmol/L (98-107); Creatine Kinase 512 U/L (30-223); Creatinine Clr Calc Pharmacy 95.6 ml/min; Eosinophils # (auto) 0.11 K/uL (0-0.5); Eosinophils % (auto) 2.1 %; Est GFR (Non-African American) 93.2 ml/min; Globulin 3.6 gm/dl (2.5-4.0); Glucose 95 mg/dl (70-99(Fasting)); Lymphocytes # (auto) 1.14 K/uL (1.2-3.4); Lymphocytes % (auto) 22.2 %; Monocytes # (auto) 0.56 K/uL (0.11-0.59); Monocytes % (auto) 10.9 %; Neutrophils # (auto) 3.31 K/uL (1.4-6.5); Neutrophils % (auto) 64.4 %; Potassium 3.9 mmol/L (3.5-5.1); Sodium 136 mmol/L (136-145); Total Protein 7.5 gm/dl (6.0-8.3); Troponin I < 0.03 ng/ml (0-0.04)
--- NOTE | 2021-04-25 15:40 | XRay Report ---
XR chest 1V portable CLINICAL HISTORY: weakness. Evaluate cardiopulmonary status. COMPARISON STUDY: 09/19/2020 TECHNIQUE: 1 view of the chest FINDINGS: Single frontal view of the chest demonstrates the cardiomediastinal silhouette to be within normal li mits. The lungs are clear of alveolar opacities. There is no evidence for pleural effusion. There is no evidence for vascular congestion. There is no acute osseous pathology. IMPRESSION: 1. No acute cardiopulmonary disease. ACT 112: Negative or not required by law. Electronically signed by: Chilo Smith M.D. 04/25/2021 3:39 PM
--- NOTE | 2021-04-25 15:43 | CT Scan Report ---
CT head/brain wo con CLINICAL HISTORY: confusion, h/o liver disease COMPARISON STUDY: 09/19/2020 CT DOSE: 537.48 mGy.cm TECHNIQUE: Standard CT of the Brain was performed without IV contrast. A dose lowering technique was utilized adhering to the principles of ALARA. FINDINGS: Extraaxial space: There is no evidence for subdural hematoma. There are no extra-axial fluid collecti ons. Ventricles and cisterns: The ventricles are normal in size and configuration. There is no evidence fo r midline shift or mass effect. Parenchyma: There is no subarachnoid or intraparenchymal hemorrhage. There is no evidence for an acut e infarct or cerebral edema. There is homogeneous attenuation of the brain parenchyma. There are no g ross mass lesions. Osseous structures: There is no evidence for an acute fracture. The visualized paranasal sinuses are clear. The mastoid air cells are clear bilaterally. Soft tissues: There is no evidence for focal soft tissue swelling. IMPRESSION: 1. No acute intracerebral pathology. ACT 112: Negative or not required by law. Electronically signed by: Chilo Smith M.D. 04/25/2021 3:41 PM
[2021-04-25] MEDS ORDERED: LACTULOSE SYRUP 20 GM/30 ML UDC PO ONE (16:20)
--- NOTE | 2021-04-25 16:53 | XRay Report ---
LUMBAR SPINE 3 VIEWS CLINICAL HISTORY: Chronic low back pain. FINDINGS: 3 views of the lumbar spine are compared to study dated 09/21/[address] of the lumbar spine dated 03/16/2020. The skeletal structures are osteopenic. There is no radiographic ev idence of acute fracture or malalignment. There are minimal chronic compression deformities of L3 and L4. Vertebral body height is otherwise maintained throughout the lumbar spine. Alignment is preserve d. There is postoperative change from discectomy at L3-L4 with laminectomy and posterior fusion at th is level. Intrapedicular screws are in place. The orthopedic hardware appears intact. Small anterior and lateral marginal osteophytes are seen throughout. There is minimal lumbar levocurvature centered at L3-L4. The transverse processes are intact as visualized. The disc spaces appear maintained. Multi level facet arthropathy is identified. The bony pelvis is intact as imaged. Sclerotic change is noted in the sacroiliac joints. A right hip arthroplasty is partially imaged. There is no bowel obstructio n. Moderate fecal retention is noted throughout the left colon. IMPRESSION: 1. No acute bony abnormality is seen involving the lumbar spine. 2. Osteopenia with postoperative and spondylotic changes as above. Electronically signed by: Jamil Freedman M.D. 04/25/2021 4:51 PM
--- NOTE | 2021-04-25 16:57 | Electrocardiogram Report ---
Test Reason : Blood Pressure : / mmHG Vent. Rate : 095 BPM Atrial Rate : 095 BPM P-R Int : 176 ms QRS Dur : 100 ms QT Int : 368 ms P-R-T Axes : 069 028 068 degrees QTc Int : 462 ms Normal sinus rhythm Low voltage QRS Borderline ECG Poor R wave progression, consider anterior ND vs. lead placement vs. LVH Confirmed by Rey Edwards ([id number]) on 04/25/2021 4:57:02 PM Referred By: Confirmed By:Jac Edwards
--- NOTE | 2021-04-25 16:58 | History & Physical Report ---
Date of Service April 25, 2021 Assessment & Plan (1) Hepatic encephalopathy: Plan: Saleem confusion present with uncertain precipitating factors. Reports compliance with lactulose, no constipation and reports 2 BMs this am. He did have IV lasix in the past week via [facility] and has had his oral lasix switched to oral torsemide recently. Reports compliance with other medications. There is no evidence of infection or bleeding or renal failure. Increase lactulose to TID. Evaluate abdomen with US for presence of ascites, although SBP felt to be less likely with no fevers, chills, abdominal pain, fluid wave on exam and no leukocytosis. Will trend ammonia in am and consult GI. Low protein, low salt diet recommended. (2) Cirrhosis: Plan: chronic, 2/2 alcohol and reports cessation since 2014. Plan as above. Follow liver labs in am and monitor for clinical improvement with lactulose. (3) Hx of esophageal varices: Plan: No reports of bleeding. (4) Protein calorie malnutrition: Plan: Noted in outpatient record on review. Consider nutrition consult. (5) DVT prophylaxis: Plan: Lovenox Full Code per my discussion with him on admission. Dispo-to telemetry Ct Healy DO [facility] Hospitalist History of Present Illness Chief Complaint: confusion Primary Care Provider: Najma Garcia MD 61 yo M with a history of alcoholic cirrhosis since 2014 who presents with an elevated ammonia level and worsening confusion over the past two days. He has a known h/o esophageal varices, h/o hepatic encephalopathy and h/o ascites. He is taking furosemide, spironolactone, potassium and rifaximin. He lives with roommates and has a "house lady" who runs the home. He reports waking up this morning very confused when he tried to use the TV remote. He also reports some concerns with his breathing at the time, although he only points to his chest and cannot accurately describe what was happening. He is currently not requiring oxygen supplementation and is no working to breathe or demonstrating conversational dyspnea. He denies chest pain. He denies fevers or chills and has no abdominal pain. He cannot tell me where he is or the date today but is oriented to self and knows some of his medical history. He reports having two doses of lactulose this morning and taking two bowel movements. Denies hematemesis and denies any blood per rectum. Takes oxycodone three times daily chronically for low back pain. Allergies Allergy/AdvReac Type Severity Reaction Status Date / Time No Known Allergies Allergy Verified 04/25/21 16:37 Home Medications Medication Instructions Recorded Confirmed Type diclofenac sodium 1 % topical gel 2 g TOPICAL TID PRN 02/29/20 04/25/21 History cyanocobalamin (vitamin B-12) 100 100 mcg PO QAM 04/04/20 04/25/21 History mcg tablet duloxetine 30 mg capsule,delayed 30 mg PO HS 04/04/20 04/25/21 History release rifaximin 550 mg tablet (Xifaxan) 550 mg PO BID 04/04/20 04/25/21 History spironolactone 100 mg tablet 100 mg PO BID 04/04/20 04/25/21 History thiamine mononitrate (vit B1) 100 100 mg PO QAM 04/04/20 04/25/21 History mg tablet fluticasone propionate 50 2 spray INTRANASAL DAILY PRN 04/16/20 04/25/21 History mcg/actuation nasal spray,suspension (Flonase Allergy Relief) ferrous sulfate 325 mg (65 mg 325 mg PO BID 09/19/20 04/25/21 History iron) tablet folic acid 1 mg tablet 1 mg PO DAILY 09/19/20 04/25/21 History oxycodone 10 mg tablet 10 mg PO Q6 PRN 09/19/20 04/25/21 History pantoprazole 40 mg tablet,delayed 40 mg PO DAILY 09/19/20 04/25/21 History release potassium chloride 20 mEq oral 20 meq PO DAILY 09/19/20 04/25/21 History packet lactulose 20 gram/30 mL oral 30 g PO DAILY #1200 ml 09/22/20 04/25/21 Rx solution albuterol sulfate 90 mcg/actuation 2 puff INHALATION Q4 PRN 04/25/21 04/25/21 History aerosol inhaler cyclobenzaprine 10 mg tablet 10 mg PO TID PRN 04/25/21 04/25/21 History duloxetine 60 mg capsule,delayed 60 mg PO HS 04/25/21 04/25/21 History release pregabalin 50 mg capsule 50 mg PO AMHS 04/25/21 04/25/21 History torsemide 20 mg tablet 20 mg PO AMHS 04/25/21 04/25/21 History Past Med/Surg History Medical History Anxiety Chronic back pain Closed fracture of fifth toe of left foot Depression GERD (gastroesophageal reflux disease) Hearing deficit right ear perf eardrum History of alcohol abuse quit drinking 5 years ago History of anemia History of cirrhosis of liver D/T ALCOHOL History of hepatitis C Hx of ascites Hx of encephalopathy See recent admission 04/2020 [facility] Hx of esophageal varices 2/2 chronic portal HTN Hx of gynecomastia Hx of thrombocytopenia Baseline platelets ~ 50-75k. 2/2 cirrhosis. Hypertension Lumbar disc herniation Lumbar radiculopathy Osteoarthritis of right knee Portal hypertensive gastropathy Portal vein thrombosis hx Sacroiliitis Urinary tract infection hx, recurrent Surgical History Fusion of spine February 2019 History of colonoscopy with polypectomy History of esophagogastroduodenoscopy (EGD) History of lumbar spinal fusion (~05/27/20) Dr. Bauer @ [facility] History of tooth extraction all teeth removed History of total right hip arthroplasty 2018 Hx of decompression of ulnar nerve RIGHT Family History Father Diabetes Other No family history of adverse response to anesthesia Social History Smoking Status: Former smoker Tobacco Type: Cigarettes Cigarettes Per Day: 1ppd x 2 years; Second Hand Exposure: No; Hx Alcohol Use: Yes Alcohol type: beer Alcohol Intake Frequency Comment: history of alcoholism, quit 4+ years ago Hx Substance Use: Yes Last Used Substance: Days (ago) Last Used Substance Other:: 2 months ago Substance Use Type Other:: special occasions Preferred Language: Sinhala Communication Ability: Impaired K9 Handler Required: No Beliefs That Will Affect Care: None marital status: Single Current Living Situation: Alone Current Living Situation Comment: [facility] How many Children do You have: 3 Other Information That Helps Us Care for You: No Feels Safe at Home: Yes Safety Concerns: Feels Safe At This Time Assistive Devices: Cane, Glasses and Walker Review of Systems Review of Systems: All systems were reviewed and negative except as indicated above. Physical Exam Physical Exam: CONSTITUTIONAL: vitals as above, generally well-appearing, NAD EYES: normal conjunctivae, no scleral icterus ENT: external ear and nose normal, MMM NECK: trachea midline RESPIRATORY: clear to auscultation bilaterally, no crackles, rales or wheezes, normal respiratory effort CARDIOVASCULAR: regular rate and rhythm, S1 and 2 heard without murmurs, gallops or rubs, no JVD, no peripheral edema CHEST: inspection of chest was normal GASTROINTESTINAL: soft, nontender, no guarding, not distended, no fluid wave. MUSCULOSKELETAL: strength 5/5 throughout, head is normocephalic and atraumatic, neck supple, normal palpation of chest wall without tenderness SKIN: warm and dry NEUROLOGIC: No facial palsy, no dysarthria. Touch, pain and proprioception normal. CN 2-12 grossly intact, no sensory deficit, normal cognition, normal speech, no tremor PSYCHIATRIC: alert cooperative and oriented to person,only. Results & Data Results & Data ([facility]) Vital Signs (Past 12 Hours) Vital Signs Temp Pulse Pulse Resp BP Pulse Ox 04/25/21 14:31 94 04/25/21 13:58 92 H 21 98 04/25/21 13:40 37 C 97 H 17 141/92 H 98 04/25/21 13:18 95 Laboratory Results Short CBC 04/25/21 Range/Units 13:00 WBC 5.14 (4.8-10.8) K/uL Hgb 15.0 (14.0-18.0) g/dL Hct 41.8 L (42-52) % Plt Count 86 L (130-400) K/uL BMP 04/25/21 13:00 Sodium 136 Potassium 3.9 Chloride 105 Carbon Dioxide 24 BUN 15 Creatinine 0.87 Glucose 95 Calcium 9.3 Cardiac Enzymes 04/25/21 Range/Units 13:00 Total Creatine Kinase 512 H (30-223) U/L Troponin I < 0.03 (0-0.04) ng/ml Liver Function 04/25/21 Range/Units 13:00 Total Bilirubin 1.5 H (0.2-1.0) mg/dl AST 63 H (13-39) U/L ALT 34 (7-52) U/L Alkaline Phosphatase 92 (34-104) U/L Albumin 3.9 (3.4-5.0) gm/dl Urine 04/25/21 Range/Units 13:00 Urine Color Yellow Urine Appearance Clear (Clear) Urine pH 6.5 (4.5-7.5) Ur Specific [place] 1.011 (1.000-1.030) Urine Protein Negative (Negative) Urine Glucose (UA) Negative (Negative) Diagnostic Findings Chest X-Ray 04/25/21 14:31 XR chest 1V portable CLINICAL HISTORY: weakness. Evaluate cardiopulmonary status. COMPARISON STUDY: 09/19/2020 TECHNIQUE: 1 view of the chest FINDINGS: Single frontal view of the chest demonstrates the cardiomediastinal silhouette to be within normal limits. The lungs are clear of alveolar opacities. There is no evidence for pleural effusion. There is no evidence for vascular congestion. There is no acute osseous pathology. IMPRESSION: 1. No acute cardiopulmonary disease. ACT 112: Negative or not required by law. Electronically signed by: Chilo Smith M.D. 04/25/2021 3:[address] 04/25/21 14:56 CT head/brain wo con CLINICAL HISTORY: confusion, h/o liver disease COMPARISON STUDY: 09/19/2020 CT DOSE: 537.48 mGy.cm TECHNIQUE: Standard CT of the Brain was performed without IV contrast. A dose lowering technique was utilized adhering to the principles of ALARA. FINDINGS: Extraaxial space: There is no evidence for subdural hematoma. There are no extra-axial fluid collections. Ventricles and cisterns: The ventricles are normal in size and configuration. There is no evidence for midline shift or mass effect. Parenchyma: There is no subarachnoid or intraparenchymal hemorrhage. There is no evidence for an acute infarct or cerebral edema. There is homogeneous attenuation of the brain parenchyma. There are no gross mass lesions. Osseous structures: There is no evidence for an acute fracture. The visualized paranasal sinuses are clear. The mastoid air cells are clear bilaterally. Soft tissues: There is no evidence for focal soft tissue swelling. IMPRESSION: 1. No acute intracerebral pathology. ACT 112: Negative or not required by law. Electronically signed by: Chilo Smith M.D. 04/25/2021 3:41 PM Lumbar Spine X-Ray 04/25/21 15:14 LUMBAR SPINE 3 VIEWS CLINICAL HISTORY: Chronic low back pain. FINDINGS: 3 views of the lumbar spine are compared to study dated 09/21/[address] of the lumbar spine dated 03/16/2020. The skeletal structures are osteopenic. There is no radiographic evidence of acute fracture or malalignment. There are minimal chronic compression deformities of L3 and L4. Vertebral body height is otherwise maintained throughout the lumbar spine. Alignment is preserved. There is postoperative change from discectomy at L3-L4 with laminectomy and posterior fusion at this level. Intrapedicular screws are in place. The orthopedic hardware appears intact. Small anterior and lateral marginal osteophytes are seen throughout. There is minimal lumbar levocurvature centered at L3-L4. The transverse processes are intact as visualized. The disc spaces appear maintained. Multilevel facet arthropathy is identified. The bony pelvis is intact as imaged. Sclerotic change is noted in the sacroiliac joints. A right hip arthroplasty is partially imaged. There is no bowel obstruction. Moderate fecal retention is noted throughout the left colon. IMPRESSION: 1. No acute bony abnormality is seen involving the lumbar spine. 2. Osteopenia with postoperative and spondylotic changes as above. Electronically signed by: Jamil Freedman M.D. 04/25/2021 4:51 PM Medications Administered lactulose in ER
[2021-04-25] MEDS ORDERED: oxyCODONE HCL IR 5 MG TAB (IMMEDIATE RELEASE) PO PRN (19:47)
[2021-04-25] MEDS ORDERED: ACETAMINOPHEN 325 MG TAB PO PRN (19:47)
[2021-04-25] MEDS: SPIRONOLACTONE 100 MG TAB PO SCH (21:39)
[2021-04-25] MEDS: PREGABALIN 50 MG CAP PO SCH (21:39)
[2021-04-25] MEDS: DULoxetine HCL 30 MG CAP PO SCH (21:39)
[2021-04-25] MEDS: DULoxetine HCL 60 MG CAP PO SCH (21:40)
[2021-04-25] MEDS: rifAXIMin 550 MG TABLET PO SCH (21:40)
[2021-04-25] MEDS: LACTULOSE SYRUP 20 GM/30 ML UDC PO SCH (21:41)
[2021-04-25] MEDS: TORSEMIDE 20 MG TAB PO SCH (21:41)
[2021-04-26 06:51] LABS: INR 1.2 (0.9-1.1); Prothrombin Time 12.6 Seconds (9.0-12.0)
[2021-04-26 07:08] LABS: Albumin Globulin Ratio 1.1 (0.9-2); Albumin Level 3.5 gm/dl (3.4-5.0); BUN Creatinine Ratio 17.6 (10-20); Bilirubin,Total 1.7 mg/dl (0.2-1.0); Calcium 8.6 mg/dl (8.5-10.1); Creatinine Clr Calc Pharmacy 96.4 ml/min; Globulin 3.3 gm/dl (2.5-4.0); Phosphorus 3.5 mg/dl (2.5-4.9); Potassium 3.9 mmol/L (3.5-5.1); Total Protein 6.8 gm/dl (6.0-8.3)
[2021-04-26] MEDS: ENOXAPARIN INJ 40 MG/0.4 ML SYR SQ SCH (08:30)
[2021-04-26] MEDS: TORSEMIDE 20 MG TAB PO SCH ×2 (08:31→19:35)
[2021-04-26] MEDS: SPIRONOLACTONE 100 MG TAB PO SCH ×2 (08:31→19:35)
[2021-04-26] MEDS: FOLIC ACID 1 MG TAB PO SCH (08:31)
[2021-04-26] MEDS: PANTOprazole 40 MG TAB PO SCH (08:31)
[2021-04-26] MEDS: POTASSIUM CHLORIDE CRTAB 20 MEQ TABCR PO SCH (08:31)
[2021-04-26] MEDS: rifAXIMin 550 MG TABLET PO SCH ×2 (08:31→20:44)
[2021-04-26] MEDS: THIAMINE HCL 100 MG TAB PO SCH (08:31)
[2021-04-26] MEDS: LACTULOSE SYRUP 20 GM/30 ML UDC PO SCH ×3 (08:31→19:35)
[2021-04-26] MEDS: CYANOCOBALAMIN (B-12) 100 MCG TABLET PO SCH (08:32)
[2021-04-26] MEDS: PREGABALIN 50 MG CAP PO SCH ×2 (08:34→20:43)
--- NOTE | 2021-04-26 09:11 | Ultrasound Report ---
ULTRASOUND ASCITES CHECK CLINICAL HISTORY: Abdominal distention. Ascites check. FINDINGS: Real-time grayscale sonography of all 4 quadrants of the abdomen is performed to assess for abdominal ascites. No abdominal ascites is identified. The spleen is enlarged measuring at least 15. 5 cm in length. IMPRESSION: No abdominal ascites is identified. Electronically signed by: Jamil Freedman M.D. 04/26/2021 9:10 AM
--- NOTE | 2021-04-26 19:48 | Hospitalist Progress Note ---
Date of Service April 26, 2021 Assessment & Plan (1) Hepatic encephalopathy: Plan: Saleem confusion present with uncertain precipitating factors. Reports compliance with lactulose, no constipation and reports 2 BMs in the morning of admission. He did have IV lasix in the past week via [facility] and has had his oral lasix switched to oral torsemide recently. Reports compliance with other medications. There is no evidence of infection or bleeding or renal failure. Increase lactulose to TID-to increase bowel movement Evaluate abdomen with US for presence of ascites-no ascites identified. Ammonia level is noted to be high at 106 on admission and that has improved to 94 the morning of 04/26/2021 We will continue rifaximin Clinically much better and seems to have improved to baseline We will recheck ammonia in the morning GI consult in the morning (2) Cirrhosis: Plan: chronic, 2/2 alcohol and reports cessation since 2014. Plan as above. Follow liver labs in am and monitor for clinical improvement with lactulose. (3) Hx of esophageal varices: Plan: No reports of bleeding. (4) Protein calorie malnutrition: Plan: Noted in outpatient record on review. Consider nutrition consult. (5) DVT prophylaxis: Plan: Lovenox Full Code per my discussion with him on admission. Dispo-to telemetry Admission and Anticipated Discharge Date Admission Date: April 25, 2021 Subjective 04/26/2021 The patient was seen and examined in telemetry unit He has been feeling much better since admission and still has mild confusion He complains to have minimal shortness of breath at rest Denies any abdominal distention, pain, nausea and vomiting Review of Systems Review of Systems: All systems reviewed and are unremarkable except as noted below Respiratory: Minimal shortness of breath Gastrointestinal: Minimal abdominal distention Neurologic: Has minimal tremor involving bilateral upper extremities Physical Exam Physical Exam: Lying in bed with minimal shortness of breath at rest Constitutional: well developed, well nourished, + ill appearing and + obese Eyes: PERRL, conjunctivae normal, anicteric sclerae ENMT: external ear and nose normal, oropharynx normal Neck: trachea midline, no thyromegaly Respiratory: no respiratory distress Auscultation: + diminished lung sounds and + crackles (Minimal crackles at the bases) Cardiovascular: Rate/Rhythm: regular rate and regular rhythm; not tachycardic Heart Sounds: normal S1 and normal S2; no murmur Extremities: + edema (1+ edema bilaterally) Gastrointestinal (Abdomen): Inspection/Auscultation: + abdomen distended and normal bowel sounds Percussion/Palpation: abdomen soft and + ascites (Mild ascites clinically); abdomen nontender Musculoskeletal: No acute arthritis in any joint Neurologic: Alert and awake. Bilateral hand tremors, generally very weak and lethargic without any focal neuro deficit Results & Data Results & Data ([facility]) Vital Signs (Past 12 Hours) Vital Signs Temp Pulse Pulse Resp BP Pulse Ox 04/26/21 16:00 87 04/26/21 15:59 36.6 C 87 22 161/95 H 97 04/26/21 13:21 91 H 04/26/21 08:17 36.8 C 84 18 121/72 96 04/26/21 08:00 75 Laboratory Results BMP 04/26/21 06:30 Sodium 137 Potassium 3.9 Chloride 106 Carbon Dioxide 24 BUN 15 Creatinine 0.85 Glucose 98 Calcium 8.6 Liver Function 04/26/21 Range/Units 06:30 Total Bilirubin 1.7 H (0.2-1.0) mg/dl AST 54 H (13-39) U/L ALT 30 (7-52) U/L Alkaline Phosphatase 83 (34-104) U/L Albumin 3.5 (3.4-5.0) gm/dl Medications Administered Current Inpatient Medications Acetaminophen (Acetaminophen 325 Mg Tab) 650 mg PO Q4H PRN PRN Reason: Pain or Fever Stop: 05/25/21 19:46 Last Admin: 04/26/21 10:27 Dose: 650 mg Documented by: Cyanocobalamin (Cyanocobalamin (B-12) 100 Mcg Tablet) 100 mcg PO [facility] Stop: 05/26/21 08:59 Last Admin: 04/26/21 08:32 Dose: 100 mcg Documented by: Duloxetine HCl (Duloxetine Hcl 60 Mg Cap) 60 mg PO [facility] Stop: 05/25/21 20:59 Last Admin: 04/25/21 21:40 Dose: 60 mg Documented by: Duloxetine HCl (Duloxetine Hcl 30 Mg Cap) 30 mg PO [facility] Stop: 05/25/21 20:59 Last Admin: 04/25/21 21:39 Dose: 30 mg Documented by: Enoxaparin Sodium (Enoxaparin Inj 40 Mg/0.4 Ml Syr) 40 mg SQ QAM [facility] Stop: 05/26/21 08:59 Last Admin: 04/26/21 08:30 Dose: 40 mg Documented by: Folic Acid (Folic Acid 1 Mg Tab) 1 mg PO DAILY [facility] Stop: 05/26/21 08:59 Last Admin: 04/26/21 08:31 Dose: 1 mg Documented by: Lactulose (Lactulose Syrup 20 Gm/30 Ml Udc) 20 gm PO TID AMBER Stop: 05/25/21 20:59 Last Admin: 04/26/21 19:35 Dose: 20 gm Documented by: Ondansetron HCl (Ondansetron Inj 2 Mg/Ml 2 Ml Vial) 4 mg IV Q6H PRN PRN Reason: Nausea Stop: 05/25/21 19:46 Oxycodone HCl (Oxycodone Hcl Ir 5 Mg Tab (Immediate Release)) 10 mg PO Q6 PRN PRN Reason: Pain, Severe Stop: 05/09/21 19:46 Last Admin: 04/26/21 13:27 Dose: 10 mg Documented by: Pantoprazole Sodium (Pantoprazole 40 Mg Tab) 40 mg PO DAILY AMBER Stop: 05/26/21 08:59 Last Admin: 04/26/21 08:31 Dose: 40 mg Documented by: Potassium Chloride (Potassium Chloride Crtab 20 Meq Tabcr) 20 meq PO DAILY AMBER Stop: 05/26/21 08:59 Last Admin: 04/26/21 08:31 Dose: 20 meq Documented by: Pregabalin (Pregabalin 50 Mg Cap) 50 mg PO AMHS AMBER Stop: 05/25/21 20:59 Last Admin: 04/26/21 08:34 Dose: 50 mg Documented by: Rifaximin (Rifaximin 550 Mg Tablet) 550 mg PO BID AMBER Stop: 05/25/21 20:59 Last Admin: 04/26/21 08:31 Dose: 550 mg Documented by: Spironolactone (Spironolactone 100 Mg Tab) 100 mg PO BID AMBER Stop: 05/25/21 20:59 Last Admin: 04/26/21 19:35 Dose: 100 mg Documented by: Thiamine HCl (Thiamine Hcl 100 Mg Tab) 100 mg PO QAM AMBER Stop: 05/26/21 08:59 Last Admin: 04/26/21 08:31 Dose: 100 mg Documented by: Torsemide (Torsemide 20 Mg Tab) 20 mg PO AMHS AMBER Stop: 05/25/21 20:59 Last Admin: 04/26/21 19:35 Dose: 20 mg Documented by:
[2021-04-26] MEDS: DULoxetine HCL 30 MG CAP PO SCH (20:43)
[2021-04-26] MEDS: DULoxetine HCL 60 MG CAP PO SCH (20:43)
[2021-04-26] MEDS ORDERED: bisacodyL 10 MG SUPP PR STA (21:39)
[2021-04-27 07:12] LABS: Hematocrit (blood only) 40.7 % (42-52); Hemoglobin 14.2 g/dL (14.0-18.0); Mean Corpuscular Hemoglobin 34.8 pg (25-34); Mean Corpuscular Hgb Conc 34.9 g/dL (32-36); Mean Corpuscular Volume 99.8 fL (80-100); RDW Coefficient of Variation 13.5 % (11.5-14.5); RDW Standard Deviation 48.4 fL (36.4-46.3); Red Blood Count 4.08 M/uL (4.7-6.1); White Blood Count 4.06 K/uL (4.8-10.8)
[2021-04-27 07:33] LABS: Albumin Level 3.3 gm/dl (3.4-5.0); Bilirubin,Total 1.4 mg/dl (0.2-1.0); Calcium 8.6 mg/dl (8.5-10.1); Creatinine Clr Calc Pharmacy 91.4 ml/min; Est GFR (African American) 106.5 ml/min; Est GFR (Non-African American) 91.9 ml/min; Globulin 3.2 gm/dl (2.5-4.0); Total Protein 6.5 gm/dl (6.0-8.3)
[2021-04-27 07:35] LABS: Basophils # (auto) 0.06 K/uL (0-0.2); Basophils % (auto) 1.5 %; Eosinophils # (auto) 0.19 K/uL (0-0.5); Eosinophils % (auto) 4.7 %; Lymphocytes # (auto) 1.35 K/uL (1.2-3.4); Lymphocytes % (auto) 33.3 %; Mean Platelet Volume 11.6 fL (7.4-10.4); Monocytes # (auto) 0.63 K/uL (0.11-0.59); Monocytes % (auto) 15.5 %; Neutrophils # (auto) 1.83 K/uL (1.4-6.5); Platelet Count 71 K/uL (130-400); Platelet Estimate Decreased (Normal)
[2021-04-27] MEDS: LACTULOSE SYRUP 20 GM/30 ML UDC PO SCH ×4 (07:47→20:17)
[2021-04-27] MEDS: rifAXIMin 550 MG TABLET PO SCH ×2 (07:50→20:19)
[2021-04-27] MEDS: TORSEMIDE 20 MG TAB PO SCH (07:50)
[2021-04-27] MEDS: SPIRONOLACTONE 100 MG TAB PO SCH (07:50)
[2021-04-27] MEDS: FOLIC ACID 1 MG TAB PO SCH (07:51)
[2021-04-27] MEDS: THIAMINE HCL 100 MG TAB PO SCH (07:51)
[2021-04-27] MEDS: POTASSIUM CHLORIDE CRTAB 20 MEQ TABCR PO SCH (07:51)
[2021-04-27] MEDS: PANTOprazole 40 MG TAB PO SCH (07:51)
[2021-04-27] MEDS: CYANOCOBALAMIN (B-12) 100 MCG TABLET PO SCH (07:52)
[2021-04-27] MEDS: ENOXAPARIN INJ 40 MG/0.4 ML SYR SQ SCH (07:52)
[2021-04-27] MEDS: PREGABALIN 50 MG CAP PO SCH ×2 (07:53→20:21)
[2021-04-27] MEDS: ONDANSETRON INJ 2 MG/ML 2 ML VIAL IV PRN (08:06)
--- NOTE | 2021-04-27 11:46 | Gastrointestinal Consultation ---
Date of Consultation April 27, 2021 Assessment & Plan (1) Hepatic encephalopathy: Hepatic Encephalopathy in the setting of ETOH cirrhosis (abstaining since 2014) w GI EV. Suspect that the pt may have been a bit dry as no ascites on US and with recent change in diuretics. Other possible trigger is UTI - will watch for urine culture final results. - Blood cx ordered. - No significant ascites, so SBP not suspected and no paracentesis will be obtained. - Increase lactulose to 20Gm QID. If does not take po, then should be given by enema. - Hold diuretics during episode of hepatic encephalopathy. Can restart prior to discharge. - When more alert, can have a 2gm sodium diet. No plans for endoscopy during this admission. Will continue to follow. Will recheck LFTs, BMP tomorrow. Supervising Physician Co-Signing Physician Notes I performed a history and physical examination of the patient today, including specifically on physical exam - soft abdomen. I have discussed the patient's management with the advanced practitioner. Please refer to the nurse practitioner's note for the documented findings and plan of care. History of Present Illness Reason for Consultation: hepatic encephalopathy Requesting Physician: Mickey Attending Physician: Darshan Arevalo MD History of Present Illness Mr. Andrea Harvey is a 61 yr old male pt of Dr. Garcia with a hx of ETOH cirrhos is (abstaining since 2014), with ascites, (with recent increase and change in diuretics), and with grade I EV on most recent EGD in July 2020. He has also had hepatic encephalopathy in the past and is maintained on Lactulose 10gm 1-3x/day to affect 3BMs/day on diuretics plus Rifaximin 550mg BID. He is also maintained on narcotics and Lyrica for back pain. [facility] Early in April, he had increasing ascites and received IV lasix on 04/06 and 04/21. A few days ago, Furosemide 20mg daily was changed to torsemide 20mg BID. He was brought to the ED by ambulance on 04/25/21 for confusion, which began on 04/24/21. On arrival, CXR normal. Urinalysis was clean but preliminary cx with staph. US w/o significant ascites. The pt is able to tell me his name but otherwise doesn't seem to be oriented. He is awake, but groggy. No nausea/vomiting. Denies abd pain. Denies any recent cough/fevers etc. MELD = 10. Ammonia was 85 on arrival -> 317 today. Allergies Allergy/AdvReac Type Severity Reaction Status Date / Time No Known Allergies Allergy Verified 04/25/21 16:37 Home Medications Medication Instructions Recorded Confirmed Type diclofenac sodium 1 % topical gel 2 g TOPICAL TID PRN 02/29/20 04/25/21 History cyanocobalamin (vitamin B-12) 100 100 mcg PO QAM 04/04/20 04/25/21 History mcg tablet duloxetine 30 mg capsule,delayed 30 mg PO HS 04/04/20 04/25/21 History release rifaximin 550 mg tablet (Xifaxan) 550 mg PO BID 04/04/20 04/25/21 History spironolactone 100 mg tablet 100 mg PO BID 04/04/20 04/25/21 History thiamine mononitrate (vit B1) 100 100 mg PO QAM 04/04/20 04/25/21 History mg tablet fluticasone propionate 50 2 spray INTRANASAL DAILY PRN 04/16/20 04/25/21 History mcg/actuation nasal spray,suspension (Flonase Allergy Relief) ferrous sulfate 325 mg (65 mg 325 mg PO BID 09/19/20 04/25/21 History iron) tablet folic acid 1 mg tablet 1 mg PO DAILY 09/19/20 04/25/21 History oxycodone 10 mg tablet 10 mg PO Q6 PRN 09/19/20 04/25/21 History pantoprazole 40 mg tablet,delayed 40 mg PO DAILY 09/19/20 04/25/21 History release potassium chloride 20 mEq oral 20 meq PO DAILY 09/19/20 04/25/21 History packet lactulose 20 gram/30 mL oral 30 g PO DAILY #1200 ml 09/22/20 04/25/21 Rx solution albuterol sulfate 90 mcg/actuation 2 puff INHALATION Q4 PRN 04/25/21 04/25/21 History aerosol inhaler cyclobenzaprine 10 mg tablet 10 mg PO TID PRN 04/25/21 04/25/21 History duloxetine 60 mg capsule,delayed 60 mg PO HS 04/25/21 04/25/21 History release pregabalin 50 mg capsule 50 mg PO [facility] 04/25/21 04/25/21 History torsemide 20 mg tablet 20 mg PO [facility] 04/25/21 04/25/21 History Patient History Medical History Anxiety Chronic back pain Closed fracture of fifth toe of left foot Depression GERD (gastroesophageal reflux disease) Hearing deficit right ear perf eardrum History of alcohol abuse quit drinking 5 years ago History of anemia History of cirrhosis of liver D/T ALCOHOL History of hepatitis C Hx of ascites Hx of encephalopathy See recent admission 04/2020 [facility] Hx of esophageal varices 2/2 chronic portal HTN Hx of gynecomastia Hx of thrombocytopenia Baseline platelets ~ 50-75k. 2/2 cirrhosis. Hypertension Lumbar disc herniation Lumbar radiculopathy Osteoarthritis of right knee Portal hypertensive gastropathy Portal vein thrombosis hx Sacroiliitis Urinary tract infection hx, recurrent Surgical History Fusion of spine February 2019 History of colonoscopy with polypectomy History of esophagogastroduodenoscopy (EGD) History of lumbar spinal fusion (~05/27/20) Dr. Bauer @ [facility] History of tooth extraction all teeth removed History of total right hip arthroplasty 2018 Hx of decompression of ulnar nerve RIGHT Family History Father Diabetes Other No family history of adverse response to anesthesia Social History Smoking Status: Former smoker Tobacco Type: Cigarettes Cigarettes Per Day: 1ppd x 2 years; Second Hand Exposure: No; Hx Alcohol Use: Yes Alcohol type: beer Alcohol Intake Frequency Comment: history of alcoholism, quit 4+ years ago Hx Substance Use: Yes Last Used Substance: Days (ago) Last Used Substance Other:: 2 months ago Substance Use Type Other:: special occasions Preferred Language: Qatari Communication Ability: Effective Auto Battery Builder Required: No Beliefs That Will Affect Care: None marital status: Single Current Living Situation: Alone Current Living Situation Comment: [facility] How many Children do You have: 3 Other Information That Helps Us Care for You: No Feels Safe at Home: Yes Safety Concerns: Feels Safe At This Time Assistive Devices: Cane and Walker Review of Systems Review of Systems: Unable to obtain ROS from the pt. Physical Exam Constitutional: Groggy. Easily aroused but not fully alert when awake. No tremor. +1 beat asterix. Eyes: PERRL, conjunctivae normal, anicteric sclerae ENMT: external ear and nose normal, oropharynx normal Neck: trachea midline, no thyromegaly Respiratory: normal respiratory effort, lungs clear to auscultation Cardiovascular: RRR, no murmur, no edema Gastrointestinal (Abdomen): normal bowel sounds, soft, nontender, no hepatosplenomegaly Inspection/Auscultation: abdomen normal to inspection and normal bowel sounds; abdomen not distended and no abdominal edema no ascites on exam Skin: no rashes, warm and dry normal turgor no jaundice Neurologic: Speech / Cognition: + abnormal speech (mumbled) Motor/Sensory: + asterixis (1 beat); no tremor Not ambulatory today. Does take po meds, small amts of food with max assistance and coaching. Psychiatric: A+Ox3, euthymic affect Results & Data ([facility]) Vital Signs (Past 12 Hours) Vital Signs Temp Pulse Pulse Resp BP Pulse Ox 04/27/21 10:43 36.8 C 80 16 148/79 H 95 04/27/21 07:44 36.5 C 86 18 120/69 93 04/27/21 07:14 78 04/27/21 03:10 37.0 C 89 16 99/67 L 94 Laboratory Results WBC 4.6, Hb 14, Hct 40, Plts 71, PT 12.6, INR 1.2, Na 135, K 4.0, Cl 105, CO2 25, BUN 18, Cr 0.9, glucose 111. Diagnostic Findings Urine Cx prelim with staph. CXR normal. US no ascites Non contrast head CT (-).
[2021-04-27] MEDS ORDERED: LACTULOSE 200GM/700ML WTR ENEMA PR ONE ×2 (14:15→14:55)
[2021-04-27] MEDS ORDERED: LACTULOSE 200 GM, WATER, STERILE IRRIG 700 ML, BARCODE IDENTIFIER 1 EA PR ONE (14:15)
--- NOTE | 2021-04-27 18:59 | Hospitalist Progress Note ---
Date of Service April 27, 2021 Assessment & Plan (1) Hepatic encephalopathy: Plan: Acute hepatic encephalopathy In setting of ETOH cirrhosis No Ascites on USD, no SBP Blood culture pending Urine culture growing Staphylococcus species Consider antibiotics if needed Appreciate GI input Increase lactulose to 20 gm QID Hold diuretics secondary to hepatic encephalopathy Low-sodium diet Monitor LFTs, BMP Needs follow-up with GI upon discharge Continue rifaximin Avoid narcotics as able (2) Cirrhosis: Plan: chronic, 2/2 alcohol and reports cessation since 2014. Management as above (3) Hx of esophageal varices: Plan: No bleeding issues currently (4) Protein calorie malnutrition: Plan: Monitor (5) DVT prophylaxis: Plan: Lovenox SQ Code Status Full Code Admission and Anticipated Discharge Date Admission Date: April 25, 2021 Subjective Patient is seen and examined at bedside Poor historian secondary to encephalopathy Discussed with GI today States having abdominal discomfort, nausea No bowel movement this morning Offers no other complaints Review of Systems Review of Systems: All systems reviewed & are unremarkable except as noted in Subjective Physical Exam Physical Exam: Physical Exam: Vitals signs as noted above General Appearance:Moderately built and nourished, chronically ill-appearing, no apparent distress Head: normocephalic, Atraumatic Eyes: normal inspection, EOMI Neck: supple, Trachea midline Respiratory/Chest: Normal breath sounds, CTA, No accessory muscle use Cardiovascular: S1, S2, No murmur Abdomen/GI:Soft, Non tender, distended, Bowel sounds present Extremities/Musculoskeletal:normal inspection, no edema Neurologic/Psych:grossly no focal neurological deficits, confused, + asterix Skin: normal color, warm Results & Data Results & [facility] ([facility]) Vital Signs (Past 12 Hours) Vital Signs Temp Pulse Pulse Resp BP Pulse Ox 04/27/21 10:43 36.8 C 80 16 148/79 H 95 04/27/21 07:44 36.5 C 86 18 120/69 93 04/27/21 07:14 78 Laboratory Results Short CBC 04/27/21 Range/Units 06:56 WBC 4.06 L (4.8-10.8) K/uL Hgb 14.2 (14.0-18.0) g/dL Hct 40.7 L (42-52) % Plt Count 71 L (130-400) K/uL BMP 04/27/21 06:56 Sodium 135 L Potassium 4.0 Chloride 105 Carbon Dioxide 25 BUN 18 Creatinine 0.90 Glucose 111 H Calcium 8.6 Liver Function 04/27/21 Range/Units 06:56 Total Bilirubin 1.4 H (0.2-1.0) mg/dl AST 48 H (13-39) U/L ALT 28 (7-52) U/L Alkaline Phosphatase 85 (34-104) U/L Albumin 3.3 L (3.4-5.0) gm/dl
[2021-04-27] MEDS: DULoxetine HCL 30 MG CAP PO SCH (20:18)
[2021-04-27] MEDS: DULoxetine HCL 60 MG CAP PO SCH (20:19)
[2021-04-28 06:32] LABS: Hematocrit (blood only) 43.1 % (42-52); Mean Corpuscular Hemoglobin 34.9 pg (25-34); Mean Corpuscular Hgb Conc 34.8 g/dL (32-36); Mean Corpuscular Volume 100.2 fL (80-100); RDW Coefficient of Variation 13.5 % (11.5-14.5); White Blood Count 4.83 K/uL (4.8-10.8)
[2021-04-28 06:40] LABS: Mean Platelet Volume 10.9 fL (7.4-10.4); Platelet Count 69 K/uL (130-400)
[2021-04-28 07:08] LABS: Albumin Level 3.4 gm/dl (3.4-5.0); BUN Creatinine Ratio 18.6 (10-20); Bilirubin,Total 2.2 mg/dl (0.2-1.0); Calcium 8.9 mg/dl (8.5-10.1); Creatinine Clr Calc Pharmacy 83.8 ml/min; Est GFR (African American) 97.3 ml/min; Est GFR (Non-African American) 83.9 ml/min; Globulin 3.3 gm/dl (2.5-4.0); Potassium 4.3 mmol/L (3.5-5.1); Total Protein 6.7 gm/dl (6.0-8.3)
[2021-04-28] MEDS: THIAMINE HCL 100 MG TAB PO SCH (08:35)
[2021-04-28] MEDS: rifAXIMin 550 MG TABLET PO SCH ×2 (08:35→21:07)
[2021-04-28] MEDS: CYANOCOBALAMIN (B-12) 100 MCG TABLET PO SCH (08:35)
[2021-04-28] MEDS: PANTOprazole 40 MG TAB PO SCH (08:36)
[2021-04-28] MEDS: LACTULOSE SYRUP 20 GM/30 ML UDC PO SCH ×4 (08:36→21:07)
[2021-04-28] MEDS: FOLIC ACID 1 MG TAB PO SCH (08:36)
[2021-04-28] MEDS: ENOXAPARIN INJ 40 MG/0.4 ML SYR SQ SCH (08:36)
[2021-04-28] MEDS: PREGABALIN 50 MG CAP PO SCH ×2 (08:39→21:07)
[2021-04-28] MEDS: POTASSIUM CHLORIDE CRTAB 20 MEQ TABCR PO SCH (08:39)
--- NOTE | 2021-04-28 10:18 | Gastroenterology Progress Note ---
Date of Service April 28, 2021 Assessment & Plan (1) Hepatic encephalopathy: (2) Cirrhosis: Plan: Continue Lactulose QID Continue to hold diuretics until back to baseline mentation (seems much improved but not quite at baseline today - compared to when I have seen him in the office). Would restart diuretics at pre-admission dosing at the time of discharge - or maybe slightly lower dosing. Low salt diet reviewed w patient. Continue OP GI office f/u for cirrhosis. Admission and Anticipated Discharge Date Admission Date: April 25, 2021 Supervising Physician Co-Signing Physician Notes I performed a history and physical examination of the patient today, including specifically on physical exam - soft abdomen. I have discussed the patient's management with the advanced practitioner. Please refer to the nurse practitioner's note for the documented findings and plan of care. Resume diuretics, start lower dose then increase as tolerated. Continue Lactulose. Recall GI if needed. Subjective 61 male ETOH cirrhosis (abstaining), admitted on 03/29 with hepatic encephalopathy. Pt more mentally clear today, though still needs assist to get up from bed to bedside commode etc, still some gargled speech. Able to tell me his full name, where he is and asks me what I'm going to do to "get him out of here." Ammonia improved: 317->84. MELD today = 23. Review of Systems Review of Systems: ROS: Gen: +weakness - improved; no fevers, no weight loss Eyes: No eye redness, or pain, no recent vision changes Resp: No SOB, no cough Cardio: No palpitations/irregular beats, no chest pain GI: No abdominal pain, no nausea/vomiting : Denies pain on urination Skin: No jaundice, itching or new rashes Physical Exam Constitutional: well developed, + ill appearing and cooperative Eyes: PERRL, conjunctivae normal, anicteric sclerae ENMT: external ear and nose normal, oropharynx normal Neck: trachea midline, no thyromegaly Respiratory: normal respiratory effort, lungs clear to auscultation Cardiovascular: RRR, no murmur, no edema Gastrointestinal (Abdomen): normal bowel sounds, soft, nontender, no hepatosplenomegaly no obvious ascites Skin: no rashes, warm and dry normal turgor Neurologic: PERRL, EOMI, accommodation nl, no face palsy, no dysarthria + asterix Psychiatric: Orientation: alert, oriented to person and oriented to place Lymphatic: no cervical or axillary lymphadenopathy Results & Data ([facility]) Vital Signs (Past 12 Hours) Vital Signs Temp Pulse Pulse Resp BP BP Pulse Ox 04/28/21 08:05 36.8 C 82 18 101/63 96 04/28/21 06:15 82 04/28/21 03:35 36.6 C 84 18 114/76 92 04/28/21 00:53 90 04/27/21 23:58 36.6 C 89 18 125/82 94 Laboratory Results WBC 4.83, Hb 15, Hct 43, Plts 69, INR 1.2, Na 137, K 4.3, Cl 106, CO2 26, BUN 18, Cr 0.87, glucose 111 Ammonia 84 T Bili 2.2, AST 51, ALT 31, Alk Phos 75 Diagnostic Findings Abd US on 04/26/21: No abdominal ascites is identified.
[2021-04-28] MEDS: DAPTOmycin 400 MG in SYRINGE 0 ML IV SCH (11:04)
--- NOTE | 2021-04-28 17:19 | Hospitalist Progress Note ---
Date of Service April 28, 2021 Assessment & Plan (1) Hepatic encephalopathy: Plan: Acute hepatic encephalopathy In setting of ETOH cirrhosis No Ascites on USD, no SBP Blood culture pending Urine culture growing Staphylococcus species Consider antibiotics if needed Appreciate GI input Increase lactulose to 20 gm QID Hold diuretics secondary to hepatic encephalopathy Low-sodium diet Monitor LFTs, BMP Needs follow-up with GI upon discharge Continue rifaximin Avoid narcotics as able Mental status slowly improving Plan to resume diuretics tomorrow at lower dose if mental status continues to improve Needs follow-up with GI upon discharge Hypertension Diuretics on hold as above Start amlodipine for now Cirrhosis: chronic, 2/2 alcohol and reports cessation since 2014. Management as above Hx of esophageal varices: No bleeding issues currently Protein calorie malnutrition: DVT prophylaxis: Lovenox SQ Code Status Full Code Admission and Anticipated Discharge Date Admission Date: April 25, 2021 Subjective Patient is seen and examined at bedside Less confused today but no back to baseline Denies any abdominal pain today Less tremor today Denies any chest pain, shortness of breath, dizziness, nausea Review of Systems Review of Systems: All systems reviewed & are unremarkable except as noted in Subjective Physical Exam Physical Exam: Physical Exam: Vitals signs as noted above General Appearance:Moderately built and nourished, chronically ill-appearing, no apparent distress Head: normocephalic, Atraumatic Eyes: normal inspection, EOMI Neck: supple, Trachea midline Respiratory/Chest: Normal breath sounds, CTA, No accessory muscle use Cardiovascular: S1, S2, No murmur Abdomen/GI:Soft, Non tender, distended, Bowel sounds present Extremities/Musculoskeletal:normal inspection, no edema Neurologic/Psych:grossly no focal neurological deficits, + asterix Skin: normal color, warm Results & Data Results & Data ([facility]) Vital Signs (Past 12 Hours) Vital Signs Temp Pulse Pulse Resp BP BP Pulse Ox 04/28/21 15:55 36.7 C 87 18 177/74 H 97 04/28/21 14:15 78 04/28/21 13:14 80 155/79 H 04/28/21 12:20 36.9 C 79 18 184/85 H 96 04/28/21 08:05 36.8 C 82 18 101/63 96 04/28/21 06:15 82 Laboratory Results Short CBC 04/28/21 Range/Units 06:21 WBC 4.83 (4.8-10.8) K/uL Hgb 15.0 (14.0-18.0) g/dL Hct 43.1 (42-52) % Plt Count 69 L (130-400) K/uL BMP 04/28/21 06:21 Sodium 137 Potassium 4.3 Chloride 106 Carbon Dioxide 26 BUN 18 Creatinine 0.97 Glucose 95 Calcium 8.9 Liver Function 04/28/21 Range/Units 06:21 Total Bilirubin 2.2 H D (0.2-1.0) mg/dl AST 51 H (13-39) U/L ALT 31 (7-52) U/L Alkaline Phosphatase 75 (34-104) U/L Albumin 3.4 (3.4-5.0) gm/dl
[2021-04-28] MEDS ORDERED: amLODIPine BESYLATE 5 MG TAB PO ONE (17:30)
[2021-04-28] MEDS: DULoxetine HCL 60 MG CAP PO SCH (21:07)
[2021-04-28] MEDS: DULoxetine HCL 30 MG CAP PO SCH (21:07)
[2021-04-29 06:03] LABS: Hemoglobin 13.4 g/dL (14.0-18.0); Mean Corpuscular Hemoglobin 35.1 pg (25-34); Mean Corpuscular Hgb Conc 35.3 g/dL (32-36); Mean Corpuscular Volume 99.5 fL (80-100); RDW Coefficient of Variation 13.5 % (11.5-14.5); RDW Standard Deviation 48.5 fL (36.4-46.3); Red Blood Count 3.82 M/uL (4.7-6.1); White Blood Count 3.74 K/uL (4.8-10.8)
[2021-04-29 06:20] LABS: Albumin Globulin Ratio 1.1 (0.9-2); Albumin Level 3.2 gm/dl (3.4-5.0); BUN Creatinine Ratio 21.3 (10-20); Bilirubin,Total 1.5 mg/dl (0.2-1.0); Calcium 8.8 mg/dl (8.5-10.1); Creatinine Clr Calc Pharmacy 102.5 ml/min; Est GFR (African American) 111.7 ml/min; Est GFR (Non-African American) 96.4 ml/min; Globulin 2.9 gm/dl (2.5-4.0); Potassium 4.1 mmol/L (3.5-5.1); Total Protein 6.1 gm/dl (6.0-8.3)
[2021-04-29 06:33] LABS: Mean Platelet Volume 11.3 fL (7.4-10.4); Platelet Count 74 K/uL (130-400)
[2021-04-29 06:35] LABS: Platelet Estimate Decreased (Normal)
[2021-04-29] MEDS: THIAMINE HCL 100 MG TAB PO SCH (08:17)
[2021-04-29] MEDS: PANTOprazole 40 MG TAB PO SCH (08:17)
[2021-04-29] MEDS: rifAXIMin 550 MG TABLET PO SCH ×2 (08:17→20:27)
[2021-04-29] MEDS: CYANOCOBALAMIN (B-12) 100 MCG TABLET PO SCH (08:17)
[2021-04-29] MEDS: ENOXAPARIN INJ 40 MG/0.4 ML SYR SQ SCH (08:17)
[2021-04-29] MEDS: LACTULOSE SYRUP 20 GM/30 ML UDC PO SCH ×4 (08:18→20:23)
[2021-04-29] MEDS: PREGABALIN 50 MG CAP PO SCH ×2 (08:21→20:27)
[2021-04-29] MEDS: POTASSIUM CHLORIDE CRTAB 20 MEQ TABCR PO SCH (08:21)
[2021-04-29] MEDS ORDERED: FLUTICASONE PROPIONATE NA SPR 16 GM BTL PRN (08:52)
[2021-04-29] MEDS ORDERED: amLODIPine BESYLATE 5 MG TAB PO SCH (09:00)
[2021-04-29] MEDS ORDERED: CYCLOBENZAPRINE HCL 10 MG TAB PO PRN (09:31)
[2021-04-29] MEDS: SPIRONOLACTONE 25 MG TAB PO SCH ×2 (10:11→17:03)
[2021-04-29] MEDS: DAPTOmycin 400 MG in SYRINGE 0 ML IV SCH (10:12)
[2021-04-29] MEDS: FOLIC ACID 1 MG TAB PO SCH (10:12)
[2021-04-29] MEDS: TORSEMIDE 10 MG TAB PO SCH ×2 (10:12→17:04)
--- NOTE | 2021-04-29 15:53 | Hospitalist Progress Note ---
Date of Service April 29, 2021 Assessment & Plan (1) Hepatic encephalopathy: Plan: Acute hepatic encephalopathy In setting of ETOH cirrhosis No Ascites on USD, no SBP Blood culture pending Urine culture growing Staphylococcus species Consider antibiotics if needed Appreciate GI input Increased lactulose to 20 gm QID Hold diuretics secondary to hepatic encephalopathy Low-sodium diet Monitor LFTs, BMP Needs follow-up with GI upon discharge Continue rifaximin Avoid narcotics as able Resume diuretics at lower dose Mental status continues to improve Hypertension Diuretics resumed at lower dose DC Amlodipine as able, reduce to 2.5 mg for now Cirrhosis: chronic, 2/2 alcohol and reports cessation since 2014. Management as above Hx of esophageal varices: No bleeding issues currently Protein calorie malnutrition: DVT prophylaxis: Lovenox SQ Code Status Full Code Admission and Anticipated Discharge Date Admission Date: April 25, 2021 Subjective Patient is seen and examined at bedside Doing better today Confusion continues to improve but not back to baseline Denies any chest pain, shortness of breath, dizziness, nausea, abd pain Had 2 BMs this morning Review of Systems Review of Systems: All systems reviewed & are unremarkable except as noted in Subjective Physical Exam Physical Exam: Physical Exam: Vitals signs as noted above General Appearance:Moderately built and nourished, chronically ill-appearing, no apparent distress Head: normocephalic, Atraumatic Eyes: normal inspection, EOMI Neck: supple, Trachea midline Respiratory/Chest: Normal breath sounds, CTA, No accessory muscle use Cardiovascular: S1, S2, No murmur Abdomen/GI:Soft, Non tender, distended, Bowel sounds present Extremities/Musculoskeletal:normal inspection, no edema Neurologic/Psych:grossly no focal neurological deficits, + asterix Skin: normal color, warm Results & Data Results & Data ([facility]) Vital Signs (Past 12 Hours) Vital Signs Temp Pulse Pulse Resp BP Pulse Ox 04/29/21 14:20 77 04/29/21 11:45 36.8 C 72 18 131/61 95 04/29/21 08:08 36.9 C 89 16 121/69 96 04/29/21 06:15 78 Laboratory Results Short CBC 04/29/21 Range/Units 05:49 WBC 3.74 L (4.8-10.8) K/uL Hgb 13.4 L (14.0-18.0) g/dL Hct 38.0 L (42-52) % Plt Count 74 L (130-400) K/uL BMP 04/29/21 05:49 Sodium 136 Potassium 4.1 Chloride 106 Carbon Dioxide 24 BUN 17 Creatinine 0.80 Glucose 123 H Calcium 8.8 Liver Function 04/29/21 Range/Units 05:49 Total Bilirubin 1.5 H (0.2-1.0) mg/dl AST 48 H (13-39) U/L ALT 29 (7-52) U/L Alkaline Phosphatase 76 (34-104) U/L Albumin 3.2 L (3.4-5.0) gm/dl
[2021-04-29] MEDS: DULoxetine HCL 60 MG CAP PO SCH (20:26)
[2021-04-29] MEDS: DULoxetine HCL 30 MG CAP PO SCH (20:26)
[2021-04-29] MEDS: FERROUS SULFATE 325 MG TAB PO SCH (20:27)
[2021-04-30 07:05] LABS: Hematocrit (blood only) 38.6 % (42-52); Hemoglobin 13.4 g/dL (14.0-18.0); Mean Corpuscular Hemoglobin 34.4 pg (25-34); Mean Corpuscular Hgb Conc 34.7 g/dL (32-36); Mean Corpuscular Volume 99.2 fL (80-100); RDW Coefficient of Variation 13.4 % (11.5-14.5); RDW Standard Deviation 47.6 fL (36.4-46.3); Red Blood Count 3.89 M/uL (4.7-6.1); White Blood Count 3.27 K/uL (4.8-10.8)
[2021-04-30 07:14] LABS: Mean Platelet Volume 11.1 fL (7.4-10.4); Platelet Count 61 K/uL (130-400)
[2021-04-30 07:32] LABS: Albumin Globulin Ratio 1.1 (0.9-2); Albumin Level 3.1 gm/dl (3.4-5.0); BUN Creatinine Ratio 20.3 (10-20); Bilirubin,Total 1.3 mg/dl (0.2-1.0); Calcium 8.4 mg/dl (8.5-10.1); Creatinine Clr Calc Pharmacy 111.8 ml/min; Est GFR (African American) 115.4 ml/min; Est GFR (Non-African American) 99.6 ml/min; Globulin 2.8 gm/dl (2.5-4.0); Total Protein 5.9 gm/dl (6.0-8.3)
[2021-04-30] MEDS: ONDANSETRON INJ 2 MG/ML 2 ML VIAL IV PRN (07:52)
[2021-04-30] MEDS: DAPTOmycin 400 MG in SYRINGE 0 ML IV SCH (10:50)
[2021-04-30] MEDS: LACTULOSE SYRUP 20 GM/30 ML UDC PO SCH ×4 (11:23→20:30)
[2021-04-30] MEDS: amLODIPine BESYLATE 5 MG TAB PO SCH (14:48)
[2021-04-30] MEDS: CYANOCOBALAMIN (B-12) 100 MCG TABLET PO SCH (14:48)
[2021-04-30] MEDS: FERROUS SULFATE 325 MG TAB PO SCH ×2 (14:49→20:29)
[2021-04-30] MEDS: POTASSIUM CHLORIDE CRTAB 20 MEQ TABCR PO SCH (14:49)
[2021-04-30] MEDS: rifAXIMin 550 MG TABLET PO SCH ×2 (14:49→20:29)
[2021-04-30] MEDS: PREGABALIN 50 MG CAP PO SCH ×2 (14:49→20:29)
[2021-04-30] MEDS: ENOXAPARIN INJ 40 MG/0.4 ML SYR SQ SCH (14:49)
[2021-04-30] MEDS: SPIRONOLACTONE 25 MG TAB PO SCH (14:49)
[2021-04-30] MEDS: FOLIC ACID 1 MG TAB PO SCH (14:49)
[2021-04-30] MEDS: PANTOprazole 40 MG TAB PO SCH (14:49)
[2021-04-30] MEDS: THIAMINE HCL 100 MG TAB PO SCH (14:49)
[2021-04-30] MEDS: TORSEMIDE 10 MG TAB PO SCH (14:50)
[2021-04-30 15:04] LABS: Appearance Urine Clear (Clear); Bilirubin Urine Negative (Negative); Blood Urine Negative (Negative); Color Urine Yellow; Glucose Urine UA Negative (Negative); Ketones Urine Negative (Negative); Leukocyte Esterase Urine Negative (Negative); Nitrite Urine Negative (Negative); Protein Urine Negative (Negative); Specific Gravity Urine 1.013 (1.000-1.030); Urobilinogen Urine Negative (Negative); pH Urine 8.5 (4.5-7.5)
--- NOTE | 2021-04-30 16:19 | Hospitalist Progress Note ---
Date of Service April 30, 2021 Assessment & Plan (1) Hepatic encephalopathy: Plan: Acute hepatic encephalopathy In setting of ETOH cirrhosis No Ascites on USD, no SBP Blood culture: No growth Urine culture growing Staphylococcus species Consider antibiotics if needed Appreciate GI input Increased lactulose to 20 gm QID--Titrate to 3-4 good BMs Hold diuretics secondary to hepatic encephalopathy Low-sodium diet Monitor LFTs, BMP Needs follow-up with GI upon discharge Continue rifaximin Avoid narcotics Reorient frquently Hypertension Diuretics held Continue Amlodipine for now Cirrhosis: chronic, 2/2 alcohol and reports cessation since 2014. Management as above Hx of esophageal varices: No bleeding issues currently Protein calorie malnutrition: DVT prophylaxis: Lovenox SQ Code Status Full Code Admission and Anticipated Discharge Date Admission Date: April 25, 2021 Subjective Patient is seen and examined at bedside More lethargic and confused today but still oriented to person and place. Denies any chest pain, shortness of breath, dizziness, nausea, abd pain Will hold diuretics today Continue lactulose Review of Systems Review of Systems: All systems reviewed & are unremarkable except as noted in Subjective Physical Exam Physical Exam: Physical Exam: Vitals signs as noted above General Appearance:Moderately built and nourished, chronically ill-appearing, no apparent distress Head: normocephalic, Atraumatic Eyes: normal inspection, EOMI Neck: supple, Trachea midline Respiratory/Chest: Normal breath sounds, CTA, No accessory muscle use Cardiovascular: S1, S2, No murmur Abdomen/GI:Soft, Non tender, distended, Bowel sounds present Extremities/Musculoskeletal:normal inspection, no edema Neurologic/Psych:grossly no focal neurological deficits, + asterix Skin: normal color, warm Results & Data Results & Data ([facility]) Vital Signs (Past 12 Hours) Vital Signs Temp Pulse Pulse Resp BP Pulse Ox 04/30/21 15:00 82 04/30/21 14:48 36.8 C 80 19 120/72 95 04/30/21 11:23 36.6 C 77 19 166/85 H 94 04/30/21 08:43 36.9 C 82 17 128/71 93 04/30/21 07:06 80 04/30/21 04:26 36.6 C 72 18 128/71 94 Laboratory Results Short CBC 04/30/21 Range/Units 06:21 WBC 3.27 L (4.8-10.8) K/uL Hgb 13.4 L (14.0-18.0) g/dL Hct 38.6 L (42-52) % Plt Count 61 L (130-400) K/uL BMP 04/30/21 06:21 Sodium 136 Potassium 4.0 Chloride 106 Carbon Dioxide 24 BUN 15 Creatinine 0.74 Glucose 93 Calcium 8.4 L Liver Function 04/30/21 Range/Units 06:21 Total Bilirubin 1.3 H (0.2-1.0) mg/dl AST 49 H (13-39) U/L ALT 29 (7-52) U/L Alkaline Phosphatase 75 (34-104) U/L Albumin 3.1 L (3.4-5.0) gm/dl Urine 04/30/21 Range/Units 11:35 Urine Color Yellow Urine Appearance Clear (Clear) Urine pH 8.5 H (4.5-7.5) Ur Specific [place] 1.013 (1.000-1.030) Urine Protein Negative (Negative) Urine Glucose (UA) Negative (Negative)
[2021-04-30] MEDS: DULoxetine HCL 30 MG CAP PO SCH (20:29)
[2021-04-30] MEDS: DULoxetine HCL 60 MG CAP PO SCH (20:30)
[2021-04-30 20:32] LABS: BUN Creatinine Ratio 17.7 (10-20); Calcium 8.6 mg/dl (8.5-10.1); Creatinine Clr Calc Pharmacy 104.8 ml/min; Est GFR (African American) 112.3 ml/min; Est GFR (Non-African American) 96.9 ml/min; Magnesium 2.1 mg/dl (1.7-2.4)
[2021-05-01 06:14] LABS: Hematocrit (blood only) 38.4 % (42-52); Hemoglobin 13.4 g/dL (14.0-18.0); Mean Corpuscular Hemoglobin 34.8 pg (25-34); Mean Corpuscular Hgb Conc 34.9 g/dL (32-36); Mean Corpuscular Volume 99.7 fL (80-100); RDW Coefficient of Variation 13.6 % (11.5-14.5); RDW Standard Deviation 48.8 fL (36.4-46.3); Red Blood Count 3.85 M/uL (4.7-6.1); White Blood Count 4.07 K/uL (4.8-10.8)
[2021-05-01 06:21] LABS: Mean Platelet Volume 11.3 fL (7.4-10.4); Platelet Count 65 K/uL (130-400)
[2021-05-01 06:38] LABS: Albumin Globulin Ratio 1.2 (0.9-2); Albumin Level 3.2 gm/dl (3.4-5.0); BUN Creatinine Ratio 16.5 (10-20); Bilirubin,Total 1.6 mg/dl (0.2-1.0); Calcium 8.5 mg/dl (8.5-10.1); Est GFR (African American) 112.3 ml/min; Est GFR (Non-African American) 96.9 ml/min; Globulin 2.7 gm/dl (2.5-4.0); Potassium 3.8 mmol/L (3.5-5.1); Total Protein 5.9 gm/dl (6.0-8.3)
[2021-05-01] MEDS: THIAMINE HCL 100 MG TAB PO SCH (08:01)
[2021-05-01] MEDS: FOLIC ACID 1 MG TAB PO SCH (08:01)
[2021-05-01] MEDS: amLODIPine BESYLATE 5 MG TAB PO SCH (08:01)
[2021-05-01] MEDS: PANTOprazole 40 MG TAB PO SCH (08:01)
[2021-05-01] MEDS: FERROUS SULFATE 325 MG TAB PO SCH ×2 (08:02→20:22)
[2021-05-01] MEDS: ENOXAPARIN INJ 40 MG/0.4 ML SYR SQ SCH (08:02)
[2021-05-01] MEDS: CYANOCOBALAMIN (B-12) 100 MCG TABLET PO SCH (08:02)
[2021-05-01] MEDS: rifAXIMin 550 MG TABLET PO SCH ×2 (08:02→20:21)
[2021-05-01] MEDS: LACTULOSE SYRUP 30 GM/45 ML UDP PO SCH ×4 (08:07→20:22)
[2021-05-01] MEDS: POTASSIUM CHLORIDE CRTAB 20 MEQ TABCR PO SCH (08:08)
[2021-05-01] MEDS: PREGABALIN 50 MG CAP PO SCH ×2 (08:08→20:21)
[2021-05-01] MEDS: DAPTOmycin 400 MG in SYRINGE 0 ML IV SCH (10:17)
[2021-05-01] MEDS: NICOTINE 21 MG/24 HR TDSY TD SCH (12:46)
--- NOTE | 2021-05-01 14:59 | Hospitalist Progress Note ---
Date of Service May 01, 2021 Assessment & Plan (1) Hepatic encephalopathy: Plan: Acute hepatic encephalopathy In setting of ETOH cirrhosis No Ascites on USD, no SBP Blood culture: No growth Urine culture growing Staphylococcus species Consider antibiotics if needed Appreciate GI input Increased lactulose to 20 gm QID--Titrate to 3-4 good BMs Hold diuretics secondary to hepatic encephalopathy Low-sodium diet Monitor LFTs, BMP Needs follow-up with GI upon discharge Continue rifaximin Avoid narcotics Mental status better today Continue current management Hypertension Diuretics held Continue Amlodipine for now Cirrhosis: chronic, 2/2 alcohol and reports cessation since 2014. Management as above Tobacco use disorder Nicotine patch Counseled to quit Hx of esophageal varices: No bleeding issues currently Protein calorie malnutrition: DVT prophylaxis: Lovenox SQ Code Status Full Code Admission and Anticipated Discharge Date Admission Date: April 25, 2021 Subjective Patient is seen and examined at bedside Doing better today More alert, awake, oriented today Denies any chest pain, shortness of breath, dizziness, nausea, abd pain Had 1 BM this morning Review of Systems Review of Systems: All systems reviewed & are unremarkable except as noted in Subjective Physical Exam Physical Exam: Physical Exam: Vitals signs as noted above General Appearance:Moderately built and nourished, chronically ill-appearing, no apparent distress Head: normocephalic, Atraumatic Eyes: normal inspection, EOMI Neck: supple, Trachea midline Respiratory/Chest: Normal breath sounds, CTA, No accessory muscle use Cardiovascular: S1, S2, No murmur Abdomen/GI:Soft, Non tender, distended, Bowel sounds present Extremities/Musculoskeletal:normal inspection, no edema Neurologic/Psych:grossly no focal neurological deficits, + asterix Skin: normal color, warm Results & Data Results & Data ([facility]) Vital Signs (Past 12 Hours) Vital Signs Temp Pulse Pulse Resp BP Pulse Ox 05/01/21 11:37 36.5 C 93 H 19 154/79 H 97 05/01/21 07:47 37.1 C 80 20 127/70 95 05/01/21 07:10 73 05/01/21 04:00 36.3 C L 75 22 138/72 95 Laboratory Results Short CBC 05/01/21 Range/Units 05:55 WBC 4.07 L (4.8-10.8) K/uL Hgb 13.4 L (14.0-18.0) g/dL Hct 38.4 L (42-52) % Plt Count 65 L (130-400) K/uL BMP 04/30/21 05/01/21 19:51 05:55 Sodium 135 L 136 Potassium 4.0 3.8 Chloride 107 107 Carbon Dioxide 23 25 BUN 14 13 Creatinine 0.79 0.79 Glucose 96 95 Calcium 8.6 8.5 Liver Function 05/01/21 Range/Units 05:55 Total Bilirubin 1.6 H (0.2-1.0) mg/dl AST 53 H (13-39) U/L ALT 32 (7-52) U/L Alkaline Phosphatase 72 (34-104) U/L Albumin 3.2 L (3.4-5.0) gm/dl Urine 04/30/21 Range/Units 11:35 Urine Color Yellow Urine Appearance Clear (Clear) Urine pH 8.5 H (4.5-7.5) Ur Specific [place] 1.013 (1.000-1.030) Urine Protein Negative (Negative) Urine Glucose (UA) Negative (Negative)
[2021-05-01] MEDS: oxyCODONE HCL IR 5 MG TAB (IMMEDIATE RELEASE) PO PRN (19:15)
[2021-05-01] MEDS ORDERED: CALCIUM CARBONATE 500 MG CHEWABLE TAB PO PRN (20:07)
[2021-05-01] MEDS: DULoxetine HCL 30 MG CAP PO SCH (20:52)
[2021-05-01] MEDS: DULoxetine HCL 60 MG CAP PO SCH (20:52)
[2021-05-02 07:27] LABS: Anion Gap 3 (3-11); BUN Creatinine Ratio 14.5 (10-20); Blood Urea Nitrogen 10 mg/dl (6-23); Calcium 8.2 mg/dl (8.5-10.1); Carbon Dioxide 25 mmol/L (21-32); Chloride 106 mmol/L (98-107); Est GFR (African American) 118.8 ml/min; Est GFR (Non-African American) 102.5 ml/min; Glucose 98 mg/dl (70-99(Fasting)); Sodium 134 mmol/L (136-145)
[2021-05-02] MEDS: NICOTINE 21 MG/24 HR TDSY TD SCH (07:59)
[2021-05-02] MEDS: PREGABALIN 50 MG CAP PO SCH ×2 (08:03→21:03)
[2021-05-02] MEDS: POTASSIUM CHLORIDE CRTAB 20 MEQ TABCR PO SCH (08:03)
[2021-05-02] MEDS: ENOXAPARIN INJ 40 MG/0.4 ML SYR SQ SCH (08:03)
[2021-05-02] MEDS: PANTOprazole 40 MG TAB PO SCH (08:04)
[2021-05-02] MEDS: FOLIC ACID 1 MG TAB PO SCH (08:04)
[2021-05-02] MEDS: CYANOCOBALAMIN (B-12) 100 MCG TABLET PO SCH (08:04)
[2021-05-02] MEDS: LACTULOSE SYRUP 30 GM/45 ML UDP PO SCH ×4 (08:04→20:54)
[2021-05-02] MEDS: THIAMINE HCL 100 MG TAB PO SCH (08:04)
[2021-05-02] MEDS: rifAXIMin 550 MG TABLET PO SCH ×2 (08:04→20:55)
[2021-05-02] MEDS: FERROUS SULFATE 325 MG TAB PO SCH ×2 (08:04→20:53)
[2021-05-02] MEDS: amLODIPine BESYLATE 5 MG TAB PO SCH (08:04)
[2021-05-02] MEDS: DAPTOmycin 400 MG in SYRINGE 0 ML IV SCH (11:27)
--- NOTE | 2021-05-02 16:24 | Hospitalist Progress Note ---
Date of Service May 02, 2021 Assessment & Plan (1) Hepatic encephalopathy: Plan: Acute hepatic encephalopathy In setting of ETOH cirrhosis No Ascites on USD, no SBP Blood culture: No growth Urine culture growing Staphylococcus species Consider antibiotics if needed Appreciate GI input Increased lactulose to 20 gm QID--Titrate to 3-4 good BMs Low-sodium diet Monitor LFTs, BMP Continue rifaximin Avoid narcotics Mental status improved Needs follow-up with GI upon discharge Resume diuretics at reduced dose today as recommended by GI Hypertension Continue Amlodipine for now Diuretics will be resumed today Cirrhosis: chronic, 2/2 alcohol and reports cessation since 2014. Management as above Tobacco use disorder Nicotine patch Counseled to quit Mood Disorder Continue home medications Requested psychiatry evaluation to help with medication adjustment given liver failure Hx of esophageal varices: No bleeding issues currently Protein calorie malnutrition: DVT prophylaxis: Lovenox SQ Code Status Full Code Admission and Anticipated Discharge Date Admission Date: April 25, 2021 Subjective Patient is seen and examined at bedside No new complaints today Eager to get discharged Discussed with GI today Denies any chest pain, shortness of breath, dizziness, nausea, abd pain Mental status improved Had multiple BMs overnight as per patient Review of Systems Review of Systems: All systems reviewed & are unremarkable except as noted in Subjective Physical Exam Physical Exam: Physical Exam: Vitals signs as noted above General Appearance:Moderately built and nourished, chronically ill-appearing, no apparent distress Head: normocephalic, Atraumatic Eyes: normal inspection, EOMI Neck: supple, Trachea midline Respiratory/Chest: Normal breath sounds, CTA, No accessory muscle use Cardiovascular: S1, S2, No murmur Abdomen/GI:Soft, Non tender, distended, Bowel sounds present Extremities/Musculoskeletal:normal inspection, no edema Neurologic/Psych:grossly no focal neurological deficits, + asterix Skin: normal color, warm Results & Data Results & Data ([facility]) Vital Signs (Past 12 Hours) Vital Signs Temp Pulse Pulse Resp BP Pulse Ox 05/02/21 16:00 36.8 C 88 18 128/78 99 05/02/21 15:12 84 05/02/21 12:00 36.6 C 88 18 118/66 98 05/02/21 08:00 36.5 C 76 18 129/62 99 05/02/21 07:00 82 Laboratory Results BMP 05/02/21 06:47 Sodium 134 L Potassium TNP Chloride 106 Carbon Dioxide 25 BUN 10 Creatinine 0.69 Glucose 98 Calcium 8.2 L
[2021-05-02] MEDS: oxyCODONE HCL IR 5 MG TAB (IMMEDIATE RELEASE) PO PRN (20:13)
[2021-05-02] MEDS: DULoxetine HCL 30 MG CAP PO SCH (20:54)
[2021-05-02] MEDS: DULoxetine HCL 60 MG CAP PO SCH (20:54)
--- NOTE | 2021-05-02 22:09 | Communication Note ---
Date of Service: May 02, 2021 attempted to see patient around 6 pm and he was sleeping soundly. attempted to see patient later in evening but was changing rooms. Liaison clarifying diag nostic question around consult. Will reattempt in am.
[2021-05-03 07:29] LABS: BUN Creatinine Ratio 14.8 (10-20); Calcium 8.4 mg/dl (8.5-10.1); Creatinine Clr Calc Pharmacy 136.9 ml/min; Est GFR (African American) 124.9 ml/min; Est GFR (Non-African American) 107.8 ml/min; Potassium 4.1 mmol/L (3.5-5.1)
[2021-05-03] MEDS: LACTULOSE SYRUP 30 GM/45 ML UDP PO SCH ×2 (08:39→13:06)
[2021-05-03] MEDS: ENOXAPARIN INJ 40 MG/0.4 ML SYR SQ SCH (08:39)
[2021-05-03] MEDS: FERROUS SULFATE 325 MG TAB PO SCH (08:40)
[2021-05-03] MEDS: TORSEMIDE 10 MG TAB PO SCH (08:40)
[2021-05-03] MEDS: FOLIC ACID 1 MG TAB PO SCH (08:40)
[2021-05-03] MEDS: CYANOCOBALAMIN (B-12) 100 MCG TABLET PO SCH (08:40)
[2021-05-03] MEDS: amLODIPine BESYLATE 5 MG TAB PO SCH (08:41)
[2021-05-03] MEDS: NICOTINE 21 MG/24 HR TDSY TD SCH (08:45)
[2021-05-03] MEDS: THIAMINE HCL 100 MG TAB PO SCH (08:46)
[2021-05-03] MEDS: PANTOprazole 40 MG TAB PO SCH (08:46)
[2021-05-03] MEDS: SPIRONOLACTONE 25 MG TAB PO SCH (08:46)
[2021-05-03] MEDS: rifAXIMin 550 MG TABLET PO SCH (08:47)
[2021-05-03] MEDS: PREGABALIN 50 MG CAP PO SCH (08:49)
[2021-05-03] MEDS: POTASSIUM CHLORIDE CRTAB 20 MEQ TABCR PO SCH (08:49)
--- NOTE | 2021-05-03 14:52 | Hospitalist Progress Note ---
Date of Service May 03, 2021 Assessment & Plan (1) Hepatic encephalopathy: Plan: Acute hepatic encephalopathy In setting of ETOH cirrhosis No Ascites on USD, no SBP Blood culture: No growth Urine culture growing Staphylococcus species Consider antibiotics if needed Appreciate GI input Increased lactulose --Titrate to 2-3 good BMs Low-sodium diet Monitor LFTs, BMP Continue rifaximin Avoid narcotics Mental status back to baseline Needs follow-up with GI upon discharge Resumed home diuretics Hypertension Continue Amlodipine for now Also on diuretics Cirrhosis: chronic, 2/2 alcohol and reports cessation since 2014. Management as above Tobacco use disorder Nicotine patch Counseled to quit Mood Disorder Continue home medications Hx of esophageal varices: No bleeding issues currently Protein calorie malnutrition: DVT prophylaxis: Lovenox SQ Code Status Full Code Admission and Anticipated Discharge Date Admission Date: April 25, 2021 Subjective Patient is seen and examined at bedside States feeling well Mental status back to her baseline Discussed with patient's brother over the phone Eager to get discharged Denies any chest pain, shortness of breath, dizziness, nausea, abd pain Review of Systems Review of Systems: All systems reviewed & are unremarkable except as noted in Subjective Physical Exam Physical Exam: Physical Exam: Vitals signs as noted above General Appearance:Moderately built and nourished, chronically ill-appearing, no apparent distress Head: normocephalic, Atraumatic Eyes: normal inspection, EOMI Neck: supple, Trachea midline Respiratory/Chest: Normal breath sounds, CTA, No accessory muscle use Cardiovascular: S1, S2, No murmur Abdomen/GI:Soft, Non tender, distended, Bowel sounds present Extremities/Musculoskeletal:normal inspection, no edema Neurologic/Psych:grossly no focal neurological deficits, + asterix Skin: normal color, warm Results & Data Results & Data ([facility]) Vital Signs (Past 12 Hours) Vital Signs Temp Pulse Resp BP Pulse Ox 05/03/21 14:22 36.9 C 76 16 135/72 98 05/03/21 08:13 36.8 C 73 16 133/[address] [facility] 05/03/21 06:52 Sodium 138 Potassium 4.1 Chloride 109 H Carbon Dioxide 24 BUN 9 Creatinine 0.61 Glucose 83 Calcium 8.4 L
--- NOTE | 2021-05-03 15:09 | Discharge Summary ---
Date of Service May 03, 2021 Admission HPI Per Admitting Provider 61 yo M with a history of alcoholic cirrhosis since 2015 who presents with an elevated ammonia level and worsening confusion over the past two days. He has a known h/o esophageal varices, h/o hepatic encephalopathy and h/o ascites. He is taking furosemide, spironolactone, potassium and rifaximin. He lives with roommates and has a "house lady" who runs the home. He reports waking up this morning very confused when he tried to use the TV remote. He also reports some concerns with his breathing at the time, although he only points to his chest and cannot accurately describe what was happening. He is currently not requiring oxygen supplementation and is no working to breathe or demonstrating conversational dyspnea. He denies chest pain. He denies fevers or chills and has no abdominal pain. He cannot tell me where he is or the date today but is oriented to self and knows some of his medical history. He reports having two doses of lactulose this morning and taking two bowel movements. Denies hematem esis and denies any blood per rectum. Takes oxycodone three times daily chronically for low back pain. Admission Exam Per Admitting Provider Physical Exam Physical Exam: CONSTITUTIONAL: vitals as above, generally well-appearing, NAD EYES: normal conjunctivae, no scleral icterus ENT: external ear and nose normal, MMM NECK: trachea midline RESPIRATORY: clear to auscultation bilaterally, no crackles, rales or wheezes, normal respiratory effort CARDIOVASCULAR: regular rate and rhythm, S1 and 2 heard without murmurs, gallops or rubs, no JVD, no peripheral edema CHEST: inspection of chest was normal GASTROINTESTINAL: soft, nontender, no guarding, not distended, no fluid wave. MUSCULOSKELETAL: strength 5/5 throughout, head is normocephalic and atraumatic, neck supple, normal palpation of chest wall without tenderness SKIN: warm and dry NEUROLOGIC: No facial palsy, no dysarthria. Touch, pain and proprioception normal. CN 2-12 grossly intact, no sensory deficit, normal cognition, normal speech, no tremor PSYCHIATRIC: alert cooperative and oriented to person,only. Principal Diagnosis Acute hepatic encephalopathy Hypertension Urinary Tract Infection Discharge Data Allergies Allergy/AdvReac Type Severity Reaction Status Date / Time No Known Allergies Allergy Verified 04/25/21 16:37 Consultations 04/25/21 16:29 ED Decision to Admit Stat 04/27/21 09:49 Consult Gastroenterology Routine 05/02/21 10:39 Consult Psychiatry Routine Ordered Studies 04/25/21 14:56 CT head/brain wo con Stat 04/26/21 US abdomen ltd ascites Routine Hospital Course (1) Hepatic encephalopathy: Acute hepatic encephalopathy In setting of ETOH cirrhosis UTI- POA No Ascites on USD, no SBP Blood culture: No growth Urine culture growing Staphylococcus species Completed Daptomycin course Appreciate GI input Increased lactulose --Titrate to 2-3 good BMs Low-sodium diet Monitor LFTs, BMP Continue rifaximin Avoid narcotics Mental status back to baseline Needs follow-up with GI upon discharge Resumed home diuretics Hypertension Continue Amlodipine for now Also on diuretics Cirrhosis: chronic, 2/2 alcohol and reports cessation since 2014. Management as above Tobacco use disorder Nicotine patch Counseled to quit Mood Disorder Continue home medications Hx of esophageal varices: No bleeding issues currently Protein calorie malnutrition: DVT prophylaxis: Lovenox SQ Code Status Full Code Total Time Total Time Spent Total Time Spent (In Minutes): 47 minutes Discharge Plan Discharge Items Patient Disposition: Home - Home Health Services Reason For Visit: CONFUSION Discharge Diagnosis: Acute hepatic encephalopathy Hypertension Urinary Tract Infection Activity: Per Instructions section Exercise/Sports: Gradually increase as tolerated Non-emergency contact: Primary Care Provider and Scrap Iron Cutter Call non-emergency contact if: you have any medication questions, your symptoms worsen, your pain is concerning for you and you have a fever Follow-up/Referrals: Najma Garcia MD [Primary Care Provider] - Diet: Heart Healthy and Low Sodium (2gm) Addtl Attending Provider Instructions: Follow-up with your primary care physician in 1 week as advised Follow-up with your truck operator in 2 weeks as advised --Titrate Lactulose to have 2-3 good Bowel movements per day as instructed. Seek immediate medical attention if your symptoms reoccur or worsen Please take all medications as instructed on discharge list below. Please call if you have any questions or problems. You can reach a [facility] hospitalist on duty at [facility] 24 hours a day by calling [phone] Pending Studies at Discharge: No Stand-Alone Forms: My [facility], Smoking Cessation Medications and DC Order Prescriptions: Continued cyanocobalamin (vitamin B-12) 100 mcg tablet 100 mcg PO QAM RF: 0 spironolactone 100 mg tablet 100 mg PO BID RF: 0 duloxetine 30 mg capsule,delayed release(DR/EC) 30 mg PO HS RF: 0 Xifaxan 550 mg tablet 550 mg PO BID RF: 0 thiamine mononitrate (vit B1) 100 mg tablet 100 mg PO QAM RF: 0 diclofenac sodium 1 % gel 2 g topical TID PRN (Reason: Pain) RF: 0 fluticasone propionate [Flonase Allergy Relief] 50 mcg/actuation [place],Suspension 2 spray INTRANASAL DAILY PRN (Reason: Allergy Symptoms) RF: 0 folic acid 1 mg tablet 1 mg PO DAILY RF: 0 pantoprazole 40 mg tablet,delayed release (DR/EC) 40 mg PO DAILY RF: 0 potassium chloride 20 mEq packet 20 meq PO DAILY RF: 0 ferrous sulfate 325 mg (65 mg iron) Tablet 325 mg PO BID RF: 0 torsemide 20 mg tablet 20 mg PO AMHS RF: 0 albuterol sulfate 90 mcg/actuation HFA aerosol inhaler 2 puff INHALATION Q4 PRN (Reason: Shortness Of Breath) RF: 0 pregabalin 50 mg capsule 50 mg PO AMHS RF: 0 cyclobenzaprine 10 mg tablet 10 mg PO TID PRN (Reason: Muscle Spasm) RF: 0 duloxetine 60 mg capsule,delayed release(DR/EC) 60 mg PO HS RF: 0 Changed oxycodone 10 mg tablet 5 mg PO Q6 PRN (Reason: Pain, Severe) Qty: 0 RF: 0 lactulose 20 gram/30 mL Solution 30 g PO TID Qty: 1200 RF: 0 Discharge Orders: Discharge Order (Routine); Ordered 05/03/21 Ordered By: Darshan Arevalo Admission Data Admit Date/Time: 04/25/21 17:01 Attending Provider: Darshan Arevalo Admit Provider: Ct Healy Primary Care Provider: Najma Garcia Other Providers: Ct Healy ; Rich Person ; Erma Carrera ; Gloria Carlos ; Allison Ndiaye
[2021-05-03] MEDS: oxyCODONE HCL IR 5 MG TAB (IMMEDIATE RELEASE) PO PRN (15:34)
--- NOTE | 2021-05-03 16:15 | Psychiatric Consultation ---
Date of Consultation May 03, 2021 Psych History History of Present Illness Patient is in the process of being discharged. He has met with the liaison and denied suicidal ideation, MS has cleared, desires to return home with supports. He does have fluctuations in MS that correlate with ammonia levels. He has a basic understanding of his liver problems and sometimes make's comments about life/his health that are rather dramatic yet typical of the gruffness of the vets of his era. Our service has contacted family for collateral to confirm no access to weapons given risk factors (age, health status, etc.). There is no evidence of active psychosis, delirium, or major mood disorder interfering with his decision making. Dr. Arevalo was satisfied with his input and felt more detailed consult unnecessary at this point given no desire for additional services/level of care recs. Re: his Cymbalta, doubt significant contributing factor to AMS as other meds more likely (opiates, etc) but if recurreing concern could try decrease dose but it's mainly for pain indication. Allergies Allergy/AdvReac Type Severity Reaction Status Date / Time No Known Allergies Allergy Verified 04/25/21 16:37 Home Medications Medication Instructions Recorded Confirmed Type diclofenac sodium 1 % topical gel 2 g TOPICAL TID PRN 02/29/20 04/25/21 History cyanocobalamin (vitamin B-12) 100 100 mcg PO QAM 04/04/20 04/25/21 History mcg tablet duloxetine 30 mg capsule,delayed 30 mg PO HS 04/04/20 04/25/21 History release rifaximin 550 mg tablet (Xifaxan) 550 mg PO BID 04/04/20 04/25/21 History spironolactone 100 mg tablet 100 mg PO BID 04/04/20 04/25/21 History thiamine mononitrate (vit B1) 100 100 mg PO QAM 04/04/20 04/25/21 History mg tablet fluticasone propionate 50 2 spray INTRANASAL DAILY PRN 04/16/20 04/25/21 History mcg/actuation nasal spray,suspension (Flonase Allergy Relief) ferrous sulfate 325 mg (65 mg 325 mg PO BID 09/19/20 04/25/21 History iron) tablet folic acid 1 mg tablet 1 mg PO DAILY 09/19/20 04/25/21 History pantoprazole 40 mg tablet,delayed 40 mg PO DAILY 09/19/20 04/25/21 History release potassium chloride 20 mEq oral 20 meq PO DAILY 09/19/20 04/25/21 History packet albuterol sulfate 90 mcg/actuation 2 puff INHALATION Q4 PRN 04/25/21 04/25/21 History aerosol inhaler cyclobenzaprine 10 mg tablet 10 mg PO TID PRN 04/25/21 04/25/21 History duloxetine 60 mg capsule,delayed 60 mg PO HS 04/25/21 04/25/21 History release pregabalin 50 mg capsule 50 mg PO AMHS 04/25/21 04/25/21 History torsemide 20 mg tablet 20 mg PO AMHS 04/25/21 04/25/21 History lactulose 20 gram/30 mL oral 30 g PO TID #1200 ml 05/03/21 04/25/21 Rx solution oxycodone 10 mg tablet 5 mg PO Q6 PRN #0 tab 05/03/21 04/25/21 Rx Personal History Highest Grade Completed: Did Not Graduate High School Beliefs That Will Affect Care: None Patient History Medical History Anxiety Chronic back pain Closed fracture of fifth toe of left foot Depression GERD (gastroesophageal reflux disease) Hearing deficit right ear perf eardrum History of alcohol abuse quit drinking 5 years ago History of anemia History of cirrhosis of liver D/T ALCOHOL History of hepatitis C Hx of ascites Hx of encephalopathy See recent admission 04/2020 [facility] Hx of esophageal varices 2/2 chronic portal HTN Hx of gynecomastia Hx of thrombocytopenia Baseline platelets ~ 50-75k. 2/2 cirrhosis. Hypertension Lumbar disc herniation Lumbar radiculopathy Osteoarthritis of right knee Portal hypertensive gastropathy Portal vein thrombosis hx Sacroiliitis Urinary tract infection hx, recurrent Surgical History Fusion of spine February 2019 History of colonoscopy with polypectomy History of esophagogastroduodenoscopy (EGD) History of lumbar spinal fusion (~05/27/20) Dr. Bauer @ [facility] History of tooth extraction all teeth removed History of total right hip arthroplasty 2018 Sept Hx of decompression of ulnar nerve RIGHT Family History Father Diabetes Other No family history of adverse response to anesthesia Social History Smoking Status: Former smoker Tobacco Type: Cigarettes Cigarettes Per Day: 1ppd x 2 years; Second Hand Exposure: No; Hx Alcohol Use: Yes Alcohol type: beer Alcohol Intake Frequency Comment: history of alcoholism, quit 4+ years ago Hx Substance Use: Yes Last Used Substance: Days (ago) Last Used Substance Other:: 2 months ago Substance Use Type Other:: special occasions Preferred Language: Nigerien Communication Ability: Effective Picking 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 Required: No Beliefs That Will Affect Care: None marital status: Single Current Living Situation: Alone Current Living Situation Comment: [facility] How many Children do You have: 3 Other Information That Helps Us Care for You: No Feels Safe at Home: Yes Safety Concerns: Feels Safe At This Time Assistive Devices: Cane and Glasses Physical Exam Vital Signs (Past 24 Hours): Last Vital Signs Temp 36.9 C 05/03/21 15:16 Pulse 80 05/03/21 15:16 Resp 16 05/03/21 15:16 BP 158/83 H 05/03/21 15:16 Pulse Ox 98 05/03/21 15:16 Results & Data (PSY) Medications Administered Acetaminophen (Acetaminophen 325 Mg Tab) 650 mg PO Q4H PRN PRN Reason: Pain or Fever Stop: 05/25/21 19:46 Last Admin: 04/26/21 10:27 Dose: 650 mg Documented by: [id number] Amlodipine Besylate (Amlodipine Besylate 5 Mg Tab) [facility] [place] Stop: 05/30/21 08:59 Last Admin: 05/03/21 08:41 Dose: 2.5 mg Documented by: [id number] Admin: 05/02/21 08:04 Dose: 2.5 mg Documented by: [id number] Admin: 05/01/21 08:01 Dose: 2.5 mg Documented by: [id number] Admin: 04/30/21 14:48 Dose: Not Given Documented by: [id number] Calcium Carbonate (Calcium Carbonate 500 Mg Chewable Tab) 500 mg PO Q6H PRN PRN Reason: Heartburn Stop: 05/31/21 20:06 Last Admin: 05/01/21 20:22 Dose: 500 mg Documented by: [id number] Cyanocobalamin (Cyanocobalamin (B-12) 100 Mcg Tablet) 100 mcg PO QAM AMBER Stop: 05/26/21 08:59 Last Admin: 05/03/21 08:40 Dose: 100 mcg Documented by: [id number] Admin: 05/02/21 08:04 Dose: 100 mcg Documented by: [id number] Admin: 05/01/21 08:02 Dose: 100 mcg Documented by: [id number] Admin: 04/30/21 14:48 Dose: Not Given Documented by: [id number] Admin: 04/29/21 08:17 Dose: 100 mcg Documented by: [id number] Admin: 04/28/21 08:35 Dose: 100 mcg Documented by: [id number] Admin: 04/27/21 07:52 Dose: 100 mcg Documented by: [id number] Admin: 04/26/21 08:32 Dose: 100 mcg Documented by: [id number] Duloxetine HCl (Duloxetine Hcl 60 Mg Cap) 60 mg PO HS AMBER Stop: 05/25/21 20:59 Last Admin: 05/02/21 20:54 Dose: 60 mg Documented by: [id number] Admin: 05/01/21 20:52 Dose: 60 mg Documented by: [id number] Admin: 04/30/21 20:30 Dose: 60 mg Documented by: [id number] Admin: 04/29/21 20:26 Dose: 60 mg Documented by: [id number] Admin: 04/28/21 21:07 Dose: 60 mg Documented by: [id number] Admin: 04/27/21 20:19 Dose: 60 mg Documented by: [id number] Admin: 04/26/21 20:43 Dose: 60 mg Documented by: [id number] Admin: 04/25/21 21:40 Dose: 60 mg Documented by: [id number] Duloxetine HCl (Duloxetine Hcl 30 Mg Cap) 30 mg PO HS AMBER Stop: 05/25/21 20:59 Last Admin: 05/02/21 20:54 Dose: 30 mg Documented by: [id number] Admin: 05/01/21 20:52 Dose: 30 mg Documented by: [id number] Admin: 04/30/21 20:29 Dose: 30 mg Documented by: [id number] Admin: 04/29/21 20:26 Dose: 30 mg Documented by: [id number] Admin: 04/28/21 21:07 Dose: 30 mg Documented by: [id number] Admin: 04/27/21 20:18 Dose: 30 mg Documented by: [id number] Admin: 04/26/21 20:43 Dose: 30 mg Documented by: [id number] Admin: 04/25/21 21:39 Dose: 30 mg Documented by: [id number] Enoxaparin Sodium (Enoxaparin Inj 40 Mg/0.4 Ml Syr) 40 mg SQ QAM AMBER Stop: 05/26/21 08:59 Last Admin: 05/03/21 08:39 Dose: 40 mg Documented by: [id number] Admin: 05/02/21 08:03 Dose: 40 mg Documented by: [id number] Admin: 05/01/21 08:02 Dose: 40 mg Documented by: [id number] Admin: 04/30/21 14:49 Dose: Not Given Documented by: [id number] Admin: 04/29/21 08:17 Dose: 40 mg Documented by: [id number] Admin: 04/28/21 08:36 Dose: 40 mg Documented by: [id number] Admin: 04/27/21 07:52 Dose: 40 mg Documented by: [id number] Admin: 04/26/21 08:30 Dose: 40 mg Documented by: [id number] Ferrous Sulfate (Ferrous Sulfate 325 Mg Tab) 325 mg PO BID AMBER Stop: 05/29/21 20:59 Last Admin: 05/03/21 08:40 Dose: 325 mg Documented by: [id number] Admin: 05/02/21 20:53 Dose: 325 mg Documented by: [id number] Admin: 05/02/21 08:04 Dose: 325 mg Documented by: [id number] Admin: 05/01/21 20:22 Dose: 325 mg Documented by: [id number] Admin: 05/01/21 08:02 Dose: 325 mg Documented by: [id number] Admin: 04/30/21 20:29 Dose: 325 mg Documented by: [id number] Admin: 04/30/21 14:49 Dose: Not Given Documented by: [id number] Admin: 04/29/21 20:27 Dose: 325 mg Documented by: [id number] Folic Acid (Folic Acid 1 Mg Tab) 1 mg PO DAILY AMBER Stop: 05/26/21 08:59 Last Admin: 05/03/21 08:40 Dose: 1 mg Documented by: [id number] Admin: 05/02/21 08:04 Dose: 1 mg Documented by: [id number] Admin: 05/01/21 08:01 Dose: 1 mg Documented by: [id number] Admin: 04/30/21 14:49 Dose: Not Given Documented by: [id number] Admin: 04/29/21 10:12 Dose: 1 mg Documented by: [id number] Admin: 04/28/21 08:36 Dose: 1 mg Documented by: [id number] Admin: 04/27/21 07:51 Dose: 1 mg Documented by: [id number] Admin: 04/26/21 08:31 Dose: 1 mg Documented by: [id number] Lactulose (Lactulose Syrup 30 Gm/45 Ml Udp) 30 gm PO QID [facility] Stop: 05/31/21 08:59 Last Admin: 05/03/21 13:06 Dose: 30 gm Documented by: [id number] Admin: 05/03/21 08:39 Dose: 30 gm Documented by: [id number] Admin: 05/02/21 20:54 Dose: 30 gm Documented by: [id number] Admin: 05/02/21 18:07 Dose: 30 gm Documented by: [id number] Admin: 05/02/21 14:22 Dose: 30 gm Documented by: [id number] Admin: 05/02/21 08:04 Dose: 30 gm Documented by: [id number] Admin: 05/01/21 20:22 Dose: 30 gm Documented by: [id number] Admin: 05/01/21 17:19 Dose: 30 gm Documented by: [id number] Admin: 05/01/21 13:19 Dose: 30 gm Documented by: [id number] Admin: 05/01/21 08:07 Dose: 30 gm Documented by: [id number] Miscellaneous (Remove Nicoderm Patch) 1 ea N/A DAILY@0859 [facility] Stop: 06/01/21 08:58 Last Admin: 05/03/21 08:38 Dose: 1 ea Documented by: [id number] Admin: 05/02/21 08:00 Dose: 1 ea Documented by: [id number] Nicotine (Nicotine 21 Mg/24 Hr Tdsy) 21 mg TD QAM [facility] Stop: 05/31/21 10:59 Last Admin: 05/03/21 08:45 Dose: 21 mg Documented by: [id number] Admin: 05/02/21 07:59 Dose: 21 mg Documented by: [id number] Admin: 05/01/21 12:46 Dose: 21 mg Documented by: [id number] Ondansetron HCl (Ondansetron Inj 2 Mg/Ml 2 Ml Vial) 4 mg IV Q6H PRN PRN Reason: Nausea Stop: 05/25/21 19:46 Last Admin: 04/30/21 07:52 Dose: 4 mg Documented by: [id number] Admin: 04/27/21 08:06 Dose: 4 mg Documented by: [id number] Oxycodone HCl (Oxycodone Hcl Ir 5 Mg Tab (Immediate Release)) 5 mg PO Q6 PRN PRN Reason: Pain, Severe Stop: 05/09/21 19:46 Last Admin: 05/03/21 15:34 Dose: 5 mg Documented by: [id number] Admin: 05/02/21 20:13 Dose: 5 mg Documented by: [id number] Admin: 05/01/21 19:15 Dose: 5 mg Documented by: [id number] Pantoprazole Sodium (Pantoprazole 40 Mg Tab) 40 mg PO DAILY AM[facility] Stop: 05/26/21 08:59 Last Admin: 05/03/21 08:46 Dose: 40 mg Documented by: [id number] Admin: 05/02/21 08:04 Dose: 40 mg Documented by: [id number] Admin: 05/01/21 08:01 Dose: 40 mg Documented by: [id number] Admin: 04/30/21 14:49 Dose: Not Given Documented by: [id number] Admin: 04/29/21 08:17 Dose: 40 mg Documented by: [id number] Admin: 04/28/21 08:36 Dose: 40 mg Documented by: [id number] Admin: 04/27/21 07:51 Dose: 40 mg Documented by: [id number] Admin: 04/26/21 08:31 Dose: 40 mg Documented by: [id number] Potassium Chloride (Potassium Chloride Crtab 20 Meq Tabcr) 20 meq PO DAILY [facility] Stop: 05/26/21 08:59 Last Admin: 05/03/21 08:49 Dose: 20 meq Documented by: [id number] Admin: 05/02/21 08:03 Dose: 20 meq Documented by: [id number] Admin: 05/01/21 08:08 Dose: 20 meq Documented by: [id number] Admin: 04/30/21 14:49 Dose: Not Given Documented by: [id number] Admin: 04/29/21 08:21 Dose: 20 meq Documented by: [id number] Admin: 04/28/21 08:39 Dose: 20 meq Documented by: [id number] Admin: 04/27/21 07:51 Dose: 20 meq Documented by: [id number] Admin: 04/26/21 08:31 Dose: 20 meq Documented by: [id number] Pregabalin (Pregabalin 50 Mg Cap) 50 mg PO AMHS AMBER Stop: 05/25/21 20:59 Last Admin: 05/03/21 08:49 Dose: 50 mg Documented by: [id number] Admin: 05/02/21 21:03 Dose: 50 mg Documented by: [id number] Admin: 05/02/21 08:03 Dose: 50 mg Documented by: [id number] Admin: 05/01/21 20:21 Dose: 50 mg Documented by: [id number] Admin: 05/01/21 08:08 Dose: 50 mg Documented by: [id number] Admin: 04/30/21 20:29 Dose: 50 mg Documented by: [id number] Admin: 04/30/21 14:49 Dose: Not Given Documented by: [id number] Admin: 04/29/21 20:27 Dose: 50 mg Documented by: [id number] Admin: 04/29/21 08:21 Dose: 50 mg Documented by: [id number] Admin: 04/28/21 21:07 Dose: 50 mg Documented by: [id number] Admin: 04/28/21 08:39 Dose: 50 mg Documented by: [id number] Admin: 04/27/21 20:21 Dose: 50 mg Documented by: [id number] Admin: 04/27/21 07:53 Dose: Not Given Documented by: [id number] Admin: 04/26/21 20:43 Dose: 50 mg Documented by: [id number] Admin: 04/26/21 08:34 Dose: 50 mg Documented by: [id number] Admin: 04/25/21 21:39 Dose: 50 mg Documented by: [id number] Rifaximin (Rifaximin 550 Mg Tablet) 550 mg PO BID AMBER Stop: 05/25/21 20:59 Last Admin: 05/03/21 08:47 Dose: 550 mg Documented by: [id number] Admin: 05/02/21 20:55 Dose: 550 mg Documented by: [id number] Admin: 05/02/21 08:04 Dose: 550 mg Documented by: [id number] Admin: 05/01/21 20:21 Dose: 550 mg Documented by: [id number] Admin: 05/01/21 08:02 Dose: 550 mg Documented by: [id number] Admin: 04/30/21 20:29 Dose: 550 mg Documented by: [id number] Admin: 04/30/21 14:49 Dose: Not Given Documented by: [id number] Admin: 04/29/21 20:27 Dose: 550 mg Documented by: [id number] Admin: 04/29/21 08:17 Dose: 550 mg Documented by: [id number] Admin: 04/28/21 21:07 Dose: 550 mg Documented by: [id number] Admin: 04/28/21 08:35 Dose: 550 mg Documented by: [id number] Admin: 04/27/21 20:19 Dose: 550 mg Documented by: [id number] Admin: 04/27/21 07:50 Dose: 550 mg Documented by: [id number] Admin: 04/26/21 20:44 Dose: 550 mg Documented by: [id number] Admin: 04/26/21 08:31 Dose: 550 mg Documented by: [id number] Admin: 04/25/21 21:40 Dose: 550 mg Documented by: [id number] Spironolactone (Spironolactone 25 Mg Tab) 25 mg PO BID17 AM[facility] Stop: 05/29/21 08:59 Last Admin: 05/03/21 08:46 Dose: 25 mg Documented by: [id number] Admin: 04/30/21 14:49 Dose: Not Given Documented by: [id number] Admin: 04/29/21 17:03 Dose: 25 mg Documented by: [id number] Admin: 04/29/21 10:11 Dose: 25 mg Documented by: [id number] Thiamine HCl (Thiamine Hcl 100 Mg Tab) 100 mg PO QAM AMBER Stop: 05/26/21 08:59 Last Admin: 05/03/21 08:46 Dose: 100 mg Documented by: [id number] Admin: 05/02/21 08:04 Dose: 100 mg Documented by: [id number] Admin: 05/01/21 08:01 Dose: 100 mg Documented by: [id number] Admin: 04/30/21 14:49 Dose: Not Given Documented by: [id number] Admin: 04/29/21 08:17 Dose: 100 mg Documented by: [id number] Admin: 04/28/21 08:35 Dose: 100 mg Documented by: [id number] Admin: 04/27/21 07:51 Dose: 100 mg Documented by: [id number] Admin: 04/26/21 08:31 Dose: 100 mg Documented by: [id number] Torsemide (Torsemide 10 Mg Tab) 10 mg PO BID17 AMBER Stop: 05/29/21 08:59 Last Admin: 05/03/21 08:40 Dose: 10 mg Documented by: [id number] Admin: 04/30/21 14:50 Dose: Not Given Documented by: [id number] Admin: 04/29/21 17:04 Dose: 10 mg Documented by: [id number] Admin: 04/29/21 10:12 Dose: 10 mg Documented by: [id number] Coding Level of Care Code 28602 Inpt Consult Level 1
== END 2021-05-03 17:05 | disposition home health service (06) | DRG 442 ==
LOC: ED 13:30 → 2S 17:01 → SUATTDRO 17:01 → 2S 19:19 → 3N 05-02 21:25

== ENCOUNTER 2021-11-01 15:22 | Inpatient (IN) ==
--- NOTE | 2021-11-01 15:51 | Emergency Department Note ---
Impression & Plan COVID-19, Acute hepatic encephalopathy ED Provider Note Name: FABIANA LARRY Age: 61 Sex: M Arrives Via: Ambulance Informant: Patient, EMS ED Provider: Torsten George MD Chief Complaint: confusion Impression: As Per Impressions above Medical Decision Makin-year-old gentleman arrives for evaluation of worsening confusion and falls. Patient with a long history of liver disease with previous episodes of pneumonia issues. On evaluation patient is a bit tremulous and slightly confused but is oriented and answers questions. He has no headache, neck pain or reports any recent head injuries. He does have some bruising to multiple extremities as we ll as to his left chest where he says he hit when he fell last night. Work-up remarkable for elevated ammonia consistent with hepatic encephalopathy. While he does run quite high to begin with he has a bit higher than his baseline. He unfortunately also tested positive for COVID at this time. Chest x-ray is not overly concerning at the moment and there is no clear evidence of pneumonia/pneumothorax. Labs otherwise are looking okay. Given the symptoms in the setting of elevated ammonia as well as his COVID-19 infection I think he would benefit from hospitalization and monitoring. Hospitalist then to evaluate further as patient is comfortable with this plan. Prior Medical Record and Triage/Nursing Notes reviewed by Me Additional history obtained from chart Differentials:Infection, hypoglycemia, electrolyte abnormalities, overdose, toxicologic, cardiac sources, intracerebral event, neurologic, trauma, as well as other pathologies. Vital Signs: reviewed and remarkable for no significant abnormalities Interventions: Lactulose 30 mg p.o. Labs:Reviewed and remarkable for elevated ammonia, positive COVID-19 Imagin view chest x-ray no acute lobar infiltrates, pneumothorax, hemothorax EKG:Per My Interpretation: Indication Weakness: NSR 75 bpm, qtc 473. No Ectopy. No Ischemia. Compared to EKG 04/25/21, no significant changes. Consults:Dr Adame Hospitalist Plan: Disposition:Hospitalization. Condition: Fair History of Present Illness:The 1-year-old gentleman arrives for evaluation of generalized weakness. Patient notes he has been feeling worsening weakness over the last 12 to 24 hours. He was so bad that he rolled out of bed. Associated with intermittent chest pains, fatigue, unsteadiness. He denies any worsening of his typical back pains. He states he has no fevers, chills, shortness of breath, headache, neck pain. He did not hit his head when he fell. He notes he last landed on his left ribs. He has a bruise from this. No medications prior to arrival. He does take oxycodone several times daily for pain control. He does have a history of a hepatic encephalopathy. He states he does not quite re member what was happening this afternoon. Denies any alcohol use. ROS: See above HPI for pertinent positives & negatives. A total of 10 systems reviewed and were otherwise negative. Past Medical History:See Below Past Surgical History:See Below Family History:See Below Social History:See Below Home Medications:See Below Allergies:nkda Vitals:Blood Pressure: 144/67, Pulse 76, RR 16, T 37C, O2 100% on RA Physical Exam: GENERAL: Patient is confused appearing and in minimal distress. A bit on jaundice side EYES: No scleral icterus, unremarkable pupils. ENT: Mucous membranes moist, no nasal congestion. NECK: No masses appreciated, nomeningismus, trachea is midline. RESPIRATORY: No dyspnea. Clear to auscultation and equal bilaterally. No wheeze, no rhonchi. CHEST: Bruising left anterior chest with TTP, otherwise unremarkable. CARDIOVASCULAR: Regular rate and rhythm.No murmurs, rubs, gallops appreciated. GASTROINTESTINAL: Mild distended, otherwise abdomen soft, non-tender, no peritonitis.Bowel sounds positive.No masses appreciated. BACK: No midline tenderness, no CVA tenderness EXTREMITIES: Normal motion all extremities, no cyanosis, no edema. NEUROLOGIC: Tremulous, awake, though slightly confused but able to answer all questions. No acute motor or sensory deficits, no focal weakness, cranial nerves grossly intact. SKIN: No rash, no jaundice, no diaphoresis. PSYCH: Appropriate GCS: 15 ED Course: Times/Reassessments: Stable, comfortable and no distress Torsten George MD Past Med/Surg History Medical History Anxiety Chronic back pain Closed fracture of fifth toe of left foot Depression GERD (gastroesophageal reflux disease) Hearing deficit right ear perf eardrum History of alcohol abuse quit drinking 5 years ago History of anemia History of cirrhosis of liver D/T ALCOHOL History of hepatitis C Hx of ascites Hx of encephalopathy See recent admission 04/2020 [facility] Hx of esophageal varices 2/2 chronic portal HTN Hx of gynecomastia Hx of thrombocytopenia Baseline platelets ~ 50-75k. 2/2 cirrhosis. Hypertension Lumbar disc herniation Lumbar radiculopathy Osteoarthritis of right knee Portal hypertensive gastropathy Portal vein thrombosis hx Sacroiliitis Urinary tract infection hx, recurrent Surgical History Fusion of spine February 2019 History of colonoscopy with polypectomy History of esophagogastroduodenoscopy (EGD) History of lumbar spinal fusion (~05/27/20) Dr. Bauer @ [facility] History of tooth extraction all teeth removed History of total right hip arthroplasty 2018 Hx of decompression of ulnar nerve RIGHT Family History Father Diabetes Other No family history of adverse response to anesthesia Social History (Updated 11/01/21 @ 18:18 by Fidelia May PA-C) Smoking Status: Former smoker Tobacco Type: Cigarettes Second Hand Exposure: No; Hx Alcohol Use: Yes Alcohol type: beer Alcohol Intake Frequency Comment: history of alcoholism, quit 7 years ago Hx Substance Use: Yes Non-Prescribed Medications: Crack / Cocaine and Marijuana Substance Use Type Other:: special occasions Preferred Language: Azeri Communication Ability: Effective Client Technical Professional Required: No Beliefs That Will Affect Care: None marital status: Single Current Living Situation: Alone How many Children do You have: 3 Feels Safe at Home: Yes Assistive Devices: Cane and Glasses Allergies Allergies Allergy/AdvReac Type Severity Reaction Status Date / Time No Known Allergies Allergy Verified 11/01/21 17:14 Home Meds Home Medications Medication Instructions Recorded Confirmed diclofenac sodium 1 % topical gel 2 g topical TID PRN Pain 02/29/20 11/01/21 cyanocobalamin (vitamin B-12) 100 100 mcg PO QAM 04/04/20 11/01/21 mcg tablet rifaximin 550 mg tablet (Xifaxan) 550 mg PO BID 04/04/20 11/01/21 spironolactone 100 mg tablet 100 mg PO BID 04/04/20 11/01/21 thiamine mononitrate (vit B1) 100 100 mg PO QAM 04/04/20 11/01/21 mg tablet fluticasone propionate 50 2 spray intranasal DAILY PRN 04/16/20 11/01/21 mcg/actuation nasal Allergy Symptoms spray,suspension (Flonase Allergy Relief) folic acid 1 mg tablet 1 mg PO DAILY 09/19/20 11/01/21 pantoprazole 40 mg tablet,delayed 40 mg PO DAILY 09/19/20 11/01/21 release potassium chloride 20 mEq oral 20 meq PO DAILY 09/19/20 11/01/21 packet albuterol sulfate 90 mcg/actuation 2 puff inhalation Q4 PRN Shortness 04/25/21 11/01/21 aerosol inhaler Of Breath duloxetine 60 mg capsule,delayed 60 mg PO HS 04/25/21 11/01/21 release torsemide 20 mg tablet 20 mg PO AMHS 04/25/21 11/01/21 lactulose 20 gram/30 mL oral 20 g PO TID 11/01/21 11/01/21 solution nitrofurantoin 100 mg PO BID 11/01/21 11/01/21 monohydrate/macrocrystals 100 mg capsule oxycodone 5 mg tablet 5 mg PO Q6H PRN Pain 11/01/21 11/01/21 phenazopyridine 200 mg tablet 200 mg PO UD 11/01/21 11/01/21 valacyclovir 1 gram tablet 1,000 mg PO DAILY 11/01/21 11/01/21 (Valtrex) Results & Data (ED) Vital Signs Vital Signs - 24 hr 11/01/21 15:12 11/01/21 15:39 Pulse Rate 76 Pulse Rhythm Regular Pulse Strength Normal Respiratory Rate 18 16 Respiratory Effort / Characteristics Non-Labored Non-Labored Respiratory Depth Normal Normal Respiratory Pattern Regular Regular Blood Pressure 144/67 H Blood Pressure Mean 92 Blood Pressure Position Lying Pulse Oximetry 100 100 Oxygen Delivery Method Room Air Room Air Sepsis Recent Fever Within 48 Hours No Sepsis New/Unexplained Change in Mental Status No Sepsis Action Taken by Nursing No Action Required Laboratory Data Result diagrams: 11/01/21 15:58 11/01/21 15:58 Lab Results 11/01/21 11/01/21 11/01/21 Range/Units 15:58 15:58 15:58 WBC 5.99 (4.8-10.8) K/ul RBC 3.96 L (4.63-6.08) M/uL Hgb 14.1 (14.0-18.0) g/dl Hct 39.8 L (40.1-51.0) % MCV 100.5 H (80.0-100.0) fL MCH 35.6 H (25.0-34.0) pg MCHC 35.4 (32.0-36.0) g/dL RDW Std Deviation 51.2 H (36.4-46.3) fL RDW Coeff of Abhijit 14.0 (11.5-14.5) % Plt Count 94 L (130-400) K/uL MPV 11.5 (9.4-12.4) fL Immature Gran % (Auto) 0.3 % Neut % (Auto) 63.6 % Lymph % (Auto) 19.4 % Garvin % (Auto) 11.7 % Eos % (Auto) 3.8 % Baso % (Auto) 1.2 % Neut # (Auto) 3.81 (1.4-6.5) K/uL Lymph # (Auto) 1.16 L (1.2-3.4) K/uL Garvin # (Auto) 0.70 (0.24-0.82) K/uL Eos # (Auto) 0.23 (0-0.50) K/uL Baso # (Auto) 0.07 (0-0.2) K/uL Immature Gran # (Auto) 0.02 (0.00-0.02) K/uL Polychromasia 1+ Sodium 139 (136-145) mmol/L Potassium 3.8 (3.5-5.1) mmol/L Chloride 106 (98-107) mmol/L Carbon Dioxide 27 (21-32) mmol/L Anion Gap 6 (3-11) BUN 11 (6-23) mg/dl Creatinine 0.83 (0.6-1.4) mg/dl Est Cr Clr Drug Dosing 96.3 ml/min Est GFR ( Amer) 110.1 ml/min Est GFR (Non-Af Amer) 95.0 ml/min BUN/Creatinine Ratio 13.3 (10-20) Glucose 72 (70-99(Fasting)) mg/dl Calcium 9.6 (8.5-10.1) mg/dl Magnesium 2.0 (1.7-2.4) mg/dl Total Bilirubin 1.4 H (0.2-1.0) mg/dl Direct Bilirubin TNP AST 61 H (13-39) U/L ALT 33 (7-52) U/L Alkaline Phosphatase 74 (34-104) U/L Ammonia 118.0 H (18-72) umol/L Total Creatine Kinase 433 H (30-223) U/L Troponin I High Sens 7.6 (0-20) pg/ml Total Protein 7.0 (6.0-8.3) gm/dl Albumin 3.6 (3.4-5.0) gm/dl Lipase 39 (11-82) U/L Urine Color Urine Appearance (Clear) Urine pH (4.5-7.5) Ur Specific [place] (1.000-1.030) Urine Protein (Negative) Urine Glucose (UA) (Negative) Urine Ketones (Negative) Urine Blood (Negative) Urine Nitrite (Negative) Urine Bilirubin (Negative) Urine Urobilinogen (Negative) Ur Leukocyte Esterase (Negative) Urine WBC (Auto) (0-5) /hpf Urine RBC (Auto) (0-4) /hpf U Hyaline Cast (Auto) (0-5) /lpf U Epithel Cells (Auto) (0-5) /lpf Urine Bacteria (Auto) (Negative) Ethyl Alcohol mg/dL (<10.0) mg/dl SARS-CoV-2 (PCR) (Negative) Influenza Type A (PCR) (Neg) Influenza Type B (PCR) (Neg) RSV (RT-PCR) (Neg) 11/01/21 11/01/21 11/01/21 Range/Units 15:58 16:00 16:00 WBC (4.8-10.8) K/ul RBC (4.63-6.08) M/uL Hgb (14.0-18.0) g/dl Hct (40.1-51.0) % MCV (80.0-100.0) fL MCH (25.0-34.0) pg MCHC (32.0-36.0) g/dL RDW Std Deviation (36.4-46.3) fL RDW Coeff of Abhijit (11.5-14.5) % Plt Count (130-400) K/uL MPV (9.4-12.4) fL Immature Gran % (Auto) % Neut % (Auto) % Lymph % (Auto) % Garvin % (Auto) % Eos % (Auto) % Baso % (Auto) % Neut # (Auto) (1.4-6.5) K/uL Lymph # (Auto) (1.2-3.4) K/uL Garvin # (Auto) (0.24-0.82) K/uL Eos # (Auto) (0-0.50) K/uL Baso # (Auto) (0-0.2) K/uL Immature Gran # (Auto) (0.00-0.02) K/uL Polychromasia Sodium (136-145) mmol/L Potassium (3.5-5.1) mmol/L Chloride (98-107) mmol/L Carbon Dioxide (21-32) mmol/L Anion Gap (3-11) BUN (6-23) mg/dl Creatinine (0.6-1.4) mg/dl Est Cr Clr Drug Dosing ml/min Est GFR ( Amer) ml/min Est GFR (Non-Af Amer) ml/min BUN/Creatinine Ratio (10-20) Glucose (70-99(Fasting)) mg/dl Calcium (8.5-10.1) mg/dl Magnesium (1.7-2.4) mg/dl Total Bilirubin (0.2-1.0) mg/dl Direct Bilirubin AST (13-39) U/L ALT (7-52) U/L Alkaline Phosphatase (34-104) U/L Ammonia (18-72) umol/L Total Creatine Kinase (30-223) U/L Troponin I High Sens (0-20) pg/ml Total Protein (6.0-8.3) gm/dl Albumin (3.4-5.0) gm/dl Lipase (11-82) U/L Urine Color Dark Yellow Urine Appearance Clear (Clear) Urine pH 5.5 (4.5-7.5) Ur Specific [place] 1.007 (1.000-1.030) Urine Protein Negative (Negative) Urine Glucose (UA) Negative (Negative) Urine Ketones Negative (Negative) Urine Blood Negative (Negative) Urine Nitrite Positive A (Negative) Urine Bilirubin Negative (Negative) Urine Urobilinogen Negative (Negative) Ur Leukocyte Esterase Trace H (Negative) Urine WBC (Auto) 1-5 (0-5) /hpf Urine RBC (Auto) 0-4 (0-4) /hpf U Hyaline Cast (Auto) 1-5 (0-5) /lpf U Epithel Cells (Auto) 0-5 (0-5) /lpf Urine Bacteria (Auto) Negative (Negative) Ethyl Alcohol mg/dL < 10.0 (<10.0) mg/dl SARS-CoV-2 (PCR) POSITIVE A* (Negative) Influenza Type A (PCR) Negative (Neg) Influenza Type B (PCR) Negative (Neg) RSV (RT-PCR) Negative (Neg) Imaging Data Radiologist's Impression: Chest X-Ray 11/01/21 15:48 XR chest 1V portable CLINICAL HISTORY: chest pains TECHNIQUE: Single frontal radiograph of the chest was obtained. Comparison: Comparison is made to chest radiograph 04/25/2021 FINDINGS: No lines and tubes are seen. The cardiomediastinal silhouette is normal. The lungs are clear. No evidence of pleural effusion or pneumothorax. IMPRESSION: No acute chest disease. ACT 112: Negative or not required by law. Electronically signed by: Arthur Palmer M.D. 11/01/2021 4:[address] 11/01/21 18:02 CT head/brain wo con CLINICAL HISTORY: 61 years-old Male with headache, fall. Acute headache status post fall TECHNIQUE: Multiple axial CT images of the head were obtained without contrast. A dose lowering technique was utilized adhering to the principles of ALARA. CT DOSE: 821.00 mGycm COMPARISON: Head CT 04/25/2021 FINDINGS: No acute intracranial hemorrhage, midline shift, intracranial mass, hydrocephalus, territorial ischemia or abnormal extra-axial collection. Cerebral vascular calcifications. The calvarium is intact. The paranasal sinuses, mastoid air cells, and middle ear cavities are clear. IMPRESSION: No acute intracranial abnormality or calvarial fracture. ACT 112: Negative or not required by law. The above report was generated using voice recognition software. It may contain grammatical, syntax or spelling errors. Electronically signed by: Uriel Herrera M.D. 11/01/2021 7:23 PM Discharge Plan Visit Data Chief Complaint: Illness Stated Complaint: Left sided Chest pain w/ Fall & Bruising ED Provider: Torsten George Discharge Problem: COVID-19, Acute hepatic encephalopathy Forms Stand Alone Forms: My [facility] Prescriptions Prescriptions: No Action cyanocobalamin (vitamin B-12) 100 mcg tablet 100 mcg PO QAM spironolactone 100 mg tablet 100 mg PO BID Xifaxan 550 mg tablet 550 mg PO BID thiamine mononitrate (vit B1) 100 mg tablet 100 mg PO QAM diclofenac sodium 1 % gel 2 g topical TID PRN (Reason: Pain) fluticasone propionate [Flonase Allergy Relief] 50 mcg/actuation [place],Suspension 2 spray INTRANASAL DAILY PRN (Reason: Allergy Symptoms) folic acid 1 mg tablet 1 mg PO DAILY pantoprazole 40 mg tablet,delayed release (DR/EC) 40 mg PO DAILY potassium chloride 20 mEq packet 20 meq PO DAILY torsemide 20 mg tablet 20 mg PO AMHS albuterol sulfate 90 mcg/actuation HFA aerosol inhaler 2 puff INHALATION Q4 PRN (Reason: Shortness Of Breath) duloxetine 60 mg capsule,delayed release(DR/EC) 60 mg PO HS phenazopyridine 200 mg tablet 200 mg PO UD nitrofurantoin monohyd/m-cryst 100 mg capsule 100 mg PO BID Rx Instructions: ordered 11/01/21 take for 7 days lactulose 20 gram/30 mL solution 20 g PO TID Rx Instructions: Titrate to have 2-3 good Bowel Movements per day oxycodone 5 mg tablet 5 mg PO Q6H PRN (Reason: Pain) valacyclovir [Valtrex] 1 gram Tablet 1,000 mg PO DAILY Referrals Referrals: Najma Garcia MD [Primary Care Provider] -
--- NOTE | 2021-11-01 16:11 | XRay Report ---
XR chest 1V portable CLINICAL HISTORY: chest pains TECHNIQUE: Single frontal radiograph of the chest was obtained. Comparison: Comparison is made to chest radiograph 04/25/2021 FINDINGS: No lines and tubes are seen. The cardiomediastinal silhouette is normal. The lungs are clear. No evid ence of pleural effusion or pneumothorax. IMPRESSION: No acute chest disease. ACT 112: Negative or not required by law. Electronically signed by: Arthur Palmer M.D. 11/01/2021 4:10 PM
[2021-11-01 16:33] LABS: Bacteria Urine Automated Negative (Negative); Bilirubin Urine Negative (Negative); Blood Urine Negative (Negative); Color Urine Dark Yellow; Epithelial Cell Urine Auto 0-5 /lpf (0-5); Glucose Urine UA Negative (Negative); Ketones Urine Negative (Negative); Leukocyte Esterase Urine Trace (Negative); Nitrite Urine Positive (Negative); Protein Urine Negative (Negative); RBC Urine Automated 0-4 /hpf (0-4); Specific Gravity Urine 1.007 (1.000-1.030); Urobilinogen Urine Negative (Negative); pH Urine 5.5 (4.5-7.5)
[2021-11-01 16:37] LABS: Appearance Urine Clear (Clear)
[2021-11-01 16:54] LABS: Alanine Aminotransferase 33 U/L (7-52); Albumin Level 3.6 gm/dl (3.4-5.0); Alkaline Phosphatase 74 U/L (34-104); Anion Gap 6 (3-11); Aspartate Aminotransferase 61 U/L (13-39); BUN Creatinine Ratio 13.3 (10-20); Bilirubin,Total 1.4 mg/dl (0.2-1.0); Blood Urea Nitrogen 11 mg/dl (6-23); Calcium 9.6 mg/dl (8.5-10.1); Carbon Dioxide 27 mmol/L (21-32); Chloride 106 mmol/L (98-107); Creatine Kinase 433 U/L (30-223); Creatinine Clr Calc Pharmacy 96.3 ml/min; Est GFR (African American) 110.1 ml/min; Glucose 72 mg/dl (70-99(Fasting)); Lipase 39 U/L (11-82); Potassium 3.8 mmol/L (3.5-5.1); Sodium 139 mmol/L (136-145); Troponin I High Sensitivity 7.6 pg/ml (0-20)
[2021-11-01 17:16] LABS: Hematocrit (blood only) 39.8 % (40.1-51.0); Hemoglobin 14.1 g/dl (14.0-18.0); Mean Corpuscular Hemoglobin 35.6 pg (25.0-34.0); Mean Corpuscular Hgb Conc 35.4 g/dL (32.0-36.0); Mean Corpuscular Volume 100.5 fL (80.0-100.0); Mean Platelet Volume 11.5 fL (9.4-12.4); Platelet Count 94 K/uL (130-400); RDW Standard Deviation 51.2 fL (36.4-46.3); Red Blood Count 3.96 M/uL (4.63-6.08); White Blood Count 5.99 K/ul (4.8-10.8)
[2021-11-01 17:28] LABS: Basophils # (auto) 0.07 K/uL (0-0.2); Basophils % (auto) 1.2 %; Eosinophils # (auto) 0.23 K/uL (0-0.50); Eosinophils % (auto) 3.8 %; Immature Granulocytes # (auto) 0.02 K/uL (0.00-0.02); Immature Granulocytes % (auto) 0.3 %; Lymphocytes # (auto) 1.16 K/uL (1.2-3.4); Lymphocytes % (auto) 19.4 %; Monocytes % (auto) 11.7 %; Neutrophils # (auto) 3.81 K/uL (1.4-6.5); Neutrophils % (auto) 63.6 %; Polychromasia 1+
[2021-11-01] MEDS ORDERED: LACTULOSE SYRUP 30 GM/45 ML UDP PO STA (17:33)
[2021-11-01] MEDS ORDERED: SODIUM CHLORIDE 0.9% 500 ML IV ONE (17:34)
[2021-11-01 17:50] LABS: Influenza A virus by PCR Negative (Neg); Influenza B virus by PCR Negative (Neg); RSV by PCR Negative (Neg)
[2021-11-01 18:11] LABS: SARS CoV2 RNA(COVID-19) InHosp POSITIVE (Negative)
--- NOTE | 2021-11-01 18:20 | History & Physical Report ---
Date of Service November 01, 2021 Assessment & Plan (1) Hepatic encephalopathy: (2) Acute UTI: (3) Thrombocytopenia: (4) Cirrhosis: (5) SARS-CoV-2 positive: Plan This is a 61-year-old male who has significant past medical history of Alcoholic cirrhosis, esophageal varices, chronic thrombocytopenia in setting of cirrhosis, HLD, GERD, poor peripheral neuropathy, chronic back pain, history of alcohol abuse, history of cocaine and marijuana use who presents to ED due to not fee ling well and increased weakness for the past 12 to 24 hours. Acute hepatic encephalopathy In setting of ETOH cirrhosis increased OP lactulose to 30g TID, titrate to 2-3 Good BMS daily monitor NH3 level Consult GI Low-sodium diet Monitor LFTs, BMP Continue rifaximin, aldactone hold torsemide for now Mental status A and O x 2, having freq falls, unsteady gait Cirrhosis: chronic, 2/2 alcohol and reports cessation since 2014. Management as above other than encephalopathy, compensated from a volume stand point no abd pain, benign exam Dehydration Mild Rhabdomyolysis, likely 2/2 to falls CK 433 gentle hydration repeat in a.m. Acute UTI ( POA ) OP urine cx >100k Enterococus on 10/19 repeat urine on 10/31 still positive, todays urine appears improved, continue macrobid til 11/08, prn pyridium SARS COV2 + pt w/o respiratory sx will place on isolation monitor Generalized weakness Falls 2/2 encephalopathy PT/OT Hx of esophageal varices: No bleeding issues currently continue PPI DVT prophylaxis: SCDS for now, monitor plt ct consider chemical prophylaxis if stays stable and CT head negative Code Status Full Code PCP: Radha, follows [facility] at home Dispo: med tele, PT/oT consulted Pt was seen and examined in collaboration with Dr. Adame, please see addendum History of Present Illness Chief Complaint: Not feeling well, increased weakness x 12-24 hours. Primary Care Provider: Najma Garcia MD This is a 61-year-old male who has significant past medical history of Alcoholic cirrhosis, esophageal varices, chronic thrombocytopenia in setting of cirrhosis, HLD, GERD, poor peripheral neuropathy, chronic back pain, history of alcohol abuse, history of cocaine and marijuana use who presents to ED due to not feeling well and increased weakness for the past 12 to 24 hours. He states last night he rolled out of bed and fell on the floor. He denies hitting his head but he does complain of a mild right-sided headache. He denies any vision or hearing changes. He also admits to falling approximately 3-4 additional times over the past week. He denies any acute injury. He generally feels weak and unsteady. He does live at home by himself and does have [facility] at home coming in to see him. He admits to being compliant with his medications, including lactulose. States he has been having about 1-2 BM a day. Last BM was this morning and was formed. He denies any f/c/s, chest pain, sob, cough, uri sx, n/v/d, abd pain. He is being treated for a UTI as outpt with macrobid. He is on his second round of antibiotics. He complains of dysuria but feels it is improving. He denies hematuria, hematochezia, hematemesis, or increased urinary urgent. In ED pt remained hemodynamically stable. Lab work notable for hyperammonemia with ammonia level of 118 and CK of 433, AST 61, total bilirubin 1.4. His urinalysis was positive for nitrites but negative for bacteria. Incidentally he also tested positive for SARS-CoV-2. Allergies Allergy/AdvReac Type Severity Reaction Status Date / Time No Known Allergies Allergy Verified 11/01/21 17:14 Home Medications Medication Instructions Recorded Confirmed Type diclofenac sodium 1 % topical gel 2 g topical TID PRN Pain 02/29/20 11/01/21 History cyanocobalamin (vitamin B-12) 100 100 mcg PO QAM 04/04/20 11/01/21 History mcg tablet rifaximin 550 mg tablet (Xifaxan) 550 mg PO BID 04/04/20 11/01/21 History spironolactone 100 mg tablet 100 mg PO BID 04/04/20 11/01/21 History thiamine mononitrate (vit B1) 100 100 mg PO QAM 04/04/20 11/01/21 History mg tablet fluticasone propionate 50 2 spray intranasal DAILY PRN 04/16/20 11/01/21 History mcg/actuation nasal Allergy Symptoms spray,suspension (Flonase Allergy Relief) folic acid 1 mg tablet 1 mg PO DAILY 09/19/20 11/01/21 History pantoprazole 40 mg tablet,delayed 40 mg PO DAILY 09/19/20 11/01/21 History release potassium chloride 20 mEq oral 20 meq PO DAILY 09/19/20 11/01/21 History packet albuterol sulfate 90 mcg/actuation 2 puff inhalation Q4 PRN Shortness 04/25/21 11/01/21 History aerosol inhaler Of Breath duloxetine 60 mg capsule,delayed 60 mg PO HS 04/25/21 11/01/21 History release torsemide 20 mg tablet 20 mg PO AMHS 04/25/21 11/01/21 History lactulose 20 gram/30 mL oral 20 g PO TID 11/01/21 11/01/21 History solution nitrofurantoin 100 mg PO BID 11/01/21 11/01/21 History monohydrate/macrocrystals 100 mg capsule oxycodone 5 mg tablet 5 mg PO Q6H PRN Pain 11/01/21 11/01/21 History phenazopyridine 200 mg tablet 200 mg PO UD 11/01/21 11/01/21 History valacyclovir 1 gram tablet 1,000 mg PO DAILY 11/01/21 11/01/21 History (Valtrex) Past Med/Surg History Medical History Anxiety Chronic back pain Closed fracture of fifth toe of left foot Depression GERD (gastroesophageal reflux disease) Hearing deficit right ear perf eardrum History of alcohol abuse quit drinking 5 years ago History of anemia History of cirrhosis of liver D/T ALCOHOL History of hepatitis C Hx of ascites Hx of encephalopathy See recent admission 04/2020 [facility] Hx of esophageal varices 2/2 chronic portal HTN Hx of gynecomastia Hx of thrombocytopenia Baseline platelets ~ 50-75k. 2/2 cirrhosis. Hypertension Lumbar disc herniation Lumbar radiculopathy Osteoarthritis of right knee Portal hypertensive gastropathy Portal vein thrombosis hx Sacroiliitis Urinary tract infection hx, recurrent Surgical History Fusion of spine February 2019 History of colonoscopy with polypectomy History of esophagogastroduodenoscopy (EGD) History of lumbar spinal fusion (~05/27/20) Dr. 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 Required: No Beliefs That Will Affect Care: None marital status: / Current Living Situation: Alone How many Children do You have: 3 Other Information That Helps Us Care for You: No Feels Safe at Home: Yes Safety Concerns: Feels Safe At This Time Assistive Devices: Cane and Other Assistive Devices Comment: shower chair Review of Systems Review of Systems: All systems reviewed & are unremarkable except as noted in HPI & below Physical Exam Physical Exam: Constitutional: Chronic ill appearing, + Tattoos, vitals as above, NAD, sitting up in bed, pleasant, conversing easily Head: Normocephalic, Atraumatic Eyes: PERRL, conjunctivae normal, anicteric sclerae ENMT: external ear and nose normal, oropharynx normal Neck: trachea midline, no thyromegaly normal visual inspection Respiratory: normal respiratory effort, lungs clear to auscultation, no wheeze, rales, rhonchi. Normal insp/exp effort, no accessory muscle use Cardiovascular: RRR, no murmur, no edema Vessels: no JVD or carotid bruit Chest: normal inspection of chest + Lacw ecchymosis Abdomen: normal bowel sounds, soft, nontender, no hepatosplenomegaly Musculoskeletal: no cyanosis or clubbing, AROM x 4 Skin: no rashes, warm and dry normal turgor Neurologic:slowed speech PERRL, EOMI, accommodation nl, no face palsy, no dysarthria CN's II-XI intact bilaterally and moves all extremities Psychiatric: A+Ox2 person/place but not time, he is oriented to president and season, euthymic affect Lymphatic: no cervical or axillary lymphadenopathy : deferred Results & Data Results & Data ([facility]) Vital Signs (Past 12 Hours) Vital Signs Pulse Resp BP Pulse Ox O2 Del Method 11/01/21 15:39 16 100 Room Air 11/01/21 15:12 76 18 144/67 H 100 Room Air Diagnostic Findings Chest X-Ray 11/01/21 15:48 XR chest 1V portable CLINICAL HISTORY: chest pains TECHNIQUE: Single frontal radiograph of the chest was obtained. Comparison: Comparison is made to chest radiograph 04/25/2021 FINDINGS: No lines and tubes are seen. The cardiomediastinal silhouette is normal. The lungs are clear. No evidence of pleural effusion or pneumothorax. IMPRESSION: No acute chest disease. ACT 112: Negative or not required by law. Electronically signed by: Arthur Palmer M.D. 11/01/2021 4:10 PM ECG Rate (beats per minute): 75 Rhythm: normal sinus COVID-19 Results Results COVID-19 Adm Lab Results: RBC 3.54 M/uL (4.63-6.08) L 11/03/21 WBC 3.65 K/ul (4.8-10.8) L 11/03/21 Hgb 12.5 g/dl (14.0-18.0) L 11/03/21 Hct 35.4 % (40.1-51.0) L 11/03/21 Plt Count 63 K/uL (130-400) L 11/03/21 Neutrophils (%) (Auto) 57.3 % 11/03/21 Lymphocytes (%) (Auto) 22.7 % 11/03/21 Monocytes # (Auto) 0.43 K/uL (0.24-0.82) 11/03/21 Eosinophils # (Auto) 0.24 K/uL (0-0.50) 11/03/21 Immature Granulocyte % (Auto) 0.0 % 11/03/21 Neutrophils # (Auto) 2.09 K/uL (1.4-6.5) 11/03/21 Lymphocytes # (Auto) 0.83 K/uL (1.2-3.4) L 11/03/21 Monocytes # (Auto) 0.43 K/uL (0.24-0.82) 11/03/21 Eosinophils # (Auto) 0.24 K/uL (0-0.50) 11/03/21 Basophils # (Auto) 0.06 K/uL (0-0.2) 11/03/21 Immature Granulocyte # (Auto) 0.00 K/uL (0.00-0.02) 2 Red Blood Cell Morphology Unremarkable 11/02/21 Polychromasia 1+ 11/01/21 Na 134 mmol/L (136-145) L 11/03/21 K 3.8 mmol/L (3.5-5.1) 11/03/21 Cl 106 mmol/L (98-107) 11/03/21 CO2 23 mmol/L (21-32) 11/03/21 Anion Gap 5 (3-11) 11/03/21 BUN 9 mg/dl (6-23) 11/03/21 Creatinine 0.67 mg/dl (0.6-1.4) 11/03/21 BUN/Creatinine Ratio 13.4 (10-20) 11/03/21 Glucose Level 140 mg/dl (70-99(Fasting)) H 11/03/21 Ca 8.4 mg/dl (8.5-10.1) L 11/03/21 Total Bilirubin 1.2 mg/dl (0.2-1.0) H 11/02/21 Direct Bilirubin TNP 11/01/21 AST/SGOT 45 U/L (13-39) H 11/02/21 ALT/SGPT 26 U/L (7-52) 11/02/21 Alkaline Phosphatase 69 U/L (34-104) 11/02/21 Total Protein 5.6 gm/dl (6.0-8.3) L 11/02/21 Albumin 3.0 gm/dl (3.4-5.0) L 11/02/21 Globulin 2.6 gm/dl (2.5-4.0) 11/02/21 Albumin/Globulin Ratio 1.2 (0.9-2) 11/02/21 Total CK 256 U/L (30-223) H 11/02/21 INR 1.2 (0.9-1.1) H 11/02/21 COVID-19 PCR POSITIVE (Negative) A* 11/01/21 Influenza Virus Type A (PCR) Negative (Neg) 11/01/21 Influenza Virus Type B (PCR) Negative (Neg) 11/01/21 Chest X-Ray 11/01/21 Code Status & VTE Plan Code Status Full Code VTE Prophylaxis Plan VTE Prophylaxis will be ordered: Yes Supervising Physician Co-Signing Physician Notes Pt was seen and examined. Agreed with Fidelia SÁNCHEZ exam, assessment and plan. 61-year-old male with past medical history of Alcoholic cirrhosis, esophageal varices, chronic thrombocytopenia, HLD, GERD, poor peripheral neuropathy, chronic back pain, history of alcohol abuse, history of cocaine and marijuana use who presents to ED for weakness and not feeling well. Pt said that he fell of bed this morning. He said that he has been falling for the last few days because he feels weak and unsteady. He said that he is being treating currently for UTI and he is on his 2nd course of antibiotic with Macrobid now. Denies any chest pain, palpitation, dizziness and SOB. Lab on admission with ammonia level of 118, CK of 433, AST 61, total bilirubin 1.4, +covid 19. CT head showed no acute intracranial abnormality. CXR showed no acute finding. Lactose increased to 30mg. Blood and urine cx collected in the ER. He was incidentally tested positive for covid 19, but he denies any symptoms of URI such as fever, cough. He does not meed the criteria for treatment with steroid and remdesivir since he is saturating well on RA. Will hold on abx now. GI consulted. PT/OT eval. Fall precaution. continue monitor closely. MD Deep
--- NOTE | 2021-11-01 19:24 | CT Scan Report ---
CT head/brain wo con CLINICAL HISTORY: 61 years-old Male with headache, fall. Acute headache status post fall TECHNIQUE: Multiple axial CT images of the head were obtained without contrast. A dose lowering tech nique was utilized adhering to the principles of ALARA. CT DOSE: 821.00 mGycm COMPARISON: Head CT 04/25/2021 FINDINGS: No acute intracranial hemorrhage, midline shift, intracranial mass, hydrocephalus, territorial ischem ia or abnormal extra-axial collection. Cerebral vascular calcifications. The calvarium is intact. The paranasal sinuses, mastoid air cells, and middle ear cavities are clear . IMPRESSION: No acute intracranial abnormality or calvarial fracture. ACT 112: Negative or not required by law. The above report was generated using voice recognition software. It may contain grammatical, syntax o r spelling errors. Electronically signed by: Uriel Herrera M.D. 11/01/2021 7:23 PM
[2021-11-01] MEDS ORDERED: PROMETHAZINE 12.5 MG/50.5 ML BAG IV STA (20:50)
[2021-11-01] MEDS ORDERED: PHENAZOPYRIDINE HCL 200 MG TAB PO PRN (22:19)
[2021-11-01] MEDS ORDERED: ALBUTEROL HFA 8 GM INHALER INH PRN (22:19)
[2021-11-01] MEDS ORDERED: ACETAMINOPHEN 325 MG TAB PO PRN (22:19)
[2021-11-01] MEDS ORDERED: DICLOFENAC SOD 1% GEL 100 GM TUBE EXT PRN (22:19)
[2021-11-01] MEDS ORDERED: SODIUM CHLORIDE 0.9% 1000ML 1,000 ML IV SCH (22:19)
[2021-11-01] MEDS ORDERED: SPIRONOLACTONE 100 MG TAB PO SCH (22:19)
[2021-11-01] MEDS ORDERED: FLUTICASONE PROPIONATE NA SPR 16 GM BTL PRN (22:19)
[2021-11-01] MEDS ORDERED: LACTULOSE SYRUP 20 GM/30 ML UDC PO SCH (22:19)
[2021-11-01] MEDS ORDERED: oxyCODONE HCL IR 5 MG TAB (IMMEDIATE RELEASE) PO PRN (22:19)
[2021-11-01] MEDS ORDERED: ALUMINUM/MAGNESIUM SUSP 30 ML UDC PO PRN (22:19)
[2021-11-01] MEDS: DULoxetine HCL 60 MG CAP PO SCH (22:55)
[2021-11-01] MEDS: rifAXIMin 550 MG TABLET PO SCH (22:55)
[2021-11-01] MEDS: NITROFURANTOIN MONOHYDRATE 100 MG CAP PO SCH (23:47)
[2021-11-02] MEDS: ONDANSETRON INJ 2 MG/ML 2 ML VIAL IV PRN ×2 (01:07→22:49)
--- NOTE | 2021-11-02 06:24 | Electrocardiogram Report ---
Test Reason : Blood Pressure : / mmHG Vent. Rate : 075 BPM Atrial Rate : 075 BPM P-R Int : 166 ms QRS Dur : 092 ms QT Int : 424 ms P-R-T Axes : 030 027 040 degrees QTc Int : 473 ms Normal sinus rhythm Low voltage QRS Borderline ECG When compared with ECG of 25-APR-2021 13:41, No significant change was found Confirmed by Ney Wright ([id number]) on 11/02/2021 6:23:37 AM Referred By: Confirmed By:Ney Wright
[2021-11-02 08:36] LABS: Albumin Globulin Ratio 1.2 (0.9-2); BUN Creatinine Ratio 15.7 (10-20); Bilirubin,Total 1.2 mg/dl (0.2-1.0); Calcium 8.6 mg/dl (8.5-10.1); Creatinine Clr Calc Pharmacy 113.3 ml/min; Est GFR (African American) 118.1 ml/min; Est GFR (Non-African American) 101.9 ml/min; Globulin 2.6 gm/dl (2.5-4.0); Potassium 3.6 mmol/L (3.5-5.1); Total Protein 5.6 gm/dl (6.0-8.3)
[2021-11-02 08:41] LABS: Basophils # (auto) 0.04 K/uL (0-0.2); Basophils % (auto) 1.1 %; Eosinophils # (auto) 0.17 K/uL (0-0.50); Eosinophils % (auto) 4.7 %; Hematocrit (blood only) 34.3 % (40.1-51.0); Hemoglobin 12.1 g/dl (14.0-18.0); Lymphocytes # (auto) 1.03 K/uL (1.2-3.4); Lymphocytes % (auto) 28.5 %; Mean Corpuscular Hemoglobin 35.3 pg (25.0-34.0); Mean Corpuscular Hgb Conc 35.3 g/dL (32.0-36.0); Monocytes # (auto) 0.43 K/uL (0.24-0.82); Monocytes % (auto) 11.9 %; Neutrophils # (auto) 1.95 K/uL (1.4-6.5); Neutrophils % (auto) 53.8 %; Platelet Count 68 K/uL (130-400); RBC Morphology Unremarkable; RDW Coefficient of Variation 13.7 % (11.5-14.5); RDW Standard Deviation 50.3 fL (36.4-46.3); Red Blood Count 3.43 M/uL (4.63-6.08); White Blood Count 3.62 K/ul (4.8-10.8)
[2021-11-02] MEDS: POTASSIUM CHLORIDE PWD 20 MEQ PACK PO SCH (09:19)
[2021-11-02] MEDS: FOLIC ACID 1 MG TAB PO SCH (09:19)
[2021-11-02] MEDS: rifAXIMin 550 MG TABLET PO SCH ×2 (09:19→20:21)
[2021-11-02] MEDS: LACTULOSE SYRUP 30 GM/45 ML UDP PO SCH ×3 (09:19→20:22)
[2021-11-02] MEDS: NITROFURANTOIN MONOHYDRATE 100 MG CAP PO SCH ×2 (09:19→20:21)
[2021-11-02] MEDS: CYANOCOBALAMIN (B-12) 100 MCG TABLET PO SCH (09:19)
[2021-11-02] MEDS: PANTOprazole 40 MG TAB PO SCH (09:19)
[2021-11-02] MEDS: valACYclovir HCL 500 MG TABLET PO SCH (09:20)
[2021-11-02] MEDS: THIAMINE HCL 100 MG TAB PO SCH (09:20)
--- NOTE | 2021-11-02 12:58 | Gastrointestinal Consultation ---
Date of Consultation November 02, 2021 Assessment & Plan (1) COVID-19: (2) Acute UTI: (3) Hepatic encephalopathy: (4) Cirrhosis: Patient is a 61 years old male with history of alcoholic cirrhosis and polysubstance abuse (abstinent for years), MELD 9, HE and varices, who presented w weakness, falls. Workup showed UTI and COVID 19, also elevated ammonia levels. Suspect likely has some hepatic encephalopathy in setting on infection. On exam today, AAOx3, though w asterixis present - Diet as tolerated - Lactulose and Xifaxan as dosed. Titrate Lactulose for goal BM 3-5x a day - Isolation protocol for COVID 19 - UTI management per primary team - Add blood and urine cx - GI to sign off; pls recall prn History of Present Illness Reason for Consultation: Hepatic encephalopathy Requesting Physician: Dr. Fernando Gaming Attending Physician: Dr. Ritu Toribio History of Present Illness Pt is a 61 yo male with history of hyperlipidemia, neuropathy, alcoholic cirrhosis, polysubstance abuse who presented to the ED with complaints of generalized malaise and weakness, frequent falls in the last day or so. Upon evaluation it was noted that he had signs of hyperammonia levels, CK elevated in 200s, he has signs of UTI, also tested positive for COVID-19. CT head and chest x-ray unremarkable. Patient has been taking Xifaxan 550 mg twice daily and lactulose 20 g 3 times daily at home. He denies missing any doses of these medications. He was observed sitting up at the edge of his bed, eating lunch. He is awake, alert, oriented x3. Does have signs of asterixis though. He denies any nausea, vomiting, abdominal pain, signs of dark tarry stools or rectal bleeding. Allergies Allergy/AdvReac Type Severity Reaction Status Date / Time No Known Allergies Allergy Verified 11/01/21 17:14 Home Medications Medication Instructions Recorded Confirmed Type diclofenac sodium 1 % topical gel 2 g topical TID PRN Pain 02/29/20 11/01/21 History cyanocobalamin (vitamin B-12) 100 100 mcg PO QAM 04/04/20 11/01/21 History mcg tablet rifaximin 550 mg tablet (Xifaxan) 550 mg PO BID 04/04/20 11/01/21 History spironolactone 100 mg tablet 100 mg PO BID 04/04/20 11/01/21 History thiamine mononitrate (vit B1) 100 100 mg PO QAM 04/04/20 11/01/21 History mg tablet fluticasone propionate 50 2 spray intranasal DAILY PRN 04/16/20 11/01/21 History mcg/actuation nasal Allergy Symptoms spray,suspension (Flonase Allergy Relief) folic acid 1 mg tablet 1 mg PO DAILY 09/19/20 11/01/21 History pantoprazole 40 mg tablet,delayed 40 mg PO DAILY 09/19/20 11/01/21 History release potassium chloride 20 mEq oral 20 meq PO DAILY 09/19/20 11/01/21 History packet albuterol sulfate 90 mcg/actuation 2 puff inhalation Q4 PRN Shortness 04/25/21 11/01/21 History aerosol inhaler Of Breath duloxetine 60 mg capsule,delayed 60 mg PO HS 04/25/21 11/01/21 History release torsemide 20 mg tablet 20 mg PO AMHS 04/25/21 11/01/21 History lactulose 20 gram/30 mL oral 20 g PO TID 11/01/21 11/01/21 History solution nitrofurantoin 100 mg PO BID 11/01/21 11/01/21 History monohydrate/macrocrystals 100 mg capsule oxycodone 5 mg tablet 5 mg PO Q6H PRN Pain 11/01/21 11/01/21 History phenazopyridine 200 mg tablet 200 mg PO UD 11/01/21 11/01/21 History valacyclovir 1 gram tablet 1,000 mg PO DAILY 11/01/21 11/01/21 History (Valtrex) Patient History Medical History Anxiety Chronic back pain Closed fracture of fifth toe of left foot Depression GERD (gastroesophageal reflux disease) Hearing deficit right ear perf eardrum History of alcohol abuse quit drinking 5 years ago History of anemia History of cirrhosis of liver D/T ALCOHOL History of hepatitis C Hx of ascites Hx of encephalopathy See recent admission 04/2020 [facility] Hx of esophageal varices 2/2 chronic portal HTN Hx of gynecomastia Hx of thrombocytopenia Baseline platelets ~ 50-75k. 2/2 cirrhosis. Hypertension Lumbar disc herniation Lumbar radiculopathy Osteoarthritis of right knee Portal hypertensive gastropathy Portal vein thrombosis hx Sacroiliitis Urinary tract infection hx, recurrent Surgical History Fusion of spine February 2019 History of colonoscopy with polypectomy History of esophagogastroduodenoscopy (EGD) History of lumbar spinal fusion (~05/27/20) Dr. Bauer @ [facility] History of tooth extraction all teeth removed History of total right hip arthroplasty 2018 Hx of decompression of ulnar nerve RIGHT Family History Father Diabetes Other No family history of adverse response to anesthesia Social History Smoking Status: Former smoker Tobacco Type: Cigarettes Second Hand Exposure: No; Hx Alcohol Use: No Hx Substance Use: No Preferred Language: Guyanese Communication Ability: Effective Orchestrator Required: No Beliefs That Will Affect Care: None marital status: Single Current Living Situation: Alone How many Children do You have: 3 Other Information That Helps Us Care for You: No Feels Safe at Home: Yes Safety Concerns: Feels Safe At This Time Assistive Devices: Glasses Review of Systems Review of Systems: All systems reviewed & are unremarkable except as noted in HPI & below Physical Exam Constitutional: WD/WN, vitals as above well groomed, cooperative and comfortable Eyes: PERRL, conjunctivae normal, anicteric sclerae ENMT: external ear and nose normal, oropharynx normal Respiratory: normal respiratory effort, lungs clear to auscultation Cardiovascular: RRR, no murmur, no edema Gastrointestinal (Abdomen): normal bowel sounds, soft, nontender, no hepatosplenomegaly Skin: no rashes, warm and dry no jaundice Neurologic: Motor/Sensory: + asterixis Psychiatric: A+Ox3, euthymic affect Lymphatic: no lymphedema Results & Data ([facility]) Vital Signs (Past 12 Hours) Vital Signs Temp Pulse Resp BP Pulse Ox O2 Del Method 11/02/21 11:45 36.7 C 78 20 134/84 97 Room Air 11/02/21 11:27 Room Air 11/02/21 11:07 99 11/02/21 07:40 36.5 C 82 20 127/73 98 Room Air 11/02/21 05:00 36.6 C 112 H 16 138/64 93 Room Air
[2021-11-02 15:13] LABS: INR 1.2 (0.9-1.1); Prothrombin Time 12.8 Seconds (9.0-12.0)
--- NOTE | 2021-11-02 15:36 | Hospitalist Progress Note ---
Date of Service November 02, 2021 Assessment & Plan (1) Hepatic encephalopathy: (2) Acute UTI: (3) Thrombocytopenia: (4) Cirrhosis: (5) SARS-CoV-2 positive: Plan Per admitting service with addendum: This is a 61-year-old male who has significant past medical history of Alcoholic cirrhosis, esophageal varices, chronic thrombocytopenia in setting of cirrhosis, HLD, GERD, poor peripheral neuropathy, chronic back pain, history of alcohol abuse, history of cocaine and marijuana use who presents to ED due to not feeling well and increased weakness for the past 12 to 24 hours. Acute hepatic encephalopathy In setting of ETOH cirrhosis increased OP lactulose to 30g TID, titrate to 2-3 Good BMS daily monitor NH3 level Consult GI Low-sodium diet Monitor LFTs, BMP Continue rifaximin, aldactone hold torsemide for now Mental status A and O x 2, having freq falls, unsteady gait 11/02 Patient is alert, oriented Improving mental status and weakness Continue lactulose 30 mg 3 times daily and rifaximin PT and OT evaluation Cirrhosis: chronic, 2/2 alcohol and reports cessation since 2014. Management as above other than encephalopathy, compensated from a volume stand point no abd pain, benign exam 11/02 Seems to be euvolemic Torsemide on hold for today, resume tomorrow Dehydration Mild Rhabdomyolysis, likely 2/2 to falls CK 433 gentle hydration Improved to 256 Acute UTI ( POA ) OP urine cx >100k Enterococus on 10/19 repeat urine on 10/31 still positive, todays urine appears improved, continue macrobid til 11/08, prn pyridium SARS COV2 + No respiratory symptoms Chest x-ray: No infiltrates Continue to monitor Generalized weakness Falls 2/2 encephalopathy PT/OT Low back pain Has history of lumbar spine surgery Reports falling off his bed 2 days ago Check lumbar spine x-ray Hx of esophageal varices: No bleeding issues currently continue PPI DVT prophylaxis: SCDS for now, monitor plt ct Platelet count 68,000 Hold off on heparin and Lovenox Code Status Full Code PCP: Radha, [facility] at home Dispo: Pending PT and OT evaluation in progress Admission and Anticipated Discharge Date Admission Date: November 01, 2021 Subjective Follow-up for elevated ammonia level, COVID-19 infection, etc. Seen resting in bed, comfortable, not in distress, in good spirits States he feels improved compared to yesterday, last week Denies shortness of breath or cough, fevers or chills Reports low back pain acute on chronic, reports falling off his bed 2 days ago No new leg weakness, numbness, paresthesia No other symptoms Review of Systems Review of Systems: all noted and negative except for above Physical Exam Physical Exam: General- oriented x 3, not in distress, speaks in sentences with no effort or accessory muscle use Head- atraumatic Eyes- PERRL, EOMI, anicteric ENT- oropharynx clear Neck- supple, no JVD, no adenopathy, no thyromegaly; carotids +2/2, no bruits appreciated Lungs- clear to auscultation bilaterally, no rales/wheezes Heart- normal rate, regular rhythm; no murmur, no gallop, no rub appreciated Abdomen- normal bowel sounds, nondistended, soft, nontender, no masses or hepatosplenomegaly Extremities- no pretibial edema, no calf tenderness; peripheral pulses intact Back-positive mild tenderness lower mid-back Neuro- alert, oriented x 3; CN 2-12 grossly intact; motor 5/5 bilaterally;sensation 100% on all extremities; no other gross focal neurologic deficits Skin- warm & dry Results & Data Results & Data ([facility]) Vital Signs (Past 12 Hours) Vital Signs Temp Pulse Resp BP Pulse Ox O2 Del Method 11/02/21 11:45 36.7 C 78 20 134/84 97 Room Air 11/02/21 11:27 Room Air 11/02/21 11:07 99 11/02/21 07:40 36.5 C 82 20 127/73 98 Room Air 11/02/21 05:00 36.6 C 112 H 16 138/64 93 Room Air all noted and reviewed including below
[2021-11-02] MEDS: DULoxetine HCL 60 MG CAP PO SCH (20:22)
[2021-11-03] MEDS: LACTULOSE SYRUP 30 GM/45 ML UDP PO SCH ×3 (08:21→20:03)
[2021-11-03] MEDS: POTASSIUM CHLORIDE PWD 20 MEQ PACK PO SCH (08:21)
[2021-11-03] MEDS: NITROFURANTOIN MONOHYDRATE 100 MG CAP PO SCH ×2 (08:21→20:04)
[2021-11-03] MEDS: THIAMINE HCL 100 MG TAB PO SCH (08:21)
[2021-11-03] MEDS: rifAXIMin 550 MG TABLET PO SCH ×2 (08:21→20:04)
[2021-11-03] MEDS: CYANOCOBALAMIN (B-12) 100 MCG TABLET PO SCH (08:21)
[2021-11-03] MEDS: FOLIC ACID 1 MG TAB PO SCH (08:23)
[2021-11-03] MEDS: valACYclovir HCL 500 MG TABLET PO SCH (08:23)
[2021-11-03] MEDS: PANTOprazole 40 MG TAB PO SCH (08:23)
[2021-11-03 09:25] LABS: Basophils # (auto) 0.06 K/uL (0-0.2); Basophils % (auto) 1.6 %; Eosinophils # (auto) 0.24 K/uL (0-0.50); Eosinophils % (auto) 6.6 %; Hematocrit (blood only) 35.4 % (40.1-51.0); Hemoglobin 12.5 g/dl (14.0-18.0); Lymphocytes # (auto) 0.83 K/uL (1.2-3.4); Lymphocytes % (auto) 22.7 %; Mean Platelet Volume 11.4 fL (9.4-12.4); Monocytes # (auto) 0.43 K/uL (0.24-0.82); Monocytes % (auto) 11.8 %; Neutrophils # (auto) 2.09 K/uL (1.4-6.5); Neutrophils % (auto) 57.3 %; Platelet Count 63 K/uL (130-400); White Blood Count 3.65 K/ul (4.8-10.8)
[2021-11-03 09:45] LABS: Mean Corpuscular Hemoglobin 35.3 pg (25.0-34.0); Mean Corpuscular Hgb Conc 35.3 g/dL (32.0-36.0); RDW Coefficient of Variation 13.9 % (11.5-14.5); RDW Standard Deviation 50.7 fL (36.4-46.3); Red Blood Count 3.54 M/uL (4.63-6.08)
[2021-11-03 10:06] LABS: BUN Creatinine Ratio 13.4 (10-20); Calcium 8.4 mg/dl (8.5-10.1); Creatinine Clr Calc Pharmacy 118.1 ml/min; Est GFR (African American) 120.2 ml/min; Est GFR (Non-African American) 103.7 ml/min; Potassium 3.8 mmol/L (3.5-5.1)
[2021-11-03] MEDS: LIDOCAINE 5% 1 PATCH TD SCH (11:27)
--- NOTE | 2021-11-03 14:10 | XRay Report ---
SINGLE VIEW PELVIS; 2 VIEWS RIGHT HIP; 2 VIEWS LEFT HIP CLINICAL HISTORY: Fall. Low back pain. Hip pain. FINDINGS: An AP view of the pelvis with AP and frog leg views of the right and left hip are compared to study dated 08/24/2020. The skeletal structures are osteopenic. No acute fracture seen involving th e hips or bony pelvis. A bipolar right hip arthroplasty is in near anatomic alignment. No periprosthe tic lucency is identified. There is a shallow left acetabulum with coxa magna of the left proximal fe mur. Mild sclerotic change is noted in the sacroiliac joints and pubic symphysis. The overlying soft tissues are within normal limits. Fusion hardware and spondylotic change is seen in the lower lumbar region. IMPRESSION: 1. No acute bony abnormality is identified. 2. There is a shallow left acetabulum with coxa magna of the left proximal femur. 3. A right hip arthroplasty is in near anatomic alignment. Electronically signed by: Jamil Freedman M.D. 11/03/2021 2:08 PM
--- NOTE | 2021-11-03 14:57 | XRay Report ---
XR lumbar spine 2-3V CLINICAL HISTORY: low back pain, s/p fall TECHNIQUE: 3 views of the lumbar spine were obtained. Comparison: Comparison is made to lumbar spine radiographs 04/25/2021 FINDINGS: There is no evidence of an acute fracture. Posterior fixation hardware spans L3-L4. Multilevel degene rative changes are seen. Old loss of height of L3 and L4 again noted. Grade 1 anterolisthesis of L4-L 5. No soft tissue abnormality is seen. Partial visualization of right total hip arthroplasty. IMPRESSION: No evidence of acute fracture. Degenerative and postsurgical changes as above. ACT 112: Negative or not required by law. Electronically signed by: Arthur Palmer M.D. 11/03/2021 2:55 PM
--- NOTE | 2021-11-03 15:42 | Hospitalist Progress Note ---
Date of Service November 03, 2021 Assessment & Plan (1) Hepatic encephalopathy: (2) Acute UTI: (3) Thrombocytopenia: (4) Cirrhosis: (5) SARS-CoV-2 positive: Plan Per admitting service with addendum: This is a 61-year-old male who has significant past medical history of Alcoholic cirrhosis, esophageal varices, chronic thrombocytopenia in setting of cirrhosis, HLD, GERD, poor peripheral neuropathy, chronic back pain, history of alcohol abuse, history of cocaine and marijuana use who presents to ED due to not feeling well and increased weakness for the past 12 to 24 hours. Acute hepatic encephalopathy In setting of ETOH cirrhosis increased OP lactulose to 30g TID, titrate to 2-3 Good BMS daily monitor NH3 level Consult GI Low-sodium diet Monitor LFTs, BMP Continue rifaximin, aldactone hold torsemide for now Mental status A and O x 2, having freq falls, unsteady gait 11/03 Patient is alert, oriented Mental status appears to be baseline although ammonia level increased Continue lactulose 30 mg 3 times daily and rifaximin Goal 3 BMs per day PT and OT evaluation: Recommend to return home Cirrhosis: chronic, 2/2 alcohol and reports cessation since 2014. Management as above other than encephalopathy, compensated from a volume stand point no abd pain, benign exam 11/03 Resume usual torsemide Dehydration Mild Rhabdomyolysis, likely 2/2 to falls CK 433 gentle hydration Improved to 256 Acute UTI ( POA ) OP urine cx >100k Enterococus on 10/19 repeat urine on 10/31 still positive, todays urine appears improved, continue macrobid til 11/08, prn pyridium SARS COV2 + No respiratory symptoms Chest x-ray: No infiltrates --Respiratory status stable No changes Generalized weakness Falls 2/2 encephalopathy PT/OT: Recommend to return home Low back pain Has history of lumbar spine surgery Reports falling off his bed 2 days ago lumbar spine x-ray: Pending Pelvis x-ray: No fracture Hx of esophageal varices: No bleeding issues currently continue PPI DVT prophylaxis: SCDS for now, monitor plt ct Platelet count 63,000 Hold off on heparin and Lovenox Code Status Full Code PCP: Radha, indy Marrero at home Dispo: Anticipate discharge home medically stable Admission and Anticipated Discharge Date Admission Date: November 01, 2021 Subjective Follow-up for hepatic encephalopathy, etc. Seen resting in bed, comfortable, not in distress, watching TV States he feels improved today compared to yesterday Denies confusion, drowsiness No shortness of breath, cough, chest pain Ambulating in the room with no problems No other symptoms Review of Systems Review of Systems: all noted and negative except for above Physical Exam Physical Exam: General- oriented x 3, not in distress, speaks in sentences with no effort or accessory muscle use Eyes- anicteric Neck- no JVD Lungs- clear breath sounds, no crackles or wheezing bilaterally Heart- normal rate, regular rhythm; no murmurs Abdomen- normal bowel sounds, nondistended, soft, nontender Extremities- no pretibial edema, no calf tenderness Neuro- alert, oriented x 3; no gross focal neurologic deficits Skin- warm & dry Results & Data Results & Data ([facility]) Vital Signs (Past 12 Hours) Vital Signs Temp Pulse Pulse Resp BP Pulse Ox O2 Del Method 11/03/21 11:15 36.4 C L 64 20 139/78 96 Room Air 11/03/21 10:41 64 11/03/21 07:47 36.6 C 75 21 133/75 97 Room Air 11/03/21 04:00 36.7 C 66 18 106/63 96 Room Air all noted and reviewed including below
[2021-11-03] MEDS: DULoxetine HCL 60 MG CAP PO SCH (20:04)
[2021-11-03] MEDS: ONDANSETRON INJ 2 MG/ML 2 ML VIAL IV PRN (22:52)
[2021-11-04] MEDS: CYANOCOBALAMIN (B-12) 100 MCG TABLET PO SCH (08:46)
[2021-11-04] MEDS: FOLIC ACID 1 MG TAB PO SCH (08:47)
[2021-11-04] MEDS: POTASSIUM CHLORIDE PWD 20 MEQ PACK PO SCH (08:47)
[2021-11-04] MEDS: NITROFURANTOIN MONOHYDRATE 100 MG CAP PO SCH ×2 (08:47→20:24)
[2021-11-04] MEDS: PANTOprazole 40 MG TAB PO SCH (08:47)
[2021-11-04] MEDS: THIAMINE HCL 100 MG TAB PO SCH (08:48)
[2021-11-04] MEDS: valACYclovir HCL 500 MG TABLET PO SCH (08:48)
[2021-11-04] MEDS: LACTULOSE SYRUP 30 GM/45 ML UDP PO SCH ×3 (08:48→20:28)
[2021-11-04] MEDS: rifAXIMin 550 MG TABLET PO SCH ×2 (08:48→20:25)
[2021-11-04] MEDS: LIDOCAINE 5% 1 PATCH TD SCH (08:49)
--- NOTE | 2021-11-04 18:31 | Hospitalist Progress Note ---
Date of Service November 04, 2021 Assessment & Plan (1) Hepatic encephalopathy: (2) Acute UTI: (3) Thrombocytopenia: (4) Cirrhosis: (5) SARS-CoV-2 positive: Plan Per admitting service with addendum: This is a 61-year-old male who has significant past medical history of Alcoholic cirrhosis, esophageal varices, chronic thrombocytopenia in setting of cirrhosis, HLD, GERD, poor peripheral neuropathy, chronic back pain, history of alcohol abuse, history of cocaine and marijuana use who presents to ED due to not feeling well and increased weakness for the past 12 to 24 hours. Acute hepatic encephalopathy In setting of ETOH cirrhosis increased OP lactulose to 30g TID, titrate to 2-3 Good BMS daily monitor NH3 level Consult GI Low-sodium diet Monitor LFTs, BMP Continue rifaximin, aldactone hold torsemide for now Mental status A and O x 2, having freq falls, unsteady gait 11/04 Patient is alert, oriented Mental status appears to be baseline Continue lactulose 30 mg 3 times daily and rifaximin Goal 3 BMs per day PT and OT evaluation: Recommend to return home Feels weak today, reevaluate, hopefully discharge to home tomorrow Cirrhosis: chronic, 2/2 alcohol and reports cessation since 2014. Management as above other than encephalopathy, compensated from a volume stand point no abd pain, benign exam 11/04 Resume usual torsemide and spironolactone Dehydration Mild Rhabdomyolysis, likely 2/2 to falls CK 433 gentle hydration Improved to 256 Acute UTI ( POA ) OP urine cx >100k Enterococus on 10/19 repeat urine on 10/31 still positive, todays urine appears improved, continue macrobid til 11/08, prn pyridium SARS COV2 + No respiratory symptoms Chest x-ray: No infiltrates --Respiratory status stable No new symptoms Generalized weakness Falls 2/2 encephalopathy PT/OT: Recommend to return home Low back pain Has history of lumbar spine surgery Reports falling off his bed 2 days ago lumbar spine x-ray: No acute fractures, degenerative changes noted Pelvis x-ray: No fracture Hx of esophageal varices: No bleeding issues currently continue PPI DVT prophylaxis: SCDS for now, monitor plt ct Platelet count 63,000 Hold off on heparin and Lovenox Code Status Full Code PCP: Radha, indy Marrero at home Dispo: Anticipate discharge home tomorrow Admission and Anticipated Discharge Date Admission Date: November 01, 2021 Subjective Follow-up for hepatic encephalopathy, COVID, etc. Seen sitting up at edge of the bed, patient will also intermittently walk around the room, comfortable, not distressed Answers all questions appropriately States he feels okay overall Somewhat weak today Had some dysuria this morning, resolved No shortness of breath, cough, fevers or chills No abdominal pain, nausea vomiting No other symptoms States he is not ready for discharge today No other symptoms Review of Systems Review of Systems: all noted and negative except for above Physical Exam Physical Exam: General- oriented x 3, not in distress, speaks in sentences with no effort or accessory muscle use Eyes- anicteric Neck- no JVD Lungs- clear breath sounds bilaterally, no crackles, no wheezing appreciated Heart- normal rate, regular rhythm; no murmurs Abdomen- normal bowel sounds, nondistended, soft, no tenderness Extremities- no pretibial edema, no calf tenderness Neuro- alert, oriented x 3; no gross focal neurologic deficits Skin- warm & dry Results & Data Results & Data ([facility]) Vital Signs (Past 12 Hours) Vital Signs Temp Pulse Pulse Pulse Resp BP Pulse Ox 11/04/21 14:18 79 11/04/21 15:47 78 11/04/21 15:07 36.5 C 73 17 144/75 H 98 11/04/21 08:30 11/04/21 11:47 36.7 C 73 16 125/71 97 11/04/21 07:59 36.5 C 69 20 117/68 99 O2 Del Method 11/04/21 14:18 11/04/21 15:47 11/04/21 15:07 Room Air 11/04/21 08:30 Room Air 11/04/21 11:47 Room Air 11/04/21 07:59 Room Air all noted and reviewed including below
[2021-11-04] MEDS: TORSEMIDE 20 MG TAB PO SCH (20:22)
[2021-11-04] MEDS: SPIRONOLACTONE 100 MG TAB PO SCH (20:26)
[2021-11-04] MEDS: DULoxetine HCL 60 MG CAP PO SCH (20:28)
[2021-11-05] MEDS: CYANOCOBALAMIN (B-12) 100 MCG TABLET PO SCH (08:21)
[2021-11-05] MEDS: FOLIC ACID 1 MG TAB PO SCH (08:22)
[2021-11-05] MEDS: LIDOCAINE 5% 1 PATCH TD SCH (08:23)
[2021-11-05] MEDS: NITROFURANTOIN MONOHYDRATE 100 MG CAP PO SCH (08:24)
[2021-11-05] MEDS: POTASSIUM CHLORIDE PWD 20 MEQ PACK PO SCH (08:25)
[2021-11-05] MEDS: PANTOprazole 40 MG TAB PO SCH (08:25)
[2021-11-05] MEDS: LACTULOSE SYRUP 30 GM/45 ML UDP PO SCH ×2 (08:26→14:16)
[2021-11-05] MEDS: valACYclovir HCL 500 MG TABLET PO SCH (08:29)
[2021-11-05] MEDS: rifAXIMin 550 MG TABLET PO SCH (08:30)
[2021-11-05] MEDS: SPIRONOLACTONE 100 MG TAB PO SCH (08:30)
[2021-11-05] MEDS: THIAMINE HCL 100 MG TAB PO SCH (08:31)
[2021-11-05] MEDS: TORSEMIDE 20 MG TAB PO SCH ×2 (08:31→16:38)
--- NOTE | 2021-11-05 12:17 | Hospitalist Progress Note ---
Date of Service November 05, 2021 Assessment & Plan (1) Hepatic encephalopathy: (2) Acute UTI: (3) Thrombocytopenia: (4) Cirrhosis: (5) SARS-CoV-2 positive: Plan This is a 61-year-old male who has significant past medical history of Alcoholic cirrhosis, esophageal varices, chronic thrombocytopenia in setting of cirrhosis, HLD, GERD, poor peripheral neuropathy, chronic back pain, history of alcohol abuse, history of cocaine and marijuana use who presents to ED due to not feeling well and increased weakness for the past 12 to 24 hours. Acute hepatic encephalopathy In setting of ETOH cirrhosis increased OP lactulose to 30g TID, titrate to 2-3 Good BMS daily monitor NH3 level Consult GI Low-sodium diet Monitor LFTs, BMP Continue rifaximin, aldactone hold torsemide for now Mental status A and O x 2, having freq falls, unsteady gait Patient is alert, oriented Mental status appears to be baseline Continue lactulose 30 mg 3 times daily and rifaximin Goal 3 BMs per day PT and OT evaluation: Recommend to return home Cirrhosis: chronic, 2/2 alcohol and reports cessation since 2014. Management as above other than encephalopathy, compensated from a volume stand point no abd pain, benign exam Euvolemic Resume usual torsemide and spironolactone Dehydration Mild Rhabdomyolysis, likely 2/2 to falls CK 433 gentle hydration Improved to 256 Acute UTI ( POA ) OP urine cx >100k Enterococus on 10/19 repeat urine on 10/31 still positive, todays urine appears improved, continue macrobid til 11/08, prn pyridium SARS COV2 + No respiratory symptoms Chest x-ray: No infiltrates --Respiratory status stable No new symptoms Needs to isolate for 6 more days to complete 10-day isolation Generalized weakness Falls 2/2 encephalopathy PT/OT: Recommend to return home Low back pain Has history of lumbar spine surgery Reports falling off his bed 2 days ago lumbar spine x-ray: No acute fractures, degenerative changes noted Pelvis x-ray: No fracture Resolved Hx of esophageal varices: No bleeding issues currently continue PPI DVT prophylaxis: SCDS for now, monitor plt ct Platelet count 63,000 Hold off on heparin and Lovenox Code Status Full Code PCP: Radha, indy Marrero at home Dispo: Discharge to home today Follow-up with PCP in 1 week Admission and Anticipated Discharge Date Admission Date: November 01, 2021 Subjective Follow-up for hepatic encephalopathy, COVID, and etc. Seen resting in bed, comfortable, not in distress Oriented x3, answers all questions appropriately Denies chest pain, shortness of breath, cough, fevers or chills Abdominal pain No other symptoms States he is ready for discharge today Review of Systems Review of Systems: all noted and negative except for above Physical Exam Physical Exam: General- oriented x 3, not in distress, speaks in sentences with no effort or accessory muscle use Eyes- anicteric Neck- no JVD Lungs- clear BS bilaterally, no rales/wheezes Heart- normal rate, regular rhythm; no murmurs Abdomen- normal bowel sounds, nondistended, soft, No tenderness Extremities- no pretibial edema, no calf tenderness Neuro- alert, oriented x 3; no gross focal neurologic deficits Skin- warm & dry Results & Data Results & Data ([facility]) Vital Signs (Past 12 Hours) Vital Signs Temp Pulse Pulse Resp BP Pulse Ox O2 Del Method 11/05/21 11:46 36.7 C 72 18 123/83 97 Room Air 11/05/21 08:06 36.4 C L 67 15 129/68 96 Room Air 11/05/21 03:00 37.0 C 82 18 152/83 H 95 Room Air 11/05/21 00:49 71 all noted and reviewed including below
--- NOTE | 2021-11-05 13:04 | Discharge Summary ---
Discharge Summary Date of Service November 05, 2021 Notes For Next Care Provider Lactulose increased to 30 mg 3 times daily Did not require any treatment for COVID-19 infection Medication Changes From Visit Lactulose increased to 30 mg 3 times daily Admission HPI Per Admitting Provider This is a 61-year-old male who has significant past medical history of Alcoholic cirrhosis, esophageal varices, chronic thrombocytopenia in setting of cirrhosis, HLD, GERD, poor peripheral neuropathy, chronic back pain, history of alcohol abuse, history of cocaine and marijuana use who presents to ED due to not feeling well and increased weakness for the past 12 to 24 hours. He states last night he rolled out of bed and fell on the floor. He denies hitting his head but he does complain of a mild right-sided headache. He denies any vision or hearing changes. He also admits to falling approximately 3-4 additional times over the past week. He denies any acute injury. He generally feels weak and unsteady. He does live at home by himself and does have [facility] home coming in to see him. He admits to being compliant with his medications, including lactulose. States he has been having about 1-2 BM a day. Last BM was this morning and was formed. He denies any f/c/s, chest pain, sob, cough, uri sx, n/v/d, abd pain. He is being treated for a UTI as outpt with macrobid. He is on his second round of antibiotics. He complains of dysuria but feels it is improving. He denies hematuria, hematochezia, hematemesis, or increased urinary urgent. In ED pt remained hemodynamically stable. Lab work notable for hyperammonemia with ammonia level of 118 and CK of 433, AST 61, total bilirubin 1.4. His urinalysis was positive for nitrites but negative for bacteria. Incidentally he also tested positive for SARS-CoV-2. Admission Exam Per Admitting Provider Constitutional: Chronic ill appearing, + Tattoos, vitals as above, NAD, sitting up in bed, pleasant, conversing easily Head: Normocephalic, Atraumatic Eyes: PERRL, conjunctivae normal, anicteric sclerae ENMT: external ear and nose normal, oropharynx normal Neck: trachea midline, no thyromegaly normal visual inspection Respiratory: normal respiratory effort, lungs clear to auscultation, no wheeze, rales, rhonchi. Normal insp/exp effort, no accessory muscle use Cardiovascular: RRR, no murmur, no edema Vessels: no JVD or carotid bruit Chest: normal inspection of chest + Lacw ecchymosis Abdomen: normal bowel sounds, soft, nontender, no hepatosplenomegaly Musculoskeletal: no cyanosis or clubbing, AROM x 4 Skin: no rashes, warm and dry normal turgor Neurologic:slowed speech PERRL, EOMI, accommodation nl, no face palsy, no dysarthria CN's II-XI intact bilaterally and moves all extremities Psychiatric: A+Ox2 person/place but not time, he is oriented to president and season, euthymic affect Lymphatic: no cervical or axillary lymphadenopathy : deferred Principal Dx & Hospital Course #1 = Principal Diagnosis (1) Hepatic encephalopathy: (2) Acute UTI: (3) Thrombocytopenia: (4) Cirrhosis: (5) SARS-CoV-2 positive: Plan This is a 61-year-old male who has significant past medical history of Alcoholic cirrhosis, esophageal varices, chronic thrombocytopenia in setting of cirrhosis, HLD, GERD, poor peripheral neuropathy, chronic back pain, history of alcohol abuse, history of cocaine and marijuana use who presents to ED due to not feeling well and increased weakness for the past 12 to 24 hours. Acute hepatic encephalopathy In setting of ETOH cirrhosis increased OP lactulose to 30g TID, titrate to 2-3 Good BMS daily Continue rifaximin Patient is alert, oriented Mental status appears to be baseline Continue lactulose 30 mg 3 times daily and rifaximin Goal 3 BMs per day PT and OT evaluation: Recommend to return home Cirrhosis: chronic, 2/2 alcohol and reports cessation since 2014. Management as above other than encephalopathy, compensated from a volume stand point no abd pain, benign exam Euvolemic Resume usual torsemide and spironolactone Dehydration Mild Rhabdomyolysis, likely 2/2 to falls CK 433 gentle hydration Improved to 256 Acute UTI ( POA ) OP urine cx >100k Enterococus on 10/19 repeat urine on 10/31 still positive, todays urine appears improved, continue macrobid til 11/08, prn pyridium SARS COV2 + No respiratory symptoms Chest x-ray: No infiltrates --Respiratory status stable No new symptoms Needs to isolate for 6 more days to complete 10-day isolation Generalized weakness Falls 2/2 encephalopathy PT/OT: Recommend to return home Low back pain Has history of lumbar spine surgery Reports falling off his bed 2 days ago lumbar spine x-ray: No acute fractures, degenerative changes noted Pelvis x-ray: No fracture Resolved Hx of esophageal varices: No bleeding issues currently continue PPI DVT prophylaxis: SCDS for now, monitor plt ct Platelet count 63,000 Hold off on heparin and Lovenox Code Status Full Code PCP: Radha, follows [facility] home Dispo: Discharge to home today Follow-up with PCP in 1 week Discharge Exam General- oriented x 3, not in distress, speaks in sentences with no effort or accessory muscle use Eyes- anicteric Neck- no JVD Lungs- clear BS bilaterally, no rales/wheezes Heart- normal rate, regular rhythm; no murmurs Abdomen- normal bowel sounds, nondistended, soft, No tenderness Extremities- no pretibial edema, no calf tenderness Neuro- alert, oriented x 3; no gross focal neurologic deficits Skin- warm & dry Updated Medication List Medication Instructions Recorded Confirmed Type diclofenac sodium 1 % topical gel 2 g topical TID PRN Pain 02/29/20 11/01/21 History cyanocobalamin (vitamin B-12) 100 100 mcg PO QAM 04/04/20 11/01/21 History mcg tablet rifaximin 550 mg tablet (Xifaxan) 550 mg PO BID 04/04/20 11/01/21 History spironolactone 100 mg tablet 100 mg PO BID 04/04/20 11/01/21 History thiamine mononitrate (vit B1) 100 100 mg PO QAM 04/04/20 11/01/21 History mg tablet fluticasone propionate 50 2 spray intranasal DAILY PRN 04/16/20 11/01/21 History mcg/actuation nasal Allergy Symptoms spray,suspension (Flonase Allergy Relief) folic acid 1 mg tablet 1 mg PO DAILY 09/19/20 11/01/21 History pantoprazole 40 mg tablet,delayed 40 mg PO DAILY 09/19/20 11/01/21 History release potassium chloride 20 mEq oral 20 meq PO DAILY 09/19/20 11/01/21 History packet albuterol sulfate 90 mcg/actuation 2 puff inhalation Q4 PRN Shortness 04/25/21 11/01/21 History aerosol inhaler Of Breath duloxetine 60 mg capsule,delayed 60 mg PO HS 04/25/21 11/01/21 History release torsemide 20 mg tablet 20 mg PO AMHS 04/25/21 11/01/21 History lactulose 20 gram/30 mL oral 20 g PO TID 11/01/21 11/01/21 History solution nitrofurantoin 100 mg PO BID 11/01/21 11/01/21 History monohydrate/macrocrystals 100 mg capsule oxycodone 5 mg tablet 5 mg PO Q6H PRN Pain 11/01/21 11/01/21 History phenazopyridine 200 mg tablet 200 mg PO UD 11/01/21 11/01/21 History valacyclovir 1 gram tablet 1,000 mg PO DAILY 11/01/21 11/01/21 History (Valtrex) Hospital Stay Data Consultations 11/01/21 17:37 ED Decision to Admit Stat 11/02/21 08:00 Consult Gastroenterology Routine Diagnostic Imagining Performed Chest X-Ray 11/01/21 15:48 XR chest 1V portable CLINICAL HISTORY: chest pains TECHNIQUE: Single frontal radiograph of the chest was obtained. Comparison: Comparison is made to chest radiograph 04/25/2021 FINDINGS: No lines and tubes are seen. The cardiomediastinal silhouette is normal. The lungs are clear. No evidence of pleural effusion or pneumothorax. IMPRESSION: No acute chest disease. ACT 112: Negative or not required by law. Electronically signed by: Arthur Palmer M.D. 11/01/2021 4:[address] 11/01/21 18:02 CT head/brain wo con CLINICAL HISTORY: 61 years-old Male with headache, fall. Acute headache status post fall TECHNIQUE: Multiple axial CT images of the head were obtained without contrast. A dose lowering technique was utilized adhering to the principles of ALARA. CT DOSE: 821.00 mGycm COMPARISON: Head CT 04/25/2021 FINDINGS: No acute intracranial hemorrhage, midline shift, intracranial mass, hydrocephalus, territorial ischemia or abnormal extra-axial collection. Cerebral vascular calcifications. The calvarium is intact. The paranasal sinuses, mastoid air cells, and middle ear cavities are clear. IMPRESSION: No acute intracranial abnormality or calvarial fracture. ACT 112: Negative or not required by law. The above report was generated using voice recognition software. It may contain grammatical, syntax or spelling errors. Electronically signed by: Uriel Herrera M.D. 11/01/2021 7:23 PM Hip/Pelvis X-Ray 11/03/21 08:52 SINGLE VIEW PELVIS; 2 VIEWS RIGHT HIP; 2 VIEWS LEFT HIP CLINICAL HISTORY: Fall. Low back pain. Hip pain. FINDINGS: An AP view of the pelvis with AP and frog leg views of the right and left hip are compared to study dated 08/24/2020. The skeletal structures are osteopenic. No acute fracture seen involving the hips or bony pelvis. A bipolar right hip arthroplasty is in near anatomic alignment. No periprosthetic lucency is identified. There is a shallow left acetabulum with coxa magna of the left proximal femur. Mild sclerotic change is noted in the sacroiliac joints and pubic symphysis. The overlying soft tissues are within normal limits. Fusion hardware and spondylotic change is seen in the lower lumbar region. IMPRESSION: 1. No acute bony abnormality is identified. 2. There is a shallow left acetabulum with coxa magna of the left proximal femur. 3. A right hip arthroplasty is in near anatomic alignment. Electronically signed by: Jamil Freedman M.D. 11/03/2021 2:08 PM Lumbar Spine X-Ray 11/03/21 08:52 XR lumbar spine 2-3V CLINICAL HISTORY: low back pain, s/p fall TECHNIQUE: 3 views of the lumbar spine were obtained. Comparison: Comparison is made to lumbar spine radiographs 04/25/2021 FINDINGS: There is no evidence of an acute fracture. Posterior fixation hardware spans L3- L4. Multilevel degenerative changes are seen. Old loss of height of L3 and L4 again noted. Grade 1 anterolisthesis of L4-L5. No soft tissue abnormality is seen. Partial visualization of right total hip arthroplasty. IMPRESSION: No evidence of acute fracture. Degenerative and postsurgical changes as above. ACT 112: Negative or not required by law. Electronically signed by: Arthur Palmer M.D. 11/03/2021 2:55 PM 11/01/21 18:02 CT head/brain wo con Stat Pending Results Patient Have Any Pending Studies at Discharge: No Discharge Instructions Given to Patient (Per Discharging Provider) Please resume your usual medications. Always take your lactulose and rifaximin regularly. Goal is to have 2-3 bowel movements per day. You still need to isolate for 6 more days To prevent transmission of COVID-19 virus to others. PLEASE CALL YOUR PRIMARY CARE PHYSICIAN OR RETURN TO THE ER IF WITH WORSENING OF SYMPTOMS, INCLUDING Shortness of breath, cough, fevers or chills, nausea vomiting, weakness Abdominal pain, abdominal swelling, leg swelling, etc. FOLLOW UP WITH PRIMARY CARE PHYSICIAN OUTLINED ABOVE. Home Isolation COVID-19 Instructions The following information about Home Isolation is from the CDC Website: https://www.cdc.gov/coronavirus/2019-ncov/hcp/atirexoe-yudmaow-gvbkwv.html Stay home except to get medical care People who are mildly ill with COVID-19 are able to isolate at home during their illness. You should restrict activities outside your home, except for getting medical care. Do not go to work, school, or public areas. Avoid using public transportation, ride-sharing, or taxis. Separate yourself from other people and animals in your home People: As much as possible, you should stay in a specific room and away from other people in your home. Also, you should use a separate bathroom, if available. Animals: You should restrict contact with pets and other animals while you are sick with COVID-19, just like you would around other people. Although there have not been reports of pets or other animals becoming sick with COVID-19, it is still recommended that people sick with COVID-19 limit contact with animals until more information is known about the virus. When possible, have another member of your household care for your animals while you are sick. If you are sick with COVID-19, avoid contact with your pet, including petting, snuggling, being kissed or licked, and sharing food. If you must care for your pet or be around animals while you are sick, wash your hands before and after you interact with pets and wear a face mask. Call ahead before visiting your doctor If you have a medical appointment, call the healthcare provider and tell them that you have or may have COVID-19. This will help the healthcare providers office take steps to keep other people from getting infected or exposed. Wear a face mask You should wear a face mask when you are around other people (e.g., sharing a room or vehicle) or pets and before you enter a healthcare providers office. If you are not able to wear a face mask (for example, because it causes trouble breathing), then people who live with you should not stay in the same room with you, or they should wear a face mask if they enter your room. Cover your coughs and sneezes Cover your mouth and nose with a tissue when you cough or sneeze. Throw used tissues in a lined trash can. Immediately wash your hands with soap and water for at least 20 seconds or, if soap and water are not available, clean your hands with an alcohol-based hand belt brander that contains at least 60% alcohol. Clean your hands often Wash your hands often with soap and water for at least 20 seconds, especially after blowing your nose, coughing, or sneezing; going to the bathroom; and before eating or preparing food. If soap and water are not readily available, use an alcohol-based hand belt brander with at least 60% alcohol, covering all surfaces of your hands and rubbing them together until they feel dry. Soap and water are the best option if hands are visibly dirty. Avoid touching your eyes, nose, and mouth with unwashed hands. Avoid sharing personal household items You should not share dishes, drinking glasses, cups, eating utensils, towels, or bedding with other people or pets in your home. After using these items, they should be washed thoroughly with soap and water. Clean all high-touch surfaces everyday High touch surfaces include counters, tabletops, doorknobs, bathroom fixtures, toilets, phones, keyboards, tablets, and bedside tables. Also, clean any surfaces that may have blood, stool, or body fluids on them. Use a household cleaning spray or wipe, according to the label instructions. Labels contain instructions for safe and effective use of the cleaning product including precautions you should take when applying the product, such as wearing gloves and making sure you have good ventilation during use of the product. Monitor your symptoms Seek prompt medical attention if your illness is worsening (e.g., difficulty breathing).Beforeseeking care, call your healthcare provider and tell them that you have, or are being evaluated for, COVID-19. Put on a face mask before you enter the facility. These steps will help the healthcare providers office to keep other people in the office or waiting room from getting infected or exposed. Ask your healthcare provider to call the local or state health department. Persons who are placed under active monitoring or facilitated self- monitoring should follow instructions provided by their local health department or occupational health professionals, as appropriate. When working with your local health department check their available hours. If you have a medical emergency and need to call 911, notify the dispatch personnel that you have, or are being evaluated for COVID-19. If possible, put on a face mask before emergency medical services arrive. Discontinuing home isolation Patients with confirmed COVID-19 should remain under home isolation precautions until the risk of secondary transmission to others is thought to be low. The decision to discontinue home isolation precautions should be made on a [id number] basis, in consultation with healthcare providers and state and local health departments. Total Time Total Time Spent Total Time Spent (In Minutes): >30 minutes
--- NOTE | 2021-11-05 16:24 | Discharge Summary ---
Discharge Summary Date of Service November 05, 2021 Admission HPI Per Admitting Provider This is a 61-year-old male who has significant past medical history of Alcoholic cirrhosis, esophageal varices, chronic thrombocytopenia in setting of cirrhosis, HLD, GERD, poor peripheral neuropathy, chronic back pain, history of alcohol abuse, history of cocaine and marijuana use who presents to ED due to not feeling well and increased weakness for the past 12 to 24 hours. He states last night he rolled out of bed and fell on the floor. He denies hitting his head but he does complain of a mild right-sided headache. He denies any vision or hearing changes. He also admits to falling approximately 3-4 additional times over the past week. He denies any acute injury. He generally feels weak and unsteady. He does live at home by himself and does have [facility] coming in to see him. He admits to being compliant with his medications, including lactulose. States he has been having about 1-2 BM a day. Last BM was this morning and was formed. He denies any f/c/s, chest pain, sob, cough, uri sx, n/v/d, abd pain. He is being treated for a UTI as outpt with macrobid. He is on his second round of antibiotics. He complains of dysuria but feels it is i mproving. He denies hematuria, hematochezia, hematemesis, or increased urinary urgent. In ED pt remained hemodynamically stable. Lab work notable for hyperammonemia with ammonia level of 118 and CK of 433, AST 61, total bilirubin 1.4. His urinalysis was positive for nitrites but negative for bacteria. Incidentally he also tested positive for SARS-CoV-2. Principal Dx & Hospital Course #1 = Principal Diagnosis (1) Hepatic encephalopathy: (2) Acute UTI: (3) Thrombocytopenia: (4) Cirrhosis: (5) SARS-CoV-2 positive: Plan This is a 61-year-old male who has significant past medical history of Alcoholic cirrhosis, esophageal varices, chronic thrombocytopenia in setting of cirrhosis, HLD, GERD, poor peripheral neuropathy, chronic back pain, history of alcohol abuse, history of cocaine and marijuana use who presents to ED due to not feeling well and increased weakness for the past 12 to 24 hours. Acute hepatic encephalopathy In setting of ETOH cirrhosis increased OP lactulose to 30g TID, titrate to 2-3 Good BMS daily Continue rifaximin Patient is alert, oriented Mental status appears to be baseline Continue lactulose 30 mg 3 times daily and rifaximin Goal 3 BMs per day PT and OT evaluation: Recommend to return home Cirrhosis: chronic, 2/2 alcohol and reports cessation since 2014. Management as above other than encephalopathy, compensated from a volume stand point no abd pain, benign exam Euvolemic Resume usual torsemide and spironolactone Dehydration Mild Rhabdomyolysis, likely 2/2 to falls CK 433 gentle hydration Improved to 256 Acute UTI ( POA ) OP urine cx >100k Enterococus on 10/19 repeat urine on 10/31 still positive, todays urine appears improved, continue macrobid til 11/08, prn pyridium SARS COV2 + No respiratory symptoms Chest x-ray: No infiltrates --Respiratory status stable No new symptoms Needs to isolate for 6 more days to complete 10-day isolation Generalized weakness Falls 2/2 encephalopathy PT/OT: Recommend to return home Low back pain Has history of lumbar spine surgery Reports falling off his bed 2 days ago lumbar spine x-ray: No acute fractures, degenerative changes noted Pelvis x-ray: No fracture Resolved Hx of esophageal varices: No bleeding issues currently continue PPI DVT prophylaxis: SCDS for now, monitor plt ct Platelet count 63,000 Hold off on heparin and Lovenox Code Status Full Code PCP: Radha, [facility] Dispo: Discharge to home today Follow-up with PCP in 1 week Updated Medication List Medication Instructions Recorded Confirmed Type diclofenac sodium 1 % topical gel 2 g topical TID PRN Pain 02/29/20 11/01/21 History cyanocobalamin (vitamin B-12) 100 100 mcg PO QAM 04/04/20 11/01/21 History mcg tablet rifaximin 550 mg tablet (Xifaxan) 550 mg PO BID 04/04/20 11/01/21 History spironolactone 100 mg tablet 100 mg PO BID 04/04/20 11/01/21 History thiamine mononitrate (vit B1) 100 100 mg PO QAM 04/04/20 11/01/21 History mg tablet fluticasone propionate 50 2 spray intranasal DAILY PRN 04/16/20 11/01/21 History mcg/actuation nasal Allergy Symptoms spray,suspension (Flonase Allergy Relief) folic acid 1 mg tablet 1 mg PO DAILY 09/19/20 11/01/21 History pantoprazole 40 mg tablet,delayed 40 mg PO DAILY 09/19/20 11/01/21 History release potassium chloride 20 mEq oral 20 meq PO DAILY 09/19/20 11/01/21 History packet albuterol sulfate 90 mcg/actuation 2 puff inhalation Q4 PRN Shortness 04/25/21 11/01/21 History aerosol inhaler Of Breath duloxetine 60 mg capsule,delayed 60 mg PO HS 04/25/21 11/01/21 History release torsemide 20 mg tablet 20 mg PO AMHS 04/25/21 11/01/21 History nitrofurantoin 100 mg PO BID 11/01/21 11/01/21 History monohydrate/macrocrystals 100 mg capsule oxycodone 5 mg tablet 5 mg PO Q6H PRN Pain 11/01/21 11/01/21 History phenazopyridine 200 mg tablet 200 mg PO UD 11/01/21 11/01/21 History valacyclovir 1 gram tablet 1,000 mg PO DAILY 11/01/21 11/01/21 History (Valtrex) lactulose 20 gram/30 mL oral 30 g (45 mL) PO TID 30 days #4,050 11/05/21 Rx solution mL Hospital Stay Data Consultations 11/01/21 17:37 ED Decision to Admit Stat 11/02/21 08:00 Consult Gastroenterology Routine Diagnostic Imagining Performed 11/01/21 18:02 CT head/brain wo con Stat Pending Results Patient Have Any Pending Studies at Discharge: No Discharge Instructions Given to Patient (Per Discharging Provider) Increase your lactulose to 30 g 3 times a day. Always take your lactulose and rifaximin regularly. Goal is to have 2-3 bowel movements per day. You still need to isolate for 6 more days To prevent transmission of COVID-19 virus to others. PLEASE CALL YOUR PRIMARY CARE PHYSICIAN OR RETURN TO THE ER IF WITH WORSENING OF SYMPTOMS, INCLUDING Shortness of breath, cough, fevers or chills, nausea vomiting, weakness Abdominal pain, abdominal swelling, leg swelling, etc. FOLLOW UP WITH PRIMARY CARE PHYSICIAN OUTLINED ABOVE. Home Isolation COVID-19 Instructions The following information about Home Isolation is from the CDC Website: https://www.cdc.gov/coronavirus/2019-ncov/hcp/qtmicbmv-bpsvape-shppui.html Stay home except to get medical care People who are mildly ill with COVID-19 are able to isolate at home during their illness. You should restrict activities outside your home, except for getting medical care. Do not go to work, school, or public areas. Avoid using public transportation, ride-sharing, or taxis. Separate yourself from other people and animals in your home People: As much as possible, you should stay in a specific room and away from other people in your home. Also, you should use a separate bathroom, if available. Animals: You should restrict contact with pets and other animals while you are sick with COVID-19, just like you would around other people. Although there have not been reports of pets or other animals becoming sick with COVID-19, it is still recommended that people sick with COVID-19 limit contact with animals until more information is known about the virus. When possible, have another member of your household care for your animals while you are sick. If you are sick with COVID-19, avoid contact with your pet, including petting, snuggling, being kissed or licked, and sharing food. If you must care for your pet or be around animals while you are sick, wash your hands before and after you interact with pets and wear a face mask. Call ahead before visiting your doctor If you have a medical appointment, call the healthcare provider and tell them that you have or may have COVID-19. This will help the healthcare providers office take steps to keep other people from getting infected or exposed. Wear a face mask You should wear a face mask when you are around other people (e.g., sharing a room or vehicle) or pets and before you enter a healthcare providers office. If you are not able to wear a face mask (for example, because it causes trouble b reathing), then people who live with you should not stay in the same room with you, or they should wear a face mask if they enter your room. Cover your coughs and sneezes Cover your mouth and nose with a tissue when you cough or sneeze. Throw used tissues in a lined trash can. Immediately wash your hands with soap and water for at least 20 seconds or, if soap and water are not available, clean your hands with an alcohol-based hand staffing and scheduling coordinator that contains at least 60% alcohol. Clean your hands often Wash your hands often with soap and water for at least 20 seconds, especially after blowing your nose, coughing, or sneezing; going to the bathroom; and before eating or preparing food. If soap and water are not readily available, use an alcohol-based hand staffing and scheduling coordinator with at least 60% alcohol, covering all surfaces of your hands and rubbing them together until they feel dry. Soap and water are the best option if hands are visibly dirty. Avoid touching your eyes, nose, and mouth with unwashed hands. Avoid sharing personal household items You should not share dishes, drinking glasses, cups, eating utensils, towels, or bedding with other people or pets in your home. After using these items, they should be washed thoroughly with soap and water. Clean all high-touch surfaces everyday High touch surfaces include counters, tabletops, doorknobs, bathroom fixtures, toilets, phones, keyboards, tablets, and bedside tables. Also, clean any surfaces that may have blood, stool, or body fluids on them. Use a household cleaning spray or wipe, according to the label instructions. Labels contain instructions for safe and effective use of the cleaning product including precautions you should take when applying the product, such as wearing gloves and making sure you have good ventilation during use of the product. Monitor your symptoms Seek prompt medical attention if your illness is worsening (e.g., difficulty breathing).Beforeseeking care, call your healthcare provider and tell them that you have, or are being evaluated for, COVID-19. Put on a face mask before you enter the facility. These steps will help the healthcare providers office to keep other people in the office or waiting room from getting infected or exposed. Ask your healthcare provider to call the local or state health department. Persons who are placed under active monitoring or facilitated self- monitoring should follow instructions provided by their local health department or occupational health professionals, as appropriate. When working with your local health department check their available hours. If you have a medical emergency and need to call 911, notify the dispatch personnel that you have, or are being evaluated for COVID-19. If possible, put on a face mask before emergency medical services arrive. Discontinuing home isolation Patients with confirmed COVID-19 should remain under home isolation precautions until the risk of secondary transmission to others is thought to be low. The decision to discontinue home isolation precautions should be made on a [id number] basis, in consultation with healthcare providers and state and local health departments.
== END 2021-11-05 17:33 | disposition home or self-care (01) | DRG 441 ==
LOC: ED 15:22 → SUATTDRO 17:41 → 2S 17:41

== ENCOUNTER 2021-11-08 12:31 | Inpatient (IN) ==
[2021-11-08] MEDS ORDERED: ONDANSETRON INJ 2 MG/ML 2 ML VIAL IV STA (13:03)
[2021-11-08] MEDS ORDERED: SODIUM CHLORIDE 0.9% 1000ML 1,000 ML IV SCH (13:15)
--- NOTE | 2021-11-08 13:28 | Emergency Department Note ---
History of Present Illness General Chief complaint: Confusion Time Seen by Provider: 11/08/21 12:57 Source: patient, EMS and RN notes reviewed History of Present Illness Provider complaint: Altered mental status Onset (ago): unknown He 1-year-old male presents emergency department via EMS. Per EMS and nursing staff the patient was found walking in his boots and bathrobe only. Patient states he has been drinking alcohol. Patient has a history of alcoholism. Patient states he is unsure if he fell. Home Medications Medication Instructions Recorded Confirmed Type diclofenac sodium 1 % topical gel 2 g topical TID PRN Pain 02/29/20 11/01/21 History cyanocobalamin (vitamin B-12) 100 100 mcg PO QAM 04/04/20 11/01/21 History mcg tablet rifaximin 550 mg tablet (Xifaxan) 550 mg PO BID 04/04/20 11/01/21 History spironolactone 100 mg tablet 100 mg PO BID 04/04/20 11/01/21 History thiamine mononitrate (vit B1) 100 100 mg PO QAM 04/04/20 11/01/21 History mg tablet fluticasone propionate 50 2 spray intranasal DAILY PRN 04/16/20 11/01/21 History mcg/actuation nasal Allergy Symptoms spray,suspension (Flonase Allergy Relief) folic acid 1 mg tablet 1 mg PO DAILY 09/19/20 11/01/21 History pantoprazole 40 mg tablet,delayed 40 mg PO DAILY 09/19/20 11/01/21 History release potassium chloride 20 mEq oral 20 meq PO DAILY 09/19/20 11/01/21 History packet albuterol sulfate 90 mcg/actuation 2 puff inhalation Q4 PRN Shortness 04/25/21 11/01/21 History aerosol inhaler Of Breath duloxetine 60 mg capsule,delayed 60 mg PO HS 04/25/21 11/01/21 History release torsemide 20 mg tablet 20 mg PO AMHS 04/25/21 11/01/21 History nitrofurantoin 100 mg PO BID 11/01/21 11/01/21 History monohydrate/macrocrystals 100 mg capsule oxycodone 5 mg tablet 5 mg PO Q6H PRN Pain 11/01/21 11/01/21 History phenazopyridine 200 mg tablet 200 mg PO UD 11/01/21 11/01/21 History valacyclovir 1 gram tablet 1,000 mg PO DAILY 11/01/21 11/01/21 History (Valtrex) lactulose 20 gram/30 mL oral 30 g (45 mL) PO TID 30 days #4,050 11/05/21 Rx solution mL Allergies Allergy/AdvReac Type Severity Reaction Status Date / Time No Known Allergies Allergy Verified 11/01/21 17:14 Past Med/Surg History Medical History Anxiety Chronic back pain Closed fracture of fifth toe of left foot Depression GERD (gastroesophageal reflux disease) Hearing deficit right ear perf eardrum History of alcohol abuse quit drinking 5 years ago History of anemia History of cirrhosis of liver D/T ALCOHOL History of hepatitis C Hx of ascites Hx of encephalopathy See recent admission 04/2020 [facility] Hx of esophageal varices 2/2 chronic portal HTN Hx of gynecomastia Hx of thrombocytopenia Baseline platelets ~ 50-75k. 2/2 cirrhosis. Hypertension Lumbar disc herniation Lumbar radiculopathy Osteoarthritis of right knee Portal hypertensive gastropathy Portal vein thrombosis hx Sacroiliitis Urinary tract infection hx, recurrent Surgical History Fusion of spine February 2019 History of colonoscopy with polypectomy History of esophagogastroduodenoscopy (EGD) History of lumbar spinal fusion (~05/27/20) Dr. Bauer @ [facility] History of tooth extraction all teeth removed History of total right hip arthroplasty 2018 Sept Hx of decompression of ulnar nerve RIGHT Family History Father Diabetes Other No family history of adverse response to anesthesia Social History Smoking Status: Smoker, status unknown Tobacco Type: Cigarettes Second Hand Exposure: No; Hx Alcohol Use: No Hx Substance Use: No Preferred Language: Danish Communication Ability: Effective Tiler Required: No Beliefs That Will Affect Care: None marital status: / Current Living Situation: Alone How many Children do You have: 3 Feels Safe at Home: Yes Assistive Devices: Cane and Other Review of Systems Unobtainable due to cognitive status Physical Exam Vital Signs Vital Signs - 24 hr 11/08/21 12:41 11/08/21 12:41 11/08/21 12:49 Temperature Temperature Source Pulse Rate 70 Pulse Rate [Apical] 71 Respiratory Rate 15 15 Respiratory Effort / Characteristics Respiratory Depth Normal Respiratory Pattern Blood Pressure 113/75 Blood Pressure [Right Arm] Blood Pressure Mean 87 Blood Pressure Mean [Right Arm] Pulse Oximetry 96 97 99 Oxygen Delivery Method Room Air Room Air Room Air Oxygen Flow Rate 0 Sepsis Recent Fever Within 48 Hours No Sepsis New/Unexplained Change in Mental Status No Sepsis Action Taken by Nursing No Action Required 11/08/21 13:51 11/08/21 15:00 11/08/21 15:41 Temperature 36.6 C Temperature Source Oral Pulse Rate Pulse Rate [Apical] 65 Respiratory Rate 20 Respiratory Effort / Characteristics Non-Labored Spontaneous Respiratory Depth Normal Respiratory Pattern Regular Blood Pressure Blood Pressure [Right Arm] 153/81 H Blood Pressure Mean Blood Pressure Mean [Right Arm] 105 Pulse Oximetry 95 97 Oxygen Delivery Method Room Air Room Air Oxygen Flow Rate Sepsis Recent Fever Within 48 Hours Sepsis New/Unexplained Change in Mental Status Sepsis Action Taken by Nursing Physical Exam GENERAL: Slurring his words and appears intoxicated. HENT: Exam performed. - Head: Normocephalic and atraumatic. - Right Ear: External ear normal. No mastoid tenderness. - Left Ear: External ear normal. No mastoid tenderness. - Mouth/Throat: The oropharynx is clear and moist. No trismus in the jaw. No dental abscesses or uvula swelling. No oropharyngeal exudate or tonsillar abscesses. EYES: Conjunctivae and EOM are normal. Pupils are equal, round, and reactive to light. Right eye exhibits no discharge. Left eye exhibits no discharge. No scleral icterus. NECK: Normal range of motion. Neck supple. No JVD present. No spinous process t enderness present. No carotid bruit present. No rigidity. No tracheal deviation and normal range of motion present. No Brudzinski's sign and no Kernig's sign noted. CV: Normal rate, regular rhythm, normal heart sounds and intact distal pulses. There is no peripheral edema. Palpable radial pulses bue. PULM/CHEST: Effort normal and breath sounds normal. No respiratory distress. No stridor. He has no wheezes. He has no rales. - Chest Wall: He exhibits no tenderness. ABD: The abdomen is soft. No pain on palpation of the abdomen. MUSC/SKEL: Normal range of motion. There is no peripheral edema, tenderness or deformity. LYMPH: No cervical adenopathy. NEURO:GCS eye subscore is 4. GCS verbal subscore is 4. GCS motor subscore is 6. Course Course 1257: The patient was evaluated in room B2. A complete history and physical exam was performed Cardiac monitoring: An order was placed for continuous cardiac monitoring. The monitor shows a rate of 70 with sinus rhythm 1545: Vital signs stable. Labs show an elevated ammonia of 146. Bili 1.5. Alcohol negative. CT of the head negative. Patient be treated with lactulose and admitted to the [facility]ist team spoke with Fidelia Traylor who stated to admit to Dr. Martínez Administered Medications Sodium Chloride (Nss 1000ml) 1,000 mls @ 125 mls/hr IV .Q8H AMBER Stop: 12/08/21 13:14 Last Admin: 11/08/21 13:45 Dose: 125 mls/hr Documented By: IVETT Discontinued Medications Lorazepam (Lorazepam 1 Mg Tab) 1 mg SL NOW STA Stop: 11/08/21 14:49 Last Admin: 11/08/21 15:04 Dose: 1 mg Documented By: IVETT Ondansetron HCl (Ondansetron Inj 2 Mg/Ml 2 Ml Vial) 4 mg IV NOW STA Stop: 11/08/21 13:04 Last Admin: 11/08/21 13:45 Dose: 4 mg Documented By: IVETT Medical Decision Making Laboratory Data Result diagrams: 11/08/21 12:00 11/08/21 13:13 Lab Results 11/08/21 11/08/21 11/08/21 Range/Units 12:00 12:00 13:12 WBC 3.63 L (4.8-10.8) K/ul RBC 3.63 L (4.63-6.08) M/uL Hgb 13.9 L (14.0-18.0) g/dl Hct 38.1 L (40.1-51.0) % MCV 98.4 (80.0-100.0) fL MCH 35.9 H (25.0-34.0) pg MCHC 36.5 H (32.0-36.0) g/dL Plt Count 94 L (130-400) K/uL MPV 11.4 (9.4-12.4) fL Immature Gran % (Auto) 0.3 % Neut % (Auto) 55.9 % Lymph % (Auto) 24.0 % [place] % (Auto) 12.9 % Eos % (Auto) 5.5 % Baso % (Auto) 1.4 % Neut # (Auto) 2.03 (1.4-6.5) K/uL Lymph # (Auto) 0.87 L (1.2-3.4) K/uL [place] # (Auto) 0.47 (0.24-0.82) K/uL Eos # (Auto) 0.20 (0-0.50) K/uL Baso # (Auto) 0.05 (0-0.2) K/uL Immature Gran # (Auto) 0.01 (0.00-0.02) K/uL PT Cancelled INR Cancelled APTT Cancelled PTT Ratio Cancelled Sodium (136-145) mmol/L Potassium (3.5-5.1) mmol/L Chloride (98-107) mmol/L Carbon Dioxide (21-32) mmol/L Anion Gap (3-11) BUN (6-23) mg/dl Creatinine (0.6-1.4) mg/dl Est Cr Clr Drug Dosing Est GFR ( Amer) ml/min Est GFR (Non-Af Amer) ml/min BUN/Creatinine Ratio (10-20) Glucose (70-99(Fasting)) mg/dl Calcium (8.5-10.1) mg/dl Magnesium (1.7-2.4) mg/dl Total Bilirubin (0.2-1.0) mg/dl Direct Bilirubin (0-0.2) mg/dl AST (13-39) U/L ALT (7-52) U/L Alkaline Phosphatase (34-104) U/L Ammonia Cancelled Total Protein (6.0-8.3) gm/dl Albumin (3.4-5.0) gm/dl Lipase (11-82) U/L Ethyl Alcohol mg/dL (<10.0) mg/dl 11/08/21 11/08/21 11/08/21 Range/Units 13:13 13:13 14:30 WBC (4.8-10.8) K/ul RBC (4.63-6.08) M/uL Hgb (14.0-18.0) g/dl Hct (40.1-51.0) % MCV (80.0-100.0) fL MCH (25.0-34.0) pg MCHC (32.0-36.0) g/dL Plt Count (130-400) K/uL MPV (9.4-12.4) fL Immature Gran % (Auto) % Neut % (Auto) % Lymph % (Auto) % [place] % (Auto) % Eos % (Auto) % Baso % (Auto) % Neut # (Auto) (1.4-6.5) K/uL Lymph # (Auto) (1.2-3.4) K/uL [place] # (Auto) (0.24-0.82) K/uL Eos # (Auto) (0-0.50) K/uL Baso # (Auto) (0-0.2) K/uL Immature Gran # (Auto) (0.00-0.02) K/uL PT 12.7 H INR 1.2 H APTT 26.5 PTT Ratio 1.0 Sodium 138 (136-145) mmol/L Potassium 4.1 (3.5-5.1) mmol/L Chloride 107 (98-107) mmol/L Carbon Dioxide 20 L (21-32) mmol/L Anion Gap 11 (3-11) BUN 13 (6-23) mg/dl Creatinine 0.68 (0.6-1.4) mg/dl Est Cr Clr Drug Dosing Not Reportable Est GFR ( Amer) 119.5 ml/min Est GFR (Non-Af Amer) 103.1 ml/min BUN/Creatinine Ratio 19.1 (10-20) Glucose 109 H (70-99(Fasting)) mg/dl Calcium 9.3 (8.5-10.1) mg/dl Magnesium 1.9 (1.7-2.4) mg/dl Total Bilirubin 1.5 H (0.2-1.0) mg/dl Direct Bilirubin 0.3 H (0-0.2) mg/dl AST 58 H (13-39) U/L ALT 31 (7-52) U/L Alkaline Phosphatase 77 (34-104) U/L Ammonia Total Protein 6.1 (6.0-8.3) gm/dl Albumin 3.4 (3.4-5.0) gm/dl Lipase 29 (11-82) U/L Ethyl Alcohol mg/dL < 10.0 (<10.0) mg/dl 11/08/21 Range/Units 14:30 WBC (4.8-10.8) K/ul RBC (4.63-6.08) M/uL Hgb (14.0-18.0) g/dl Hct (40.1-51.0) % MCV (80.0-100.0) fL MCH (25.0-34.0) pg MCHC (32.0-36.0) g/dL Plt Count (130-400) K/uL MPV (9.4-12.4) fL Immature Gran % (Auto) % Neut % (Auto) % Lymph % (Auto) % [place] % (Auto) % Eos % (Auto) % Baso % (Auto) % Neut # (Auto) (1.4-6.5) K/uL Lymph # (Auto) (1.2-3.4) K/uL [place] # (Auto) (0.24-0.82) K/uL Eos # (Auto) (0-0.50) K/uL Baso # (Auto) (0-0.2) K/uL Immature Gran # (Auto) (0.00-0.02) K/uL PT INR APTT PTT Ratio Sodium (136-145) mmol/L Potassium (3.5-5.1) mmol/L Chloride (98-107) mmol/L Carbon Dioxide (21-32) mmol/L Anion Gap (3-11) BUN (6-23) mg/dl Creatinine (0.6-1.4) mg/dl Est Cr Clr Drug Dosing Est GFR ( Amer) ml/min Est GFR (Non-Af Amer) ml/min BUN/Creatinine Ratio (10-20) Glucose (70-99(Fasting)) mg/dl Calcium (8.5-10.1) mg/dl Magnesium (1.7-2.4) mg/dl Total Bilirubin (0.2-1.0) mg/dl Direct Bilirubin (0-0.2) mg/dl AST (13-39) U/L ALT (7-52) U/L Alkaline Phosphatase (34-104) U/L Ammonia 146.0 H Total Protein (6.0-8.3) gm/dl Albumin (3.4-5.0) gm/dl Lipase (11-82) U/L Ethyl Alcohol mg/dL (<10.0) mg/dl Imaging Data Radiologist's Impression: Head CT 11/08/21 12:57 CT OF THE HEAD WITHOUT CONTRAST CLINICAL HISTORY: Altered mental status. COMPARISON STUDY: Head CT November 01, 2021. CT DOSE: 2683.71 mGycm TECHNIQUE: Helical axial images of the head were obtained without IV contrast. Automated exposure control was utilized for the study. A dose lowering technique was utilized adhering to the principles of ALARA. FINDINGS: This study is mildly compromised by motion artifact. White matter hypodensities are unchanged and favor small vessel disease. No acute intra cranial hemorrhage, midline shift or mass effect is present. The ventricular system is unremarkable. The basal cisterns are patent. No extra-axial collections are present. There are no findings to suggest acute dural sinus thrombosis or acute territorial infarct. No significant calvarial abnormalities are present. Visualized portions of the sinuses and mastoid air cells are clear. IMPRESSION: No acute intracranial findings. No change in appearance of the brain. ACT 112: Negative or not required by law. Electronically signed by: Leonardo Brewster M.D. 11/08/2021 1:[address] 11/08/21 13:[address] DOSE: 484.65 mGycm HISTORY: etoh ams possible fall TECHNIQUE: Multiaxial CT images of the cervical spine were performed and reformatted in the sagittal and coronal plane without the use of contrast. A dose lowering technique was utilized adhering to the principles of ALARA. COMPARISON: Cervical spine CT 09/04/2018. FINDINGS: No fractures. No subluxation. Prevertebral soft tissues and the C1-C2 interval are intact. No pneumothorax. Severe disc space narrowing at C6-C7. IMPRESSION: No fractures within the cervical spine. ACT 112: Negative or not required by law. Electronically signed by: Ángel Wilson M.D. 11/08/2021 2:02 PM ECG Data Indication: + other (confusion) Rate (beats per minute): 69 Rhythm: + normal sinus ECG Intervals/blocks: + Normal QRS, + Normal IL and + Normal QT-c ECG ST segments: + Normal ST segments MDM Narrative Vital signs stable. Labs show an elevated ammonia of 146. Bili 1.5. Alcohol negative. CT of the head negative. Patient be treated with lactulose and admitted to the [facility] hospitalist team spoke with Fidelai Traylor who stated to admit to Dr. Martínez Impression & Plan Hepatic encephalopathy Discharge Plan Visit Data Chief Complaint: Confusion ED Provider: Alessio Roland Discharge Problem: Hepatic encephalopathy Patient Disposition: Admitted As Inpatient Forms Stand Alone Forms: My [facility] Prescriptions Prescriptions: No Action cyanocobalamin (vitamin B-12) 100 mcg tablet 100 mcg PO QAM spironolactone 100 mg tablet 100 mg PO BID Xifaxan 550 mg tablet 550 mg PO BID thiamine mononitrate (vit B1) 100 mg tablet 100 mg PO QAM diclofenac sodium 1 % gel 2 g topical TID PRN (Reason: Pain) fluticasone propionate [Flonase Allergy Relief] 50 mcg/actuation [place] 2 spray INTRANASAL DAILY PRN (Reason: Allergy Symptoms) folic acid 1 mg tablet 1 mg PO DAILY pantoprazole 40 mg tablet,delayed release (DR/EC) 40 mg PO DAILY potassium chloride 20 mEq packet 20 meq PO DAILY torsemide 20 mg tablet 20 mg PO AMHS albuterol sulfate 90 mcg/actuation HFA aerosol inhaler 2 puff INHALATION Q4 PRN (Reason: Shortness Of Breath) duloxetine 60 mg capsule,delayed release(DR/EC) 60 mg PO HS phenazopyridine 200 mg tablet 200 mg PO UD nitrofurantoin monohyd/m-cryst 100 mg capsule 100 mg PO BID Rx Instructions: ordered 11/01/21 take for 7 days oxycodone 5 mg tablet 5 mg PO Q6H PRN (Reason: Pain) valacyclovir [Valtrex] 1 gram Tablet 1,000 mg PO DAILY lactulose 20 gram/30 mL Solution 30 g PO TID 30 Days Qty: 4050 0RF Referrals Referrals: Najma Garcia MD [Primary Care Provider] -
--- NOTE | 2021-11-08 13:37 | CT Scan Report ---
CT OF THE HEAD WITHOUT CONTRAST CLINICAL HISTORY: Altered mental status. COMPARISON STUDY: Head CT November 01, 2021. CT DOSE: 2683.71 mGycm TECHNIQUE: Helical axial images of the head were obtained without IV contrast. Automated exposure con trol was utilized for the study. A dose lowering technique was utilized adhering to the principles o f ALARA. FINDINGS: This study is mildly compromised by motion artifact. White matter hypodensities are unchang ed and favor small vessel disease. No acute intracranial hemorrhage, midline shift or mass effect is present. The ventricular system is unremarkable. The basal cisterns are patent. No extra-axial collec tions are present. There are no findings to suggest acute dural sinus thrombosis or acute territorial infarct. No significant calvarial abnormalities are present. Visualized portions of the sinuses and mastoid air cells are clear. IMPRESSION: No acute intracranial findings. No change in appearance of the brain. ACT 112: Negative or not required by law. Electronically signed by: Leonardo Brewster M.D. 11/08/2021 1:35 PM
--- NOTE | 2021-11-08 14:03 | CT Scan Report ---
CERVICAL SPINE CT CT DOSE: 484.65 mGycm HISTORY: etoh ams possible fall TECHNIQUE: Multiaxial CT images of the cervical spine were performed and reformatted in the sagittal and coronal plane without the use of contrast. A dose lowering technique was utilized adhering to th e principles of ALARA. COMPARISON: Cervical spine CT 09/04/2018. FINDINGS: No fractures. No subluxation. Prevertebral soft tissues and the C1-C2 interval are intact. No pneumothorax. Severe disc space narrowing at C6-C7. IMPRESSION: No fractures within the cervical spine. ACT 112: Negative or not required by law. Electronically signed by: Ángel Wilson M.D. 11/08/2021 2:02 PM
[2021-11-08 14:34] LABS: Basophils # (auto) 0.05 K/uL (0-0.2); Basophils % (auto) 1.4 %; Eosinophils % (auto) 5.5 %; Hematocrit (blood only) 38.1 % (40.1-51.0); Hemoglobin 13.9 g/dl (14.0-18.0); Immature Granulocytes # (auto) 0.01 K/uL (0.00-0.02); Immature Granulocytes % (auto) 0.3 %; Lymphocytes # (auto) 0.87 K/uL (1.2-3.4); Mean Platelet Volume 11.4 fL (9.4-12.4); Monocytes # (auto) 0.47 K/uL (0.24-0.82); Monocytes % (auto) 12.9 %; Neutrophils # (auto) 2.03 K/uL (1.4-6.5); Neutrophils % (auto) 55.9 %; Platelet Count 94 K/uL (130-400); White Blood Count 3.63 K/ul (4.8-10.8)
[2021-11-08 14:45] LABS: Mean Corpuscular Hemoglobin 35.9 pg (25.0-34.0); Mean Corpuscular Hgb Conc 36.5 g/dL (32.0-36.0); Mean Corpuscular Volume 98.4 fL (80.0-100.0)
[2021-11-08 14:47] LABS: Alanine Aminotransferase 31 U/L (7-52); Albumin Level 3.4 gm/dl (3.4-5.0); Alkaline Phosphatase 77 U/L (34-104); Anion Gap 11 (3-11); Aspartate Aminotransferase 58 U/L (13-39); BUN Creatinine Ratio 19.1 (10-20); Bilirubin Direct 0.3 mg/dl (0-0.2); Bilirubin,Total 1.5 mg/dl (0.2-1.0); Blood Urea Nitrogen 13 mg/dl (6-23); Calcium 9.3 mg/dl (8.5-10.1); Carbon Dioxide 20 mmol/L (21-32); Chloride 107 mmol/L (98-107); Est GFR (African American) 119.5 ml/min; Est GFR (Non-African American) 103.1 ml/min; Glucose 109 mg/dl (70-99(Fasting)); Lipase 29 U/L (11-82); Magnesium 1.9 mg/dl (1.7-2.4); Potassium 4.1 mmol/L (3.5-5.1); Sodium 138 mmol/L (136-145); Total Protein 6.1 gm/dl (6.0-8.3)
[2021-11-08] MEDS ORDERED: LORazepam 1 MG TAB SL STA (14:48)
[2021-11-08 15:00] LABS: INR 1.2 (0.9-1.1); Partial Thromboplastin Time 26.5 Seconds (21.0-31.0); Prothrombin Time 12.7 Seconds (9.0-12.0)
[2021-11-08] MEDS ORDERED: LACTULOSE SYRUP 30 GM/45 ML UDP PO STA (15:37)
--- NOTE | 2021-11-08 16:14 | Electrocardiogram Report ---
Test Reason : Blood Pressure : / mmHG Vent. Rate : 069 BPM Atrial Rate : 069 BPM P-R Int : 162 ms QRS Dur : 088 ms QT Int : 430 ms P-R-T Axes : 052 013 078 degrees QTc Int : 460 ms Normal sinus rhythm Low voltage QRS Borderline ECG When compared with ECG of 01-NOV-2021 15:53, No significant change was found Confirmed by Rey Edwards ([id number]) on 11/08/2021 4:14:01 PM Referred By: Confirmed By:Jac Edwards
[2021-11-08 16:27] LABS: Appearance Urine Clear (Clear); Bilirubin Urine Negative (Negative); Blood Urine Negative (Negative); Color Urine Dark Yellow; Glucose Urine UA Negative (Negative); Ketones Urine Negative (Negative); Leukocyte Esterase Urine Negative (Negative); Nitrite Urine Negative (Negative); Protein Urine Negative (Negative); Specific Gravity Urine 1.016 (1.000-1.030); Urobilinogen Urine Negative (Negative)
--- NOTE | 2021-11-08 16:32 | History & Physical Report ---
Date of Service November 08, 2021 Assessment & Plan (1) Hepatic encephalopathy: (2) Cirrhosis: (3) Pancytopenia: (4) Ambulatory dysfunction: (5) Falls: (6) Portal hypertensive gastropathy: (7) Hx of esophageal varices: Plan This is a 61-year-old male who has significant past medical history of Alcoholic cirrhosis, esophageal varices, chronic thrombocytopenia in setting of cirrhosis, HLD, GERD, poor peripheral neuropathy, chronic back pain, history of alcohol abuse, history of cocaine and marijuana use who presents to ED after being found walking in his boots in the bathrobe via EMS. Acute hepatic encephalopathy In setting of ETOH cirrhosis pt appears non compliant with lactulose, 30g given in ED x 1 continue 30g TID, titrate to 2-3 good BM daily monitor NH3 level Consult GI Low-sodium diet Monitor LFTs, BMP Continue rifaximin, aldactone hold torsemide for now Mental status A and O x 1, having freq falls, unsteady gait will give thiamine and folic acid IV for now, transition to PO when more awake/alert B1 level ordered urine drug screen ordered, ETOH negative hold OP oxycodone Cirrhosis: chronic, 2/2 alcohol and reports cessation since 2014. Management as above other than encephalopathy, compensated from a volume stand point no abd pain, benign exam will hold torsemide for now until pt more alert and eating more Pancytopenia 2/2 cirrhosis monitor cbc SARS COV2 + on 11/01 pt w/o respiratory sx, remains asymptomatic should remain on isolation through 11/10 Ambulatory Dysfunction Falls 2/2 encephalopathy consult PT/OT when appropriate Hx of esophageal varices: No bleeding issues currently continue PPI DVT prophylaxis: SCDS for now, monitor plt ct Code Status Full Code PCP: Radha, follows [facility] at home, currently unable to access [facility] to determine recent visit by [facility] at home, ? pt would benefit from rehab post hospitalization to ensure med compliance Dispo: med tele, PT/oT consulted Pt was seen and examined in collaboration with Dr. Martínez, please see addendum History of Present Illness Chief Complaint: Brought to ED 2/2 AMS. Primary Care Provider: Najma Garcia MD This is a 61-year-old male who has significant past medical history of Alcoholic cirrhosis, esophageal varices, chronic thrombocytopenia in setting of cirrhosis, HLD, GERD, poor peripheral neuropathy, chronic back pain, history of alcohol abuse, history of cocaine and marijuana use who presents to ED after being found walking in his boots in the bathrobe via EMS. Per ED report patient stated he had been drinking and that he was unsure if he fell. ROS difficult to obtain due to patient's underlying confusion. He is only alert to self currently. Patient was recently hospitalized 11/01-11/05 secondary to hepatic encephalopathy. He was found to have elevated ammonia level, dehydration, mild rhabdomyolysis and UTI. He also incidentally tested positive for SARS-CoV-2. He was asymptomatic but did remain isolated. His home dose lactulose was increased to 30 g 3 times daily, he was treated appropriately for UTI, urine and blood cultures were negative. He did have an outpatient urine culture prior to admission that was positive and therefore likely partially treated upon admission. Patient was discharged to home in which he lives by himself. He manages his own medications. He states he has not been taking any of his medications specifically his lactulose. He denies any alcohol use and states has been many years. Again ROS very unreliable due to patient's underlying cognition. He did receive 1 dose of lactulose 30 g in ED. He remained hemodynamically stable in ED. Lab work notable for WBC 3.63k, H&H 13.9 and 38.1, platelet 94, BUN 13, creatinine 0.68, total bilirubin 1.5, direct bili 1.3, AST 58, ammonia 146, urinalysis negative, ethyl alcohol negative. Head CT and cervical spine CT were negative. He also received 1 L of IV fluid in ED. Allergies Allergy/AdvReac Type Severity Reaction Status Date / Time No Known Allergies Allergy Verified 11/08/21 16:13 Home Medications Medication Instructions Recorded Confirmed Type diclofenac sodium 1 % topical gel 2 g topical TID PRN Pain 02/29/20 11/08/21 History cyanocobalamin (vitamin B-12) 100 100 mcg PO QAM 04/04/20 11/08/21 History mcg tablet rifaximin 550 mg tablet (Xifaxan) 550 mg PO BID 04/04/20 11/08/21 History spironolactone 100 mg tablet 100 mg PO BID 04/04/20 11/08/21 History thiamine mononitrate (vit B1) 100 100 mg PO QAM 04/04/20 11/08/21 History mg tablet fluticasone propionate 50 2 spray intranasal DAILY PRN 04/16/20 11/08/21 History mcg/actuation nasal Allergy Symptoms spray,suspension (Flonase Allergy Relief) folic acid 1 mg tablet 1 mg PO DAILY 09/19/20 11/08/21 History pantoprazole 40 mg tablet,delayed 40 mg PO DAILY 09/19/20 11/08/21 History release potassium chloride 20 mEq oral 20 meq PO DAILY 09/19/20 11/08/21 History packet albuterol sulfate 90 mcg/actuation 2 puff inhalation Q4 PRN Shortness 04/25/21 11/08/21 History aerosol inhaler Of Breath duloxetine 60 mg capsule,delayed 60 mg PO HS 04/25/21 11/08/21 History release torsemide 20 mg tablet 20 mg PO AMHS 04/25/21 11/08/21 History oxycodone 5 mg tablet 5 mg PO Q6H PRN Pain 11/01/21 11/08/21 History valacyclovir 1 gram tablet 1,000 mg PO DAILY 11/01/21 11/08/21 History (Valtrex) lactulose 20 gram/30 mL oral 30 g (45 mL) PO TID 30 days #4,050 11/05/21 11/08/21 Rx solution mL Past Med/Surg History Medical History Anxiety Chronic back pain Closed fracture of fifth toe of left foot Depression GERD (gastroesophageal reflux disease) Hearing deficit right ear perf eardrum History of alcohol abuse quit drinking 5 years ago History of anemia History of cirrhosis of liver D/T ALCOHOL History of hepatitis C Hx of ascites Hx of encephalopathy See recent admission 04/2020 [facility] Hx of esophageal varices 2/2 chronic portal HTN Hx of gynecomastia Hx of thrombocytopenia Baseline platelets ~ 50-75k. 2/2 cirrhosis. Hypertension Lumbar disc herniation Lumbar radiculopathy Osteoarthritis of right knee Portal hypertensive gastropathy Portal vein thrombosis hx Sacroiliitis Urinary tract infection hx, recurrent Surgical History Fusion of spine February 2019 History of colonoscopy with polypectomy History of esophagogastroduodenoscopy (EGD) History of lumbar spinal fusion (~05/27/20) Dr. 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 Martínez addendum for physical exam findings. Results & Data Results & Data ([facility]) Vital Signs (Past 12 Hours) Vital Signs Temp Pulse Pulse Resp BP BP Pulse Ox 11/08/21 15:41 36.6 C 11/08/21 15:00 65 20 153/81 H 97 11/08/21 13:51 95 11/08/21 12:49 71 15 99 11/08/21 12:41 97 11/08/21 12:41 70 15 113/75 96 O2 Del Method O2 Flow Rate 11/08/21 15:41 11/08/21 15:00 Room Air 11/08/21 13:51 Room Air 11/08/21 12:49 Room Air 11/08/21 12:41 Room Air 0 11/08/21 12:41 Room Air Diagnostic Findings Head CT 11/08/21 12:57 CT OF THE HEAD WITHOUT CONTRAST CLINICAL HISTORY: Altered mental status. COMPARISON STUDY: Head CT November 01, 2021. CT DOSE: 2683.71 mGycm TECHNIQUE: Helical axial images of the head were obtained without IV contrast. Automated exposure control was utilized for the study. A dose lowering technique was utilized adhering to the principles of ALARA. FINDINGS: This study is mildly compromised by motion artifact. White matter hypodensities are unchanged and favor small vessel disease. No acute intracranial hemorrhage, midline shift or mass effect is present. The ventricular system is unremarkable. The basal cisterns are patent. No extra- axial collections are present. There are no findings to suggest acute dural sinus thrombosis or acute territorial infarct. No significant calvarial abnormalities are present. Visualized portions of the sinuses and mastoid air cells are clear. IMPRESSION: No acute intracranial findings. No change in appearance of the brain. ACT 112: Negative or not required by law. Electronically signed by: Leonardo Brewster M.D. 11/08/2021 1:[address] 11/08/21 13:[address] DOSE: 484.65 mGycm HISTORY: etoh ams possible fall TECHNIQUE: Multiaxial CT images of the cervical spine were performed and reformatted in the sagittal and coronal plane without the use of contrast. A dose lowering technique was utilized adhering to the principles of ALARA. COMPARISON: Cervical spine CT 09/04/2018. FINDINGS: No fractures. No subluxation. Prevertebral soft tissues and the C1-C2 interval are intact. No pneumothorax. Severe disc space narrowing at C6-C7. IMPRESSION: No fractures within the cervical spine. ACT 112: Negative or not required by law. Electronically signed by: Ángel Wilson M.D. 11/08/2021 2:02 PM Medications Administered Medication List Sodium Chloride (Nss 1000ml) 1,000 mls @ 125 mls/hr IV .Q8H AMBER Stop: 12/08/21 13:14 Last Admin: 11/08/21 13:45 Dose: 125 mls/hr Documented By: KV Discontinued Medications Lactulose (Lactulose Syrup 30 Gm/45 Ml Udp) 30 gm PO NOW STA Stop: 11/08/21 15:38 Last Admin: 11/08/21 16:19 Dose: 30 gm Documented By: HS Lorazepam (Lorazepam 1 Mg Tab) 1 mg SL NOW STA Stop: 11/08/21 14:49 Last Admin: 11/08/21 15:04 Dose: 1 mg Documented By: KV Ondansetron HCl (Ondansetron Inj 2 Mg/Ml 2 Ml Vial) 4 mg IV NOW STA Stop: 11/08/21 13:04 Last Admin: 11/08/21 13:45 Dose: 4 mg Documented By: KV ECG Rate (beats per minute): 69 Rhythm: normal sinus Additional Comments: qtc 460ms COVID-19 Results Results COVID-19 Adm Lab Results: RBC 3.63 M/uL (4.63-6.08) L 11/08/21 WBC 3.63 K/ul (4.8-10.8) L 11/08/21 Hgb 13.9 g/dl (14.0-18.0) L 11/08/21 Hct 38.1 % (40.1-51.0) L 11/08/21 Plt Count 94 K/uL (130-400) L 11/08/21 Neutrophils (%) (Auto) 55.9 % 11/08/21 Lymphocytes (%) (Auto) 24.0 % 11/08/21 Monocytes # (Auto) 0.47 K/uL (0.24-0.82) 11/08/21 Eosinophils # (Auto) 0.20 K/uL (0-0.50) 11/08/21 Immature Granulocyte % (Auto) 0.3 % 11/08/21 Neutrophils # (Auto) 2.03 K/uL (1.4-6.5) 11/08/21 Lymphocytes # (Auto) 0.87 K/uL (1.2-3.4) L 11/08/21 Monocytes # (Auto) 0.47 K/uL (0.24-0.82) 11/08/21 Eosinophils # (Auto) 0.20 K/uL (0-0.50) 11/08/21 Basophils # (Auto) 0.05 K/uL (0-0.2) 11/08/21 Immature Granulocyte # (Auto) 0.01 K/uL (0.00-0.02) 2 Na 138 mmol/L (136-145) 11/08/21 K 4.1 mmol/L (3.5-5.1) 11/08/21 Cl 107 mmol/L (98-107) 11/08/21 CO2 20 mmol/L (21-32) L 11/08/21 Anion Gap 11 (3-11) 11/08/21 BUN 13 mg/dl (6-23) 11/08/21 Creatinine 0.68 mg/dl (0.6-1.4) 11/08/21 BUN/Creatinine Ratio 19.1 (10-20) 11/08/21 Glucose Level 109 mg/dl (70-99(Fasting)) H 11/08/21 Ca 9.3 mg/dl (8.5-10.1) 11/08/21 Total Bilirubin 1.5 mg/dl (0.2-1.0) H 11/08/21 Direct Bilirubin 0.3 mg/dl (0-0.2) H 11/08/21 AST/SGOT 58 U/L (13-39) H 11/08/21 ALT/SGPT 31 U/L (7-52) 11/08/21 Alkaline Phosphatase 77 U/L (34-104) 11/08/21 Total Protein 6.1 gm/dl (6.0-8.3) 11/08/21 Albumin 3.4 gm/dl (3.4-5.0) 11/08/21 PTT 26.5 Seconds (21.0-31.0) 11/08/21 INR 1.2 (0.9-1.1) H 11/08/21 SARS-CoV-2, RNA, NAAT Pending 11/08/21 Code Status & VTE Plan Code Status FULL CODE, given cognition unable to adequately assess VTE Prophylaxis Plan VTE Prophylaxis will be ordered: Yes Supervising Physician Co-Signing Physician Notes Patient was seen and examined with Fidelia SÁNCHEZ at bedside. Chart reviewed. Case discussed with her and agree with the documentation above with regards to HPI, PE and A/P. In summary, this is a 61 year old male with alcoholic cirrhosis of liver with HE, esophageal varices and thrombocytopenia with recent admission for HE presented again today with HE due to medication non compliance. Very lethargic in the ED with asterixis. However he was able to take po lactulose in ED in our presence. Ammonia elevated at 146. Agree with admission for HE with scheduled lactulose and rifaximin to titrate to 2-3 loose BM daily. Already received ivf in ED. Hold on home diur etics until oral intake improves. No signs on infection. Rest as per the note above. Physical exam General: Lethargic, lying comfortably in bed, not in acute distress, on room air HEENT: EOMI, STEPHANIE, MMM Chest: Decreased breath sounds bilaterally but fair with no wheezes or crackles CVS: Regular rate and rhythm, normal heart sounds, no murmur Abdomen: Soft, mild lower abd tenderness (chronic), not distended, normal bowel sounds Neuro: Awake but lethargic, answers simple questions, follows some commands Extremities: No cyanosis, clubbing or edema. Asterixis + Psych: Calm, cooperative Skin: Right arm with Mepilex
[2021-11-08 18:48] LABS: Polychromasia 1+; RDW Coefficient of Variation 13.8 % (11.5-14.5); RDW Standard Deviation 49.6 fL (36.4-46.3); Red Blood Count 3.87 M/uL (4.63-6.08)
[2021-11-08] MEDS ORDERED: ALUMINUM/MAGNESIUM SUSP 30 ML UDC PO PRN (20:39)
[2021-11-08] MEDS ORDERED: ALBUTEROL HFA 8 GM INHALER INH PRN (20:39)
[2021-11-08] MEDS ORDERED: DICLOFENAC SOD 1% GEL 100 GM TUBE EXT PRN (20:39)
[2021-11-08] MEDS ORDERED: FLUTICASONE PROPIONATE NA SPR 16 GM BTL PRN (20:39)
[2021-11-08] MEDS ORDERED: THIAMINE MONONITRATE 100 MG PO SCH (20:39)
[2021-11-08] MEDS ORDERED: ONDANSETRON INJ 2 MG/ML 2 ML VIAL IV PRN (20:39)
[2021-11-08 20:40] LABS: Amphetamines+Metham, Urine Neg (Neg); Barbiturates, Urine Neg (Neg); Benzodiazepine, Urine Neg (Neg); Cocaine, Urine Neg (Neg); MDMA (Ecstacy), Urine Neg (Neg); Methadone, Urine Neg (Neg); Opiate, Urine Neg (Neg); Phencyclidine, Urine Neg (Neg)
[2021-11-09] MEDS: DULoxetine HCL 60 MG CAP PO SCH ×2 (00:32→20:49)
[2021-11-09] MEDS: THIAMINE HCL 100 MG in SYRINGE 9 ML IV SCH ×2 (00:32→10:07)
[2021-11-09] MEDS: rifAXIMin 550 MG TABLET PO SCH ×3 (00:32→20:49)
[2021-11-09] MEDS: SPIRONOLACTONE 100 MG TAB PO SCH ×3 (00:32→20:50)
[2021-11-09] MEDS: LACTULOSE SYRUP 30 GM/45 ML UDP PO SCH ×4 (00:32→20:49)
[2021-11-09] MEDS: FOLIC ACID 1 MG in SYRINGE 9.8 ML IV SCH ×2 (00:33→10:06)
[2021-11-09 06:11] LABS: Basophils # (auto) 0.05 K/uL (0-0.2); Basophils % (auto) 1.6 %; Eosinophils % (auto) 6.3 %; Hematocrit (blood only) 37.1 % (40.1-51.0); Lymphocytes % (auto) 31.4 %; Monocytes # (auto) 0.46 K/uL (0.24-0.82); Monocytes % (auto) 14.5 %; Neutrophils # (auto) 1.47 K/uL (1.4-6.5); Neutrophils % (auto) 46.2 %; Platelet Count 66 K/uL (130-400); White Blood Count 3.18 K/ul (4.8-10.8)
--- NOTE | 2021-11-09 06:28 | Gastrointestinal Consultation ---
Date of Consultation November 09, 2021 Assessment & Plan (1) Acute hepatic encephalopathy: 61 years old male with history of alcoholic cirrhosis and polysubstance abuse (abstinent for years), MELD 10, HE and varices, who presented w altered mental status, concern for medication noncompliance - Blood culture - Urine culture - Head CT complete - Chest XR - ABD US, if ascites, arrange diagnostic paracentesis - Continue Lactulose and Xifaxan as dosed. Titrate Lactulose for goal BM 3-5x a day - Continue Thiamin and Folic acid - When more alert, no contraindication to diet, low sodium - Daily MELD labs Thank you for allowing us to participate in the care of this patient. Please call with any acute changes, questions or concerns. Please see addendum below with additional recommendation from my supervising physician. Supervising Physician Co-Signing Physician Notes I have personally seen and examined the patient with BECKY Bertrand. Her note reflects my exam and findings. I agree with her impression and plan. More alert and responsive. Titrate laxatives to 3-5 BMs daily. Harjinder Napoles M.D. History of Present Illness Reason for Consultation: [facility] Requesting Physician: Tanya Attending Physician: Agus Martínez MD History of Present Illness 61 year old male with history ofhyperlipidemia, neuropathy, alcoholic cirrhosis, polysubstance abuse who presented to the ED with altered mental status, admitted w/ hyperammonia. Pt was seen and evaluated, chart reviewed. He awakens to name, but is a poor historian and remains confused. Unclear when last known well time was or how many doses of lactulose/xifaxan. MELD: [address] 2021: No acute intracranial findings. No change in appearance of the brain Allergies Allergy/AdvReac Type Severity Reaction Status Date / Time No Known Allergies Allergy Verified 11/08/21 16:13 Home Medications Medication Instructions Recorded Confirmed Type diclofenac sodium 1 % topical gel 2 g topical TID PRN Pain 02/29/20 11/08/21 History cyanocobalamin (vitamin B-12) 100 100 mcg PO QAM 04/04/20 11/08/21 History mcg tablet rifaximin 550 mg tablet (Xifaxan) 550 mg PO BID 04/04/20 11/08/21 History spironolactone 100 mg tablet 100 mg PO BID 04/04/20 11/08/21 History thiamine mononitrate (vit B1) 100 100 mg PO QAM 04/04/20 11/08/21 History mg tablet fluticasone propionate 50 2 spray intranasal DAILY PRN 04/16/20 11/08/21 History mcg/actuation nasal Allergy Symptoms spray,suspension (Flonase Allergy Relief) folic acid 1 mg tablet 1 mg PO DAILY 09/19/20 11/08/21 History pantoprazole 40 mg tablet,delayed 40 mg PO DAILY 09/19/20 11/08/21 History release potassium chloride 20 mEq oral 20 meq PO DAILY 09/19/20 11/08/21 History packet albuterol sulfate 90 mcg/actuation 2 puff inhalation Q4 PRN Shortness 04/25/21 11/08/21 History aerosol inhaler Of Breath duloxetine 60 mg capsule,delayed 60 mg PO HS 04/25/21 11/08/21 History release torsemide 20 mg tablet 20 mg PO AMHS 04/25/21 11/08/21 History oxycodone 5 mg tablet 5 mg PO Q6H PRN Pain 11/01/21 11/08/21 History valacyclovir 1 gram tablet 1,000 mg PO DAILY 11/01/21 11/08/21 History (Valtrex) lactulose 20 gram/30 mL oral 30 g (45 mL) PO TID 30 days #4,050 11/05/21 11/08/21 Rx solution mL Patient History Medical History Anxiety Chronic back pain Closed fracture of fifth toe of left foot Depression GERD (gastroesophageal reflux disease) Hearing deficit right ear perf eardrum History of alcohol abuse quit drinking 5 years ago History of anemia History of cirrhosis of liver D/T ALCOHOL History of hepatitis C Hx of ascites Hx of encephalopathy See recent admission 04/2020 [facility] Hx of esophageal varices 2/2 chronic portal HTN Hx of gynecomastia Hx of thrombocytopenia Baseline platelets ~ 50-75k. 2/2 cirrhosis. Hypertension Lumbar disc herniation Lumbar radiculopathy Osteoarthritis of right knee Portal hypertensive gastropathy Portal vein thrombosis hx Sacroiliitis Urinary tract infection hx, recurrent Surgical History Fusion of spine February 2019 History of colonoscopy with polypectomy History of esophagogastroduodenoscopy (EGD) History of lumbar spinal fusion (~05/27/20) Dr. Bauer @ [facility] History of tooth extraction all teeth removed History of total right hip arthroplasty 2018 Hx of decompression of ulnar nerve RIGHT Family History Father Diabetes Other No family history of adverse response to anesthesia Social History Smoking Status: Former smoker Tobacco Type: Cigarettes Second Hand Exposure: No (Not able to obtain due to patient confusion); Do You Dip or Chew Tobacco: No (Not able to obtain due to patient confusion); Hx Alcohol Use: No Hx Substance Use: No Preferred Language: Frisian Communication Ability: Effective Communication Ability Comment: able to follow commands, labile in understanding real life concepts Computer Terminal Operator Required: No Beliefs That Will Affect Care: None marital status: / Current Living Situation: Other Current Living Situation Comment: Unable to obtain How many Children do You have: 3 Other Information That Helps Us Care for You: No Feels Safe at Home: Yes Assistive Devices: Walker Review of Systems Review of Systems: All systems reviewed & are unremarkable except as noted in HPI & below Physical Exam Constitutional: WD/WN, vitals as above Eyes: PERRL, conjunctivae normal, anicteric sclerae Neck: trachea midline Respiratory: normal respiratory effort; no respiratory distress, no labored breathing, no retractions and does not use accessory muscles Cardiovascular: Rate/Rhythm: regular rate and regular rhythm Gastrointestinal (Abdomen): Inspection/Auscultation: normal bowel sounds Percussion/Palpation: abdomen soft; abdomen nontender, no guarding and abdomen not rigid Skin: no rashes, warm and dry Results & Data ([facility]) Vital Signs (Past 12 Hours) Vital Signs Pulse Resp BP Pulse Ox O2 Del Method 11/08/21 21:18 65 13 164/84 H 96 Room Air 11/08/21 19:37 70 15 118/82 92 Room Air Laboratory Results 11/09/21 11/09/21 11/09/21 Range/Units 05:55 05:48 05:48 WBC 3.18 L (4.8-10.8) K/ul RBC Pending (4.63-6.08) M/uL Hgb 13.0 L (14.0-18.0) g/dl Hct 37.1 L (40.1-51.0) % MCV Pending (80.0-100.0) fL MCH Pending (25.0-34.0) pg MCHC Pending (32.0-36.0) g/dL RDW Std Deviation (36.4-46.3) fL RDW Coeff of Abhijit (11.5-14.5) % Plt Count 66 L (130-400) K/uL MPV 10.0 (9.4-12.4) fL Immature Gran % (Auto) 0.0 % Neut % (Auto) 46.2 % Lymph % (Auto) 31.4 % [place] % (Auto) 14.5 % Eos % (Auto) 6.3 % Baso % (Auto) 1.6 % Neut # (Auto) 1.47 (1.4-6.5) K/uL Lymph # (Auto) 1.00 L (1.2-3.4) K/uL [place] # (Auto) 0.46 (0.24-0.82) K/uL Eos # (Auto) 0.20 (0-0.50) K/uL Baso # (Auto) 0.05 (0-0.2) K/uL Immature Gran # (Auto) 0.00 (0.00-0.02) K/uL Polychromasia PT INR APTT PTT Ratio Sodium Pending (136-145) mmol/L Potassium Pending (3.5-5.1) mmol/L Chloride Pending (98-107) mmol/L Carbon Dioxide Pending (21-32) mmol/L Anion Gap Pending (3-11) BUN Pending (6-23) mg/dl Creatinine Pending (0.6-1.4) mg/dl Est Cr Clr Drug Dosing Pending Est GFR ( Amer) Pending ml/min Est GFR (Non-Af Amer) Pending ml/min BUN/Creatinine Ratio Pending (10-20) Glucose Pending (70-99(Fasting)) mg/dl Calcium Pending (8.5-10.1) mg/dl Magnesium Pending (1.7-2.4) mg/dl Total Bilirubin Pending (0.2-1.0) mg/dl Direct Bilirubin (0-0.2) mg/dl AST Pending (13-39) U/L ALT Pending (7-52) U/L Alkaline Phosphatase Pending (34-104) U/L Ammonia Pending Total Protein Pending (6.0-8.3) gm/dl Albumin Pending (3.4-5.0) gm/dl Globulin Pending Albumin/Globulin Ratio Pending Lipase (11-82) U/L Whole Bld Vitamin B1 Urine Color Urine Appearance (Clear) Urine pH (4.5-7.5) Ur Specific [place] (1.000-1.030) Urine Protein (Negative) Urine Glucose (UA) (Negative) Urine Ketones (Negative) Urine Blood (Negative) Urine Nitrite (Negative) Urine Bilirubin (Negative) Urine Urobilinogen (Negative) Ur Leukocyte Esterase (Negative) Urine Opiates Screen (Neg) Ur Methadone, Qual (Neg) Urine Barbiturates (Neg) Ur Phencyclidine (PCP) (Neg) U Amphetamin/Meth Scrn (Neg) MDMA (Ecstasy) Screen (Neg) U Benzodiazepines Scrn (Neg) Ur Cocaine Metabolite (Neg) U Marijuana (THC) Screen (Neg) Ethyl Alcohol mg/dL (<10.0) mg/dl SARS-CoV-2, RNA, NAAT (NEGATIVE) 11/09/21 11/08/21 11/08/21 Range/Units 05:48 16:06 16:06 WBC (4.8-10.8) K/ul RBC (4.63-6.08) M/uL Hgb (14.0-18.0) g/dl Hct (40.1-51.0) % MCV (80.0-100.0) fL MCH (25.0-34.0) pg MCHC (32.0-36.0) g/dL RDW Std Deviation (36.4-46.3) fL RDW Coeff of Abhijit (11.5-14.5) % Plt Count (130-400) K/uL MPV (9.4-12.4) fL Immature Gran % (Auto) % Neut % (Auto) % Lymph % (Auto) % [place] % (Auto) % Eos % (Auto) % Baso % (Auto) % Neut # (Auto) (1.4-6.5) K/uL Lymph # (Auto) (1.2-3.4) K/uL [place] # (Auto) (0.24-0.82) K/uL Eos # (Auto) (0-0.50) K/uL Baso # (Auto) (0-0.2) K/uL Immature Gran # (Auto) (0.00-0.02) K/uL Polychromasia PT INR APTT PTT Ratio Sodium (136-145) mmol/L Potassium (3.5-5.1) mmol/L Chloride (98-107) mmol/L Carbon Dioxide (21-32) mmol/L Anion Gap (3-11) BUN (6-23) mg/dl Creatinine (0.6-1.4) mg/dl Est Cr Clr Drug Dosing Est GFR ( Amer) ml/min Est GFR (Non-Af Amer) ml/min BUN/Creatinine Ratio (10-20) Glucose (70-99(Fasting)) mg/dl Calcium (8.5-10.1) mg/dl Magnesium (1.7-2.4) mg/dl Total Bilirubin (0.2-1.0) mg/dl Direct Bilirubin (0-0.2) mg/dl AST (13-39) U/L ALT (7-52) U/L Alkaline Phosphatase (34-104) U/L Ammonia Total Protein (6.0-8.3) gm/dl Albumin (3.4-5.0) gm/dl Globulin Albumin/Globulin Ratio Lipase (11-82) U/L Whole Bld Vitamin B1 Pending Urine Color Dark Yellow Urine Appearance Clear (Clear) Urine pH 7.0 (4.5-7.5) Ur Specific [place] 1.016 (1.000-1.030) Urine Protein Negative (Negative) Urine Glucose (UA) Negative (Negative) Urine Ketones Negative (Negative) Urine Blood Negative (Negative) Urine Nitrite Negative (Negative) Urine Bilirubin Negative (Negative) Urine Urobilinogen Negative (Negative) Ur Leukocyte Esterase Negative (Negative) Urine Opiates Screen Neg (Neg) Ur Methadone, Qual Neg (Neg) Urine Barbiturates Neg (Neg) Ur Phencyclidine (PCP) Neg (Neg) U Amphetamin/Meth Scrn Neg (Neg) MDMA (Ecstasy) Screen Neg (Neg) U Benzodiazepines Scrn Neg (Neg) Ur Cocaine Metabolite Neg (Neg) U Marijuana (THC) Screen Neg (Neg) Ethyl Alcohol mg/dL (<10.0) mg/dl SARS-CoV-2, RNA, NAAT (NEGATIVE) 11/08/21 11/08/21 11/08/21 Range/Units 16:04 14:30 14:30 WBC (4.8-10.8) K/ul RBC (4.63-6.08) M/uL Hgb (14.0-18.0) g/dl Hct (40.1-51.0) % MCV (80.0-100.0) fL MCH (25.0-34.0) pg MCHC (32.0-36.0) g/dL RDW Std Deviation (36.4-46.3) fL RDW Coeff of Abhijit (11.5-14.5) % Plt Count (130-400) K/uL MPV (9.4-12.4) fL Immature Gran % (Auto) % Neut % (Auto) % Lymph % (Auto) % [place] % (Auto) % Eos % (Auto) % Baso % (Auto) % Neut # (Auto) (1.4-6.5) K/uL Lymph # (Auto) (1.2-3.4) K/uL [place] # (Auto) (0.24-0.82) K/uL Eos # (Auto) (0-0.50) K/uL Baso # (Auto) (0-0.2) K/uL Immature Gran # (Auto) (0.00-0.02) K/uL Polychromasia PT 12.7 H INR 1.2 H APTT 26.5 PTT Ratio 1.0 Sodium (136-145) mmol/L Potassium (3.5-5.1) mmol/L Chloride (98-107) mmol/L Carbon Dioxide (21-32) mmol/L Anion Gap (3-11) BUN (6-23) mg/dl Creatinine (0.6-1.4) mg/dl Est Cr Clr Drug Dosing Est GFR ( Amer) ml/min Est GFR (Non-Af Amer) ml/min BUN/Creatinine Ratio (10-20) Glucose (70-99(Fasting)) mg/dl Calcium (8.5-10.1) mg/dl Magnesium (1.7-2.4) mg/dl Total Bilirubin (0.2-1.0) mg/dl Direct Bilirubin (0-0.2) mg/dl AST (13-39) U/L ALT (7-52) U/L Alkaline Phosphatase (34-104) U/L Ammonia 146.0 H Total Protein (6.0-8.3) gm/dl Albumin (3.4-5.0) gm/dl Globulin Albumin/Globulin Ratio Lipase (11-82) U/L Whole Bld Vitamin B1 Urine Color Urine Appearance (Clear) Urine pH (4.5-7.5) Ur Specific [place] (1.000-1.030) Urine Protein (Negative) Urine Glucose (UA) (Negative) Urine Ketones (Negative) Urine Blood (Negative) Urine Nitrite (Negative) Urine Bilirubin (Negative) Urine Urobilinogen (Negative) Ur Leukocyte Esterase (Negative) Urine Opiates Screen (Neg) Ur Methadone, Qual (Neg) Urine Barbiturates (Neg) Ur Phencyclidine (PCP) (Neg) U Amphetamin/Meth Scrn (Neg) MDMA (Ecstasy) Screen (Neg) U Benzodiazepines Scrn (Neg) Ur Cocaine Metabolite (Neg) U Marijuana (THC) Screen (Neg) Ethyl Alcohol mg/dL (<10.0) mg/dl SARS-CoV-2, RNA, NAAT NEGATIVE (NEGATIVE) 11/08/21 11/08/21 11/08/21 Range/Units 13:13 13:13 13:12 WBC (4.8-10.8) K/ul RBC (4.63-6.08) M/uL Hgb (14.0-18.0) g/dl Hct (40.1-51.0) % MCV (80.0-100.0) fL MCH (25.0-34.0) pg MCHC (32.0-36.0) g/dL RDW Std Deviation (36.4-46.3) fL RDW Coeff of Abhijit (11.5-14.5) % Plt Count (130-400) K/uL MPV (9.4-12.4) fL Immature Gran % (Auto) % Neut % (Auto) % Lymph % (Auto) % [place] % (Auto) % Eos % (Auto) % Baso % (Auto) % Neut # (Auto) (1.4-6.5) K/uL Lymph # (Auto) (1.2-3.4) K/uL [place] # (Auto) (0.24-0.82) K/uL Eos # (Auto) (0-0.50) K/uL Baso # (Auto) (0-0.2) K/uL Immature Gran # (Auto) (0.00-0.02) K/uL Polychromasia PT INR APTT PTT Ratio Sodium 138 (136-145) mmol/L Potassium 4.1 (3.5-5.1) mmol/L Chloride 107 (98-107) mmol/L Carbon Dioxide 20 L (21-32) mmol/L Anion Gap 11 (3-11) BUN 13 (6-23) mg/dl Creatinine 0.68 (0.6-1.4) mg/dl Est Cr Clr Drug Dosing Not Reportable Est GFR ( Amer) 119.5 ml/min Est GFR (Non-Af Amer) 103.1 ml/min BUN/Creatinine Ratio 19.1 (10-20) Glucose 109 H (70-99(Fasting)) mg/dl Calcium 9.3 (8.5-10.1) mg/dl Magnesium 1.9 (1.7-2.4) mg/dl Total Bilirubin 1.5 H (0.2-1.0) mg/dl Direct Bilirubin 0.3 H (0-0.2) mg/dl AST 58 H (13-39) U/L ALT 31 (7-52) U/L Alkaline Phosphatase 77 (34-104) U/L Ammonia Cancelled Total Protein 6.1 (6.0-8.3) gm/dl Albumin 3.4 (3.4-5.0) gm/dl Globulin Albumin/Globulin Ratio Lipase 29 (11-82) U/L Whole Bld Vitamin B1 Urine Color Urine Appearance (Clear) Urine pH (4.5-7.5) Ur Specific [place] (1.000-1.030) Urine Protein (Negative) Urine Glucose (UA) (Negative) Urine Ketones (Negative) Urine Blood (Negative) Urine Nitrite (Negative) Urine Bilirubin (Negative) Urine Urobilinogen (Negative) Ur Leukocyte Esterase (Negative) Urine Opiates Screen (Neg) Ur Methadone, Qual (Neg) Urine Barbiturates (Neg) Ur Phencyclidine (PCP) (Neg) U Amphetamin/Meth Scrn (Neg) MDMA (Ecstasy) Screen (Neg) U Benzodiazepines Scrn (Neg) Ur Cocaine Metabolite (Neg) U Marijuana (THC) Screen (Neg) Ethyl Alcohol mg/dL < 10.0 (<10.0) mg/dl SARS-CoV-2, RNA, NAAT (NEGATIVE) 11/08/21 11/08/21 Range/Units 12:00 12:00 WBC 3.63 L (4.8-10.8) K/ul RBC 3.87 L (4.63-6.08) M/uL Hgb 13.9 L (14.0-18.0) g/dl Hct 38.1 L (40.1-51.0) % MCV 98.4 (80.0-100.0) fL MCH 35.9 H (25.0-34.0) pg MCHC 36.5 H (32.0-36.0) g/dL RDW Std Deviation 49.6 H (36.4-46.3) fL RDW Coeff of Abhijit 13.8 (11.5-14.5) % Plt Count 94 L (130-400) K/uL MPV 11.4 (9.4-12.4) fL Immature Gran % (Auto) 0.3 % Neut % (Auto) 55.9 % Lymph % (Auto) 24.0 % [place] % (Auto) 12.9 % Eos % (Auto) 5.5 % Baso % (Auto) 1.4 % Neut # (Auto) 2.03 (1.4-6.5) K/uL Lymph # (Auto) 0.87 L (1.2-3.4) K/uL [place] # (Auto) 0.47 (0.24-0.82) K/uL Eos # (Auto) 0.20 (0-0.50) K/uL Baso # (Auto) 0.05 (0-0.2) K/uL Immature Gran # (Auto) 0.01 (0.00-0.02) K/uL Polychromasia 1+ PT Cancelled INR Cancelled APTT Cancelled PTT Ratio Cancelled Sodium (136-145) mmol/L Potassium (3.5-5.1) mmol/L Chloride (98-107) mmol/L Carbon Dioxide (21-32) mmol/L Anion Gap (3-11) BUN (6-23) mg/dl Creatinine (0.6-1.4) mg/dl Est Cr Clr Drug Dosing Est GFR ( Amer) ml/min Est GFR (Non-Af Amer) ml/min BUN/Creatinine Ratio (10-20) Glucose (70-99(Fasting)) mg/dl Calcium (8.5-10.1) mg/dl Magnesium (1.7-2.4) mg/dl Total Bilirubin (0.2-1.0) mg/dl Direct Bilirubin (0-0.2) mg/dl AST (13-39) U/L ALT (7-52) U/L Alkaline Phosphatase (34-104) U/L Ammonia Total Protein (6.0-8.3) gm/dl Albumin (3.4-5.0) gm/dl Globulin Albumin/Globulin Ratio Lipase (11-82) U/L Whole Bld Vitamin B1 Urine Color Urine Appearance (Clear) Urine pH (4.5-7.5) Ur Specific [place] (1.000-1.030) Urine Protein (Negative) Urine Glucose (UA) (Negative) Urine Ketones (Negative) Urine Blood (Negative) Urine Nitrite (Negative) Urine Bilirubin (Negative) Urine Urobilinogen (Negative) Ur Leukocyte Esterase (Negative) Urine Opiates Screen (Neg) Ur Methadone, Qual (Neg) Urine Barbiturates (Neg) Ur Phencyclidine (PCP) (Neg) U Amphetamin/Meth Scrn (Neg) MDMA (Ecstasy) Screen (Neg) U Benzodiazepines Scrn (Neg) Ur Cocaine Metabolite (Neg) U Marijuana (THC) Screen (Neg) Ethyl Alcohol mg/dL (<10.0) mg/dl SARS-CoV-2, RNA, NAAT (NEGATIVE)
[2021-11-09 06:37] LABS: Mean Corpuscular Hemoglobin 35.7 pg (25.0-34.0); Mean Corpuscular Volume 101.9 fL (80.0-100.0); RDW Coefficient of Variation 14.1 % (11.5-14.5); RDW Standard Deviation 53.2 fL (36.4-46.3); Red Blood Count 3.64 M/uL (4.63-6.08)
[2021-11-09 06:45] LABS: Alanine Aminotransferase 30 U/L (7-52); Albumin Globulin Ratio 1.3 (0.9-2); Albumin Level 3.1 gm/dl (3.4-5.0); Alkaline Phosphatase 67 U/L (34-104); Anion Gap 6 (3-11); Aspartate Aminotransferase 53 U/L (13-39); BUN Creatinine Ratio 16.7 (10-20); Bilirubin,Total 1.9 mg/dl (0.2-1.0); Blood Urea Nitrogen 12 mg/dl (6-23); Calcium 8.8 mg/dl (8.5-10.1); Carbon Dioxide 22 mmol/L (21-32); Chloride 112 mmol/L (98-107); Est GFR (African American) 116.7 ml/min; Est GFR (Non-African American) 100.7 ml/min; Globulin 2.3 gm/dl (2.5-4.0); Glucose 139 mg/dl (70-99(Fasting)); Magnesium 1.8 mg/dl (1.7-2.4); Potassium 3.6 mmol/L (3.5-5.1); Sodium 140 mmol/L (136-145); Total Protein 5.4 gm/dl (6.0-8.3)
[2021-11-09] MEDS ORDERED: FOLIC ACID 1 MG TAB PO SCH (09:00)
[2021-11-09] MEDS: valACYclovir HCL 500 MG TABLET PO SCH (10:41)
[2021-11-09] MEDS: CYANOCOBALAMIN (B-12) 100 MCG TABLET PO SCH (10:41)
[2021-11-09] MEDS: POTASSIUM CHLORIDE PWD 20 MEQ PACK PO SCH (10:42)
[2021-11-09] MEDS: PANTOprazole 40 MG TAB PO SCH (10:42)
--- NOTE | 2021-11-09 14:12 | Hospitalist Progress Note ---
Date of Service November 09, 2021 Assessment & Plan (1) Hepatic encephalopathy: (2) Cirrhosis: (3) Pancytopenia: (4) Ambulatory dysfunction: (5) Falls: (6) Portal hypertensive gastropathy: (7) Hx of esophageal varices: Plan This is a 61-year-old male who has significant past medical history of Alcoholic cirrhosis, esophageal varices, chronic thrombocytopenia in setting of cirrhosis, HLD, GERD, poor peripheral neuropathy, chronic back pain, history of alcohol abuse, history of cocaine and marijuana use who presents to ED after being found walking in his boots in the bathrobe via EMS. Acute hepatic encephalopathy In setting of ETOH cirrhosis pt appears non compliant with lactulose, 30g given in ED x 1 continue 30g TID, titrate to 2-3 good BM daily Ammonia level is elevated at 146.0 and has been improving as of this morning at 103.0 on 11/09/2021 Appreciate GI input and recommendation Continue rifaximin, aldactone Hold torsemide for now Has been getting thiamine and folic acid IV for now, transition to PO when more awake/alert urine drug screen -negative, ETOH negative Hold OP oxycodone Clinically much better and will continue current management Cirrhosis: chronic, 2/2 alcohol and reports cessation since 2014. Management as above other than encephalopathy, compensated from a volume stand point no abd pain, benign exam will hold torsemide for now until pt more alert and eating more Appreciate GI input-has a MELD score of 10 Pancytopenia 2/2 cirrhosis monitor cbc SARS COV2 + on 11/01 pt w/o respiratory sx, remains asymptomatic should remain on isolation through 11/10 Ambulatory Dysfunction Falls 2/2 encephalopathy consult PT/OT when appropriate Hx of esophageal varices: No bleeding issues currently continue PPI DVT prophylaxis: SCDS for now, monitor plt ct Code Status Full Code PCP: Radha, follows [facility] at home, currently unable to access [facility] to determine recent visit by [facility] home, ? pt would benefit from rehab post hospitalization to ensure med compliance Dispo: med tele, PT/oT consulted Admission and Anticipated Discharge Date Admission Date: November 08, 2021 Subjective 11/09/2021 The patient was seen and examined in medical telemetry unit History of alcoholic cirrhosis and was admitted with hepatic encephalopathy Has been feeling much better and denies any confusion during examination Remains generally weak and lethargic Review of Systems Review of Systems: All systems reviewed and are unremarkable except as noted below Physical Exam Physical Exam: Sitting at the edge of the bed without any acute distress Constitutional: well developed, well nourished and average body habitus; not ill appearing Eyes: PERRL, conjunctivae normal, anicteric sclerae ENMT: external ear and nose normal, oropharynx normal Neck: trachea midline, no thyromegaly Respiratory: no respiratory distress Auscultation: + diminished lung sounds and + crackles (Minimal crackles at the bases) Cardiovascular: Rate/Rhythm: regular rate and regular rhythm; not tachycardic Heart Sounds: normal S1 and normal S2; no murmur Extremities: + edema (Trace edema bilaterally) Gastrointestinal (Abdomen): Inspection/Auscultation: normal bowel sounds; abdomen not distended Percussion/Palpation: abdomen soft; abdomen nontender Musculoskeletal: No acute arthritis in any joint Neurologic: Alert, awake and oriented x3. Generally weak but no focal neurodeficit Lymphatic: no cervical or axillary lymphadenopathy Results & Data Results & Data ([facility]) Vital Signs (Past 12 Hours) Vital Signs Temp Pulse Resp BP Pulse Ox O2 Del Method 11/09/21 12:00 36.6 C 71 20 144/75 H 98 Room Air 11/09/21 08:30 Room Air 11/09/21 08:59 36.5 C 66 18 135/76 95 Room Air Laboratory Results Short CBC 11/08/21 11/09/21 Range/Units 12:00 05:48 WBC 3.63 L 3.18 L (4.8-10.8) K/ul Hgb 13.9 L 13.0 L (14.0-18.0) g/dl Hct 38.1 L 37.1 L (40.1-51.0) % Plt Count 94 L 66 L (130-400) K/uL BMP 11/08/21 11/09/21 13:13 05:48 Sodium 138 140 Potassium 4.1 3.6 Chloride 107 112 H Carbon Dioxide 20 L 22 BUN 13 12 Creatinine 0.68 0.72 Glucose 109 H 139 H Calcium 9.3 8.8 Liver Function 11/08/21 11/09/21 Range/Units 13:13 05:48 Total Bilirubin 1.5 H 1.9 H (0.2-1.0) mg/dl Direct Bilirubin 0.3 H (0-0.2) mg/dl AST 58 H 53 H (13-39) U/L ALT 31 30 (7-52) U/L Alkaline Phosphatase 77 67 (34-104) U/L Albumin 3.4 3.1 L (3.4-5.0) gm/dl Urine 11/08/21 Range/Units 16:06 Urine Color Dark Yellow Urine Appearance Clear (Clear) Urine pH 7.0 (4.5-7.5) Ur Specific [place] 1.016 (1.000-1.030) Urine Protein Negative (Negative) Urine Glucose (UA) Negative (Negative) Medications Administered Current Inpatient Medications Al Hydrox/Mg Hydrox/Simethicone (Aluminum/Magnesium Susp 30 Ml Udc) 30 ml PO Q6H PRN PRN Reason: Dyspepsia Stop: 12/08/21 20:38 Albuterol (Albuterol Hfa 8 Gm Inhaler) 2 puffs INH Q4 PRN PRN Reason: Shortness Of Breath Stop: 12/08/21 20:38 Cyanocobalamin (Cyanocobalamin (B-12) 100 Mcg Tablet) [facility] Stop: 12/09/21 08:59 Last Admin: 11/09/21 10:41 Dose: 100 mcg Diclofenac Sodium (Diclofenac Sod 1% Gel 100 Gm Tube) 2 gm EXT TID PRN; Protocol PRN Reason: Pain Stop: 12/08/21 20:38 Duloxetine HCl (Duloxetine Hcl 60 Mg Cap) 60 mg PO [facility] Stop: 12/08/21 20:59 Last Admin: 11/09/21 00:32 Dose: 60 mg Fluticasone Propionate (Fluticasone Propionate Na Spr 16 Gm Btl) 2 sprays NA DAILY PRN PRN Reason: Allergy Symptoms Stop: 12/08/21 20:38 Thiamine HCl 100 mg/ Syringe 10 mls @ 2 mls/[facility] Stop: 12/08/21 21:14 Last Admin: 11/09/21 10:07 Dose: 2 mls/min Folic Acid 1 mg/ Syringe 10 mls @ 5 mls/[facility] Stop: 12/08/21 21:14 Last Admin: 11/09/21 10:06 Dose: 5 mls/min Lactulose (Lactulose Syrup 30 Gm/45 Ml Udp) 30 gm PO TID [facility] Stop: 12/08/21 20:59 Last Admin: 11/09/21 08:45 Dose: 30 gm Miscellaneous (Remove Nicoderm Patch) 1 each N/A DAILY@0859 [facility] Stop: 12/10/21 08:58 Nicotine (Nicotine 14 Mg/24 Hr Patch) 14 mg TD QAM [facility] Stop: 12/09/21 14:14 Ondansetron HCl (Ondansetron Inj 2 Mg/Ml 2 Ml Vial) 4 mg IV Q6H PRN PRN Reason: Nausea Stop: 12/08/21 20:38 Pantoprazole Sodium (Pantoprazole 40 Mg Tab) 40 mg PO DAILY AMBER Stop: 12/09/21 08:59 Last Admin: 11/09/21 10:42 Dose: 40 mg Potassium Chloride (Potassium Chloride Pwd 20 Meq Pack) 20 meq PO DAILY [facility]BER Stop: 12/09/21 08:59 Last Admin: 11/09/21 10:42 Dose: 20 meq Rifaximin (Rifaximin 550 Mg Tablet) 550 mg PO BID AMBER Stop: 12/08/21 20:59 Last Admin: 11/09/21 10:42 Dose: 550 mg Spironolactone (Spironolactone 100 Mg Tab) 100 mg PO BID AMBER Stop: 12/08/21 20:59 Last Admin: 11/09/21 10:42 Dose: 100 mg Valacyclovir HCl (Valacyclovir Hcl 500 Mg Tablet) 1,000 mg PO DAILY AMBER Stop: 12/09/21 08:59 Last Admin: 11/09/21 10:41 Dose: 1,000 mg
[2021-11-09] MEDS: NICOTINE 14 MG/24 HR PATCH TD SCH (15:34)
[2021-11-09] MEDS: NICOTINE POLACRILEX 2 MG GUM MT SCH (18:16)
[2021-11-10] MEDS: THIAMINE HCL 100 MG in SYRINGE 9 ML IV SCH (08:23)
[2021-11-10] MEDS: rifAXIMin 550 MG TABLET PO SCH ×2 (08:24→21:39)
[2021-11-10] MEDS: CYANOCOBALAMIN (B-12) 100 MCG TABLET PO SCH (08:24)
[2021-11-10] MEDS: PANTOprazole 40 MG TAB PO SCH (08:24)
[2021-11-10] MEDS: NICOTINE POLACRILEX 2 MG GUM MT SCH ×2 (08:24→21:39)
[2021-11-10] MEDS: SPIRONOLACTONE 100 MG TAB PO SCH ×2 (08:24→21:39)
[2021-11-10] MEDS: POTASSIUM CHLORIDE PWD 20 MEQ PACK PO SCH (08:24)
[2021-11-10] MEDS: LACTULOSE SYRUP 30 GM/45 ML UDP PO SCH ×4 (08:25→21:26)
[2021-11-10] MEDS: valACYclovir HCL 500 MG TABLET PO SCH (08:25)
[2021-11-10] MEDS: NICOTINE 14 MG/24 HR PATCH TD SCH (08:25)
[2021-11-10] MEDS: FOLIC ACID 1 MG in SYRINGE 9.8 ML IV SCH (08:27)
[2021-11-10 08:48] LABS: Hematocrit (blood only) 31.7 % (40.1-51.0); Hemoglobin 11.2 g/dl (14.0-18.0); Mean Corpuscular Hemoglobin 35.4 pg (25.0-34.0); Mean Corpuscular Hgb Conc 35.3 g/dL (32.0-36.0); Mean Corpuscular Volume 100.3 fL (80.0-100.0); Mean Platelet Volume 11.4 fL (9.4-12.4); Platelet Count 39 K/uL (130-400); RDW Coefficient of Variation 13.6 % (11.5-14.5); RDW Standard Deviation 50.1 fL (36.4-46.3); Red Blood Count 3.16 M/uL (4.63-6.08); White Blood Count 3.32 K/ul (4.8-10.8)
[2021-11-10 08:55] LABS: Alanine Aminotransferase 30 U/L (7-52); Albumin Globulin Ratio 1.3 (0.9-2); Albumin Level 3.1 gm/dl (3.4-5.0); Alkaline Phosphatase 75 U/L (34-104); Anion Gap 3 (3-11); Aspartate Aminotransferase 44 U/L (13-39); BUN Creatinine Ratio 15.9 (10-20); Bilirubin,Total 1.1 mg/dl (0.2-1.0); Blood Urea Nitrogen 10 mg/dl (6-23); Calcium 8.6 mg/dl (8.5-10.1); Carbon Dioxide 24 mmol/L (21-32); Chloride 107 mmol/L (98-107); Est GFR (African American) 123.3 ml/min; Est GFR (Non-African American) 106.4 ml/min; Globulin 2.4 gm/dl (2.5-4.0); Glucose 111 mg/dl (70-99(Fasting)); Magnesium 1.8 mg/dl (1.7-2.4); Phosphorus 2.5 mg/dl (2.5-4.9); Sodium 134 mmol/L (136-145); Total Protein 5.5 gm/dl (6.0-8.3)
[2021-11-10 09:30] LABS: Basophils # (auto) 0.05 K/uL (0-0.2); Basophils % (auto) 1.5 %; Eosinophils # (auto) 0.17 K/uL (0-0.50); Eosinophils % (auto) 5.1 %; Lymphocytes # (auto) 1.08 K/uL (1.2-3.4); Lymphocytes % (auto) 32.5 %; Monocytes # (auto) 0.39 K/uL (0.24-0.82); Monocytes % (auto) 11.7 %; Neutrophils # (auto) 1.63 K/uL (1.4-6.5); Neutrophils % (auto) 49.2 %
--- NOTE | 2021-11-10 14:47 | Hospitalist Progress Note ---
Date of Service November 10, 2021 Assessment & Plan (1) Hepatic encephalopathy: (2) Cirrhosis: (3) Pancytopenia: (4) Ambulatory dysfunction: (5) Falls: (6) Portal hypertensive gastropathy: (7) Hx of esophageal varices: Plan This is a 61-year-old male who has significant past medical history of Alcoholic cirrhosis, esophageal varices, chronic thrombocytopenia in setting of cirrhosis, HLD, GERD, poor peripheral neuropathy, chronic back pain, history of alcohol abuse, history of cocaine and marijuana use who presents to ED after being found walking in his boots in the bathrobe via EMS. Acute hepatic encephalopathy In setting of ETOH cirrhosis pt appears non compliant with lactulose, 30g given in ED x 1 continue 30g TID, titrate to 2-3 good BM daily Ammonia level is elevated at 146.0 and has been improving as of this morning at 103.0 on 11/09/2021 Appreciate GI input and recommendation Continue rifaximin, aldactone Hold torsemide for now Has been getting thiamine and folic acid IV for now, transition to PO when more awake/alert urine drug screen -negative, ETOH negative Hold OP oxycodone Clinically better but the ammonia level has gone up and bowel movement is not appropriate for hepatic and colopathy Lactulose dose was increased to have 3-5 bowel movements a day Will monitor blood counts and ammonia level tomorrow Likely discharge tomorrow Cirrhosis: chronic, 2/2 alcohol and reports cessation since 2014. Management as above other than encephalopathy, compensated from a volume stand point no abd pain, benign exam will hold torsemide for now until pt more alert and eating more Appreciate GI input-has a MELD score of 10 No bleeding and no infection Pancytopenia 2/2 cirrhosis monitor cbc SARS COV2 + on 11/01 pt w/o respiratory sx, remains asymptomatic should remain on isolation through 11/10 Can come out of isolation from tomorrow Ambulatory Dysfunction Falls 2/2 encephalopathy consult PT/OT when appropriate Hx of esophageal varices: No bleeding issues currently continue PPI DVT prophylaxis: SCDS for now, monitor plt ct Code Status Full Code PCP: Radha, follows [facility] at home, currently unable to access [employer] to determine recent visit by [facility] at home, ? pt would benefit from rehab post hospitalization to ensure med compliance Dispo: med tele, PT/oT consulted Admission and Anticipated Discharge Date Admission Date: November 08, 2021 Subjective 11/09/2021 The patient was seen and examined in medical telemetry unit History of alcoholic cirrhosis and was admitted with hepatic encephalopathy Has been feeling much better and denies any confusion during examination Remains generally weak and lethargic 11/10/2021 The patient was seen and examined in medical telemetry unit and in the COVID room He has been feeling better but his bowel has not moved more than 2 times since admission Does not have any more confusion but ammonia level has gone up to 123 range Denies any other significant symptoms except weakness Review of Systems Review of Systems: All systems reviewed and are unremarkable except as noted below Physical Exam Physical Exam: Lying in bed comfortably Constitutional: well developed, well nourished and average body habitus; not ill appearing Eyes: PERRL, conjunctivae normal, anicteric sclerae ENMT: external ear and nose normal, oropharynx normal Neck: trachea midline, no thyromegaly Respiratory: no respiratory distress Auscultation: + diminished lung sounds and + crackles (Minimal crackles at the bases) Cardiovascular: Rate/Rhythm: regular rate and regular rhythm; not tachycardic Heart Sounds: normal S1 and normal S2; no murmur Extremities: + edema (Trace edema bilaterally) Gastrointestinal (Abdomen): Inspection/Auscultation: normal bowel sounds; abdomen not distended Percussion/Palpation: abdomen soft; abdomen nontender Musculoskeletal: No acute arthritis in any joint Neurologic: Alert and awake. Oriented x3. generally very weak. No focal neurodeficit. No hepatic flap Lymphatic: no cervical or axillary lymphadenopathy Results & Data Results & Data ([facility]) Vital Signs (Past 12 Hours) Vital Signs Temp Pulse Resp BP Pulse Ox O2 Del Method 11/10/21 08:09 36.7 C 67 20 136/68 96 Room Air Laboratory Results Short CBC 11/10/21 Range/Units 08:06 WBC 3.32 L (4.8-10.8) K/ul Hgb 11.2 L (14.0-18.0) g/dl Hct 31.7 L (40.1-51.0) % Plt Count 39 L (130-400) K/uL BMP 11/10/21 08:06 Sodium 134 L Potassium 4.0 Chloride 107 Carbon Dioxide 24 BUN 10 Creatinine 0.63 Glucose 111 H Calcium 8.6 Liver Function 11/10/21 Range/Units 08:06 Total Bilirubin 1.1 H (0.2-1.0) mg/dl AST 44 H (13-39) U/L ALT 30 (7-52) U/L Alkaline Phosphatase 75 (34-104) U/L Albumin 3.1 L (3.4-5.0) gm/dl Medications Administered Current Inpatient Medications Al Hydrox/Mg Hydrox/Simethicone (Aluminum/Magnesium Susp 30 Ml Udc) 30 ml PO Q6H PRN PRN Reason: Dyspepsia Stop: 12/08/21 20:38 Albuterol (Albuterol Hfa 8 Gm Inhaler) 2 puffs INH Q4 PRN PRN Reason: Shortness Of Breath Stop: 12/08/21 20:38 Cyanocobalamin (Cyanocobalamin (B-12) 100 Mcg Tablet) 100 mcg PO QAM [facility] Stop: 12/09/21 08:59 Last Admin: 11/10/21 08:24 Dose: 100 mcg Diclofenac Sodium (Diclofenac Sod 1% Gel 100 Gm Tube) 2 gm EXT TID PRN; Protocol PRN Reason: Pain Stop: 12/08/21 20:38 Duloxetine HCl (Duloxetine Hcl 60 Mg Cap) 60 mg PO HS AMBER Stop: 12/08/21 20:59 Last Admin: 11/09/21 20:49 Dose: 60 mg Fluticasone Propionate (Fluticasone Propionate Na Spr 16 Gm Btl) 2 sprays NA DAILY PRN PRN Reason: Allergy Symptoms Stop: 12/08/21 20:38 Folic Acid (Folic Acid 1 Mg Tab) 1 mg PO QAM [facility] Stop: 12/11/21 08:59 Lactulose (Lactulose Syrup 30 Gm/45 Ml Udp) 30 gm PO TID AMBER Stop: 12/08/21 20:59 Last Admin: 11/10/21 12:29 Dose: 30 gm Miscellaneous (Remove Nicoderm Patch) 1 each N/A DAILY@0859 [facility] Stop: 12/10/21 08:58 Last Admin: 11/10/21 08:23 Dose: 1 each Nicotine (Nicotine 14 Mg/24 Hr Patch) 14 mg TD QAM [facility] Stop: 12/09/21 14:14 Last Admin: 11/10/21 08:25 Dose: 14 mg Nicotine Polacrilex (Nicotine Polacrilex 2 Mg Gum) 1 piece MT BID AMBER Stop: 12/09/21 20:59 Last Admin: 11/10/21 08:24 Dose: 1 piece Ondansetron HCl (Ondansetron Inj 2 Mg/Ml 2 Ml Vial) 4 mg IV Q6H PRN PRN Reason: Nausea Stop: 12/08/21 20:38 Pantoprazole Sodium (Pantoprazole 40 Mg Tab) 40 mg PO DAILY AMBER Stop: 12/09/21 08:59 Last Admin: 11/10/21 08:24 Dose: 40 mg Potassium Chloride (Potassium Chloride Pwd 20 Meq Pack) 20 meq PO DAILY AMBER Stop: 12/09/21 08:59 Last Admin: 11/10/21 08:24 Dose: 20 meq Rifaximin (Rifaximin 550 Mg Tablet) 550 mg PO BID AMBER Stop: 12/08/21 20:59 Last Admin: 11/10/21 08:24 Dose: 550 mg Spironolactone (Spironolactone 100 Mg Tab) 100 mg PO BID AMBER Stop: 12/08/21 20:59 Last Admin: 11/10/21 08:24 Dose: 100 mg Thiamine HCl (Thiamine Hcl 100 Mg Tab) 100 mg PO QAM AMBER Stop: 12/11/21 08:59 Valacyclovir HCl (Valacyclovir Hcl 500 Mg Tablet) 1,000 mg PO DAILY AMBER Stop: 12/09/21 08:59 Last Admin: 11/10/21 08:25 Dose: 1,000 mg
[2021-11-10] MEDS: DULoxetine HCL 60 MG CAP PO SCH (21:39)
[2021-11-11 06:09] LABS: Basophils # (auto) 0.05 K/uL (0-0.2); Basophils % (auto) 1.4 %; Eosinophils # (auto) 0.24 K/uL (0-0.50); Eosinophils % (auto) 6.5 %; Hematocrit (blood only) 33.7 % (40.1-51.0); Hemoglobin 11.8 g/dl (14.0-18.0); Lymphocytes # (auto) 1.07 K/uL (1.2-3.4); Lymphocytes % (auto) 29.2 %; Mean Platelet Volume 11.5 fL (9.4-12.4); Monocytes # (auto) 0.45 K/uL (0.24-0.82); Monocytes % (auto) 12.3 %; Neutrophils # (auto) 1.86 K/uL (1.4-6.5); Neutrophils % (auto) 50.6 %; Platelet Count 63 K/uL (130-400); White Blood Count 3.67 K/ul (4.8-10.8)
[2021-11-11 06:27] LABS: Alanine Aminotransferase 27 U/L (7-52); Albumin Globulin Ratio 1.4 (0.9-2); Alkaline Phosphatase 67 U/L (34-104); Anion Gap 4 (3-11); Aspartate Aminotransferase 41 U/L (13-39); BUN Creatinine Ratio 14.8 (10-20); Bilirubin,Total 0.9 mg/dl (0.2-1.0); Blood Urea Nitrogen 9 mg/dl (6-23); Calcium 8.3 mg/dl (8.5-10.1); Carbon Dioxide 24 mmol/L (21-32); Chloride 108 mmol/L (98-107); Est GFR (African American) 124.9 ml/min; Est GFR (Non-African American) 107.8 ml/min; Globulin 2.2 gm/dl (2.5-4.0); Glucose 108 mg/dl (70-99(Fasting)); Magnesium 1.9 mg/dl (1.7-2.4); Potassium 4.1 mmol/L (3.5-5.1); Sodium 136 mmol/L (136-145); Total Protein 5.2 gm/dl (6.0-8.3)
[2021-11-11 06:34] LABS: Mean Corpuscular Hemoglobin 35.6 pg (25.0-34.0); Mean Corpuscular Volume 101.8 fL (80.0-100.0); RDW Coefficient of Variation 13.5 % (11.5-14.5); RDW Standard Deviation 50.5 fL (36.4-46.3); Red Blood Count 3.31 M/uL (4.63-6.08)
[2021-11-11] MEDS: NICOTINE 14 MG/24 HR PATCH TD SCH (08:18)
[2021-11-11] MEDS: POTASSIUM CHLORIDE PWD 20 MEQ PACK PO SCH (08:18)
[2021-11-11] MEDS: rifAXIMin 550 MG TABLET PO SCH ×2 (08:18→20:17)
[2021-11-11] MEDS: LACTULOSE SYRUP 30 GM/45 ML UDP PO SCH ×4 (08:18→20:12)
[2021-11-11] MEDS: THIAMINE HCL 100 MG TAB PO SCH (08:19)
[2021-11-11] MEDS: PANTOprazole 40 MG TAB PO SCH (08:19)
[2021-11-11] MEDS: CYANOCOBALAMIN (B-12) 100 MCG TABLET PO SCH (08:19)
[2021-11-11] MEDS: NICOTINE POLACRILEX 2 MG GUM MT SCH ×2 (08:19→20:18)
[2021-11-11] MEDS: valACYclovir HCL 500 MG TABLET PO SCH (08:19)
[2021-11-11] MEDS: SPIRONOLACTONE 100 MG TAB PO SCH ×2 (08:19→20:18)
[2021-11-11] MEDS: FOLIC ACID 1 MG TAB PO SCH (08:20)
--- NOTE | 2021-11-11 09:54 | Gastroenterology Progress Note ---
Date of Service November 11, 2021 Assessment & Plan (1) Acute hepatic encephalopathy: Plan: 61 years old male with history of alcoholic cirrhosis and polysubstance abuse (abstinent for years), MELD 10, HE and varices, who presented w altered mental status, concern for medication noncompliance. This AM he is awake, alert and oriented, answering questions appropriately and wants to go home - Resolved HE, no need to trend ammonia levels as he is awake, alert and orie nted x 3 - Continue Lactulose and Xifaxan as dosed. Titrate Lactulose for goal BM 3-5x a day - Continue Thiamin and Folic acid - No GI contraindication to diet as tolerated Thank you for allowing us to participate in the care of this patient. Please call with any acute changes, questions or concerns. Please see addendum below with additional recommendation from my supervising physician. Admission and Anticipated Discharge Date Admission Date: November 08, 2021 Subjective GI was asked to re-evaluate as ammonia level was elevated. Pt was seen and evaluated, chart reviewed. Upright in bed, eating breakfast, answering questions appropriately. Notes he feels well No abd pain, nausea, vomiting Moving bowels well, denies black or bloody stools wants to go home Review of Systems Review of Systems: All systems reviewed & are unremarkable except as noted in HPI & below Physical Exam Constitutional: well developed and well nourished Respiratory: normal respiratory effort, lungs clear to auscultation Cardiovascular: Rate/Rhythm: regular rate and regular rhythm Gastrointestinal (Abdomen): normal bowel sounds, soft, nontender, no hepatosplenomegaly Skin: no rashes, warm and dry Results & Data ([facility]) Vital Signs (Past 12 Hours) Vital Signs Temp Pulse Resp BP Pulse Ox O2 Del Method 11/11/21 06:28 36.5 C 84 18 125/67 95 Room Air 11/10/21 23:02 36.9 C 80 20 130/75 95 Room Air Laboratory Results 11/11/21 11/11/21 11/11/21 Range/Units 05:47 05:47 05:47 WBC 3.67 L (4.8-10.8) K/ul RBC 3.31 L (4.63-6.08) M/uL Hgb 11.8 L (14.0-18.0) g/dl Hct 33.7 L (40.1-51.0) % MCV 101.8 H (80.0-100.0) fL MCH 35.6 H (25.0-34.0) pg MCHC 35.0 (32.0-36.0) g/dL RDW Std Deviation 50.5 H (36.4-46.3) fL RDW Coeff of Abhijit 13.5 (11.5-14.5) % Plt Count 63 L D (130-400) K/uL MPV 11.5 (9.4-12.4) fL Immature Gran % (Auto) 0.0 % Neut % (Auto) 50.6 % Lymph % (Auto) 29.2 % [place] % (Auto) 12.3 % Eos % (Auto) 6.5 % Baso % (Auto) 1.4 % Neut # (Auto) 1.86 (1.4-6.5) K/uL Lymph # (Auto) 1.07 L (1.2-3.4) K/uL [place] # (Auto) 0.45 (0.24-0.82) K/uL Eos # (Auto) 0.24 (0-0.50) K/uL Baso # (Auto) 0.05 (0-0.2) K/uL Immature Gran # (Auto) 0.00 (0.00-0.02) K/uL Sodium 136 (136-145) mmol/L Potassium 4.1 (3.5-5.1) mmol/L Chloride 108 H (98-107) mmol/L Carbon Dioxide 24 (21-32) mmol/L Anion Gap 4 (3-11) BUN 9 (6-23) mg/dl Creatinine 0.61 (0.6-1.4) mg/dl Est Cr Clr Drug Dosing Not Reportable Est GFR ( Amer) 124.9 ml/min Est GFR (Non-Af Amer) 107.8 ml/min BUN/Creatinine Ratio 14.8 (10-20) Glucose 108 H (70-99(Fasting)) mg/dl Calcium 8.3 L (8.5-10.1) mg/dl Magnesium 1.9 (1.7-2.4) mg/dl Total Bilirubin 0.9 (0.2-1.0) mg/dl AST 41 H (13-39) U/L ALT 27 (7-52) U/L Alkaline Phosphatase 67 (34-104) U/L Ammonia 144.0 H (18-72) umol/L Total Protein 5.2 L (6.0-8.3) gm/dl Albumin 3.0 L (3.4-5.0) gm/dl Globulin 2.2 L (2.5-4.0) gm/dl Albumin/Globulin Ratio 1.4 (0.9-2)
--- NOTE | 2021-11-11 17:18 | Hospitalist Progress Note ---
Date of Service November 11, 2021 Assessment & Plan (1) Hepatic encephalopathy: (2) Cirrhosis: (3) Pancytopenia: (4) Ambulatory dysfunction: (5) Falls: (6) Portal hypertensive gastropathy: (7) Hx of esophageal varices: Plan per Dr. Bower's notes with addendum: This is a 61-year-old male who has significant past medical history of Alcoholic cirrhosis, esophageal varices, chronic thrombocytopenia in setting of cirrhosis, HLD, GERD, poor peripheral neuropathy, chronic back pain, history of alcohol abuse, history of cocaine and marijuana use who presents to ED after being found walking in his boots in the bathrobe via EMS. Acute hepatic encephalopathy In setting of ETOH cirrhosis pt appears non compliant with lactulose, 30g given in ED x 1 continue 30g TID, titrate to 2-3 good BM daily Ammonia level is elevated at 146.0 and has been improving as of this morning at 103.0 on 11/09/2021 Appreciate GI input and recommendation Continue rifaximin, aldactone Hold torsemide for now Has been getting thiamine and folic acid IV for now, transition to PO when more awake/alert urine drug screen -negative, ETOH negative Hold OP oxycodone Clinically better but the ammonia level has gone up and bowel movement is not appropriate for hepatic and colopathy Lactulose dose was increased to have 3-5 bowel movements a day Will monitor blood counts and ammonia level tomorrow Likely discharge tomorrow 11/11 much better continue Lactulose, Rifaximin anticipate d/c home tomorrow Cirrhosis: chronic, 2/2 alcohol and reports cessation since 2014. Management as above other than encephalopathy, compensated from a volume stand point no abd pain, benign exam will hold torsemide for now until pt more alert and eating more Appreciate GI input-has a MELD score of 10 No bleeding and no infection 11/11 euvolemic Pancytopenia 2/2 cirrhosis monitor cbc--> stable SARS COV2 + on 11/01 pt w/o respiratory sx, remains asymptomatic -- d/c isolation today Ambulatory Dysfunction Falls 2/2 encephalopathy PT/OT consulted: recommend DC home Hx of esophageal varices: No bleeding issues currently continue PPI DVT prophylaxis: SCDS for now, monitor plt ct Code Status Full Code PCP: Radha, follows [facility] at home, currently unable to access [employer] to determine recent visit by [facility] at home, ? pt would benefit from rehab post hospitalization to ensure med compliance Dispo: med tele, PT/oT consulted Admission and Anticipated Discharge Date Admission Date: November 08, 2021 Subjective ff up for hepatic encephalopathy, etc seen sitting up at the edge of the bed, comfortable states he feels fine overall oriented x3, answers all questions appropriately no abdominal pain ,nausea/vomiting no chest pain, dyspnea, palpitations, dizziness feels on the weak side today, feels he will be ready today no other symptoms Review of Systems Review of Systems: all noted and negative except for above Physical Exam Physical Exam: General- oriented x 3, not in distress, speaks in sentences with no effort or accessory muscle use Eyes- anicteric Neck- no JVD Lungs- clear BS bilaterally, no rales/wheezes Heart- normal rate, regular rhythm; no murmurs Abdomen- normal bowel sounds, nondistended, soft, nontender Extremities- no pretibial edema, no calf tenderness Neuro- alert, oriented x 3; no gross focal neurologic deficits Skin- warm & dry Results & Data Results & Data ([facility]) Vital Signs (Past 12 Hours) Vital Signs Temp Pulse Resp BP Pulse Ox O2 Del Method 11/11/21 06:28 36.5 C 84 18 125/67 95 Room Air all noted and reviewed including below
[2021-11-11] MEDS: DULoxetine HCL 60 MG CAP PO SCH (20:11)
[2021-11-12] MEDS: valACYclovir HCL 500 MG TABLET PO SCH (09:16)
[2021-11-12] MEDS: THIAMINE HCL 100 MG TAB PO SCH (09:16)
[2021-11-12] MEDS: PANTOprazole 40 MG TAB PO SCH (09:16)
[2021-11-12] MEDS: POTASSIUM CHLORIDE PWD 20 MEQ PACK PO SCH (09:16)
[2021-11-12] MEDS: rifAXIMin 550 MG TABLET PO SCH (09:17)
[2021-11-12] MEDS: FOLIC ACID 1 MG TAB PO SCH (09:17)
[2021-11-12] MEDS: NICOTINE 14 MG/24 HR PATCH TD SCH (09:17)
[2021-11-12] MEDS: SPIRONOLACTONE 100 MG TAB PO SCH (09:17)
[2021-11-12] MEDS: NICOTINE POLACRILEX 2 MG GUM MT SCH (09:17)
[2021-11-12] MEDS: CYANOCOBALAMIN (B-12) 100 MCG TABLET PO SCH (09:18)
[2021-11-12] MEDS: LACTULOSE SYRUP 30 GM/45 ML UDP PO SCH ×2 (09:19→12:21)
--- NOTE | 2021-11-12 18:42 | Hospitalist Progress Note ---
Date of Service November 12, 2021 Assessment & Plan (1) Hepatic encephalopathy: (2) Cirrhosis: (3) Pancytopenia: (4) Ambulatory dysfunction: (5) Falls: (6) Portal hypertensive gastropathy: (7) Hx of esophageal varices: Plan per Dr. Bower's notes with addendum: This is a 61-year-old male who has significant past medical history of Alcoholic cirrhosis, esophageal varices, chronic thrombocytopenia in setting of cirrhosis, HLD, GERD, poor peripheral neuropathy, chronic back pain, history of alcohol abuse, history of cocaine and marijuana use who presents to ED after being found walking in his boots in the bathrobe via EMS. Acute hepatic encephalopathy In setting of ETOH cirrhosis pt appears non compliant with lactulose, 30g given in ED x 1 continue 30g TID, titrate to 2-3 good BM daily Ammonia level is elevated at 146.0 and has been improving as of this morning at 103.0 on 11/09/2021 Appreciate GI input and recommendation Continue rifaximin, aldactone Hold torsemide for now Has been getting thiamine and folic acid IV for now, transition to PO when more awake/alert urine drug screen -negative, ETOH negative Hold OP oxycodone Clinically better but the ammonia level has gone up and bowel movement is not appropriate for hepatic and colopathy Lactulose dose was increased to have 3-5 bowel movements a day Will monitor blood counts and ammonia level tomorrow Likely discharge tomorrow 11/12 Patient clinically improved States he is having 3-4 bowel movements per day continue increased dose of lactulose 30 g 4 times a day, Rifaximin Explained to patient that goal is to have 3-4 bowel movements per day to prevent encephalopathy Patient verbalized understanding and agreement Cirrhosis: chronic, 2/2 alcohol and reports cessation since 2014. Management as above other than encephalopathy, compensated from a volume stand point no abd pain, benign exam will hold torsemide for now until pt more alert and eating more Appreciate GI input-has a MELD score of 10 No bleeding and no infection 11/12 euvolemic Pancytopenia 2/2 cirrhosis monitor cbc--> stable SARS COV2 + on 11/01 pt w/o respiratory sx, remains asymptomatic Ambulatory Dysfunction Falls 2/2 encephalopathy PT/OT consulted: recommend DC home Hx of esophageal varices: No bleeding issues currently continue PPI DVT prophylaxis: SCDS for now, monitor plt ct Code Status Full Code Disposition Discharge to home with home services Follow-up with PCP in 1 week Admission and Anticipated Discharge Date Admission Date: November 08, 2021 Subjective Follow-up for hepatic encephalopathy, etc. Seen sitting up at edge of the bed, comfortable, not distressed Alert, oriented x3, answers all questions appropriately States he feels better overall Denies confusion, abdominal pain, nausea, fevers or chills No other symptoms States he is ready and would like to be discharged Review of Systems Review of Systems: all noted and negative except for above Physical Exam Physical Exam: General- oriented x 3, not in distress, speaks in sentences with no effort or accessory muscle use Eyes- anicteric Neck- no JVD Lungs- clear breath sounds bilaterally, no crackles, no wheezing Heart- normal rate, regular rhythm; no murmurs Abdomen- normal bowel sounds, nondistended, soft, no tenderness Extremities- no pretibial edema, no calf tenderness Neuro- alert, oriented x 3; no gross focal neurologic deficits Skin- warm & dry Results & Data Results & Data ([facility]) Vital Signs (Past 12 Hours) Vital Signs Temp Pulse Pulse Resp BP BP Pulse Ox 11/12/21 12:55 36.5 C 71 62 20 129/72 164/84 H 95 11/12/21 08:00 11/12/21 08:15 36.5 C 62 20 129/72 95 Pulse Ox O2 Del Method O2 Del Method 11/12/21 12:55 11/12/21 08:00 97 Room Air 11/12/21 08:15 Room Air all noted and reviewed including below
--- NOTE | 2021-11-14 16:32 | Discharge Summary ---
Discharge Summary Date of Service November 14, 2021 Delayed entry Date of service November 12, 2021 Notes For Next Care Provider Lactulose increased to 30 g 4 times daily goal bowel movements of 3-4 times a day Medication Changes From Visit As per above Admission HPI Per Admitting Provider This is a 61-year-old male who has significant past medical history of Alcoholic cirrhosis, esophageal varices, chronic thrombocytopenia in setting of cirrhosis, HLD, GERD, poor peripheral neuropathy, chronic back pain, history of alcohol abuse, history of cocaine and marijuana use who presents to ED after being found walking in his boots in the bathrobe via EMS. Per ED report patient stated he had been drinking and that he was unsure if he fell. ROS difficult to obtain due to patient's underlying confusion. He is only alert to self currently. Patient was recently hospitalized 11/01-11/05 secondary to hepatic encephalopathy. He was found to have elevated ammonia level, dehydration, mild rhabdomyolysis and UTI. He also incidentally tested positive for SARS-CoV-2. He was asymptomatic but did remain isolated. His home dose lactulose was increased to 30 g 3 times daily, he was treated appropriately for UTI, urine and blood cultures were negative. He did have an outpatient urine culture prior to admission that was positive and therefore likely partially treated upon admission. Patient was discharged to home in which he lives by himself. He manages his own medications. He states he has not been taking any of his medications specifically his lactulose. He denies any alcohol use and states has been many years. Again ROS very unreliable due to patient's underlying cognition. He did receive 1 dose of lactulose 30 g in ED. He remained hemodyn amically stable in ED. Lab work notable for WBC 3.63k, H&H 13.9 and 38.1, platelet 94, BUN 13, creatinine 0.68, total bilirubin 1.5, direct bili 1.3, AST 58, ammonia 146, urinalysis negative, ethyl alcohol negative. Head CT and cervical spine CT were negative. He also received 1 L of IV fluid in ED. Admission Exam Per Admitting Provider General: Lethargic, lying comfortably in bed, not in acute distress, on room air HEENT: EOMI, STEPHANIE, MMM Chest: Decreased breath sounds bilaterally but fair with no wheezes or crackles CVS: Regular rate and rhythm, normal heart sounds, no murmur Abdomen: Soft, mild lower abd tenderness (chronic), not distended, normal bowel sounds Neuro: Awake but lethargic, answers simple questions, follows some commands Extremities: No cyanosis, clubbing or edema. [employer] + Psych: Calm, cooperative Skin: Right arm with Mepilex Principal Dx & Hospital Course #1 = Principal Diagnosis (1) Hepatic encephalopathy: (2) Cirrhosis: (3) Pancytopenia: (4) Ambulatory dysfunction: (5) Falls: (6) Portal hypertensive gastropathy: (7) Hx of esophageal varices: Plan per Dr. Bower's notes with addendum: This is a 61-year-old male who has significant past medical history of Alcoholic cirrhosis, esophageal varices, chronic thrombocytopenia in setting of cirrhosis, HLD, GERD, poor peripheral neuropathy, chronic back pain, history of alcohol abuse, history of cocaine and marijuana use who presents to ED after being found walking in his boots in the bathrobe via EMS. Acute hepatic encephalopathy In setting of ETOH cirrhosis pt appears non compliant with lactulose, 30g given in ED x 1 continue 30g TID, titrate to 2-3 good BM daily Ammonia level is elevated at 146.0 and has been improving as of this morning at 103.0 on 11/09/2021 Appreciate GI input and recommendation Continue rifaximin, aldactone Hold torsemide for now Has been getting thiamine and folic acid IV for now, transition to PO when more awake/alert urine drug screen -negative, ETOH negative Hold OP oxycodone Clinically better but the ammonia level has gone up and bowel movement is not appropriate for hepatic and colopathy Lactulose dose was increased to have 3-5 bowel movements a day 11/12 Patient clinically improved States he is having 3-4 bowel movements per day continue increased dose of lactulose 30 g 4 times a day, Rifaximin Explained to patient that goal is to have 3-4 bowel movements per day to prevent encephalopathy Patient verbalized understanding and agreement Cirrhosis: chronic, 2/2 alcohol and reports cessation since 2014. Management as above other than encephalopathy, compensated from a volume stand point no abd pain, benign exam will hold torsemide for now until pt more alert and eating more Appreciate GI input-has a MELD score of 10 No bleeding and no infection 11/12 euvolemic Pancytopenia 2/2 cirrhosis monitor cbc--> stable SARS COV2 + on 11/01 pt w/o respiratory sx, remains asymptomatic Ambulatory Dysfunction Falls 2/2 encephalopathy PT/OT consulted: recommend DC home Hx of esophageal varices: No bleeding issues currently continue PPI DVT prophylaxis: SCDS for now, monitor plt ct Code Status Full Code Disposition Discharge to home with home services Follow-up with PCP in 1 week Discharge Exam General- oriented x 3, not in distress, speaks in sentences with no effort or accessory muscle use Eyes- anicteric Neck- no JVD Lungs- clear breath sounds bilaterally, no crackles, no wheezing Heart- normal rate, regular rhythm; no murmurs Abdomen- normal bowel sounds, nondistended, soft, no tenderness Extremities- no pretibial edema, no calf tenderness Neuro- alert, oriented x 3; no gross focal neurologic deficits Skin- warm & dry Updated Medication List Medication Instructions Recorded Confirmed Type diclofenac sodium 1 % topical gel 2 g topical TID PRN Pain 02/29/20 11/08/21 History cyanocobalamin (vitamin B-12) 100 100 mcg PO QAM 04/04/20 11/08/21 History mcg tablet rifaximin 550 mg tablet (Xifaxan) 550 mg PO BID 04/04/20 11/08/21 History spironolactone 100 mg tablet 100 mg PO BID 04/04/20 11/08/21 History thiamine mononitrate (vit B1) 100 100 mg PO QAM 04/04/20 11/08/21 History mg tablet fluticasone propionate 50 2 spray intranasal DAILY PRN 04/16/20 11/08/21 History mcg/actuation nasal Allergy Symptoms spray,suspension (Flonase Allergy Relief) folic acid 1 mg tablet 1 mg PO DAILY 09/19/20 11/08/21 History pantoprazole 40 mg tablet,delayed 40 mg PO DAILY 09/19/20 11/08/21 History release potassium chloride 20 mEq oral 20 meq PO DAILY 09/19/20 11/08/21 History packet albuterol sulfate 90 mcg/actuation 2 puff inhalation Q4 PRN Shortness 04/25/21 11/08/21 History aerosol inhaler Of Breath duloxetine 60 mg capsule,delayed 60 mg PO HS 04/25/21 11/08/21 History release torsemide 20 mg tablet 20 mg PO AMHS 04/25/21 11/08/21 History valacyclovir 1 gram tablet 1,000 mg PO DAILY 11/01/21 11/08/21 History (Valtrex) lactulose 20 gram/30 mL oral 30 g (45 mL) PO QID 30 days #4,050 11/12/21 11/08/21 Rx solution mL Hospital Stay Data Consultations 11/08/21 15:37 ED Decision to Admit Stat 11/08/21 20:39 Consult Gastroenterology Routine Diagnostic Imagining Performed Head CT 11/08/21 12:57 CT OF THE HEAD WITHOUT CONTRAST CLINICAL HISTORY: Altered mental status. COMPARISON STUDY: Head CT November 01, 2021. CT DOSE: 2683.71 mGycm TECHNIQUE: Helical axial images of the head were obtained without IV contrast. Automated exposure control was utilized for the study. A dose lowering technique was utilized adhering to the principles of ALARA. FINDINGS: This study is mildly compromised by motion artifact. White matter hypodensities are unchanged and favor small vessel disease. No acute intracranial hemorrhage, midline shift or mass effect is present. The ventricular system is unremarkable. The basal cisterns are patent. No extra- axial collections are present. There are no findings to suggest acute dural sinus thrombosis or acute territorial infarct. No significant calvarial abnormalities are present. Visualized portions of the sinuses and mastoid air cells are clear. IMPRESSION: No acute intracranial findings. No change in appearance of the brain. ACT 112: Negative or not required by law. Electronically signed by: Leonrado Brewster M.D. 11/08/2021 1:[address] 11/08/21 13:[address] DOSE: 484.65 mGycm HISTORY: etoh ams possible fall TECHNIQUE: Multiaxial CT images of the cervical spine were performed and reformatted in the sagittal and coronal plane without the use of contrast. A dose lowering technique was utilized adhering to the principles of ALARA. COMPARISON: Cervical spine CT 09/04/2018. FINDINGS: No fractures. No subluxation. Prevertebral soft tissues and the C1-C2 interval are intact. No pneumothorax. Severe disc space narrowing at C6-C7. IMPRESSION: No fractures within the cervical spine. ACT 112: Negative or not required by law. Electronically signed by: Ángel Wilson M.D. 11/08/2021 2:02 PM Pending Results Patient Have Any Pending Studies at Discharge: No Discharge Instructions Given to Patient (Per Discharging Provider) PLEASE REFER TO YOUR NEW MEDICATION LIST AND FOLLOW INSTRUCTIONS CAREFULLY. YOUR NEW MEDICATIONS INCLUDE: INCREASE LACTULOSE TO 30 grams FOUR TIMES A DAY - goal is to have 3-4 bowel movements per day to prevent high level of ammonia resulting to confusion PLEASE CALL YOUR PRIMARY CARE PHYSICIAN OR RETURN TO THE ER IF WITH WORSENING OF SYMPTOMS, INCLUDING CONFUSION, WEAKNESS, ABDOMINAL PAIN, ABDOMINAL DISTENTION, FEVER/CHILLS, ETC FOLLOW UP WITH PRIMARY CARE PHYSICIAN IN 1 WEEK. THE CLINIC WILL BE CALLING YOU SOON FOR THE APPOINTMENT. Total Time Total Time Spent Total Time Spent (In Minutes): >30 minutes
== END 2021-11-12 14:05 | disposition home health service (06) | DRG 442 ==
LOC: ED 12:31 → EDINP 15:54 → SUATTDRO 15:54 → 2W 20:40

== ENCOUNTER 2023-06-11 13:53 | Inpatient (IN) ==
--- NOTE | 2023-06-11 14:35 | XRay Report ---
XR chest 1V portable CLINICAL HISTORY: Shortness of breath. COMPARISON STUDY: Chest radiograph November 01, 2021. FINDINGS: Lung volumes are normal. Lungs are clear. There is no pneumothorax or pleural effusion. Car diac size is normal. Mediastinal contours are normal. There is no evidence for pulmonary edema. IMPRESSION: No acute cardiopulmonary findings. ACT 112: Negative or not required by law. Electronically signed by: Leonardo Brewster M.D. 06/11/2023 2:34 PM
--- NOTE | 2023-06-11 14:44 | Emergency Department Note ---
Impression & Plan Fall, History of cirrhosis of liver, Acute UTI, Increased ammonia level ED Provider Note Provider: Fredo Edwards MD DATE OF SERVICE: 06/11/2023 CHIEF COMPLAINT: Transient shortness of breath, shakiness, fall out of bed HISTORY OF PRESENT ILLNESS: Patient is a 63-year-old gentleman history of chronic back confused follows with Dr. Bauer in addition to liver cirrhosis presenting here today for evaluation via ambulance. Patient states that he is here because on his health ride van trip to [place] [facility] he developed sudden shortness of breath with shakiness. Denies significant chest pain denies any abdominal pain today. He is feeling better at this time. Significantly reports that this morning rolled out of bed. States woke up and rolled out of bed to the floor. States he hit his head at least twice. Denies loss of consciousness to his knowledge. Was able to make his way up off the floor onto the bed and then get ready for his trip to orthopedics. Has had ongoing chronic back issues and a history of back surgeries in the past. States he feels a little bit foggy. Denies having issues with his breathing and the shakiness he had and route here before. States compliance with home medication and not on anticoagulants. States he has been taking his lactulose. No fevers or recent illness reported. Little bit of soreness of the left knee from scrapes he reports but denies any significant pain. Some pain to the low back region he continues to report and wants to do to get a steroid injection in his back today. PAST MEDICAL HISTORY: As noted above MEDICATIONS: Reviewed home medications and states compliance SOCIAL HISTORY: Chews tobacco PHYSICAL EXAM: GENERAL: alert and oriented in no acute distress on stretcher Head: normocephalic and atraumatic EYES: No injection, discharge or icterus. PERRL, EOMI. NECK: Trachea midline. Supple without midline cervical tenderness ENT: Mucous membranes pink and moist. LUNGS: Airway patent. No retractions. Breath sounds clear with good air entry bilaterally. HEART: Regular rate and rhythm. No chest wall tenderness ABDOMEN: Soft and non-tender, without guarding or rebound. No flank discomfort. Pelvis stable SKIN: Acyanotic, warm, dry, without rashes other a few scattered contusions are noted. EXTREMITIES: Without swelling, tenderness or deformity except for some abrasion over the left knee without significant bony tenderness of the knee joint or left fibular head. NEUROLOGICAL: No focal deficits. No aphasia. No facial droop or slurred speech. Normal strength and tone in the extremities. Sensation to gross touch normal. EK beats per min. Normal sinus rhythm. No PVC or PAC. No acute ST segment elevation or depression with a QTc of 463. CONTINUOUS CARDIAC MONITORING: was ordered and showed a heart rate of 70s-90s bpm in normal sinus rhythm Patient's laboratory studies and imaging reviewed. Differential includes traumatic injury infection, dehydration, metabolic abnormality, hypo/hyperglycemia, electrolyte disturbance, anemia, hypoxia, cardiac sources, intracerebral event, toxicologic, neurologic, as well as other pathologies. IMPRESSION/MEDICAL DECISION MAKING: Seems a bit fatigued and did have a fall this morning. Not on anticoagulants for history of liver disease. Will obtain trauma scans given the fall history. Respiratory status and shakiness seem to karlene at this point. Given his history of liver dysfunction and labs and obtain an ammonia level. Not significantly hypoxic or tachycardic here. Has ongoing back issues. Doubt any significant bony fractures on clinical exam particular in the extremities. Will obtain CT scans given the fact he is not the best historian and had a fall. Blood work here with slight leukopenia 4.4 not far off prior with a slightly improved hemoglobin today at 13.1. Persistent thrombocytopenia today. Bilirubin slightly more elevated at 2.4 but other LFTs without severe abnormalities. No significant lecture light abnormality otherwise noted with normal creatinine. High sensitive troponin normal and EKG reassuring. Ammonia somewhat elevated 92 a little bit of his drugs but appears to have much higher levels otherwise in the past. No acute signs cervical spine injury or traumatic brain injury or bleed/fracture noted by radiology report. CT of the chest without evidence of PE or pneumonia. Cirrhotic findings noted per reports. CT abdomen pelvis with cirrhotic changes but no other acute fractures noted. Discussed with the patient the findings which are generally reassuring other than the ammonia level. CK level normal. Decreased intake today and given some IV fluid and p.o. trial initiated. Discussed with him options at this time given his significant back discomfort and the fall as well as this episode of shaking and breathing issues earlier. Urinalysis returned somewhat concerning for infection concentrated with nitrates present trace leuk esterase. Will be sent for culture. Will cover empirically ceftriaxone based on prior microbiology discussion with pharmacist. Offered observation here to the patient. He was agreeable with this. Hospitalist contacted. Will give dose of rifaximin and lactulose for elevated ammonia in case this is playing a part. Ate a sandwich here without issue. Later nursing staff stated that they felt the patient tried to grab them inappropriately. Nursing extension service supervisor made aware. DIAGNOSIS: Fall, acute uti, weakness, liver cirrhosis with elevated ammonia DISPOSITION: Hospitalist will evaluate Patient was agreeable with this plan. Past Med/Surg History Medical History History of COVID-19 11/01/21 @ [facility]--he was in the hospital for weakness and confusion and they did a COVID test and was found to be positive, states he had no symptoms of covid--no symptoms now Thrombocytopenia Tobacco abuse Depression with anxiety Osteoarthritis of right knee Esophageal varices Urinary tract infection hx, recurrent Lumbar radiculopathy Lumbar disc herniation Sacroiliitis Alcoholic cirrhosis GERD (gastroesophageal reflux disease) Portal hypertensive gastropathy Portal vein thrombosis hx History of hepatitis C pt states he no longer has History of alcohol abuse per pt quit 2013 Hx of thrombocytopenia Baseline platelets ~ 50-75k. 2/2 cirrhosis. Hx of esophageal varices 2/2 chronic portal HTN Hx of encephalopathy 04/2020 [facility] Hx of gynecomastia History of anemia Hypertension Hx of ascites History of cirrhosis of liver D/T ALCOHOL Chronic back pain Hearing deficit right ear perf eardrum Surgical History History of lumbar spinal fusion (~05/27/20) x2 History of esophagogastroduodenoscopy (EGD) History of colonoscopy with polypectomy 06/2022 @ [facility] History of total right hip arthroplasty 2018 Hx of decompression of ulnar nerve RIGHT History of tooth extraction all teeth removed Family History (Updated 06/11/23 @ 18:37 by Fidelia May PA-C) Father Diabetes Other No family history of adverse response to anesthesia Social History Smoking Status: Former smoker Tobacco Type: Cigarettes Second Hand Exposure: No; Do You Dip or Chew Tobacco: Yes (chews (advised on policy)); Hx Alcohol Use: No Hx Substance Use: No Preferred Language: [place]an Communication Ability: Effective 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 Required: No Beliefs That Will Affect Care: None marital status: / Current Living Situation: Family Current Living Situation Comment: Lives with housemate How many Children do You have: 3 Feels Safe at Home: Yes Safety Concerns: Feels Safe At This Time Assistive Devices: Denture - Upper, Denture - Lower, Glasses and Walker Allergies Allergies Allergy/AdvReac Type Severity Reaction Status Date / Time No Known Allergies Allergy Verified 06/11/23 17:41 Home Meds Home Medications Medication Instructions Recorded Confirmed diclofenac sodium 1 % topical gel 2 g topical BID PRN Pain 02/29/20 06/11/23 rifaximin 550 mg tablet (Xifaxan) 550 mg PO BID 04/04/20 06/11/23 spironolactone 100 mg tablet 100 mg PO QAM 04/04/20 06/11/23 thiamine mononitrate (vit B1) 100 100 mg PO QAM 04/04/20 06/11/23 mg tablet fluticasone propionate 50 2 spray intranasal DAILY Allergy 04/16/20 06/11/23 mcg/actuation nasal Symptoms spray,suspension (Flonase Allergy Relief) folic acid 1 mg tablet 1 mg PO QAM 09/19/20 06/11/23 albuterol sulfate 90 mcg/actuation 2 puff inhalation Q4 PRN Shortness 04/25/21 06/11/23 aerosol inhaler Of Breath torsemide 20 mg tablet 20 mg PO AMPM 04/25/21 06/11/23 valacyclovir 1 gram tablet 1,000 mg PO QAM 11/01/21 06/11/23 (Valtrex) lactulose 20 gram oral packet 40 g PO BID 01/12/22 06/11/23 duloxetine 60 mg capsule,delayed 60 mg PO QAM 01/22/23 06/11/23 release calcium carbonate (Tums E-X) 300 mg PO TID PRN Heartburn 06/11/23 06/11/23 magnesium oxide 400 mg PO DAILY 06/11/23 06/11/23 pantoprazole 40 mg tablet,delayed 40 mg PO DAILY 06/11/23 06/11/23 release sildenafil (pulm.hypertension) 20 40 mg PO WK PRN Sexual Activity 05/06/24 05/06/24 mg tablet (Revatio) Results & Data (ED) Vital Signs Vital Signs - 24 hr 06/11/23 13:59 06/11/23 13:59 06/11/23 14:08 Temperature 36.6 C Temperature Source Oral Pulse Rate 84 84 Pulse Rate [Apical] Pulse Rate from SpO2 Sensor Pulse Rhythm Regular Pulse Rhythm [Apical] Pulse Strength [Apical] Respiratory Rate 22 22 Respiratory Effort / Characteristics Short of Breath Short of Breath Respiratory Depth Respiratory Pattern Blood Pressure 115/71 Blood Pressure [Right Arm] Blood Pressure Mean 85 Blood Pressure Mean [Right Arm] Pulse Oximetry 98 98 Oxygen Delivery Method Room Air Room Air Sepsis Recent Fever Within 48 Hours No Sepsis New/Unexplained Change in Mental Status N/A Sepsis Action Taken by Nursing No Action Required 06/11/23 14:57 06/11/23 14:57 06/11/23 15:00 Temperature Temperature Source Pulse Rate 77 Pulse Rate [Apical] 85 Pulse Rate from SpO2 Sensor Pulse Rhythm Pulse Rhythm [Apical] Regular Pulse Strength [Apical] Normal Respiratory Rate 19 Respiratory Effort / Characteristics Non-Labored Spontaneous Respiratory Depth Normal Respiratory Pattern Regular Blood Pressure Blood Pressure [Right Arm] 117/63 Blood Pressure Mean Blood Pressure Mean [Right Arm] 81 Pulse Oximetry 99 99 Oxygen Delivery Method Room Air Room Air Sepsis Recent Fever Within 48 Hours Sepsis New/Unexplained Change in Mental Status Sepsis Action Taken by Nursing 06/11/23 15:07 06/11/23 15:10 06/11/23 15:20 Temperature Temperature Source Pulse Rate 80 79 77 Pulse Rate [Apical] Pulse Rate from SpO2 Sensor 79 79 77 Pulse Rhythm Pulse Rhythm [Apical] Pulse Strength [Apical] Respiratory Rate 18 15 17 Respiratory Effort / Characteristics Respiratory Depth Respiratory Pattern Blood Pressure 117/63 Blood Pressure [Right Arm] Blood Pressure Mean 81 Blood Pressure Mean [Right Arm] Pulse Oximetry 96 97 98 Oxygen Delivery Method Sepsis Recent Fever Within 48 Hours Sepsis New/Unexplained Change in Mental Status Sepsis Action Taken by Nursing 06/11/23 15:42 06/11/23 15:43 06/11/23 15:43 Temperature Temperature Source Pulse Rate 94 H 88 Pulse Rate [Apical] Pulse Rate from SpO2 Sensor 92 H 89 Pulse Rhythm Pulse Rhythm [Apical] Pulse Strength [Apical] Respiratory Rate 16 15 Respiratory Effort / Characteristics Respiratory Depth Respiratory Pattern Blood Pressure 150/84 H Blood Pressure [Right Arm] Blood Pressure Mean 91 Blood Pressure Mean [Right Arm] Pulse Oximetry 99 99 Oxygen Delivery Method Sepsis Recent Fever Within 48 Hours Sepsis New/Unexplained Change in Mental Status Sepsis Action Taken by Nursing 06/11/23 15:50 06/11/23 15:57 06/11/23 16:00 Temperature Temperature Source Pulse Rate 90 91 H Pulse Rate [Apical] 94 H Pulse Rate from SpO2 Sensor 90 91 H Pulse Rhythm Pulse Rhythm [Apical] Pulse Strength [Apical] Respiratory Rate 13 14 20 Respiratory Effort / Characteristics Non-Labored Spontaneous Respiratory Depth Normal Respiratory Pattern Regular Blood Pressure Blood Pressure [Right Arm] 132/64 Blood Pressure Mean Blood Pressure Mean [Right Arm] 86 Pulse Oximetry 97 96 99 Oxygen Delivery Method Room Air Sepsis Recent Fever Within 48 Hours Sepsis New/Unexplained Change in Mental Status Sepsis Action Taken by Nursing 06/11/23 16:00 06/11/23 16:01 06/11/23 16:10 Temperature Temperature Source Pulse Rate 92 H 95 H Pulse Rate [Apical] Pulse Rate from SpO2 Sensor 92 H 95 H Pulse Rhythm Pulse Rhythm [Apical] Pulse Strength [Apical] Respiratory Rate 16 22 Respiratory Effort / Characteristics Respiratory Depth Respiratory Pattern Blood Pressure 136/62 Blood Pressure [Right Arm] Blood Pressure Mean 98 Blood Pressure Mean [Right Arm] Pulse Oximetry 96 99 Oxygen Delivery Method Sepsis Recent Fever Within 48 Hours Sepsis New/Unexplained Change in Mental Status Sepsis Action Taken by Nursing 06/11/23 16:51 06/11/23 17:00 06/11/23 17:00 Temperature Temperature Source Pulse Rate 103 H 89 Pulse Rate [Apical] Pulse Rate from SpO2 Sensor Pulse Rhythm Pulse Rhythm [Apical] Pulse Strength [Apical] Respiratory Rate 16 24 Respiratory Effort / Characteristics Respiratory Depth Respiratory Pattern Blood Pressure 126/64 Blood Pressure [Right Arm] Blood Pressure Mean 94 Blood Pressure Mean [Right Arm] Pulse Oximetry Oxygen Delivery Method Sepsis Recent Fever Within 48 Hours Sepsis New/Unexplained Change in Mental Status Sepsis Action Taken by Nursing 06/11/23 17:10 06/11/23 17:21 06/11/23 17:30 Temperature Temperature Source Pulse Rate 89 87 85 Pulse Rate [Apical] Pulse Rate from SpO2 Sensor Pulse Rhythm Pulse Rhythm [Apical] Pulse Strength [Apical] Respiratory Rate 18 14 14 Respiratory Effort / Characteristics Respiratory Depth Respiratory Pattern Blood Pressure Blood Pressure [Right Arm] Blood Pressure Mean Blood Pressure Mean [Right Arm] Pulse Oximetry Oxygen Delivery Method Sepsis Recent Fever Within 48 Hours Sepsis New/Unexplained Change in Mental Status Sepsis Action Taken by Nursing 06/11/23 17:40 06/11/23 17:50 06/11/23 17:59 Temperature Temperature Source Pulse Rate 84 81 95 H Pulse Rate [Apical] Pulse Rate from SpO2 Sensor 83 Pulse Rhythm Pulse Rhythm [Apical] Pulse Strength [Apical] Respiratory Rate 14 14 16 Respiratory Effort / Characteristics Respiratory Depth Respiratory Pattern Blood Pressure Blood Pressure [Right Arm] Blood Pressure Mean Blood Pressure Mean [Right Arm] Pulse Oximetry 100 Oxygen Delivery Method Sepsis Recent Fever Within 48 Hours Sepsis New/Unexplained Change in Mental Status Sepsis Action Taken by Nursing 06/11/23 18:00 06/11/23 18:00 06/11/23 18:01 Temperature Temperature Source Pulse Rate 87 Pulse Rate [Apical] 78 Pulse Rate from SpO2 Sensor Pulse Rhythm Pulse Rhythm [Apical] Pulse Strength [Apical] Respiratory Rate 20 14 Respiratory Effort / Characteristics Non-Labored Spontaneous Respiratory Depth Normal Respiratory Pattern Regular Blood Pressure 154/72 H Blood Pressure [Right Arm] 154/72 H Blood Pressure Mean 120 Blood Pressure Mean [Right Arm] 99 Pulse Oximetry 95 Oxygen Delivery Method Room Air Sepsis Recent Fever Within 48 Hours Sepsis New/Unexplained Change in Mental Status Sepsis Action Taken by Nursing 06/11/23 18:10 06/11/23 18:20 Temperature Temperature Source Pulse Rate 81 83 Pulse Rate [Apical] Pulse Rate from SpO2 Sensor Pulse Rhythm Pulse Rhythm [Apical] Pulse Strength [Apical] Respiratory Rate 15 16 Respiratory Effort / Characteristics Respiratory Depth Respiratory Pattern Blood Pressure Blood Pressure [Right Arm] Blood Pressure Mean Blood Pressure Mean [Right Arm] Pulse Oximetry Oxygen Delivery Method Sepsis Recent Fever Within 48 Hours Sepsis New/Unexplained Change in Mental Status Sepsis Action Taken by Nursing Laboratory Data 06/11/23 14:10 06/11/23 14:10 Lab Results 06/11/23 06/11/23 06/11/23 Range/Units 14:10 14:39 16:35 WBC 4.42 L (4.8-10.8) K/ul RBC 3.96 L (4.70-6.10) M/uL Hgb 13.1 L (14.0-18.0) g/dl Hct 38.5 L (42.0-52.0) % MCV 97.2 (80.0-100.0) fL MCH 33.1 (25.0-34.0) pg MCHC 34.0 (32.0-36.0) g/dL RDW Std Deviation 50.6 H (36.4-46.3) fL RDW Coeff of Abhijit 14.3 (11.5-14.5) % Plt Count 79 L (130-400) K/uL MPV 10.6 (9.4-12.4) fL Immature Gran % (Auto) 0.0 % Neut % (Auto) 58.9 % Lymph % (Auto) 22.9 % Hand % (Auto) 13.6 % Eos % (Auto) 3.2 % Baso % (Auto) 1.4 % Neut # (Auto) 2.61 (1.40-6.50) K/uL Lymph # (Auto) 1.01 L (1.20-3.40) K/uL Hand # (Auto) 0.60 H (0.11-0.59) K/uL Eos # (Auto) 0.14 (0.00-0.50) K/uL Baso # (Auto) 0.06 (0.00-0.20) K/uL Immature Gran # (Auto) 0.00 L (0.01-0.20) K/uL PT 12.8 H (9.0-12.0) Seconds INR 1.2 H (0.9-1.1) APTT 24 (21-31) Seconds PTT Ratio 0.9 Sodium 140 (136-145) mmol/L Potassium 3.8 (3.5-5.1) mmol/L Chloride 111 H (98-107) mmol/L Carbon Dioxide 23 (21-32) mmol/L Anion Gap 6 (3-11) BUN 13 (6-23) mg/dl Creatinine 0.62 (0.6-1.4) mg/dl Est Cr Clr Drug Dosing 128.9 ml/min Est GFR ( Amer) 122.4 ml/min Est GFR (Non-Af Amer) 105.6 ml/min BUN/Creatinine Ratio 21.0 H (10-20) Glucose 87 (70-99(Fasting)) mg/dl Calcium 9.0 (8.6-10.3) mg/dl Total Bilirubin 2.4 H (0.2-1.0) mg/dl AST 43 H (13-39) U/L ALT 26 (7-52) U/L Alkaline Phosphatase 84 (34-104) U/L Ammonia 92.0 H (18-72) umol/L Total Creatine Kinase 164 (30-223) U/L Troponin I High Sens 11.2 (0-20) pg/ml Total Protein 6.0 (6.0-8.3) gm/dl Albumin 3.2 L (3.4-5.0) gm/dl Globulin 2.8 (2.5-4.0) gm/dl Albumin/Globulin Ratio 1.1 (0.9-2) Lipase 24 (11-82) U/L Urine Color Dark Yellow Urine Appearance Clear (Clear) Urine pH 6.0 (4.5-7.5) Ur Specific [place] > 1.045 H (1.000-1.030) Urine Protein Trace H (Negative) Urine Glucose (UA) Negative (Negative) Urine Ketones Trace H (Negative) Urine Blood 1+ H (Negative) Urine Nitrite Positive A (Negative) Urine Bilirubin 1+ H (Negative) Urine Urobilinogen Negative (Negative) Ur Leukocyte Esterase Trace H (Negative) Urine WBC (Auto) 0-5 (0-5) /hpf Urine RBC (Auto) 3-5 H (0-2) /hpf U Hyaline Cast (Auto) 6-10 H (0-2) /lpf U Epithel Cells (Auto) 3-5 H (0-2) /hpf Urine Bacteria (Auto) None Seen (None Seen) Hyaline Casts Present A (None Presnt) /lpf Urine Opiates Screen (Neg) Ur Methadone, Qual (Neg) Urine Barbiturates (Neg) Ur Phencyclidine (PCP) (Neg) U Amphetamin/Meth Scrn (Neg) MDMA (Ecstasy) Screen (Neg) U Benzodiazepines Scrn (Neg) Ur Cocaine Metabolite (Neg) U Marijuana (THC) Screen (Neg) 06/11/23 Range/Units 18:00 WBC (4.8-10.8) K/ul RBC (4.70-6.10) M/uL Hgb (14.0-18.0) g/dl Hct (42.0-52.0) % MCV (80.0-100.0) fL MCH (25.0-34.0) pg MCHC (32.0-36.0) g/dL RDW Std Deviation (36.4-46.3) fL RDW Coeff of Abhijit (11.5-14.5) % Plt Count (130-400) K/uL MPV (9.4-12.4) fL Immature Gran % (Auto) % Neut % (Auto) % Lymph % (Auto) % Hand % (Auto) % Eos % (Auto) % Baso % (Auto) % Neut # (Auto) (1.40-6.50) K/uL Lymph # (Auto) (1.20-3.40) K/uL Hand # (Auto) (0.11-0.59) K/uL Eos # (Auto) (0.00-0.50) K/uL Baso # (Auto) (0.00-0.20) K/uL Immature Gran # (Auto) (0.01-0.20) K/uL PT (9.0-12.0) Seconds INR (0.9-1.1) APTT (21-31) Seconds PTT Ratio Sodium (136-145) mmol/L Potassium (3.5-5.1) mmol/L Chloride (98-107) mmol/L Carbon Dioxide (21-32) mmol/L Anion Gap (3-11) BUN (6-23) mg/dl Creatinine (0.6-1.4) mg/dl Est Cr Clr Drug Dosing ml/min Est GFR ( Amer) ml/min Est GFR (Non-Af Amer) ml/min BUN/Creatinine Ratio (10-20) Glucose (70-99(Fasting)) mg/dl Calcium (8.6-10.3) mg/dl Total Bilirubin (0.2-1.0) mg/dl AST (13-39) U/L ALT (7-52) U/L Alkaline Phosphatase (34-104) U/L Ammonia (18-72) umol/L Total Creatine Kinase (30-223) U/L Troponin I High Sens (0-20) pg/ml Total Protein (6.0-8.3) gm/dl Albumin (3.4-5.0) gm/dl Globulin (2.5-4.0) gm/dl Albumin/Globulin Ratio (0.9-2) Lipase (11-82) U/L Urine Color Urine Appearance (Clear) Urine pH (4.5-7.5) Ur Specific [place] (1.000-1.030) Urine Protein (Negative) Urine Glucose (UA) (Negative) Urine Ketones (Negative) Urine Blood (Negative) Urine Nitrite (Negative) Urine Bilirubin (Negative) Urine Urobilinogen (Negative) Ur Leukocyte Esterase (Negative) Urine WBC (Auto) (0-5) /hpf Urine RBC (Auto) (0-2) /hpf U Hyaline Cast (Auto) (0-2) /lpf U Epithel Cells (Auto) (0-2) /hpf Urine Bacteria (Auto) (None Seen) Hyaline Casts (None Presnt) /lpf Urine Opiates Screen Neg (Neg) Ur Methadone, Qual Neg (Neg) Urine Barbiturates Neg (Neg) Ur Phencyclidine (PCP) Neg (Neg) U Amphetamin/Meth Scrn Neg (Neg) MDMA (Ecstasy) Screen Neg (Neg) U Benzodiazepines Scrn Neg (Neg) Ur Cocaine Metabolite Neg (Neg) U Marijuana (THC) Screen Neg (Neg) Administered Medications Acetaminophen (Acetaminophen 325 Mg Tab) 650 mg PO Q4H PRN PRN Reason: Pain or Fever Stop: 07/11/23 19:57 Last Admin: 06/11/23 21:27 Dose: 650 mg Documented By: BLANE Sodium Chloride (Nss) 1,000 mls @ 80 mls/hr IV .[id number] COUNTS INCLUDE 234 BEDS AT THE [facility] Stop: 06/12/23 08:27 Last Admin: 06/11/23 20:26 Dose: 80 mls/hr Documented By: BLANE Lactulose (Lactulose Syrup 20 Gm/30 Ml Udc) 40 gm PO BID COUNTS INCLUDE 234 BEDS AT THE [facility] Stop: 07/11/23 20:59 Last Admin: 06/11/23 20:57 Dose: Not Given Documented By: ROSENDO Nicotine (Nicotine 21 Mg/24 Hr Tdsy) 1 patch TD HS COUNTS INCLUDE 234 BEDS AT THE [facility] Stop: 07/11/23 20:59 Last Admin: 06/11/23 21:18 Dose: 1 patch Documented By: BLANE Rifaximin (Rifaximin 550 Mg Tablet) 550 mg PO BID COUNTS INCLUDE 234 BEDS AT THE [facility] Stop: 07/11/23 20:59 Last Admin: 06/11/23 20:57 Dose: Not Given Documented By: ROSENDO Discontinued Medications Sodium Chloride (Nss) 500 mls @ 999 mls/hr IV .Q31M ONE Stop: 06/11/23 17:09 Last Infusion: 06/11/23 17:18 Dose: Infused Documented By: Admin: 06/11/23 16:43 Dose: 999 mls/hr Documented By: BLANE Ceftriaxone Sodium (Rocephin) 2,000 mg in 50 mls @ 100 mls/hr IV NOW STA Stop: 06/11/23 18:11 Last Infusion: 06/11/23 18:25 Dose: Infused Documented By: Admin: 06/11/23 17:49 Dose: 100 mls/hr Documented By: BLANE Ioversol (Optiray 320 125ml) 116 ml IV ONCE ONE Stop: 06/11/23 15:32 Last Admin: 06/11/23 15:32 Dose: 116 ml Documented By: MARA Lactulose (Lactulose Syrup 30 Gm/45 Ml Udp) 30 gm PO NOW STA Stop: 06/11/23 18:07 Last Admin: 06/11/23 19:23 Dose: 30 gm Documented By: BLANE Rifaximin (Rifaximin 550 Mg Tablet) 550 mg PO ONCE ONE Stop: 06/11/23 18:06 Last Admin: 06/11/23 19:23 Dose: 550 mg Documented By: BLANE Imaging Data Radiologist's Impression: Chest X-Ray 06/11/23 14:09 XR chest 1V portable CLINICAL HISTORY: Shortness of breath. COMPARISON STUDY: Chest radiograph November 01, 2021. FINDINGS: Lung volumes are normal. Lungs are clear. There is no pneumothorax or pleural effusion. Cardiac size is normal. Mediastinal contours are normal. There is no evidence for pulmonary edema. IMPRESSION: No acute cardiopulmonary findings. ACT 112: Negative or not required by law. Electronically signed by: Leonardo Brewster M.D. 06/11/2023 2:34 PM Abdomen/Pelvis CT 06/11/23 14:34 CT abd pelvis IV con only CLINICAL HISTORY: fall, back pain, liver hx TECHNIQUE: Helical axial images of the abdomen and pelvis were obtained and displayed. Automated dose lowering techniques and/or adjustment according to patient size were utilized for this exam. This exam was performed with intravenous contrast. CT DOSE: 3079.05 mGy.cm COMPARISON: Comparison is made to CT abdomen pelvis 12/08/2020 FINDINGS: Lower chest: No acute abnormality. Liver: Nodularity of the liver is seen compatible with cirrhosis. Recanalization of the umbilical vein is seen. The portal vein is intact. Gallbladder and biliary tree: No calcified gallstones. Normal caliber wall. No intra- or extrahepatic biliary ductal dilation. Pancreas: Unremarkable, no focal lesions. Spleen: Splenomegaly is noted, the spleen measures 14 cm. Adrenals: Unremarkable. Kidneys and ureters: Unremarkable. Bladder: Unremarkable. Reproductive organs: Unremarkable. Bowel: Unremarkable. Lymph nodes Retroperitoneal: Unremarkable. Pelvic: Unremarkable. Mesenteric: Unremarkable. Peritoneum: Normal. No ascites is seen. Vessels: Atherosclerotic calcifications are seen. Abdominal wall: Unremarkable. Bones: Degenerative changes in the visualized spine, with continued degeneration of the L5 vertebral body. Right hip arthroplasty noted. Posterior fixation hardware is seen in the lumbar spine. Grade 1 anterolisthesis of L4 over L5 is seen. IMPRESSION: 1. No acute abnormality is seen in particular no evidence of acute fracture in this patient with recent fracture. 2. Cirrhosis, portal hypertension, and splenomegaly. ACT 112: Negative or not required by law. Electronically signed by: Arthur Palmer M.D. 06/11/2023 4:[address] 06/11/23 14:34 CT cervical spine wo con CLINICAL HISTORY: fall TECHNIQUE: Multidetector row helical CT of the cervical spine was performed without administration of intravenous contrast. Coronal and sagittal reformations were obtained. Automated dose lowering techniques and/or adjustment according to patient size were utilized for this exam. Comparison: Comparison is made to CT cervical spine 11/08/2021 FINDINGS: No acute fractures or subluxations are identified. Degenerative changes are seen in the visualized spine. The alignment is normal. Soft tissues are unremarkable. IMPRESSION: Degenerative changes without evidence of acute bony injury. ACT 112: Negative or not required by law. Electronically signed by: Arthur Palmer M.D. 06/11/2023 4:00 PM Chest CTA 06/11/23 14:34 CHEST CTA for PULMONARY ARTERIES CT DOSE: HISTORY: Fall. Shortness of breath. TECHNIQUE: Multiaxial CT images of the chest were performed following the intravenous administration of contrast to evaluate the pulmonary arteries. 3D/Maximal intensity projection images were also obtained. Sagittal and coronal reformations were also reviewed. A dose lowering technique was utilized adhering to the principles of ALARA. COMPARISON STUDY: Chest CTA 02/22/2017. FINDINGS: Normal caliber thoracic aorta with no evidence for a dissection. The heart is normal in size. No pleural or pericardial effusions. Pericardial calcifications again noted. No filling defect within the pulmonary arteries to suggest a pulmonary embolus. The thyroid gland enhances normally. Normal esophagus. No mediastinal or hilar lymphadenopathy. Cirrhosis, splenomegaly, and upper abdominal varicosities are noted. This is better appreciated on the same day abdomen and pelvis CT. There are old, healed right lower rib fractures. No acute fractures identified. The central airways are patent. No pneumothorax. No focal lung consolidations to suggest a pneumonia. No evidence for pulmonary edema. IMPRESSION: 1. No evidence for pulmonary embolus. 2. No focal lung consolidations to suggest a pneumonia. 3. Pericardial calcifications again noted. 4. Cirrhosis, splenomegaly, and upper abdominal varicosities again noted. 5. No acute traumatic process within the chest. ACT 112: Negative or not required by law. Electronically signed by: Ángel Wilson M.D. 06/11/2023 4:[address] 06/11/23 14:34 CT OF THE HEAD WITHOUT CONTRAST CLINICAL HISTORY: Fall. COMPARISON STUDY: Head CT November 08, 2021. TECHNIQUE: Helical axial images of the head were obtained without IV contrast. Automated exposure control was utilized for the study. A dose lowering technique was utilized adhering to the principles of ALARA. FINDINGS: No acute intracranial hemorrhage, midline shift or mass effect is present. The ventricular system is unremarkable. The basal cisterns are patent. No extra-axial collections are present. There are no findings to suggest acute dural sinus thrombosis or acute territorial infarct. No significant calvarial abnormalities are present. Visualized portions of the sinuses and mastoid air cells are clear. IMPRESSION: 1. No acute intracranial findings. 2. No calvarial fractures. ACT 112: Negative or not required by law. Electronically signed by: Leonardo Brewster M.D. 06/11/2023 4:05 PM Discharge Plan Visit Data Chief Complaint: Shortness of Breath/Dyspnea Stated Complaint: SHORT OF BREATH, BACK PAIN, SHAKY FEELING ED Provider: Fredo Edwards Discharge Problem: Fall, History of cirrhosis of liver, Acute UTI, Increased ammonia level Patient Disposition: Being Evaluated by Hospitalist Discharge Instructions Interventions: ED Discharge Assessment Last Done: 06/11/23 19:58
[2023-06-11 14:51] LABS: Basophils # (auto) 0.06 K/uL (0.00-0.20); Basophils % (auto) 1.4 %; Eosinophils # (auto) 0.14 K/uL (0.00-0.50); Eosinophils % (auto) 3.2 %; Hematocrit (blood only) 38.5 % (42.0-52.0); Hemoglobin 13.1 g/dl (14.0-18.0); Lymphocytes # (auto) 1.01 K/uL (1.20-3.40); Lymphocytes % (auto) 22.9 %; Mean Corpuscular Hemoglobin 33.1 pg (25.0-34.0); Mean Corpuscular Volume 97.2 fL (80.0-100.0); Mean Platelet Volume 10.6 fL (9.4-12.4); Monocytes % (auto) 13.6 %; Neutrophils # (auto) 2.61 K/uL (1.40-6.50); Neutrophils % (auto) 58.9 %; Platelet Count 79 K/uL (130-400); RDW Coefficient of Variation 14.3 % (11.5-14.5); RDW Standard Deviation 50.6 fL (36.4-46.3); Red Blood Count 3.96 M/uL (4.70-6.10); White Blood Count 4.42 K/ul (4.8-10.8)
[2023-06-11 15:00] LABS: Albumin Globulin Ratio 1.1 (0.9-2); Albumin Level 3.2 gm/dl (3.4-5.0); Bilirubin,Total 2.4 mg/dl (0.2-1.0); Creatinine Clr Calc Pharmacy 128.9 ml/min; Est GFR (African American) 122.4 ml/min; Est GFR (Non-African American) 105.6 ml/min; Globulin 2.8 gm/dl (2.5-4.0); Potassium 3.8 mmol/L (3.5-5.1)
[2023-06-11 15:05] LABS: Troponin I High Sensitivity 11.2 pg/ml (0-20)
[2023-06-11 15:07] LABS: INR 1.2 (0.9-1.1); Partial Thromboplastin Ratio 0.9; Partial Thromboplastin Time 24 Seconds (21-31); Prothrombin Time 12.8 Seconds (9.0-12.0)
[2023-06-11] MEDS: OPTIRAY 320 125ml IV ONE (15:32)
--- NOTE | 2023-06-11 16:02 | CT Scan Report ---
CT cervical spine wo con CLINICAL HISTORY: fall TECHNIQUE: Multidetector row helical CT of the cervical spine was performed without administration of intravenous contrast. Coronal and sagittal reformations were obtained. Automated dose lowering techn iques and/or adjustment according to patient size were utilized for this exam. Comparison: Comparison is made to CT cervical spine 11/08/2021 FINDINGS: No acute fractures or subluxations are identified. Degenerative changes are seen in the visualized sp ine. The alignment is normal. Soft tissues are unremarkable. IMPRESSION: Degenerative changes without evidence of acute bony injury. ACT 112: Negative or not required by law. Electronically signed by: Arthur Palmer M.D. 06/11/2023 4:00 PM
--- NOTE | 2023-06-11 16:07 | CT Scan Report ---
CT OF THE HEAD WITHOUT CONTRAST CLINICAL HISTORY: Fall. COMPARISON STUDY: Head CT November 08, 2021. TECHNIQUE: Helical axial images of the head were obtained without IV contrast. Automated exposure con trol was utilized for the study. A dose lowering technique was utilized adhering to the principles o f ALARA. FINDINGS: No acute intracranial hemorrhage, midline shift or mass effect is present. The ventricular system is unremarkable. The basal cisterns are patent. No extra-axial collections are present. There are no findings to suggest acute dural sinus thrombosis or acute territorial infarct. No significant calvarial abnormalities are present. Visualized portions of the sinuses and mastoid air cells are lalita ar. IMPRESSION: 1. No acute intracranial findings. 2. No calvarial fractures. ACT 112: Negative or not required by law. Electronically signed by: Leonardo Brewster M.D. 06/11/2023 4:05 PM
--- NOTE | 2023-06-11 16:10 | CT Scan Report ---
CT abd pelvis IV con only CLINICAL HISTORY: fall, back pain, liver hx TECHNIQUE: Helical axial images of the abdomen and pelvis were obtained and displayed. Automated dose lowering techniques and/or adjustment according to patient size were utilized for this exam. This e xam was performed with intravenous contrast. CT DOSE: 3079.05 mGy.cm COMPARISON: Comparison is made to CT abdomen pelvis 12/08/2020 FINDINGS: Lower chest: No acute abnormality. Liver: Nodularity of the liver is seen compatible with cirrhosis. Recanalization of the umbilical vei n is seen. The portal vein is intact. Gallbladder and biliary tree: No calcified gallstones. Normal caliber wall. No intra- or extrahepatic biliary ductal dilation. Pancreas: Unremarkable, no focal lesions. Spleen: Splenomegaly is noted, the spleen measures 14 cm. Adrenals: Unremarkable. Kidneys and ureters: Unremarkable. Bladder: Unremarkable. Reproductive organs: Unremarkable. Bowel: Unremarkable. Lymph nodes Retroperitoneal: Unremarkable. Pelvic: Unremarkable. Mesenteric: Unremarkable. Peritoneum: Normal. No ascites is seen. Vessels: Atherosclerotic calcifications are seen. Abdominal wall: Unremarkable. Bones: Degenerative changes in the visualized spine, with continued degeneration of the L5 vertebral body. Right hip arthroplasty noted. Posterior fixation hardware is seen in the lumbar spine. Grade 1 anterolisthesis of L4 over L5 is seen. IMPRESSION: 1. No acute abnormality is seen in particular no evidence of acute fracture in this patient with rec ent fracture. 2. Cirrhosis, portal hypertension, and splenomegaly. ACT 112: Negative or not required by law. Electronically signed by: Arthur Palmer M.D. 06/11/2023 4:08 PM
--- NOTE | 2023-06-11 16:27 | CT Scan Report ---
CHEST CTA for PULMONARY ARTERIES CT DOSE: HISTORY: Fall. Shortness of breath. TECHNIQUE: Multiaxial CT images of the chest were performed following the intravenous administration of contrast to evaluate the pulmonary arteries. 3D/Maximal intensity projection images were also obta ined. Sagittal and coronal reformations were also reviewed. A dose lowering technique was utilized a dhering to the principles of ALARA. COMPARISON STUDY: Chest CTA 02/22/2017. FINDINGS: Normal caliber thoracic aorta with no evidence for a dissection. The heart is normal in siz e. No pleural or pericardial effusions. Pericardial calcifications again noted. No filling defect wit hin the pulmonary arteries to suggest a pulmonary embolus. The thyroid gland enhances normally. Francia l esophagus. No mediastinal or hilar lymphadenopathy. Cirrhosis, splenomegaly, and upper abdominal va ricosities are noted. This is better appreciated on the same day abdomen and pelvis CT. There are old , healed right lower rib fractures. No acute fractures identified. The central airways are patent. No pneumothorax. No focal lung consolidations to suggest a pneumonia. No evidence for pulmonary edema. IMPRESSION: 1. No evidence for pulmonary embolus. 2. No focal lung consolidations to suggest a pneumonia. 3. Pericardial calcifications again noted. 4. Cirrhosis, splenomegaly, and upper abdominal varicosities again noted. 5. No acute traumatic process within the chest. ACT 112: Negative or not required by law. Electronically signed by: Ángel Wilson M.D. 06/11/2023 4:26 PM
[2023-06-11] MEDS: SODIUM CHLORIDE 0.9% 500 ML IV ONE (16:43)
[2023-06-11 17:34] LABS: Appearance Urine Clear (Clear); Bacteria Urine Automated None Seen (None Seen); Bilirubin Urine 1+ (Negative); Blood Urine 1+ (Negative); Color Urine Dark Yellow; Glucose Urine UA Negative (Negative); Hyaline Casts Urine Present /lpf (None Presnt); Ketones Urine Trace (Negative); Leukocyte Esterase Urine Trace (Negative); Nitrite Urine Positive (Negative); Protein Urine Trace (Negative); Specific Gravity Urine > 1.045 (1.000-1.030); Urobilinogen Urine Negative (Negative); WBC Urine Automated 0-5 /hpf (0-5)
[2023-06-11] MEDS: cefTRIAXone SODIUM 2,000 MG/50 ML BAG IV STA (17:49)
--- NOTE | 2023-06-11 18:39 | History & Physical Report ---
Date of Service June 11, 2023 Assessment & Plan (1) Acute hepatic encephalopathy: (2) Ambulatory dysfunction: (3) Falls: (4) Cirrhosis: (5) Acute UTI: Plan This is a 63 year-old male who has significant past medical history of Alcoholic cirrhosis, esophageal varices, chronic thrombocytopenia in setting of cirrhosis, HLD, GERD, poor peripheral neuropathy, chronic back pain, history of alcohol abuse, history of cocaine and marijuana use who presents to ED After he rolled out of bed today and also felt short of breath and health ride van. Cirrhosis Acute Hepatic Encephalopathy chronic, 2/2 alcohol and reports cessation since 2014. other than encephalopathy, compensated from a volume stand point NH3 is mildly elevated, he is alert and oriented x 2, + Asterixis mild encephalopathy states he is having 4-6 BM daily continue Lactulose, rifaximin Hold Aldactone and torsemide, will give gentle 1L of IVF as pt appears dry resume diuretics as soon as able Continue thiamine and B1 check cbc, cmp. NH3 in a.m T bili elevated at 2.4, CT a/p w/o obstructive process Fall Striking of head Possible concussion vs Hepatic Encephalopathy admit to [facility] head unremarkable, no obvious head deformity he is alert and oriented x 2 will obtain UDS, UTI may also be playing a factor Recurrent UTI Patient follows with [facility] urology. He recently underwent cystoscopy due to intravesicular inflammation on May 2021. Due to persistence of inflammation in the context of previous UTI patient was prescribed extended course of Bactrim single strength twice daily, he states he finished this UA with nitrites and leuks, but negative bacturia await urine culture Will not treat Pancytopenia 2/2 cirrhosis monitor cbc Ambulatory Dysfunction Falls 2/2 encephalopathy PT/OT Hx of esophageal varices: No bleeding issues currently continue PPI Tobacco abuse encourage cessation nicotine patch DVT prophylaxis: SCDS for now, monitor plt ct Code Status Full Code PCP: Radha Dispo: [facility] Pt was seen and examined in collaboration with Dr. Healy please see addendum A total of 76 minutes was spent coordinating, documenting, and providing care for this patient excluding time spent in the performance of separately billed services. This included personally viewing all current laboratories and imaging studies, medication reconciliation, outpatient chart review, and discussion with specialists. History of Present Illness Chief Complaint: Rolled out of bed today; Also felt SOB in health ride van so brought to ED. Primary Care Provider: Najma Garcia MD This is a 63 year-old male who has significant past medical history of Alcoholic cirrhosis, esophageal varices, chronic thrombocytopenia in setting of cirrhosis, HLD, GERD, poor peripheral neuropathy, chronic back pain, history of alcohol abuse, history of cocaine and marijuana use who presents to ED After he rolled out of bed today and also felt short of breath and health ride van. He states when he woke up this morning he rolled out of bed landing on a nightstand. He is unsure if he hit his head but states that he does have a headache. He denies any loss of consciousness. He recalls all events. He was eventually able to get to his feet and get ready for his orthopedics appointment. He was going to see orthopedics today secondary to hip pain. He states he took his medications, specifically lactulose prior to leaving for his appointment. On the way to his appointment he felt short of breath and therefore health ride called EMS. He has history of frequent falls and chronic back pain. He feels that his falls have become less frequent. He denies any alcohol use but he does still chew tobacco, fourth of again daily. He denies any illicit drug or marijuana use. He states his bowels are moving anywhere from 4-6 times a day. Denies any fever, chills, sweats, lightheadedness, dizziness, chest pain, current shortness of breath, cough, months, nausea or vomiting. He feels his appetite is good. He currently lives with a friend Mona Sherman. In ED there was concern regarding patient's confusion and him being, "out of it." His lab work was significant for elevated ammonia level at 82, total bili 2.4, H&H 13.1 and 38.5 and a platelet count of 79. His urinalysis was concerning for infection. He underwent head CT which is negative for any acute abnormality. CT scan of abdomen pelvis was also negative for acute abnormality but did reveal hepatic cirrhosis. In ED he received rifaximin and lactulose as well as IV antibiotics. Allergies Allergy/AdvReac Type Severity Reaction Status Date / Time No Known Allergies Allergy Verified 06/11/23 17:41 Home Medications Medication Instructions Recorded Confirmed Type diclofenac sodium 1 % topical gel 2 g topical BID PRN Pain 02/29/20 06/11/23 History rifaximin 550 mg tablet (Xifaxan) 550 mg PO BID 04/04/20 06/11/23 History spironolactone 100 mg tablet 100 mg PO QAM 04/04/20 06/11/23 History thiamine mononitrate (vit B1) 100 100 mg PO QAM 04/04/20 06/11/23 History mg tablet fluticasone propionate 50 2 spray intranasal DAILY Allergy 04/16/20 06/11/23 History mcg/actuation nasal Symptoms spray,suspension (Flonase Allergy Relief) folic acid 1 mg tablet 1 mg PO QAM 09/19/20 06/11/23 History albuterol sulfate 90 mcg/actuation 2 puff inhalation Q4 PRN Shortness 04/25/21 06/11/23 History aerosol inhaler Of Breath torsemide 20 mg tablet 20 mg PO AMPM 04/25/21 06/11/23 History valacyclovir 1 gram tablet 1,000 mg PO QAM 11/01/21 06/11/23 History (Valtrex) lactulose 20 gram oral packet 40 g PO BID 01/12/22 06/11/23 History duloxetine 60 mg capsule,delayed 60 mg PO QAM 01/22/23 06/11/23 History release calcium carbonate (Tums E-X) 300 mg PO TID PRN Heartburn 06/11/23 06/11/23 History magnesium oxide 400 mg PO DAILY 06/11/23 06/11/23 History pantoprazole 40 mg tablet,delayed 40 mg PO DAILY 06/11/23 06/11/23 History release sildenafil (pulm.hypertension) 20 40 mg PO WK PRN Sexual Activity 06/11/23 06/11/23 History mg tablet (Revatio) Past Med/Surg History Medical History History of COVID-19 11/01/21 @ [facility]--he was in the hospital for weakness and confusion and they did a COVID test and was found to be positive, states he had no symptoms of covid--no symptoms now Thrombocytopenia Tobacco abuse Depression with anxiety Osteoarthritis of right knee Esophageal varices Urinary tract infection hx, recurrent Lumbar radiculopathy Lumbar disc herniation Sacroiliitis Alcoholic cirrhosis GERD (gastroesophageal reflux disease) Portal hypertensive gastropathy Portal vein thrombosis hx History of hepatitis C pt states he no longer has History of alcohol abuse per pt quit 2013 Hx of thrombocytopenia Baseline platelets ~ 50-75k. 2/2 cirrhosis. Hx of esophageal varices 2/2 chronic portal HTN Hx of encephalopathy 04/2020 [facility] Hx of gynecomastia History of anemia Hypertension Hx of ascites History of cirrhosis of liver D/T ALCOHOL Chronic back pain Hearing deficit right ear perf eardrum Surgical History History of lumbar spinal fusion (~05/27/20) x2 History of esophagogastroduodenoscopy (EGD) History of colonoscopy with polypectomy 06/2022 @ [facility] History of total right hip arthroplasty 2018 Hx of decompression of ulnar nerve RIGHT History of tooth extraction all teeth removed Family History (Updated 06/11/23 @ 18:37 by Fidelia May PA-C) Father Diabetes Other No family history of adverse response to anesthesia Social History Smoking Status: Former smoker Tobacco Type: Cigarettes Second Hand Exposure: No; Do You Dip or Chew Tobacco: Yes (chews (advised on policy)); Hx Alcohol Use: No Hx Substance Use: No Preferred Language: Faroese Communication Ability: Effective Nail Setter Required: No Beliefs That Will Affect Care: None marital status: / Current Living Situation: Family Current Living Situation Comment: Lives with housemate How many Children do You have: 3 Feels Safe at Home: Yes Safety Concerns: Feels Safe At This Time Assistive Devices: Denture - Upper, Denture - Lower, Glasses and Walker Review of Systems Review of Systems: All systems reviewed & are unremarkable except as noted in HPI & below Physical Exam Physical Exam: Constitutional: Thin, frail, male, appears older than stated age, bilateral temporal wasting, vitals as above, NAD, sitting up in bed, pleasant, conversing easily Head: Normocephalic, Atraumatic Eyes: PERRL, conjunctivae normal, anicteric sclerae ENMT: external ear and nose normal, oropharynx normal Neck: trachea midline, no thyromegaly normal visual inspection Respiratory: normal respiratory effort, lungs clear to auscultation, no wheeze, rales, rhonchi. Normal insp/exp effort, no accessory muscle use Cardiovascular: RRR, no murmur, no edema Vessels: no JVD or carotid bruit Chest: + small bruising scattered on chest Abdomen: normal bowel sounds, soft, nontender, Musculoskeletal: no cyanosis or clubbing, extremities motor strength 5/5 Skin: no rashes, warm and dry normal turgor Neurologic: PERRL, EOMI, accommodation nl, no face palsy, no dysarthria CN's II-XI intact bilaterally and moves all extremities +asterixis Psychiatric: A+Ox2 self and place, he does know the president, euthymic affect Lymphatic: no cervical or axillary lymphadenopathy : deferred Results & Data Results & Data Vital Signs (Past 12 Hours) Vital Signs Temp Pulse Pulse Resp BP BP Pulse Ox 06/11/23 16:00 94 H 20 132/64 99 06/11/23 15:10 79 15 97 06/11/23 15:07 80 18 117/63 96 06/11/23 15:00 77 06/11/23 14:57 85 19 117/63 99 06/11/23 14:57 99 06/11/23 14:08 84 22 98 06/11/23 13:59 36.6 C 84 22 115/71 98 O2 Del Method 06/11/23 16:00 Room Air 06/11/23 15:10 06/11/23 15:07 06/11/23 15:00 06/11/23 14:57 Room Air 06/11/23 14:57 Room Air 06/11/23 14:08 Room Air 06/11/23 13:59 Room Air Diagnostic Findings Chest X-Ray 06/11/23 14:09 XR chest 1V portable CLINICAL HISTORY: Shortness of breath. COMPARISON STUDY: Chest radiograph November 01, 2021. FINDINGS: Lung volumes are normal. Lungs are clear. There is no pneumothorax or pleural effusion. Cardiac size is normal. Mediastinal contours are normal. There is no evidence for pulmonary edema. IMPRESSION: No acute cardiopulmonary findings. ACT 112: Negative or not required by law. Electronically signed by: Leonardo Brewster M.D. 06/11/2023 2:34 PM Abdomen/Pelvis CT 06/11/23 14:34 CT abd pelvis IV con only CLINICAL HISTORY: fall, back pain, liver hx TECHNIQUE: Helical axial images of the abdomen and pelvis were obtained and displayed. Automated dose lowering techniques and/or adjustment according to patient size were utilized for this exam. This exam was performed with intravenous contrast. CT DOSE: 3079.05 mGy.cm COMPARISON: Comparison is made to CT abdomen pelvis 12/08/2020 FINDINGS: Lower chest: No acute abnormality. Liver: Nodularity of the liver is seen compatible with cirrhosis. Recanalization of the umbilical vein is seen. The portal vein is intact. Gallbladder and biliary tree: No calcified gallstones. Normal caliber wall. No intra- or extrahepatic biliary ductal dilation. Pancreas: Unremarkable, no focal lesions. Spleen: Splenomegaly is noted, the spleen measures 14 cm. Adrenals: Unremarkable. Kidneys and ureters: Unremarkable. Bladder: Unremarkable. Reproductive organs: Unremarkable. Bowel: Unremarkable. Lymph nodes Retroperitoneal: Unremarkable. Pelvic: Unremarkable. Mesenteric: Unremarkable. Peritoneum: Normal. No ascites is seen. Vessels: Atherosclerotic calcifications are seen. Abdominal wall: Unremarkable. Bones: Degenerative changes in the visualized spine, with continued degeneration of the L5 vertebral body. Right hip arthroplasty noted. Posterior fixation hardware is seen in the lumbar spine. Grade 1 anterolisthesis of L4 over L5 is seen. IMPRESSION: 1. No acute abnormality is seen in particular no evidence of acute fracture in this patient with recent fracture. 2. Cirrhosis, portal hypertension, and splenomegaly. ACT 112: Negative or not required by law. Electronically signed by: Arthur Palmer M.D. 06/11/2023 4:[address] 06/11/23 14:34 CT cervical spine wo con CLINICAL HISTORY: fall TECHNIQUE: Multidetector row helical CT of the cervical spine was performed without administration of intravenous contrast. Coronal and sagittal reformations were obtained. Automated dose lowering techniques and/or adjustment according to patient size were utilized for this exam. Comparison: Comparison is made to CT cervical spine 11/08/2021 FINDINGS: No acute fractures or subluxations are identified. Degenerative changes are seen in the visualized spine. The alignment is normal. Soft tissues are unremarkable. IMPRESSION: Degenerative changes without evidence of acute bony injury. ACT 112: Negative or not required by law. Electronically signed by: Arthur Palmer M.D. 06/11/2023 4:00 PM Chest CTA 06/11/23 14:34 CHEST CTA for PULMONARY ARTERIES CT DOSE: HISTORY: Fall. Shortness of breath. TECHNIQUE: Multiaxial CT images of the chest were performed following the intravenous administration of contrast to evaluate the pulmonary arteries. 3D/Maximal intensity projection images were also obtained. Sagittal and coronal reformations were also reviewed. A dose lowering technique was utilized adhering to the principles of ALARA. COMPARISON STUDY: Chest CTA 02/22/2017. FINDINGS: Normal caliber thoracic aorta with no evidence for a dissection. The heart is normal in size. No pleural or pericardial effusions. Pericardial calcifications again noted. No filling defect within the pulmonary arteries to suggest a pulmonary embolus. The thyroid gland enhances normally. Normal esophagus. No mediastinal or hilar lymphadenopathy. Cirrhosis, splenomegaly, and upper abdominal varicosities are noted. This is better appreciated on the same day abdomen and pelvis CT. There are old, healed right lower rib fractures. No acute fractures identified. The central airways are patent. No pneumothorax. No focal lung consolidations to suggest a pneumonia. No evidence for pulmonary edema. IMPRESSION: 1. No evidence for pulmonary embolus. 2. No focal lung consolidations to suggest a pneumonia. 3. Pericardial calcifications again noted. 4. Cirrhosis, splenomegaly, and upper abdominal varicosities again noted. 5. No acute traumatic process within the chest. ACT 112: Negative or not required by law. Electronically signed by: Ángel Wilson M.D. 06/11/2023 4:[address] 06/11/23 14:34 CT OF THE HEAD WITHOUT CONTRAST CLINICAL HISTORY: Fall. COMPARISON STUDY: Head CT November 08, 2021. TECHNIQUE: Helical axial images of the head were obtained without IV contrast. Automated exposure control was utilized for the study. A dose lowering technique was utilized adhering to the principles of ALARA. FINDINGS: No acute intracranial hemorrhage, midline shift or mass effect is present. The ventricular system is unremarkable. The basal cisterns are patent. No extra-axial collections are present. There are no findings to suggest acute dural sinus thrombosis or acute territorial infarct. No significant calvarial abnormalities are present. Visualized portions of the sinuses and mastoid air c ells are clear. IMPRESSION: 1. No acute intracranial findings. 2. No calvarial fractures. ACT 112: Negative or not required by law. Electronically signed by: Leonardo Brewster M.D. 06/11/2023 4:05 PM Medications Administered Medication List Discontinued Medications Sodium Chloride (Nss) 500 mls @ 999 mls/hr IV .Q31M ONE Stop: 06/11/23 17:09 Last Infusion: 06/11/23 17:18 Dose: Infused Documented By: Admin: 06/11/23 16:43 Dose: 999 mls/hr Documented By: BLANE Ceftriaxone Sodium (Rocephin) 2,000 mg in 50 mls @ 100 mls/hr IV NOW STA Stop: 06/11/23 18:11 Last Infusion: 06/11/23 18:25 Dose: Infused Documented By: Admin: 06/11/23 17:49 Dose: 100 mls/hr Documented By: BLANE Ioversol (Optiray 320 125ml) 116 ml IV ONCE ONE Stop: 06/11/23 15:32 Last Admin: 06/11/23 15:32 Dose: 116 ml Documented By: MARA ECG Additional Comments: I have independently reviewed and interpreted patient's admitting EKG which revealed: Ventricular rate 84 bpm, normal sinus rhythm, no ST or T wave change noted, QTc 463 MS Code Status & VTE Plan Code Status FULL CODE VTE Prophylaxis Plan VTE Prophylaxis will be ordered: Yes Supervising Physician Co-Signing Physician Notes I have seen and examined the patient and have discussed the case with the provider above. I have reviewed the advanced practitioner's documentation, and I agree with, and take responsibility for that plan of care. 63 yo chronic cirrhotic man presents with nonspecific shakiness. He states that yesterday he was riding a 4 masterson, but today he is having difficulty walking well. He appears to have asterixis on exam with an elevated ammonia. He has no evidence of bleeding, no ascites and exam is otherwise as noted above. If he has hepatic encephalopathy, it is mild as he is oriented x 3 and showing no signs of delirium or dong confusion. He is ambulating independently. Agree with no treatment for UA findings which are not consistent with infection in this asymptomatic man. He has some scrapes from his reported fall at home this morning but appears to have suffered no significant trauma and reports not striking his head. CT head was negative. Labs/imaging meds reiviewed. Agree with bringing him in for lactulose, observation and PT/OT assessments. DO Niraj
[2023-06-11 19:20] LABS: Amphetamines+Metham, Urine Neg (Neg); Barbiturates, Urine Neg (Neg); Benzodiazepine, Urine Neg (Neg); Cocaine, Urine Neg (Neg); MDMA (Ecstacy), Urine Neg (Neg); Marijuana, Urine Neg (Neg); Methadone, Urine Neg (Neg); Opiate, Urine Neg (Neg); Phencyclidine, Urine Neg (Neg)
[2023-06-11] MEDS: rifAXIMin 550 MG TABLET PO ONE (19:23)
[2023-06-11] MEDS: LACTULOSE SYRUP 30 GM/45 ML UDP PO STA (19:23)
[2023-06-11] MEDS ORDERED: ALUMINUM/MAGNESIUM SUSP 30 ML UDC PO PRN (19:58)
[2023-06-11] MEDS ORDERED: ONDANSETRON INJ 2 MG/ML 2 ML VIAL IV PRN (19:58)
[2023-06-11] MEDS: SODIUM CHLORIDE 0.9% 1,000 ML IV SCH (20:26)
[2023-06-11] MEDS: LACTULOSE SYRUP 20 GM/30 ML UDC PO SCH (20:57)
[2023-06-11] MEDS: rifAXIMin 550 MG TABLET PO SCH (20:57)
[2023-06-11] MEDS: NICOTINE 21 MG/24 HR TDSY TD SCH (21:18)
[2023-06-11] MEDS: ACETAMINOPHEN 325 MG TAB PO PRN (21:27)
[2023-06-12 04:26] LABS: Basophils # (auto) 0.05 K/uL (0.00-0.20); Basophils % (auto) 1.3 %; Eosinophils # (auto) 0.19 K/uL (0.00-0.50); Hematocrit (blood only) 32.9 % (42.0-52.0); Immature Granulocytes # (auto) 0.01 K/uL (0.01-0.20); Immature Granulocytes % (auto) 0.3 %; Lymphocytes # (auto) 1.27 K/uL (1.20-3.40); Lymphocytes % (auto) 33.5 %; Mean Corpuscular Hemoglobin 32.6 pg (25.0-34.0); Mean Corpuscular Hgb Conc 33.4 g/dL (32.0-36.0); Mean Corpuscular Volume 97.6 fL (80.0-100.0); Mean Platelet Volume 10.2 fL (9.4-12.4); Monocytes # (auto) 0.58 K/uL (0.11-0.59); Monocytes % (auto) 15.3 %; Neutrophils # (auto) 1.69 K/uL (1.40-6.50); Neutrophils % (auto) 44.6 %; Platelet Count 62 K/uL (130-400); RDW Coefficient of Variation 14.2 % (11.5-14.5); RDW Standard Deviation 50.8 fL (36.4-46.3); Red Blood Count 3.37 M/uL (4.70-6.10); White Blood Count 3.79 K/ul (4.8-10.8)
[2023-06-12 04:51] LABS: Albumin Globulin Ratio 1.1 (0.9-2); Albumin Level 2.7 gm/dl (3.4-5.0); BUN Creatinine Ratio 25.9 (10-20); Bilirubin,Total 1.2 mg/dl (0.2-1.0); Calcium 7.7 mg/dl (8.6-10.3); Creatinine Clr Calc Pharmacy 137.7 ml/min; Est GFR (African American) 125.8 ml/min; Est GFR (Non-African American) 108.5 ml/min; Globulin 2.4 gm/dl (2.5-4.0); Magnesium 1.9 mg/dl (1.7-2.4); Potassium 3.6 mmol/L (3.5-5.1); Total Protein 5.1 gm/dl (6.0-8.3)
--- NOTE | 2023-06-12 06:22 | Electrocardiogram Report ---
Test Reason : Blood Pressure : / mmHG Vent. Rate : 084 BPM Atrial Rate : 084 BPM P-R Int : 172 ms QRS Dur : 092 ms QT Int : 392 ms P-R-T Axes : 050 049 071 degrees QTc Int : 463 ms Normal sinus rhythm Normal ECG When compared with ECG of 08-NOV-2021 12:35, No significant change was found Confirmed by Ney Wright ([id number]) on 06/12/2023 6:22:08 AM Referred By: Confirmed By:Ney Wright
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
--- OUTSIDE RECORDS SUMMARY | 2023-06-12 07:58 | External Medical Summary | Summary of Care ---
Author Name Unknown Organization [facility] Address [address] [place] [address] Phone [phone] Care Team Providers Care Auto Radio Mechanic Name Role Phone Najma Garcia MD Primary Care Provide r Reason for Visit * Reason Onset Date Comments Medication Refill 06/07/2023 Encounter Details Date Type Department Care Team (Late st Contact Info) Description 06/07/2023 Refill Family Medicine [address] [address] Najma Garcia MD [address] [place], [place] [address] [address] Allergies No known active allergiesdocumented as of this encounter (statuses as of 06/07/2023) Medications Medication Sig Dispensed Refills Start Date End Date Status Nerve Stimulator (CLEVER CHOICE TENS UNIT) DEVIIndications:Naval Aircrewman Tactical Helicopter sandra midline low back pain without sciatica [...] Follows with spine but would avoid further [facility] opiates. Esophageal varices without bleeding 02/23/2022 Protein-calorie [...] Grade 1-2 [] Grade 3-4 *A total Aqccc-Ozeteosv-Ujms score of 5 to 6 is considered [...] he has can lift his arm up senior care to the side or front of him [...] he has can lift his arm up senior care to the side or front of him [...] liver with ascites 05/29/2013 12/15/2016 Overview: admitted [facility], 3 liters taken off Alcoholic cirrhosis [...] mRNA, LNP-s, No Pre serve, 2-Dose Series ([employer]) 04/12/2021,09/29/2020,08/25/2020 HEP A - Hepatitis A (Adult [...] encounter Miscellaneous Notes * Telephone Encounter - India Ashley PHARM Tech - 06/07/2023 5:40 PM EDT Pt stating that diclofenac 3% with the oxycodone is working well together Please advise Pt pt calling requesting the following medication below that is listed as "Historical". The following information was provided: Medication Name: oxycodone Strength: 5 mg Directions: qid Preferred Quantity: 120 Previous Prescriber: marya Donovan Preferred Pharmacy: [facility] Please review and approve if appropriate. Thank you, India Ashley CPhT Player Manager II [facility]) 06/07/2023,5:41 PM documented in this encounter Plan of Treatment Upcoming Encounters Date Type Department Care Team (Late st Contact Info) Description 09/18/2023 11:15 AM EDT Office Visit Urology, [address] [place] [address] Clinton Garcia MD [address] [facility] [address] [place] [address] Scheduled Procedures Name Priority Associated Diagnoses Date/Ti [...] Documents on File Type Date Recorded Patient Dramatic Director Expl anation Advance Directives and Living Will 05/14/2020 ADVANCE DIRECTIVE / LIVING WILL Power of Metal Coater Operator 05/14/2020 POWER OF A TTORNEY Care Teams Auto Radio Mechanic Relationship Specialty Start Date End Date Najma Garcia MD [address] [place] [address] [place] [id number] PCP - General Family Medicine 01/09/12 documented as of this encounter
--- OUTSIDE RECORDS SUMMARY | 2023-06-12 07:58 | External Medical Summary | Summary of Care ---
Author Name Unknown Organization [facility] Address [address] [place] [address] Phone [phone] Care Team Providers Care Diesel Fitter Mechanic Name Role Phone Najma Garcia MD Primary Care Provide r Reason for Visit * Reason Onset Date Comments Medication Refill 06/07/2023 Encounter Details Date Type Department Care Team (Late st Contact Info) Description 06/07/[address] [address] Najma Garcia MD [address] [place] [address] [place] [address] Medication Refill Allergies No known active allergiesdocumented as of this encounter (statuses as of 06/08/2023) Medications Medication Sig Dispensed Refills Start Date End Date Status Nerve Stimulator (CLEVER CHOICE TENS UNIT) DEVIIndications:Spine Nurse sandra midline low back pain without sciatica [...] as of this encounter (statuses as of 06/08/2023) Active Problems Problem Noted Date Diagnosed Date Thrombocytopenia 01/24/2023 Recurrent major depressive disorder 01/24/2023 Portal hypertension 01/24/2023 Sacroiliitis, not elsewhere classified Chronic pain syndrome 03/29/2022 Last Assessment & Plan: Currently not on any opiates and suhas recommend staying off of them moving forward. Follows with spine but would avoid further detention opiates. Esophageal varices without bleeding 02/23/2022 Protein-calorie [...] Grade 1-2 [] Grade 3-4 *A total Bpkui-Sbmmvcuk-Dudc score of 5 to 6 is considered [...] as of this encounter (statuses as of 06/08/2023) Resolved Problems Problem Noted Date Diagnosed Date [...] he has can lift his arm up retirement to the side or front of him [...] he has can lift his arm up retirement to the side or front of him [...] initial encounter 02/16/2020 07/30/2020 Other pancytopenia 10/24/2019 Secondary esophageal varices without bleeding 02/27/19 20 03/29/2022 Last Assessment & Plan: Continue pantoprazole Essential [...] ascites 05/29/2013 12/15/2016 Overview: admitted [facility], 3 liters taken off Alcoholic cirrhosis of liver 02/14/2013 12/15/2016 Alcohol abuse 01/09/2012 12/28/2014 Ascites 01/09/2012 09/18/2017 Epididymal cyst 01/09/2012 03/30/2017 Genital herpes 01/15/2018 Esophageal varices 2 Portal hypertensive gastropathy 04/15/2020 Alcoholic cirrhosis of liver without ascites 04/15/2020 Tympanic membrane perforation, right 07/30/2020 Overview: digging in ear with toothpick documented as of this encounter (statuses as of 06/08/2023) Immunizations Name Administration Dates Next Due COVID-19 mRNA, LNP-s, No Pre serve, 2-Dose Series (ICONOGRAFICO) 04/12/2021,09/29/2020,08/25/2020 HEP A - Hepatitis A (Adult [...] encounter Miscellaneous Notes * Telephone Encounter - Magdalene Rueda CPhT - 06/08/2023 9:41 AM EDT pt calling to check on status of oxycodone. Asking high priority Thank you, Magdalene Rueda CPhT II Oil Analyst [facility] ([facility]) (Formerly Telepharmacy) 06/08/2023, 9:41 AM * Telephone Encounter - India Ashley PHARM Tech - 06/07/2023 5:40 PM EDT Pt stating that diclofenac 3% with the oxycodone is working well together Please advise Pt pt calling requesting the following medication below that is listed as "Historical". The following information was provided: Medication Name: oxycodone Strength: 5 mg Directions: qid Preferred Quantity: 120 Previous Prescriber: Hollywood, marya Preferred Pharmacy: [email or web address] Please review and approve if appropriate. Thank you, India Ashley, [facility] Oil Analyst II [facility])(Formerly Telepharmacy) 06/07/2023,5:41 PM documented in this encounter Plan of Treatment Upcoming Encounters Date Type Department Care Team (Late st Contact Info) Description 09/18/2023 11:15 AM EDT Office Visit Urology, [facility] [address] [facility] [place] [address] Clinton Garcia MD [address] [facility] [address] [place] [address] [...] Documents on File Type Date Recorded Patient Edge Cutting Machine Operator Expl anation Advance Directives and Living Will 05/14/2020 ADVANCE DIRECTIVE / LIVING WILL Power of Nail Polish Brush Machine Feeder 05/14/2020 POWER OF A TTORNEY Care Teams Diesel Fitter Mechanic Relationship Specialty Start Date End Date Najma Garcia MD [address] [place] [address] [place] [id number] PCP - General Family Medicine 01/09/12 documented as of this encounter
--- OUTSIDE RECORDS SUMMARY | 2023-06-12 07:58 | External Medical Summary | Summary of Care ---
Author Name Unknown Organization [facility] Address [address] [place] [address] Phone [phone] Care Team Providers Care Make Up Operator Helper Name Role Phone Najma Garcia MD Primary Care Provide r Reason for Visit * Reason Onset Date Comments Other 03/05/2023 Diclofenac Sodiu m 1 % External Gel (Voltaren), (dose change) Encounter Details Date Type Department Care Team (Late st Contact Info) Description 03/05/2023 Telephone Family [address] [address] Najma Garcia MD [address] [place], [place] [address] [address] Other (Diclofenac Sodium 1 % External Gel ... Allergies No known active allergiesdocumented as of this encounter (statuses as of 06/04/2023) Medications Medication Sig Dispensed Refills Start Date End Date Status Nerve Stimulator (CLEVER CHOICE TENS UNIT) DEVIIndications:Ch ronic midline low back pain without sciatica Use as directed. Use to lower back area in 15 minute intervals up to three times a day 1 Each 0 0 Active Sildenafil Citrate 20 MG Oral Tablet (REVATIO)Indicatio ns:ED (erectile dysfunction) of organic origin Take 2 Tabs by mouth once a week. Take one hour prior to sexual activity 8 Tab 11 0 Active Potassium Chloride 20 MEQ Oral PacketIndications: Hypokalemia MIX 1 PACKET IN WATER AND TAKE ORALLY DAILY 90 Packet 3 3 Active Additional Information Patient not taking.Reported on 04/16/2023 Tums E-X 750 750 MG Oral Tablet Chewable (calcium CARBonate) Take 1 Tablet by mouth 3 times a day as needed for Heartburn. 0 Active Ondansetron 4 MG Oral Tablet Disintegrating (Zofran) DISSOLVE ONE TABLET IN MOUTH EVERY SIX HOURS NEEDED 30 Tablet 0 3 Active Additional Information Patient not taking.Reported on 04/19/2023 Spironolactone 100 MG Oral Tablet (Aldactone) Take 1 Tablet by mouth in the morning. 90 Tablet 3 3 Active Albuterol Sulfate HFA 108 (90 Base) MCG/ACT Inhalation Aerosol Solution inhale 2 puffs by mouth every 4 hours as needed for shortness of breath 18 g 0 3 Active Fluticasone Propionate 50 MCG/ACT Nasal Suspension (Flonase)Indicatio ns:Acute maxillary sinusitis, recurrence not specified ADMINISTER 2 SPRAYS INTO EACH NOSTRIL DAILY. 48 g 3 3 Active DULoxetine HCl 60 MG Oral Capsule Delayed Release Particles (Cymbalta)Indicati ons:Current episode of major depressive disorder without prior episode, unspecified depression episode severity TAKE ONE CAPSULE BY MOUTH IN THE MORNING do not cut, crush or chew 30 Capsule 5 3 Active Triamcinolone Acetonide 0.1 % External Cream (Aristocort)Indica tions:Dermatitis apply to affected area twice daily 45 g 0 3 Active Additional Information Patient not taking.Reported on 04/19/2023 Baclofen 10 MG Oral Tablet (Lioresal) Take 1 Tablet by mouth 3 times a day as needed for Muscle spasms. 30 Tablet 0 3 Active Additional Information Patient not taking.Reported on 04/19/2023 Kristalose 20 GM Oral Packet (Lactulose) TAKE 1 PACKET BY MOUTH IN THE MORNING, 1 PACKET AT NOON AND 1 PACKET BEFORE BEDTIME. 100 Each 5 3 Active Additional Information Patient taking differently: 2 Packet Oral BID (.AM/PM), Informant: At Discharge, Reported on 04/16/2023 Lidocaine 0.5 % External GelIndications:Ant n of right heel Apply topically to affected area 2 times a day. Apply to right heel twice a day as needed for pain 170 g 0 3 Active Additional Information Patient not taking.Reported on 04/19/2023 rifAXIMin 550 MG Oral Tablet (Xifaxan) Take 1 Tablet by mouth in the morning and 1 Tablet before bedtime. 180 Tablet 3 3 024 Discontinued(Re fill) Torsemide 20 MG Oral Tablet (Demadex) TAKE ONE TABLET BY MOUTH TWICE DAILY. (IN THE MORNING AND AT 2 PM) TO DECREASE NIGHTTIME URINATION 60 Tablet 5 3 024 Discontinued(Re fill) Gabapentin 100 MG Oral Capsule (Neurontin)Indicat ions:Peripheral polyneuropathy,Chr onic bilateral low back pain without sciatica Take 1 Capsule by mouth 2 times a day. 60 Capsule 5 3 024 Discontinued(Re fill) valACYclovir HCl 1 GM Oral Tablet (Valtrex) Take 1 Tablet by mouth in the morning. 90 Tablet 1 3 024 Discontinued(Re fill) Diclofenac Sodium 1 % External Gel (Voltaren) APPLY 4 GRAMS TOPICALLY TO AFFECTED AREA IN THE MORNING, NOON, AND BEFORE BEDTIME 300 g 5 3 024 Discontinued Thiamine HCl 100 MG Oral Tablet (vitamin B-1)Indications:Al coholic cirrhosis of liver without ascites (HCC) TAKE ONE TABLET BY MOUTH EVERY DAY 90 Tablet 0 3 024 Discontinued Pantoprazole Sodium 40 MG Oral Tablet Delayed Release (Protonix)Indicati ons:Alcoholic cirrhosis of liver without ascites (HCC),Protein-maya juan m malnutrition (HCC),Secondary esophageal varices without bleeding (HCC),Alcohol use disorder, severe, in sustained remission (HCC),Esophageal varices (HCC) TAKE 1 TABLET BY MOUTH EVERY MORNING 90 Tablet 1 3 024 Discontinued(Re fill) predniSONE 20 MG Oral Tablet (Deltasone) 1 tab 3 times a day for 3 days, then 1 tab 2 times a day for 3 days, then 1 tab daily for 3 days 18 Tablet 0 3 024 Discontinued Gabapentin 4 % TOP cream 0.1 g. 0 3 024 Discontinued(Ma dication List Clean Up) Folic Acid 1 MG Oral Tablet TAKE ONE TABLET BY MOUTH EVERY DAY 90 Tablet 3 4 024 Discontinued(Re fill) Nitrofurantoin Monohyd Macro 100 MG Oral Capsule (Macrobid) Take 1 Capsule by mouth in the morning and 1 Capsule before bedtime. With food.. 20 Capsule 0 4 024 Discontinued Magnesium 400 MG Oral Tablet Take 400 mg by mouth once. 0 024 Discontinued(Re fill) Diclofenac Sodium 3 % External GelIndications:Sac roiliitis, not elsewhere classified (HCC),Chronic pain syndrome,Chronic bilateral low back pain with right-sided sciatica Apply to back twice daily 100 g 1 4 024 Discontinued(Re fill) documented as of this encounter (statuses as of 06/04/2023) Active Problems Problem Noted Date Diagnosed Date Thrombocytopenia 01/24/2023 Recurrent major depressive disorder 01/24/2023 Portal hypertension 01/24/2023 Sacroiliitis, not elsewhere classified 3 Chronic pain syndrome 03/29/2022 Last Assessment & Plan: Currently not on any opiates and suhas recommend staying off of them moving forward. Follows with spine but would avoid further terminal computer operator opiates. Esophageal varices without bleeding 02/23/2022 Protein-calorie [...] Grade 1-2 [] Grade 3-4 *A total Jfgtv-Wqvjjsgr-Pmgi score of 5 to 6 is considered Child-Do class A (well-compensated disease), 7 to 9 is class B (significant functional compromise), and 10 to 15 is class C (decompensated disease). These classes correlate with one- and two-year patient survival: class A: 100 and 85%; class B: 80 and 60%; and class C: 45 and 35%. With adherence to medications, Shadis cirrhosis is overall stable. It's recommended to [...] as of this encounter (statuses as of 06/04/2023) Resolved Problems Problem Noted Date Diagnosed Date [...] he has can lift his arm up jail to the side or front of him [...] he has can lift his arm up jail to the side or front of him [...] 10/24/2019 0 Secondary esophageal varices without bleeding 02/27/19 20 [...] liver with ascites 05/29/2013 12/15/2016 Overview: admitted [facility], 3 liters taken off Alcoholic cirrhosis of liver 02/14/2013 12/15/2016 Alcohol abuse 01/09/2012 12/28/2014 Ascites 01/09/2012 09/18/2017 Epididymal cyst 01/09/2012 03/30/2017 Genital herpes 01/15/2018 Esophageal varices 2 Portal hypertensive gastropathy 04/15/2020 Alcoholic cirrhosis of liver without ascites 04/15/2020 Tympanic membrane perforation, right 07/30/2020 Overview: digging in ear with toothpick documented as of this encounter (statuses as of 06/04/2023) Immunizations Name Administration Dates Next Due COVID-19 mRNA, LNP-s, No Pre serve, 2-Dose Series (SCOUPY) 04/12/2021,09/29/2020,08/25/2020 HEP A - Hepatitis A (Adult [...] encounter Miscellaneous Notes * Telephone Encounter - Najma Garcia MD - 03/06/2023 3:28 PM EST Signed * Telephone Encounter - Tara Taylor PHARM Tech - 03/06/2023 9:46 AM EST Pt calling to check on status of rx. Caller can be reached at [phone]. Thanks, Tara Taylor Dry Dip Worker [facility] ([facility]) 03/06/2023,9:46 AM * Telephone Encounter - Constanza Morrison CPhT - 03/05/2023 5:06 PM EST Scheduling calling on behalf of pt, when transferring over the line got disconnected. I tried calling pt back at [phone], [facility] for pt to return cb. Pt calling in to request a dose change on their Diclofenac Sodium 1 % External Gel (Voltaren) . Current dose: 1% Requested dose: 3% Reason for request: not helping Preferred pharmacy: [id number] [address] [facility] Patient unwilling to speak with pharmacist at this time. Routing to pharmacist pool to advise. Thank you, Constanza Morrison Dry Dip Worker [facility] 03/05/2023, 5:07 PM documented in this encounter Plan of Treatment Upcoming Encounters Date Type Department Care Team (Late st Contact Info) Description 09/18/2023 11:15 AM EDT Office Visit Urology, [facility] 132 [facility] [place] [address] Clinton Garcia MD [address] [place] [address] Scheduled Procedures Name Priority Associated Diagnoses Date/Ti [...] Not on filedocumented as of this encounter Visit Diagnoses Diagnosis Sacroiliitis, not elsewhere classified (HCC)- Primary Sacroiliitis, not elsewhere classified Chronic pain syndrome Chronic bilateral low back pain with right-sided sciatica documented in this encounter Advance Directives Documents on File Type Date Recorded Patient Vertical Punch Operator Expl anation Advance Directives and Living Will 05/14/2020 ADVANCE DIRECTIVE / LIVING WILL Power of Mixer Wet Pour 05/14/2020 POWER OF A TTORNEY Care Teams Make Up Operator Helper Relationship Specialty Start Date End Date Najma Garcia MD [address] [place] [address] [place] [id number] PCP - General Family Medicine 01/09/12 documented as of this encounter
[2023-06-12] MEDS: MAGNESIUM OXIDE 400 MG TAB PO SCH (08:25)
[2023-06-12] MEDS: DULoxetine HCL 60 MG CAP PO SCH (08:25)
[2023-06-12] MEDS: PANTOprazole 40 MG TAB PO SCH (08:25)
[2023-06-12] MEDS: FOLIC ACID 1 MG TAB PO SCH (08:25)
[2023-06-12] MEDS: valACYclovir HCL 500 MG TABLET PO SCH (08:26)
[2023-06-12] MEDS: THIAMINE HCL 100 MG TAB PO SCH (08:26)
[2023-06-12] MEDS ORDERED: cefTRIAXone SODIUM 2,000 MG/50 ML BAG IV SCH (09:00)
--- NOTE | 2023-06-12 14:14 | Hospitalist Progress Note ---
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 He is being managed for the following: Cirrhosis Acute Hepatic Encephalopathy chronic, 2/2 alcohol and reports cessation since 2014. other than encephalopathy, compensated from a volume stand point CT head with no acute finding. CTAP with no acute finding. Toxicology screen is negative. NH3 is elevated. Patient reports bowel movement Per goal. Continue with lactulose and rifaximin mild encephalopathy, continue to monitor. Resume Aldactone and torsemide. Continue thiamine and B1. Labs in AM. Fall Striking of head Possible concussion vs Hepatic Encephalopathy CT head unremarkable, no obvious head deformity he is alert and oriented x 2 UDS is negative. PT/OT when able. Recurrent UTI Patient follows with [facility] urology. He recently underwent cystoscopy due to intravesicular inflammation on May 2021. Due to persistence of inflammation in the context of previous UTI patient was prescribed extended course of Bactrim single strength twice daily, he states he finished this UA with nitrites and leuks, but negative bacturia await urine culture Will not treat for now until c/s available. Pancytopenia 2/2 cirrhosis monitor cbc Ambulatory Dysfunction Falls 2/2 encephalopathy PT/OT Hx of esophageal varices: No bleeding issues currently continue PPI Tobacco abuse encourage cessation nicotine patch DVT prophylaxis: SCDS for now, monitor plt ct Code Status Full Code PCP: Radha Dispo: med tele Admission and Anticipated Discharge Date Admission Date: June 11, 2023 Subjective patient was seen and examined at bedside. Patient was lying in bed, on room air, NAD, alert and oriented x 2. Patient denies headache or dizziness, reports eating okay, denies any new acute event overnight. Patient reports multiple loose bowel movements as per goal given history of cirrhosis. Physical Exam Physical Exam: Constitutional: Thin, frail, male, appears older than stated age, bilateral temporal wasting, vitals as above, NAD, sitting up in bed, pleasant, conversing easily Head: Normocephalic, Atraumatic Eyes: PERRL, conjunctivae normal, anicteric sclerae ENMT: external ear and nose normal, oropharynx normal Neck: trachea midline, no thyromegaly normal visual inspection Respiratory: normal respiratory effort, lungs clear to auscultation, no wheeze, rales, rhonchi. Normal insp/exp effort, no accessory muscle use Cardiovascular: RRR, no murmur, no edema Vessels: no JVD or carotid bruit Chest: + small bruising scattered on chest Abdomen: normal bowel sounds, soft, nontender, Musculoskeletal: no cyanosis or clubbing, extremities motor strength 5/5 Skin: no rashes, warm and dry normal turgor Neurologic: PERRL, EOMI, accommodation nl, no face palsy, no dysarthria CN's II-XI intact bilaterally and moves all extremities +asterixis Psychiatric: A+Ox2 self and [address], he does know the president, euthymic affect Lymphatic: no cervical or axillary lymphadenopathy : deferred Results & Data Results & Data Vital Signs (Past 12 Hours) Vital Signs Pulse Pulse Resp BP Pulse Ox Pulse Ox O2 Del Method 06/12/23 14:04 98 06/12/23 14:03 82 13 146/86 H 98 Room Air 06/12/23 12:00 94 H 18 150/76 H 97 Room Air 06/12/23 07:35 79 14 118/61 97 Room Air 06/12/23 07:05 81 O2 Del Method O2 Flow Rate 06/12/23 14:04 Room Air 0 06/12/23 14:03 06/12/23 12:00 06/12/23 07:35 06/12/23 07:05
[2023-06-12] MEDS: TORSEMIDE 20 MG TAB PO SCH (15:45)
--- OUTSIDE RECORDS SUMMARY | 2023-06-12 16:24 | External Medical Summary | Summary of Care ---
Author Name Unknown Organization [facility] Address [address] [place] [address] Phone [phone] Care Team Providers Care Grinding And Spraying Supervisor Name Role Phone Najma Garcia MD Primary Care Provide r Reason for Visit * Reason Onset Date Comments Medication Refill 06/07/2023 Encounter Details Date Type Department Care Team (Late st Contact Info) Description 06/07/[address] [address] Najma Garcia MD [address] [place] [address] [place] [id number] Medication Refill Allergies No known active allergiesdocumented as of this encounter (statuses as of 06/11/2023) Medications Medication Sig Dispensed Refills Start Date End Date Status Nerve Stimulator (CLEVER CHOICE TENS UNIT) DEVIIndications:Social Services Analyst sandra midline low back pain without sciatica [...] as of this encounter (statuses as of 06/11/2023) Active Problems Problem Noted Date Diagnosed Date Thrombocytopenia 01/24/2023 Recurrent major depressive disorder 01/24/2023 Portal hypertension 01/24/2023 Sacroiliitis, not elsewhere classified Chronic pain syndrome 03/29/2022 Last Assessment & Plan: Currently not on any opiates and suhas recommend staying off of them moving forward. Follows with spine but would avoid further halfway opiates. Esophageal varices without bleeding 02/23/2022 Protein-calorie [...] Grade 1-2 [] Grade 3-4 *A total Qlxjl-Yxupminb-Ccgg score of 5 to 6 is considered [...] as of this encounter (statuses as of 06/11/2023) Resolved Problems Problem Noted Date Diagnosed Date [...] he has can lift his arm up intermediate to the side or front of him [...] he has can lift his arm up intermediate to the side or front of him [...] liver with ascites 05/29/2013 12/15/2016 Overview: admitted [facility], 3 liters taken off Alcoholic cirrhosis of liver 02/14/2013 12/15/2016 Alcohol abuse 01/09/2012 12/28/2014 Ascites 01/09/2012 09/18/2017 Epididymal cyst 01/09/2012 03/30/2017 Genital herpes 01/15/2018 Esophageal varices 2 Portal hypertensive gastropathy 04/15/2020 Alcoholic cirrhosis of liver without ascites 04/15/2020 Tympanic membrane perforation, right 07/30/2020 Overview: digging in ear with toothpick documented as of this encounter (statuses as of 06/11/2023) Immunizations Name Administration Dates Next Due COVID-19 mRNA, LNP-s, No Pre serve, 2-Dose Series (TVDeck) 04/12/2021,09/29/2020,08/25/2020 HEP A - Hepatitis A (Adult [...] Telephone Encounter - Najma Garcia MD - 06/11/2023 1:44 PM EDT I do not prescribe him oxycodone. He needs to request from prescribing provider * Telephone Encounter - Magdalene Rueda CPhT - 06/08/2023 9:41 AM EDT pt calling to check on status of oxycodone. Asking high priority Thank you, Magdalene Rueda CPhT II [facility]fer [facility] ([facility]) (Formerly Telepharmacy) [...] approve if appropriate. Thank you, India Ashley, [facility] Scarfer II [facility])(Formerly Telepharmacy) 06/07/2023,5:41 PM documented in this encounter Plan of Treatment Upcoming Encounters Date Type Department Care Team (Late st Contact Info) Description 09/18/2023 11:15 AM EDT Office Visit Urology, [facility] 132 [facility] [place] [id number] Clinton Garcia MD 27 [facility] [address] [place] [address] Scheduled Procedures Name Priority Associated Diagnoses Date/Ti [...] Documents on File Type Date Recorded Patient Improvement Coordinator Expl anation Advance Directives and Living Will 05/14/2020 ADVANCE DIRECTIVE / LIVING WILL Power of Mathematician 05/14/2020 POWER OF A TTORNEY Care Teams Grinding And Spraying Supervisor Relationship Specialty Start Date End Date Najma Garcia MD [address] [place] [address] [place] [phone] PCP - General Family Medicine 01/09/12 documented as of this encounter
--- OUTSIDE RECORDS SUMMARY | 2023-06-12 16:24 | External Medical Summary | Summary of Care ---
Author Name Unknown Organization [facility] Address [address] [place] [address] Phone [phone] Care Team Providers Care Tnt Line Supervisor Name Role Phone Najma Garcia MD Primary Care Provide r Reason for Visit * Reason Onset Date Comments Medication Refill 06/07/2023 Encounter Details Date Type Department Care Team (Late st Contact Info) Description 06/07/[address] [phone] Najma Garcia MD [address] [place] [address] [place] [id number] Medication Refill Allergies No known active allergiesdocumented as of this encounter (statuses as of 06/11/2023) Medications Medication Sig Dispensed Refills Start Date End Date Status Nerve Stimulator (CLEVER CHOICE TENS UNIT) DEVIIndications:Web Press Operator Assistant sandra midline low back pain without sciatica [...] Follows with spine but would avoid further assisted opiates. Esophageal varices without bleeding 02/23/2022 Protein-calorie [...] Grade 1-2 [] Grade 3-4 *A total Lannf-Rnaomhzu-Xwur score of 5 to 6 is considered [...] he has can lift his arm up care home to the side or front of him [...] he has can lift his arm up care home to the side or front of him [...] liver with ascites 05/29/2013 12/15/2016 Overview: admitted [facility], 3 liters taken off Alcoholic cirrhosis [...] mRNA, LNP-s, No Pre serve, 2-Dose Series (Revision3) 04/12/2021,09/29/2020,08/25/2020 HEP A - Hepatitis A (Adult [...] Miscellaneous Notes * Telephone Encounter - Magdalene Ruead CPhT - 06/08/2023 9:41 AM EDT pt calling to check on status of oxycodone. Asking high priority Thank you, Magdalene Rueda CPhT II Collections And Archives Director [facility] ([facility]) (Formerly Telepharmacy) [...] Directions: qid Preferred Quantity: 120 Previous Prescriber: Le Mars, marya Preferred Pharmacy: [email or web address] Please review and approve if appropriate. Thank you, India Ashley, [facility] Collections And Archives Director II [facility] Clinical Pharmacy Services([facility])(Formerly Telepharmacy) 06/07/2023,5:41 PM documented in this encounter Plan of Treatment Upcoming Encounters Date Type Department Care Team (Late st Contact Info) Description 09/18/2023 11:15 AM EDT Office Visit Urology, [facility] [address] [facility] [place] [id number] Clinton Garcia MD [address] [facility] [address] [place] [...] Documents on File Type Date Recorded Patient Automotive Customer Experience Advisor Expl anation Advance Directives and Living Will 05/14/2020 ADVANCE DIRECTIVE / LIVING WILL Power of Manager Building 05/14/2020 POWER OF A TTORNEY Care Teams Tnt Line Supervisor Relationship Specialty Start Date End Date Najma Garcia MD [address] [place] [address] [place] [phone] PCP - General Family Medicine 01/09/12 documented as of this encounter
[2023-06-12] MEDS: oxyCODONE HCL IR 5 MG TAB (IMMEDIATE RELEASE) PO STA (20:26)
[2023-06-12] MEDS: DICLOFENAC SOD 1% GEL 100 GM TUBE EXT PRN (22:04)
[2023-06-12] MEDS: SODIUM CHLORIDE 0.65% NA SOLN 45 ML (OCEAN) PRN (22:05)
[2023-06-13 08:45] LABS: Hematocrit (blood only) 35.9 % (42.0-52.0); Hemoglobin 12.5 g/dl (14.0-18.0); Mean Corpuscular Hemoglobin 33.4 pg (25.0-34.0); Mean Corpuscular Hgb Conc 34.8 g/dL (32.0-36.0); Mean Platelet Volume 10.5 fL (9.4-12.4); Platelet Count 69 K/uL (130-400); RDW Coefficient of Variation 13.6 % (11.5-14.5); RDW Standard Deviation 47.8 fL (36.4-46.3); Red Blood Count 3.74 M/uL (4.70-6.10); White Blood Count 4.48 K/ul (4.8-10.8)
[2023-06-13 09:17] LABS: Creatinine Clr Calc Pharmacy 110.3 ml/min; Est GFR (African American) 116.4 ml/min; Est GFR (Non-African American) 100.4 ml/min; Magnesium 1.6 mg/dl (1.7-2.4); Phosphorus 3.6 mg/dl (2.5-4.9); Potassium 3.4 mmol/L (3.5-5.1)
[2023-06-13] MEDS: oxyCODONE HCL IR 5 MG TAB (IMMEDIATE RELEASE) PO STA (10:47)
[2023-06-13] MEDS: SPIRONOLACTONE 100 MG TAB PO SCH (10:49)
--- NOTE | 2023-06-13 16:38 | Discharge Summary ---
Date of Service June 13, 2023 Admission HPI Per Admitting Provider This is a 63 year-old male who has significant past medical history of Alcoholic cirrhosis, esophageal varices, chronic thrombocytopenia in setting of cirrhosis, HLD, GERD, poor peripheral neuropathy, chronic back pain, history of alcohol abuse, history of cocaine and marijuana use who presents to ED After he rolled out of bed today and also felt short of breath and health ride van. He states when he woke up this morning he rolled out of bed landing on a nightstand. He is unsure if he hit his head but states that he does have a headache. He denies any loss of consciousness. He recalls all events. He was eventually able to get to his feet and get ready for his orthopedics appointment. He was going to see orthopedics today secondary to hip pain. He states he took his medications, specifically lactulose prior to leaving for his appointment. On the way to his appointment he felt short of breath and therefore health ride called EMS. He has history of frequent falls and chronic back pain. He feels that his falls have become less frequent. He denies any alcohol use but he does still chew tobacco, fourth of again daily. He denies any illicit drug or marijuana use. He states his bowels are moving anywhere from 4-6 times a day. Denies any fever, chills, sweats, lightheadedness, dizziness, chest pain, current shortness of breath, cough, months, nausea or vomiting. He feels his appetite is good. He currently lives with a friend Mona Sherman. In ED there was concern regarding patient's confusion and him being, "out of it." His lab work was significant for elevated ammonia level at 82, total bili 2.4, H&H 13.1 and 38.5 and a platelet count of 79. His urinalysis was concerning for infection. He underwent head CT which is negative for any acute abnormality. CT scan of abdomen pelvis was also negative for acute abnormality but did reveal hepatic cirrhosis. In ED he received rifaximin and lactulose as well as IV antibiotics. Admission Exam Per Admitting Provider Constitutional: Thin, frail, male, appears older than stated age, bilateral temporal wasting, vitals as above, NAD, sitting up in bed, pleasant, conversing easily Head: Normocephalic, Atraumatic Eyes: PERRL, conjunctivae normal, anicteric sclerae ENMT: external ear and nose normal, oropharynx normal Neck: trachea midline, no thyromegaly normal visual inspection Respiratory: normal respiratory effort, lungs clear to auscultation, no wheeze, rales, rhonchi. Normal insp/exp effort, no accessory muscle use Cardiovascular: RRR, no murmur, no edema Vessels: no JVD or carotid bruit Chest: + small bruising scattered on chest Abdomen: normal bowel sounds, soft, nontender, Musculoskeletal: no cyanosis or clubbing, extremities motor strength 5/5 Skin: no rashes, warm and dry normal turgor Neurologic: PERRL, EOMI, accommodation nl, no face palsy, no dysarthria CN's II-XI intact bilaterally and moves all extremities +asterixis Psychiatric: A+Ox2 self and place, he does know the president, euthymic affect Lymphatic: no cervical or axillary lymphadenopathy : deferred Principal Diagnosis Cirrhosis Acute Hepatic Encephalopathy Discharge Exam Constitutional: Alert oriented x 3; not in distress. Respiratory: normal respiratory effort, lungs clear to auscultation, no wheeze, rales, rhonchi. Normal insp/exp effort, no accessory muscle use Cardiovascular: RRR, no murmur, no edema Vessels: no JVD or carotid bruit Chest: normal inspection of chest Abdomen: normal bowel sounds, soft, nontender, no hepatosplenomegaly Musculoskeletal: no cyanosis or clubbing, extremities motor strength 5/5 Skin: no rashes, warm and dry normal turgor Neurologic: PERRL, EOMI, accommodation nl, no face palsy, no dysarthria CN's II- XI intact bilaterally and moves all extremities Psychiatric: A+Ox3, euthymic affect Discharge Data Allergies Allergy/AdvReac Type Severity Reaction Status Date / Time No Known Allergies Allergy Verified 06/11/23 17:41 Consultations 06/11/23 18:08 ED Decision to Admit Stat Ordered Studies 06/11/23 14:34 CT abd pelvis IV con only Stat CT angio chest PE protocol Stat CT cervical spine wo con Stat CT head/brain wo con Stat Hospital Course (1) Acute hepatic encephalopathy: (2) Ambulatory dysfunction: (3) Falls: (4) Cirrhosis: (5) Acute UTI: Plan This is a 63 year-old male who has significant past medical history of Alcoholic cirrhosis, esophageal varices, chronic thrombocytopenia in setting of cirrhosis, HLD, GERD, poor peripheral neuropathy, chronic back pain, who presents to ED A fter 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 Patient patient denied fever, chills, chest pain, abdomen pain or urinary symptoms. He was admitted for concern of hepatic encephalopathy. CT head without contrast did not show any acute finding Ammonia level was found to be elevated for which he was started on lactulose and rifampicin Patient showed gradual improvement throughout the hospitalization. PT OT evaluation was done; recommended home with home health At the time of discharge, he was alert oriented x 3; no signs or symptoms of hepatic encephalopathy. Patient was discharged home with instruction to follow-up with PCP Please note the above document was generated using voice recognition software. It may contain grammatical, syntax or spelling errors. Any formal questions or concerns about the content, text or information contained within the body of this dictation should be directly addressed to the provider for clarification Total Time Total Time Spent Total Time Spent (In Minutes): 45 Total Time Includes: Examination of the Patient, Discharge Planning, Medication Reconciliation, Communication With Other Providers and Other Discharge Plan Discharge Items Patient Disposition: Home - Self-Care Reason For Visit: HAPATIC ENCEPHALOPATHY Discharge Diagnosis: Hepatic Encephalopathy Activity: Resume your previous activity Non-emergency contact: Primary Care Provider Call non-emergency contact if: you have any medication questions and your symptoms worsen Follow-up/Referrals: Najma Garcia MD [Primary Care Provider] - (Date & Time 06/21/2023 11:40 AM Provider Kermit Roy MD Department Family Medicine [facility] ) Diet: Regular Addtl Attending Provider Instructions: You were admitted to hospital after a fall. The scan didn't show any injuries. Please continue to take your medications as prescribed. Please follow up with your PCP as scheduled Pending Studies at Discharge: No Stand-Alone Forms: My [employer], Smoking Cessation Medications and DC Order Prescriptions: Continued spironolactone 100 mg tablet 100 mg PO QAM Xifaxan 550 mg tablet 550 mg PO BID thiamine mononitrate (vit B1) 100 mg tablet 100 mg PO QAM diclofenac sodium 1 % gel 2 g topical BID PRN (Reason: Pain) Rx Instructions: BACK PAIN fluticasone propionate [Flonase Allergy Relief] 50 mcg/actuation [place],Suspension 2 spray INTRANASAL DAILY folic acid 1 mg tablet 1 mg PO QAM torsemide 20 mg tablet 20 mg PO AMPM Rx Instructions: TAKE QAM, THEN 1400 PER [facility] albuterol sulfate 90 mcg/actuation HFA aerosol inhaler 2 puff INHALATION Q4 PRN (Reason: Shortness Of Breath) valacyclovir [Valtrex] 1 gram Tablet 1,000 mg PO QAM lactulose 20 gram Packet 40 g PO BID duloxetine 60 mg Capsule,Delayed Release(Dr/Ec) 60 mg PO QAM Tums E-X 300 mg (750 mg) Tablet,Chewable 300 mg PO TID PRN (Reason: Heartburn) sildenafil (pulm.hypertension) [Revatio] 20 mg Tablet 40 mg PO WK PRN (Reason: Sexual Activity) Rx Instructions: TAKE 1 HR PRIOR TO SEXUAL ACTIVITY magnesium oxide 400 mg magnesium Tablet 400 mg PO DAILY pantoprazole 40 mg tablet,delayed release (DR/EC) 40 mg PO DAILY oxycodone 5 mg tablet 5 mg PO Q6H PRN (Reason: Pain) Qty: 10 0RF Discharge Orders: Discharge Order (Routine); Ordered 06/13/23 Ordered By: Tom Winters Admission Data Admit Date/Time: 06/11/23 18:33 Attending Provider: Tom Winters Admit Provider: Ct Healy Primary Care Provider: Najma Garcia Other Providers: Ct Healy Other Interventions: Discharge Summary Assessment (RN) Last Done: 06/13/23 10:57
== END 2023-06-13 11:28 | disposition home or self-care (01) | DRG 442 ==
LOC: ED 13:53 → EDINP 18:33 → SUATTDRO 18:33 → 2W 19:58

== ENCOUNTER 2024-04-18 20:13 | Inpatient (IN) ==
[2024-04-18] MEDS: ONDANSETRON INJ 2 MG/ML 2 ML VIAL IV STA (21:16)
[2024-04-18] MEDS: MoRPHine SULFATE 4 MG/ML 1 ML CARP\\VIAL IV STA (21:16)
--- NOTE | 2024-04-18 21:18 | Emergency Department Note ---
Impression & Plan Fall, Lower back pain, Left hip pain, Anemia, Elevated liver enzymes, Skin tear of right upper extremity, Hypertension ED Provider Note NAME: FABIANA LARRY AGE: 64 SEX: M : 1960 ARRIVES VIA: Ambulance INFORMANT: [Patient] ED PROVIDER(S): [Jamil Leiva MD] CHIEF COMPLAINT: Back pain HISTORY OF PRESENT ILLNESS: The patient is a 64-year-old male with chronic low back issues. He has had 2 previous lumbar surgeries. The patient has noticed increasing back pain as of late. He had an outpatient MRI but he is still waiting for the results. The patient states that in addition, he has had some left hip pain that has been ongoing. Yesterday, the patient tripped over a block of wood and fell onto his right shoulder. Fall caused increased pain in the lower back and the left hip. He did not lose conscious. He did not strike his head. He presents for evaluation as he could not sleep last evening. There has been no fever, no cough or congestion. He has no neck pain or headache. He does not have any upper back pain or chest pain. No abdominal pain. He is not on blood thinning agents. He states that despite hitting his right shoulder quite hard, he suffered only a subtle skin tear, he does not have any significant injury to the shoulder or arm. He does believe his tetanus to be current. PMHx/PSHx/Social Hx: See Below PHYSICAL EXAM: GENERAL: Patient is in no acute distress. HEENT: No acute trauma, normocephalic atraumatic, mucous membranes moist, no nasal congestion. NECK: No stridor, no adenopathy, nontender cervical spine, trachea is midline. LUNGS: Clear to auscultation bilaterally, no wheeze, no rhonchi, breath sounds equal. HEART: Without murmurs gallops or rubs, regular rate and rhythm. ABDOMEN: Soft, nontender, no peritonitis. EXTREMITIES: No cyanosis. He does have pain to move the left hip although there is no left lower extremity deformity. Patient does have a superficial skin tear to the right lateral bicep, no pain to palpate the bones of the right shoulder, right elbow or right humerus. No pain to move the right shoulder, right elbow or right wrist. NEUROLOGIC: Oriented x 3, no acute motor or sensory deficits, no focal weakness. Generalized extremity tremor noted. SKIN: Mild jaundice, no diaphoresis. Back: Tenderness to the lower lumbar spine, no obvious step-off. Pain worsens to sit forward. DIFFERENTIAL DIAGNOSIS: Fracture, sprain, strain, disc disease, disc herniation, acute on chronic pain, intracranial bleeding, among others. EMERGENCY DEPARTMENT PROCEDURES: MEDICAL DECISION MAKING: There is no leukocytosis. There is a mild anemia present but this is baseline. Platelet count was low but this also is baseline, likely from his liver disease. INR slightly elevated, likely from his liver disease. Potassium was somewhat low but not in need of emergent correction. There was no renal failure. Liver enzymes were elevated consistent with presumed liver disease. Ammonia level was somewhat elevated, consistent with his liver disease. Total CK was not elevated making rhabdomyolysis unlikely. ECG showed a sinus rhythm, no ischemia. Cardiac enzyme testing x 1 was not consistent with acute cardiac injury. There was no pancreatitis. TSH was low however, the T4 was normal. Urinalysis showed what appears to be contamination. Alcohol level was undetectable. Left pelvis and hip films show arthritis, there was basically [id number]. There was no fracture. Lumbar spine CT did not show any acute fracture. Brain CT showed no acute bleed or mass effect. On exam, the patient was hypertensive and tachycardic. He was painful with movement of the lower back and the left hip. The patient was given IV labetalol for his higher blood pressure. He was given IV morphine and IV Zofran, he received 1 L of IV saline. He was ordered for IV Dilaudid. His right upper extremity skin tear was cleansed and dressed. Patient is in significant discomfort. He has fallen. He can barely move on his own as per nursing staff. He will require a hospital stay, orthopedic and spinal surgical evaluation as well as potentially rehab/PT OT. I spoke with the patient and case management. The on-call hospitalist was consulted. Prior/Outside records/notes reviewed: Today's EMS notes describing his presentation and transport to this hospital. ECG per my interpretation: Indication was fall. The ECG shows a normal sinus rhythm with a rate of 76. There is no ST elevation, no PVCs. The QTc is 470. Continuous Cardiac Monitoring per my interpretation: An order was placed for continuous cardiac monitoring. The monitor shows a rate of 75 with normal sinus rhythm. Imaging/x-ray results per my interpretation: Left hip and pelvis films were performed, there was arthritis to the left hip but no fracture or dislocation. Chest x-ray did not show pneumonia or CHF. Chronic Medical/Social conditions affecting care: Chronic lower back issues and pain. Care/Management discussed with: Case management, the on-call hospitalist. Level of care consideration(s): After review of the information above and other included data: --I believe the patient requires escalation of care to admission DISPOSITION: Admission Past Med/Surg History Problem List (Updated 04/19/24 @ 00:05 by Jamil Leiva MD) Hypertension (Acute) Skin tear of right upper extremity (Acute) Elevated liver enzymes (Acute) Anemia (Acute) Left hip pain (Acute) Lower back pain (Acute) Fall (Acute) Fall (Acute) Encounter for pre-operative examination History of colon polyps Falls Ambulatory dysfunction Pancytopenia Acute hepatic encephalopathy (Acute) COVID-19 (Acute) SARS-CoV-2 positive Protein calorie malnutrition Hepatic encephalopathy (Acute) Cirrhosis DVT prophylaxis Hepatic encephalopathy Acute UTI (Acute) History of cirrhosis of liver (Acute) Thrombocytopenia (Acute) Depression Chronic back pain History of total right hip arthroplasty 2018 GERD (gastroesophageal reflux disease) Portal hypertensive gastropathy Hx of esophageal varices (Acute) 2/2 chronic portal HTN Medical History Increased ammonia level History of COVID-19 11/01/[address] [facility]--he was in the hospital for weakness and confusion and they did a COVID test and was found to be positive, states he had no symptoms of covid--no symptoms now Thrombocytopenia Tobacco abuse Depression with anxiety Osteoarthritis of right knee Esophageal varices Urinary tract infection hx, recurrent Lumbar radiculopathy Lumbar disc herniation Sacroiliitis Alcoholic cirrhosis Portal vein thrombosis hx History of hepatitis C pt states he no longer has History of alcohol abuse per pt quit 2013 Hx of thrombocytopenia Baseline platelets ~ 50-75k. 2/2 cirrhosis. Hx of encephalopathy 04/2020 [facility] Hx of gynecomastia History of anemia Hypertension Hx of ascites History of cirrhosis of liver D/T ALCOHOL Hearing deficit right ear perf eardrum Surgical History History of lumbar spinal fusion (~05/27/20) x2 History of esophagogastroduodenoscopy (EGD) History of colonoscopy with polypectomy 06/[address] [facility] Hx of decompression of ulnar nerve RIGHT History of tooth extraction all teeth removed Family History Father Diabetes Other No family history of adverse response to anesthesia Social History Smoking Status: Former smoker Tobacco Type: Cigarettes Second Hand Exposure: No; Do You Dip or Chew Tobacco: Yes (chews (advised on policy)); Hx Alcohol Use: No Hx Substance Use: No Preferred Language: Occitan Communication Ability: Effective Manager Demand Required: No Beliefs That Will Affect Care: None marital status: / Current Living Situation: Family Current Living Situation Comment: Lives with housemate How many Children do You have: 3 Feels Safe at Home: Yes Assistive Devices: Cane, Scooter/Electric Scooter and Walker Allergies Allergies Allergy/AdvReac Type Severity Reaction Status Date / Time No Known Allergies Allergy Verified 12/09/23 15:06 Home Meds Home Medications Medication Instructions Recorded Confirmed diclofenac sodium 1 % topical gel 2 g topical BID PRN Pain 02/29/20 12/09/23 rifaximin 550 mg tablet (Xifaxan) 550 mg PO BID 04/04/20 12/09/23 spironolactone 100 mg tablet 100 mg PO QAM 04/04/20 12/09/23 thiamine mononitrate (vit B1) 100 100 mg PO QAM 04/04/20 12/09/23 mg tablet fluticasone propionate 50 2 spray intranasal DAILY Allergy 04/16/20 12/09/23 mcg/actuation nasal Symptoms spray,suspension (Flonase Allergy Relief) folic acid 1 mg tablet 1 mg PO QAM 09/19/20 12/09/23 albuterol sulfate 90 mcg/actuation 2 puff inhalation Q4 PRN Shortness 04/25/21 12/09/23 aerosol inhaler Of Breath torsemide 20 mg tablet 20 mg PO AMPM 04/25/21 12/09/23 valacyclovir 1 gram tablet 1,000 mg PO QAM 11/01/21 12/09/23 (Valtrex) lactulose 20 gram oral packet 40 g PO BID PRN Constipation 12/08/22 11/03/24 duloxetine 60 mg capsule,delayed 60 mg PO QAM 01/22/23 12/09/23 release calcium carbonate (Tums E-X) 300 mg PO TID PRN Heartburn 06/11/23 12/09/23 magnesium oxide 400 mg PO DAILY 06/11/23 12/09/23 pantoprazole 40 mg tablet,delayed 40 mg PO DAILY 06/11/23 12/09/23 release sildenafil (pulm.hypertension) 20 40 mg PO WK PRN Sexual Activity 06/11/23 12/09/23 mg tablet (Revatio) gabapentin 100 mg capsule 100 mg PO DAILY 12/09/23 12/09/23 naloxone 4 mg/actuation nasal 1 spray intranasal UD 12/09/23 12/09/23 spray (Narcan) oxycodone 10 mg tablet 10 mg PO TID PRN Pain 12/09/23 12/09/23 Previous Rx's Medication Instructions Recorded prednisone 20 mg tablet 20 mg PO DIRECTED #7 tabs 12/30/23 Results & Data (ED) Vital Signs Vital Signs - 24 hr 04/18/24 20:21 04/18/24 20:21 04/18/24 20:21 Temperature 36.8 C Temperature Source Oral Pulse Rate 80 78 Pulse Rate [Apical] Pulse Rhythm [Apical] Pulse Strength Normal Pulse Strength [Apical] Respiratory Rate 14 14 Respiratory Effort / Characteristics Non-Labored Spontaneous Non-Labored Spontaneous Respiratory Depth Normal Normal Respiratory Pattern Regular Regular Blood Pressure 111/74 Blood Pressure [Left Arm] Blood Pressure Mean 86 Blood Pressure Mean [Left Arm] Blood Pressure Position Lying Blood Pressure Position [Left Arm] Pulse Oximetry 99 Oxygen Delivery Method Room Air Sepsis Recent Fever Within 48 Hours No Sepsis New/Unexplained Change in Mental Status No Sepsis Action Taken by Nursing No Action Required 04/18/24 21:12 04/18/24 22:14 Temperature Temperature Source Pulse Rate 79 Pulse Rate [Apical] 109 H Pulse Rhythm [Apical] Regular Pulse Strength Pulse Strength [Apical] Normal Respiratory Rate 16 24 Respiratory Effort / Characteristics Non-Labored Spontaneous Respiratory Depth Normal Respiratory Pattern Regular Blood Pressure Blood Pressure [Left Arm] 154/118 H Blood Pressure Mean Blood Pressure Mean [Left Arm] 130 Blood Pressure Position Blood Pressure Position [Left Arm] Lying Pulse Oximetry 99 97 Oxygen Delivery Method Room Air Room Air Sepsis Recent Fever Within 48 Hours Sepsis New/Unexplained Change in Mental Status Sepsis Action Taken by Residential Medications Current Medication List: was personally reviewed by me Laboratory Data Attestation: I reviewed the patient's lab results. 04/18/24 20:26 04/18/24 20:26 Lab Results 04/18/24 04/18/24 04/18/24 Range/Units 20:26 21:39 21:40 WBC 4.07 L (4.8-10.8) K/ul RBC 3.83 L (4.70-6.10) M/uL Hgb 12.4 L (14.0-18.0) g/dl Hct 35.5 L (42.0-52.0) % MCV 92.7 (80.0-100.0) fL MCH 32.4 (25.0-34.0) pg MCHC 34.9 (32.0-36.0) g/dL RDW Std Deviation 48.3 H (36.4-46.3) fL RDW Coeff of Abhijit 14.2 (11.5-14.5) % Plt Count 89 L (130-400) K/uL MPV 10.5 (9.4-12.4) fL Immature Gran % (Auto) 0.2 % Neut % (Auto) 56.5 % Lymph % (Auto) 25.6 % [place] % (Auto) 12.5 % Eos % (Auto) 4.2 % Baso % (Auto) 1.0 % Neut # (Auto) 2.30 (1.40-6.50) K/uL Lymph # (Auto) 1.04 L (1.20-3.40) K/uL [place] # (Auto) 0.51 (0.11-0.59) K/uL Eos # (Auto) 0.17 (0.00-0.50) K/uL Baso # (Auto) 0.04 (0.00-0.20) K/uL Immature Gran # (Auto) 0.01 (0.01-0.20) K/uL PT 13.4 H (9.0-12.0) Seconds INR 1.3 H (0.9-1.1) APTT 25 (21-31) Seconds PTT Ratio 0.9 Sodium 142 (136-145) mmol/L Potassium 3.3 L (3.5-5.1) mmol/L Chloride 112 H (98-107) mmol/L Carbon Dioxide 25 (21-32) mmol/L Anion Gap 5 (3-11) BUN 8 (6-23) mg/dl Creatinine 0.53 L (0.6-1.4) mg/dl Est Cr Clr Drug Dosing 129.4 ml/min eGFR 111.91 BUN/Creatinine Ratio 15.1 (10-20) Glucose 71 (70-99(Fasting)) mg/dl Calcium 8.9 (8.6-10.3) mg/dl Magnesium 1.7 (1.7-2.4) mg/dl Total Bilirubin 1.7 H (0.2-1.0) mg/dl AST 47 H (13-39) U/L ALT 20 (7-52) U/L Alkaline Phosphatase 106 H (34-104) U/L Ammonia 73.0 H (18-72) umol/L Total Creatine Kinase 90 (30-223) U/L Troponin I High Sens 9.5 (0-20) pg/ml Total Protein 6.1 (6.0-8.3) gm/dl Albumin 3.2 L (3.4-5.0) gm/dl Globulin 2.9 (2.5-4.0) gm/dl Albumin/Globulin Ratio 1.1 (0.9-2) Lipase 42 (11-82) U/L TSH 0.036 L (0.300-4.500) uIu/ml Free T4 1.35 (0.61-1.60) ng/dl Urine Color Urine Appearance (Clear) Urine pH (4.5-7.5) Ur Specific Mason (1.000-1.030) Urine Protein (Negative) Urine Glucose (UA) (Negative) Urine Ketones (Negative) Urine Blood (Negative) Urine Nitrite (Negative) Urine Bilirubin (Negative) Urine Urobilinogen (Negative) Ur Leukocyte Esterase (Negative) Urine WBC (Auto) (0-5) /hpf Urine RBC (Auto) (0-2) /hpf U Hyaline Cast (Auto) (0-2) /lpf U Epithel Cells (Auto) (0-2) /hpf Urine Bacteria (Auto) (None Seen) Ethyl Alcohol mg/dL < 10.0 (<10.0) mg/dl 04/18/24 Range/Units 22:12 WBC (4.8-10.8) K/ul RBC (4.70-6.10) M/uL Hgb (14.0-18.0) g/dl Hct (42.0-52.0) % MCV (80.0-100.0) fL MCH (25.0-34.0) pg MCHC (32.0-36.0) g/dL RDW Std Deviation (36.4-46.3) fL RDW Coeff of Abhijit (11.5-14.5) % Plt Count (130-400) K/uL MPV (9.4-12.4) fL Immature Gran % (Auto) % Neut % (Auto) % Lymph % (Auto) % [place] % (Auto) % Eos % (Auto) % Baso % (Auto) % Neut # (Auto) (1.40-6.50) K/uL Lymph # (Auto) (1.20-3.40) K/uL [place] # (Auto) (0.11-0.59) K/uL Eos # (Auto) (0.00-0.50) K/uL Baso # (Auto) (0.00-0.20) K/uL Immature Gran # (Auto) (0.01-0.20) K/uL PT (9.0-12.0) Seconds INR (0.9-1.1) APTT (21-31) Seconds PTT Ratio Sodium (136-145) mmol/L Potassium (3.5-5.1) mmol/L Chloride (98-107) mmol/L Carbon Dioxide (21-32) mmol/L Anion Gap (3-11) BUN (6-23) mg/dl Creatinine (0.6-1.4) mg/dl Est Cr Clr Drug Dosing ml/min eGFR BUN/Creatinine Ratio (10-20) Glucose (70-99(Fasting)) mg/dl Calcium (8.6-10.3) mg/dl Magnesium (1.7-2.4) mg/dl Total Bilirubin (0.2-1.0) mg/dl AST (13-39) U/L ALT (7-52) U/L Alkaline Phosphatase (34-104) U/L Ammonia (18-72) umol/L Total Creatine Kinase (30-223) U/L Troponin I High Sens (0-20) pg/ml Total Protein (6.0-8.3) gm/dl Albumin (3.4-5.0) gm/dl Globulin (2.5-4.0) gm/dl Albumin/Globulin Ratio (0.9-2) Lipase (11-82) U/L TSH (0.300-4.500) uIu/ml Free T4 (0.61-1.60) ng/dl Urine Color Dark Yellow Urine Appearance Clear (Clear) Urine pH 8.5 H (4.5-7.5) Ur Specific Mason 1.015 (1.000-1.030) Urine Protein Negative (Negative) Urine Glucose (UA) Negative (Negative) Urine Ketones Negative (Negative) Urine Blood 1+ H (Negative) Urine Nitrite Positive A (Negative) Urine Bilirubin Negative (Negative) Urine Urobilinogen Negative (Negative) Ur Leukocyte Esterase Trace H (Negative) Urine WBC (Auto) 6-10 H (0-5) /hpf Urine RBC (Auto) 11-20 H (0-2) /hpf U Hyaline Cast (Auto) 0-2 (0-2) /lpf U Epithel Cells (Auto) 0-2 (0-2) /hpf Urine Bacteria (Auto) None Seen (None Seen) Ethyl Alcohol mg/dL (<10.0) mg/dl Administered Medications Discontinued Medications Sodium Chloride (Nss) 1,000 mls @ 999 mls/hr IV .Q1H1M ONE Stop: 04/18/24 22:34 Last Infusion: 04/18/24 23:16 Dose: Infused Documented By: Admin: 04/18/24 21:59 Dose: 999 mls/hr Documented By: MONICA Morphine Sulfate (Morphine Sulfate 4 Mg/Ml 1 Ml Carp\Vial) 4 mg IV NOW STA Stop: 04/18/24 21:04 Last Admin: 04/18/24 21:16 Dose: 4 mg Documented By: MONICA Ondansetron HCl (Ondansetron Inj 2 Mg/Ml 2 Ml Vial) 4 mg IV NOW STA Stop: 04/18/24 21:02 Last Admin: 04/18/24 21:16 Dose: 4 mg Documented By: MONICA Imaging Data Radiologist's Impression: Lumbar Spine CT 04/18/24 21:01 Exam(s): CT L SPINE EXAM: CT Lumbar Spine Without Intravenous Contrast CLINICAL HISTORY: Reason for exam: fall. TECHNIQUE: Axial computed tomography images of the lumbar spine without intravenous contrast. CTDI is 56 mGy and DLP is 749 mGy-cm. Automated exposure control was utilized for the study. A dose lowering technique was utilized adhering to the principles of ALARA. COMPARISON: Prior CT scan of the lumbar spine from November 03, 2021. FINDINGS: Vertebrae: Bilateral S1 pars defects. Right L5 pedicle and left facet fractures. Status post posterior interbody fusion of L4 and L5 with transfer Screws and connecting rods in place. No acute fracture. Discs/spinal canal/neural foramina: No acute findings. No spinal canal stenosis. Soft tissues: Left nephrolithiasis. IMPRESSION: No evidence of acute lumbar spine pathology. Electronically signed by: Trupti Park MD 04/18/24 23:[address] 04/18/24 21:02 Exam(s): CT HEAD Without Contrast EXAM: CT Head Without Intravenous Contrast CLINICAL HISTORY: Reason for exam: fall. TECHNIQUE: Axial computed tomography images of the head/brain without intravenous contrast. CTDI is 56 mGy and DLP is 749 mGy-cm. Automated exposure control was utilized for the study. A dose lowering technique was utilized adhering to the principles of ALARA. COMPARISON: Prior head CT from August 29, 2023. FINDINGS: Brain: Unremarkable. No hemorrhage. No significant white matter disease. No edema. Ventricles: Moderate ventriculomegaly. Bones/joints: Unremarkable. No acute fracture. Soft tissues: Unremarkable. Sinuses: Unremarkable as visualized. No acute sinusitis. Mastoid air cells: Unremarkable as visualized. No mastoid effusion. IMPRESSION: No evidence of acute intracranial pathology. Electronically signed by: Trupti Park MD 04/18/24 23:26 PM Discharge Plan Visit Data Chief Complaint: Back Injury/Pain Stated Complaint: back pain ED Provider: Jamil Leiva Discharge Problem: Fall, Lower back pain, Left hip pain, Anemia, Elevated liver enzymes, Skin tear of right upper extremity, Hypertension Patient Disposition: Admitted As Inpatient Condition: Fair Forms Stand Alone Forms: [facility] Prescriptions Prescriptions: No Action spironolactone 100 mg tablet 100 mg PO QAM Xifaxan 550 mg tablet 550 mg PO BID thiamine mononitrate (vit B1) 100 mg tablet 100 mg PO QAM diclofenac sodium 1 % gel 2 g topical BID PRN (Reason: Pain) Rx Instructions: BACK PAIN fluticasone propionate [Flonase Allergy Relief] 50 mcg/actuation [place],Suspension 2 spray INTRANASAL DAILY folic acid 1 mg tablet 1 mg PO QAM torsemide 20 mg tablet 20 mg PO AMPM Rx Instructions: TAKE QAM, THEN 1400 PER [facility] albuterol sulfate 90 mcg/actuation HFA aerosol inhaler 2 puff INHALATION Q4 PRN (Reason: Shortness Of Breath) valacyclovir [Valtrex] 1 gram Tablet 1,000 mg PO QAM lactulose 20 gram Packet 40 g PO BID PRN (Reason: Constipation) duloxetine 60 mg Capsule,Delayed Release(Dr/Ec) 60 mg PO QAM Tums E-X 300 mg (750 mg) Tablet,Chewable 300 mg PO TID PRN (Reason: Heartburn) sildenafil (pulm.hypertension) [Revatio] 20 mg Tablet 40 mg PO WK PRN (Reason: Sexual Activity) Rx Instructions: TAKE 1 HR PRIOR TO SEXUAL ACTIVITY magnesium oxide 400 mg magnesium Tablet 400 mg PO DAILY pantoprazole 40 mg tablet,delayed release (DR/EC) 40 mg PO DAILY gabapentin 100 mg capsule 100 mg PO DAILY oxycodone 10 mg tablet 10 mg PO TID PRN (Reason: Pain) naloxone [Narcan] 4 mg/actuation spray,non-aerosol 1 spray INTRANASAL UD Rx Instructions: for overdose, call 911 prednisone 20 mg tablet 20 mg PO DIRECTED Qty: 7 0RF Rx Instructions: Take 2 tablets daily x 2 days, then take 1 tablet daily x 2 days, then take 1/2 tablet daily x 2 days Referrals Referrals: Najma Garcia MD [Primary Care Provider] - Discharge Problem: Fall Qualifiers: Encounter type: initial encounter Qualified Code(s): W19.XXXA - Unspecified fall, initial encounter Lower back pain Qualifiers: Chronicity: chronic Back pain laterality: midline Sciatica presence: u nspecified whether sciatica present Qualified Code(s): M54.50 - Low back pain, unspecified; G89.29 - Other chronic pain Anemia Qualifiers: Anemia type: unspecified type Qualified Code(s): D64.9 - Anemia, unspecified Hypertension Qualifiers: Hypertension type: unspecified Qualified Code(s): I10 - Essential (primary) hypertension
[2024-04-18 21:47] LABS: Albumin Globulin Ratio 1.1 (0.9-2); Albumin Level 3.2 gm/dl (3.4-5.0); BUN Creatinine Ratio 15.1 (10-20); Bilirubin,Total 1.7 mg/dl (0.2-1.0); Calcium 8.9 mg/dl (8.6-10.3); Creatinine Clr Calc Pharmacy 129.4 ml/min; Globulin 2.9 gm/dl (2.5-4.0); Magnesium 1.7 mg/dl (1.7-2.4); Potassium 3.3 mmol/L (3.5-5.1); Total Protein 6.1 gm/dl (6.0-8.3)
[2024-04-18 21:53] LABS: Troponin I High Sensitivity 9.5 pg/ml (0-20)
[2024-04-18 21:58] LABS: Basophils # (auto) 0.04 K/uL (0.00-0.20); Eosinophils # (auto) 0.17 K/uL (0.00-0.50); Eosinophils % (auto) 4.2 %; Hematocrit (blood only) 35.5 % (42.0-52.0); Hemoglobin 12.4 g/dl (14.0-18.0); Immature Granulocytes # (auto) 0.01 K/uL (0.01-0.20); Immature Granulocytes % (auto) 0.2 %; Lymphocytes # (auto) 1.04 K/uL (1.20-3.40); Lymphocytes % (auto) 25.6 %; Mean Corpuscular Hemoglobin 32.4 pg (25.0-34.0); Mean Corpuscular Hgb Conc 34.9 g/dL (32.0-36.0); Mean Corpuscular Volume 92.7 fL (80.0-100.0); Mean Platelet Volume 10.5 fL (9.4-12.4); Monocytes # (auto) 0.51 K/uL (0.11-0.59); Monocytes % (auto) 12.5 %; Neutrophils % (auto) 56.5 %; Platelet Count 89 K/uL (130-400); RDW Coefficient of Variation 14.2 % (11.5-14.5); RDW Standard Deviation 48.3 fL (36.4-46.3); Red Blood Count 3.83 M/uL (4.70-6.10); White Blood Count 4.07 K/ul (4.8-10.8)
[2024-04-18] MEDS: SODIUM CHLORIDE 0.9% 1,000 ML IV ONE (21:59)
[2024-04-18 22:02] LABS: Thyroid Stimulating Hormone 0.036 uIu/ml (0.300-4.500)
[2024-04-18 22:05] LABS: INR 1.3 (0.9-1.1); Partial Thromboplastin Ratio 0.9; Partial Thromboplastin Time 25 Seconds (21-31); Prothrombin Time 13.4 Seconds (9.0-12.0)
[2024-04-18 22:37] LABS: T4 Free Thyroxine 1.35 ng/dl (0.61-1.60)
[2024-04-18 22:38] LABS: Appearance Urine Clear (Clear); Bacteria Urine Automated None Seen (None Seen); Bilirubin Urine Negative (Negative); Blood Urine 1+ (Negative); Cast Urine Automated 0-2 /lpf (0-2); Color Urine Dark Yellow; Epithelial Cell Urine Auto 0-2 /hpf (0-2); Glucose Urine UA Negative (Negative); Ketones Urine Negative (Negative); Leukocyte Esterase Urine Trace (Negative); Nitrite Urine Positive (Negative); Protein Urine Negative (Negative); Specific Gravity Urine 1.015 (1.000-1.030); Urobilinogen Urine Negative (Negative); pH Urine 8.5 (4.5-7.5)
--- NOTE | 2024-04-18 23:27 | CT Scan Report ---
Exam(s): CT HEAD Without Contrast EXAM: CT Head Without Intravenous Contrast CLINICAL HISTORY: Reason for exam: fall. TECHNIQUE: Axial computed tomography images of the head/brain without intravenous contrast. CTDI is 56 mGy and DLP is 749 mGy-cm. Automated exposure control was utilized for the study. A dose lowering technique was utilized adhering to the principles of ALARA. COMPARISON: Prior head CT from August 29, 2023. FINDINGS: Brain: Unremarkable. No hemorrhage. No significant white matter disease. No edema. Ventricles: Moderate ventriculomegaly. Bones/joints: Unremarkable. No acute fracture. Soft tissues: Unremarkable. Sinuses: Unremarkable as visualized. No acute sinusitis. Mastoid air cells: Unremarkable as visualized. No mastoid effusion. IMPRESSION: No evidence of acute intracranial pathology. Electronically signed by: Trupti Park MD 04/18/24 23:26 PM
--- NOTE | 2024-04-18 23:32 | CT Scan Report ---
Exam(s): CT L SPINE EXAM: CT Lumbar Spine Without Intravenous Contrast CLINICAL HISTORY: Reason for exam: fall. TECHNIQUE: Axial computed tomography images of the lumbar spine without intravenous contrast. CTDI is 56 mGy and DLP is 749 mGy-cm. Automated exposure control was utilized for the study. A dose lowering technique was utilized adhering to the principles of ALARA. COMPARISON: Prior CT scan of the lumbar spine from November 03, 2021. FINDINGS: Vertebrae: Bilateral S1 pars defects. Right L5 pedicle and left facet fractures. Status post posterior interbody fusion of L4 and L5 with transfer Screws and connecting rods in place. No acute fracture. Discs/spinal canal/neural foramina: No acute findings. No spinal canal stenosis. Soft tissues: Left nephrolithiasis. IMPRESSION: No evidence of acute lumbar spine pathology. Electronically signed by: Trupti Park MD 04/18/24 23:31 PM
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
--- OUTSIDE RECORDS SUMMARY | 2024-04-18 23:32 | External Medical Summary | Summary of Care ---
Author Name Unknown Organization [facility] Address [address] [place] [address] Phone [phone] Care Team Providers Care Home Advisor Name Role Phone Najma Garcia MD Primary Care Provide r Reason for Visit * Reason Onset Date Comments Medication Refill 04/02/2024 Encounter Details Date Type Department Care Team (Late st Contact Info) Description 04/02/2024 Refill Family Medicine [address] [phone] Najma Garcia MD [address] [place], [place] [address] [address] Gastroesophageal reflux disease without esophagitis*; Encounter for long-term (current) drug use Allergies No known active allergiesdocumented as of [...] MOUTH EVERY SIX HOURS NEEDED 30 Tablet 04/02/19 25 Active Ondansetron 4 MG Oral Tablet [...] Grade 1-2 [] Grade 3-4 *A total Qavqr-Xzjtgkbo-Skmw score of 5 to 6 is considered [...] Assessment & Plan (04/06/2021 11:42 AM EST): [facility] RNCM Call: Reviewed case w/ alla Hale Demonstrating findings of increased edema in abdomen [...] he has can lift his arm up shelter to the side or front of him [...] he has can lift his arm up shelter to the side or front of him [...] with ascites 05/29/2013 12/15/2016 Overview (06/10/2013): admitted [facility], 3 liters taken off Alcoholic [...] mRNA, LNP-s, No Pre serve, 2-Dose Series ([facility] ([facility])) 04/12/2021,09/29/2020,08/25/2020 COVID-19, MRNA-LNP, PF, 30 M CG/0.3 mL, 12 YRS AND ABOVE, IM (PFIZER-Comirnaty) 07/27/2023 HEP A - Hepatitis A (Adult [...] No 04/19/2023 Does the household have a [facility] source of income? (Household - for ages [...] encounter Miscellaneous Notes * Telephone Encounter - Jamil Connelly [facility] - 04/02/2024 11:04 AM ESTSigned Prescriptions: Disp Refills Ondansetron 4 MG Oral Tablet Disintegratin*30 Tab*0 Sig: DISSOLVE ONE TABLET IN MOUTH EVERY SIX HOURS NEEDEDAuthorizing Provider: OSWALDO LOPEZ User:JAMIL CONNELLY * Telephone Encounter - Sil Liang, as400 programmer analyst - 04/02/2024 10:08 AM EST Pt asking high priority due to needing the medication. Did you pend patient's preferred pharmacy and medication before forwarding?yes Pharmacy: [id number] [address] [facility] Pending Prescriptions: Disp Refills Ondansetron 4 MG Oral Tablet Disintegrati*30 Tab*0 Sig: DISSOLVE ONE TABLET IN MOUTH EVERY SIX HOURS NEEDED Last Visit: 2024 (in office), Visit date not found (telemedicine) Next Visit: 04/04/2024 If no future appointments scheduled, and last appointment is greater than a year ago, please schedule patient for a follow-up appointment Last date the medication was ordered: 07/17/23 Is this request for a controlled substance?No Urine Drug Screen: Results for orders placed or performed in visit on 08/01/21 TOXICOLOGY, URINE SCREEN W/ CONFIRMATION Result Value Amphetamines Screen, U Negative Benzodiazepines Screen, U Negative Cannabinoids Screen, U Negative Cocaine Metabolite Screen, U Negative Fentanyl Screen, U Negative Hydrocodone Screen, U Negative Methadone Metabolite Screen, U Negative Morphine/Codeine Screen, U Negative Oxycodone Screen, U Negative Narrative Cutoff Concentrations: Drug Level Amphetamines 500 ng/mL Benzodiazepines 100 ng/mL Cannabinoids 50 ng/mL Cocaine Metabolite 150 ng/mL Fentanyl 1 ng/mL Hydrocodone / Hydromorphone 300 ng/mL Methadone Metabolite 100 ng/mL Morphine / Codeine 300 ng/mL Oxycodone / Oxymorphone 100 ng/mL Screening results are presumptive and can only be used for medical purposes. Positive screening results are reflexed to confirmatory testing. *Note: Due to a large number of results and/or encounters for the requested time period, some results have not been displayed. A complete set of results can be found in Results Review. Patient Phone Numbers Labs: Lab Results Component Value Date/Time CREAT 0.5 (L) 2024 10:39 AM CREAT 0.45 (A) 05/16/2023 12:00 AM CREAT 0.7 02/16/2020 12:57 PM POTASSIUM 3.6 2024 10:39 AM POTASSIUM 3.9 05/16/2023 12:00 AM POTASSIUM 3.6 02/16/2020 12:57 PM TSH 0.15 (L) 2024 10:39 AM TSH 1.220 08/27/2017 12:00 AM TSH 2.94 01/15/2017 08:48 AM LDL 76 2024 10:39 AM LDL 96 07/16/2019 12:15 PM ALT 23 2024 10:39 AM ALT 25 07/16/2019 12:15 PM HGBA1C 5.1 07/05/2022 12:50 PM HGBA1C 5.0 06/22/2017 01:56 PM documented in this encounter Plan of Treatment Upcoming Encounters Date Type Department Care Team (Late st Contact Info) Description 04/04/2024 9:40 AM EST Office Visit Family [address] [place] [phone] Najma Garcia MD [address] [place] [address] [place] [id number] Scheduled Orders Name Type Priority Associated Diagnoses Orde r Schedule MAGNESIUM Lab Routine Gastroesophageal reflux disease without esophagitis Encounter for long-term (current) drug use Expected: 04/09/2024 (Approximate), Expires: 04/02/2025 Scheduled Procedures Name Priority Associated Diagnoses Date/Ti [...] as of this encounter Visit Diagnoses Diagnosis Alcoholic cirrhosis of liver without ascites (HCC)- Primary Alcoholic cirrhosis of liver Dysuria Chronic bilateral low back pain with right-sided sciatica Secondary esophageal varices without bleeding (HCC)- Primary Esophageal varices without mention of bleeding in diseases classified elsewhere Alcoholic cirrhosis of liver without ascites (HCC) Alcoholic cirrhosis of liver Chronic bilateral low back pain with right-sided sciatica Alcohol use disorder, severe, in sustained remission (HCC) Anxiety state Anxiety state, unspecified Gastroesophageal reflux disease without esophagitis- Primary Esophageal reflux Encounter for long-term (current) drug use Encounter for long-term (current) use of other medications documented in this encounter Advance Directives Documents on File Type Date Recorded 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
--- OUTSIDE RECORDS SUMMARY | 2024-04-18 23:33 | External Medical Summary | Summary of Care ---
Author Name Unknown Organization [facility] Address [address] [place] [address] Phone [phone] Care Team Providers Care Solar Maintenance Technician Name Role Phone Najma Garcia MD Primary Care Provide r Reason for Visit * Reason Comments Outpatient Testing Encounter Details Date Type Department Care Team (Late st Contact Info) Description 2024 10:40 AM EST Laboratory Laboratory [address] [place] [phone] [place] [address] Screening for metabolic disorder Allergies No known active allergiesdocumented as of this encounter (statuses as of 2024) Medications Nerve Stimulator (CLEVER CHOICE TENS UNIT) DEVIIndications:Ch ronic midline low back pain without sciatica Use as directed. Use to lower back area in 15 minute intervals up to three times a day 1 Each 0 Active Sildenafil Citrate 20 MG Oral Tablet (REVATIO)Indicatio ns:ED (erectile dysfunction) of organic origin Take 2 Tabs by mouth once a week. Take one hour prior to sexual activity 8 Tab 11 0 Active Potassium Chloride 20 MEQ Oral PacketIndications: Hypokalemia MIX 1 PACKET IN WATER AND TAKE ORALLY DAILY 90 Packet 3 3 Active Tums E-X 750 750 MG Oral Tablet Chewable (calcium CARBonate) Take 1 Tablet by mouth 3 times a day as needed for Heartburn. Active Albuterol Sulfate HFA 108 (90 Base) MCG/ACT Inhalation Aerosol Solution inhale 2 puffs by mouth every 4 hours as needed for shortness of breath 18 g 3 Active Triamcinolone Acetonide 0.1 % External Cream (Aristocort)Indica tions:Dermatitis apply to affected area twice daily 45 g 3 Active Lidocaine 0.5 % External GelIndications:Ant n of right heel Apply topically to affected area 2 times a day. Apply to right heel twice a day as needed for pain 170 g 3 Active Torsemide 20 MG Oral Tablet (Demadex) TAKE ONE TABLET BY MOUTH TWICE DAILY. (IN THE MORNING AND AT 2 PM) TO DECREASE NIGHTTIME URINATION 60 Tablet 5 4 Active Thiamine HCl 100 MG Oral Tablet (vitamin B-1)Indications:Al coholic cirrhosis of liver without ascites (HCC) TAKE ONE TABLET BY MOUTH EVERY DAY 100 Tablet 1 4 Active Gabapentin 100 MG Oral Capsule (Neurontin)Indicat ions:Peripheral polyneuropathy,Chr onic bilateral low back pain without sciatica Take 1 Capsule by mouth 2 times a day. 60 Capsule 5 4 Active Folic Acid 1 MG Oral Tablet Take 1 Tablet by mouth in the morning. 90 Tablet 3 4 Active Magnesium 400 MG Oral Tablet Take 400 mg by mouth daily. 100 Tablet 3 4 Active Diclofenac Sodium 3 % External GelIndications:Chr onic bilateral low back pain with right-sided sciatica,Sacroilii tis, not elsewhere classified (HCC),Chronic pain syndrome Apply to back twice daily 100 g 1 4 Active Ondansetron 4 MG Oral Tablet Disintegrating (Zofran) DISSOLVE ONE TABLET IN MOUTH EVERY SIX HOURS NEEDED 30 Tablet 4 Active Kristalose 20 GM Oral Packet (Lactulose) take 1 packet by mouth in the morning and 1 packet at noon and 1 packet before bedtime 100 Packet 3 4 Active Xifaxan 550 MG Oral Tablet (rifAXIMin) TAKE ONE TABLET BY MOUTH IN THE MORNING AND BEFORE BEDTIME 180 Tablet 3 4 Active DULoxetine HCl 60 MG Oral Capsule Delayed Release Particles (Cymbalta)Indicati ons:Current episode of major depressive disorder without prior episode, unspecified depression episode severity TAKE ONE CAPSULE BY MOUTH IN THE MORNING DO NOT CUT, CRUSH, OR CHEW 90 Capsule 1 4 Active Baclofen 10 MG Oral Tablet (Lioresal) Take 1 Tablet by mouth 3 times a day as needed for Muscle spasms. 30 Tablet 1 4 Active Pantoprazole Sodium 40 MG Oral Tablet Delayed Release (Protonix)Indicati ons:Alcoholic cirrhosis of liver without ascites (HCC),Protein-maya juan m malnutrition (HCC),Secondary esophageal varices without bleeding (HCC),Alcohol use disorder, severe, in sustained remission (HCC),Esophageal varices (HCC) TAKE ONE TABLET BY MOUTH IN THE MORNING 90 Tablet 1 4 Active valACYclovir HCl 1 GM Oral Tablet (Valtrex) TAKE ONE TABLET BY MOUTH IN THE MORNING 90 Tablet 4 Active Fluticasone Propionate 50 MCG/ACT Nasal Suspension (Flonase)Indicatio ns:Acute maxillary sinusitis, recurrence not specified 2 sprays each nostril daily 48 g 4 Active Spironolactone 100 MG Oral Tablet (Aldactone)Indicat ions:Alcoholic cirrhosis of liver with ascites (HCC) TAKE ONE TABLET BY MOUTH IN THE MORNING 90 Tablet 4 Active oxyCODONE HCl 10 MG Oral Tablet (Roxicodone) Take 1 Tablet by mouth. 4 Active documented as of this encounter (statuses as of 2024) Active Problems Problem Noted Date Diagnosed Date Abnormal cystoscopy 09/25/2023 Thrombocytopenia 01/24/2023 Recurrent major depressive disorder 01/24/2023 Portal hypertension 01/24/2023 Chronic pain syndrome 03/29/2022 Assessment & Plan (03/29/2022 12:46 PM EST): Currently not on any opiates and suhas recommend staying off of them moving forward. 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 Esophageal varices without bleeding 02/23/2022 Protein-calorie [...] Grade 1-2 [] Grade 3-4 *A total Njyrp-Hsrlajfz-Uapx score of 5 to 6 is considered [...] Assessment & Plan (04/06/2021 11:42 AM EST): [facility] RNCM Call: Reviewed case w/ alla Valdes Demonstrating [...] as of this encounter (statuses as of 2024) Resolved Problems Problem Noted Date Diagnosed Date [...] he has can lift his arm up skilled nursing to the side or front of him [...] he has can lift his arm up skilled nursing to the side or front of him [...] with ascites 05/29/2013 12/15/2016 Overview (06/10/2013): admitted [facility], 3 liters taken off Alcoholic cirrhosis of liver 02/14/2013 12/15/2016 Alcohol abuse 01/09/2012 12/28/2014 Ascites 01/09/2012 09/18/2017 Epididymal cyst 01/09/2012 03/30/2017 Genital herpes 01/15/2018 Esophageal varices 2 Portal hypertensive gastropathy 04/15/2020 Alcoholic cirrhosis of liver without ascites 04/15/2020 Tympanic membrane perforation, right 07/30/2020 Overview (05/03/2017): digging in ear with toothpick documented as of this encounter (statuses as of 2024) Immunizations Name Administration Dates Next Due COVID-19 mRNA, LNP-s, No Pre serve, 2-Dose Series ([email or web address]) 04/12/2021,09/29/2020,08/25/2020 COVID-19, MRNA-LNP, PF, 30 M CG/0.3 mL, 12 YRS AND ABOVE, [facility] 07/27/2023 HEP A - Hepatitis A (Adult [...] No 04/19/2023 Does the household have a re lar source of income? (Household - for ages [...] ages 0-17 years) Not on file 04/19/2023 Sex and Gender Information Value Date [...] PM EST documented as of this encounter Plan of Treatment Upcoming Encounters Date Type Department Care Team (Late st Contact Info) Description 03/06/2024 9:30 AM EST Office Visit Gastroenterology, [facility] [address] [place] [phone] Zohaib Mendez CRNP [address] [place] [address] 03/11/2024 10:15 AM EST Telemedicine Urology Sindi Ayers [address] [facility] [address] [place] [address] Clinton Garcia MD [address] [place] [phone] 7, Telemed [facility] Urology Ex Rm [address] [place] [id number] 03/14/2024 11:30 AM EST Office Visit Orthopaedics Spine Surgery [facility] [address] [place] [phone] Dov Sauceda MD [address] [place] [address] 04/04/2024 10:00 AM EST Office Visit [address] [place] [phone] Najma Garcia MD [address] [place] [address] [place] [address] Pending Results Name Type Priority Associated Diagnoses Date /Time LIPID PANEL WITH DIRECT LDL IF TG IS HIGH Lab Routine Screening for metabolic disorder 2024 10:39 AM EST COMPREHENSIVE METABOLIC PANEL Lab Routine Screening for metabolic disorder 2024 10:39 AM EST CBC WITH WBC DIFFERENTIAL AND ANEMIA REFLEX WORKUP Lab Routine Screening for metabolic disorder 2024 10:39 AM EST ANEMIA CBC Lab Routine Screening for metabolic disorder 2024 10:39 AM EST DIFFERENTIAL, AUTOMATED Lab Routine Screening for metabolic disorder 2024 10:39 AM EST ANEMIA REFLEX CHEMISTRY HOLD Lab Routine Screening for metabolic disorder 2024 10:39 AM EST Scheduled Procedures Name Priority Associated Diagnoses Date/Ti me COLONOSCOPY FLEXIBLE PROXIMA L DIAGNOSTIC Recall History of colonic polyps Health Maintenance Due Date Last Done Comments Zoster Vaccines (2 of 2) 02/27/2020 01/02/2020 COVID-19 Vaccine (2023-2 5 season) 2023 07/27/2023, 04/12/2021, 09/29/2020, Additional history exists Influenza Vaccine (FLU shot) (#1) 2023 01/24/2023, 12/06/2021, 11/28/2021, Additional history exists Depression Monitoring 04/15/2024 04/16/2023 documented as of this encounter Medical Devices [...] remission (HCC) Anxiety state Anxiety state, unspecified Screening for metabolic disorder documented in this encounter Advance Directives Documents on File Type Date Recorded Patient Cake Stripper Expl anation Advance Directives and Living Will 05/14/2020 ADVANCE DIRECTIVE / LIVING WILL Power of Staff Radiographer 05/14/2020 POWER OF A TTORNEY Care Teams Solar Maintenance Technician Relationship Specialty Start Date End Date Najma Garcia MD [address] [place] [address] [place] [phone] PCP - General Family Medicine 08/29/23 documented as of this encounter
--- OUTSIDE RECORDS SUMMARY | 2024-04-18 23:33 | External Medical Summary ---
Author Name Unknown Address Unknown Organization [id number]:[facility] [place] [facility] [address] [facility] [address] Laboratory Report Ordering Provider Test Date Status JOHN CHACON 2024 10:39:13 Final Observation Date Value Abnormality Reference (Units ) Status BUN 2024 10:39:13 9 6-20 (mg/dL) Final Creatinine 2024 10:39:13 0.5 Below low normal 0.6-1.2 (mg/dL) Final Glomerular filtration rate/1.73 sq M.predicted [Volume Rate/Area] in Serum, Plasma or Blood by Creatinine-based formula (CKD-EPI) 2024 10:39:13 >90 >=60 (mL/min) Final eGFR is calculated based on the CKD-EPI 2020 equation. Sodium 2024 10:39:13 139 135-146 (m mol/L) Final Potassium 2024 10:39:13 3.6 3.5-5.1 (m mol/L) Final Cl 2024 10:39:13 108 Above high normal 98 -107 (mmol/L) Final CO2 2024 10:39:13 21 Below low normal 22- 32 (mmol/L) Final Anion gap 2024 10:39:13 10 7-15 (mmol /L) Final Glucose 2024 10:39:13 85 70-120 (mg /dL) Final Albumin 2024 10:39:13 3.2 Below low normal 3.8 -5.0 (g/dL) Final AST (Aspartate aminotransferase) 2024 10:39:13 48 10-50 (U/L) Fin al Alk Phos 2024 10:39:13 132 Above high normal 35 -130 (U/L) Final Bilirubin, Total 2024 10:39:13 0.9 <=1 .2 (mg/dL) Final Calcium 2024 10:39:13 8.8 8.4-10.2 ( mg/dL) Final Protein 2024 10:39:13 5.8 Below low normal 6.0 -8.3 (g/dL) Final ALT (Alanine aminotransferase) 2024 10:39:13 23 10-50 (U/L) Sean martinez Performing Location [facility] [place] [facility] [address] [facility] [address]
--- OUTSIDE RECORDS SUMMARY | 2024-04-18 23:33 | External Medical Summary ---
Author Name Unknown Address Unknown Organization [id number]:[facility] - [address] [place] [address] Laboratory Report Ordering Provider Test Date Status JOHN CHACON 2024 10:39:13 Final Observation Date Value Abnormality Reference (Units ) Status Ferritin 2024 10:39:13 107 30-400 (ng /mL) Final Performing Location [facility] - [address] [place] [address]
--- OUTSIDE RECORDS SUMMARY | 2024-04-18 23:33 | External Medical Summary | Summary of Care ---
Author Name Unknown Organization [facility] Address [address] [place] [address] Phone [phone] Care Team Providers Care Polysomnograph Tech Name Role Phone Najma Garcia MD Primary Care Provide r Reason for Visit * Reason Comments Re-Check Encounter Details Date Type Department Care Team (Latest Contact Info) Description 2024 10:00 AM EST Office Visit [address] [phone] Maria Eugenia Parker PA-C [address] [place] [address] [place] [address] Chronic bilateral low back pain with right-sided sciatica*; Alcohol use disorder, severe, in sustained remission (HCC); Aortic atherosclerosis (HCC); Cocaine use disorder, moderate, in sustained remission (HCC); Alcoholic cirrhosis of liver without ascites (HCC); Gastroesophageal reflux disease without esophagitis; Current episode of major depressive disorder without prior episode, unspecified depression episode severity; Portal hypertension (HCC); Thrombocytopenia (HCC); Screening for metabolic disorder Allergies No known [...] with spine but 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 Esophageal varices without bleeding 02/23/2022 Protein-calorie [...] Encephalopathy o Thrombocytopenia Medication Regimen: o Beta Ojshua Therapy: No beta-joshua secondary to not a [...] Grade 1-2 [] Grade 3-4 *A total Zvlbw-Reyijdcc-Pukg score of 5 to 6 is considered [...] Assessment & Plan (04/06/2021 11:42 AM EST): [facility]: [facility] Valdes Demonstrating [...] he has can lift his arm up longterm to the side or front of him [...] he has can lift his arm up longterm to the side or front of him [...] with ascites 05/29/2013 12/15/2016 Overview (06/10/2013): admitted [facility], 3 liters taken off Alcoholic cirrhosis [...] mRNA, LNP-s, No Pre serve, 2-Dose Series ([employer]) 04/12/2021,09/29/2020,08/25/2020 COVID-19, MRNA-LNP, PF, 30 M CG/0.3 [...] on file documented as of this encounter Last Filed Vital Signs Vital Sign Reading Time Taken Comments Blood Pressure 142/84 2024 10:18 AM EST Pulse 82 2024 10:18 AM EST Temperature - - Respiratory Rate - - Oxygen Saturation - - Inhaled Oxygen Concentration - - Weight - - Height - - Body Mass Index - - documented in this encounter Functional Status * Does this person have serious difficulty walking or climbing stairs? Answer Date of Assessment Author Yes 01/15/2017 12:07 PM EST documented as of this encounter Progress Notes * Maria Eugenia Parker PA-C - 2024 10:21 AM EST Nursing Notes: Fidelia Gustafson KWAME Luther 02/20/24 1018 Sign at exiting of workspace Was in hospital a few days ago Shani Has rx for Flexeril, Prednisone, Percocet and 600 MG ibuprofen Has pictures of his back too Pt here today for recheck. He was just in ER for back pain. He is seeing [facility] for his back pain. He states that he is getting oxycodone from them. He also got pain meds when he was just in the ER. Pt states that he doesn't want to go back to [facility]. Review of patient's allergies indicates: No Known Allergies Current Outpatient Medications Medication Sig Dispense Refill Nerve Stimulator ([employer] TENS [facility]) SHAN Use as directed. Use to lower back area in 15 minute intervals up to three times a day 1 Each 0 Sildenafil Citrate 20 MG Oral Tablet (REVATIO) Take 2 Tabs by mouth once a week. Take one hour prior to sexual activity 8 Tab 11 Potassium Chloride 20 MEQ Oral Packet MIX 1 PACKET IN WATER AND TAKE ORALLY DAILY 90 Packet 3 Tums E-X 750 750 MG Oral Tablet Chewable (calcium CARBonate) Take 1 Tablet by mouth 3 times a day as needed for Heartburn. Albuterol Sulfate HFA 108 (90 Base) MCG/ACT Inhalation Aerosol Solution inhale 2 puffs by mouth every 4 hours as needed for shortness of breath 18 g 0 Triamcinolone Acetonide 0.1 % External Cream (Aristocort) apply to affected area twice daily 45 g 0 Lidocaine 0.5 % External Gel Apply topically to affected area 2 times a day. Apply to right heel twice a day as needed for pain 170 g 0 Torsemide 20 MG Oral Tablet (Demadex) TAKE ONE TABLET BY MOUTH TWICE DAILY. (IN THE MORNING AND AT 2 PM) TO DECREASE NIGHTTIME URINATION 60 Tablet 5 Thiamine HCl 100 MG Oral Tablet (vitamin B-1) TAKE ONE TABLET BY MOUTH EVERY DAY 100 Tablet 1 Gabapentin 100 MG Oral Capsule (Neurontin) Take 1 Capsule by mouth 2 times a day. 60 Capsule 5 Folic Acid 1 MG Oral Tablet Take 1 Tablet by mouth in the morning. 90 Tablet 3 Magnesium 400 MG Oral Tablet Take 400 mg by mouth daily. 100 Tablet 3 Diclofenac Sodium 3 % External Gel Apply to back twice daily 100 g 1 Ondansetron 4 MG Oral Tablet Disintegrating (Zofran) DISSOLVE ONE TABLET IN MOUTH EVERY SIX HOURS NEEDED 30 Tablet 0 Kristalose 20 GM Oral Packet (Lactulose) take 1 packet by mouth in the morning and 1 packet at noonand 1 packet before bedtime 100 Packet 3 Xifaxan 550 MG Oral Tablet (rifAXIMin) TAKE ONE TABLET BY MOUTH IN THE MORNING AND BEFORE BEDTIME 180 Tablet 3 DULoxetine HCl 60 MG Oral Capsule Delayed Release Particles (Cymbalta) TAKE ONE CAPSULE BY MOUTH INTHE MORNING DO NOT CUT, CRUSH, OR CHEW 90 Capsule 1 Baclofen 10 MG Oral Tablet (Lioresal) Take 1 Tablet by mouth 3 times a day as needed for Muscle spasms. 30 Tablet 1 Pantoprazole Sodium 40 MG Oral Tablet Delayed Release (Protonix) TAKE ONE TABLET BY MOUTH IN THE MORNING 90 Tablet 1 valACYclovir HCl 1 GM Oral Tablet (Valtrex) TAKE ONE TABLET BY MOUTH IN THE MORNING 90 Tablet 0 Fluticasone Propionate 50 MCG/ACT Nasal Suspension (Flonase) 2 sprays each nostril daily 48 g 0 Spironolactone 100 MG Oral Tablet (Aldactone) TAKE ONE TABLET BY MOUTH IN THE MORNING 90 Tablet 0 oxyCODONE HCl 10 MG Oral Tablet (Roxicodone) Take 1 Tablet by mouth. No current facility-administered medications for this visit. Past Medical History: Diagnosis Date Acute hepatic encephalopathy (HCC) 12/07/2016 admitted [facility] Adrenal insufficiency (HCC) ?abnormal ACTH test Alcohol abuse Alcoholic cirrhosis of liver with ascites (HCC) 05/29/2013 admitted [facility], 3 liters taken off Alcoholic cirrhosis of liver without ascites (HCC) Ascites Buprenorphine adverse reaction 01/28/2020 overdose due to applying 4 patches Epididymal mass 12/2011 tiny right epididymal cyst Esophageal varices (HCC) 10/201314 grade I Genital herpes Hemorrhoids Hepatic encephalopathy (HCC) 01/17/2014 [facility], bili 2.1, no ascites Hip pain, right 06/25/2018 acute Hypoglycemia 06/26/2017 Need for hepatitis C screening test 10/23/2012 Hepatitis C negative Pancytopenia (HCC) 01/31/2020 Persistent adjustment disorder with depressed mood 11/09/2017 Poisoning by other synthetic narcotics, accidental (unintentional), initial encounter ([facility]) 02/16/2020 Portal hypertensive gastropathy (HCC) 10/2013 Portal vein thrombosis 10/28/2013 Tympanic membrane perforation, right digging in ear with toothpick Social History Socioeconomic History Marital status: Spouse name: Not on file Number of children: 3 Years of education: 8 Highest education level: Not on file 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, 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 Tobacco Use Smoking status: Former Current packs/day: 0.00 Average packs/day: 0.5 packs/day for 15.0 years (7.5 ttl pk-yrs) Types: Cigarettes Start date: 02/06/1964 Quit date: 02/05/1979 Years since quittin.0 Smokeless tobacco: Current Types: Snuff Tobacco comments: 1 can every 5 days Vaping Use Vaping status: Never Used Substance and Sexual Activity Alcohol use: No Comment: 06/07/2013 last drink beer Drug use: Not Currently Types: Marijuana Comment: stopped crank, acid, marijuana prior to 1979 Sexual activity: Yes Partners: Female Other Topics Concern Not on file Social History Narrative Not on file Social Needs Financial Resource Strain: Low Risk (04/19/2023) Financial Resource Strain Do you have any trouble paying for your medications, or do you think you might in the future? (Adult - for ages 18 years and over): No Does your family have trouble paying for medicine? (Household - for ages 0-17 years): Not on file Food Insecurity: No Food Insecurity (04/19/2023) Food Insecurity Do you need food for this week? (Adult - for ages 18 years and over): No Are you able to get enough food for your family? (Household - for ages 0-17 years): Not on file Does your family need food this week? (Household - for ages 0-17 years): Not on file Do you always have enough food for your family? (Household - for ages 0-17 years): Not on file Transportation Needs: No Transportation Needs (04/19/2023) Transportation Needs Do you have trouble getting a ride to medical visits or work? (Adult - for ages 18 years and over):Never True Does your family have a hard time getting a ride to doctors visits? (Household - for ages 0-17 years): Not on file Has lack of transportation kept you from medical appointments, meetings, work, or from getting things needed for daily living? Check all that apply. (Adult - for ages 18 years and over): Not on file Do you (or your family) have trouble finding or paying for a ride (transportation)? (Household - for ages 0-17 years): Not on file Social Connections: Socially Integrated (04/19/2023) Social Connections How often do you feel lonely or isolated from those around you? (Adult - for ages 18 years and over): Never Housing Stability: Low Risk (04/19/2023) Housing Stability Do you currently live in a detention or have no steady place to sleep at night? (Adult - for ages 18 years and over): No Do you think you are at risk of becoming homeless? (Adult - for ages 18 years and over): No Does your family worry about paying for your home or becoming homeless? (Household - for ages 0-17 years): Not on file Are you homeless or worried that you might be in the future? (Adult - for ages 18 years and over): Not on file Are you (or your family) homeless or worried that you might be in the future? (Household - for ages0-17 years): Not on file O:Blood pressure 142/84, pulse 82. GENERAL: alert and healthy NECK: supple, no adenopathy, no bruits, thyroid normal size, non-tender, without nodularity EYES: PERRLA, conjunctiva are pink and non-injected, sclera clear EARS: External ears normal, Canals clear, TM's Normal NOSE: no mucosal erythema, no mucosal edema, no purulent discharge OROPHARYNX: no exudate, no erythema, lips, buccal mucosa, and tongue normal, and mucous membranes are moist HEART: regular rate & rhythm, no murmur, and no gallops LUNGS: chest symmetric with normal AP diameter, no chest deformities noted, no chest wall tenderness, lungs clear to auscultation A:Chronic bilateral low back pain with right-sided sciatica (Primary) Alcohol use disorder, severe, in sustained remission (HCC) Aortic atherosclerosis (HCC) Cocaine use disorder, moderate, in sustained remission (HCC) Alcoholic cirrhosis of liver without ascites (HCC) Gastroesophageal reflux disease without esophagitis Current episode of major depressive disorder without prior episode, unspecified depression episode severity Portal hypertension (HCC) Thrombocytopenia (HCC) Screening for metabolic disorder - LIPID PANEL WITH DIRECT LDL IF TG IS HIGH; Future; Expected date: 2024 - COMPREHENSIVE METABOLIC PANEL; Future; Expected date: 2024 - CBC WITH WBC DIFFERENTIAL AND ANEMIA REFLEX WORKUP; Future; Expected date: 2024 Will check some labs. Continue with [facility] and ortho. Any questions/problems, pleasecall. If anything changes, worsens, develops new sx, please call [facility]. Follow Up: Return if symptoms worsen or fail to improve. Maria Eugenia Parker PA-C documented in this encounter Nursing Notes * Fidelia Gustafson LPN - 2024 10:16 AM EST Was in hospital a few days ago Shani Has rx for Flexeril, Prednisone, Percocet and 600 MG ibuprofen Has pictures of his back too documented in this encounter Plan of Treatment Upcoming Encounters Date Type Department Care Team (Late st Contact Info) Description 03/06/2024 9:30 AM EST Office Visit Gastroenterology, [facility] [address] [address] Zohaib Mendez CRNP [address] [place] [address] 03/11/2024 10:15 AM EST Telemedicine Urology Sindi Ayers [address] [address] Clinton Garcia MD [address] [place] [phone], Telemed [facility] Urology Ex Rm [address] [place] [address] 03/14/2024 11:30 AM EST Office Visit Orthopaedics Spine Surgery [facility] [address] [place] [phone] Dov Sauceda MD [address] [place] [address] 04/04/2024 10:00 AM EST Office Visit [address] [place] [phone] Najma Garcia MD [address] [place] [address] [place] [phone] Pending Results Name Type Priority Associated Diagnoses Date /Time LIPID PANEL WITH DIRECT LDL IF TG IS HIGH Lab Routine Screening for metabolic disorder 2024 10:39 AM EST COMPREHENSIVE METABOLIC PANEL Lab Routine Screening for metabolic disorder 2024 10:39 AM EST CBC WITH WBC DIFFERENTIAL AND ANEMIA REFLEX WORKUP Lab Routine Screening for metabolic disorder 2024 10:39 AM EST Scheduled Orders Name Type Priority Associated Diagnoses Orde r Schedule LIPID PANEL WITH DIRECT LDL IF TG IS HIGH Lab Routine Screening for metabolic disorder Expected: 2024, Expires: 02/19/2025 COMPREHENSIVE METABOLIC PANEL Lab Routine Screening for metabolic disorder Expected: 2024 (Approximate), Expires: 02/19/2025 CBC WITH WBC DIFFERENTIAL AND ANEMIA REFLEX WORKUP Lab Routine Screening for metabolic disorder Expected: 2024 (Approximate), Expires: 02/19/2025 Scheduled Procedures Name Priority Associated Diagnoses Date/Ti [...] remission (HCC) Anxiety state Anxiety state, unspecified Chronic bilateral low back pain with right-sided sciatica- Primary Alcohol use disorder, severe, in sustained remission (HCC) Aortic atherosclerosis (HCC) Atherosclerosis of aorta Cocaine use disorder, moderate, in sustained remission (HCC) Alcoholic cirrhosis of liver without ascites (HCC) Alcoholic cirrhosis of liver Gastroesophageal reflux disease without esophagitis Esophageal reflux Current episode of major depressive disorder without prior episode, unspecified depression episode severity Portal hypertension (HCC) Portal hypertension Thrombocytopenia (HCC) Thrombocytopenia, unspecified Screening for metabolic disorder documented in this encounter Advance Directives Documents on File Type Date Recorded Patient Roastmaster Expl anation Advance Directives and Living Will 05/14/2020 ADVANCE DIRECTIVE / LIVING WILL Power of Director Of Radiology 05/14/2020 POWER OF A TTORNEY Care Teams Polysomnograph Tech Relationship Specialty Start Date End Date Najma Garcia MD [address] [place] [address] [place] [phone] PCP - General Family Medicine 08/29/23 documented as of this encounter
--- OUTSIDE RECORDS SUMMARY | 2024-04-18 23:33 | External Medical Summary | Summary of Care ---
Author Name Unknown Organization [facility] Address [address] [place] [address] Phone [phone] Care Team Providers Care Control Systems Specialist Name Role Phone Najma Garcia MD Primary Care Provide r Reason for Visit * Reason Onset Date Comments Precert Approved 04/01/2024 Xifaxan Encounter Details Date Type Department Care Team (Late st Contact Info) Description 04/01/2024 Telephone Gastroenterology, [facility] [address] [facility] [place] [address] Zohaib Mendez CRNP [address] [facility] [address] Precert Approved (Xifaxan) Allergies No known active [...] BEFORE BEDTIME 180 Tablet 3 4 Active Baclofen 10 MG Oral Tablet [...] THE MORNING 90 Tablet 1 4 Active Spironolactone 100 MG Oral Tablet (Aldactone)Indicat ions:Alcoholic cirrhosis of liver with ascites (HCC) TAKE ONE TABLET BY MOUTH IN THE MORNING 90 Tablet 4 Active oxyCODONE HCl 10 MG Oral Tablet (Roxicodone) Take 1 Tablet by mouth. 4 Active Fluticasone Propionate 50 MCG/ACT Nasal Suspension (Flonase)Indicatio ns:Acute maxillary sinusitis, recurrence not specified 2 sprays in each nostril once daily 48 g 1 5 Active DULoxetine HCl 60 MG Oral Capsule Delayed Release Particles (Cymbalta)Indicati ons:Current episode of major depressive disorder without prior episode, unspecified depression episode severity TAKE ONE CAPSULE BY MOUTH IN THE MORNING DO NOT CUT, CRUSH, OR CHEW 90 Capsule 1 5 Active valACYclovir HCl 1 GM Oral Tablet (Valtrex) TAKE ONE TABLET BY MOUTH IN THE MORNING 90 Tablet 1 5 Active documented as of this encounter (statuses as of 04/02/2024) Active Problems Problem Noted Date Diagnosed Date Abnormal cystoscopy 09/25/2023 Thrombocytopenia 01/24/2023 Recurrent major depressive disorder 01/24/2023 Portal hypertension 01/24/2023 Chronic pain syndrome 03/29/2022 Assessment & Plan (03/29/2022 12:46 PM EST): Currently not on any opiates and suhas recommend staying off of them moving forward. 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 Esophageal varices without bleeding 02/23/2022 Protein-calorie [...] Grade 1-2 [] Grade 3-4 *A total Jtixu-Bytseask-Yzxr score of 5 to 6 is considered [...] Assessment & Plan (04/06/2021 11:42 AM EST): [facility] RNCM Call: Reviewed case w/ alla Valdes [...] has can lift his arm up senior living to the side or front of him [...] has can lift his arm up senior living to the side or front of him [...] with ascites 05/29/2013 12/15/2016 Overview (06/10/2013): admitted [facility], 3 liters taken off Alcoholic cirrhosis of [...] mRNA, LNP-s, No Pre serve, 2-Dose Series ([employer]) 04/12/2021,09/29/2020,08/25/2020 COVID-19, MRNA-LNP, PF, 30 M CG/0.3 mL, 12 YRS AND ABOVE, IM ([employer]) 07/27/2023 HEP A - Hepatitis A (Adult [...] No 04/19/2023 Does the household have a [facility] source of income? 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
--- OUTSIDE RECORDS SUMMARY | 2024-04-18 23:33 | External Medical Summary ---
Author Name Unknown Address Unknown Organization [id number][place] [place] [address] [facility] [address] Laboratory Report Ordering Provider Test Date Status JOHN CHACON 2024 10:39:13 Final Observation Date Value Abnormality Reference (Units ) Status SYNC LEUKOCYTES IN BLOOD BY AUTOMATED COUNT 2024 10:39:13 6.45 4.00-10.80 (K/uL) Final Segs 2024 10:39:13 75.9 Above high normal 40.0-75.0 (%) Final Lymphs % 2024 10:39:13 13.3 Below low normal 18.0-42.0 (%) Final Monos 2024 10:39:13 9.5 1.0-11.0 (%) Final Eosinophils 2024 10:39:13 0.2 0.0-6.0 (%) Final Basos 2024 10:39:13 0.6 0.0-2.0 (%) Final Immature Granulocyte, Percent 2024 10:39:13 0.5 0.0-2.0 (%) Final Absolute Segs 2024 10:39:13 4.90 1.80-7.70 (K/uL) Final Lymphs, absolute 2024 10:39:13 0.86 Below low normal 1.00-4.80 (K/ul) Final Monos, Abs 2024 10:39:13 0.61 0.00-1.10 (K/uL) Final Eos, Abs 2024 10:39:13 0.01 0.00-0.70 (K/uL) Final Basos, Abs 2024 10:39:13 0.04 0.00-0.20 (K/uL) Final Immature Granulocytes, Number 2024 10:39:13 0.03 0.00-0.20 (K/uL) Final Performing Location [facility] [place] [place] [facility] [place] [id number]
--- OUTSIDE RECORDS SUMMARY | 2024-04-18 23:33 | External Medical Summary | Summary of Care ---
Author Name Unknown Organization [facility] Address [address] [facility] [place] [address] Phone [phone] Care Team Providers Care Fishing Manager Name Role Phone Najma Garcia MD Primary Care Provide r Reason for Visit * Reason Onset Date Comments Precert In Process 04/01/2024 [address] Encounter Details Date Type Department Care Team (Late st Contact Info) Description 04/01/2024 Telephone Gastroenterology, [facility] [address] [place] [address] Zohaib Mendez CRNP [address] [facility] [place] [address] Precert In Process ([address]) Allergies No known active allergiesdocumented as of [...] Grade 1-2 [] Grade 3-4 *A total Xagty-Dbjdheir-Bnrg score of 5 to 6 is considered [...] Assessment & Plan (04/06/2021 11:42 AM EST): [facility] RNCM Call: Reviewed case w/ alla [...] he has can lift his arm up fpc to the side or front of him [...] he has can lift his arm up fpc to the side or front of him [...] with ascites 05/29/2013 12/15/2016 Overview (06/10/2013): admitted [facility], 3 liters taken off Alcoholic cirrhosis [...] mRNA, LNP-s, No Pre serve, 2-Dose Series ([employer]) 04/12/2021,09/29/2020,08/25/2020 COVID-19, MRNA-LNP, PF, 30 M CG/0.3 mL, 12 YRS AND ABOVE, IM ([facility]) 07/27/2023 HEP A - Hepatitis A (Adult [...] No 04/19/2023 Does the household have a [facility] source of income? (Household - for ages [...] care: Self-administered - route pre-cert request to [id number] Office Information: Prescriber: BECKY Gonzales documented in this encounter Plan of Treatment Upcoming Encounters Date Type Department Care Team (Late st Contact Info) Description 04/04/2024 9:40 AM EST Office Visit Family Medicine [address] [place] [phone] Najma Garcia MD [address] [place] [address] [place] [address] Scheduled Procedures Name Priority Associated Diagnoses Date/Ti [...] Documents on File Type Date Recorded Patient Industrial Relations Analyst Expl anation Advance Directives and Living Will 05/14/2020 ADVANCE DIRECTIVE / LIVING WILL Power of Foundation Maker 05/14/2020 POWER OF A TTORNEY Care Teams Fishing Manager Relationship Specialty Start Date End Date Najma Garcia MD [address] [place] [address] [place] [phone] PCP - General Family Medicine 08/29/23 documented as of this encounter
--- OUTSIDE RECORDS SUMMARY | 2024-04-18 23:33 | External Medical Summary | Summary of Care ---
Author Name Unknown Organization [facility] Address [address] [place] [address] Phone [phone] Care Team Providers Care Executive Recruiter Name Role Phone Najma Garcia MD Primary Care Provide r Encounter Details Date Type Department Care Team (Late st Contact Info) Description 03/10/2024 Population Health External Data Unspecified Department Allergies No known active allergiesdocumented as of this encounter (statuses as of 03/10/2024) Medications Nerve Stimulator (CLEVER CHOICE TENS UNIT) [...] as of this encounter (statuses as of 03/10/2024) Active Problems Problem Noted Date Diagnosed Date Abnormal cystoscopy 09/25/2023 Thrombocytopenia 01/24/2023 Recurrent major depressive disorder 01/24/2023 Portal hypertension 01/24/2023 Chronic pain syndrome 03/29/2022 Assessment & Plan (03/29/2022 12:46 PM EST): Currently not on any opiates and suhas recommend staying off of them moving forward. Follows with spine but would avoid further fci opiates. Esophageal varices without bleeding 02/23/2022 Protein-calorie [...] Grade 1-2 [] Grade 3-4 *A total Zuoyp-Uqtdpbvq-Aqyk score of 5 to 6 is considered Child-Do class A (well-compensated disease), 7 to 9 is class B (significant functional compromise), and 10 to 15 is class C (decompensated disease). These classes correlate with one- and two-year patient survival: class A: 100 and 85%; class B: 80 and 60%; and class C: 45 and 35%. With adherence to medications, Justino's cirrhosis is overall stable. It's recommended to [...] & Plan (04/06/2021 11:42 AM EST): [facility] RNCM Call: Reviewed case w/ alla [...] as of this encounter (statuses as of 03/10/2024) Resolved Problems Problem Noted Date Diagnosed Date [...] he has can lift his arm up snf to the side or front of him [...] he has can lift his arm up snf to the side or front of him [...] with ascites 05/29/2013 12/15/2016 Overview (06/10/2013): admitted [facility], 3 liters taken off Alcoholic cirrhosis of liver 02/14/2013 12/15/2016 Alcohol abuse 01/09/2012 12/28/2014 Ascites 01/09/2012 09/18/2017 Epididymal cyst 01/09/2012 03/30/2017 Genital herpes 01/15/2018 Esophageal varices 2 Portal hypertensive gastropathy 04/15/2020 Alcoholic cirrhosis of liver without ascites 04/15/2020 Tympanic membrane perforation, right 07/30/2020 Overview (05/03/2017): digging in ear with toothpick documented as of this encounter (statuses as of 03/10/2024) Immunizations Name Administration Dates Next Due COVID-19 mRNA, LNP-s, No Pre serve, 2-Dose Series (Th[employer]) 04/12/2021,09/29/2020,08/25/2020 COVID-19, MRNA-LNP, PF, 30 M CG/0.3 mL, 12 YRS AND ABOVE, IM ([employer]-Comirnat) 07/27/2023 HEP A - Hepatitis A (Adult [...] 04/19/2023 Does the household have a re gular source of income? (Household - for ages [...] Care Team (Late st Contact Info) Description 03/14/2024 11:30 AM EST Office Visit Orthopaedics Spine Surgery [facility] [address] [place] [phone] Dov Sacueda MD [address] [place] [address] 04/04/2024 10:00 AM EST Office Visit Family Medicine [address] [place] [phone] Najma Garcia MD [address] [place] [address] [place] [address] Scheduled Procedures Name Priority Associated Diagnoses Date/Ti me COLONOSCOPY FLEXIBLE PROXIMA L DIAGNOSTIC Recall History of colonic polyps Health Maintenance Due Date Last Done Comments Zoster Vaccines (2 of 2) 02/27/2020 01/02/2020 COVID-19 Vaccine (5 - 4-2 5 season) 2023 07/27/2023, 04/12/2021, 09/29/2020, Additional history exists Influenza Vaccine (FLU shot) (#1) 2023 01/24/2023, 12/06/2021, 11/28/2021, Additional history exists Depression Monitoring 04/15/2024 04/16/2023 documented as of this encounter Medical Devices Not on filedocumented as of this encounter Advance Directives Documents on File Type Date Recorded Patient Medical Radiation Therapist Expl anation Advance Directives and Living Will 05/14/2020 ADVANCE DIRECTIVE / LIVING WILL Power of Is Analyst 05/14/2020 POWER OF A TTORNEY Care Teams Executive Recruiter Relationship Specialty Start Date End Date Najma Garcia MD [address] [place] [address] [place] [phone] PCP - General Family Medicine 08/29/23 documented as of this encounter
--- OUTSIDE RECORDS SUMMARY | 2024-04-18 23:33 | External Medical Summary | Summary of Care ---
Author Name Unknown Organization [facility] Address [address] [place] [address] Phone [phone] Care Team Providers Care Lace Winder Name Role Phone Najma Garcia MD Primary Care Provide r Reason for Visit * Reason Onset Date Comments FYI 03/10/2024 Encounter Details Date Type Department Care Team (Late st Contact Info) Description 03/10/2024 Telephone Orthopaedics Spine Surgery, [place] [employer] Sindi Thorne [address] [place] [address] Dov Sauceda MD [address] [place] [phone] FY Allergies No known active allergiesdocumented as of this encounter (statuses as of 03/11/2024) Medications Nerve Stimulator (CLEVER CHOICE TENS UNIT) [...] as of this encounter (statuses as of 03/11/2024) Active Problems Problem Noted Date Diagnosed Date Abnormal cystoscopy 09/25/2023 Thrombocytopenia 01/24/2023 Recurrent major depressive disorder 01/24/2023 Portal hypertension 01/24/2023 Chronic pain syndrome 03/29/2022 Assessment & Plan (03/29/2022 12:46 PM EST): Currently not on any opiates and suhas recommend staying off of them moving forward. Follows with spine but would avoid further terminal superintendent opiates. Esophageal varices without bleeding 02/23/2022 Protein-calorie [...] Grade 1-2 [] Grade 3-4 *A total Zzvhp-Zmenimvb-Hxvt score of 5 to 6 is considered [...] as of this encounter (statuses as of 03/11/2024) Resolved Problems Problem Noted Date Diagnosed Date [...] he has can lift his arm up long term to the side or front of him [...] he has can lift his arm up long term to the side or front of him [...] with ascites 05/29/2013 12/15/2016 Overview (06/10/2013): admitted [facility], 3 liters taken off Alcoholic cirrhosis of liver 02/14/2013 12/15/2016 Alcohol abuse 01/09/2012 12/28/2014 Ascites 01/09/2012 09/18/2017 Epididymal cyst 01/09/2012 03/30/2017 Genital herpes 01/15/2018 Esophageal varices 2 Portal hypertensive gastropathy 04/15/2020 Alcoholic cirrhosis of liver without ascites 04/15/2020 Tympanic membrane perforation, right 07/30/2020 Overview (05/03/2017): digging in ear with toothpick documented as of this encounter (statuses as of 03/11/2024) Immunizations Name Administration Dates Next Due COVID-19 mRNA, LNP-s, No Pre serve, 2-Dose Series ([employer]) 04/12/2021,09/29/2020,08/25/2020 COVID-19, MRNA-LNP, PF, 30 M CG/0.3 mL, 12 YRS AND ABOVE, IM (P[employer]ER-Comirnat) 07/27/2023 HEP A - Hepatitis A (Adult [...] No 04/19/2023 Does the household have a up health systemr source of income? (Household - for ages [...] encounter Miscellaneous Notes * Telephone Encounter - Emma Dixon LPN - 03/10/2024 4:23 PM EST Was doing intake and was disconnected. Attempted to call back and didn't go through. * Telephone Encounter - Emma Dixon LPN - 03/10/2024 4:20 PM EST Diego Vila in 08/2023 New Referring physician: HPI: Back pain Which side extremity: back pain that radiates into the left hip Injury and date: none Onset, progress and duration: Balance problems: Bladder or bowel disturbances: Hand dominance for cervical and hand function: Workman compensation/ Litigation/ Soap Boiler: Spine investigations done and date: Xray: MRI:L Spine 02/15/2023 CT scan: L Spine 08/15/2023 EMG/ NCV: Spine treatment so far: Medications: oxycodone, baclofen, gabapentin, diclofenac, nerve stimulator, lidocaine gel Physical therapy within last year: Chiropractor therapy: Brace use: yes Pain management and Spinal epidural injections: Spine surgery - Surgeon and year: Significant Medical history: If diabetic HbA1c: On blood thinners: Osteoporosis screening: Tobacco/ Illicit drug use: Work profile documented in this encounter Plan of Treatment Upcoming Encounters Date Type Department Care Team (Late st Contact Info) Description 03/14/2024 11:30 AM EST Office Visit Orthopaedics Spine Surgery [facility] [address] [place] [phone] oDv Sauceda MD [address] [place] [address] 04/04/2024 10:00 AM EST Office Visit Family Medicine [address] [place] [phone] Najma Garcia MD [address] [place] [address] [place] [phone] Scheduled Procedures Name Priority Associated Diagnoses Date/Ti [...] Documents on File Type Date Recorded Patient Drill Operator Automatic Expl anation Advance Directives and Living Will 05/14/2020 ADVANCE DIRECTIVE / LIVING WILL Power of Soap Boiler 05/14/2020 POWER OF A TTORNEY Care Teams Lace Winder Relationship Specialty Start Date End Date Najma Garcia MD [address] [place] [address] [place] [phone] PCP - General Family Medicine 08/29/23 documented as of this encounter
--- OUTSIDE RECORDS SUMMARY | 2024-04-18 23:33 | External Medical Summary ---
Author Name Unknown Address Unknown Organization [id number]:[facility] [place] - [address] [place] [address] Laboratory Report Ordering Provider Test Date Status THA CHACONLUIS 2024 10:39:13 Final Observation Date Value Abnormality Reference (Units ) Status Iron 2024 10:39:13 61 45-176 (ug/dL) Final Iron-binding capacity 2024 10:39:13 218 Below low normal 250-425 (ug/dL) Final Transferrin Sat % 2024 10:39:13 28 15-55 (%) Final Performing Location [facility] [place] - [address] [place] [address]
--- OUTSIDE RECORDS SUMMARY | 2024-04-18 23:33 | External Medical Summary | Summary of Care ---
Author Name Unknown Organization [facility] Address [address] [place] [address] Phone [phone] Care Team Providers Care Shoe Lining Fitter Name Role Phone John Garcia MD Primary Care Provide r Reason for Visit * Reason Comments eRx-Medication Refill Encounter Details Date Type Department Care Team (Late st Contact Info) Description 03/26/2024 Refill Family [address] [place] [phone] John Garcia MD [address] [place] [address] [place] [address] Acute maxillary sinusitis, recurrence not specified; Current episode of major depressive disorder without prior episode, unspecified depression episode severity Allergies No known active allergiesdocumented as of this encounter (statuses as of 03/27/2024) Medications Nerve Stimulator (CLEVER CHOICE TENS UNIT) DEVIIndications:C hronic midline low back pain without sciatica Use as directed. Use to lower back area in 15 minute intervals up to three times a day 1 Each 09/15/19 20 Active Sildenafil Citrate 20 MG Oral Tablet (REVATIO)Indicati ons:ED (erectile dysfunction) of organic origin Take 2 Tabs by mouth once a week. Take one hour prior to sexual activity 8 Tab 11 11/05/19 20 Active Potassium Chloride 20 MEQ Oral PacketIndications :Hypokalemia MIX 1 PACKET IN WATER AND TAKE [...] Active Triamcinolone Acetonide 0.1 % External Cream (Aristocort)Indic ations:Dermatitis apply to affected area twice daily 45 g 12/26/19 23 Active Lidocaine 0.5 % External GelIndications:Pa in of right heel Apply topically to affected [...] Thiamine HCl 100 MG Oral Tablet (vitamin B-1)Indications:A lcoholic cirrhosis of liver without ascites (HCC) TAKE ONE TABLET BY MOUTH EVERY DAY 100 Tablet 1 03/28/19 24 Active Gabapentin 100 MG Oral Capsule (Neurontin)Indica tions:Peripheral polyneuropathy,Ch ronic bilateral low back pain without sciatica Take 1 Capsule by mouth 2 times a day. 60 Capsule 5 03/29/19 24 Active Folic Acid 1 MG Oral Tablet Take 1 Tablet by mouth in the morning. 90 Tablet 3 03/30/19 24 Active Magnesium 400 MG Oral Tablet Take 400 mg by mouth daily. 100 Tablet 3 04/16/19 24 Active Diclofenac Sodium 3 % External GelIndications:Ch ronic bilateral low back pain with right-sided sciatica,Sacroili itis, not elsewhere classified (HCC),Chronic pain syndrome Apply to back twice daily 100 g 1 04/16/19 24 Active Ondansetron 4 MG Oral Tablet Disintegrating (Zofran) DISSOLVE ONE TABLET IN MOUTH EVERY SIX HOURS NEEDED 30 Tablet 07/17/19 24 Active Kristalose 20 GM Oral Packet [...] Sodium 40 MG Oral Tablet Delayed Release (Protonix)Indicat ions:Alcoholic cirrhosis of liver without ascites (HCC),Protein-batsheva orie malnutrition (HCC),Secondary esophageal varices without bleeding (HCC),Alcohol use disorder, severe, in sustained remission (HCC),Esophageal varices (HCC) TAKE ONE TABLET BY MOUTH IN THE MORNING 90 Tablet 1 11/28/19 24 Active Spironolactone 100 MG Oral Tablet (Aldactone)Indica tions:Alcoholic cirrhosis of liver with ascites (HCC) TAKE ONE TABLET BY MOUTH IN THE MORNING 90 Tablet 01/21/20 24 Active oxyCODONE HCl 10 MG Oral Tablet (Roxicodone) Take 1 Tablet by mouth. 01/09/20 24 Active Fluticasone Propionate 50 MCG/ACT Nasal Suspension (Flonase)Indicati ons:Acute maxillary sinusitis, recurrence not specified 2 sprays in each nostril once daily 48 g 1 03/27/19 25 Active DULoxetine HCl 60 MG Oral Capsule Delayed Release Particles (Cymbalta)Indicat ions:Current episode of major depressive disorder without prior episode, unspecified depression episode severity TAKE ONE CAPSULE BY MOUTH IN THE MORNING DO NOT CUT, CRUSH, OR CHEW 90 Capsule 1 03/27/19 25 Active valACYclovir HCl 1 GM Oral Tablet (Valtrex) TAKE ONE TABLET BY MOUTH IN THE MORNING 90 Tablet 1 03/27/19 25 Active DULoxetine HCl 60 MG Oral Capsule Delayed Release Particles (Cymbalta)Indicat ions:Current episode of major depressive disorder without prior episode, unspecified depression episode severity TAKE ONE CAPSULE BY MOUTH IN THE MORNING DO NOT CUT, CRUSH, OR CHEW 90 Capsule 1 10/13/19 24 025 Discontinued valACYclovir HCl 1 GM Oral Tablet (Valtrex) TAKE ONE TABLET BY MOUTH IN THE MORNING 90 Tablet 01/05/20 24 025 Discontinued Fluticasone Propionate 50 MCG/ACT Nasal Suspension (Flonase)Indicati ons:Acute maxillary sinusitis, recurrence not specified 2 sprays each nostril daily 48 g 01/05/20 24 025 Discontinued documented as of this encounter (statuses as of 03/27/2024) Active Problems Problem Noted Date Diagnosed Date Abnormal cystoscopy 09/25/2023 Thrombocytopenia 01/24/2023 Recurrent major depressive disorder 01/24/2023 Portal hypertension 01/24/2023 Chronic pain syndrome 03/29/2022 Assessment & Plan (03/29/2022 12:46 PM EST): Currently not on any opiates and suhas recommend staying off of them moving forward. Follows with spine but would avoid further retirement opiates. Esophageal varices without bleeding 02/23/2022 Protein-calorie [...] Grade 1-2 [] Grade 3-4 *A total Bvyma-Lwvtonlg-Tnnj score of 5 to 6 is considered [...] Assessment & Plan (04/06/2021 11:42 AM EST): [facility] RNCM Call: Reviewed case w/ alla [...] as of this encounter (statuses as of 03/27/2024) Resolved Problems Problem Noted Date Diagnosed Date [...] he has can lift his arm up fdc to the side or front of him [...] he has can lift his arm up fdc to the side or front of him [...] with ascites 05/29/2013 12/15/2016 Overview (06/10/2013): admitted [facility], 3 liters taken off Alcoholic cirrhosis of liver 02/14/2013 12/15/2016 Alcohol abuse 01/09/2012 12/28/2014 Ascites 01/09/2012 09/18/2017 Epididymal cyst 01/09/2012 03/30/2017 Genital herpes 01/15/2018 Esophageal varices 2 Portal hypertensive gastropathy 04/15/2020 Alcoholic cirrhosis of liver without ascites 04/15/2020 Tympanic membrane perforation, right 07/30/2020 Overview (05/03/2017): digging in ear with toothpick documented as of this encounter (statuses as of 03/27/2024) Immunizations Name Administration Dates Next Due COVID-19 mRNA, LNP-s, No Pre serve, 2-Dose Series (onefinestay) 04/12/2021,09/29/2020,08/25/2020 COVID-19, MRNA-LNP, PF, 30 M CG/0.3 [...] encounter Miscellaneous Notes * Telephone Encounter - Meng Evans RPh - 03/27/2024 2:47 PM ESTSigned Prescriptions: Disp Refills Fluticasone Propionate 50 MCG/ACT Nasal العراقي*48 g 1 Si sprays in each nostril once dailyAuthorizing Provider: JOHN GARCIA User: MENG EVANS DULoxetine HCl 60 MG Oral Capsule Delayed *90 Cap*1 Sig: TAKE ONE CAPSULE BY MOUTH IN THE MORNING DO NOT CUT, CRUSH, OR CHEWAuthorizing Provider: JOHN GARCIA User: MENG VALDEZ valACYclovir HCl 1 GM Oral Tablet (Valtrex)90 Tab*1 Sig: TAKE ONE TABLET BY MOUTH IN THE MORNINGAuthorizing Provider: JOHN GARCIA User: MENG EVANS-------- documented in this encounter Plan of Treatment Upcoming Encounters Date Type Department Care Team (Late st Contact Info) Description 04/04/2024 10:00 AM EST Office Visit Family Medicine [address] [place] [phone] John Garcia MD [address] [place] [address] [place] [phone] Scheduled Procedures Name Priority Associated Diagnoses Date/Ti [...] remission (HCC) Anxiety state Anxiety state, unspecified Acute maxillary sinusitis, recurrence not specified Current episode of major depressive disorder without prior episode, unspecified depression episode severity documented in this encounter Advance Directives Documents on File Type Date Recorded Patient Exhauster Expl anation Advance Directives and Living Will 05/14/2020 ADVANCE DIRECTIVE / LIVING WILL Power of Rn Transitional 05/14/2020 POWER OF A TTORNEY Care Teams Shoe Lining Fitter Relationship Specialty Start Date End Date John Garcia MD [address] [place] [address] [place] [phone] PCP - General Family Medicine 08/29/23 documented as of this encounter
--- OUTSIDE RECORDS SUMMARY | 2024-04-18 23:33 | External Medical Summary ---
Author Name Unknown Address Unknown Organization K01:[facility] [place] - [facility] [address] [facility] [address] Laboratory Report Ordering Provider Test Date Status OSWALDO,KOLUIS 2024 10:39:13 Final Observation Date Value Abnormality Reference (Units ) Status Retic, % (auto) 2024 10:39:13 2.50 Above high normal 0.80-1.90 (%) Final Reticulocytes, Absolute 2024 10:39:13 87.8 31.3-100.1 (K/uL) Final Reticulocyte fraction, immature 2024 10:39:13 13.6 2.5-20.6 (%) Final Reticulocyte HGB 2024 10:39:13 37.2 29.7-37.4 (pg) Final Performing Location [facility] - [address] [place] [address]
--- OUTSIDE RECORDS SUMMARY | 2024-04-18 23:33 | External Medical Summary ---
Author Name Unknown Address Unknown Organization K01:[facility] [place] - [address] [place] [address] Laboratory Report Ordering Provider Test Date Status JOHN CHACON 2024 10:39:13 Final Observation Date Value Abnormality Reference (Units ) Status Vitamin B12 2024 10:39:13 233 528-1844 (pg/mL) Final Performing Location [facility] - [address] [place] [address]
--- OUTSIDE RECORDS SUMMARY | 2024-04-18 23:33 | External Medical Summary | Summary of Care ---
Author Name Unknown Organization [facility] Address [address] [place] [address] Phone [phone] Care Team Providers Care Keno Manager Name Role Phone Najma Garcia MD Primary Care Provide r Reason for Visit * Reason Onset Date Comments Medication Pre-auth 04/01/2024 Encounter Details Date Type Department Care Team (Late st Contact Info) Description 04/01/2024 Telephone Gastroenterology, [facility] [address] [facility] [place] [address] Zohaib Mendez CRNP [address] [facility] [place] [address] Medication Pre-auth Allergies No known active allergiesdocumented as of this encounter (statuses as of 04/01/2024) Medications Nerve Stimulator (CLEVER CHOICE TENS UNIT) [...] as of this encounter (statuses as of 04/01/2024) Active Problems Problem Noted Date Diagnosed Date Abnormal cystoscopy 09/25/2023 Thrombocytopenia 01/24/2023 Recurrent major depressive disorder 01/24/2023 Portal hypertension 01/24/2023 Chronic pain syndrome 03/29/2022 Assessment & Plan (03/29/2022 12:46 PM EST): Currently not on any opiates and suhas recommend staying off of them moving forward. Follows with spine but would avoid further terminal make up operator opiates. Esophageal varices without bleeding 02/23/2022 [...] Grade 1-2 [] Grade 3-4 *A total Evfay-Mzemdidc-Hhxk score of 5 to 6 is considered [...] Assessment & Plan (04/06/2021 11:42 AM EST): [facility] RNCM Call: Reviewed case w/ alla [...] as of this encounter (statuses as of 04/01/2024) Resolved Problems Problem Noted Date Diagnosed Date [...] with ascites 05/29/2013 12/15/2016 Overview (06/10/2013): admitted [facility], 3 liters taken off Alcoholic cirrhosis of liver 02/14/2013 12/15/2016 Alcohol abuse 01/09/2012 12/28/2014 Ascites 01/09/2012 09/18/2017 Epididymal cyst 01/09/2012 03/30/2017 Genital herpes 01/15/2018 Esophageal varices 2 Portal hypertensive gastropathy 04/15/2020 Alcoholic cirrhosis of liver without ascites 04/15/2020 Tympanic membrane perforation, right 07/30/2020 Overview (05/03/2017): digging in ear with toothpick documented as of this encounter (statuses as of 04/01/2024) Immunizations Name Administration Dates Next Due COVID-19 mRNA, LNP-s, No Pre serve, 2-Dose Series ([employer]) 04/12/2021,09/29/2020,08/25/2020 COVID-19, MRNA-LNP, PF, 30 M CG/0.3 mL, 12 YRS AND ABOVE, IM ([facility] 07/27/2023 HEP A - Hepatitis A (Adult [...] No 04/19/2023 Does the household have a select specialty hospitalr source of income? (Household - for [...] care: Self-administered - route pre-cert request to [id number] Office Information: Prescriber: BECKY Gonzales documented in this encounter Plan of Treatment Upcoming Encounters Date Type Department Care Team (Late st Contact Info) Description 04/04/2024 9:40 AM EST Office Visit Family Medicine [address] [place] [phone] Najma Garcia MD [address] [place] [address] [place] [phone] Scheduled Procedures Name Priority Associated Diagnoses Date/Ti [...] Documents on File Type Date Recorded Patient Director Private Music Therapy Agency Expl anation Advance Directives and Living Will 05/14/2020 ADVANCE DIRECTIVE / LIVING WILL Power of Oven Dumper 05/14/2020 POWER OF A TTORNEY Care Teams Keno Manager Relationship Specialty Start Date End Date Najma Garcia MD [address] [place] [address] [place] [phone] PCP - General Family Medicine 08/29/23 documented as of this encounter
--- OUTSIDE RECORDS SUMMARY | 2024-04-18 23:33 | External Medical Summary ---
Author Name Unknown Address Unknown Organization K01:[facility] [place] - [address] [facility] [address] Laboratory Report Ordering Provider Test Date Status JOHN CHACON 2024 10:39:13 Final Observation Date Value Abnormality Reference (Units ) Status Triglyceride 2024 10:39:13 72 <=174 ( mg/dL) Final Triglyceride Reference Range s (mg/dL):
<150 Acceptable
150-174 Borderline high
175-499 High
>=500 Very high Cholesterol 2024 10:39:13 165 <200 (mg /dL) Final Total Cholesterol Reference Ranges (mg/dL):
<200 Desirable
200-239 Borderline high
>=240 High HDL 2024 10:39:13 75 >39 (mg/dL ) Final HDL Cholesterol Reference Ra nges (mg/dL):
>=60 High (Desirable)
<50 Low (Undesirable) For Females
<40 Low (Undesirable) For Males NON-HDL CHOLESTEROL 2024 10:39:13 90 <=159 (mg/dL) Final Non-HDL Cholesterol Referenc e Range (mg/dL):
<100 Target level for high risk ASCVD patient
<130 Optimal for general population
130-159 Near optimal for general population
160-189 Borderline High
190-219 High
>=220 Very High LDL, (calculated) 2024 10:39:13 76 <= 129 (mg/dL) Final LDL Cholesterol Reference Ra nges (mg/dL):
<70 Target level for high risk ASCVD patient
<100 Optimal for general population
100-129 Near optimal for general population
130-159 Borderline high
160-189 High
>=190 Very high Performing Location [facility] [place] - [address] [facility] [address]
--- OUTSIDE RECORDS SUMMARY | 2024-04-18 23:33 | External Medical Summary | Summary of Care ---
Author Name Unknown Organization [facility] Address [address] [place] [address] Phone [phone] Care Team Providers Care Amphibious Operations Officer Name Role Phone Najma Garcia MD Primary Care Provide r Encounter Details Date Type Department Care Team (Late st Contact Info) Description 02/25/2024 Population Health External Data Unspecified Department Allergies No known active allergiesdocumented as of this encounter (statuses as of 02/25/2024) Medications Nerve Stimulator (CLEVER CHOICE TENS UNIT) [...] as of this encounter (statuses as of 02/25/2024) Active Problems Problem Noted Date Diagnosed Date [...] Grade 1-2 [] Grade 3-4 *A total Hrxot-Zliinjrh-Wyjz score of 5 to 6 is considered [...] Assessment & Plan (04/06/2021 11:42 AM EST): [facility] RNCM Call: Reviewed case w/ alla [...] as of this encounter (statuses as of 02/25/2024) Resolved Problems Problem Noted Date Diagnosed Date [...] he has can lift his arm up assisted to the side or front of him [...] he has can lift his arm up assisted to the side or front of him [...] with ascites 05/29/2013 12/15/2016 Overview (06/10/2013): admitted [facility], 3 liters taken off Alcoholic cirrhosis of liver 02/14/2013 12/15/2016 Alcohol abuse 01/09/2012 12/28/2014 Ascites 01/09/2012 09/18/2017 Epididymal cyst 01/09/2012 03/30/2017 Genital herpes 01/15/2018 Esophageal varices 2 Portal hypertensive gastropathy 04/15/2020 Alcoholic cirrhosis of liver without ascites 04/15/2020 Tympanic membrane perforation, right 07/30/2020 Overview (05/03/2017): digging in ear with toothpick documented as of this encounter (statuses as of 02/25/2024) Immunizations Name Administration Dates Next Due COVID-19 mRNA, LNP-s, No Pre serve, 2-Dose Series (Concept3D) 04/12/2021,09/29/2020,08/25/2020 COVID-19, MRNA-LNP, PF, 30 M CG/0.3 mL, 12 YRS AND ABOVE, IM (Hidden Radio-Comirnat) 07/27/2023 HEP A - Hepatitis A (Adult [...] 03/06/2024 9:30 AM EST Office Visit [facility] [address] [address] [address] Zohaib Mendez CRNP [address] [address] [address] 03/11/2024 10:15 AM EST Telemedicine Urology Sindi Ayers [address] [place] [address] Clinton Garcia MD [address] [place] [address] [address] 7, Telemed [facility] Urology Ex Rm [address] [place] [address] 03/14/2024 11:30 AM EST Office Visit Orthopaedics [facility] [address] [place] [phone] Dov Sauceda MD [address] [place] [address] 04/04/2024 10:00 AM EST Office Visit Family [address] [place] [phone] Najma Garcia MD [address] [place] [address] [place] [address] Scheduled Procedures Name Priority Associated Diagnoses Date/Ti me COLONOSCOPY FLEXIBLE PROXIMA L DIAGNOSTIC Recall History of colonic polyps Health Maintenance Due Date Last Done Comments Zoster Vaccines (2 of 2) 02/27/2020 01/02/2020 COVID-19 Vaccine (5 - 2023-2 5 season) 2023 07/27/2023, 04/12/2021, 09/29/2020, Additional history exists Influenza Vaccine (FLU shot) (#1) 2023 01/24/2023, 12/06/2021, 11/28/2021, Additional history exists Depression Monitoring 04/15/2024 04/16/2023 documented as of this encounter Medical Devices Not on filedocumented as of this encounter Advance Directives Documents on File Type Date Recorded Patient Concession Attendant Expl anation Advance Directives and Living Will 05/14/2020 ADVANCE DIRECTIVE / LIVING WILL Power of A Class Lineman 05/14/2020 POWER OF A TTORNEY Care Teams Amphibious Operations Officer Relationship Specialty Start Date End Date Najma Garcia MD [address] [place] [address] [place] [address] PCP - General Family Medicine 08/29/23 documented as of this encounter
--- OUTSIDE RECORDS SUMMARY | 2024-04-18 23:34 | External Medical Summary | Summary of Care ---
Author Name Unknown Organization [facility] Address [address] [place] [address] Phone [phone] Care Team Providers Care Deckhand Maintenance Name Role Phone Najma Gacria MD Primary Care Provide r Reason for Visit * Reason Onset Date Comments Advice 02/19/2024 Encounter Details Date Type Department Care Team (Late st Contact Info) Description 02/19/[address] [phone] Najma Garcia MD [address] [place] [address] [place] [address] Advice Allergies No known active allergiesdocumented as of this encounter (statuses as of 02/19/2024) Medications Nerve Stimulator (CLEVER CHOICE TENS UNIT) [...] as of this encounter (statuses as of 02/19/2024) Active Problems Problem Noted Date Diagnosed Date [...] Grade 1-2 [] Grade 3-4 *A total Nrqgy-Kxqvrxxc-Izcr score of 5 to 6 is considered [...] Assessment & Plan (04/06/2021 11:42 AM EST): [facility] RNCM Call: Reviewed case w/ alla Valdes [...] as of this encounter (statuses as of 02/19/2024) Resolved Problems Problem Noted Date Diagnosed Date [...] he has can lift his arm up [facility] to the side or front of him [...] he has can lift his arm up [facility] to the side or front of him [...] ascites 05/29/2013 12/15/2016 Overview (06/10/2013): admitted [facility], 3 liters taken off Alcoholic cirrhosis of liver 02/14/2013 12/15/2016 Alcohol abuse 01/09/2012 12/28/2014 Ascites 01/09/2012 09/18/2017 Epididymal cyst 01/09/2012 03/30/2017 Genital herpes 01/15/2018 Esophageal varices 2 Portal hypertensive gastropathy 04/15/2020 Alcoholic cirrhosis of liver without ascites 04/15/2020 Tympanic membrane perforation, right 07/30/2020 Overview (05/03/2017): digging in ear with toothpick documented as of this encounter (statuses as of 02/19/2024) Immunizations Name Administration Dates Next Due COVID-19 mRNA, LNP-s, No Pre serve, 2-Dose Series (Alytics) 04/12/2021,09/29/2020,08/25/2020 COVID-19, MRNA-LNP, PF, 30 M CG/0.3 mL, 12 YRS AND ABOVE, IM (snagajob.com-Comirnat) 07/27/2023 HEP A - Hepatitis A (Adult [...] encounter Miscellaneous Notes * Telephone Encounter - Taina Michelle CMA - 02/19/2024 11:06 AM EST Patient has an appointment tomorrow. He probably missed a reminder call. * Telephone Encounter - Emily Thakur OSA - 02/19/2024 11:02 AM EST Andrea Harvey "Chip" called in from a missed call/ nothing noted in chart Please call : [phone] documented in this encounter Plan of Treatment Upcoming Encounters Date Type Department Care Team (Late st Contact Info) Description 2024 10:00 AM EST Office Visit Family [address] [place] [phone] Maria Eugenia Parker PA-C [address] [place] [address] [place] [address] 03/06/2024 9:30 AM EST Office Visit Gastroenterology, [facility] [address] [place] [address] Zohaib Mendez CRNP [address] [place] [address] 03/11/2024 10:15 AM EST Telemedicine Urology Sindi Ayers [address] [place] [address] Clinton Garcia MD [address] [place] [address] 7, Telemed [facility] Urology Ex [address] [place] [address] 03/14/2024 11:30 AM EST Office Visit [facility]opaedics Spine [facility] [place] [phone] Dov Sauceda MD [address] [place] [address] 04/04/2024 10:00 AM EST Office Visit [address] [phone] Najma Garcia MD [address] [place] [address] [place] [address] Scheduled Procedures Name Priority Associated Diagnoses Date/Ti [...] Documents on File Type Date Recorded Patient Fish Machine Feeder Expl anation Advance Directives and Living Will 05/14/2020 ADVANCE DIRECTIVE / LIVING WILL Power of Print Controller 05/14/2020 POWER OF A TTORNEY Care Teams Deckhand Maintenance Relationship Specialty Start Date End Date Najma Garcia MD [address] [place] [address] [place] [address] PCP - General Family Medicine 08/29/23 documented as of this encounter
--- OUTSIDE RECORDS SUMMARY | 2024-04-18 23:34 | External Medical Summary | Summary of Care ---
Author Name Unknown Organization [facility] Address [address] [place] [address] Phone [phone] Care Team Providers Care Hydraulic Governor Assembler Name Role Phone Najma Garcia MD Primary Care Provide r Reason for Visit * Reason Onset Date Comments Referral 11/06/2023 Encounter Details Date Type Department Care Team (Late st Contact Info) Description 11/06/[address] [phone] Najma Garcia MD [address] [place] [address] [place] [id number] Referral Allergies No known active allergiesdocumented as of this encounter (statuses as of 02/05/2024) Medications Nerve Stimulator (CLEVER CHOICE TENS UNIT) [...] BEDTIME 180 Tablet 3 09/19/19 24 Active DULoxetine HCl 60 MG Oral Capsule Delayed Release Particles (Cymbalta)Indicat ions:Current episode of major depressive disorder without prior episode, unspecified depression episode severity TAKE ONE CAPSULE BY MOUTH IN THE MORNING DO NOT CUT, CRUSH, OR CHEW 90 Capsule 1 10/13/19 24 Active Baclofen 10 MG Oral Tablet (Lioresal) Take 1 Tablet by mouth 3 times a day as needed for Muscle spasms. 30 Tablet 1 11/02/19 24 Active Spironolactone 100 MG Oral Tablet (Aldactone) Take 1 Tablet by mouth in the morning. 90 Tablet 3 10/24/19 23 2023 Discontinued Fluticasone Propionate 50 MCG/ACT Nasal Suspension (Flonase)Indicati ons:Acute maxillary sinusitis, recurrence not specified ADMINISTER 2 SPRAYS INTO EACH NOSTRIL DAILY. 48 g 3 11/16/19 23 2023 Discontinued valACYclovir HCl 1 GM Oral Tablet (Valtrex) Take 1 Tablet by mouth in the morning. 90 Tablet 1 03/29/19 24 2023 Discontinued Pantoprazole Sodium 40 MG Oral Tablet Delayed Release (Protonix)Indicat ions:Alcoholic cirrhosis of liver without ascites (HCC),Protein-batsheva orie malnutrition (HCC),Secondary esophageal varices without bleeding (HCC),Alcohol use disorder, severe, in sustained remission (HCC),Esophageal varices (HCC) Take 1 Tablet by mouth in the morning. 90 Tablet 1 03/30/19 24 2023 Discontinued documented as of this encounter (statuses as of 02/05/2024) Active Problems Problem Noted Date Diagnosed Date [...] Grade 1-2 [] Grade 3-4 *A total Imini-Hzvjbskl-Falj score of 5 to 6 is considered [...] Assessment & Plan (04/06/2021 11:42 AM EST): [facility] RNCM Call: Reviewed case w/ alla [...] as of this encounter (statuses as of 02/05/2024) Resolved Problems Problem Noted Date Diagnosed Date [...] he has can lift his arm up residential to the side or front of him [...] he has can lift his arm up residential to the side or front of him [...] as of this encounter (statuses as of 02/05/2024) Immunizations Name Administration Dates Next Due COVID-19 mRNA, LNP-s, No Pre serve, 2-Dose Series (buildabrand) 04/12/2021,09/29/2020,08/25/2020 COVID-19, MRNA-LNP, PF, 30 M CG/0.3 [...] encounter Miscellaneous Notes * Telephone Encounter - Chela Haro RN - 11/28/2023 7:31 AM EDT No Answer, Mailbox is full, so unable to leave a message and pt does not have My Chart He just needs to call his eye doctor to make an appt. No referral is needed for a check up for glasses, only if he has a medical condition of his eyes * Telephone Encounter - Mary Pathak OSA - 11/27/2023 4:06 PM EDT An order was requested for this patient. Name of Requesting Provider: Pt Order Requested: Eye Glasses Diagnosis/Reason for Request: Weakening Eyes If order request is for Mammogram: Is the patient having any breast symptoms? N/A Is there a chance of ? N/A Has the patient had any breast problems in the past? NA What location AND department does the patient wish to have their order completed at? Na Fax Number, if applicable: Na If the caller is not a current patient, please advise the patient to call their current PCP to havethe order's prior to being seen in our office. The patient was informed that our providers would not order anything (medication, labs, etc.) prior to being seen. * Telephone Encounter - Najma Garcia MD - 11/07/2023 8:00 AM EDT He has already been referred to pain medicine, orthopedics, and spinal surgery. He needs to see them * Telephone Encounter - Tiny Nicole OSA - 11/06/2023 9:50 AM EDT Pt called seeking a referral to address his ongoing pain in R leg. Pt reports pain in his quad muscle. Please advise. documented in this encounter Plan of Treatment Upcoming Encounters Date Type Department Care Team (Late st Contact Info) Description 03/06/2024 9:30 AM EST Office Visit Gastroenterology, [facility] [address] [address] [address] Zohaib Mendez CRNP [address] [place] [address] [address] 03/11/2024 10:15 AM EST Telemedicine Urology [facility] [place] [address] [place] [address] Clinton Garcia MD [address] [place] [address] 7, Telemed [facility] Urology Ex Rm [address] [facility] [place] [address] 03/14/2024 11:30 AM EST Office Visit Orthopaedics Spine Surgery, [facility] 132 [facility] [place] [address] Dov Sauceda MD [address] [place] [address] 04/04/2024 10:00 AM EST Office Visit [address] [phone] Najma Garcia MD [address] [place], [place] [address] [address] Scheduled Procedures Name Priority Associated Diagnoses Date/Ti [...] Documents on File Type Date Recorded Patient Plate Embosser Expl anation Advance Directives and Living Will 05/14/2020 ADVANCE DIRECTIVE / LIVING WILL Power of Tandem Mill Operator 05/14/2020 POWER OF A TTORNEY Care Teams Hydraulic Governor Assembler Relationship Specialty Start Date End Date Najma Garcia MD [address] [place] [address] [place] [address] PCP - General Family Medicine 08/29/23 documented as of this encounter
--- OUTSIDE RECORDS SUMMARY | 2024-04-18 23:34 | External Medical Summary ---
Author Name Unknown Address Unknown Organization [id number]:LABORATORY [facility] [place] - [address] [place] [address] Laboratory Report Ordering Provider Test Date Status JOHN CHACON 2024 10:39:13 Final Observation Date Value Abnormality Reference (Units ) Status Folic Acid 2024 10:39:13 15.6 >4.5 (ng/ mL) Final Performing Location LABORATORY [facility] - [address] [place] [address]
--- OUTSIDE RECORDS SUMMARY | 2024-04-18 23:34 | External Medical Summary ---
Author Name Unknown Address Unknown Organization [id number]:[facility] [place] [address] [facility] [address] Laboratory Report Ordering Provider Test Date Status JOHN CHACON 2024 10:39:13 Final Observation Date Value Abnormality Reference (Units ) Status WBC, Total 2024 10:39:13 6.45 4.00-10.8 0 (K/uL) Final RBC 2024 10:39:13 3.49 4.50-5.25 (M/uL) Final Hemoglobin 2024 10:39:13 11.6 Below low normal 14 .0-16.8 (g/dL) Final Anemia reflex testing trigge rs on a HGB < 12.0 for Females and HGB < 13.0 for Males in accordance with the WHO Anemia Guidelines
Anemia reflex testing triggers on a HGB < 12.0 for Females and HGB < 13.0 for Males in accordance with the WHO Anemia Guidelines HCT 2024 10:39:13 34.8 Below low normal 40. 0-48.4 (%) Final MCV 2024 10:39:13 99.7 82.0-99.5 (fL) Final MCH 2024 10:39:13 33.2 27.0-34.0 (pg) Final MCHC 2024 10:39:13 33.3 32.0-36.0 (g/dL) Final RDW 2024 10:39:13 14.7 11.5-15.5 (%) Final Platelets 2024 10:39:13 80 Below low normal 140 -400 (K/uL) Final MPV 2024 10:39:13 10.8 6.6-11.1 ( fL) Final Nucleated erythrocytes/100 leukocytes [Ratio] in Blood by Automated count 2024 10:39:13 0 <=0 (/100 WBCs) Final Performing Location [facility] [place] [address] [facility] [address]
--- OUTSIDE RECORDS SUMMARY | 2024-04-18 23:34 | External Medical Summary ---
Author Name Unknown Address Unknown Organization K01:LABORATORY [facility] [place] - [address] [facility] [place] [address] Laboratory Report Ordering Provider Test Date Status JOHN CHACON 2024 10:39:13 Final Observation Date Value Abnormality Reference (Units ) Status TSH 2024 10:39:13 0.15 Below low normal 0.2 7-4.20 (uIU/mL) Final Performing Location LAB[facility]ATORY [facility] - [address] [facility] [address]
--- OUTSIDE RECORDS SUMMARY | 2024-04-18 23:34 | External Medical Summary | Summary of Care ---
Author Name Unknown Organization [facility] Address [address] [place] [address] Phone [phone] Care Team Providers Care Holistic Health Practitioner Name Role Phone Najma Garcia MD Primary Care Provide r Reason for Visit * Reason Comments eRx-Medication Refill Encounter Details Date Type Department Care Team (Late st Contact Info) Description 01/04/2024 Refill Family [address] [place] [address] Najma Garcia MD [address] [place] [address] [place] [address] Acute maxillary sinusitis, recurrence not specified Allergies No known active allergiesdocumented as of this encounter (statuses as of 01/05/2024) Medications Nerve Stimulator (CLEVER CHOICE TENS UNIT) [...] a day as needed for Heartburn. Active Spironolactone 100 MG Oral Tablet (Aldactone) Take 1 Tablet by mouth in the morning. 90 Tablet 3 10/24/19 23 Active Albuterol Sulfate HFA 108 (90 Base) [...] MORNING 90 Tablet 1 11/28/19 24 Active valACYclovir HCl 1 GM Oral Tablet (Valtrex) TAKE ONE TABLET BY MOUTH IN THE MORNING 90 Tablet 01/05/20 24 Active Fluticasone Propionate 50 MCG/ACT Nasal Suspension (Flonase)Indicati ons:Acute maxillary sinusitis, recurrence not specified 2 sprays each nostril daily 48 g 01/05/20 24 Active Fluticasone Propionate 50 MCG/ACT Nasal Suspension (Flonase)Indicati ons:Acute maxillary sinusitis, recurrence not specified ADMINISTER 2 SPRAYS INTO EACH NOSTRIL DAILY. 48 g 3 11/16/19 23 2023 Discontinued valACYclovir HCl 1 GM Oral Tablet (Valtrex) Take 1 Tablet by mouth in the morning. 90 Tablet 1 03/29/19 24 2023 Discontinued documented as of this encounter (statuses as of 01/05/2024) Active Problems Problem Noted Date Diagnosed Date Abnormal cystoscopy 09/25/2023 Thrombocytopenia 01/24/2023 Recurrent major depressive disorder 01/24/2023 Portal hypertension 01/24/2023 Chronic pain syndrome 03/29/2022 Assessment & Plan (03/29/2022 12:46 PM EST): Currently not on any opiates and ushas recommend staying off of them moving forward. Follows with spine but would avoid further terminal press operator opiates. Esophageal varices without bleeding 02/23/2022 [...] Grade 1-2 [] Grade 3-4 *A total Vnsge-Lwdrusgw-Pbvv score of 5 to 6 is considered [...] Assessment & Plan (04/06/2021 11:42 AM EST): [facility] RNCM Call: Reviewed case w/ alla [...] as of this encounter (statuses as of 01/05/2024) Resolved Problems Problem Noted Date Diagnosed Date [...] as of this encounter (statuses as of 01/05/2024) Immunizations Name Administration Dates Next Due COVID-19 mRNA, LNP-s, No Pre serve, 2-Dose Series (Avuba) 04/12/2021,09/29/2020,08/25/2020 COVID-19, MRNA-LNP, PF, 30 M CG/0.3 mL, 12 YRS AND ABOVE, IM (Surefield-Comirnaty) 07/27/2023 HEP A - Hepatitis A (Adult [...] encounter Miscellaneous Notes * Telephone Encounter - Esteban Park [facility] - 01/05/2024 5:45 PM ESTSigned Prescriptions: Disp Refills valACYclovir HCl 1 GM Oral Tablet (Valtrex)90 Tab*0 Sig: TAKE ONE TABLET BY MOUTH IN THE MORNINGAuthorizing Provider: NAJMA GARCIAOrdernickie User: ESTEBAN PARK Fluticasone Propionate 50 MCG/ACT Nasal العراقي*48 g 0 Si sprays each nostril dailyAuthorizing Provider: NAJMA GARCIA User: ESTEBAN PARK documented in this encounter Plan of Treatment Upcoming Encounters Date Type Department Care Team (Late st Contact Info) Description 03/06/2024 9:30 AM EST Office Visit Gastroenterology, [facility] [address] [place] [address] Zohaib Mendez CRNP 132 [place] [address] 03/31/2024 10:30 AM EST Office Visit Urology, [facility] [address] [place] [address] Clinton Garcia MD 27 [facility] [place] [address] 04/04/2024 10:00 AM EST Office Visit Family [address] [place] [phone] Najma Garcia MD [address] [place] [address] [place] [address] Scheduled Procedures Name Priority Associated Diagnoses Date/Ti [...] unspecified Acute maxillary sinusitis, recurrence not specified documented in this encounter Advance Directives Documents on File Type Date Recorded Patient Baffle Installer Expl anation Advance Directives and Living Will 05/14/2020 ADVANCE DIRECTIVE / LIVING WILL Power of Back Sewer 05/14/2020 POWER OF A TTORNEY Care Teams Holistic Health Practitioner Relationship Specialty Start Date End Date Najma Garcia MD [address] [place] [address] [place] [address] PCP - General Family Medicine 08/29/23 documented as of this encounter
--- OUTSIDE RECORDS SUMMARY | 2024-04-18 23:34 | External Medical Summary | Summary of Care ---
Author Name Unknown Organization [facility] Address [address] [place] [address] Phone [phone] Care Team Providers Care Six Sigma Black Belt Engineer Name Role Phone Najma Garcia MD Primary Care Provide r Reason for Visit * Reason Comments eRx-Medication Refill Encounter Details Date Type Department Care Team (Late st Contact Info) Description 01/21/2024 Refill Gastroenterology, [facility] [address] [place] [address] Kayla Figueroa CRNP [address] [facility] [place], [place] [address] Alcoholic cirrhosis of liver with ascites (HCC)* Allergies No known active allergiesdocumented as of this encounter (statuses as of 01/21/2024) Medications Nerve Stimulator (CLEVER CHOICE TENS UNIT) [...] nostril daily 48 g 01/05/20 24 Active Spironolactone 100 MG Oral Tablet (Aldactone)Indica tions:Alcoholic cirrhosis of liver with ascites (HCC) TAKE ONE TABLET BY MOUTH IN THE MORNING 90 Tablet 01/21/20 24 Active oxyCODONE HCl 10 MG Oral Tablet (Roxicodone) Take 1 Tablet by mouth. 01/09/20 24 Active Spironolactone 100 MG Oral Tablet (Aldactone) Take 1 Tablet by mouth in the morning. 90 Tablet 3 10/24/19 23 024 Discontinued documented as of this encounter (statuses as of 01/21/2024) Active Problems Problem Noted Date Diagnosed Date Abnormal cystoscopy 09/25/2023 Thrombocytopenia 01/24/2023 Recurrent major depressive disorder 01/24/2023 Portal hypertension 01/24/2023 Chronic pain syndrome 03/29/2022 Assessment & Plan (03/29/2022 12:46 PM EST): Currently not on any opiates and suhas recommend staying off of them moving forward. Follows with spine but would avoid further nursing home opiates. Esophageal varices without bleeding 02/23/2022 Protein-calorie [...] Grade 1-2 [] Grade 3-4 *A total Keeye-Mzfmndku-Jydj score of 5 to 6 is considered [...] Assessment & Plan (04/06/2021 11:42 AM EST): [facility]: [facility]/ alla Valdes Demonstrating [...] as of this encounter (statuses as of 01/21/2024) Resolved Problems Problem Noted Date Diagnosed Date [...] with ascites 05/29/2013 12/15/2016 Overview (06/10/2013): admitted [facility], 3 liters taken off Alcoholic cirrhosis of liver 02/14/2013 12/15/2016 Alcohol abuse 01/09/2012 12/28/2014 Ascites 01/09/2012 09/18/2017 Epididymal cyst 01/09/2012 03/30/2017 Genital herpes 01/15/2018 Esophageal varices 2 Portal hypertensive gastropathy 04/15/2020 Alcoholic cirrhosis of liver without ascites 04/15/2020 Tympanic membrane perforation, right 07/30/2020 Overview (05/03/2017): digging in ear with toothpick documented as of this encounter (statuses as of 01/21/2024) Immunizations Name Administration Dates Next Due COVID-19 mRNA, LNP-s, No Pre serve, 2-Dose Series (View and Chew) 04/12/2021,09/29/2020,08/25/2020 COVID-19, MRNA-LNP, PF, 30 M CG/0.3 [...] encounter Miscellaneous Notes * Telephone Encounter - Kayla Figueroa CRNP - 01/21/2024 2:32 PM ESTSigned Prescriptions: Disp Refills Spironolactone 100 MG Oral Tablet (Aldacto*90 Tab*0 Sig: TAKE ONE TABLET BY MOUTH IN THE MORNING Authorizing Provider: KAYLA FIGUEROA * Telephone Encounter - Sandy Jiang LPN - 01/21/2024 1:25 PM ESTPending Prescriptions: Disp Refills Spironolactone 100 MG Oral Tablet (Aldacto*90 Tab*0 Sig: TAKE ONE TABLET BY MOUTH IN THE MORNING * Telephone Encounter - Nicole Dutta two - 01/21/2024 1:19 PM ESTPending Prescriptions: Disp Refills Spironolactone 100 MG Oral Tablet [Pharmac*90 Tab*0 Sig: TAKE ONE TABLET BY MOUTH IN THE MORNING * Telephone Encounter - Nicole Dutta - 01/21/2024 1:17 PM EST Did you pend patient's preferred pharmacy and medication before forwarding?yes Pharmacy: [id number] [facility] Pending Prescriptions: Disp Refills Spironolactone 100 MG Oral Tablet (Aldact*90 Tab*0 Sig: TAKE ONE TABLET BY MOUTH IN THE MORNING Last Visit: 02/02/2023 (in office), 03/08/2020 (telemedicine) Next Visit: 03/06/2024 If no future appointments scheduled, and last appointment is greater than a year ago, please schedule patient for a follow-up appointment Last date the medication was ordered: 10/23/2022 Is this request for a controlled substance?No [...] Labs: Lab Results Component Value Date/Time CREAT 0.45 (A) 05/16/2023 12:00 AM CREAT 0.7 02/16/2020 12:57 PM POTASSIUM 3.9 05/16/2023 12:00 AM POTASSIUM 3.6 02/16/2020 12:57 PM TSH 2.46 06/15/2021 09:35 AM TSH 1.220 08/27/2017 12:00 AM TSH 2.94 01/15/2017 08:48 AM LDL 93 06/15/2021 09:35 AM LDL 96 07/16/2019 12:15 PM ALT 36 02/14/2023 10:42 AM ALT 25 07/16/2019 12:15 PM HGBA1C 5.1 07/05/2022 12:50 PM HGBA1C 5.0 06/22/2017 01:56 PM documented in this encounter Plan of Treatment Upcoming Encounters Date Type Department Care Team (Late st Contact Info) Description 03/06/2024 9:30 AM EST Office Visit Gastroenterology, [facility] 132 [facility] [place] [address] Kayla Figueroa CRNP 132 [facility] [place] [address] 03/14/2024 11:30 AM EST Office Visit Orthopaedics Spine Surgery, [facility] 132 [place] [address] Dov Sauceda MD [address] [place] [address] 03/31/2024 10:30 AM EST Office Visit Urology, [facility] 132 [place] [address] Clinton Garcia MD [address] [place] [phone] 04/04/2024 10:00 AM EST Office Visit Family [address] [phone] Najma Garcia MD [address] [place] [address] [place] [id number] Scheduled Procedures Name Priority Associated Diagnoses Date/Ti [...] remission (HCC) Anxiety state Anxiety state, unspecified Alcoholic cirrhosis of liver with ascites (HCC)- Primary Alcoholic cirrhosis of liver documented in this encounter Advance Directives Documents on File Type Date Recorded Patient Medicine Aide Expl anation Advance Directives and Living Will 05/14/2020 ADVANCE DIRECTIVE / LIVING WILL Power of Client Service Representative 05/14/2020 POWER OF A TTORNEY Care Teams Six Sigma Black Belt Engineer Relationship Specialty Start Date End Date Najma Garcia MD [address] [place] [address] [place] [phone] PCP - General Family Medicine 08/29/23 documented as of this encounter
--- OUTSIDE RECORDS SUMMARY | 2024-04-18 23:34 | External Medical Summary | Summary of Care ---
Author Name Unknown Organization [facility] Address [address] [place] [place] [address] Phone [phone] Care Team Providers Care Mica Washer Gluer Name Role Phone Najma Garcia MD Primary Care Provide r Reason for Visit * Reason Comments Re-Check Encounter Details Date Type Department Care Team (Late st Contact Info) Description 01/21/2024 1:40 PM EST Office Visit Family [address] [phone] Maria Eugenia Parker PA-C [address] [place] [address] Dr [place] [address] Alcohol use disorder, severe, in sustained remission (HCC)*; Ambulatory dysfunction; S/P lumbar spinal fusion; Chronic bilateral low back pain with right-sided sciatica Allergies No known active allergiesdocumented as of [...] each nostril daily 48 g 4 Active oxyCODONE HCl 10 MG Oral [...] Follows with spine but would avoid further tank terminal gauger opiates. Esophageal varices without bleeding 02/23/2022 Protein-calorie [...] Grade 1-2 [] Grade 3-4 *A total Wzaov-Nktclpdj-Xxbd score of 5 to 6 is considered [...] Assessment & Plan (04/06/2021 11:42 AM EST): [facility] RNCM Call: Reviewed case w/ alla [...] he has can lift his arm up fci to the side or front of him [...] he has can lift his arm up fci to the side or front of him [...] with ascites 05/29/2013 12/15/2016 Overview (06/10/2013): admitted [facility], 3 liters taken off Alcoholic [...] mRNA, LNP-s, No Pre serve, 2-Dose Series ([employer]) 04/12/2021,09/29/2020,08/25/2020 COVID-19, MRNA-LNP, PF, 30 M CG/0.3 mL, 12 YRS AND ABOVE, IM ([employer]) 07/27/2023 HEP A - Hepatitis A (Adult [...] No 04/19/2023 Does the household have a [facility] source of income? (Household - for [...] Sign Reading Time Taken Comments Blood Pressure 100/58 01/21/2024 1:46 PM EST Pulse 80 01/21/2024 1:46 PM EST Temperature 36.1 C (97 F) 01/21/2024 1:46 PM EST Respiratory Rate - - Oxygen Saturation - [...] Notes * Maria Eugenia Parker PA-C - 01/21/2024 1:51 PM EST Nursing Notes: Fidelia Gustafson, SOCCER COMMENTATOR 01/21/24 0950 Signed States he is on too many medications But the only one that works is Oxy His back is hurting- Needs another back operation Dr. Bauer wants x rays & MRIs "and whatever" "And something about my left hip. Its the biggest problem" - That is what he states Dr. Allen told him. Pt here today with ongoing hip and lower back pain. He canceled his last ortho spine appt. He just saw U 2 weeks ago for his hip pain. They said he wa sa poor surgical candidate because of his chronic alcohol and tobacco use. He is seeing [facility] for his pain meds. He is taking oxycodone. Review of patient's allergies indicates: No Known Allergies Current Outpatient Medications Medication Sig Dispense Refill oxyCODONE HCl 10 MG Oral Tablet (Roxicodone) Take 1 Tablet by mouth. Nerve Stimulator (Microsaic TENS UNIT) SHAN Use as directed. Use [...] times a day as needed for Heartburn. Spironolactone 100 MG Oral Tablet (Aldactone) Take 1 Tablet by mouth in the morning. 90 Tablet 3 Albuterol Sulfate HFA 108 (90 Base) MCG/ACT [...] sprays each nostril daily 48 g 0 No current facility-administered medications for this visit. Past Medical History: Diagnosis Date Acute hepatic encephalopathy (HCC) 12/07/2016 admitted [facility] Adrenal insufficiency (HCC) ?abnormal ACTH test Alcohol abuse Alcoholic cirrhosis of liver with ascites (HCC) 05/29/2013 admitted [facility], 3 liters taken off Alcoholic cirrhosis of liver without ascites (HCC) Ascites Buprenorphine adverse reaction 01/28/2020 overdose due to applying 4 patches Epididymal mass 12/2011 tiny right epididymal cyst Esophageal varices (HCC) 10/201314 grade I Genital herpes Hemorrhoids Hepatic encephalopathy (HCC) 01/17/2014 [facility], bili 2.1, no ascites Hip pain, right 06/25/2018 acute Hypoglycemia 06/26/2017 Need for hepatitis C screening test 10/23/2012 Hepatitis C negative Pancytopenia (HCC) 01/31/2020 Persistent adjustment disorder with depressed mood 11/09/2017 Poisoning by other synthetic narcotics, accidental (unintentional), initial encounter ([facility]) 02/16/2020 Portal hypertensive gastropathy (HCC) 10/2013 Portal vein thrombosis 10/28/2013 Tympanic membrane perforation, right digging in ear with toothpick Social History Socioeconomic History Marital status: Spouse name: Not on file Number of children: 3 Years of education: 8 Highest education level: Not on file 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 GENERAL: alert, healthy, and no distress A:Alcohol use disorder, severe, in sustained remission (HCC) (Primary) Ambulatory dysfunction S/P lumbar spinal fusion Chronic bilateral low back pain with right-sided sciatica There is nothing we can do for him, here. He needs to see ortho. Any questions/problems, please call. If anything changes, worsens, develops new sx, please call [facility]. Follow Up: Return if symptoms worsen or fail to improve. [place] Eugenia Parker PA-C documented in this encounter Nursing Notes * Fidelia Gustafson LPN - 01/21/2024 1:47 PM EST States he is on too many medications But the only one that works is Oxy His back is hurting- Needs another back operation Dr. Bauer wants x rays & MRIs "and whatever" "And something about my left hip. Its the biggest problem" - That is what he states Dr. Allen told him. documented in this encounter Plan of Treatment Upcoming Encounters Date Type Department Care Team (Late st Contact Info) Description 03/06/2024 9:30 AM EST Office Visit [facility]astroenterology, [facility] [address] Zohaib Mendez CRNP 132 [place] [address] 03/14/2024 11:30 AM EST Office Visit Orthopaedics Spine Surgery, [facility] 132 [facility] [place] [address] Dov Sauceda MD [address] [facility] [place] [phone] 03/31/2024 10:30 AM EST Office Visit Urology, [facility] 132 [facility] [place] [address] Clinton Garcia MD [address] [place] [address] 04/04/2024 10:00 AM EST Office Visit Family Medicine [address] [place] [phone] Najma Garcia MD [address] [place] [address] [place] [phone] Scheduled Procedures Name Priority Associated Diagnoses Date/Ti [...] remission (HCC) Anxiety state Anxiety state, unspecified Alcohol use disorder, severe, in sustained remission (HCC)- Primary Ambulatory dysfunction S/P lumbar spinal fusion Arthrodesis status Chronic bilateral low back pain with right-sided sciatica documented in this encounter Advance Directives Documents on File Type Date Recorded Patient Park Worker Expl anation Advance Directives and Living Will 05/14/2020 ADVANCE DIRECTIVE / LIVING WILL Power of Pit Hoist Operator 05/14/2020 POWER OF A TTORNEY Care Teams Mica Washer Gluer Relationship Specialty Start Date End Date Najma Garcia MD [address] [place] [address] [place] [id number] PCP - General Family Medicine 08/29/23 documented as of this encounter
--- OUTSIDE RECORDS SUMMARY | 2024-04-18 23:34 | External Medical Summary | Summary of Care ---
Author Name Unknown Organization [facility] Address [address] [place] [address] Phone [phone] Care Team Providers Care Senior Bi Developer Name Role Phone Najma Garcia MD Primary Care Provide r Reason for Visit * Reason Onset Date Comments Advice 12/26/2023 Encounter Details Date Type Department Care Team (Late st Contact Info) Description 12/26/2023 Telephone Gastroenterology, [facility] [address] [facility] [place] [address] Zohaib Mendez CRNP [address] [place] [address] Advice Allergies No known active allergiesdocumented as of this encounter (statuses as of 01/02/2024) Medications Nerve Stimulator (CLEVER CHOICE TENS UNIT) [...] shortness of breath 18 g 3 Active Fluticasone Propionate 50 MCG/ACT Nasal Suspension (Flonase)Indicatio ns:Acute maxillary sinusitis, recurrence not specified ADMINISTER 2 SPRAYS INTO EACH NOSTRIL DAILY. 48 g 3 3 Active Triamcinolone Acetonide 0.1 % External [...] a day. 60 Capsule 5 4 Active valACYclovir HCl 1 GM Oral Tablet (Valtrex) Take 1 Tablet by mouth in the morning. 90 Tablet 1 4 Active Folic Acid 1 MG Oral [...] THE MORNING 90 Tablet 1 4 Active documented as of this encounter (statuses as of 01/02/2024) Active Problems Problem Noted Date Diagnosed Date Abnormal cystoscopy 09/25/2023 Thrombocytopenia 01/24/2023 Recurrent major depressive disorder 01/24/2023 Portal hypertension 01/24/2023 Chronic pain syndrome 03/29/2022 Assessment & Plan (03/29/2022 12:46 PM EST): Currently not on any opiates and suhas recommend staying off of them moving forward. 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 Esophageal varices without bleeding 02/23/2022 [...] Grade 1-2 [] Grade 3-4 *A total Dmgwe-Oxaawbzu-Nznp score of 5 to 6 is considered [...] Hospital RNCM Call: Reviewed case w/ alla Keisha Demonstrating findings of increased edema in abdomen [...] as of this encounter (statuses as of 01/02/2024) Resolved Problems Problem Noted Date Diagnosed Date [...] he has can lift his arm up group home to the side or front of [...] he has can lift his arm up group home to the side or front of [...] with ascites 05/29/2013 12/15/2016 Overview (06/10/2013): admitted [facility], 3 liters taken off Alcoholic cirrhosis of liver 02/14/2013 12/15/2016 Alcohol abuse 01/09/2012 12/28/2014 Ascites 01/09/2012 09/18/2017 Epididymal cyst 01/09/2012 03/30/2017 Genital herpes 01/15/2018 Esophageal varices 2 Portal hypertensive gastropathy 04/15/2020 Alcoholic cirrhosis of liver without ascites 04/15/2020 Tympanic membrane perforation, right 07/30/2020 Overview (05/03/2017): digging in ear with toothpick documented as of this encounter (statuses as of 01/02/2024) Immunizations Name Administration Dates Next Due COVID-19 mRNA, LNP-s, No Pre serve, 2-Dose Series ([place] [employer]) 04/12/2021,09/29/2020,08/25/2020 COVID-19, MRNA-LNP, PF, 30 M CG/0.3 mL, 12 YRS AND ABOVE, IM ([employer]) 07/27/2023 HEP A - Hepatitis A (Adult [...] encounter Miscellaneous Notes * Telephone Encounter - Aurora Lee OSA - 01/02/2024 3:28 PM EST Zohaib, please advise ZOHAIB Moeller 01/02/2024 3:28 PM * Telephone Encounter - Jaycee Sweeney OSA - 12/26/2023 2:12 PM EST Patient would like a call back from zohaib when every she is available pt call back number is [phone] documented in this encounter Plan of Treatment Upcoming Encounters Date Type Department Care Team (Late st Contact Info) Description 03/06/2024 9:30 AM EST Office Visit Gastroenterology, [facility] 132 [facility] [place] [address] Zohaib Mendez CRNP 132 [facility] [place] [address] 03/31/2024 10:30 AM EST Office Visit Urology, [facility] 132 [facility] [place] [address] Clinton Garcia MD 27 [facility] [place] [address] 04/04/2024 10:00 AM EST Office Visit [address] [phone] Najma Garcia MD [address] [place], [place] [address] [address] Scheduled Procedures Name Priority Associated Diagnoses Date/Ti me COLONOSCOPY FLEXIBLE PROXIMA L DIAGNOSTIC Recall History of colonic polyps Health Maintenance Due Date Last Done Comments Zoster Vaccines (2 of 2) 02/27/2020 01/02/2020 COVID-19 Vaccine ( - 2023-2 5 season) 2023 07/27/2023, 04/12/2021, 09/29/2020, Additional history exists Influenza Vaccine (FLU shot) (#1) 2023 01/24/2023, 12/06/2021, 11/28/2021, Additional history exists Depression Monitoring 04/15/2024 04/16/2023 documented as of this encounter Medical Devices Not on filedocumented as of this encounter Advance Directives Documents on File Type Date Recorded Patient Steamfitter Apprentice Expl anation Advance Directives and Living Will 05/14/2020 ADVANCE DIRECTIVE / LIVING WILL Power of Slitter Operator 05/14/2020 POWER OF A TTORNEY Care Teams Senior Bi Developer Relationship Specialty Start Date End Date Najma Garcia MD [address] [place] [address] [place] [phone] PCP - General Family Medicine 08/29/23 documented as of this encounter
--- OUTSIDE RECORDS SUMMARY | 2024-04-18 23:34 | External Medical Summary | Summary of Care ---
Author Name Unknown Organization [facility] Address [address] [place] [address] Phone [phone] Care Team Providers Care Clinical Registered Nurse Name Role Phone Najma Garcia MD Primary Care Provide r Reason for Visit * Reason Onset Date Comments Referral 11/02/2023 Encounter Details Date Type Department Care Team (Late st Contact Info) Description 11/02/[address] [phone] Najma Garcia MD [address] [place] [address] [id number] [phone] Referral Allergies No known active allergiesdocumented as of this encounter (statuses as of 02/01/2024) Medications Nerve Stimulator (CLEVER CHOICE TENS UNIT) [...] Muscle spasms. 30 Tablet 1 4 Active documented as of this encounter (statuses as of 02/01/2024) Active Problems Problem Noted Date Diagnosed Date Abnormal cystoscopy 09/25/2023 Thrombocytopenia 01/24/2023 Recurrent major depressive disorder 01/24/2023 Portal hypertension 01/24/2023 Chronic pain syndrome 03/29/2022 Assessment & Plan (03/29/2022 12:46 PM EST): Currently not on any opiates and suhas recommend staying off of them moving forward. 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 Esophageal varices without bleeding [...] Grade 1-2 [] Grade 3-4 *A total Bfpjq-Hfdggwtt-Rmro score of 5 to 6 is considered [...] Assessment & Plan (04/06/2021 11:42 AM EST): [facility] RNCM Call: Reviewed case w/ alla [...] as of this encounter (statuses as of 02/01/2024) Resolved Problems Problem Noted Date Diagnosed Date [...] he has can lift his arm up long-term to the side or front of him [...] he has can lift his arm up long-term to the side or front of him [...] with ascites 05/29/2013 12/15/2016 Overview (06/10/2013): admitted [facility], 3 liters taken off Alcoholic cirrhosis of liver 02/14/2013 12/15/2016 Alcohol abuse 01/09/2012 12/28/2014 Ascites 01/09/2012 09/18/2017 Epididymal cyst 01/09/2012 03/30/2017 Genital herpes 01/15/2018 Esophageal varices 2 Portal hypertensive gastropathy 04/15/2020 Alcoholic cirrhosis of liver without ascites 04/15/2020 Tympanic membrane perforation, right 07/30/2020 Overview (05/03/2017): digging in ear with toothpick documented as of this encounter (statuses as of 02/01/2024) Immunizations Name Administration Dates Next Due COVID-19 mRNA, LNP-s, No Pre serve, 2-Dose Series ([employer]) 04/12/2021,09/29/2020,08/25/2020 COVID-19, MRNA-LNP, PF, 30 M CG/0.3 mL, 12 YRS AND ABOVE, IM ([facility] 07/27/2023 HEP A - Hepatitis [...] Telephone Encounter - Chela Haro RN - 11/05/2023 3:53 PM EDT Attempted to call pt to see why he needs to see Optometry QUIRINO, what is the problem? No answer and voice mail is full. If pt calls back please see what the issue is * Telephone Encounter - Sheng Aguirre OSA - 11/02/2023 1:50 PM EDT Has the patient been seen for this problem? (Y/N)?: y If No, an appt needs to be scheduled before a referral will be placed (exception: proceed with referral request if referral request is for a yearly routine appointment with speciality) Patient Name: Andrea Harvey Patient Primary care provider: Najma Garcia MD Does this need to be an insurance referral (Y/N)?: n If Yes, does the insurance referral need to be placed into the [employer] system? Name of preferred specialist: n/a Type of specialist: Optometry [facility] of specialist[facility] Phone #: n/a Specialist's Fax #: n/a Reason for visit: eye exam Date of visit: quirino documented in this encounter Plan of Treatment Upcoming Encounters Date Type Department Care Team (Late st Contact Info) Description 03/06/2024 9:30 AM EST Office Visit Gastroenterology, [facility] [address] [facility] [place] [address] Zohaib Mendez CRNP [address] [place] [address] 03/11/2024 10:15 AM EST Telemedicine Urology Radha Sindi Walker [address] [place] [address] Clinton Garcia MD [address] [place] [address] 7, Telemed [facility] Urology Ex Rm [address] [place] [address] 03/14/2024 11:30 AM EST Office Visit Orthopaedics Spine Surgery, [facility] [address] [facility] [place] [address] Dov Sauceda MD [address] [place] [address] 04/04/2024 10:00 AM EST Office Visit [address] [phone] Najma Garcia MD [address] [place] [address] [place] [address] Scheduled Procedures Name Priority Associated Diagnoses Date/Ti [...] Documents on File Type Date Recorded Patient Chair Installer Expl anation Advance Directives and Living Will 05/14/2020 ADVANCE DIRECTIVE / LIVING WILL Power of Rotary Dryer Operator 05/14/2020 POWER OF A TTORNEY Care Teams Clinical Registered Nurse Relationship Specialty Start Date End Date Najma Garcia MD [address] [place] [address] [place] [phone] PCP - General Family Medicine 08/29/23 documented as of this encounter
--- OUTSIDE RECORDS SUMMARY | 2024-04-18 23:34 | External Medical Summary | Summary of Care ---
Author Name Unknown Organization [facility] Address [address] [place] [address] Phone [phone] Care Team Providers Care Workforce Investment Act Career Manager Name Role Phone Najma Garcia MD Primary Care Provide r Reason for Visit * Reason Comments Acute Encounter Details Date Type Department Care Team (Late st Contact Info) Description 01/01/2024 2:20 PM EST Office Visit Family Medicine [address] [phone] Billie Ramirez [address] [place] [address] Chronic pain syndrome* Allergies No known active allergiesdocumented as of this encounter (statuses as of 01/01/2024) Medications Nerve Stimulator (CLEVER CHOICE TENS UNIT) [...] as of this encounter (statuses as of 01/01/2024) Active Problems Problem Noted Date Diagnosed Date Abnormal cystoscopy 09/25/2023 Thrombocytopenia 01/24/2023 Recurrent major depressive disorder 01/24/2023 Portal hypertension 01/24/2023 Chronic pain syndrome 03/29/2022 Assessment & Plan (03/29/2022 12:46 PM EST): Currently not on any opiates and suhas recommend staying off of them moving forward. Follows with spine but would avoid further group home opiates. Esophageal varices without bleeding 02/23/2022 [...] Grade 1-2 [] Grade 3-4 *A total Vimtg-Xgyugzsn-Iucq score of 5 to 6 is considered [...] Assessment & Plan (04/06/2021 11:42 AM EST): [facility] RNCM Call: Reviewed case w/ alla [...] as of this encounter (statuses as of 01/01/2024) Resolved Problems Problem Noted Date Diagnosed Date [...] with ascites 05/29/2013 12/15/2016 Overview (06/10/2013): admitted [facility], 3 liters taken off Alcoholic cirrhosis of liver 02/14/2013 12/15/2016 Alcohol abuse 01/09/2012 12/28/2014 Ascites 01/09/2012 09/18/2017 Epididymal cyst 01/09/2012 03/30/2017 Genital herpes 01/15/2018 Esophageal varices 2 Portal hypertensive gastropathy 04/15/2020 Alcoholic cirrhosis of liver without ascites 04/15/2020 Tympanic membrane perforation, right 07/30/2020 Overview (05/03/2017): digging in ear with toothpick documented as of this encounter (statuses as of 01/01/2024) Immunizations Name Administration Dates Next Due COVID-19 mRNA, LNP-s, No Pre serve, 2-Dose Series ([employer]) 04/12/2021,09/29/2020,08/25/2020 COVID-19, MRNA-LNP, PF, 30 M CG/0.3 mL, 12 YRS AND ABOVE, IM ([facility]) 07/27/2023 HEP A - Hepatitis A [...] 02/06/1964 - 02/05/1979 Smokeless Tobacco: Current Snuff Tobacco Cessation:Ready to Q uit: Not Asked; Counseling Given: Not Answered Comments:1 can every 5 days Alcohol Use [...] Sign Reading Time Taken Comments Blood Pressure 128/70 01/01/2024 2:30 PM EST Pulse 82 01/01/2024 2:30 PM EST Temperature 36.2 C (97.1 F) 01/01/2024 2:30 PM ES T Respiratory Rate 16 01/01/2024 2:30 PM EST Oxygen Saturation 97% 01/01/2024 2:30 PM EST Inhaled Oxygen Concentration - - Weight - - Height - - Body Mass Index - - documented in this encounter Functional Status * Does this person have serious difficulty walking or climbing stairs? Answer Date of Assessment Author Yes 01/15/2017 12:07 PM EST documented as of this encounter Nursing Notes * Kinga Hinton LPN - 01/01/2024 2:24 PM EST C/o bad pain. C/o hard time walking. Was given prednisone. Wasn't sure how to take them. Asking if he should take them with the oxycodone. Started prednisone last night, but says he isn't sure how totake it. Was to take 200 mg Gabapentin twice a day. He didn't give me a clear answer as to wether he is taking it or not. documented in this encounter Plan of Treatment Upcoming Encounters Date Type Department Care Team (Late st Contact Info) Description 03/06/2024 9:30 AM EST Office Visit Gastroenterology, [facility] 132 [facility] [place] [address] Zohaib Mendez CRNP 132 [facility] [place] [address] 03/31/2024 10:30 AM EST Office Visit Urology, [facility] 132 [facility] [place] [address] Clinton Garcia MD 27 [facility] [place] [address] 04/04/2024 10:00 AM EST Office Visit Family Medicine [address] [phone] Najma Garcia MD [address] [place] [address] [place] [address] Scheduled Procedures Name Priority Associated Diagnoses Date/Ti [...] (HCC) Anxiety state Anxiety state, unspecified Chronic pain syndrome- Primary documented in this encounter Advance Directives Documents on File Type Date Recorded Patient Applications Sales Representative Expl anation Advance Directives and Living Will 05/14/2020 ADVANCE DIRECTIVE / LIVING WILL Power of Ethanol Operator 05/14/2020 POWER OF A TTORNEY Care Teams Workforce Investment Act Career Manager Relationship Specialty Start Date End Date Najma Garcia MD [address] [place] [address] [place] [phone] PCP - General Family Medicine 08/29/23 documented as of this encounter
--- OUTSIDE RECORDS SUMMARY | 2024-04-18 23:34 | External Medical Summary | Summary of Care ---
Author Name Unknown Organization [facility] Address [address] [place] [address] Phone [phone] Care Team Providers Care Magazine Feeder Name Role Phone Najma Garcia MD Primary Care Provide r Reason for Visit * Reason Onset Date Comments Advice 12/26/2023 Encounter Details Date Type Department Care Team (Late st Contact Info) Description 12/26/2023 Telephone Gastroenterology, [facility] [address] [place] [address] Zohaib Mendez CRNP [address] [facility] [place] [address] Advice Allergies No known active allergiesdocumented as of this encounter (statuses as of 01/07/2024) Medications Nerve Stimulator (CLEVER CHOICE TENS UNIT) [...] MORNING 90 Tablet 1 11/28/19 24 Active Fluticasone Propionate 50 MCG/ACT Nasal Suspension (Flonase)Indicati ons:Acute maxillary sinusitis, recurrence not specified ADMINISTER 2 SPRAYS INTO EACH NOSTRIL DAILY. 48 g 3 11/16/19 23 2023 Discontinued valACYclovir HCl 1 GM Oral Tablet (Valtrex) Take 1 Tablet by mouth in the morning. 90 Tablet 1 03/29/19 24 2023 Discontinued documented as of this encounter (statuses as of 01/07/2024) Active Problems Problem Noted Date Diagnosed Date [...] Grade 1-2 [] Grade 3-4 *A total Bdskl-Parziids-Zzae score of 5 to 6 is considered [...] Assessment & Plan (04/06/2021 11:42 AM EST): [facility] RNCM Call: Reviewed case w/ alla Valdes [...] as of this encounter (statuses as of 01/07/2024) Resolved Problems Problem Noted Date Diagnosed Date [...] with ascites 05/29/2013 12/15/2016 Overview (06/10/2013): admitted [facility], 3 liters taken off Alcoholic cirrhosis of liver 02/14/2013 12/15/2016 Alcohol abuse 01/09/2012 12/28/2014 Ascites 01/09/2012 09/18/2017 Epididymal cyst 01/09/2012 03/30/2017 Genital herpes 01/15/2018 Esophageal varices 2 Portal hypertensive gastropathy 04/15/2020 Alcoholic cirrhosis of liver without ascites 04/15/2020 Tympanic membrane perforation, right 07/30/2020 Overview (05/03/2017): digging in ear with toothpick documented as of this encounter (statuses as of 01/07/2024) Immunizations Name Administration Dates Next Due COVID-19 mRNA, LNP-s, No Pre serve, 2-Dose Series ([employer]) 04/12/2021,09/29/2020,08/25/2020 COVID-19, MRNA-LNP, PF, 30 M CG/0.3 [...] Telephone Encounter - Aurora Lee OSA - 01/07/2024 9:08 AM EST Unable to lm, vm full ZOHAIB Moeller 01/07/2024 9:08 AM * Telephone Encounter - Aurora Lee OSA - 01/07/2024 9:08 AM EST Spoke w pt. He'd like an appt. Please call him to arrange, can be first available. If wants sooner than first available, I could add him on SundayJan 13 at 11AM. Zohaib * Telephone Encounter - Aurora Lee OSA - 01/02/2024 3:28 PM EST Zohaib, please advise ZOHAIB Moeller 01/02/2024 3:28 PM * Telephone Encounter - Jaycee Sweeney OSA - 12/26/2023 2:12 PM EST Patient would like a call back from zohaib when every she is available pt call back number is [phone] documented in this encounter Plan of Treatment Upcoming Encounters Date Type Department Care Team (Late st Contact Info) Description 03/06/2024 9:30 AM EST Office Visit Gastroenterology, [facility] 132 [facility] [place] [address] Zohaib Mendez CRNP 132 [facility] [place] [address] 03/31/2024 10:30 AM EST Office Visit Urology, [facility] 132 [facility] [place] [address] Clinton Garcia MD [address] [place] [address] 04/04/2024 10:00 AM EST Office Visit Family Medicine [address] [place] [phone] Najma Garcia MD [address] [place] [address] [place] [address] Scheduled Procedures Name Priority Associated Diagnoses Date/Ti [...] Documents on File Type Date Recorded Patient Senior Data Modeler Expl anation Advance Directives and Living Will 05/14/2020 ADVANCE DIRECTIVE / LIVING WILL Power of Bullet Maker 05/14/2020 POWER OF A TTORNEY Care Teams Magazine Feeder Relationship Specialty Start Date End Date Najma Garcia MD [address] [place] [address] [place] [phone] PCP - General Family Medicine 08/29/23 documented as of this encounter
--- OUTSIDE RECORDS SUMMARY | 2024-04-18 23:35 | External Medical Summary | Summary of Care ---
Author Name Unknown Organization [facility] Address [address] [place] [address] Phone [phone] Care Team Providers Care Field Nurse Name Role Phone Najma Garcia MD Primary Care Provide r Reason for Visit * Reason Onset Date Comments Advice 09/24/2023 Encounter Details Date Type Department Care Team (Late st Contact Info) Description 09/24/[address] [phone] Najma Garcia MD [address] [place] [address] [place] [address] Advice Allergies No known active allergiesdocumented as of this encounter (statuses as of 12/24/2023) Medications Nerve Stimulator (CLEVER CHOICE TENS UNIT) DEVIIndications:C hronic midline low back pain without sciatica Use as directed. Use to lower back area in 15 minute intervals up to three times a day 1 Each 020 Active Sildenafil Citrate 20 MG Oral Tablet (REVATIO)Indicati ons:ED (erectile dysfunction) of organic origin Take 2 Tabs by mouth once a week. Take one hour prior to sexual activity 8 Tab 11 020 Active Potassium Chloride 20 MEQ Oral PacketIndications :Hypokalemia MIX 1 PACKET IN WATER AND TAKE ORALLY DAILY 90 Packet 3 023 Active Tums E-X 750 750 MG Oral Tablet Chewable (calcium CARBonate) Take 1 Tablet by mouth 3 times a day as needed for Heartburn. Active Spironolactone 100 MG Oral Tablet (Aldactone) Take 1 Tablet by mouth in the morning. 90 Tablet 3 023 Active Albuterol Sulfate HFA 108 (90 Base) MCG/ACT Inhalation Aerosol Solution inhale 2 puffs by mouth every 4 hours as needed for shortness of breath 18 g 023 Active Fluticasone Propionate 50 MCG/ACT Nasal Suspension (Flonase)Indicati ons:Acute maxillary sinusitis, recurrence not specified ADMINISTER 2 SPRAYS INTO EACH NOSTRIL DAILY. 48 g 3 023 Active Triamcinolone Acetonide 0.1 % External Cream (Aristocort)Indic ations:Dermatitis apply to affected area twice daily 45 g 023 Active Lidocaine 0.5 % External GelIndications:Pa in of right heel Apply topically to affected area 2 times a day. Apply to right heel twice a day as needed for pain 170 g 023 Active Torsemide 20 MG Oral Tablet (Demadex) TAKE ONE TABLET BY MOUTH TWICE DAILY. (IN THE MORNING AND AT 2 PM) TO DECREASE NIGHTTIME URINATION 60 Tablet 5 024 Active Thiamine HCl 100 MG Oral Tablet (vitamin B-1)Indications:A lcoholic cirrhosis of liver without ascites (HCC) TAKE ONE TABLET BY MOUTH EVERY DAY 100 Tablet 1 024 Active Gabapentin 100 MG Oral Capsule (Neurontin)Indica tions:Peripheral polyneuropathy,Ch ronic bilateral low back pain without sciatica Take 1 Capsule by mouth 2 times a day. 60 Capsule 5 024 Active valACYclovir HCl 1 GM Oral Tablet (Valtrex) Take 1 Tablet by mouth in the morning. 90 Tablet 1 024 Active Folic Acid 1 MG Oral Tablet Take 1 Tablet by mouth in the morning. 90 Tablet 3 024 Active Magnesium 400 MG Oral Tablet Take 400 mg by mouth daily. 100 Tablet 3 024 Active Diclofenac Sodium 3 % External GelIndications:Ch ronic bilateral low back pain with right-sided sciatica,Sacroili itis, not elsewhere classified (HCC),Chronic pain syndrome Apply to back twice daily 100 g 1 024 Active Ondansetron 4 MG Oral Tablet Disintegrating (Zofran) DISSOLVE ONE TABLET IN MOUTH EVERY SIX HOURS NEEDED 30 Tablet 024 Active Kristalose 20 GM Oral Packet (Lactulose) take 1 packet by mouth in the morning and 1 packet at noon and 1 packet before bedtime 100 Packet 3 024 Active Xifaxan 550 MG Oral Tablet (rifAXIMin) TAKE ONE TABLET BY MOUTH IN THE MORNING AND BEFORE BEDTIME 180 Tablet 3 024 Active DULoxetine HCl 60 MG Oral Capsule Delayed Release Particles (Cymbalta)Indicat ions:Current episode of major depressive disorder without prior episode, unspecified depression episode severity TAKE ONE CAPSULE BY MOUTH IN THE MORNING do not cut, crush or chew 30 Capsule 5 023 2023 Discontinued Baclofen 10 MG Oral Tablet (Lioresal) Take 1 Tablet by mouth 3 times a day as needed for Muscle spasms. 30 Tablet 023 2023 Discontinued(R efill) Pantoprazole Sodium 40 MG Oral Tablet Delayed Release (Protonix)Indicat ions:Alcoholic cirrhosis of liver without ascites (HCC),Protein-batsheva orie malnutrition (HCC),Secondary esophageal varices without bleeding (HCC),Alcohol use disorder, severe, in sustained remission (HCC),Esophageal varices (HCC) Take 1 Tablet by mouth in the morning. 90 Tablet 1 024 2023 Discontinued Baclofen 10 MG Oral Tablet (Lioresal) Take 1 Tablet by mouth 3 times a day as needed for Muscle spasms. 30 Tablet 024 2023 Discontinued documented as of this encounter (statuses as of 12/24/2023) Active Problems Problem Noted Date Diagnosed Date [...] Grade 1-2 [] Grade 3-4 *A total Wpqcu-Szkfuxbt-Ndyd score of 5 to 6 is considered [...] Assessment & Plan (04/06/2021 11:42 AM EST): [facility] alla Valdes Demonstrating [...] as of this encounter (statuses as of 12/24/2023) Resolved Problems Problem Noted Date Diagnosed Date [...] ascites 05/29/2013 12/15/2016 Overview (06/10/2013): admitted [facility], 3 liters taken off Alcoholic cirrhosis of liver 02/14/2013 12/15/2016 Alcohol abuse 01/09/2012 12/28/2014 Ascites 01/09/2012 09/18/2017 Epididymal cyst 01/09/2012 03/30/2017 Genital herpes 01/15/2018 Esophageal varices 2 Portal hypertensive gastropathy 04/15/2020 Alcoholic cirrhosis of liver without ascites 04/15/2020 Tympanic membrane perforation, right 07/30/2020 Overview (05/03/2017): digging in ear with toothpick documented as of this encounter (statuses as of 12/24/2023) Immunizations Name Administration Dates Next Due COVID-19 mRNA, LNP-s, No Pre serve, 2-Dose Series ([employer]) 04/12/2021,09/29/2020,08/25/2020 COVID-19, MRNA-LNP, PF, 30 M CG/0.3 [...] No 04/19/2023 Does the household have a [facility] source of income? (Household - for [...] Telephone Encounter - Najma Garcia MD - 09/25/2023 5:31 PM EDT Has not been filled for almost one year and only one month was sent at that time. Sent refill. Doseis fairly high and would not increase further * Telephone Encounter - Fidelia Jones OSA - 09/24/2023 4:42 PM EDT Pt called stating that he gets a prescription from Dr. Garcia for Baclofen. Pt states that it is not helping and he would like the provider to send in an increase. Pt takes it for pain in his lower back and legs. Pt is also using a Tens unit. Please advise. documented in this encounter Plan of Treatment Upcoming Encounters Date Type Department Care Team (Late st Contact Info) Description 03/31/2024 10:30 AM EST Office Visit Urology, [facility] 132 [facility] [place] [address] Clinton Garcia MD 27 [facility] [place] [address] 04/04/2024 10:00 AM EST Office Visit Family Medicine [address] [place] [phone] Najma Garcia MD [address] [place] [address] [place] [address] Scheduled Procedures Name Priority Associated Diagnoses Date/Ti [...] Documents on File Type Date Recorded Patient Production Estimator Expl anation Advance Directives and Living Will 05/14/2020 ADVANCE DIRECTIVE / LIVING WILL Power of Manager Administrative Services 05/14/2020 POWER OF A TTORNEY Care Teams Field Nurse Relationship Specialty Start Date End Date Najma Garcia MD [address] [place] [address] [place] [phone] PCP - General Family Medicine 08/29/23 documented as of this encounter
--- OUTSIDE RECORDS SUMMARY | 2024-04-18 23:35 | External Medical Summary | Summary of Care ---
Author Name Unknown Organization [facility] Address [address] [place] [address] Phone [phone] Care Team Providers Care Home Care Aide Name Role Phone Najma Garcia MD Primary Care Provide r Reason for Visit * Reason Onset Date Comments Order Request 12/24/2023 Order X-ray Encounter Details Date Type Department Care Team (Late st Contact Info) Description 12/24/[address] [phone] Najma Garcia MD [address] [place] [address] MD [id number] Order Request (Order X-ray) Allergies No known active allergiesdocumented as of this encounter (statuses as of 12/25/2023) Medications Nerve Stimulator (CLEVER CHOICE TENS UNIT) [...] as of this encounter (statuses as of 12/25/2023) Active Problems Problem Noted Date Diagnosed Date Abnormal cystoscopy 09/25/2023 Thrombocytopenia 01/24/2023 Recurrent major depressive disorder 01/24/2023 Portal hypertension 01/24/2023 Chronic pain syndrome 03/29/2022 Assessment & Plan (03/29/2022 12:46 PM EST): Currently not on any opiates and suhas recommend staying off of them moving forward. Follows with spine but would avoid further extermination supervisor opiates. Esophageal varices without bleeding 02/23/2022 Protein-calorie [...] Grade 1-2 [] Grade 3-4 *A total Twehg-Zromzuef-Iiwb score of 5 to 6 is considered [...] Assessment & Plan (04/06/2021 11:42 AM EST): [facility] RNCM Call: Reviewed case w/ [...] as of this encounter (statuses as of 12/25/2023) Resolved Problems Problem Noted Date Diagnosed Date [...] he has can lift his arm up custodial to the side or front of him [...] he has can lift his arm up custodial to the side or front of him [...] with ascites 05/29/2013 12/15/2016 Overview (06/10/2013): admitted [facility], 3 liters taken off Alcoholic cirrhosis of liver 02/14/2013 12/15/2016 Alcohol abuse 01/09/2012 12/28/2014 Ascites 01/09/2012 09/18/2017 Epididymal cyst 01/09/2012 03/30/2017 Genital herpes 01/15/2018 Esophageal varices 2 Portal hypertensive gastropathy 04/15/2020 Alcoholic cirrhosis of liver without ascites 04/15/2020 Tympanic membrane perforation, right 07/30/2020 Overview (05/03/2017): digging in ear with toothpick documented as of this encounter (statuses as of 12/25/2023) Immunizations Name Administration Dates Next Due COVID-19 mRNA, LNP-s, No Pre serve, 2-Dose Series (Anke) 04/12/2021,09/29/2020,08/25/2020 COVID-19, MRNA-LNP, PF, 30 M CG/0.3 mL, 12 YRS AND ABOVE, IM (mytrax-Comirnaty) 07/27/2023 HEP A - Hepatitis A (Adult [...] encounter Miscellaneous Notes * Telephone Encounter - Brandi Frost CMA - 12/25/2023 10:33 AM EST Will discuss at visit scheduled for 12/26 with Billie * Telephone Encounter - Abbi Hernandez OSA - 12/24/2023 10:57 AM EST An order was requested for this patient. Name of Requesting Provider: Dr Garcia Order Requested: x-ray and upper and lower back,and across Diagnosis/Reason for Request: pain If order request is for Mammogram: Is the patient having any breast symptoms? N/A Is there a chance of ? N/A Has the patient had any breast problems in the past? NA What location AND department does the patient wish to have their order completed at? Fax Number, if applicable: If the caller is not a current patient, please advise the patient to call their current PCP to havethe order's prior to being seen in our office. The patient was informed that our providers would not order anything (medication, labs, etc.) prior to being seen. documented in this encounter Plan of Treatment Upcoming Encounters Date Type Department Care Team (Late st Contact Info) Description 12/27/2023 2:00 PM EST Office Visit Family Medicine [address] [phone] Billie Ramirez CRNP [address] [place] [address] [place] [address] 03/31/2024 10:30 AM EST Office Visit Urology, [facility] [address] 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
--- OUTSIDE RECORDS SUMMARY | 2024-04-18 23:35 | External Medical Summary | Summary of Care ---
Author Name Unknown Organization [facility] Address [address] [place] [address] Phone [phone] Care Team Providers Care Collision Technician Name Role Phone Najma Garcia MD Primary Care Provide r Reason for Visit * Reason Onset Date Comments FYI 12/25/2023 appt Encounter Details Date Type Department Care Team (Late st Contact Info) Description 12/25/[address] [phone] Najma Garcia MD [address] [place], [place] [address] [address] FYI (appt) Allergies No known active allergiesdocumented as of [...] Grade 1-2 [] Grade 3-4 *A total Rsvtj-Dpldvjde-Mcam score of 5 to 6 is considered [...] Assessment & Plan (04/06/2021 11:42 AM EST): [facility] RNCM Call: Reviewed case w/ alla Hale [...] Overview (06/10/2013): admitted [facility], 3 liters taken off Alcoholic cirrhosis of [...] mRNA, LNP-s, No Pre serve, 2-Dose Series (Workbooks) 04/12/2021,09/29/2020,08/25/2020 COVID-19, MRNA-LNP, PF, 30 M CG/0.3 mL, 12 YRS AND ABOVE, IM (Go Vocab-Comirnat) 07/27/2023 HEP A - Hepatitis A (Adult [...] Encounter - Brandi Frost CMA - 12/25/2023 10:34 AM EST noted * Telephone Encounter - Corinne Barron OSA - 12/25/2023 10:09 AM EST Patient missed his first acute appointment yesterday at [facility]. He declined an appointment today or tomorrow due to no transportation. He scheduled an appointment at [facility] on 12/26 with BECKY Ramirez for pain in groin and back, trouble walking documented in this encounter Plan of Treatment Upcoming Encounters Date Type Department Care Team (Late st Contact Info) Description 12/27/2023 2:00 PM EST Office Visit [address] [phone] Billie Ramirez CRNP [address] [place] [address] [place] [address] 03/31/2024 10:30 AM EST Office Visit Urology, [facility] [address] [facility] [place] [address] Clinton Garcia MD [address] [place] [address] 04/04/2024 10:00 AM EST Office Visit [address] [place] [phone] Najma Garcia MD [address] [place] [address] [place] [address] Scheduled Procedures Name Priority Associated Diagnoses Date/Ti [...] Documents on File Type Date Recorded Patient Line Repairer Tower Expl anation Advance Directives and Living Will 05/14/2020 ADVANCE DIRECTIVE / LIVING WILL Power of Blanking Machine Operator 05/14/2020 POWER OF A TTORNEY Care Teams Collision Technician Relationship Specialty Start Date End Date Najma Garcia MD [address] [place] [address] [place] [phone] PCP - General Family Medicine 08/29/23 documented as of this encounter
--- OUTSIDE RECORDS SUMMARY | 2024-04-18 23:35 | External Medical Summary | Summary of Care ---
Author Name Unknown Organization [facility] Address [address] [place] [address] Phone [phone] Care Team Providers Care Electronic Equipment Installer Name Role Phone Najma Garcia MD Primary Care Provide r Encounter Details Date Type Department Care Team (Late st Contact Info) Description 12/28/2023 Population Health External Data Unspecified Department Allergies No known active allergiesdocumented as of this encounter (statuses as of 12/28/2023) Medications Nerve Stimulator (CLEVER CHOICE TENS UNIT) [...] as of this encounter (statuses as of 12/28/2023) Active Problems Problem Noted Date Diagnosed Date Abnormal cystoscopy 09/25/2023 Thrombocytopenia 01/24/2023 Recurrent major depressive disorder 01/24/2023 Portal hypertension 01/24/2023 Chronic pain syndrome 03/29/2022 Assessment & Plan (03/29/2022 12:46 PM EST): Currently not on any opiates and suhas recommend staying off of them moving forward. Follows with spine but would avoid further intermediate opiates. Esophageal varices without bleeding 02/23/2022 Protein-calorie [...] Grade 1-2 [] Grade 3-4 *A total Gyhmx-Aryvnayh-Eclm score of 5 to 6 is considered [...] Assessment & Plan (04/06/2021 11:42 AM EST): [facility] RNCM Call: Reviewed case w/ [...] as of this encounter (statuses as of 12/28/2023) Resolved Problems Problem Noted Date Diagnosed Date [...] with ascites 05/29/2013 12/15/2016 Overview (06/10/2013): admitted [facility], [...] as of this encounter (statuses as of 12/28/2023) Immunizations Name Administration Dates Next Due COVID-19 mRNA, LNP-s, No Pre serve, 2-Dose Series (Apsmart) 04/12/2021,09/29/2020,08/25/2020 COVID-19, MRNA-LNP, PF, 30 M CG/0.3 mL, 12 YRS AND ABOVE, IM [facility] 07/27/2023 HEP A - Hepatitis A [...] 2:20 PM EST Office Visit Family Medicine [address] [place] [phone] Billie Ramirez [address] [place] [address] 03/06/2024 9:30 AM EST Office Visit Gastroenterology, [facility] [address] [place] [address] Zohaib Mendez CRNP [address] [place] [address] 03/31/2024 10:30 AM EST Office Visit Urology, [facility] [address] [address] Clinton Garcia MD [address] [place] [address] 04/04/2024 10:00 AM EST Office Visit Family Medicine [address] [place] [phone] Najma Garcia MD [address] [place] [address] [place] [address] Scheduled Procedures Name Priority Associated Diagnoses Date/Ti [...] Documents on File Type Date Recorded Patient Clerical Administrative Assistant Expl anation Advance Directives and Living Will 05/14/2020 ADVANCE DIRECTIVE / LIVING WILL Power of Project Developer 05/14/2020 POWER OF A TTORNEY Care Teams Electronic Equipment Installer Relationship Specialty Start Date End Date Najma Garcia MD [address] [place] [address] [place] [phone] PCP - General Family Medicine 08/29/23 documented as of this encounter
--- NOTE | 2024-04-19 00:13 | XRay Report ---
Exam(s): XR HIP + PELVIS, 1 view EXAM: XR Left Hip With Pelvis When Performed, 2 or 3 Views CLINICAL HISTORY: Reason for exam: L hip pain s/p fall. TECHNIQUE: Two or three views of the left hip with pelvis when performed. COMPARISON: November 03, 2021. FINDINGS: Bones/joints: Previous total right hip replacement. 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 There is been interval degenerative change and superior subluxation of the left hip. No acute fracture or dislocation. Soft tissues: Unremarkable. IMPRESSION: No acute findings. Deformity of the left femoral head which may be due to developmental hip dysplasia. There is been progressive flattening, degenerative arthropathy and subluxation since the prior study. Electronically signed by: Vishnu Nunez MD 04/19/24 00:12 AM
--- NOTE | 2024-04-19 00:15 | XRay Report ---
Exam(s): XR CXR 1 VIEW EXAM: XR Chest, 1 View CLINICAL HISTORY: Reason for exam: weakness. TECHNIQUE: Frontal view of the chest. COMPARISON: Chest ON the 2023. FINDINGS: Lungs: Unremarkable. No acute infiltration, atelectasis or mass. Pleural space: Unremarkable. No pneumothorax or pleural fluid. Heart: Unremarkable. No cardiomegaly. Mediastinum: Unremarkable. Normal mediastinal contour. Bones/joints: No acute findings. IMPRESSION: No acute findings in the chest. Electronically signed by: Vishnu Nunez MD 04/19/24 00:14 AM
[2024-04-19] MEDS: HYDROmorphone INJ 0.5 MG/0.5 ML SYR IV STA (00:33)
[2024-04-19] MEDS: LABETALOL HCL IV 5 MG/ML 20ML IV STA (01:27)
[2024-04-19] MEDS: POTASSIUM CHLORIDE CRTAB 20 MEQ TABCR PO STA (01:29)
--- NOTE | 2024-04-19 01:31 | History & Physical Report ---
Date of Service April 19, 2024 Assessment & Plan (1) Ambulatory dysfunction: Plan: 64-year-old male with past medical history significant for alcoholic cirrhosis of liver without ascites, protein calorie malnutrition, GERD, portal hypertension, esophageal varices without bleeding, aortic atherosclerosis, chronic bilateral low back pain, peripheral polyneuropathy, chronic pain syndrome, pancytopenia, alcohol use disorder in remission, cocaine use disorder in remission, gynecomastia, ambulatory dysfunction, status post right hip replacement, anxiety and depression presents with severe back pain and bilateral hip pain. Patient has chronic back pain and hip pain but seems getting worse. Last night he could not sleep because of pain. Yesterday while walking he slipped on a wood piece and fell and has some injury to the right arm. Did not hit his head. No loss of consciousness. And today could not ambulate much because of pain. He has a walker and scooter at home. He also uses cane. He has a friend who helps him. Denies any fever. Says he is moving bowels few times a day and so not using lactulose. Micturating okay. Appetite is okay. No difficulty swallowing. Denies abdominal pain. No nausea. No chest pain or shortness of breath. Has a mild headache. Vision is not that great. Has chronic cough. No runny nose or sore throat. Hemodynamics are okay. Ambulatory dysfunction Severe back pain and bilateral hip pains Patient states recently had MRI of the back. Pain control Orthospine consult Orthopedics consult PT OT when stable Alcoholic cirrhosis of liver without ascites Continue home spironolactone and torsemide and potassium supplement Continue lactulose and Xifaxan, Ammonia level 73 Will follow repeat labs Possible UTI Will follow cultures Empiric Rocephin GERD On Protonix Pancytopenia From liver cirrhosis WBC 4, hemoglobin 12.4, platelets 89 We will follow labs Depression and anxiety Duloxetine DVT prophylaxis SCDs for now Disposition Medical floor Full code History of Present Illness Chief Complaint: Back pain, bilateral hip pain and ambulatory dysfunction Primary Care Provider: Najma Garcia MD 64-year-old male with past medical history significant for alcoholic cirrhosis of liver without ascites, protein calorie malnutrition, GERD, portal hypertension, esophageal varices without bleeding, aortic atherosclerosis, chronic bilateral low back pain, peripheral polyneuropathy, chronic pain syndrome, pancytopenia, alcohol use disorder in remission, cocaine use disorder in remission, gynecomastia, ambulatory dysfunction, status post right hip replacement, anxiety and depression presents with severe back pain and bilateral hip pain. Patient has chronic back pain and hip pain but seems getting worse. Last night he could not sleep because of pain. Yesterday while walking he slipped on a wood piece and fell and has some injury to the right arm. Did not hit his head. No loss of consciousness. And today could not ambulate much because of pain. He has a walker and scooter at home. He also uses cane. He has a friend who helps him. Denies any fever. Says he is moving bowels few times a day and so not using lactulose. Micturating okay. Appetite is okay. No difficulty swallowing. Denies abdominal pain. No nausea. No chest pain or shortness of breath. Has a mild headache. Vision is not that great. Has chronic cough. No runny nose or sore throat. Hemodynamics are okay. Past medical history. As mentioned above. Past surgical history. Abdominal paracentesis. Colonoscopy. Dental surgery. EGD. Sacroiliac joint injection. Right total hip replacement. Social history. . Quit smoking 1979. Smoked 0.5 pack a day for 15 years. Says currently chews tobacco and is trying to quit it. Last alcohol use in 2013. Stopped crack and marijuana prior to 1979. Family history. Sister has alcoholism. Mother had lymphoma. Daughter has cirrhosis. Father had diabetes. Allergies Allergy/AdvReac Type Severity Reaction Status Date / Time No Known Allergies Allergy Verified 12/09/23 15:06 Home Medications Medication Instructions Recorded Confirmed Type albuterol sulfate 90 mcg/actuation 2 puff inhalation Q4H PRN 04/19/24 04/19/24 History aerosol inhaler Shortness Of Breath Or Wheezing baclofen 10 mg tablet 10 mg PO TID PRN back spasms 04/19/24 04/19/24 History calcium carbonate (Tums E-X) 300 mg PO TID PRN heart burn 04/19/24 04/19/24 History duloxetine 60 mg capsule,delayed 60 mg PO DAILY 04/19/24 04/19/24 History release folic acid 1 mg tablet 1 mg PO DAILY 04/19/24 04/19/24 History gabapentin 100 mg capsule 100 mg PO BID 04/19/24 04/19/24 History lactulose 20 gram oral packet 20 g PO TID 04/19/24 04/19/24 History (Kristalose) pantoprazole 40 mg tablet,delayed 40 mg PO DAILY 04/19/24 04/19/24 History release (Protonix) potassium chloride 20 mEq oral 20 meq PO DAILY 04/19/24 04/19/24 History packet rifaximin 550 mg tablet (Xifaxan) 550 mg PO TID 04/19/24 04/19/24 History spironolactone 100 mg tablet 100 mg PO DAILY 04/19/24 04/19/24 History thiamine HCl (vitamin B1) 100 mg 100 mg PO DAILY 04/19/24 04/19/24 History tablet torsemide 20 mg tablet 20 mg PO BID 04/19/24 04/19/24 History valacyclovir 1 gram tablet 1,000 mg PO DAILY 04/19/24 04/19/24 History Past Med/Surg History Problem List (Updated 04/19/24 @ 08:01 by Gene Olmos MD) Degenerative joint disease of left hip Hypertension (Acute) Skin tear of right upper extremity (Acute) Elevated liver enzymes (Acute) Anemia (Acute) Left hip pain (Acute) Lower back pain (Acute) Fall (Acute) Fall (Acute) Encounter for pre-operative examination History of colon polyps [place] Ambulatory dysfunction Pancytopenia Acute hepatic encephalopathy (Acute) COVID-19 (Acute) SARS-CoV-2 positive Protein calorie malnutrition Hepatic encephalopathy (Acute) Cirrhosis DVT prophylaxis Hepatic encephalopathy Acute UTI (Acute) History of cirrhosis of liver (Acute) Thrombocytopenia (Acute) Depression Chronic back pain History of total right hip arthroplasty 2018 GERD (gastroesophageal reflux disease) Portal hypertensive gastropathy Hx of esophageal varices (Acute) 2/2 chronic portal HTN Medical History Increased ammonia level History of COVID-19 11/01/21 @ [facility]--he was in the hospital for weakness and confusion and they did a COVID test and was found to be positive, states he had no symptoms of covid--no symptoms now Thrombocytopenia Tobacco abuse Depression with anxiety Osteoarthritis of right knee Esophageal varices Urinary tract infection hx, recurrent Lumbar radiculopathy Lumbar disc herniation Sacroiliitis Alcoholic cirrhosis Portal vein thrombosis hx History of hepatitis C pt states he no longer has History of alcohol abuse per pt quit 2013 Hx of thrombocytopenia Baseline platelets ~ 50-75k. 2/2 cirrhosis. Hx of encephalopathy 04/2020 [facility] Hx of gynecomastia History of anemia Hypertension Hx of ascites History of cirrhosis of liver D/T ALCOHOL Hearing deficit right ear perf eardrum Surgical History History of lumbar spinal fusion (~05/27/20) x2 History of esophagogastroduodenoscopy (EGD) History of colonoscopy with polypectomy 06/2022 @ [facility] Hx of decompression of ulnar nerve RIGHT History of tooth extraction all teeth removed Family History Father Diabetes Other No family history of adverse response to anesthesia Social History Smoking Status: Former smoker Tobacco Type: Smokeless Tobacco (Dip or Chew) Second Hand Exposure: No; Do You Dip or Chew Tobacco: Yes; Tobacco Cessation Education Requested by Patient: No Hx Alcohol Use: No Hx Substance Use: No Preferred Language: Albanian Communication Ability: Effective Online Media Director Required: No Beliefs That Will Affect Care: None marital status: / Current Living Situation: Alone Current Living Situation Comment: Pt states he has a friend that comes by to help him How many Children do You have: 3 Other Information That Helps Us Care for You: No Feels Safe at Home: Yes Safety Concerns: Feels Safe At This Time Assistive Devices: Cane, Glasses, Scooter/Electric Scooter and Walker Review of Systems Review of Systems: All systems reviewed & are unremarkable except as noted in HPI & below Physical Exam Physical Exam: General- Not in distress. Head- atraumatic Eyes- PERRL. ENT- oropharynx clear Neck- supple, no JVD. Lungs- clear to auscultation no wheezing or crackles Heart- regular rate and rhythm; no murmur, no gallop. Abdomen- normal bowel sounds, soft, nontender, no distension Extremities- no pretibial edema, right arm in dressing. painful movement of left lower extremity Neuro- alert, oriented PERRL, no facial palsy; no dysarthria; obeys simple commands Results & Data Results & Data Vital Signs (Past 12 Hours) Vital Signs Temp Pulse Pulse Resp BP BP Pulse Ox 04/19/24 00:14 103 H 04/19/24 00:00 106 H 19 166/89 H 97 04/18/24 22:14 109 H 24 154/118 H 97 04/18/24 21:12 79 16 99 04/18/24 20:21 78 04/18/24 20:21 14 04/18/24 20:21 36.8 C 80 14 111/74 99 O2 Del Method 04/19/24 00:14 04/19/24 00:00 Room Air 04/18/24 22:14 Room Air 04/18/24 21:12 Room Air 04/18/24 20:21 04/18/24 20:21 04/18/24 20:21 Room Air Diagnostic Findings Laboratory Results WBC 4.07 K/ul (4.8-10.8) L 04/18/24 20: RBC 3.83 M/uL (4.70-6.10) L 04/18/24 20: Hgb 12.4 g/dl (14.0-18.0) L 04/18/24 20: Hct 35.5 % (42.0-52.0) L 04/18/24 20: MCV 92.7 fL (80.0-100.0) 04/18/24 20: MCH 32.4 pg (25.0-34.0) 04/18/24 20: MCHC 34.9 g/dL (32.0-36.0) 04/18/24 20: RDW Std Deviation 48.3 fL (36.4-46.3) H 04/18/24 20: RDW Coeff of Abhijit 14.2 % (11.5-14.5) 04/18/24 20: Plt Count 89 K/uL (130-400) L 04/18/24 20: MPV 10.5 fL (9.4-12.4) 04/18/24 20: Immature Gran % (Auto) 0.2 % 04/18/24 20: Neut % (Auto) 56.5 % 04/18/24 20: Lymph % (Auto) 25.6 % 04/18/24 20: [place] % (Auto) 12.5 % 04/18/24 20: Eos % (Auto) 4.2 % 04/18/24 20:26 Baso % (Auto) 1.0 % 04/18/24 20: Neut # (Auto) 2.30 K/uL (1.40-6.50) 04/18/24 20: Lymph # (Auto) 1.04 K/uL (1.20-3.40) L 04/18/24 20: [place] # (Auto) 0.51 K/uL (0.11-0.59) 04/18/24 20: Eos # (Auto) 0.17 K/uL (0.00-0.50) 04/18/24 20: Baso # (Auto) 0.04 K/uL (0.00-0.20) 04/18/24 20: Immature Gran # (Auto) 0.01 K/uL (0.01-0.20) 04/18/24 20: PT 13.4 Seconds (9.0-12.0) H 04/18/24 20: INR 1.3 (0.9-1.1) H 04/18/24 20: APTT 25 Seconds (21-31) 04/18/24 20: PTT Ratio 0.9 04/18/24 20: Sodium 142 mmol/L (136-145) 04/18/24 20: Potassium 3.3 mmol/L (3.5-5.1) L 04/18/24: Chloride 112 mmol/L (98-107) H 04/18/24 20: Carbon Dioxide 25 mmol/L (21-32) 04/18/24 20: Anion Gap 5 (3-11) 04/18/24 20: BUN 8 mg/dl (6-23) 04/18/24: Creatinine 0.53 mg/dl (0.6-1.4) L 04/18/24: Est Cr Clr Drug Dosing 129.4 ml/min 04/18/24 20: eGFR 111.91 04/18/24 20: BUN/Creatinine Ratio 15.1 (10-20) 04/18/24 20: Glucose 71 mg/dl (70-99(Fasting)) 04/18/24 20: Calcium 8.9 mg/dl (8.6-10.3) 04/18/24 20: Magnesium 1.7 mg/dl (1.7-2.4) 04/18/24 20:26 Total Bilirubin 1.7 mg/dl (0.2-1.0) H 04/18/24 20:26 AST 47 U/L (13-39) H 04/18/24 20:26 ALT 20 U/L (7-52) 04/18/24 20:26 Alkaline Phosphatase 106 U/L (34-104) H 04/18/24 20:26 Ammonia 73.0 umol/L (18-72) H 04/18/24 21:39 Total Creatine Kinase 90 U/L (30-223) 04/18/24 20: Troponin I High Sens 9.5 pg/ml (0-20) 04/18/24 20: Total Protein 6.1 gm/dl (6.0-8.3) 04/18/24 20: Albumin 3.2 gm/dl (3.4-5.0) L 04/18/24 20: Globulin 2.9 gm/dl (2.5-4.0) 04/18/24 20: Albumin/Globulin Ratio 1.1 (0.9-2) 04/18/24 20: Lipase 42 U/L (11-82) 04/18/24 20: TSH 0.036 uIu/ml (0.300-4.500) L 04/18/24 20: Free T4 1.35 ng/dl (0.61-1.60) 04/18/24 20:26 Urine Color Dark Yellow 04/18/24 22:12 Urine Appearance Clear (Clear) 04/18/24 22:12 Urine pH 8.5 (4.5-7.5) H 04/18/24 22:12 Ur Specific [place] 1.015 (1.000-1.030) 04/18/24 22:12 Urine Protein Negative (Negative) 04/18/24 22:12 Urine Glucose (UA) Negative (Negative) 04/18/24 22:12 Urine Ketones Negative (Negative) 04/18/24 22:12 Urine Blood 1+ (Negative) H 04/18/24 22:12 Urine Nitrite Positive (Negative) A 04/18/24 22:12 Urine Bilirubin Negative (Negative) 04/18/24 22:12 Urine Urobilinogen Negative (Negative) 04/18/24 22:12 Ur Leukocyte Esterase Trace (Negative) H 04/18/24 22:12 Urine WBC (Auto) 6-10 /hpf (0-5) H 04/18/24 22:12 Urine RBC (Auto) 11-20 /hpf (0-2) H 04/18/24 22:12 U Hyaline Cast (Auto) 0-2 /lpf (0-2) 04/18/24 22:12 U Epithel Cells (Auto) 0-2 /hpf (0-2) 04/18/24 22:12 Urine Bacteria (Auto) None Seen (None Seen) 04/18/24 22:12 Ethyl Alcohol mg/dL < 10.0 mg/dl (<10.0) 04/18/24 21:40 Impressions Hip/Pelvis X-Ray 04/18/24 20:48 Exam(s): XR HIP + PELVIS, 1 view EXAM: XR Left Hip With Pelvis When Performed, 2 or 3 Views CLINICAL HISTORY: Reason for exam: L hip pain s/p fall. TECHNIQUE: Two or three views of the left hip with pelvis when performed. COMPARISON: November 03, 2021. FINDINGS: Bones/joints: Previous total right hip replacement. 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 There is been interval degenerative change and superior subluxation of the left hip. No acute fracture or dislocation. Soft tissues: Unremarkable. IMPRESSION: No acute findings. Deformity of the left femoral head which may be due to developmental hip dysplasia. There is been progressive flattening, degenerative arthropathy and subluxation since the prior study. Electronically signed by: Vishnu Nunez MD 04/19/24 00:[address] 04/18/24 21:01 Exam(s): CT L SPINE EXAM: CT Lumbar Spine Without Intravenous Contrast CLINICAL HISTORY: Reason for exam: fall. TECHNIQUE: Axial computed tomography images of the lumbar spine without intravenous contrast. CTDI is 56 mGy and DLP is 749 mGy-cm. Automated exposure control was utilized for the study. A dose lowering technique was utilized adhering to the principles of ALARA. COMPARISON: Prior CT scan of the lumbar spine from November 03, 2021. FINDINGS: Vertebrae: Bilateral S1 pars defects. Right L5 pedicle and left facet fractures. Status post posterior interbody fusion of L4 and L5 with transfer Screws and connecting rods in place. No acute fracture. Discs/spinal canal/neural foramina: No acute findings. No spinal canal stenosis. Soft tissues: Left nephrolithiasis. IMPRESSION: No evidence of acute lumbar spine pathology. Electronically signed by: Trupti Park MD 04/18/24 23:31 PM Chest X-Ray 04/18/24 21:02 Exam(s): XR CXR 1 VIEW EXAM: XR Chest, 1 View CLINICAL HISTORY: Reason for exam: weakness. TECHNIQUE: Frontal view of the chest. COMPARISON: Chest ON the 2023. FINDINGS: Lungs: Unremarkable. No acute infiltration, atelectasis or mass. Pleural space: Unremarkable. No pneumothorax or pleural fluid. Heart: Unremarkable. No cardiomegaly. Mediastinum: Unremarkable. Normal mediastinal contour. Bones/joints: No acute findings. IMPRESSION: No acute findings in the chest. Electronically signed by: Vishnu Nunez MD 04/19/24 00:[address] 04/18/24 21:02 Exam(s): CT HEAD Without Contrast EXAM: CT Head Without Intravenous Contrast CLINICAL HISTORY: Reason for exam: fall. TECHNIQUE: Axial computed tomography images of the head/brain without intravenous contrast. CTDI is 56 mGy and DLP is 749 mGy-cm. Automated exposure control was utilized for the study. A dose lowering technique was utilized adhering to the principles of ALARA. COMPARISON: Prior head CT from August 29, 2023. FINDINGS: Brain: Unremarkable. No hemorrhage. No significant white matter disease. No edema. Ventricles: Moderate ventriculomegaly. Bones/joints: Unremarkable. No acute fracture. Soft tissues: Unremarkable. Sinuses: Unremarkable as visualized. No acute sinusitis. Mastoid air cells: Unremarkable as visualized. No mastoid effusion. IMPRESSION: No evidence of acute intracranial pathology. Electronically signed by: Trupti Park MD 04/18/24 23:26 PM ECG Additional Comments: ECG. Normal sinus rhythm rate of 76. No significant change was found. Code Status & VTE Plan VTE Prophylaxis Plan VTE Prophylaxis will be ordered: Yes
[2024-04-19] MEDS ORDERED: ALBUTEROL HFA 8 GM INHALER INH PRN (02:40)
[2024-04-19] MEDS ORDERED: HYDROmorphone INJ 0.5 MG/0.5 ML SYR IV PRN (02:40)
[2024-04-19] MEDS: HYDROmorphone INJ 0.5 MG/0.5 ML SYR IV PRN (02:58)
[2024-04-19 07:23] LABS: Basophils # (auto) 0.05 K/uL (0.00-0.20); Basophils % (auto) 1.3 %; Eosinophils # (auto) 0.27 K/uL (0.00-0.50); Eosinophils % (auto) 7.1 %; Hematocrit (blood only) 31.7 % (42.0-52.0); Mean Corpuscular Hemoglobin 32.4 pg (25.0-34.0); Mean Corpuscular Hgb Conc 34.7 g/dL (32.0-36.0); Mean Corpuscular Volume 93.5 fL (80.0-100.0); Mean Platelet Volume 9.6 fL (9.4-12.4); Monocytes # (auto) 0.47 K/uL (0.11-0.59); Monocytes % (auto) 12.3 %; Neutrophils # (auto) 1.73 K/uL (1.40-6.50); Neutrophils % (auto) 45.3 %; Platelet Count 68 K/uL (130-400); RDW Coefficient of Variation 14.2 % (11.5-14.5); Red Blood Count 3.39 M/uL (4.70-6.10); White Blood Count 3.82 K/ul (4.8-10.8)
[2024-04-19 07:38] LABS: Albumin Level 2.8 gm/dl (3.4-5.0); BUN Creatinine Ratio 17.6 (10-20); Bilirubin Direct 0.3 mg/dl (0-0.2); Bilirubin,Total 1.5 mg/dl (0.2-1.0); Calcium 8.4 mg/dl (8.6-10.3); Magnesium 1.6 mg/dl (1.7-2.4); Potassium 3.6 mmol/L (3.5-5.1); Total Protein 5.3 gm/dl (6.0-8.3)
--- NOTE | 2024-04-19 08:04 | Orthopedic Consultation ---
Date of Service April 19, 2024 Assessment & Plan (1) Degenerative joint disease of left hip: 64-year-old gentleman with a history of multiple medical comorbidities with history of right hip replacement 2 spine surgeries in the past admitted with ambulatory dysfunction and pain. Certainly he is got the multiple reasons for his pain. He is got history of 2 back surgeries which have not done well with hardware failure and persistent pain. 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 This has progressed over the past 2 years. It does not appear there is anything acute. Plan: At this point has been admitted by the medicine service. I would recommend PT OT and mobilization. He can weight-bear as tolerated. He is likely going to want his hip replaced here in the not too distant future. I do think that would help him significantly. Recommend spine evaluation as she has had 2 previous spine surgeries in which I have not done well with and continues to be limited by his pain. I think is unlikely there is any major problems there anything acute but recommend consultation with Dr. Bauer his most recent spine surgeon. From an orthopedic standpoint he can weight-bear as tolerated. He can resume PT. He can weight-bear as tolerated. He is likely getting 1 hip surgery here in the [id number] future. Will see how things come along with a spine evaluation. Any orthopedic quick questions can direct me [phone]. (2) Lower back pain: (3) Ambulatory dysfunction: History of Present Illness Reason for Consultation: . Severe back and hip pain and ambulatory dysfunction with a history of 2 previous back surgeries as well as right hip replacement. Requesting Physician: . Attending Physician: Ledy Parekh MD . Patient is a 64-year-old gentleman with multiple medical comorbidities from the [facility] who presents for ambulatory dysfunction and chronic back and hip pain. Coy a long history of orthopedic disorders and problems in the past. He has right hip replaced by Dr. Alejandro burton in 2019 and has had 2 back surgeries 1 by after and then a revision by Dr. Bauer. The right hip is done fine. He reports no problems with that. He has developed increasing left hip pain discomfort over the past year to 2 years. His major complaint is back pain more than hip pain but both are bothering him and limiting his activity significantly. He is having difficulty getting around. Denies any fevers. He is in remission of history of alcohol abuse. He reports some numbness in his left leg. Allergies Allergy/AdvReac Type Severity Reaction Status Date / Time No Known Allergies Allergy Verified 12/09/23 15:06 Home Medications Medication Instructions Recorded Confirmed Type albuterol sulfate 90 mcg/actuation 2 puff inhalation Q4H PRN 04/19/24 04/19/24 History aerosol inhaler Shortness Of Breath Or Wheezing baclofen 10 mg tablet 10 mg PO TID PRN back spasms 04/19/24 04/19/24 History calcium carbonate (Tums E-X) 300 mg PO TID PRN heart burn 04/19/24 04/19/24 History duloxetine 60 mg capsule,delayed 60 mg PO DAILY 04/19/24 04/19/24 History release folic acid 1 mg tablet 1 mg PO DAILY 04/19/24 04/19/24 History gabapentin 100 mg capsule 100 mg PO BID 04/19/24 04/19/24 History lactulose 20 gram oral packet 20 g PO TID 04/19/24 04/19/24 History (Kristalose) pantoprazole 40 mg tablet,delayed 40 mg PO DAILY 04/19/24 04/19/24 History release (Protonix) potassium chloride 20 mEq oral 20 meq PO DAILY 04/19/24 04/19/24 History packet rifaximin 550 mg tablet (Xifaxan) 550 mg PO TID 04/19/24 04/19/24 History spironolactone 100 mg tablet 100 mg PO DAILY 04/19/24 04/19/24 History thiamine HCl (vitamin B1) 100 mg 100 mg PO DAILY 04/19/24 04/19/24 History tablet torsemide 20 mg tablet 20 mg PO BID 04/19/24 04/19/24 History valacyclovir 1 gram tablet 1,000 mg PO DAILY 04/19/24 04/19/24 History Past Med/Surg History Problem List (Updated 04/19/24 @ 08:01 by Gene Olmos MD) Degenerative joint disease of left hip Hypertension (Acute) Skin tear of right upper extremity (Acute) Elevated liver enzymes (Acute) Anemia (Acute) Left hip pain (Acute) Lower back pain (Acute) Fall (Acute) Fall (Acute) Encounter for pre-operative examination History of colon polyps [place] Ambulatory dysfunction Pancytopenia Acute hepatic encephalopathy (Acute) COVID-19 (Acute) SARS-CoV-2 positive Protein calorie malnutrition Hepatic encephalopathy (Acute) Cirrhosis DVT prophylaxis Hepatic encephalopathy Acute UTI (Acute) History of cirrhosis of liver (Acute) Thrombocytopenia (Acute) Depression Chronic back pain History of total right hip arthroplasty 2018 GERD (gastroesophageal reflux disease) Portal hypertensive gastropathy Hx of esophageal varices (Acute) 2/2 chronic portal HTN Medical History Increased ammonia level History of COVID-19 11/01/21 @ [facility]--he was in the hospital for weakness and confusion and they did a COVID test and was found to be positive, states he had no symptoms of covid--no symptoms now Thrombocytopenia Tobacco abuse Depression with anxiety Osteoarthritis of right knee Esophageal varices Urinary tract infection hx, recurrent Lumbar radiculopathy Lumbar disc herniation Sacroiliitis Alcoholic cirrhosis Portal vein thrombosis hx History of hepatitis C pt states he no longer has History of alcohol abuse per pt quit 2013 Hx of thrombocytopenia Baseline platelets ~ 50-75k. 2/2 cirrhosis. Hx of encephalopathy 04/2020 [facility] Hx of gynecomastia History of anemia Hypertension Hx of ascites History of cirrhosis of liver D/T ALCOHOL Hearing deficit right ear perf eardrum Surgical History History of lumbar spinal fusion (~05/27/20) x2 History of esophagogastroduodenoscopy (EGD) History of colonoscopy with polypectomy 06/2022 @ [facility] Hx of decompression of ulnar nerve RIGHT History of tooth extraction all teeth removed Family History Father Diabetes Other No family history of adverse response to anesthesia Social History Smoking Status: Former smoker Tobacco Type: Smokeless Tobacco (Dip or Chew) Second Hand Exposure: No; Do You Dip or Chew Tobacco: Yes; Tobacco Cessation Education Requested by Patient: No Hx Alcohol Use: No Hx Substance Use: No Preferred Language: Korean Communication Ability: Effective Commercial Specialist Required: No Beliefs That Will Affect Care: None marital status: / Current Living Situation: Alone Current Living Situation Comment: Pt states he has a friend that comes by to help him How many Children do You have: 3 Other Information That Helps Us Care for You: No Feels Safe at Home: Yes Safety Concerns: Feels Safe At This Time Assistive Devices: Cane, Glasses, Scooter/Electric Scooter and Walker Review of Systems All systems reviewed & are unremarkable except as noted in HPI & below. Physical Exam . Physical examination was a pleasant middle-age male. Looks older than his stated age. He is lying in bed and looks reasonably comfortable in bed. Examination of the hips revealed him to be lying in bed with his left hip flexed slightly. He does have significant pain with hip motion. No significant swelling. No cellulitis. He is neurologically intact. Results & Data Results & Data Laboratory Results . Diagnostic Findings . X-rays of the hip were reviewed. 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 Over the past 2 years used to get progressive hip arthritis with flattening of the femoral head and degenerative changes on both sides of the joint. This has progressed significantly over the past 2 years. I did review his x-rays and imaging of his lumbar spine. Shows evidence of the previous spine fusion with some hardware failure. It appears that some of the screws may not back to be in the vertebral bodies. PG Care Time/CCT Total # of Minutes Spent Total Time Spent with Patient: Total time spent is greater than 50% in coordination of care (as documented) at patient's floor/unit and/or counseling patient: Coding Level of Care Code 07125 IN/OBS CONSULT LVL 4,60M Diagnoses Degenerative joint disease of left hip M16.12 Lower back pain M54.50; G89.29 Back pain laterality: midline Chronicity: chronic Sciatica presence: unspecified whether sciatica present Ambulatory dysfunction R26.2 (2) Lower back pain Back pain laterality: midline Chronicity: chronic Sciatica presence: unspecified whether sciatica present Qualified Code(s): M54.50 - Low back pain, unspecified; G89.29 - Other chronic pain
[2024-04-19 08:33] LABS: C Reactive Protein 0.53 mg/dl (0-0.5)
[2024-04-19] MEDS: cefTRIAXone SODIUM 2,000 MG/50 ML BAG IV SCH (09:30)
[2024-04-19] MEDS: GABAPENTIN 100 MG CAP PO SCH (09:31)
[2024-04-19] MEDS: PANTOprazole 40 MG TAB PO SCH (09:31)
[2024-04-19] MEDS: FOLIC ACID 1 MG TAB PO SCH (09:31)
[2024-04-19] MEDS: DULoxetine HCL 60 MG CAP PO SCH (09:31)
[2024-04-19] MEDS: LACTULOSE SYRUP 20 GM/30 ML UDC PO SCH (09:31)
[2024-04-19] MEDS: SPIRONOLACTONE 100 MG TAB PO SCH (09:31)
[2024-04-19] MEDS: TORSEMIDE 20 MG TAB PO SCH (09:32)
[2024-04-19] MEDS: rifAXIMin 550 MG TABLET PO SCH (09:32)
[2024-04-19] MEDS: POTASSIUM CHLORIDE PWD 20 MEQ PACK PO SCH (09:32)
[2024-04-19] MEDS: valACYclovir HCL 500 MG TABLET PO SCH (09:33)
[2024-04-19] MEDS: THIAMINE HCL 100 MG TAB PO SCH (09:33)
--- NOTE | 2024-04-19 10:32 | Communication Note ---
Date of Service: April 19, 2024 Patient seen and examined Reports severe left hip pain Exam notes tenderness on passive and active ROM of Left hip Reviewed patient with Dr Bauer Will get CT L hip and pelvis Pain control Will reeval again with Ortho Sx after scans Agree with other plans as detailed in H/P this AM
--- NOTE | 2024-04-19 10:56 | Orthopedic Consultation ---
Date of Consultation April 19, 2024 Assessment & Plan (1) Degenerative joint disease of left hip: Assessment evidence of multilevel spondylosis of the lumbar spine with advanced osteoarthritis of the left hip perhaps AVN. Plan at this point is lumbar spine does have some areas of concern and may ultimately require MRI for more detailed imaging. However on my exam today and his hip appears to be the dominant limiting factor. I will obtain a CAT scan of the pelvis to include the hip and SI joints to rule out any contribution from sacroiliac disease. History of Present Illness Reason for Consultation: Back and leg pain Attending Physician: Ledy Parekh MD History of Present Illness This is a 64-year-old male well-known to me that is undergone revision decompression and fusion of the lumbar spine several years ago. He presents with severe left leg pain. He describes an pain involving the left anterior thigh and groin. He states his back pain is controlled. There is no clear radicular component. Denies any numbness and tingling into the feet. Allergies Allergy/AdvReac Type Severity Reaction Status Date / Time No Known Allergies Allergy Verified 12/09/23 15:06 Home Medications Medication Instructions Recorded Confirmed Type albuterol sulfate 90 mcg/actuation 2 puff inhalation Q4H PRN 04/19/24 04/19/24 History aerosol inhaler Shortness Of Breath Or Wheezing baclofen 10 mg tablet 10 mg PO TID PRN back spasms 04/19/24 04/19/24 History calcium carbonate (Tums E-X) 300 mg PO TID PRN heart burn 04/19/24 04/19/24 History duloxetine 60 mg capsule,delayed 60 mg PO DAILY 04/19/24 04/19/24 History release folic acid 1 mg tablet 1 mg PO DAILY 04/19/24 04/19/24 History gabapentin 100 mg capsule 100 mg PO BID 04/19/24 04/19/24 History lactulose 20 gram oral packet 20 g PO TID 04/19/24 04/19/24 History (Kristalose) pantoprazole 40 mg tablet,delayed 40 mg PO DAILY 04/19/24 04/19/24 History release (Protonix) potassium chloride 20 mEq oral 20 meq PO DAILY 04/19/24 04/19/24 History packet rifaximin 550 mg tablet (Xifaxan) 550 mg PO TID 04/19/24 04/19/24 History spironolactone 100 mg tablet 100 mg PO DAILY 04/19/24 04/19/24 History thiamine HCl (vitamin B1) 100 mg 100 mg PO DAILY 04/19/24 04/19/24 History tablet torsemide 20 mg tablet 20 mg PO BID 04/19/24 04/19/24 History valacyclovir 1 gram tablet 1,000 mg PO DAILY 04/19/24 04/19/24 History Patient History Medical History Increased ammonia level History of COVID-19 11/01/21 @ [facility]--he was in the hospital for weakness and confusion and they did a COVID test and was found to be positive, states he had no symptoms of covid--no symptoms now Thrombocytopenia Tobacco abuse Depression with anxiety Osteoarthritis of right knee Esophageal varices Urinary tract infection hx, recurrent Lumbar radiculopathy Lumbar disc herniation Sacroiliitis Alcoholic cirrhosis Portal vein thrombosis hx History of hepatitis C pt states he no longer has History of alcohol abuse per pt quit 2013 Hx of thrombocytopenia Baseline platelets ~ 50-75k. 2/ cirrhosis. Hx of encephalopathy 04/2020 [facility] Hx of gynecomastia History of anemia Hypertension Hx of ascites History of cirrhosis of liver D/T ALCOHOL Hearing deficit right ear perf eardrum Surgical History History of lumbar spinal fusion (~05/27/20) x2 History of esophagogastroduodenoscopy (EGD) History of colonoscopy with polypectomy 06/2022 @ [facility] Hx of decompression of ulnar nerve RIGHT History of tooth extraction all teeth removed Family History Father Diabetes Other No family history of adverse response to anesthesia Social History Smoking Status: Former smoker Tobacco Type: Smokeless Tobacco (Dip or Chew) Second Hand Exposure: No; Do You Dip or Chew Tobacco: Yes; Tobacco Cessation Education Requested by Patient: No Hx Alcohol Use: No Hx Substance Use: No Preferred Language: Croatian Communication Ability: Effective Funding Analyst Required: No Beliefs That Will Affect Care: None marital status: / Current Living Situation: Alone Current Living Situation Comment: Pt states he has a friend that comes by to help him How many Children do You have: 3 Other Information That Helps Us Care for You: No Feels Safe at Home: Yes Safety Concerns: Feels Safe At This Time Assistive Devices: Cane, Glasses, Scooter/Electric Scooter and Walker Physical Exam Physical Exam: On exam the patient is obvious distress. He has excellent full range of motion to the right lower extremity with a negative logroll +5-5 plantarflexion dorsiflexion quadriceps. On the left even modest logroll creates severe discomfort. He is neurologically tact with plantarflexion dorsiflexion left foot. Results & Data Vital Signs (Past 12 Hours) Vital Signs Temp Pulse Pulse Pulse Resp BP BP 04/19/24 07:38 36.8 C 76 18 121/67 04/19/24 02:30 36.8 C 108 H 19 145/61 H 04/19/24 02:00 105 H 18 154/82 H 04/19/24 01:27 110 H 134/72 04/19/24 00:14 103 H 04/19/24 00:00 106 H 19 166/89 H Pulse Ox O2 Del Method 04/19/24 07:38 98 Room Air 04/19/24 02:30 99 Room Air 04/19/24 02:00 95 Room Air 04/19/24 01:27 04/19/24 00:14 04/19/24 00:00 97 Room Air
--- NOTE | 2024-04-19 12:54 | CT Scan Report ---
HISTORY: Left hip pain. TECHNIQUE: CT imaging of thePelvis and left hip. Images are presented in axial, sagittal, coronal reformats. COMPARISON: Bilateral hip radiographs dated 11/03/2021. FINDINGS: Partially included lower lumbar fusion hardware. The sacrum appears intact. Moderate osteoarthritis of the sacroiliac joints. Mild osteoarthritis of the pubic symphysis. The inferior and superior pubic rami appear intact. Left hip dysplasia is noted. Severe arthrosis of the left hip. There is subchondral sclerosis. There are extensive subchondral lucency about the superior lateral femoral head with associated subchondral insufficiency fracture with depression of the articular surface. The left femoral neck and visible proximal femur appear intact. There is no acute fracture of the left acetabulum. Right hip arthroplasty without obvious complication.Severe arthrosis of the lower lumbar spine. Chronic bilateral L5 pars defects.The intrapelvic soft tissues demonstrate no acute findings. There is a large left hip joint effusion. IMPRESSION: * Severe left hip dysplasia with anterolateral subluxation of the femoral head relative to the acetabulum. Severe/end-stage arthrosis of the left hip is present with extensive lucency of the femoral head articular surface with associated acute appearing subchondral insufficiency fracture resulting in articular surface depression. Articular surface lucency could be due to subchondral cystic change in the setting of severe/end-stage osteoarthritis, sequelae of avascular necrosis, or less likely infection or inflammatory arthropathy. Large left hip joint effusion. * Right hip arthroplasty without obvious complication. * Moderate osteoarthritis of the sacroiliac joints and pubic symphysis. * Severe degenerative spondylosis of the lower lumbar spine and lumbosacral junction. Chronic bilateral L5 pars defects. Electronically signed by Diomedes Pelletier 04-19-2024 12:53 PM
--- NOTE | 2024-04-19 13:14 | Electrocardiogram Report ---
Test Reason : Blood Pressure : */* mmHG Vent. Rate : 76 BPM Atrial Rate : 76 BPM P-R Int : 166 ms QRS Dur : 100 ms QT Int : 418 ms P-R-T Axes : 59 31 71 degrees QTcB Int : 470 ms Normal sinus rhythm Normal ECG When compared with ECG of 29-Aug-2023 13:44, No significant change was found Confirmed by Gordy Pinto ([id number]) on 04/19/2024 1:14:46 PM Referred By: REFERRED SELF Confirmed By: Gordy Pinto
--- NOTE | 2024-04-19 14:01 | CT Scan Report ---
HISTORY: Left hip pain. TECHNIQUE: 3D volumetric reformats of the left hip are provided, which are reconstructed from the dedicated CT of thepelvis. The studies are read in conjunction. COMPARISON: Bilateral hip radiographs dated 11/03/2021. FINDINGS: Partially included lower lumbar fusion hardware. The sacrum appears intact. Moderate osteoarthritis of the sacroiliac joints. Mild osteoarthritis of the pubic symphysis. The inferior and superior pubic rami appear intact. Left hip dysplasia is noted. Severe arthrosis of the left hip. There is subchondral sclerosis. There are extensive subchondral lucency about the superior lateral femoral head with associated subchondral insufficiency fracture with depression of the articular surface. The left femoral neck and visible proximal femur appear intact. There is no acute fracture of the left acetabulum. Right hip arthroplasty without obvious complication.Severe arthrosis of the lower lumbar spine. Chronic bilateral L5 pars defects.The intrapelvic soft tissues demonstrate no acute findings. There is a large left hip joint effusion. IMPRESSION: * Severe left hip dysplasia with anterolateral subluxation of the femoral head relative to the acetabulum. Severe/end-stage arthrosis of the left hip is present with extensive lucency of the femoral head articular surface with associated acute appearing subchondral insufficiency fracture resulting in articular surface depression. Articular surface lucency could be due to subchondral cystic change in the setting of severe/end-stage osteoarthritis, sequelae of avascular necrosis, or less likely infection or inflammatory arthropathy. Large left hip joint effusion. * Right hip arthroplasty without obvious complication. * Moderate osteoarthritis of the sacroiliac joints and pubic symphysis. * Severe degenerative spondylosis of the lower lumbar spine and lumbosacral junction. Chronic bilateral L5 pars defects. Electronically signed by Diomedes Pelletier 04-19-2024 2:01 PM
[2024-04-19] MEDS: oxyCODONE HCL IR 5 MG TAB (IMMEDIATE RELEASE) PO PRN (19:40)
[2024-04-20 06:56] LABS: Hematocrit (blood only) 31.6 % (42.0-52.0); Hemoglobin 10.7 g/dl (14.0-18.0); Mean Corpuscular Hemoglobin 32.3 pg (25.0-34.0); Mean Corpuscular Hgb Conc 33.9 g/dL (32.0-36.0); Mean Corpuscular Volume 95.5 fL (80.0-100.0); Platelet Count 61 K/uL (130-400); RDW Coefficient of Variation 14.2 % (11.5-14.5); RDW Standard Deviation 50.2 fL (36.4-46.3); Red Blood Count 3.31 M/uL (4.70-6.10); White Blood Count 2.77 K/ul (4.8-10.8)
[2024-04-20 07:17] LABS: BUN Creatinine Ratio 23.5 (10-20); Calcium 8.5 mg/dl (8.6-10.3); Potassium 3.9 mmol/L (3.5-5.1)
--- NOTE | 2024-04-20 08:30 | Orthopedic Progress Note ---
Date of Service April 20, 2024 Assessment & Plan (1) Degenerative joint disease of left hip: Plan: 64-year-old gentleman with multiple medical comorbidities admitted with ambulatory dysfunction and to somewhat unsuccessful back surgeries, successful right hip surgery and advanced left hip arthritis. He is got 2 sources of primarily of pain and dysfunction related to his hip and his back. I do think the majority of his pain and dysfunction currently seem to be coming from his hip joint. X-rays do show progressive hip arthritis and a vast necrosis. Plan: At this point I would recommend therapy and continue mobilization. I think he is going to want his hip replaced. His hip surgeon Dr. Allen will be here tomorrow and I will pass this information on to him. This is not some that is typically managed urgently. Will see how therapy goes over the next day or so. Continue medical management. He can weight-bear as tolerated. Any orthopedic questions can be directly [phone]. (2) Ambulatory dysfunction: Admission and Anticipated Discharge Date Admission Date: April 19, 2024 Subjective 64-year-old gentleman with multiple medical comorbidities admitted for ambulatory dysfunction and chronic left hip and back pain with history of multiple surgeries in the past. He said to have relatively failed spine surgeries. Has had a right hip replacement with significant success. Continues to bothered by left hip pain and progressive hip arthritis. Really no different today. It seems like majority of his pain is coming from his hip. Physical Exam Physical Exam: Physical nation is a pleasant middle-age male. He is lying in bed. Looks moderately uncomfortable. He lies with his left hip flexed. He is got marked pain with any type of hip motion. He is neurologically intact. No significant swelling. Results & Data Vital Signs (Past 12 Hours) Vital Signs Temp Pulse Resp BP Pulse Ox O2 Del Method 04/20/24 07:55 36.6 C 89 18 123/63 98 Room Air 04/19/24 21:44 36.4 C L 75 16 147/74 H 98 Room Air Laboratory Results Sed rate is 10. CRP is 0.53.
[2024-04-20] MEDS: INFLUENZA VACC TS2024-25(6m+)/PF (IIV3) 0.5mL Syr IM ONE (10:33)
[2024-04-20 11:47] LABS: Magnesium 1.7 mg/dl (1.7-2.4)
--- NOTE | 2024-04-20 12:21 | Hospitalist Progress Note ---
Date of Service April 20, 2024 Assessment & Plan (1) Ambulatory dysfunction: Plan: 64-year-old male with past medical history significant for alcoholic cirrhosis of liver without ascites, protein calorie malnutrition, GERD, portal hypertension, esophageal varices without bleeding, aortic atherosclerosis, chronic bilateral low back pain, peripheral polyneuropathy, chronic pain syndrome, pancytopenia, alcohol use disorder in remission, cocaine use disorder in remission, gynecomastia, ambulatory dysfunction, status post right hip replacement, anxiety and depression presents with severe back pain and worsening left hip pain. 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 Discussed with Ortho surgeon Dr Olmos Patient planned for OR tomorrow Will keep NPO PMN Alcoholic cirrhosis of liver without ascites Currenlty on home spironolactone and torsemide and potassium supplement Continue lactulose and Xifaxan Will hold torsemide after this evening dose until after OR Possible UTI Urine culture growing staph epidermidis Will continue ceftriaxone butch with plan for OR GERD On Protonix Pancytopenia From liver cirrhosis Depression and anxiety Duloxetine DVT prophylaxis SCDs for now Full code I spent a total of 55 minutes coordinating, documenting and providing care for this patient excluding time spent in performance of separately billed services Admission and Anticipated Discharge Date Admission Date: April 19, 2024 Subjective Patient seen and examined Reports left hip pain and chronic low back pain Denied urinary symptoms Physical Exam Constitutional: + well hydrated; no acute distress Eyes: PERRL, conjunctivae normal, anicteric sclerae ENMT: external ear and nose normal, oropharynx normal Respiratory: normal respiratory effort, lungs clear to auscultation Gastrointestinal (Abdomen): normal bowel sounds, soft, nontender, no hepatosp lenomegaly Musculoskeletal: Significant pain on left hip with any type of movement Neurologic: PERRL, EOMI, accommodation nl, no face palsy, no dysarthria Psychiatric: A+Ox3, euthymic affect Results & Data Results & Data Vital Signs (Past 12 Hours) Vital Signs Temp Pulse Resp BP Pulse Ox O2 Del Method 04/20/24 07:55 36.6 C 89 18 123/63 98 Room Air Laboratory Results Abnormal lab results 04/20/24 Range/Units 06:23 WBC 2.77 L (4.8-10.8) K/ul RBC 3.31 L (4.70-6.10) M/uL Hgb 10.7 L (14.0-18.0) g/dl Hct 31.6 L (42.0-52.0) % RDW Std Deviation 50.2 H (36.4-46.3) fL Plt Count 61 L (130-400) K/uL Chloride 111 H (98-107) mmol/L Anion Gap 2 L (3-11) Creatinine 0.51 L (0.6-1.4) mg/dl BUN/Creatinine Ratio 23.5 H (10-20) Glucose 104 H (70-99(Fasting)) mg/dl Calcium 8.5 L (8.6-10.3) mg/dl
[2024-04-20] MEDS: cefTRIAXone SODIUM 1,000 MG/50 ML BAG IV SCH (12:42)
[2024-04-20] MEDS: BACLOFEN 10 MG TAB PO PRN (19:27)
[2024-04-21 07:34] LABS: Hematocrit (blood only) 37.4 % (42.0-52.0); Hemoglobin 13.4 g/dl (14.0-18.0); Mean Corpuscular Hemoglobin 32.8 pg (25.0-34.0); Mean Corpuscular Hgb Conc 35.8 g/dL (32.0-36.0); Mean Corpuscular Volume 91.7 fL (80.0-100.0); Mean Platelet Volume 11.1 fL (9.4-12.4); Platelet Count 93 K/uL (130-400); RDW Coefficient of Variation 13.7 % (11.5-14.5); RDW Standard Deviation 46.4 fL (36.4-46.3); Red Blood Count 4.08 M/uL (4.70-6.10); White Blood Count 4.78 K/ul (4.8-10.8)
[2024-04-21 07:41] LABS: INR 1.2 (0.9-1.1); Prothrombin Time 13.1 Seconds (9.0-12.0)
[2024-04-21 08:31] LABS: BUN Creatinine Ratio 18.9 (10-20); Calcium 8.9 mg/dl (8.6-10.3); Magnesium 1.5 mg/dl (1.7-2.4); Phosphorus 4.7 mg/dl (2.5-4.9); Potassium 3.5 mmol/L (3.5-5.1)
--- NOTE | 2024-04-21 08:47 | Orthopedic Progress Note ---
Date of Service April 21, 2024 Assessment & Plan (1) Degenerative joint disease of left hip: Patient presented to the hospital a few days ago for evaluation of worsening low back and left hip pain. In regards to his left hip, he does have chronic and progressive worsening hip pain. Dr. Allen did perform a right total hip arthroplasty in the past. Dr. Olmos did evaluate him over the weekend. No urgent surgical intervention was recommended, however he did recommend Dr. Allen to review the patient's chart in case and see if there is anything surgically indicated during this admission. As per the patient's chart and per my knowledge, the patient is scheduled for a left total hip arthroplasty today by Dr. Allen. Patient is to remain n.p.o. throughout the day. He has been n.p.o. since midnight last night. I did ask if he had any questions or concerns regarding the procedure. He states that he is ready for the procedure and he knows what to expect. No questions or concerns. Did encourage him to reach out to the nursing staff if he does have any questions. Subjective Patient is a 64-year-old male who is a patient of Dr. Allen's who reported to the emergency department over the weekend for evaluation of chronic left hip pain and back pain. He was admitted for ambulatory dysfunction. Patient states today that his left hip has been quite bothersome to him. He states that the feeling is more than a pain. He states that he is unable to bend down to pick something up due to the significant left hip pain. To note, Dr. Allen did do a right total hip arthroplasty in the past. Dr. Olmos did see him over the weekend for consultation as well as a progress note. He was going to loop in Dr. Allen to see if this is something that was going to be surgically addressed during this admission period. He is scheduled for a left total hip arthroplasty by Dr. Allen today. Review of Systems All systems reviewed & are unremarkable except as noted in HPI & below. Physical Exam General: Alert and oriented. Patient is in no acute distress only visit today. He is neurovascularly intact in the left lower extremity. Distal pulses palpated. Cap refill less than 3 seconds. He is mobilizing the foot and ankle without difficulty. Does have pain at the hip with flexion. Positive logroll. Results & Data Results & Data Laboratory Results . Diagnostic Findings CT HIP and PELVIS on 04/19/24 IMPRESSION: * Severe left hip dysplasia with anterolateral subluxation of the femoral head relative to the acetabulum. Severe/end-stage arthrosis of the left hip is present with extensive lucency of the femoral head articular surface with associated acute appearing subchondral insufficiency fracture resulting in articular surface depression. Articular surface lucency could be due to subchondral cystic change in the setting of severe/end-stage osteoarthritis, sequelae of avascular necrosis, or less likely infection or inflammatory arthropathy. Large left hip joint effusion. * Right hip arthroplasty without obvious complication. * Moderate osteoarthritis of the sacroiliac joints and pubic symphysis. * Severe degenerative spondylosis of the lower lumbar spine and lumbosacral junction. Chronic bilateral L5 pars defects. PG Care Time/CCT Total # of Minutes Spent Total Time Spent with Patient: Total time spent is greater than 50% in coordination of care (as documented) at patient's floor/unit and/or counseling patient: Coding Level of Care Code 40633 SUB INP/OBS CARE 2/35MIN (57 - DECISION FOR SURGERY) Diagnoses Degenerative joint disease of left hip M16.12
[2024-04-21] MEDS: ONDANSETRON INJ 2 MG/ML 2 ML VIAL IV PRN ×2 (09:42→15:00)
[2024-04-21] MEDS: MAGNESIUM SULFATE / D5W 1 GM/100 ML BAG IV ONE (09:45)
--- NOTE | 2024-04-21 10:44 | History & Physical Bridge Note ---
Date of Service April 21, 2024 History & Physical Bridge Note I have examined the patient, reviewed the History & Physical and in the interval since the performance of the History & Physical I have noted the following changes of clinical significance: no changes noted
[2024-04-21] MEDS: LACTATED RINGER'S 1,000 ML IV SCH (11:13)
--- NOTE | 2024-04-21 11:15 | Anesthesiology Consultation ---
Date of Service April 21, 2024 Assessment & Plan Chart Review Chart Review: Acceptable Risk for Surgery and Patient NOT seen in Pre Admission Testing chronically thrombocytopenic Consults Requested none History Surgery Operation Date: 04/21/24 07:00 Proposed Procedures p Left Total Hip Arthroplasty Anterior(Left) - Quinn Allen DO Height/Weight Height: 5 ft 6 in Weight: 74.5 kg Allergies Allergy/AdvReac Type Severity Reaction Status Date / Time No Known Allergies Allergy Verified 12/09/23 15:06 Medications Home Medications Medication Instructions Recorded Confirmed Last Taken albuterol sulfate 90 mcg/actuation 2 puff inhalation Q4H PRN 04/19/24 04/19/24 Unknown aerosol inhaler Shortness Of Breath Or Wheezing baclofen 10 mg tablet 10 mg PO TID PRN back spasms 04/19/24 04/19/24 Unknown calcium carbonate (Tums E-X) 300 mg PO TID PRN heart burn 04/19/24 04/19/24 Unknown duloxetine 60 mg capsule,delayed 60 mg PO DAILY 04/19/24 04/19/24 Unknown release folic acid 1 mg tablet 1 mg PO DAILY 04/19/24 04/19/24 Unknown gabapentin 100 mg capsule 100 mg PO BID 04/19/24 04/19/24 Unknown lactulose 20 gram oral packet 20 g PO TID 04/19/24 04/19/24 Unknown (Kristalose) pantoprazole 40 mg tablet,delayed 40 mg PO DAILY 04/19/24 04/19/24 Unknown release (Protonix) potassium chloride 20 mEq oral 20 meq PO DAILY 04/19/24 04/19/24 Unknown packet rifaximin 550 mg tablet (Xifaxan) 550 mg PO TID 04/19/24 04/19/24 Unknown spironolactone 100 mg tablet 100 mg PO DAILY 04/19/24 04/19/24 Unknown thiamine HCl (vitamin B1) 100 mg 100 mg PO DAILY 04/19/24 04/19/24 Unknown tablet torsemide 20 mg tablet 20 mg PO BID 04/19/24 04/19/24 Unknown valacyclovir 1 gram tablet 1,000 mg PO DAILY 04/19/24 04/19/24 Unknown Active Medications Generic Name Dose Route Start Last Admin Trade Name Freq PRN Reason Stop Dose Admin Baclofen 10 mg 04/19/24 02:40 04/20/24 19:27 Baclofen 10 Mg Tab PO 05/19/24 02:39 10 mg TID PRN Administration back spasms Duloxetine HCl 60 mg 04/19/24 09:00 04/20/24 08:32 Duloxetine Hcl 60 Mg Cap PO 05/19/24 08:59 60 mg DAILY AMBER Administration Folic Acid 1 mg 04/19/24 09:00 04/20/24 08:32 Folic Acid 1 Mg Tab PO 05/19/24 08:59 1 mg DAILY AMBER Administration Gabapentin 100 mg 04/19/24 09:00 04/20/24 21:16 Gabapentin 100 Mg Cap PO 05/19/24 08:59 100 mg BID AMBER Administration Hydromorphone HCl 0.5 mg 04/19/24 02:40 04/21/24 01:29 Hydromorphone Inj 0.5 Mg/0.5 Ml Syr IV 05/03/24 02:39 0.5 mg Q6H PRN Administration Severe Pain (Scale 7, 8, 9,10) Ceftriaxone Sodium 1,000 mg in 50 mls @ 100 mls/hr 04/20/24 11:30 04/20/24 13:21 Rocephin IV 04/23/24 11:59 Infused Q24H AMBER Infusion Magnesium Sulfate/Dextrose 1 gm in 100 mls @ 50 mls/hr 04/21/24 09:37 04/21/24 09:45 Magnesium Sulfate / D5w IV 04/21/24 11:36 50 mls/hr ONE ONE Administration Lactated Ringer's 1,000 mls @ 15 mls/hr 04/21/24 11:15 04/21/24 11:13 Lr IV 04/22/24 11:14 15 mls/hr .Q24H AMBER Administration Lactulose 20 gm 04/19/24 09:00 04/20/24 21:16 Lactulose Syrup 20 Gm/30 Ml Udc PO 05/19/24 08:59 20 gm TID AMBER Administration Ondansetron HCl 4 mg 04/21/24 09:37 04/21/24 09:42 Ondansetron Inj 2 Mg/Ml 2 Ml Vial IV 04/22/24 09:36 4 mg Q6H PRN Administration Nausea And Vomiting Oxycodone HCl 5 mg 04/19/24 14:27 04/20/24 21:49 Oxycodone Hcl Ir 5 Mg Tab (Immediate Release) PO 05/03/24 14:26 5 mg Q4H PRN Administration Pain Pantoprazole Sodium 40 mg 04/19/24 09:00 04/20/24 08:32 Pantoprazole 40 Mg Tab PO 05/19/24 08:59 40 mg DAILY AMBER Administration Potassium Chloride 20 meq 04/19/24 09:00 04/20/24 08:31 Potassium Chloride Pwd 20 Meq Pack PO 05/19/24 08:59 20 meq DAILY AMBER Administration Rifaximin 550 mg 04/19/24 09:00 04/20/24 21:16 Rifaximin 550 Mg Tablet PO 05/19/24 08:59 550 mg TID AMBER Administration Spironolactone 100 mg 04/19/24 09:00 04/20/24 08:31 Spironolactone 100 Mg Tab PO 05/19/24 08:59 100 mg DAILY AMBER Administration Thiamine HCl 100 mg 04/19/24 09:00 04/20/24 08:32 Thiamine Hcl 100 Mg Tab PO 05/19/24 08:59 100 mg DAILY AMBER Administration Torsemide 20 mg 04/19/24 09:00 04/20/24 21:16 Torsemide 20 Mg Tab PO 05/19/24 08:59 20 mg BID AMBER Administration Valacyclovir HCl 1,000 mg 04/19/24 09:00 04/20/24 08:31 Valacyclovir Hcl 500 Mg Tablet PO 05/19/24 08:59 1,000 mg DAILY AMBER Administration NPO Date Last Intake of Fluids: 04/20/24 Time Last Intake of Fluids: 23:00 Date Last Intake of Solids: 04/20/24 Time Last Intake of Solids: 21:00 Past Medical History Medical History Increased ammonia level History of COVID-19 11/01/21 @ [facility]--he was in the hospital for weakness and confusion and they did a COVID test and was found to be positive, states he had no symptoms of covid--no symptoms now Thrombocytopenia Tobacco abuse Depression with anxiety Osteoarthritis of right knee Esophageal varices Urinary tract infection hx, recurrent Lumbar radiculopathy Lumbar disc herniation Sacroiliitis Alcoholic cirrhosis Portal vein thrombosis hx History of hepatitis C pt states he no longer has History of alcohol abuse per pt quit 2013 Hx of thrombocytopenia Baseline platelets ~ 50-75k. 2/2 cirrhosis. Hx of encephalopathy 04/2020 [facility] Hx of gynecomastia History of anemia Hypertension Hx of ascites History of cirrhosis of liver D/T ALCOHOL Hearing deficit right ear perf eardrum Past Family History Family History Father Diabetes Other No family history of adverse response to anesthesia Past Surgical History Surgical History History of lumbar spinal fusion (~05/27/20) x2 History of esophagogastroduodenoscopy (EGD) History of colonoscopy with polypectomy 06/2022 @ [facility] Hx of decompression of ulnar nerve RIGHT History of tooth extraction all teeth removed Social History Smoking Status: Former smoker tobacco type: smokeless tobacco Do You Dip or Chew Tobacco: Yes Hx Alcohol Use: No Alcohol type: beer alcohol intake frequency: holidays/special occasions only Hx Substance Use: No substance use type: former substance user and crack/cocaine Substance Use Type Other:: hx of maijuana, hx of cocaine use several yrs ago Last Used Substance: Unknown Last Used Substance Other:: "quit the hard stuff 23yrs ago" "quit using marijuana a year ago" Physical Exam Vital Signs Last Vital Signs Temp 36.6 C 04/21/24 10:59 Pulse 96 H 04/21/24 10:59 Resp 20 04/21/24 10:59 BP 117/56 L 04/21/24 10:59 Pulse Ox 96 04/21/24 10:59 O2 Del Method Room Air 04/21/24 10:59 Testing Laboratory Results 04/21/24 07:00 04/21/24 07:00 PT 13.1 Seconds (9.0-12.0) H 04/21/24 07:00 INR 1.2 (0.9-1.1) H 04/21/24 07:00 APTT 25 Seconds (21-31) 04/18/24 20:26 Urine Color Dark Yellow 04/18/24 22:12 Urine Appearance Clear (Clear) 04/18/24 22:12 Urine pH 8.5 (4.5-7.5) H 04/18/24 22:12 Ur Specific [place] 1.015 (1.000-1.030) 04/18/24 22:12 Urine Protein Negative (Negative) 04/18/24 22:12 Urine Glucose (UA) Negative (Negative) 04/18/24 22:12 Urine Ketones Negative (Negative) 04/18/24 22:12 Urine Nitrite Positive (Negative) A 04/18/24 22:12 Ur Leukocyte Esterase Trace (Negative) H 04/18/24 22:12 Urine WBC (Auto) 6-10 /hpf (0-5) H 04/18/24 22:12 Urine RBC (Auto) 11-20 /hpf (0-2) H 04/18/24 22:12 U Hyaline Cast (Auto) 0-2 /lpf (0-2) 04/18/24 22:12 U Epithel Cells (Auto) 0-2 /hpf (0-2) 04/18/24 22:12 Urine Bacteria (Auto) None Seen (None Seen) 04/18/24 22:12 Blood Type A Positive 04/20/24 11:06 Antibody Screen NEGATIVE 04/20/24 11:06 04/18/24 22:12 Urine Culture - Final Urine,Clean Catch Staphylococcus epidermidis
[2024-04-21 12:22] LABS: Hematocrit (blood only) 37.2 % (42.0-52.0); Hemoglobin 12.9 g/dl (14.0-18.0); Mean Corpuscular Hemoglobin 32.1 pg (25.0-34.0); Mean Corpuscular Hgb Conc 34.7 g/dL (32.0-36.0); Mean Corpuscular Volume 92.5 fL (80.0-100.0); Platelet Count 80 K/uL (130-400); RDW Standard Deviation 47.5 fL (36.4-46.3); Red Blood Count 4.02 M/uL (4.70-6.10); White Blood Count 4.61 K/ul (4.8-10.8)
[2024-04-21] MEDS ORDERED: fentaNYL citrate PF 100 MCG/2 ML VIAL ONE (12:28)
[2024-04-21] MEDS ORDERED: ROCURONIUM BROMIDE 10 MG/ML 5 ML VIAL IV ONE (12:28)
[2024-04-21] MEDS ORDERED: ONDANSETRON INJ 2 MG/ML 2 ML VIAL ONE (12:28)
[2024-04-21] MEDS ORDERED: DEXAMETHASONE SOD INJ 4 MG/ML VIAL ONE (12:28)
[2024-04-21] MEDS ORDERED: PROPOFOL IV EMULSION 10 MG/ML 20 ML VIAL IV ONE (12:28)
[2024-04-21] MEDS ORDERED: LIDOCAINE 2% 2 ML VIAL/AMP(20MG/ML) INFIL ONE (12:28)
[2024-04-21] MEDS ORDERED: MIDAZOLAM HCL 1 MG/ML 2ML VIAL ONE (12:28)
[2024-04-21] MEDS ORDERED: ATROPINE SULFATE 0.1 MG/ML 10ML SYR IV PRN (12:32)
[2024-04-21] MEDS ORDERED: fentaNYL citrate PF 100 MCG/2 ML VIAL IV PRN (12:32)
[2024-04-21] MEDS ORDERED: ePHEDrine sulfate 50 MG/ML AMP IV PRN (12:32)
[2024-04-21] MEDS: TRANEXAMIC ACID / 0.7% NACL 1,000 MG/100 ML BAG IV SCH (12:38)
[2024-04-21] MEDS ORDERED: ESMOLOL HCL INJ 10 MG/ML 10ML VIAL IV ONE (12:57)
[2024-04-21] MEDS: ROPIVACAINE 0.5% HCL/PF 246 MG, Ketorolac (*for OR use only*) 30 MG, EPINEPHrine 30MG/3... INFIL SCH (13:12)
[2024-04-21] MEDS: ceFAZolin 2000MG 2,000 MG/15 ML SYR IV ONE (13:14)
[2024-04-21] MEDS ORDERED: HYDROmorphone INJ 2 MG/ML SYR/VIAL ONE (13:18)
[2024-04-21] MEDS ORDERED: ceFAZolin 330 MG/ML 1 GM VIAL ONE (13:26)
[2024-04-21] MEDS: TRANEXAMIC ACID / 0.7% NACL 1,000 MG/100 ML BAG IV ONE (14:02)
[2024-04-21] MEDS ORDERED: SUGAMMADEX SODIUM 200 MG/2 ML VIAL IV ONE (14:03)
--- NOTE | 2024-04-21 14:06 | Operative Report ---
PG Post Operative Report Pre & Post Diagnosis Operation Date: 04/21/24 07:00 Preoperative diagnosis: Chronic dysplasia and osteoarthritis of the left hip Postoperative diagnosis: Chronic dysplasia and osteoarthritis of the left hip I identified the patient and participated in the time-out.: Yes Procedure Operation Date: 04/21/24 07:00 Procedure: Left anterior total hip arthroplasty Surgeon Quinn Allen DO Animal Husbandman Eliceo Prescott PA-C Estimated Blood Loss 300 Findings Consistent with Post-Op Diagnosis Specimens Left femoral head Description of Procedure Implants used I used a [employer]immer[employer] total hip arthroplasty system with a size 1 high offset Avenir Complete stem, a 54 mm G7 cup with a 25mm screw, an E1 polyethylene liner, a 40 mm ceramic head with a +3.5 neck. Andrea arrived at the hospital for the above procedure. He was seen in the preoperative holding area and the operative extremity was identified and signed. He was given a preoperative antibiotic and TXA. He was then taken back to the operating room and laid on the table in the supine position. He was given general anesthesia. The operative leg was secured to a Puristst leg positioner. The hip was then prepped and draped in sterile fashion. A timeout was done and the patient and the operative extremity was properly identified. An anterior approach was used. Dissection was taken down through the fascia and the tensor muscle belly was retracted laterally and the rectus was retracted medially. The circumflex vessels were identified and ligated. The capsule was then incised and tagged for later repair. The femoral neck was then cut and the femoral head was removed. The acetabulum was exposed. Time was spent doing a complete circumferential labral release. Sequential reaming of the acetabulum up to a size 53 reamer was done. Final reamings were done under fluoroscopy to ensure appropriate version. A Biomet 54 mm G7 cup was then impacted into place. A single 25 mm screw was placed. The E1 polyethylene liner was then snapped into place. Surrounding soft tissues were then injected with 100 cc of an orthopedic pain control cocktail. The proximal femur was then exposed. Sequential broaching up to a size 1 broach was done. Off that broach a size 40 head with a +3.5 neck was trialed. The hip was reduced and fluoroscopic images showed anatomic alignment of the implants in acceptable length. The broach was removed. The final size 1 high offset Avenir Complete stem was then impacted into place. A ceramic 40 mm head with a +3.5 neck was then impacted onto the stem and the hip was reduced. Final fluoroscopic images showed anatomic alignment of the hip. The capsule was then closed with #1 Vicryl suture. A dilute betadyne lavage was then done for 3 minutes. The joint was then irrigated with normal saline solution. The fascia was closed with #1 PDS suture. Skin was closed with 2-0 Vicryl, tegan, and a Silverlon dressing. He was then transferred to a hospital bed and taken to the post anesthesia care unit in stable condition. He tolerated the procedure well. Eliceo Prescott PA-C, was present for the entire procedure. He was critical for tosha ent positioning, prepping, draping, retraction exposure, wound closure and application of sterile dressing. I attest to the content of the Intraoperative Record and any orders documented therein. Any exceptions are noted below.
--- NOTE | 2024-04-21 14:30 | Fluoroscopy Report ---
FL hip LT 1V CLINICAL HISTORY: LT ANTERIOR HIP COMPARISON STUDY: None FLUOROSCOPY TIME: 31 seconds FLUOROSCOPY IMAGES: 1 EXPOSURE DOSE: 3.5 mGy FINDINGS: Fluoroscopy was provided for hip prosthesis. IMPRESSION: Intraoperative fluoroscopy. ACT 112: Negative or not required by law. Electronically signed by: Mor Mcdaniel M.D. 04/21/2024 2:29 PM
--- NOTE | 2024-04-21 14:58 | XRay Report ---
XR hip 1V LT w pelvis CLINICAL HISTORY: IN PACU - Post Surgical COMPARISON: None FINDINGS: Bilateral hip prostheses show no hardware complication. There is expected soft tissue gas on the left. Skin tegan are present laterally on the left. IMPRESSION: Unremarkable postoperative exam. ACT 112: Negative or not required by law. Electronically signed by: Mor Mcdaniel M.D. 04/21/2024 2:57 PM
--- NOTE | 2024-04-21 15:07 | Anesthesiology Progress Note ---
Date of Service April 21, 2024 Anesthesia Post Procedure Vital Signs Vital Signs: Temp Pulse Pulse Resp BP Pulse Ox O2 Del Method 04/21/24 15:05 93 H 13 161/79 H 94 Room Air 04/21/24 14:55 94 H 12 153/76 H 94 Room Air 04/21/24 14:45 97 H 15 178/87 H 97 Oxymask 04/21/24 14:37 36.0 C L 98 H 20 180/86 H 100 Oxymask 04/21/24 10:59 36.6 C 96 H 20 117/56 L 96 Room Air 04/21/24 08:57 148/87 H 04/21/24 07:46 36.5 C 73 18 92/55 L 96 Room Air 04/20/24 21:06 36.8 C 93 H 16 127/70 97 Room Air 04/20/24 15:29 36.8 C 81 20 109/61 98 Room Air O2 Flow Rate 04/21/24 15:05 04/21/24 14:55 04/21/24 14:45 2 04/21/24 14:37 4 04/21/24 10:59 04/21/24 08:57 04/21/24 07:46 04/20/24 21:06 04/20/24 15:29 Pain Intensity Left Hip: Pain Intensity: 0 Transfer of Care Handoff Completed per policy Notes Mental Status: alert / awake / arousable and participated in evaluation Patient Amnestic to Procedure: Yes Nausea / Vomiting: adequately controlled Pain: adequately controlled Airway Patency, RR, SpO2: stable & adequate BP & HR: stable & adequate Hydration State: stable & adequate Anesthetic Complications: no major complications apparent and Pt Satisfied with anesthetic care
[2024-04-21] MEDS ORDERED: MAGNESIUM HYDROXIDE SUSP 30 ML UDC PO PRN (15:10)
[2024-04-21] MEDS ORDERED: METOCLOPRAMIDE HCL INJ 5 MG/ML 2 ML VIAL IV PRN (15:10)
[2024-04-21] MEDS ORDERED: NALOXONE HCL 0.4 MG/1 ML VIAL/CARP IV PRN (15:10)
[2024-04-21] MEDS ORDERED: bisacodyL 10 MG SUPP PR PRN (15:10)
[2024-04-21] MEDS: TRANEXAMIC ACID / 0.7% NACL 1000MG/100ML BAG IV ONE (15:11)
--- NOTE | 2024-04-21 16:25 | Hospitalist Progress Note ---
Date of Service April 21, 2024 Assessment & Plan (1) Ambulatory dysfunction: Plan: 64-year-old male with past medical history significant for alcoholic cirrhosis of liver without ascites, protein calorie malnutrition, GERD, portal hypertension, esophageal varices without bleeding, aortic atherosclerosis, chronic bilateral low back pain, peripheral polyneuropathy, chronic pain syndrome, pancytopenia, alcohol use disorder in remission, cocaine use disorder in remission, gynecomastia, ambulatory dysfunction, status post right hip replacement, anxiety and depression presents with severe back pain and worsening left hip pain. 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 S/p Left Total Hip Arthroplasty today Pain control PT/OT evl Alcoholic cirrhosis of liver without ascites Currently on home spironolactone and torsemide and potassium supplement Continue lactulose and Xifaxan Possible UTI Urine culture growing staph epidermidis Will continue ceftriaxone GERD On Protonix Pancytopenia From liver cirrhosis Depression and anxiety Duloxetine DVT prophylaxis on ASA 81mg BID Full code I spent a total of 50 minutes coordinating, documenting and providing care for this patient excluding time spent in performance of separately billed services Admission and Anticipated Discharge Date Admission Date: April 19, 2024 Subjective Patient seen after return from OR Currently drowsy but arousable Reports surgical site pain is well controlled Physical Exam Constitutional: + well hydrated; no acute distress Respiratory: normal respiratory effort, lungs clear to auscultation Cardiovascular: Rate/Rhythm: regular rate and regular rhythm Gastrointestinal (Abdomen): normal bowel sounds, soft, nontender, no hepatosplenomegaly Musculoskeletal: Clean dressing over left hip surgical site Neurologic: Drowsy but arousable Results & Data Results & Data Vital Signs (Past 12 Hours) Vital Signs Temp Pulse Pulse Resp BP Pulse Ox O2 Del Method 04/21/24 15:55 36.4 C L 97 H 16 126/64 93 Room Air 04/21/24 15:17 36.5 C 93 H 16 123/66 95 Room Air 04/21/24 15:05 93 H 13 161/79 H 94 Room Air 04/21/24 14:55 94 H 12 153/76 H 94 Room Air 04/21/24 14:45 97 H 15 178/87 H 97 Oxymask 04/21/24 14:37 36.0 C L 98 H 20 180/86 H 100 Oxymask 04/21/24 10:59 36.6 C 96 H 20 117/56 L 96 Room Air 04/21/24 08:57 148/87 H 04/21/24 07:46 36.5 C 73 18 92/55 L 96 Room Air O2 Flow Rate 04/21/24 15:55 04/21/24 15:17 04/21/24 15:05 04/21/24 14:55 04/21/24 14:45 2 04/21/24 14:37 4 04/21/24 10:59 04/21/24 08:57 04/21/24 07:46 Laboratory Results Abnormal lab results 04/21/24 04/21/24 Range/Units 07:00 11:44 WBC 4.78 L 4.61 L (4.8-10.8) K/ul RBC 4.08 L 4.02 L (4.70-6.10) M/uL Hgb 13.4 L 12.9 L (14.0-18.0) g/dl Hct 37.4 L 37.2 L (42.0-52.0) % RDW Std Deviation 46.4 H 47.5 H (36.4-46.3) fL Plt Count 93 L D 80 L (130-400) K/uL PT 13.1 H (9.0-12.0) Seconds INR 1.2 H (0.9-1.1) Carbon Dioxide 34 H (21-32) mmol/L Magnesium 1.5 L (1.7-2.4) mg/dl
[2024-04-21] MEDS: KETOROLAC TROMETHAMINE 15 MG/ML VIAL IV SCH (17:01)
[2024-04-21] MEDS: ceFAZolin 1000MG 1,000 MG/7.5 ML SYR IV SCH (20:38)
[2024-04-21] MEDS: SENNA 8.6 MG TAB PO SCH (20:42)
[2024-04-21] MEDS: DOCUSATE SODIUM 100 MG CAP PO SCH (20:42)
[2024-04-21] MEDS: ASPIRIN 81 MG ECTAB PO SCH (20:43)
[2024-04-22 08:21] LABS: Basophils # (auto) 0.01 K/uL (0.00-0.20); Basophils % (auto) 0.1 %; Hematocrit (blood only) 34.5 % (42.0-52.0); Hemoglobin 12.2 g/dl (14.0-18.0); Immature Granulocytes # (auto) 0.03 K/uL (0.01-0.20); Immature Granulocytes % (auto) 0.3 %; Lymphocytes % (auto) 5.9 %; Mean Corpuscular Hemoglobin 32.8 pg (25.0-34.0); Mean Corpuscular Hgb Conc 35.4 g/dL (32.0-36.0); Mean Corpuscular Volume 92.7 fL (80.0-100.0); Mean Platelet Volume 11.4 fL (9.4-12.4); Monocytes # (auto) 1.45 K/uL (0.11-0.59); Monocytes % (auto) 12.1 %; Neutrophils # (auto) 9.76 K/uL (1.40-6.50); Neutrophils % (auto) 81.6 %; Platelet Count 105 K/uL (130-400); RDW Coefficient of Variation 13.9 % (11.5-14.5); RDW Standard Deviation 47.2 fL (36.4-46.3); Red Blood Count 3.72 M/uL (4.70-6.10); White Blood Count 11.95 K/ul (4.8-10.8)
[2024-04-22 08:40] LABS: Calcium 8.8 mg/dl (8.6-10.3); Creatinine Clr Calc Pharmacy 60.7 ml/min; Potassium 4.8 mmol/L (3.5-5.1)
[2024-04-22] MEDS: dexAMETHasone 4 MG TAB PO SCH (09:26)
[2024-04-22] MEDS: MULTIVITAMIN TAB PO SCH (09:27)
--- NOTE | 2024-04-22 12:36 | Orthopedic Progress Note ---
Date of Service April 22, 2024 Assessment & Plan (1) Status post left hip replacement: Assessment: Status post left anterior total hip arthroplasty. Plan: 1. DVT prophylaxis w/ ASA 81 mg twice daily. Upon discharge continue aspirin 81 mg twice daily for 6 weeks. 2. Awaiting PT/OT evaluation and recommendations. Weightbearing as tolerated. 3. Pain well-controlled continue current regimen. 4. Medical management as per the primary medicine service. Recommendation for cefadroxil for 10 days twice daily upon discharge. 5. Continue rest, ice and elevation. Keep dressing clean and dry. Silverlon should remain in place for 7 days. 6. Patient okay for discharge from orthopedic standpoint following evaluation and recommendations from PT/OT. 7. Follow-up outpatient in orthopedic office within 2-3 weeks. Subjective .Andrea was seen and evaluated this morning resting comfortably in no apparent distress. I was in the room when physical therapy did attempt to sit him up in bed. He was tremoring a lot in which physical therapy felt it was unsafe to proceed with trying to ambulate him at that time. He notes that he is just sore down his whole left side. He has not been up and out of bed yet today. He notes his current pain analgesic regimen is working well. He denies any concerns with surgical incision sites. He denies any active bleeding, discharge, or signs of infection. Denies any other concerns today. Review of Systems All systems reviewed & are unremarkable except as noted in HPI & below. Physical Exam . On physical examination of the left hip, the surgical dressing is in place, clean, dry, intact with no signs of active bleeding, discharge, or signs of infection. No erythema, ecchymosis, edema, or other obvious deformities. Slight tenderness to palpation adjacent to the surgical site. Calf soft nontender to palpation. Negative Homans' sign. Intact plantarflexion dorsiflexion of left ankle. +2 DP and PT pulses. Less than 2-second capillary refill. Normal sensation. Vascular intact. Results & Data Results & Data Laboratory Results . Diagnostic Findings . Hip/Pelvis X-Ray 04/21/24 14:35 XR hip 1V LT w pelvis CLINICAL HISTORY: IN PACU - Post Surgical COMPARISON: None FINDINGS: Bilateral hip prostheses show no hardware complication. There is expected soft tissue gas on the left. Skin tegan are present laterally on the left. IMPRESSION: Unremarkable postoperative exam. ACT 112: Negative or not required by law. Electronically signed by: Mor Mcdaniel M.D. 04/21/2024 2:57 PM PG Care Time/CCT Total # of Minutes Spent Total Time Spent with Patient: Total time spent is greater than 50% in coordination of care (as documented) at patient's floor/unit and/or counseling patient: Coding Level of Care Code 40518 Post Operative Follow-Up Diagnoses Status post left hip replacement Z96.642
--- NOTE | 2024-04-22 13:18 | Hospitalist Progress Note ---
Date of Service April 22, 2024 Assessment & Plan (1) Ambulatory dysfunction: Plan: 64-year-old male with past medical history significant for alcoholic cirrhosis of liver without ascites, protein calorie malnutrition, GERD, portal hypertension, esophageal varices without bleeding, aortic atherosclerosis, chronic bilateral low back pain, peripheral polyneuropathy, chronic pain syndrome, pancytopenia, alcohol use disorder in remission, cocaine use disorder in remission, gynecomastia, ambulatory dysfunction, status post right hip replacement, anxiety and depression presents with severe back pain and worsening left hip pain. 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 S/p Left Total Hip Arthroplasty on 04/21/24 Pain control PT/OT eval Needs rehab Alcoholic cirrhosis of liver without ascites Currently on home spironolactone and torsemide and potassium supplement Continue lactulose and Xifaxan Reports he has been having 2-3 BM per day and refuses further doses of lactulose once he had 2 BM Possible UTI Urine culture growing staph epidermidis Will complete antibiotic tomorrow GERD On Protonix Pancytopenia From liver cirrhosis Depression and anxiety Duloxetine DVT prophylaxis on ASA 81mg BID Full code I spent a total of 50 minutes coordinating, documenting and providing care for this patient excluding time spent in performance of separately billed services Admission and Anticipated Discharge Date Admission Date: April 19, 2024 Subjective Patient seen and examined Pain at Left hip surgical site is well controlled Sitting up eating lunch. No new complaints today. Patient quite tremulous. He denied any alcohol use in past 11years. Stated he is usually shaky since he does not move around much recently due to his pain Reports he has had 2 normal BM today No other new complaints Physical Exam Constitutional: + well hydrated; no acute distress Eyes: PERRL, conjunctivae normal, anicteric sclerae ENMT: external ear and nose normal, oropharynx normal Respiratory: normal respiratory effort, lungs clear to auscultation Cardiovascular: Rate/Rhythm: regular rate and regular rhythm Gastrointestinal (Abdomen): normal bowel sounds, soft, nontender, no hepatosplenomegaly Musculoskeletal: Clean dressing over left hip Neurologic: PERRL, EOMI, accommodation nl, no face palsy, no dysarthria Psychiatric: A+Ox3, euthymic affect Results & Data Results & Data Vital Signs (Past 12 Hours) Vital Signs Temp Pulse Resp BP Pulse Ox O2 Del Method 04/22/24 07:40 36.9 C 92 H 16 126/65 95 Room Air 04/22/24 03:25 36.8 C 93 H 18 150/61 H 93 Room Air Laboratory Results Abnormal lab results 04/22/24 Range/Units 07:40 WBC 11.95 H (4.8-10.8) K/ul RBC 3.72 L (4.70-6.10) M/uL Hgb 12.2 L (14.0-18.0) g/dl Hct 34.5 L (42.0-52.0) % RDW Std Deviation 47.2 H (36.4-46.3) fL Plt Count 105 L (130-400) K/uL Neut # (Auto) 9.76 H (1.40-6.50) K/uL Lymph # (Auto) 0.70 L (1.20-3.40) K/uL [place] # (Auto) 1.45 H (0.11-0.59) K/uL Sodium 134 L (136-145) mmol/L BUN 30 H (6-23) mg/dl BUN/Creatinine Ratio 27.0 H (10-20) Glucose 118 H (70-99(Fasting)) mg/dl
[2024-04-23 07:14] LABS: Hematocrit (blood only) 26.6 % (42.0-52.0); Hemoglobin 9.4 g/dl (14.0-18.0); Mean Corpuscular Hemoglobin 32.9 pg (25.0-34.0); Mean Corpuscular Hgb Conc 35.3 g/dL (32.0-36.0); Mean Platelet Volume 11.2 fL (9.4-12.4); Platelet Count 75 K/uL (130-400); RDW Coefficient of Variation 14.2 % (11.5-14.5); RDW Standard Deviation 47.7 fL (36.4-46.3); Red Blood Count 2.86 M/uL (4.70-6.10); White Blood Count 12.32 K/ul (4.8-10.8)
[2024-04-23 07:26] LABS: BUN Creatinine Ratio 46.2 (10-20); Creatinine Clr Calc Pharmacy 64.8 ml/min; Potassium 4.8 mmol/L (3.5-5.1)
--- NOTE | 2024-04-23 09:27 | Orthopedic Progress Note ---
Date of Service April 23, 2024 Assessment & Plan (1) Status post left hip replacement: (2) Aftercare following left hip joint replacement surgery: Plan 64-year-old gentleman POD# 2 s/p left anterior total hip replacement, doing well overall. Pain is relatively well-controlled. He is neurologically intact. Plan: 1. DVT prophylaxis w/ TEDs, SCDs, ASA 81 mg BID. 2. PT/OT as tolerated. WBAT on L LE. Left anterior approach total hip precautions/protocol. 3. Pain control doing well with current pain regimen. 4. Medical management per primary service. Recommendation for cefadroxil BID for 10 days upon discharge. 5. Maintain Silverlon dressing for 7 days postop. 6. Disposition -per case management, plan to D/C to [facility] rehab facility when cleared. Okay for discharge from orthopedic standpoint. 7. F/u outpatient with Dr. Allen's team 2 to 3 weeks postop for first post-op visit. Subjective Patient is POD# 2 s/p left anterior total hip arthroplasty by Dr. Allen on 04/21/2024. Patient says he is having some operative site pain this morning, but the ordered medications are helping. Denies CP, SOB, N/V, L LE paresthesia. He is working with case management to be discharged to a rehab facility in [facility] per PT/OT recommendations; they are looking to send him to [facility], per case management. Review of Systems All systems reviewed & are unremarkable except as noted in HPI & below. Physical Exam GENERAL: AA&Ox3, NAD. Pleasant, affect is calm. Sitting in bed and appears comfortable. RESPIRATORY: Normal respiratory effort with no signs of distress. CHEST/AXILLA: Chest movement symmetrical. No deformities noted. CARDIOVASCULAR: No edema noted. SKIN: [place], warm and dry. MS/EXTREMITY: Hip Silverlon dressing c/d/i.. Thigh is soft, supple. Leg lengths are equal. + ankle dorsi/plantarflexion. NVI distally. Calf soft/NT. PT/DP pulses intact, 2+. Results & Data Results & Data Laboratory Results . Laboratory Results - last 24 hr 04/23/24 06:46 WBC 12.32 H RBC 2.86 L Hgb 9.4 L Hct 26.6 L MCV 93.0 MCH 32.9 MCHC 35.3 RDW Std Deviation 47.7 H RDW Coeff of Abhijit 14.2 Plt Count 75 L MPV 11.2 Sodium 131 L Potassium 4.8 Chloride 100 Carbon Dioxide 30 Anion Gap 1 L BUN 48 H Creatinine 1.04 Est Cr Clr Drug Dosing 64.8 eGFR 80.18 BUN/Creatinine Ratio 46.2 H Glucose 140 H Calcium 8.0 L Diagnostic Findings . Hip X-Ray 04/21/24 12:00 FL hip LT 1V CLINICAL HISTORY: LT ANTERIOR HIP COMPARISON STUDY: None FLUOROSCOPY TIME: 31 seconds FLUOROSCOPY IMAGES: 1 EXPOSURE DOSE: 3.5 mGy FINDINGS: Fluoroscopy was provided for hip prosthesis. IMPRESSION: Intraoperative fluoroscopy. ACT 112: Negative or not required by law. Electronically signed by: Mor Mcdaniel M.D. 04/21/2024 2:29 PM Hip/Pelvis X-Ray 04/21/24 14:35 XR hip 1V LT w pelvis CLINICAL HISTORY: IN PACU - Post Surgical COMPARISON: None FINDINGS: Bilateral hip prostheses show no hardware complication. There is expected soft tissue gas on the left. Skin tegan are present laterally on the left. IMPRESSION: Unremarkable postoperative exam. ACT 112: Negative or not required by law. Electronically signed by: Mor Mcdaniel M.D. 04/21/2024 2:57 PM PG Care Time/CCT Total # of Minutes Spent Total Time Spent with Patient: Total time spent is greater than 50% in coordination of care (as documented) at patient's floor/unit and/or counseling patient: Coding Diagnoses Status post left hip replacement Z96.642 Aftercare following left hip joint replacement surgery Z47.1; Z96.642
--- NOTE | 2024-04-23 10:55 | Hospitalist Progress Note ---
Date of Service April 23, 2024 Assessment & Plan (1) Ambulatory dysfunction: Plan: per previous hospitalist notes with addendum: 64-year-old male with past medical history significant for alcoholic cirrhosis of liver without ascites, protein calorie malnutrition, GERD, portal hypertension, esophageal varices without bleeding, aortic atherosclerosis, chronic bilateral low back pain, peripheral polyneuropathy, chronic pain syndrome, pancytopenia, alcohol use disorder in remission, cocaine use disorder in remission, gynecomastia, ambulatory dysfunction, status post right hip replacement, anxiety and depression presents with severe back pain and worsening left hip pain. 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 S/p Left Total Hip Arthroplasty on 04/21/24 Pain control PT/OT eval Needs rehab 04/23 Doing well postop Having some low back pain today-chronic as per patient Start with Lidoderm patch Continue other as needed pain medication Alcoholic cirrhosis of liver without ascites Currently on home spironolactone and torsemide and potassium supplement Continue lactulose and Xifaxan Reports he has been having 2-3 BM per day and refuses further doses of lactulose once he had 2 BM Tremors are better today Possible UTI Urine culture growing staph epidermidis Last day of antibiotic today GERD On Protonix Pancytopenia From liver cirrhosis Depression and anxiety Duloxetine DVT prophylaxis on ASA 81mg BID Full code Disposition Anticipated transition to acute rehab, likely tomorrow Admission and Anticipated Discharge Date Admission Date: April 19, 2024 Subjective Follow-up for status post left hip arthroplasty, etc. Seen sitting up in bed, comfortable, not in distress Reports he is having some low back pain today No radiation to the lower extremities, no numbness or tingling Pain over the surgical site is manageable No dizziness, headache, shortness of breath, chest pain, abdominal pain, nausea vomiting No other new symptoms Review of Systems Review of Systems: all noted and negative except for above Physical Exam Physical Exam: General- oriented x 3, not in distress, speaks in sentences with no effort or accessory muscle use Eyes- anicteric Neck- no JVD Lungs- clear breath sounds bilaterally, no rales/wheezes Heart- normal rate, regular rhythm; no murmurs Abdomen- normal bowel sounds, nondistended, soft, nontender Extremities- no pretibial edema, no calf tenderness Left hip: Dressing in place, no bleeding or discharge, mild edema, no erythema or hematoma Neuro- alert, oriented x 3; no gross focal neurologic deficits Skin- warm & dry Results & Data Results & Data Vital Signs (Past 12 Hours) Vital Signs Temp Pulse Resp BP Pulse Ox O2 Del Method 04/23/24 09:51 93 H 161/70 H 04/23/24 07:41 36.5 C 83 16 119/55 L 96 Room Air all noted and reviewed including below
[2024-04-23] MEDS: LIDOCAINE 5% 1 PATCH TD SCH (13:01)
--- NOTE | 2024-04-24 07:35 | Orthopedic Progress Note ---
Date of Service April 24, 2024 Assessment & Plan (1) Status post left hip replacement: continue PT/OT, wbat dvt prophylaxis including aspirin d/c planning: he's hoping to get into rehab. should follow up in the office 2-3 weeks post op. Subjective . 64 year old patient POD 3 from left anterior [place]olis with Dr Allen. Having some left hip pain and was asking about an increased dose of oxycodone. He does have Dilaudid ordered as well. Has been out of bed and ambulating some. Review of Systems All systems reviewed & are unremarkable except as noted in HPI & below. Physical Exam .alert, NAD, was sitting on side of his bed, trying to get dressed this morning. Left leg: Dressing clean, dry, intact. Some bruising and swelling of the thigh. Compartments soft. Able to dorsiflex and plantarflex. NVI Results & Data Results & Data Laboratory Results . Diagnostic Findings . PG Care Time/CCT Total # of Minutes Spent Total Time Spent with Patient: Total time spent is greater than 50% in coordination of care (as documented) at patient's floor/unit and/or counseling patient: Coding Level of Care Code 51638 Post Operative Follow-Up Diagnoses Status post left hip replacement Z96.642
[2024-04-24 10:43] LABS: Basophils # (auto) 0.01 K/uL (0.00-0.20); Basophils % (auto) 0.1 %; Eosinophils # (auto) 0.05 K/uL (0.00-0.50); Eosinophils % (auto) 0.6 %; Hematocrit (blood only) 28.3 % (42.0-52.0); Hemoglobin 9.8 g/dl (14.0-18.0); Immature Granulocytes # (auto) 0.02 K/uL (0.01-0.20); Immature Granulocytes % (auto) 0.3 %; Lymphocytes # (auto) 1.34 K/uL (1.20-3.40); Lymphocytes % (auto) 16.8 %; Mean Corpuscular Hemoglobin 33.1 pg (25.0-34.0); Mean Corpuscular Hgb Conc 34.6 g/dL (32.0-36.0); Mean Corpuscular Volume 95.6 fL (80.0-100.0); Mean Platelet Volume 11.2 fL (9.4-12.4); Monocytes # (auto) 1.26 K/uL (0.11-0.59); Monocytes % (auto) 15.8 %; Neutrophils # (auto) 5.32 K/uL (1.40-6.50); Neutrophils % (auto) 66.4 %; Platelet Count 85 K/uL (130-400); RDW Coefficient of Variation 14.5 % (11.5-14.5); RDW Standard Deviation 50.3 fL (36.4-46.3); Red Blood Count 2.96 M/uL (4.70-6.10)
[2024-04-24 11:06] LABS: BUN Creatinine Ratio 43.9 (10-20); Calcium 7.9 mg/dl (8.6-10.3); Creatinine Clr Calc Pharmacy 82.1 ml/min; Potassium 3.7 mmol/L (3.5-5.1)
--- NOTE | 2024-04-24 15:31 | Hospitalist Progress Note ---
Date of Service April 24, 2024 Assessment & Plan (1) Ambulatory dysfunction: Plan: per previous hospitalist notes with addendum: 64-year-old male with past medical history significant for alcoholic cirrhosis of liver without ascites, protein calorie malnutrition, GERD, portal hypertension, esophageal varices without bleeding, aortic atherosclerosis, chronic bilateral low back pain, peripheral polyneuropathy, chronic pain syndrome, pancytopenia, alcohol use disorder in remission, cocaine use disorder in remission, gynecomastia, ambulatory dysfunction, status post right hip replacement, anxiety and depression presents with severe back pain and worsening left hip pain. 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 S/p Left Total Hip Arthroplasty on 04/21/24 Pain control PT/OT eval Needs rehab 04/23 Doing well postop Having some low back pain today-chronic as per patient Start with Lidoderm patch Continue other as needed pain medication 04/24 stable overall continue pain meds PRN on ASA BID for DVT prophylaxis per Ortho Alcoholic cirrhosis of liver without ascites Currently on home spironolactone and torsemide and potassium supplement Continue lactulose and Xifaxan Reports he has been having 2-3 BM per day and refuses further doses of lactulose once he had 2 BM Tremors are better today Possible UTI Urine culture growing staph epidermidis Last day of antibiotic today GERD On Protonix - denies urinary symptoms Pancytopenia From liver cirrhosis Depression and anxiety Duloxetine DVT prophylaxis on ASA 81mg BID Full code Disposition Anticipated transition to acute rehab, likely tomorrow Admission and Anticipated Discharge Date Admission Date: April 19, 2024 Subjective ff up s/p L hip arthroplasty, etc seen resting in bed, comfortable states L hip pain is a little worse today back pain about the same denies leg weakness or numbness no other symptoms Review of Systems Review of Systems: all noted and negative except for above Physical Exam Physical Exam: General- oriented x 3, not in distress, speaks in sentences with no effort or accessory muscle use Eyes- anicteric Neck- no JVD Lungs- clear breath sounds bilaterally, no rales/wheezes Heart- normal rate, regular rhythm; no murmurs Abdomen- normal bowel sounds, nondistended, soft, nontender Extremities- no pretibial edema, no calf tenderness L hip: dressing in place- no bleeding or discharge Neuro- alert, oriented x 3; no gross focal neurologic deficits Skin- warm & dry Results & Data Results & Data Vital Signs (Past 12 Hours) Vital Signs Temp Pulse Resp BP Pulse Ox O2 Del Method 04/24/24 07:54 36.5 C 64 18 102/48 L 97 Room Air all noted and reviewed including below
--- NOTE | 2024-04-25 10:33 | Orthopedic Progress Note ---
Date of Service April 25, 2024 Assessment & Plan (1) Status post left hip replacement: POD 4 from a left anterior total hip arthroplasty by Dr. Allen. -Follow-up as an outpatient in Dr. Allen's clinic for 2 3 postop check. -Several on dressing to stay on for 7 days. It can then be removed. If it comes off sooner, please place a clean dressing until postop day 7. -Per case management note on 04/24/2024, there is an authorization still pending to [facility]. -Weightbearing as tolerated and range of motion as tolerated. Continue to work with PT/OT for mobilization. -Teds, SCDs and 81 mg aspirin twice daily for DVT prophylaxis. Subjective Operation Date: 04/21/24 07:00 Procedure: Left anterior total hip arthroplasty Patient is postop day 4 from a left anterior total hip arthroplasty by Dr. Gage cruz. He is being followed by the hospitalist team. He states he is doing well. On my visit today, Occupational Therapy was coming to work with him. He seems to be mobilizing well. Continues to ask for increased doses of his pain medications. Review of Systems All systems reviewed & are unremarkable except as noted in HPI & below. Physical Exam General: Alert and oriented. No acute distress. He was sitting on the side of his bed today getting ready to work with occupational therapy. Left lower extremity: Dressing is clean and dry. The top portion of the dressing is starting to peel back, however it is not expose the wound yet. There is no saturation. Does have some swelling of the thigh. Compartments continue to be soft. He is able to dorsiflex and plantarflex Results & Data Results & Data Laboratory Results . Diagnostic Findings . PG Care Time/CCT Total # of Minutes Spent Total Time Spent with Patient: Total time spent is greater than 50% in coordination of care (as documented) at patient's floor/unit and/or counseling patient: Coding Diagnoses Status post left hip replacement Z96.642
--- NOTE | 2024-04-25 15:36 | Hospitalist Progress Note ---
Date of Service April 25, 2024 Assessment & Plan (1) Ambulatory dysfunction: Plan: per previous hospitalist notes with addendum: 64-year-old male with past medical history significant for alcoholic cirrhosis of liver without ascites, protein calorie malnutrition, GERD, portal hypertension, esophageal varices without bleeding, aortic atherosclerosis, chronic bilateral low back pain, peripheral polyneuropathy, chronic pain syndrome, pancytopenia, alcohol use disorder in remission, cocaine use disorder in remission, gynecomastia, ambulatory dysfunction, status post right hip replacement, anxiety and depression presents with severe back pain and worsening left hip pain. 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 S/p Left Total Hip Arthroplasty on 04/21/24 Pain control PT/OT eval Needs rehab 04/23 Doing well postop Having some low back pain today-chronic as per patient Start with Lidoderm patch Continue other as needed pain medication 04/24 stable overall continue pain meds PRN on ASA BID for DVT prophylaxis per Ortho 04/25 remains stable participating with PT continue present regimen Alcoholic cirrhosis of liver without ascites Currently on home spironolactone and torsemide and potassium supplement Continue lactulose and Xifaxan Reports he has been having 2-3 BM per day and refuses further doses of lactulose once he had 2 BM Tremors improving Possible UTI Urine culture growing staph epidermidis completed IV Ceftriaxone course GERD On Protonix - denies urinary symptoms Pancytopenia From liver cirrhosis Depression and anxiety Duloxetine DVT prophylaxis on ASA 81mg BID Full code Disposition Anticipated transition to acute rehab, when accepted Admission and Anticipated Discharge Date Admission Date: April 19, 2024 Subjective ff up for s/p hip arthroplasty, etc seen at bedside PT in progress- motivated to participate states he feels fine overall Hip pain manageable no chest pain, dyspnea, palpitations, dizziness no other new symptoms Review of Systems Review of Systems: all noted and negative except for above Physical Exam Physical Exam: General- oriented x 3, not in distress, speaks in sentences with no effort or accessory muscle use Eyes- anicteric Neck- no JVD Lungs- clear breath sounds bilaterally, no rales/wheezes Heart- normal rate, regular rhythm; no murmurs (+) PACs Abdomen- normal bowel sounds, nondistended, soft, nontender Extremities- no pretibial edema, no calf tenderness L hip: dressing in place- no bleeding, discharge minimal edema Neuro- alert, oriented x 3; no gross focal neurologic deficits Skin- warm & dry Results & Data Results & Data Vital Signs (Past 12 Hours) Vital Signs Temp Pulse Resp BP Pulse Ox O2 Del Method 04/25/24 13:23 36.7 C 72 16 134/66 98 Room Air 04/25/24 09:19 Room Air 04/25/24 08:12 36.3 C L 77 16 135/66 100 Room Air all noted and reviewed including below
[2024-04-25 20:00] VITALS: RESP 18; TEMP 97.7
--- NOTE | 2024-04-25 20:36 | Electrocardiogram Report ---
Test Reason : Blood Pressure : */* mmHG Vent. Rate : 71 BPM Atrial Rate : 71 BPM P-R Int : 158 ms QRS Dur : 98 ms QT Int : 428 ms P-R-T Axes : 69 60 62 degrees QTcB Int : 465 ms Sinus rhythm with Premature atrial complexes Otherwise normal ECG When compared with ECG of 18-Apr-2024 21:16, Premature atrial complexes are now Present Confirmed by Rey Edwards [id number] on 04/25/2024 8:36:21 PM Referred By: REFERRED SELF Confirmed By: Rey Edwards
[2024-04-25] MEDS: ONDANSETRON INJ 2 MG/ML 2 ML VIAL IV PRN (21:05)
[2024-04-26 07:14] VITALS: BP 167/77; PULSE 74; O2SAT 96
[2024-04-26] MEDS: CALCIUM CARBONATE 500 MG CHEWABLE TAB PO PRN (08:35)
--- NOTE | 2024-04-26 12:52 | Discharge Summary ---
Discharge Summary Date of Service April 26, 2024 Principal Dx & Hospital Course #1 = Principal Diagnosis (1) Ambulatory dysfunction: per previous hospitalist notes with addendum: 64-year-old male with past medical history significant for alcoholic cirrhosis of liver without ascites, protein calorie malnutrition, GERD, portal hypertension, esophageal varices without bleeding, aortic atherosclerosis, chronic bilateral low back pain, peripheral polyneuropathy, chronic pain syndrome, pancytopenia, alcohol use disorder in remission, cocaine use disorder in remission, gynecomastia, ambulatory dysfunction, status post right hip replacement, anxiety and depression presents with severe back pain and worsening left hip pain. 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 S/p Left Total Hip Arthroplasty on 04/21/2404/26 Doing well postop Ortho recommendations: Follow-up as an outpatient in Dr. Allen's clinic for 2 3 postop check. -Several on dressing to stay on for 7 days. It can then be removed. If it comes off sooner, please place a clean dressing until postop day 7. -Weightbearing as tolerated and range of motion as tolerated. Continue to work with PT/OT for mobilization. -Teds, SCDs and 81 mg aspirin twice daily for DVT prophylaxis. Lidoderm patch for back pain Alcoholic cirrhosis of liver without ascites Currently on home spironolactone and torsemide and potassium supplement Continue lactulose and Xifaxan Reports he has been having 2-3 BM per day and refuses further doses of lactulose once he had 2 BM Tremors improving UTI Urine culture growing staph epidermidis completed IV Ceftriaxone course - denies urinary symptoms GERD On Protonix Pancytopenia From liver cirrhosis stable monitor Depression and anxiety Duloxetine DVT prophylaxis on ASA 81mg BID Full code Disposition transition to acute rehab Notes For Next Care Provider Medication Changes From Visit per med rec Admission HPI Per Admitting Provider 64-year-old male with past medical history significant for alcoholic cirrhosis of liver without ascites, protein calorie malnutrition, GERD, portal hypertension, esophageal varices without bleeding, aortic atherosclerosis, chronic bilateral low back pain, peripheral polyneuropathy, chronic pain syndrome, pancytopenia, alcohol use disorder in remission, cocaine use disorder in remission, gynecomastia, ambulatory dysfunction, status post right hip replacement, anxiety and depression presents with severe back pain and bilateral hip pain. Patient has chronic back pain and hip pain but seems getting worse. Last night he could not sleep because of pain. Yesterday while walking he slipped on a wood piece and fell and has some injury to the right arm. Did not hit his head. No loss of consciousness. And today could not ambulate much because of pain. He has a walker and scooter at home. He also uses cane. He has a friend who helps him. Denies any fever. Says he is moving bowels few times a day and so not using lactulose. Micturating okay. Appetite is okay. No difficulty swallowing. Denies abdominal pain. No nausea. No chest pain or shortness of breath. Has a mild headache. Vision is not that great. Has chronic cough. No runny nose or sore throat. Hemodynamics are okay. Past medical history. As mentioned above. Past surgical history. Abdominal paracentesis. Colonoscopy. Dental surgery. EGD. Sacroiliac joint injection. Right total hip replacement. Social history. . Quit smoking 1979. Smoked 0.5 pack a day for 15 years. Says currently chews tobacco and is trying to quit it. Last alcohol use in 2013. Stopped crack and marijuana prior to 1979. Family history. Sister has alcoholism. Mother had lymphoma. Daughter has cirrhosis. Father had diabetes. Admission Exam Per Admitting Provider General- Not in distress. Head- atraumatic Eyes- PERRL. ENT- oropharynx clear Neck- supple, no JVD. Lungs- clear to auscultation no wheezing or crackles Heart- regular rate and rhythm; no murmur, no gallop. Abdomen- normal bowel sounds, soft, nontender, no distension Extremities- no pretibial edema, right arm in dressing. painful movement of left lower extremity Neuro- alert, oriented PERRL, no facial palsy; no dysarthria; obeys simple commands Discharge Exam General- oriented x 3, not in distress, speaks in sentences with no effort or accessory muscle use Eyes- anicteric Neck- no JVD Lungs- clear breath sounds bilaterally, no rales/wheezes Heart- normal rate, regular rhythm; no murmurs (+) PACs Abdomen- normal bowel sounds, nondistended, soft, nontender Extremities- no pretibial edema, no calf tenderness L hip: dressing in place- no bleeding, discharge minimal edema Neuro- alert, oriented x 3; no gross focal neurologic deficits Skin- warm & dry Updated Medication List Medication Instructions Recorded Confirmed Type albuterol sulfate 90 mcg/actuation 2 puff inhalation Q4H PRN 04/26/24 Rx aerosol inhaler Shortness Of Breath Or Wheezing #6.7 grams aspirin 81 mg tablet,delayed 81 mg PO BID 6 weeks #84 tabs 04/26/24 Rx release baclofen 10 mg tablet 10 mg PO TID PRN back spasms #20 04/26/24 Rx tabs calcium carbonate (Tums E-X) 300 mg PO TID PRN heart burn #14 04/26/24 Rx tabs docusate sodium 100 mg capsule 100 mg PO BID 14 days #28 caps 04/26/24 Rx duloxetine 60 mg capsule,delayed 60 mg PO DAILY 14 days #14 caps 04/26/24 Rx release folic acid 1 mg tablet 1 mg PO DAILY 14 days #14 tabs 04/26/24 Rx gabapentin 100 mg capsule 100 mg PO BID 14 days #28 caps 04/26/24 Rx lactulose 20 gram oral packet 20 g PO TID 14 days #45 ea 04/26/24 Rx (Kristalose) lidocaine 5 % topical patch 1 patch transdermal QAM 15 days 04/26/24 Rx #15 ea multivitamin with folic acid 400 1 tab PO QAM 14 days #14 tabs 04/26/24 Rx mcg tablet (Daily-Josue (with folic acid)) oxycodone 5 mg tablet 5 mg PO Q4H PRN moderate-severe 04/26/24 Rx pain #30 tabs pantoprazole 40 mg tablet,delayed 40 mg PO DAILY 14 days #14 tabs 04/26/24 Rx release (Protonix) potassium chloride 20 mEq oral 20 meq PO DAILY 14 days #14 ea 04/26/24 Rx packet rifaximin 550 mg tablet (Xifaxan) 550 mg PO TID 14 days #42 tabs 04/26/24 Rx sennosides 8.6 mg tablet (Senokot) 17.2 mg (2 x 8.6 mg) PO HS 14 days 04/26/24 Rx #28 tabs spironolactone 100 mg tablet 100 mg PO DAILY #14 tabs 04/26/24 Rx thiamine HCl (vitamin B1) 100 mg 100 mg PO DAILY 14 days #14 tabs 04/26/24 Rx tablet torsemide 20 mg tablet 20 mg PO BID 14 days #28 tabs 04/26/24 Rx valacyclovir 1 gram tablet 1,000 mg PO DAILY 14 days #14 tabs 04/26/24 Rx Hospital Stay Data Consultations 04/19/24 08:00 Consult Orthopedic Spine Surgery Routine Consult Orthopedic Surgery Routine Procedures Performed Operation Date: 04/21/24 07:00 Actual Procedures p Left Total Hip Arthroplasty Anterior(Left) - Quinn Allen, Diagnostic Imagining Performed Laboratory Results WBC 8.00 K/ul (4.8-10.8) 04/24/24 10:08 RBC 2.96 M/uL (4.70-6.10) L 04/24/24 10:08 Hgb 9.8 g/dl (14.0-18.0) L 04/24/24 10:08 Hct 28.3 % (42.0-52.0) L 04/24/24 10:08 MCV 95.6 fL (80.0-100.0) 04/24/24 10:08 MCH 33.1 pg (25.0-34.0) 04/24/24 10:08 MCHC 34.6 g/dL (32.0-36.0) 04/24/24 10:08 RDW Std Deviation 50.3 fL (36.4-46.3) H 04/24/24 10:08 RDW Coeff of Abhijit 14.5 % (11.5-14.5) 04/24/24 10:08 Plt Count 85 K/uL (130-400) L 04/24/24 10:08 MPV 11.2 fL (9.4-12.4) 04/24/24 10:08 Immature Gran % (Auto) 0.3 % 04/24/24 10:08 Neut % (Auto) 66.4 % 04/24/24 10:08 Lymph % (Auto) 16.8 % 04/24/24 10:08 Lee % (Auto) 15.8 % 04/24/24 10:08 Eos % (Auto) 0.6 % 04/24/24 10:08 Baso % (Auto) 0.1 % 04/24/24 10:08 Neut # (Auto) 5.32 K/uL (1.40-6.50) 04/24/24 10:08 Lymph # (Auto) 1.34 K/uL (1.20-3.40) 04/24/24 10:08 Lee # (Auto) 1.26 K/uL (0.11-0.59) H 04/24/24 10:08 Eos # (Auto) 0.05 K/uL (0.00-0.50) 04/24/24 10:08 Baso # (Auto) 0.01 K/uL (0.00-0.20) 04/24/24 10:08 Immature Gran # (Auto) 0.02 K/uL (0.01-0.20) 04/24/24 10:08 ESR 10 mm/hr (0-20) 04/19/24 07:03 PT 13.1 Seconds (9.0-12.0) H 04/21/24 07:00 INR 1.2 (0.9-1.1) H 04/21/24 07:00 APTT 25 Seconds (21-31) 04/18/24 20:26 PTT Ratio 0.9 04/18/24 20:26 Sodium 136 mmol/L (136-145) 04/24/24 10:08 Potassium 3.7 mmol/L (3.5-5.1) D 04/24/24 10:08 Chloride 101 mmol/L (98-107) 04/24/24 10:08 Carbon Dioxide 32 mmol/L (21-32) 04/24/24 10:08 Anion Gap 3 (3-11) 04/24/24 10:08 BUN 36 mg/dl (6-23) H 04/24/24 10:08 Creatinine 0.82 mg/dl (0.6-1.4) 04/24/24 10:08 Est Cr Clr Drug Dosing 82.1 ml/min 04/24/24 10:08 eGFR 98.09 04/24/24 10:08 BUN/Creatinine Ratio 43.9 (10-20) H 04/24/24 10:08 Glucose 147 mg/dl (70-99(Fasting)) H 04/24/24 10:08 Calcium 7.9 mg/dl (8.6-10.3) L 04/24/24 10:08 Phosphorus 4.7 mg/dl (2.5-4.9) 04/21/24 07:00 Magnesium 2.0 mg/dl (1.7-2.4) 04/22/24 07:40 Total Bilirubin 1.5 mg/dl (0.2-1.0) H 04/19/24 07:03 Direct Bilirubin 0.3 mg/dl (0-0.2) H 04/19/24 07:03 AST 34 U/L (13-39) 04/19/24 07:03 ALT 16 U/L (7-52) 04/19/24 07:03 Alkaline Phosphatase 90 U/L (34-104) 04/19/24 07:03 Ammonia 76.0 umol/L (18-72) H 04/19/24 07:03 Total Creatine Kinase 90 U/L (30-223) 04/18/24 20:26 Troponin I High Sens 9.5 pg/ml (0-20) 04/18/24 20:26 C-Reactive Protein 0.53 mg/dl (0-0.5) H 04/19/24 07:03 Total Protein 5.3 gm/dl (6.0-8.3) L 04/19/24 07:03 Albumin 2.8 gm/dl (3.4-5.0) L 04/19/24 07:03 Globulin 2.9 gm/dl (2.5-4.0) 04/18/24 20:26 Albumin/Globulin Ratio 1.1 (0.9-2) 04/18/24 20: Lipase 42 U/L (11-82) 04/18/24 20: TSH 0.036 uIu/ml (0.300-4.500) L 04/18/24 20: Free T4 1.35 ng/dl (0.61-1.60) 04/18/24 20: Urine Color Dark Yellow 04/18/24 22:12 Urine Appearance Clear (Clear) 04/18/24 22:12 Urine pH 8.5 (4.5-7.5) H 04/18/24 22:12 Ur Specific [place] 1.015 (1.000-1.030) 04/18/24 22:12 Urine Protein Negative (Negative) 04/18/24 22:12 Urine Glucose (UA) Negative (Negative) 04/18/24 22:12 Urine Ketones Negative (Negative) 04/18/24 22:12 Urine Blood 1+ (Negative) H 04/18/24 22:12 Urine Nitrite Positive (Negative) A 04/18/24 22:12 Urine Bilirubin Negative (Negative) 04/18/24 22:12 Urine Urobilinogen Negative (Negative) 04/18/24 22:12 Ur Leukocyte Esterase Trace (Negative) H 04/18/24 22:12 Urine WBC (Auto) 6-10 /hpf (0-5) H 04/18/24 22:12 Urine RBC (Auto) 11-20 /hpf (0-2) H 04/18/24 22:12 U Hyaline Cast (Auto) 0-2 /lpf (0-2) 04/18/24 22:12 U Epithel Cells (Auto) 0-2 /hpf (0-2) 04/18/24 22:12 Urine Bacteria (Auto) None Seen (None Seen) 04/18/24 22:12 Ethyl Alcohol mg/dL < 10.0 mg/dl (<10.0) 04/18/24 21:40 Blood Type A Positive 04/20/24 11:06 Antibody Screen NEGATIVE 04/20/24 11:[address] 04/18/24 21:01 Exam(s): CT L SPINE EXAM: CT Lumbar Spine Without Intravenous Contrast CLINICAL HISTORY: Reason for exam: fall. TECHNIQUE: Axial computed tomography images of the lumbar spine without intravenous contrast. CTDI is 56 mGy and DLP is 749 mGy-cm. Automated exposure control was utilized for the study. A dose lowering technique was utilized adhering to the principles of ALARA. COMPARISON: Prior CT scan of the lumbar spine from November 03, 2021. FINDINGS: Vertebrae: Bilateral S1 pars defects. Right L5 pedicle and left facet fractures. Status post posterior interbody fusion of L4 and L5 with transfer Screws and connecting rods in place. No acute fracture. Discs/spinal canal/neural foramina: No acute findings. No spinal canal stenosis. Soft tissues: Left nephrolithiasis. IMPRESSION: No evidence of acute lumbar spine pathology. Electronically signed by: Trupti Park MD 04/18/24 23:31 PM Chest X-Ray 04/18/24 21:02 Exam(s): XR CXR 1 VIEW EXAM: XR Chest, 1 View CLINICAL HISTORY: Reason for exam: weakness. TECHNIQUE: Frontal view of the chest. COMPARISON: Chest ON the 2023. FINDINGS: Lungs: Unremarkable. No acute infiltration, atelectasis or mass. Pleural space: Unremarkable. No pneumothorax or pleural fluid. Heart: Unremarkable. No cardiomegaly. Mediastinum: Unremarkable. Normal mediastinal contour. Bones/joints: No acute findings. IMPRESSION: No acute findings in the chest. Electronically signed by: Vishnu Nunez MD 04/19/24 00:[address] 04/18/24 21:02 Exam(s): CT HEAD Without Contrast EXAM: CT Head Without Intravenous Contrast CLINICAL HISTORY: Reason for exam: fall. TECHNIQUE: Axial computed tomography images of the head/brain without intravenous contrast. CTDI is 56 mGy and DLP is 749 mGy-cm. Automated exposure control was utilized for the study. A dose lowering technique was utilized adhering to the principles of ALARA. COMPARISON: Prior head CT from August 29, 2023. FINDINGS: Brain: Unremarkable. No hemorrhage. No significant white matter disease. No edema. Ventricles: Moderate ventriculomegaly. Bones/joints: Unremarkable. No acute fracture. Soft tissues: Unremarkable. Sinuses: Unremarkable as visualized. No acute sinusitis. Mastoid air cells: Unremarkable as visualized. No mastoid effusion. IMPRESSION: No evidence of acute intracranial pathology. Electronically signed by: Trupti Park MD 04/18/24 23:[address] 04/19/24 10:59 HISTORY: Left hip pain. TECHNIQUE: 3D volumetric reformats of the left hip are provided, which are reconstructed from the dedicated CT of thepelvis. The studies are read in conjunction. COMPARISON: Bilateral hip radiographs dated 11/03/2021. FINDINGS: Partially included lower lumbar fusion hardware. The sacrum appears intact. Moderate osteoarthritis of the sacroiliac joints. Mild osteoarthritis of the pubic symphysis. The inferior and superior pubic rami appear intact. Left hip dysplasia is noted. Severe arthrosis of the left hip. There is subchondral sclerosis. There are extensive subchondral lucency about the superior lateral femoral head with associated subchondral insufficiency fracture with depression of the articular surface. The left femoral neck and visible proximal femur appear intact. There is no acute fracture of the left acetabulum. Right hip arthroplasty without obvious complication.Severe arthrosis of the lower lumbar spine. Chronic bilateral L5 pars defects.The intrapelvic soft tissues demonstrate no acute findings. There is a large left hip joint effusion. IMPRESSION: * Severe left hip dysplasia with anterolateral subluxation of the femoral head relative to the acetabulum. Severe/end-stage arthrosis of the left hip is present with extensive lucency of the femoral head articular surface with associated acute appearing subchondral insufficiency fracture resulting in articular surface depression. Articular surface lucency could be due to subchondral cystic change in the setting of severe/end-stage osteoarthritis, sequelae of avascular necrosis, or less likely infection or inflammatory arthropathy. Large left hip joint effusion. * Right hip arthroplasty without obvious complication. * Moderate osteoarthritis of the sacroiliac joints and pubic symphysis. * Severe degenerative spondylosis of the lower lumbar spine and lumbosacral junction. Chronic bilateral L5 pars defects. Electronically signed by Diomedes Pelletier 04-19-2024 2:[address] 04/19/24 11:07 HISTORY: Left hip pain. TECHNIQUE: CT imaging of thePelvis and left hip. Images are presented in axial, sagittal, coronal reformats. COMPARISON: Bilateral hip radiographs dated 11/03/2021. FINDINGS: Partially included lower lumbar fusion hardware. The sacrum appears intact. Moderate osteoarthritis of the sacroiliac joints. Mild osteoarthritis of the pubic symphysis. The inferior and superior pubic rami appear intact. Left hip dysplasia is noted. Severe arthrosis of the left hip. There is subchondral sclerosis. There are extensive subchondral lucency about the superior lateral femoral head with associated subchondral insufficiency fracture with depression of the articular surface. The left femoral neck and visible proximal femur appear intact. There is no acute fracture of the left acetabulum. Right hip arthroplasty without obvious complication.Severe arthrosis of the lower lumbar spine. Chronic bilateral L5 pars defects.The intrapelvic soft tissues demonstrate no acute findings. There is a large left hip joint effusion. IMPRESSION: * Severe left hip dysplasia with anterolateral subluxation of the femoral head relative to the acetabulum. Severe/end-stage arthrosis of the left hip is present with extensive lucency of the femoral head articular surface with associated acute appearing subchondral insufficiency fracture resulting in articular surface depression. Articular surface lucency could be due to subchondral cystic change in the setting of severe/end-stage osteoarthritis, sequelae of avascular necrosis, or less likely infection or inflammatory arthropathy. Large left hip joint effusion. * Right hip arthroplasty without obvious complication. * Moderate osteoarthritis of the sacroiliac joints and pubic symphysis. * Severe degenerative spondylosis of the lower lumbar spine and lumbosacral junction. Chronic bilateral L5 pars defects. Electronically signed by Diomedes Pelletier 04-19-2024 12:53 PM Hip X-Ray 04/21/24 12:00 FL hip LT 1V CLINICAL HISTORY: LT ANTERIOR HIP COMPARISON STUDY: None FLUOROSCOPY TIME: 31 seconds FLUOROSCOPY IMAGES: 1 EXPOSURE DOSE: 3.5 mGy FINDINGS: Fluoroscopy was provided for hip prosthesis. IMPRESSION: Intraoperative fluoroscopy. ACT 112: Negative or not required by law. Electronically signed by: Mor Mcdaniel M.D. 04/21/2024 2:29 PM Hip/Pelvis X-Ray 04/21/24 14:35 XR hip 1V LT w pelvis CLINICAL HISTORY: IN PACU - Post Surgical COMPARISON: None FINDINGS: Bilateral hip prostheses show no hardware complication. There is expected soft tissue gas on the left. Skin tegan are present laterally on the left. IMPRESSION: Unremarkable postoperative exam. ACT 112: Negative or not required by law. Electronically signed by: Mor Mcdaniel M.D. 04/21/2024 2:57 PM Pending Results Patient Have Any Pending Studies at Discharge: No Discharge Instructions Given to Patient (Per Discharging Provider) Please refer to accompanying hospital discharge summary. Total Time Total Time Spent Total Time Spent (In Minutes): 35 minutes
== END 2024-04-26 13:15 | DRG 470 ==
LOC: ED 20:13 → SUATTDRO 04-19 01:24 → 3W 04-19 01:24

== ENCOUNTER 2024-06-22 03:14 | Observation (INO) ==
--- OUTSIDE RECORDS SUMMARY | 2024-06-22 03:20 | External Medical Summary | Summary of Care ---
Author Name Unknown Organization [facility] Address [address] [place] [address] Phone [phone] Care Team Providers Care Dry House Operator Name Role Phone Najma Garcia MD Primary Care Provide r Encounter Details Date Type Department Care Team (Late st Contact Info) Description 05/16/2024 Orders Only Family Medicine [address] [id number] Najma Garcia MD [address] [place] [address] [place] [address] Allergies No known active allergiesdocumented as of this encounter (statuses as of 05/16/2024) Medications Nerve Stimulator (CLEVER CHOICE TENS UNIT) [...] twice daily 100 g 1 4 Active Kristalose 20 GM Oral Packet [...] THE MORNING 90 Tablet 1 5 Active Ondansetron 4 MG Oral Tablet Disintegrating (Zofran) DISSOLVE ONE TABLET IN MOUTH EVERY SIX HOURS NEEDED 30 Tablet 5 Active documented as of this encounter (statuses as of 05/16/2024) Active Problems Problem Noted Date Diagnosed Date [...] Grade 1-2 [] Grade 3-4 *A total Ntskr-Oakdfgzl-Gvlq score of 5 to 6 is considered [...] Assessment & Plan (04/06/2021 11:42 AM EST): [facility] RNCM Call: Reviewed case w/ [...] as of this encounter (statuses as of 05/16/2024) Resolved Problems Problem Noted Date Diagnosed Date [...] evening and using a TENS unit. Recommendations: · Imaging ordered for the right shoulder. Intake please forward to the appropriate imaging company · Patient is not on any blood anticoagulants. May continue with 1 ibuprofen and 1 Tylenol every 6-8 hours as needed with food. · Moist heat to the area for 10-15 minutes 3 times a day · Though this is most likely muscular in [...] with ascites 05/29/2013 12/15/2016 Overview (06/10/2013): admitted [facility], 3 liters taken off Alcoholic cirrhosis of liver 02/14/2013 12/15/2016 Alcohol abuse 01/09/2012 12/28/2014 Ascites 01/09/2012 09/18/2017 Epididymal cyst 01/09/2012 03/30/2017 Genital herpes 01/15/2018 Esophageal varices 2 Portal hypertensive gastropathy 04/15/2020 Alcoholic cirrhosis of liver without ascites 04/15/2020 Tympanic membrane perforation, right 07/30/2020 Overview (05/03/2017): digging in ear with toothpick documented as of this encounter (statuses as of 05/16/2024) Immunizations Name Administration Dates Next Due COVID-19 mRNA, LNP-s, No Pre serve, 2-Dose Series (Mapplas) 04/12/2021,09/29/2020,08/25/2020 COVID-19, MRNA-LNP, PF, 30 M CG/0.3 mL, 12 YRS AND ABOVE, IM ([employer]-Comirnat) 07/27/2023 HEP A - Hepatitis A (Adult [...] Answer Date Recorded PHQ Adult Total Score 2 04/07/2024 Hunger Vital Sign Answer Date Recorded Within the past 12 months, y ou worried that your food would run out before you got the money to buy more. Never true 04/08/19 25 Within the past 12 months, t he food you bought just didn't last and you didn't have money to get more. Never true 04/07/2024 Childcare Answer Date Recorded Do you feel overwhelmed with taking care of a child, family member or friend? No 04/07/2024 Does your family need help f inding childcare? (Household - for ages 0-17 years) Not on file 04/07/2024 Clothing Answer Date Recorded Have you been unable to get clothing when it was really needed? No 04/07/2024 Is your family able to get c lothes or diapers when needed? (Household - for ages 0-17 years) Not on file 04/07/2024 Personal Safety Answer Date Recorded Do you feel unsafe or have concerns for your saf ety? No 04/07/2024 Do you have concerns for you r family's safety? (Household - for ages 0-17 years) Not on file 04/07/2024 Utilities Answer Date Recorded Do you have trouble paying y our heating, water, or electric bill? No 04/07/2024 Is your family able to pay t he heat, water, or electric bill? (Household - for ages 0-17 years) Not on file 04/07/2024 Does your family have access to good internet? (Household - for ages 0-17 years) Not on file 04/07/2024 Employment Status Answer Date Recorded Are you unemployed or without regular income? No 04/07/2024 Does the household have a re lar source of income? (Household - for ages 0-17 years) Not on file 04/07/2024 Social Connections Answer Date Recorded How often do you feel lonely or isolated from those around you? Sometimes 04/07/2024 Financial Resource Strain Answer Date R ecorded Do you have any trouble payi ng for your medications, or do you think you might in the future? No 04/07/2024 Does your family have troubl e paying for medicine? (Household - for ages 0-17 years) Not on file 04/07/2024 Transportation Needs Answer Date Record ed Do you have trouble getting a ride to medical visits or work? (Adult - for ages 18 years and over) Not on file 04/07/2024 Does your family have a hard time getting a ride to doctors visits? (Household - for ages 0-17 years) Not on file 04/07/2024 Has lack of transportation k ept you from medical appointments, meetings, work, or from getting things needed for daily living? Check all that apply. No 04/07/2024 Do you (or your family) have trouble finding or paying for a ride (transportation)? (Household - for ages 0-17 years) Not on file 04/07/2024 Housing Stability Answer Date Recorded Do you currently live in a s helter or have no steady place to sleep at night? No 04/07/2024 Do you think you are at risk of becoming homeless? (Adult - for ages 18 years and over) Not on file 04/07/2024 Does your family worry about paying for your home or becoming homeless? (Household - for ages 0-17 years) Not on file 0 04/07/2024 Are you homeless or worried that you might be in the future? No 04/07/2024 Are you (or your family) maris eless [...] the money to buy more. Never true 04/08/19 Within the past 12 months, t he food you bought just didn't last and you didn't have money to get more. Never true 04/07/2024 Do you need food for this week? No 04/07/2024 Sex and Gender Information Value Date Recorded [...] as of this encounter Plan of Treatment Scheduled Procedures Name Priority Associated Diagnoses Date/Ti me COLONOSCOPY FLEXIBLE PROXIMA L DIAGNOSTIC Recall History of colonic polyps Health Maintenance Due Date Last Done Comments Zoster Vaccines (2 of 2) 02/27/2020 01/02/2020 COVID-19 Vaccine ( season) 2023 07/27/2023, 07/27/2023, 04/12/2021, Additional history exists Influenza Vaccine (FLU shot) (Season Ended) 2024 01/24/2023, 12/06/2021, 11/28/2021, Additional history exists Depression Monitoring 04/07/2025 04/07/2024 Meningitis B Vaccine (Bexsero/Trumemba) Aged Out No longer eligible based on patient's age to complete this topic documented as of this encounter Medical Devices Not on filedocumented as of this encounter Procedures Procedure Name Priority Date/Time Associated Diagnosis Comments CHEMISTRY-OUTSIDE Routine 05/07/2024 FECAL OCCULT BLOOD, EIA Routine 05/02/2024 documented in this encounter Results * (ABNORMAL) CHEMISTRY-OUTSIDE (05/07/2024) Not all results display below - see scan for full detail SCAN INCLUDES: CBCD, BMP OUTSIDE LAB (SEE SCANNED REPORT) CREATININE 0.68(A) 0.70 - 1.30 MG/DL OUTSIDE LAB (SEE SCANNED REPORT) EGFR >90 >60 ML/MIN OUTSIDE LAB (SEE SCANNED REPORT) POTASSIUM 3.4(A) 3.5 - 5.1 MMOL/L OUTSIDE LAB (SEE SCANNED REPORT) GLUCOSE 93 70 - 110 MG/DL OUTSIDE LAB (SEE SCANNED REPORT) HOURS FASTING OUTSID E LAB (SEE SCANNED REPORT) TRIGLYCERIDES-OUT SIDE LAB OUTSIDE LAB (SEE SCANNED REPORT) CHOLESTEROL-OUTSI DE LAB OUTSIDE LAB (SEE SCANNED REPORT) HDL-OUTSIDE LAB OUTS SADE LAB (SEE SCANNED REPORT) CHOL/HDL RATIO-OUTSIDE LAB OUTSIDE LA B (SEE SCANNED REPORT) LDL (CALCULATED)-OUTS SADE LAB OUTSIDE LAB (SEE SCANNED REPORT) LDL (DIRECT MEASURE)-OUTSIDE LAB OUTSIDE LAB (SEE SCANNED REPORT) HEMOGLOBIN, I9B-[id number] LAB OUTSIDE LAB (SEE SCANNED REPORT) PHOSPHORUS-OUTSID E LAB OUTSIDE LAB (SEE SCANNED REPORT) PTH-OUTSIDE LAB OUTS SADE LAB (SEE SCANNED REPORT) MICROALBUMIN RATIO-OUTSIDE LAB OUTSIDE LA B (SEE SCANNED REPORT) PROTEIN, UA-OUTSIDE LAB OUTSIDE LAB (SEE SCANNED REPORT) HGB 10.2(A) 13.5 - 18.0 GM/DL OUTSIDE LAB (SEE SCANNED REPORT) 05/07/2024 us Ezekiel Montana MD LABORATORY Final Result OUTSIDE LAB (SEE SCANNED REPORT) * FECAL OCCULT BLOOD, EIA (05/02/2024) Stool Stool specimen / Unknown 05/02/2024 Ezekiel Montana MD LAB FLUID AND STOOL ORDERABL ES Edited Result - Final OUTSIDE LAB (SEE SCANNED REPORT) documented in this encounter Advance Directives Documents on File Type Date Recorded Patient Hr Payroll Coordinator Expl anation Advance Directives and Living Will 05/14/2020 ADVANCE DIRECTIVE / LIVING WILL Power of Insurance Loss Control Surveyor 05/14/2020 POWER OF A TTORNEY Care Teams Dry House Operator Relationship Specialty Start Date End Date Najma Garcia MD [address] [place] [address] [place] [phone] PCP - General Family Medicine 08/29/23 documented as of this encounter
--- OUTSIDE RECORDS SUMMARY | 2024-06-22 03:20 | External Medical Summary | Summary of Care ---
Author Name Unknown Organization [facility] Address [address] [place] [address] Phone [phone] Care Team Providers Care Building Dismantler Name Role Phone Najma Garcia MD Primary Care Provide r Reason for Visit * Reason Onset Date Comments Advice 05/07/2024 FYI 05/07/2024 Encounter Details Date Type Department Care Team (Late st Contact Info) Description 05/07/2024 Telephone Family [address] [phone] Najma Garcia MD [address] [place] [address] [place] [phone] Advice; FY (/) Allergies No known active allergiesdocumented as of this encounter (statuses as of 05/14/2024) Medications Nerve Stimulator (CLEVER CHOICE TENS UNIT) [...] as of this encounter (statuses as of 05/14/2024) Active Problems Problem Noted Date Diagnosed Date [...] Grade 1-2 [] Grade 3-4 *A total Gmfwm-Dwnnmswj-Ufom score of 5 to 6 is considered [...] Assessment & Plan (04/06/2021 11:42 AM EST): [facility] RNCM Call: Reviewed case w/ [...] as of this encounter (statuses as of 05/14/2024) Resolved Problems Problem Noted Date Diagnosed Date [...] with ascites 05/29/2013 12/15/2016 Overview (06/10/2013): admitted [facility], 3 liters taken off Alcoholic cirrhosis of liver 02/14/2013 12/15/2016 Alcohol abuse 01/09/2012 12/28/2014 Ascites 01/09/2012 09/18/2017 Epididymal cyst 01/09/2012 03/30/2017 Genital herpes 01/15/2018 Esophageal varices 2 Portal hypertensive gastropathy 04/15/2020 Alcoholic cirrhosis of liver without ascites 04/15/2020 Tympanic membrane perforation, right 07/30/2020 Overview (05/03/2017): digging in ear with toothpick documented as of this encounter (statuses as of 05/14/2024) Immunizations Name Administration Dates Next Due COVID-19 mRNA, LNP-s, No Pre serve, 2-Dose Series ([employer]) 04/12/2021,09/29/2020,08/25/2020 COVID-19, MRNA-LNP, PF, 30 M CG/0.3 [...] No 04/07/2024 Does the household have a [facility] source [facility] income? (Household - for [...] encounter Miscellaneous Notes * Telephone Encounter - Magdalena Sin, ZOHAIB - 05/14/2024 9:14 AM EDT I called pt no answer, mailbox full. * Telephone Encounter - Chela Haro RN - 05/12/2024 12:13 PM EDT Please call pt to schedule an appt soon with Any provider, and a 6-[address] Garcia * Telephone Encounter - Najma Garcia MD - 05/09/2024 4:49 PM EDT Patient no-showed for hospital f/u. Patient's last colonoscopy was 06/21/22 and repeat recommended in 3 years so it is due next year. * Telephone Encounter - Nelsy Osuna LPN - 05/07/2024 4:15 PM EDT Terrence calling from [facility] Will f/u with PCP on the . On Sunday last week H and H down Fecal Occult blood test was positive. Will be going home this evening. Recommending a colonoscopy. Will fax over the information they have. Given the direct fax number of [phone] * Telephone Encounter - Allison Mendes OSA - 05/07/2024 4:12 PM EDT Reason for patient's call: [facility] Caller was transferred to [facility] at the nurse line. documented in this encounter Plan of Treatment Scheduled Procedures [...] Documents on File Type Date Recorded Patient Transmitter Chief Expl anation Advance Directives and Living Will 05/14/2020 ADVANCE DIRECTIVE / LIVING WILL Power of Technical Illustrations Map Inker 05/14/2020 POWER OF A TTORNEY Care Teams Building Dismantler Relationship Specialty Start Date End Date Najma Garcia MD [address] [place] [address] [place] [phone] PCP - General Family Medicine 08/29/23 documented as of this encounter
[2024-06-22] MEDS: MoRPHine SULFATE 4 MG/ML 1 ML CARP\\VIAL IV STA ×2 (03:49→06:24)
[2024-06-22 03:52] LABS: Basophils # (auto) 0.04 K/uL (0.00-0.20); Basophils % (auto) 0.9 %; Eosinophils # (auto) 0.16 K/uL (0.00-0.50); Eosinophils % (auto) 3.6 %; Hematocrit (blood only) 33.4 % (42.0-52.0); Hemoglobin 11.1 g/dl (14.0-18.0); Immature Granulocytes # (auto) 0.01 K/uL (0.01-0.20); Immature Granulocytes % (auto) 0.2 %; Lymphocytes # (auto) 0.79 K/uL (1.20-3.40); Lymphocytes % (auto) 17.6 %; Mean Corpuscular Hemoglobin 30.6 pg (25.0-34.0); Mean Corpuscular Hgb Conc 33.2 g/dL (32.0-36.0); Monocytes # (auto) 0.51 K/uL (0.11-0.59); Monocytes % (auto) 11.4 %; Neutrophils # (auto) 2.98 K/uL (1.40-6.50); Neutrophils % (auto) 66.3 %; Platelet Count 75 K/uL (130-400); RDW Coefficient of Variation 14.2 % (11.5-14.5); RDW Standard Deviation 47.8 fL (36.4-46.3); Red Blood Count 3.63 M/uL (4.70-6.10); White Blood Count 4.49 K/ul (4.8-10.8)
[2024-06-22] MEDS: SODIUM CHLORIDE 0.9% 1,000 ML IV SCH (03:53)
[2024-06-22 04:09] LABS: Albumin Globulin Ratio 0.8 (0.9-2); BUN Creatinine Ratio 16.2 (10-20); Bilirubin,Total 1.5 mg/dl (0.2-1.0); Calcium 8.9 mg/dl (8.6-10.3); Creatinine Clr Calc Pharmacy 120.5 ml/min; Globulin 3.6 gm/dl (2.5-4.0); Magnesium 1.8 mg/dl (1.7-2.4); Potassium 3.7 mmol/L (3.5-5.1); Total Protein 6.6 gm/dl (6.0-8.3)
[2024-06-22 04:16] LABS: Troponin I High Sensitivity 40.2 pg/ml (0-20)
[2024-06-22 04:33] LABS: INR 1.2 (0.9-1.1); Prothrombin Time 12.9 Seconds (9.0-12.0)
[2024-06-22] MEDS: OPTIRAY 320 100ml IV ONE (04:37)
--- NOTE | 2024-06-22 05:02 | XRay Report ---
EXAM: XR chest 1V portable CLINICAL HISTORY: left rib pain TECHNIQUE: An X-ray image of the chest is obtained in AP projection. COMPARISON: Compared to X-ray dated 06/11/2023. FINDINGS: Pulmonary Parenchyma: Accentuated bronchovascular markings of both lungs with haziness in the basal regions of both lungs. newly developed No pulmonary nodules are identified. No evidence of pleural effusion or pleural thickening. Heart and Mediastinum: Heart size and shape are normal. No mediastinal widening or masses. No hilar or mediastinal lymphadenopathy. Bony Thorax: Bony thorax appears intact without fractures or deformities. Soft Tissues: Soft tissues overlying the chest wall are unremarkable. IMPRESSION: Accentuated bronchovascular markings of both lungs with haziness in the basal regions of both lungs, clinical and lab correlation is advised. newly developed Electronically signed by Aaron Cross 06-22-2024 05:01 AM
--- NOTE | 2024-06-22 05:21 | CT Scan Report ---
EXAM: CT abd pelvis IV con only CLINICAL HISTORY: LUQ abd pain TECHNIQUE: Contiguous axial images were obtained from the level of the diaphragm to the pubic symphysis with intravenous contrast. Coronal and sagittal reconstructions were likewise performed and indicated to increase the sensitivity for detecting clinically relevant pathology. If IV contrast material had not been administered, the likelihood of detecting abnormalities relevant to the patient's condition would have been substantially decreased. CT scan was performed according to ALARA (as low as reasonable achievable). COMPARISON: 14:25:46 INSTRUMENTATION INSTRUCTOR FINDINGS: The visualized lung bases are clear. The liver appears relatively smaller in size with hypertrophy of caudate lobe and shows irregular nodular surface - suggest cirrhosis of liver There is no intra or extrahepatic biliary ductal dilatation. Hepatic vasculature is patent. Evidence of dilated portal vein and splenic vein with multiple collaterals are noted at peripancreatic perigastric space, at the splenic hilum and beneath the anterior abdominal wall - suggestive of portal hypertension. Spleen appears enlarged in size measures about 16 cm. The gallbladder is present. The pancreas, and adrenal glands are unremarkable. The kidneys are normal in size and attenuation. Left kidney shows mild hydronephrosis and hydroureter up to an obstructing calculus of size 3 mm involving left lower ureter ,just proximal to vesicoureteric Junction. Left sided perinephric and periureteric fat stranding - suggestive of obstructive nephropathy changes. The ureters are normal in caliber and no ureteral calculi are seen. The bladder is normal in contour. Pelvic viscera are unremarkable. No focal or diffuse bowel wall thickening or evidence of bowel obstruction is identified. NO inflammed appendix is visualized in the right lower quadrant. Abdominal and pelvic vasculature is patent. No adenopathy or fluid collections are seen. No aggressive appearing osseous lesions are identified. Spondylodegenerative changes involving visualized spine. Intrapedicular fixation screws are seen in situ without changes of instability. IMPRESSION: 1. Cirrhosis of liver with changes of portal hypertension- stable since prior study. 2. Splenomegaly - stable since prior. 3. Left kidney shows mild hydronephrosis and hydroureter up to an obstructing calculus of size 3 mm involving left lower ureter ,just proximal to vesicoureteric Junction.- new finding. 4. Left sided perinephric and periureteric fat stranding - suggestive of obstructive nephropathy changes.- new finding. Electronically signed by Kermit Carter 06-22-2024 05:21 AM
[2024-06-22 05:27] LABS: Appearance Urine Clear (Clear); Bacteria Urine Automated None Seen (None Seen); Bilirubin Urine Negative (Negative); Blood Urine 2+ (Negative); Cast Urine Automated 0-2 /lpf (0-2); Color Urine Yellow; Epithelial Cell Urine Auto 0-2 /hpf (0-2); Glucose Urine UA Negative (Negative); Ketones Urine Negative (Negative); Leukocyte Esterase Urine Negative (Negative); Nitrite Urine Negative (Negative); Protein Urine Negative (Negative); RBC Urine Automated >20 /hpf (0-2); Specific Gravity Urine 1.031 (1.000-1.030); Urobilinogen Urine Negative (Negative); WBC Urine Automated 0-5 /hpf (0-5); pH Urine 6.5 (4.5-7.5)
[2024-06-22] MEDS: cefTRIAXone SODIUM 2,000 MG/50 ML BAG IV STA (05:30)
[2024-06-22] MEDS: TAMSULOSIN HCL 0.4 MG CAP PO ONE (05:37)
--- NOTE | 2024-06-22 05:39 | Emergency Department Note ---
Impression & Plan Abdominal pain, Thrombocytopenia, Cirrhosis, Ureterolithiasis, Splenomegaly, Elevated troponin ED Provider Note ED Provider Note NAME: FABIANA LARRY AGE:64 SEX: Male : 1960 ARRIVES VIA: EMS INFORMANT: Patient ED PROVIDER(s): Libertad Sinha DO CHIEF COMPLAINT: Abdominal pain HPI: This is a 64-year-old male presents emergency department due to concern for left upper abdominal pain. Patient states symptoms began 2 days ago and were initially intermittent but now seem more constant. He states the pain seems to radiate around from the left upper quadrant into his left mid back. He denies fevers or chills, nausea or vomiting. He denies any recent change in urine or his bowel movements. He denies any change in medications. Patient denies any trauma, falls, or other injury. He denies any prior similar episodes. He denies any accompanying chest pain, shortness of breath, or recent URI symptoms. PAST MEDICAL HISTORY:See Below PAST SURGICAL HISTORY:See Below FAMILY HISTORY:See Below SOCIAL HISTORY:See Below HOME MEDICATIONS:See Below ALLERGIES:See Below VITALS:See Below PHYSICAL EXAMINATION: GENERAL: alert, unwell appearing, well nourished, no distress, non-toxic EYE EXAM: normal conjunctiva, PERRL and EOM's grossly intact OROPHARYNX: no exudate, no erythema, lips, buccal mucosa, and tongue normal and mucous membranes are dry, poor dentition NECK: supple, no nuchal rigidity, no adenopathy, non-tender LUNGS: Clear to auscultation. Normal chest wall mechanics, no w/r/r HEART: no murmurs, S1 normal and S2 normal ABDOMEN: abdomen soft, pain with palpation in the left upper quadrant/left costal margin, normo-active bowel sounds, no masses, no rebound or guarding. Dull to percussion. SKIN: no rashes, petechiae, orbruising UPPER EXTREMITIES: upper extremities are grossly normal. FROM, nml pulses b/l. LOWER EXTREMITIES: No pitting edema. FROM, nml pulses b/l. NEURO EXAM: Normal sensorium, cranial nerves II-XII grossly intact, normal speech, no facial droop,nogross weakness of arms, no gross weakness of legs. Gross sensation intact. No ataxia. Vital Signs: reviewed and remarkable Differential Diagnosis: Gastritis, ACS, pneumonia, hemoperitoneum, splenomegaly, colitis, bowel obstruction, pancreatitis, cholecystitis, perforation, GI bleed, as well as others were considered MEDICAL DECISION MAKING: This is a 64-year-old male presents emergency department with left upper quadrant abdominal pain. No recent trauma no recent illness. He was afebrile and hemodynamically stable although noted to be mildly tachycardic and hypertensive. Labs drawn and sent, IV established, EKG and chest ray performed at bedside interpreted by me and patient monitored on telemetry. Patient started on gentle IV fluid hydration was given a dose of IV morphine. He was sent for CT of the abdomen and pelvis. Patient noted improvement in his pain following medication. CT revealed left-sided ureterolithiasis which I suspect is likely the cause of his pain. Patient's heart rate and blood pressure improved with hydration and pain control. Patient was noted to have a mildly elevated troponin on arrival however had no accompanying chest pain or shortness of breath. A repeat troponin was drawn and sent for completeness however was markedly elevated. Patient denied any prior cardiac history and stated he did have a reassuring stress test within the last few years. With assistance of case management this was found and reviewed. Given additional atypical findings, we discussed further inpatient evaluation and management. I did reach out to on-call [facility] cardiology who recommended no addition of heparin at this time. Patient does have a prior history of pancytopenia and counts today do appear stable. [facility] come and evaluate the patient. Consultations: 0630: Discussed with Dr. Melo, via [place] text, who states no heparin at this time. 0635: [facility] additional evaluation and mgmt. ER Treatment Provided: See below Diagnostics Interpreted By Me: -ECG: Sinus tachycardia at 104, normal axis, normal intervals, frequent PVCs noted, nonspecific ST/T wave changes EKG #2: Normal sinus 97, normal axis, normal intervals, PVCs noted, no acute ST/T wave changes -Cardiac Monitoring: An order was placed for continuous cardiac monitoring. The monitor shows a rate of 90 with normal sinus rhythm. -Laboratory studies: As stated above and show below. -Imaging studies: X-ray Chest: A single view study of the chest was reviewed and was negative for cardiomegaly, focal infiltrate, effusion, pulmonary edema, or wide mediastinum. Triage Nursing Note Reviewed Prior/Outside Records Reviewed - stress test from 2020 reviewed Past Med/Surg History Problem List (Updated 06/22/24 @ 06:27 by Libertad Sinha DO) Elevated troponin (Acute) Splenomegaly (Acute) Ureterolithiasis (Acute) Abdominal pain (Acute) Aftercare following left hip joint replacement surgery Status post left hip replacement (~04/2024) Degenerative joint disease of left hip Hypertension (Acute) Skin tear of right upper extremity (Acute) Elevated liver enzymes (Acute) Anemia (Acute) Left hip pain (Acute) Fall (Acute) Fall (Acute) Encounter for pre-operative examination History of colon polyps [place] Ambulatory dysfunction Pancytopenia Acute hepatic encephalopathy (Acute) COVID-19 (Acute) SARS-CoV-2 positive Protein calorie malnutrition Hepatic encephalopathy (Acute) Cirrhosis (Acute) DVT prophylaxis Hepatic encephalopathy Acute UTI (Acute) History of cirrhosis of liver (Acute) Thrombocytopenia (Acute) Depression Chronic back pain History of total right hip arthroplasty 2018 GERD (gastroesophageal reflux disease) Portal hypertensive gastropathy Hx of esophageal varices (Acute) 2/2 chronic portal HTN Medical History Increased ammonia level History of COVID-19 11/01/21 @ [facility]--he was in the hospital for weakness and confusion and they did a COVID test and was found to be positive, states he had no symptoms of covid--no symptoms now Thrombocytopenia Tobacco abuse Depression with anxiety Osteoarthritis of right knee Esophageal varices Urinary tract infection hx, recurrent Lumbar radiculopathy Lumbar disc herniation Sacroiliitis Alcoholic cirrhosis Portal vein thrombosis hx History of hepatitis C pt states he no longer has History of alcohol abuse per pt quit 2013 Hx of thrombocytopenia Baseline platelets ~ 50-75k. 2/2 cirrhosis. Hx of encephalopathy 04/2020 [facility] Hx of gynecomastia History of anemia Hypertension Hx of ascites History of cirrhosis of liver D/T ALCOHOL Hearing deficit right ear perf eardrum Surgical History History of lumbar spinal fusion (~05/27/20) x2 History of esophagogastroduodenoscopy (EGD) History of colonoscopy with polypectomy 06/2022 @ [facility] Hx of decompression of ulnar nerve RIGHT History of tooth extraction all teeth removed Family History Father Diabetes Other No family history of adverse response to anesthesia Social History Smoking Status: Former smoker Tobacco Type: Smokeless Tobacco (Dip or Chew) Second Hand Exposure: No; Do You Dip or Chew Tobacco: Yes; Hx Alcohol Use: No Hx Substance Use: No Preferred Language: Sami Communication Ability: Effective Cigarette Tester Required: No Beliefs That Will Affect Care: None marital status: / Current Living Situation: Alone Current Living Situation Comment: Pt states he has a friend that comes by to help him How many Children do You have: 3 Feels Safe at Home: Yes Assistive Devices: Cane Allergies Allergies Allergy/AdvReac Type Severity Reaction Status Date / Time No Known Allergies Allergy Verified 12/09/23 15:06 Home Meds Previous Rx's Medication Instructions Recorded albuterol sulfate 90 mcg/actuation 2 puff inhalation Q4H PRN 04/26/24 aerosol inhaler Shortness Of Breath Or Wheezing #6.7 grams baclofen 10 mg tablet 10 mg PO TID PRN back spasms #20 04/26/24 tabs calcium carbonate (Tums E-X) 300 mg PO TID PRN heart burn #14 04/26/24 tabs docusate sodium 100 mg capsule 100 mg PO BID 14 days #28 caps 04/26/24 duloxetine 60 mg capsule,delayed 60 mg PO DAILY 14 days #14 caps 04/26/24 release folic acid 1 mg tablet 1 mg PO DAILY 14 days #14 tabs 04/26/24 gabapentin 100 mg capsule 100 mg PO BID 14 days #28 caps 04/26/24 lactulose 20 gram oral packet 20 g PO TID 14 days #45 ea 04/26/24 (Kristalose) multivitamin with folic acid 400 1 tab PO QAM 14 days #14 tabs 04/26/24 mcg tablet (Daily-Josue (with folic acid)) pantoprazole 40 mg tablet,delayed 40 mg PO DAILY 14 days #14 tabs 04/26/24 release (Protonix) potassium chloride 20 mEq oral 20 meq PO DAILY 14 days #14 ea 04/26/24 packet rifaximin 550 mg tablet (Xifaxan) 550 mg PO TID 14 days #42 tabs 04/26/24 sennosides 8.6 mg tablet (Senokot) 17.2 mg (2 x 8.6 mg) PO HS 14 days 04/26/24 #28 tabs spironolactone 100 mg tablet 100 mg PO DAILY #14 tabs 04/26/24 thiamine HCl (vitamin B1) 100 mg 100 mg PO DAILY 14 days #14 tabs 04/26/24 tablet torsemide 20 mg tablet 20 mg PO BID 14 days #28 tabs 04/26/24 valacyclovir 1 gram tablet 1,000 mg PO DAILY 14 days #14 tabs 04/26/24 oxycodone 5 mg tablet 5 mg PO Q4H PRN moderate-severe 06/13/24 pain #30 tabs Results & Data (ED) Vital Signs Vital Signs - 24 hr 06/22/24 03:20 06/22/24 03:22 06/22/24 03:54 Temperature 36.7 C Temperature Source Oral Pulse Rate 109 H 109 H 108 H Pulse Rate [Apical] Respiratory Rate 16 20 Respiratory Effort / Characteristics Non-Labored Spontaneous Respiratory Depth Normal Respiratory Pattern Regular Blood Pressure 202/119 H 188/117 H Blood Pressure Mean 146 164 Pulse Oximetry 99 98 Oxygen Delivery Method Room Air Room Air Sepsis Recent Fever Within 48 Hours No Sepsis New/Unexplained Change in Mental Status N/A Sepsis Action Taken by Nursing No Action Required 06/22/24 03:54 06/22/24 05:00 06/22/24 05:30 Temperature Temperature Source Pulse Rate 104 H 108 H 94 H Pulse Rate [Apical] Respiratory Rate 18 18 Respiratory Effort / Characteristics Respiratory Depth Respiratory Pattern Blood Pressure 154/98 H 170/88 H Blood Pressure Mean 116 115 Pulse Oximetry 97 99 Oxygen Delivery Method Room Air Room Air Sepsis Recent Fever Within 48 Hours Sepsis New/Unexplained Change in Mental Status Sepsis Action Taken by Nursing 06/22/24 06:23 06/22/24 07:01 Temperature Temperature Source Pulse Rate 92 H Pulse Rate [Apical] 100 H Respiratory Rate 20 20 Respiratory Effort / Characteristics Non-Labored Respiratory Depth Normal Respiratory Pattern Blood Pressure 154/88 H Blood Pressure Mean 113 Pulse Oximetry 98 98 Oxygen Delivery Method Room Air Sepsis Recent Fever Within 48 Hours Sepsis New/Unexplained Change in Mental Status Sepsis Action Taken by Nursing Laboratory Data 06/22/24 03:24 06/22/24 03:24 Lab Results 06/22/24 06/22/24 06/22/24 Range/Units 03:24 05:15 05:19 WBC 4.49 L (4.8-10.8) K/ul RBC 3.63 L (4.70-6.10) M/uL Hgb 11.1 L (14.0-18.0) g/dl Hct 33.4 L (42.0-52.0) % MCV 92.0 (80.0-100.0) fL MCH 30.6 (25.0-34.0) pg MCHC 33.2 (32.0-36.0) g/dL RDW Std Deviation 47.8 H (36.4-46.3) fL RDW Coeff of Abhijit 14.2 (11.5-14.5) % Plt Count 75 L (130-400) K/uL MPV 12.0 (9.4-12.4) fL Immature Gran % (Auto) 0.2 % Neut % (Auto) 66.3 % Lymph % (Auto) 17.6 % [place] % (Auto) 11.4 % Eos % (Auto) 3.6 % Baso % (Auto) 0.9 % Neut # (Auto) 2.98 (1.40-6.50) K/uL Lymph # (Auto) 0.79 L (1.20-3.40) K/uL [place] # (Auto) 0.51 (0.11-0.59) K/uL Eos # (Auto) 0.16 (0.00-0.50) K/uL Baso # (Auto) 0.04 (0.00-0.20) K/uL Immature Gran # (Auto) 0.01 (0.01-0.20) K/uL PT 12.9 H (9.0-12.0) Seconds INR 1.2 H (0.9-1.1) Sodium 140 (136-145) mmol/L Potassium 3.7 (3.5-5.1) mmol/L Chloride 113 H (98-107) mmol/L Carbon Dioxide 22 (21-32) mmol/L Anion Gap 5 (3-11) BUN 11 (6-23) mg/dl Creatinine 0.68 (0.6-1.4) mg/dl Est Cr Clr Drug Dosing 120.5 ml/min eGFR 103.80 BUN/Creatinine Ratio 16.2 (10-20) Glucose 163 H (70-99(Fasting)) mg/dl Calcium 8.9 (8.6-10.3) mg/dl Magnesium 1.8 (1.7-2.4) mg/dl Total Bilirubin 1.5 H (0.2-1.0) mg/dl AST 41 H (13-39) U/L ALT 16 (7-52) U/L Alkaline Phosphatase 107 H (34-104) U/L Troponin I High Sens 40.2 H 163.5 H* D (0-20) pg/ml Total Protein 6.6 (6.0-8.3) gm/dl Albumin 3.0 L (3.4-5.0) gm/dl Globulin 3.6 (2.5-4.0) gm/dl Albumin/Globulin Ratio 0.8 L (0.9-2) Lipase 29 (11-82) U/L Urine Color Yellow Urine Appearance Clear (Clear) Urine pH 6.5 (4.5-7.5) Ur Specific [place] 1.031 H (1.000-1.030) Urine Protein Negative (Negative) Urine Glucose (UA) Negative (Negative) Urine Ketones Negative (Negative) Urine Blood 2+ H (Negative) Urine Nitrite Negative (Negative) Urine Bilirubin Negative (Negative) Urine Urobilinogen Negative (Negative) Ur Leukocyte Esterase Negative (Negative) Urine WBC (Auto) 0-5 (0-5) /hpf Urine RBC (Auto) >20 H (0-2) /hpf U Hyaline Cast (Auto) 0-2 (0-2) /lpf U Epithel Cells (Auto) 0-2 (0-2) /hpf Urine Bacteria (Auto) None Seen (None Seen) Urine Comment Administered Medications Sodium Chloride (Nss) 1,000 mls @ 125 mls/hr IV .Q8H AMBER Stop: 06/25/24 03:44 Last Admin: 06/22/24 03:53 Dose: 125 mls/hr Documented By: BIANCA Discontinued Medications Ceftriaxone Sodium (Rocephin) 2,000 mg in 50 mls @ 100 mls/hr IV NOW STA Stop: 06/22/24 05:44 Last Infusion: 06/22/24 06:00 Dose: Infused Documented By: Admin: 06/22/24 05:30 Dose: 100 mls/hr Documented By: BIANCA Ioversol (Optiray 320 100ml) 93 ml IV ONCE ONE Stop: 06/22/24 04:37 Last Admin: 06/22/24 04:37 Dose: 93 ml Documented By: KORIN Morphine Sulfate (Morphine Sulfate 4 Mg/Ml 1 Ml Carp\Vial) 4 mg IV NOW STA Stop: 06/22/24 03:38 Last Admin: 06/22/24 03:49 Dose: 4 mg Documented By: BIANCA Morphine Sulfate (Morphine Sulfate 4 Mg/Ml 1 Ml Carp\Vial) 4 mg IV NOW STA Stop: 06/22/24 06:23 Last Admin: 06/22/24 06:24 Dose: 4 mg Documented By: BIANCA Oxycodone HCl (Oxycodone Ir Home Pack) 1 each PO UD ONE Stop: 06/22/24 05:33 Last Admin: 06/22/24 06:24 Dose: Not Given Documented By: IBANCA Tamsulosin HCl (Tamsulosin Hcl 0.4 Mg Cap) 0.4 mg PO NOW ONE Stop: 06/22/24 05:32 Last Admin: 06/22/24 05:37 Dose: 0.4 mg Documented By: BIANCA Imaging Data Radiologist's Impression: Chest X-Ray 06/22/24 03:37 EXAM: XR chest 1V portable CLINICAL HISTORY: left rib pain TECHNIQUE: An X-ray image of the chest is obtained in AP projection. COMPARISON: Compared to X-ray dated 06/11/2023. FINDINGS: Pulmonary Parenchyma: Accentuated bronchovascular markings of both lungs with haziness in the basal regions of both lungs. newly developed No pulmonary nodules are identified. No evidence of pleural effusion or pleural thickening. Heart and Mediastinum: Heart size and shape are normal. No mediastinal widening or masses. No hilar or mediastinal lymphadenopathy. Bony Thorax: Bony thorax appears intact without fractures or deformities. Soft Tissues: Soft tissues overlying the chest wall are unremarkable. IMPRESSION: Accentuated bronchovascular markings of both lungs with haziness in the basal regions of both lungs, clinical and lab correlation is advised. newly developed Electronically signed by Aaron Cross 06-22-2024 05:01 AM Abdomen/Pelvis CT 06/22/24 04:14 EXAM: CT abd pelvis IV con only CLINICAL HISTORY: LUQ abd pain TECHNIQUE: Contiguous axial images were obtained from the level of the diaphragm to the pubic symphysis with intravenous contrast. Coronal and sagittal reconstructions were likewise performed and indicated to increase the sensitivity for detecting clinically relevant pathology. If IV contrast material had not been administered, the likelihood of detecting abnormalities relevant to the patient's condition would have been substantially decreased. CT scan was performed according to ALARA (as low as reasonable achievable). COMPARISON: 14:25:46 [employer] FINDINGS: The visualized lung bases are clear. The liver appears relatively smaller in size with hypertrophy of caudate lobe and shows irregular nodular surface - suggest cirrhosis of liver There is no intra or extrahepatic biliary ductal dilatation. Hepatic vasculature is patent. Evidence of dilated portal vein and splenic vein with multiple collaterals are noted at peripancreatic perigastric space, at the splenic hilum and beneath the anterior abdominal wall - suggestive of portal hypertension. Spleen appears enlarged in size measures about 16 cm. The gallbladder is present. The pancreas, and adrenal glands are unremarkable. The kidneys are normal in size and attenuation. Left kidney shows mild hydronephrosis and hydroureter up to an obstructing calculus of size 3 mm involving left lower ureter ,just proximal to vesicoureteric Junction. Left sided perinephric and periureteric fat stranding - suggestive of obstructive nephropathy changes. The ureters are normal in caliber and no ureteral calculi are seen. The bladder is normal in contour. Pelvic viscera are unremarkable. No focal or diffuse bowel wall thickening or evidence of bowel obstruction is identified. NO inflammed appendix is visualized in the right lower quadrant. Abdominal and pelvic vasculature is patent. No adenopathy or fluid collections are seen. No aggressive appearing osseous lesions are identified. Spondylodegenerative changes involving visualized spine. Intrapedicular fixation screws are seen in situ without changes of instability. IMPRESSION: 1. Cirrhosis of liver with changes of portal hypertension- stable since prior study. 2. Splenomegaly - stable since prior. 3. Left kidney shows mild hydronephrosis and hydroureter up to an obstructing calculus of size 3 mm involving left lower ureter ,just proximal to vesicoureteric Junction.- new finding. 4. Left sided perinephric and periureteric fat stranding - suggestive of obstructive nephropathy changes.- new finding. Electronically signed by Kermit Carter 06-22-2024 05:21 AM Discharge Plan Visit Data Chief Complaint: Abdominal Pain Stated Complaint: Abdominal Pain, Rib Pain, Nausea ED Provider: Libertad Sinha Discharge Problem: Abdominal pain, Thrombocytopenia, Cirrhosis, Ureterolithiasis, Splenomegaly, Elevated troponin Patient Disposition: Being Evaluated by Hospitalist Condition: Fair Forms Stand Alone Forms: My [facility] Prescriptions Prescriptions: No Action oxycodone 5 mg tablet 5 mg PO Q4H PRN (Reason: moderate-severe pain) Qty: 30 0RF sennosides [Senokot] 8.6 mg Tablet 17.2 mg PO HS 14 Days Qty: 28 1RF docusate sodium 100 mg Capsule 100 mg PO BID 14 Days Qty: 28 1RF multivitamin with folic acid [Daily-Josue (with folic acid)] 400 mcg Tablet 1 tab PO QAM 14 Days Qty: 14 1RF torsemide 20 mg Tablet 20 mg PO BID 14 Days Qty: 28 1RF valacyclovir 1 gram Tablet 1,000 mg PO DAILY 14 Days Qty: 14 1RF spironolactone 100 mg Tablet 100 mg PO DAILY Qty: 14 1RF thiamine HCl (vitamin B1) 100 mg Tablet 100 mg PO DAILY 14 Days Qty: 14 1RF Tums E-X 300 mg (750 mg) Tablet,Chewable 300 mg PO TID PRN (Reason: heart burn) Qty: 14 1RF potassium chloride 20 mEq Packet 20 meq PO DAILY 14 Days Qty: 14 1RF baclofen 10 mg Tablet 10 mg PO TID PRN (Reason: back spasms) Qty: 20 1RF pantoprazole [Protonix] 40 mg Tablet,Delayed Release (Dr/Ec) 40 mg PO DAILY 14 Days Qty: 14 1RF folic acid 1 mg Tablet 1 mg PO DAILY 14 Days Qty: 14 1RF gabapentin 100 mg Capsule 100 mg PO BID 14 Days Qty: 28 1RF albuterol sulfate 90 mcg/actuation Hfa Aerosol Inhaler 2 puff INHALATION Q4H PRN (Reason: Shortness Of Breath Or Wheezing) Qty: 6.7 1RF lactulose [Kristalose] 20 gram Packet 20 g PO TID 14 Days Qty: 45 1RF duloxetine 60 mg capsule,delayed release(DR/EC) 60 mg PO DAILY 14 Days Qty: 14 1RF Xifaxan 550 mg tablet 550 mg PO TID 14 Days Qty: 42 1RF Referrals Referrals: Najma Garcia MD [Primary Care Provider] -
[2024-06-22] MEDS: oxyCODONE IR HOME PACK PO ONE (06:24)
--- NOTE | 2024-06-22 09:06 | History & Physical Report ---
<Statement entered by Yao May DO - 06/22/24 13:47> I have seen and examined the patient and have discussed the case with the advance practice provider. I have reviewed the advanced practitioner's documentation, and I agree with, and take responsibility for that plan of care. Patient seen and evaluated on the PCU unit. States he may have very slight sensation of pressure in his chest. No shortness of breath. His flank pain is subsided somewhat. Lungs: Decreased breath sounds, no wheezes CV: S1-S2, No significant murmur Troponins reviewed, trending upwards Echocardiogram reviewed, normal ejection fraction, no wall motion abnormalities or significant valvular dysfunction Reviewed cardiology consultation, concerned with patient's history of varices a nd starting heparin, continue to treat medically otherwise Reviewed urology consultation, will continue to monitor patient's symptoms, it is possible patient may pass stone and avoid urological intervention especially in the setting of his current heart issues Suspect patient has a non-STEMI due to demand ischemia/type II in the setting of obstructive or renal calculi possible sepsis Continue to treat medically Follow laboratory studies Discussed plan of care as outlined below I spent a total of 25 minutes coordinating, documenting, and providing care for this patient excluding time spent by another provider/QHP. Date of Service June 22, 2024 Assessment & Plan (1) Elevated troponin: (2) Hypertension: (3) Hepatic encephalopathy: (4) History of cirrhosis of liver: (5) Thrombocytopenia: (6) Chronic back pain: (7) GERD (gastroesophageal reflux disease): (8) Portal hypertensive gastropathy: (9) Hx of esophageal varices: (10) History of hepatitis C: Plan The patient is a 64-year-old male who presented to the ED on 06/22/2024 with complaints of left upper quadrant pain found to have a left obstructing kidney stone and elevated troponin Left kidney hydronephrosis Obstructive calculus left lower ureter Noted on CT A/P, left-sided perinephric fat stranding, possible obstructive nephropathy Discussed with urology, high risk with elevated troponin, possible OR vs attempting to let stone pass. Elevated troponin: No acute EKG changes, likely demand ischemia from kidney stone and underlying liver disease Check echo, cardiology consult, trend troponin, telemetry monitoring Hx alcoholic liver cirrhosis Esophageal varices Hx Hep C Thrombocytopenia Patient reports compliance with home medications and alcohol cessation x 11 years Platelet count stable and at baseline, continue Xifaxan, hold diuretics for now Patient takes lactulose on an as-needed basis, reports 34 bowel movements daily -Reports no longer having hep C Continue Xifaxan/folic acid Hx GERD: Continue pantoprazole Hx chronic back/hip pain: Continue home oxycodone dose Hx depression: Continue duloxetine A total of 60 minutes was spent on chart review/facilitating plan of care/discussion with consultants/reviewing diagnostic data Full code DVT prophylaxis: SCDs, hold off on AC for possible OR History of Present Illness Chief Complaint: Left upper quadrant abdominal pain Primary Care Provider: Najma Garcia MD The patient is a 64-year-old male with a past medical history of alcohol abuse, liver cirrhosis, hepatic encephalopathy, thrombocytopenia, depression, GERD, chronic pain, esophageal varices, portal hypertensive gastropathy, suspected COPD who presents to the ED on 06/22/2024 with complaints of left upper quadrant pain x 48 hours. Patient reports that abdominal pain was initially intermittent but became constant. He also reports radiation from the left upper quadrant to the left mid back. Denies any nausea/vomiting/diarrhea. Denies any fever/chills. Denies any recent change in medications and reports compliance with medications. Denies smoking Reports quitting drinking about 11 years ago On arrival to the ED, labs remarkable for WBC 4.49, platelets 75, INR 1.2, chloride 113, glucose 163, total bilirubin 1.5, AST 41, alk phos 107, initial troponin 40, repeat troponin 163 Urinalysis fairly unremarkable, EKG without acute changes abdomen/pelvis CT showed: 1. Cirrhosis of liver with changes of portal hypertension- stable since prior study. 2. Splenomegaly - stable since prior. 3. Left kidney shows mild hydronephrosis and hydroureter up to an obstructing calculus of size 3 mm involving left lower ureter ,just proximal to vesicoureteric Junction.- new finding. 4. Left sided perinephric and periureteric fat stranding - suggestive of obstructive nephropathy changes.- new finding. The patient will be admitted for further management of left-sided kidney stone Allergies Allergy/AdvReac Type Severity Reaction Status Date / Time No Known Allergies Allergy Verified 12/09/23 15:06 Home Medications Medication Instructions Recorded Confirmed Type albuterol sulfate 90 mcg/actuation 2 puff inhalation Q4H PRN 04/26/24 Rx aerosol inhaler Shortness Of Breath Or Wheezing #6.7 grams baclofen 10 mg tablet 10 mg PO TID PRN back spasms #20 04/26/24 Rx tabs calcium carbonate (Tums E-X) 300 mg PO TID PRN heart burn #14 04/26/24 Rx tabs docusate sodium 100 mg capsule 100 mg PO BID 14 days #28 caps 04/26/24 Rx duloxetine 60 mg capsule,delayed 60 mg PO DAILY 14 days #14 caps 04/26/24 Rx release folic acid 1 mg tablet 1 mg PO DAILY 14 days #14 tabs 04/26/24 Rx gabapentin 100 mg capsule 100 mg PO BID 14 days #28 caps 04/26/24 Rx lactulose 20 gram oral packet 20 g PO TID 14 days #45 ea 04/26/24 Rx (Kristalose) multivitamin with folic acid 400 1 tab PO QAM 14 days #14 tabs 04/26/24 Rx mcg tablet (Daily-Josue (with folic acid)) pantoprazole 40 mg tablet,delayed 40 mg PO DAILY 14 days #14 tabs 04/26/24 Rx release (Protonix) potassium chloride 20 mEq oral 20 meq PO DAILY 14 days #14 ea 04/26/24 Rx packet rifaximin 550 mg tablet (Xifaxan) 550 mg PO TID 14 days #42 tabs 04/26/24 Rx sennosides 8.6 mg tablet (Senokot) 17.2 mg (2 x 8.6 mg) PO HS 14 days 04/26/24 Rx #28 tabs spironolactone 100 mg tablet 100 mg PO DAILY #14 tabs 04/26/24 Rx thiamine HCl (vitamin B1) 100 mg 100 mg PO DAILY 14 days #14 tabs 04/26/24 Rx tablet torsemide 20 mg tablet 20 mg PO BID 14 days #28 tabs 04/26/24 Rx valacyclovir 1 gram tablet 1,000 mg PO DAILY 14 days #14 tabs 04/26/24 Rx oxycodone 5 mg tablet 5 mg PO Q4H PRN moderate-severe 06/13/24 Rx pain #30 tabs Past Med/Surg History Problem List (Updated 06/22/24 @ 06:27 by Libertad Sinha DO) Elevated troponin (Acute) Splenomegaly (Acute) Ureterolithiasis (Acute) Abdominal pain (Acute) Aftercare following left hip joint replacement surgery Status post left hip replacement (~04/2024) Degenerative joint disease of left hip Hypertension (Acute) Skin tear of right upper extremity (Acute) Elevated liver enzymes (Acute) Anemia (Acute) Left hip pain (Acute) Fall (Acute) Fall (Acute) Encounter for pre-operative examination History of colon polyps [place] Ambulatory dysfunction Pancytopenia Acute hepatic encephalopathy (Acute) COVID-19 (Acute) SARS-CoV-2 positive Protein calorie malnutrition Hepatic encephalopathy (Acute) Cirrhosis (Acute) DVT prophylaxis Hepatic encephalopathy Acute UTI (Acute) History of cirrhosis of liver (Acute) Thrombocytopenia (Acute) Depression Chronic back pain History of total right hip arthroplasty 2018 GERD (gastroesophageal reflux disease) Portal hypertensive gastropathy Hx of esophageal varices (Acute) 2/2 chronic portal HTN Medical History Increased ammonia level History of COVID-19 11/01/21 @ [facility]--he was in the hospital for weakness and confusion and they did a COVID test and was found to be positive, states he had no symptoms of covid--no symptoms now Thrombocytopenia Tobacco abuse Depression with anxiety Osteoarthritis of right knee Esophageal varices Urinary tract infection hx, recurrent Lumbar radiculopathy Lumbar disc herniation Sacroiliitis Alcoholic cirrhosis Portal vein thrombosis hx History of hepatitis C pt states he no longer has History of alcohol abuse per pt quit 2013 Hx of thrombocytopenia Baseline platelets ~ 50-75k. 2/2 cirrhosis. Hx of encephalopathy 04/2020 [facility] Hx of gynecomastia History of anemia Hypertension Hx of ascites History of cirrhosis of liver D/T ALCOHOL Hearing deficit right ear perf eardrum Surgical History History of lumbar spinal fusion (~05/27/20) x2 History of esophagogastroduodenoscopy (EGD) History of colonoscopy with polypectomy 06/2022 @ [facility] Hx of decompression of ulnar nerve RIGHT History of tooth extraction all teeth removed Family History Father Diabetes Other No family history of adverse response to anesthesia Social History Smoking Status: Former smoker Tobacco Type: Smokeless Tobacco (Dip or Chew) Second Hand Exposure: No; Do You Dip or Chew Tobacco: Yes; Hx Alcohol Use: No Hx Substance Use: No Preferred Language: Cymraes Communication Ability: Effective Indexer Required: No Beliefs That Will Affect Care: None marital status: / Current Living Situation: Alone Current Living Situation Comment: Pt states he has a friend that comes by to help him How many Children do You have: 3 Feels Safe at Home: Yes Assistive Devices: Cane Review of Systems Review of Systems: All systems reviewed & are unremarkable except as noted in HPI & below Physical Exam Constitutional: WD/WN, vitals as above Eyes: PERRL, conjunctivae normal, anicteric sclerae ENMT: external ear and nose normal, oropharynx normal Neck: trachea midline, no thyromegaly Respiratory: normal respiratory effort, lungs clear to auscultation Cardiovascular: RRR, no murmur, no edema Gastrointestinal (Abdomen): normal bowel sounds, soft, nontender, no h epatosplenomegaly (Mild tenderness left upper quadrant, no guarding) Percussion/Palpation: + abdomen tender; no guarding Musculoskeletal: no cyanosis or clubbing, extremities motor strength 5/5 Skin: no rashes, warm and dry Neurologic: PERRL, EOMI, accommodation nl, no face palsy, no dysarthria Lymphatic: no cervical or axillary lymphadenopathy Results & Data Results & Data Vital Signs (Past 12 Hours) Vital Signs Temp Pulse Pulse Resp BP BP Pulse Ox 06/22/24 07:39 96 H 18 113/82 97 06/22/24 07:01 100 H 20 98 06/22/24 06:23 92 H 20 154/88 H 98 06/22/24 05:30 94 H 18 170/88 H 99 06/22/24 05:00 108 H 18 154/98 H 97 06/22/24 03:54 104 H 06/22/24 03:54 108 H 20 188/117 H 98 06/22/24 03:22 109 H 06/22/24 03:20 36.7 C 109 H 16 202/119 H 99 O2 Del Method 06/22/24 07:39 Room Air 06/22/24 07:01 Room Air 06/22/24 06:23 06/22/24 05:30 Room Air 06/22/24 05:00 Room Air 06/22/24 03:54 06/22/24 03:54 Room Air 06/22/24 03:22 06/22/24 03:20 Room Air Diagnostic Findings Laboratory Results WBC 4.49 K/ul (4.8-10.8) L 06/22/24 03:24 RBC 3.63 M/uL (4.70-6.10) L 06/22/24 03:24 Hgb 11.1 g/dl (14.0-18.0) L 06/22/24 03:24 Hct 33.4 % (42.0-52.0) L 06/22/24 03:24 MCV 92.0 fL (80.0-100.0) 06/22/24 03:24 MCH 30.6 pg (25.0-34.0) 06/22/24 03:24 MCHC 33.2 g/dL (32.0-36.0) 06/22/24 03:24 RDW Std Deviation 47.8 fL (36.4-46.3) H 06/22/24 03:24 RDW Coeff of Abhijit 14.2 % (11.5-14.5) 06/22/24 03:24 Plt Count 75 K/uL (130-400) L 06/22/24 03:24 MPV 12.0 fL (9.4-12.4) 06/22/24 03:24 Immature Gran % (Auto) 0.2 % 06/22/24 03:24 Neut % (Auto) 66.3 % 06/22/24 03:24 Lymph % (Auto) 17.6 % 06/22/24 03:24 Delta % (Auto) 11.4 % 06/22/24 03:24 Eos % (Auto) 3.6 % 06/22/24 03:24 Baso % (Auto) 0.9 % 06/22/24 03:24 Neut # (Auto) 2.98 K/uL (1.40-6.50) 06/22/24 03:24 Lymph # (Auto) 0.79 K/uL (1.20-3.40) L 06/22/24 03:24 Delta # (Auto) 0.51 K/uL (0.11-0.59) 06/22/24 03:24 Eos # (Auto) 0.16 K/uL (0.00-0.50) 06/22/24 03:24 Baso # (Auto) 0.04 K/uL (0.00-0.20) 06/22/24 03:24 Immature Gran # (Auto) 0.01 K/uL (0.01-0.20) 06/22/24 03:24 PT 12.9 Seconds (9.0-12.0) H 06/22/24 03:24 INR 1.2 (0.9-1.1) H 06/22/24 03:24 Sodium 140 mmol/L (136-145) 06/22/24 03:24 Potassium 3.7 mmol/L (3.5-5.1) 06/22/24 03:24 Chloride 113 mmol/L (98-107) H 06/22/24 03:24 Carbon Dioxide 22 mmol/L (21-32) 06/22/24 03:24 Anion Gap 5 (3-11) 06/22/24 03:24 BUN 11 mg/dl (6-23) 06/22/24 03:24 Creatinine 0.68 mg/dl (0.6-1.4) 06/22/24 03:24 Est Cr Clr Drug Dosing 120.5 ml/min 06/22/24 03:24 eGFR 103.80 06/22/24 03:24 BUN/Creatinine Ratio 16.2 (10-20) 06/22/24 03:24 Glucose 163 mg/dl (70-99(Fasting)) H 06/22/24 03:24 Calcium 8.9 mg/dl (8.6-10.3) 06/22/24 03:24 Magnesium 1.8 mg/dl (1.7-2.4) 06/22/24 03:24 Total Bilirubin 1.5 mg/dl (0.2-1.0) H 06/22/24 03:24 AST 41 U/L (13-39) H 06/22/24 03:24 ALT 16 U/L (7-52) 06/22/24 03:24 Alkaline Phosphatase 107 U/L (34-104) H 06/22/24 03:24 Troponin I High Sens 163.5 pg/ml (0-20) H* D 06/22/24 05:19 Total Protein 6.6 gm/dl (6.0-8.3) 06/22/24 03:24 Albumin 3.0 gm/dl (3.4-5.0) L 06/22/24 03:24 Globulin 3.6 gm/dl (2.5-4.0) 06/22/24 03:24 Albumin/Globulin Ratio 0.8 (0.9-2) L 06/22/24 03:24 Lipase 29 U/L (11-82) 06/22/24 03:24 Urine Color Yellow 06/22/24 05:15 Urine Appearance Clear (Clear) 06/22/24 05:15 Urine pH 6.5 (4.5-7.5) 06/22/24 05:15 Ur Specific Heber 1.031 (1.000-1.030) H 06/22/24 05:15 Urine Protein Negative (Negative) 06/22/24 05:15 Urine Glucose (UA) Negative (Negative) 06/22/24 05:15 Urine Ketones Negative (Negative) 06/22/24 05:15 Urine Blood 2+ (Negative) H 06/22/24 05:15 Urine Nitrite Negative (Negative) 06/22/24 05:15 Urine Bilirubin Negative (Negative) 06/22/24 05:15 Urine Urobilinogen Negative (Negative) 06/22/24 05:15 Ur Leukocyte Esterase Negative (Negative) 06/22/24 05:15 Urine WBC (Auto) 0-5 /hpf (0-5) 06/22/24 05:15 Urine RBC (Auto) >20 /hpf (0-2) H 06/22/24 05:15 U Hyaline Cast (Auto) 0-2 /lpf (0-2) 06/22/24 05:15 U Epithel Cells (Auto) 0-2 /hpf (0-2) 06/22/24 05:15 Urine Bacteria (Auto) None Seen (None Seen) 06/22/24 05:15 Urine Comment 06/22/24 05:15 Impressions Chest X-Ray 06/22/24 03:37 EXAM: XR chest 1V portable CLINICAL HISTORY: left rib pain TECHNIQUE: An X-ray image of the chest is obtained in AP projection. COMPARISON: Compared to X-ray dated 06/11/2023. FINDINGS: Pulmonary Parenchyma: Accentuated bronchovascular markings of both lungs with haziness in the basal regions of both lungs. newly developed No pulmonary nodules are identified. No evidence of pleural effusion or pleural thickening. Heart and Mediastinum: Heart size and shape are normal. No mediastinal widening or masses. No hilar or mediastinal lymphadenopathy. Bony Thorax: Bony thorax appears intact without fractures or deformities. Soft Tissues: Soft tissues overlying the chest wall are unremarkable. IMPRESSION: Accentuated bronchovascular markings of both lungs with haziness in the basal regions of both lungs, clinical and lab correlation is advised. newly developed Electronically signed by Aaron Cross 06-22-2024 05:01 AM Abdomen/Pelvis CT 06/22/24 04:14 EXAM: CT abd pelvis IV con only CLINICAL HISTORY: LUQ abd pain TECHNIQUE: Contiguous axial images were obtained from the level of the diaphragm to the pubic symphysis with intravenous contrast. Coronal and sagittal reconstructions were likewise performed and indicated to increase the sensitivity for detecting clinically relevant pathology. If IV contrast material had not been administered, the likelihood of detecting abnormalities relevant to the patient's condition would have been substantially decreased. CT scan was performed according to ALARA (as low as reasonable achievable). COMPARISON: 14:25:46 [employer] FINDINGS: The visualized lung bases are clear. The liver appears relatively smaller in size with hypertrophy of caudate lobe and shows irregular nodular surface - suggest cirrhosis of liver There is no intra or extrahepatic biliary ductal dilatation. Hepatic vasculature is patent. Evidence of dilated portal vein and splenic vein with multiple collaterals are noted at peripancreatic perigastric space, at the splenic hilum and beneath the anterior abdominal wall - suggestive of portal hypertension. Spleen appears enlarged in size measures about 16 cm. The gallbladder is present. The pancreas, and adrenal glands are unremarkable. The kidneys are normal in size and attenuation. Left kidney shows mild hydronephrosis and hydroureter up to an obstructing calculus of size 3 mm involving left lower ureter ,just proximal to vesicoureteric Junction. Left sided perinephric and periureteric fat stranding - suggestive of obstructive nephropathy changes. The ureters are normal in caliber and no ureteral calculi are seen. The bladder is normal in contour. Pelvic viscera are unremarkable. No focal or diffuse bowel wall thickening or evidence of bowel obstruction is identified. NO inflammed appendix is visualized in the right lower quadrant. Abdominal and pelvic vasculature is patent. No adenopathy or fluid collections are seen. No aggressive appearing osseous lesions are identified. Spondylodegenerative changes involving visualized spine. Intrapedicular fixation screws are seen in situ without changes of instability. IMPRESSION: 1. Cirrhosis of liver with changes of portal hypertension- stable since prior study. 2. Splenomegaly - stable since prior. 3. Left kidney shows mild hydronephrosis and hydroureter up to an obstructing calculus of size 3 mm involving left lower ureter ,just proximal to vesicoureteric Junction.- new finding. 4. Left sided perinephric and periureteric fat stranding - suggestive of obstructive nephropathy changes.- new finding. Electronically signed by Kermit Carter 06-22-2024 05:21 AM (2) Hypertension Hypertension type: unspecified Qualified Code(s): I10 - Essential (primary) hypertension
--- NOTE | 2024-06-22 09:23 | Urology Consultation ---
Date of Consultation June 22, 2024 Assessment & Plan (1) Ureterolithiasis: (2) Elevated troponin: (3) History of cirrhosis of liver: (4) Chronic back pain: (5) GERD (gastroesophageal reflux disease): (6) Hx of esophageal varices: Plan Patient with left 3 mm stone with perinephric stranding and obstructive issues. Patient does have history of stone disease. Has not been following with urologist. Patient had also presented with significant abdominal and chest pain. Found to have significantly elevated troponin. Concern for possible cardiac event/issue. Patient is being seen by the cardiology team. Has been monitored closely by the emergency medicine team. Is being admitted to the hospitalist for further workup and observation. Patient does have pain radiating into the groin coming in waves with some bother. Patient independently assessed, examined, interviewed, and evaluated. Patient's vitals and labs were all reviewed. Patient white count 4.49. Creatinine 0.68. Troponins were significantly elevated at 163.5. Patient's INR was also mildly elevated. Does have history of cirrhosis. Patient's vitals have been stable. Does have some hypertension issues with blood pressure 142/61 pulse was 90. Respirations 20. Temperature was 36.7. No fever documented in the records. Patient is on room air with oxygen saturation at 98% Other pertinent values in the HPI and plan section. Imaging was reviewed interpreted by myself. Patient with left 3 mm stone in the distal ureter. Does have hydronephrosis and perinephric stranding. Patient also has significant chronic issues such as cirrhosis. Agree with read. Vitals were reviewed. Discussed findings extensively with patient and family. Reviewed with consulting physicians/team. Patient's complicated medical and surgical history was reviewed and summarized above. Patient's surgical, medical, social, and family history were all reviewed with pertinent values as above. Patient with small but obstructing stone. Does have a history of stone disease but has not follow-up with urology. Has multiple other chronic issues and with elevated troponins and concern for possible cardiac event did discuss extensively with patient potential options moving forward. Discussed options for conservative measure and maximum expulsion medical therapy and symptom controlled. Discussed ESWL. Discussed Ureteroscopy with extraction and/or laser lithotripsy. Risks and benefits were discussed. Stone free rates were also discussed as well as possibility of multiple procedures. Ureteral stents were discussed as well as post-operative issues and pain management. All questions were answered. Discussed patient's current diagnosis as well as concerns and issues. Reviewed different options moving forward. Discussed potential risks and benefits as well as possible options and concerns. Reviewed potential surgical options and interventions. Discussed potential issues and concerns related to intervention. Risk and benefits were discussed extensively with patient and any available family. Discussed potential risks related to anesthesia. Discussed risks of bleeding infection and injury. Discussed the significantly increased risk with the patient's potential cardiac related concerns and issues. Patient does not have significant ILIA no signs of fever. Pain has been manageable with medication. Would recommend observation with hydration and maximum expulsion therapy utilizing medications as needed for symptom control and to assist with passage. Will observe otherwise. If patient does develop severe issues such as fever severe signs of infection or sepsis significant or severe ILIA or intractable pain or nausea and vomiting would consider possibly moving forward with intervention. Would need to have the full cardiac assessment and plans moving forward unless patient became severely ill and required emergent intervention. Will plan to monitor while patient admitted. Will await potential passing of small distal stone. History of Present Illness Attending Physician: Yao May, DO History of Present Illness New consultation for patient with stone, discomfort, obstruction, and ill feelings. Patient developed sudden onset of pain into flank going down and radiating into groin and back in waves comes and goes. Can be severe at times. Patient had also presented with possible chest pain and abdominal issues. Found to have severely elevated troponin suspicious for possible acute cardiac issue. Discussed and reviewed patient's family history for any history of stone disease. Patient has previously had stones. Also, discussed patient's medical surgery history especially related to any history of urinary issues or stone disease. Has not been following with urologist. Patient was admitted and is undergoing observation. Is still having discomfort and pain in the abdomen and pelvis. Had been improving slightly with as needed medications. Has not had severe fever or chills. Concern for possible pyelonephritis/infectious issues however vitals have remained stable. Patient has not had severe fever. Allergies Allergy/AdvReac Type Severity Reaction Status Date / Time No Known Allergies Allergy Verified 12/09/23 15:06 Home Medications Medication Instructions Recorded Confirmed Type albuterol sulfate 90 mcg/actuation 2 puff inhalation Q4H PRN 04/26/24 06/22/24 Rx aerosol inhaler Shortness Of Breath Or Wheezing #6.7 grams baclofen 10 mg tablet 10 mg PO TID PRN back spasms #20 04/26/24 06/22/24 Rx tabs calcium carbonate (Tums E-X) 300 mg PO TID PRN heart burn #14 04/26/24 06/22/24 Rx tabs docusate sodium 100 mg capsule 100 mg PO BID 14 days #28 caps 04/26/24 06/22/24 Rx duloxetine 60 mg capsule,delayed 60 mg PO DAILY 14 days #14 caps 04/26/24 06/22/24 Rx release folic acid 1 mg tablet 1 mg PO DAILY 14 days #14 tabs 04/26/24 06/22/24 Rx gabapentin 100 mg capsule 100 mg PO BID 14 days #28 caps 04/26/24 06/22/24 Rx lactulose 20 gram oral packet 20 g PO TID 14 days #45 ea 04/26/24 06/22/24 Rx (Kristalose) multivitamin with folic acid 400 1 tab PO QAM 14 days #14 tabs 04/26/24 06/22/24 Rx mcg tablet (Daily-Josue (with folic acid)) pantoprazole 40 mg tablet,delayed 40 mg PO DAILY 14 days #14 tabs 04/26/24 06/22/24 Rx release (Protonix) potassium chloride 20 mEq oral 20 meq PO DAILY 14 days #14 ea 04/26/24 06/22/24 Rx packet rifaximin 550 mg tablet (Xifaxan) 550 mg PO TID 14 days #42 tabs 04/26/24 06/22/24 Rx sennosides 8.6 mg tablet (Senokot) 17.2 mg (2 x 8.6 mg) PO HS 14 days 04/26/24 06/22/24 Rx #28 tabs spironolactone 100 mg tablet 100 mg PO DAILY #14 tabs 04/26/24 06/22/24 Rx thiamine HCl (vitamin B1) 100 mg 100 mg PO DAILY 14 days #14 tabs 04/26/24 06/22/24 Rx tablet torsemide 20 mg tablet 20 mg PO BID 14 days #28 tabs 04/26/24 06/22/24 Rx valacyclovir 1 gram tablet 1,000 mg PO DAILY 14 days #14 tabs 04/26/24 06/22/24 Rx oxycodone 5 mg tablet 5 mg PO Q4H PRN moderate-severe 06/13/24 06/22/24 Rx pain #30 tabs fluticasone propionate 50 1 spray intranasal DAILY 06/22/24 06/22/24 History mcg/actuation nasal spray,suspension Patient History Medical History Increased ammonia level History of COVID-19 11/01/21 @ [facility]--he was in the hospital for weakness and confusion and they did a COVID test and was found to be positive, states he had no symptoms of covid--no symptoms now Thrombocytopenia Tobacco abuse Depression with anxiety Osteoarthritis of right knee Esophageal varices Urinary tract infection hx, recurrent Lumbar radiculopathy Lumbar disc herniation Sacroiliitis Alcoholic cirrhosis Portal vein thrombosis hx History of hepatitis C pt states he no longer has History of alcohol abuse per pt quit 2013 Hx of thrombocytopenia Baseline platelets ~ 50-75k. 2/ cirrhosis. Hx of encephalopathy 04/2020 [facility] Hx of gynecomastia History of anemia Hypertension Hx of ascites History of cirrhosis of liver D/T ALCOHOL Hearing deficit right ear perf eardrum Surgical History History of lumbar spinal fusion (~05/27/20) x2 History of esophagogastroduodenoscopy (EGD) History of colonoscopy with polypectomy 06/2022 @ [facility] Hx of decompression of ulnar nerve RIGHT History of tooth extraction all teeth removed Family History Father Diabetes Other No family history of adverse response to anesthesia Social History Smoking Status: Former smoker Tobacco Type: Smokeless Tobacco (Dip or Chew) Second Hand Exposure: No; Do You Dip or Chew Tobacco: Yes; Hx Alcohol Use: No Hx Substance Use: No Preferred Language: Ivorian Communication Ability: Effective Press Tender Smoke Signal Required: No Beliefs That Will Affect Care: None marital status: / Current Living Situation: Alone Current Living Situation Comment: Pt states he has a friend that comes by to help him How many Children do You have: 3 Feels Safe at Home: Yes Assistive Devices: Cane Review of Systems Review of Systems: All systems reviewed & are unremarkable except as noted in HPI & below Physical Exam Physical Exam: General: Alert and oriented x 3 in no acute distress. HEENT: Normocephalic Atraumatic. Inspection normal. Cranial Nerves 2-12 Grossly intact. Nares are clear. Neck is supple. Normal inspection of face. Normal inspection of neck. Neurologic: No deficits on inspection. Baseline for motor function and sensory. Psychologic: Normal affect. Respiratory: Nonlabored. No use of accessory muscles. No tachypnea or dyspnea. Cardiovascular: No tachycardia Skin: [place] and Dry. No rashes or visible lesions. Extremities: Moving without issues. No motor deficits on inspection Lymphatics: No edema Abdomen: Soft Non-distended. No rebound or guarding. Results & Data Vital Signs (Past 12 Hours) Vital Signs Temp Pulse Pulse Resp BP BP Pulse Ox 06/22/24 07:39 96 H 18 113/82 97 06/22/24 07:01 100 H 20 98 06/22/24 06:23 92 H 20 154/88 H 98 06/22/24 05:30 94 H 18 170/88 H 99 06/22/24 05:00 108 H 18 154/98 H 97 06/22/24 03:54 104 H 06/22/24 03:54 108 H 20 188/117 H 98 06/22/24 03:22 109 H 06/22/24 03:20 36.7 C 109 H 16 202/119 H 99 O2 Del Method 06/22/24 07:39 Room Air 06/22/24 07:01 Room Air 06/22/24 06:23 06/22/24 05:30 Room Air 06/22/24 05:00 Room Air 06/22/24 03:54 06/22/24 03:54 Room Air 06/22/24 03:22 06/22/24 03:20 Room Air PG Care Time/CCT Total # of Minutes Spent Total Time Spent with Patient: Total time spent is greater than 50% in coordination of care (as documented) at patient's floor/unit and/or counseling patient: Coding Level of Care Code 98796 IN/OBS CONSULT LVL 5,80M Diagnoses Ureterolithiasis N20.1 Elevated troponin R79.89 History of cirrhosis of liver Z87.19 Chronic back pain M54.9; G89.29 GERD (gastroesophageal reflux disease) K21.9 Hx of esophageal varices Z87.19
[2024-06-22] MEDS: LACTATED RINGER'S 1,000 ML IV SCH (09:44)
[2024-06-22] MEDS: GABAPENTIN 100 MG CAP PO ONE (09:44)
[2024-06-22] MEDS ORDERED: ACETAMINOPHEN 325 MG TAB PO PRN (10:23)
--- NOTE | 2024-06-22 11:06 | Cardiology Consultation ---
Date of Consultation June 22, 2024 Assessment & Plan (1) Elevated troponin: (2) Hypertension: (3) Hepatic encephalopathy: (4) History of cirrhosis of liver: (5) Portal hypertensive gastropathy: (6) Hx of esophageal varices: (7) History of alcohol abuse: Plan 64 year old male with PMHx significant for liver cirrhosis, hepatic encephalopathy, thrombocytopenia, depression, GERD, chronic pain, esophageal varices, portal hypertensive gastropathy, suspected COPD, former smoker, and prior alcohol abuse (quit 11 years ago) who presented to [facility] on 06/22/24 for evaluation of left upper quadrant pain for past three days. He notes worsening dyspnea on exertion and intermittent exertional chest tightness that radiates across his chest and occasionally into his throat for the past 5-6 months. Denies significant cardiac history and has never followed with dry plasterer helper. EKG upon admission with sinus rhythm with frequent PVCs and possible increased TWI in inferior leads (III and aVF). High-sensitivity troponins elevated (163.5- 228.8). CT Abdomen/Pelvis (06/22/24) revealed mild hydronephrosis and left lower ureter with obstructing stone of size 3 mm with perinephric stranding. Urology consulted and recommend observation with hydration and symptom control Recommendations: * Intermittent exertional chest discomfort and dyspnea on exertion possibly secondary to unstable angina versus demand ischemia in setting of possible sepsis due obstructing kidney stone * Heart rate and blood pressure stable * Repeat STAT EKG given ongoing chest pressure * ECHO pending * Plan to repeat nuclear stress test for risk stratification after evaluation and management of possible sepsis * Hold off on starting heparin gtt given history of esophageal varices and thrombocytopenia * Continue to monitor on telemetry Case discussed and coordinated with Dr. Melo. Please see Dr. Melo notes for further recommendations. I spent a total of 45 minutes coordinating, documenting, and providing care for this patient excluding time spent in the performance of separately billed services or time spent by another provider/QHP. BECKY Chahal Department of Cardiology Supervising Physician Co-Signing Physician Notes I spent a total of 60 minutes coordinating, documenting, and providing care for this patient excluding time spent in the performance of separately billed services or time spent by another provider/QHP. 64 year old M with past medical history of Liver cirrhosis from alcohol use, esophageal varices/portal HTN, thrombocytopenia, hepatic encephalopathy, chronic chest pain presented to the ED with symptoms of LUQ abodminal pain for the past 2 days. Initially intermittent but now constant. The pain radiations to his left flank. CT of abdomen and pelvis showed mild hydronephrosis with obstructing calculus in the left lower ureter with left sided perinephric stranding. Cardiology was consulted for elevated troponins of 163 and 228. Patient states that he has been having on and off chest pain for the past 5 years. Described it as right sided sharp pain that can last for a few seconds to many days. Non exertional and non radiating. He states that he has had stress tests in the past for the chest pain and was told they were normal as per patient. No current anginal symptoms or dyspnea or syncope. On clinical examination he is euvolemic. No events noted on telemetry. Initial 2 ECGs showed sinus rhythm with PVCs but no acute ischemic changes. Repeat ECG this afternoon shows sinus rhythm with no PVCs and no acute ischemic changes. Echocardiogram done today showed preserved LV function with no wall motion abnormalities. His elevated troponins are possibly secondary to demand ischemia. Would not recommend heparin given his history of Cirrhosis/varices and thrombocytopenia. Will consider nuclear stress testing once patient's acute issues resolved for risk stratification. History of Present Illness Reason for Consultation: Elevated troponin Requesting Physician: Jan May DO Attending Physician: Yao May DO History of Present Illness 64 year old male with PMHx significant for liverr cirrhosis, hepatic encephalopathy, thrombocytopenia, depression, GERD, chronic pain, esophageal varices, portal hypertensive gastropathy, suspected COPD and prior alcohol abuse (quit 11 years ago) who presented to [facility] on 06/22/24 for evaluation of left upper quadrant pain. He reports constant left upper quadrant pain for the past three days. Abdominal discomfort exacerbated by changing positions and movement. Denies associated nausea, vomiting, fever, or chills. He notes intermittent chest tightness that radiates across his chest and occasionally into his throat for the past 5-6 months. Denies associated bilateral arm numbness or tingling. Ambulates with a cane at home. Chest discomfort occurs with exertion and rest. Denies associated nausea or diaphoresis. Notes dyspnea on exertion worsening over the past six months. Has been using rescue inhalers as needed with no improvement. Denies orthopnea, PND, worsening edema, or recent abnormal weight gain. Has rare intermittent heart fluttering that lasts for a minute at home. Denies lightheadedness, dizziness, or syncope. Has never followed with a dry plasterer helper. Denies significant history of heart problems Former smoker (1/2 ppd for approximately 10 years; Quit 40 years ago). Former alcohol abuse (Quit 11 years ago). Denies illicit drug use. Family History: Father - CABG x3 (in 60s) Allergies Allergy/AdvReac Type Severity Reaction Status Date / Time No Known Allergies Allergy Verified 12/09/23 15:06 Home Medications Medication Instructions Recorded Confirmed Type albuterol sulfate 90 mcg/actuation 2 puff inhalation Q4H PRN 04/26/24 06/22/24 Rx aerosol inhaler Shortness Of Breath Or Wheezing #6.7 grams baclofen 10 mg tablet 10 mg PO TID PRN back spasms #20 04/26/24 06/22/24 Rx tabs calcium carbonate (Tums E-X) 300 mg PO TID PRN heart burn #14 04/26/24 06/22/24 Rx tabs docusate sodium 100 mg capsule 100 mg PO BID 14 days #28 caps 04/26/24 06/22/24 Rx duloxetine 60 mg capsule,delayed 60 mg PO DAILY 14 days #14 caps 04/26/24 06/22/24 Rx release folic acid 1 mg tablet 1 mg PO DAILY 14 days #14 tabs 04/26/24 06/22/24 Rx gabapentin 100 mg capsule 100 mg PO BID 14 days #28 caps 04/26/24 06/22/24 Rx lactulose 20 gram oral packet 20 g PO TID 14 days #45 ea 04/26/24 06/22/24 Rx (Kristalose) multivitamin with folic acid 400 1 tab PO QAM 14 days #14 tabs 04/26/24 06/22/24 Rx mcg tablet (Daily-Josue (with folic acid)) pantoprazole 40 mg tablet,delayed 40 mg PO DAILY 14 days #14 tabs 04/26/24 06/22/24 Rx release (Protonix) potassium chloride 20 mEq oral 20 meq PO DAILY 14 days #14 ea 04/26/24 06/22/24 Rx packet rifaximin 550 mg tablet (Xifaxan) 550 mg PO TID 14 days #42 tabs 04/26/24 06/22/24 Rx sennosides 8.6 mg tablet (Senokot) 17.2 mg (2 x 8.6 mg) PO HS 14 days 04/26/24 06/22/24 Rx #28 tabs spironolactone 100 mg tablet 100 mg PO DAILY #14 tabs 04/26/24 06/22/24 Rx thiamine HCl (vitamin B1) 100 mg 100 mg PO DAILY 14 days #14 tabs 04/26/24 06/22/24 Rx tablet torsemide 20 mg tablet 20 mg PO BID 14 days #28 tabs 04/26/24 06/22/24 Rx valacyclovir 1 gram tablet 1,000 mg PO DAILY 14 days #14 tabs 04/26/24 06/22/24 Rx oxycodone 5 mg tablet 5 mg PO Q4H PRN moderate-severe 06/13/24 06/22/24 Rx pain #30 tabs fluticasone propionate 50 1 spray intranasal DAILY 06/22/24 06/22/24 History mcg/actuation nasal spray,suspension Patient History Medical History Increased ammonia level History of COVID-19 11/01/21 @ [facility]--he was in the hospital for weakness and confusion and they did a COVID test and was found to be positive, states he had no symptoms of covid--no symptoms now Thrombocytopenia Tobacco abuse Depression with anxiety Osteoarthritis of right knee Esophageal varices Urinary tract infection hx, recurrent Lumbar radiculopathy Lumbar disc herniation Sacroiliitis Alcoholic cirrhosis Portal vein thrombosis hx History of hepatitis C pt states he no longer has History of alcohol abuse per pt quit 2013 Hx of thrombocytopenia Baseline platelets ~ 50-75k. 2/2 cirrhosis. Hx of encephalopathy 04/2020 [facility] Hx of gynecomastia History of anemia Hypertension Hx of ascites History of cirrhosis of liver D/T ALCOHOL Hearing deficit right ear perf eardrum Surgical History History of lumbar spinal fusion (~05/27/20) x2 History of esophagogastroduodenoscopy (EGD) History of colonoscopy with polypectomy 06/2022 @ [facility] Hx of decompression of ulnar nerve RIGHT History of tooth extraction all teeth removed Family History Father Diabetes Other No family history of adverse response to anesthesia Social History Smoking Status: Heavy tobacco smoker Tobacco Type: Smokeless Tobacco (Dip or Chew) Second Hand Exposure: Yes; Do You Dip or Chew Tobacco: Yes; Tobacco Cessation Education Requested by Patient: No Hx Alcohol Use: Yes (quit 11 years ago) Alcohol type: beer Alcohol Intake Frequency Comment: history of alcoholism, quit 7 years ago Hx Substance Use: No Preferred Language: Bolivian Communication Ability: Effective Steam Distribution Supervisor Required: No Beliefs That Will Affect Care: None marital status: / Current Living Situation: Other Current Living Situation Comment: lives with friend How many Children do You have: 3 Other Information That Helps Us Care for You: No Feels Safe at Home: Yes Safety Concerns: Feels Safe At This Time Assistive Devices: Cane, Denture - Upper, Denture - Lower, Scooter/Electric Scooter and Walker Review of Systems Review of Systems: See HPI for pertinent positives. All others negative other than those noted in the HPI. CONSTITUTIONAL: No change in weight, No weakness, No fatigue, No fevers, No sweats or chills. HEENT: No visual changes, No epistaxis, No bleeding gums, No dysphagia, PULMONARY: No cough, sputum, or hemoptysis, No wheezing, No shortness of breath, and No recent change in breathing. CARDIOVASCULAR: +chest pressure/tightness, dyspnea on exertion, palpitations. No edema, No syncope, No claudication, No calf pain. GASTROINTESTINAL: +abdominal pain. No change in appetite, No abdominal pain, No change in bowel habits, No significant heartburn, No nausea, No vomiting, No diarrhea, No constipation, No blood in stools or black tarry stools, No dysphagia. HEMATOLOGIC: No abnormal bleeding and No bruising. NEUROLOGICAL: No falls, No dizziness, No lightheadedness, Normal balance, No headaches, and No weakness. PSYCH: No sleep disturbances, No mood changes. Physical Exam Physical Exam: Vital signs within normal limits as above. General: Well developed and nourished. No acute distress. A+Ox3. HEENT: Normocephalic. Atraumatic. EOMI. Conjunctiva and sclera clear. NECK: Trachea midline. No thyromegaly. No carotid bruits. No JVD. Carotid upstrokes are brisk. Heart: Tachycardic. Normal rhythm. S1 and S2 noted. No murmur. No rubs or gallops. PMI non displaced. Lungs: No acute respiratory distress. Clear to auscultation. No wheezes.No rhonchi. No rales. Abdomen: Epigastric area and left upper quadrant tender to palpation. Normal bowel sounds. Soft. No abdominal bruits. Extremities: Trace BLE edema. Normal capillary refill. No clubbing or cyanosis. Pulses: radial=2/4, dorsal pedis=2/4. Skin: Warm and dry. NEURO: No focal deficits. PSYCH: Appropriate affect and insight. Results & Data Vital Signs (Past 12 Hours) Vital Signs Temp Pulse Pulse Resp BP BP Pulse Ox 06/22/24 10:40 06/22/24 10:38 36.7 C 90 20 142/61 H 98 06/22/24 09:51 108 H 22 117/71 98 06/22/24 07:39 96 H 18 113/82 97 06/22/24 07:01 100 H 20 98 06/22/24 06:23 92 H 20 154/88 H 98 06/22/24 05:30 94 H 18 170/88 H 99 06/22/24 05:00 108 H 18 154/98 H 97 06/22/24 03:54 104 H 06/22/24 03:54 108 H 20 188/117 H 98 06/22/24 03:22 109 H 06/22/24 03:20 36.7 C 109 H 16 202/119 H 99 Pulse Ox O2 Del Method O2 Del Method 06/22/24 10:40 98 Room Air 06/22/24 10:38 Room Air 06/22/24 09:51 Room Air 06/22/24 07:39 Room Air 06/22/24 07:01 Room Air 06/22/24 06:23 06/22/24 05:30 Room Air 06/22/24 05:00 Room Air 06/22/24 03:54 06/22/24 03:54 Room Air 06/22/24 03:22 06/22/24 03:20 Room Air Laboratory Results Cardiac Enzymes 06/22/24 06/22/24 Range/Units 03:24 05:19 AST 41 H (13-39) U/L Troponin I High Sens 40.2 H 163.5 H* D (0-20) pg/ml Coagulation 06/22/24 Range/Units 03:24 PT 12.9 H (9.0-12.0) Seconds CBC 06/22/24 Range/Units 03:24 WBC 4.49 L (4.8-10.8) K/ul RBC 3.63 L (4.70-6.10) M/uL Hgb 11.1 L (14.0-18.0) g/dl Hct 33.4 L (42.0-52.0) % Plt Count 75 L (130-400) K/uL Neut # (Auto) 2.98 (1.40-6.50) K/uL Lymph # (Auto) 0.79 L (1.20-3.40) K/uL Luce # (Auto) 0.51 (0.11-0.59) K/uL Eos # (Auto) 0.16 (0.00-0.50) K/uL Baso # (Auto) 0.04 (0.00-0.20) K/uL Comprehensive Metabolic Panel 06/22/24 Range/Units 03:24 Sodium 140 (136-145) mmol/L Potassium 3.7 (3.5-5.1) mmol/L Chloride 113 H (98-107) mmol/L Carbon Dioxide 22 (21-32) mmol/L BUN 11 (6-23) mg/dl Creatinine 0.68 (0.6-1.4) mg/dl Glucose 163 H (70-99(Fasting)) mg/dl Calcium 8.9 (8.6-10.3) mg/dl AST 41 H (13-39) U/L ALT 16 (7-52) U/L Alkaline Phosphatase 107 H (34-104) U/L Total Protein 6.6 (6.0-8.3) gm/dl Albumin 3.0 L (3.4-5.0) gm/dl Intake and Output 06/21/24 06/22/24 06/22/24 22:59 06:59 14:59 Intake Total 50 / 50 1000 / 1000 Balance 50 50 1000 / 1000 Intake: IV 50 50 1000 / 1000 Sodium Chloride 0.9% 1,000 ml @ 1000 / 1000 125 mls/hr IV .Q8H AMBER Rx#: [id number] cefTRIAXone SODIUM 2,000 mg In 50 / 50 50 ml @ 100 mls/hr IV NOW STA Rx#:[id number] Other: Weight 77.6 kg Weight Measurement Method Built in [facility] Diagnostic Findings EKG 06/22/24 06:17:17 Sinus rhythm with frequent PVCs TWI in inferior leads QTc 474 EKG 06/22/24 at 03:19:16 Sinus tachycardia with frequent PVCs 104 bpm QTc 478 Chest X-Ray 06/22/24 03:37 EXAM: XR chest 1V portable CLINICAL HISTORY: left rib pain TECHNIQUE: An X-ray image of the chest is obtained in AP projection. COMPARISON: Compared to X-ray dated 06/11/2023. FINDINGS: Pulmonary Parenchyma: Accentuated bronchovascular markings of both lungs with haziness in the basal regions of both lungs. newly developed No pulmonary nodules are identified. No evidence of pleural effusion or pleural thickening. Heart and Mediastinum: Heart size and shape are normal. No mediastinal widening or masses. No hilar or mediastinal lymphadenopathy. Bony Thorax: Bony thorax appears intact without fractures or deformities. Soft Tissues: Soft tissues overlying the chest wall are unremarkable. IMPRESSION: Accentuated bronchovascular markings of both lungs with haziness in the basal regions of both lungs, clinical and lab correlation is advised. newly developed Electronically signed by Aaron Cross 06-22-2024 05:01 AM Abdomen/Pelvis CT 06/22/24 04:14 EXAM: CT abd pelvis IV con only CLINICAL HISTORY: LUQ abd pain TECHNIQUE: Contiguous axial images were obtained from the level of the diaphragm to the pubic symphysis with intravenous contrast. Coronal and sagittal reconstructions were likewise performed and indicated to increase the sensitivity for detecting clinically relevant pathology. If IV contrast material had not been administered, the likelihood of detecting abnormalities relevant to the patient's condition would have been substantially decreased. CT scan was performed according to ALARA (as low as reasonable achievable). COMPARISON: 14:25:46 HEALTH CARE LIAISON FINDINGS: The visualized lung bases are clear. The liver appears relatively smaller in size with hypertrophy of caudate lobe and shows irregular nodular surface - suggest cirrhosis of liver There is no intra or extrahepatic biliary ductal dilatation. Hepatic vasculature is patent. Evidence of dilated portal vein and splenic vein with multiple collaterals are noted at peripancreatic perigastric space, at the splenic hilum and beneath the anterior abdominal wall - suggestive of portal hypertension. Spleen appears enlarged in size measures about 16 cm. The gallbladder is present. The pancreas, and adrenal glands are unremarkable. The kidneys are normal in size and attenuation. Left kidney shows mild hydronephrosis and hydroureter up to an obstructing calculus of size 3 mm involving left lower ureter ,just proximal to vesicoureteric Junction. Left sided perinephric and periureteric fat stranding - suggestive of obstructive nephropathy changes. The ureters are normal in caliber and no ureteral calculi are seen. The bladder is normal in contour. Pelvic viscera are unremarkable. No focal or diffuse bowel wall thickening or evidence of bowel obstruction is identified. NO inflammed appendix is visualized in the right lower quadrant. Abdominal and pelvic vasculature is patent. No adenopathy or fluid collections are seen. No aggressive appearing osseous lesions are identified. Spondylodegenerative changes involving visualized spine. Intrapedicular fixation screws are seen in situ without changes of instability. IMPRESSION: 1. Cirrhosis of liver with changes of portal hypertension- stable since prior study. 2. Splenomegaly - stable since prior. 3. Left kidney shows mild hydronephrosis and hydroureter up to an obstructing calculus of size 3 mm involving left lower ureter ,just proximal to vesicoureteric Junction.- new finding. 4. Left sided perinephric and periureteric fat stranding - suggestive of obstructive nephropathy changes.- new finding. Electronically signed by Kermit Carter 06-22-2024 05:21 AM (2) Hypertension Hypertension type: unspecified Qualified Code(s): I10 - Essential (primary) hypertension
--- NOTE | 2024-06-22 14:03 | Electrocardiogram Report ---
Test Reason : Blood Pressure : */* mmHG Vent. Rate : 104 BPM Atrial Rate : 104 BPM P-R Int : 180 ms QRS Dur : 104 ms QT Int : 364 ms P-R-T Axes : 71 67 71 degrees QTcB Int : 478 ms Sinus tachycardia with Premature atrial complexes with Aberrant conduction Otherwise normal ECG When compared with ECG of 25-Apr-2024 11:09, No significant change was found Confirmed by Gordy Pinto ([id number]) on 06/22/2024 2:03:25 PM Referred By: REFERRED SELF Confirmed By: Gordy Pinto
--- NOTE | 2024-06-22 14:05 | Electrocardiogram Report ---
Test Reason : Blood Pressure : */* mmHG Vent. Rate : 97 BPM Atrial Rate : 97 BPM P-R Int : 176 ms QRS Dur : 98 ms QT Int : 374 ms P-R-T Axes : -14 0 -12 degrees QTcB Int : 474 ms Sinus rhythm with frequent Premature ventricular complexes Cannot rule out Inferior infarct , age undetermined Abnormal ECG When compared with ECG of 22-Jun-2024 03:19, (unconfirmed) Premature ventricular complexes are now Present Aberrant conduction is no longer Present Minimal criteria for Inferior infarct are now Present T wave inversion now evident in Inferior leads Confirmed by Gordy Pinto ([id number]) on 06/22/2024 2:05:29 PM Referred By: REFERRED SELF Confirmed By: Gordy Pinto
--- NOTE | 2024-06-22 14:11 | Electrocardiogram Report ---
Test Reason : Blood Pressure : */* mmHG Vent. Rate : 81 BPM Atrial Rate : 81 BPM P-R Int : 164 ms QRS Dur : 92 ms QT Int : 406 ms P-R-T Axes : 67 67 72 degrees QTcB Int : 471 ms Sinus rhythm Premature atrial complexes Otherwise normal ECG When compared with ECG of 22-Jun-2024 06:17, (unconfirmed) Premature ventricular complexes are no longer Present Minimal criteria for Inferior infarct are no longer Present T wave inversion no longer evident in Inferior leads T wave amplitude has decreased in Lateral leads Confirmed by Gordy Pinto ([id number]) on 06/22/2024 2:11:38 PM Referred By: REFERRED SELF Confirmed By: Gordy Pinto
[2024-06-22] MEDS: THIAMINE HCL 100 MG TAB PO ONE (14:14)
[2024-06-22] MEDS: rifAXIMin 550 MG TABLET PO ONE (14:14)
[2024-06-22] MEDS: rifAXIMin 550 MG TABLET PO SCH (14:14)
[2024-06-22] MEDS: FOLIC ACID 1 MG TAB PO ONE (14:15)
[2024-06-22] MEDS: DULoxetine HCL 60 MG CAP PO ONE (14:15)
[2024-06-22] MEDS: SODIUM CHLORIDE 0.9% 500 ML IV SCH (14:19)
[2024-06-22] MEDS: POTASSIUM CHLORIDE PWD 20 MEQ PACK PO ONE (14:47)
[2024-06-22] MEDS: PANTOprazole 40 MG TAB PO ONE (14:47)
[2024-06-22] MEDS: oxyCODONE HCL IR 5 MG TAB (IMMEDIATE RELEASE) PO PRN (16:11)
[2024-06-22] MEDS: BACLOFEN 10 MG TAB PO PRN (18:14)
[2024-06-22] MEDS: GABAPENTIN 100 MG CAP PO SCH (20:35)
[2024-06-23] MEDS: ONDANSETRON 4 MG OD TAB PO PRN (01:03)
[2024-06-23] MEDS: cefTRIAXone SODIUM 1,000 MG/50 ML BAG IV SCH (06:04)
[2024-06-23 06:20] LABS: Basophils # (auto) 0.03 K/uL (0.00-0.20); Eosinophils % (auto) 10.2 %; Hematocrit (blood only) 28.5 % (42.0-52.0); Hemoglobin 9.4 g/dl (14.0-18.0); Lymphocytes # (auto) 0.92 K/uL (1.20-3.40); Lymphocytes % (auto) 31.4 %; Mean Corpuscular Hemoglobin 30.7 pg (25.0-34.0); Mean Corpuscular Volume 93.1 fL (80.0-100.0); Mean Platelet Volume 10.9 fL (9.4-12.4); Monocytes # (auto) 0.44 K/uL (0.11-0.59); Neutrophils # (auto) 1.24 K/uL (1.40-6.50); Neutrophils % (auto) 42.4 %; Platelet Count 61 K/uL (130-400); RDW Standard Deviation 47.6 fL (36.4-46.3); Red Blood Count 3.06 M/uL (4.70-6.10); White Blood Count 2.93 K/ul (4.8-10.8)
[2024-06-23 07:04] LABS: Albumin Globulin Ratio 1.1 (0.9-2); BUN Creatinine Ratio 24.4 (10-20); Calcium 8.2 mg/dl (8.6-10.3); Creatinine Clr Calc Pharmacy 145.5 ml/min; Globulin 2.4 gm/dl (2.5-4.0); Potassium 3.8 mmol/L (3.5-5.1)
[2024-06-23] MEDS: DULoxetine HCL 60 MG CAP PO SCH (08:15)
[2024-06-23] MEDS: PANTOprazole 40 MG TAB PO SCH (08:15)
[2024-06-23] MEDS: THIAMINE HCL 100 MG TAB PO SCH (08:16)
[2024-06-23] MEDS: FOLIC ACID 1 MG TAB PO SCH (08:16)
[2024-06-23] MEDS: POTASSIUM CHLORIDE PWD 20 MEQ PACK PO SCH (08:16)
[2024-06-23] MEDS: SPIRONOLACTONE 100 MG TAB PO SCH (08:38)
--- NOTE | 2024-06-23 09:44 | Urology Progress Note ---
Date of Service June 23, 2024 Assessment & Plan (1) Ureterolithiasis: Plan: Follow-up of 3 mm left distal ureteral stone Patient afebrile with stable vitals Labs reviewedcreatinine 0.45, no leukocytosis Urinalysis on arrival showed blood, otherwise negative Denies stone passage Discussed options for management including trial of passage vs surgical intervention We discussed that he has a decent probability of passing his stone given size and location He has eaten this morning, so will hold off on any intervention today Continue with trial of passage with medical expulsive therapy Patient can be discharged from perspective when medically stable Continue supportive care, pain control and medical management per hospital medicine service Will arrange outpatient follow-up with our service Admission and Anticipated Discharge Date Admission Date: June 22, 2024 Subjective Patient seen and examined at bedside this morning. He is awake and sitting up at the edge of the bed. Denies stone passage. Reports some back discomfort. Voiding spontaneously. Denies nausea, vomiting, fever or chills. Review of Systems Constitutional: as per Subjective / HPI Genitourinary: + as per Subjective / HPI Physical Exam Constitutional: no acute distress Respiratory: normal respiratory effort; no respiratory distress and no labored breathing Gastrointestinal (Abdomen): Inspection/Auscultation: abdomen normal to inspection Musculoskeletal: Head/Neck/Chest: normocephalic Neurologic: moves all extremities and awake Psychiatric: Orientation: alert and oriented x 3 Results & Data Vital Signs (Past 12 Hours) Vital Signs Temp Pulse Pulse Resp BP Pulse Ox O2 Del Method 06/23/24 07:11 36.5 C 79 18 124/68 98 Room Air 06/23/24 04:43 36.4 C L 88 17 107/63 95 Room Air 06/23/24 00:00 92 H 06/23/24 00:00 36.4 C L 83 21 126/66 99 Room Air PG Care Time/CCT Total # of Minutes Spent Total Time Spent with Patient: Total time spent is greater than 50% in coordination of care (as documented) at patient's floor/unit and/or counseling patient: Coding Level of Care Code 00328 SUB INP/OBS CARE 2/35MIN Diagnoses Ureterolithiasis N20.1
--- NOTE | 2024-06-23 10:04 | Cardiology Progress Note ---
Date of Service June 23, 2024 Assessment & Plan (1) Elevated troponin: (2) Hypertension: (3) Hepatic encephalopathy: (4) History of cirrhosis of liver: (5) Portal hypertensive gastropathy: (6) Hx of esophageal varices: (7) History of alcohol abuse: Plan 64 year old male with PMHx significant for liver cirrhosis, hepatic encephalopathy, thrombocytopenia, depression, GERD, chronic pain, esophageal varices, portal hypertensive gastropathy, suspected COPD, former smoker, and prior alcohol abuse (quit 11 years ago) who presented to [facility] on 06/22/24 for evaluation of left upper quadrant pain for past three days. CT Abdomen/Pelvis (06/22/24) revealed mild hydronephrosis and left lower ureter with obstructing stone of size 3 mm with perinephric stranding. Urology consulted and recommend observation with hydration and symptom control. High-sensitivity troponin levels elevated (163.5-228.8). Initial EKG x 2 revealing sinus tachycardia and frequent PVCs. Repeat EKG this am with SR at 88 bpm with out PVCs or ST changes to suggest ischemia. QTc prolonged at 508 ms. TTecho with normal LVEF and wall motion. Question if patient has had at type II NSTEMI with demand ischemia from non cardiac illness. Plan for lexiscan nuclear stress for further risk stratifiction. Holding off on ASA or UF heparin infusion given h/o esophageal varices, mild anemai noted, and thrombocytopenia. Patient agreeable to this approach. Prolonged QTc: Avoid QT prolonging agents. Continue to observe Mir Hopkins DO Department of Cardiology Admission and Anticipated Discharge Date Admission Date: June 22, 2024 Subjective Patient seen in cardiology follow up. Pt resting comfortably , napping after having eaten break fast. Denies abdominal pain, chest pain, or shortness of breath. Telemetry reveals SR in the 80s. Physical Exam Physical Exam: Temp Pulse Resp BP Pulse Ox O2 Del Method 36.5 C 79 18 124/68 98 Room Air 06/23/24 07:11 06/23/24 07:11 06/23/24 07:11 06/23/24 07:11 06/23/24 07:11 06/23/24 07:11 General: Well developed and nourished. No acute distress. A+Ox3. HEENT: Normocephalic. Atraumatic. EOMI. Conjunctiva and sclera clear. NECK: Trachea midline. No thyromegaly. No carotid bruits. No JVD. Carotid upstrokes are brisk. Heart: Tachycardic. Normal rhythm. S1 and S2 noted. No murmur. No rubs or gallops. PMI non displaced. Lungs: No acute respiratory distress. Clear to auscultation. No wheezes.No rhonchi. No rales. Abdomen: Epigastric area and left upper quadrant tender to palpation. Normal bowel sounds. Soft. No abdominal bruits. Extremities: No LE edema. No clubbing or cyanosis. NEURO: No focal deficits. Results & Data Vital Signs (Past 12 Hours) Vital Signs Temp Pulse Pulse Resp BP Pulse Ox O2 Del Method 06/23/24 07:11 36.5 C 79 18 124/68 98 Room Air 06/23/24 04:43 36.4 C L 88 17 107/63 95 Room Air 06/23/24 00:00 92 H 06/23/24 00:00 36.4 C L 83 21 126/66 99 Room Air Laboratory Results Cardiac Enzymes 06/22/24 06/22/24 06/23/24 Range/Units 10:16 15:30 05:54 AST 27 (13-39) U/L Troponin I High Sens 228.8 H* D 140.5 H* D (0-20) pg/ml CBC 06/23/24 Range/Units 05:54 WBC 2.93 L (4.8-10.8) K/ul RBC 3.06 L (4.70-6.10) M/uL Hgb 9.4 L (14.0-18.0) g/dl Hct 28.5 L (42.0-52.0) % Plt Count 61 L (130-400) K/uL Neut # (Auto) 1.24 L (1.40-6.50) K/uL Lymph # (Auto) 0.92 L (1.20-3.40) K/uL [place] # (Auto) 0.44 (0.11-0.59) K/uL Eos # (Auto) 0.30 (0.00-0.50) K/uL Baso # (Auto) 0.03 (0.00-0.20) K/uL Comprehensive Metabolic Panel 06/23/24 Range/Units 05:54 Sodium 140 (136-145) mmol/L Potassium 3.8 (3.5-5.1) mmol/L Chloride 114 H (98-107) mmol/L Carbon Dioxide 23 (21-32) mmol/L BUN 11 (6-23) mg/dl Creatinine 0.45 L (0.6-1.4) mg/dl Glucose 96 (70-99(Fasting)) mg/dl Calcium 8.2 L (8.6-10.3) mg/dl AST 27 (13-39) U/L ALT 12 (7-52) U/L Alkaline Phosphatase 84 (34-104) U/L Total Protein 5.0 L D (6.0-8.3) gm/dl Albumin 2.6 L (3.4-5.0) gm/dl Intake and Output 06/22/24 06/23/24 06/23/24 22:59 06:59 14:59 Intake Total 500 / 2362 50 / 2362 Output Total 150 / 375 125 / 375 Balance 1986 -1986 Intake: IV 500 / 1922 50 / 1922 Sodium Chloride 0.9% 500 ml @ 500 / 500 80 mls/hr IV .Q6H15M [facility] Rx#: [id number] cefTRIAXone SODIUM 1,000 mg In 50 / 50 50 ml @ 100 mls/hr IV Q24H [facility] Rx#:[id number] Output: Urine 150 / 375 125 / 375 Other: Weight 76.6 kg Weight Measurement Method Built in [facility] (2) Hypertension Hypertension type: unspecified Qualified Code(s): I10 - Essential (primary) hypertension
--- NOTE | 2024-06-23 11:25 | Electrocardiogram Report ---
Test Reason : Blood Pressure : */* mmHG Vent. Rate : 88 BPM Atrial Rate : 88 BPM P-R Int : 178 ms QRS Dur : 94 ms QT Int : 420 ms P-R-T Axes : 72 54 68 degrees QTcB Int : 508 ms Normal sinus rhythm Low voltage QRS Prolonged QT Abnormal ECG When compared with ECG of 22-Jun-2024 12:12, Premature atrial complexes are no longer Present Confirmed by Gordy Pinto ([id number]) on 06/23/2024 11:25:29 AM Referred By: REFERRED SELF Confirmed By: Gordy Pinto
--- NOTE | 2024-06-23 12:11 | Hospitalist Progress Note ---
Date of Service June 23, 2024 Assessment & Plan (1) Myocardial infarction due to demand ischemia: (2) Hydronephrosis due to obstruction of ureter: (3) Ureterolithiasis: (4) Alcoholic cirrhosis: (5) Hypertension: (6) Hepatic encephalopathy: (7) Pancytopenia: (8) Portal hypertensive gastropathy: (9) History of hepatitis C: Plan Patient 64-year-old gentleman with chronic cirrhosis and thrombocytopenia presented to the emergency room with back pain. Noted to have ureteral stone with left hydronephrosis, also noted to have significant troponin elevation. Continue to monitor patient and telemetry unit Troponins were trended and trended downward Communication with urological team, anticipate this stone will pass and no plans for urological surgical intervention at this time, continue to strain urine Communication with cardiology team, due to his history of portal hypertension, esophageal varices, thrombocytopenia, chronic anemia did not treat with full anticoagulation. Unclear if this is a type II demand ischemia type infarction. Have patient scheduled for stress test tomorrow Continue oral pain control as needed for his ureteral stone No clear source of bacterial infection, Rocephin for 3 days for possible urinary source. Then observe off antibiotics. Admission and Anticipated Discharge Date Admission Date: June 22, 2024 Subjective Patient required some pain medication for his flank pain associated with his ureteral stone. Chest heaviness has resolved. Tolerated his breakfast. No shortness of breath. Physical Exam Physical Exam: Constitutional: Alert, nontoxic HEENT: Mucous membranes moist. Lungs: Clear to auscultation, decreased, no wheezes rales or rhonchi CV: S1-S2, regular Abdomen: Soft, nontender, nondistended, some mild right CVA tenderness Extremities: No significant edema Neuro: No focal deficits Psych: Cooperative, normal mood Results & Data Results & Data Vital Signs (Past 12 Hours) Vital Signs Temp Pulse Resp BP Pulse Ox O2 Del Method 06/23/24 07:11 36.5 C 79 18 124/68 98 Room Air 06/23/24 04:43 36.4 C L 88 17 107/63 95 Room Air Diagnostic Findings Reviewed imaging, laboratory and diagnostic studies. Pertinent findings as below. Personally reviewed EKG from today, sinus rhythm, no acute ST-T wave changes Troponin reviewed, decreased to 140.5 Electrolytes and renal function stable WBCs 2.9 Hemoglobin 9.4 Platelets of 61 (5) Hypertension Hypertension type: unspecified Qualified Code(s): I10 - Essential (primary) hypertension
[2024-06-23] MEDS: ALBUTEROL HFA 8 GM INHALER INH PRN (23:41)
[2024-06-24 06:28] LABS: Hematocrit (blood only) 27.9 % (42.0-52.0); Hemoglobin 9.4 g/dl (14.0-18.0); Mean Corpuscular Hemoglobin 31.5 pg (25.0-34.0); Mean Corpuscular Hgb Conc 33.7 g/dL (32.0-36.0); Mean Corpuscular Volume 93.6 fL (80.0-100.0); Mean Platelet Volume 11.5 fL (9.4-12.4); Platelet Count 62 K/uL (130-400); RDW Coefficient of Variation 13.9 % (11.5-14.5); RDW Standard Deviation 47.4 fL (36.4-46.3); Red Blood Count 2.98 M/uL (4.70-6.10); White Blood Count 3.25 K/ul (4.8-10.8)
[2024-06-24 07:02] LABS: Calcium 8.3 mg/dl (8.6-10.3); Creatinine Clr Calc Pharmacy 131.1 ml/min; Magnesium 1.7 mg/dl (1.7-2.4); Potassium 3.7 mmol/L (3.5-5.1)
[2024-06-24] MEDS: REGADENOSON 0.4 MG/5 ML SYR IV ONE (10:49)
--- NOTE | 2024-06-24 11:08 | Cardiology Progress Note ---
Date of Service June 24, 2024 Assessment & Plan (1) Elevated troponin: (2) Hypertension: (3) Hepatic encephalopathy: (4) History of cirrhosis of liver: (5) Portal hypertensive gastropathy: (6) Hx of esophageal varices: (7) History of alcohol abuse: Plan 64 year old male with PMHx significant for liver cirrhosis, hepatic encephalopathy, thrombocytopenia, depression, GERD, chronic pain, esophageal varices, portal hypertensive gastropathy, suspected COPD, former smoker, and prior alcohol abuse (quit 11 years ago) who presented to [facility] on 06/22/24 for evaluation of left upper quadrant pain for the previous three days. CT Abdomen/Pelvis (06/22/24) revealed mild hydronephrosis and left lower ureter with obstructing stone of size 3 mm with perinephric stranding. Urology consulted and recommend observation with hydration and symptom control. High-sensitivity troponin levels elevated (163.5-->228.8--> 140.5 pg/ml). Initial EKG x 2 revealing sinus tachycardia and frequent PVCs. TTecho with normal LVEF and wall motion. Question if patient has had at type II NSTEMI with demand ischemia from non cardiac illness. Lexiscan nuclear stress performed am of 06/23/24 for further risk stratification. Perfusion images are currently pending and will be reviewed when available. Holding off on ASA or UF heparin infusion given h/o esophageal varices, mild anemia noted, and thrombocytopenia. Prolonged QTc: Avoid QT prolonging agents. Continue to observe Mir Hopkins DO Department of Cardiology Admission and Anticipated Discharge Date Admission Date: June 22, 2024 Subjective Patient seen in cardiology follow up in the nuclear medicine department prior to and during nuclear stress test. Notes chest pain this am. Somewhat poorly described by patient. Patient with ongoing somnolence. Telemetry reveals SR in the 70-90s with occasional PVCs. Physical Exam Physical Exam: Temp Pulse Resp BP Pulse Ox O2 Del Method 36.4 C L 74 18 134/77 100 Room Air 06/24/24 10:53 06/24/24 10:53 06/24/24 10:53 06/24/24 10:53 06/24/24 10:53 06/24/24 10:53 General: Well developed and nourished. No acute distress. A+Ox3. HEENT: Normocephalic. Atraumatic. EOMI. Conjunctiva and sclera clear. NECK: Trachea midline. No thyromegaly. No carotid bruits. No JVD. Carotid upstrokes are brisk. Heart: Tachycardic. Normal rhythm. S1 and S2 noted. No murmur. No rubs or gallops. PMI non displaced. Lungs: No acute respiratory distress. Clear to auscultation. No wheezes.No rhonchi. No rales. Abdomen: Epigastric area and left upper quadrant tender to palpation. Normal bowel sounds. Soft. No abdominal bruits. Extremities: No LE edema. No clubbing or cyanosis. NEURO: No focal deficits. Results & Data Laboratory Results CBC 06/24/24 Range/Units 06:06 WBC 3.25 L (4.8-10.8) K/ul RBC 2.98 L (4.70-6.10) M/uL Hgb 9.4 L (14.0-18.0) g/dl Hct 27.9 L (42.0-52.0) % Plt Count 62 L (130-400) K/uL Comprehensive Metabolic Panel 06/24/24 Range/Units 06:06 Sodium 138 (136-145) mmol/L Potassium 3.7 (3.5-5.1) mmol/L Chloride 111 H (98-107) mmol/L Carbon Dioxide 25 (21-32) mmol/L BUN 13 (6-23) mg/dl Creatinine 0.50 L (0.6-1.4) mg/dl Glucose 128 H (70-99(Fasting)) mg/dl Calcium 8.3 L (8.6-10.3) mg/dl Intake and Output 06/23/24 06/24/24 06/24/24 22:59 06:59 14:59 Intake Total 480 / 1180 Output Total 550 / 1000 Balance -70 / 180 Intake: Oral 480 / 1180 Output: Urine 550 / 1000 Other: Weight 76.8 kg Weight Measurement Method Built in [facility] Diagnostic Findings EKG on 06/24/24, Interpreted independently: Sinus rhythm 80 bpm with occasional PVCs. Normal ST segments. (2) Hypertension Hypertension type: unspecified Qualified Code(s): I10 - Essential (primary) hypertension
--- NOTE | 2024-06-24 12:55 | Hospitalist Progress Note ---
Date of Service June 24, 2024 Assessment & Plan (1) Myocardial infarction due to demand ischemia: Plan: Presented with left upper quadrant pain and found to have elevated troponin Likely has type II NSTEMI secondary to demand ischemia Not on any aspirin and/or heparin due to pancytopenia and history of cirrhosis with gastropathy Appreciate cardiology input recommendation Denies any chest pain and/or palpitation Has had Lexiscan on 06/24/2024 and awaiting results Will ask for PT and OT evaluation (2) Hydronephrosis due to obstruction of ureter: Plan: Presented with left upper quadrant pain and found to have obstructive left ureteric stone No evidence of UTI and blood cultures have been negative Stone is about 3 mm and is in the left distal ureter Appreciate urology input and recommendation For supportive care, pain control and medical management Will have outpatient follow-up with urologist on discharge (3) Ureterolithiasis: Plan: As above (4) Alcoholic cirrhosis: Plan: History of alcoholic cirrhosis No evidence of significant ascites and/or GI bleed Pancytopenia secondary to alcoholism Will monitor CBC and PRP (5) Hypertension: (6) Hepatic encephalopathy: (7) Pancytopenia: (8) Portal hypertensive gastropathy: Plan: No evidence of GI bleed Hemoglobin remains stable at 9.4 (9) History of hepatitis C: Plan Notes from prior hospitalist: Patient 64-year-old gentleman with chronic cirrhosis and thrombocytopenia presented to the emergency room with back pain. Noted to have ureteral stone with left hydronephrosis, also noted to have significant troponin elevation. Continue to monitor patient and telemetry unit Troponins were trended and trended downward Communication with urological team, anticipate this stone will pass and no plans for urological surgical intervention at this time, continue to strain urine Communication with cardiology team, due to his history of portal hypertension, esophageal varices, thrombocytopenia, chronic anemia did not treat with full anticoagulation. Unclear if this is a type II demand ischemia type infarction. Have patient scheduled for stress test tomorrow Continue oral pain control as needed for his ureteral stone No clear source of bacterial infection, Rocephin for 3 days for possible urinary source. Then observe off antibiotics. Admission and Anticipated Discharge Date Admission Date: June 22, 2024 Subjective 06/24/2024 The patient was seen and examined in telemetry unit He has been stable with persistence of weakness and tiredness No significant chest pain, palpitation or shortness of breath Minimal pain at the back Review of Systems Review of Systems: All systems reviewed and are unremarkable except as noted below Physical Exam Physical Exam: Sitting at the edge of the bed without any acute distress Constitutional: + ill appearing and average body habitus Eyes: PERRL, conjunctivae normal, anicteric sclerae ENMT: external ear and nose normal, oropharynx normal Neck: trachea midline, no thyromegaly Respiratory: no respiratory distress Auscultation: + diminished lung sounds and + crackles ( bibasilar crackles) Cardiovascular: Rate/Rhythm: regular rate and regular rhythm; not tachycardic Heart Sounds: normal S1 and normal S2; no murmur Extremities: + edema ( trace to 1+ edema bilaterally) Gastrointestinal (Abdomen): Inspection/Auscultation: normal bowel sounds; abdomen not distended Percussion/Palpation: abdomen soft; abdomen nontender Musculoskeletal: No acute arthritis involving any of the joint Neurologic: normal touch/pain/proprioception and moves all extremities; no focal motor deficits Generally weak and lethargic Lymphatic: no cervical or axillary lymphadenopathy Results & Data Results & Data Vital Signs (Past 12 Hours) Vital Signs Temp Pulse Resp BP Pulse Ox O2 Del Method 06/24/24 10:53 36.4 C L 74 18 134/77 100 Room Air 06/24/24 09:00 Room Air 06/24/24 07:57 36.6 C 76 18 142/78 H 98 Room Air 06/24/24 04:02 36.8 C 80 16 136/88 95 Room Air Laboratory Results Short CBC 06/24/24 Range/Units 06:06 WBC 3.25 L (4.8-10.8) K/ul Hgb 9.4 L (14.0-18.0) g/dl Hct 27.9 L (42.0-52.0) % Plt Count 62 L (130-400) K/uL BMP 06/24/24 06:06 Sodium 138 Potassium 3.7 Chloride 111 H Carbon Dioxide 25 BUN 13 Creatinine 0.50 L Glucose 128 H Calcium 8.3 L Medications Administered Current Inpatient Medications Acetaminophen (Acetaminophen 325 Mg Tab) 650 mg PO Q4H PRN PRN Reason: Pain or Fever Stop: 07/22/24 10:22 Albuterol (Albuterol Hfa 8 Gm Inhaler) 2 puffs INH Q4H PRN PRN Reason: Shortness Of Breath Or Wheezing Stop: 07/22/24 13:50 Last Admin: 06/23/24 23:41 Dose: 2 puffs Baclofen (Baclofen 10 Mg Tab) 10 mg PO TID PRN PRN Reason: back spasms Stop: 07/22/24 08:51 Last Admin: 06/24/24 02:12 Dose: 10 mg Duloxetine HCl (Duloxetine Hcl 60 Mg Cap) 60 mg PO DAILY [facility] Stop: 07/23/24 08:59 Last Admin: 06/24/24 10:55 Dose: 60 mg Folic Acid (Folic Acid 1 Mg Tab) 1 mg PO DAILY [facility] Stop: 07/23/24 08:59 Last Admin: 06/24/24 10:55 Dose: 1 mg Gabapentin (Gabapentin 100 Mg Cap) 100 mg PO BID [facility] Stop: 07/22/24 20:59 Last Admin: 06/24/24 10:55 Dose: 100 mg Ondansetron HCl (Ondansetron 4 Mg Od Tab) 4 mg PO Q4H PRN PRN Reason: Nausea And Vomiting Stop: 07/23/24 00:09 Last Admin: 06/23/24 01:03 Dose: 4 mg Oxycodone HCl (Oxycodone Hcl Ir 5 Mg Tab (Immediate Release)) 5 mg PO Q4H PRN PRN Reason: moderate-severe pain Stop: 07/06/24 08:51 Last Admin: 06/24/24 11:04 Dose: 5 mg Pantoprazole Sodium (Pantoprazole 40 Mg Tab) 40 mg PO DAILY [facility] Stop: 07/23/24 08:59 Last Admin: 06/24/24 10:56 Dose: 40 mg Potassium Chloride (Potassium Chloride Pwd 20 Meq Pack) 20 meq PO DAILY [facility] Stop: 07/23/24 08:59 Last Admin: 06/24/24 10:55 Dose: 20 meq Rifaximin (Rifaximin 550 Mg Tablet) 550 mg PO TID [facility] Stop: 07/22/24 13:59 Last Admin: 06/24/24 10:56 Dose: 550 mg Spironolactone (Spironolactone 100 Mg Tab) 100 mg PO DAILY [facility] Stop: 07/23/24 08:59 Last Admin: 06/24/24 10:56 Dose: 100 mg Thiamine HCl (Thiamine Hcl 100 Mg Tab) 100 mg PO DAILY [facility] Stop: 07/23/24 08:59 Last Admin: 06/24/24 10:56 Dose: 100 mg (5) Hypertension Hypertension type: unspecified Qualified Code(s): I10 - Essential (primary) hypertension
--- NOTE | 2024-06-24 13:15 | Electrocardiogram Report ---
Test Reason : Blood Pressure : */* mmHG Vent. Rate : 88 BPM Atrial Rate : 88 BPM P-R Int : 180 ms QRS Dur : 98 ms QT Int : 404 ms P-R-T Axes : 69 66 71 degrees QTcB Int : 488 ms Sinus rhythm with frequent Premature ventricular complexes QTcB >= 480 msec Abnormal ECG When compared with ECG of 23-Jun-2024 06:31, Premature ventricular complexes are now Present Confirmed by Gordy Pinto ([id number]) on 06/24/2024 1:15:39 PM Referred By: REFERRED SELF Confirmed By: Gordy Pinto
--- NOTE | 2024-06-24 15:52 | Myocardial Perfusion Study ---
Date of Service June 24, 2024 Myocardial Perfusion Study [facility] Myocardial Perfusion Study Report Procedure: 1. Myocardial perfusion study performed in multiple views/images 2. Lexiscan pharmacologic stress ECG Indications: Chest discomfort, mildly elevated troponin Ordering physician: Gene Hopkins DO Procedural details: For the stress portion of the study, Lexiscan 0.4 mg was intravenously administered followed by a saline flush. This was followed by 31.7 mCi of technetium 99m Cardiolite, injected at 9:45 AM on 06/24/2024. 30 minutes following the injection, imaging of the heart was performed in multiple projections. For the rest portion of the study, 9.9 mCi technetium 99m Cardiolite was injected intravenously at 7:45 AM on 06/24/2024. 1 hour following the injection, imaging of the heart was performed in the same projections. Lexiscan stress ECG: Resting ECG demonstrated: Sinus rhythm in the 70s with normal ST segments Maximum heart rate: 95 bpm Maximal, age-predicted heart rate: 60% Resting blood pressure: 137/62 mmHg Maximum blood pressure: 137/62 mmHg, lowest blood pressure 108/45 mmHg The stress EKG response is negative for ischemia. Arrhythmia: Frequent PVCs noted with pharmacologic stress, the results in the post-rest recovery interval. Symptoms: Transient headache. No chest discomfort reported. Findings: Rotating raw imaging demonstrated no significant lung uptake. There is no significant motion artifact. There is mild extracardiac radiopharmaceutical uptake adjacent to the inferolateral wall. Heart size appeared normal. Stress myocardial perfusion images reveal a small sized apical perfusion defect of moderate intensity. The resting perfusion images revealed reperfusion of the apical perfusion defect. Ejection fraction: The calculated left ventricular ejection fraction post-rest= 49% by the gated SPECT technique, but appears to be qualitatively normal on visual inspection. Wall motion: Normal No significant transient ischemic dilation. Impression: 1. The pharmacologic myocardial perfusion imaging study is mildly abnormal with a small sized reversible apical perfusion defect consistent with ischemia in that territory. 2. No symptoms suggestive of angina reported with pharmacologic stress. 3. The stress ECG response is negative for ischemia. Frequent PVCs noted the resolved in the post-rest recovery interval. 4. The calculated left ventricular ejection fraction= 49% (gated SPECT technique ) with normal LV wall motion. The left ventricular ejection fraction was qualitatively normal in the calculated ejection fraction of 49% is felt to likely be an underestimation based on the echocardiogram results. Gene Hopkins DO Cardiology
--- NOTE | 2024-06-24 15:57 | Communication Note ---
Date of Service: June 24, 2024 Nuclear stress test reveals a small area of apical ischemia. Given patient's history of anemia and thrombocytopenia with noted history of cirrhosis and esop hageal varices, patient is felt to be a suboptimal candidate for antiplatelet therapy and coronary revascularization. Proceed with intensified medication therapy. Will start with carvedilol 3.125 mg twice daily. As a nonselective beta-louis, this should offer blood pressure lowering, antianginal effect, and helpful for the treatment of the esophageal varices. Nadolol is another good option, however per my review of the [employer] formulary, the medication is not on formulary and would need special authorization. Will start with a trial of isosorbide mononitrate, 50 mg by mouth daily. Hold off on aspirin therapy, statin therapy given liver disease, anemia, esophageal varices. Test results and plan reviewed with patient in detail.
[2024-06-24] MEDS: carvediloL 3.125 MG TAB PO SCH (16:42)
[2024-06-25 06:24] LABS: Basophils # (auto) 0.04 K/uL (0.00-0.20); Basophils % (auto) 1.3 %; Eosinophils # (auto) 0.37 K/uL (0.00-0.50); Hematocrit (blood only) 27.5 % (42.0-52.0); Hemoglobin 9.1 g/dl (14.0-18.0); Lymphocytes # (auto) 0.95 K/uL (1.20-3.40); Lymphocytes % (auto) 30.7 %; Mean Corpuscular Hemoglobin 31.1 pg (25.0-34.0); Mean Corpuscular Hgb Conc 33.1 g/dL (32.0-36.0); Mean Corpuscular Volume 93.9 fL (80.0-100.0); Mean Platelet Volume 11.3 fL (9.4-12.4); Monocytes # (auto) 0.44 K/uL (0.11-0.59); Monocytes % (auto) 14.2 %; Neutrophils # (auto) 1.29 K/uL (1.40-6.50); Neutrophils % (auto) 41.8 %; Platelet Count 59 K/uL (130-400); RDW Standard Deviation 47.8 fL (36.4-46.3); Red Blood Count 2.93 M/uL (4.70-6.10); White Blood Count 3.09 K/ul (4.8-10.8)
[2024-06-25 06:42] LABS: BUN Creatinine Ratio 23.1 (10-20); Bilirubin,Total 0.7 mg/dl (0.2-1.0); Calcium 8.4 mg/dl (8.6-10.3); Creatinine Clr Calc Pharmacy 102.5 ml/min; Globulin 2.6 gm/dl (2.5-4.0); Magnesium 1.7 mg/dl (1.7-2.4); Phosphorus 3.7 mg/dl (2.5-4.9); Potassium 3.7 mmol/L (3.5-5.1); Total Protein 5.3 gm/dl (6.0-8.3)
[2024-06-25 07:46] VITALS: RESP 18; TEMP 97.9
[2024-06-25] MEDS: ISOSORBIDE MONO EXTENDED REL 30 MG TABCR PO SCH (08:51)
--- NOTE | 2024-06-25 10:51 | Cardiology Progress Note ---
Date of Service June 25, 2024 Assessment & Plan (1) Elevated troponin: (2) Hypertension: (3) Hepatic encephalopathy: (4) History of cirrhosis of liver: (5) Portal hypertensive gastropathy: (6) Hx of esophageal varices: (7) History of alcohol abuse: Plan 64 year old male with PMHx significant for liver cirrhosis, hepatic encephalopathy, thrombocytopenia, depression, GERD, chronic pain, esophageal varices, portal hypertensive gastropathy, suspected COPD, former smoker, and prior alcohol abuse (quit 11 years ago) who presented to [facility] on 06/22/24 for evaluation of left upper quadrant pain for the previous three days. CT Abdomen/Pelvis (06/22/24) revealed mild hydronephrosis and left lower ureter with obstructing stone of size 3 mm with perinephric stranding. Urology consulted and recommend observation with hydration and symptom control. High-sensitivity troponin levels elevated (163.5-->228.8--> 140.5 pg/ml). Initial EKG x 2 revealing sinus tachycardia and frequent PVCs. TTecho with normal LVEF and wall motion. Question if patient has had at type II NSTEMI with demand ischemia from non cardiac illness. Lexiscan nuclear stress performed am of 06/23/24 for further risk stratification. Nuclear stress test reveals a small area of apical ischemia. Given patient's history of anemia and thrombocytopenia with noted history of cirrhosis and esophageal varices, patient is felt to be a suboptimal candidate for antiplatelet therapy and coronary revascularization. Proceed with intensified medication therapy. Will start with carvedilol 3.125 mg twice daily. As a nonselective beta-louis, this should offer blood pressure lowering, antianginal effect, and helpful for the treatment of the esophageal varices. Nadolol is another good option, if determined to be affordable. Patient receives his medications from a local [facility] pharmacy. Trial of isosorbide mononitrate, 15 mg by mouth daily. Increase to 30 mg at discharge. Hold off on aspirin therapy, statin therapy given liver disease, anemia, esophageal varices. Mir Hopkins DO Department of Cardiology Admission and Anticipated Discharge Date Admission Date: June 22, 2024 Subjective Patient seen in cardiology follow up of chest pain. Denies acute complaints. Telemetry reveals SR in the 60s with occasional PVCs. Physical Exam Physical Exam: Temp Pulse Resp BP Pulse Ox O2 Del Method 36.6 C 63 18 130/64 96 Room Air 06/25/24 07:45 06/25/24 07:45 06/25/24 07:45 06/25/24 07:45 06/25/24 07:45 06/25/24 10:24 General: Well developed and nourished. No acute distress. A+Ox3. HEENT: Normocephalic. Atraumatic. EOMI. Conjunctiva and sclera clear. NECK: Trachea midline. No thyromegaly. No carotid bruits. No JVD. Carotid upstrokes are brisk. Heart: Tachycardic. Normal rhythm. S1 and S2 noted. No murmur. No rubs or gallops. PMI non displaced. Lungs: No acute respiratory distress. Clear to auscultation. No wheezes.No rhonchi. No rales. Abdomen: Epigastric area and left upper quadrant tender to palpation. NO R FLANK TENDERNESS ON PALPATION Normal bowel sounds. Soft. No abdominal bruits. Extremities: No LE edema. No clubbing or cyanosis. NEURO: No focal deficits. Results & Data Vital Signs (Past 12 Hours) Vital Signs Temp Pulse Pulse Resp BP BP Pulse Ox 06/25/24 10:24 06/25/24 07:45 36.6 C 63 18 130/64 96 06/25/24 07:21 69 06/25/24 03:20 36.5 C 65 16 106/74 95 06/24/24 23:22 36.5 C 68 16 110/59 L 99 O2 Del Method 06/25/24 10:24 Room Air 06/25/24 07:45 Room Air 06/25/24 07:21 06/25/24 03:20 Room Air 06/24/24 23:22 Room Air (2) Hypertension Hypertension type: unspecified Qualified Code(s): I10 - Essential (primary) hypertension
[2024-06-25 11:15] VITALS: BP 98/61; PULSE 64; O2SAT 98
--- NOTE | 2024-06-25 11:16 | Hospitalist Progress Note ---
Date of Service June 25, 2024 Assessment & Plan (1) Myocardial infarction due to demand ischemia: Plan: Presented with left upper quadrant pain and found to have elevated troponin Likely has type II NSTEMI secondary to demand ischemia Not on any aspirin and/or heparin due to pancytopenia and history of cirrhosis with gastropathy Appreciate cardiology input recommendation Denies any chest pain and/or palpitation Has had Lexiscan on 06/24/2024 and showed small area of apical ischemia. Medical management not for any further testing given significant other comorbid conditions. Will be discharged on 30 mg of isosorbide mononitrate and no aspirin and/or statin will be given Will ask for PT and OT evaluation PT recommended home health care and the patient will be discharged home this afternoon (2) Hydronephrosis due to obstruction of ureter: Plan: Presented with left upper quadrant pain and found to have obstructive left ureteric stone No evidence of UTI and blood cultures have been negative Stone is about 3 mm and is in the left distal ureter Appreciate urology input and recommendation For supportive care, pain control and medical management Will have outpatient follow-up with urologist on discharge Denies any neurological symptoms (3) Ureterolithiasis: Plan: As above (4) Alcoholic cirrhosis: Plan: History of alcoholic cirrhosis No evidence of significant ascites and/or GI bleed Pancytopenia secondary to alcoholism Hemoglobin and kidney function remain stable (5) Hypertension: (6) Hepatic encephalopathy: (7) Pancytopenia: (8) Portal hypertensive gastropathy: Plan: No evidence of GI bleed Hemoglobin remains stable at 9.4 (9) History of hepatitis C: Plan Notes from prior hospitalist: Patient 64-year-old gentleman with chronic cirrhosis and thrombocytopenia presented to the emergency room with back pain. Noted to have ureteral stone with left hydronephrosis, also noted to have significant troponin elevation. Continue to monitor patient and telemetry unit Troponins were trended and trended downward Communication with urological team, anticipate this stone will pass and no plans for urological surgical intervention at this time, continue to strain urine Communication with cardiology team, due to his history of portal hypertension, esophageal varices, thrombocytopenia, chronic anemia did not treat with full anticoagulation. Unclear if this is a type II demand ischemia type infarction. Have patient scheduled for stress test tomorrow Continue oral pain control as needed for his ureteral stone No clear source of bacterial infection, Rocephin for 3 days for possible urinary source. Then observe off antibiotics. Admission and Anticipated Discharge Date Admission Date: June 22, 2024 Subjective 06/24/2024 The patient was seen and examined in telemetry unit He has been stable with persistence of weakness and tiredness No significant chest pain, palpitation or shortness of breath Minimal pain at the back 06/25/2024 The patient was seen and examined in telemetry unit He remains stable and does not have any significant symptoms Remains weak and lethargic PT recommended home health care and he will be discharged home this afternoon Review of Systems Review of Systems: All systems reviewed and are unremarkable except as noted below Physical Exam Physical Exam: Sitting at the edge of the bed without any acute distress Constitutional: + ill appearing and average body habitus Eyes: PERRL, conjunctivae normal, anicteric sclerae ENMT: external ear and nose normal, oropharynx normal Neck: trachea midline, no thyromegaly Respiratory: no respiratory distress Auscultation: + diminished lung sounds and + crackles ( bibasilar crackles) Cardiovascular: Rate/Rhythm: regular rate and regular rhythm; not tachycardic Heart Sounds: normal S1 and normal S2; no murmur Extremities: + edema ( trace to 1+ edema bilaterally) Gastrointestinal (Abdomen): Inspection/Auscultation: normal bowel sounds; abdomen not distended Percussion/Palpation: abdomen soft; abdomen nontender Musculoskeletal: No acute arthritis involving any of the joint Neurologic: normal touch/pain/proprioception and moves all extremities; no focal motor deficits Lymphatic: no cervical or axillary lymphadenopathy Results & Data Results & Data Vital Signs (Past 12 Hours) Vital Signs Temp Pulse Pulse Resp BP BP Pulse Ox 06/25/24 10:24 06/25/24 07:45 36.6 C 63 18 130/64 96 06/25/24 07:21 69 06/25/24 03:20 36.5 C 65 16 106/74 95 06/24/24 23:22 36.5 C 68 16 110/59 L 99 O2 Del Method 06/25/24 10:24 Room Air 06/25/24 07:45 Room Air 06/25/24 07:21 06/25/24 03:20 Room Air 06/24/24 23:22 Room Air Laboratory Results Short CBC 06/25/24 Range/Units 05:34 WBC 3.09 L (4.8-10.8) K/ul Hgb 9.1 L (14.0-18.0) g/dl Hct 27.5 L (42.0-52.0) % Plt Count 59 L (130-400) K/uL BMP 06/25/24 05:34 Sodium 137 Potassium 3.7 Chloride 109 H Carbon Dioxide 25 BUN 15 Creatinine 0.65 Glucose 148 H Calcium 8.4 L Liver Function 06/25/24 Range/Units 05:34 Total Bilirubin 0.7 (0.2-1.0) mg/dl AST 29 (13-39) U/L ALT 12 (7-52) U/L Alkaline Phosphatase 81 (34-104) U/L Albumin 2.7 L (3.4-5.0) gm/dl Medications Administered Current Inpatient Medications Acetaminophen (Acetaminophen 325 Mg Tab) 650 mg PO Q4H PRN PRN Reason: Pain or Fever Stop: 07/22/24 10:22 Albuterol (Albuterol Hfa 8 Gm Inhaler) 2 puffs INH Q4H PRN PRN Reason: Shortness Of Breath Or Wheezing Stop: 07/22/24 13:50 Last Admin: 06/24/24 20:14 Dose: 2 puffs Baclofen (Baclofen 10 Mg Tab) 10 mg PO TID PRN PRN Reason: back spasms Stop: 07/22/24 08:51 Last Admin: 06/24/24 02:12 Dose: 10 mg Carvedilol (Carvedilol 3.125 Mg Tab) 3.125 mg PO BIDM [facility] Stop: 07/24/24 16:59 Last Admin: 06/25/24 08:51 Dose: 3.125 mg Duloxetine HCl (Duloxetine Hcl 60 Mg Cap) 60 mg PO DAILY [facility]BER Stop: 07/23/24 08:59 Last Admin: 06/25/24 08:52 Dose: 60 mg Folic Acid (Folic Acid 1 Mg Tab) 1 mg PO DAILY [facility]BER Stop: 07/23/24 08:59 Last Admin: 06/25/24 08:52 Dose: 1 mg Gabapentin (Gabapentin 100 Mg Cap) 100 mg PO BID [facility] Stop: 07/22/24 20:59 Last Admin: 06/25/24 08:52 Dose: 100 mg Isosorbide Mononitrate (Isosorbide [place] Extended Rel 30 Mg Tabcr) 15 mg PO DAILY AMBER Stop: 07/25/24 08:59 Last Admin: 06/25/24 08:51 Dose: 15 mg Ondansetron HCl (Ondansetron 4 Mg Od Tab) 4 mg PO Q4H PRN PRN Reason: Nausea And Vomiting Stop: 07/23/24 00:09 Last Admin: 06/23/24 01:03 Dose: 4 mg Oxycodone HCl (Oxycodone Hcl Ir 5 Mg Tab (Immediate Release)) 5 mg PO Q4H PRN PRN Reason: moderate-severe pain Stop: 07/06/24 08:51 Last Admin: 06/25/24 08:57 Dose: 5 mg Pantoprazole Sodium (Pantoprazole 40 Mg Tab) 40 mg PO DAILY [facility] Stop: 07/23/24 08:59 Last Admin: 06/25/24 08:52 Dose: 40 mg Potassium Chloride (Potassium Chloride Pwd 20 Meq Pack) 20 meq PO DAILY [facility] Stop: 07/23/24 08:59 Last Admin: 06/25/24 08:52 Dose: 20 meq Rifaximin (Rifaximin 550 Mg Tablet) 550 mg PO TID [facility] Stop: 07/22/24 13:59 Last Admin: 06/25/24 08:52 Dose: 550 mg Spironolactone (Spironolactone 100 Mg Tab) 100 mg PO DAILY [facility] Stop: 07/23/24 08:59 Last Admin: 06/25/24 08:52 Dose: 100 mg Thiamine HCl (Thiamine Hcl 100 Mg Tab) 100 mg PO DAILY [facility] Stop: 07/23/24 08:59 Last Admin: 06/25/24 08:52 Dose: 100 mg (5) Hypertension Hypertension type: unspecified Qualified Code(s): I10 - Essential (primary) hypertension
--- NOTE | 2024-06-25 15:02 | Discharge Summary ---
Date of Service June 25, 2024 Admission HPI Per Admitting Provider The patient is a 64-year-old male with a past medical history of alcohol abuse, liver cirrhosis, hepatic encephalopathy, thrombocytopenia, depression, GERD, chronic pain, esophageal varices, portal hypertensive gastropathy, suspected COPD who presents to the ED on 06/22/2024 with complaints of left upper quadrant pain x 48 hours. Patient reports that abdominal pain was initially intermittent but became constant. He also reports radiation from the left upper quadrant to the left mid back. Denies any nausea/vomiting/diarrhea. Denies any fever/chills. Denies any recent change in medications and reports compliance with medications. Denies smoking Reports quitting drinking about 11 years ago On arrival to the ED, labs remarkable for WBC 4.49, platelets 75, INR 1.2, chloride 113, glucose 163, total bilirubin 1.5, AST 41, alk phos 107, initial troponin 40, repeat troponin 163 Urinalysis fairly unremarkable, EKG without acute changes abdomen/pelvis CT showed: 1. Cirrhosis of liver with changes of portal hypertension- stable since prior study. 2. Splenomegaly - stable since prior. 3. Left kidney shows mild hydronephrosis and hydroureter up to an obstructing calculus of size 3 mm involving left lower ureter ,just proximal to vesicoureteric Junction.- new finding. 4. Left sided perinephric and periureteric fat stranding - suggestive of obstructive nephropathy changes.- new finding. The patient will be admitted for further management of left-sided kidney stone Admission Exam Per Admitting Provider Constitutional: WD/WN, vitals as above Eyes: PERRL, conjunctivae normal, anicteric sclerae ENMT: external ear and nose normal, oropharynx normal Neck: trachea midline, no thyromegaly Respiratory: normal respiratory effort, lungs clear to auscultation Cardiovascular: RRR, no murmur, no edema Gastrointestinal (Abdomen): normal bowel sounds, soft, nontender, no hepatosplenomegaly (Mild tenderness left upper quadrant, no guarding) Percussion/Palpation: + abdomen tender; no guarding Musculoskeletal: no cyanosis or clubbing, extremities motor strength 5/5 Skin: no rashes, warm and dry Neurologic: PERRL, EOMI, accommodation nl, no face palsy, no dysarthria Lymphatic: no cervical or axillary lymphadenopathy Principal Diagnosis NSTEMI , left hydronephrosis with obstructive ureteric stone, alcoholic cirrhosis, pancytopenia Discharge Exam Sitting at the edge of the bed without any acute distress Constitutional + ill appearing and average body habitus Eyes PERRL, conjunctivae normal, anicteric sclerae ENMT external ear and nose normal, oropharynx normal Neck trachea midline, no thyromegaly Respiratory no respiratory distress Auscultation: + diminished lung sounds and + crackles ( bibasilar crackles) Cardiovascular Rate/Rhythm: regular rate and regular rhythm; not tachycardic Heart Sounds: normal S1 and normal S2; no murmur Extremities: + edema ( trace to 1+ edema bilaterally) Gastrointestinal (Abdomen) Inspection/Auscultation: normal bowel sounds; abdomen not distended Percussion/Palpation: abdomen soft; abdomen nontender Neurologic normal touch/pain/proprioception and moves all extremities; no focal motor d eficits Lymphatic no cervical or axillary lymphadenopathy Discharge Data Allergies Allergy/AdvReac Type Severity Reaction Status Date / Time No Known Allergies Allergy Verified 12/09/23 15:06 Consultations 06/22/24 06:39 ED Decision to Admit Stat 06/22/24 10:23 Consult Cardiology Routine Consult Urology Routine Ordered Studies 06/22/24 04:14 CT Abd and Pelvis [CT abd pelvis IV con only] Stat Hospital Course (1) Myocardial infarction due to demand ischemia: Presented with left upper quadrant pain and found to have elevated troponin Likely has type II NSTEMI secondary to demand ischemia Not on any aspirin and/or heparin due to pancytopenia and history of cirrhosis with gastropathy Appreciate cardiology input recommendation Denies any chest pain and/or palpitation Has had Lexiscan on 06/24/2024 and showed small area of apical ischemia. Medical management not for any further testing given significant other comorbid conditions. Will be discharged on 30 mg of isosorbide mononitrate and no aspirin and/or statin will be given Will ask for PT and OT evaluation PT recommended home health care and the patient will be discharged home this afternoon (2) Hydronephrosis due to obstruction of ureter: Presented with left upper quadrant pain and found to have obstructive left urete shara stone No evidence of UTI and blood cultures have been negative Stone is about 3 mm and is in the left distal ureter Appreciate urology input and recommendation For supportive care, pain control and medical management Will have outpatient follow-up with urologist on discharge Denies any neurological symptoms (3) Ureterolithiasis: As above (4) Alcoholic cirrhosis: History of alcoholic cirrhosis No evidence of significant ascites and/or GI bleed Pancytopenia secondary to alcoholism Hemoglobin and kidney function remain stable (5) Hypertension: (6) Hepatic encephalopathy: (7) Pancytopenia: (8) Portal hypertensive gastropathy: No evidence of GI bleed Hemoglobin remains stable at 9.4 (9) History of hepatitis C: Plan Notes from prior hospitalist: Patient 64-year-old gentleman with chronic cirrhosis and thrombocytopenia presented to the emergency room with back pain. Noted to have ureteral stone with left hydronephrosis, also noted to have significant troponin elevation. Continue to monitor patient and telemetry unit Troponins were trended and trended downward Communication with urological team, anticipate this stone will pass and no plans for urological surgical intervention at this time, continue to strain urine Communication with cardiology team, due to his history of portal hypertension, esophageal varices, thrombocytopenia, chronic anemia did not treat with full anticoagulation. Unclear if this is a type II demand ischemia type infarction. Have patient scheduled for stress test tomorrow Continue oral pain control as needed for his ureteral stone No clear source of bacterial infection, Rocephin for 3 days for possible urinary source. Then observe off antibiotics. Total Time Total Time Spent Total Time Spent (In Minutes): 40 minutes Discharge Plan Discharge Items Patient Disposition: Home - Home Health Services Reason For Visit: KIDNEY STONE Discharge Diagnosis: NSTEMI , left hydronephrosis with obstructive ureteric stone, alcoholic cirrhosis, pancytopenia Condition on Discharge: Fair Activity: Resume your previous activity Non-emergency contact: Primary Care Provider Call non-emergency contact if: you have any medication questions and your symptoms worsen Follow-up/Referrals: Najma Garcia MD [Primary Care Provider] - (Date & Time 07/01/2024 10:40 AM Provider: Billie Ramirez CRNP Family Medicine [facility] ) Diet: Heart Healthy Diet Texture: Easy to Chew Addtl Attending Provider Instructions: Please take precautions to avoid falls Take your medications as advised Absolutely no alcohol intake Do not take any aspirin and/or NSAIDs like ibuprofen, Motrin, naproxen etc. Please keep appointments with your healthcare providers Pending Studies at Discharge: No Stand-Alone Forms: My [facility], Smoking Cessation Medications and DC Order Prescriptions: New carvedilol 3.125 mg Tablet 3.125 mg PO BIDM Qty: 60 0RF isosorbide mononitrate 30 mg Tablet Extended Release 24 Hr 30 mg PO DAILY Qty: 30 0RF oxycodone 5 mg Tablet 5 mg PO Q4H PRN (Reason: pain) Qty: 12 0RF Continued oxycodone 5 mg tablet 5 mg PO Q4H PRN (Reason: moderate-severe pain) Qty: 30 0RF Rx Instructions: Picked up 06/16/24 x5 day supply sennosides [Senokot] 8.6 mg Tablet 17.2 mg PO HS 14 Days Qty: 28 1RF Rx Instructions: Unable to verify OTC meds at this date/time. docusate sodium 100 mg Capsule 100 mg PO BID 14 Days Qty: 28 1RF Rx Instructions: Unable to verify OTC meds at this date/time. multivitamin with folic acid [Daily-Josue (with folic acid)] 400 mcg Tablet 1 tab PO QAM 14 Days Qty: 14 1RF Rx Instructions: Unable to verify OTC meds at this date/time. torsemide 20 mg Tablet 20 mg PO BID 14 Days Qty: 28 1RF Rx Instructions: Unable to verify w/ Pt or pharmacy at this date/time. valacyclovir 1 gram Tablet 1,000 mg PO DAILY 14 Days Qty: 14 1RF spironolactone 100 mg Tablet 100 mg PO DAILY Qty: 14 1RF Rx Instructions: Unable to verify w/ Pt or pharmacy at this date/time. thiamine HCl (vitamin B1) 100 mg Tablet 100 mg PO DAILY 14 Days Qty: 14 1RF Rx Instructions: Unable to verify OTC meds at this date/time. Tums E-X 300 mg (750 mg) Tablet,Chewable 300 mg PO TID PRN (Reason: heart burn) Qty: 14 1RF Rx Instructions: Unable to verify OTC meds at this date/time. potassium chloride 20 mEq Packet 20 meq PO DAILY 14 Days Qty: 14 1RF Rx Instructions: Unable to verify w/ Pt or pharmacy at this date/time. baclofen 10 mg Tablet 10 mg PO TID PRN (Reason: back spasms) Qty: 20 1RF Rx Instructions: Unable to verify w/ Pt or pharmacy at this date/time. pantoprazole [Protonix] 40 mg Tablet,Delayed Release (Dr/Ec) 40 mg PO DAILY 14 Days Qty: 14 1RF Rx Instructions: Unable to verify w/ Pt or pharmacy at this date/time. folic acid 1 mg Tablet 1 mg PO DAILY 14 Days Qty: 14 1RF gabapentin 100 mg Capsule 100 mg PO BID 14 Days Qty: 28 1RF Rx Instructions: Unable to verify w/ Pt or pharmacy at this date/time. albuterol sulfate 90 mcg/actuation Hfa Aerosol Inhaler 2 puff INHALATION Q4H PRN (Reason: Shortness Of Breath Or Wheezing) Qty: 6.7 1RF lactulose [Kristalose] 20 gram Packet 20 g PO TID 14 Days Qty: 45 1RF Rx Instructions: Unable to verify w/ Pt or pharmacy at this date/time. duloxetine 60 mg capsule,delayed release(DR/EC) 60 mg PO DAILY 14 Days Qty: 14 1RF Xifaxan 550 mg tablet 550 mg PO TID 14 Days Qty: 42 1RF Rx Instructions: Last filled 03/2024 x30 day supply fluticasone propionate 50 mcg/actuation spray,suspension 1 spray INTRANASAL DAILY Discharge Orders: Discharge Order (Routine); Ordered 06/25/24 Ordered By: Marissa Bower Admission Data Admit Date/Time: 06/22/24 07:36 Attending Provider: Marissa Bower Admit Provider: Yao May Primary Care Provider: Najma Garcia Other Providers: Darshan Arevalo; Tirso Melo; Dominic Silva; Yao May Other Interventions: Discharge Summary Assessment (RN) Last Done: 06/25/24 11:44
== END 2024-06-25 13:31 | disposition home health service (06) | DRG 693 ==
LOC: SUATTDRO → ED 03:14 → SUATTDRO 07:36 → INTOOBSV 07:36 → 2E 07:36